=== PATIENT | male | born 1960 | race Caucasian/White ===

== ENCOUNTER 2023-01-10 08:17 | Outpatient (OUT) | payer OTHER, SELFPAY ==
[2023-01-10 09:01] LABS: Creatinine Urine Random 62.55 mg/dL (20.00-300.00); Microalbum Creatinine Ratio Ur 65.5 mg/g (0.0-29.9); Microalbumin Urine Random 4.1 mg/dL (<=30.0)
== END 2023-01-10 08:18 | disposition home or self-care (01) ==
PROVIDERS: PCP Internal Medicine
DX: I50.22 Chronic systolic (congestive) heart failure (principal); E11.65 Type 2 diabetes mellitus with hyperglycemia; E53.8 Deficiency of other specified B group vitamins
CPT/HCPCS: 36415; 80076; 82043; 82570; 82607

== ENCOUNTER 2023-01-10 08:18 | Outpatient (OUT) | payer OTHER, SELFPAY ==
[2023-01-10 09:46] LABS: Alanine Aminotransferase 47 U/L (16-63); Albumin Globulin Ratio 0.8; Albumin Level 3.4 g/dL (3.4-5.0); Alkaline Phosphatase 108 U/L (46-116); Aspartate Amino Transferase 27 U/L (15-37); Bilirubin Direct 0.1 mg/dL (0.0-0.2); Bilirubin Total 0.4 mg/dL (0.2-1.0); Globulin 4.3 g/dL; Total Protein 7.7 g/dL (6.4-8.2)
== END 2023-01-10 08:19 | disposition home or self-care (01) ==
PROVIDERS: PCP Internal Medicine; Visit Provider Nurse Practitioner
DX: I50.22 Chronic systolic (congestive) heart failure (principal)
CPT/HCPCS: 36415; 80076

== ENCOUNTER 2023-01-20 16:17 | Outpatient (OUT) | payer OTHER, SELFPAY ==
--- NOTE | 2023-01-20 16:38 | XR_ITS ---
The [address] [address] Patient Name: CADEN WILLS MRN: [id number] date: 1960 Sex: M Assigned Patient Location: [facility] Current Patient Location: Accession/Order Number: [id number] Exam Date: 01/20/2023 16:30 Report Date: 01/21/2023 13:44 At the request of: SJ ACEVES Procedure: XR finger RT min 2V EXAM: XR finger RT min 2V HISTORY: CRUSHING INJURY OF RIGHT INDEX FINGER COMPARISON: None. TECHNIQUE: 3 views FINDINGS: Subcutaneous soft tissue edema. No fracture, dislocation, subluxation, osseous lesion or radiodense foreign body. Osteophytes of the distal phalanx. Joint spaces are otherwise unremarkable for patient's age. XR/XR finger RT min 2V IMPRESSION: No visualized acute abnormality Electronically authenticated by: STORM BELTRAN Date: 01/21/2023 13:44
== END 2023-01-20 16:18 | disposition home or self-care (01) ==
LOC: RAD 16:19
PROVIDERS: PCP Internal Medicine; Visit Provider Internal Medicine
DX: S67.190A Crushing injury of right index finger, initial encounter (principal)
CPT/HCPCS: 73140

== ENCOUNTER 2023-02-21 15:00 | Outpatient (OUT) | payer OTHER, SELFPAY | END 2023-02-21 15:01 | disposition home or self-care (01) | LOC: WC 15:01 | PROVIDERS: PCP Internal Medicine; Visit Provider Podiatrist Foot & Ankle Surgery | DX: E11.621 Type 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 with foot ulcer (principal); L97.522 Non-pressure chronic ulcer of other part of left foot with fat layer exposed | CPT/HCPCS: 11042; G0463 ==

== ENCOUNTER 2023-03-21 09:23 | Outpatient (OUT) | payer OTHER, SELFPAY | END 2023-03-21 09:24 | disposition home or self-care (01) | LOC: WC 09:23 | PROVIDERS: PCP Internal Medicine; Visit Provider Podiatrist Foot & Ankle Surgery | DX: E11.621 Type 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 with foot ulcer (principal); L97.522 Non-pressure chronic ulcer of other part of left foot with fat layer exposed | CPT/HCPCS: 11042 ==

== ENCOUNTER 2023-04-18 09:54 | Outpatient (OUT) | payer OTHER, SELFPAY ==
--- OUTSIDE RECORDS SUMMARY | 2023-04-18 09:58 | XMS_ITS | CCD ---
Author Name Unknown Address [address] [place] [address] Organization [facility] Care Team Providers Care Sales And Service Technician Name Role Phone Yamilex Gottlieb Unavailable Celestina Greene Unavailable DO Fahad Salinas Primary Care Provider [phone] JAKE Gottlieb Attending Provider [phone] F[address]ad Sal[address] Un[address] DR FAHAD SALINAS Primary Care Unavailable VICKEY LANE Attending Unavailable VICKEY LANE Admitting Unavailable DARNELL OVALLE Attending Unavailable DARNELL OVALLE Admitting Unavailable BALL, DR GUSTAFSON Primary Care Unavailable WEST, DR STORM Coffey Consulting Unavailable DARNELL OVALLE Consulting Unavailable BALL, DR GUSTAFSON Admitting Unavailable BALL, DR GUSTAFSON Primary Care Unavailable BALL, DR GUSTAFSON Attending Unavailable HIGHLANDERDAMIAN Admitting Unavailable BALL, DR GUSTAFSON Primary Care Unavailable HIGHLDAMIAN SEGUNDO Attending Unavailable HIGHLDAMIAN SEGUNDO Attending Unavailable YOLA, DR GUSTAFSON Primary Care Unavailable DAMIAN ONTIVEROS Admitting Unavailable BALL, DR GUSTAFSON Primary Care Unavailable MOUKARBEL, DR COTTRELL Attending Unavailable MOUKARBEL, DR COTTRELL Admitting Unavailable REQUEST, DR GUZMAN LISTED Consulting Unavaila ble BALL, DR GUSTAFSON Primary Care Unavailable MOUKARBEL, DR COTTRELL Consulting Unavailable MOUKARBEL, DR COTTRELL Attending Unavailable MOUKARBEL, DR COTTRELL Admitting Unavailable MOUKARBEL, DR COTTRELL Admitting Unavailable MOUKARBEL, DR COTTRELL Attending Unavailable BALL, DR GUSTAFSON Primary Care Unavailable BALL, DR GUSTAFSON Primary Care Unavailable MOUKARBEL, DR COTTRELL Attending Unavailable MOUKARBEL, DR COTTRELL Admitting Unavailable BALL, DR GUSTAFSON Consulting Unavailable BALL, DR GUSTAFSON Primary Care Unavailable MOUKARBEL, DR COTTRELL Admitting Unavailable MOUKARBEL, DR COTTRELL Consulting Unavailable MOUKARBEL, DR COTTRELL Attending Unavailable BALL, DR GUSTAFSON Primary Care Unavailable BALL, DR GUSTAFSON Attending Unavailable BALL, DR GUSTAFSON Admitting Unavailable BALL, DR GUSTAFSON Admitting Unavailable BALL, DR GUSTAFSON Primary Care Unavailable BALL, DR GUSTAFSON Consulting Unavailable BALL, DR GUSTAFSON Attending Unavailable Zieblindsey, Heavenly Consulting Unavailable BALL, DR GUSTAFSON Primary Care Unavailable MISC, DR PARRY Consulting Unavailable MISC, DR PARRY Attending Unavailable MISC, DR PARRY Admitting Unavailable BALL, DR GUSTAFSON Primary Care Unavailable DOMINGO, VICKEY Admitting Unavailable DOMINGO, VICKEY Attending Unavailable Zieblindsey, Heavenly Consulting Unavailable DOMINGO, VICKEY Consulting Unavailable BALL, DR GUSTAFSON Primary Care Unavailable MOUKARBEL, DR COTTRELL Consulting Unavailable MOUKARBCHAPO, DR COTTRELL Attending Unavailable MOUKAROSIEEL, DR COTTRELL Admitting Unavailable HIGHLANDER, DAMIAN Medrano Admitting Unavailable BALL, DR GUSTAFSON Primary Care Unavailable KAREEN, DAMIAN Medrano Attending Unavailable MOSAURABH, SIMBA Attending Unavailable ROBYN NEGRON Attending Unavailable RESEARCH, COORDINATOR Attending Unavailmicki CURRAN, SIMBA Attending Unavailable JOCE HOOKS Attending Unavailable Yarelis Santacruz Unavailable Yamilex Gottlieb Attending Unavailable Yamilex Gottlieb Admitting Unavailable Yola, Fahad Primary Care Unavailable YAMILEX GOTTLIEB Primary Care Physician YAMILEX GOTTLIEB Referring Unavailable Isaak HACKETT Attending Unavailable Allergies Allergy Classification Reported Allergen(s) Allergy Type Date of Onset Reaction(s) Facility (20 sources) empagliflozin Drug Allergy uti [facility] Other (20 sources) icosapent ethyl Drug Allergy n/v [facility] Other Medications Current Medications Medication Drug Class(es) Dates Sig (Normalized) Sig (Original) amiodarone hydrochloride 200 mg oral tablet (16 sources) Antiarrhythmic take 1 tablet by mouth every twenty-four hours Amiodarone HCl 200 MG 1 tablet Orally Once a day Active amoxicillin 875 mg / clavulanate 125 mg oral tablet (2 sources) Penicillin-class Antibacterial Start: 01-20-2023 take 1 tablet by mouth every twelve hours Amoxicillin-Pot Clavulanate 875-125 MG 1 tablet Orally every 12 hrs for 7 days Jan, Active apixaban 5 mg oral tablet (16 sources) Factor Xa Inhibitor take 1 tablet by mouth every twelve hours Eliquis 5 MG 1 tablet Orally Twice a day Active aspirin 81 mg delayed release oral tablet (17 sources) Platelet Aggregation Inhibitor, Nonsteroidal Anti-inflammatory Drug Start: 06-26-2018 Aspirin (Lucio Low Dose Aspirin) 81 mg Tablet,Delayed Release (Dr/Ec) Active 81 MG PO Daily June 26, 2018 12:00am take 1 tablet by mouth once benigno y Aspirin 81 81 MG 1 tablet Orally Once a day Active take 1 tablet by mouth once benigno y Aspirin 81 81 MG 1 tablet Orally Once a day Active atenolol 25 mg oral tablet (11 sources) beta-Adrenergic Radhika Start: 06-26-2018 Atenolol Active 25 MG PO 1200 June 26, 2018 12:00am atorvastatin 80 mg oral tablet (17 sources) HMG-CoA Reductase Inhibitor Start: 03-22-2023 atorvastatin 80 mg Tab Refills(s) 0 Start Date: 03/22/23 Status: Ordered bumetanide 1 mg oral tablet (2 sources) Loop Diuretic take 1 tablet by mouth once daily Bumex 1 MG 1 tablet Orally Once a day Active canagliflozin 300 mg oral tablet (1 source) Sodium-Glucose Cotransporter 2 Inhibitor Start: 06-26-2018 Canagliflozin Active 300 MG PO 1200 June 26, 2018 12:00am cinnamon bark 500 mg oral capsule (1 source) Start: 06-26-2018 take 1 capsule by mouth twice daily Cinnamon Bark (Cinnamon) 500 mg Capsule Active 500 MG PO Twice daily June 26, 2018 12:00am clopidogrel 75 mg oral tablet (12 sources) P2Y12 Platelet Inhibitor Start: 03-22-2023 clopidogrel 75 mg Tab Refills(s) 0 Start Date: 03/22/23 Status: Ordered Start: 06-26-2018 Clopidogrel Ac tive 75 MG PO 1200 June 26, 2018 12:00am dapagliflozin 10 mg oral tablet (17 sources) Sodium-Glucose Cotransporter 2 Inhibitor Start: 03-22-2023 Farxiga 10 mg oral tablet Refills(s) 0 Start Date: 03/22/23 Status: Ordered famotidine 40 mg oral tablet (14 sources) Histamine-2 Receptor Antagonist Start: 05-04-2022 take 1 tablet by mouth every twenty-four hours Famotidine 40 MG 1 tablet at bedtime Orally Once a day Apr, Active fenofibrate 145 mg oral tablet (11 sources) Peroxisome Proliferator Receptor alpha Agonist Start: 06-26-2018 Fenofibrate Nanocrystallized Active 145 MG PO 1200 June 26, 2018 12:00am Fish Oils (16 sources) Fish Oil Active FreeStyle Shivani 2 Sensor - (19 sources) Start: 01-06-2021 FreeStyle Shivani 2 Sensor - as directed In Vitro Change Every 14 days for 84 days Dec, Active FreeStyle Shivani 2 Sensor - CHANGE EVERY 14 DAYS for 84 Active hydroCHLOROthiazide 25 mg oral tablet (11 sources) Thiazide Diuretic Start: 06-26-2018 Hydrochlorothiazide Active 25 MG PO 1200 June 26, 2018 12:00am 3 ml insulin aspart, human 100 unt/ml pen injector (15 sources) Insulin Analog Start: 06-26-2018 Insulin Aspart U-100 Active June 26, 2018 12:00am NovoLOG FlexPen 100 UNIT/ML 32 units ac breakfast and 38 units ac supper plus corrective scale 1:10 ac tid (hs if >200 half dose) titrate up to 90 units/day) Subcutaneous As Directed for 90 day(s) Not-Taking 3 ml insulin glargine 300 unt/ml pen injector (20 sources) Insulin Analog Start: 03-22-2023 Toujeo Max Rosanna oStar 300 units/mL subcutaneous solution Refills(s) 0 Start Date: 03/22/23 Status: Ordered Start: 06-26-2018 inject 60 [IU] by gorman bcutaneous injection once daily at bedtime Insulin Glargine U-300 Conc Active 60 UNIT SUBCUT Daily at bedtime June 26, 2018 12:00am Toujeo Max SoloS tar 300 UNIT/ML 72 units Subcutaneous qd (titrate up to 90 units/day) Active Toujeo Max SoloS tar 300 UNIT/ML 70 units Subcutaneous qd for 90 days (titrate up to max 90 units/day) Active Toujeo Max SoloS tar 300 UNIT/ML 65 units Subcutaneous qd (titrate up to 90 units/day) Active Toujeo SoloStar 300 UNIT/ML 70 units Subcutaneous At bedtime (titrate up to 80/day) Not-Taking Toujeo Max SoloS tar 300 UNIT/ML 84 units Subcutaneous qd for 90 day(s) (titrate up to 90 units/day) Active Toujeo SoloStar 300 UNIT/ML 68 units Subcutaneous At bedtime (titrate up to 70/day) Active Toujeo SoloStar 300 UNIT/ML 66 units Subcutaneous qhs for 90 day(s) (titrate up to 70 units/day) Active Toujeo SoloStar 300 UNIT/ML 66 units Subcutaneous At bedtime (titrate up to 70/day) Active 3 ml insulin lispro-aabc 100 unt/ml pen injector (20 sources) Insulin Analog Start: 03-22-2023 Lyryan KwikPe n 100 units/mL injectable solution Refills(s) 0 Start Date: 03/22/23 Status: Ordered Start: 05-04-2021 Lyumjhv KwikPe n 100 UNIT/ML 32 units ac breakfast , 38 supper plus ISS 1: 10 ac, (hs if >200 half dose) (expect daily dose 80 units) Subcutaneous ACHS Apr, Active LEVEMIR FLEXTOUCH 100 UNIT/ ML (4 sources) LEVEMIR FLEXTOUC H 100 UNIT/ ML 42 units Subcutaneous bid Active lisinopril 10 mg oral tablet (11 sources) Angiotensin Converting Enzyme Inhibitor Start: 06-27-19 Lisinopril Active 10 MG PO 1200 June 26, 2018 12:00am magnesium oxide 400 mg oral tablet (16 sources) take 1 tablet by mouth every twenty-four hours Magnesium Oxide 400 MG 1 tablet as needed Orally Once a day Active Magnesium, Zinc, Vitamin D (1 source) Start: 06-27-19 take 1 tablet by mouth once daily at bedtime Magnesium, Zinc, Vitamin D Active 1 TAB PO Daily at bedtime June 26, 2018 12:00am metFORMIN hydrochloride 500 mg oral tablet (20 sources) Biguanide Start: 03-22-20 MetFORMIN (Eqv-Glucophage XR) 500 mg oral tablet, extended release Refills(s) 0 Start Date: 03/22/23 Status: Ordered Start: 06-26-2018 Metformin (Glu cophage) 500 mg Tablet Active 500 MG PO 0300 June 26, 2018 12:00am Start: 06-26-2018 Metformin (Glu cophage) 500 mg Tablet Active 1000 MG PO 1800 June 26, 2018 12:00am take 500 mg by mouth three times daily metFORMIN HCl ER 500 MG 500 mg Orally tid Active take 1 tablet by soledad twice daily metFORMIN HCl ER 500 MG TAKE 1 TABLET BY MOUTH TWICE A DAY for 90 Active take 500 mg by mouth four times daily metFORMIN HCl ER 500 MG 500 mg Orally qid Active 24 hr metoprolol succinate 100 mg extended release oral tablet (17 sources) beta-Adrenergic Radhika Start: 03-22-2023 take 1 mg by mouth once daily metoprolol 100 mg ER Tab mg tab(s), Oral, Daily, Refills(s) 0 Start Date: 03/22/23 Status: Ordered Multivitamin preparation (1 source) Start: 06-26-2018 take 1 tablet by mouth once daily Multivitamin Active 1 TAB PO Daily June 26, 2018 12:00am niacin 500 mg oral tablet (1 source) Nicotinic Acid Start: 06-26-2018 take 500 mg by mouth once daily at bedtime Niacin Active 500 MG PO Daily at bedtime June 26, 2018 12:00am pantoprazole 40 mg delayed release oral tablet (14 sources) Proton Pump Inhibitor Start: 03-22-[address] Tab Refills(s) 0 Start Date: 03/22/23 Status: Ordered Start: 06-17-2022 Pantoprazole S odium 40 MG 1 tablet Orally Once a day, take on empty stomach followed in 30 minutes w/ bkfst for 30 days Jun, Active sacubitril 24 mg / valsartan 26 mg oral tablet (17 sources) Angiotensin 2 Receptor Radhika Start: 03-22-2023 Entresto 24 mg-26 mg oral tablet Refill(s) 0 Start Date: 03/22/23 Status: Ordered ENTRESTO 24 mg/2 6 mg 1 orally twice a day Active sildenafil 100 mg oral tablet (10 sources) Phosphodiesterase 5 Inhibitor Start: 10-17-2022 take 1 tablet by mouth once daily as needed Sildenafil Citrate 100 MG 1 tablet Orally Once a day, as needed for ED for 30 days Oct, Active spironolactone 25 mg oral tablet (17 sources) Aldosterone Antagonist Start: 03-22-2023 spironolactone 25 mg Tab Refills(s) 0 Start Date: 03/22/23 Status: Ordered tiZANidine 4 mg oral tablet (11 sources) Central alpha-2 Adrenergic Agonist Start: 03-22-2023 tiZANidine 4 mg Tab Refills(s) 0 Start Date: 03/22/23 Status: Ordered Completed/Discontinued Medications Medication Drug Class(es) Dates Sig (Normalized) Sig (Original) ciprofloxacin 500 mg oral tablet (5 sources) Quinolone Antimicrobial Start: 08-11-2021 take 1 tablet by mouth every twelve hours Cipro 500 MG 1 tablet Orally every 12 hrs for 7 days Jul, Not-Taking empagliflozin 10 mg oral tablet (10 sources) Sodium-Glucose Cotransporter 2 Inhibitor take 1 tablet by mouth every twenty-four hours Jardiance 10 MG 1 tablet Orally Once a day for 30 day(s) Not-Taking fluconazole 150 mg oral tablet (10 sources) Azole Antifungal Start: 08-24-2020 Diflucan 150 MG 1 tablet Orally Once, repeat in 3 days if needed for 3 days August, Not-Taking pioglitazone 30 mg oral tablet (13 sources) Peroxisome Proliferator Receptor alpha Agonist, Peroxisome Proliferator Receptor gamma Agonist, Thiazolidinedione take 1 tablet by mouth once daily at bedtime Pioglitazone HCl 30 MG 1 tablet Orally Once a day at hs Not-Taking Problems Active Problems Problem Classification Problem Date Documented Da te Episodic/Chronic Abdominal pain (1 source) Epigastric pain Episodic Acute myocardial infarction (6 sources) Non-ST elevation (NSTEMI) myocardial infarction; 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: [NON-ST ELEVATION MYOCARDIAL INFARCT] Onset: 01-08-2022 Chronic Administrative/social admission (20 sources) Dietary management surveillance; 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: [Dietary counseling and surveillance] Onset: 03-24-2021 Resolved: 10-21-2021 Episodic Cardiac dysrhythmias (20 sources) Atrial fibrillation; 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: [Unspecified atrial fibrillation] Onset: 2022 Chronic Chronic ulcer of skin (1 source) Non-pressure chronic ulcer of other part of left foot limited to breakdown of skin; 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: [N-PRS ULCR OTH PRT LT FT BRKDWN SKN] Onset: 09-20-2021 Chronic Congestive heart failure; nonhypertensive (20 sources) Heart failure with normal ejection fraction; 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: [Unspecified diastolic (congestive) heart failure] Onset: 01-31-2022 Chronic Coronary atherosclerosis and other heart disease (20 sources) Coronary arteriosclerosis; 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: [Atherosclerotic heart disease of [place] coronary artery without angina pectoris] Onset: 01-06-2022 Chronic Crushing injury or internal injury (2 sources) Crushing injury of right index finger, initial encounter Episodic Diabetes mellitus with complications (20 sources) Hyperglycemia due to type 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; 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: [Type 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 with hyperglycemia] Onset: 01-06-2021 Resolved: 10-21-2021 Chronic Diabetes mellitus without complication (20 sources) Type 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 without complication; 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: [Type 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 without complications] 03-22-2023 Chronic Disorders of lipid metabolism (20 sources) Hypertriglyceridemia ; 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: [Pure hyperglyceridemia] Onset: 03-24-2021 Resolved: 10-21-2021 Chronic Esophageal disorders (13 sources) Gastro-esophageal reflux disease with esophagitis; 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: [Gastroesophageal reflux disease with esophagitis without hemorrhage] Chronic Essential hypertension (20 sources) Essential hypertension; 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: [Essential (primary) hypertension] Onset: 03-24-2021 Resolved: 10-21-2021 Chronic Genitourinary congenital anomalies (2 sources) Congenital buried penis; 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] Onset: 03-22-2023 Chronic Genitourinary symptoms and ill-defined conditions (14 sources) Dysuria; 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: [Hematuria, unspecified] Onset: 08-11-2021 Resolved: 08-11-2021 Episodic Inflammatory conditions of male genital organs (16 sources) Balanitis; 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: [Balanitis] Onset: 03-22-2023 Chronic Inflammatory conditions of male genital organs (14 sources) Acute prostatitis; 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: [Acute prostatitis] Episodic Intestinal infection (1 source) Balantidiasis 03-22-2023 Episodic Nutritional deficiencies (20 sources) Vitamin D deficiency; 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: [Vitamin D deficiency, unspecified] Chronic Nutritional deficiencies (5 sources) Deficiency of other specified B group vitamins Onset: 10-21-2021 Resolved: 10-21-2021 Episodic Open wounds of extremities (14 sources) Open wound of toe(s) with damage to nail; 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: [Unspecified open wound of unspecified toe(s) with damage to nail, subsequent encounter] Episodic Other aftercare (20 sources) Long-term current use of insulin; 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: [retirement (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] Episodic Other aftercare (8 sources) retirement (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; 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: [DETENTION CURRENT USE OF INSULIN] Onset: 03-24-2021 Resolved: 10-21-2021 Episodic Other aftercare (1 source) Long-term current use of anticoagulant; 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] Onset: 03-22-2023 Episodic Other and ill-defined heart disease (1 source) Heart disease 03-22-2023 Chronic Other connective tissue disease (15 sources) Pain in right foot; 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: [Pain in right foot] Onset: 02-24-2022 Episodic Other diseases of veins and lymphatics (14 sources) Peripheral venous insufficiency; 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: [Venous insufficiency (chronic) (peripheral)] Episodic Other diseases of veins and lymphatics (2 sources) Venous insufficiency (chronic) (peripheral) Episodic Other hereditary and degenerative nervous system conditions (1 source) Other idiopathic peripheral autonomic neuropathy; 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: [OTH IDIO PERIPH AUTONOM NEUROPATHY] Onset: 09-20-2021 Chronic Other lower respiratory disease (1 source) Chronic pulmonary edema; 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: [CHRONIC PULMONARY EDEMA] Onset: 01-06-2022 Chronic Other male genital disorders (10 sources) Erectile dysfunction co-occurrent and due to arterial insufficiency; 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: [Erectile dysfunction due to arterial insufficiency] Chronic Other male genital disorders (2 sources) Erectile dysfunction due to arterial insufficiency Chronic Other male genital disorders (12 sources) Male erectile dysfunction, unspecified; 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: [Erectile dysfunction] Onset: 03-22-2023 Chronic Other male genital disorders (2 sources) Phimosis; 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: [Phimosis] Onset: 03-22-2023 Episodic Other non-traumatic joint disorders (14 sources) Arthropathy associated with a neurological disorder; 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: [Charcot's joint, left ankle and foot] Chronic Other nutritional; endocrine; and metabolic disorders (20 sources) Obese class II; 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: [Body mass index (BMI) 37.0-37.9, adult] Chronic Other nutritional; endocrine; and metabolic disorders (20 sources) Obesity; 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: [Obesity, unspecified] Chronic Other nutritional; endocrine; and metabolic disorders (20 sources) Body mass index 40+ - severely obese; 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: [Body mass index (BMI) 40.0-44.9, adult] Chronic Other nutritional; endocrine; and metabolic disorders (5 sources) Body mass index (BMI) 40.0-44.9, adult; 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: [BODY MASS INDEX BMI 40.0-44.9 ADULT] Onset: 03-24-2021 Resolved: 10-21-2021 Chronic Other nutritional; endocrine; and metabolic disorders (14 sources) Morbid obesity; 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: [Morbid (severe) obesity due to excess calories] Chronic Other nutritional; endocrine; and metabolic disorders (3 sources) Body mass index (BMI) 39.0-39.9, adult Chronic Other nutritional; endocrine; and metabolic disorders (1 source) Obesity, unspecified; 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: [OBESITY UNSPECIFIED] Onset: 01-06-2022 Chronic Other screening for suspected conditions (not mental disorders or infectious disease) (2 sources) Encounter for screening for malignant neoplasm of prostate Episodic Skin and subcutaneous tissue infections (2 sources) Cutaneous abscess of right hand Episodic Spondylosis; intervertebral disc disorders; other back problems (15 sources) Lumbosacral spondylosis with radiculopathy; 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: [Other spondylosis with radiculopathy, lumbosacral region] Onset: 11-01-2021 Chronic Superficial injury; contusion (2 sources) Blister (nonthermal), left great toe, initial encounter; 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: [Contusion of unspecified finger with damage to nail, initial encounter] Episodic Unclassified (1 source) CONTACT W/AND (SUSP) EXPOS COVID-19; 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: [CONTACT W/AND (SUSP) EXPOS COVID-19] Onset: 01-06-2022 Unclassified (1 source) Drug therapy finding 03-22-2023 Past or Other Problems Problem Classification Problem Date Documented Da te Episodic/Chronic Complications of surgical procedures or medical care (2 sources) Other postprocedural complications and disorders of the circulatory system, not elsewhere classified; 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: [Other postprocedural complications and disorders of the circulatory system, not elsewhere classified] Onset: 2022 Episodic Coronary atherosclerosis and other heart disease (8 sources) Presence of aortocoronary bypass graft; 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: [PRESENCE AORTOCORONARY BYPASS GRAFT] Onset: 01-31-2022 Episodic Esophageal disorders (3 sources) Esophageal disorders Mycoses (1 source) Tinea unguium; 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: [TINEA UNGUIUM] Onset: 09-20-2021 Episodic Nonspecific chest pain (3 sources) Chest pain, unspecified; 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: [CHEST PAIN UNSPECIFIED] Onset: 12-31-2021 Episodic Other aftercare (1 source) retirement (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 of oral hypoglycemic drugs; 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: [DETENTION USE ORAL HYPOGLYCEMIC DX] Onset: 01-06-2022 Episodic Other connective tissue disease (3 sources) Pain in right foot; 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: [PAIN IN RIGHT FOOT] Onset: 02-28-2022 Episodic Other connective tissue disease (1 source) Pain in left foot; 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: [PAIN IN LEFT FOOT] Onset: 09-20-2021 Episodic Other skin disorders (4 sources) Nail dystrophy; 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: [NAIL DYSTROPHY] Onset: 09-09-2021 Episodic Sprains and strains (8 sources) Strain of muscle, fascia and tendon of lower back, subsequent encounter; 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: [Strain of muscle, fascia and tendon of lower back, initial encounter] Onset: 10-29-2021 Episodic Urinary tract infections (2 sources) Urinary tract infection, site not specified Onset: 08-11-2021 Resolved: 08-11-2021 Episodic Results Test Name Value Interpretation Reference Range Facility Physician Referralon 023 Physician Referral [id number] .[id number] [facility] Physician Referralon 023 Physician Referral [id number] .[id number] [facility] Physician Referralon 023 Physician Referral [id number] .[id number] Screenson 03-23-2023 Screens [id number] .[id number] Ambulatory Visit Summaryon 1 05-23-2022 Ambulatory Visit Summary CADEN WILLS :1960 Visit Date:03/22/2023 Ambulatory Visit Instructions Your Diagnosis ED (erectile dysfunction) Phimosis Hidden penis Balanoposthitis Anticoagulated Tests Performed Urnls Dip Stick Auto w/o Microscopy POC [id number] Your Care Team Attending Physician - Isaak HACKETT MD Primary Care Physician - YAMILEX GOTTLIEB CNP Referring Physician - YAMILEX GOTTLIEB CNP This Is Your Medications List Contact prescribing physician if questions or concerns atorvastatin (atorvastatin 80 mg Tab) clopidogrel (clopidogrel 75 mg Tab) dapagliflozin (Farxiga 10 mg oral tablet) insulin glargine (Toujeo Max SoloStar 300 units/mL subcutaneous solution) insulin lispro (Lyumjev KwikPen 100 units/mL injectable solution) metformin (MetFORMIN (Eqv-Glucophage XR) 500 mg oral tablet, extended release) metoprolol (metoprolol 100 mg ER Tab) pantoprazole (Pantoprazole [address] Tab) sacubitril-valsartan (Entresto 24 mg-26 mg oral tablet) spironolactone (spironolactone 25 mg Tab) tizanidine (tiZANidine 4 mg Tab) What to do next You Need to Schedule the Following Appointments Follow Up with ROXANN BARR, Isaak Sharma, ALICIA When: Where: [facility] [employer] [address] [place] [id number] Someone Will Contact You Regarding These Appointments [facility] [place] Ref[place], Urology, Dr. Duran, 03/22/23 11:49:00 EST, Phimosis Normal [facility] Patient Educationon 03-22-20 Patient Education Urology Erectile Dysfunction Erectile dysfunction (ED) is the inability to get or keep an erection in order to have sexual intercourse. ED is considered a symptom of an underlying disorder and is not considered a disease. ED may include: ? Inability to get an erection. ? Lack of enough hardness of the erection to allow penetration. ? Loss of erection before sex is finished. What are the causes? This condition may be caused by: ? Physical causes, such as: ? Artery problems. This may include heart disease, high blood pressure, atherosclerosis, and diabetes. ? Hormonal problems, such as low testosterone. ? Obesity. ? Nerve problems. This may include back or pelvic injuries, multiple sclerosis, Parkinson's disease, spinal cord injury, and stroke. ? Certain medicines, such as: ? Pain relievers. ? Antidepressants. ? Blood pressure medicines and water pills (diuretics). ? Cancer medicines. ? Antihistamines. ? Muscle relaxants. ? Lifestyle factors, such as: ? Use of drugs such as marijuana, cocaine, or opioids. ? Excessive use of alcohol. ? Smoking. ? Lack of physical activity or exercise. ? Psychological causes, such as: ? Anxiety or stress. ? Sadness or depression. ? Exhaustion. ? Fear about sexual performance. ? Guilt. What are the signs or symptoms? Symptoms of this condition include: ? Inability to get an erection. ? Lack of enough hardness of the erection to allow penetration. ? Loss of the erection before sex is finished. ? Sometimes having normal erections, but with frequent unsatisfactory episodes. ? Low sexual satisfaction in either partner due to erection problems. ? A curved penis occurring with erection. The curve may cause pain, or the penis may be too curved to allow for intercourse. ? Never having nighttime or morning erections. How is this diagnosed? This condition is often diagnosed by: ? Performing a physical exam to find other diseases or specific problems with the penis. ? Asking you detailed questions about the problem. ? Doing tests, such as: ? Blood tests to check for diabetes mellitus or high cholesterol, or to measure hormone levels. ? Other tests to check for underlying health conditions. ? An ultrasound exam to check for scarring. ? A test to check blood flow to the penis. ? Doing a sleep study at home to measure nighttime erections. How is this treated? This condition may be treated by: ? Medicines, such as: ? Medicine taken by mouth to help you achieve an erection (oral medicine). ? Hormone replacement therapy to replace low testosterone levels. ? Medicine that is injected into the penis. Your health care provider may instruct you how to give yourself these injections at home. ? Medicine that is delivered with a short applicator tube. The tube is inserted into the opening at the tip of the penis, which is the opening of the urethra. A tiny pellet of medicine is put in the urethra. The pellet dissolves and enhances erectile function. This is also called MUSE (medicated urethral system for erections) therapy. ? Vacuum pump. This is a pump with a ring on it. The pump and ring are placed on the penis and used to create pressure that helps the penis become erect. ? Penile implant surgery. In this procedure, you may receive: ? An inflatable implant. This consists of cylinders, a pump, and a reservoir. The cylinders can be inflated with a fluid that helps to create an erection, and they can be deflated after intercourse. ? A semi-rigid implant. This consists of two silicone rubber rods. The rods provide some rigidity. They are also flexible, so the penis can both curve downward in its normal position and become straight for sexual intercourse. ? Blood vessel surgery to improve blood flow to the penis. During this procedure, a blood vessel from a different part of the body is placed into the penis to allow blood to flow around (bypass) damaged or blocked blood vessels. ? Lifestyle changes, such as exercising more, losing weight, and quitting smoking. Follow these instructions at home: Medicines ? Take qifc-[id number]-osflatg and prescription medicines only as told by your health care provider. Do not increase the dosage without first discussing it with your health care provider. ? If you are using self-injections, do injections as directed by your health care provider. Make sure you avoid any veins that are on the surface of the penis. After giving an injection, apply pressure to the injection site for 5 minutes. ? Talk to your health care provider about how to prevent headaches while taking ED medicines. These medicines may cause a sudden headache due to the increase in blood flow in your body. General instructions ? Exercise regularly, as directed by your health care provider. Work with your health care provider to lose weight, if needed. ? Do not use any products that contain nicotine or tobacco. These products include cig (more content not included)... Normal [facility] Urology Office/Clinic Noteon 03-22-2023 Urology Office/Clinic Note HPI Staff 63 yo male referred by Yamilex Gottlieb CNP for ED. Never seen in our office before pt. states he had a heart attack in 2021 had spent 15 days in the hospital had bypass x5 came home with a uti and states after that he has been having issues with ED. Patient is unsure if he is circumcised states the skin on his penis is hard and would crack and bleed when he first came home Dysuria: no Incomplete bladder emptying: no Hematuria: no Frequency: no Urgency: severe Nocturia: 2x Stream: weaker stream Leaking: no Post void dripping: no Wearing pads/ Depends: no Urge incontinence: no Stress incontinence: no Incontinence without Sensory Awareness: no Abdominal pain: no Flank pain: no Sexual complaints: yes History of Present Illness Tests reviewed: reviewed UA and external records. I have reviewed the previous health record information and history for this patient from external provider. I have reviewed and verified the staff HPI to be accurate for this encounter. There have been no associated fever, chills, flank pain, or blood in the urine. Denies any urinary infections since last encounter. Review of Systems ROS - Provider Constitutional: denies weight loss, denies hot flashes. Eyes: denies eye problems. Gastrointestinal: denies nausea, denies vomiting. Cardiovascular: denies chest pain or angina. Integumentary: no dryness Musculoskeletal: denies musculoskeletal symptoms. ENMT: denies otolaryngeal symptoms. Respiratory: no shortness of breath. Heme/Lymph: denies easy bleeding tendency, denies easy bruising tendency. Psychiatric: no confusion, no anxiety. Genitourinary: See HPI. Physical Exam General Appearance: alert, no distress, well nourished, well developed male. Head: normocephalic . Eyes: normal orbit and globe. ENMT: normal examination of external ears. Chest: Lungs CTA, respirations non labored. Cardiovascular: regular rate and rhythm. Abdomen: soft, non distended, no tenderness, no mass or organomegaly, no hernia. Pannus present. Genitourinary: severe phimosis. Flank Pain: none. Bladder: nonpalpable. Penis: Prominent suprapubic fat pad. Unable to retract foreskin secondary to phimosis. Unable to evaluate the glans penis or shaft. Lymph Nodes: unremarkable palpation of the cervical area. Skin: warm, dry, no bruising. Psychiatric: cooperative, affect appropriate for age, normal judgement, euthymic mood. Assessment/Plan 63 yo male referred by Yamilex Gottlieb CNP for ED. Never seen in our office before IPSS 14 1. ED (erectile dysfunction) (N52.9: Male erectile dysfunction, unspecified) Pt states he had a heart attack in December and spent 15 days in the hospital, s/p bypass x5. Pt came home with a UTI and states after that he has been having issues with ED. Has tried Sildenafil 100mg, has only taken once and minimal improvement. Pt is diabetic which attributes to ED. Discussed options for ED, including oral medications, erection pumps, MUSE intraurethral pellet, intracorporal injection therapy, and surgical options. Pt understands phimosis and hidden penis needs to be addressed prior to treating ED. Pt to research penile ring. Recommended weight loss. 2. Phimosis (N47.1: Phimosis) Pt states he is unsure if is circumcised. Reports the skin on his penis is hard and will not retract. Phimosis started after bypass. Diabetes exacerbates sx. PE: severe phimosis, unable to retract foreskin. Hidden penis. Recommended referral to Dr. Duran. 3. 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 S/p bypass 12/2022 due to heart attack. Elevated risk for periop complications Overall this 63-year-old white male with diabetes, hypertension, and obesity, has had difficulties with the phallus ever since his coronary artery bypass procedure, after which she had a urinary tract infection. His foreskin difficulties became exacerbated after that. Physical examination reveals a hidden penis with associated phimosis and irritated inner prepuce. Unable to retract. This will be a difficult circumcision. Is my recommendation that he be seen by Dr. Jian Duran at the [facility] for his opinion. He can utilize [id number] Monistat cream/triple antibiotic on a as needed basis. We also had extensive discussion about ED but we certainly need to get the phallus accessible. He has utilized sildenafil in the past at 100 mg with some tumescence and perhaps a ring could be applied at some point pending success with the penis/foreskin issues. We did discuss that perhaps a intracarpal injection therapy could be considered at some point 2. Await Dr. Duran's opinion. Portions of this record may have been created with voice recognition artificial intelligence software, specifically [employer] and o (more content not included)... Normal [facility] Comment on above: Result Comment: Elec tronically Signed By: Isaak HACKETT MD\.br\Date and Time Signed: 03/22/23 12:07 EST\.br\Electronically Co-Signed By: Maria M Campos\.br\Date and Time Co-Signed: 03/22/23 11:53 EST A1C HEMOGLOBINon 03-08-2023 HbA1c (Bld) [Mass fraction] 7.2 % [employer] Other Glucose - FINGER STICKon Glucose [Mass/Vol] 187 mg/dL [employer] Other HbA1c (Bld) [Mass fraction]o n 03-08-2023 A1C HEMOGLOBIN [employer] Other Orders Onlyon 01-16-2023 Orders Only [id number] Caden Wills 1960 M Date Provider Department Center 01/16/2023 ROBYN CASTILLO. Family History Problem Relation Age of Onset Coronary artery disease Father Family Status - Relation Status Age at Father Normal [facility] Office Visiton 12-06-2022 Follow-up visit [id number] Caden Wills 1960 M Date Provider Department Center 12/06/2022 ROBYN CASTILLOevue Donald Family History Problem Relation Age of Onset Coronary artery disease Father Family Status - Relation Status Age at Father Level of Service:[id number] ID OFFICE/OUTPATIENT ESTABLISHED MOD MDM 30-39 MIN Reason for Visit and Comments: Follow-up [009025] - 6 month follow up Normal [facility] A1C HEMOGLOBINon 11-24-2022 HbA1c (Bld) [Mass fraction] 6.6 % [employer] Other Glucose - FINGER STICKon Glucose [Mass/Vol] 102 mg/dL [employer] Other HbA1c (Bld) [Mass fraction]o n 11-24-2022 A1C HEMOGLOBIN [employer] Other A1C HEMOGLOBINon 08-22-2022 HbA1c (Bld) [Mass fraction] 6.5 % [employer] Other Glucose - FINGER STICKon Glucose [Mass/Vol] 159 mg/dL [employer] Other HbA1c (Bld) [Mass fraction]o n 08-22-2022 A1C HEMOGLOBIN [employer] Other Office Visiton 05-23-2022 Follow-up visit [id number] Caden Wills 1960 M Date Provider Department Center 05/23/2022 SIMBA REYEZ [facility] Family History Problem Relation Age of Onset Coronary artery disease Father Family Status - Relation Status Age at Father Level of Service:[id number] ID OFFICE/OUTPATIENT ESTABLISHED MOD MDM 30-39 MIN Reason for Visit and Comments: Coronary Artery Disease [187] Hypertension [898436] Normal [facility] A1C HEMOGLOBINon 05-19-2022 HbA1c (Bld) [Mass fraction] 6.9 % [employer] Other Glucose - FINGER STICKon Glucose [Mass/Vol] 206 mg/dL [employer] Other HbA1c (Bld) [Mass fraction]o n 05-19-2022 A[facility]C [facility]GLOBIN [facility]on 04-05-2022 37 -Proceed with previously recommended heart monitor -Discontinue Bumex, monitor swelling and weight - Continue cardiac rehab Normal [facility] Office Visiton 04-05-2022 Follow-up visit [id number] Caden Wills 1960 M Date Provider Department Center 04/05/2022 [id number] BAUTISTA [facility] Family History Problem Relation Age of Onset Coronary artery disease Father Family Status - Relation Status Age at Father Level of Service:[id number] ID OFFICE/OUTPATIENT ESTABLISHED MOD MDM 30-39 MIN Reason for Visit and Comments: Coronary Artery Disease [187] Atrial Fibrillation [80] Congestive Heart Failure [127] NSTEMI [Other] Normal [facility] UA RANDOMon 04-05-2022 Bilirubin Ql (U) Negative Normal NEGATIVE [facility] Comment on above: Performed By: #### U A #### [facility] [address] [place] [address] Dr. Jose Rojas Clarity (U) CLOUDY Abnormal CLEAR [facility] Comment on above: Performed By: #### U A #### [facility] [address] [address] [address] Jose Rojas Color (U) LT. YELLOW Normal YELLOW [facility] Comment on above: Performed By: #### U A #### [facility] [address] [address] [address] Jose Rojas Glucose Ql (U) >1000 Abnormal NEGATIVE [facility] Comment on above: Performed By: #### U A #### [facility] [address] [place] [address] Dr. Jose Rojas Hemoglobin Ql (U) MODERATE Abnormal NEGATIVE [facility] Comment on above: Performed By: #### U A #### [facility] [address] [address] [address] Jose Rojas Ketones Ql (U) Negative Normal NEGATIVE [facility] Comment on above: Performed By: #### U A #### [facility] [address] [place] [address] Dr. Jose Rojas LEUKOCYTES MODERATE Abnormal NEGATIVE [facility] Comment on above: Performed By: #### U A #### [facility] [address] [place] [address] Dr. Jose Rojas Nitrite Ql (U) Negative Normal NEGATIVE [facility] Comment on above: Performed By: #### U A #### [facility] [address] [place] [address] Dr. Jose Rojas pH (U) 5.5 [pH] Normal 5-9 [facility] Comment on above: Performed By: #### U A #### [facility] [address] [place] [address] Dr. Jose Rojas SPEC GRAVITY <=1.005 Abnormal 1.005-<=1.0 25 [facility] Comment on above: Performed By: #### U A #### [facility] [address] [place] [address] Dr. Jose Rojas UA PROTEIN Negative Normal NEGATIVE/ TRACE [facility] Comment on above: Performed By: #### U A #### [facility] [address] [place] [address] Dr. Jose Rojas Urobilinogen Qn (U) 0.2 {Ritu'U}/dL Normal 0.2 - 1. 0 [facility] Comment on above: Performed By: #### U A #### [facility] [address] [address] [address] Jose Rojas ECHOCARDIO M/2D COMPLETEon 1 05-31-2021 ECHOCARDIO M/2D COMPLETE Patient: CADEN WILLS Exam Date: 03/30/2022 : 1960 Gender:M Ordering : DR SIMBA CURRAN M.D. Admission #: [id number] Family : DR FAHAD SALINAS D.O. Order #: [id number] CLICK HERE TO VIEW EXAM ECHOCARDIOGRAM REPORT PROCEDURE: CARDIO PULMONARY ECHOCARDIO M/2D COMP INDICATIONS: NSTEMI, Chronic systolic heart failure, S/P CABG 01/07/2022, H/O Stents 2007 COMPARISON: None. DESCRIPTION: COMPLETE ECHOCARDIOGRAM Real-time transthoracic echocardiography with 2D, M-mode, spectral and color flow Doppler performed. QUALITY: Technical quality was limited. 70 273# 116/68 HR 86 Lumason not utilized at this time. LEFT VENTRICLE: Normal chamber size. LV EF: Global left ventricular systolic function is difficult to assess but appears preserved; estimated ejection fraction is 55 to 60%. Unable to accurately evaluate wall motion abnormalities. Consider contrast study for better delineation of some endocardial borders. DIASTOLIC: Diastolic function is indeterminate. ATRIAL SEPTUM: Inadequately seen. LEFT ATRIUM: Mild dilatation. RIGHT ATRIUM: Mild dilatation. RIGHT VENTRICLE: Normal chamber size. Normal systolic function. TRICUSPID VALVE: Poorly seen. Normal mobility and thickness. Trivial regurgitation. Unable to calculate right sided pressures due to lack of measurable regurgitation. MITRAL VALVE: Normal mobility and thickness. No evidence of mitral valve stenosis. Trivial mitral regurgitation. AORTIC VALVE: Normal trileaflet appearance. Mildly calcified aortic valve. No evidence of aortic valve stenosis. No aortic regurgitation. AORTIC ROOT: Ascending aorta is at upper limits in size. PULMONIC VALVE: Poorly seen. Normal thickness and mobility. No stenosis. Trivial regurgitation. PERICARDIUM: No evidence of pericardial effusion. IVC: Not well visualized. CONCLUSION: Global left ventricular systolic function is difficult to assess but appears preserved; estimated ejection fraction is 55 to 60%. Unable to accurately evaluate wall motion abnormalities. Consider contrast study for better delineation of some endocardial borders. Diastolic function is indeterminate. Biatrial enlargement. The right ventricle is normal in size and systolic function. Valves are poorly seen; no significant valvular abnormalities. The ascending aorta is upper normal limits in size. Adult Echocardiography Procedure Report Left Ventricle LVEDD (3.7 - 5.6 cm): 4.69 cm, 4.78 cm LVESD (2.2 - 4.0 cm): 3.94 cm, 3.97 cm LVPW thickness (0.5 - 1.0 cm): 0.87 cm, 0.99 cm LVOT Max Gradient: 3.56 mm[Hg] Peak Velocity (LVOT): 0.94 m/s LVOT Diameter 2.29 cm, 2.46 cm Left Atrium LA Volume Index (2D A2C): 66.82 ml, 66.82 ml Left Atrium Systolic Dimension: 4.31 cm, 4.81 cm Mitral Valve MV E to A Ratio: 1.18 Mitral Valve A-Wave Peak Velocity: 0.77 m/s Mitral Valve E-Wave Peak Velocity: 0.91 m/s Right Ventricle RV Internal Diastolic Dimension: 3.86 cm Aorta AO Root Diam: 3.55 cm, 3.64 cm Ascending Ao Diam: 3.74 cm Aortic Valve AoV Area (Peak Kain): 3.92 cm2, 3.92 cm2 Peak Velocity(Antegrade Flow): 1.14 m/s Peak Gradient(Antegrade Flow): 5.18 mm[Hg] Tricuspid Valve Peak Velocity: 0.63 m/s Pulmonic Valve Peak Velocity: 1.16 m/s, 1.21 m/s Peak Gradient: 5.35 mm[Hg], 5.90 mm[Hg] Right Atrium Dictated by: Tomás Muniz M.D. on 03/31/2022 at 14:37 Approved by: Tomás Muniz M.D. on 03/31/2022 at 14:44 Normal [facility] Refillon 02-23-2022 Refill [id number] Caden Wills 1960 [facility] Provider Department Center 02/23/2022 [id number] WARD JHVCVASENDO [place] [facility] Family History Problem Relation Age of Onset Coronary artery disease Father Family Status - Relation Status Age at Father Reason for Visit and Comments: Med Refill [[id number]] Normal [facility] BNPon 02-16-2022 Natriuretic peptide B (Bld) [Mass/Vol] 335.0 pg/mL Normal <=900.0 [facility] Comment on above: Performed By: #### B ARMHOLE BASTER HAND #### [facility] [address] [place] [address] Dr. Jose Rojas CBC AUTO DIFFon 02-16-2022 BASO # 0.1 103/ul Normal 0.0-0.1 [facility] Comment on above: Performed By: #### D ATCBC #### [facility] [address] [place] [address] Dr. Jose Rojas Basophils/100 WBC (Bld) 0.7 % Normal 0.2-2.[address] [facility] Comment on above: Performed By: #### D ATCBC #### [facility] [address] [place] [address] Dr. Jose Rojas EO # 0.4 103/ul Normal 0.0-0.7 [facility] Comment on above: Performed By: #### D ATCBC #### [facility] [address] [place] [address] Dr. Jose Rojas Eosinophils/100 WBC (Bld) 3.9 % Normal 0.9-7.0 [facility] Comment on above: Performed By: #### D ATCBC #### [facility] [address] [place] [address] Dr. Jose Rojas Erythrocyte distribution width (RBC) [Ratio] 16.5 % Critically high 11.0-15.0 [facility] Comment on above: Performed By: #### D ATCBC #### [facility] [address] [place] [address] Dr. Jose Rojas Hematocrit (Bld) [Volume fraction] 44.9 % Normal 42.0-54.0 [facility] Comment on above: Performed By: #### D ATCBC #### [facility] [address] [place] [address] Dr. Jose Rojas Hemoglobin (Bld) [Mass/Vol] 14.3 g/dL Normal 14.0-18.0 [facility] Comment on above: Performed By: #### D ATCBC #### [facility] [address] [address] [address] Jose Rojas IG # 0.33 10e3/ul Critically high 0.00-0.03 [facility] Comment on above: Performed By: #### D ATCBC #### [facility] [address] [address] [address] Jose Rojas IG % 3.5 % Critically high 0.0-0.5 [facility] Comment on above: Performed By: #### D ATCBC #### [facility] [address] [address] [address] Jose Rojas LYMPH # 1.9 103/ul Normal 1.2-3.8 [facility] Comment on above: Performed By: #### D ATCBC #### [facility] [address] [place] [address] Dr. oJse Rojas Lymphocytes/100 WBC (Bld) 19.8 % Critically low 20.5-60.0 [facility] Comment on above: Performed By: #### D ATCBC #### [facility] [address] [place] [address] Dr. Jose Rojas MCH (RBC) [Entitic mass] 27.1 pg Normal 25.9-34.0 [facility] Comment on above: Performed By: #### D ATCBC #### [facility] [address] [place] [address] Dr. Jose Rojas MCHC (RBC) [Mass/Vol] 31.8 g/dL Normal 29.9-35.2 [facility] Comment on above: Performed By: #### D ATCBC #### [facility] [address] [place] [address] Dr. Jose Rojas MCV (RBC) [Entitic vol] 85.0 fL Normal 80.0-94.[address] [facility] Comment on above: Performed By: #### D ATCBC #### [facility] [address] [place] [address] Dr. Jose Rojas MONO # 0.9 103/ul Critically high 0.3-0.8 [facility] Comment on above: Performed By: #### D ATCBC #### [facility] [address] [address] [address] Jose Rojas Monocytes/100 WBC (Bld) 9.1 % Normal 1.7-12.[address] [facility] Comment on above: Performed By: #### D ATCBC #### [facility] [address] [address] [address] Jose Rojas NEUT # 6.0 103/ul Normal 1.4-6.5 [facility] Comment on above: Performed By: #### D ATCBC #### [facility] [address] [place] [address] Dr. Jose Rojas Neutrophils/100 WBC (Bld) 63.0 % Normal 43.0-75.0 [facility] Comment on above: Performed By: #### D ATCBC #### [facility] [address] [place] [address] Dr. Jose Rojas Platelet mean volume (Bld) [Entitic vol] 9.2 fL Critically low 9.5-13.5 [facility] Comment on above: Performed By: #### D ATCBC #### [facility] [address] [place] [address] Dr. Jose Rojas PLT 485 103/ul Critically high 150-450 [facility] Comment on above: Performed By: #### D ATCBC #### [facility] [address] [place] [address] Dr. Jose Rojas RBC 5.28 106/ul Normal 4.70-6.10 [facility] [place] Comment on above: Performed By: #### D ATCBC #### [facility] [address] [place] [address] Dr. Jose Rojas WBC 9.6 103/ul Normal 4.0-11.0 [facility] [place] Comment on above: Performed By: #### D ATCBC #### [facility] [address] [place] [address] Dr. Jose Rojas EMERSON- BMP WITH LIPIDon 2021 Anion gap [Moles/Vol] 14.3 mmol/L Normal [facility] Comment on above: Performed By: #### D ATBMP #### [facility] [address] [address] [address] Jose Rojas Calcium [Mass/Vol] 9.9 mg/dL Normal 8.5-10.1 [facility] Comment on above: Performed By: #### D ATBMP #### [facility] [address] [address] [address] Jose Rojas Chloride [Moles/Vol] 101 mmol/L Normal 98-107 [facility] [place] Comment on above: Performed By: #### D ATBMP #### [facility] [address] [address] [address] Jose Rojas Cholesterol [Mass/Vol] 110 mg/dL Normal <=200 [facility] Comment on above: Performed By: #### D ATBMP #### [facility] [address] [address] [address] Jose Rojas Cholesterol in HDL [Mass/Vol] 28 mg/dL Critically low 40-60 [facility] [place] Comment on above: Performed By: #### D ATBMP #### [facility] [address] [address] [address] Jose Rojas Cholesterol in LDL [Mass/Vol] 21.2 mg/dL Normal [facility] [place] Comment on above: Performed By: #### D ATBMP #### [facility] [address] [address] [address] Jose Rojas CO2 [Moles/Vol] 28.2 mmol/L Normal 21.0-32.0 [facility] Comment on above: Performed By: #### D ATBMP #### [facility] [address] [address] [address] Jose Rojas Creatinine [Mass/Vol] 1.14 mg/dL Normal 0.70-1.30 [facility] [place] Comment on above: Performed By: #### D ATBMP #### [facility] [address] [address] [address] Jose Rojas EGFR-AF UKRAINIAN >60 Normal >=60 [facility] Comment on above: Performed By: #### D ATBMP #### [facility] [address] [address] [address] Jose Rojas EGFR-NON AF UKRAINIAN >60 Normal >=60 [facility] [place] Comment on above: Performed By: #### D ATBMP #### [facility] [address] [address] [address] Jose Rojas Glucose [Mass/Vol] 254 mg/dL Critically high 74-106 [facility] Comment on above: Performed By: #### D ATBMP #### [facility] [address] [address] [address] Jose Rojas HDL NORMAL > or = 60 mg/dl - LO W CARDIOVASCULAR RISK <40 mg/dl - HIGH CARDIOVASCULAR RISK Normal [facility] [place] Comment on above: Performed By: #### D ATBMP #### [facility] [address] [address] [address] Jose Rojas LDL CALC NORMAL SEE BELOW Normal [facility] Comment on above: Result Comment: <100 mg/dl OPTIMAL 100 - 129 mg/dl NEAR OR ABOVE OPTIMAL 130 - 159 mg/dl BORDERLINE HIGH 160 - 189 mg/dl HIGH >190 mg/dl VERY HIGH Performed By: #### D ATBMP #### [facility] [address] [address] [address] Jose Rojas Potassium [Moles/Vol] 4.5 mmol/L Normal 3.5-5.1 [facility] [place] Comment on above: Performed By: #### D ATBMP #### [facility] [address] [address] [address] Jose Rojas Sodium [Moles/Vol] 139 mmol/L Normal 136-145 [facility] Comment on above: Performed By: #### D ATBMP #### [facility] [address] [address] [address] Jose Rojas Triglyceride [Mass/Vol] 304 mg/dL Critically high <=150 [facility] [place] Comment on above: Performed By: #### D ATBMP #### [facility] [address] [address] [address] Jose Rojas Urea nitrogen [Mass/Vol] 21.0 mg/dL Critically high 7.0-18.0 [facility] [place] Comment on above: Performed By: #### D ATBMP #### [facility] [address] [address] [address] Jose Rojas Urea nitrogen/Creatinine [Mass ratio] 18.4 mg/mg Normal [facility] [place] Comment on above: Performed By: #### D ATBMP #### [facility] [address] [address] [address] Jose Rojas VLDL CALC 60.8 mg/dL Normal [facility] [place] Comment on above: Performed By: #### D ATBMP #### [facility] [address] [address] [address] Jose Rojas Albumin [Mass/volume] in Ser um or PlasmaOrdered By: Yamilex Gottlieb on 02-11-2022 Albumin [Mass/Vol] 3.5 g/dL 3.2-5.5 [facility] Cholesterol [Mass/volume] in Serum or PlasmaOrdered By: Yamilex Gottlieb on 02-11-2022 Cholesterol [Mass/Vol] 96 mg/dL 140-200 [facility] Comment on above: Chol less than 200 m g/dl low riskChol 201-239 mg/dl borderline riskChol 240 mg/dl and greater high risk Cholesterol in LDL Calc [Mas s/Vol]Ordered By: Yamilex Gottlieb on 02-11-2022 Cholesterol in LDL [Mass/Vol] 34 mg/dL 0-100 [facility] Comment on above: LDL ATP III CLASSIFI CATIONLDL less than 100 mg/dL OptimalLDL 100-129 mg/dL Near or above optimalLDL 130-159 mg/dL Borderline highLDL 160-189 mg/dL HighLDL greater than 189 mg/dL Very high Cholesterol in VLDL Calc [Ma ss/Vol]Ordered By: Yamilex Gottlieb on 02-11-2022 Cholesterol in VLDL [Mass/Vol] 28 mg/dL [facility] Creatinine [Mass/volume] in UrineOrdered By: Yamilex Gottlieb on 02-11-2022 Creatinine (U) [Mass/Vol] 49.7 mg/dL [facility] Comment on above: No reference range e stablished Creatinine and Glomerular fi ltration rate.predicted panel (S/P/Bld)Ordered By: Yamilex Gottlieb on 02-11-2022 Creatinine [Mass/Vol] 0.85 mg/dL 0.64-1.27 [facility] Estimated glomerular filtrat ion rate (GFR) non- AmericanOrdered By: Yamilex Gottlieb on 02-11-2022 GFR/1.73 sq M.predicted among non-blacks MDRD (S/P/Bld) [Vol rate/Area] > 60 mL/Min [facility] Globulin Calc (S) [Mass/Vol] Ordered By: Yamilex Gottlieb on 02-11-2022 Globulin (S) [Mass/Vol] 3.2 g/dL F [facility] - Chemistry and C hemistry - challengeOrdered By: Yamilex Gottlieb on 02-11-2022 Cobalamin (Vitamin B12) [Mass/Vol] 227 pg/mL 180-914 [facility] No Panel InformationOrdered By: Yamilex Gottlieb on 02-11-2022 Estimated GFR () > 60 mL/Min [facility] Comment on above: GFR estimated refere nce range: According to KDOQI guidelines, <60 ml/min/1.73m2 is sufficient to diagnose a patient with chronic kidney disease. Pharmacy Creatinine Clearance (Chem N/A [facility] Protein [Mass/volume] in Ser um or PlasmaOrdered By: Yamilex Gottlieb on 02-11-2022 Protein [Mass/Vol] 6.7 g/dL 6.1-7.9 [facility] Serum or plasma alanine mccoy otransferase measurement without P-5'-P (enzymatic activiOrdered By: Yamilex Gottlieb on 02-11-2022 ALT No additional P-5'-P [Catalytic activity/Vol] 23 U/L [facility] Serum or plasma albumin/glob ulin mass ratioOrdered By: Yamilex Gottlieb on 02-11-2022 Albumin/Globulin [Mass ratio] 1.1 {ratio} [facility] Serum or plasma alkaline elle sphatase measurement (enzymatic activity/volume)Ordered By: Yamilex Gottlieb on 02-11-2022 ALP [Catalytic activity/Vol] 82 U/L 32-92 [facility] Serum or plasma anion gap de terminationOrdered By: Yamilex Gottlieb on 02-11-2022 Anion gap [Moles/Vol] 15.4 mmol/L 6.0-15.0 [facility] Serum or plasma aspartate am inotransferase measurement (enzymatic activity/volume)Ordered By: Yamilex Gottlieb on 02-11-2022 AST [Catalytic activity/Vol] 22 U/L 10 [facility] Serum or plasma calcium destiny urement (mass/volume)Ordered By: Yamilex Gottlieb on 02-11-2022 Calcium [Mass/Vol] 9.7 mg/dL 8.2-10.2 [facility] Serum or plasma chloride donato surement (moles/volume)Ordered By: Yamilex Gottlieb on 02-11-2022 Chloride [Moles/Vol] 101 mmol/L 95-114 [facility] Serum or plasma glucose destiny urement (mass/volume)Ordered By: Yamilex Gottlieb on 02-11-2022 Glucose [Mass/Vol] 85 mg/dL 70-100 [facility] Comment on above: ADA recommended refe rence rangeRandom Glucose Reference Range is dependent on time and content of last meal. Glucose of more than 200 mg/dL in a nonstressed, ambulatory subject supports the diagnosis of Diabetes Mellitus. Serum or plasma high density lipoprotein (HDL) cholesterol measurementOrdered By: Yamilex Gottlieb on 02-11-2022 Cholesterol in HDL [Mass/Vol] 34 mg/dL 29-71 [facility] Comment on above: HDL CHOL ATP-III CLA SSIFICATION Cardiovascular RiskHDL > or equal to 60 mg/dL LOWHDL < 40 mg/dL HIGH Serum or plasma potassium me asurement (moles/volume)Ordered By: Yamilex Gottlieb on 02-11-2022 Potassium [Moles/Vol] 4.2 mmol/L 3.5-5.1 [facility] Serum or plasma sodium measu rement (moles/volume)Ordered By: Yamilex Gottlieb on 02-11-2022 Sodium [Moles/Vol] 138 mmol/L 136-146 [facility] Serum or plasma total biliru bin measurement (mass/volume)Ordered By: Yamilex Gottlieb on 02-11-2022 Bilirubin [Mass/Vol] 0.7 mg/dL 0.3-1.2 [facility] Serum or plasma total carbon dioxide measurement (moles/volume)Ordered By: Yamilex Gottlieb on 02-11-2022 CO2 [Moles/Vol] 25.8 mmol/L 22.0-30.0 [facility] Serum or plasma total choles terol/high density lipoprotein (HDL) cholesterol mass ratOrdered By: Yamilex Gottlieb on 02-11-2022 Cholesterol.total/Radha sterol in HDL [Mass ratio] 2.8 {ratio} <5.0 [facility] Serum or plasma urea nitroge n measurement (mass/volume)Ordered By: Yamilex Gottlieb on 02-11-2022 Urea nitrogen [Mass/Vol] 16 mg/dL 9-23 [facility] Triglyceride [Mass/volume] i n Serum or PlasmaOrdered By: Yamilex Gottlieb on 02-11-2022 Triglyceride [Mass/Vol] 140 mg/dL 35-149 [facility] Comment on above: TRIG ATP III CLASSIF ICATIONTRIG less than 150 mg/dL NormalTRIG 150-199 mg/dL Borderline highTRIG 200-500 mg/dL High TRIG greater than 500 mg/dL Very highStandard traceable to the Center for Disease Conrtrol and Prevention (CDC) test method. Urine microalbumin measureme nt with detection limit of 20 mg/L or less (mass/volume)Ordered By: Yamilex Gottlieb on 02-11-2022 Albumin DL <= 20 mg/L (U) [Mass/Vol] 3.4 mg/dL 0.0-1.8 [facility] Urine microalbumin/creatinin e mass ratioOrdered By: Yamilex Gottlieb on 02-11-2022 Albumin/Creatinine DL <= 20 mg/L (U) [Mass ratio] 68.0 mg/g 0.0-30.0 [facility] Comment on above: 30-300 mg/g indicate s an increased risk for diabetic nephropathy. Greater than 300 mg/g is consistent with clinical nephropathy. (Am. J. Kidney Disease 1995, 25:107) Follow-Upon 01-31-2022 Follow-Up [id number] Caden Wills [place] 1960 M Date Provider Department Center 01/31/2022 SIMBA REYEZ Hendricks Donadl Family History Problem Relation Age of Onset Coronary artery disease Father Family Status - Relation Status Age at Father Level of Service:37511 ID OFFICE/OUTPATIENT ESTABLISHED HIGH MDM 40-54 MIN Reason for Visit and Comments: Coronary Artery Disease [187] Normal [facility] BNPon 12-31-2021 Natriuretic peptide B (Bld) [Mass/Vol] 229.0 pg/mL Normal <=900.0 [facility] [place] Comment on above: Performed By: #### B ARMHOLE BASTER HAND #### [facility] [address] [place] [address] Dr. Jose Rojas CBC AUTO DIFFon 12-31-2021 BASO # 0.1 103/ul Normal 0.0-0.1 [facility] [place] Comment on above: Performed By: #### D ATCBC #### [facility] [address] [place] [address] Dr. Jose Rojas Basophils/100 WBC (Bld) 0.5 % Normal 0.2-2.[address] [facility] Comment on above: Performed By: #### D ATCBC #### [facility] [address] [place] [address] Dr. Jose Rojas EO # 0.1 103/ul Normal 0.0-0.7 [facility] [place] Comment on above: Performed By: #### D ATCBC #### [facility] [address] [place] [address] Dr. Jose Rojas Eosinophils/100 WBC (Bld) 1.0 % Normal 0.9-7.0 [facility] [place] Comment on above: Performed By: #### D ATCBC #### [facility] [address] [place] [address] Dr. Jose Rojas Erythrocyte distribution width (RBC) [Ratio] 15.1 % Critically high 11.0-15.0 [facility] [place] Comment on above: Performed By: #### D ATCBC #### [facility] [address] [place] [address] Dr. Jose Rojas Hematocrit (Bld) [Volume fraction] 49.2 % Normal 42.0-54.0 [facility] [place] Comment on above: Performed By: #### D ATCBC #### [facility] [address] [place] [address] Dr. Jose Rojas Hemoglobin (Bld) [Mass/Vol] 16.1 g/dL Normal 14.0-18.0 [facility] [place] Comment on above: Performed By: #### D ATCBC #### [facility] [address] [place] [address] Dr. Jose Rojas IG # 0.07 10e3/ul Critically high 0.00-0.03 [facility] Comment on above: Performed By: #### D ATCBC #### [facility] [address] [place] [address] Dr. Jose Rojas IG % 0.7 % Critically high 0.0-0.5 [facility] Comment on above: Performed By: #### D ATCBC #### [facility] [address] [place] [address] Dr. Jose Rojas LYMPH # 2.1 103/ul Normal 1.2-3.8 [facility] [place] Comment on above: Performed By: #### D ATCBC #### [facility] [address] [place] [address] Dr. Jose Rojas Lymphocytes/100 WBC (Bld) 22.2 % Normal 20.5-60.0 [facility] [place] Comment on above: Performed By: #### D ATCBC #### [facility] [address] [place] [address] Dr. Jose Rojas MANUAL DIFF REQ NO Normal [facility] Comment on above: Performed By: #### D ATCBC #### [facility] [address] [place] [address] Dr. Jose Rojas MCH (RBC) [Entitic mass] 28.0 pg Normal 25.9-34.0 [facility] [place] Comment on above: Performed By: #### D ATCBC #### [facility] [address] [place] [address] Dr. Jose Rojas MCHC (RBC) [Mass/Vol] 32.7 g/dL Normal 29.9-35.2 [facility] [place] Comment on above: Performed By: #### D ATCBC #### [facility] [address] [address] [address] Jose Rojas MCV (RBC) [Entitic vol] 85.6 fL Normal 80.0-94.[address] [facility] Comment on above: Performed By: #### D ATCBC #### [facility] [address] [address] [address] Jose Rojas MONO # 1.0 103/ul Critically high 0.3-0.8 [facility] Comment on above: Performed By: #### D ATCBC #### [facility] [address] [place] [address] Dr. Jose Rojas Monocytes/100 WBC (Bld) 10.2 % Normal 1.7-12.[address] [facility] Comment on above: Performed By: #### D ATCBC #### [facility] [address] [address] [address] Jose Rojas NEUT # 6.3 103/ul Normal 1.4-6.5 [facility] [place] Comment on above: Performed By: #### D ATCBC #### [facility] [address] [place] [address] Dr. Jose Rojas Neutrophils/100 WBC (Bld) 65.4 % Normal 43.0-75.0 [facility] [place] Comment on above: Performed By: #### D ATCBC #### [facility] [address] [address] [address] Jose Rojas Platelet mean volume (Bld) [Entitic vol] 9.4 fL Critically low 9.5-13.5 [facility] [place] Comment on above: Performed By: #### D ATCBC #### [facility] [address] [address] [address] Jose Rojas PLT 353 103/ul Normal 150-450 [facility] Comment on above: Performed By: #### D ATCBC #### [facility] [address] [place] [address] Dr. Jose Rojas RBC 5.75 106/ul Normal 4.70-6.10 [facility] Comment on above: Performed By: #### D ATCBC #### [facility] [address] [place] [address] Dr. Jose Rojas WBC 9.6 103/ul Normal 4.0-11.0 [facility] [place] Comment on above: Performed By: #### D ATCBC #### [facility] [address] [place] [address] Dr. Jose Rojas Covid-19 PCR (CVDTBH)on 12-16 SARS-CoV-2 (COVID-19) RNA PRASHANT+probe Ql (Unsp spec) Not detected Normal NOT DETECTED [facility] Comment on above: Result Comment: When diagnostic testing is negative, the possibility of a false negative should be considered in the context of a patient's recent exposures and the presence of clinical signs and symptoms consistent with SARS-CoV-2. This test is not yet approved or cleared by the [place] FDA. When there are no FDA-approved or cleared tests available, and other criteria are met, FDA can make tests available under an emergency access mechanism called an Emergency Use Authorization (EUA). The EUA for this test is supported by the [place] of Health and Human Service's declaration that circumstances exist to justify the emergency use of in vitro diagnostics for the detection and/or diagnosis of the virus that causes COVID-19. This EUA will remain in effect for the duration of the COVID-19 declaration justifying emergency of IVDs, unless it is terminated or revoked by the FDA (after which the test may no longer be used). Performed By: #### C VDTBH #### [facility] [address] [place] [address] Dr. Jose Rojas PROF CHEM 8 (BAS METB)on Anion gap [Moles/Vol] 14.0 mmol/L Normal [facility] Comment on above: Performed By: #### H STROPN, BMP #### [facility] [address] [place] [address] Dr. Jose Rojas Calcium [Mass/Vol] 9.5 mg/dL Normal 8.5-10.1 [facility] Comment on above: Performed By: #### H STROPN, BMP #### [facility] [address] [address] [address] Jose Rojas Chloride [Moles/Vol] 100 mmol/L Normal 98-107 [facility] [place] Comment on above: Performed By: #### H STROPN, BMP #### [facility] [address] [address] [address] Jose Rojas CO2 [Moles/Vol] 26.9 mmol/L Normal 21.0-32.0 [facility] Comment on above: Performed By: #### H STROPN, BMP #### [facility] [address] [place] [address] Dr. Jose Rojas Creatinine [Mass/Vol] 1.06 mg/dL Normal 0.70-1.30 [facility] [place] Comment on above: Performed By: #### H STROPN, BMP #### [facility] [address] [place] [address] Dr. Jose Rojas EGFR-AF UKRAINIAN >60 Normal >=60 [facility] Comment on above: Performed By: #### H STROPN, BMP #### [facility] [address] [place] [address] Dr. Jose Rojas EGFR-NON AF UKRAINIAN >60 Normal >=60 [facility] [place] Comment on above: Performed By: #### H STROPN, BMP #### [facility] [address] [place] [address] Dr. Jose Rojas Glucose [Mass/Vol] 152 mg/dL Critically high 74-[address] [facility] Comment on above: Performed By: #### H STROPN, BMP #### [facility] [address] [address] [address] Jose Rojas Potassium [Moles/Vol] 3.9 mmol/L Normal 3.5-5.1 [facility] [place] Comment on above: Performed By: #### H STROPN, BMP #### [facility] [address] [place] [address] Dr. Jose Rojas Sodium [Moles/Vol] 137 mmol/L Normal 136-145 [facility] Comment on above: Performed By: #### H TOMMY, BMP #### [facility] [address] [place] [address] Dr. Jose Rojas Urea nitrogen [Mass/Vol] 19.0 mg/dL Critically high 7.0-18.0 [facility] [place] Comment on above: Performed By: #### H TOMMY, BMP #### [facility] [address] [place] [address] Dr. Jose Rojas Urea nitrogen/Creatinine [Mass ratio] 17.9 mg/mg Normal [facility] [place] Comment on above: Performed By: #### H TOMMY, BMP #### [facility] [address] [place] [address] Dr. Jose Rojas TROPONIN, HIGH SENSITIVITYon 12-31-2021 HSTROP 6144.5 pg/mL Critically high 4.0-76.1 [facility] Comment on above: Result Comment: CUT- OFF POINTS HAVE BEEN ESTABLISHED BASED ON THE FOURTH UNIVERSAL DEFINITIONS OF MYOCARDIAL INFARCTION. THE UPPER REFERENCE LIMIT (URL) OF TROPONIN, DEFINED THE 99TH PERCENTILE OF cTnI DISTRIBUTION IN A REFERENCE POPULATION, HAS BEEN CONFIRMED THE DECISION THRESHOLD FOR NC DIAGNOSIS. Performed By: #### H TOMMY #### [facility] [address] [place] [address] Dr. Jose Rojas HSTROP 142.5 pg/mL Critically high 4.0-76.1 [facility] Comment on above: Result Comment: CUT- OFF POINTS HAVE BEEN ESTABLISHED BASED ON THE FOURTH UNIVERSAL DEFINITIONS OF MYOCARDIAL INFARCTION. THE UPPER REFERENCE LIMIT (URL) OF TROPONIN, DEFINED THE 99TH PERCENTILE OF cTnI DISTRIBUTION IN A REFERENCE POPULATION, HAS BEEN CONFIRMED THE DECISION THRESHOLD FOR NC DIAGNOSIS. Performed By: #### H TOMMY, BMP #### [facility] [address] [place] [address] Dr. Jose Rojas XR CHEST 1 Von 12-31-2021 XR CHEST 1 V EXAMINATION: XR CHES T 1 V HISTORY: CHEST PAIN, UNSPECIFIED COMPARISON: No relevant comparison available. TECHNIQUE: AP portable erect FINDINGS: LUNGS: Moderate diffuse opacities with a perihilar distribution. Peripheral intralobular septal thickening VASCULATURE: No increased pulmonary vasculature. PLEURA: No pneumothorax, effusion, or pleural thickening. CARDIAC: No cardiomegaly or cardiac silhouette abnormality. MEDIASTINUM: No visible mass or adenopathy. BONES: No fracture or visible bone lesion. OTHER: Negative. IMPRESSION: Findings suggesting pulmonary edema Electronically authenticated by: STORM CONDE Date: 2021-12-31 13:54 Normal [facility] [place] XR LSPINE 2_3 VIEWSon 2021 XR LSPINE 2_3 VIEWS EXAMINATION: XR LSPINE 2_3 VIEWS HISTORY: Low back strain ; low back pain radiating into both legs for 2 months COMPARISON: No relevant comparison available. FINDINGS: BONES: Mild/moderate degenerative facet arthropathy L4-L5, L5-S1. No fracture or spondylolisthesis. DISC SPACES: Mild narrowing at all lumbar levels. Mild bone encroachment on the L4-L5 neural foramen. PARASPINOUS: Negative. No paraspinous abnormality is seen. OTHER: Negative. IMPRESSION: 1. Multilevel mild-moderate degenerative disc disease and degenerative facet arthropathy. Consider MRI for further evaluation. Electronically authenticated by: HEAVENLY LOUIS Date: 2021-10-31 08:51 Normal [facility] [place] A1C HEMOGLOBINon 10-21-2021 HbA1c (Bld) [Mass fraction] 7.5 % [employer] Other Glucose - FINGER STICKon Glucose [Mass/Vol] 107 mg/dL [employer] Other HbA1c (Bld) [Mass fraction]o n 10-21-2021 A1C HEMOGLOBIN [employer] Other Urinalysis - AUTOMATEDon Appearance (U) cloudy [employer] Other Bilirubin Ql (U) Negative [employer] Other Color (U) yellow [employer] Other Glucose Ql (U) 500 [employer] Other Hemoglobin Ql (U) moderate [employer] Other Ketones Ql (U) Negative [employer] Other Leukocyte esterase Test strip Ql (U) moderate [employer] Other Nitrite Ql (U) Positive [employer] Other pH (U) 6.0 [pH] [employer] Other Protein Ql (U) trace [employer] Other Specific gravity (U) [Rel density] 1.025 [employer] Other Urobilinogen (U) [Mass/Vol] 0.2 mg/dL [employer] Other Urinalysis - AUTOMATED No rt [employer] Other Urine Cultureon 08-11-2021 Bacteria identified Cx Nom (U) [employer] Other A1C HEMOGLOBINon 06-29-2021 HbA1c (Bld) [Mass fraction] 7.4 % [employer] Other Glucose - FINGER STICKon Glucose [Mass/Vol] 168 mg/dL [employer] Other HbA1c (Bld) [Mass fraction]o n 06-29-2021 A1C HEMOGLOBIN [employer] Other A1C HEMOGLOBINon 03-24-2021 HbA1c (Bld) [Mass fraction] 6.6 % [employer] Other Glucose - FINGER STICKon Glucose [Mass/Vol] 171 mg/dL [employer] Other HbA1c (Bld) [Mass fraction]o n 03-24-2021 A1C HEMOGLOBIN [employer] Other Vital Signs Date Time Vital Sign Value Performing Clinician Facility 03-22-2023 11:46-0500 Blood Pressure Location Isaak [facility] 03-22-2023 11:46-0500 Diastolic blood pressure 71 mm[Hg] Isaak HACKETT [facility] 03-22-2023 11:46-0500 Heart rate 69 /min Isaak HACKETT [facility] 03-22-2023 11:46-0500 Systolic blood pressure 111 mm[Hg] Isaak HACKETT [facility] 03-08-2023 16:15-0500 Body height 177.8 cm Tondra Mapus Other [employer] Other 03-08-2023 16:15-0500 Body mass index (BMI) [Ratio] 39.65 kg/m2 Tondra Mapus Other [facility] Other 03-08-2023 16:15-0500 Body weight 125.38 kg Tondra Mapus Other [employer] Other 03-08-2023 16:15-0500 Diastolic blood pressure 72 mm[Hg] Tondra Mapus Other [employer] Other 03-08-2023 16:15-0500 Respiratory rate 18 /min Tondra Mapus Other [employer] Other 03-08-2023 16:15-0500 SaO2% (BldA) [Mass fraction] 96 % Tondra Mapus Other [employer] Other 03-08-2023 16:15-0500 Systolic blood pressure 127 mm[Hg] Tondra Mapus Other [employer] Other 01-20-2023 14:45-0400 Body height 177.8 cm Fahad Ball Other [employer] Other 01-20-2023 14:45-0400 Body mass index (BMI) [Ratio] 39.17 kg/m2 Fahad Ball Other [employer] Other 01-20-2023 14:45-0400 Body weight 123.83 kg Fahad Ball Other [employer] Other 01-20-2023 14:45-0400 Diastolic blood pressure 74 mm[Hg] Fahad Ball Other [employer] Other 01-20-2023 14:45-0400 Respiratory rate 18 /min Fahad Ball Other [employer] Other 01-20-2023 14:45-0400 Systolic blood pressure 118 mm[Hg] Fahad Ball Other [employer] Other 11-24-2022 15:30-0400 Body height 177.8 cm Tondra Mapus Other [employer] Other 11-24-2022 15:30-0400 Body mass index (BMI) [Ratio] 39.22 kg/m2 Tondra Mapus Other [employer] Other 11-24-2022 15:30-0400 Body weight 124.01 kg Tondra Mapus Other [employer] Other 11-24-2022 15:30-0400 Diastolic blood pressure 65 mm[Hg] Tondra Mapus Other [employer] Other 11-24-2022 15:30-0400 Respiratory rate 18 /min Tondra Mapus Other [employer] Other 11-24-2022 15:30-0400 SaO2% (BldA) [Mass fraction] 95 % Tondra Mapus Other [employer] Other 11-24-2022 15:30-0400 Systolic blood pressure 109 mm[Hg] Tondra Mapus Other [employer] Other 10-17-2022 15:30-0400 Body height 177.8 cm Fahad Ball Other [employer] Other 10-17-2022 15:30-0400 Body mass index (BMI) [Ratio] 39.6 kg/m2 Fahad Ball Other [employer] Other 10-17-2022 15:30-0400 Body weight 125.19 kg Fahad Ball Other [facility] Other 10-17-2022 15:30-0400 Diastolic blood pressure 66 mm[Hg] Fahad Ball Other [employer] Other 10-17-2022 15:30-0400 Respiratory rate 16 /min Fahad Ball Other [employer] Other 10-17-2022 15:30-0400 Systolic blood pressure 108 mm[Hg] Fahad Ball Other [employer] Other 08-22-2022 16:30-0400 Body height 177.8 cm Tondra Mapus Other [employer] Other 08-22-2022 16:30-0400 Body mass index (BMI) [Ratio] 39.93 kg/m2 Tondra Mapus Other [employer] Other 08-22-2022 16:30-0400 Body weight 126.24 kg Tondra Mapus Other [employer] Other 08-22-2022 16:30-0400 Diastolic blood pressure 70 mm[Hg] Tondra Mapus Other [employer] Other 08-22-2022 16:30-0400 Respiratory rate 18 /min Tondra Mapus Other [employer] Other 08-22-2022 16:30-0400 SaO2% (BldA) [Mass fraction] 94 % Tondra Mapus Other [employer] Other 08-22-2022 16:30-0400 Systolic blood pressure 111 mm[Hg] Tondra Mapus Other [employer] Other 07-18-2022 16:30-0400 Body height 177.8 cm Fahad Ball Other [employer] Other 07-18-2022 16:30-0400 Body mass index (BMI) [Ratio] 40.2 kg/m2 Fahad Ball Other [facility] Other 07-18-2022 16:30-0400 Body weight 127.1 kg Fahad Ball Other [facility] Other 07-18-2022 16:30-0400 Diastolic blood pressure 71 mm[Hg] Fahad Ball Other [employer] Other 07-18-2022 16:30-0400 Respiratory rate 16 /min Fahad Ball Other [employer] Other 07-18-2022 16:30-0400 Systolic blood pressure 117 mm[Hg] Fahad Ball Other [employer] Other 05-19-2022 16:15-0500 Body height 177.8 cm Tondra Mapus Other [employer] Other 05-19-2022 16:15-0500 Body mass index (BMI) [Ratio] 40.79 kg/m2 Tondra Mapus Other [employer] Other 05-19-2022 16:15-0500 Body weight 128.96 kg Tondra Mapus Other [facility] Other 05-19-2022 16:15-0500 Diastolic blood pressure 72 mm[Hg] Tondra Mapus Other [employer] Other 05-19-2022 16:15-0500 Respiratory rate 18 /min Tondra Mapus Other [employer] Other 05-19-2022 16:15-0500 SaO2% (BldA) [Mass fraction] 93 % Tondra Mapus Other [employer] Other 05-19-2022 16:15-0500 Systolic blood pressure 131 mm[Hg] Tondra Mapus Other [employer] Other 05-04-2022 16:30-0500 Body height 177.8 cm Fahad Ball Other [employer] Other 05-04-2022 16:30-0500 Body mass index (BMI) [Ratio] 41.23 kg/m2 Fahad Ball Other [employer] Other 05-04-2022 16:30-0500 Body weight 130.36 kg Fahad Ball Other [employer] Other 05-04-2022 16:30-0500 Diastolic blood pressure 82 mm[Hg] Fahad Ball Other [employer] Other 05-04-2022 16:30-0500 Respiratory rate 20 /min Fahad Ball Other [employer] Other 05-04-2022 16:30-0500 Systolic blood pressure 118 mm[Hg] Fahad Ball Other [employer] Other 10-21-2021 14:45-0400 Body height 177.8 cm Tondra Mapus Other [employer] Other 10-21-2021 14:45-0400 Body mass index (BMI) [Ratio] 40.31 kg/m2 Tondra Mapus Other [employer] Other 10-21-2021 14:45-0400 Body weight 127.46 kg Tondra Mapus Other [employer] Other 10-21-2021 14:45-0400 Diastolic blood pressure 70 mm[Hg] Tondra Mapus Other [employer] Other 10-21-2021 14:45-0400 Respiratory rate 20 /min Tondra Mapus Other [employer] Other 10-21-2021 14:45-0400 SaO2% (BldA) [Mass fraction] 96 % Tondra Mapus Other [facility] Other 10-21-2021 14:45-0400 Systolic blood pressure 110 mm[Hg] Tondra Mapus Other [employer] Other 08-11-2021 15:15-0400 Body height 177.8 cm Celestina Greene Other [employer] Other 08-11-2021 15:15-0400 Body mass index (BMI) [Ratio] 38.74 kg/m2 Celestina Ramona Other [employer] Other 08-11-2021 15:15-0400 Body temperature 98.2 [degF] Celestina Ramona Other [employer] Other 08-11-2021 15:15-0400 Body weight 122.47 kg Celestina Talbotmond Other [facility] Other 08-11-2021 15:15-0400 Diastolic blood pressure 72 mm[Hg] Celestina Ramona Other [employer] Other 08-11-2021 15:15-0400 Respiratory rate 18 /min Celestina Ramona Other [facility] Other 08-11-2021 15:15-0400 SaO2% (BldA) [Mass fraction] 99 % Celestina Ramona Other [facility] Other 08-11-2021 15:15-0400 Systolic blood pressure 123 mm[Hg] Celestina Ramona Other [employer] Other 06-29-2021 15:30-0400 Body height 177.8 cm Tondra Mapus Other [employer] Other 06-29-2021 15:30-0400 Body mass index (BMI) [Ratio] 40.89 kg/m2 Tondra Mapus Other [employer] Other 06-29-2021 15:30-0400 Body weight 129.28 kg Tondra Mapus Other [facility] Other 06-29-2021 15:30-0400 Diastolic blood pressure 75 mm[Hg] Tondra Mapus Other [employer] Other 06-29-2021 15:30-0400 Respiratory rate 20 /min Tondra Mapus Other [employer] Other 06-29-2021 15:30-0400 SaO2% (BldA) [Mass fraction] 95 % Tondra Mapus Other [employer] Other 06-29-2021 15:30-0400 Systolic blood pressure 126 mm[Hg] Tondra Mapus Other [employer] Other 03-24-2021 16:15-0500 Body height 177.8 cm Tondra Mapus Other [employer] Other 03-24-2021 16:15-0500 Body mass index (BMI) [Ratio] 40.89 kg/m2 Tondra Mapus Other [facility] Other 03-24-2021 16:15-0500 Body weight 129.28 kg Tondra Mapus Other [facility] Other 03-24-2021 16:15-0500 Diastolic blood pressure 67 mm[Hg] Tondra Mapus Other [facility] Other 03-24-2021 16:15-0500 Respiratory rate 20 /min Tondra Mapus Other [facility] Other 03-24-2021 16:15-0500 SaO2% (BldA) [Mass fraction] 97 % Tondra Mapus Other [facility] Other 03-24-2021 16:15-0500 Systolic blood pressure 115 mm[Hg] Tondra Mapus Other [facility] Other 01-06-2021 15:00-0400 Body height 177.8 cm Tondra Mapus Other [facility] Other 01-06-2021 15:00-0400 Body mass index (BMI) [Ratio] 39.81 kg/m2 Tondra Mapus Other [facility] Other 01-06-2021 15:00-0400 Body weight 125.87 kg Tondra Mapus Other [employer] Other Encounters Encounter Date Encounter Type Care Provider Facility Start: 03-30-2023 End: 03-30-2023 ambulatory Yarelis Santacruz Other [facility] Other Start: 03-30-2023 Telephone encounter Yarelis Begum [facility] Start: 03-22-2023 End: 03-23-2023 ambulatory TONDRA K MAPUS Facility:[facility] Start: 03-22-2023 End: 03-22-2023 Patient encounter procedure Isaak HACKETT [facility] Start: 03-08-2023 (DM) Diabetes Tondra Mapus [facility] Start: 03-08-2023 End: 03-08-2023 ambulatory Tondra K Mapus [facility] Other Start: 02-22-2023 End: 02-22-2023 ambulatory Yarelis Santacruz Other [facility] Other Start: 02-22-2023 Office outpatient visit 15 minutes Yarelis Santacruz [facility] Start: 01-20-2023 End: 01-20-2023 ambulatory Fahad Salinas Other [facility] [employer] Other Start: 01-20-2023 Office outpatient visit 15 minutes Fahad Salinas [facility] Start: 12-09-2022 End: 12-09-2022 ambulatory Tondra Mapus Other [facility] [employer] Other Start: 12-09-2022 Telephone encounter Tondra Mapus [facility] Start: 12-06-2022 End: 12-06-2022 ambulatory [facility] Start: 11-25-2022 ambulatory TONDRA MAPUS Facility:[facility] [place] Start: 11-24-2022 (DM) Diabetes Tondra Mapus [facility] Start: 11-24-2022 End: 11-24-2022 ambulatory Tondra Mapus Other [facility] Other Start: 11-24-2022 Telephone encounter Tondra Mapus [facility] Start: 10-17-2022 End: 10-17-2022 ambulatory Fahad Salinas Other [facility] Other Start: 10-17-2022 Encounter for genera l adult medical examination without abnormal findings Fahad Salinas [facility] Start: 10-17-2022 Periodic preventive med est patient 40-64yrs Fahad Salinas [facility] Start: 09-05-[address] FAHAD SALINAS Facili ty:[facility] Start: 08-24-2022 End: 08-25-2022 ambulatory DAMIAN ONTIVEROS Facility:[facility] Start: 08-22-2022 (DM) Diabetes Tondra Mapus [facility] Start: 08-22-2022 End: 08-22-2022 ambulatory Tondra Mapus Other [facility] Other Start: 07-18-2022 End: 07-18-2022 ambulatory Fahad Salinas Other [facility] Other Start: 07-18-2022 Office outpatient visit [address] [facility] Start: 05-23-2022 End: 05-23-2022 ambulatory [facility] Start: 05-19-2022 (DM) Diabetes Tondra Mapus [facility] Start: 05-19-2022 End: 05-19-2022 ambulatory Tondra Mapus Other [facility] Other Start: 05-04-2022 End: 05-04-2022 ambulatory Fahad Salinas Other [facility] Other Start: 05-04-2022 Office outpatient visit [address] [facility] Start: 04-19-2022 End: 05-04-[address] FAHAD SALINAS Facility:[facility] Start: 04-05-2022 End: 04-06-[address] FAHAD SALINAS Facility:[facility] Start: 04-05-2022 End: 04-05-2022 ambulatory [facility] Start: 03-30-2022 End: 03-31-[address] FAHAD SALINAS Facility:[facility] Start: 02-24-2022 End: 02-25-[address] FAHAD SALINAS Facility:[facility] Start: 02-17-2022 End: 04-19-[address] FAHAD SALINAS Facility:[facility] Start: 02-16-2022 End: 02-17-[address] FAHAD SALINAS Facility:[facility] Start: 02-14-2022 End: 02-14-2022 ambulatory Tondra Mapus Other [facility] Other Start: 02-14-2022 Telephone encounter Tondra Mapus [facility] Start: 02-11-2022 End: 02-11-2022 ambulatory DO Fahad Salinas Work Phone: [facility] Work Phone: Start: 02-11-2022 End: 02-11-2022 Patient encounter procedure DO Fahad Salinas Work Phone: [facility] [place] Start: 02-10-2022 End: 02-11-[address] SIMBA CURRAN Facility:[facility] Start: 02-01-2022 Registered Recurring DO Michael in [employer] Work Phone: [facility] Start: 02-01-2022 End: 02-01-2022 ambulatory Tondra Mapus Other [employer] [facility] [employer] Other Start: 02-01-2022 Telephone encounter Tondra Mapus [facility] Start: 01-31-2022 End: 01-31-2022 ambulatory SIMBA CURRAN [facility] Start: 01-25-2022 End: 01-26-2022 ambulatory COORDINATOR RESEARCH [facility] Start: 01-07-[address] FAHAD SALINAS Facili ty:[facility] Start: 12-31-2021 End: 12-31-2021 ambulatory DARNELL OVALLE Facility:[facility] Start: 12-16-2021 ambulatory DAMIAN Calvo lity:[facility] Start: 11-15-2021 End: 01-01-[address] FAHAD SALINAS Facility:[facility] Start: 10-29-2021 End: 10-30-[address] FAHAD SALINAS Facility:[facility] Start: 10-21-2021 (DM) Diabetes Tondra Mapus [facility] Start: 10-21-2021 End: 10-21-2021 ambulatory Tondra Mapus Other [facility] Other Start: 09-09-2021 End: 09-10-2021 ambulatory DAMIAN Medrano [facility] Facility:[facility] Start: 08-11-2021 End: 08-11-2021 ambulatory Celestina Greene Other [facility] Other Start: 08-11-2021 Office outpatient visit 25 minutes Celestina Greene [facility] Start: 06-29-2021 (DM) Diabetes Tondra Mapus [facility] Start: 06-29-2021 End: 06-29-2021 ambulatory Tondra Mapus Other [facility] Other Start: 05-12-2021 End: 05-12-2021 ambulatory Tondra Mapus Other [facility] Other Start: 05-12-2021 Telephone encounter Tondra Mapus [facility] Start: 05-04-2021 End: 05-04-2021 ambulatory Tondra Mapus Other [facility] Other Start: 05-04-2021 Telephone encounter Tondra Mapus [facility] Start: 03-24-2021 (DM) Diabetes Tondra Mapus [facility] Start: 03-24-2021 End: 03-24-2021 ambulatory Tondra Mapus Other [facility] Other Start: 01-06-2021 Nursing evaluation o f patient and report Tondra Mapus [facility] Procedures Date Procedure Procedure Detail Performing Clinician Start: 12-06-2022 Follow-up visit Follow-up ROBYN NEGRON Start: 12-16-2021 Coronary artery bypa ss grafts x 5 Isaak ROXANN Coronary artery bypa ss graft Fahad Salinas Other Immunizations Immunization Date Immunization Notes Care Provider Sam brenner 02-24-2022 COVID-19 Pfizer (bivalent) Fahad Salinas Other [facility] Other 03-23-2021 COVID-19 Vaccine Pfi zer - Documentation Purposes Only Fahad Salinas Other [facility] Other 08-03-2020 COVID-19 Vaccine Pfi zer - Documentation Purposes Only Fahad Salinas Other [facility] Other 07-13-2020 COVID-19 Vaccine Pfi zer - Documentation Purposes Only Fahad Salinas Other [facility] Other Payers Date Payer Category Payer Unknown [id number] 1960 Unknown [id number] 2.16.84 [id number] 1960 Unknown [id number] 2.16.84 [id number] 1960 Unknown [id number] 2.16.84 [id number] 1960 Unknown [id number] 2.16.84 [id number] 1962 Unknown [id number] 2.16.84 [id number] 1962 Unknown [id number] 2.16.84 [id number] 1962 Unknown [id number] 2.16.84 [id number] 1962 Unknown [id number] 2.16.84 [id number] 1962 Unknown [id number] 2.16.84 [id number] 1962 Unknown [id number] 2.16.84 [id number] 1962 Unknown [id number] 2.16.84 [id number] 1962 Unknown [id number] 2.16.84 [id number] 1962 Unknown [id number] 2.16.84 [id number] 1962 Unknown [id number] 2.16.84 [id number] 1962 Unknown [id number] 2.16.84 [id number] 1957 Self-pay [id number] 1957 Unknown [id number] 2.16.8 [id number] Unknown [id number] 2.16.84 [id number] Unknown [id number] 2.16.8 [id number] Social History Date Type Detail Facility Unknown if ever smoked [facility] [employer] Other Sex Assigned At [facility] Start: 1960 Sex Assigned At Male F [facility] Start: 03-22-2023 Tobacco smoking status Never s moked tobacco (finding) [facility] Medical Equipment Procedure Code Equipment Code Equipment Original Text Equi pment Identifier Dates Functional Status Date Assessment Result Facility 03-22-2023 Functional Status N/A [facility] Clinical Notes 01-06-2021 to 03-22-2023 Note Date & Type Note Facility 03-22-2023 Hospital Discharg e instructions Patient Education 03/22/2023 11:43:07 Erectile Dysfunction Erectile Dysfunction Erectile dysfunction (ED) is the inability to get or keep an erection in order to have sexual intercourse. ED is considered a symptom of an underlying disorder and is not considered a disease. ED may include: Inability to get an erection. Lack of enough hardness of the erection to allow penetration. Loss of erection before sex is finished. What are the causes? This condition may be caused by: Physical causes, such as: ?Artery problems. This may include heart disease, high blood pressure, atherosclerosis, and diabetes. ?Hormonal problems, such as low testosterone. ?Obesity. ?Nerve problems. This may include back or pelvic injuries, multiple sclerosis, Parkinson's disease, spinal cord injury, and stroke. Certain medicines, such as: ?Pain relievers. ?Antidepressants. ?Blood pressure medicines and water pills (diuretics). ?Cancer medicines. ?Antihistamines. ?Muscle relaxants. Lifestyle factors, such as: ?Use of drugs such as marijuana, cocaine, or opioids. ?Excessive use of alcohol. ?Smoking. ?Lack of physical activity or exercise. Psychological causes, such as: ?Anxiety or stress. ?Sadness or depression. ?Exhaustion. ?Fear about sexual performance. ?Guilt. What are the signs or symptoms? Symptoms of this condition include: Inability to get an erection. Lack of enough hardness of the erection to allow penetration. Loss of the erection before sex is finished. Sometimes having normal erections, but with frequent unsatisfactory episodes. Low sexual satisfaction in either partner due to erection problems. A curved penis occurring with erection. The curve may cause pain, or the penis may be too curved to allow for intercourse. Never having nighttime or morning erections. How is this diagnosed? This condition is often diagnosed by: Performing a physical exam to find other diseases or specific problems with the penis. Asking you detailed questions about the problem. Doing tests, such as: ?Blood tests to check for diabetes mellitus or high cholesterol, or to measure hormone levels. ?Other tests to check for underlying health conditions. ?An ultrasound exam to check for scarring. ?A test to check blood flow to the penis. Doing a sleep study at home to measure nighttime erections. How is this treated? This condition may be treated by: Medicines, such as: ?Medicine taken by mouth to help you achieve an erection (oral medicine). ?Hormone replacement therapy to replace low testosterone levels. ?Medicine that is injected into the penis. Your health care provider may instruct you how to give yourself these injections at home. ?Medicine that is delivered with a short applicator tube. The tube is inserted into the opening at the tip of the penis, which is the opening of the urethra. A tiny pellet of medicine is put in the urethra. The pellet dissolves and enhances erectile function. This is also called MUSE (medicated urethral system for erections) therapy. Vacuum pump. This is a pump with a ring on it. The pump and ring are placed on the penis and used to create pressure that helps the penis become erect. Penile implant surgery. In this procedure, you may receive: ?An inflatable implant. This consists of cylinders, a pump, and a reservoir. The cylinders can be inflated with a fluid that helps to create an erection, and they can be deflated after intercourse. ?A semi-rigid implant. This consists of two silicone rubber rods. The rods provide some rigidity. They are also flexible, so the penis can both curve downward in its normal position and become straight for sexual intercourse. Blood vessel surgery to improve blood flow to the penis. During this procedure, a blood vessel from a different part of the body is placed into the penis to allow blood to flow around (bypass) damaged or blocked blood vessels. Lifestyle changes, such as exercising more, losing weight, and quitting smoking. Follow these instructions at home: Medicines Take [id number] and prescription medicines only as told by your health care provider. Do not increase the dosage without first discussing it with your health care provider. If you are using self-injections, do injections as directed by your health care provider. Make sure you avoid any veins that are on the surface of the penis. After giving an injection, apply pressure to the injection site for 5 minutes. Talk to your health care provider about how to prevent headaches while taking ED medicines. These medicines may cause a sudden headache due to the increase in blood flow in your body. General instructions Exercise regularly, as directed by your health care provider. Work with your health care provider to lose weight, if needed. Do not use any products that contain nicotine or tobacco. These products include cigarettes, chewing tobacco, and vaping devices, such as e-cigarettes. If you need help quitting, ask your health care provider. Before using a vacuum pump, read the instructions that come with the pump and discuss any questions with your health care provider. Keep all follow-up visits. This is important. Contact a health care provider if: You feel nauseous. You are vomiting. You get sudden headaches while taking ED medicines. You have any concerns about your sexual health. Get help right away if: You are taking oral or injectable medicines and you have an erection that lasts longer than 4 hours. If your health care provider is unavailable, go to the nearest emergency room for evaluation. An erection that lasts much longer than 4 hours can result in permanent damage to your penis. You have severe pain in your groin or abdomen. You develop redness or severe swelling of your penis. You have redness spreading at your groin or lower abdomen. You are unable to urinate. You experience chest pain or a rapid heartbeat (palpitations) after taking oral medicines. These symptoms may represent a serious problem that is an emergency. Do not wait to see if the symptoms will go away. Get medical help right away. Call your local emergency services (911 in the [place] Do not drive yourself to the hospital. Summary Erectile dysfunction (ED) is the inability to get or keep an erection during sexual intercourse. This condition is diagnosed based on a physical exam, your symptoms, and tests to determine the cause. Treatment varies depending on the cause and may include medicines, hormone therapy, surgery, or a vacuum pump. You may need follow-up visits to make sure that you are using your medicines or devices correctly. Get help right away if you are taking or injecting medicines and you have an erection that lasts longer than 4 hours. This information is not intended to replace advice given to you by your health care provider. Make sure you discuss any questions you have with your health care provider. Document Revised: 06/30/2021 Document Reviewed: 06/30/2021 [employer] Patient Education 2022 [email or web address]. Follow Up Care 11/25/2022 08:22:24 With:ROXANN BARR, Isaak Sharma, URL Address: [address] [place] [id number] When: Unknown [facility] 03-08-2023 Evaluation note Encounter Date Diagnosis Assessment Notes Feb, Type 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 with hyperglycemia (ICD-10 - E11.65) 1. Uncontrolled, a Type 2 diabetes with A1c of 7.2% 2. Blood glucose levels according to shivani 2 cgm download 02/23/23-03/08/23 : Avg glucose 183. >250- 7%, >180-46%, 70-180-47 %, <70-1%, <54-0%. CV 23.7%. Reviewed download with pt., no incidence of hypoglycemia. Glucose above target fasting am/meal to meal. Recommend increasing toujeo from 70 to 72 units daily. Reviewed with pt how to titrate basal/bolus insulin according to fasting am/meal to meal glucose pattern. Pt verbalizes understanding. Pt with history of pancreatitis eliminates using dpp4/glp1. 3. Patient is alert, oriented and receptive to making changes or counseling. Notes: Seen for an assessment of current glucose pattern, changes in treatment plan, with this time spent in counseling and coordination of care related to diabetes, risks, and benefits of treatment, medications, and side effects. TOPICS REVIEWED: 1. Time was spent reviewing: a. Basic concepts of diabetes, progressive beta cell , concepts of basal/bolus/lita ective insulin requirements. Basal: The goal is fasting blood glucose of 90-130mg. IF fasting blood glucose starts to run under 100mg 3x's/ week, decrease dose by 10%. Bolus: The goal is to hold the blood glucose level steady meal to meal. If pt. is going to have increased physical activity after a meal, decrease the schedule meal dose prior to the activity by 30-50%. If pt. skips a meal do not take this dose. Correction: The goal is to correct an elevated glucose back into the 100-150mg range b. Nutrition: Concepts of healthy diet, encouraged to decrease saturated fat in diet and increase non-starchy vegetables and fruits in diet. BMI: Pt. needs to select one small change to decrease caloric intake or increase physical activity to help decrease weight. c. Correct treatment of hypoglycemia, carry a glucose source at all times on your person, in vehicles, and at bedside. Can use glucose tablets/4, four ounces of pop or juice equal to 15 G of carbohydrate. Blood glucose should be 100 mg/dl or higher when driving. d. ADA glucose goals for age and medical complexity reviewed e. Patient questions addressed 2. Activity/exercis e: Encouraged to start any form of physical activity. Start low level and increase slowly to a minimal goal of 150 minutes/week. Limit activity to what is allowed by other issues such as cardiac, pulmonary or orthopedic restrictions. 3. Standards of care: Reminded to have an annual dilated eye exam, A1C every 3 months, urine testing for microalbumin once/year, check feet daily and report any cuts or sores that do not appear to be healing. 4. Meter: Plan to check blood glucose: Please check blood glucose levels 4 times/day. Back to back meals reveal effectiveness of bolus dosing. 5. [facility] Contact office if any issues or concerns with patterns of hypoglycemia, hyperglycemia, or diabetes medication issues. 6. Prescriptions: VERNA DONNELLY: Sample chris max x1 pen given today. 7. Prescriptions will not be filled unless you are compliant with follow up appointments or have a follow up appointment scheduled as ordered by your provider. Refills should be requested at the time of your visit. Feb, Dietary counseling and surveillance (ICD-10 - Z71.3) see above Feb, HTN (hypertension) (ICD-10 - I10) On arb. Feb, retirement current use of insulin (ICD-10 - Z79.4) Feb, Mixed hyperlipidemia (ICD-10 - E78.2) 12/2022 LDL 100 /trig 257-on statin; keep f/u with cardiology Feb, Vitamin B 12 deficiency (ICD-10 - E53.8) 01/07 vit b 12 577 at target Feb, Albuminuria (ICD-10 - R80.9) 01/07 m/a cr ratio 65. Reviewed importance of glucose/bp control to prevent further nephropathy Feb, BMI 39.0-39.9,adult (ICD-10 - Z68.39) see above [employer] Other 11-08-2023 Evaluation note* Encounter Date Diagnosis Assessment Notes Treatment Notes Treatment Clinical Notes Feb, Subungual hematoma of finger of right hand, initial encounter (ICD-10 - S60.10XA) Patient instructed to continue with daily soaking. Keep covered while at work [employer] Other 10-06-2023 Evaluation note* Encounter Date Diagnosis Assessment Notes Treatment Notes Treatment Clinical Notes Jan, Crushing injury of right index finger, initial encounter (ICD-10 - S67.190A) Elevated and rest. XR for FB, abscess, fx Jan, Abscess of finger of right hand (ICD-10 - L02.511) Warm soaks and elevate. Begin antibiotics. Jan, Type 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 with hyperglycemia (ICD-10 - E11.65) Increases risk of serious infection. [employer] Other 10-02-2023 NoteReviewed labs from 01/10/23 Pt is currently on lipitor 80 mg daily therefore will add zetia to regime for better Lipid management Repeat lipid level in 2-3 months. Robyn Negron [facility] Division of Cardiology, [facility]- [phone] Pager- [phone] Email- [email or web address] Evaluation note* Encounter Date Diagnosis Assessment Notes Treatment Notes Treatment Clinical Notes Nov, Type 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 with hyperglycemia (ICD-10 - E11.65) [employer] Other 08-22-2023 NoteRemains stableUnLicking [facility]08-22-2023 NoteresolvedUnLicking [facility] Hospital 12-06-2022 NoteHypertension is well controlled 102/63 Renal function stableUnLicking Memorial Hospital08-22-2023 NoteContinue statin and repeat LFT and lipid level.[facility] 12-06-2022 NoteCoronary artery disease is stable without concerning symptoms Continue GDMT- asa, lipitor and toprol continue risk factor modifications- heart healthy diet, regular exercise as tolerated and continue all medications.[facility] 12-06-2022 NoteNYHC II Continue GDMT- ASA, lipitor, farxiga, entresto, aldactone and toprol Diuretic therapy- farxiga and he remains euvolemic currently Monitor daily weights, I&O, fluid restriction 1.5-2L/day, renal function and electrolytes-[facility]08-22-2023 NoteUTP CARDIOLOGY PROGRESS NOTE HPI: Caden Wills is a 62 y.o. male here for Follow-up (6 month follow up ) HPI Pleasant 62-year-old man with prior history of coronary disease status post percutaneous intervention to chronically occluded LAD in 2007. Additional history includes diabetes, hypertension and hyperlipidemia. He was admitted in December 2021 to [facility] with chest pain and diagnosed with NSTEMI. Cardiac catheterization on 01/03/2022 showed severe three-vessel coronary artery disease. He was referred for bypass surgery. This was performed on 01/07/2022. Postoperatively he developed atrial fibrillation and was treated with amiodarone. He converted to sinus rhythm- event monitor showed no evidence of a fib. Currently he has returned to work, denied any activity limiting symptoms and overall states he is feeling quite well. Review of Systems Constitutional: Negative. Respiratory: Negative. Cardiovascular: Negative. Neurological: Negative. All other systems reviewed and are negative. Previous HPI per Dr Curran HPI This is a 62-year-old man with prior history of coronary disease status post percutaneous intervention to chronically occluded LAD in 2007. Additional history includes diabetes, hypertension and hyperlipidemia. He was admitted in December 2021 to [facility] with chest pain and diagnosed with NSTEMI. Cardiac catheterization on 01/03/2022 showed severe three-vessel coronary artery disease. He was referred for bypass surgery. This was performed on 01/07/2022. Postoperatively he developed atrial fibrillation and was treated with amiodarone. He converted to sinus rhythm. He was seen in follow-up by cardiothoracic surgery on 01/20/2022 and metolazone was stopped. Potassium was reduced to 40 mill equivalent once daily. On that day his ECG showed normal sinus rhythm. I last saw him on 01/31/2022. At that time I did the followin. Start Entresto 24-26 mg twice daily. 2. Start spironolactone 25 mg once daily. 3. Stop Cardizem. 4. Increase metoprolol succinate from 50 mg twice daily to 100 mg twice daily. 5. Start Farxiga 10 mg once daily. 6. Stop metolazone. 7. Reduce Bumex to 1 mg once daily and take extra 1 mg if needed for leg swelling. 8. Refer to cardiac rehab. 9. BMP and BNP in 2 weeks. 10. Check echocardiogram around April 08, 2022 which would be 3 months following his bypass surgery and coronary revascularization. 11. Check event monitor to rule out recurrence of atrial fibrillation. Meanwhile continue Eliquis. Today he reports that he has been doing well. He has no angina. He appears to be in NYHA class II symptoms at this time. He does have lower extremity edema. He denies palpitations. Follow-up event monitor did not show any atrial fibrillation. Follow-up echocardiogram showed normalization of ejection fraction Visit Vitals BP 102/63 (BP Location: Left arm, Patient Position: Sitting, BP Cuff Size: Large adult) Pulse 75 Ht 1.778 m (5' 10 ) Wt 125 kg (276 lb 9.6 oz) SpO2 93% BMI 39.69 kg/m??? Smoking Status Never BSA 2.48 m??? No Known Allergies Medications: Current Outpatient Medications on File Prior to Visit Medication Sig Dispense Refill acetaminophen (Tylenol) 325 mg tablet Take 2 tablets (650 mg) by mouth every 6 (six) hours if needed for mild pain (1-3 pain score) for up to 278 doses. 30 tablet 0 aspirin 81 mg EC tablet Take 81 mg by mouth in the morning. atorvastatin (Lipitor) 80 mg tablet Take 1 tablet (80 mg) by mouth at bedtime for 92 doses. 30 tablet 0 clopidogrel (Plavix) 75 mg tablet Take 1 tablet (75 mg) by mouth in the morning. 90 tablet 3 dapagliflozin (Farxiga) 10 mg Take 1 tablet (10 mg) by mouth in the morning. 90 tablet 3 docosahexaenoic acid/epa (FISH OIL ORAL) Take 1,000 mg by mouth in the morning. famotidine (Pepcid) 40 mg tablet TAKE 1 TABLET BY MOUTH EVERY DAY AT BEDTIME FOR 90 DAYS insulin aspart (NovoLOG) 100 unit/mL injection Inject 25 Units under the skin in the morning, at noon, and at bedtime. Patient states always uses 25 units, but sometimes will add 2 units per blood sugar parameters. insulin detemir (Levemir) 100 unit/mL injection Inject 40 Units under the skin in the morning and at bedtime for 184 doses. 10 mL 0 metFORMIN (Glucophage) 500 mg tablet Take 500 mg by mouth with breakfast and with evening meal. With lunch and supper metoprolol succinate XL (Toprol-XL) 100 mg 24 hr tablet TAKE 1 TABLET BY MOUTH IN THE MORNING AND 1 TABLET AT BEDTIME 180 tablet 3 potassium chloride CR (Klor-Con M20) 20 mEq ER tablet Take 1 tablet (20 mEq) by mouth in the morning and at bedtime. Do not crush or chew. 180 tablet 3 sacubitriL-valsartan (Entresto) 24-26 mg tablet Take 1 tablet by mouth in the morning and at bedtime. 180 tablet 3 spironolactone (Aldactone) 25 mg tablet TAKE 1 TABLET BY MOUTH EVERY DAY IN THE MORNING 90 tablet 3 No current facility-administered medications on file (more content not included)...[facility]08-14-2023 Reason for visit NarrativeTKM - REFERRAL UROLOGY - NEED TO INFORM PATIENT 11/28/22[employer] Other [id number] Evaluation note* Encounter Date Diagnosis Assessment Notes Treatment Notes Treatment Clinical Notes Nov, Type 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 with hyperglycemia (ICD-10 - E11.65) 1. Controlled, a Type 2 diabetes with A1c of 6.6% 2. Blood glucose levels according to [email or web address] 2 cgm download 11/11/22-11/24/22: Avg glucose 172. >250- 2%, >180-39%, 70-180-58 %, <70-1%, <54-0%. CV 22.8%. Reviewed download with pt., incidence of hypoglycemia from overestimation of insulin for carb load. Reviewed with pt how to titrate basal/bolus insulin according to fasting am/meal to meal glucose pattern. Pt verbalizes understanding. Pt with history of pancreatitis eliminates using dpp4/glp1. 3. Patient is alert, oriented and receptive to making changes or counseling. Notes: Seen for an assessment of current glucose pattern, changes in treatment plan, with this time spent in counseling and coordination of care related to diabetes, risks, and benefits of treatment, medications, and side effects. TOPICS REVIEWED: 1. Time was spent reviewing: a. Basic concepts of diabetes, progressive beta cell , concepts of basal/bolus/correct dena insulin requirements. Basal: The goal is fasting blood glucose of 90-130mg. IF fasting blood glucose starts to run under 100mg 3x's/ week, decrease dose by 10%. Bolus: The goal is to hold the blood glucose level steady meal to meal. If pt. is going to have increased physical activity after a meal, decrease the schedule meal dose prior to the activity by 30-50%. If pt. skips a meal do not take this dose. Correction: The goal is to correct an elevated glucose back into the 100-150mg range b. Nutrition: Concepts of healthy diet, encouraged to decrease saturated fat in diet and increase non-starchy vegetables and fruits in diet. BMI: Pt. needs to select one small change to decrease caloric intake or increase physical activity to help decrease weight. c. Correct treatment of hypoglycemia, carry a glucose source at all times on your person, in vehicles, and at bedside. Can use glucose tablets/4, four ounces of pop or juice equal to 15 G of carbohydrate. Blood glucose should be 100 mg/dl or higher when driving. d. ADA glucose goals for age and medical complexity reviewed e. Patient questions addressed 2. Activity/exercise: Encouraged to start any form of physical activity. Start low level and increase slowly to a minimal goal of 150 minutes/week. Limit activity to what is allowed by other issues such as cardiac, pulmonary or orthopedic restrictions. 3. Standards of care: Reminded to have an annual dilated eye exam, A1C every 3 months, urine testing for microalbumin once/year, check feet daily and report any cuts or sores that do not appear to be healing. 4. Meter: Plan to check blood glucose: Please check blood glucose levels 4 times/day. Back to back meals reveal effectiveness of bolus dosing. 5. [facility]. Contact office if any issues or concerns with patterns of hypoglycemia, hyperglycemia, or diabetes medication issues. 6. Prescriptions: VERNA DONNELLY: Sample shivani 2 cgm given today. 7. Prescriptions will not be filled unless you are compliant with follow up appointments or have a follow up appointment scheduled as ordered by your provider. Refills should be requested at the time of your visit. Nov, Dietary counseling and surveillance (ICD-10 - Z71.3) see above Nov, HTN (hypertension) (ICD-10 - I10) On arb. 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 Reviewed importance of glucose/bp control to prevent further nephropathy Nov, BMI 39.0-39.9,adult (ICD-10 - Z68.39) 5 pound weight loss from last visit, continue with weight loss efforts Nov, Erectile dysfunction (ICD-10 - N52.9) referral to urology [employer] Other 08-10-2023 Evaluation note* Encounter Date Diagnosis Assessment Notes Treatment Notes Treatment Clinical Notes Nov, Erectile dysfunction (ICD-10 - N52.9) [employer] Other 07-03-2023 Evaluation note* Encounter Date Diagnosis Assessment Notes Treatment Notes Treatment Clinical Notes Oct, Wellness examination (ICD-10 - Z00.00) Healthy diet and exercise. Reviewed age-appropriate preventive testing recommended. Oct, ASHD (arteriosclerotic heart disease) (ICD-10 - I25.10) This patient is stable without activity related CP, dyspnea or lightheadedness. They are instructed to continue exercise and AHA diet plan. Oct, Chronic HFrEF (heart failure with reduced ejection fraction) (ICD-10 - I50.22) Oct, Paroxysmal atrial fibrillation (ICD-10 - I48.0) This patient is in NSR or rate controlled. This patient is anticoagulated to prevent thromboembolic events. They are maintaining regular scheduled appts with their consultants intern. No bleeding complications Oct, Type 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 with hyperglycemia (ICD-10 - E11.65) This patient is following a comprehensive diabetic treatment plan. They are checking their feet daily for calluses and nonhealing ulcers. They are being seen for yearly dilated eye examinations. Goals: SBP less than 130, LDL less than 100, FBS less than 140, AC and A1C less than 7%. They are checking their BS daily, will which are reviewed at the office visit. Continue regular routine monitoring of A1C,] Microalbumin, Dilated eye exam and Foot exam Oct, Type 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 with diabetic polyneuropathy (ICD-10 - E11.42) Inspect feet daily for cuts and calluses.Recommend diabetic shoes and inserts to prevent callus formation.Fall precautions. Oct, Primary hypertension (ICD-10 - I10) This patient is instructed to consume a healthy, low-fat, low-salt diet. They are also encouraged to continue exercise to achieve/maintain a normal BMI. Oct, Hyperlipidemia type II (ICD-10 - E78.01) Instructed on diet and exercise with continued statin therapy.Discussed the beneficial effects of lowering cholesterol in reducing the risk for cerebrovascular and cardiovascular disease. Oct, Chronic venous insufficiency of lower extremity (ICD-10 - I87.2) Avoid salt and elevate lower extremities, support stockings, inspect legs and feet daily for blisters and ulcerations. Oct, Gastroesophageal reflux disease with esophagitis without hemorrhage (ICD-10 - K21.00) Oct, Erectile dysfunction due to arterial insufficiency (ICD-10 - N52.01) Discussed etiology and treatment Multifactorial w/ age, medications and DM contributing Trial of Sildenafil - he is not taking any NTG at the present time - he is aware it may lower his BP monitor - he is to avoid use if results in low BP, CP or lightheadedness Oct, Screening PSA (prostate specific antigen) (ICD-10 - Z12.5) Yearly LADAN and PSA [employer] Other 05-08-2023 Evaluation note* Encounter Date Diagnosis Assessment Notes Treatment Notes Treatment Clinical Notes August, Type 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 with hyperglycemia (ICD-10 - E11.65) 1. Controlled, a Type 2 diabetes with A1c of 6.5% 2. Blood glucose levels according to [email or web address] 2 cgm download 08/09/22-08/22/22: Avg glucose 157. >250- 0%, >180-26%, 70-180-74 %, <70-0%, <54-0%. CV 24%. Reviewed download with pt., conern with glucose dropping after breakfast- recommend reducing breakfast dose from 32 to 30 units. Readings above target from missed meal dose if eating out. Encouraged to prebolus 15 minutes ac for improved postprandial glycemia. Reviewed with pt how to titrate basal/bolus insulin according to fasting am/meal to meal glucose pattern. Pt verbalizes understanding. Pt with history of pancreatitis eliminates using dpp4/glp1. 3. Patient is alert, oriented and receptive to making changes or counseling. Notes: Seen for an assessment of current glucose pattern, changes in treatment plan, with this time spent in counseling and coordination of care related to diabetes, risks, and benefits of treatment, medications, and side effects. TOPICS REVIEWED: 1. Time was spent reviewing: a. Basic concepts of diabetes, progressive beta cell , concepts of basal/bolus/correct dena insulin requirements. Basal: The goal is fasting blood glucose of 90-130mg. IF fasting blood glucose starts to run under 100mg 3x's/ week, decrease dose by 10%. Bolus: The goal is to hold the blood glucose level steady meal to meal. If pt. is going to have increased physical activity after a meal, decrease the schedule meal dose prior to the activity by 30-50%. If pt. skips a meal do not take this dose. Correction: The goal is to correct an elevated glucose back into the 100-150mg range b. Nutrition: Concepts of healthy diet, encouraged to decrease saturated fat in diet and increase non-starchy vegetables and fruits in diet. BMI: Pt. needs to select one small change to decrease caloric intake or increase physical activity to help decrease weight. c. Correct treatment of hypoglycemia, carry a glucose source at all times on your person, in vehicles, and at bedside. Can use glucose tablets/4, four ounces of pop or juice equal to 15 G of carbohydrate. Blood glucose should be 100 mg/dl or higher when driving. d. ADA glucose goals for age and medical complexity reviewed e. Patient questions addressed 2. Activity/exercise: Encouraged to start any form of physical activity. Start low level and increase slowly to a minimal goal of 150 minutes/week. Limit activity to what is allowed by other issues such as cardiac, pulmonary or orthopedic restrictions. 3. Standards of care: Reminded to have an annual dilated eye exam, A1C every 3 months, urine testing for microalbumin once/year, check feet daily and report any cuts or sores that do not appear to be healing. 4. Meter: Plan to check blood glucose: Please check blood glucose levels 4 times/day. Back to back meals reveal effectiveness of bolus dosing. 5. [facility]. Contact office if any issues or concerns with patterns of hypoglycemia, hyperglycemia, or diabetes medication issues. 6. Prescriptions: VERNA DONNELLY: None at this time. 7. Prescriptions will not be filled unless you are compliant with follow up appointments or have a follow up appointment scheduled as ordered by your provider. Refills should be requested at the time of your visit. August, Dietary counseling and surveillance (ICD-10 - Z71.3) see above August, HTN (hypertension) (ICD-10 - I10) On arb. August, retirement current use of insulin (ICD-10 - Z79.4) August, Mixed hyperlipidemia (ICD-10 - E78.2) 01/2022 LDL 34 on statin- at target August, Vitamin B 12 deficiency (ICD-10 - E53.8) 02/05 vit b 12 227 at target August, Albuminuria (ICD-10 - R80.9) 02/05 m/a cr ratio 68. Reviewed importance of glucose/bp control to prevent further nephropathy August, Blister (nonthermal), left great toe, initial encounter (ICD-10 - S90.422A) Referral to Dr. Kareen briones 08/24/22 2:00 pm August, BMI 39.0-39.9,adult (ICD-10 - Z68.39) 2 pound weight loss from last visit, continue with weight loss efforts [employer] Other 04-03-2023 Evaluation note* Encounter Date Diagnosis Assessment Notes Treatment Notes Treatment Clinical Notes Jul, ASHD (arteriosclerot ic heart disease) (ICD-10 - I25.10) This patient is stable without activity related CP, dyspnea or lightheadedness. They are instructed to continue exercise and AHA diet plan. Instructed to continue exercise 2-3x weekly. After completiong CR plans on continuing at [facility] Jul, Primary hypertension (ICD-10 - I10) This patient is instructed to consume a healthy, low-fat, low-salt diet. They are also encouraged to continue exercise to achieve/maintain a normal BMI. Jul, Gastroesophageal reflux disease with esophagitis without hemorrhage (ICD-10 - K21.00) Diet instructions: Smaller portions, avoid eating and laying flat, avoid eating or drinking prior to bedtime. Weight loss. Famotidine as needed, if used frequently is to restart PPI and notify office Discussed EGD for recurrent symptoms Jul, S/P CABG (coronary artery bypass graft) (ICD-10 - Z95.1) [employer] Other 02-06-2023 NoteUT Cardiology - [facility] Subjective Caden Wills is a 62 y.o. year old male patient being seen for follow up event monitor. He would like to return to work. Denies chest pain and SOB. He has completed cardiac rehab, and sometimes goes to the [facility] to exercise. Patient Active Problem List Diagnosis Chest pain NSTEMI (non-ST elevated myocardial infarction) ([facility]) Obesity Diabetes mellitus, type II, insulin dependent (CMS/[facility]) Respiratory insufficiency Hypomagnesemia Hypertension Hyperlipidemia Postoperative atrial fibrillation ([facility]/HCC) Coronary artery disease involving [place] coronary artery of [place] heart without angina pectoris Chronic systolic heart failure ([facility]) History of coronary artery bypass graft Family History Problem Relation Name Age of Onset Coronary artery disease Father Social History Tobacco Use Smoking status: Never Smokeless tobacco: Never Vaping Use Vaping Use: Never used Substance Use Topics Alcohol use: Not Currently Alcohol/week: 2.0 standard drinks Types: 2 Cans of beer per week Drug use: Never HPI This is a 62-year-old man with prior history of coronary disease status post percutaneous intervention to chronically occluded LAD in 2007. Additional history includes diabetes, hypertension and hyperlipidemia. He was admitted in December 2021 to [facility] with chest pain and diagnosed with NSTEMI. Cardiac catheterization on 01/03/2022 showed severe three-vessel coronary artery disease. He was referred for bypass surgery. This was performed on 01/07/2022. Postoperatively he developed atrial fibrillation and was treated with amiodarone. He converted to sinus rhythm. He was seen in follow-up by cardiothoracic surgery on 01/20/2022 and metolazone was stopped. Potassium was reduced to 40 mill equivalent once daily. On that day his ECG showed normal sinus rhythm. I last saw him on 01/31/2022. At that time I did the followin. Start Entresto 24-26 mg twice daily. 2. Start spironolactone 25 mg once daily. 3. Stop Cardizem. 4. Increase metoprolol succinate from 50 mg twice daily to 100 mg twice daily. 5. Start Farxiga 10 mg once daily. 6. Stop metolazone. 7. Reduce Bumex to 1 mg once daily and take extra 1 mg if needed for leg swelling. 8. Refer to cardiac rehab. 9. BMP and BNP in 2 weeks. 10. Check echocardiogram around April 08, 2022 which would be 3 months following his bypass surgery and coronary revascularization. 11. Check event monitor to rule out recurrence of atrial fibrillation. Meanwhile continue Eliquis. Today he reports that he has been doing well. He has no angina. He appears to be in NYHA class II symptoms at this time. He does have lower extremity edema. He denies palpitations. Follow-up event monitor did not show any atrial fibrillation. Follow-up echocardiogram showed normalization of ejection fraction Review of Systems Gastrointestinal: Positive for bloating and diarrhea. Genitourinary: Positive for decreased libido. Neurological: Positive for light-headedness. All other systems reviewed and are negative. Objective Visit Vitals BP 117/75 (BP Location: Right arm, Patient Position: Sitting) Pulse 75 Ht 1.778 m (5' 10 ) Wt 129 kg (285 lb) SpO2 95% BMI 40.89 kg/m??? Smoking Status Never BSA 2.52 m??? Physical Exam Constitutional: Appearance: He is well-developed. He is obese. He is not ill-appearing. HENT: Head: Normocephalic and atraumatic. Nose: Nose normal. Eyes: General: No scleral icterus. Pupils: Pupils are equal, round, and reactive to light. Neck: Thyroid: No thyromegaly. Vascular: No JVD. Cardiovascular: Rate and Rhythm: Normal rate and regular rhythm. Pulses: Radial pulses are 2+ on the right side and 2+ on the left side. Heart sounds: Normal heart sounds. No murmur heard. No friction rub. No gallop. Pulmonary: Effort: Pulmonary effort is normal. No respiratory distress. Breath sounds: Normal breath sounds. No wheezing or rales. Chest: Chest wall: No tenderness. Abdominal: General: Bowel sounds are normal. There is no distension. Palpations: Abdomen is soft. Tenderness: There is no abdominal tenderness. Musculoskeletal: General: No swelling. Cervical back: Neck supple. Skin: General: Skin is warm and dry. Neurological: General: No focal deficit present. Mental Status: He is alert and oriented to person, place, and time. Psychiatric: Mood and Affect: Mood normal. Behavior: Behavior is cooperative. Judgment: Judgment normal. Allergies No Known Allergies Medications Current Outpatient Medications: aspirin 81 mg EC tablet, Take 81 mg by mouth in the morning., Disp: , Rfl: atorvastatin (Lipitor) 80 mg tablet, Take 1 tablet (80 mg) by mouth at bedtime for 92 doses., Disp: 30 tablet, Rfl: 0 dapagliflozin (Farxiga) 10 mg, Take 1 tablet (10 mg) by mouth in the morning., Disp: 90 tablet, Rfl: 3 do (more content not included)...[facility]02-02-2023 Evaluation note* Encounter Date Diagnosis Assessment Notes Treatment Notes Treatment Clinical Notes May, Type 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 with hyperglycemia (ICD-10 - E11.65) 1. Controlled, a Type 2 diabetes with A1c of 6.9% 2. Blood glucose levels according to [email or web address] 2 cgm download 05/06/22-05/19/22: Avg glucose 189. >250- 7%, >180-49%, 70-180-44 %, <70-0%, <54-0%. CV 20.6%. Reviewed download with pt., readings above target from missed meal dose often when eating out. Encouraged to prebolus 15 minutes ac for improved postprandial glycemia. Pt reports when he goes back to work he will add back the metformin at lunch and likely won't take lyumjev at lunch because doesn't eat many carbs while at work. He will see consultants intern Monday to see if he will be going back to work. Pt with history of pancreatitis eliminates using dpp4/glp1. 3. Patient is alert, oriented and receptive to making changes or counseling. Notes: Seen for an assessment of current glucose pattern, changes in treatment plan, with this time spent in counseling and coordination of care related to diabetes, risks, and benefits of treatment, medications, and side effects. TOPICS REVIEWED: 1. Time was spent reviewing: a. Basic concepts of diabetes, progressive beta cell , concepts of basal/bolus/correct dena insulin requirements. Basal: The goal is fasting blood glucose of 90-130mg. IF fasting blood glucose starts to run under 100mg 3x's/ week, decrease dose by 10%. Bolus: The goal is to hold the blood glucose level steady meal to meal. If pt. is going to have increased physical activity after a meal, decrease the schedule meal dose prior to the activity by 30-50%. If pt. skips a meal do not take this dose. Correction: The goal is to correct an elevated glucose back into the 100-150mg range b. Nutrition: Concepts of healthy diet, encouraged to decrease saturated fat in diet and increase non-starchy vegetables and fruits in diet. BMI: Pt. needs to select one small change to decrease caloric intake or increase physical activity to help decrease weight. c. Correct treatment of hypoglycemia, carry a glucose source at all times on your person, in vehicles, and at bedside. Can use glucose tablets/4, four ounces of pop or juice equal to 15 G of carbohydrate. Blood glucose should be 100 mg/dl or higher when driving. d. ADA glucose goals for age and medical complexity reviewed e. Patient questions addressed 2. Activity/exercise: Encouraged to start any form of physical activity. Start low level and increase slowly to a minimal goal of 150 minutes/week. Limit activity to what is allowed by other issues such as cardiac, pulmonary or orthopedic restrictions. 3. Standards of care: Reminded to have an annual dilated eye exam, A1C every 3 months, urine testing for microalbumin once/year, check feet daily and report any cuts or sores that do not appear to be healing. 4. Meter: Plan to check blood glucose: Please check blood glucose levels 4 times/day. Back to back meals reveal effectiveness of bolus dosing. 5. [facility] Contact office if any issues or concerns with patterns of hypoglycemia, hyperglycemia, or diabetes medication issues. 6. Prescriptions: Lyumjev vial x3 samples given. 7. Prescriptions will not be filled unless you are compliant with follow up appointments or have a follow up appointment scheduled as ordered by your provider. Refills should be requested at the time of your visit. May, Dietary counseling and surveillance (ICD-10 - Z71.3) see above May, HTN (hypertension) (ICD-10 - I10) On arb. May, retirement current use of insulin (ICD-10 - Z79.4) May, Mixed hyperlipidemia (ICD-10 - E78.2) 01/2022 LDL 34 on statin- at target May, BMI 40.0-44.9, adult (ICD-10 - Z68.41) May, Vitamin B 12 deficiency (ICD-10 - E53.8) 02/05 vit b 12 227 at target May, Albuminuria (ICD-10 - R80.9) 02/05 m/a cr ratio 68. Reviewed importance of glucose/bp control to prevent further nephropathy [employer] Other 01-18-2023 Evaluation note* Encounter Date Diagnosis Assessment Notes Treatment Notes Treatment Clinical Notes Apr, ASHD (arteriosclerotic heart disease) (ICD-10 - I25.10) This patient is stable without activity related CP, dyspnea or lightheadedness. They are instructed to continue exercise and AHA diet plan. Apr, HTN (hypertension) (ICD-10 - I10) This patient is instructed to consume a healthy, low-fat, low-salt diet. They are also encouraged to continue exercise to achieve/maintain a normal BMI. Apr, Paroxysmal atrial fibrillation (ICD-10 - I48.0) This patient is in NSR. This patient is anticoagulated to prevent thromboembolic events. Recently completed 30 day event monitor w/ results pending. - may determine if requires lifelong AC Apr, Mixed hyperlipidemia (ICD-10 - E78.2) Diet and exercise with continued statin therapy. Apr, Type 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 with hyperglycemia (ICD-10 - E11.65) This patient is following a comprehensive diabetic treatment plan. They are checking their feet daily for calluses and nonhealing ulcers. They are being seen for yearly dilated eye examinations. Goals: SBP less than 130, LDL less than 100, FBS less than 140, AC and A1C less than 7%. They are checking their BS daily, will which are reviewed at the office visit. Apr, Dyspepsia (ICD-10 - R10.13) Diet instructions, avoiding NSAIDs due to AC and CKD. Initiate Pepcid at HS. No improvement, may warrant EGD to r/o H. Pylori [employer] Other 12-20-2022 NoteCardiology Clinic Note Subjective Caden Wills is a 62 y.o. year old male with CAD s/p 3vCABG in 12/2021, postop afib, and found to have reduced LVEF 35%. He reports he is doing well today, participating in cardiac rehab. He has been experiencing nocturnal urinary urgency and burning, no fevers or chills. Patient Active Problem List Diagnosis Chest pain NSTEMI (non-ST elevated myocardial infarction) ([facility]) Obesity Diabetes mellitus, type II, insulin dependent ([facility]) Respiratory insufficiency Hypomagnesemia Hypertension Hyperlipidemia Postoperative atrial fibrillation ([facility]) Coronary artery disease involving [place] coronary artery of [place] heart without angina pectoris Chronic systolic heart failure ([facility]) History of coronary artery bypass graft Family History Problem Relation Name Age of Onset Coronary artery disease Father Social History Tobacco Use Smoking status: Never Smokeless tobacco: Never Vaping Use Vaping Use: Never used Substance Use Topics Alcohol use: Not Currently Alcohol/week: 2.0 standard drinks Types: 2 Cans of beer per week Drug use: Never HPI This is a 62-year-old man with prior history of coronary disease status post percutaneous intervention to chronically occluded LAD in 2007. Additional history includes diabetes, hypertension and hyperlipidemia. He was admitted in December 2021 to [facility] with chest pain and diagnosed with NSTEMI. Cardiac catheterization on 01/03/2022 showed severe three-vessel coronary artery disease. He was referred for bypass surgery. This was performed on 01/07/2022. Postoperatively he developed atrial fibrillation and was treated with amiodarone. He converted to sinus rhythm. He was seen in follow-up by cardiothoracic surgery on 01/20/2022 and metolazone was stopped. Potassium was reduced to 40 mill equivalent once daily. On that day his ECG showed normal sinus rhythm. Today he reports that he has been doing relatively well. He has no angina. He has soreness in the chest when he coughs. He has not been exerting himself at all. He does not have shortness of breath at rest. He appears to be in NYHA class II symptoms at this time. He does have lower extremity edema. And he is still taking metolazone every other day to help with the leg swelling. He denies palpitations. Review of Systems Cardiovascular: Chest soreness Genitourinary: Positive for dysuria and frequency. All other systems reviewed and are negative. Objective Visit Vitals BP 107/74 (BP Location: Right arm, Patient Position: Sitting) Pulse 80 Ht 1.778 m (5' 10 ) Wt 124 kg (274 lb) SpO2 95% BMI 39.31 kg/m??? Smoking Status Never BSA 2.47 m??? Physical Exam General: Awake, alert, good spirits. NAD Eyes: anicteric sclera. Non-injected conjunctiva. No xanthelasmas Neck: No elevated JVP. No carotid bruit Pulm: Breath sounds clear to ascultation bilaterally with no wheeze, crackles or rhonchi Cards: Regular rate and rhythm, S1, S2. No S3 or S4 gallop. Murmur: none Abd: Soft, Nontender, physiologic bowel sounds are present Extr: Lower extremity edema: None. DP pulses: 2+ Skin: warm, dry, well perfused Neuro: A&Ox3, No gross deficits Allergies No Known Allergies Medications Current Outpatient Medications: acetaminophen (Tylenol) 325 mg tablet, Take 2 tablets (650 mg) by mouth every 6 (six) hours if needed for mild pain (1-3 pain score) for up to 278 doses., Disp: 30 tablet, Rfl: 0 amiodarone (Pacerone) 200 mg tablet, Take 1 tablet (200 mg) by mouth in the morning., Disp: 90 tablet, Rfl: 3 apixaban (Eliquis) 5 mg tablet, Take 1 tablet (5 mg) by mouth in the morning and at bedtime., Disp: 60 tablet, Rfl: 11 aspirin 81 mg EC tablet, Take 1 tablet (81 mg) by mouth in the morning for 91 doses. Do not start before January 16, 2022., Disp: 30 tablet, Rfl: 0 atorvastatin (Lipitor) 80 mg tablet, Take 1 tablet (80 mg) by mouth at bedtime for 92 doses., Disp: 30 tablet, Rfl: 0 dapagliflozin (Farxiga) 10 mg, Take 1 tablet (10 mg) by mouth in the morning., Disp: 90 tablet, Rfl: 3 docosahexaenoic acid/epa (FISH OIL ORAL), Take 1,000 mg by mouth in the morning., Disp: , Rfl: insulin aspart (NovoLOG) 100 unit/mL injection, Inject 25 Units under the skin in the morning, at noon, and at bedtime. Patient states always uses 25 units, but sometimes will add 2 units per blood sugar parameters., Disp: , Rfl: insulin detemir (Levemir) 100 unit/mL injection, Inject 40 Units under the skin in the morning and at bedtime for 184 doses., Disp: 10 mL, Rfl: 0 magnesium oxide (Mag-Ox) 400 mg (241.3 mg magnesium) tablet, Take 2 tablets (800 mg) by mouth in the morning for 189 doses., Disp: 120 tablet, Rfl: 0 metFORMIN (Glucophage) 500 mg tablet, Take 500 mg by mouth with breakfast and with evening meal. With lunch and supper, Disp: , Rfl: metoprolol succinate XL (Toprol-XL) 100 mg 24 hr tablet, Take 1 tablet (100 mg) by m (more content not included)...[facility] 04-05-2022 NotePatient here for follow up echo and labs. He is also requesting a release to return to work. He did not return and have event monitor placed that was ordered by Dr. Curran at last apt in 2021. Dr. Curran stopped Cardizem and metolazone. He started Entresto, spironolactone, and Farxiga. Metoprolol was increased and Bumex was decreased. He is c/o waking up around 1:30am during the night with an upset stomach. Says he has burning with urination. He said PCP told him to contact us regarding his new medications. Says the skin around his penis is red and sometimes bleeds. 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 He has not returned to work yet since CABG x5. He does get lightheaded at times. The chest pain/soreness is only when he coughs. SOB remains unchanged. Review of Systems Cardiovascular: Positive for chest pain and leg swelling. Genitourinary: Positive for dysuria and genital sores. Neurological: Positive for light-headedness. All other systems reviewed and are negative.[facility] 02-25-2022 NotePROCEDURE: XR FOOT RT MIN 3 VIEWS HISTORY: Pain in right foot ; acute right toe pain; stubbed toe COMPARISON: XR foot right 08/25/2016 FINDINGS: BONES:Prior amputation of the second toe. No fracture, dislocation, bone lesion. SOFT TISSUES:Atherosclerotic disease. No appreciable soft tissue swelling or radiopaque foreign body. EFFUSION:None visible. OTHER: Negative. IMPRESSION: 1. No acute bone abnormality. Electronically authenticated by: HEAVENLY LOUIS Date: 2022-02-25 06:39[facility] [place]10-17-2022 NoteAddendum created 01/31/22 1618 by Shannon Hatch MD Intraprocedure Staff edited (Anesthesia)[facility] 01-31-2022 NoteSubjective Caden Wills is a 62 y.o. year old male patient being seen for follow up CABG. He has been taking metolazone every other day for LE edema. Still has some chest soreness but denies SOB and bleeding on Eliquis. Patient Active Problem List Diagnosis Chest pain NSTEMI (non-ST elevated myocardial infarction) (CMS/HCC) Obesity Diabetes mellitus, type II, insulin dependent (CMS/HCC) Respiratory insufficiency Hypomagnesemia Hypertension Hyperlipidemia Postoperative atrial fibrillation (CMS/HCC) Coronary artery disease involving [place] coronary artery of [place] heart without angina pectoris Chronic systolic heart failure (CMS/HCC) History of coronary artery bypass graft Family History Problem Relation Name Age of Onset Coronary artery disease Father Social History Tobacco Use Smoking status: Never Smokeless tobacco: Never Vaping Use Vaping Use: Never used Substance Use Topics Alcohol use: Not Currently Alcohol/week: 2.0 standard drinks Types: 2 Cans of beer per week Drug use: Never HPI This is a 62-year-old man with prior history of coronary disease status post percutaneous intervention to chronically occluded LAD in 2007. Additional history includes diabetes, hypertension and hyperlipidemia. He was admitted in December 2021 to [facility] with chest pain and diagnosed with NSTEMI. Cardiac catheterization on 01/03/2022 showed severe three-vessel coronary artery disease. He was referred for bypass surgery. This was performed on 01/07/2022. Postoperatively he developed atrial fibrillation and was treated with amiodarone. He converted to sinus rhythm. He was seen in follow-up by cardiothoracic surgery on 01/20/2022 and metolazone was stopped. Potassium was reduced to 40 mill equivalent once daily. On that day his ECG showed normal sinus rhythm. Today he reports that he has been doing relatively well. He has no angina. He has soreness in the chest when he coughs. He has not been exerting himself at all. He does not have shortness of breath at rest. He appears to be in NYHA class II symptoms at this time. He does have lower extremity edema. And he is still taking metolazone every other day to help with the leg swelling. He denies palpitations. Review of Systems Cardiovascular: Positive for chest pain, dyspnea on exertion and leg swelling. Negative for irregular heartbeat, near-syncope, orthopnea, palpitations, paroxysmal nocturnal dyspnea and syncope. Respiratory: Positive for shortness of breath. Negative for cough. Objective Visit Vitals BP 124/73 (BP Location: Right arm, Patient Position: Sitting) Pulse 80 Ht 1.778 m (5' 10 ) Wt 129 kg (284 lb) SpO2 96% BMI 40.75 kg/m??? Smoking Status Never BSA 2.52 m??? Physical Exam Constitutional: Appearance: He is well-developed. He is obese. He is not ill-appearing. HENT: Head: Normocephalic and atraumatic. Nose: Nose normal. Eyes: General: No scleral icterus. Pupils: Pupils are equal, round, and reactive to light. Neck: Thyroid: No thyromegaly. Vascular: No JVD. Cardiovascular: Rate and Rhythm: Normal rate and regular rhythm. Heart sounds: Normal heart sounds. No murmur heard. No friction rub. No gallop. Pulmonary: Effort: Pulmonary effort is normal. No respiratory distress. Breath sounds: Normal breath sounds. No wheezing or rales. Chest: Chest wall: No tenderness. Abdominal: General: Bowel sounds are normal. There is no distension. Palpations: Abdomen is soft. Tenderness: There is no abdominal tenderness. Musculoskeletal: General: No swelling. Cervical back: Neck supple. Skin: General: Skin is warm and dry. Neurological: General: No focal deficit present. Mental Status: He is alert and oriented to person, place, and time. Psychiatric: Mood and Affect: Mood normal. Behavior: Behavior is cooperative. Judgment: Judgment normal. Allergies No Known Allergies Medications Current Outpatient Medications: acetaminophen (Tylenol) 325 mg tablet, Take 2 tablets (650 mg) by mouth every 6 (six) hours if needed for mild pain (1-3 pain score) for up to 278 doses., Disp: 30 tablet, Rfl: 0 amiodarone (Pacerone) 200 mg tablet, Take 1 tablet (200 mg) by mouth in the morning and at bedtime., Disp: 60 tablet, Rfl: 0 apixaban (Eliquis) 5 mg tablet, Take 1 tablet (5 mg) by mouth in the morning and at bedtime for 198 doses. Do not start taking until Monday01/16/2022. Do not start before January 16, 2022., Disp: 60 tablet, Rfl: 0 aspirin 81 mg EC tablet, Take 1 tablet (81 mg) by mouth in the morning for 91 doses. Do not start before January 16, 2022., Disp: 30 tablet, Rfl: 0 atorvastatin (Lipitor) 80 mg tablet, Take 1 tablet (80 mg) by mouth at bedtime for 92 doses., Disp: 30 tablet, Rfl: 0 bumetanide (Bumex) 1 mg tablet, Take 1 tablet (1 mg) by mouth before breakfast and before evening meal for 195 doses., Disp: 60 tablet, Rfl: 0 dilTIAZem CD (Cardizem CD) (more content not included)...[facility]07-07-2022 Evaluation note* Encounter Date Diagnosis Assessment Notes Treatment Notes Treatment Clinical Notes Oct, Type 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 with hyperglycemia (ICD-10 - E11.65) 1. Uncontrolled, a Type 2 diabetes with A1c of 7.5% 2. Blood glucose levels above target. According to [email or web address] 2 cgm download 10/08/21-10/21/21: Avg glucose 197. >250- 13%, >180-48%, 70-180-39%, <70-0%, <54-0%. CV 22.8%. Reviewed download with pt., readings above target fasting am and readings above target from missed meal dose or late meal dose. Instructed to increase toujeo from 68 to 70 units, pt verbalizes understanding. Pt with history of pancreatitis eliminates using dpp4/glp1. Used sglt2 in past and stopped after having uti. 3. Patient is alert, oriented and receptive to making changes or counseling. Notes: Seen for an assessment of current glucose pattern, changes in treatment plan, with this time spent in counseling and coordination of care related to diabetes, risks, and benefits of treatment, medications, and side effects. TOPICS REVIEWED: 1. Time was spent reviewing: a. Basic concepts of diabetes, progressive beta cell , concepts of basal/bolus/correct dena insulin requirements. Basal: The goal is fasting blood glucose of 90-130mg. IF fasting blood glucose starts to run under 100mg 3x's/ week, decrease dose by 10%. Bolus: The goal is to hold the blood glucose level steady meal to meal. If pt. is going to have increased physical activity after a meal, decrease the schedule meal dose prior to the activity by 30-50%. If pt. skips a meal do not take this dose. Correction: The goal is to correct an elevated glucose back into the 100-150mg range b. Nutrition: Concepts of healthy diet, encouraged to decrease saturated fat in diet and increase non-starchy vegetables and fruits in diet. BMI: Pt. needs to select one small change to decrease caloric intake or increase physical activity to help decrease weight. c. Correct treatment of hypoglycemia, carry a glucose source at all times on your person, in vehicles, and at bedside. Can use glucose tablets/4, four ounces of pop or juice equal to 15 G of carbohydrate. Blood glucose should be 100 mg/dl or higher when driving. d. ADA glucose goals for age and medical complexity reviewed e. Patient questions addressed 2. Activity/exercise: Encouraged to start any form of physical activity. Start low level and increase slowly to a minimal goal of 150 minutes/week. Limit activity to what is allowed by other issues such as cardiac, pulmonary or orthopedic restrictions. 3. Standards of care: Reminded to have an annual dilated eye exam, A1C every 3 months, urine testing for microalbumin once/year, check feet daily and report any cuts or sores that do not appear to be healing. 4. Meter: Plan to check blood glucose: Please check blood glucose levels 4 times/day. Back to back meals reveal effectiveness of bolus dosing. 5. [facility] Contact office if any issues or concerns with patterns of hypoglycemia, hyperglycemia, or diabetes medication issues. 6. Prescriptions: Sample toujeo x2 pens/lyumjev x2 pens, lyumjev x2 vials/syringes, shivani 2 x1 cgm. Oct, Dietary counseling and surveillance (ICD-10 - Z71.3) see above Oct, HTN (hypertension) (ICD-10 - I10) On jonathan. Oct, retirement current use of insulin (ICD-10 - Z79.4) Oct, Mixed hyperlipidemia (ICD-10 - E78.2) 11/2020 LDL 97.6 Triglycerides 347, on fenofibrate, Recommend moderate intensity statin f/u with pcp for further recommendation. Oct, BMI 40.0-44.9, adult (ICD-10 - Z68.41) 4 pound weight loss from last visit, continue with weight loss efforts Oct, Vitamin B 12 deficiency (ICD-10 - E53.8) [facility] Other 04-27-2022 Evaluation note* Encounter Date Diagnosis Assessment Notes Treatment Notes Treatment Clinical Notes Jul, Dysuria (ICD-10 - R30.0) Jul, Urinary tract infection, site not specified (ICD-10 - N39.0) Drink plenty fluids, get plenty of rest. Take the ciprofloxacin as prescribed until gone. Follow-up with your family physician when you complete the antibiotic, follow-up sooner if no improvement in your symptoms in 2 to 3 days. Jul, Hematuria, unspecified (ICD-10 - R31.9) [facility] Other 03-15-2022 Evaluation note* Encounter Date Diagnosis Assessment Notes Treatment Notes Treatment Clinical Notes Jun, Type 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 with hyperglycemia (ICD-10 - E11.65) 1. Uncontrolled, a Type 2 diabetes with A1c of 7.4% 2. Blood glucose levels above target. According to [email or web address] 2 cgm download 06/16/21-06/29/21: Avg glucose 172. >250- 1%, >180-38%, 70-180-61%, <70-0%, <54-0%. CV 20.9%. Reviewed download with pt., readings above target fasting am and readings above target from missed meal dose or late meal dose. Pt reports lyumjev pharmacy only sending 19 day supply. Recommend he check with his insurance to check on this. Reviewed if we need to switch back to novolog d/t lyumjev not being on formulary we will switch. Reviewed with pt unlikely increased urination is caused from lyumjev. Will modify basal dosing, see above. Pt verbalizes understanding. Pt with history of pancreatitis eliminates using dpp4/glp1. 3. Patient is alert, oriented and receptive to making changes or counseling. Notes: Seen for an assessment of current glucose pattern, changes in treatment plan, with this time spent in counseling and coordination of care related to diabetes, risks, and benefits of treatment, medications, and side effects. TOPICS REVIEWED: 1. Time was spent reviewing: a. Basic concepts of diabetes, progressive beta cell , concepts of basal/bolus/correct dena insulin requirements. Basal: The goal is fasting blood glucose of 90-130mg. IF fasting blood glucose starts to run under 100mg 3x's/ week, decrease dose by 10%. Bolus: The goal is to hold the blood glucose level steady meal to meal. If pt. is going to have increased physical activity after a meal, decrease the schedule meal dose prior to the activity by 30-50%. If pt. skips a meal do not take this dose. Correction: The goal is to correct an elevated glucose back into the 100-150mg range b. Nutrition: Concepts of healthy diet, encouraged to decrease saturated fat in diet and increase non-starchy vegetables and fruits in diet. BMI: Pt. needs to select one small change to decrease caloric intake or increase physical activity to help decrease weight. c. Correct treatment of hypoglycemia, carry a glucose source at all times on your person, in vehicles, and at bedside. Can use glucose tablets/4, four ounces of pop or juice equal to 15 G of carbohydrate. Blood glucose should be 100 mg/dl or higher when driving. d. ADA glucose goals for age and medical complexity reviewed e. Patient questions addressed 2. Activity/exercise: Encouraged to start any form of physical activity. Start low level and increase slowly to a minimal goal of 150 minutes/week. Limit activity to what is allowed by other issues such as cardiac, pulmonary or orthopedic restrictions. 3. Standards of care: Reminded to have an annual dilated eye exam, A1C every 3 months, urine testing for microalbumin once/year, check feet daily and report any cuts or sores that do not appear to be healing. 4. Meter: Plan to check blood glucose: Please check blood glucose levels 4 times/day. Back to back meals reveal effectiveness of bolus dosing. 5. [facility]. Contact office if any issues or concerns with patterns of hypoglycemia, hyperglycemia, or diabetes medication issues. 6. Prescriptions: None needed. Jun, Dietary counseling and surveillance (ICD-10 - Z71.3) see above Jun, HTN (hypertension) (ICD-10 - I10) On jonathan. 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 Jun, BMI 40.0-44.9, adult (ICD-10 - Z68.41) see above [facility] Other 01-18-2022 Evaluation note* Encounter Date Diagnosis Assessment Notes Treatment Notes Treatment Clinical Notes Apr, Type 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 with hyperglycemia (ICD-10 - E11.65) [facility] Other 12-08-2021 Evaluation note* Encounter Date Diagnosis Assessment Notes Treatment Notes Treatment Clinical Notes Mar, Type 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 with hyperglycemia (ICD-10 - E11.65) 1. Controlled, a Type 2 diabetes with A1c of 6.6% 2. Blood glucose levels improved from last visit. According to [email or web address] 2 cgm download 03/11/21-03/24/21: Avg glucose 162. >250- 1%, >180-29%, 70-180-70%, <70-0%, <54-0%. CV 22.5%. Reviewed download with pt. readings above target from missed meal dose or late meal dose. Discussed with pt trial lyumjev which he could take 5 minutes before meal up to 20 minutes after meal. He is agreeable, reviewed this would take place of [employer]. He verbalizes understanding. Pt with history of pancreatitis eliminates using dpp4/glp1. 3. Patient is alert, oriented and receptive to making changes or counseling. Notes: Seen for an assessment of current glucose pattern, changes in treatment plan, with this time spent in counseling and coordination of care related to diabetes, risks, and benefits of treatment, medications, and side effects. TOPICS REVIEWED: 1. Time was spent reviewing: a. Basic concepts of diabetes, progressive beta cell , concepts of basal/bolus/correct dena insulin requirements. Basal: The goal is fasting blood glucose of 90-130mg. IF fasting blood glucose starts to run under 100mg 3x's/ week, decrease dose by 10%. Bolus: The goal is to hold the blood glucose level steady meal to meal. If pt. is going to have increased physical activity after a meal, decrease the schedule meal dose prior to the activity by 30-50%. If pt. skips a meal do not take this dose. Correction: The goal is to correct an elevated glucose back into the 100-150mg range b. Nutrition: Concepts of healthy diet, encouraged to decrease saturated fat in diet and increase non-starchy vegetables and fruits in diet. BMI: Pt. needs to select one small change to decrease caloric intake or increase physical activity to help decrease weight. c. Correct treatment of hypoglycemia, carry a glucose source at all times on your person, in vehicles, and at bedside. Can use glucose tablets/4, four ounces of pop or juice equal to 15 G of carbohydrate. Blood glucose should be 100 mg/dl or higher when driving. d. ADA glucose goals for age and medical complexity reviewed e. Patient questions addressed 2. Activity/exercise: Encouraged to start any form of physical activity. Start low level and increase slowly to a minimal goal of 150 minutes/week. Limit activity to what is allowed by other issues such as cardiac, pulmonary or orthopedic restrictions. 3. Standards of care: Reminded to have an annual dilated eye exam, A1C every 3 months, urine testing for microalbumin once/year, check feet daily and report any cuts or sores that do not appear to be healing. 4. Meter: Plan to check blood glucose: Please check blood glucose levels 4 times/day. Back to back meals reveal effectiveness of bolus dosing. 5. [facility]. Contact office if any issues or concerns with patterns of hypoglycemia, hyperglycemia, or diabetes medication issues. 6. Prescriptions: Samples lyumjev u100 x2 pens- if pt would like to continue he is to notify office will switch to u200 d/t large volume of bolus he takes. Also given sample toujoe max x2 pens. Sample shivani 2 cgm given today. Mar, Dietary counseling and surveillance (ICD-10 - Z71.3) see above Mar, HTN (hypertension) (ICD-10 - I10) On jonathan. Mar, retirement current use of insulin (ICD-10 - Z79.4) Mar, Mixed hyperlipidemia (ICD-10 - E78.2) 11/2020 LDL 97.6 Triglycerides 347, on fenofibrate, Recommend moderate intensity statin. Mar, BMI 40.0-44.9, adult (ICD-10 - Z68.41) see above [facility] Other 09-22-2021 Evaluation note* Encounter Date Diagnosis Assessment Notes Treatment Notes Treatment Clinical Notes Dec, Type 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 with hyperglycemia (ICD-10 - E11.65) Erwin came in today for evaluation of his Shivani report after returning to work and continuing to use the device. Erwin is happy with the system and wants us to send a prescription to [facility] in [place]. Erwin's BG has averaged 163 for the last 14 days, 69% in range, 27% high, 4% very high, and 0% low. He had a few moments of BG below 70 but stated that he only felt low one time. He has been taking his insulin more often. Yamilex Gottlieb APRN and I discussed the patient's report and added a snack dose while he is at work of 4 units Humalog with Snack. Erwin understands. 30 minutes was spent educating the patient by Jacques Bhardwaj RN. Reviewed shivani download personally. If low glucose on cgm recommend confirmatory fingerstick. If meal to meal glucose <100 3/7 days recommend reducing meal humalog by 2 units. Recommend adding humalog 4 units for snack at MidNight. No further changes. [employer] DIRECTOR INDEX, RECORDS AND INFORMATION MANAGER-C, BC-ADM [employer] Other Evaluation + [facility] Evaluation noteNo InformationNort [employer] Other Evaluation noteNo assessment information available [facility] Work Phone: History general Narrative - Reported* Type Description Date Medical History diabetes mellitus Medical History hypertension Medical History pancreatitis Medical History HLP Medical History R foot ulcer Surgical History heart stent Surgical History RIGHT FOOT SECOND TOE AMPUTATED 07/03 Hospitalization History see above Hospitalization History Gastric issues 03/2017 [facility] Other History general Narrative - Reported* Type Description Date Medical History diabetes mellitus Medical History hypertension Medical History pancreatitis Medical History HLP Medical History R foot ulcer Surgical History heart stent Surgical History RIGHT FOOT SECOND TOE AMPUTATED 07/03 Surgical History 5 Bypass surgery [facility] john 12/31/2021 Hospitalization History see above Hospitalization History Gastric issues 03/2017 Hospitalization History [facility] ass surgery 12/2021 [facility] Other Histyse general Narrative - Reported* Type Description Date Medical History Heart failure with preserved eje ction fraction Medical History Acute prostatitis Medical History ASHD (arteriosclerotic heart dis ease) Medical History Balanitis Medical History Transient atrial fibrillation Medical History Unspecified open wou nd of unspecified toe(s) with damage to nail, subsequent encounter Medical History Type 2 diabetes david itus with diabetic polyneuropathy, unspecified whether intermediate designer insulin use Medical History retirement current use of insulin Medical History S/P CABG (coronary artery bypass graft) Medical History Morbid obesity Medical History Chronic venous insufficiency of lower extremity Medical History Lumbosacral spondylosis with rad iculopathy Medical History Charcot's joint of left foot Medical History Right foot pain Medical History Type 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 with hy perglycemia Medical History Hyperlipidemia type II Medical History Essential hypertension Medical History Crushing injury of left foot, gorman bsequent encounter Medical History Depression screening Medical History Type 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 with fo ot ulcer Medical History Foot ulcer, left, with fat layer exposed Medical History Ischemic cardiomyopathy Medical History Dilated cardiomyopathy Medical History Tinea cruris Medical History Lisfranc dislocation, left, init ial encounter Medical History Charcot's joint arth ropathy in type 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 Medical History Obesity Medical History Strain of lumbar region, initial encounter Medical History Hammer toe of left foot Medical History History of nephrolithiasis Medical History History of pancreatitis Surgical History LAP CHOLECYSTECTOMY 2008 Surgical History RIGHT FOOT SECOND TOE AMPUTATED 07/03 Surgical History 5 Bypass surgery [facility], CABG.4-5 [facility] 12/31/2021 Surgical History C PTCA/STENT LAD 2007 Surgical History COLONOSCOPY Hospitalization History see above Hospitalization History Gastric issues 03/2017 Hospitalization History [facility] ass surgery 12/2021 [facility] Other Hospital course Narrative No data available for this section [facility] Progress note No data available for this section [facility] Reason for referral (narrative) Referred by: Isaak HACKETT MD [facility] Chief Complaint and Reason for Visit Chief Complaint e11.65 E11.65 Advance Directives No Advanced Directives Records Found Advance Directive Response Recorded Date/ Time Advance Directives No September 28 1:24pm Reason for Referral Reason *Waiting for appt Diabetic patient being referred for possible abscess following an injury to his right index finger Diagnosis 1 Crushing injury of r ight index finger, initial encounter (S67.190A) Diagnosis 2 Abscess of finger of right hand (L02.511) [facility] Referring Provider First Name Fahad Referring Provider Last Name Yola Referring Provider Specialty Internal Me dicine Referred Organization [facility] Referred Provider Yarelis Santacruz Referred Address [address] [place], [place],[address] Referred Provider Specialty Orthopedic S urgery Referral Priority Routine General Notes Patient pinched his finger, resulting in an small finger tip hematoma. Subsequently, developed throbbing and what appears to be an abscess of the finger tip. He is diabetic and at increased risk for complications. XR were negative for fracture. He was prescribed antibiotics and instructed to soak couple times each day for 5-10 minutes. He is being referred for possible I&D procedure. Krista Olsen 01/23/2023 12:21:08 PM >received today, sent P2P Reason Erectile Dysfunction ; patient needs appt after 330pm. Diagnosis 1 Erectile dysfunction (N52.9) Referral Organization [facility] Referring Provider First Name Yamilex Referring Provider Last Name Bull Referring Provider Specialty Nurse Pract itionejonathan Referred Organization Unknown Facility Referred Provider Isaak Hackett Referred Provider Specialty Urology Referral Priority Routine Referral Appointment Date 2023-03-22 General Notes Tracie Alvarado 11/15 08:20:19 AM >Spoke to Poonam and patient scheduled for [place] office on 03/22/23 at 11am at [address] [place] [address] [address] in [employer]. Tracie Alvarado 11/28/2022 09:35:22 AM >Text message sent to patient requesting he call me for Referral details. Tracie Alvarado 11/28/2022 12:00:13 PM >Patient returns my call and is informed of appt. Reason Left great toe wound from new work boots - appt needs to be after 2pm Diagnosis 1 Type 2 diabetes david itus with hyperglycemia (E11.65) Referral Organization [facility] Referring Provider First Name Yamilex Referring Provider Last Name Bull Referring Provider Specialty Nurse Pracsukhdev uriasionejonathan Referred Organization Unknown Facility Referred Provider Damian Ontiveros Referred Provider Specialty Podiatry - S urgical Chiropody Referral Priority Routine Referral Appointment Date 2022-08-24 General Notes Tracie Alvarado 11/2022 04:17:56 PM >Spoke with Mellissa. Patient scheduled for 08/24/22 at 2pm. Patient informed. Summary Purpose Family History No Family History Records FoundNo Family History Records FoundNo Family History Records Found No data available for this section No Family History Records Found Additional Source Comments REASON FOR VISIT (unrecogniz ed section and content) Shivani DownloadDM 3 MONTH F/U , Type 2 IDDM shivani 2 cgm f/u with [employer] DIRECTOR INDEX, RECORDS AND INFORMATION MANAGER- C, BC-ADMTKM script for lyumjevTKM new Shivani readerDM 3 MONTH F/U, Type 2 IDDM shivani 2 cgm f/u with [employer] DIRECTOR INDEX, RECORDS AND INFORMATION MANAGER-C, BC-ADMDYSURIADYSURIADM 3 month follow up, Type 2 IDDM shivani 2 cgm f/u with [employer] DIRECTOR INDEX, RECORDS AND INFORMATION MANAGER-C, BC-ADMlabs/hospital dischargelab results3 MONTH FOLLOW UPDM 3 month follow up pt rescheduled, Type 2 IDDM shivani 2 cgm f/u with [employer] DIRECTOR INDEX, RECORDS AND INFORMATION MANAGER-C, BC-ADM1 month recheck following medication changeDM 3 month follow up pt rescheduled, Type 2 IDDM shivani 2 cgm f/u with [employer] DIRECTOR INDEX, RECORDS AND INFORMATION MANAGER-C, BC-ADMWELLNESSWELLNESSDM 3 month follow up pt rescheduled, Type 2 IDDM shivani 2 cgm f/u with [employer] DIRECTOR INDEX, RECORDS AND INFORMATION MANAGER-C, BC-ADMTKM - REFILL REQUEST FOR METFORMINPinched Finger-SwollenPinched Finger-SwollenDM 3 month follow up pt rescheduled, Type 2 IDDM shivani 2 cgm f/u with [employer] DIRECTOR INDEX, RECORDS AND INFORMATION MANAGER-C, BC-ADMRecheck Right Index FingerORTHO CONSULT NOTE Care Teams (unrecognized sec tion and content) Team Status: Inactive Member Role Status Dates Fahad Salinas , Primary Care Provider Active Yamilex Gottlieb APRN Attending Provider Active Team Status: Active Member Role Status Dates Fahad Salinas , Primary Care Provider Active Yamilex Gottlieb APRN Attending Provider Active Team Status: Active Member Role Status Dates Fahad Salinas , Primary Care Provider Active Goals (unrecognized section and content) Goals may be documented in a n alternate section (unrecognized sect ion and content) No Status Records FoundNo Status Records FoundNo Status Records FoundNo Status Records Found INFORMATION SOURCE (unrecogn ized section and content) DATE CREATED AUTHOR 08/31/2022 [facility] DATE CREATED AUTHOR AUTHOR'S ORGANIZ ATION 01/21/2023 [facility] DATE CREATED AUTHOR AUTHOR'S ORGANIZ ATION 03/11/2023 [facility] DATE CREATED AUTHOR AUTHOR'S ORGANIZ ATION 03/31/2023 [facility] FOR RECORDS PERTAINING TO PATIENTS WHO ARE OR HAVE BEEN ENROLLED IN A CHEMICAL DEPENDENCY/SUBSTANCEABUSE PROGRAM, SOME INFORMATION MAY BE OMITTED. This clinical summary was aggregated from multiple sources. Caution should be exercised in using it in the provision of clinical care. This summary normalizes information from multiple sources, and as a consequence, information in this document may materially change the coding, format and clinical context of patient data. In addition, data may be omitted in some cases. CLINICAL DECISIONS SHOULD BE BASED ON THE PRIMARY CLINICAL RECORDS. [employer] provides no warranty or guarantee of the accuracy or completeness of information in this document.
== END 2023-04-18 09:55 | disposition home or self-care (01) ==
LOC: WC 09:54
PROVIDERS: PCP Internal Medicine; Visit Provider Podiatrist Foot & Ankle Surgery
DX: E11.621 Type 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 with foot ulcer (principal); L97.522 Non-pressure chronic ulcer of other part of left foot with fat layer exposed
CPT/HCPCS: 97597

== ENCOUNTER 2023-06-19 07:51 | Outpatient (OUT) | payer OTHER, SELFPAY ==
--- OUTSIDE RECORDS SUMMARY | 2023-06-19 07:55 | XMS_ITS | CCD ---
Author Name Unknown Address [address] [facility] [facility] [address] [place] [address] Organization [facility] Care Team Providers Care User Experience Developer Name Role Phone Yamilex Gottlieb Unavailable Celestina Greene Unavailable DO Fahad Salinas Primary Care Provider JAKE Gottlieb Attending Provider [phone] Fahad Salinas Unavailable YOLA, DR GUSTAFSON Primary Care Unavailable VICKEY LANE Attending Unavailable VICKEY LANE Admitting Unavailable DARNELL OVALLE Attending Unavailable KATDARNELL REINOSO Admitting Unavailable BALL, DR GUSTAFSON Primary Care Unavailable WEST, DR STORM Coffey Consulting Unavailable DARNELL OVALLE Consulting Unavailable BALL, DR GUSTAFSON Admitting Unavailable BALL, DR GUSTAFSON Primary Care Unavailable BALL, DR GUSTAFSON Attending Unavailable HIGHLANDER, DAMIAN Amos Admitting Unavailable BALL, DR GUSTAFSON Primary Care Unavailable HIGHLANDERDAMIAN Attending Unavailable HIGHLDAMIAN SEGUNDO Attending Unavailable BALL, DR GUSTAFSON Primary Care Unavailable DAMIAN ONTIVEROS [...] DR GUSTAFSON Primary Care Unavailable MOUKARBEL, DR COTTRLEL Consulting Unavailable MOUKARBCHAPO, DR COTTRELL Attending Unavailable MOUKAROSIEEL, DR COTTRELL Admitting Unavailable HIGHLANDER, DAMIAN Amos Admitting Unavailable BALL, DR GUSTAFSON Primary Care Unavailable KAREEN, DAMIAN Amos Attending Unavailable MOUKAHAYDEN, SIMBA Attending Unavailable ROBYN NEGRON Attending Unavailable RESEARCH, COORDINATOR Attending Unavailmicki CURRAN, SIMBA Attending Unavailable JOCE HOOKS Attending Unavailable Yarelis Santacruz Unavailable YAMILEX GOTTLIEB Primary Care Physician ANTONIA HACKETT Referring Unavailable JIAN DURAN Attending UnavailAntonia Whelan Unavailable YAMILEX GOTTLIEB Referring Unavailable Antonia HACKETT Attending Unavailable DO Fahad Salinas Primary Care Provider JAKE Gottlieb Attending Provider [phone] Yamilex Gottlieb Attending Unavailable Yamilex Gottlieb Admitting Unavailable Fahad Salinas Primary Care Unavailable Allergies Allergy Classification Reported Allergen(s) Allergy Type Date of Onset Reaction(s) Facility (20 sources) empagliflozin Drug Allergy uti [facility] Other (20 sources) icosapent ethyl Drug Allergy n/v [facility] Other (1 source) empagliflozin Drug Allergy [address] [place] [address] Repository (1 source) icosapent ethyl Drug Allergy [address] [place] [address] Repository Medications Current Medications Medication Drug Class(es) Dates Sig (Normalized) Sig (Original) amoxicillin 875 mg / clavulanate 125 mg [...] aspirin 81 mg delayed release oral tablet (20 sources) Platelet Aggregation Inhibitor, Nonsteroidal Anti-inflammatory Drug Start: 06-26-2018 Aspirin (Lucio Low Dose Aspirin) 81 mg Tablet,Delayed Release (Dr/Ec) Active 81 MG PO Daily June 25, 2018 11:00pm take 1 tablet by mouth once benigno y Aspirin 81 81 MG 1 tablet Orally Once a day Active take 1 tablet by mouth once benigno y Aspirin 81 81 MG 1 tablet Orally Once a day Active Comment on above: Take 81 mg by mouth. atenolol 25 mg oral tablet (12 sources) beta-Adrenergic Radhika Start: 06-26-2018 Atenolol Active 25 MG PO 1200 June 25, 2018 11:00pm bumetanide 1 mg oral tablet (8 sources) Loop Diuretic Start: 04-19-2023 take 1 tablet by mouth every twenty-four hours Bumetanide 1 MG 1 tablet Orally Once a day for 30 days Apr, Active bumetanide (BUME X ORAL) Take by mouth. 0 Active take 1 tablet by mouth once benigno y Bumex 1 MG 1 tablet Orally Once a day Active Comment on above: Take by mouth. canagliflozin 300 mg oral tablet (2 sources) Sodium-Glucose Cotransporter 2 Inhibitor Start: Canagliflozin Active 300 MG PO 1200 June 25, 2018 11:00pm cinnamon bark 500 mg oral capsule (2 sources) Start: take 1 capsule by mouth twice daily Cinnamon Bark (Cinnamon) 500 mg Capsule Active 500 MG PO Twice daily June 25, 2018 11:00pm clopidogrel 75 mg oral tablet (13 sources) P2Y12 Platelet Inhibitor Start: clopidogrel 75 mg Tab Refills(s) 0 Start Date: 03/22/23 Status: Ordered dapagliflozin 10 mg oral tablet (20 sources) Sodium-Glucose Cotransporter 2 Inhibitor Start: 12-06-2 023 Farxiga 10 mg oral tablet Refills(s) 0 Start Date: 03/22/23 Status: Ordered ezetimibe 10 mg oral tablet (3 sources) Dietary Cholesterol Absorption Inhibitor Start: 024 take 1 tablet by mouth every twenty-four hours Ezetimibe 10 MG 1 tablet Orally Once a day for 30 days Apr, Active famotidine 40 mg oral tablet (17 sources) Histamine-2 Receptor Antagonist Start: 023 take 1 tablet by mouth every twenty-four hours Famotidine 40 MG 1 tablet at bedtime Orally Once a day Apr, Active fenofibrate 145 mg oral tablet (12 sources) Peroxisome Proliferator Receptor alpha Agonist Start: 019 Fenofibrate Nanocrystallized Active 145 MG PO 1200 June 25, 2018 11:00pm Fish Oils (19 sources) Fish Oil Active FreeStyle Shivani 2 Sensor - (20 sources) Start: FreeStyle Shivani 2 Sensor - as directed In Vitro Change Every 14 days for 84 days Dec, Active FreeStyle Shivani 2 Sensor - CHANGE EVERY 14 DAYS for 84 Active hydroCHLOROthiazide 25 mg oral tablet (12 sources) Thiazide Diuretic Start: 06-26-2018 Hydrochlorothiazide Active 25 MG PO 1200 June 25, 2018 11:00pm 3 ml insulin aspart, human 100 unt/ml pen injector (19 sources) Insulin Analog Start: 06-26-2018 Insulin Aspart U-100 Active June 25, 2018 11:00pm insulin aspart U -100 (NOVOLOG) 100 unit/mL Inject 25 Units subcutaneously. 0 Active NovoLOG FlexPen 100 UNIT/ML 32 units ac breakfast and 38 units ac supper plus corrective scale 1:10 ac tid (hs if >200 half dose) titrate up to 90 units/day) Subcutaneous As Directed for 90 day(s) Not-Taking Comment on above: Inject 25 Units subc utaneously. 3 ml insulin glargine 300 unt/ml pen injector (20 sources) Insulin Analog Start: 03-22-2023 Toujho Max SoloStar 300 units/mL subcutaneous solution Refills(s) 0 Start Date: 03/22/23 Status: Ordered Start: 06-26-2018 inject 60 [IU] by gorman bcutaneous injection once daily at bedtime Insulin Glargine U-300 Conc Active 60 UNIT SUBCUT Daily at bedtime June 25, 2018 11:00pm Toujeo Max SoloS tar 300 UNIT/ML 72 [...] injector (20 sources) Insulin Analog Start: 03-22-2023 Lyumjev KwikPe n 100 units/mL injectable solution Refills(s) 0 Start Date: 03/22/23 Status: Ordered Start: 05-04-2021 Lyumjev KwikPe n 100 UNIT/ML 32 units ac breakfast , 38 supper plus ISS 1: 10 ac, (hs if >200 half dose) (expect daily dose 80 units) Subcutaneous ACHS Apr, Active LEVEMIR FLEXTOUCH 100 UNIT/ ML (4 sources) LEVEMIR FLEXTOUC H 100 UNIT/ ML 42 units Subcutaneous bid Active lisinopril 10 mg oral tablet (12 sources) Angiotensin Converting Enzyme Inhibitor Start: 9 Lisinopril Active 10 MG PO 1200 June 25, 2018 11:00pm magnesium oxide 400 mg oral tablet (19 sources) take 1 tablet by mouth every twenty-four hours Magnesium Oxide 400 MG 1 tablet as needed Orally Once a day Active Magnesium, Zinc, Vitamin D (2 sources) Start: 9 take 1 tablet by mouth once daily at bedtime Magnesium, Zinc, Vitamin D Active 1 TAB PO Daily at bedtime June 25, 2018 11:00pm Start: 06-26-2018 take 1 tablet by [facility] once daily at bedtime Magnesium, Zinc, Vitamin D Active 1 TAB PO Daily at bedtime June 26, 2018 12:00am Multivitamin preparation (2 sources) Start: 06-26-2018 take 1 tablet by mouth once daily Multivitamin Active 1 TAB PO Daily June 25, 2018 11:00pm Start: 06-26-2018 take 1 tablet by [facility] once daily Multivitamin Active 1 TAB PO Daily June 26, 2018 12:00am niacin 500 mg oral tablet (2 sources) Nicotinic Acid Start: 06-26-2018 take 500 mg by mouth once daily at bedtime Niacin Active 500 MG PO Daily at bedtime June 25, 2018 11:00pm pantoprazole 40 mg delayed release oral tablet (17 sources) Proton Pump Inhibitor Start: 06-17-[address] Tab Refills(s) 0 Start Date: 03/22/23 Status: Ordered sacubitril 24 mg / valsartan 26 mg oral tablet (20 sources) Angiotensin 2 Receptor Radhika Start: 03-22-2023 Entresto 24 mg-26 mg oral tablet Refill(s) 0 Start Date: 03/22/23 Status: Ordered ENTRESTO 24 mg/2 6 mg 1 orally twice a day Active sildenafil 100 mg oral tablet (13 sources) Phosphodiesterase 5 Inhibitor Start: 10-17-2022 take 1 tablet by mouth once daily as needed Sildenafil Citrate 100 MG 1 tablet Orally Once a day, as needed for ED for 30 days Oct, Active spironolactone 25 mg oral tablet (20 sources) Aldosterone Antagonist Start: 03-22-2023 spironolactone 25 mg Tab Refills(s) 0 Start Date: 03/22/23 Status: Ordered tiZANidine 4 mg oral tablet (14 sources) Central alpha-2 Adrenergic Agonist Start: 03-22-2023 tiZANidine 4 mg Tab Refills(s) 0 Start Date: 03/22/23 Status: Ordered Completed/Discontinued Medications Medication Drug Class(es) Dates Sig (Normalized) Sig (Original) acetaminophen 325 mg oral tablet (3 sources) Start: 01-15-2022 take 2 tablets by mouth every six hours as needed acetaminophen (TYLENOL) 325 mg tablet Take 650 mg by mouth every 6 hours as needed. 0 01/15/2022 Active Comment on above: Take 650 mg by mouth every 6 hours as needed. amiodarone hydrochloride 200 mg oral tablet (19 sources) Antiarrhythmic Start: 03-24-2023 take 1 tablet by mouth once amiodarone (PACERONE) 200 mg tablet Take 1 tablet by mouth every afternoon. 0 03/24/2023 Active Comment on above: Take 1 tablet by [facility] every afternoon. atorvastatin 80 mg oral tablet (20 sources) HMG-CoA Reductase Inhibitor Start: 03-22-2023 take 1 tablet by mouth once daily in the evening atorvastatin (LIPITOR) 80 mg tablet Take 80 mg by mouth every evening. 0 03/26/2023 Active Comment on above: Take 80 mg by mouth every evening. ciprofloxacin 500 mg oral tablet (5 sources) [...] if needed for 3 days August, Not-Taking 24 hr metFORMIN hydrochloride 500 mg extended release oral tablet (20 sources) Biguanide Start: 02-01-2023 take 1 tablet by mouth every twelve hours metFORMIN ER (GLUCOPHAGE XR) 500 mg 24 hr tablet Take 1 tablet by mouth every 12 hours. 0 02/01/2023 Active Start: 06-26-2018 MetFORMIN (Eqv -Glucophage XR) 500 mg oral tablet, extended release Refills(s) 0 Start Date: 03/22/23 Status: Ordered Start: 06-26-2018 Metformin (Glu cophage) 500 mg Tablet Active 1000 MG PO 1800 June 25, 2018 11:00pm take 500 mg by mouth three times daily metFORMIN HCl ER 500 MG 500 mg Orally tid Active take 1 tablet by [facility] twice daily metFORMIN HCl ER 500 MG TAKE 1 TABLET BY MOUTH TWICE A DAY for 90 Active take 500 mg by mouth four times daily metFORMIN HCl ER 500 MG 500 mg Orally qid Active Comment on above: Take 1 tablet by [facility] every 12 hours. 24 hr metoprolol succinate 100 mg extended release oral tablet (20 sources) beta-Adrenergic Radhika Start: 03-05-2023 take 1 tablet by mouth in the morning metoprolol succinate ER (TOPROL XL) 100 mg TAKE 1 TABLET BY MOUTH IN THE MORNING AND 1 TABLET AT BEDTIME 0 03/05/2023 Active take 1 tablet by mouth twice evelyne ly Metoprolol Succinate ER 100 MG 1 tablet Orally twice daily Active Comment on above: TAKE 1 TABLET BY [facility] IN THE MORNING AND 1 TABLET AT BEDTIME omega 8-czw-qtl-fish oil (FISH OIL) 100-160-1,000 mg cap (3 sources) omega 8-wcw-ufd-fish oil (FISH OIL) 100-160-1,000 mg cap Take 1,000 mg by mouth. 0 Active Comment on above: Take 1,000 mg by [facility]. pioglitazone 30 mg oral tablet (13 sources) Peroxisome Proliferator Receptor alpha Agonist, Peroxisome Proliferator Receptor gamma Agonist, Thiazolidinedione take 1 tablet by mouth once daily at bedtime Pioglitazone HCl 30 MG 1 tablet Orally Once a day at hs Not-Taking microencapsulated potassium chloride 20 meq extended release oral tablet (3 sources) Start: 2021 potassium chloride ER (KLOR-CON) 20 mEq tablet Take 20 mEq by mouth. 0 03/02/2022 Active Comment on above: Take 20 mEq by mouth . Problems Active Problems Problem Classification Problem Date [...] Coronary arteriosclerosis; 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: [Atherosclerotic heart disease of [place] coronary artery without angina pectoris] Onset: 01-06-2022 [...] Onset: 03-24-2021 Resolved: 10-21-2021 Chronic Esophageal disorders (16 sources) Gastro-esophageal reflux disease with esophagitis; 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: [...] Episodic Inflammatory conditions of male genital organs (19 sources) Balanitis; 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: [Balanitis] Onset: 03-22-2023 Chronic Inflammatory conditions of male genital organs (17 sources) Acute prostatitis; 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: [Acute prostatitis] Episodic Intestinal infection (1 source) Balantidiasis 03-22-2023 Episodic Nutritional deficiencies (20 sources) Vitamin D deficiency; 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: [Vitamin D deficiency, unspecified] Chronic Nutritional deficiencies (5 sources) Deficiency of other specified B group vitamins Onset: 10-21-2021 Resolved: 10-21-2021 Episodic Open wounds of extremities (17 sources) Open wound of toe(s) with damage to nail; 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: [Unspecified open wound of unspecified toe(s) with damage to nail, subsequent encounter] Episodic Other aftercare (20 sources) Long-term current use of insulin; 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: [nursing home (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] Episodic Other aftercare (8 sources) nursing home (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; 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: [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] Onset: 03-24-2021 Resolved: 10-21-2021 Episodic Other aftercare (1 source) Long-term current use of anticoagulant; 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: [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] Onset: 03-22-2023 Episodic Other and ill-defined heart disease (1 source) Heart disease 03-22-2023 Chronic Other connective tissue disease (18 sources) Pain in right foot; 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: [Pain in right foot] Onset: 02-24-2022 Episodic Other diseases of veins and lymphatics (17 sources) Peripheral venous insufficiency; 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: [Venous insufficiency (chronic) (peripheral)] Episodic Other diseases of veins and lymphatics (3 sources) Venous insufficiency (chronic) (peripheral) Episodic Other hereditary and degenerative nervous system conditions (1 source) Other idiopathic peripheral autonomic neuropathy; 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: [OTH IDIO PERIPH AUTONOM NEUROPATHY] Onset: 09-20-2021 Chronic Other lower respiratory disease (1 source) Chronic pulmonary edema; 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: [CHRONIC PULMONARY EDEMA] Onset: 01-06-2022 Chronic Other male genital disorders (13 sources) Erectile dysfunction co-occurrent and due to arterial insufficiency; 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: [Erectile dysfunction due to arterial insufficiency] Chronic Other male genital disorders (3 sources) Erectile dysfunction due to arterial insufficiency Chronic Other male genital disorders (15 sources) Male erectile dysfunction, unspecified; 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: [Erectile dysfunction] Onset: 03-22-2023 Chronic Other male genital disorders (1 source) Acquired buried penis; 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] Onset: 05-03-2023 Chronic Other male genital disorders (1 source) Induration penis plastica; 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: [Scarring of penis] Onset: 05-03-2023 Chronic Other male genital disorders (1 source) Erectile dysfunction due to diseases classified elsewhere; 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: [Erectile dysfunction associated with type 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 (HCC) (HCC)] Onset: 05-03-2023 Chronic Other male genital disorders (3 sources) Acquired buried penis; 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] Onset: 05-03-2023 05-03-2023 Chronic Other male genital disorders (3 sources) Fibrosis of corpus cavernosum; 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: [Induration penis plastica] Onset: 05-03-2023 05-03-2023 Chronic Other male genital disorders (2 sources) Phimosis; 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: [Phimosis] Onset: 03-22-2023 Episodic Other non-traumatic joint disorders (17 sources) Arthropathy associated with a neurological disorder; [...] Chronic Other nutritional; endocrine; and metabolic disorders (17 sources) Morbid obesity; 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: [Morbid (severe) obesity due to excess calories] Chronic Other nutritional; endocrine; and metabolic disorders (3 sources) Body mass index (BMI) 39.0-39.9, adult Chronic Other nutritional; endocrine; and metabolic disorders (1 source) Obesity, unspecified; 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: [OBESITY UNSPECIFIED] Onset: 01-06-2022 Chronic Other screening for suspected conditions (not mental disorders or infectious disease) (3 sources) Encounter for screening for malignant neoplasm of prostate; 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: [Patient encounter status] Episodic Skin and subcutaneous tissue infections (2 sources) Cutaneous abscess of right hand Episodic Spondylosis; intervertebral disc disorders; other back problems (18 sources) Lumbosacral spondylosis with radiculopathy; 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: [Other spondylosis with radiculopathy, lumbosacral region] Onset: 11-01-2021 Chronic Superficial injury; contusion (4 sources) Blister (nonthermal), left great toe, initial [...] BYPASS GRAFT] Onset: 01-31-2022 Episodic Esophageal disorders (4 sources) Esophageal disorders Mycoses (1 source) Tinea unguium; 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: [TINEA UNGUIUM] Onset: 09-20-2021 Episodic Nonspecific chest pain (3 sources) Chest pain, unspecified; 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: [CHEST PAIN UNSPECIFIED] Onset: 12-31-2021 Episodic Other aftercare (1 source) nursing home (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 of oral hypoglycemic drugs; 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: [NURSING HOME USE ORAL HYPOGLYCEMIC DX] Onset: 01-06-2022 Episodic [...] Test Name Value Interpretation Reference Range Facility Consultation Noteon 05-15-19 Consultation Note [id number]. 00TIFF Arnaldo [facility] CNOVon 05-03-2023 CNOV Office Visit (UROLMN ) CADEN WILLS ([id number]) 1960 M Date Time Provider Department 05/03/23 2:00 PM JIAN DURAN During your visit today, we recorded the following information about you: Pulse Blood pressure Weight Height 67/minute 137/78 123.4 kg 1.778 m Jian Duran MD 05/03/2023 2:28 PM Signed [facility] NEW PATIENT HISTORY AND PHYSICAL EXAM PATIENT INFO: Caden Wills 63 year old REFERRING M.D.: Antonia Hackett MD [address] [place], [place] [id number] This consult was requested by Dr. Hackett for an opinion regarding buried penis and erectile dysfunction, and my final recommendations will be communicated to the requesting health care provider by way of the shared medical record for internal providers or letter via the [employer] for external providers. HISTORY CHIEF COMPLAINT: Erectile dysfunction HPI: Caden Wills is a 63 year old male with a history of IDDM, CAD s/p 12/2021 CABG on ASA 81, CHF on diuretic, a fib on apixaban, HTN, who presents today for erectile dysfunction and penile issues. 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 He had a UTI after surgery which led to scar development. Prior to this time he states he had minimally reduced erectile function. He now gets sensation of spontaneous morning erections however unable to be exposed due to his scarring. He tried a PDE 5-I one-time without exposure of his penis. He is voiding with what he thinks is a decent stream, has impaired sensation and often goes extended periods before voiding. Has leaked a little bit on the way to the bathroom, not wearing any pads or depends. No UTIs or hematuria since the episode in 2021. Denies prior surgery. Does have a history of kidney stones. 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 , interested in future sexual life. MEDICATIONS: No current outpatient medications on file. No current facility-administered medications for this visit. MEDICATION ALLERGIES: ALLERGIES Not on File No past medical history on file. No past surgical history on file. FAMILY HISTORY: NEGATIVE: No related previous family history. PHYSICAL EXAM: There were no vitals taken for this visit. GENERAL: no acute distress, well appearing, pleasant RESP: normal work of breathing on room air ABDOMEN: soft, moderate panniculus non tender, no palpable masses, no CVA tenderness EXTREMITIES: no extremity edema GENITOURINARY: moderate pubic escutcheon, buried penis under decently tight cicatrix with area of excoriation/raw skin, unable to expose glans, no lesions, unremarkable scrotum with bilaterally descended testicles of expected size without mass or tenderness on palpation PVR 150 cc LABS AND IMAGING: No recent labs MEDICAL DECISION MAKING: (A1) IMPRESSION: (Diagnostic Possibilities) New or Established 1) buried penis: phimotic cicatrix preventing exposure of glans, escutcheon on exam also contributing to burying 2) erectile dysfunction: setting of vasculogenic (heart disease) and neurogenic etiology (DM) in addition to inability for penis to be exposed due to cicatrix/buried penis 3) 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 (A2) PLAN: (Management Options) - discussed buried penis repair - timed voids q3h Giovanni Dawson MD Male Genitourinary Reconstruction AND Prosthetic Surgery Fellow Electronically signed STAFF NOTE: I evaluated the patient and personally participated in the henderson components. I agree with the resident's findings and plan as documented and have discussed the case and management of the patient's care with the resident. Referred for evaluation of buried penis and erectile dysfunction. Available outside records reviewed. Since the time of cardiac surgery, the penis has been completely buried. This interferes significantly with voiding and sexual function. He has been circumcised in the past. On examination, there is scarring and narrowing of the skin overlying the penis, glans penis cannot be seen. There is a little bit of remaining dorsal normal penile skin. Scrotum is normal. Mons escutcheon is somewhat prominent and low-lying, contributes to problem with buried penis. Urinalysis pending PVR noted ASSESSMENT/PLAN: (more content not included)... Normal [facility] URINALYSIS, REFLEX MICROSCOP ICon 05-03-2023 Bilirubin Ql (U) Negative Normal Negative Gustavo amos [facility] Comment on above: Order Comment: Speci men Type: URINE SPECIMEN Ordering Facility: [facility] Address: [address] [place] [address] Performed By: #### L [id number] #### [facility] CLIA [id number] [address] [place] [address] [place] Clarity (Unsp spec) Clear Normal Clear [facility] Comment on above: Order Comment: Speci men Type: URINE SPECIMEN Ordering Facility: [facility] Address: [address] [place] [address] Performed By: #### L [id number] #### [facility] CLIA [id number] [address] [place] [address] [place] Color (U) Light Yellow Normal Yellow [facility] Comment on above: Order Comment: Speci men Type: URINE SPECIMEN Ordering Facility: [facility] Address: [address] [place] [address] Performed By: #### L [id number] #### [facility] CLIA [id number] [address] [place] [address] [place] Glucose Test strip (U) [Mass/Vol] 4+ Abnormal Trace, Negative [facility] Comment on above: Order Comment: Speci men Type: URINE SPECIMEN Ordering Facility: [facility] Address: [address] [place] [address] Performed By: #### L [id number] #### [facility] CLIA [id number] [address] [place] [address] [place] Hemoglobin Ql (U) Negative Normal Negative, Trace [facility] Comment on above: Order Comment: Speci men Type: URINE SPECIMEN Ordering Facility: [facility] Address: [address] [place] [address] Performed By: #### L [id number] #### [facility] CLIA [id number] [address] [place] [address] [place] Ketones Ql (U) Negative Normal Negative, Trace [facility] Comment on above: Order Comment: Speci men Type: URINE SPECIMEN Ordering Facility: [facility] Address: [address] [place] [address] Performed By: #### L [id number] #### [facility] CLIA [id number] [address] [place] [address] [place] Leukocyte esterase Test strip Ql (U) 25 Quintin/uL Normal Negative, 25 Quintin/uL [facility] Comment on above: Order Comment: Speci men Type: URINE SPECIMEN Ordering Facility: [facility] Address: [address] [place] [address] Performed By: #### L [id number] #### [facility] CLIA [id number] [facility] [place] [address] [place] Nitrite Ql (U) Negative Normal Negative [facility] Comment on above: Order Comment: Speci men Type: URINE SPECIMEN Ordering Facility: [facility] Address: [address] [place] [address] Performed By: #### L [id number] #### [facility] CLIA [id number] [address] [place] [address] [place] pH (U) 5.5 [pH] Normal 5.0-8.0 [facility] Comment on above: Order Comment: Speci men Type: URINE SPECIMEN Ordering Facility: [facility] Address: [address] [place] [address] Performed By: #### L [id number] #### [facility] CLIA [id number] [address] [place] [address] [place] Protein (U) [Mass/Vol] Negative Normal Trace , Negative [facility] Comment on above: Order Comment: Speci men Type: URINE SPECIMEN Ordering Facility: [facility] Address: [address] [place] [address] Performed By: #### L [id number] #### [facility] CLIA [id number] [address] [place] [address] [place] Specific gravity (U) [Rel density] 1.032 High 1.005-1.030 [facility] Comment on above: Order Comment: Speci men Type: URINE SPECIMEN Ordering Facility: [facility] Address: [address] [place] [address] Performed By: #### L [id number] #### [facility] CLIA [id number] [address] [place] [address] [place] Urobilinogen Ql (U) Negative Normal Negative [facility] Comment on above: Order Comment: Speci men Type: URINE SPECIMEN Ordering Facility: [facility] Address: [address] [place] [address] Performed By: #### L [id number] #### [facility] CLIA [id number] [address] [place] [address] [place] Bilirubin Ql (U) Negative Negative [facility] Clarity (Unsp spec) Clear Clear [facility] Color (U) Light Yellow Yellow [facility] Glucose Test strip (U) [Mass/Vol] 4+ Abnormal Trace, Negative [facility] Hemoglobin Ql (U) Negative Negative, Trace [facility] Ketones Ql (U) Negative Negative, Trace [facility] Leukocyte esterase Test strip Ql (U) 25 Quintin/uL Negative, 25 Quintin/uL [facility] Nitrite Ql (U) Negative Negative [facility] pH (U) 5.5 [pH] 5.0 - 8.0 [facility] Protein (U) [Mass/Vol] Negative Trace , Negative [facility] Specific gravity (U) [Rel density] 1.032 High 1.005 - 1.030 [facility] Urobilinogen Ql (U) Negative Negative [facility] Physician Referralon 023 Physician Referral [id number]#1 .00TIFF Normal [facility] Physician Referralon 023 Physician Referral [id number]#1 .00TIFF Normal [facility] Physician Referralon 023 Physician Referral [id number]#1 .00TIFF Normal [facility] Screenson 03-23-2023 Screens [id number]#1 .00TIFF Normal [facility] Ambulatory Visit Summaryon 1 05-23-2022 Ambulatory Visit Summary CADEN WILLS :1960 Visit Date:03/22/2023 Ambulatory Visit Instructions Your Diagnosis ED (erectile dysfunction) Phimosis Hidden penis Balanoposthitis Anticoagulated Tests Performed Urnls Dip Stick Auto w/o Microscopy POC 11932 Your Care Team Attending Physician - Antonia HACKETT MD Primary Care Physician - YAIMLEX GOTTLIEB CNP Referring Physician - YAMILEX GOTTLIEB [...] Schedule the Following Appointments Follow Up with Antonia HACKETT MD, NITINL When: Where: [address] [place] [address] [place] [phone]- Someone Will Contact You Regarding These Appointments [facility] External Ambulatory Referral, Urology, Dr. Duran, 03/22/23 11:49:00 EST, Phimosis Normal [facility] Patient Educationon 03-22-20 Patient Education [...] these instructions at home: Medicines ? Take sllc-dml-coyoixl and prescription medicines only as told by [...] include cig (more content not included)... 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 S/p bypass [...] seen by Dr. Jian Duran at the [facility] for his opinion. He can utilize zdfv-eyq-vbxgnam Monistat cream/triple antibiotic on a as needed [...] with voice recognition artificial intelligence software, specifically [employer], [employer] and o (more content not included)... Normal [facility] Comment on above: Result Comment: Elec tronically Signed By: Antonia HACKETT MD\.br\Date and Time Signed: 03/22/23 12:07 EST\.br\Electronically Co-Signed By: Maria M Campos\.br\Date and Time Co-Signed: 03/22/23 11:53 EST A1C HEMOGLOBINon 03-08-2023 HbA1c (Bld) [Mass fraction] 7.2 % [employer] Other Glucose - FINGER STICKon Glucose [Mass/Vol] 187 mg/dL [employer] Other HbA1c (Bld) [Mass fraction]o n 03-08-2023 A1C HEMOGLOBIN [facility] [employer] Other Orders Onlyon 01-16-2023 Orders Only [id number] Caden Wills A 1960 M Date Provider Department Center 01/16/2023 ROBYN CASTILLOaren . Family History Problem Relation Age of Onset Coronary artery disease Father Family Status - Relation Status Age at Father Normal [facility] Office Visiton 12-06-2022 Follow-up visit [id number] Caden Wills A 1960 M Date Provider Department Center 12/06/2022 ROBYN CASTILLO [facility] Family History Problem Relation Age of Onset Coronary artery disease Father Family Status - Relation Status Age at Father Level of Service:55472 PA OFFICE/OUTPATIENT ESTABLISHED MOD MDM 30-39 MIN Reason for Visit and Comments: Follow-up [328034] - 6 month follow up [facility] A1C HEMOGLOBINon 11-24-2022 HbA1c (Bld) [Mass fraction] 6.6 % [employer] Other Glucose - FINGER STICKon Glucose [Mass/Vol] 102 mg/dL [employer] Other HbA1c (Bld) [Mass fraction]o n 11-24-2022 A1C HEMOGLOBIN [employer] Other A1C HEMOGLOBINon 08-22-2022 HbA1c (Bld) [Mass fraction] 6.5 % [employer] Other Glucose - FINGER STICKon Glucose [Mass/Vol] 159 mg/dL [employer] Other HbA1c (Bld) [Mass fraction]o n 08-22-2022 A1C HEMOGLOBIN [employer] Other Office Visiton 05-23-2022 Follow-up visit [id number] Caden Wills [place] 1960 M [facility] Provider Department Center 05/23/2022 SIMBA REYEZ BOB [facility] Family History Problem Relation Age of Onset Coronary artery disease Father Family Status - Relation Status Age at Father Level of Service:61272 PA OFFICE/OUTPATIENT ESTABLISHED MOD MDM 30-39 MIN Reason for Visit and Comments: Coronary Artery Disease [187] Hypertension [748425] Normal [facility] A1C HEMOGLOBINon 05-19-2022 HbA1c (Bld) [Mass fraction] 6.9 % [employer] Other Glucose - FINGER STICKon Glucose [Mass/Vol] 206 mg/dL [employer] Other HbA1c (Bld) [Mass fraction]o n 05-19-2022 A1C HEMOGLOBIN [facility] Other 37on 04-05-2022 37 -Proceed with previously recommended heart monitor -Discontinue Bumex, monitor swelling and weight - Continue cardiac rehab Normal [facility] Office Visiton 04-05-2022 Follow-up visit [id number] Caden Wills [place] 1960 M Date Provider Department Center 04/05/2022 JOCE SANDERS BOB Bennett Family History Problem Relation Age of Onset Coronary artery disease Father Family Status - Relation Status Age at Father Level of Service:17561 PA OFFICE/OUTPATIENT ESTABLISHED MOD MDM 30-39 MIN Reason for Visit and Comments: Coronary Artery Disease [187] Atrial Fibrillation [80] Congestive Heart Failure [127] NSTEMI [Other] Normal [facility] UA RANDOMon 04-05-2022 Bilirubin Ql (U) Negative Normal NEGATIVE [facility] Comment on above: Performed By: #### U A #### [facility] [address] [place] [address] Dr. Jose Rojas Clarity (U) CLOUDY Abnormal CLEAR [facility] Comment on above: Performed By: #### U A #### [facility] [address] [place] [address] Dr. Jose Rojas Color (U) LT. YELLOW Normal YELLOW [facility] Comment on above: Performed By: #### U A #### [facility] [address] [place] [address] Dr. Jose Rojas Glucose Ql (U) >1000 Abnormal NEGATIVE [facility] Comment on above: Performed By: #### U A #### [facility] [address] [place] [address] Dr. Jose Rojas Hemoglobin Ql (U) MODERATE Abnormal NEGATIVE [facility] Comment on above: Performed By: #### U A #### [facility] [address] [place] [address] Dr. Jose Rojas Ketones Ql (U) Negative Normal NEGATIVE [facility] Comment on above: Performed By: #### U A #### [facility] [address] [place] [address] Dr. Jose Rojas LEUKOCYTES MODERATE Abnormal NEGATIVE [facility] Comment on above: Performed By: #### U A #### [facility] [address] [place] [address] Dr. Jose Rojas Nitrite Ql (U) Negative Normal NEGATIVE [facility] Comment on above: Performed By: #### U A #### [facility] [address] [place] [address] Dr. Jose Rojas pH (U) 5.5 [pH] Normal 5-[address] [facility] Comment on above: Performed By: #### U A #### [facility] [address] [address] [address] Jose Rojas SPEC GRAVITY <=1.005 Abnormal 1.005-<=1.0 25 [facility] Comment on above: Performed By: #### U A #### [facility] [address] [address] [address] Jose Rojas UA PROTEIN Negative Normal NEGATIVE/ TRACE [facility] Comment on above: Performed By: #### U A #### [facility] [address] [address] [address] Jose Rojas Urobilinogen Qn (U) 0.2 {Ritu'U}/dL Normal 0.2 - 1. 0 [facility] Comment on above: Performed By: #### U A #### [facility] [address] [address] [address] Jose Rojas ECHOCARDIO M/2D COMPLETEon 1 05-31-2021 ECHOCARDIO M/2D COMPLETE Patient: CADEN WILLS Exam Date: 03/30/2022 : 1960 Gender:M Ordering : DR SIMBA CURRAN M.D. Admission #: [id number] Family : DR FAHAD SALINAS DChris Order #: [id number] CLICK HERE TO VIEW EXAM ECHOCARDIOGRAM REPORT [...] mm[Hg], 5.90 mm[Hg] Right Atrium Dictated by: Ehab Eltahawy, M.D. on 03/31/2022 at 14:37 Approved by: Tomás Muniz M.D. on 03/31/2022 at 14:44 Normal [facility] Refillon 02-23-2022 Refill [id number] Caden Wills [place] 1960 Date Provider Department Center 02/23/2022 VENANCIO [facility]AD[facility] Problem Relation Age of Onset Coronary artery disease Father Family Status - Relation Status Age at Father Reason for Visit and Comments: Med Refill [[id number]] Normal [facility] BNPon 02-16-2022 Natriuretic peptide B (Bld) [Mass/Vol] 335.0 pg/mL Normal <=900.0 [facility] Comment on above: Performed By: #### B CLINICAL PROFESSOR #### [facility] [address] [place] [address] Dr. Jose Rojas CBC AUTO DIFFon 02-16-2022 BASO # 0.1 103/ul Normal 0.0-0.1 [facility] Comment on above: Performed By: #### D ATCBC #### [facility] [address] [place] [address] Dr. Jose Rojas Basophils/100 WBC (Bld) 0.7 % Normal 0.2-2.0 [facility] Comment on above: Performed By: #### D ATCBC #### [facility] [address] [place] [address] Dr. Jose Rojas EO # 0.4 103/ul Normal 0.0-0.7 [facility] Comment on above: Performed By: #### D ATCBC #### [facility] [address] [place] [address] Dr. Jose Rojas Eosinophils/100 WBC (Bld) 3.9 % Normal 0.9-7.0 [facility] Comment on above: Performed By: #### D ATCBC #### [facility] [address] [place] [address] Dr. Jose Rojas Erythrocyte distribution width (RBC) [Ratio] 16.5 % Critically high 11.0-15.0 [facility] Comment on above: Performed By: #### D ATCBC #### [facility] [address] [place] [address] Dr. Jose Rojas Hematocrit (Bld) [Volume fraction] 44.9 % Normal 42.0-54.0 [facility] Comment on above: Performed By: #### D ATCBC #### [facility] [address] [place] [address] Dr. Jose Rojas Hemoglobin (Bld) [Mass/Vol] 14.3 g/dL Normal 14.0-18.0 [facility] Comment on above: Performed By: #### D ATCBC #### [facility] [address] [place] [address] Dr. Jose Rojas IG # 0.33 10e3/ul Critically high 0.00-0.03 [facility] Comment on above: Performed By: #### D ATCBC #### [facility] [address] [place] [address] Dr. Jose Rojas IG % 3.5 % Critically high 0.0-0.5 [facility] Comment on above: Performed By: #### D ATCBC #### [facility] [address] [place] [address] Dr. Jose Rojas LYMPH # 1.9 103/ul Normal 1.2-3.8 [facility] Comment on above: Performed By: #### D ATCBC #### [facility] [address] [place] [address] Dr. Jose Rojas Lymphocytes/100 WBC (Bld) 19.8 % Critically low 20.5-60.0 [facility] Comment on above: Performed By: #### D ATCBC #### [facility] [address] [place] [address] Dr. Jose Rojas MCH (RBC) [Entitic mass] 27.1 pg Normal 25.9-34.0 [facility] Comment on above: Performed By: #### D ATCBC #### [facility] [address] [place] [address] Dr. Jose Rojas MCHC (RBC) [Mass/Vol] 31.8 g/dL Normal 29.9-35.2 [facility] Comment on above: Performed By: #### D ATCBC #### [facility] [address] [address] [address] Jose Rojas MCV (RBC) [Entitic vol] 85.0 fL Normal 80.0-94.0 [facility] Comment on above: Performed By: #### D ATCBC #### [facility] [address] [place] [address] Dr. Jose Rojas MONO # 0.9 103/ul Critically high 0.3-0.8 [facility] Comment on above: Performed By: #### D ATCBC #### [facility] [address] [place] [address] Dr. Jose Rojas Monocytes/100 WBC (Bld) 9.1 % Normal 1.7-12.0 [facility] Comment on above: Performed By: #### D ATCBC #### [facility] [address] [place] [address] Dr. Jose Rojas NEUT # 6.0 103/ul Normal 1.4-6.5 [facility] Comment on above: Performed By: #### D ATCBC #### [facility] [address] [place] [address] Dr. Jose Rojas Neutrophils/100 WBC (Bld) 63.0 % Normal 43.0-75.0 [facility] Comment on above: Performed By: #### D ATCBC #### [facility] [address] [place] [address] Dr. Jose Rojas Platelet mean volume (Bld) [Entitic vol] 9.2 fL Critically low 9.5-13.5 [facility] Comment on above: Performed By: #### D ATCBC #### [facility] [address] [place] [address] Dr. Jose Rojas PLT 485 103/ul Critically high 150-450 [facility] Comment on above: Performed By: #### D ATCBC #### [facility] [address] [place] [address] Dr. Jose Rojas RBC 5.28 106/ul Normal 4.70-6.10 [facility] Comment on above: Performed By: #### D ATCBC #### [facility] [address] [address] [address] Jose Rojas WBC 9.6 103/ul Normal 4.0-11.0 [facility] Comment on above: Performed By: #### D ATCBC #### [facility] [address] [address] [address] Jose Rojas EMERSON- BMP WITH LIPIDon 2021 Anion gap [Moles/Vol] 14.3 mmol/L Normal [facility] Comment on above: Performed By: #### D ATBMP #### [facility] [address] [place] [address] Dr. Jose Rojas Calcium [Mass/Vol] 9.9 mg/dL Normal 8.5-10.1 [facility] Comment on above: Performed By: #### D ATBMP #### [facility] [address] [address] [address] Jose Rojas Chloride [Moles/Vol] 101 mmol/L Normal 98-107 [facility] Comment on above: Performed By: #### D ATBMP #### [facility] [address] [place] [address] Dr. Jose Rojas Cholesterol [Mass/Vol] 110 mg/dL Normal <=200 [facility] Comment on above: Performed By: #### D ATBMP #### [facility] [address] [address] [address] Jose Roajs Cholesterol in HDL [Mass/Vol] 28 mg/dL Critically low 40-60 [facility] Comment on above: Performed By: #### D ATBMP #### [facility] [address] [address] [address] Jose Rojas Cholesterol in LDL [Mass/Vol] 21.2 mg/dL Normal [facility] Comment on above: Performed By: #### D ATBMP #### [facility] [address] [address] [address] Jose Rojas CO2 [Moles/Vol] 28.2 mmol/L Normal 21.0-32.0 [facility] Comment on above: Performed By: #### D ATBMP #### [facility] [address] [address] [address] Jose Rojas Creatinine [Mass/Vol] 1.14 mg/dL Normal 0.70-1.30 [facility] Comment on above: Performed By: #### D ATBMP #### [facility] [address] [address] [address] Jose Rojas EGFR-AF AUSTRALIAN >60 Normal >=60 [facility] Comment on above: Performed By: #### D ATBMP #### [facility] [address] [address] [address] Jose Rojas EGFR-NON AF AUSTRALIAN >60 Normal >=60 [facility] Comment on above: Performed By: #### D ATBMP #### [facility] [address] [address] [address] Jose Rojas Glucose [Mass/Vol] 254 mg/dL Critically high 74-106 [facility] Comment on above: Performed By: #### D ATBMP #### [facility] [address] [address] [address] Jose Rojas HDL NORMAL > or = 60 mg/dl - LO W CARDIOVASCULAR RISK <40 mg/dl - HIGH CARDIOVASCULAR RISK Normal [facility] Comment on above: Performed By: #### D ATBMP #### [facility] [address] [address] [address] Jose Rojas LDL CALC NORMAL SEE BELOW Normal [facility] Comment on above: Result Comment: <100 mg/dl OPTIMAL 100 - 129 mg/dl NEAR OR ABOVE OPTIMAL 130 - 159 mg/dl BORDERLINE HIGH 160 - 189 mg/dl HIGH >190 mg/dl VERY HIGH Performed By: #### D ATBMP #### [facility] [address] [address] [address] Jose Rojas Potassium [Moles/Vol] 4.5 mmol/L Normal 3.5-5.1 [facility] Comment on above: Performed By: #### D ATBMP #### [facility] [address] [address] [address] Jose Rojas Sodium [Moles/Vol] 139 mmol/L Normal 136-145 [facility] Comment on above: Performed By: #### D ATBMP #### [facility] [address] [address] [address] Jose Rojas Triglyceride [Mass/Vol] 304 mg/dL Critically high <=150 [facility] Comment on above: Performed By: #### D ATBMP #### [facility] [address] [address] [address] Jose Rojas Urea nitrogen [Mass/Vol] 21.0 mg/dL Critically high 7.0-18.0 [facility] Comment on above: Performed By: #### D ATBMP #### [facility] [address] [address] [address] Jose Rojas Urea nitrogen/Creatinine [Mass ratio] 18.4 mg/mg Normal [facility] Comment on above: Performed By: #### D ATBMP #### [facility] [address] [address] [address] Jose Rojas VLDL CALC 60.8 mg/dL Normal [facility] Comment on above: Performed By: #### D ATBMP #### [facility] [address] [address] [address] Jose Rojas Albumin [Mass/volume] in Ser um or PlasmaOrdered By: Yamilex Gottlieb on 02-11-2022 Albumin [Mass/Vol] 3.5 g/dL 3.2-5.5 [facility] Cholesterol [Mass/volume] in Serum or PlasmaOrdered By: Yamilex Gottlieb on 02-11-2022 Cholesterol [Mass/Vol] 96 mg/dL 140-200 [facility] Comment on above: Chol less than 200 m g/dl low riskChol 201-239 mg/dl borderline riskChol 240 mg/dl and greater high risk Cholesterol in LDL Calc [Mas s/Vol]Ordered By: Yamilex Gottlieb on 02-11-2022 Cholesterol in LDL [Mass/Vol] 34 mg/dL 0-100 [facility] Comment on above: LDL ATP III CLASSIFI CATIONLDL less than 100 mg/dL OptimalLDL 100-129 mg/dL Near or above optimalLDL 130-159 mg/dL Borderline highLDL 160-189 mg/dL HighLDL greater than 189 mg/dL Very high Cholesterol in VLDL Calc [Ma ss/Vol]Ordered By: Yamilex Gottlieb on 02-11-2022 Cholesterol in VLDL [Mass/Vol] 28 mg/dL [facility] Creatinine [Mass/volume] in UrineOrdered By: Yamilex Gottlieb on 02-11-2022 Creatinine (U) [Mass/Vol] 49.7 mg/dL [facility] Comment on above: No reference range e stablished Creatinine and Glomerular fi ltration rate.predicted panel (S/P/Bld)Ordered By: Yamilex Gottlieb on 02-11-2022 Creatinine [Mass/Vol] 0.85 mg/dL 0.64-1.27 [facility] Estimated glomerular filtrat ion rate (GFR) non- AmericanOrdered By: Yamilex Gottlieb on 02-11-2022 GFR/1.73 sq M.predicted among non-blacks MDRD (S/P/Bld) [Vol rate/Area] > 60 mL/Min [facility] Globulin Calc (S) [Mass/Vol] Ordered By: Yamilex Gottlieb on 02-11-2022 Globulin (S) [Mass/Vol] 3.2 g/dL [facility] - Chemistry and C hemistry - challengeOrdered By: Yamilex Gottlieb on 02-11-2022 Cobalamin (Vitamin B12) [Mass/Vol] 227 pg/mL 180-914 [facility] No Panel InformationOrdered By: Yamilex Gottlieb on 02-11-2022 Estimated GFR () > 60 mL/Min [facility] Comment on above: GFR estimated refere nce range: According to KDOQI guidelines, <60 ml/min/1.73m2 is sufficient to diagnose a patient with chronic kidney disease. Pharmacy Creatinine Clearance (Chem N/A [facility] Protein [Mass/volume] in Ser um or PlasmaOrdered By: Yamilex Gottlieb on 02-11-2022 Protein [Mass/Vol] 6.7 g/dL 6.1-7.9 [facility] Serum or plasma alanine mccoy otransferase measurement without P-5'-P (enzymatic activiOrdered By: Yamilex Gottlieb on 02-11-2022 ALT No additional P-5'-P [Catalytic activity/Vol] 23 U/L 10-60 [facility] Serum or plasma albumin/glob ulin mass ratioOrdered By: Yamilex Gottlieb on 02-11-2022 Albumin/Globulin [Mass ratio] 1.1 {ratio} [facility] Serum or plasma alkaline elle sphatase measurement (enzymatic activity/volume)Ordered By: Yamilex Gottlieb on 02-11-2022 ALP [Catalytic activity/Vol] 82 U/L 32-92 [facility] Serum or plasma anion gap de terminationOrdered By: Yamilex Gottlieb on 02-11-2022 Anion gap [Moles/Vol] 15.4 mmol/L 6.0-15.0 [facility] Serum or plasma aspartate am inotransferase measurement (enzymatic activity/volume)Ordered By: Yamilex Gottlieb on 02-11-2022 AST [Catalytic activity/Vol] 22 U/L 1042 [facility] Serum or plasma calcium destiny urement (mass/volume)Ordered By: Yamilex Gottlieb on 02-11-2022 Calcium [Mass/Vol] 9.7 mg/dL 8.2-10.2 [facility] Serum or plasma chloride donato surement (moles/volume)Ordered By: Yamilex Gottlieb on 02-11-2022 Chloride [Moles/Vol] 101 mmol/L 95-114 [facility] Serum or plasma glucose destiny urement (mass/volume)Ordered By: Yamilex Gottlieb on 02-11-2022 Glucose [Mass/Vol] 85 mg/dL 70-100 [facility] Comment on above: ADA recommended refe rence rangeRandom Glucose Reference Range is dependent on time and content of last meal. Glucose of more than 200 mg/dL in a nonstressed, ambulatory subject supports the diagnosis of Diabetes Mellitus. Serum or plasma high density lipoprotein (HDL) cholesterol measurementOrdered By: aYmilex Gottlieb on 02-11-2022 Cholesterol in HDL [Mass/Vol] 34 mg/dL - [facility] Comment on above: HDL CHOL ATP-III CLA SSIFICATION Cardiovascular RiskHDL > or equal to 60 mg/dL LOWHDL < 40 mg/dL HIGH Serum or plasma potassium me asurement (moles/volume)Ordered By: Yamilex Gottlieb on 02-11-2022 Potassium [Moles/Vol] 4.2 mmol/L 3.5-5.1 [facility] Serum or plasma sodium measu rement (moles/volume)Ordered By: Yamilex Gottlieb on 02-11-2022 Sodium [Moles/Vol] 138 mmol/L 136-146 [facility] Serum or plasma total biliru bin measurement (mass/volume)Ordered By: Yamilex Gotltieb on 02-11-2022 Bilirubin [Mass/Vol] 0.7 mg/dL 0.3-1.2 [facility] Serum or plasma total carbon dioxide measurement (moles/volume)Ordered By: Yamilex Gottlieb on 02-11-2022 CO2 [Moles/Vol] 25.8 mmol/L 22.0-30.0 [facility] Serum or plasma total choles terol/high density lipoprotein (HDL) cholesterol mass ratOrdered By: Yamilex Gottlieb on 02-11-2022 Cholesterol.total/Radha sterol in HDL [Mass ratio] 2.8 {ratio} <5.0 [facility] Serum or plasma urea nitroge n measurement (mass/volume)Ordered By: Yamilex Gottlieb on 02-11-2022 Urea nitrogen [Mass/Vol] 16 mg/dL 9- [facility] Triglyceride [Mass/volume] i n Serum or PlasmaOrdered By: Yamilex Gottlieb on 02-11-2022 Triglyceride [Mass/Vol] 140 mg/dL 35-149 [facility] Comment on above: TRIG ATP III CLASSIF ICATIONTRIG less than 150 mg/dL NormalTRIG 150-199 mg/dL Borderline highTRIG 200-500 mg/dL High TRIG greater than 500 mg/dL Very highStandard traceable to the Center for Disease Conrtrol and Prevention (CDC) test method. Urine microalbumin measureme nt with detection limit of 20 mg/L or less (mass/volume)Ordered By: Yamilex Culverus on 02-11-2022 Albumin DL <= 20 mg/L (U) [Mass/Vol] 3.4 mg/dL 0.0-1.8 [facility] Urine microalbumin/creatinin e mass ratioOrdered By: Tondra Mapus on 02-11-2022 Albumin/Creatinine DL <= 20 mg/L (U) [Mass ratio] 68.0 mg/g 0.0-30.0 [facility] Comment on above: 30-300 mg/g indicate s an increased risk for diabetic nephropathy. Greater than 300 mg/g is consistent with clinical nephropathy. (Am. J. Kidney Disease 1995, 25:107) Follow-Upon 01-31-2022 Follow-Up [id number] Caden Wills 1960 M Date Provider Department Center 01/31/2022 SIMBA REYEZ [facility] Family History Problem Relation Age of Onset Coronary artery disease Father Family Status - Relation Status Age at Father Level of Service:03194 [place] OFFICE/OUTPATIENT ESTABLISHED HIGH MDM 40-54 MIN Reason for Visit and Comments: Coronary Artery Disease [187] Normal [facility] BNPon 12-31-2021 Natriuretic peptide B (Bld) [Mass/Vol] 229.0 pg/mL Normal <=900.0 [facility] Comment on above: Performed By: #### B CLINICAL PROFESSOR #### [facility] [address] [place] [address] Dr. Jose Rojas CBC AUTO DIFFon 12-31-2021 BASO # 0.1 103/ul Normal 0.0-0.1 [facility] Comment on above: Performed By: #### D ATCBC #### [facility] [address] [address] [address] Jose Rojas Basophils/100 WBC (Bld) 0.5 % Normal 0.2-2.0 [facility] Comment on above: Performed By: #### D ATCBC #### [facility] [address] [address] [address] Jose Rojas EO # 0.1 103/ul Normal 0.0-0.7 [facility] Comment on above: Performed By: #### D ATCBC #### [facility] [address] [place] [address] Dr. Jose Rojas Eosinophils/100 WBC (Bld) 1.0 % Normal 0.9-7.0 [facility] Comment on above: Performed By: #### D ATCBC #### [facility] [address] [place] [address] Dr. Jose Rojas Erythrocyte distribution width (RBC) [Ratio] 15.1 % Critically high 11.0-15.0 [facility] Comment on above: Performed By: #### D ATCBC #### [facility] [address] [place] [address] Dr. Jose Rojas Hematocrit (Bld) [Volume fraction] 49.2 % Normal 42.0-54.0 [facility] Comment on above: Performed By: #### D ATCBC #### [facility] [address] [place] [address] Dr. Jose Rojas Hemoglobin (Bld) [Mass/Vol] 16.1 g/dL Normal 14.0-18.0 [facility] Comment on above: Performed By: #### D ATCBC #### [facility] [address] [place] [address] Dr. Jose Rojas IG # 0.07 10e3/ul Critically high 0.00-0.03 [facility] Comment on above: Performed By: #### D ATCBC #### [facility] [address] [place] [address] Dr. Jose Rojas IG % 0.7 % Critically high 0.0-0.5 [facility] Comment on above: Performed By: #### D ATCBC #### [facility] [address] [place] [address] Dr. Jose Rojas LYMPH # 2.1 103/ul Normal 1.2-3.[address] [facility] Comment on above: Performed By: #### D ATCBC #### [facility] [address] [place] [address] Dr. Jose Rojas Lymphocytes/100 WBC (Bld) 22.2 % Normal 20.5-60.0 [facility] Comment on above: Performed By: #### D ATCBC #### [facility] [address] [place] [address] Dr. Jose Rojas MANUAL DIFF REQ NO Normal [facility] Comment on above: Performed By: #### D ATCBC #### [facility] [address] [place] [address] Dr. Jose Rojas MCH (RBC) [Entitic mass] 28.0 pg Normal 25.9-34.0 [facility] Comment on above: Performed By: #### D ATCBC #### [facility] [address] [place] [address] Dr. Jose Rojas MCHC (RBC) [Mass/Vol] 32.7 g/dL Normal 29.9-35.2 [facility] Comment on above: Performed By: #### D ATCBC #### [facility] [address] [place] [address] Dr. Jose Rojas MCV (RBC) [Entitic vol] 85.6 fL Normal 80.0-94.0 [facility] Comment on above: Performed By: #### D ATCBC #### [facility] [address] [place] [address] Dr. Jose Rojas MONO # 1.0 103/ul Critically high 0.3-0.8 [facility] Comment on above: Performed By: #### D ATCBC #### [facility] [address] [place] [address] Dr. Jose Rojas Monocytes/100 WBC (Bld) 10.2 % Normal 1.7-12.0 [facility] Comment on above: Performed By: #### D ATCBC #### [facility] [address] [place] [address] Dr. Jose Rojas NEUT # 6.3 103/ul Normal 1.4-6.5 [facility] Comment on above: Performed By: #### D ATCBC #### [facility] [address] [place] [address] Dr. Jose Rojas Neutrophils/100 WBC (Bld) 65.4 % Normal 43.0-75.0 [facility] Comment on above: Performed By: #### D ATCBC #### [facility] [address] [place] [address] Dr. Jose Rojas Platelet mean volume (Bld) [Entitic vol] 9.4 fL Critically low 9.5-13.5 [facility] Comment on above: Performed By: #### D ATCBC #### [facility] [address] [place] [address] Dr. Jose Rojas PLT 353 103/ul Normal 150-[address] [facility] Comment on above: Performed By: #### D ATCBC #### [facility] [address] [place] [address] Dr. Jose Rojas RBC 5.75 106/ul Normal 4.70-6.[address] [facility] Comment on above: Performed By: #### D ATCBC #### [facility] [address] [place] [address] Dr. Jose Rojas WBC 9.6 103/ul Normal 4.0-11.[address] [facility] Comment on above: Performed By: #### D ATCBC #### [facility] [address] [place] [address] Dr. Jose Rojas Covid-19 PCR ([facility])on 12-16 SARS-CoV-2 (COVID-19) RNA PRASHANT+probe Ql (Unsp spec) Not detected Normal NOT DETECTED [facility] Comment on above: Result Comment: When diagnostic [...] for this test is supported by the Lead Presser of Health and Human Service's declaration that [...] used). Performed By: #### C VDTBH #### [facility] [address] [place] [address] Dr. Jose Rojas PROF CHEM 8 (BAS METB)on Anion gap [Moles/Vol] 14.0 mmol/L Normal [facility] Comment on above: Performed By: #### H STROPN, BMP #### [facility] [address] [place] [address] Dr. Jose Rojas Calcium [Mass/Vol] 9.5 mg/dL Normal 8.5-10.1 [facility] Comment on above: Performed By: #### H STROPN, BMP #### [facility] [address] [place] [address] Dr. Jose Rojas Chloride [Moles/Vol] 100 mmol/L Normal 98-107 [facility] Comment on above: Performed By: #### H STROPN, BMP #### [facility] [address] [place] [address] Dr. Jose Rojas CO2 [Moles/Vol] 26.9 mmol/L Normal 21.0-32.0 [facility] Comment on above: Performed By: #### H STROPN, BMP #### [facility] [address] [place] [address] Dr. Jose Rojas Creatinine [Mass/Vol] 1.06 mg/dL Normal 0.70-1.30 [facility] Comment on above: Performed By: #### H STROPN, BMP #### [facility] [address] [place] [address] Dr. Jose Rojas EGFR-AF AUSTRALIAN >60 Normal >=60 [facility] Comment on above: Performed By: #### H STROPN, BMP #### [facility] [address] [place] [address] Dr. Joes Rojas EGFR-NON AF AUSTRALIAN >60 Normal >=60 [facility] Comment on above: Performed By: #### H STROPN, BMP #### [facility] [address] [address] [address] Jose Rojas Glucose [Mass/Vol] 152 mg/dL Critically high 74-106 [facility] Comment on above: Performed By: #### H STROPN, BMP #### [facility] [address] [address] [address] Jose Rojas Potassium [Moles/Vol] 3.9 mmol/L Normal 3.5-5.1 [facility] Comment on above: Performed By: #### H STROPN, BMP #### [facility] [address] [address] [address] Jose Rojas Sodium [Moles/Vol] 137 mmol/L Normal 136-145 [facility] Comment on above: Performed By: #### H STROPN, BMP #### [facility] [address] [address] [address] Jose Rojas Urea nitrogen [Mass/Vol] 19.0 mg/dL Critically high 7.0-18.0 [facility] Comment on above: Performed By: #### H STROPN, BMP #### [facility] [address] [address] [address] Jose Rojas Urea nitrogen/Creatinine [Mass ratio] 17.9 mg/mg Normal [facility] Comment on above: Performed By: #### H STROPN, BMP #### [facility] [address] [address] [address] Jose Rojas TROPONIN, HIGH SENSITIVITYon 12-31-2021 HSTROP 6144.5 pg/mL Critically high 4.0-76.1 [facility] Comment on above: Result Comment: CUT- OFF POINTS HAVE BEEN ESTABLISHED BASED ON THE FOURTH UNIVERSAL DEFINITIONS OF MYOCARDIAL INFARCTION. THE UPPER REFERENCE LIMIT (URL) OF TROPONIN, DEFINED THE 99TH PERCENTILE OF cTnI DISTRIBUTION IN A REFERENCE POPULATION, HAS BEEN CONFIRMED THE DECISION THRESHOLD FOR HI DIAGNOSIS. Performed By: #### H STROPN #### [facility] [address] [address] [address] Jose Rojas HSTROP 142.5 pg/mL Critically high 4.0-76.1 [facility] Comment on above: Result Comment: CUT- OFF POINTS HAVE BEEN ESTABLISHED BASED ON THE FOURTH UNIVERSAL DEFINITIONS OF MYOCARDIAL INFARCTION. THE UPPER REFERENCE LIMIT (URL) OF TROPONIN, DEFINED THE 99TH PERCENTILE OF cTnI DISTRIBUTION IN A REFERENCE POPULATION, HAS BEEN CONFIRMED THE DECISION THRESHOLD FOR HI DIAGNOSIS. Performed By: #### H TOMMY, [facility] #### [facility] [address] [address] [address] Jose Rojas XR CHEST 1 Von [...] by: STORM CONDE Date: 2021-12-31 13:54 Normal [facility] XR LSPINE 2_3 VIEWSon 2021 XR LSPINE [...] by: HEAVENLY LOUIS Date: 2021-10-31 08:51 Normal [facility] A1C HEMOGLOBINon 10-21-2021 HbA1c (Bld) [Mass fraction] 7.5 % [facility] Other Glucose - FINGER STICKon Glucose [Mass/Vol] 107 mg/dL [facility] Other HbA1c (Bld) [Mass fraction]o n 10-21-2021 A1C HEMOGLOBIN [facility] Other Urinalysis - AUTOMATEDon Appearance (U) cloudy [facility] Other Bilirubin Ql (U) Negative [facility] Other Color (U) yellow [facility] Other Glucose Ql (U) 500 [facility] Other Hemoglobin Ql (U) moderate [facility] Other Ketones Ql (U) Negative [facility] Other Leukocyte esterase Test strip Ql (U) moderate [facility] Other Nitrite Ql (U) Positive [facility] Other pH (U) 6.0 [pH] [facility] Other Protein Ql (U) trace [facility] Other Specific gravity (U) [Rel density] 1.025 [facility] Other Urobilinogen (U) [Mass/Vol] 0.2 mg/dL [facility] Other Urinalysis - AUTOMATED No [facility] Other Urine Cultureon 08-11-2021 Bacteria identified Cx Nom (U) [facility] Other A1C HEMOGLOBINon 06-29-2021 HbA1c (Bld) [Mass fraction] 7.4 % [facility] Other Glucose - FINGER STICKon Glucose [Mass/Vol] 168 mg/dL [facility] Other HbA1c (Bld) [Mass fraction]o n 06-29-2021 A1C HEMOGLOBIN [facility] Other A1C HEMOGLOBINon 03-24-2021 HbA1c (Bld) [Mass fraction] 6.6 % [facility] Other Glucose - FINGER STICKon Glucose [Mass/Vol] 171 mg/dL [facility] Other HbA1c (Bld) [Mass fraction]o n 03-24-2021 A1C HEMOGLOBIN [facility] [employer] Other Vital Signs Date Time Vital Sign Value Performing Clinician Facility 04-19-2023 15:30-0500 Body height 177.8 cm Fahad Ball Other [facility] 04-19-2023 15:30-0500 Body mass index (BMI) [Ratio] 39.91 kg/m2 Fahad Ball Other [facility] Other 04-19-2023 15:30-0500 Body weight 126.19 kg Fahad Ball Other [facility] Other 04-19-2023 15:30-0500 Body weight 126.18 kg DO Fahad Ball Work Phone: [facility] 04-19-2023 15:30-0500 Diastolic blood pressure 77 mm[Hg] Fahad Ball Other [facility] 04-19-2023 15:30-0500 Respiratory rate 16 /min Fahad Ball Other [facility] Other 04-19-2023 15:30-0500 Systolic blood pressure 125 mm[Hg] Fahad Ball Other [facility] 03-22-2023 11:46-0500 Blood Pressure Location Antonia HACKETT [facility] 03-22-2023 11:46-0500 Diastolic blood pressure 71 mm[Hg] Antonia HACKETT [facility] 03-22-2023 11:46-0500 Heart rate 69 /min Antonia HACKETT [facility] 03-22-2023 11:46-0500 Systolic blood pressure 111 mm[Hg] Antonia HACKETT [facility] 03-08-2023 16:15-0500 Body height 177.8 cm Tondra Mapus Other [facility] 03-08-2023 16:15-0500 Body mass index (BMI) [Ratio] 39.65 kg/m2 Tondra Mapus Other [facility] Other 03-08-2023 16:15-0500 Body weight 125.38 kg Tondra Mapus Other [facility] Other 03-08-2023 16:15-0500 Body weight 125.37 kg DO Fahad Ball Work Phone: [facility] 03-08-2023 16:15-0500 Diastolic blood pressure 72 mm[Hg] Tondra Mapus Other [facility] 03-08-2023 16:15-0500 Respiratory rate 18 /min Tondra Mapus Other [facility] Other 03-08-2023 16:15-0500 SaO2% (BldA) [Mass fraction] 96 % Tondra Mapus Other [facility] Other 03-08-2023 16:15-0500 Systolic blood pressure 127 mm[Hg] Tondra Mapus Other [facility] 01-20-2023 14:45-0400 Body height 177.8 cm Fahad Ball Other [facility] Other 01-20-2023 14:45-0400 Body mass index (BMI) [Ratio] 39.17 kg/m2 Fahad Ball Other [facility] Other 01-20-2023 14:45-0400 Body weight 123.83 kg Fahad Ball Other [facility] Other 01-20-2023 14:45-0400 Diastolic blood pressure 74 mm[Hg] Fahad Ball Other [facility] Other 01-20-2023 14:45-0400 Respiratory rate 18 /min Fahad Ball Other [facility] Other 01-20-2023 14:45-0400 Systolic blood pressure 118 mm[Hg] Fahad Ball Other [facility] Other 11-24-2022 15:30-0400 Body height 177.8 cm Tondra Mapus Other [facility] Other 11-24-2022 15:30-0400 Body mass index (BMI) [Ratio] 39.22 kg/m2 Tondra Mapus Other [facility] Other 11-24-2022 15:30-0400 Body weight 124.01 kg Tondra Mapus Other [facility] Other 11-24-2022 15:30-0400 Diastolic blood pressure 65 mm[Hg] Tondra Mapus Other [facility] Other 11-24-2022 15:30-0400 Respiratory rate 18 /min Tondra Mapus Other [facility] Other 11-24-2022 15:30-0400 SaO2% (BldA) [Mass fraction] 95 % Tondra Mapus Other [facility] Other 11-24-2022 15:30-0400 Systolic blood pressure 109 mm[Hg] Tondra Mapus Other [facility] Other 10-17-2022 15:30-0400 Body height 177.8 cm Fahad Ball Other [facility] Other 10-17-2022 15:30-0400 Body mass index (BMI) [Ratio] 39.6 kg/m2 Fahad Ball Other [facility] Other 10-17-2022 15:30-0400 Body weight 125.19 kg Fahad Ball Other [facility] Other 10-17-2022 15:30-0400 Diastolic blood pressure 66 mm[Hg] Fahad Ball Other [facility] Other 10-17-2022 15:30-0400 Respiratory rate 16 /min Fahad Ball Other [facility] Other 10-17-2022 15:30-0400 Systolic blood pressure 108 mm[Hg] Fahad Ball Other [facility] Other 08-22-2022 16:30-0400 Body height 177.8 cm Tondra Mapus Other [facility] Other 08-22-2022 16:30-0400 Body mass index (BMI) [Ratio] 39.93 kg/m2 Tondra Mapus Other [facility] Other 08-22-2022 16:30-0400 Body weight 126.24 kg Tondra Mapus Other [facility] Other 08-22-2022 16:30-0400 Diastolic blood pressure 70 mm[Hg] Tondra Mapus Other [facility] Other 08-22-2022 16:30-0400 Respiratory rate 18 /min Tondra Mapus Other [facility] Other 08-22-2022 16:30-0400 SaO2% (BldA) [Mass fraction] 94 % Tondra Mapus Other [facility] Other 08-22-2022 16:30-0400 Systolic blood pressure 111 mm[Hg] Tondra Mapus Other [facility] Other 07-18-2022 16:30-0400 Body height 177.8 cm Fahad Ball Other [facility] Other 07-18-2022 16:30-0400 Body mass index (BMI) [Ratio] 40.2 kg/m2 Fahad Ball Other [facility] Other 07-18-2022 16:30-0400 Body weight 127.1 kg Fahad Ball Other [facility] Other 07-18-2022 16:30-0400 Diastolic blood pressure 71 mm[Hg] Fahad Ball Other [facility] Other 07-18-2022 16:30-0400 Respiratory rate 16 /min Fahad Ball Other [facility] Other 07-18-2022 16:30-0400 Systolic blood pressure 117 mm[Hg] Fahad Ball Other [facility] Other 05-19-2022 16:15-0500 Body height 177.8 cm Tondra Mapus Other [facility] Other 05-19-2022 16:15-0500 Body mass index (BMI) [Ratio] 40.79 kg/m2 Tondra Mapus Other [facility] Other 05-19-2022 16:15-0500 Body weight 128.96 kg Tondra Mapus Other [facility] Other 05-19-2022 16:15-0500 Diastolic blood pressure 72 mm[Hg] Tondra Mapus Other [facility] Other 05-19-2022 16:15-0500 Respiratory rate 18 /min Tondra Mapus Other [facility] Other 05-19-2022 16:15-0500 SaO2% (BldA) [Mass fraction] 93 % Tondra Mapus Other [facility] Other 05-19-2022 16:15-0500 Systolic blood pressure 131 mm[Hg] Tondra Mapus Other [facility] Other 05-04-2022 16:30-0500 Body height 177.8 cm Fahad Ball Other [facility] Other 05-04-2022 16:30-0500 Body mass index (BMI) [Ratio] 41.23 kg/m2 Fahad Ball Other [facility] Other 05-04-2022 16:30-0500 Body weight 130.36 kg Fahad Ball Other [facility] Other 05-04-2022 16:30-0500 Diastolic blood pressure 82 mm[Hg] Fahad Ball Other [facility] Other 05-04-2022 16:30-0500 Respiratory rate 20 /min Fahad Ball Other [facility] Other 05-04-2022 16:30-0500 Systolic blood pressure 118 mm[Hg] Fahad Ball Other [facility] Other 10-21-2021 14:45-0400 Body height 177.8 cm Tondra Mapus Other [facility] Other 10-21-2021 14:45-0400 Body mass index (BMI) [Ratio] 40.31 kg/m2 Tondra Mapus Other [facility] Other 10-21-2021 14:45-0400 Body weight 127.46 kg Tondra Mapus Other [facility] Other 10-21-2021 14:45-0400 Diastolic blood pressure 70 mm[Hg] Tondra Mapus Other [facility] Other 10-21-2021 14:45-0400 Respiratory rate 20 /min Tondra Mapus Other [facility] Other 10-21-2021 14:45-0400 SaO2% (BldA) [Mass fraction] 96 % Tondra Mapus Other [facility] Other 10-21-2021 14:45-0400 Systolic blood pressure 110 mm[Hg] Tondra Mapus Other [facility] Other 08-11-2021 15:15-0400 Body height 177.8 cm Celestina Greene Other [facility] Other 08-11-2021 15:15-0400 Body mass index (BMI) [Ratio] 38.74 kg/m2 Celestina Talbotmond Other [facility] Other 08-11-2021 15:15-0400 Body temperature 98.2 [degF] Celestina Greene Other [facility] Other 08-11-2021 15:15-0400 Body weight 122.47 kg Celestina Talbotmond Other [facility] Other 08-11-2021 15:15-0400 Diastolic blood pressure 72 mm[Hg] Celestina Ramona Other [facility] Other 08-11-2021 15:15-0400 Respiratory rate 18 /min Celestina Talbotmond Other [facility] Other 08-11-2021 15:15-0400 SaO2% (BldA) [Mass fraction] 99 % Celestina Talbotmond Other [facility] Other 08-11-2021 15:15-0400 Systolic blood pressure 123 mm[Hg] Celestina Ramona Other [facility] Other 06-29-2021 15:30-0400 Body height 177.8 cm Yamilex Gottlieb Other [facility] Other 06-29-2021 15:30-0400 Body mass index (BMI) [Ratio] 40.89 kg/m2 Tondra Mapus Other [facility] Other 06-29-2021 15:30-0400 Body weight 129.28 kg Tondra Mapus Other [facility] Other 06-29-2021 15:30-0400 Diastolic blood pressure 75 mm[Hg] Tondra Mapus Other [facility] Other 06-29-2021 15:30-0400 Respiratory rate 20 /min Tondra Mapus Other [facility] Other 06-29-2021 15:30-0400 SaO2% (BldA) [Mass fraction] 95 % Tondra Mapus Other [facility] Other 06-29-2021 15:30-0400 Systolic blood pressure 126 mm[Hg] Tondra Mapus Other [facility] Other 03-24-2021 16:15-0500 Body height 177.8 cm Tondra Mapus Other [facility] Other 03-24-2021 16:15-0500 Body mass index (BMI) [Ratio] 40.89 kg/m2 Tondra Mapus Other [facility] Other 03-24-2021 16:15-0500 Body weight 129.28 kg Tondra Mapus Other [facility] Other 03-24-2021 16:15-0500 Diastolic blood pressure 67 mm[Hg] Tondra Mapus Other [facility] Other 03-24-2021 16:15-0500 Respiratory rate 20 /min Tondra Mapus Other [facility] Other 03-24-2021 16:15-0500 SaO2% (BldA) [Mass fraction] 97 % Tondra Mapus Other [facility] Other 03-24-2021 16:15-0500 Systolic blood pressure 115 mm[Hg] Tondra Mapus Other [facility] Other 01-06-2021 15:00-0400 Body height 177.8 cm Tondra Mapus Other [facility] Other 01-06-2021 15:00-0400 Body mass index (BMI) [Ratio] 39.81 kg/m2 Tondra Mapus Other [facility] Other 01-06-2021 15:00-0400 Body weight 125.87 kg Tondra Mapus Other [facility] Other Encounters Encounter Date Encounter Type Care Provider Facility Start: 06-14-2023 Telephone encounter Noy garcia RN Work Phone: Urology Comment on above: [employer] 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 - [employer] Start: 05-03-2023 End: 05-04-2023 ambulatory ANTONIA HACKETT Facility:[facility] Start: 05-02-2023 End: 05-02-2023 ambulatory Yarelis Santacruz Other [facility] Other Start: 05-02-2023 Office outpatient visit 10 minutes [facility] Start: 05-02-2023 End: 05-02-2023 Patient encounter procedure DO Fahad Salinas Work Phone: [facility]- Start: 04-19-2023 End: 04-19-2023 ambulatory Fahad Salinas Other [facility] Other Start: 04-19-2023 Office outpatient visit 25 minutes Fahad Salinas [facility] Start: 04-19-2023 End: 04-19-2023 Patient encounter procedure DO Fahad Salinas Work Phone: [facility] Work Phone: Start: 03-30-2023 End: 03-30-2023 ambulatory Yarelis Santacruz Other [facility] Other Start: 03-30-2023 Telephone encounter [facility]is [facility] Start: 03-28-2023 End: 03-28-2023 ambulatory Yarelis Santacruz Other [facility] Other Start: 03-28-2023 Office outpatient visit 15 minutes Yarelis Santacruz [facility] Start: 03-22-2023 End: 03-23-2023 ambulatory TONDRA K MAPUS Facility:[facility] Start: 03-22-2023 End: 03-22-2023 Patient encounter procedure Antonia HACKETT [facility] Start: 03-08-2023 End: 03-08-2023 Discharged Recurring DO Fahad Salinas Work Phone: [facility] Work Phone: Start: 03-08-2023 (DM) Diabetes Tondra Mapus [facility] Start: 03-08-2023 End: 03-09-2023 ambulatory DO Fahad Salinas Work Phone: [facility] Other Start: 03-08-2023 End: 03-08-2023 Patient encounter procedure DO Fahad Salinas Work Phone: [facility] Work Phone: Start: 02-22-2023 End: 02-22-2023 ambulatory Yarelis Santacruz Other [facility] Other Start: 02-22-2023 Office outpatient visit 15 minutes Yarelis Santacruz [facility] Start: 01-20-2023 End: 01-20-2023 ambulatory Fahad Salinas Other [facility] Other Start: 01-20-2023 Office outpatient visit 15 minutes Fahad Salinas [facility] Start: 12-09-2022 End: 12-09-2022 ambulatory Tondra Mapus Other [facility] Other Start: 12-09-2022 Telephone encounter Tondra Mapus [facility] Start: 12-06-2022 End: 12-06-2022 ambulatory [facility] Start: 11-25-2022 ambulatory TONDRA MAPUS Facility:[facility] Start: 11-24-2022 (DM) Diabetes Tondra Mapus [facility] Start: 11-24-2022 End: 11-24-2022 ambulatory Tondra Mapus Other [facility] Other Start: 11-24-2022 Telephone encounter Tondra Mapus [facility] Start: 10-17-2022 End: 10-17-2022 ambulatory Fahda Salinas Other [facility] Other Start: 10-17-2022 Encounter for genera l adult medical examination without abnormal findings Fahad Salinas [facility] Start: 10-17-2022 Periodic preventive med est patient 40-64yrs Fahad Salinas [facility] Start: 09-05-[address] FAHAD SALINAS Facili ty:[facility] Start: 08-24-2022 End: 08-25-2022 ambulatory DAMIAN ONTIVEROS Facility:[facility] Start: 08-22-2022 (DM) Diabetes Tondra Mapus [facility] Start: 08-22-2022 End: 08-22-2022 ambulatory Tondra Mapus Other [facility] Other Start: 07-18-2022 End: 07-18-2022 ambulatory Fahad Salinas Other [facility] Other Start: 07-18-2022 Office outpatient visit 15 minutes Fahad Salinas [facility] Start: 05-23-2022 End: 05-23-2022 ambulatory [facility] Start: 05-19-2022 (DM) Diabetes Tondra Mapus [facility] Start: 05-19-2022 End: 05-19-2022 ambulatory Tondra Mapus Other [facility] Other Start: 05-04-2022 End: 05-04-2022 ambulatory Fahad Salinas Other [facility] Other Start: 05-04-2022 Office outpatient visit 25 minutes Fahad Salinas [facility] Start: 04-19-2022 End: 05-04-[address] FAHAD SALINAS Facility:[facility] Start: 04-05-2022 End: 04-06-[address] FAHAD SALINAS Facility:[facility] Start: 04-05-2022 End: 04-05-2022 ambulatory [facility] Start: 03-30-2022 End: 03-31-[address] FAHAD SALINAS Facility:[facility] Start: 02-24-2022 End: 02-25-[address] FAHAD SALINAS Facility:[facility] Start: 02-17-2022 End: 04-19-[address] FAHAD SALINAS Facility:[facility] Start: 02-16-2022 End: 02-17-[address] FAHAD SALINAS Facility:[facility] Start: 02-14-2022 End: 02-14-2022 ambulatory Tondra Mapus Other [facility] Other Start: 02-14-2022 Telephone encounter Tondra Mapus [facility] Start: 02-11-2022 End: 02-11-2022 ambulatory DO Fahad Salinas Work Phone: [facility] Work Phone: Start: 02-11-2022 End: 02-11-2022 Patient encounter procedure DO Fahad Salinas Work Phone: [facility] [place] Start: 02-10-2022 End: 02-11-[address] SIMBA CURARN Facility:[facility] Start: 02-01-2022 Registered Recurring DO Janeneiris yevgeniy Yola Work Phone: [facility] Start: 02-01-2022 End: 02-01-2022 ambulatory Tondra Mapus Other [facility] Other Start: 02-01-2022 Telephone encounter Tondra Mapus [facility] Start: 01-31-2022 End: 01-31-2022 ambulatory SIMBA CURRAN [facility] Start: 01-25-2022 End: 01-26-2022 ambulatory COORDINATOR [facility] Start: 01-07-[address] FAHAD SALINAS Facili ty:[facility] Start: 12-31-2021 End: 12-31-2021 ambulatory DARNELL OVALLE Facility:[facility] Start: 12-16-2021 ambulatory DAMIAN ONTIVEROS Faci lity:[facility] Start: 11-15-2021 End: 01-01-[address] FAHAD SALINAS Facility:[facility] Start: 10-29-2021 End: 10-30-[address] FAHAD SALINAS Facility:[facility] Start: 10-21-2021 (DM) Diabetes Tondra Mapus [facility] Start: 10-21-2021 End: 10-21-2021 ambulatory Tondra Mapus Other [facility] Other Start: 09-09-2021 End: 09-10-2021 ambulatory DAMIAN ONTIVEROS Facility:[facility] Start: 08-11-2021 End: 08-11-2021 ambulatory Celestina Greene Other [facility] Other Start: 08-11-2021 Office outpatient visit 25 minutes Celestina Ramona [facility] Start: 06-29-2021 (DM) Diabetes Tondra Mapus [facility] Start: 06-29-2021 End: 06-29-2021 ambulatory Tondra Mapus Other [facility] Other Start: 05-12-2021 End: 05-12-2021 ambulatory Tondra Mapus Other [facility] Other Start: 05-12-2021 Telephone encounter Tondra Mapus [facility] Start: 05-04-2021 End: 05-04-2021 ambulatory Tondra Mapus Other [facility] Other Start: 05-04-2021 Telephone encounter Tondra Mapus [facility] Start: 03-24-2021 (DM) Diabetes Tondra Mapus [facility] Start: 03-24-2021 End: 03-24-2021 ambulatory Tondra Mapus Other [facility] Other Start: 01-06-2021 Nursing evaluation o f patient and report Tondra Mapus [facility] Procedures Date Procedure Procedure Detail Performing Clinician Start: 05-03-2023 Urnls dip stick/tabl et rgnt auto w/o microscopy Bulk Order Provider Start: 12-06-2022 Follow-up visit Follow-up ROBYN NEGRON Start: 12-16-2021 Coronary artery bypa ss grafts x 5 Antonia HACKETT Coronary artery bypa ss graft Fahad Salinas Other Plan of Treatment Date Care Activity Detail Author Start: 04-17-2023 Depression Assessment Depression Ass essment [facility] Start: 01-01-2023 Hepatitis B surface antibody level LDL Cholesterol [facility] Start: 12-16-2022 Covid-19 Vaccine () Covid-19 Vaccine () [facility] Start: 12-16-2022 Influenza vaccination Influenza Vacc ine (#1) [facility] Start: 07-04-2022 Hemoglobin A1c measurement HbA1C [facility] Start: 2022 RSV Vaccine (1 - 1-d ose 60+ series) RSV Vaccine (1 - 1-dose 60+ series) [facility] Start: 2017 Prostate specific an tigen measurement Prostate Cancer Screening Discussion [facility] Start: 01-11-2012 Shingrix Vaccine (1 of 2) Shingrix V accine (1 of 2) [facility] Start: 2007 Screening for malign ant neoplasm of colon [facility] Start: 1981 Urine microalbumin profile DTaP,Tdap,Td Vaccine (1 - Tdap) [facility] Start: 01-11-1980 Annual PCP Team Conference Organizer tennille Disease Visit Annual PCP Team Chronic Disease Visit [facility] Start: 01-11-1980 Hepatitis C screening Hepatitis C Sc reening [facility] Start: 01-11-1980 HIV screening HIV Screening [facility] Start: 01-11-1972 Diabetic foot examination Diabetic F oot Exam [facility] Start: 01-11-1972 Glaucoma screening Dilated Retinal E xam [facility] Start: 01-11-1972 Hepatitis B screening Urine Al bumin:Creatinine Ratio [facility] Start: 01-11-1968 Pneumococcal vaccination Pneum ococcal Vaccine (1 of 2 - PCV) [facility] Start: 1962 Covid-19 Vaccine (#1) Covid-19 Vacci ne (#1) [facility] Immunizations Immunization Date Immunization Notes Care Provider Sam brenner 02-24-2022 COVID-19 Pfizer (bivalent) Fahad Salinas Other [facility] 03-23-2021 COVID-19 Vaccine Pfi zer - Documentation Purposes Only Fahad Salinas Other [facility] 08-03-2020 COVID-19 Vaccine Pfi zer - Documentation Purposes Only Fahad Salinas Other [facility] 07-13-2020 COVID-19 Vaccine Pfi zer - Documentation Purposes Only Fahad Salinas Other [facility] Payers Date Payer Category Payer Unknown [id number] 2015 Private Health Insurance [facility] [id number] 2015-Present [phone] [address] [address] [place] [address] HMO [id number] 1960 Unknown [id number] [id number] .2.593 1962 Unknown [id number] 2.16.840.1.240880.3.579 .2.593 1962 Unknown [id number] 2.16.840.1.582756.3.579 .2.593 1962 Unknown [id number] 2.16.840.1.246560.3.579 .2.593 1962 Unknown [id number] 2.16.840.1.772530.3.579 .2.593 1962 Unknown [id number] 2.16.840.1.882596.3.579 .2.593 1962 Unknown [id number] 2.16.840.1.902390.3.579 .2.593 1962 Unknown [id number] 2.16.840.1.193562.3.579 .2.593 1962 Unknown [id number] 2.16.840.1.533819.3.579 .2.593 1962 Unknown [id number] 2.16.840.1.395691.3.579 .2.593 1962 Unknown [id number] 2.16.840.1.707295.3.579 .2.593 1962 Unknown [id number] 2.16.840.1.947278.3.579 .2.593 1962 Unknown [id number] 2.16.840.1.462168.3.579 .2.593 1962 Unknown [id number] 2.16.840.1.072546.3.579 .2.593 1962 Unknown [id number] 2.16.840.1.972602.3.579 .2.593 1959 Self-pay [id number] 1959 Unknown [id number] [id number] Unknown [id number] 2.16.840.1.302174.3.579 .2.593 Unknown [id number] 2.16.840.1.186305.3.579 .2.531 Social History Date Type Detail Facility Unknown if ever smoked [facility] Other Start: 05-03-2023 Sex Assigned At F [facility] Start: 1960 Sex Assigned At Male F [facility] Start: 03-22-2023 End: 05-03-2023 Tobacco smoking status Never smoked tobacco (finding) [facility] Start: 05-03-2023 Tobacco use and exposure Smokeless tobacco non-user [facility] Start: 05-03-2023 History of Social function [facility] Start: 1960 Sex Assigned At Not on file [facility] Medical Equipment Procedure Code Equipment Code Equipment Original Text Equi pment Identifier Dates Functional Status Date Assessment Result Facility 03-22-2023 Functional Status N/A [facility] Clinical Notes 01-06-2021 to 06-14-2023 Telephone Encounter - Noy Saavedra RN - 06/14/2023 10:03 AM ESTTelephone Encounter - Noy Saavedra RN - 06/14/2023 9:44 AM EST Note Date & Type Note Facility 06-14-2023 Miscellaneous Notes error documented in this encounter [facility] 06-14-2023 Miscellaneous Notes Called Caden Wills and LVM to confirm surgery date of 07/[address] Duran. Discussed pre op testing on 07/26 in [place], or he could make two trips. Asked him to confirm Asked patient to confirm receipt, and voice any questions or concerns. Number provided. Noy Saavedra RN documented in this encounter [facility] 05-03-2023 Note HNO ID: [id number] Author: JIAN DURAN MD Service: ? Author Type: Physician Type: Progress Notes Filed: 05/03/2023 14:28 Note Text: [facility] NEW PATIENT HISTORY AND PHYSICAL EXAM PATIENT INFO: Caden Wills 63 year old REFERRING M.D.: Antonia Hackett MD [address] [place] [id number] This consult was requested by Dr. Hackett for an opinion regarding buried penis and erectile dysfunction, and my final recommendations will be communicated to the requesting health care provider by way of the shared medical record for internal providers or letter via the [employer] for external providers. = HISTORY = CHIEF COMPLAINT: Erectile dysfunction HPI: Caden Wills is a 63 year old male with a history of IDDM, CAD s/p 12/2021 CABG on ASA 81, CHF on diuretic, a fib on apixaban, HTN, who presents today for erectile dysfunction and penile issues. 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 He had a UTI after surgery which led to scar development. Prior to this time he states he had minimally reduced erectile function. He now gets sensation of spontaneous morning erections however unable to be exposed due to his scarring. He tried a PDE 5-I one-time without exposure of his penis. He is voiding with what he thinks is a decent stream, has impaired sensation and often goes extended periods before voiding. Has leaked a little bit on the way to the bathroom, not wearing any pads or depends. No UTIs or hematuria since the episode in 2021. Denies prior surgery. Does have a history of kidney stones. 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 , interested in future sexual life. MEDICATIONS: No current outpatient medications on file. No current facility-administered medications for this visit. MEDICATION ALLERGIES: ALLERGIES Not on File No past medical history on file. No past surgical history on file. FAMILY HISTORY: NEGATIVE: No related previous family history. = PHYSICAL EXAM: = There were no vitals taken for this visit. GENERAL: no acute distress, well appearing, pleasant RESP: normal work of breathing on room air ABDOMEN: soft, moderate panniculus non tender, no palpable masses, no CVA tenderness EXTREMITIES: no extremity edema GENITOURINARY: moderate pubic escutcheon, buried penis under decently tight cicatrix with area of excoriation/raw skin, unable to expose glans, no lesions, unremarkable scrotum with bilaterally descended testicles of expected size without mass or tenderness on palpation PVR 150 cc = LABS AND IMAGING: = No recent labs = MEDICAL DECISION MAKING: = (A1) IMPRESSION: (Diagnostic Possibilities) New or Established 1) buried penis: phimotic cicatrix preventing exposure of glans, escutcheon on exam also contributing to burying 2) erectile dysfunction: setting of vasculogenic (heart disease) and neurogenic etiology (DM) in addition to inability for penis to be exposed due to cicatrix/buried penis 3) 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 (A2) PLAN: (Management Options) - discussed buried penis repair - timed voids q3h Giovanni Dawson MD Male Genitourinary Reconstruction AND Prosthetic Surgery Fellow Electronically signed = STAFF NOTE: I evaluated the patient and personally participated in the henderson components. I agree with the resident's findings and plan as documented and have discussed the case and management of the patient's care with the resident. Referred for evaluation of buried penis and erectile dysfunction. Available outside records reviewed. Since the time of cardiac surgery, the penis has been completely buried. This interferes significantly with voiding and sexual function. He has been circumcised in the past. On examination, there is scarring and narrowing of the skin overlying the penis, glans penis cannot be seen. There is a little bit of remaining dorsal normal penile skin. Scrotum is normal. Mons escutcheon is somewhat prominent and low-lying, contributes to problem with buried penis. Urinalysis pending PVR noted ASSESSMENT/PLAN: 1. 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 Scarring of penis - ICD9: 607.89, ICD10: N48.6 Discussed situation in detail with patient, before we can address the ED he needs surgery to expose the penis. This would involve excision of the sc (more content not included)... [facility] 05-03-2023 Note Patient Outreach (UR OLMN) CADEN WILLS ([id number]) 1960 M Date Time Provider Department 05/03/23 JIAN DURAN During your visit today, we recorded the following information about you: Allergies As of Date: 05/03/2023 (No Known Allergies) Date Reviewed: 05/03/2023 Reviewed by: Claudia Burt OCCA - Fully Assessed Visit Diagnosis:Screening for genitourinary condition [Z13.89] Order(s):URINALYSIS, REFLEX MICROSCOPIC [FLQ0481] Order #: [id number]. #:[id number] Prescriptions as of 05/08/2023 - metFORMIN ER (GLUCOPHAGE XR) 500 mg 24 hr tablet Take 1 tablet by mouth every 12 hours. - acetaminophen (TYLENOL) 325 mg tablet Take 650 mg by mouth every 6 hours as needed. - insulin aspart U-100 (NOVOLOG) 100 unit/mL Inject 25 Units subcutaneously. - atorvastatin (LIPITOR) 80 mg tablet Take 80 mg by mouth every evening. - aspirin, enteric coated (ASPIRIN, ENTERIC COATED) 81 mg EC tablet Take 81 mg by mouth. - metoprolol succinate ER (TOPROL XL) 100 mg TAKE 1 TABLET BY MOUTH IN THE MORNING AND 1 TABLET AT BEDTIME - potassium chloride ER (KLOR-CON) 20 mEq tablet Take 20 mEq by mouth. - amiodarone (PACERONE) 200 mg tablet Take 1 tablet by mouth every afternoon. - omega 0-zti-lzq-fish oil (FISH OIL) 100-160-1,000 mg cap Take 1,000 mg by mouth. - bumetanide (BUMEX ORAL) Take by mouth. Problem List As Of Date 05/03/2023 Noted Resolved Acquired buried penis [N48.83] 05/03/2023 Scarring of penis [N48.6] 05/03/2023 Erectile dysfunction associated with type 2 beverley*05/03/2023 Encounter Status:Closed by JOSHUA, PRODUSER on 05/08/23 [facility] 05-02-2023 Evaluation note Encounter Date Diagnosis Assessment Notes Apr, Subungual hematoma of finger of right hand, initial encounter (ICD-10 - S60.10XA) Patient instructed on washing with soap and applying ointment to help soften remaining callused area. Progress activity as tolerated [facility] 01-03-2024 Evaluation note* Encounter Date Diagnosis Assessment Notes Treatment Notes Treatment Clinical Notes Apr, ASHD (arteriosclerotic heart disease) (ICD-10 - I25.10) This patient is stable without activity related CP, dyspnea or lightheadedness. They are instructed to continue exercise and AHA diet plan. Continue secondary prevention measures. Apr, Chronic HFrEF (heart failure with reduced ejection fraction) (ICD-10 - I50.22) Apr, Type 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 with hyperglycemia (ICD-10 - E11.65) This patient is following a comprehensive diabetic treatment plan. They are checking their feet daily for calluses and nonhealing ulcers. They are being seen for yearly dilated eye examinations. Goals: SBP less than 130, LDL less than 100, FBS less than 140, A1C less than 7%. They are checking their BS daily, will which are reviewed at the office visit. Continue regular routine monitoring of A1C,] Microalbumin, Dilated eye exam and Foot exam Apr, Type 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 with diabetic polyneuropathy (ICD-10 - E11.42) Inspect feet daily for cuts and calluses.Recommend diabetic shoes and inserts to prevent callus formation.Fall precautions. Apr, Primary hypertension (ICD-10 - I10) This patient is instructed to consume a healthy, low-fat, low-salt diet. They are also encouraged to continue exercise to achieve/maintain a normal BMI. Apr, Hyperlipidemia type II (ICD-10 - E78.01) Instructed on diet and exercise with continued statin therapy.Discussed the beneficial effects of lowering cholesterol in reducing the risk for cerebrovascular and cardiovascular disease. Recently added Zetia - LDL chol 100 w/ goal < 70 Apr, Paroxysmal atrial fibrillation (ICD-10 - I48.0) This patient is in NSR or rate controlled. This patient is anticoagulated to prevent thromboembolic events. They are maintaining regular scheduled appts with their home care liaison. Post operative AF Amiodarone and Eliquis d/c and remains in NSR Apr, Chronic venous insufficiency of lower extremity (ICD-10 - I87.2) Avoid salt and elevate lower extremities, support stockings, inspect legs and feet daily for blisters and ulcerations. Apr, Gastroesophageal reflux disease with esophagitis without hemorrhage (ICD-10 - K21.00) Avoid lying flat after eating. Avoid eating 2 hours prior to bedtime. Smaller, frequent meals may be better tolerated.Weight loss if overweight.PPI with any heartburn.Monitor for dysphagia. Apr, Erectile dysfunction due to arterial insufficiency (ICD-10 - N52.01) Dr. Hackett offered injections. Referred to [facility] for evaluation and treatment [facility] 12-12-2023 Evaluation note* Encounter Date Diagnosis Assessment Notes Treatment Notes Treatment Clinical Notes Mar, Subungual hematoma of finger of right hand, initial encounter (ICD-10 - S60.10XA) Patient instructed on washing with soap and applying ointment to help soften scab area. [facility] Other 12-06-2023 Hospital Discharge instructions Patient Education 03/22/2023 11:43:07 Erectile Dysfunction Erectile Dysfunction Erectile dysfunction (ED) is the inability to get or keep an erection in order to have sexual intercourse. ED is considered a symptom of an underlying disorder and is not considered a disease. ED mayinclude: Inability to get an erection. Lack of [...] back or pelvic injuries, multiple sclerosis, Parkinson's disease,spinal cord injury, and stroke. Certain medicines, such [...] or the penis may be too curved toallow for intercourse. Never having nighttime or morning [...] penis. During this procedure, a blood vessel froma different part of the body is placed into the penis to allow blood to flow around (bypass) damaged or blocked blood vessels. Lifestyle changes, such as exercising more, losing weight, and quitting smoking. Follow these instructions at home: Medicines Take [id number]-[id number] and prescription medicines only as told by your health care provider. Do not increase the dosage without first discussing it with your health care provider. If you are using self-injections, do injections as directed by your health care provider. Make sureyou avoid any veins that are on the surface of the penis. After giving an injection, apply pressureto the injection site for 5 minutes. Talk [...] you need help quitting, ask your health careprovider. Before using a vacuum pump, read the instructions that come with the pump and discuss any questionswith your health care provider. Keep all follow-up [...] provider. Document Revised: 06/30/2021 Document Reviewed: 06/30/2021 [facility] Patient Education 2022 [employer] Follow Up Care 11/25/2022 08:22:24 With:ROXANN BARR, Antonia Sharma, URL Address: [address] [place], [place] [id number]- When: Unknown [facility] 11-22-2023 Evaluation note* Encounter Date Diagnosis Assessment Notes Treatment Notes Treatment Clinical Notes Feb, Type 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 with hyperglycemia (ICD-10 - E11.65) 1. Uncontrolled, a Type 2 diabetes with A1c of 7.2% 2. Blood glucose levels according to shivani 2 cgm download 02/23/23-03/08/23: Avg glucose 183. >250- 7%, >180-46%, 70-180-47 [...] or diabetes medication issues. 6. Prescriptions: VERNA KRISTIN: Sample toujeo max x1 pen given today. 7. Prescriptions will not be filled unless you are compliant with follow up appointments or have a follow up appointment scheduled as ordered by your provider. Refills should be requested at the time of your visit. Feb, Dietary counseling and surveillance (ICD-10 - Z71.3) see above Feb, HTN (hypertension) (ICD-10 - I10) On arb. 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 Keep covered while at work [facility] Other 10-06-2023 Evaluation note* Encounter Date Diagnosis [...] - E11.65) Increases risk of serious infection. [facility] Other 10-02-2023 NoteReviewed labs from 01/10/23 Pt is currently on lipitor 80 mg daily therefore will add zetia to regime for better Lipid management Repeat lipid level in 2-3 months. Robyn Negron CLINICAL PROFESSOR Division of Cardiology, [facility]- [phone] Pager- [phone] Email- [email or web address] Evaluation note* Encounter Date Diagnosis Assessment Notes Treatment Notes Treatment Clinical Notes Nov, Type 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 with hyperglycemia (ICD-10 - E11.65) [facility] Other [id number] NoteRemains stableUn[facility]08-22-2023 NoteresolvedUnKettering [facility] 12-06-2022 NoteHypertension is well controlled 102/63 Renal function stableUnKettering [facility]08-22-2023 NoteContinue statin and repeat LFT and lipid level.[facility] 12-06-2022 NoteCoronary artery disease is stable without concerning symptoms Continue GDMT- asa, lipitor and toprol continue risk factor modifications- heart healthy diet, regular exercise as tolerated and continue all medications.[facility] 12-06-2022 NoteNYHC II Continue GDMT- ASA, lipitor, farxiga, entresto, aldactone and toprol Diuretic therapy- farxiga and he remains euvolemic currently Monitor daily weights, I&O, fluid restriction 1.5-2L/day, renal function and electrolytes-[facility]08-22-2023 NoteUTP CARDIOLOGY PROGRESS NOTE HPI: Caden Wills is a 62 y.o. male here for Follow-up (6 month follow up ) HPI Pleasant 62-year-old man with prior history of coronary disease status post percutaneous intervention to chronically occluded LAD in 2007. Additional history includes diabetes, hypertension and hyperlipidemia. He was admitted in December 2021 to [facility] with chest pain and diagnosed with NSTEMI. [...] He was admitted in December 2021 to [facility] with chest pain and diagnosed with NSTEMI. [...] facility-administered medications on file (more content not included)...[facility]08-14-2023 Reason for visit NarrativeTKM - REFERRAL UROLOGY - NEED TO INFORM PATIENT 11/28/22[facility] Other 08-10-2023 Evaluation note* Encounter Date Diagnosis Assessment Notes Treatment Notes Treatment Clinical Notes Nov, Type 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 with hyperglycemia (ICD-10 - E11.65) 1. Controlled, a Type 2 diabetes with A1c of 6.6% 2. Blood glucose levels according to shivani 2 cgm download 11/11/22-11/24/22: Avg glucose 172. [...] or diabetes medication issues. 6. Prescriptions: VERNA KRISTIN: Sample shivani 2 cgm given today. 7. Prescriptions will not be filled unless you are compliant with follow up appointments or have a follow up appointment scheduled as ordered by your provider. Refills should be requested at the time of your visit. Nov, Dietary counseling and surveillance (ICD-10 - Z71.3) see above Nov, HTN (hypertension) (ICD-10 - I10) On arb. Nov, nursing home current use of insulin (ICD-10 - Z79.4) [...] dysfunction (ICD-10 - N52.9) referral to urology [facility] Other 08-10-2023 Evaluation note* Encounter Date Diagnosis Assessment Notes Treatment Notes Treatment Clinical Notes Nov, Erectile dysfunction (ICD-10 - N52.9) [facility] Other 07-03-2023 Evaluation note* Encounter Date Diagnosis [...] are maintaining regular scheduled appts with their home care liaison. No bleeding complications Oct, Type 2 diabetes [...] (ICD-10 - Z12.5) Yearly LADAN and PSA [facility] Other 05-08-2023 Evaluation note* Encounter Date Diagnosis Assessment Notes Treatment Notes Treatment Clinical Notes August, Type 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 with hyperglycemia (ICD-10 - E11.65) 1. Controlled, a Type 2 diabetes with A1c of 6.5% 2. Blood glucose levels according to [employer] 2 cgm download 08/09/22-08/22/22: Avg glucose 157. [...] or diabetes medication issues. 6. Prescriptions: VERNA FOSTER: None at this time. 7. Prescriptions will not be filled unless you are compliant with follow up appointments or have a follow up appointment scheduled as ordered by your provider. Refills should be requested at the time of your visit. August, Dietary counseling and surveillance (ICD-10 - Z71.3) see above August, HTN (hypertension) (ICD-10 - I10) On arb. August, nursing home current use of insulin (ICD-10 - Z79.4) [...] last visit, continue with weight loss efforts [facility] Other 04-03-2023 Evaluation note* Encounter Date Diagnosis Assessment Notes Treatment Notes Treatment Clinical Notes Jul, ASHD (arteriosclerot ic heart disease) (ICD-10 - I25.10) This patient is stable without activity related CP, dyspnea or lightheadedness. They are instructed to continue exercise and AHA diet plan. Instructed to continue exercise 2-3x weekly. After completiong CR plans on continuing at [facility] Jul, Primary hypertension (ICD-10 - I10) [...] (coronary artery bypass graft) (ICD-10 - Z95.1) [facility] Other 02-06-20[address] NoteUT Cardiology - [facility] Subjective Caden Wills is a 62 y.o. year old male patient being seen for follow up event monitor. He would like to return to work. Denies chest pain and SOB. He has completed cardiac rehab, and sometimes goes to the [facility] to exercise. Patient Active Problem List Diagnosis Chest pain NSTEMI (non-ST elevated myocardial infarction) ([facility]/HCC) Obesity Diabetes mellitus, type II, insulin dependent (CMS/HCC) Respiratory insufficiency Hypomagnesemia Hypertension Hyperlipidemia Postoperative atrial fibrillation (CMS/HCC) Coronary artery disease involving [place] coronary artery of [place] heart without angina pectoris Chronic systolic heart [...] He was admitted in December 2021 to [facility] with chest pain and diagnosed with NSTEMI. [...] tablet, Rfl: 3 do (more content not included)...[facility]02-02-2023 Evaluation note* Encounter Date Diagnosis Assessment Notes Treatment Notes Treatment Clinical Notes May, Type 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 with hyperglycemia (ICD-10 - E11.65) 1. Controlled, a Type 2 diabetes with A1c of 6.9% 2. Blood glucose levels according to [employer] cgm download 05/06/22-05/19/22: Avg glucose 189. >250- [...] carbs while at work. He will see home care liaison Monday to see if he will be [...] (hypertension) (ICD-10 - I10) On arb. May, nursing home current use of insulin (ICD-10 - Z79.4) May, Mixed hyperlipidemia (ICD-10 - E78.2) 01/2022 LDL 34 on statin- at target May, BMI 40.0-44.9, adult (ICD-10 - Z68.41) May, Vitamin B 12 deficiency (ICD-10 - E53.8) 02/05 vit b 12 227 at target May, Albuminuria (ICD-10 - R80.9) 02/05 m/a cr ratio 68. Reviewed importance of glucose/bp control to prevent further nephropathy [facility] Other 01-18-2023 Evaluation note* Encounter Date Diagnosis [...] may warrant EGD to r/o H. Pylori [facility] Other [id number] NoteCardiology Clinic Note Subjective Caden Wills is [...] Chest pain NSTEMI (non-ST elevated myocardial infarction) ([facility]) Obesity Diabetes mellitus, type II, insulin dependent ([facility]) Respiratory insufficiency Hypomagnesemia Hypertension Hyperlipidemia Postoperative atrial fibrillation ([facility]/HCC) Coronary artery disease involving [place] coronary artery of [place] heart without angina pectoris Chronic systolic heart failure ([facility]) History of coronary artery bypass [...] He was admitted in December 2021 to [facility] with chest pain and diagnosed with NSTEMI. [...] (100 mg) by m (more content not included)...[facility] 04-05-2022 NotePatient here for follow up echo [...] light-headedness. All other systems reviewed and are negative.[facility] 02-25-2022 NotePROCEDURE: XR FOOT RT MIN 3 [...] Electronically authenticated by: HEAVENLY LOUIS Date: 2022-02-25 06:39[facility]10-17-2022 NoteAddendum created 01/31/22 1618 by Shannon Hatch MD Intraprocedure Staff edited (Anesthesia)[facility] 01-31-2022 NoteSubjective Caden Wills is a 62 [...] atrial fibrillation (CMS/HCC) Coronary artery disease involving [place] coronary artery of [place] heart without angina pectoris Chronic systolic heart [...] He was admitted in December 2021 to [facility] with chest pain and diagnosed with NSTEMI. [...] dilTIAZem CD (Cardizem CD) (more content not included)...[facility]07-07-2022 Evaluation note* Encounter Date Diagnosis Assessment Notes Treatment Notes Treatment Clinical Notes Oct, Type 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 with hyperglycemia (ICD-10 - E11.65) 1. Uncontrolled, a Type 2 diabetes with A1c of 7.5% 2. Blood glucose levels above target. According to [employer] 2 cgm download 10/08/21-10/21/21: Avg glucose 197. [...] (hypertension) (ICD-10 - I10) On jonathan. Oct, nursing home current use of insulin (ICD-10 - Z79.4) Oct, Mixed hyperlipidemia (ICD-10 - E78.2) 11/2020 LDL 97.6 Triglycerides 347, on fenofibrate, Recommend moderate intensity statin f/u with pcp for further recommendation. Oct, BMI 40.0-44.9, adult (ICD-10 - Z68.41) 4 pound weight loss from last visit, continue with weight loss efforts Oct, Vitamin B 12 deficiency (ICD-10 - E53.8) [facility] Other 04-27-2022 Evaluation note* Encounter Date Diagnosis [...] days. Jul, Hematuria, unspecified (ICD-10 - R31.9) [facility] Other 03-15-2022 Evaluation note* Encounter Date Diagnosis Assessment Notes Treatment Notes Treatment Clinical Notes Jun, Type 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 with hyperglycemia (ICD-10 - E11.65) 1. Uncontrolled, a Type 2 diabetes with A1c of 7.4% 2. Blood glucose levels above target. According to [employer] 2 cgm download 06/16/21-06/29/21: Avg glucose 172. [...] (hypertension) (ICD-10 - I10) On jonathan. 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 Jun, BMI 40.0-44.9, adult (ICD-10 - Z68.41) see above [facility] Other 01-18-2022 Evaluation note* Encounter Date Diagnosis Assessment Notes Treatment Notes Treatment Clinical Notes Apr, Type 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 with hyperglycemia (ICD-10 - E11.65) [facility] Other 12-08-2021 Evaluation note* Encounter Date Diagnosis Assessment Notes Treatment Notes Treatment Clinical Notes Mar, Type 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 with hyperglycemia (ICD-10 - E11.65) 1. Controlled, a Type 2 diabetes with A1c of 6.6% 2. Blood glucose levels improved from last visit. According to [employer] 2 cgm download 03/11/21-03/24/21: Avg glucose 162. >250- 1%, >180-29%, 70-180-70%, <70-0%, <54-0%. CV 22.5%. Reviewed download with pt. readings above target from missed meal dose or late meal dose. Discussed with pt trial lyumjev which he could take 5 minutes before meal up to 20 minutes after meal. He is agreeable, reviewed this would take place of [employer]. He verbalizes understanding. Pt with history of [...] (hypertension) (ICD-10 - I10) On jonathan. 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 Mar, BMI 40.0-44.9, adult (ICD-10 - Z68.41) see above [facility] Other 09-22-2021 Evaluation note* Encounter Date Diagnosis Assessment Notes Treatment Notes Treatment Clinical Notes Dec, Type 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 with hyperglycemia (ICD-10 - E11.65) Erwin came in today for evaluation of his Shivani report after returning to work and continuing to use the device. Erwin is happy with the system and wants us to send a prescription to [facility] in [place]. Erwin's BG has averaged 163 for the [...] snack at MidNight. No further changes. 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 [facility] Other Evaluation + Plan [facility] Evaluation noteNo InformationNort [facility] Other Evaluation noteNo assessment information available [facility] Work Phone: Evaluation note* Diagnosis Screening for genitourinary condition Screening for other and unspecified genitourinary condition documented in this encounter [facility] N[facility]ative - Reported* Type Description Date Medical History diabetes mellitus Medical History hypertension Medical History pancreatitis Medical History HLP Medical History R foot ulcer Surgical History heart stent Surgical History RIGHT FOOT SECOND TOE AMPUTATED 07/03 Hospitalization History see above Hospitalization History Gastric issues 03/2017 [facility] Other Hisgibg general Narrative - Reported* Type Description Date Medical History diabetes mellitus Medical History hypertension Medical History pancreatitis Medical History HLP Medical History R foot ulcer Surgical History heart stent Surgical History RIGHT FOOT SECOND TOE AMPUTATED 07/03 Surgical History 5 Bypass surgery [facility] john 12/31/2021 Hospitalization History see above Hospitalization History Gastric issues 03/2017 Hospitalization History [facility]yp ass surgery 12/2021 [facility] Other Hisfapd general Narrative - Reported* Type Description Date Medical History Heart failure with preserved eje ction fraction Medical History Acute prostatitis Medical History ASHD (arteriosclerotic heart dis ease) Medical History Balanitis Medical History Transient atrial fibrillation Medical History Unspecified open wou nd of unspecified toe(s) with damage to nail, subsequent encounter Medical History Type 2 diabetes david itus with diabetic polyneuropathy, unspecified whether fdc insulin use Medical History nursing home current use of insulin Medical History S/P [...] versity Espinosa, CABG.4-5 VESSELS 12/31/2021 Surgical History [facility] PTCA/STENT LAD 2007 Surgical History COLONOSCOPY Hospitalization History see above Hospitalization History Gastric issues 03/2017 Hospitalization History [facility]-By ass surgery 12/2021 [facility] Other Hospital course Narrative No data available for this section [facility] Progress note No data available for this section [facility] Reason for referral (narrative) Referred by: Antonia HACKETT MD [facility] Chief Complaint and Reason for Visit Chief Complaint e11.65 E11.65 Chief Complaint Dm e11.65 6 Month Follow Up 4-5 Weeks Advance Directives Advance Directive Response Recorded Date/ Time Advance Directives No September 28 1:24pm Advance Directive Response Recorded Date/ Time Advance Directives No September 28 12:24pm Reason for Referral Reason *Waiting for appt Diabetic patient being referred for possible abscess following an injury to his right index finger Diagnosis 1 Crushing injury of r ight index finger, initial encounter (S67.190A) Diagnosis 2 Abscess of finger of right hand (L02.511) Referral Organization [facility] Referring Provider First Name Fahad Referring Provider Last Name Yola Referring Provider Specialty Internal Me marineine Referred Organization [facility] Referred Provider Yarelis Santacruz Referred Address [address] [place],[address] Referred Provider Specialty Orthopedic S urgery Referral [...] Diagnosis 1 Erectile dysfunction (N52.9) Referral Organization [facility] Referring Provider First Name Yamilex Referring Provider Last Name Bull Referring Provider Specialty Nurse Pract itioner Referred Organization Unknown Facility Referred Provider Antonia Hackett Referred Provider Specialty Urology Referral Priority Routine Referral Appointment Date 2023-03-22 General Notes Tracie Alvarado 11/15 08:20:19 AM >Spoke to Poonam and patient scheduled for [place] office on 03/22/23 at 11am at [address] [place] [address] [address] in [place]. Tracie Alvarado 11/28/2022 09:35:22 AM >Text message sent to patient requesting he call me for Referral details. Tracie Alvarado 11/28/2022 12:00:13 PM >Patient returns my call and is informed of appt. Reason Left great toe wound from new work boots - appt needs to be after 2pm Diagnosis 1 Type 2 diabetes david itus with hyperglycemia (E11.65) Referral Organization [facility] Referring Provider First Name Yamilex Referring Provider Last Name Bull Referring Provider Specialty Nurse Melani emerson Referred Organization Unknown Facility Referred Provider Damian Ontiveros Referred Provider Specialty Podiatry - S urgical Chiropody Referral Priority Routine Referral Appointment Date 2022-08-24 General Notes Tracie Alvarado 11/2022 04:17:56 PM >Spoke with Mellissa. Patient scheduled for 08/24/22 at 2pm. Patient informed. Summary Purpose Family History Relationship Condition Age at Onset Recorded Date/T naz father Unknown Hypertension Unknown History of stroke Unknown Not Specified Unknown Diabetes mellitus Unknown Additional Source Comments REASON FOR VISIT (unrecogniz ed section and content) Reason Comments [employer] Developer - Other Care Teams (unrecognized sec tion and content) Team Status: Active Member Role Status Dates Fahad Salinas DO Primary Care Provider Active Team Status: Inactive Member Role Status Dates Yamilex Gottlieb APRN Attending Provider Active Start: March 08, 2023 End: March 08, 2023 Team Status: Inactive Member Role Status Dates Fahad Salinas DO Primary Care Provider Active Start: March 08, 2023 End: March 08, 2023 Yamilex Gottlieb APRN Attending Provider Active Start: March 08, 2023 End: March 08, 2023 Team Status: Inactive Member Role Status Dates Fahad Salinas DO Attending Provider Active Sta rt: April 19, 2023 End: April 19, 2023 Team Status: Inactive Member Role Status Dates Yarelis Santacruz MD Attending Provider Active Start: May 02, 2023 End: May 02, 2023 Team Status: Inactive Member Role Status Dates Fahad Salinas DO Primary Care Provider Active Yamilex Gottlieb APRN Attending Provider Active Team Status: Active Member Role Status Dates Fahad Salinas DO Primary Care Provider Active Yamilex Gottlieb APRN Attending Provider Active User Experience Developer Relationship Specialty Start Date End Date Antonia Hackett [address] [place] [address] Referring Urology 03/25/23 User Experience Developer Relationship Specialty Start Date End Date Antonia Hackett [address] [place] [address] Referring Urology 03/25/23 Goals (unrecognized section and content) Goals may be documented in a n alternate section (unrecognized sect ion and content) No Status Records FoundNo Status Records FoundNo Status Records FoundNo Status Records FoundNo Status Records Found INFORMATION SOURCE (unrecogn ized section and content) DATE CREATED AUTHOR 08/31/2022 [facility] DATE CREATED AUTHOR AUTHOR'S ORGANIZ ATION 01/21/2023 [facility] DATE CREATED AUTHOR AUTHOR'S ORGANIZ ATION 05/08/2023 [facility] DATE CREATED AUTHOR AUTHOR'S ORGANIZ ATION 05/16/2023 [facility] DATE CREATED AUTHOR AUTHOR'S ORGANIZ ATION 06/01/2023 [facility] Source Comments (unrecognize d section and content) In the event this informatio n is protected by the Federal Confidentiality of Alcohol and Drug Abuse Patient Records regulations: The Federal rules restrict any use of the information to criminally investigate or prosecute any alcohol or drug abuse patient.[facility] the event this information is protected by the Federal Confidentiality of Alcohol and Drug Abuse Patient Records regulations: The Federal rules restrict any use of the information to criminally investigate or prosecute any alcohol or drug abuse patient.[facility] the event this information is protected by the Federal Confidentiality of Alcohol and Drug Abuse Patient Records regulations: The Federal rules restrict any use of the information to criminally investigate or prosecute any alcohol or drug abuse patient.[facility] FOR RECORDS PERTAINING TO PATIENTS WHO ARE [...] BE BASED ON THE PRIMARY CLINICAL RECORDS. [facility] [employer] [facility]. provides no warranty or guarantee of the accuracy or completeness of information in this document.
[2023-06-19 08:35] LABS: Chol HDL Ratio 4.4; Cholesterol 141 mg/dL (<=200); HDL Cholesterol 32 mg/dL (40-60); Triglycerides 215 mg/dL (<=150)
== END 2023-06-19 07:52 | disposition home or self-care (01) ==
LOC: LAB 07:52
PROVIDERS: PCP Internal Medicine; Visit Provider Nurse Practitioner
DX: I50.22 Chronic systolic (congestive) heart failure (principal); E78.2 Mixed hyperlipidemia; I25.10 Atherosclerotic heart disease of native coronary artery without angina pectoris
CPT/HCPCS: 36415; 80048; 80061

== ENCOUNTER 2023-06-19 09:35 | Outpatient (REF) | payer OTHER, SELFPAY ==
--- OUTSIDE RECORDS SUMMARY | 2023-06-19 09:39 | XMS_ITS | CCD ---
Author Name Unknown Address [address] [facility] [place] [address] Organization [facility] Care Team Providers Care Cryptologic Support Specialist Name Role Phone Yamilex Gottlieb Unavailable Celestina Greene Unavailable DO Fahad Salinas Primary Care Provider JAKE Gottlieb Attending Provider [phone] Fahad Salinas Unavailable YOLA, DR GUSTAFSON Primary [...] MOUKARBEL, DR COTTRELL Attending Unavailable BALL, DR GUTSAFSON Primary Care Unavailable BALL, DR GUSTAFSON Primary [...] Primary Care Provider JAKE Gottlieb Attending Provider Yamilex Gottlieb Attending Unavailable Yamilex Gottlieb Admitting Unavailable Fahad Salinas Primary Care Unavailable Allergies Allergy Classification Reported Allergen(s) Allergy Type Date of Onset Reaction(s) Facility (20 sources) empagliflozin Drug Allergy uti [facility] Other (20 sources) icosapent ethyl Drug Allergy n/v [facility] Other (1 source) empagliflozin Drug Allergy [address] [place] [address] Repository (1 source) icosapent ethyl Drug Allergy [address] [place] [address] Repository Medications Current Medications Medication Drug Class(es) [...] MORNING AND 1 TABLET AT BEDTIME omega 2-bkn-oco-fish oil (FISH OIL) 100-160-1,000 mg cap (3 sources) omega 9-hot-rzg-fish oil (FISH OIL) 100-160-1,000 mg cap Take [...] Coronary arteriosclerosis; 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: [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] Onset: 01-06-2022 [...] sources) Long-term current use of insulin; 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: [shelter (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] Episodic Other aftercare (8 sources) shelter (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; 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: [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 00TIFF Arnaldo [facility] CNOVon 05-03-2023 CNOV Office Visit (UROLMN ) CADEN WILLS ([id number]) 1960 M Date Time Provider Department 05/03/23 2:00 PM JIAN DURAN During your visit today, we recorded the following information about you: Pulse Blood pressure Weight Height 67/minute 137/78 123.4 kg 1.778 m Jian Duran MD 05/03/2023 2:28 PM Signed [facility] NEW PATIENT HISTORY AND PHYSICAL EXAM PATIENT INFO: Caden Wills 63 year old REFERRING M.D.: Antonia Hackett MD [address] [place], [place] [id number] This consult was requested by Dr. Hackett for an opinion regarding buried penis and erectile dysfunction, and my final recommendations will be communicated to the requesting health care provider by way of the shared medical record for internal providers or letter via the [employer] for external providers. 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 , interested in future sexual life. MEDICATIONS: [...] noted ASSESSMENT/PLAN: (more content not included)... Normal [facility] URINALYSIS, REFLEX MICROSCOP ICon 05-03-2023 Bilirubin Ql (U) Negative Normal Negative Gustavo amos Count Includes [facility] Comment on above: Order Comment: Speci men Type: URINE SPECIMEN Ordering Facility: [facility] Address: [address] [place] [address] Performed By: #### L [id number] #### [facility] CLIA [id number] [address] [place] [address] [place] Clarity (Unsp spec) Clear Normal Clear [facility] Comment on above: Order Comment: Speci men Type: URINE SPECIMEN Ordering Facility: [facility] Address: [address] [place] [address] Performed By: #### L [id number] #### [facility] CLIA [id number] [address] [place] [address] [place] Color (U) Light Yellow Normal Yellow [facility] Comment on above: Order Comment: Speci men Type: URINE SPECIMEN Ordering Facility: [facility] Address: [address] [place] [address] Performed By: #### L [id number] #### [facility] CLIA [id number] [address] [place] [address] [place] Glucose Test strip (U) [Mass/Vol] 4+ Abnormal Trace, Negative [facility] Comment on above: Order Comment: Speci men Type: URINE SPECIMEN Ordering Facility: [facility] Address: [address] [place] [address] Performed By: #### L [id number] #### [facility] CLIA [id number] [address] [place] [address] [place] Hemoglobin Ql (U) Negative Normal Negative, Trace [facility] Comment on above: Order Comment: Speci men Type: URINE SPECIMEN Ordering Facility: [facility] Address: [address] [place] [address] Performed By: #### L [id number] #### [facility] CLIA [id number] [address] [place] [address] [place] Ketones Ql (U) Negative Normal Negative, Trace [facility] Comment on above: Order Comment: Speci men Type: URINE SPECIMEN Ordering Facility: [facility] Address: [address] [place] [address] Performed By: #### L [id number] #### [facility] CLIA [id number] [address] [place] [address] [place] Leukocyte esterase Test strip Ql (U) 25 Quintin/uL Normal Negative, 25 Quintin/uL [facility] Comment on above: Order Comment: Speci men Type: URINE SPECIMEN Ordering Facility: [facility] Address: [address] [place] [address] Performed By: #### L [id number] #### [facility] CLIA [id number] [facility] [place] [address] [place] Nitrite Ql (U) Negative Normal Negative [facility] Comment on above: Order Comment: Speci men Type: URINE SPECIMEN Ordering Facility: [facility] Address: [address] [place] [address] Performed By: #### L [id number] #### [facility] CLIA [id number] [address] [place] [address] [place] pH (U) 5.5 [pH] Normal 5.0-8.0 [facility] Comment on above: Order Comment: Speci men Type: URINE SPECIMEN Ordering Facility: [facility] Address: [address] [place] [address] Performed By: #### L [id number] #### [facility] CLIA [id number] [address] [place] [address] [place] Protein (U) [Mass/Vol] Negative Normal Trace , Negative [facility] Comment on above: Order Comment: Speci men Type: URINE SPECIMEN Ordering Facility: [facility] Address: [address] [place] [address] Performed By: #### L [id number] #### [facility] CLIA [id number] [address] [place] [address] [place] Specific gravity (U) [Rel density] 1.032 High 1.005-1.030 [facility] Comment on above: Order Comment: Speci men Type: URINE SPECIMEN Ordering Facility: [facility] Address: [address] [place] [address] Performed By: #### L [id number] #### [facility] CLIA [id number] [address] [place] [address] [place] Urobilinogen Ql (U) Negative Normal Negative [facility] Comment on above: Order Comment: Speci men Type: URINE SPECIMEN Ordering Facility: [facility] Address: [address] [place] [address] Performed By: #### L [id number] #### [facility] CLIA [id number] [address] [place] [address] [place] Bilirubin Ql (U) Negative Negative [facility] Clarity (Unsp spec) Clear Clear [facility] Color (U) Light Yellow Yellow [facility] Glucose Test strip (U) [Mass/Vol] 4+ Abnormal Trace, Negative [facility] Hemoglobin Ql (U) Negative Negative, Trace [facility] Ketones Ql (U) Negative Negative, Trace [facility] Leukocyte esterase Test strip Ql (U) 25 Quintin/uL Negative, 25 Quintin/uL [facility] Nitrite Ql (U) Negative Negative [facility] pH (U) 5.5 [pH] 5.0 - 8.0 [facility] Protein (U) [Mass/Vol] Negative Trace , Negative [facility] Specific gravity (U) [Rel density] 1.032 High 1.005 - 1.030 [facility] Urobilinogen Ql (U) Negative Negative [facility] Physician Referralon 023 Physician Referral [id number] .00TIFF Normal [facility] Physician Referralon 023 Physician Referral [id number] .00TIFF Normal [facility] Physician Referralon 023 Physician Referral [id number] .00TIFF Normal [facility] Screenson 03-23-2023 Screens [id number] .00TIFF Normal [facility] Ambulatory Visit Summaryon 1 05-23-2022 Ambulatory Visit Summary CADEN WILLS :1960 Visit Date:03/22/2023 Ambulatory Visit Instructions Your Diagnosis ED (erectile dysfunction) Phimosis Hidden penis Balanoposthitis Anticoagulated Tests Performed Urnls Dip Stick Auto w/o Microscopy POC 69251 Your Care Team Attending Physician - Antonia HACKETT MD Primary Care Physician - YAMILEX [...] with Antonia HACKETT MD, NITINL When: Where: [address] [place] [address] [place] [address]- Someone Will Contact You Regarding These Appointments [facility] External Ambulatory Referral, Urology, Dr. Duran, 03/22/23 11:49:00 EST, Phimosis Normal [facility] Patient Educationon 03-22-20 Patient Education [...] these instructions at home: Medicines ? Take rnkb-uty-tfxwykx and prescription medicines only as told by [...] cig (more content not included)... Normal 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 S/p bypass [...] seen by Dr. Jian Duran at the [facility] for his opinion. He can utilize emrj-ers-doxmceo Monistat cream/triple antibiotic on a as needed [...] with voice recognition artificial intelligence software, specifically [employer], [employer] and o (more content not included)... Normal [facility] Comment on above: Result Comment: Elec tronically Signed By: Antonia HACKETT MD\.br\Date and Time Signed: 03/22/23 12:07 EST\.br\Electronically Co-Signed By: Maria M Campos\.br\Date and Time Co-Signed: 03/22/23 11:53 EST A1C HEMOGLOBINon 03-08-2023 HbA1c (Bld) [Mass fraction] 7.2 % [facility] Other Glucose - FINGER STICKon Glucose [Mass/Vol] 187 mg/dL [facility] Other HbA1c (Bld) [Mass fraction]o n 03-08-2023 A1C HEMOGLOBIN [facility] [employer] Other Orders Onlyon 01-16-2023 Orders Only [id number] Caden Wills A 1960 M Date Provider Department Center 01/16/2023 ROBYN CASTILLOaren . Family History Problem Relation Age of Onset Coronary artery disease Father Family Status - Relation Status Age at Father Normal [facility] Office Visiton 12-06-2022 Follow-up visit [id number] Caden Wills A 1960 M Date Provider Department Center 12/06/2022 ROBYN CASTILLO [facility] Family History Problem Relation Age of Onset Coronary artery disease Father Family Status - Relation Status Age at Father Level of Service:03156 [place] OFFICE/OUTPATIENT ESTABLISHED MOD MDM 30-39 MIN Reason for Visit and Comments: Follow-up [382514] - 6 month follow up [facility] A1C HEMOGLOBINon 11-24-2022 HbA1c (Bld) [Mass fraction] 6.6 % [facility] Other Glucose - FINGER STICKon Glucose [Mass/Vol] 102 mg/dL [facility] Other HbA1c (Bld) [Mass fraction]o n 11-24-2022 A1C HEMOGLOBIN [employer] Other A1C HEMOGLOBINon 08-22-2022 HbA1c (Bld) [Mass fraction] 6.5 % [facility] Other Glucose - FINGER STICKon Glucose [Mass/Vol] 159 mg/dL [facility] Other HbA1c (Bld) [Mass fraction]o n 08-22-2022 A1C HEMOGLOBIN [employer] Other Office Visiton 05-23-2022 Follow-up visit [id number] Caden Wills [place] 1960 M [facility] Provider Department Center 05/23/2022 SIMAB REYEZ BOB [facility] Family History Problem Relation Age of Onset Coronary artery disease Father Family Status - Relation Status Age at Father Level of Service:32570 [place] OFFICE/OUTPATIENT ESTABLISHED MOD MDM 30-39 MIN Reason for Visit and Comments: Coronary Artery Disease [187] Hypertension [377991] Normal [facility] A1C HEMOGLOBINon 05-19-2022 HbA1c (Bld) [Mass fraction] 6.9 % [facility] Other Glucose - FINGER STICKon Glucose [Mass/Vol] 206 mg/dL [facility] Other HbA1c (Bld) [Mass fraction]o n 05-19-2022 A1C HEMOGLOBIN [employer] Other 37on 04-05-2022 37 -Proceed with previously recommended heart monitor -Discontinue Bumex, monitor swelling and weight - Continue cardiac rehab Normal [facility] Office Visiton 04-05-2022 Follow-up visit [id number] Caden Wills [place] 1960 M Date Provider Department Center 04/05/2022 JOCE SANDERS BOB Bennett Family History Problem Relation Age of Onset Coronary artery disease Father Family Status - Relation Status Age at Father Level of Service:71910 [place] OFFICE/OUTPATIENT ESTABLISHED MOD MDM 30-39 MIN Reason for Visit and Comments: Coronary Artery Disease [187] Atrial Fibrillation [80] Congestive Heart Failure [127] NSTEMI [Other] Normal [facility] UA RANDOMon 04-05-2022 Bilirubin Ql (U) Negative Normal NEGATIVE [facility] Comment on above: Performed By: #### U A #### [facility] [address] [place] [address] Dr. Jose Rojas Clarity (U) CLOUDY Abnormal CLEAR [facility] Comment on above: Performed By: #### U A #### [facility] [address] [place] [address] Dr. Jose Rojas Color (U) LT. YELLOW Normal YELLOW [facility] Comment on above: Performed By: #### U A #### [facility] [address] [place] [address] Dr. Jose Rojas Glucose Ql (U) >1000 Abnormal NEGATIVE [facility] Comment on above: Performed By: #### U A #### [facility] [address] [place] [address] Dr. Jose Rojas Hemoglobin Ql (U) MODERATE Abnormal NEGATIVE [facility] Comment on above: Performed By: #### U A #### [facility] [address] [place] [address] Dr. Jose Rojas Ketones Ql (U) Negative Normal NEGATIVE [facility] Comment on above: Performed By: #### U A #### [facility] [address] [place] [address] Dr. Jose Rojas LEUKOCYTES MODERATE Abnormal NEGATIVE [facility] Comment on above: Performed By: #### U A #### [facility] [address] [place] [address] Dr. Jose Rojas Nitrite Ql (U) Negative Normal NEGATIVE [facility] Comment on above: Performed By: #### U A #### [facility] [address] [place] [address] Dr. Jose Rojas pH (U) 5.5 [pH] Normal 5-9 [facility] Comment on above: Performed By: #### U A #### [facility] [address] [place] [address] [address] Jose Rojas SPEC GRAVITY <=1.005 Abnormal 1.005-<=1.0 25 [facility] Comment on above: Performed By: #### U A #### [facility] [address] [place] [address] [address] Jose Rojas UA PROTEIN Negative Normal NEGATIVE/ TRACE [facility] Comment on above: Performed By: #### U A #### [facility] [address] [place] [address] [address] Jose Rojas Urobilinogen Qn (U) 0.2 {Ritu'U}/dL Normal 0.2 - 1. 0 [facility] Comment on above: Performed By: #### U A #### [facility] [address] [place] [address] [address] Jose Rojas ECHOCARDIO M/2D COMPLETEon 1 05-31-2021 ECHOCARDIO M/2D COMPLETE Patient: CADEN WILLS Exam Date: 03/30/2022 : 1960 Gender:M Ordering : DR SIMBA CURRAN M.D. Admission #: [id number] Family : DR FAHAD SALINAS DChris Order #: [id number] CLICK HERE TO VIEW EXAM ECHOCARDIOGRAM REPORT [...] Muniz M.D. on 03/31/2022 at 14:44 Normal [facility] Refillon 02-23-2022 Refill [id number] Caden Wills [place] 1960 Date Provider Department Center 02/23/2022 VENANCIO [facility]ADERA [facility] Problem Relation Age of Onset Coronary artery disease Father Family Status - Relation Status Age at Father Reason for Visit and Comments: Med Refill [791217] Normal [facility] BNPon 02-16-2022 Natriuretic peptide B (Bld) [Mass/Vol] 335.0 pg/mL Normal <=900.0 [facility] Comment on above: Performed By: #### B BOG CUTTER #### [facility] [address] [place] [address] Dr. Jose Rojas CBC AUTO DIFFon 02-16-2022 BASO # 0.1 103/ul Normal 0.0-0.1 [facility] Comment on above: Performed By: #### D ATCBC #### [facility] [address] [place] [address] Dr. Jose Rojas Basophils/100 WBC (Bld) 0.7 % Normal 0.2-2.0 [facility] Comment on above: Performed By: #### D ATCBC #### [facility] [address] [place] [address] Dr. Jose Rojas EO # 0.4 103/ul Normal 0.0-0.7 [facility] Comment on above: Performed By: #### D ATCBC #### [facility] [address] [place] [address] Dr. Jose Rojas Eosinophils/100 WBC (Bld) 3.9 % Normal 0.9-7.0 [facility] Comment on above: Performed By: #### D ATCBC #### [facility] [address] [place] [address] Dr. Jose Rojas Erythrocyte distribution width (RBC) [Ratio] 16.5 % Critically high 11.0-15.0 [facility] Comment on above: Performed By: #### D ATCBC #### [facility] [address] [place] [address] Dr. Jose Rojas Hematocrit (Bld) [Volume fraction] 44.9 % Normal 42.0-54.0 [facility] Comment on above: Performed By: #### D ATCBC #### [facility] [address] [place] [address] Dr. Jose Rojas Hemoglobin (Bld) [Mass/Vol] 14.3 g/dL Normal 14.0-18.0 [facility] Comment on above: Performed By: #### D ATCBC #### [facility] [address] [place] [address] Dr. Joes Rojas IG # 0.33 10e3/ul Critically high 0.00-0.03 [facility] Comment on above: Performed By: #### D ATCBC #### [facility] [address] [place] [address] Dr. Jose Rojas IG % 3.5 % Critically high 0.0-0.5 [facility] Comment on above: Performed By: #### D ATCBC #### [facility] [address] [place] [address] Dr. Jose Rojas LYMPH # 1.9 103/ul Normal 1.2-3.8 [facility] Comment on above: Performed By: #### D ATCBC #### [facility] [address] [place] [address] Dr. Jose Rojas Lymphocytes/100 WBC (Bld) 19.8 % Critically low 20.5-60.0 [facility] Comment on above: Performed By: #### D ATCBC #### [facility] [address] [place] [address] Dr. Jose Rojas MCH (RBC) [Entitic mass] 27.1 pg Normal 25.9-34.0 [facility] Comment on above: Performed By: #### D ATCBC #### [facility] [address] [place] [address] Dr. Jose Rojas MCHC (RBC) [Mass/Vol] 31.8 g/dL Normal 29.9-35.2 [facility] Comment on above: Performed By: #### D ATCBC #### [facility] [address] [address] [address] Jose Rojas MCV (RBC) [Entitic vol] 85.0 fL Normal 80.0-94.0 [facility] Comment on above: Performed By: #### D ATCBC #### [facility] [address] [place] [address] Dr. Jose Rojas MONO # 0.9 103/ul Critically high 0.3-0.8 [facility] Comment on above: Performed By: #### D ATCBC #### [facility] [address] [place] [address] Dr. Jose Rojas Monocytes/100 WBC (Bld) 9.1 % Normal 1.7-12.0 [facility] Comment on above: Performed By: #### D ATCBC #### [facility] [address] [place] [address] Dr. Jose Rojas NEUT # 6.0 103/ul Normal 1.4-6.5 [facility] Comment on above: Performed By: #### D ATCBC #### [facility] [address] [place] [address] Dr. Jose Rojas Neutrophils/100 WBC (Bld) 63.0 % Normal 43.0-75.0 [facility] Comment on above: Performed By: #### D ATCBC #### [facility] [address] [place] [address] Dr. Jose Rojas Platelet mean volume (Bld) [Entitic vol] 9.2 fL Critically low 9.5-13.5 [facility] Comment on above: Performed By: #### D ATCBC #### [facility] [address] [place] [address] Dr. Jose Rojas PLT 485 103/ul Critically high 150-[address] [facility] Comment on above: Performed By: #### D ATCBC #### [facility] [address] [place] [address] Dr. Jose Rojas RBC 5.28 106/ul Normal 4.70-6.10 [facility] Comment on above: Performed By: #### D ATCBC #### [facility] [address] [address] [address] Jose Rojas WBC 9.6 103/ul Normal 4.0-11.0 [facility] Comment on above: Performed By: #### D ATCBC #### [facility] [address] [address] [address] Jose Rojas EMERSON- BMP WITH LIPIDon 2021 Anion gap [Moles/Vol] 14.3 mmol/L Normal [facility] Comment on above: Performed By: #### D ATBMP #### [facility] [address] [place] [address] Dr. Jose Rojas Calcium [Mass/Vol] 9.9 mg/dL Normal 8.5-10.1 [facility] Comment on above: Performed By: #### D ATBMP #### [facility] [address] [address] [address] Jose Rojas Chloride [Moles/Vol] 101 mmol/L Normal 98-107 [facility] Comment on above: Performed By: #### D ATBMP #### [facility] [address] [place] [address] Dr. Jose Rojas Cholesterol [Mass/Vol] 110 mg/dL Normal <=200 [facility] Comment on above: Performed By: #### D ATBMP #### [facility] [address] [address] [address] Jose Rojas Cholesterol in HDL [Mass/Vol] 28 mg/dL Critically low 40-60 [facility] Comment on above: Performed By: #### D ATBMP #### [facility] [address] [address] [address] Jose Rojas Cholesterol in LDL [Mass/Vol] 21.2 mg/dL Normal [facility] Comment on above: Performed By: #### D ATBMP #### [facility] [address] [address] [address] Jose Rojas CO2 [Moles/Vol] 28.2 mmol/L Normal 21.0-32.0 [facility] Comment on above: Performed By: #### D ATBMP #### [facility] [address] [address] [address] Jose Rojas Creatinine [Mass/Vol] 1.14 mg/dL Normal 0.70-1.30 [facility] Comment on above: Performed By: #### D ATBMP #### [facility] [address] [address] [address] Jose Rojas EGFR-AF FILIPINO >60 Normal >=60 [facility] Comment on above: Performed By: #### D ATBMP #### [facility] [address] [address] [address] Jose Rojas EGFR-NON AF FILIPINO >60 Normal >=60 [facility] Comment on above: Performed By: #### D ATBMP #### [facility] [address] [address] [address] Jose Rojas Glucose [Mass/Vol] 254 mg/dL Critically high 74-106 [facility] Comment on above: Performed By: #### D ATBMP #### [facility] [address] [address] [address] Jose Rojas HDL NORMAL > or = 60 mg/dl - LO W CARDIOVASCULAR RISK <40 mg/dl - HIGH CARDIOVASCULAR RISK Normal [facility] Comment on above: Performed By: #### D ATBMP #### [facility] [address] [address] [address] Jose Rojas LDL CALC NORMAL SEE BELOW Normal [facility] Comment on above: Result Comment: <100 mg/dl OPTIMAL 100 - 129 mg/dl NEAR OR ABOVE OPTIMAL 130 - 159 mg/dl BORDERLINE HIGH 160 - 189 mg/dl HIGH >190 mg/dl VERY HIGH Performed By: #### D ATBMP #### [facility] [address] [address] [address] Jose Rojas Potassium [Moles/Vol] 4.5 mmol/L Normal 3.5-5.1 [facility] Comment on above: Performed By: #### D ATBMP #### [facility] [address] [address] [address] Jose Rojas Sodium [Moles/Vol] 139 mmol/L Normal 136-145 [facility] Comment on above: Performed By: #### D ATBMP #### [facility] [address] [address] [address] Jose Rojas Triglyceride [Mass/Vol] 304 mg/dL Critically high <=150 [facility] Comment on above: Performed By: #### D ATBMP #### [facility] [address] [address] [address] Jose Rojas Urea nitrogen [Mass/Vol] 21.0 mg/dL Critically high 7.0-18.0 [facility] Comment on above: Performed By: #### D ATBMP #### [facility] [address] [address] [address] Jose Rojas Urea nitrogen/Creatinine [Mass ratio] 18.4 mg/mg Normal [facility] Comment on above: Performed By: #### D ATBMP #### [facility] [address] [address] [address] Jose Rojas VLDL CALC 60.8 mg/dL Normal [facility] Comment on above: Performed By: #### D ATBMP #### [facility] [address] [address] [address] Jose Rojas Albumin [Mass/volume] in Ser um or PlasmaOrdered By: Yamilex Gottlieb on 02-11-2022 Albumin [Mass/Vol] 3.5 g/dL 3.2-5.5 [facility] Cholesterol [Mass/volume] in Serum or PlasmaOrdered By: Yamilex Gottlieb on 02-11-2022 Cholesterol [Mass/Vol] 96 mg/dL 140-200 [facility] Comment on above: Chol less than 200 m g/dl low riskChol 201-239 mg/dl borderline riskChol 240 mg/dl and greater high risk Cholesterol in LDL Calc [Mas s/Vol]Ordered By: Yamilex Gottlieb on 02-11-2022 Cholesterol in LDL [Mass/Vol] 34 mg/dL 0-100 Comment on above: LDL ATP III CLASSIFI CATIONLDL less than 100 mg/dL OptimalLDL 100-129 mg/dL Near or above optimalLDL 130-159 mg/dL Borderline highLDL 160-189 mg/dL HighLDL greater than 189 mg/dL Very high Cholesterol in VLDL Calc [Ma ss/Vol]Ordered By: Yamilex Gottlieb on 02-11-2022 Cholesterol in VLDL [Mass/Vol] 28 mg/dL Creatinine [Mass/volume] in UrineOrdered By: Yamilex Gottlieb on 02-11-2022 Creatinine (U) [Mass/Vol] 49.7 mg/dL Comment on above: No reference range e stablished Creatinine and Glomerular fi ltration rate.predicted panel (S/P/Bld)Ordered By: Yamilex Gottlieb on 02-11-2022 Creatinine [Mass/Vol] 0.85 mg/dL 0.64-1.27 [facility] Estimated glomerular filtrat ion rate (GFR) non- AmericanOrdered By: Yamilex Gottlieb on 02-11-2022 GFR/1.73 sq M.predicted among non-blacks MDRD (S/P/Bld) [Vol rate/Area] > 60 mL/Min Globulin Calc (S) [Mass/Vol] Ordered By: Yamilex Gottlieb on 02-11-2022 Globulin (S) [Mass/Vol] 3.2 g/dL [facility] - Chemistry and C hemistry - challengeOrdered By: Yamilex Gottlieb on 02-11-2022 Cobalamin (Vitamin B12) [Mass/Vol] 227 pg/mL 180-914 No Panel InformationOrdered By: Yamilex Gottlieb on 02-11-2022 Estimated GFR () > 60 mL/Min Comment on above: GFR estimated refere nce range: According to KDOQI guidelines, <60 ml/min/1.73m2 is sufficient to diagnose a patient with chronic kidney disease. Pharmacy Creatinine Clearance (Chem N/A Protein [Mass/volume] in Ser um or PlasmaOrdered By: Yamilex Gottlieb on 02-11-2022 Protein [Mass/Vol] 6.7 g/dL 6.1-7.9 [facility] Serum or plasma alanine mccoy otransferase measurement without P-5'-P (enzymatic activiOrdered By: Yamilex Gottlieb on 02-11-2022 ALT No additional P-5'-P [Catalytic activity/Vol] 23 U/L 10-60 Serum or plasma albumin/glob ulin mass ratioOrdered By: Yamilex Gottlieb on 02-11-2022 Albumin/Globulin [Mass ratio] 1.1 {ratio} Serum or plasma alkaline elle sphatase measurement (enzymatic activity/volume)Ordered By: Yamilex Gottlieb on 02-11-2022 ALP [Catalytic activity/Vol] 82 U/L 32-92 Serum or plasma anion gap de terminationOrdered By: Yamilex Gottlieb on 02-11-2022 Anion gap [Moles/Vol] 15.4 mmol/L 6.0-15.0 [facility] Serum or plasma aspartate am inotransferase measurement (enzymatic activity/volume)Ordered By: Yamilex Gottlieb on 02-11-2022 AST [Catalytic activity/Vol] 22 U/L 1042 Serum or plasma calcium destiny urement (mass/volume)Ordered By: Yamilex Gottlieb on 02-11-2022 Calcium [Mass/Vol] 9.7 mg/dL 8.2-10.2 [facility] Serum or plasma chloride donato surement (moles/volume)Ordered By: Yamilex Gottlieb on 02-11-2022 Chloride [Moles/Vol] 101 mmol/L 95-114 [facility] Serum or plasma glucose destiny urement (mass/volume)Ordered By: Yamilex Gottlieb on 02-11-2022 Glucose [Mass/Vol] 85 mg/dL 70-100 [facility] Comment on above: ADA recommended refe rence rangeRandom Glucose Reference Range is dependent on time and content of last meal. Glucose of more than 200 mg/dL in a nonstressed, ambulatory subject supports the diagnosis of Diabetes Mellitus. Serum or plasma high density lipoprotein (HDL) cholesterol measurementOrdered By: Yamilex Gottlieb on 02-11-2022 Cholesterol in HDL [Mass/Vol] 34 mg/dL - Comment on above: HDL CHOL ATP-III CLA SSIFICATION Cardiovascular RiskHDL > or equal to 60 mg/dL LOWHDL < 40 mg/dL HIGH Serum or plasma potassium me asurement (moles/volume)Ordered By: Yamilex Gottlieb on 02-11-2022 Potassium [Moles/Vol] 4.2 mmol/L 3.5-5.1 [facility] Serum or plasma sodium measu rement (moles/volume)Ordered By: Yamilex Gottlieb on 02-11-2022 Sodium [Moles/Vol] 138 mmol/L 136-146 [facility] Serum or plasma total biliru bin measurement (mass/volume)Ordered By: Yamilex Gottlieb on 02-11-2022 Bilirubin [Mass/Vol] 0.7 mg/dL 0.3-1.2 [facility] Serum or plasma total carbon dioxide measurement (moles/volume)Ordered By: Yamilex Gottlieb on 02-11-2022 CO2 [Moles/Vol] 25.8 mmol/L 22.0-30.0 [facility] Serum or plasma total choles terol/high density lipoprotein (HDL) cholesterol mass ratOrdered By: Yamilex Gottlieb on 02-11-2022 Cholesterol.total/Radha sterol in HDL [Mass ratio] 2.8 {ratio} <5.0 Serum or plasma urea nitroge n measurement (mass/volume)Ordered By: Yamilex Gottlieb on 02-11-2022 Urea nitrogen [Mass/Vol] 16 mg/dL 9- Triglyceride [Mass/volume] i n Serum or PlasmaOrdered By: Yamilex Gottlieb on 02-11-2022 Triglyceride [Mass/Vol] 140 mg/dL 35-149 [facility] Comment on above: TRIG ATP III [...] 20 mg/L (U) [Mass/Vol] 3.4 mg/dL 0.0-1.8 Urine microalbumin/creatinin e mass ratioOrdered By: Tondra Mapus on 02-11-2022 Albumin/Creatinine DL <= 20 mg/L (U) [Mass ratio] 68.0 mg/g 0.0-30.0 Comment on above: 30-300 mg/g indicate s an increased risk for diabetic nephropathy. Greater than 300 mg/g is consistent with clinical nephropathy. (Am. J. Kidney Disease 1995, 25:107) Follow-Upon 01-31-2022 Follow-Up [id number] Caden Wills 1960 M Date Provider Department Center 01/31/2022 SIMBA REYEZ [facility] Family History Problem Relation Age of Onset Coronary artery disease Father Family Status - Relation Status Age at Father Level of Service:50[address] [place] OFFICE/OUTPATIENT ESTABLISHED HIGH MDM 40-54 MIN Reason for Visit and Comments: Coronary Artery Disease [187] Normal [facility] BNPon 12-31-2021 Natriuretic peptide B (Bld) [Mass/Vol] 229.0 pg/mL Normal <=900.0 [facility] Comment on above: Performed By: #### B BOG CUTTER #### [facility] [address] [place] [address] Dr. Jose Rojas CBC AUTO DIFFon 12-31-2021 BASO # 0.1 103/ul Normal 0.0-0.1 [facility] Comment on above: Performed By: #### D ATCBC #### [facility] [address] [address] [address] Jose Rojas Basophils/100 WBC (Bld) 0.5 % Normal 0.2-2.0 [facility] Comment on above: Performed By: #### D ATCBC #### [facility] [address] [address] [address] Jose Rojas EO # 0.1 103/ul Normal 0.0-0.7 [facility] Comment on above: Performed By: #### D ATCBC #### [facility] [address] [place] [address] Dr. Jose Rojas Eosinophils/100 WBC (Bld) 1.0 % Normal 0.9-7.0 [facility] Comment on above: Performed By: #### D ATCBC #### [facility] [address] [place] [address] Dr. Jose Rojas Erythrocyte distribution width (RBC) [Ratio] 15.1 % Critically high 11.0-15.0 [facility] Comment on above: Performed By: #### D ATCBC #### [facility] [address] [place] [address] Dr. Jose Rojas Hematocrit (Bld) [Volume fraction] 49.2 % Normal 42.0-54.0 [facility] Comment on above: Performed By: #### D ATCBC #### [facility] [address] [place] [address] Dr. Jose Rojas Hemoglobin (Bld) [Mass/Vol] 16.1 g/dL Normal 14.0-18.0 [facility] Comment on above: Performed By: #### D ATCBC #### [facility] [address] [place] [address] Dr. Jose Rojas IG # 0.07 10e3/ul Critically high 0.00-0.03 [facility] Comment on above: Performed By: #### D ATCBC #### [facility] [address] [place] [address] Dr. Jose Rojas IG % 0.7 % Critically high 0.0-0.[address] [facility] Comment on above: Performed By: #### D ATCBC #### [facility] [address] [place] [address] Dr. Jose Rojas LYMPH # 2.1 103/ul Normal 1.2-3.8 [facility] Comment on above: Performed By: #### D ATCBC #### [facility] [address] [place] [address] Dr. Jose Rojas Lymphocytes/100 WBC (Bld) 22.2 % Normal 20.5-60.0 [facility] Comment on above: Performed By: #### D ATCBC #### [facility] [address] [place] [address] Dr. Jose Rojas MANUAL DIFF REQ NO Normal [facility] Comment on above: Performed By: #### D ATCBC #### [facility] [address] [place] [address] Dr. Jose Rojas MCH (RBC) [Entitic mass] 28.0 pg Normal 25.9-34.0 [facility] Comment on above: Performed By: #### D ATCBC #### [facility] [address] [place] [address] Dr. Jose Rojas MCHC (RBC) [Mass/Vol] 32.7 g/dL Normal 29.9-35.2 [facility] Comment on above: Performed By: #### D ATCBC #### [facility] [address] [place] [address] Dr. Jose Rojas MCV (RBC) [Entitic vol] 85.6 fL Normal 80.0-94.0 [facility] Comment on above: Performed By: #### D ATCBC #### [facility] [address] [place] [address] Dr. Jose Rojas MONO # 1.0 103/ul Critically high 0.3-0.8 [facility] Comment on above: Performed By: #### D ATCBC #### [facility] [address] [place] [address] Dr. Jose Rojas Monocytes/100 WBC (Bld) 10.2 % Normal 1.7-12.0 [facility] Comment on above: Performed By: #### D ATCBC #### [facility] [address] [place] [address] Dr. Jose Rojas NEUT # 6.3 103/ul Normal 1.4-6.5 [facility] Comment on above: Performed By: #### D ATCBC #### [facility] [address] [place] [address] Dr. Jose Rojas Neutrophils/100 WBC (Bld) 65.4 % Normal 43.0-75.0 [facility] Comment on above: Performed By: #### D ATCBC #### [facility] [address] [place] [address] Dr. Jose Rojas Platelet mean volume (Bld) [Entitic vol] 9.4 fL Critically low 9.5-13.5 [facility] Comment on above: Performed By: #### D ATCBC #### [facility] [address] [place] [address] Dr. Jose Rojas PLT 353 103/ul Normal 150-450 [facility] Comment on above: Performed By: #### D ATCBC #### [facility] [address] [place] [address] Dr. Jose Rojas RBC 5.75 106/ul Normal 4.70-6.10 [facility] Comment on above: Performed By: #### D ATCBC #### [facility] [address] [place] [address] Dr. Jose Rojas WBC 9.6 103/ul Normal 4.0-11.0 [facility] Comment on above: Performed By: #### D ATCBC #### [facility] [address] [place] [address] Dr. Jose Rojas Covid-19 PCR ([facility])on 12-16 SARS-CoV-2 (COVID-19) RNA PRASHANT+probe Ql (Unsp spec) Not detected Normal NOT DETECTED [facility] Comment on above: Result Comment: When diagnostic [...] for this test is supported by the Medical Apparatus Model [employer] of Health and Human Service's declaration that [...] used). Performed By: #### C VDTBH #### [facility] [address] [place] [address] Dr. Jose Rojas PROF CHEM 8 (BAS METB)on Anion gap [Moles/Vol] 14.0 mmol/L Normal [facility] Comment on above: Performed By: #### H STROPN, BMP #### [facility] [address] [place] [address] Dr. Jose Rojas Calcium [Mass/Vol] 9.5 mg/dL Normal 8.5-10.1 [facility] Comment on above: Performed By: #### H STROPN, BMP #### [facility] [address] [place] [address] Dr. Jose Rojas Chloride [Moles/Vol] 100 mmol/L Normal 98-107 [facility] Comment on above: Performed By: #### H STROPN, BMP #### [facility] [address] [place] [address] Dr. Jose Rojas CO2 [Moles/Vol] 26.9 mmol/L Normal 21.0-32.0 [facility] Comment on above: Performed By: #### H STROPN, BMP #### [facility] [address] [place] [address] Dr. Jose Rojas Creatinine [Mass/Vol] 1.06 mg/dL Normal 0.70-1.30 [facility] Comment on above: Performed By: #### H STROPN, BMP #### [facility] [address] [place] [address] Dr. Jose Rojas EGFR-AF FILIPINO >60 Normal >=60 [facility] Comment on above: Performed By: #### H STROPN, BMP #### [facility] [address] [place] [address] Dr. Jose Rojas EGFR-NON AF FILIPINO >60 Normal >=60 [facility] Comment on above: Performed By: #### H STROPN, BMP #### [facility] [address] [address] [address] Jose Rojas Glucose [Mass/Vol] 152 mg/dL Critically high 74-106 [facility] Comment on above: Performed By: #### H STROPN, BMP #### [facility] [address] [address] [address] Jose Rojas Potassium [Moles/Vol] 3.9 mmol/L Normal 3.5-5.1 [facility] Comment on above: Performed By: #### H STROPN, BMP #### [facility] [address] [address] [address] Jose Rojas Sodium [Moles/Vol] 137 mmol/L Normal 136-145 [facility] Comment on above: Performed By: #### H STROPN, BMP #### [facility] [address] [address] [address] Jose Rojas Urea nitrogen [Mass/Vol] 19.0 mg/dL Critically high 7.0-18.0 [facility] Comment on above: Performed By: #### H STROPN, BMP #### [facility] [address] [address] [address] Jose Rojas Urea nitrogen/Creatinine [Mass ratio] 17.9 mg/mg Normal [facility] Comment on above: Performed By: #### H STROPN, BMP #### [facility] [address] [address] [address] Jose Rojas TROPONIN, HIGH SENSITIVITYon 12-31-2021 HSTROP 6144.5 pg/mL Critically high 4.0-76.1 [facility] Comment on above: Result Comment: CUT- OFF POINTS HAVE BEEN ESTABLISHED BASED ON THE FOURTH UNIVERSAL DEFINITIONS OF MYOCARDIAL INFARCTION. THE UPPER REFERENCE LIMIT (URL) OF TROPONIN, DEFINED THE 99TH PERCENTILE OF cTnI DISTRIBUTION IN A REFERENCE POPULATION, HAS BEEN CONFIRMED THE DECISION THRESHOLD FOR KS DIAGNOSIS. Performed By: #### H STROPN #### [facility] [address] [address] [address] Jose Rojas HSTROP 142.5 pg/mL Critically high 4.0-76.1 [facility] Comment on above: Result Comment: CUT- OFF POINTS HAVE BEEN ESTABLISHED BASED ON THE FOURTH UNIVERSAL DEFINITIONS OF MYOCARDIAL INFARCTION. THE UPPER REFERENCE LIMIT (URL) OF TROPONIN, DEFINED THE 99TH PERCENTILE OF cTnI DISTRIBUTION IN A REFERENCE POPULATION, HAS BEEN CONFIRMED THE DECISION THRESHOLD FOR KS DIAGNOSIS. Performed By: #### H TOMMY, [facility] #### [facility] [address] [address] [address] Jose Rojas XR CHEST 1 Von [...] by: STORM CONDE Date: 2021-12-31 13:54 Normal [facility] XR LSPINE 2_3 VIEWSon 2021 XR LSPINE [...] by: HEAVENLY LOUIS Date: 2021-10-31 08:51 Normal [facility] A1C HEMOGLOBINon 10-21-2021 HbA1c (Bld) [Mass fraction] 7.5 % [employer] Other Glucose - FINGER STICKon Glucose [Mass/Vol] 107 mg/dL [employer] Other HbA1c (Bld) [Mass fraction]o n 10-21-2021 A1C HEMOGLOBIN [employer] Other Urinalysis - AUTOMATEDon Appearance (U) cloudy [employer] Other Bilirubin Ql (U) Negative [employer] Other Color (U) yellow [employer] Other Glucose Ql (U) 500 [employer] Other Hemoglobin Ql (U) moderate [employer] Other Ketones Ql (U) Negative [employer] Other Leukocyte esterase Test strip Ql (U) moderate [employer] Other Nitrite Ql (U) Positive [employer] Other pH (U) 6.0 [pH] [employer] Other Protein Ql (U) trace [employer] Other Specific gravity (U) [Rel density] 1.025 [employer] Other Urobilinogen (U) [Mass/Vol] 0.2 mg/dL [employer] Other Urinalysis - AUTOMATED No rt [employer] Other Urine Cultureon 08-11-2021 Bacteria identified Cx Nom (U) [employer] Other A1C HEMOGLOBINon 06-29-2021 HbA1c (Bld) [Mass fraction] 7.4 % [employer] Other Glucose - FINGER STICKon Glucose [Mass/Vol] 168 mg/dL [employer] Other HbA1c (Bld) [Mass fraction]o n 06-29-2021 A1C HEMOGLOBIN [employer] Other A1C HEMOGLOBINon 03-24-2021 HbA1c (Bld) [Mass fraction] 6.6 % [facility] [employer] Other Glucose - FINGER STICKon Glucose [Mass/Vol] 171 mg/dL [facility] [employer] Other HbA1c (Bld) [Mass fraction]o n 03-24-2021 A1C HEMOGLOBIN [facility] [employer] Other Vital Signs Date Time Vital Sign Value Performing Clinician Facility 04-19-2023 15:30-0500 Body height 177.8 cm Fahad Ball Other 04-19-2023 15:30-0500 Body mass index (BMI) [Ratio] 39.91 kg/m2 Fahad Ball Other [facility] [employer] Other 04-19-2023 15:30-0500 Body weight 126.19 kg Fahad Ball Other [facility] [employer] Other 04-19-2023 15:30-0500 Body weight 126.18 kg DO Fahad Ball Work Phone: 04-19-2023 15:30-0500 Diastolic blood pressure 77 mm[Hg] Fahad Ball Other 04-19-2023 15:30-0500 Respiratory rate 16 /min Fahad Ball Other [facility] [employer] Other 04-19-2023 15:30-0500 Systolic blood pressure 125 mm[Hg] Fahad Ball Other 03-22-2023 11:46-0500 Blood Pressure Location Antonia HACKTET [facility] 03-22-2023 11:46-0500 Diastolic blood pressure 71 mm[Hg] Antonia HACKETT [facility] 03-22-2023 11:46-0500 Heart rate 69 /min Atnonia HACKETT [facility] 03-22-2023 11:46-0500 Systolic blood pressure 111 mm[Hg] Antonia HACKETT [facility] 03-08-2023 16:15-0500 Body height 177.8 cm Tondra Mapus Other 03-08-2023 16:15-0500 Body mass index (BMI) [Ratio] 39.65 kg/m2 Tondra Mapus Other [employer] Other 03-08-2023 16:15-0500 Body weight 125.38 kg Tondra Mapus Other [employer] Other 03-08-2023 16:15-0500 Body weight 125.37 kg DO Fahad Ball Work Phone: 03-08-2023 16:15-0500 Diastolic blood pressure 72 mm[Hg] Tondra Mapus Other 03-08-2023 16:15-0500 Respiratory rate 18 /min Tondra Mapus Other [employer] Other 03-08-2023 16:15-0500 SaO2% (BldA) [Mass fraction] 96 % Tondra Mapus Other [employer] Other 03-08-2023 16:15-0500 Systolic blood pressure 127 mm[Hg] Tondra Mapus Other 01-20-2023 14:45-0400 Body height 177.8 cm Fahad Ball Other [employer] Other 01-20-2023 14:45-0400 Body mass index (BMI) [Ratio] 39.17 kg/m2 Fahad Ball Other [employer] Other 01-20-2023 14:45-0400 Body weight 123.83 kg Fahad Ball Other [employer] Other 01-20-2023 14:45-0400 Diastolic blood pressure 74 mm[Hg] Fahad Ball Other [employer] Other 01-20-2023 14:45-0400 Respiratory rate 18 /min Fahad Ball Other [employer] Other 01-20-2023 14:45-0400 Systolic blood pressure 118 mm[Hg] Fahad Ball Other [employer] Other 11-24-2022 15:30-0400 Body height 177.8 cm Tondra Mapus Other [employer] Other 11-24-2022 15:30-0400 Body mass index (BMI) [Ratio] 39.22 kg/m2 Tondra Mapus Other [employer] Other 11-24-2022 15:30-0400 Body weight 124.01 kg Tondra Mapus Other [employer] Other 11-24-2022 15:30-0400 Diastolic blood pressure 65 mm[Hg] Tondra Mapus Other [employer] Other 11-24-2022 15:30-0400 Respiratory rate 18 /min Tondra Mapus Other [employer] Other 11-24-2022 15:30-0400 SaO2% (BldA) [Mass fraction] 95 % Tondra Mapus Other [facility] Other 11-24-2022 15:30-0400 Systolic blood pressure 109 mm[Hg] Tondra Mapus Other [facility] Other 10-17-2022 15:30-0400 Body height 177.8 cm Fahad Ball Other [facility] Other 10-17-2022 15:30-0400 Body mass index (BMI) [Ratio] 39.6 kg/m2 Fahad Ball Other [facility] Other 10-17-2022 15:30-0400 Body weight 125.19 kg Fahad Ball Other [facility] Other 10-17-2022 15:30-0400 Diastolic blood pressure 66 mm[Hg] Fahad Ball Other [facility] Other 10-17-2022 15:30-0400 Respiratory rate 16 /min Fahad Ball Other [facility] Other 10-17-2022 15:30-0400 Systolic blood pressure 108 mm[Hg] Fahad Ball Other [facility] Other 08-22-2022 16:30-0400 Body height 177.8 cm Tondra Mapus Other [facility] Other 08-22-2022 16:30-0400 Body mass index (BMI) [Ratio] 39.93 kg/m2 Tondra Mapus Other [facility] Other 08-22-2022 16:30-0400 Body weight 126.24 kg Tondra Mapus Other [facility] Other 08-22-2022 16:30-0400 Diastolic blood pressure 70 mm[Hg] Tondra Mapus Other [facility] Other 08-22-2022 16:30-0400 Respiratory rate 18 /min Tondra Mapus Other [facility] Other 08-22-2022 16:30-0400 SaO2% (BldA) [Mass fraction] 94 % Tondra Mapus Other [facility] Other 08-22-2022 16:30-0400 Systolic blood pressure 111 mm[Hg] Tondra Mapus Other [facility] Other 07-18-2022 16:30-0400 Body height 177.8 cm Fahad Ball Other [facility] Other 07-18-2022 16:30-0400 Body mass index (BMI) [Ratio] 40.2 kg/m2 Fahad Ball Other [facility] Other 07-18-2022 16:30-0400 Body weight 127.1 kg Fahad Ball Other [facility] Other 07-18-2022 16:30-0400 Diastolic blood pressure 71 mm[Hg] Fahad Ball Other [facility] Other 07-18-2022 16:30-0400 Respiratory rate 16 /min Fahad Ball Other [facility] Other 07-18-2022 16:30-0400 Systolic blood pressure 117 mm[Hg] Fahad Ball Other [facility] Other 05-19-2022 16:15-0500 Body height 177.8 cm Tondra Mapus Other [facility] Other 05-19-2022 16:15-0500 Body mass index (BMI) [Ratio] 40.79 kg/m2 Tondra Mapus Other [facility] Other 05-19-2022 16:15-0500 Body weight 128.96 kg Tondra Mapus Other [facility] Other 05-19-2022 16:15-0500 Diastolic blood pressure 72 mm[Hg] Tondra Mapus Other [facility] Other 05-19-2022 16:15-0500 Respiratory rate 18 /min Tondra Mapus Other [facility] Other 05-19-2022 16:15-0500 SaO2% (BldA) [Mass fraction] 93 % Tondra Mapus Other [facility] Other 05-19-2022 16:15-0500 Systolic blood pressure 131 mm[Hg] Tondra Mapus Other [facility] Other 05-04-2022 16:30-0500 Body height 177.8 cm Fahad Ball Other [facility] Other 05-04-2022 16:30-0500 Body mass index (BMI) [Ratio] 41.23 kg/m2 Fahad Ball Other [facility] Other 05-04-2022 16:30-0500 Body weight 130.36 kg Fahad Ball Other [facility] Other 05-04-2022 16:30-0500 Diastolic blood pressure 82 mm[Hg] Fahad Ball Other [facility] Other 05-04-2022 16:30-0500 Respiratory rate 20 /min Fahad Ball Other [facility] Other 05-04-2022 16:30-0500 Systolic blood pressure 118 mm[Hg] Fahad Ball Other [facility] Other 10-21-2021 14:45-0400 Body height 177.8 cm Tondra Mapus Other [facility] Other 10-21-2021 14:45-0400 Body mass index (BMI) [Ratio] 40.31 kg/m2 Tondra Mapus Other [facility] Other 10-21-2021 14:45-0400 Body weight 127.46 kg Tondra Mapus Other [facility] Other 10-21-2021 14:45-0400 Diastolic blood pressure 70 mm[Hg] Tondra Mapus Other [facility] Other 10-21-2021 14:45-0400 Respiratory rate 20 /min Tondra Mapus Other [facility] Other 10-21-2021 14:45-0400 SaO2% (BldA) [Mass fraction] 96 % Tondra Mapus Other [facility] Other 10-21-2021 14:45-0400 Systolic blood pressure 110 mm[Hg] Tondra Mapus Other [facility] Other 08-11-2021 15:15-0400 Body height 177.8 cm Celestina Greene Other [facility] Other 08-11-2021 15:15-0400 Body mass index (BMI) [Ratio] 38.74 kg/m2 Celestina Talbotmond Other [facility] Other 08-11-2021 15:15-0400 Body temperature 98.2 [degF] Celestina Greene Other [facility] Other 08-11-2021 15:15-0400 Body weight 122.47 kg Celestina Talbotmond Other [facility] Other 08-11-2021 15:15-0400 Diastolic blood pressure 72 mm[Hg] Celestina Ramona Other [facility] Other 08-11-2021 15:15-0400 Respiratory rate 18 /min Celestina Talbotmond Other [facility] Other 08-11-2021 15:15-0400 SaO2% (BldA) [Mass fraction] 99 % Celestina Talbotmond Other [facility] Other 08-11-2021 15:15-0400 Systolic blood pressure 123 mm[Hg] Celestina Ramona Other [facility] Other 06-29-2021 15:30-0400 Body height 177.8 cm Yamilex Gottlieb Other [facility] Other 06-29-2021 15:30-0400 Body mass index (BMI) [Ratio] 40.89 kg/m2 Tondra Mapus Other [facility] Other 06-29-2021 15:30-0400 Body weight 129.28 kg Tondra Mapus Other [facility] Other 06-29-2021 15:30-0400 Diastolic blood pressure 75 mm[Hg] Tondra Mapus Other [facility] Other 06-29-2021 15:30-0400 Respiratory rate 20 /min Tondra Mapus Other [facility] Other 06-29-2021 15:30-0400 SaO2% (BldA) [Mass fraction] 95 % Tondra Mapus Other [facility] Other 06-29-2021 15:30-0400 Systolic blood pressure 126 mm[Hg] Tondra Mapus Other [facility] Other 03-24-2021 16:15-0500 Body height 177.8 cm Tondra Mapus Other [facility] Other 03-24-2021 16:15-0500 Body mass index (BMI) [Ratio] 40.89 kg/m2 Tondra Mapus Other [facility] Other 03-24-2021 16:15-0500 Body weight 129.28 kg Tondra Mapus Other [facility] Other 03-24-2021 16:15-0500 Diastolic blood pressure 67 mm[Hg] Tondra Mapus Other [facility] Other 03-24-2021 16:15-0500 Respiratory rate 20 /min Tondra Mapus Other [facility] Other 03-24-2021 16:15-0500 SaO2% (BldA) [Mass fraction] 97 % Tondra Mapus Other [facility] Other 03-24-2021 16:15-0500 Systolic blood pressure 115 mm[Hg] Tondra Mapus Other [facility] Other 01-06-2021 15:00-0400 Body height 177.8 cm Tondra Mapus Other [facility] Other 01-06-2021 15:00-0400 Body mass index (BMI) [Ratio] 39.81 kg/m2 Tondra Mapus Other [facility] Other 01-06-2021 15:00-0400 Body weight 125.87 kg Tondra Mapus Other [facility] Other Encounters Encounter Date Encounter Type Care Provider Facility Start: 06-14-2023 Telephone encounter Noy garcia RN Work Phone: Urology 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 Start: 05-03-2023 End: 05-04-2023 ambulatory ANTONIA HACKETT Facility:[facility] Start: 05-02-2023 End: 05-02-2023 ambulatory Yarelis Santacruz Other [facility] Other Start: 05-02-2023 Office outpatient visit 10 minutes [facility] Start: 05-02-2023 End: 05-02-2023 Patient encounter procedure DO Fahad Salinas Work Phone: [facility]- Start: 04-19-2023 End: 04-19-2023 ambulatory Fahad Salinas Other [facility] Other Start: 04-19-2023 Office outpatient visit 25 minutes Fahad Salinas [facility] Start: 04-19-2023 End: 04-19-2023 Patient encounter procedure DO Fahad Salinas Work Phone: [facility] Work Phone: Start: 03-30-2023 End: 03-30-2023 ambulatory Yarelis Santacruz Other [facility] Other Start: 03-30-2023 Telephone encounter Yarelis Begum [facility] [employer] Start: 03-28-2023 End: 03-28-2023 ambulatory Yarelis Santacruz Other [facility] Other Start: 03-28-2023 Office outpatient visit 15 minutes Yarelis Santacruz [facility] Start: 03-22-2023 End: 03-23-2023 ambulatory TONDRA K MAPUS Facility:[facility] Start: 03-22-2023 End: 03-22-2023 Patient encounter procedure Antonia HACKETT [facility] Start: 03-08-2023 End: 03-08-2023 Discharged Recurring DO Fahad Salinas Work Phone: [facility] Work Phone: Start: 03-08-2023 (DM) Diabetes Tondra Mapus [facility] Start: 03-08-2023 End: 03-09-2023 ambulatory DO Fahad Salinas Work Phone: [facility] Other Start: 03-08-2023 End: 03-08-2023 Patient encounter procedure DO Fahad Salinas Work Phone: [facility] Work Phone: Start: 02-22-2023 End: 02-22-2023 ambulatory Yarelis Santacruz Other [facility] Other Start: 02-22-2023 Office outpatient visit 15 minutes Yarelis Santacruz [facility] Start: 01-20-2023 End: 01-20-2023 ambulatory Fahad Salinas Other [facility] Other Start: 01-20-2023 Office outpatient visit 15 minutes Fahad Salinas [facility] Start: 12-09-2022 End: 12-09-2022 ambulatory Tondra Mapus Other [facility] Other Start: 12-09-2022 Telephone encounter Tondra Mapus [facility] Start: 12-06-2022 End: 12-06-2022 ambulatory [facility] Start: 11-25-2022 ambulatory TONDRA MAPUS Facility:[facility] Start: 11-24-2022 (DM) Diabetes Tondra Mapus [facility] Start: 11-24-2022 End: 11-24-2022 ambulatory Tondra Mapus Other [facility] Other Start: 11-24-2022 Telephone encounter Tondra Mapus [facility] Start: 10-17-2022 End: 10-17-2022 ambulatory Fahad Salinas Other [facility] Other Start: 10-17-2022 Encounter for genera l adult medical examination without abnormal findings Fahad Salinas [facility] Start: 10-17-2022 Periodic preventive med est patient 40-64yrs Fahad Salinas [facility] Start: 09-05-[address] FAHAD SALINAS Facili ty:[facility] Start: 08-24-2022 End: 08-25-2022 ambulatory DAMIAN ONTIVEROS Facility:[facility] Start: 08-22-2022 (DM) Diabetes Tondra Mapus [facility] Start: 08-22-2022 End: 08-22-2022 ambulatory Tondra Mapus Other [facility] Other Start: 07-18-2022 End: 07-18-2022 ambulatory Fahad Salinas Other [facility] Other Start: 07-18-2022 Office outpatient visit 15 minutes Fahad Salinas [facility] Start: 05-23-2022 End: 05-23-2022 ambulatory [facility] Start: 05-19-2022 (DM) Diabetes Tondra Mapus [facility] Start: 05-19-2022 End: 05-19-2022 ambulatory Tondra Mapus Other [facility] Other Start: 05-04-2022 End: 05-04-2022 ambulatory Fahad Salinas Other [facility] Other Start: 05-04-2022 Office outpatient visit 25 minutes Fahad Salinas [facility] Start: 04-19-2022 End: 05-04-[address] FAHAD SALINAS Facility:[facility] Start: 04-05-2022 End: 04-06-[address] FAHAD SALINAS Facility:[facility] Start: 04-05-2022 End: 04-05-2022 ambulatory [facility] Start: 03-30-2022 End: 03-31-[address] FAHAD SALINAS Facility:[facility] Start: 02-24-2022 End: 02-25-[address] FAHAD SALINAS Facility:[facility] Start: 02-17-2022 End: 04-19-[address] FAHAD SALINAS Facility:[facility] Start: 02-16-2022 End: 02-17-[address] FAHAD SALINAS Facility:[facility] Start: 02-14-2022 End: 02-14-2022 ambulatory Tondra Mapus Other [facility] Other Start: 02-14-2022 Telephone encounter Tondra Mapus [facility] Start: 02-11-2022 End: 02-11-2022 ambulatory DO Fahad Salinas Work Phone: [facility] Work Phone: Start: 02-11-2022 End: 02-11-2022 Patient encounter procedure DO Fahad Salinas Work Phone: [facility] [place] Start: 02-10-2022 End: 02-11-[address] SIMBA CURRAN Facility:[facility] Start: 02-01-2022 Registered Recurring DO Janeneiris yevgeniy Yola Work Phone: [facility] Start: 02-01-2022 End: 02-01-2022 ambulatory Tondra Mapus Other [facility] Other Start: 02-01-2022 Telephone encounter Tondra Mapus [facility] Start: 01-31-2022 End: 01-31-2022 ambulatory SIMBA CURRAN [facility] Start: 01-25-2022 End: 01-26-2022 ambulatory COORDINATOR RESEARCH [facility] Start: 01-07-[address] FAHAD SALINAS Facili ty:[facility] Start: 12-31-2021 End: 12-31-2021 ambulatory DARNELL OVALLE Facility:[facility] Start: 12-16-2021 ambulatory DAMIAN ONTIVEROS Faci lity:[facility] Start: 11-15-2021 End: 01-01-[address] FAHAD SALINAS Facility:[facility] Start: 10-29-2021 End: 10-30-[address] FAHAD SALINAS Facility:[facility] Start: 10-21-2021 (DM) Diabetes Tondra Mapus [facility] Start: 10-21-2021 End: 10-21-2021 ambulatory Tondra Mapus Other [facility] Other Start: 09-09-2021 End: 09-10-2021 ambulatory DAMIAN ONTIVEROS Facility:[facility] Start: 08-11-2021 End: 08-11-2021 ambulatory Celestina Greene Other [facility] Other Start: 08-11-2021 Office outpatient visit 25 minutes Celestina Ramona [facility] Start: 06-29-2021 (DM) Diabetes Tondra Mapus [facility] Start: 06-29-2021 End: 06-29-2021 ambulatory Tondra Mapus Other [facility] Other Start: 05-12-2021 End: 05-12-2021 ambulatory Tondra Mapus Other [facility] Other Start: 05-12-2021 Telephone encounter Tondra Mapus [facility] Start: 05-04-2021 End: 05-04-2021 ambulatory Tondra Mapus Other [facility] Other Start: 05-04-2021 Telephone encounter Tondra Mapus [facility] Start: 03-24-2021 (DM) Diabetes Tondra Mapus [facility] Start: 03-24-2021 End: 03-24-2021 ambulatory Tondra Mapus Other [facility] Other Start: 01-06-2021 Nursing evaluation o f patient and report Tondra Mapus [facility] Procedures Date Procedure Procedure Detail Performing Clinician Start: 05-03-2023 Urnls dip stick/tabl et rgnt auto w/o microscopy Bulk Order Provider Start: 12-06-2022 Follow-up visit Follow-up ROBYN NEGRON Start: 12-16-2021 Coronary artery bypa ss grafts x 5 Antonia HACKETT Coronary artery bypa ss graft Fahad Salinas Other Plan of Treatment Date Care Activity Detail Author Start: 04-17-2023 Depression Assessment Depression Ass essment [facility] Start: 01-01-2023 Hepatitis B surface antibody level LDL Cholesterol [facility] Start: 12-16-2022 Covid-19 Vaccine () Covid-19 Vaccine () [facility] Start: 12-16-2022 Influenza vaccination Influenza Vacc ine (#1) [facility] Start: 07-04-2022 Hemoglobin A1c measurement HbA1C [facility] Start: 2022 RSV Vaccine (1 - 1-d ose 60+ series) RSV Vaccine (1 - 1-dose 60+ series) [facility] Start: 2017 Prostate specific an tigen measurement Prostate Cancer Screening Discussion [facility] Start: 01-11-2012 Shingrix Vaccine (1 of 2) Shingrix V accine (1 of 2) [facility] Start: 2007 Screening for malign ant neoplasm of colon [facility] Start: 1981 Urine microalbumin profile DTaP,Tdap,Td Vaccine (1 - Tdap) [facility] Start: 01-11-1980 Annual PCP Team [employer] Repairer tennille Disease Visit Annual PCP Team Chronic Disease Visit [facility] Start: 01-11-1980 Hepatitis C screening Hepatitis C Sc reening [facility] Start: 01-11-1980 HIV screening HIV Screening [facility] Start: 01-11-1972 Diabetic foot examination Diabetic F oot Exam [facility] Start: 01-11-1972 Glaucoma screening Dilated Retinal E xam [facility] Start: 01-11-1972 Hepatitis B screening Urine Al bumin:Creatinine Ratio [facility] Start: 01-11-1968 Pneumococcal vaccination Pneum ococcal Vaccine (1 of 2 - PCV) [facility] Start: 1962 Covid-19 Vaccine (#1) Covid-19 Vacci ne (#1) [facility] Immunizations Immunization Date Immunization Notes Care Provider Sam brenner 02-24-2022 COVID-19 Pfizer (bivalent) Fahad Salinas Other 03-23-2021 COVID-19 Vaccine Pfi zer - Documentation Purposes Only Fahad Salinas Other 08-03-2020 COVID-19 Vaccine Pfi zer - Documentation Purposes Only Fahad Salinas Other 07-13-2020 COVID-19 Vaccine Pfi zer - Documentation Purposes Only Fahad Salinas Other Payers Date Payer Category Payer Unknown [id number] 2015 [facility] Health [facility] [id number] 2015-Present [phone] [address] [address] [place] [address] HMO [id number] 1960 Unknown [id number] [id number] .2.593 1962 Unknown [id number] 2.16.840.1.415677.3.579 .2.593 1962 Unknown [id number] 2.16.840.1.242203.3.579 .2.593 1962 Unknown [id number] 2.16.840.1.320655.3.579 .2.593 1962 Unknown [id number] 2.16.840.1.906449.3.579 .2.593 1962 Unknown [id number] 2.16.840.1.964431.3.579 .2.593 1962 Unknown [id number] 2.16.840.1.580401.3.579 .2.593 1962 Unknown [id number] 2.16.840.1.707803.3.579 .2.593 1962 Unknown [id number] 2.16.840.1.106044.3.579 .2.593 1962 Unknown [id number] 2.16.840.1.659532.3.579 .2.593 1962 Unknown [id number] 2.16.840.1.714613.3.579 .2.593 1962 Unknown [id number] 2.16.840.1.193763.3.579 .2.593 1962 Unknown [id number] 2.16.840.1.516371.3.579 .2.593 1962 Unknown [id number] 2.16.840.1.019038.3.579 .2.593 1962 Unknown [id number] 2.16.840.1.055693.3.579 .2.593 1959 Self-pay [id number] 1959 Unknown [id number] 2.16.840.1.902407.19 Unknown [id number] 2.16.840.1.740405.3.579 .2.593 Unknown [id number] 2.16.840.1.140198.3.579 .2.531 Social History Date Type Detail Facility Unknown if ever smoked [facility] Other Start: 05-03-2023 Sex [address] F [facility] Start: 1960 Sex Assigned At Male F [facility] Start: 03-22-2023 End: 05-03-2023 Tobacco smoking status Never smoked tobacco (finding) [facility] Start: 05-03-2023 Tobacco use and exposure Smokeless tobacco non-user [facility] Start: 05-03-2023 History of Social function [facility] Start: 1960 Sex Assigned At Not on file [facility] Medical Equipment Procedure Code Equipment Code Equipment Original Text Equi pment Identifier Dates Functional Status Date Assessment Result Facility 03-22-2023 Functional Status N/A [facility] Clinical Notes 01-06-2021 to 06-14-2023 Telephone Encounter - Noy Saavedra RN - 06/14/2023 10:03 AM ESTTelephone Encounter - Noy Saavedra RN - 06/14/2023 9:44 AM EST Note Date & Type Note Facility 06-14-2023 Miscellaneous Notes error documented in this encounter [facility] 06-14-2023 Miscellaneous Notes Called Caden Wills and LVM to confirm surgery date of 07/[address] Duran. Discussed pre op testing on 07/26 in [place], or he could make two trips. Asked him to confirm Asked patient to confirm receipt, and voice any questions or concerns. Number provided. Noy Saavedra RN documented in this encounter [facility] 05-03-2023 Note HNO ID: [id number] Author: JIAN DURAN MD Service: ? Author Type: Physician Type: Progress Notes Filed: 05/03/2023 14:28 Note Text: [facility] NEW PATIENT HISTORY AND PHYSICAL EXAM PATIENT INFO: Caden Wills 63 year old REFERRING M.D.: Antonia Hackett MD [address] [place] [id number] This consult was requested by Dr. Hackett for an opinion regarding buried penis and erectile dysfunction, and my final recommendations will be communicated to the requesting health care provider by way of the shared medical record for internal providers or letter via the [employer] for external providers. 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 , interested in future sexual life. MEDICATIONS: [...] of the sc (more content not included)... [facility] 05-03-2023 Note Patient Outreach (UR OLMN) CADEN WILLS ([id number]) 1960 M Date Time Provider Department 05/03/23 JIAN DURAN During your visit today, we recorded the following information about you: Allergies As of Date: 05/03/2023 (No Known Allergies) Date Reviewed: 05/03/2023 Reviewed by: Claudia Burt OCCA - Fully Assessed Visit Diagnosis:Screening for genitourinary condition [Z13.89] Order(s):URINALYSIS, REFLEX MICROSCOPIC [LSY9000] Order #: [id number]. #:[id number] Prescriptions as of 05/08/2023 - metFORMIN ER [...] tablet by mouth every afternoon. - omega 3-csc-jru-fish oil (FISH OIL) 100-160-1,000 mg cap Take 1,000 mg by mouth. - bumetanide (BUMEX ORAL) Take by mouth. 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 Post operative AF Amiodarone and Eliquis d/c [...] Referred to [facility] for evaluation and treatment [facility] Other 12-12-2023 Evaluation note* Encounter Date Diagnosis Assessment Notes Treatment Notes Treatment Clinical Notes Mar, Subungual hematoma of finger of right hand, initial encounter (ICD-10 - S60.10XA) Patient instructed on washing with soap and applying ointment to help soften scab area. [facility] Other 12-06-2023 Hospital Discharge instructions Patient Education [...] Follow these instructions at home: Medicines Take cwos-xni-gkffieq and prescription medicines only as told by [...] provider. Document Revised: 06/30/2021 Document Reviewed: 06/30/2021 [employer] Patient Education 2022 [employer]. Follow Up Care 11/25/2022 08:22:24 With:ROXANN BARR, Antonia Sharma, URL Address: [address] [place], [place] [address]- When: Unknown [facility] 11-22-2023 Evaluation note* Encounter Date Diagnosis [...] (hypertension) (ICD-10 - I10) On arb. 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 Keep covered while at work [facility] Other 10-06-2023 Evaluation note* Encounter Date Diagnosis [...] - E11.65) Increases risk of serious infection. [facility] Other 10-02-2023 NoteReviewed labs from 01/10/23 Pt is currently on lipitor 80 mg daily therefore will add zetia to regime for better Lipid management Repeat lipid level in 2-3 months. Robyn Negron BOG CUTTER Division of Cardiology, [facility]- [phone] Pager- [phone] Email- [email or web address] Evaluation note* Encounter Date Diagnosis Assessment Notes Treatment Notes Treatment Clinical Notes Nov, Type 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 with hyperglycemia (ICD-10 - E11.65) [facility] Other [id number] NoteRemains stableUnJ.W. [facility]08-22-2023 NoteresolvedUnJ.W. [facility] 12-06-2022 NoteHypertension is well controlled 102/63 Renal function stableUnJ.W. [facility]08-22-2023 NoteContinue statin and repeat LFT and lipid level.[facility] 12-06-2022 NoteCoronary artery disease is stable without concerning symptoms Continue GDMT- asa, lipitor and toprol continue risk factor modifications- heart healthy diet, regular exercise as tolerated and continue all medications.[facility] 12-06-2022 NoteNYHC II Continue GDMT- ASA, lipitor, farxiga, entresto, aldactone and toprol Diuretic therapy- farxiga and he remains euvolemic currently Monitor daily weights, I&O, fluid restriction 1.5-2L/day, renal function and electrolytes-[facility]08-22-2023 NoteUTP CARDIOLOGY PROGRESS NOTE HPI: Caden Wills is a 62 y.o. male here for Follow-up (6 month follow up ) HPI Pleasant 62-year-old man with prior history of coronary disease status post percutaneous intervention to chronically occluded LAD in 2007. Additional history includes diabetes, hypertension and hyperlipidemia. He was admitted in December 2021 to [facility] with chest pain and diagnosed with NSTEMI. [...] He was admitted in December 2021 to [facility] with chest pain and diagnosed with NSTEMI. [...] facility-administered medications on file (more content not included)...[facility]08-14-2023 Reason for visit NarrativeTKM - REFERRAL UROLOGY - NEED TO INFORM PATIENT 11/28/22[place] [employer] Other 08-10-2023 Evaluation note* Encounter Date Diagnosis [...] (hypertension) (ICD-10 - I10) On arb. 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 No bleeding complications Oct, Type 2 diabetes [...] (ICD-10 - Z12.5) Yearly LADAN and PSA [facility] Other 05-08-2023 Evaluation note* Encounter Date Diagnosis Assessment Notes Treatment Notes Treatment Clinical Notes August, Type 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 with hyperglycemia (ICD-10 - E11.65) 1. Controlled, a Type 2 diabetes with A1c of 6.5% 2. Blood glucose levels according to [employer] 2 cgm download 08/09/22-08/22/22: Avg glucose 157. [...] (hypertension) (ICD-10 - I10) On arb. August, shelter current use of insulin (ICD-10 - Z79.4) [...] last visit, continue with weight loss efforts [facility] Other 04-03-2023 Evaluation note* Encounter Date Diagnosis Assessment Notes Treatment Notes Treatment Clinical Notes Jul, ASHD (arteriosclerot ic heart disease) (ICD-10 - I25.10) This patient is stable without activity related CP, dyspnea or lightheadedness. They are instructed to continue exercise and AHA diet plan. Instructed to continue exercise 2-3x weekly. After completiong CR plans on continuing at [facility] Jul, Primary hypertension (ICD-10 - [...] (coronary artery bypass graft) (ICD-10 - Z95.1) [facility] Other 02-06-2023 NoteUT Cardiology - [facility] Subjective Caden Wills is a 62 y.o. year old male patient being seen for follow up event monitor. He would like to return to work. Denies chest pain and SOB. He has completed cardiac rehab, and sometimes goes to the [facility] to exercise. Patient Active Problem List Diagnosis Chest pain NSTEMI (non-ST elevated myocardial infarction) ([facility]/HCC) Obesity Diabetes mellitus, type II, insulin dependent (CMS/HCC) Respiratory insufficiency Hypomagnesemia Hypertension Hyperlipidemia Postoperative atrial fibrillation (CMS/HCC) Coronary artery disease involving grindstone coronary artery of grindstone heart without angina pectoris Chronic systolic heart [...] He was admitted in December 2021 to [facility] with chest pain and diagnosed with NSTEMI. [...] tablet, Rfl: 3 do (more content not included)...[facility]02-02-2023 Evaluation note* Encounter Date Diagnosis Assessment Notes Treatment Notes Treatment Clinical Notes May, Type 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 with hyperglycemia (ICD-10 - E11.65) 1. Controlled, a Type 2 diabetes with A1c of 6.9% 2. Blood glucose levels according to [employer] cgm download 05/06/22-05/19/22: Avg glucose 189. >250- [...] carbs while at work. 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 May, shelter current use of insulin (ICD-10 - Z79.4) May, Mixed hyperlipidemia (ICD-10 - E78.2) 01/2022 LDL 34 on statin- at target May, BMI 40.0-44.9, adult (ICD-10 - Z68.41) May, Vitamin B 12 deficiency (ICD-10 - E53.8) 02/05 vit b 12 227 at target May, Albuminuria (ICD-10 - R80.9) 02/05 m/a cr ratio 68. Reviewed importance of glucose/bp control to prevent further nephropathy [facility] Other 01-18-2023 Evaluation note* Encounter Date Diagnosis [...] may warrant EGD to r/o H. Pylori [facility] Other [id number] NoteCardiology Clinic Note Subjective Caden Wills is [...] Chest pain NSTEMI (non-ST elevated myocardial infarction) ([facility]) Obesity Diabetes mellitus, type II, insulin dependent ([facility]) Respiratory insufficiency Hypomagnesemia Hypertension Hyperlipidemia Postoperative atrial fibrillation ([facility]/HCC) Coronary artery disease involving grindstone coronary artery of grindstone heart without angina pectoris Chronic systolic heart failure ([facility]) History of coronary artery bypass graft Family [...] He was admitted in December 2021 to [facility] with chest pain and diagnosed with NSTEMI. [...] (100 mg) by m (more content not included)...[facility] 04-05-2022 NotePatient here for follow [...] light-headedness. All other systems reviewed and are negative.[facility] 02-25-2022 NotePROCEDURE: XR FOOT RT [...] Electronically authenticated by: HEAVENLY LOUIS Date: 2022-02-25 06:39[facility]10-17-2022 NoteAddendum created 01/31/22 1618 by Shannon Hatch MD Intraprocedure Staff edited (Anesthesia)[facility] 01-31-2022 NoteSubjective Caden Wills is [...] atrial fibrillation (CMS/HCC) Coronary artery disease involving grindstone coronary artery of grindstone heart without angina pectoris Chronic systolic heart [...] He was admitted in December 2021 to [facility] with chest pain and diagnosed with NSTEMI. [...] dilTIAZem CD (Cardizem CD) (more content not included)...[facility]07-07-2022 Evaluation note* Encounter Date Diagnosis Assessment Notes Treatment Notes Treatment Clinical Notes Oct, Type 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 with hyperglycemia (ICD-10 - E11.65) 1. Uncontrolled, a Type 2 diabetes with A1c of 7.5% 2. Blood glucose levels above target. According to [employer] 2 cgm download 10/08/21-10/21/21: Avg glucose 197. [...] (hypertension) (ICD-10 - I10) On jonathan. Oct, shelter current use of insulin (ICD-10 - Z79.4) Oct, Mixed hyperlipidemia (ICD-10 - E78.2) 11/2020 LDL 97.6 Triglycerides 347, on fenofibrate, Recommend moderate intensity statin f/u with pcp for further recommendation. Oct, BMI 40.0-44.9, adult (ICD-10 - Z68.41) 4 pound weight loss from last visit, continue with weight loss efforts Oct, Vitamin B 12 deficiency (ICD-10 - E53.8) [facility] Other 04-27-2022 Evaluation note* Encounter Date Diagnosis [...] days. Jul, Hematuria, unspecified (ICD-10 - R31.9) [facility] Other 03-15-2022 Evaluation note* Encounter Date Diagnosis Assessment Notes Treatment Notes Treatment Clinical Notes Jun, Type 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 with hyperglycemia (ICD-10 - E11.65) 1. Uncontrolled, a Type 2 diabetes with A1c of 7.4% 2. Blood glucose levels above target. According to [employer] 2 cgm download 06/16/21-06/29/21: Avg glucose 172. [...] (hypertension) (ICD-10 - I10) On jonathan. 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 Jun, BMI 40.0-44.9, adult (ICD-10 - Z68.41) see above [facility] Other 01-18-2022 Evaluation note* Encounter Date Diagnosis Assessment Notes Treatment Notes Treatment Clinical Notes Apr, Type 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 with hyperglycemia (ICD-10 - E11.65) [facility] Other 12-08-2021 Evaluation note* Encounter Date Diagnosis Assessment Notes Treatment Notes Treatment Clinical Notes Mar, Type 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 with hyperglycemia (ICD-10 - E11.65) 1. Controlled, a Type 2 diabetes with A1c of 6.6% 2. Blood glucose levels improved from last visit. According to [employer] 2 cgm download 03/11/21-03/24/21: Avg glucose 162. >250- 1%, >180-29%, 70-180-70%, <70-0%, <54-0%. CV 22.5%. Reviewed download with pt. readings above target from missed meal dose or late meal dose. Discussed with pt trial lyumjev which he could take 5 minutes before meal up to 20 minutes after meal. He is agreeable, reviewed this would take place of [employer]. He verbalizes understanding. Pt with history of [...] (hypertension) (ICD-10 - I10) On jonathan. Mar, shelter current use of insulin (ICD-10 - Z79.4) Mar, Mixed hyperlipidemia (ICD-10 - E78.2) 11/2020 LDL 97.6 Triglycerides 347, on fenofibrate, Recommend moderate intensity statin. Mar, BMI 40.0-44.9, adult (ICD-10 - Z68.41) see above [facility] Other 09-22-2021 Evaluation note* Encounter Date Diagnosis Assessment Notes Treatment Notes Treatment Clinical Notes Dec, Type 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 with hyperglycemia (ICD-10 - E11.65) Erwin came in today for evaluation of his Shivani report after returning to work and continuing to use the device. Erwin is happy with the system and wants us to send a prescription to [facility] in [place]. Erwin's BG has averaged 163 for the [...] snack at MidNight. No further changes. [employer], RESEARCH PROFESSIONAL-C, BC-ADM [facility] Other Evaluation + Plan noteExecutive [facility] Evaluation noteNo InformationNort [employer] Other Evaluation noteNo assessment information available [facility] Work Phone: Evaluation note* Diagnosis Screening for genitourinary condition Screening for other and unspecified genitourinary condition documented in this encounter [facility] - Reported* Type Description Date Medical History diabetes mellitus Medical History hypertension Medical History pancreatitis Medical History HLP Medical History R foot ulcer Surgical History heart stent Surgical History RIGHT FOOT SECOND TOE AMPUTATED 07/03 Hospitalization History see above Hospitalization History Gastric issues 03/2017 [facility] Other Hisvxgs general Narrative - Reported* Type Description Date Medical History diabetes mellitus Medical History hypertension Medical History pancreatitis Medical History HLP Medical History R foot ulcer Surgical History heart stent Surgical History RIGHT FOOT SECOND TOE AMPUTATED 07/03 Surgical History 5 Bypass surgery [facility] john 12/31/2021 Hospitalization History see above Hospitalization History Gastric issues 03/2017 Hospitalization History [facility] ass surgery 12/2021 [facility] Other Hisztro general Narrative - Reported* Type Description Date Medical History Heart failure with preserved eje ction fraction Medical History Acute prostatitis Medical History ASHD (arteriosclerotic heart dis ease) Medical History Balanitis Medical History Transient atrial fibrillation Medical History Unspecified open wou nd of unspecified toe(s) with damage to nail, subsequent encounter Medical History Type 2 diabetes david itus with diabetic polyneuropathy, unspecified whether prison insulin use Medical History shelter current use of insulin Medical History S/P [...] versity Espinosa, CABG.4-5 VESSELS 12/31/2021 Surgical History [facility] PTCA/STENT LAD 2007 Surgical History COLONOSCOPY Hospitalization History see above Hospitalization History Gastric issues 03/2017 Hospitalization History [facility] ass surgery 12/2021 [facility] Other Hospital course Narrative No data available for this section [facility] Progress note No data available for this section [facility] Reason for referral (narrative) Referred by: Antonia HACKETT MD [facility] Chief Complaint and Reason for Visit [...] finger of right hand (L02.511) Referral Organization [facility] Referring Provider First Name Fahad Referring Provider Last Name Yola Referring Provider Specialty Internal Me marineine Referred Organization [facility] Referred Provider Yarelis Santacruz Referred Address [address] [place],[phone] Referred Provider Specialty Orthopedic S urgery Referral [...] Diagnosis 1 Erectile dysfunction (N52.9) Referral Organization [facility] Referring Provider First Name Yamilex Referring Provider Last Name Bull Referring Provider Specialty Nurse Pract itioner Referred Organization Unknown Facility Referred Provider Antonia Hackett Referred Provider Specialty Urology Referral Priority Routine Referral Appointment Date 2023-03-22 General Notes Tracie Alvarado 11/15 08:20:19 AM >Spoke to Poonam and patient scheduled for [place] office on 03/22/23 at 11am at [address] [place] [address] [address] in [employer]. Tracie Alvarado 11/28/2022 09:35:22 AM >Text message sent to patient requesting he call me for Referral details. Tracie Alvarado 11/28/2022 12:00:13 PM >Patient returns my call and is informed of appt. 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 (unrecognized sec tion [...] Active Yamilex Gottlieb APRN Attending Provider Active Cryptologic Support Specialist Relationship Specialty Start Date End Date Antonia Hackett [address] [place] [address] Referring Urology 03/25/23 Cryptologic Support Specialist Relationship Specialty Start Date End Date Antonia Hackett [address] [place] [address] Referring Urology 03/25/23 Goals (unrecognized section and content) Goals may be documented in a n alternate section (unrecognized sect ion and content) No Status Records FoundNo Status Records FoundNo Status Records FoundNo Status Records FoundNo Status Records Found INFORMATION SOURCE (unrecogn ized section and content) DATE CREATED AUTHOR 08/31/2022 [facility] DATE CREATED AUTHOR AUTHOR'S ORGANIZ ATION 01/21/2023 [facility] DATE CREATED AUTHOR AUTHOR'S ORGANIZ ATION 05/08/2023 [facility] DATE CREATED AUTHOR AUTHOR'S ORGANIZ ATION 05/16/2023 [facility] DATE CREATED AUTHOR AUTHOR'S ORGANIZ ATION 06/01/2023 [facility] Source Comments (unrecognize d section and content) In the event this informatio n is protected by the Federal Confidentiality of Alcohol and Drug Abuse Patient Records regulations: The Federal rules restrict any use of the information to criminally investigate or prosecute any alcohol or drug abuse patient.[facility] the event this information is protected by the Federal Confidentiality of Alcohol and Drug Abuse Patient Records regulations: The Federal rules restrict any use of the information to criminally investigate or prosecute any alcohol or drug abuse patient.[facility] Hospital[facility] the event this information is protected by the Federal Confidentiality of Alcohol and Drug Abuse Patient Records regulations: The Federal rules restrict any use of the information to criminally investigate or prosecute any alcohol or drug abuse patient.[facility] FOR RECORDS PERTAINING TO PATIENTS WHO [...] BE BASED ON THE PRIMARY CLINICAL RECORDS. [facility] [employer] [facility]. provides no warranty or guarantee of the accuracy or completeness of information in this document.
[2023-06-19 09:52] LABS: Anion Gap 12.7; BUN Creatinine Ratio 17.4; Calcium 8.7 mg/dL (8.5-10.1); Carbon Dioxide 29.5 mmol/L (21.0-32.0); Chloride 103 mmol/L (98-107); Estimated GFR (African America >60 (>=60); Estimated GFR (Non-African Ame >60 (>=60); Glucose 143 mg/dL (74-106); Potassium 4.2 mmol/L (3.5-5.1); Sodium 141 mmol/L (136-145)
== END 2023-06-19 09:36 | disposition home or self-care (01) ==
LOC: LAB 09:35
PROVIDERS: PCP Internal Medicine; Visit Provider Internal Medicine Interventional Cardiology
DX: I50.22 Chronic systolic (congestive) heart failure (principal)
CPT/HCPCS: 36415; 80048

== ENCOUNTER 2023-07-14 07:59 | Outpatient (OUT) | payer OTHER, SELFPAY ==
--- OUTSIDE RECORDS SUMMARY | 2023-07-14 08:04 | XMS_ITS | CCD ---
Author Organization [facility] Care Team Providers Care Adult Caregiver Name Role Phone Yamielx Foster Unavailable Celestina Greene Unavailable DO Fahad Aceves Primary Care Provider JAKE Foster Attending Provider [phone] Fahad Aceves Unavailable YOLA, DR GUSTAFSON Primary Care Unavailable VICKEY LANE Attending Unavailable VICKEY LANE Admitting Unavailable DARNELL OVALLE Attending Unavailable DARNELL OVALLE Admitting Unavailable YOLA, DR GUSTAFSON Primary Care Unavailable WEST, DR STORM Coffey Consulting Unavailable KATDARNELL REINOOS Consulting Unavailable YOLA, DR GUSTAFSON Admitting Unavailable BALL, DR GUSTAFSON Primary Care Unavailable BALL, DR GUSTAFSON Attending Unavailable HIGHLANDER, DAMIAN Medrano Admitting Unavailable BALL, DR GUSTAFSON Primary Care Unavailable HIGHLDAMIAN SEGUNDO Attending Unavailable HIGHLANDERDAMIAN Attending Unavailable BALL, DR GUSTAFSON Primary Care Unavailable HIGHLDAMIAN SEGUNDO Admitting Unavailable BALL, DR GUSTAFSON Primary Care [...] Consulting Unavailable BALL, DR GUSTAFSON Attending Unavailable ZiebHeavenly portillo Consulting Unavailable BALL, DR GUSTAFSON Primary Care Unavailable MISC, DR PARRY Consulting Unavailable MISC, DR PARRY Attending Unavailable MISC, DR PARRY Admitting Unavailable BALL, DR GUSTAFSON Primary Care Unavailable DOMINGO, VICKEY Admitting Unavailable DOMINGO, VICKEY Attending Unavailable Heavenly Louis Consulting Unavailable DOMINGO, VICKEY Consulting Unavailable BALL, DR GUSTAFSON Primary Care Unavailable MOUKARBEL, DR COTTRELL Consulting Unavailable MOUKARBEL, DR COTTRELL Attending Unavailable MOUKARBEL, DR COTTRELL Admitting Unavailable KAREEN, DAMIAN Medrano Admitting Unavailable BALL, DR GUSTAFSON Primary Care Unavailable HIGHLANDER, DAMIAN Medrano Attending Unavailable Yarelis Santacruz Unavailable YAMILEX FOSTER Primary Care Physician Antonia Bush Unavailable YAMILEX FOSTER Referring Unavailable Antonia BUSH Attending Unavailable DO Fahad Aceves Primary Care Provider JAKE Foster Attending Provider [phone] Yamilex Foster Attending Unavailable Yamilex Foster Admitting Unavailable Fahad Aceves Primary Care Unavailable ROBYN NEGRON Attending Unavailable MOUKASIMBA BLAKE Attending Unavailable LIGIA COLMENARES Attending Unavailable LIGIA COLMENARES Referring Unavailable ANTONIA BUSH Referring Unavailable JIAN ALBERTO Attending Unavailabl e Allergies Allergy Classification Reported Allergen(s) Allergy Type Date of Onset Reaction(s) Facility (20 sources) empagliflozin Drug Allergy uti [facility] Other (20 sources) icosapent ethyl Drug Allergy n/v [facility] Other (1 source) empagliflozin Drug Allergy [address] [place] [address] Repository (1 source) icosapent ethyl Drug Allergy [address] [place] [address] Repository Medications Current Medications Medication Drug Class(es) [...] on above: Take 81 mg by mouth. atorvastatin 80 mg oral tablet (20 sources) HMG-CoA Reductase Inhibitor Start: take 80 mg by mouth once daily Atorvastatin Active 80 MG PO Daily June 21, 2023 1:00am Start: 03-22-2023 take 1 tablet by [facility] once daily in the evening atorvastatin (LIPITOR) 80 mg tablet Take 80 mg by mouth every evening. 0 03/26/2023 Active Comment on above: Take 80 mg by mouth every evening. bumetanide 1 mg oral tablet (10 sources) Loop Diuretic Start: 06-21-2023 take 1 mg by mouth once daily Bumetanide Active 1 MG PO Daily June 21, 2023 1:00am Start: 04-19-2023 take 1 tablet by [facility] every twenty-four hours Bumetanide 1 MG 1 tablet Orally Once a day for 30 days Apr, Active bumetanide (BUME X ORAL) Take by mouth. 0 Active take 1 tablet by mouth once benigno y Bumex 1 MG 1 tablet Orally Once a day Active Comment on above: Take by mouth. cinnamon bark 500 mg oral capsule (3 sources) Start: 06-27-19 19 take 1 capsule by mouth twice daily Cinnamon Bark (Cinnamon) 500 mg Capsule Active 500 MG PO Twice daily June 26, 2018 12:00am dapagliflozin 10 mg oral tablet (20 sources) Sodium-Glucose Cotransporter 2 Inhibitor Start: 06-21-19 24 take 1 tablet by mouth once daily Dapagliflozin Propanediol (Farxiga) 10 mg tablet Active 10 MG PO Daily June 21, 2023 1:00am Start: 03-22-2023 Farxiga 10 mg oral tablet Refills(s) 0 Start Date: 03/22/23 Status: Ordered ezetimibe 10 mg oral tablet (4 sources) Dietary Cholesterol Absorption Inhibitor Start: 06-21-2023 take 10 mg by mouth once daily Ezetimibe Active 10 MG PO Daily June 21, 2023 1:00am Start: 04-19-2023 take 1 tablet by [facility] every twenty-four hours Ezetimibe 10 MG 1 tablet Orally Once a day for 30 days Apr, Active famotidine 40 mg oral tablet (18 sources) Histamine-2 Receptor Antagonist Start: 06-21-2023 take 40 mg by mouth once daily at bedtime Famotidine Active 40 MG PO Daily at bedtime June 21, 2023 1:00am Start: 05-04-2022 take 1 tablet by [facility] every twenty-four hours Famotidine 40 MG 1 tablet at bedtime Orally Once a day Apr, Active Fish Oils (19 sources) Fish Oil Active flash glucose sensor (FreeSt yle Shivani 2 Sensor) (1 source) Start: 06-21-2023 flash glucose sensor (FreeStyle Shivani 2 Sensor) Active .Route June 21, 2023 1:00am FreeStyle Shivani 2 Sensor - (20 sources) Start: 01-06-2021 FreeStyle Libr e 2 Sensor - as directed In Vitro Change Every 14 days for 84 days Dec, Active FreeStyle Shivani 2 Sensor - CHANGE EVERY 14 DAYS for 84 Active Insulin Glargine U-300 Conc (1 source) Start: 06-21-2023 inject 72 [IU] by subcutaneous injection once daily at bedtime Insulin Glargine U-300 Conc Active 72 UNIT SUBCUT Daily at bedtime June 21, 2023 5:18pm 3 ml insulin lispro-aabc 100 unt/ml pen injector (20 sources) Insulin Analog Start: 03-22-2023 Lyumjev KwikPe n 100 units/mL injectable solution Refills(s) 0 Start Date: 03/22/23 Status: Ordered Start: 05-04-2021 Lyumjev KwikPe n 100 UNIT/ML 32 units ac breakfast , 38 supper plus ISS 1: 10 ac, (hs if >200 half dose) (expect daily dose 80 units) Subcutaneous ACHS Apr, Active Insulin Lispro-Aabc (1 source) Start: 06-21-2023 Insulin Lispro -Aabc Active 0 SUBCUT .COMPLEX June 21, 2023 1:00am USE 32 UNITS BEFORE BREAKFAST, 38 BEFORE SUPPER PLUS ISS 1:10 BEFORE MEALS (AT BEDTIME IF >200 HALF DOSE) *UP TO 100 UNITS PER DAY* Subcutaneous (expect up to 100 units/day) LEVEMIR FLEXTOUCH 100 UNIT/ ML (4 sources) LEVEMIR FLEXTOUC H 100 UNIT/ ML 42 units Subcutaneous bid Active magnesium oxide 400 mg oral tablet (20 sources) Start: 06-21-2023 take 400 mg by mouth once daily Magnesium Oxide Active 400 MG PO Daily June 21, 2023 1:00am take 1 tablet by [facility] every twenty-four hours Magnesium Oxide 400 MG 1 tablet as needed Orally Once a day Active 24 hr metFORMIN hydrochloride 500 mg extended release oral tablet (20 sources) Biguanide Start: 06-21-2023 take 500 mg by mouth three times daily Metformin Active 500 MG PO Three times daily June 21, 2023 1:00am Start: 02-01-2023 take 1 tablet by [facility] every twelve hours metFORMIN ER (GLUCOPHAGE XR) 500 mg 24 hr tablet Take 1 tablet by mouth every 12 hours. 0 02/01/2023 Active Start: 06-26-2018 End: 06-21-2023 Metformin (Glucophage) 500 m g Tablet Discontinued 1000 MG PO 1800 June 26, 2018 12:00am June 21, 2023 5:21pm Start: 06-26-2018 End: 06-21-2023 Metformin (Glucophage) 500 m g Tablet Discontinued 500 MG PO 0300 June 26, 2018 12:00am June 21, 2023 5:29pm take 500 mg by mouth three times [...] oral tablet (20 sources) beta-Adrenergic Radhika Start: 06-21-2023 take 100 mg by mouth twice daily Metoprolol Succinate Active 100 MG PO Twice daily June 21, 2023 1:00am Start: 03-05-2023 take 1 tablet by [facility] in the morning metoprolol succinate ER (TOPROL XL) 100 mg TAKE 1 TABLET BY MOUTH IN THE MORNING AND 1 TABLET AT BEDTIME 0 03/05/2023 Active take 1 tablet by [facility] twice daily Metoprolol Succinate ER 100 MG 1 tablet Orally twice daily Active Comment on above: TAKE 1 TABLET BY [facility] IN THE MORNING AND 1 TABLET AT BEDTIME Multivitamin preparation (3 sources) Start: 06-26-2018 take 1 tablet by mouth once daily Multivitamin Active 1 TAB PO Daily June 25, 2018 11:00pm Start: 06-26-2018 take 1 tablet by [facility] once daily Multivitamin Active 1 TAB PO Daily June 26, 2018 12:00am niacin 500 mg oral tablet (3 sources) Nicotinic Acid Start: 06-26-2018 take 500 mg by mouth once daily at bedtime Niacin Active 500 MG PO Daily at bedtime June 26, 2018 12:00am omega-3 fatty acids (Fish Oil) (1 source) Start: 06-21-2023 take 1 capsule by mouth once daily omega-3 fatty acids (Fish Oil) Active 1 CAP PO Daily June 21, 2023 1:00am pantoprazole 40 mg delayed release oral tablet (18 sources) Proton Pump Inhibitor Start: 06-21-2023 take 40 mg by mouth once daily Pantoprazole Active 40 MG PO Daily June 21, 2023 1:00am Start: 06-17-2022 Pantoprazole [address] Tab Refills(s) 0 Start Date: 03/22/23 Status: Ordered pen needle, diabetic (BD Ultra-Fine Georgina Pen Needle) (1 source) Start: 06-21-2023 pen needle, diabetic (BD Ultra-Fine Georgina Pen Needle) Active .Route June 21, 2023 1:00am sacubitril 24 mg / valsartan 26 mg oral tablet (20 sources) Angiotensin 2 Receptor Radhika Start: 06-21-2023 take 1 tablet by mouth twice daily Sacubitril-Valsar grimes (Entresto) 24-26 mg tablet Active 1 TAB PO Twice daily June 21, 2023 1:00am Start: 03-22-2023 Entresto 24 mg -26 mg oral tablet Refill(s) 0 Start Date: 03/22/23 Status: Ordered ENTRESTO 24 mg/2 6 mg 1 orally twice a day Active sildenafil 100 mg oral tablet (14 sources) Phosphodiesterase 5 Inhibitor Start: 06-21-2023 Sildenafil Active 100 MG PO June 21, 2023 1:00am Start: 10-17-2022 take 1 tablet by [facility] once daily as needed Sildenafil Citrate 100 MG 1 tablet Orally Once a day, as needed for ED for 30 days Oct, Active spironolactone 25 mg oral tablet (20 sources) Aldosterone Antagonist Start: 06-21-2023 take 25 mg by mouth once daily Spironolactone Active 25 MG PO Daily June 21, 2023 1:00am Start: 03-22-2023 spironolactone 25 mg Tab Refills(s) 0 Start Date: 03/22/23 Status: Ordered tiZANidine 4 mg oral tablet (15 sources) Central alpha-2 Adrenergic Agonist Start: 06-21-2023 take 0.5-2 tablets by mouth once daily at bedtime Tizanidine Active 0 PO .COMPLEX June 21, 2023 1:00am TAKE 1/2 TO 2 TABLETS BY MOUTH EVERY DAY AT BEDTIME; Start: 03-22-2023 tiZANidine 4 m g Tab Refills(s) 0 Start Date: 03/22/23 Status: Ordered Completed/Discontinued Medications Medication Drug Class(es) Dates Sig (Normalized) Sig (Original) acetaminophen 325 mg oral tablet (4 sources) Start: 01-16-20 take 2 tablets by mouth every six hours as needed acetaminophen (TYLENOL) 325 mg tablet Take 650 mg by mouth every 6 hours as needed. 0 01/15/2022 Active Comment on above: Take 650 mg by mouth every 6 hours as needed. amiodarone hydrochloride 200 mg oral tablet (20 sources) Antiarrhythmic Start: 03-24-20 End: 06-19-19 take 1 tablet by mouth once amiodarone (PACERONE) 200 mg tablet Take 1 tablet by mouth every afternoon. 0 03/24/2023 06/19/2023 Discontinued Comment on above: Take 1 tablet by [facility] every afternoon. atenolol 25 mg oral tablet (13 sources) beta-Adrenergic Radhika Start: 06-27-19 End: 06-21-19 Atenolol Discontinued 25 MG PO 1200 June 26, 2018 12:00am June 21, 2023 5:28pm canagliflozin 300 mg oral tablet (3 sources) Sodium-Glucose Cotransporter 2 Inhibitor Start: 06-27-19 End: 06-21-19 24 Canagliflozin Discontinued 300 MG PO 1199June 26, 2018 12:00am June 21, 2023 5:28pm ciprofloxacin 500 mg oral tablet (5 sources) Quinolone Antimicrobial Start: 08-12-19 take 1 tablet by mouth every twelve hours Cipro 500 MG 1 tablet Orally every 12 hrs for 7 days Jul, Not-Taking clopidogrel 75 mg oral tablet (14 sources) P2Y12 Platelet Inhibitor Start: 06-27-19 End: 06-21-19 Clopidogrel Discontinued 75 MG PO 1199June 26, 2018 12:00am June 21, 2023 5:28pm empagliflozin 10 mg oral tablet (10 sources) Sodium-Glucose Cotransporter 2 Inhibitor take 1 tablet by mouth every twenty-four hours Jardiance 10 MG 1 tablet Orally Once a day for 30 day(s) Not-Taking fenofibrate 145 mg oral tablet (13 sources) Peroxisome Proliferator Receptor alpha Agonist Start: 06-27-19 End: 06-21-19 Fenofibrate Nanocrystallized Discontinued 145 MG PO 1199June 26, 2018 12:00am June 21, 2023 5:29pm fluconazole 150 mg oral tablet (10 sources) Azole Antifungal Start: 08-25-19 Diflucan 150 MG 1 tablet Orally Once, repeat in 3 days if needed for 3 days August, Not-Taking hydroCHLOROthiazide 25 mg oral tablet (13 sources) Thiazide Diuretic Start: 06-27-19 End: 06-21-19 Hydrochlorothiazide Discontinued 25 MG PO 1200 June 26, 2018 12:00am June 21, 2023 5:29pm 3 ml insulin aspart, human 100 unt/ml pen injector (20 sources) Insulin Analog Start: 06-27-19 End: 06-21-19 24 Insulin Aspart U-100 Discontinued June 26, 2018 12:00am June 21, 2023 5:18pm insulin aspart U -100 (NOVOLOG) 100 unit/mL [...] injector (20 sources) Insulin Analog Start: 03-22-2023 insulin glargine U-300 conc (TOUJEO MAX U-300 SOLOSTAR) 300 unit/mL (3 mL) inpn Refills(s) 0 0 03/22/2023 Active Start: 03-22-2023 Toujeo Max Rosanna oStar 300 units/mL subcutaneous solution Refills(s) 0 Start Date: 03/22/23 Status: Ordered Start: 06-26-2018 End: 06-21-2023 inject 60 [IU] by subcutaneous injection once daily at bedtime Insulin Glargine U-300 Conc Discontinued 60 UNIT SUBCUT Daily at bedtime June 26, 2018 12:00am June 21, 2023 5:27pm Toujeo Max SoloS tar 300 UNIT/ML 70 [...] At bedtime (titrate up to 70/day) Active Comment on above: Refills(s) 0 lisinopril 10 mg oral tablet (13 sources) Angiotensin Converting Enzyme Inhibitor Start: 9 End: Lisinopril Discontinued 10 MG PO 1200 June 26, 2018 12:00am June 21, 2023 5:29pm Magnesium, Zinc, Vitamin D (3 sources) Start: 9 End: 4 take 1 tablet by mouth once daily at bedtime Magnesium, Zinc, Vitamin D Discontinued 1 TAB PO Daily at bedtime June 26, 2018 12:00am June 21, 2023 5:29pm Start: 06-26-2018 take 1 tablet by [facility] once daily at bedtime Magnesium, Zinc, Vitamin D Active 1 TAB PO Daily at bedtime June 25, 2018 11:00pm Start: 06-26-2018 take 1 tablet by [facility] once daily at bedtime Magnesium, Zinc, Vitamin D Active 1 TAB PO Daily at bedtime June 26, 2018 12:00am omega 0-ifl-saq-fish oil (FISH OIL) 100-160-1,000 mg cap (4 sources) omega 3-dha-epa- fish oil (FISH OIL) 100-160-1,000 mg cap Take [...] chloride 20 meq extended release oral tablet (4 sources) Start: 2021 potassium chloride ER (KLOR-CON) 20 mEq tablet Take 20 mEq by mouth. 0 03/02/2022 Active Comment on above: Take 20 mEq by mouth . Problems Active Problems Problem Classification Problem Date Documented Da te Episodic/Chronic Abdominal pain (1 source) Epigastric pain Episodic Acute myocardial infarction (4 sources) Non-ST elevation (NSTEMI) myocardial infarction; 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: [NON-ST ELEVATION MYOCARDIAL INFARCT] Onset: 03-30-2022 Chronic Administrative/social admission (20 sources) Dietary management surveillance; 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: [Dietary counseling and surveillance] Onset: 03-24-2021 Resolved: 10-21-2021 Episodic Cardiac dysrhythmias (20 sources) Atrial fibrillation; 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: [Unspecified atrial fibrillation] Onset: 2022 Chronic Chronic ulcer of skin (1 source) Non-pressure chronic ulcer of other part of left foot limited to breakdown of skin; 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: [N-PRS ULCR OTH PRT LT FT BRKDWN SKN] Onset: 09-20-2021 Chronic Complications of surgical procedures or medical care (2 sources) Other postprocedural complications and disorders of the circulatory system, not elsewhere classified; 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: [Other postprocedural complications and disorders of the circulatory system, not elsewhere classified] Onset: 2022 Episodic Congestive heart failure; nonhypertensive (20 sources) Heart failure with normal ejection fraction; 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: [Unspecified diastolic (congestive) heart failure] Onset: 02-16-2022 Chronic Coronary atherosclerosis and other heart disease (20 sources) Coronary arteriosclerosis; 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: [Atherosclerotic heart disease of [place] coronary artery without angina pectoris] Onset: 01-06-2022 Chronic Coronary atherosclerosis and other heart disease (9 sources) Presence of aortocoronary bypass graft; 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: [PRESENCE AORTOCORONARY BYPASS GRAFT] Onset: 01-31-2022 Episodic Crushing injury or internal injury (2 sources) [...] 03-22-2023 Chronic Genitourinary symptoms and ill-defined conditions (12 sources) Dysuria; 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: [Hematuria, unspecified] Onset: 08-11-2021 Resolved: 08-11-2021 Episodic Inflammatory conditions of male genital organs (19 sources) Balanitis; 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: [Balanitis] Onset: 03-22-2023 Chronic Inflammatory conditions of male genital organs (17 sources) Acute prostatitis; 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: [Acute prostatitis] Episodic Intestinal infection (1 source) Balantidiasis 03-22-2023 Episodic Nutritional deficiencies (20 sources) Vitamin D deficiency; 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: [Vitamin D deficiency, unspecified] Chronic Nutritional deficiencies (7 sources) Deficiency of other specified B group vitamins; 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: [Cobalamin deficiency] Onset: 10-21-2021 Resolved: 10-21-2021 Episodic Open wounds of extremities (17 sources) Open wound of toe(s) with damage to nail; 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: [Unspecified open wound of unspecified toe(s) with damage to nail, subsequent encounter] Episodic Other aftercare (20 sources) Long-term current use of insulin; 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: [[facility] (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] Episodic Other aftercare (8 sources) [facility] (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; 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: [INTERMEDIATE CURRENT USE OF INSULIN] Onset: 03-24-2021 Resolved: 10-21-2021 Episodic Other aftercare (1 source) Long-term current use of anticoagulant; 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: [long term (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 of anticoagulants] Onset: 03-22-2023 Episodic [...] Onset: 03-22-2023 Chronic Other male genital disorders (4 sources) Acquired buried penis; 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] Onset: 05-03-2023 05-03-2023 Chronic Other male genital disorders (4 sources) Fibrosis of corpus cavernosum; 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: [Induration penis plastica] Onset: 05-03-2023 05-03-2023 Chronic Other male genital disorders (1 [...] Onset: 05-03-2023 Chronic Other male genital disorders (2 [...] Chronic Other nutritional; endocrine; and metabolic disorders (4 sources) Body mass index (BMI) 39.0-39.9, adult; 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: [Body Mass Index 39.0-39.9, adult] Chronic Other nutritional; endocrine; and metabolic disorders (1 source) Obesity, unspecified; 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: [OBESITY UNSPECIFIED] Onset: 01-06-2022 Chronic Other nutritional; endocrine; and metabolic disorders (1 source) Body mass index 30+ - obesity; 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: [Body mass index (BMI) 39.0-39.9, adult] 06-21-2023 Chronic Other screening for suspected conditions (not [...] region] Onset: 11-01-2021 Chronic Superficial injury; contusion (5 sources) Blister (nonthermal), left great toe, initial encounter; 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: [Contusion of unspecified finger with damage to nail, initial encounter] Episodic Unclassified (1 source) CONTACT W/AND (SUSP) EXPOS COVID-19; 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: [CONTACT W/AND (SUSP) EXPOS COVID-19] Onset: 01-06-2022 Unclassified (1 source) Drug therapy finding 03-22-2023 Past or Other Problems Problem Classification Problem Date Documented Da te Episodic/Chronic Esophageal disorders (4 sources) Esophageal disorders Mycoses (1 source) Tinea unguium; 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: [TINEA UNGUIUM] Onset: 09-20-2021 Episodic Nonspecific chest pain (3 sources) Chest pain, unspecified; 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: [CHEST PAIN UNSPECIFIED] Onset: 12-31-2021 Episodic Other aftercare (1 source) long term (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 of oral hypoglycemic drugs; 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: [INTERMEDIATE USE ORAL HYPOGLYCEMIC DX] Onset: 01-06-2022 Episodic [...] Test Name Value Interpretation Reference Range Facility HbA1c HPLC (Bld) [Mass fract ion]on 06-21-2023 HbA1c (Bld) [Mass fraction] 7.4 % [facility] No Panel Informationon 06-20 Bedside Glucose 133 [facility] CNCOon 06-19-2023 CNCO Letter Text Normal [facility] CNOVon 06-19-2023 CNOV Office Visit ([facility] ) CADEN WILLS ([id number]) 1960 M Date Time Provider Department 06/19/23 1:00 PM LIGIA COLMENARES During your visit today, we recorded the following information about you: Pulse Blood pressure Weight 68/minute 112/68 124.3 kg Ligia Colmenares MD 06/19/2023 1:23 PM Signed [facility] [place] [facility] Department of Cardiovascular Medicine SECTION OF REGIONAL CARDIOLOGY Consultation requested by No ref. provider found for an opinion regarding Caden Wills. My final recommendations will be communicated back to the requesting physician by way of shared Medical record or letter to requesting physician via US mail. CC: perioperative cardiac risk assessment and establish care HPI: Caden Wills is a (an) 63 year old male who is here today for perioperative cardiac risk assessment prior to undergoing circumcision surgery, this is not an urgent or emergent surgery and the proposed surgery is Ambulatory surgery - Low risk. The patient has the following risk factors: age (male over 45, female over 55), hyperlipidemia, obesity, diabetes, hypertension and at the present time he Denies Active cardiac conditions. 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 The most activity that Mr. Caden Wills can easily do is do heavy work around the house, such as scrubbing floors, lifting or moving heavy furniture (8.00 METs). 12/06/2022 Robyn Negron Card[facility]- [facility] HPI Pleasant 62-year-old man with prior history of coronary disease status post percutaneous intervention to chronically occluded LAD in 2007. Additional history includes diabetes, hypertension and hyperlipidemia. He was admitted in December 2021 to [facility] with chest pain and diagnosed with [...] overall states he is feeling quite well. No past medical history on file. No past surgical history on file. No family history on file. SOCIAL HISTORY Social History Tobacco Use Smoking status: Never Smokeless tobacco: Never ALLERGIES: Patient has no known allergies. CURRENT MEDICATIONS: Current Outpatient Medications Medication Sig insulin glargine U-300 conc (TOUJEO MAX U-300 SOLOSTAR) 300 unit/mL (3 mL) inpn Refills(s) 0 metFORMIN ER (GLUCOPHAGE XR) 500 mg 24 hr tablet Take 1 tablet by mouth every 12 hours. acetaminophen (TYLENOL) 325 mg tablet Take 650 mg by mouth every 6 hours as needed. insulin aspart U-100 (NOVOLOG) 100 unit/mL Inject 25 Units subcutaneously. atorvastatin (LIPITOR) 80 mg tablet Take 80 mg by mouth every evening. aspirin, enteric coated (ASPIRIN, ENTERIC COATED) 81 mg EC tablet Take 81 mg by mouth. metoprolol succinate ER (TOPROL XL) 100 mg TAKE 1 TABLET BY MOUTH IN THE MORNING AND 1 TABLET AT BEDTIME potassium chloride ER (KLOR-CON) 20 mEq tablet Take 20 mEq by mouth. amiodarone (PACERONE) 200 mg tablet Take 1 tablet by mouth every afternoon. omega 5-mll-tio-fish oil (FISH OIL) 100-160-1,000 mg cap Take 1,000 mg by mouth. bumetanide (BUMEX ORAL) Take by mouth. No current facility-administered medications for this visit. ROS: Card: See present history. Pulm: Negative for cough, hemoptysis, wheezing, COPD, dyspnea or shortness of breath Gastro: No nausea, vomiting, or diarrhea GenUr: No history of dysuria, frequency or incontinence Endo: Negative for cold or heat intolerance, polyuria or polydipsia. Neuro: no focal weakness, focal sensory loss, headache, visual changes, seizure activity, ataxia, speech/language loss. Musculoskeletal: Negative for joint or muscle pain, back pain, or swelling. Infect: no fevers, chills, rigors or night sweats. Skin: Negative for lesions, rash, and itching. Heme: Negative for prolonged bleeding, bruising easily or swollen nodes. The remainder of the review of systems is negative. PHYSICAL EXAMINATION: GENERAL: alert cooperative, pleasant oriented x 3 (self, time and place) in no acute distress BP 112/68 Pulse 68 Wt 124.3 kg (274 lb) BMI 39.31 kg/m? Last 3 Encounter BP Readings: Date: BP: 05/03/2023 137/78 Last 3 Encounter Pulse Readings: Date: Pulse: 05/03/2023 67 Last 3 (more content not included)... Normal [facility] Cholesterol in LDL Calc [Mas s/Vol]on 06-19-2023 Cholesterol in LDL [Mass/Vol] 66.0 mg/dL [facility] Comment on above: <100 mg/dl [id number] 0-129 mg/dl NEAR OR ABOVE [id number] mg/dl BORDERLINE [id number] mg/dl HIGH>190 mg/dl VERY HIGH Cholesterol in VLDL Calc [Ma ss/Vol]on 06-19-2023 Cholesterol in VLDL [Mass/Vol] 43.0 mg/dL [facility] ECG COMPLETEon 06-19-2023 ECG COMPLETE Ventricular Rate : 6 8 BPM Atrial Rate : 68 BPM P-R Interval : 188 ms QRS Duration : 88 ms Q-T Interval : 414 ms QTC Calculation(Bazett) : 440 ms Calculated P [place] : 53 degrees Calculated R [place] : 20 degrees Calculated T [place] : 86 degrees NORMAL SINUS RHYTHM LOW VOLTAGE QRS NONSPECIFIC ST ABNORMALITY ABNORMAL ECG Confirmed by LIGIA COLMENARES M.D. ([id number]), publications editor Lainey Agee ([id number]) on 06/19/2023 2:11:39 PM NAME : CADEN WILLS PID : [id number] : 1960 Gender : Male Race : Unknown ORD : [id number] Procedure Date : Jun 19 2023 13:03:26 Edit Date : Jun 19 2023 14:11:40 Diagnosis: NORMAL SINUS RHYTHM LOW VOLTAGE QRS NONSPECIFIC ST ABNORMALITY ABNORMAL ECG Confirmed by LIGIA COLMENARES M.D. ([id number]), publications editor Lainey Agee ([id number]) on 06/19/2023 2:11:39 PM Test Reason : Location : 105 : CAR Overread By : LIGIA COLMENARES M.D. Edited By : Lainey Agee Referred By : LIGIA COLMENARES Acquired by : , Arnaldo [facility] Atrial Rate 68 BPM [facility] Calculated P [place] 53 degrees [facility] Calculated R [place] 20 degrees [facility] Calculated T [place] 86 degrees [facility] P-R Interval 188 ms [facility] QRS Duration 88 ms [facility] QT Interval 414 ms [facility] QTC Calculation (Bazett) 440 ms [facility] Ventricular Rate 68 BPM [facility] Estimated glomerular filtrat ion rate (GFR) non- Americanon 06-19-2023 GFR/1.73 sq M.predicted among non-blacks MDRD (S/P/Bld) [Vol rate/Area] mL/min/{1.73_m2} >=60 [facility] Laboratory - Chemistry and C hemistry - challengeon 06-19-2023 Calcium [Mass/Vol] 8.7 mg/dL 8.5-10.1 [facility] Chloride [Moles/Vol] 103 mmol/L 98-[facility] Cholesterol [Mass/Vol] 141 mg/dL <=200 [facility] Cholesterol in HDL [Mass/Vol] 32 mg/dL 40-60 [facility] Comment on above: > or =60 mg/dl - LOW CARDIOVASCULAR RISK<40 mg/dl - HIGH CARDIOVASCULAR RISK CO2 [Moles/Vol] 29.5 mmol/L 21.0-32.0 [facility] Creatinine [Mass/Vol] 0.86 mg/dL 0.70-1.30 [facility] GFR/1.73 sq M.predicted MDRD (S/P/Bld) [Vol rate/Area] mL/min/{1.73_m2} >=60 [facility] Glucose [Mass/Vol] 143 mg/dL 74-106 [facility] Potassium [Moles/Vol] 4.2 mmol/L 3.5-5.1 [facility] Sodium [Moles/Vol] 141 mmol/L 136-145 [facility] Triglyceride [Mass/Vol] 215 mg/dL <=150 [facility] Urea nitrogen [Mass/Vol] 15.0 mg/dL 7.0-18.0 [facility] Urea nitrogen/Creatinine [Mass ratio] 17.4 mg/mg [facility] Office Visiton 06-19-2023 Follow-up visit [id number] Caden Wills 1960 M Date Provider Department Center 06/19/2023 SIMBA REYEZ [facility] Family History Problem Relation Age of Onset Coronary artery disease Father Family Status - Relation Status Age at Father Level of Service:37266 [place] OFFICE/OUTPATIENT ESTABLISHED MOD MDM 30 MIN Normal [facility] Serum or plasma anion gap de terminationon 06-19-2023 Anion gap [Moles/Vol] 12.7 mmol/L [facility] Serum or plasma total choles terol/high density lipoprotein (HDL) cholesterol mass evelyn 06-19-2023 Cholesterol.total/Radha sterol in HDL [Mass ratio] 4.4 {ratio} [facility] Comment on above: 3.3 - 4.4 LOW RISK4. 4 - 7.1 AVERAGE RISK7.1 - 11.0 MODERATE RISK>11.0 HIGH RISK Brian 06-14-2023 AIMEE Telephone (UROLMN) CADEN WILLS [place] ([id number]) 1960 M Date Time Provider Department 06/14/23 NOY MARY During your visit today, we recorded the following information about you: Noy Mary RN 06/14/2023 10:06 AM Addendum error Allergies As of Date: 06/14/2023 (No Known Allergies) Date Reviewed: 05/03/2023 Reviewed by: Claudia Burt OCCA - Fully Assessed Prescriptions as of 06/14/2023 - metFORMIN ER (GLUCOPHAGE XR) 500 mg [...] tablet by mouth every afternoon. - omega 1-mvr-vih-fish oil (FISH OIL) 100-160-1,000 mg cap Take 1,000 mg by mouth. - bumetanide (BUMEX ORAL) Take by mouth. 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 Alberto. Discussed pre op testing on 07/26 in [place], or he could make two trips. Asked him to confirm Asked patient to confirm receipt, and voice any questions or concerns. Number provided. 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 - omega 5-icb-uom-fish oil (FISH OIL) 100-160-1,000 mg cap Take 1,000 mg by mouth. - bumetanide (BUMEX ORAL) Take by mouth. 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 00TIFF Normal [facility] CNOVon 05-03-2023 CNOV Office Visit (UROLMN ) CADEN WILLS ([id number]) 1960 M Date Time Provider Department 05/03/23 2:00 PM JIAN ALBERTO UROCARMEN During your visit today, we recorded the following information about you: Pulse Blood pressure Weight Height 67/minute 137/78 123.4 kg 1.778 m Jian Alberto MD 05/03/2023 2:28 PM Signed [facility] NEW PATIENT HISTORY AND PHYSICAL EXAM PATIENT INFO: Caden Wills 63 year old REFERRING M.D.: Antonia Bush MD [address] [place] [id number] This consult was requested by Dr. Bush for an opinion regarding buried penis and erectile dysfunction, and my final recommendations will be communicated to the requesting health care provider by way of the shared medical record for internal providers or letter via the [employer] for external providers. 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 , interested in future sexual life. [...] noted ASSESSMENT/PLAN: (more content not included)... Normal [facility] URINALYSIS, REFLEX MICROSCOP ICon 05-03-2023 Bilirubin Ql (U) Negative Normal Negative [facility] Comment on above: Order Comment: Speci men Type: URINE SPECIMEN Ordering Facility: [facility] Address: [address] [place] [address] Performed By: #### L [id number] #### [facility] CLIA [id number] [address] [place] [address] [place] Clarity (Unsp spec) Clear Normal Clear [facility] Comment on above: Order Comment: Speci men Type: URINE SPECIMEN Ordering Facility: [facility] Address: [address] [place] [address] Performed By: #### L [id number] #### [facility] CLIA [id number] [address] [place] [address] [place] Color (U) Light Yellow Normal Yellow [facility] Comment on above: Order Comment: Speci men Type: URINE SPECIMEN Ordering Facility: [facility] Address: [address] [place] [address] Performed By: #### L [id number] #### [facility] CLIA [id number] [address] [place] [address] [place] Glucose Test strip (U) [Mass/Vol] 4+ Abnormal Trace, Negative [facility] Comment on above: Order Comment: Speci men Type: URINE SPECIMEN Ordering Facility: [facility] Address: [address] [place] [address] Performed By: #### L [id number] #### [facility] CLIA [id number] [address] [place] [address] [place] Hemoglobin Ql (U) Negative Normal Negative, Trace [facility] Comment on above: Order Comment: Speci men Type: URINE SPECIMEN Ordering Facility: [facility] Address: [address] [place] [address] Performed By: #### L [id number] #### [facility] CLIA [id number] [address] [place] [address] [place] Ketones Ql (U) Negative Normal Negative, Trace [facility] Comment on above: Order Comment: Speci men Type: URINE SPECIMEN Ordering Facility: [facility] Address: [address] [place] [address] Performed By: #### L [id number] #### [facility] CLIA [id number] [address] [place] [address] [place] Leukocyte esterase Test strip Ql (U) 25 Quintin/uL Normal Negative, 25 Quintin/uL [facility] Comment on above: Order Comment: Speci men Type: URINE SPECIMEN Ordering Facility: [facility] Address: [address] [place] [address] Performed By: #### L [id number] #### [facility] CLIA [id number] [address] [place] [address] [place] Nitrite Ql (U) Negative Normal Negative [facility] Comment on above: Order Comment: Speci men Type: URINE SPECIMEN Ordering Facility: [facility] Address: [address] [place] [address] Performed By: #### L [id number] #### [facility] CLIA [id number] [address] [place] [address] [place] pH (U) 5.5 [pH] Normal 5.0-8.0 [facility] Comment on above: Order Comment: Speci men Type: URINE SPECIMEN Ordering Facility: [facility] Address: [address] [place] [address] Performed By: #### L [id number] #### [facility] CLIA [id number] [address] [place] [address] [place] Protein (U) [Mass/Vol] Negative Normal Trace , Negative [facility] Comment on above: Order Comment: Speci men Type: URINE SPECIMEN Ordering Facility: [facility] Address: [address] [place] [address] Performed By: #### L [id number] #### [facility] CLIA [id number] [address] [place] [address] [place] Specific gravity (U) [Rel density] 1.032 High 1.005-1.030 [facility] Comment on above: Order Comment: Speci men Type: URINE SPECIMEN Ordering Facility: [facility] Address: [address] [place] [address] Performed By: #### L [id number] #### [facility] CLIA [id number] [address] [place] [address] [place] Urobilinogen Ql (U) Negative Normal Negative [facility] Comment on above: Order Comment: Speci men Type: URINE SPECIMEN Ordering Facility: [facility] Address: [address] [place] [address] Performed By: #### L [id number] #### [facility] CLIA [id number] [facility] [place] [address] [place] Bilirubin Ql (U) Negative Negative [facility] Clarity (Unsp spec) Clear Clear [facility] Color (U) Light Yellow Yellow [facility] Glucose Test strip (U) [Mass/Vol] 4+ Abnormal Trace, Negative [facility] Hemoglobin Ql (U) Negative Negative, Trace [facility] Ketones Ql (U) Negative Negative, Trace [facility] Leukocyte esterase Test strip Ql (U) 25 Quintin/uL Negative, 25 Quintin/uL [facility] Nitrite Ql (U) Negative Negative [facility] pH (U) 5.5 [pH] 5.0 - 8.0 [facility] Protein (U) [Mass/Vol] Negative Trace , Negative [facility] Specific gravity (U) [Rel density] 1.032 High 1.005 - 1.030 [facility] Urobilinogen Ql (U) Negative Negative [facility] Physician Referralon 023 Physician Referral [id number] .00TIFF Normal [facility] Physician Referralon 023 Physician Referral [id number] .00TIFF Normal [facility] Physician Referralon 023 Physician Referral [id number] .00TIFF [facility] Screenson 03-23-2023 Screens [id number] .00TIFF [facility] Ambulatory Visit Summaryon 1 05-23-2022 Ambulatory Visit Summary CADEN WILLS :1960 Visit Date:03/22/2023 Ambulatory Visit Instructions Your Diagnosis ED (erectile dysfunction) Phimosis Hidden penis Balanoposthitis Anticoagulated Tests Performed Urnls Dip Stick Auto w/o Microscopy POC [id number] Your Care Team Attending Physician - Antonia BUSH MD Primary Care Physician - YAMILEX FOSTER CNP Referring Physician - YAMILEX FOSTER CNP This Is Your Medications List Contact [...] the Following Appointments Follow Up with Antonia BUSH MD, URL When: Where: [address] [address]- Someone Will Contact You Regarding These Appointments [facility] External Ambulatory Referral, Urology, Dr. Alberto, 03/22/23 11:49:00 EST, Phimosis [facility] Patient Educationon 03-22-20 23 Patient Education Urology Erectile Dysfunction Erectile dysfunction [...] these instructions at home: Medicines ? Take kuiv-esv-eaqtyot and prescription medicines only as told by [...] include cig (more content not included)... Normal [facility] Urology Office/Clinic Noteon 03-22-2023 Urology Office/Clinic Note HPI Staff 63 yo male referred by Yamilex Foster CNP for ED. Never seen in our [...] Assessment/Plan 63 yo male referred by Yamilex Foster CNP for ED. Never seen in our [...] foreskin. Hidden penis. Recommended referral to Dr. Alberto. 3. 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 Anticoagulated (Z79.01: [facility] (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 of anticoagulants) Plavix. S/p bypass [...] that he be seen by Dr. Jian Alberto at the [facility] for his opinion. He can utilize znrf-xzy-imthfzh Monistat cream/triple antibiotic on a as needed [...] considered at some point 2. Await Dr. Alberto's opinion. Portions of this record may have been created with voice recognition artificial intelligence software, specifically [employer] and o (more content not included)... Normal [facility] Comment on above: Result Comment: Elec tronically Signed By: Antonia BUSH MD\.br\Date and Time Signed: 03/22/23 12:07 EST\.br\Electronically Co-Signed By: Maria M Campos\.br\Date and Time Co-Signed: 03/22/23 11:53 EST A1C HEMOGLOBINon 03-08-2023 HbA1c (Bld) [Mass fraction] 7.2 % [facility] [employer] Other Glucose - FINGER STICKon Glucose [Mass/Vol] 187 mg/dL [facility] [employer] [facility] Other HbA1c (Bld) [Mass fraction]o n 03-08-2023 A1C HEMOGLOBIN [facility] [employer] Other Orders Onlyon 02-08-2023 Orders Only [id number] Harvey,Caden A 1960 M Date Provider Department Center 02/08/[address] Family History Problem Relation Age of Onset Coronary artery disease Father Family Status - Relation Status Age at Father Normal [facility] Orders Onlyon 01-16-2023 Orders Only [id number] Elio,Caden A 1960 M Date Provider Department Center 01/16/[address] Family History Problem Relation Age of Onset Coronary artery disease Father Family Status - Relation Status Age at Father Normal [facility] Office Visiton 12-06-2022 Follow-up visit [id number] Elio,Caden A 1960 M Date Provider Department Center 12/06/2022 [facility] Problem Relation Age of Onset Coronary artery disease Father Family Status - Relation Status Age at Father Level of Service:42339 [place] OFFICE/OUTPATIENT ESTABLISHED MOD MDM 30-39 MIN Reason for Visit and Comments: Follow-up [734910] - 6 month follow up Normal [facility] A1C HEMOGLOBINon 11-24-2022 HbA1c (Bld) [Mass fraction] 6.6 % [employer] Other Glucose - FINGER STICKon Glucose [Mass/Vol] 102 mg/dL [employer] Other HbA1c (Bld) [Mass fraction]o n 11-24-2022 A1C HEMOGLOBIN [employer] Other A1C HEMOGLOBINon 08-22-2022 HbA1c (Bld) [Mass fraction] 6.5 % [employer] Other Glucose - FINGER STICKon Glucose [Mass/Vol] 159 mg/dL [employer] Other HbA1c (Bld) [Mass fraction]o n 08-22-2022 A1C HEMOGLOBIN [employer] Other A1C HEMOGLOBINon 05-19-2022 HbA1c (Bld) [Mass fraction] 6.9 % [employer] Other Glucose - FINGER STICKon Glucose [Mass/Vol] 206 mg/dL [employer] Other HbA1c (Bld) [Mass fraction]o n 05-19-2022 A1C HEMOGLOBIN [employer] Other UA RANDOMon 04-05-2022 Bilirubin Ql (U) Negative Normal NEGATIVE [facility] Comment on above: Performed By: #### U A #### [facility] [address] [place] [address] Dr. Jose Rojas Clarity (U) CLOUDY Abnormal CLEAR [facility] Comment on above: Performed By: #### U A #### [facility] [address] [address] [address] Jose Rojas Color (U) LT. YELLOW Normal YELLOW [facility] Comment on above: Performed By: #### U A #### [facility] [address] [address] [address] Jose Rojas Glucose Ql (U) >[address] [facility] Comment on above: Performed By: #### U A #### [facility] [address] [address] [address] Jose Rojas Hemoglobin Ql (U) MODERATE Abnormal NEGATIVE [facility] Comment on above: Performed By: #### U A #### [facility] [address] [address] [address] Jose Rojas Ketones Ql (U) Negative Normal NEGATIVE [facility] Comment on above: Performed By: #### U A #### [facility] [address] [place] [address] Dr. Jose Rojas LEUKOCYTES MODERATE Abnormal NEGATIVE [facility] Comment on above: Performed By: #### U A #### [facility] [address] [place] [address] Dr. Jose Rojas Nitrite Ql (U) Negative Normal NEGATIVE [facility] Comment on above: Performed By: #### U A #### [facility] [address] [place] [address] Dr. Jose Rojas pH (U) 5.5 [pH] Normal 5-9 [facility] Comment on above: Performed By: #### U A #### [facility] [address] [place] [address] Dr. Jose Rojas SPEC GRAVITY <=1.005 Abnormal 1.005-<=1.0 25 [facility] Comment on above: Performed By: #### U A #### [facility] [address] [place] [address] Dr. Jose Rojas UA PROTEIN Negative Normal NEGATIVE/ TRACE [facility] Comment on above: Performed By: #### U A #### [facility] [address] [place] [address] Dr. Jose Rojas Urobilinogen Qn (U) 0.2 {Ritu'U}/dL Normal 0.2 - 1. 0 [facility] Comment on above: Performed By: #### U A #### [facility] [address] [address] [address] Jose Rojas ECHOCARDIO M/2D COMPLETEon 1 05-31-2021 ECHOCARDIO M/2D COMPLETE Patient: CADEN WILLS Exam Date: 03/30/2022 : 1960 Gender:M Ordering : DR SIMBA KASPER M.D. Admission #: [id number] Family : DR FAHAD ACEVES D.O. Order #: [id number] CLICK HERE TO VIEW EXAM ECHOCARDIOGRAM REPORT [...] Muniz M.D. on 03/31/2022 at 14:44 Normal [facility] BNPon 02-16-2022 Natriuretic peptide B (Bld) [Mass/Vol] 335.0 pg/mL Normal <=900.0 [facility] Comment on above: Performed By: #### B WATER RESOURCES PROGRAM DIRECTOR #### [facility] [address] [place] [address] Dr. Jose Rojas CBC AUTO DIFFon 02-16-2022 BASO # 0.1 103/ul Normal 0.0-0.1 [facility] Comment on above: Performed By: #### D ATCBC #### [facility] [address] [address] [address] Jose Rojas Basophils/100 WBC (Bld) 0.7 % Normal 0.2-2.0 [facility] Comment on above: Performed By: #### D ATCBC #### [facility] [address] [place] [address] Dr. Jose Rojas EO # 0.4 103/ul Normal 0.0-0.7 [facility] Comment on above: Performed By: #### D ATCBC #### [facility] [address] [place] [address] Dr. Jose Rojas Eosinophils/100 WBC (Bld) 3.9 % Normal 0.9-7.0 [facility] Comment on above: Performed By: #### D ATCBC #### [facility] [address] [place] [address] Dr. Jose Rojas Erythrocyte distribution width (RBC) [Ratio] 16.5 % Critically high 11.0-15.0 [facility] Comment on above: Performed By: #### D ATCBC #### [facility] [address] [place] [address] Dr. Jose Rojas Hematocrit (Bld) [Volume fraction] 44.9 % Normal 42.0-54.0 [facility] Comment on above: Performed By: #### D ATCBC #### [facility] [address] [place] [address] Dr. Jose Rojas Hemoglobin (Bld) [Mass/Vol] 14.3 g/dL Normal 14.0-18.0 [facility] Comment on above: Performed By: #### D ATCBC #### [facility] [address] [place] [address] Dr. Jose Rojas IG # 0.33 10e3/ul Critically high 0.00-0.03 [facility] Comment on above: Performed By: #### D ATCBC #### [facility] [address] [place] [address] Dr. Jose Rojas IG % 3.5 % Critically high 0.0-0.5 [facility] Comment on above: Performed By: #### D ATCBC #### [facility] [address] [address] [address] Jose Rojas LYMPH # 1.9 103/ul Normal 1.2-3.8 [facility] Comment on above: Performed By: #### D ATCBC #### [facility] [address] [place] [address] Dr. Jose Rojas Lymphocytes/100 WBC (Bld) 19.8 % Critically low 20.5-60.0 [facility] Comment on above: Performed By: #### D ATCBC #### [facility] [address] [place] [address] Dr. Jose Rojas MCH (RBC) [Entitic mass] 27.1 pg Normal 25.9-34.0 [facility] Comment on above: Performed By: #### D ATCBC #### [facility] [address] [place] [address] Dr. Jose Rojas MCHC (RBC) [Mass/Vol] 31.8 g/dL Normal 29.9-35.2 [facility] Comment on above: Performed By: #### D ATCBC #### [facility] [address] [place] [address] Dr. Jose Rojas MCV (RBC) [Entitic vol] 85.0 fL Normal 80.0-94.0 [facility] Comment on above: Performed By: #### D ATCBC #### [facility] [address] [place] [address] Dr. Jose Rojas MONO # 0.9 103/ul Critically high 0.3-0.8 [facility] Comment on above: Performed By: #### D ATCBC #### [facility] [address] [place] [address] Dr. Jose Rojas Monocytes/100 WBC (Bld) 9.1 % Normal 1.7-12.0 [facility] Comment on above: Performed By: #### D ATCBC #### [facility] [address] [place] [address] Dr. Jose Rojas NEUT # 6.0 103/ul Normal 1.4-6.5 [facility] Comment on above: Performed By: #### D ATCBC #### [facility] [address] [address] [address] Jose Rojas Neutrophils/100 WBC (Bld) 63.0 % Normal 43.0-75.0 [facility] Comment on above: Performed By: #### D ATCBC #### [facility] [address] [address] [address] Jose Rojas Platelet mean volume (Bld) [Entitic vol] 9.2 fL Critically low 9.5-13.5 [facility] Comment on above: Performed By: #### D ATCBC #### [facility] [address] [address] [address] Jose Rojas PLT 485 103/ul Critically high 150-450 [facility] Comment on above: Performed By: #### D ATCBC #### [facility] [address] [address] [address] Jose Rojas RBC 5.28 106/ul Normal 4.70-6.10 [facility] Comment on above: Performed By: #### D ATCBC #### [facility] [address] [address] [address] Jose Rojas WBC 9.6 103/ul Normal 4.0-11.0 [facility] Comment on above: Performed By: #### D ATCBC #### [facility] [address] [address] [address] Jose Rojas EMERSON- BMP WITH LIPIDon 2021 Anion gap [Moles/Vol] 14.3 mmol/L Normal [facility] Comment on above: Performed By: #### D ATBMP #### [facility] [address] [address] [address] Jose Rojas Calcium [Mass/Vol] 9.9 mg/dL Normal 8.5-10.1 [facility] Comment on above: Performed By: #### D ATBMP #### [facility] [address] [address] [address] Jose Rojas Chloride [Moles/Vol] 101 mmol/L Normal 98-107 [facility] Comment on above: Performed By: #### D ATBMP #### [facility] [address] [place] [address] Dr. Jose Rojas Cholesterol [Mass/Vol] 110 mg/dL Normal <=200 [facility] Comment on above: Performed By: #### D ATBMP #### [facility] [address] [address] [address] Jose Rojas Cholesterol in HDL [Mass/Vol] 28 mg/dL Critically low 40-60 [facility] Comment on above: Performed By: #### D ATBMP #### [facility] [address] [place] [address] Dr. Jose Rojas Cholesterol in LDL [Mass/Vol] 21.2 mg/dL Normal [facility] Comment on above: Performed By: #### D ATBMP #### [facility] [address] [place] [address] Dr. Jose Rojas CO2 [Moles/Vol] 28.2 mmol/L Normal 21.0-32.0 [facility] Comment on above: Performed By: #### D ATBMP #### [facility] [address] [place] [address] Dr. Jose Rojas Creatinine [Mass/Vol] 1.14 mg/dL Normal 0.70-1.30 [facility] Comment on above: Performed By: #### D ATBMP #### [facility] [address] [place] [address] Dr. Jose Rojas EGFR-AF PAPUA [place] GUINEAN >60 Normal >=60 [facility] Comment on above: Performed By: #### D ATBMP #### [facility] [address] [place] [address] Dr. Jose Rojsa EGFR-NON AF PAPUA [place] >60 Normal >=60 [facility] Comment on above: Performed By: #### D ATBMP #### [facility] [address] [place] [address] Dr. Jose Rojas Glucose [Mass/Vol] 254 mg/dL Critically high 74-106 [facility] Comment on above: Performed By: #### D ATBMP #### [facility] [address] [address] [address] Jose Rojas HDL NORMAL > or = 60 mg/dl - LO W CARDIOVASCULAR RISK <40 mg/dl - HIGH CARDIOVASCULAR RISK Normal [facility] Comment on above: Performed By: #### D ATBMP #### [facility] [address] [address] [address] Jose Rojas LDL CALC NORMAL SEE BELOW Normal [facility] Comment on above: Result Comment: <100 mg/dl OPTIMAL 100 - 129 mg/dl NEAR OR ABOVE OPTIMAL 130 - 159 mg/dl BORDERLINE HIGH 160 - 189 mg/dl HIGH >190 mg/dl VERY HIGH Performed By: #### D ATBMP #### [facility] [address] [address] [address] Jose Rojas Potassium [Moles/Vol] 4.5 mmol/L Normal 3.5-5.1 [facility] Comment on above: Performed By: #### D ATBMP #### [facility] [address] [address] [address] Jose Rojas Sodium [Moles/Vol] 139 mmol/L Normal 136-145 [facility] Comment on above: Performed By: #### D ATBMP #### [facility] [address] [address] [address] Jose Rojas Triglyceride [Mass/Vol] 304 mg/dL Critically high <=150 [facility] Comment on above: Performed By: #### D ATBMP #### [facility] [address] [address] [address] Jose Rojas Urea nitrogen [Mass/Vol] 21.0 mg/dL Critically high 7.0-18.0 [facility] Comment on above: Performed By: #### D ATBMP #### [facility] [address] [address] [address] Jose Rojas Urea nitrogen/Creatinine [Mass ratio] 18.4 mg/mg Normal [facility] Comment on above: Performed By: #### D ATBMP #### [facility] [address] [address] [address] Jose Rojas VLDL CALC 60.8 mg/dL Normal [facility] Comment on above: Performed By: #### [facility] #### [facility] [address] [address] [address] Jose Rojas Albumin [Mass/volume] in Ser um or PlasmaOrdered By: Yamilex Foster on 02-11-2022 Albumin [Mass/Vol] 3.5 g/dL 3.2-5.5 [facility] Cholesterol [Mass/volume] in Serum or PlasmaOrdered By: Yamilex Foster on 02-11-2022 Cholesterol [Mass/Vol] 96 mg/dL 140-200 [facility] Comment on above: Chol less than 200 m g/dl low riskChol 201-239 mg/dl borderline riskChol 240 mg/dl and greater high risk Cholesterol in LDL Calc [Mas s/Vol]Ordered By: Yamilex Foster on 02-11-2022 Cholesterol in LDL [Mass/Vol] 34 mg/dL 0-100 [facility] Comment on above: LDL ATP III CLASSIFI CATIONLDL less than 100 mg/dL OptimalLDL 100-129 mg/dL Near or above optimalLDL 130-159 mg/dL Borderline highLDL 160-189 mg/dL HighLDL greater than 189 mg/dL Very high Cholesterol in VLDL Calc [Ma ss/Vol]Ordered By: Yamilex Foster on 02-11-2022 Cholesterol in VLDL [Mass/Vol] 28 mg/dL [facility] Creatinine [Mass/volume] in UrineOrdered By: Yamilex Foster on 02-11-2022 Creatinine (U) [Mass/Vol] 49.7 mg/dL [facility] Comment on above: No reference range e stablished Creatinine and Glomerular fi ltration rate.predicted panel (S/P/Bld)Ordered By: Yamilex Foster on 02-11-2022 Creatinine [Mass/Vol] 0.85 mg/dL 0.64-1.27 [facility] Estimated glomerular filtrat ion rate (GFR) non- AmericanOrdered By: Yamilex Foster on 02-11-2022 GFR/1.73 sq M.predicted among non-blacks MDRD (S/P/Bld) [Vol rate/Area] > 60 mL/Min [facility] Globulin Calc (S) [Mass/Vol] Ordered By: Yamilex Foster on 02-11-2022 Globulin (S) [Mass/Vol] 3.2 g/dL [facility] - Chemistry and C hemistry - challengeOrdered By: Yamilex Foster on 02-11-2022 Cobalamin (Vitamin B12) [Mass/Vol] 227 pg/mL 180-914 [facility] No Panel InformationOrdered By: Yamilex Foster on 02-11-2022 Estimated GFR () > 60 mL/Min [facility] Comment on above: GFR estimated refere nce range: According to KDOQI guidelines, <60 ml/min/1.73m2 is sufficient to diagnose a patient with chronic kidney disease. Pharmacy Creatinine Clearance (Chem N/A [facility] Protein [Mass/volume] in Ser um or PlasmaOrdered By: Yamilex Foster on 02-11-2022 Protein [Mass/Vol] 6.7 g/dL 6.1-7.9 [facility] Serum or plasma alanine mccoy otransferase measurement without P-5'-P (enzymatic activiOrdered By: Yamilex Foster on 02-11-2022 ALT No additional P-5'-P [Catalytic activity/Vol] 23 U/L 10-60 [facility] Serum or plasma albumin/glob ulin mass ratioOrdered By: Yamilex Foster on 02-11-2022 Albumin/Globulin [Mass ratio] 1.1 {ratio} [facility] Serum or plasma alkaline elle sphatase measurement (enzymatic activity/volume)Ordered By: Yamilex Foster on 02-11-2022 ALP [Catalytic activity/Vol] 82 U/L 32-92 [facility] Serum or plasma anion gap de terminationOrdered By: Yamilex Foster on 02-11-2022 Anion gap [Moles/Vol] 15.4 mmol/L 6.0-15.0 [facility] Serum or plasma aspartate am inotransferase measurement (enzymatic activity/volume)Ordered By: Yamilex Foster on 02-11-2022 AST [Catalytic activity/Vol] 22 U/L 10-42 [facility] Serum or plasma calcium destiny urement (mass/volume)Ordered By: Yamilex Foster on 02-11-2022 Calcium [Mass/Vol] 9.7 mg/dL 8.2-10.2 [facility] Serum or plasma chloride donato surement (moles/volume)Ordered By: Yamilex Foster on 02-11-2022 Chloride [Moles/Vol] 101 mmol/L 95-114 [facility] Serum or plasma glucose destiny urement (mass/volume)Ordered By: Yamilex Foster on 02-11-2022 Glucose [Mass/Vol] 85 mg/dL 70-100 [facility] Comment on above: ADA recommended refe rence rangeRandom Glucose Reference Range is dependent on time and content of last meal. Glucose of more than 200 mg/dL in a nonstressed, ambulatory subject supports the diagnosis of Diabetes Mellitus. Serum or plasma high density lipoprotein (HDL) cholesterol measurementOrdered By: Yamilex Foster on 02-11-2022 Cholesterol in HDL [Mass/Vol] 34 mg/dL 29-71 [facility] Comment on above: HDL CHOL ATP-III CLA SSIFICATION Cardiovascular RiskHDL > or equal to 60 mg/dL LOWHDL < 40 mg/dL HIGH Serum or plasma potassium me asurement (moles/volume)Ordered By: Yamilex Foster on 02-11-2022 Potassium [Moles/Vol] 4.2 mmol/L 3.5-5.1 [facility] Serum or plasma sodium measu rement (moles/volume)Ordered By: Yamilex Foster on 02-11-2022 Sodium [Moles/Vol] 138 mmol/L 136-146 [facility] Serum or plasma total biliru bin measurement (mass/volume)Ordered By: Yamilex Foster on 02-11-2022 Bilirubin [Mass/Vol] 0.7 mg/dL 0.3-1.2 [facility] Serum or plasma total carbon dioxide measurement (moles/volume)Ordered By: Yamilex Foster on 02-11-2022 CO2 [Moles/Vol] 25.8 mmol/L 22.0-30.0 [facility] Serum or plasma total choles terol/high density lipoprotein (HDL) cholesterol mass ratOrdered By: Yamilex Foster on 02-11-2022 Cholesterol.total/Radha sterol in HDL [Mass ratio] 2.8 {ratio} <5.0 [facility] Serum or plasma urea nitroge n measurement (mass/volume)Ordered By: Yamilex Foster on 02-11-2022 Urea nitrogen [Mass/Vol] 16 mg/dL 9-23 [facility] Triglyceride [Mass/volume] i n Serum or PlasmaOrdered By: Yamilex Foster on 02-11-2022 Triglyceride [Mass/Vol] 140 mg/dL 35-149 [facility] Comment on above: TRIG ATP III CLASSIF ICATIONTRIG less than 150 mg/dL NormalTRIG 150-199 mg/dL Borderline highTRIG 200-500 mg/dL High TRIG greater than 500 mg/dL Very highStandard traceable to the Center for Disease Conrtrol and Prevention (CDC) test method. Urine microalbumin measureme nt with detection limit of 20 mg/L or less (mass/volume)Ordered By: Yamilex Foster on 02-11-2022 Albumin DL <= 20 mg/L (U) [Mass/Vol] 3.4 mg/dL 0.0-1.8 [facility] Urine microalbumin/creatinin e mass ratioOrdered By: Yamilex Foster on 02-11-2022 Albumin/Creatinine DL <= 20 mg/L (U) [Mass ratio] 68.0 mg/g 0.0-30.0 [facility] Comment on above: 30-300 mg/g indicate s an increased risk for diabetic nephropathy. Greater than 300 mg/g is consistent with clinical nephropathy. (Am. J. Kidney Disease 1995, 25:107) BNPon 12-31-2021 Natriuretic peptide B (Bld) [Mass/Vol] 229.0 pg/mL Normal <=900.0 [facility] Comment on above: Performed By: #### B W[employer] PROGRAM DIRECTOR #### [facility] [address] [address] [address] Jose Rojas CBC AUTO DIFFon 12-31-2021 BASO # 0.1 103/ul Normal 0.0-0.1 [facility] Comment on above: Performed By: #### D ATCBC #### [facility] [address] [place] [address] Dr. Jose Rojas Basophils/100 WBC (Bld) 0.5 % Normal 0.2-2.0 [facility] Comment on above: Performed By: #### D ATCBC #### [facility] [address] [place] [address] Dr. Jose Rojas EO # 0.1 103/ul Normal 0.0-0.7 [facility] Comment on above: Performed By: #### D ATCBC #### [facility] [address] [place] [address] Dr. Jose Rojas Eosinophils/100 WBC (Bld) 1.0 % Normal 0.9-7.0 [facility] Comment on above: Performed By: #### D ATCBC #### [facility] [address] [place] [address] Dr. Jose Rojas Erythrocyte distribution width (RBC) [Ratio] 15.1 % Critically high 11.0-15.0 [facility] Comment on above: Performed By: #### D ATCBC #### [facility] [address] [place] [address] Dr. Jose Rojas Hematocrit (Bld) [Volume fraction] 49.2 % Normal 42.0-54.0 [facility] Comment on above: Performed By: #### D ATCBC #### [facility] [address] [place] [address] Dr. Jose Rojas Hemoglobin (Bld) [Mass/Vol] 16.1 g/dL Normal 14.0-18.0 [facility] Comment on above: Performed By: #### D ATCBC #### [facility] [address] [place] [address] Dr. Jose Rojas IG # 0.07 10e3/ul Critically high 0.00-0.03 [facility] Comment on above: Performed By: #### D ATCBC #### [facility] [address] [place] [address] Dr. Jose Rojas IG % 0.7 % Critically high 0.0-0.5 [facility] Comment on above: Performed By: #### D ATCBC #### [facility] [address] [place] [address] Dr. Jose Rojas LYMPH # 2.1 103/ul Normal 1.2-3.8 [facility] Comment on above: Performed By: #### D ATCBC #### [facility] [address] [place] [address] Dr. Jose Rojas Lymphocytes/100 WBC (Bld) 22.2 % Normal 20.5-60.0 [facility] Comment on above: Performed By: #### D ATCBC #### [facility] [address] [place] [address] Dr. Jose Rojas MANUAL DIFF REQ NO Normal [facility] Comment on above: Performed By: #### D ATCBC #### [facility] [address] [place] [address] Dr. Jose Rojas MCH (RBC) [Entitic mass] 28.0 pg Normal 25.9-34.0 [facility] Comment on above: Performed By: #### D ATCBC #### [facility] [address] [place] [address] Dr. Jose Rojas MCHC (RBC) [Mass/Vol] 32.7 g/dL Normal 29.9-35.2 [facility] Comment on above: Performed By: #### D ATCBC #### [facility] [address] [place] [address] Dr. Jose Rojas MCV (RBC) [Entitic vol] 85.6 fL Normal 80.0-94.0 [facility] Comment on above: Performed By: #### D ATCBC #### [facility] [address] [place] [address] Dr. Jose Rojas MONO # 1.0 103/ul Critically high 0.3-0.8 [facility] Comment on above: Performed By: #### D ATCBC #### [facility] [address] [place] [address] Dr. Jose Rojas Monocytes/100 WBC (Bld) 10.2 % Normal 1.7-12.0 [facility] Comment on above: Performed By: #### D ATCBC #### [facility] [address] [place] [address] Dr. Jose Rojas NEUT # 6.3 103/ul Normal 1.4-6.5 [facility] Comment on above: Performed By: #### D ATCBC #### [facility] [address] [place] [address] Dr. Jose Rojas Neutrophils/100 WBC (Bld) 65.4 % Normal 43.0-75.0 [facility] Comment on above: Performed By: #### D ATCBC #### [facility] [address] [place] [address] Dr. Jose Rojas Platelet mean volume (Bld) [Entitic vol] 9.4 fL Critically low 9.5-13.5 [facility] Comment on above: Performed By: #### D ATCBC #### [facility] [address] [place] [address] Dr. Jose Rojas PLT 353 103/ul Normal 150-450 [facility] Comment on above: Performed By: #### D ATCBC #### [facility] [address] [place] [address] Dr. Jose Rojas RBC 5.75 106/ul Normal 4.70-6.10 [facility] Comment on above: Performed By: #### D ATCBC #### [facility] [address] [place] [address] Dr. Jose Rojas WBC 9.6 103/ul Normal 4.0-11.0 [facility] Comment on above: Performed By: #### D ATCBC #### [facility] [address] [place] [address] Dr. Jose Rojas Covid-19 PCR ([facility])on 12-16 SARS-CoV-2 (COVID-19) RNA PRASHANT+probe Ql (Unsp spec) Not detected Normal NOT DETECTED [facility] Comment on above: Result Comment: When diagnostic [...] for this test is supported by the Computer Operations Technician of Health and Human Service's declaration that [...] longer be used). Performed By: #### C VDTB #### [facility] [address] [place] [address] Dr. Jose Rojas PROF CHEM 8 (BAS METB)on Anion gap [Moles/Vol] 14.0 mmol/L Normal [facility] Comment on above: Performed By: #### H STROPN, BMP #### [facility] [address] [place] [address] Dr. Jose Rojas Calcium [Mass/Vol] 9.5 mg/dL Normal 8.5-10.1 [facility] Comment on above: Performed By: #### H DARIANAPN, BMP #### [facility] [address] [place] [address] Dr. Jose Rojas Chloride [Moles/Vol] 100 mmol/L Normal 98-107 [facility] Comment on above: Performed By: #### H STROPN, BMP #### [facility] [address] [place] [address] Dr. Jose Rojas CO2 [Moles/Vol] 26.9 mmol/L Normal 21.0-32.0 [facility] Comment on above: Performed By: #### H STROPN, BMP #### [facility] [address] [place] [address] Dr. Jose Rojas Creatinine [Mass/Vol] 1.06 mg/dL Normal 0.70-1.30 [facility] Comment on above: Performed By: #### H STROPN, BMP #### [facility] [address] [address] [address] Jose Rojas EGFR-AF PAPUA [place]AN >60 Normal >=60 [facility] Comment on above: Performed By: #### H STROPN, BMP #### [facility] [address] [address] [address] Jose Rojas EGFR-NON AF PAPUA [place] >60 Normal >=60 [facility] Comment on above: Performed By: #### H STROPN, BMP #### [facility] [address] [address] [address] Jose Rojas Glucose [Mass/Vol] 152 mg/dL Critically high 74-106 [facility] Comment on above: Performed By: #### H STROPN, BMP #### [facility] [address] [address] [address] Jose Rojas Potassium [Moles/Vol] 3.9 mmol/L Normal 3.5-5.1 [facility] Comment on above: Performed By: #### H STROPN, BMP #### [facility] [address] [address] [address] Jose Rojas Sodium [Moles/Vol] 137 mmol/L Normal 136-145 [facility] Comment on above: Performed By: #### H STROPN, BMP #### [facility] [address] [address] [address] Jose Rojas Urea nitrogen [Mass/Vol] 19.0 mg/dL Critically high 7.0-18.0 [facility] Comment on above: Performed By: #### H STROPN, BMP #### [facility] [address] [address] [address] Jose Rojas Urea nitrogen/Creatinine [Mass ratio] 17.9 mg/mg Normal [facility] Comment on above: Performed By: #### H STROPN, BMP #### [facility] [address] [address] [address] Jose Rojas TROPONIN, HIGH SENSITIVITYon 12-31-2021 HSTROP 6144.5 pg/mL Critically high 4.0-76.1 [facility] Comment on above: Result Comment: CUT- OFF POINTS HAVE BEEN ESTABLISHED BASED ON THE FOURTH UNIVERSAL DEFINITIONS OF MYOCARDIAL INFARCTION. THE UPPER REFERENCE LIMIT (URL) OF TROPONIN, DEFINED THE 99TH PERCENTILE OF cTnI DISTRIBUTION IN A REFERENCE POPULATION, HAS BEEN CONFIRMED THE DECISION THRESHOLD FOR HI DIAGNOSIS. Performed By: #### H STROPN #### [facility] [facility] [address] [place], [place] [address] Dr. Jose Rojas HSTROP 142.5 pg/mL Critically high 4.0-76.1 [facility] Comment on above: Result Comment: CUT- OFF POINTS HAVE BEEN ESTABLISHED BASED ON THE FOURTH UNIVERSAL DEFINITIONS OF MYOCARDIAL INFARCTION. THE UPPER REFERENCE LIMIT (URL) OF TROPONIN, DEFINED THE 99TH PERCENTILE OF cTnI DISTRIBUTION IN A REFERENCE POPULATION, HAS BEEN CONFIRMED THE DECISION THRESHOLD FOR HI DIAGNOSIS. Performed By: #### H TOMMY, BMP #### [facility] [address] [place], [place] [address] Dr. Jose Rojas XR CHEST 1 Von [...] by: STORM CONDE Date: 2021-12-31 13:54 Normal [facility] XR LSPINE 2_3 VIEWSon 2021 XR LSPINE [...] by: HEAVENLY LOUIS Date: 2021-10-31 08:51 Normal [facility] A1C HEMOGLOBINon 10-21-2021 HbA1c (Bld) [Mass fraction] 7.5 % [facility] Other Glucose - FINGER STICKon Glucose [Mass/Vol] 107 mg/dL [facility] Other HbA1c (Bld) [Mass fraction]o n 10-21-2021 A1C HEMOGLOBIN [employer] Other Urinalysis - AUTOMATEDon Appearance (U) cloudy [employer] Other Bilirubin Ql (U) Negative [facility] Other Color (U) yellow [facility] Other Glucose Ql (U) 500 [employer] Other Hemoglobin Ql (U) moderate [employer] Other Ketones Ql (U) Negative [employer] Other Leukocyte esterase Test strip Ql (U) moderate [facility] Other Nitrite Ql (U) Positive [employer] Other pH (U) 6.0 [pH] [facility] Other Protein Ql (U) trace [employer] Other Specific gravity (U) [Rel density] 1.025 [facility] Other Urobilinogen (U) [Mass/Vol] 0.2 mg/dL [facility] Other Urinalysis - AUTOMATED No [facility] Other Urine Cultureon 08-11-2021 Bacteria identified Cx Nom (U) [facility] Other A1C HEMOGLOBINon 06-29-2021 HbA1c (Bld) [Mass fraction] 7.4 % [facility] Other Glucose - FINGER STICKon Glucose [Mass/Vol] 168 mg/dL [facility] Other HbA1c (Bld) [Mass fraction]o n 06-29-2021 A1C HEMOGLOBIN [employer] Other A1C HEMOGLOBINon 03-24-2021 HbA1c (Bld) [Mass fraction] 6.6 % [facility] Other Glucose - FINGER STICKon Glucose [Mass/Vol] 171 mg/dL [facility] Other HbA1c (Bld) [Mass fraction]o n 03-24-2021 A1C HEMOGLOBIN [employer] Other Vital Signs Date Time Vital Sign Value Performing Clinician Facility 07-11-2023 15:26-0400 Body height 177.8 cm [facility] 07-11-2023 15:26-0400 Body mass index (BMI) [Ratio] 39.4 kg/m2 [facility] 07-11-2023 15:26-0400 Body weight 124.73 kg [facility] 07-11-2023 15:26-0400 Diastolic blood pressure 73 mm[Hg] [facility] 07-11-2023 15:26-0400 Heart rate 73 /min [facility] 07-11-2023 15:26-0400 Systolic blood pressure 117 mm[Hg] [facility] 06-21-2023 16:14-0500 Body height 177.8 cm [facility] 06-21-2023 16:14-0500 Body mass index (BMI) [Ratio] 39.4 kg/m2 [facility] 06-21-2023 16:14-0500 Body weight 124.73 kg [facility] 06-21-2023 16:14-0500 Diastolic blood pressure 65 mm[Hg] [facility] 06-21-2023 16:14-0500 Heart rate 70 /min [facility] 06-21-2023 16:14-0500 Respiratory rate 18 /min [facility] 06-21-2023 16:14-0500 SaO2% (BldA) [Mass fraction] 95 % [facility] 06-21-2023 16:14-0500 Systolic blood pressure 109 mm[Hg] [facility] 06-19-2023 13:05-0500 Body weight 124.29 kg Ligia Colmenares MD Work Phone: [facility] 06-19-2023 13:05-0500 Diastolic blood pressure 68 mm[Hg] Ligia Colmenares MD Work Phone: [facility] 06-19-2023 13:05-0500 Heart rate 68 /min Ligia Colmenares MD Work Phone: [facility] 06-19-2023 13:05-0500 Systolic blood pressure 112 mm[Hg] Ligia Colmenares MD Work Phone: [facility] 04-19-2023 15:30-0500 Body height 177.8 cm Fahad Ball Other [facility] 04-19-2023 15:30-0500 Body mass index (BMI) [Ratio] 39.91 kg/m2 Fahad Ball Other [facility] Other 04-19-2023 15:30-0500 Body weight 126.19 kg Fahad Ball Other [facility] Other 04-19-2023 15:30-0500 Body weight 126.18 kg DO Fahad Ball Work Phone: [facility] 04-19-2023 15:30-0500 Diastolic blood pressure 77 mm[Hg] Fahad Ball Other [facility] 04-19-2023 15:30-0500 Respiratory rate 16 /min Fahad Ball Other [facility] Other 04-19-2023 15:30-0500 Systolic blood pressure 125 mm[Hg] Fahad Ball Other [facility] 03-22-2023 11:46-0500 Blood Pressure Location Antonia BUSH [facility] 03-22-2023 11:46-0500 Diastolic blood pressure 71 mm[Hg] Antonia BUSH [facility] 03-22-2023 11:46-0500 Heart rate 69 /min Antonia BUSH [facility] 03-22-2023 11:46-0500 Systolic blood pressure 111 mm[Hg] Antonia BUSH [facility] 03-08-2023 16:15-0500 Body height 177.8 cm Tondra Mapus Other [facility] 03-08-2023 16:15-0500 Body mass index (BMI) [Ratio] 39.65 kg/m2 Tondra Mapus Other [facility] Other 03-08-2023 16:15-0500 Body weight 125.38 kg Tondra Mapus Other [facility] Other 03-08-2023 16:15-0500 Body weight 125.37 kg DO Fahad Ball Work Phone: [facility] 03-08-2023 16:15-0500 Diastolic blood pressure 72 mm[Hg] Tondra Mapus Other [facility] 03-08-2023 16:15-0500 Respiratory rate 18 /min Tondra Mapus Other [facility] Other 03-08-2023 16:15-0500 SaO2% (BldA) [Mass fraction] 96 % Tondra Mapus Other [facility] Other 03-08-2023 16:15-0500 Systolic blood pressure 127 mm[Hg] Tondra Mapus Other [facility] 01-20-2023 14:45-0400 Body height 177.8 cm Fahad Ball Other [facility] Other 01-20-2023 14:45-0400 Body mass index (BMI) [Ratio] 39.17 kg/m2 Fahad Ball Other [facility] Other 01-20-2023 14:45-0400 Body weight 123.83 kg Fahad Ball Other [facility] Other 01-20-2023 14:45-0400 Diastolic blood pressure 74 mm[Hg] Fahad Ball Other [facility] Other 01-20-2023 14:45-0400 Respiratory rate 18 /min Fahad Ball Other [facility] Other 01-20-2023 14:45-0400 Systolic blood pressure 118 mm[Hg] Fahad Ball Other [facility] Other 11-24-2022 15:30-0400 Body height 177.8 cm Tondra Mapus Other [facility] Other 11-24-2022 15:30-0400 Body mass index (BMI) [Ratio] 39.22 kg/m2 Tondra Mapus Other [facility] Other 11-24-2022 15:30-0400 Body weight 124.01 kg Tondra Mapus Other [facility] Other 11-24-2022 15:30-0400 Diastolic blood pressure 65 mm[Hg] Tondra Mapus Other [facility] Other 11-24-2022 15:30-0400 Respiratory rate 18 /min Tondra Mapus Other [facility] Other 11-24-2022 15:30-0400 SaO2% (BldA) [Mass fraction] 95 % Tondra Mapus Other [facility] Other 11-24-2022 15:30-0400 Systolic blood pressure 109 mm[Hg] Tondra Mapus Other [facility] Other 10-17-2022 15:30-0400 Body height 177.8 cm Fahad Ball Other [facility] Other 10-17-2022 15:30-0400 Body mass index (BMI) [Ratio] 39.6 kg/m2 Fahad Ball Other [facility] Other 10-17-2022 15:30-0400 Body weight 125.19 kg Fahad Ball Other [facility] Other 10-17-2022 15:30-0400 Diastolic blood pressure 66 mm[Hg] Fahad Ball Other [facility] Other 10-17-2022 15:30-0400 Respiratory rate 16 /min Fahad Ball Other [facility] Other 10-17-2022 15:30-0400 Systolic blood pressure 108 mm[Hg] Fahad Ball Other [facility] Other 08-22-2022 16:30-0400 Body height 177.8 cm Tondra Mapus Other [facility] Other 08-22-2022 16:30-0400 Body mass index (BMI) [Ratio] 39.93 kg/m2 Tondra Mapus Other [facility] Other 08-22-2022 16:30-0400 Body weight 126.24 kg Tondra Mapus Other [facility] Other 08-22-2022 16:30-0400 Diastolic blood pressure 70 mm[Hg] Tondra Mapus Other [facility] Other 08-22-2022 16:30-0400 Respiratory rate 18 /min Tondra Mapus Other [facility] Other 08-22-2022 16:30-0400 SaO2% (BldA) [Mass fraction] 94 % Tondra Mapus Other [facility] Other 08-22-2022 16:30-0400 Systolic blood pressure 111 mm[Hg] Tondra Mapus Other [facility] Other 07-18-2022 16:30-0400 Body height 177.8 cm Fahad Ball Other [facility] Other 07-18-2022 16:30-0400 Body mass index (BMI) [Ratio] 40.2 kg/m2 Fahad Ball Other [facility] Other 07-18-2022 16:30-0400 Body weight 127.1 kg Fahad Ball Other [facility] Other 07-18-2022 16:30-0400 Diastolic blood pressure 71 mm[Hg] Fahad Ball Other [facility] Other 07-18-2022 16:30-0400 Respiratory rate 16 /min Fahad Ball Other [facility] Other 07-18-2022 16:30-0400 Systolic blood pressure 117 mm[Hg] Fahad Ball Other [facility] Other 05-19-2022 16:15-0500 Body height 177.8 cm Tondra Mapus Other [facility] Other 05-19-2022 16:15-0500 Body mass index (BMI) [Ratio] 40.79 kg/m2 Tondra Mapus Other [facility] Other 05-19-2022 16:15-0500 Body weight 128.96 kg Tondra Mapus Other [facility] Other 05-19-2022 16:15-0500 Diastolic blood pressure 72 mm[Hg] Tondra Mapus Other [facility] Other 05-19-2022 16:15-0500 Respiratory rate 18 /min Tondra Mapus Other [facility] Other 05-19-2022 16:15-0500 SaO2% (BldA) [Mass fraction] 93 % Tondra Mapus Other [facility] Other 05-19-2022 16:15-0500 Systolic blood pressure 131 mm[Hg] Tondra Mapus Other [facility] Other 05-04-2022 16:30-0500 Body height 177.8 cm Fahad Ball Other [facility] Other 05-04-2022 16:30-0500 Body mass index (BMI) [Ratio] 41.23 kg/m2 Fahad Ball Other [facility] Other 05-04-2022 16:30-0500 Body weight 130.36 kg Fahad Ball Other [facility] Other 05-04-2022 16:30-0500 Diastolic blood pressure 82 mm[Hg] Fahad Ball Other [facility] Other 05-04-2022 16:30-0500 Respiratory rate 20 /min Fahad Ball Other [facility] Other 05-04-2022 16:30-0500 Systolic blood pressure 118 mm[Hg] Fahad Ball Other [facility] Other 10-21-2021 14:45-0400 Body height 177.8 cm Tondra Mapus Other [facility] Other 10-21-2021 14:45-0400 Body mass index (BMI) [Ratio] 40.31 kg/m2 Tondra Mapus Other [facility] Other 10-21-2021 14:45-0400 Body weight 127.46 kg Tondra Mapus Other [facility] Other 10-21-2021 14:45-0400 Diastolic blood pressure 70 mm[Hg] Tondra Mapus Other [facility] Other 10-21-2021 14:45-0400 Respiratory rate 20 /min Tondra Mapus Other [facility] Other 10-21-2021 14:45-0400 SaO2% (BldA) [Mass fraction] 96 % Yamilex Foster Other [facility] Other 10-21-2021 14:45-0400 Systolic blood pressure 110 mm[Hg] Yamilex Foster Other [facility] Other 08-11-2021 15:15-0400 Body height 177.8 cm Celestina Greene Other [facility] Other 08-11-2021 15:15-0400 Body mass index (BMI) [Ratio] 38.74 kg/m2 Celestina Talbotmond Other [facility] Other 08-11-2021 15:15-0400 Body temperature 98.2 [degF] Celestina Talbotmond Other [facility] Other 08-11-2021 15:15-0400 Body weight 122.47 kg Celestina Talbotmond Other [facility] Other 08-11-2021 15:15-0400 Diastolic blood pressure 72 mm[Hg] Celestina Ramona Other [facility] Other 08-11-2021 15:15-0400 Respiratory rate 18 /min Celestina Talbotmond Other [facility] Other 08-11-2021 15:15-0400 SaO2% (BldA) [Mass fraction] 99 % Celestina Talbotmond Other [facility] Other 08-11-2021 15:15-0400 Systolic blood pressure 123 mm[Hg] Cleestina Greene Other [facility] Other 06-29-2021 15:30-0400 Body height 177.8 cm Tondra Mapus Other [facility] Other 06-29-2021 15:30-0400 Body mass index (BMI) [Ratio] 40.89 kg/m2 Tondra Mapus Other [facility] Other 06-29-2021 15:30-0400 Body weight 129.28 kg Tondra Mapus Other [facility] Other 06-29-2021 15:30-0400 Diastolic blood pressure 75 mm[Hg] Tondra Mapus Other [facility] Other 06-29-2021 15:30-0400 Respiratory rate 20 /min Tondra Mapus Other [facility] Other 06-29-2021 15:30-0400 SaO2% (BldA) [Mass fraction] 95 % Tondra Mapus Other [facility] Other 06-29-2021 15:30-0400 Systolic blood pressure 126 mm[Hg] Tondra Mapus Other [facility] Other 03-24-2021 16:15-0500 Body height 177.8 cm Tondra Mapus Other [facility] Other 03-24-2021 16:15-0500 Body mass index (BMI) [Ratio] 40.89 kg/m2 Tondra Mapus Other [facility] Other 03-24-2021 16:15-0500 Body weight 129.28 kg Tondra Mapus Other [facility] Other 03-24-2021 16:15-0500 Diastolic blood pressure 67 mm[Hg] Tondra Mapus Other [facility] Other 03-24-2021 16:15-0500 Respiratory rate 20 /min Tondra Mapus Other [facility] Other 03-24-2021 16:15-0500 SaO2% (BldA) [Mass fraction] 97 % Tondra Mapus Other [facility] Other 03-24-2021 16:15-0500 Systolic blood pressure 115 mm[Hg] Tondra Mapus Other [facility] Other 01-06-2021 15:00-0400 Body height 177.8 cm Tondra Mapus Other [facility] Other 01-06-2021 15:00-0400 Body mass index (BMI) [Ratio] 39.81 kg/m2 Tondra Mapus Other [facility] Other 01-06-2021 15:00-0400 Body weight 125.87 kg Tondra Mapus Other [facility] Other Encounters Encounter Date Encounter Type Care Provider Facility Start: 07-11-2023 End: 07-11-2023 ambulatory [facility] Work Phone: Start: 07-11-2023 End: 07-11-2023 Patient encounter procedure [facility] Work Phone: Start: 06-21-2023 End: 06-21-2023 Patient encounter procedure [facility] Work Phone: Start: 06-19-2023 End: 06-19-2023 Patient encounter procedure Ligia Colmenares MD Work Phone: Cardiology Comment on above: Coronary artery dise ase involving iliamna coronary artery of iliamna heart, unspecified whether angina present (Primary Dx); History of non-ST elevation myocardial infarction (NSTEMI); Hx of CABG; Primary hypertension; Other hyperlipidemia Start: 06-19-2023 End: 06-19-2023 ambulatory [facility] Start: 06-19-2023 Non-patient / Non-visit 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- Start: 04-19-2023 End: 04-19-2023 ambulatory Fahad Ball Other [facility] Other Start: 04-19-2023 Office outpatient vi sit 25 minutes Fahad Ball [facility] Start: 04-19-2023 End: 04-19-2023 Patient encounter procedure DO Fahad Ball Work Phone: [facility] Work Phone: Start: 03-30-2023 End: 03-30-2023 ambulatory Yarelis Santacruz Other [facility] Other Start: 03-30-2023 Telephone encounter Yarelis Begum [facility] Start: 03-28-2023 End: 03-28-2023 ambulatory Yarelis Santacruz Other [facility] Other Start: 03-28-2023 Office outpatient vi sit 15 minutes Yarelis Calvey [facility] Start: 03-22-2023 End: 03-23-2023 ambulatory TONDRA K PAZUS Facility:[facility] Start: 03-22-2023 End: 03-22-2023 Patient encounter procedure Antonia BUSH [facility] Start: 03-08-2023 End: 03-08-2023 Discharged Recurring DO Fahad Ball Work Phone: [facility] Work Phone: Start: 03-08-2023 (DM) Diabetes Yamilex Foster [facility] Start: 03-08-2023 End: 03-09-2023 ambulatory DO Fahad Ball Work Phone: [facility] Other Start: 03-08-2023 End: 03-08-2023 Patient encounter procedure DO Fahad Ball Work Phone: [facility] Work Phone: Start: 02-22-2023 End: 02-22-2023 ambulatory Yarelis Beebealyse Other [facility] Other Start: 02-22-2023 Office outpatient vi sit 15 minutes Yarelis Calvey [facility] Start: 01-20-2023 End: 01-20-2023 ambulatory Fahad Ball Other [facility] Other Start: 01-20-2023 Office outpatient vi sit 15 minutes Fahad Aceves [facility] Start: 12-09-2022 End: 12-09-2022 ambulatory Tondra Mapus Other [facility] Other Start: 12-09-2022 Telephone encounter Tondra Mapus [facility] Start: 12-06-2022 End: 12-06-2022 ambulatory ROBYN JAMIL [facility] Start: 11-25-2022 ambulatory TONDRA MAPUS Facility:[facility] Start: 11-24-2022 (DM) Diabetes Tondra Mapus [facility] Start: 11-24-2022 End: 11-24-2022 ambulatory Tondra Mapus Other [facility] Other Start: 11-24-2022 Telephone encounter Tondra Mapus [facility] Start: 10-17-2022 End: 10-17-2022 ambulatory Fahad Aceves Other [facility] Other Start: 10-17-2022 Encounter for genera l adult medical examination without abnormal findings Fahad Aceves [facility] Start: 10-17-2022 Periodic preventive med est patient 40-64yrs Fahad Aceves [facility] Start: 09-05-[address] FAHAD ACEVES Facili ty:[facility] Start: 08-24-2022 End: 08-25-2022 ambulatory DAMIAN MATHUR Facility:[facility] Start: 08-22-2022 (DM) Diabetes Tondra Mapus [facility] Start: 08-22-2022 End: 08-22-2022 ambulatory Tondra Mapus Other [facility] Other Start: 07-18-2022 End: 07-18-2022 ambulatory Fahad Aceves Other [facility] Other Start: 07-18-2022 Office outpatient vi sit 15 minutes Fahad Aceves [facility] Start: 05-19-2022 (DM) Diabetes Tondra Mapus [facility] Start: 05-19-2022 End: 05-19-2022 ambulatory Tondra Mapus Other [facility] Other Start: 05-04-2022 End: 05-04-2022 ambulatory Fahad Aceves Other [facility] Other Start: 05-04-2022 Office outpatient vi sit 25 minutes Fahad [facility] Start: 04-19-2022 End: 05-04-[address] FAHAD ACEVES Facility:[facility] Start: 04-05-2022 End: 04-06-[address] FAHAD ACEVES Facility:[facility] Start: 03-30-2022 End: 03-31-[address] FAHAD ACEVES Facility:[facility] Start: 02-24-2022 End: 02-25-[address] FAHAD ACEVES Facility:[facility] Start: 02-17-2022 End: 04-19-[address] FAHAD ACEVES Facility:[facility] Start: 02-16-2022 End: 02-17-[address] FAHAD ACVEES Facility:[facility] Start: 02-14-2022 End: 02-14-2022 ambulatory Tondra Mapus Other [facility] Other Start: 02-14-2022 Telephone encounter Tondra Mapus [facility] Start: 02-11-2022 End: 02-11-2022 ambulatory DO Fahad Aceves Work Phone: [facility] Work Phone: Start: 02-11-2022 End: 02-11-2022 Patient encounter procedure DO Fahad Aceves Work Phone: [facility] [place] Start: 02-10-2022 End: 02-11-[address] SIMBA KASPER Facility:[facility] Start: 02-01-2022 Registered Recurring DO Michael Aceves Work Phone: [facility] Start: 02-01-2022 End: 02-01-2022 ambulatory Tondra Mapus Other [facility] Other Start: 02-01-2022 Telephone encounter Tondra Mapus [facility] Start: 01-07-[address] FAHAD ACEVES Facili ty:[facility] Start: 12-31-2021 End: 12-31-2021 ambulatory DARNELL OVALLE Facility:[facility] Start: 12-16-2021 ambulatory DAMIAN MATHUR Faci lity:[facility] Start: 11-15-2021 End: 01-01-[address] FAHAD ACEVES Facility:[facility] Start: 10-29-2021 End: 10-30-[address] FAHAD ACEVES Facility:[facility] Start: 10-21-2021 (DM) Diabetes Tondra Mapus [facility] Start: 10-21-2021 End: 10-21-2021 ambulatory Tondra Mapus Other [facility] Other Start: 09-09-2021 End: 09-10-2021 ambulatory DAMIAN MATHUR Facility:[facility] Start: 08-11-2021 End: 08-11-2021 ambulatory Celestina Greene Other [facility] Other Start: 08-11-2021 Office outpatient vi sit 25 minutes Celestinajcarlos Greene [facility] Start: 06-29-2021 (DM) Diabetes Tondra Mapus [facility] Start: 06-29-2021 End: 06-29-2021 ambulatory Tondra Mapus Other [facility] Other Start: 05-12-2021 End: 05-12-2021 ambulatory Tondra Mapus Other [facility] Other Start: 05-12-2021 Telephone encounter Tondra Mapus [facility] Start: 05-04-2021 End: 05-04-2021 ambulatory Tondra Mapus Other [facility] Other Start: 05-04-2021 Tele[facility] Start: 03-24-2021 (DM) Diabetes Yamilex Foster [facility] Start: 03-24-2021 End: 03-24-2021 ambulatory Yamilex Foster Other [facility] Other Start: 01-06-2021 Nursing evaluation o f patient and report [facility] Date Procedure Procedure Detail Performing Clinician Start: 06-19-2023 Ecg routine ecg w/le ast 12 lds i&r only Ligia Colmenares MD Work Phone: Start: 05-03-2023 Urnls dip stick/tabl et rgnt auto w/o microscopy Bulk Order Provider Start: 12-06-2022 Follow-up visit Follow-up ROBYNTHO CHURCHILLS Start: 12-16-2021 Coronary artery bypa ss grafts x 5 Antonia ELEAZAR Coronary artery bypa ss graft Fahad Aceves Other History of coronary artery bypass grafting Hx of CABG Liiga Colmenares MD Work Phone: Plan of Treatment Date Care Activity Detail Author Start: 04-17-2023 Depression Assessment Depression Assessment [facility] Start: 01-01-2023 Hepatitis B surface antibody level LDL Cholesterol [facility] Start: 12-16-2022 Covid-19 Vaccine ( season) Covid-19 Vaccine () [facility] Start: 12-16-2022 Influenza vaccination Influenza Vaccine (#1) [facility] Start: 07-04-2022 Hemoglobin A1c measurement HbA1C [facility] Start: 2022 RSV Vaccine (1 - 1-dose 60+ series) RSV Vaccine (1 - 1-dose 60+ series) [facility] Start: 2017 Prostate specific antigen measurement Prostate Cancer Screening Discussion [facility] Start: 01-11-2012 Shingrix Vaccine (1 of 2) Shingrix Vaccine (1 of 2) [facility] Start: 2007 Screening for malignant neoplasm of colon [facility] Start: 1981 Urine microalbumin profile DTaP,Tdap,Td Vaccine (1 - Tdap) [facility] Start: 01-11-1980 Annual PCP Team Chronic Disease Visit Annual PCP Team Chronic Disease Visit [facility] Start: 01-11-1980 Hepatitis C screening Hepatitis C Screening [facility] Start: 01-11-1980 HIV screening HIV Screening [facility] Start: 01-11-1972 Diabetic foot examination Diabetic Foot Exam [facility] Start: 01-11-1972 Glaucoma screening Dilated Retinal Exam [facility] Start: 01-11-1972 Hepatitis B screening Urine Albumin:Creatinine Ratio [facility] Start: 01-11-1968 Pneumococcal vaccination Pneumococcal Vaccine (1 of 2 - PCV) [facility] Start: 1962 Covid-19 Vaccine (#1) Covid-19 Vaccine (#1) [facility] Patient Education Diabetes and diet [facility] Work Phone: Immunizations Immunization Date Immunization Notes Care Provider Sam brenner 02-24-2022 COVID-19 Pfizer (bivalent) Fahad Aceves Other [facility] 03-23-2021 COVID-19 Vaccine Pfi zer - Documentation Purposes Only Fahad Aceves Other [facility] 08-03-2020 COVID-19 Vaccine Pfi zer - Documentation Purposes Only Fahad Aceves Other [facility] 07-13-2020 COVID-19 Vaccine Pfi zer - Documentation Purposes Only Fahad Aceves Other [facility] Payers Date Payer Category Payer Unknown [id number] 2015 Private Health [facility] [id number] 2015-Present [phone] [address] [address] [place] [address] HMO [id number] 1960 Unknown [id number] .2.593 1960 Unknown [id number] 2.16.840.1.094397.3.579 .2.593 1960 Unknown [id number] 2.16.840.1.793676.3.579 .2.593 1960 Unknown [id number] 2.16.840.1.457125.3.579 .2.593 1960 Unknown [id number] 2.16.840.1.283881.3.579 .2.593 1960 Unknown [id number] 2.16.840.1.603881.3.579 .2.593 1960 Unknown [id number] 2.16.840.1.318457.3.579 .2.593 1960 Unknown [id number] 2.16.840.1.485587.3.579 .2.593 1960 Unknown [id number] 2.16.840.1.120356.3.579 .2.593 1960 Unknown [id number] 2.16.840.1.649083.3.579 .2.593 1960 Unknown [id number] 2.16.840.1.392079.3.579 .2.593 1960 Unknown [id number] 2.16.840.1.607532.3.579 .2.593 1960 Unknown [id number] 2.16.840.1.235360.3.579 .2.593 1960 Unknown [id number] 2.16.840.1.578189.3.579 .2.593 1960 Unknown [id number] 2.16.840.1.014985.3.579 .2.593 1957 Self-pay [id number] 1957 Unknown [id number] 2.16.840.1.722160.19 Unknown [id number] 2.16.840.1.376860.3.579 .2.593 Unknown [id number] 2.16.840.1.563163.3.579 .2.531 Social History Date Type Detail Facility Unknown if ever smoked [facility] Other Start: 05-03-2023 End: 06-19-2023 Sex Assigned At [facility] Start: 1960 Sex Assigned At Male F [facility] Start: 03-22-2023 End: 06-19-2023 Tobacco smoking status Never smoked tobacco (finding) [facility] Start: 05-03-2023 Tobacco use and exposure Smokeless tobacco non-user [facility] Start: 05-03-2023 End: 06-19-2023 History of Social function [facility] Start: 1960 Sex Assigned At Not on file C [facility] Medical Equipment Procedure Code Equipment Code Equipment Original Text Equi pment Identifier Dates Functional Status Date Assessment Result Facility 03-22-2023 Functional Status N/A [facility] Clinical Notes 01-06-2021 to 06-19-2023 Ligia Colmenares MD - 06/19/2023 1:00 PM ESTTelephone Encounter - Noy Mary RN - 06/14/2023 10:03 AM ESTTelephone Encounter - Noy Mary RN - 06/14/2023 9:44 AM EST Note Date & Type Note Facility 06-19-2023 Note HNO ID: [id number] Author: LIGIA COLMENARES MD Service: ? Author Type: Physician Type: Progress Notes Filed: 06/19/2023 13:23 Note Text: [facility] Department of Cardiovascular Medicine SECTION OF [facility] Consultation requested by No ref. provider found for an opinion regarding Caden Wills. My final recommendations will be communicated back to the requesting physician by way of shared Medical record or letter to requesting physician via US mail. CC: perioperative cardiac risk assessment and establish care HPI: Caden Wills is a (an) 63 year old male who is here today for perioperative cardiac risk assessment prior to undergoing circumcision surgery, this is not an urgent or emergent surgery and the proposed surgery is Ambulatory surgery - Low risk. The patient has the following risk factors: age (male over 45, female over 55), hyperlipidemia, obesity, diabetes, hypertension and at the present time he Denies Active cardiac conditions. 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 The most activity that Mr. Caden Wills can easily do is do heavy work around the house, such as scrubbing floors, lifting or moving heavy furniture (8.00 METs). 12/06/2022 Robyn [facility]gron Card[facility]- [facility] HPI Pleasant 62-year-old man with prior history of coronary disease status post percutaneous intervention to chronically occluded LAD in 2007. Additional history includes diabetes, hypertension and hyperlipidemia. He was admitted in December 2021 to [facility] with chest pain and diagnosed with [...] overall states he is feeling quite well. No past medical history on file. No past surgical history on file. No family history on file. SOCIAL HISTORY Social History Tobacco Use Smoking status: Never Smokeless tobacco: Never ALLERGIES: Patient has no known allergies. CURRENT MEDICATIONS: Current Outpatient Medications Medication Sig insulin glargine U-300 conc (TOUJEO MAX U-300 SOLOSTAR) 300 unit/mL (3 mL) inpn Refills(s) 0 metFORMIN ER (GLUCOPHAGE XR) 500 mg 24 hr tablet Take 1 tablet by mouth every 12 hours. acetaminophen (TYLENOL) 325 mg tablet Take 650 mg by mouth every 6 hours as needed. insulin aspart U-100 (NOVOLOG) 100 unit/mL Inject 25 Units subcutaneously. atorvastatin (LIPITOR) 80 mg tablet Take 80 mg by mouth every evening. aspirin, enteric coated (ASPIRIN, ENTERIC COATED) 81 mg EC tablet Take 81 mg by mouth. metoprolol succinate ER (TOPROL XL) 100 mg TAKE 1 TABLET BY MOUTH IN THE MORNING AND 1 TABLET AT BEDTIME potassium chloride ER (KLOR-CON) 20 mEq tablet Take 20 mEq by mouth. amiodarone (PACERONE) 200 mg tablet Take 1 tablet by mouth every afternoon. omega 6-lxx-snd-fish oil (FISH OIL) 100-160-1,000 mg cap Take 1,000 mg by mouth. bumetanide (BUMEX ORAL) Take by mouth. No current facility-administered medications for this visit. ROS: Card: See present history. Pulm: Negative for cough, hemoptysis, wheezing, COPD, dyspnea or shortness of breath Gastro: No nausea, vomiting, or diarrhea GenUr: No history of dysuria, frequency or incontinence Endo: Negative for cold or heat intolerance, polyuria or polydipsia. Neuro: no focal weakness, focal sensory loss, headache, visual changes, seizure activity, ataxia, speech/language loss. Musculoskeletal: Negative for joint or muscle pain, back pain, or swelling. Infect: no fevers, chills, rigors or night sweats. Skin: Negative for lesions, rash, and itching. Heme: Negative for prolonged bleeding, bruising easily or swollen nodes. The remainder of the review of systems is negative. PHYSICAL EXAMINATION: GENERAL: alert cooperative, pleasant oriented x 3 (self, time and place) in no acute distress BP 112/68 Pulse 68 Wt 124.3 kg (274 lb) BMI 39.31 kg/m? Last 3 Encounter BP Readings: Date: BP: 05/03/2023 137/78 Last 3 Encounter Pulse Readings: Date: Pulse: 05/03/2023 67 Last 3 Encounter Wt Readings: Date: Wt: 05/03/2023 123.4 kg (272 lb 0.8 oz) SKIN: warm, dry, no rash. NECK: supple, no palpable masses, no JVD, carotids well felt, no bruits. CARDIAC: [place] palpable in the 5th intercostal space mid clavicular line, (more content not included)... [facility] 06-19-2023 History of Presen t illness Narrative Images from the original note were not included. [facility] Department of Cardiovascular Medicine [facility] Consultation requested by No ref. provider found for an opinion regarding Caden Wills. My final recommendations will be communicated back to the requesting physician by way of shared Medical record or letter to requesting physician via US mail. CC: perioperative cardiac risk assessment and establish care HPI: Caden Wills is a (an) 63 year old male who is here today for perioperative cardiac risk assessment prior to undergoing circumcision surgery, this is not an urgent or emergent surgery and the proposed surgery is Ambulatory surgery - Low risk. The patient has the following risk factors: age (male over 45, female over 55), hyperlipidemia, obesity, diabetes, hypertension and at the present time he Denies Active cardiac conditions. 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 The most activity that Mr. Caden Wills can easily do is do heavy work around the house, such as scrubbing floors, lifting or moving heavy furniture (8.00 METs). 12/06/2022 Robyn Negron [facility]iology- [facility] HPI Pleasant 62-year-old man with prior history of coronary disease status post percutaneous intervention to chronically occluded LAD in 2007. Additional history includes diabetes, hypertension and hyperlipidemia. He was admitted in December 2021 to [facility] with chest pain and diagnosed with [...] overall states he is feeling quite well. No past medical history on file. No past surgical history on file. No family history on file. SOCIAL HISTORY Social History Tobacco Use Smoking status: Never Smokeless tobacco: Never ALLERGIES: Patient has no known allergies. CURRENT MEDICATIONS: Current Outpatient Medications Medication Sig insulin glargine U-300 conc (TOUJEO MAX U-300 SOLOSTAR) 300 unit/mL (3 mL) inpn Refills(s) 0 metFORMIN ER (GLUCOPHAGE XR) 500 mg 24 hr tablet Take 1 tablet by mouth every 12 hours. acetaminophen (TYLENOL) 325 mg tablet Take 650 mg by mouth every 6 hours as needed. insulin aspart U-100 (NOVOLOG) 100 unit/mL Inject 25 Units subcutaneously. atorvastatin (LIPITOR) 80 mg tablet Take 80 mg by mouth every evening. aspirin, enteric coated (ASPIRIN, ENTERIC COATED) 81 mg EC tablet Take 81 mg by mouth. metoprolol succinate ER (TOPROL XL) 100 mg TAKE 1 TABLET BY MOUTH IN THE MORNING AND 1 TABLET AT BEDTIME potassium chloride ER (KLOR-CON) 20 mEq tablet Take 20 mEq by mouth. amiodarone (PACERONE) 200 mg tablet Take 1 tablet by mouth every afternoon. omega 7-een-nfs-fish oil (FISH OIL) 100-160-1,000 mg cap Take 1,000 mg by mouth. bumetanide (BUMEX ORAL) Take by mouth. No current facility-administered medications for this visit. ROS: Card: See present history. Pulm: Negative for cough, hemoptysis, wheezing, COPD, dyspnea or shortness of breath Gastro: No nausea, vomiting, or diarrhea GenUr: No history of dysuria, frequency or incontinence Endo: Negative for cold or heat intolerance, polyuria or polydipsia. Neuro: no focal weakness, focal sensory loss, headache, visual changes, seizure activity, ataxia, speech/language loss. Musculoskeletal: Negative for joint or muscle pain, back pain, or swelling. Infect: no fevers, chills, rigors or night sweats. Skin: Negative for lesions, rash, and itching. Heme: Negative for prolonged bleeding, bruising easily or swollen nodes. The remainder of the review of systems is negative. PHYSICAL EXAMINATION: GENERAL: alert cooperative, pleasant oriented x 3 (self, time and place) in no acute distress BP 112/68 Pulse 68 Wt 124.3 kg (274 lb) BMI 39.31 kg/m Last 3 Encounter BP Readings: Date: BP: 05/03/2023 137/78 Last 3 Encounter Pulse Readings: Date: Pulse: 05/03/2023 67 Last 3 Encounter Wt Readings: Date: Wt: 05/03/2023 123.4 kg (272 lb 0.8 oz) SKIN: warm, dry, no rash. NECK: supple, no palpable masses, no JVD, carotids well felt, no bruits. CARDIAC: [place] palpable in the 5th intercostal space mid clavicular line, normal S1 and S2, no murmurs, gallops, or rubs. CHEST: Normal respiratory efforts, lungs clear to auscultation bilaterally. ABDOMEN: Soft, no tenderness, rigidity, or masses. No palpable liver or spleen. Normal bowel sounds, no bruits. NEURO: intact cranial nerves II through XII, no motor or sensory deficits in all 4 extremities. EXTREMITIES: No cyanosis, clubbing, or edema. Peripheral pulses well felt. CARDIAC (& OTHER IMPORTANT) TESTING: The following Risk Calculations/Testing (including images and tracings) were personally reviewed by myself: Revised Cardiac Risk Index: - No High-risk surgical procedure (intraperitoneal, intrathoracic, or suprainguinal vascular procedure). - No Ischemic heart disease (history of myocardial infarction, history of or current angina, positive exercise test results, Q waves on electrocardiogram, history of PCI or CABG, ischemic chest pain). - No History of CHF. - No Cerebrovascular disease (history of transient ischemic attack, history of stroke). - No Diabetes mellitus requiring insulin therapy. - No Chronic renal insufficiency (baseline creatinine level of at least 2.0 mg/dL). RCRI score & Equivalent Risk = 0 which is consistant with Low Risk [equivalent to a peioperative risk of 0.4%] The following testing reports were reviewed from the reports only: 03/30/2022 Echo- [facility] Global LV systolic function is difficult to assess but appears preserved, estimated ejection fraction is 55 to 60%, unable to accurately evaluate wall motion abnormalities. Consider contrast study for better delineation of some endocardial borders. Diastolic function is indeterminate. Biatrial enlargement. The right ventricle is normal in size and systolic function. Valves are poorly seen, no significant valvular abnormalities. The ascending aorta is upper normal limits in size. 01/07/2022 CABGx5- [facility] CABG X 5; CPB; LEFT LEG VEIN HARVEST; INTRAOP FREDI Coronary artery bypass grafting x5, AGARWAL to LAD, saphenous vein graft to diagonal and obtuse marginal branches, and saphenous vein graft to PDA and right posterolateral ventricular branch. 01/05/2022 Cardiac Cath- [facility] Mid RCA lesion is 99% stenosed. Prox Cx lesion is 100% stenosed. Mid LAD lesion is 100% stenosed. Prox LAD lesion is 99% stenosed. Final Impression: severe , triple vessel CAD Plan: consult CT surgery for CABG Procedures Performed: coronary angiogram, Left heart cath Procedure Description: The patient was brought to the cardiac catheterization lab in a fasting state. Informed written consent was obtained. He was prepped and draped in usual sterile fashion over the right wrist and bilateral groins. Time-out was performed. He was given Versed and fentanyl for sedation. 1% lidocaine was infiltrated over the right radial artery. A 6-[employer]um[employer] Glidesheath slender was placed in right radial artery. Radial anti-vasospasm cocktail of verapamil 2.5 mg and nitroglycerin 200 mcg was administered through the sheath. All catheter exchanges were made over the [employer] guidewire. JL3.5 was used to engage the LM. JR5 was used to engage the RCA. Coronary angiogram was performed in multiple orthogonal views. At the end of the procedure, all catheters and wires were removed. The right radial sheath was removed and a Quickclot band was applied to obtain hemostasis. Hemodynamic Data: LVEDP 16 mmHg Specimens Removed: None Complications: None Coronary Angiogram: LM: patent LAD: prox LAD 99% Mid LAD 100% occlusion within previous stent Faint collaterals filling distal LAD Large D1 is patent with proximal 70% stenosis LCX: 100% proximal occlusion OM1 is seen filling distally via collaterals RCA: large vessel, dominant Mid RCA 99% thrombotic stenosis NABOR II flow to distal RCA Right PDA and WIN are both large and patent Possible thrombus in proximal right WIN Distal right WIN has diffuse 70% stenosis Coronary Findings Diagnostic Dominance: Right No diagnostic findings have been documented. Intervention No interventions have been documented. LABS: No results found for: CHOL , HDL , LDL , TG No results found for: AST , ALT No results found for: CK No results found for: TSH No results found for: INR No results found for: BNP No results found for: PBNP No components found for: MAGNESIU No results found for: HSCRP No results found for: HB , HCT , WBC , PLT No results found for: GLUC , K , NA , CHLOR , CO2 , CREAT , BUN , ANION , CA ASSESSMENT/PLAN: 1. Perioperative Cardiac Risk Assessment: Mr. Caden Christina Is to undergo circumcision surgery which is not an urgent or emergent surgery and the proposed surgery is Ambulatory surgery - Low risk,his/her calculated RCRI is 0 which is consistent with LOW RISK, the patient can achieve a physical activity equivalent to 8 METs which is consistant with High (>7) METs. Taking all of the above into consideration including the patient's Clinical Characteristics (History, Physical Examination, physical activity and Risk Score Calculation) and Investigations, the patient is considered to be at LOW RISK for perioperative cardiac events (< 1% chance of , HI, CHF, malignant ventricular arrhythmias or high grade AV block) and I would recommend proceeding ahead with the circumcision surgery as planned. 2. Coronary artery disease status post angioplasty and stenting of the LAD [2007], status post Coronary artery bypass grafting x5, AGARWAL to LAD, saphenous vein graft to diagonal and obtuse marginal branches, and saphenous vein graft to PDA and right posterolateral ventricular branc [2021]: Currently on statins, beta-blockers and aspirin and is asymptomatic, continue unchanged. 3. Hypertension: Blood pressure is controlled, continue current medical regimen unchanged. 4. Hyperlipidemia: On Lipitor 80 mg at bedtime, there is no cholesterol on file as the patient follows up with an outside carbonator. 5. Diabetes mellitus: Managed by PCP. 6. Obesity: Discussion deferred. 7. Follow-up as needed. The above information was discussed at length with the patient including review of all laboratory, ultrasound and radiographic studies (if these were done and available at the time), along with benefits/risks of various management options available to the patient. He/She was given ample time to ask questions and at the conclusion of the visit the patient clearly understood the plan of management, had no further questions and was satisfied with the time and care provided. The patient was instructed to call if any questions arise or if the medical condition changes prior to the follow up visit. Ligia Colmenares MD, FACC, [facility] CC: To use this Smartlink, specify the provider ID whose address you want to display, e.g., .[email or web address][1 (where 1 is the provider ID). documented in this encounter [facility] 06-19-2023 Note [facility] Subjective Caden Wills is a 63 y.o. year old male patient being seen for 6 mo follow up CAD, chronic systolic heart failure, hypertension, and hyperlipidemia. Had lipid panel in Dec 2022, and repeat lipid drawn this morning. Doing well from cardiac standpoint, as he denies chest pain, SOB, and palpitations. Patient Active Problem List Diagnosis Chest pain NSTEMI (non-ST elevated myocardial infarction) (CMS/HCC) Obesity Diabetes mellitus, type II, insulin dependent (CMS/HCC) Respiratory insufficiency Hypomagnesemia Hypertension Hyperlipidemia Postoperative atrial fibrillation (CMS/HCC) 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 without angina pectoris Chronic systolic heart failure (CMS/HCC) History of coronary artery bypass graft Acquired buried penis Erectile dysfunction associated with type 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 (CMS/HCC) Scarring of penis Family History Problem Relation Name Age of Onset Coronary artery disease Father Social History Tobacco Use Smoking status: Never Smokeless tobacco: Never Vaping Use Vaping Use: Never used Substance Use Topics Alcohol use: Not Currently Alcohol/week: 2.0 standard drinks of alcohol Types: 2 Cans of beer per week Drug use: Never HPI This is a 63-year-old man with prior history of coronary disease status post percutaneous intervention to chronically occluded LAD in 2007. Additional history includes diabetes, hypertension and hyperlipidemia. He was admitted in December 2021 to [facility] with chest pain and diagnosed with [...] his ECG showed normal sinus rhythm. I saw him on 01/31/2022. At that time [...] recurrence of atrial fibrillation. Meanwhile continue Eliquis. I last saw him on 05/23/2022 and due to absence of recurrence of atrial fibrillation I stopped Eliquis and amiodarone and kept him on aspirin. I also started him on clopidogrel which he continued for a total of 1 year after his NSTEMI and this was stopped and later follow-up. Of note his follow-up echocardiogram in December 2021 showed normalization of ventricular systolic function. Today he reports that he has been doing well. He has no angina. He appears to be in NYHA class II symptoms at this time. He does not have lower extremity edema. He denies palpitations. He continues to take potassium twice daily. Today's blood testing shows LDL is at target after adding ezetimibe 10 mg daily. Review of Systems Cardiovascular: Positive for leg swelling. All other systems reviewed and are negative. Objective Visit Vitals BP 114/74 (BP Location: Right arm, Patient Position: Sitting) Pulse 71 Ht 1.778 m (5' 10 ) Wt 124 kg (274 lb) SpO2 95% BMI 39.31 kg/m??? Smoking Status Never BSA 2.47 m??? Physical Exam Constitutional: Appearance: He is [...] oriented to person, place, and time. Psychiatric: (more content not included)... [facility] 06-14-2023 Miscellaneous Notes error documented in this encounter [facility] 06-14-2023 Miscellaneous Notes Called Caden Wills and [facility] to confirm surgery date of 07/[address] Alberto. Discussed pre op testing on 07/26 in [place], or he could make two trips. Asked him to confirm Asked patient to confirm receipt, and voice any questions or concerns. Number provided. Noy Mary RN documented in this encounter [facility] 05-03-2023 Note HNO ID: [id number] Author: JIAN ALBERTO MD Service: ? Author Type: Physician Type: Progress Notes Filed: 05/03/2023 14:28 Note Text: [facility] NEW PATIENT HISTORY AND PHYSICAL EXAM PATIENT INFO: Caden Wills 63 year old REFERRING M.D.: Antonia Bush MD [address] [place] [id number] This consult was requested by Dr. Bush for an opinion regarding buried penis and erectile dysfunction, and my final recommendations will be communicated to the requesting health care provider by way of the shared medical record for internal providers or letter via the [employer] for external providers. 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 , interested in future sexual life. [...] of the sc (more content not included)... [facility] 05-03-2023 Note Patient Outreach (UR OLMN) CADEN WILLS ([id number]) 1960 M Date Time Provider Department 05/03/23 JIAN ALBERTO During your visit today, we recorded the following information about you: Allergies As of Date: 05/03/2023 (No Known Allergies) Date Reviewed: 05/03/2023 Reviewed by: Claudia Burt O[facility] - Fully Assessed Visit Diagnosis:Screening for genitourinary condition [Z13.89] Order(s):URINALYSIS, REFLEX MICROSCOPIC [DZW0889] Order #: [id number]. #:[id number] Prescriptions as of 05/08/2023 - metFORMIN ER [...] tablet by mouth every afternoon. - omega 9-bpp-gxg-fish oil (FISH OIL) 100-160-1,000 mg cap Take 1,000 mg by mouth. - bumetanide (BUMEX ORAL) Take by mouth. Problem List As Of Date 05/03/2023 Noted Resolved Acquired buried penis [N48.83] 05/03/2023 Scarring of penis [N48.6] 05/03/2023 Erectile dysfunction associated with type 2 beverley*05/03/2023 Encounter Status:Closed by [employer], PRODUSER on 05/08/23 [facility] 05-02-2023 Evaluation note Encounter Date Diagnosis Assessment Notes Apr, Subungual hematoma of finger of right hand, initial encounter (ICD-10 - S60.10XA) Patient instructed on washing with soap and applying ointment to help soften remaining callused area. Progress activity as tolerated [facility] Other 01-03-2024 Evaluation note* Encounter Date Diagnosis [...] are maintaining regular scheduled appts with their carbonator. Post operative AF Amiodarone and Eliquis d/c [...] to arterial insufficiency (ICD-10 - N52.01) Dr. Bush offered injections. Referred to [facility] for evaluation and treatment [facility] Other 12-12-2023 Evaluation note* Encounter Date Diagnosis Assessment Notes Treatment Notes Treatment Clinical Notes Mar, Subungual hematoma of finger of right hand, initial encounter (ICD-10 - S60.10XA) Patient instructed on washing with soap and applying ointment to help soften scab area. [facility] Other 12-06-2023 Hospital Discharge instructions Patient Education [...] Follow these instructions at home: Medicines Take eept-jot-cndzjhe and prescription medicines only as told by [...] provider. Document Revised: 06/30/2021 Document Reviewed: 06/30/2021 [employer] Patient Education 2022 [employer]. Follow Up Care 11/25/2022 08:22:24 With:ELEAZAR BARR, Antonia Sharma, URL Address: [address] [place] [address]- When: Unknown [facility] 11-22-2023 Evaluation note* Encounter Date Diagnosis Assessment Notes Treatment Notes Treatment Clinical Notes Feb, Type 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 with hyperglycemia (ICD-10 - E11.65) 1. Uncontrolled, a Type 2 diabetes with A1c of 7.2% 2. Blood glucose levels according to shivani 2 cgm download 02/23/23-11/22/23: Avg glucose 183. >250- 7%, >180-46%, 70-180-47 [...] diabetes medication issues. 6. Prescriptions: VERNA FOSTER: Sample chris ramos x1 pen given today. 7. Prescriptions will not be filled unless you are compliant with follow up appointments or have a follow up appointment scheduled as ordered by your provider. Refills should be requested at the time of your visit. Feb, Dietary counseling and surveillance (ICD-10 - Z71.3) see above Feb, HTN (hypertension) (ICD-10 - I10) On arb. Feb, long term current use of insulin (ICD-10 - Z79.4) [...] BMI 39.0-39.9,adult (ICD-10 - Z68.39) see above [employer] Other 11-08-2023 Evaluation note* Encounter Date Diagnosis Assessment Notes Treatment Notes Treatment Clinical Notes Feb, Subungual hematoma of finger of right hand, initial encounter (ICD-10 - S60.10XA) Patient instructed to continue with daily soaking. Keep covered while at work [employer] Other 10-25-2023 NoteIn light of elevated lipid levels- LDL > 50-70 I added zetia to regime. Will repeat lipid level again in 3 months. Staff to notify pt Robyn Negron NP Division of Cardiology, [facility]- [phone] Pager- [phone] Email- [email or web address] Evaluation note* Encounter Date Diagnosis Assessment Notes Treatment Notes Treatment Clinical Notes Jan, Crushing injury of right index finger, initial encounter (ICD-10 - S67.190A) Elevated and rest. XR for FB, abscess, fx Jan, Abscess of finger of right hand (ICD-10 - L02.511) Warm soaks and elevate. Begin antibiotics. Jan, Type 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 with hyperglycemia (ICD-10 - E11.65) Increases risk of serious infection. [employer] Other 10-02-2023 NoteReviewed labs from 01/10/23 Pt is currently on lipitor 80 mg daily therefore will add zetia to regime for better Lipid management Repeat lipid level in 2-3 months. Robyn Negron WATER RESOURCES PROGRAM DIRECTOR Division of Cardiology, [facility] [phone] Pager- [phone] Email- [email or web address] Evaluation note* Encounter Date Diagnosis Assessment Notes Treatment Notes Treatment Clinical Notes Nov, Type 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 with hyperglycemia (ICD-10 - E11.65) [employer] Other 08-22-2023 NoteRemains stableUnSouthern [facility]08-22-2023 NoteresolvedUnSouthern [facility] 12-06-2022 NoteHypertension is well controlled 102/63 Renal function stableUnSouthern [facility] Medical Center08-22-2023 NoteContinue statin and repeat LFT and lipid level.[facility] 12-06-2022 NoteCoronary artery disease is stable without concerning symptoms Continue GDMT- asa, lipitor and toprol continue risk factor modifications- heart healthy diet, regular exercise as tolerated and continue all medications.[facility] 12-06-2022 NoteNYHC II Continue GDMT- ASA, lipitor, farxiga, entresto, aldactone and toprol Diuretic therapy- farxiga and he remains euvolemic currently Monitor daily weights, I&O, fluid restriction 1.5-2L/day, renal function and electrolytes-[facility]08-22-2023 NoteUTP CARDIOLOGY PROGRESS NOTE HPI: Caden Wills is a 62 y.o. male here for Follow-up (6 month follow up ) HPI Pleasant 62-year-old man with prior history of coronary disease status post percutaneous intervention to chronically occluded LAD in 2007. Additional history includes diabetes, hypertension and hyperlipidemia. He was admitted in December 2021 to [facility] with chest pain and diagnosed with [...] and are negative. Previous HPI per Dr Kasper HPI This is a 62-year-old man with prior history of coronary disease status post percutaneous intervention to chronically occluded LAD in 2007. Additional history includes diabetes, hypertension and hyperlipidemia. He was admitted in December 2021 to [facility] with chest pain and diagnosed with [...] facility-administered medications on file (more content not included)...[facility]08-14-2023 Reason for visit NarrativeTKM - REFERRAL UROLOGY - NEED TO INFORM PATIENT 11/28/22[facility] [employer] Other 08-10-2023 Evaluation note* Encounter Date Diagnosis Assessment Notes Treatment Notes Treatment Clinical Notes Nov, Type 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 with hyperglycemia (ICD-10 - E11.65) 1. Controlled, a Type 2 diabetes with A1c of 6.6% 2. Blood glucose levels according to Temnos 2 cgm download 11/11/22-11/24/22: Avg glucose 172. [...] hyperglycemia, or diabetes medication issues. 6. Prescriptions: [facility] KRISTIN: Sample shivani 2 cgm given today. 7. Prescriptions will not be filled unless you are compliant with follow up appointments or have a follow up appointment scheduled as ordered by your provider. Refills should be requested at the time of your visit. Nov, Dietary counseling and surveillance (ICD-10 - Z71.3) see above Nov, HTN (hypertension) (ICD-10 - I10) On arb. Nov, [facility] current use of insulin (ICD-10 - Z79.4) [...] dysfunction (ICD-10 - N52.9) referral to urology [employer] Other 08-10-2023 Evaluation note* Encounter Date Diagnosis Assessment Notes Treatment Notes Treatment Clinical Notes Nov, Erectile dysfunction (ICD-10 - N52.9) [facility] Other 07-03-2023 Evaluation note* Encounter Date Diagnosis [...] are maintaining regular scheduled appts with their carbonator. No bleeding complications Oct, Type 2 diabetes [...] (ICD-10 - Z12.5) Yearly LADAN and PSA [employer] Other 05-08-2023 Evaluation note* Encounter Date Diagnosis Assessment Notes Treatment Notes Treatment Clinical Notes August, Type 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 with hyperglycemia (ICD-10 - E11.65) 1. Controlled, a Type 2 diabetes with A1c of 6.5% 2. Blood glucose levels according to Temnos 2 cgm download 08/09/22-08/22/22: Avg glucose 157. [...] diabetes medication issues. 6. Prescriptions: VERNA KRISTIN: None at this time. 7. Prescriptions will not be filled unless you are compliant with follow up appointments or have a follow up appointment scheduled as ordered by your provider. Refills should be requested at the time of your visit. August, Dietary counseling and surveillance (ICD-10 - Z71.3) see above August, HTN (hypertension) (ICD-10 - I10) On arb. August, long term current use of insulin (ICD-10 - Z79.4) [...] last visit, continue with weight loss efforts [employer] Other 04-03-2023 Evaluation note* Encounter Date Diagnosis Assessment Notes Treatment Notes Treatment Clinical Notes Jul, ASHD (arteriosclerot ic heart disease) (ICD-10 - I25.10) This patient is stable without activity related CP, dyspnea or lightheadedness. They are instructed to continue exercise and AHA diet plan. Instructed to continue exercise 2-3x weekly. After completiong CR plans on continuing at [facility] Jul, Primary hypertension (ICD-10 - [...] (coronary artery bypass graft) (ICD-10 - Z95.1) [employer] Other 02-02-2023 Evaluation note* Encounter Date Diagnosis Assessment Notes Treatment Notes Treatment Clinical Notes May, Type 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 with hyperglycemia (ICD-10 - E11.65) 1. Controlled, a Type 2 diabetes with A1c of 6.9% 2. Blood glucose levels according to Temnos 2 cgm download 05/06/22-05/19/22: Avg glucose 189. [...] carbs while at work. He will see carbonator Monday to see if he will be [...] (hypertension) (ICD-10 - I10) On arb. May, [facility] current use of insulin (ICD-10 - Z79.4) May, Mixed hyperlipidemia (ICD-10 - E78.2) 01/2022 LDL 34 on statin- at target May, BMI 40.0-44.9, adult (ICD-10 - Z68.41) May, Vitamin B 12 deficiency (ICD-10 - E53.8) 02/05 vit b 12 227 at target May, Albuminuria (ICD-10 - R80.9) 02/05 m/a cr ratio 68. Reviewed importance of glucose/bp control to prevent further nephropathy [employer] Other 01-18-2023 Evaluation note* Encounter Date Diagnosis [...] may warrant EGD to r/o H. Pylori [facility] Other 11-11-2022 NotePROCEDURE: XR FOOT RT MIN 3 VIEWS [...] Electronically authenticated by: HEAVENLY LOUIS Date: 2022-02-25 06:39[facility]07-07-2022 Evaluation note* Encounter Date Diagnosis Assessment Notes Treatment Notes Treatment Clinical Notes Oct, Type 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 with hyperglycemia (ICD-10 - E11.65) 1. Uncontrolled, a Type 2 diabetes with A1c of 7.5% 2. Blood glucose levels above target. According to Temnos 2 cgm download 10/08/21-10/21/21: Avg glucose 197. [...] (hypertension) (ICD-10 - I10) On jonathan. Oct, long term current use of insulin (ICD-10 - Z79.4) Oct, Mixed hyperlipidemia (ICD-10 - E78.2) 11/2020 LDL 97.6 Triglycerides 347, on fenofibrate, Recommend moderate intensity statin f/u with pcp for further recommendation. Oct, BMI 40.0-44.9, adult (ICD-10 - Z68.41) 4 pound weight loss from last visit, continue with weight loss efforts Oct, Vitamin B 12 deficiency (ICD-10 - E53.8) [employer] Other 04-27-2022 Evaluation note* Encounter Date Diagnosis [...] days. Jul, Hematuria, unspecified (ICD-10 - R31.9) [employer] Other 03-15-2022 Evaluation note* Encounter Date Diagnosis Assessment Notes Treatment Notes Treatment Clinical Notes Jun, Type 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 with hyperglycemia (ICD-10 - E11.65) 1. Uncontrolled, a Type 2 diabetes with A1c of 7.4% 2. Blood glucose levels above target. According to MON[place]J cgm download 06/16/21-06/29/21: Avg glucose 172. >250- [...] (hypertension) (ICD-10 - I10) On jonathan. Jun, long term current use of insulin (ICD-10 - Z79.4) Jun, Mixed hyperlipidemia (ICD-10 - E78.2) 11/2020 LDL 97.6 Triglycerides 347, on fenofibrate, Recommend moderate intensity statin f/u with pcp for further recommendation. Jun, BMI 40.0-44.9, adult (ICD-10 - Z68.41) see above [facility] Other 01-18-2022 Evaluation note* Encounter Date Diagnosis Assessment Notes Treatment Notes Treatment Clinical Notes Apr, Type 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 with hyperglycemia (ICD-10 - E11.65) [employer] Other 12-08-2021 Evaluation note* Encounter Date Diagnosis Assessment Notes Treatment Notes Treatment Clinical Notes Mar, Type 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 with hyperglycemia (ICD-10 - E11.65) 1. Controlled, a Type 2 diabetes with A1c of 6.6% 2. Blood glucose levels improved from last visit. According to Temnos 2 cgm download 03/11/21-03/24/21: Avg glucose 162. >250- 1%, >180-29%, 70-180-70%, <70-0%, <54-0%. CV 22.5%. Reviewed download with pt. readings above target from missed meal dose or late meal dose. Discussed with pt trial lyumjev which he could take 5 minutes before meal up to 20 minutes after meal. He is agreeable, reviewed this would take place of [employer]. He verbalizes understanding. Pt with history of [...] (hypertension) (ICD-10 - I10) On jonathan. Mar, long term current use of insulin (ICD-10 - Z79.4) Mar, Mixed hyperlipidemia (ICD-10 - E78.2) 11/2020 LDL 97.6 Triglycerides 347, on fenofibrate, Recommend moderate intensity statin. Mar, BMI 40.0-44.9, adult (ICD-10 - Z68.41) see above [employer] Other 09-22-2021 Evaluation note* Encounter Date Diagnosis Assessment Notes Treatment Notes Treatment Clinical Notes Dec, Type 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 with hyperglycemia (ICD-10 - E11.65) Erwin came in today for evaluation of his Shivani report after returning to work and continuing to use the device. Erwin is happy with the system and wants us to send a prescription to [facility] in [place]. Erwin's BG has averaged 163 for the last 14 days, 69% in range, 27% high, 4% very high, and 0% low. He had a few moments of BG below 70 but stated that he only felt low one time. He has been taking his insulin more often. Yamilex Foster APRN and I discussed the patient's report [...] for snack at MidNight. No further changes. Valery JOSEPH, DIGITAL TECH-C, BC-ADM [facility] Other Evaluation + Plan [facility]Exec[facility] Evaluation noteNo InformationNortGeisinger [facility] Other Evaluation noteNo assessment information available [facility] Work Phone: Evaluation note* Diagnosis Screening for genitourinary condition Screening for other and unspecified genitourinary condition documented in this encounter [facility]* Diagnosis 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, unspecified whether angina present- Primary History of non-ST elevation myocardial infarction (NSTEMI) Old myocardial infarction Hx of CABG Postsurgical aortocoronary bypass status Primary hypertension Unspecified essential hypertension Other hyperlipidemia documented in this encounter [facility]* Diagnosis Onset Date Resolution Status BMI 39.0-39.9,adult acute Dietary counseling and surveillance acute Mixed hyperlipidemia acute Vitamin B 12 deficiency acut e Chronic HFrEF (heart failure with reduced ejection fraction) acute Hypertension acute Ischemic cardiomyopathy acut e Paroxysmal atrial fibrillation acute Type 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 with diabetic polyneuropathy acute Type 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 with hyperglycemia acute [facility] Work Phone: History general Narrative - Reported* Type Description Date Medical History diabetes mellitus Medical History hypertension Medical History pancreatitis Medical History HLP Medical History R foot ulcer Surgical History heart stent Surgical History RIGHT FOOT SECOND TOE AMPUTATED 07/03 Hospitalization History see above Hospitalization History Gastric issues 03/2017 [facility] Other Hismmwa general Narrative - Reported* Type Description Date Medical History diabetes mellitus Medical History hypertension Medical History pancreatitis Medical History HLP Medical History R foot ulcer Surgical History heart stent Surgical History RIGHT FOOT SECOND TOE AMPUTATED 07/03 Surgical History 5 Bypass surgery [facility] 12/31/2021 Hospitalization History see above Hospitalization History Gastric issues 03/2017 [facility] Other Hishcyj general Narrative - Reported* Type Description Date Medical History Heart failure with preserved eje ction fraction Medical History Acute prostatitis Medical History ASHD (arteriosclerotic heart dis ease) Medical History Balanitis Medical History Transient atrial fibrillation Medical History Unspecified open wou nd of unspecified toe(s) with damage to nail, subsequent encounter Medical History Type 2 diabetes david itus with diabetic polyneuropathy, unspecified whether rat exterminator insulin use Medical History [facility] current use of insulin Medical History S/P [...] versity Espinosa, CABG.4-5 VESSELS 12/31/2021 Surgical History [facility] PTCA/STENT LAD 2007 Surgical History COLONOSCOPY Hospitalization History see above Hospitalization History Gastric issues 03/2017 [facility]21 [facility] Other Hospital course Narrative No data available for this section [facility] Progress note No data available for this section [facility] Reason for referral (narrative) Referred by: Antonia BUSH MD [facility] Repldz for referral (narrative)* Outpatient Procedure (Routine) - Closed Specialty Diagnoses / Procedures Referred By Elda santizo [facility] Diagnoses 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, unspecified whether angina present History of non-ST elevation myocardial infarction (NSTEMI) Hx of CABG Primary hypertension Other hyperlipidemia Procedures ECG COMPLETE ECG ROUTINE ECG W/LEAST 12 LDS W/I&R Ligia Colmenares MD [address] [place] [address] [facility] [address] [place] [address] Referral ID Status Reason Start Date Expiration Date V isits Requested Visits Authorized [id number] Closed Auto-Generate d Referral 06/16/2023 06/15/2024 1 1 [facility] Chief Complaint and Reason for Visit Chief Complaint e11.65 E11.65 Chief Complaint Dm e11.65 6 Month Follow Up 4-5 Weeks Chief Complaint 6 Month Follow Up 4-5 Weeks [employer] FMLA Paperwork Reason for Visit BMI 39.0-39.9,adult Dietary counseling and surveillance Mixed hyperlipidemia Vitamin B 12 deficiency Chronic HFrEF (heart failure with reduced ejection fraction) Hypertension Ischemic cardiomyopathy Paroxysmal atrial fibrillation Type 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 with diabetic polyneuropathy Type 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 with hyperglycemia Advance Directives Advance Directive Response Recorded Date/ [...] finger of right hand (L02.511) Referral Organization [facility] Yola membreno Referring Provider First Name Fahad Referring Provider Last Name Yola Referring Provider Specialty Internal Me luan Referred Organization [facility] Referred Provider Yarelis Santacruz Referred Address [address] [facility] [place],[address] Referred Provider Specialty Orthopedic S urgery Referral [...] Diagnosis 1 Erectile dysfunction (N52.9) Referral Organization [facility] Referring Provider First Name Yamilex Referring Provider Last Name Bull Referring Provider Specialty Nurse Pract itioner Referred Organization Unknown Facility Referred Provider Antonia Bush Referred Provider Specialty Urology Referral Priority Routine Referral Appointment Date 2023-03-22 General Notes Tracie Alvarado 11/15 08:20:19 AM >Spoke to Poonam and patient scheduled for [place] office on 03/22/23 at 11am at [address] [place] [address] [address] [facility] Tracie Alvarado 11/28/2022 09:35:22 AM >Text message sent to patient requesting he call me for Referral details. Tracie Alvarado 11/28/2022 12:00:13 PM >Patient returns my call and is informed of appt. 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 - Other Reason Comments Cardiac Clearance and new patient Specialty Diagnoses / Procedures Referred By Contac t Referred To Contact [facility] Diagnoses 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, unspecified whether angina present History of non-ST elevation myocardial infarction (NSTEMI) Hx of CABG Primary hypertension Other hyperlipidemia Procedures ECG COMPLETE ECG ROUTINE ECG W/LEAST 12 LDS W/I&R Ligia Colmenares MD [address] [place] [address] [facility] [address] [place] [id number] Referral ID Status Reason Start Date Expiration Date V isits Requested Visits Authorized [id number] Closed Auto-Generate d Referral 06/16/2023 06/15/2024 1 1 Care Teams (unrecognized sec tion and content) Team Status: Active Member Role Status Dates Fahad Aceves DO Primary Care Provider Active Team Status: Inactive Member Role Status Dates Yamilex Foster APRN Attending Provider Active Start: March 08, 2023 End: March 08, 2023 Team Status: Inactive Member Role Status Dates Fahad Aceves DO Primary Care Provider Active Start: March 08, 2023 End: March 08, 2023 Yamilex Foster APRN Attending Provider Active Start: March 08, 2023 End: March 08, 2023 Team Status: Inactive Member Role Status Dates Fahad Aceves DO Attending Provider Active Sta rt: April 19, 2023 End: April 19, 2023 Team Status: Inactive Member Role Status Dates Yarelis Santacruz MD Attending Provider Active Start: May 02, 2023 End: May 02, 2023 Team Status: Inactive Member Role Status Dates Fahad Aceves DO Primary Care Provider Active Yamilex Foster APRN Attending Provider Active Team Status: Active Member Role Status Dates Fahad Aceves DO Primary Care Provider Active Yamilex Foster APRN Attending Provider Active Adult Caregiver Relationship Specialty Start Date End Date EleazarMitchelAntonia P [address] [place] [address] Referring Urology 03/25/23 Adult Caregiver Relationship Specialty Start Date End Date Antonia Bush [address] [place] [address] Referring Urology 03/25/23 Adult Caregiver Relationship Specialty Start Date End Date EleazarMitchelAntonia P [address] [place] [address] Referring Urology 03/25/23 Team Status: Active Member Role Status Dates Fahad Aceves DO Primary Care Provider Active Start: June 19, 2023 Yamilex Foster APRN Attending Provider Active Start: June 19, 2023 Team Status: Inactive Member Role Status Dates Fahad Aceves DO Primary Care Provider Active Start: June 21, 2023 End: June 21, 2023 Yamilex Foster APRN Attending Provider Active Start: June 21, 2023 End: June 21, 2023 Team Status: Inactive Member Role Status Dates Fahad Aceves DO Primary Care Provide r, Attending Provider Active Start: July 11, 2023 End: July 11, 2023 Goals (unrecognized section and content) Goals may be documented in a n alternate section (unrecognized sect ion and content) No Status Records FoundNo Status Records FoundNo Status Records FoundNo Status Records FoundNo Status Records Found INFORMATION SOURCE (unrecogn ized section and content) DATE CREATED AUTHOR 08/31/2022 Erum duff DATE CREATED AUTHOR AUTHOR'S ORGANIZ ATION 05/16/2023 [facility] DATE CREATED AUTHOR AUTHOR'S ORGANIZ ATION 06/01/2023 [facility] DATE CREATED AUTHOR AUTHOR'S ORGANIZ ATION 06/19/2023 [facility] DATE CREATED AUTHOR AUTHOR'S ORGANIZ ATION 06/20/2023 [facility] Source Comments (unrecognize d section and content) In the event this informatio n is protected by the Federal Confidentiality of Alcohol and Drug Abuse Patient Records regulations: The Federal rules restrict any use of the information to criminally investigate or prosecute any alcohol or drug abuse patient.[facility] Hospital[facility] the event this information is protected by the Federal Confidentiality of Alcohol and Drug Abuse Patient Records regulations: The Federal rules restrict any use of the information to criminally investigate or prosecute any alcohol or drug abuse patient.[facility] HospitalIn the event this information is protected by the Federal Confidentiality of Alcohol and Drug Abuse Patient Records regulations: The Federal rules restrict any use of the information to criminally investigate or prosecute any alcohol or drug abuse patient.[facility] HospitalIn the event this information is protected by the Federal Confidentiality of Alcohol and Drug Abuse Patient Records regulations: The Federal rules restrict any use of the information to criminally investigate or prosecute any alcohol or drug abuse patient.[facility] FOR RECORDS PERTAINING TO PATIENTS WHO [...] BE BASED ON THE PRIMARY CLINICAL RECORDS. [facility] [employer] [facility]. provides no warranty or guarantee [id number] the accuracy [id number] completeness [phone] in this [id number]
== END 2023-07-14 08:00 | disposition home or self-care (01) ==
LOC: LAB 08:00
PROVIDERS: PCP Internal Medicine
DX: N39.0 Urinary tract infection, site not specified (principal)
CPT/HCPCS: 87086

== ENCOUNTER 2023-11-02 15:43 | Outpatient (OUT) | payer OTHER, SELFPAY ==
[2023-11-02 16:52] LABS: Prostate Specific Antigen Scrn 0.42 ng/mL (<=4.00)
== END 2023-11-02 15:44 | disposition home or self-care (01) ==
LOC: LAB 15:44
PROVIDERS: PCP Internal Medicine; Visit Provider Internal Medicine
DX: Z12.5 Encounter for screening for malignant neoplasm of prostate (principal)
CPT/HCPCS: 36415; G0103

== ENCOUNTER 2024-01-20 11:11 | Outpatient (OUT) | payer OTHER, SELFPAY ==
--- OUTSIDE RECORDS SUMMARY | 2024-01-18 16:12 | XMS_ITS | CCD ---
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 Name Role Phone Yamilex Foster Unavailable Celestina Greene Unavailable DO Fahad Aceves Primary Care Provider [phone] JAKE Foster Attending Provider Fahad Aceves Unavailable DR FAHAD ACEVES Primary Care Unavailable VICKEY LANE Attending Unavailable VICKEY LANE Admitting Unavailable DARNELL OVALLE Attending Unavailable DARNELL OVALLE Admitting Unavailable BALL, DR GUSTAFSON Primary Care Unavailable WEST, DR STORM Coffey Consulting Unavailable KATDARNELL REINOSO Consulting Unavailable BALL, DR GUSTAFSON Admitting Unavailable BALL, DR GUSTAFSON Primary Care Unavailable BALL, DR GUSTAFSON Attending Unavailable HIGHLANDER, DAMIAN Medrano Admitting Unavailable BALL, DR GUSTAFSON Primary Care Unavailable HIGHLDAMIAN SEGUNDO Attending Unavailable HIGHLANDER, DAMIAN Medrano Attending Unavailable BALL, DR GUSTAFSON Primary Care [...] Attending Unavailable MOUKARBEL, DR COTTRELL Admitting Unavailable HIGHLANDER, DAMIAN Medrano Admitting Unavailable BALL, DR GUSTAFSON Primary Care Unavailable HIGHLANDER, DAMIAN Medrano Attending Unavailable Yarelis Santacruz Unavailable YAMILEX FOSTER Primary Care Physician Antonia Bush Unavailable DO Fahad Aceves Primary Care Provider [phone] JAKE Foster Attending Provider [phone] Yamilex Foster Attending Unavailable Yamilex Foster Admitting Unavailable Fahad Aceves Primary Care Unavailable Fahad Aceves DO Primary Care Provider Antonia Bush MD Unavailable Fahad Aceves DO Primary Care Provider YAMILEX FOSTER Referring Unavailable Antonia BUSH Attending Unavailable FAHAD ACEVES Primary Care Unavailable FAHAD ACEVES Primary Care Unavailable LIGIA COLMENARES M.D. Attending Unavailable DARRIAN Vegas, LIGIA Referring Unavailable JIAN ALBERTO Attending UnavailANTONIA Peter Referring Unavailable JIAN ALBERTO Attending UnavailGIOVANNI Carrasquillo Referring Unavailable FAHAD ACEVES Primary Care Unavailable GIOVANNI MULLIGAN Attending Unavailable FAHAD ACEVES Primary Care Unavailable YOLA, FAHAD Torres Primary Care Unavailable JIAN ALBERTO Admitting UnavailJIAN Omalley Attending Unavailabl e MOUKASIMBA BLAKE Attending Unavailable Allergies Allergy Classification Reported Allergen(s) Allergy Type Date of Onset Reaction(s) Facility (20 sources) empagliflozin Drug Allergy [facility] [employer] Other (20 sources) icosapent ethyl Drug Allergy n/v [facility] Other (1 source) empagliflozin Drug Allergy 4 [facility] Repository (1 source) icosapent ethyl Drug Allergy 4 [facility] Repository Medications Current Medications Medication Drug Class(es) Dates Sig (Normalized) Sig (Original) acetaminophen 325 mg oral tablet (11 sources) Start: 01-15-2022 take 2 tablets by mouth every six hours as needed acetaminophen (TYLENOL) 325 mg tablet Take 650 mg by mouth every 6 hours as needed. 01/15/2022 Active Comment on above: Take 650 mg by mouth every 6 hours as needed. amiodarone hydrochloride 200 mg oral tablet (20 sources) Antiarrhythmic Start: 06-21-2023 take 1 tablet by mouth once daily amiodarone (PACERONE) 200 mg tablet Take 1 tablet by mouth once daily. 06/21/2023 Active Start: 03-24-2023 End: 06-19-2023 take 1 tablet by mouth once amiodarone (PACERONE) 200 mg tablet Take 1 tablet by mouth every afternoon. 0 03/24/2023 06/19/2023 Discontinued Comment on above: Take 1 tablet by [facility] every afternoon. Take 1 tablet by [facility] once daily. amoxicillin 875 mg / clavulanate 125 mg oral tablet (2 sources) Penicillin-class Antibacterial Start: 3 take 1 tablet by mouth every twelve [...] Platelet Aggregation Inhibitor, Nonsteroidal Anti-inflammatory Drug Start: 9 Aspirin (Lucio Low Dose Aspirin) 81 mg [...] tablet (20 sources) HMG-CoA Reductase Inhibitor Start: 3 End: 4 take 80 mg by mouth once daily Atorvastatin Active 80 MG PO Daily June 21, 2023 1:00am Comment on above: Take 80 mg by mouth every evening. bumetanide 1 mg oral tablet (14 sources) Loop Diuretic Start: 4 take 1 mg by mouth once daily Bumetanide Active 1 MG PO Daily June 21, 2023 1:00am Start: 04-19-2023 take 1 tablet by mercy every twenty-four hours Bumetanide 1 MG 1 tablet Orally Once a day for 30 days Apr, Active End: 07-27-2023 bumetanide (BUMEX ORAL) Take by mouth. 0 07/27/2023 Discontinued (Discontinued by Patient) bumetanide (BUME X ORAL) Take by mouth. 0 Active take 1 tablet by mouth once benigno y Bumex 1 MG 1 tablet Orally Once a day Active Comment on above: Take by mouth. cephalexin 500 mg oral capsule (1 source) Cephalosporin Antibacterial Start: 07-29-19 End: 08-28-19 24 take 1 capsule by mouth twice daily cephALEXin (KEFLEX) 500 mg capsule Take 1 capsule by mouth two times a day. 60 capsule 0 07/29/2023 08/28/2023 Active Comment on above: Take 1 capsule by mo [facility] two times a day. cinnamon bark 500 mg oral capsule (5 sources) Start: 06-27-19 19 take 1 capsule by mouth twice daily Cinnamon Bark (Cinnamon) 500 mg Capsule Active 500 MG PO Twice daily June 26, 2018 12:00am dapagliflozin 10 mg oral tablet (20 sources) Sodium-Glucose Cotransporter 2 Inhibitor Start: 06-21-19 24 take 1 tablet by mouth once daily in the morning FARXIGA 10 mg tablet Take 10 mg by mouth every morning. 07/02/2023 Active Start: 03-22-2023 Farxiga 10 mg oral tablet Refills(s) 0 Start Date: 03/22/23 Status: Ordered Comment on above: Take 10 mg by mouth every morning. docusate sodium 100 mg oral capsule (1 source) Start: 07-29-2023 End: 08-28-2023 take 1 capsule by mouth twice daily docusate sodium (COLACE) 100 mg capsule Take 1 capsule by mouth two times a day. 60 capsule 0 07/29/2023 08/28/2023 Active Comment on above: Take 1 capsule by mo uth two times a day. ezetimibe 10 mg oral tablet (12 sources) Dietary Cholesterol Absorption Inhibitor Start: 06-21-2023 take 1 tablet by mouth once daily in the morning ezetimibe (ZETIA) 10 mg tablet Take 10 mg by mouth every morning. 07/14/2023 Active Start: 04-19-2023 take 1 tablet by [facility] every twenty-four hours Ezetimibe 10 MG 1 tablet Orally Once a day for 30 days Apr, Active Comment on above: Take 10 mg by mouth every morning. famotidine 40 mg oral tablet (20 sources) Histamine-2 Receptor Antagonist Start: 06-21-2023 take [...] glucose sensor (FreeSt yle Shivani 2 Sensor) (3 sources) Start: 06-21-2023 flash glucose sensor (FreeStyle Shivani 2 Sensor) Active .Route June 21, 2023 1:00am FreeStyle Shivani 2 Sensor - (20 sources) Start: 01-06-2021 FreeStyle Libr e 2 Sensor - as directed In Vitro Change Every 14 days for 84 days Dec, Active FreeStyle Shivani 2 Sensor - CHANGE EVERY 14 DAYS for 84 Active 3 ml insulin glargine 300 unt/ml pen injector (20 sources) Insulin Analog Start: 03-22-2023 insulin glargi ne U-300 conc (TOUJEO MAX U-300 SOLOSTAR) 300 unit/mL (3 mL) inpn Inject 60 Units subcutaneously once daily. 03/22/2023 Active Start: 03-22-2023 insulin glargi ne U-300 conc (TOUJEO MAX U-300 SOLOSTAR) 300 [...] 70/day) Active Comment on above: Refills(s) 0 Inject 60 Units subc utaneously once daily. Insulin Glargine U-300 Conc (4 sources) Start: inject 74 [IU] by subcutaneous injection once daily at bedtime Insulin Glargine U-300 Conc Active 74 UNIT SUBCUT Daily at bedtime November 01, 2023 5:07pm Start: 06-21-2023 End: 11-01-2023 inject 72 [IU] by subcutaneous injection once daily at bedtime Insulin Glargine U-300 Conc Discontinued 72 UNIT SUBCUT Daily at bedtime June 21, 2023 5:18pm November 01, 2023 5:07pm Start: 06-21-2023 inject 72 [IU] by gorman bcutaneous injection once daily at bedtime Insulin Glargine U-300 Conc Active 72 UNIT SUBCUT Daily at bedtime June 21, 2023 5:18pm 3 ml insulin lispro-aabc 100 unt/ml pen injector (20 sources) Insulin Analog Start: 03-22-2023 Clifton Caputo n 100 units/mL injectable solution Refills(s) 0 Start Date: 03/22/23 Status: Ordered Start: 05-04-2021 Clifton LugoPe n 100 UNIT/ML 32 units ac breakfast , 38 supper plus ISS 1: 10 ac, (hs if >200 half dose) (expect daily dose 80 units) Subcutaneous ACHS Apr, Active Insulin Lispro-Aabc (3 sources) Start: 06-21-2023 Insulin Lispro -Aabc Active 0 [...] Start: 02-01-2023 take 1 tablet by mouth three times daily metFORMIN ER (GLUCOPHAGE XR) 500 mg 24 hr tablet Take 1 tablet by mouth three times a day. 02/01/2023 Active Start: 02-01-2023 take 1 tablet by mercy [...] m g Tablet Discontinued 500 MG PO 030June 26, 2018 12:00am June 21, 2023 5:29pm take 1 tablet by [facility] twice daily metFORMIN HCl ER 500 MG TAKE 1 TABLET BY MOUTH TWICE A DAY for 90 Active take 500 mg by mouth four times daily metFORMIN HCl ER 500 MG 500 mg Orally qid Active Comment on above: Take 1 tablet by [facility] every 12 hours. Take 1 tablet by [facility] three times a day. 24 hr metoprolol succinate 100 mg extended release oral tablet (20 sources) beta-Adrenergic Gonzalo Start: 03-05-2023 take 1 tablet by mouth in the morning metoprolol succinate ER (TOPROL XL) 100 mg TAKE 1 TABLET BY MOUTH IN THE MORNING AND 1 TABLET AT BEDTIME 03/05/2023 Active Start: 03-05-2023 take 1 tablet by [facility] in the morning metoprolol succinate ER (TOPROL XL) 100 mg TAKE 1 TABLET BY MOUTH IN THE MORNING AND 1 TABLET AT BEDTIME 0 03/05/2023 Active Comment on above: TAKE 1 TABLET BY [facility] IN THE MORNING AND 1 TABLET AT BEDTIME Multivitamin preparation (5 sources) Start: 06-26-2018 take 1 tablet by mouth once daily Multivitamin Active 1 TAB PO Daily June 25, 2018 11:00pm Start: 06-26-2018 take 1 tablet by [facility] once daily Multivitamin Active 1 TAB PO Daily June 26, 2018 12:00am niacin 500 mg oral tablet (5 sources) Nicotinic Acid Start: 06-26-2018 take 500 mg by mouth once daily at bedtime Niacin Active 500 MG PO Daily at bedtime June 26, 2018 12:00am omega 1-hlf-sol-fish oil (FISH OIL) 100-160-1,000 mg cap (11 sources) omega 5-cbk-ona-fish oil (FISH OIL) 100-160-1,000 mg cap Take 1,000 mg by mouth. Active omega 3-dha-epa- fish oil (FISH OIL) 100-160-1,000 mg cap Take 1,000 mg by mouth. 0 Active Comment on above: Take 1,000 mg by [facility]. omega-3 fatty acids (Fish Oil) (3 sources) Start: take 1 capsule by mouth once daily omega-3 fatty acids (Fish Oil) Active 1 CAP PO Daily June 21, 2023 1:00am pantoprazole 40 mg delayed release oral tablet (20 sources) Proton Pump Inhibitor Start: take 1 tablet by mouth once daily at breakfast Pantoprazole Active 0 .ROUTE .COMPLEX 90 August 25, 2023 1:04pm TAKE 1 TABLET BY MOUTH ONCE A DAY ON EMPTY STOMACH FOLLOWED IN 30 MINUTES WITH BREAKFAST 90 Start: 05-29-2023 End: 08-25-2023 take 1 tablet by mouth once daily at breakfast pantoprazole DR (PROTONIX) 40 mg tablet TAKE 1 TABLET BY MOUTH ONCE A DAY ON EMPTY STOMACH FOLLOWED IN 30 MINUTES WITH BREAKFAST 90 05/29/2023 Active Start: 06-17-2022 Pantoprazole [address] Tab Refills(s) 0 Start Date: 03/22/23 Status: Ordered Comment on above: TAKE 1 TABLET BY [facility] ONCE A DAY ON EMPTY STOMACH FOLLOWED IN 30 MINUTES WITH BREAKFAST 90 pen needle, diabetic (BD Ultra-Fine Georgina Pen Needle) (3 sources) Start: 06-21-19 24 pen needle, diabetic (BD Ultra-Fine Georgina Pen Needle) Active .Route June 21, 2023 1:00am microencapsulated potassium chloride 20 meq extended release oral tablet (11 sources) Start: 03-02-20 potassium chloride ER (KLOR-CON) 20 mEq tablet Take 20 mEq by mouth. 03/02/2022 Active Comment on above: Take 20 mEq by mouth . sacubitril 24 mg / valsartan 26 mg oral tablet (20 sources) Angiotensin 2 Receptor Gonzalo Start: 07-03-19 take 1 tablet by mouth in the morning ENTRESTO 24-26 mg tablet TAKE 1 TABLET BY MOUTH IN THE MORNING AND IN THE EVENING 07/03/2023 Active Start: 06-21-2023 take 1 tablet by [facility] twice daily Sacubitril-Valsartan (Entresto) 24-26 mg tablet Active 1 TAB PO Twice daily June 21, 2023 1:00am Start: 03-22-2023 Entresto 24 mg -26 mg oral tablet Refill(s) 0 Start Date: 03/22/23 Status: Ordered ENTRESTO 24 mg/2 6 mg 1 orally twice a day Active Comment on above: TAKE 1 TABLET BY [facility] IN THE MORNING AND IN THE EVENING sildenafil 100 mg oral tablet (16 sources) Phosphodiesterase 5 Inhibitor Start: 06-21-2023 Sildenafil Active 100 MG PO June 21, 2023 1:00am Start: 10-17-2022 take 1 tablet by [facility] once daily as needed Sildenafil Citrate 100 MG 1 tablet Orally Once a day, as needed for ED for 30 days Oct, Active spironolactone 25 mg oral tablet (20 sources) Aldosterone Antagonist Start: 05-29-2023 take 1 tablet by mouth once daily in the morning spironolactone (ALDACTONE) 25 mg tablet Take 25 mg by mouth every morning. 05/29/2023 Active Start: 03-22-2023 spironolactone 25 mg Tab Refills(s) 0 Start Date: 03/22/23 Status: Ordered Comment on above: Take 25 mg by mouth every morning. tiZANidine 4 mg oral tablet (17 sources) Central alpha-2 Adrenergic Agonist Start: 06-21-2023 take 0.5-2 tablets by mouth once daily at bedtime Tizanidine Active 0 PO .COMPLEX June 21, 2023 1:00am TAKE 1/2 TO 2 TABLETS BY MOUTH EVERY DAY AT BEDTIME; Start: 03-22-2023 tiZANidine 4 m g Tab Refills(s) 0 Start Date: 03/22/23 Status: Ordered Completed/Discontinued Medications Medication Drug Class(es) Dates Sig (Normalized) Sig (Original) atenolol 25 mg oral tablet (15 sources) beta-Adrenergic Gonzalo Start: 06-27-19 End: 06-21-19 Atenolol Discontinued 25 MG PO 1200 June 26, 2018 12:00am June 21, 2023 5:28pm canagliflozin 300 mg oral tablet (5 sources) Sodium-Glucose Cotransporter 2 Inhibitor Start: 06-27-19 End: 06-21-19 24 Canagliflozin Discontinued 300 MG PO 1200 June 26, 2018 12:00am June 21, 2023 5:28pm ciprofloxacin 500 mg oral tablet (5 sources) Quinolone Antimicrobial Start: 08-12-19 take 1 tablet by mouth every twelve hours Cipro 500 MG 1 tablet Orally every 12 hrs for 7 days Jul, Not-Taking clopidogrel 75 mg oral tablet (16 sources) P2Y12 Platelet Inhibitor Start: 06-27-19 End: 06-21-19 24 Clopidogrel Discontinued 75 MG PO 1199June 26, 2018 12:00am June 21, 2023 5:28pm empagliflozin 10 mg oral tablet (10 sources) Sodium-Glucose Cotransporter 2 Inhibitor take 1 tablet by mouth every twenty-four hours Jardiance 10 MG 1 tablet Orally Once a day for 30 day(s) Not-Taking fenofibrate 145 mg oral tablet (15 sources) Peroxisome Proliferator Receptor alpha Agonist Start: 06-27-19 End: 06-21-19 Fenofibrate Nanocrystallized Discontinued 145 MG PO 1199June 26, 2018 12:00am June 21, 2023 5:29pm fluconazole 150 mg oral tablet (10 sources) Azole Antifungal Start: 08-25-19 Diflucan 150 MG 1 tablet Orally Once, repeat in 3 days if needed for 3 days August, Not-Taking hydroCHLOROthiazide 25 mg oral tablet (15 sources) Thiazide Diuretic Start: 06-27-19 End: 06-21-19 Hydrochlorothiazide Discontinued 25 MG PO 1199June 26, 2018 12:00am June 21, 2023 5:29pm 3 ml insulin aspart, human 100 unt/ml pen injector (20 sources) Insulin Analog Start: 06-27-19 End: 06-21-19 Insulin Aspart U-100 Discontinued June 26, 2018 12:00am June 21, 2023 5:18pm inject 25 [IU] by gorman bcutaneous injection three times daily before mealtime insulin aspart U-100 (NOVOLOG) 100 unit/ mL Inject 25 Units subcutaneously three times a day before meals. Active insulin aspart U -100 (NOVOLOG) 100 unit/mL Inject 25 Units subcutaneously. 0 Active NovoLOG FlexPen 100 UNIT/ML 32 units ac breakfast and 38 units ac supper plus corrective scale 1:10 ac tid (hs if >200 half dose) titrate up to 90 units/day) Subcutaneous As Directed for 90 day(s) Not-Taking Comment on above: Inject 25 Units subc utaneously. Inject 25 Units subc utaneously three times a day before meals. lisinopril 10 mg oral tablet (15 sources) Angiotensin Converting Enzyme Inhibitor Start: 06-27-19 End: 06-21-19 24 Lisinopril Discontinued 10 MG PO 1199June 26, 2018 12:00am June 21, 2023 5:29pm Magnesium, Zinc, Vitamin D (5 sources) Start: 06-27-19 19 End: 06-21-19 24 take 1 tablet by mouth [...] Daily at bedtime June 26, 2018 12:00am pioglitazone 30 mg oral tablet (13 sources) Peroxisome Proliferator Receptor alpha Agonist, Peroxisome Proliferator Receptor gamma Agonist, Thiazolidinedione take 1 tablet by mouth once daily at bedtime Pioglitazone HCl 30 MG 1 tablet Orally Once a day at hs Not-Taking Problems Active Problems Problem Classification Problem Date Documented Date Episodic/Chronic Abdominal pain (1 source) Epigastric pain [...] LT FT BRKDWN SKN] Onset: 09-20-2021 Chronic Complication of device; implant or graft (8 sources) Arteriosclerosis of coronary artery bypass graft; 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: [Atherosclerosis of coronary artery bypass graft(s) without angina pectoris] Onset: 07-27-2023 07-27-2023 Chronic Congestive heart failure; nonhypertensive (20 sources) Heart failure with normal ejection fraction; 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: [Unspecified diastolic (congestive) heart failure] Onset: 02-16-2022 Chronic Coronary atherosclerosis and other heart disease (20 sources) Coronary arteriosclerosis; 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: [Atherosclerotic heart disease of [place] coronary artery without angina pectoris] Onset: 01-06-2022 [...] 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: [Type 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 without complications] Onset: 07-27-2023 03-22-2023 Chronic Disorders of lipid metabolism (20 sources) Hypertriglyceridemia; 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: [Pure hyperglyceridemia] Onset: 03-24-2021 Resolved: 10-21-2021 Chronic Esophageal disorders (20 sources) Gastro-esophageal reflux disease with esophagitis; 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: [Gastroesophageal reflux disease with esophagitis without hemorrhage] Onset: 07-27-2023 07-27-2023 Chronic Essential hypertension (20 sources) Essential hypertension; [...] [Vitamin D deficiency, unspecified] Chronic Nutritional deficiencies (10 sources) Deficiency of other specified B group vitamins; 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: [Cobalamin deficiency] Onset: 10-21-2021 Resolved: 10-21-2021 Episodic Open wounds of extremities (17 sources) Open wound of toe(s) with damage to nail; 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: [Unspecified open wound of unspecified toe(s) with damage to nail, subsequent encounter] Episodic Other aftercare (20 sources) Long-term current use of insulin; 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: [assisted (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] Episodic Other aftercare (1 source) Long-term current use of anticoagulant; 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: [assisted (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 of anticoagulants] Onset: 03-22-2023 Episodic [...] Onset: 03-22-2023 Chronic Other male genital disorders (13 sources) Acquired buried penis; 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] Onset: 05-03-2023 05-03-2023 Chronic Other male genital disorders (12 sources) Fibrosis of corpus cavernosum; 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: [Induration penis plastica] Onset: 05-03-2023 05-03-2023 Chronic Other male genital disorders (1 source) Acquired buried penis; 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] Onset: 07-28-2023 Chronic Other male genital disorders (1 source) Induration penis plastica; 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: [Scarring of penis] Onset: 05-03-2023 Chronic Other male genital disorders (1 source) Erectile dysfunction due to diseases classified elsewhere; 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: [Erectile dysfunction associated with type 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 (HCC) (HCC)] Onset: 05-03-2023 Chronic Other male genital disorders (4 sources) Phimosis; 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: [Phimosis] Onset: 03-22-2023 Episodic [...] Chronic Other nutritional; endocrine; and metabolic disorders (6 sources) Body mass index (BMI) 39.0-39.9, adult; 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: [Body Mass Index 39.0-39.9, adult] Onset: 07-27-2023 Chronic Other nutritional; endocrine; and metabolic disorders (1 source) Obesity, unspecified; 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: [OBESITY UNSPECIFIED] Onset: 01-06-2022 Chronic Other nutritional; endocrine; and metabolic disorders (3 sources) Body mass index 30+ - obesity; 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: [Body mass index (BMI) 39.0-39.9, adult] 06-21-2023 Chronic Other nutritional; endocrine; and metabolic disorders (7 sources) Obesity caused by energy imbalance; 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: [Other obesity due to excess calories] Onset: 07-27-2023 07-27-2023 Chronic Other nutritional; endocrine; and metabolic disorders (1 source) Other obesity due to excess calories; 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: [Class 2 obesity due to excess calories without serious comorbidity with body mass index (BMI) of 39.0 to 39.9 in adult] Onset: 07-27-2023 Chronic Other screening for suspected conditions (not mental disorders or infectious disease) (6 sources) Encounter for screening for malignant neoplasm of prostate; 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: [Patient encounter status] Episodic Skin and subcutaneous tissue infections (2 sources) Cutaneous abscess of right hand Episodic Spondylosis; intervertebral disc disorders; other back problems (18 sources) Lumbosacral spondylosis with radiculopathy; 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: [Other spondylosis with radiculopathy, lumbosacral region] Onset: 11-01-2021 Chronic Superficial injury; contusion (7 sources) Blister (nonthermal), left great toe, initial [...] Episodic Coronary atherosclerosis and other heart disease (9 sources) Presence of aortocoronary bypass graft; 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: [PRESENCE AORTOCORONARY BYPASS GRAFT] Onset: 01-31-2022 Episodic Esophageal disorders (4 sources) Esophageal disorders Mycoses (1 source) Tinea unguium; 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: [TINEA UNGUIUM] Onset: 09-20-2021 Episodic Nonspecific chest pain (3 sources) Chest pain, unspecified; 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: [CHEST PAIN UNSPECIFIED] Onset: 12-31-2021 Episodic Other aftercare (9 sources) assistant terminal manager (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; 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: [ASSISTED CURRENT USE OF INSULIN] Onset: 03-24-2021 Resolved: 10-21-2021 Episodic Other aftercare (1 source) assistant terminal manager (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 of oral hypoglycemic drugs; 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: [ARTS MANAGER USE ORAL HYPOGLYCEMIC DX] Onset: 01-06-2022 Episodic Other connective tissue disease (3 sources) Pain in right foot; 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: [PAIN IN RIGHT FOOT] Onset: 02-28-2022 Episodic Other connective tissue disease (1 source) Pain in left foot; 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: [PAIN IN LEFT FOOT] Onset: 09-20-2021 Episodic Other nervous system disorders (1 source) Other acute postprocedural pain; 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: [Acute post-operative pain] Onset: 07-28-2023 Episodic Other skin disorders (4 sources) Nail [...] Test Name Value Interpretation Reference Range Facility 01-15-2024 29 Addended by: CAROLINE SILVA on: 01/16/2024 12:14 PM Modules accepted: Orders [facility] 29 Addended by: MARTIN MCCLAIN on: 01/16/2024 10:44 AM Modules accepted: Orders [facility] 01-15-2024 CHUYN Telephone (UROCARMEN) CADEN WILLS ([id number]) 1960 M Date Time Provider Department 01/15/24 JADA WILKINS During your visit today, we recorded the following information about you: Jada Wilkins APRN.CHUY 01/15/2024 2:53 PM Signed ----- Message from Kourtney Sena sent at 01/15/2024 9:13 AM EDT ----- Regarding: Refill medication [facility] in [place] faxed over a refill request for Cephalexin - it is not on his current med list. Please advise and thank you, Jada Mccarthy APRN.CNP 01/15/2024 2:54 PM Signed See previous telephone encounter from 10/04/2023. Keflex has been on auto refill, and [facility] has already been asked to cancel this request. Jada Wilkins APRN.SENIOR CLERK Allergies As of Date: 01/15/2024 (No Known Allergies) Date Reviewed: 09/13/2023 Reviewed by: Rafal Mulligan MA - Fully Assessed Prescriptions as of 01/15/2024 - amiodarone (PACERONE) 200 mg tablet Take 1 tablet by mouth once daily. - FARXIGA 10 mg tablet Take 10 mg by mouth every morning. - ezetimibe (ZETIA) 10 mg tablet Take 10 mg by mouth every morning. - ENTRESTO 24-26 mg tablet TAKE 1 TABLET BY MOUTH IN THE MORNING AND IN THE EVENING - pantoprazole DR (PROTONIX) 40 mg tablet TAKE 1 TABLET BY MOUTH ONCE A DAY ON EMPTY STOMACH FOLLOWED IN 30 MINUTES WITH BREAKFAST 90 - spironolactone (ALDACTONE) 25 mg tablet Take 25 mg by mouth every morning. - insulin glargine U-300 conc (TOUJEO MAX U-300 SOLOSTAR) 300 unit/mL (3 mL) inpn Inject 60 Units subcutaneously once daily. - metFORMIN ER (GLUCOPHAGE XR) 500 mg 24 hr tablet Take 1 tablet by mouth three times a day. - acetaminophen (TYLENOL) 325 mg tablet Take 650 mg by mouth every 6 hours as needed. - insulin aspart U-100 (NOVOLOG) 100 unit/mL Inject 25 Units subcutaneously three times a day before meals. - aspirin, enteric coated (ASPIRIN, ENTERIC COATED) 81 mg EC tablet Take 81 mg by mouth. - metoprolol succinate ER (TOPROL XL) 100 mg TAKE 1 TABLET BY MOUTH IN THE MORNING AND 1 TABLET AT BEDTIME - potassium chloride ER (KLOR-CON) 20 mEq tablet Take 20 mEq by mouth. - omega 7-wzx-xeu-fish oil (FISH OIL) 100-160-1,000 mg cap Take 1,000 mg by mouth. 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 Documentationon 01-15-2024 Documentation [id number] Caden Wills 1960 M Date Provider Department Center 01/15/2024 CAROLINE MARRERO [facility] CARD CA HeartVAS Family History Problem Relation Age of Onset Coronary artery disease Father Family Status - Relation Status Age at Father Reason for Visit and Comments: PharmD Cardiology Consult [Other] [facility] 10-04-2023 CNPN Telephone (UROZANDERN) CADEN WILLS ([id number]) 1960 M Date Time Provider Department 10/04/23 JADA WILKINS During your visit today, we recorded the following information about you: Jada Wilkins APRN.SENIOR CLERK 10/04/2023 4:18 PM Signed ----- Message from Kourtney Hodge Patient Service Spec sent at 10/04/2023 7:36 AM EDT ----- Regarding: Medication refill [facility]ed [facility] a refill request for Cephalexin 500 mg- it is not listed in his med list . Please advise and thank you, Jada Mccarthy APRN.CNP 10/04/2023 4:25 PM Signed Keflex was prescribed for 1 month after buried penis surgery on 07/28/2023. Called Caden Wills. He reports trying to cancel refill request for Keflex with [facility] but was unsuccessful. Denies concerns about infection. Reminded him that he should follow up with Dr. Alberto in the fall. Left voicemail at [facility] in [place], advising that Caden Wills does NOT need refill on Keflex and asking them to take it off auto refill. Jada Wilkins APRN.SENIOR CLERK Allergies As of Date: 10/04/2023 (No Known Allergies) Date Reviewed: 09/13/2023 Reviewed by: Rafal Mulligan MA - Fully Assessed Prescriptions as of 10/04/2023 - amiodarone (PACERONE) 200 mg tablet Take 1 tablet by mouth once daily. - FARXIGA 10 mg tablet Take 10 mg by mouth every morning. - ezetimibe (ZETIA) 10 mg tablet Take 10 mg by mouth every morning. - ENTRESTO 24-26 mg tablet TAKE 1 TABLET BY MOUTH IN THE MORNING AND IN THE EVENING - pantoprazole DR (PROTONIX) 40 mg tablet TAKE 1 TABLET BY MOUTH ONCE A DAY ON EMPTY STOMACH FOLLOWED IN 30 MINUTES WITH BREAKFAST 90 - spironolactone (ALDACTONE) 25 mg tablet Take 25 mg by mouth every morning. - insulin glargine U-300 conc (TOUJEO MAX U-300 SOLOSTAR) 300 unit/mL (3 mL) inpn Inject 60 Units subcutaneously once daily. - metFORMIN ER (GLUCOPHAGE XR) 500 mg 24 hr tablet Take 1 tablet by mouth three times a day. - acetaminophen (TYLENOL) 325 mg tablet Take 650 mg by mouth every 6 hours as needed. - insulin aspart U-100 (NOVOLOG) 100 unit/mL Inject 25 Units subcutaneously three times a day before meals. - aspirin, enteric coated (ASPIRIN, ENTERIC COATED) 81 mg EC tablet Take 81 mg by mouth. - metoprolol succinate ER (TOPROL XL) 100 mg TAKE 1 TABLET BY MOUTH IN THE MORNING AND 1 TABLET AT BEDTIME - potassium chloride ER (KLOR-CON) 20 mEq tablet Take 20 mEq by mouth. - omega 0-flp-pds-fish oil (FISH OIL) 100-160-1,000 mg cap Take 1,000 mg by mouth. 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 Consultation Noteon 09-18-19 Consultation Note [id number] .[id number] [facility] CNOVon 09-13-2023 CNOV Office Visit (UROZANDERN ) CADEN WILLS ([id number]) 1960 M Date Time Provider Department 09/13/23 1:45 PM JIAN ALBERTO During your visit today, we recorded the following information about you: Pulse Blood pressure Weight 72/minute 128/71 126 kg Jian Alberto MD 09/13/2023 2:10 PM Signed HPI: Caden Wills is a 63 year old male with a history of buried penis s/p 07/28/23 buried penis repair with mons escutcheonectomy and scrotoplasty discharged on 07/28. 08/04/2023, office visit with Dr. Mulligan for wound check and drain removal. Today, here for scheduled visit with Dr. Alberto. Reporting no issues with urination. Still using the vaseline gauze to the surgical site. Feels like he is healing well. Initially exposed glans of penis to urinate, but ultimately left glans buried due to discomfort. Some moisture associated skin damage to scrotum. Transverse incision clean, dry and intact with edges well approximated. Sutures still visible. PAST MEDICAL HISTORY Diagnosis Date Atrial fibrillation (HCC) Chronic systolic heart failure (HCC) Coronary artery disease Diabetes (HCC) Hyperlipidemia Hypertension PAST SURGICAL HISTORY Procedure Laterality Date CABG (5) VENOUS GRAFTS AND ARTERIAL GRAFT(S) 12/2021 PAST SURGICAL HISTORY OF N/A 07/28/2023 buried penis repair with mons escutcheonectomy and scrotoplasty Social History Tobacco Use Smoking status: Never Smokeless tobacco: Never Substance Use Topics Alcohol use: Yes Alcohol/week: 2.0 standard drinks of alcohol Types: 2 Cans of Beer (12oz) per week Drug use: Not Currently Current Outpatient Medications on File Prior to Visit Medication Sig amiodarone (PACERONE) 200 mg tablet Take 1 tablet by mouth once daily. FARXIGA 10 mg tablet Take 10 mg by mouth every morning. ezetimibe (ZETIA) 10 mg tablet Take 10 mg by mouth every morning. ENTRESTO 24-26 mg tablet TAKE 1 TABLET BY MOUTH IN THE MORNING AND IN THE EVENING pantoprazole DR (PROTONIX) 40 mg tablet TAKE 1 TABLET BY MOUTH ONCE A DAY ON EMPTY STOMACH FOLLOWED IN 30 MINUTES WITH BREAKFAST 90 spironolactone (ALDACTONE) 25 mg tablet Take 25 mg by mouth every morning. insulin glargine U-300 conc (TOUJEO MAX U-300 SOLOSTAR) 300 unit/mL (3 mL) inpn Inject 60 Units subcutaneously once daily. metFORMIN ER (GLUCOPHAGE XR) 500 mg 24 hr tablet Take 1 tablet by mouth three times a day. acetaminophen (TYLENOL) 325 mg tablet Take 650 mg by mouth every 6 hours as needed. insulin aspart U-100 (NOVOLOG) 100 unit/mL Inject 25 Units subcutaneously three times a day before meals. aspirin, enteric coated (ASPIRIN, ENTERIC COATED) 81 mg EC tablet Take 81 mg by mouth. metoprolol succinate ER (TOPROL XL) 100 mg TAKE 1 TABLET BY MOUTH IN THE MORNING AND 1 TABLET AT BEDTIME potassium chloride ER (KLOR-CON) 20 mEq tablet Take 20 mEq by mouth. omega 0-jit-xkp-fish oil (FISH OIL) 100-160-1,000 mg cap Take 1,000 mg by mouth. No current facility-administered medications on file prior to visit. DATA/OR LABS TO BE REVIEWED: (Simple=1 data point; Complex= 2 or more) No results found for: PSA Creatinine (mg/dL) Date Value 07/29/2023 0.71 07/28/2023 0.75 07/27/2023 0.73 No results found for: TESTOST Noy Mary RN Urology Staff Note: I performed a face to face evaluation on the patient. My findings are as follows: Patient has recovered well from surgery. No significant discomfort. He notes that voiding is much easier than it was prior to surgery. On examination incisions are all healed. The mons area is still prominent. Glans penis is exposed and is viable. The penis retracts a bit, when stretched there is good healing of the scrotal skin around the base. Patient instructed to stretch the penis periodically to clean inside the skin fold, otherwise doing well. Return to clinic in the fall for recheck. 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 - FARXIGA 10 mg tablet Take 10 mg by mouth every morning. - ezetimibe (ZETIA) 10 mg tablet Take 10 mg by mouth every morning. - ENTRESTO 24-26 mg tablet TAKE 1 TABLET BY MOUTH IN THE MORNING AND IN THE EVENING - pantoprazole DR (PROTONIX) 40 mg tablet TAKE 1 TABLET BY MOUTH ONCE A DAY ON EMPTY STOMACH FOLLOWED IN 30 MINUTES WITH BREAKFAST 90 - spironolactone (ALDACTONE) 25 mg tablet Take 25 mg by mouth every morning. - insulin glargine U-300 conc (TOUJEO MAX U-300 SOLOST (more content not included)... Normal [facility] CNOVon 08-04-2023 CNOV Office Visit (UROLMN ) CADEN WILLS ([id number]) 1960 M Date Time Provider Department 08/04/23 2:30 PM GIOVANNI MULLIGAN During your visit today, we recorded the following information about you: Weight Height 124.3 kg 1.778 m Giovanni Mulligan MD 08/04/2023 5:46 PM Signed HPI Caden Delano Wills is a 63 year old male with a 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 Since last evaluation notes overall doing well, some lingering discomfort but not bad. Drain output has been minimal over the past week. Has been on Keflex prophylaxis. LABS Creatinine Date Value Ref Range Status 07/29/2023 0.71 (L) 0.73 - 1.22 mg/dL Final 07/28/2023 0.75 0.73 - 1.22 mg/dL Final 07/27/2023 0.73 0.73 - 1.22 mg/dL Final No results found for: PSA PHYSICAL EXAMINATION GENERAL: no acute distress, well appearing, pleasant RESP: normal work of breathing on room air ABDOMEN: soft, mons incision clean and intact NEURO/PSYCH: no gross neuromuscular dysfunction EXTREMITIES: no extremity edema GENITOURINARY: Penile dressing still in place, removed with some raw coronal tissue but clean incision line and shaft viable. orthotopic patent meatus, penoscrotal incision clean and intact, scrotum with mild edema Drain removed IMPRESSION S/p buried penis repair, drain removed today, so far healing quite well. Counseled on performing daily hygiene and Vaseline to tip of penis for irritation. PLAN - RV in [address] 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 - cephALEXin (KEFLEX) 500 mg capsule Take 1 capsule by mouth two times a day. - amiodarone (PACERONE) 200 mg tablet Take 1 tablet by mouth once daily. - FARXIGA 10 mg tablet Take 10 mg by mouth every morning. - ezetimibe (ZETIA) 10 mg tablet Take 10 mg by mouth every morning. - ENTRESTO 24-26 mg tablet TAKE 1 TABLET BY MOUTH IN THE MORNING AND IN THE EVENING - pantoprazole DR (PROTONIX) 40 mg tablet TAKE 1 TABLET BY MOUTH ONCE A DAY ON EMPTY STOMACH FOLLOWED IN 30 MINUTES WITH BREAKFAST 90 - spironolactone (ALDACTONE) 25 mg tablet Take 25 mg by mouth every morning. - insulin glargine U-300 conc (TOUJEO MAX U-300 SOLOSTAR) 300 unit/mL (3 mL) inpn Inject 60 Units subcutaneously once daily. - metFORMIN ER (GLUCOPHAGE XR) 500 mg 24 hr tablet Take 1 tablet by mouth three times a day. - acetaminophen (TYLENOL) 325 mg tablet Take 650 mg by mouth every 6 hours as needed. - insulin aspart U-100 (NOVOLOG) 100 unit/mL Inject 25 Units subcutaneously three times a day before meals. - aspirin, enteric coated (ASPIRIN, ENTERIC COATED) 81 mg EC tablet Take 81 mg by mouth. - metoprolol succinate ER (TOPROL XL) 100 mg TAKE 1 TABLET BY MOUTH IN THE MORNING AND 1 TABLET AT BEDTIME - potassium chloride ER (KLOR-CON) 20 mEq tablet Take 20 mEq by mouth. - omega 4-bao-djo-fish oil (FISH OIL) 100-160-1,000 mg cap Take 1,000 mg by mouth. 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] 05/03/2023 Scarring of penis [N48.6] 05/03/2023 Erectile dysfunction associated with type 2 beverley*05/03/2023 Primary hypertension [I10] 07/27/2023 Hyperlipidemia [E78.5] 07/27/2023 Coronary artery disease involving coronary bypa*07/27/2023 Chronic systolic CHF (congestive heart failure)*07/27/2023 Paroxysmal atrial fibrillation (HCC) [I48.0] 07/27/2023 GERD (gastroesophageal reflux disease) [K21.9] 07/27/2023 Type 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, with long-term curren*07/27/2023 Class 2 obesity due to excess calories without *07/27/2023 Encounter Status:Closed by GIOVANNI MULLIGAN on 08/04/23 Normal [facility] Basic metabolic 2000 panelon 07-29-2023 Anion gap [Moles/Vol] 14 mmol/L Normal 9-18 [facility] Comment on above: Order Comment: Speci men Type: BLOOD SPECIMEN Ordering Facility: [facility] Address: [address] [place] [address] Performed By: #### 2 4321-2 #### [facility] CLIA [id number] [address] [place] [address] [place] Calcium [Mass/Vol] 8.9 mg/dL Normal 8.5-10.2 [facility] Comment on above: Order Comment: Speci men Type: BLOOD SPECIMEN Ordering Facility: [facility] Address: [address] [place] [address] Performed By: #### 2 4321-2 #### [facility] CLIA [id number] [address] [place] [address] [place] Chloride [Moles/Vol] 102 mmol/L Normal 97-105 [facility] Comment on above: Order Comment: Speci men Type: BLOOD SPECIMEN Ordering Facility: [facility] Address: [address] [place] [address] Performed By: #### 2 4321-2 #### [facility] CLIA [id number] [address] [place] [address] [place] CO2 [Moles/Vol] 23 mmol/L Normal 22-30 [facility] Comment on above: Order Comment: Speci men Type: BLOOD SPECIMEN Ordering Facility: [facility] Address: [address] [place] [address] Performed By: #### 2 4321-2 #### [facility] IA [id number] [address] [place] [address] [place] Creatinine [Mass/Vol] 0.71 mg/dL Low 0.73-1.22 [facility] Comment on above: Order Comment: Speci men Type: BLOOD SPECIMEN Ordering Facility: [facility] Address: [address] [place] [address] Performed By: #### 2 4321-2 #### [facility] IA [id number] [address] [place] [address] [place] Creatinine and Glomerular filtration rate.predicted panel (S/P/Bld) 104 mL/min/1.73m??? Normal >=60 [facility] Comment on above: Order Comment: Speci men Type: BLOOD SPECIMEN Ordering Facility: [facility] Address: [address] [place] [address] Result Comment: Leticia mated Glomerular Filtration Rate (eGFR) is calculated using the 2020 CKD-EPI creatinine equation. This equation utilizes serum creatinine, sex, and age as parameters. The creatinine assay has traceable calibration to isotope dilution-mass spectrometry. Refer to KDIGO guidelines for clinical interpretation. In patients with unstable renal function, e.g. those with acute kidney injury, the eGFR may not accurately reflect actual GFR. Performed By: #### 2 4321-2 #### [facility] CLIA [id number] [address] [place] [address] [place] Glucose [Mass/Vol] 173 mg/dL High 74-99 [facility] Comment on above: Order Comment: Speci men Type: BLOOD SPECIMEN Ordering Facility: [facility] Address: [address] [id number] Result Comment: The [place] Diabetes Association (ADA) provides guidance for cutoff values for fasting glucose and random glucose. The ADA defines fasting as no caloric intake for at least 8 hours. Fasting plasma glucose results between 100 to 125 mg/dL indicate increased risk for diabetes (prediabetes). Fasting plasma glucose results greater than or equal to 126 mg/dL meet the criteria for diagnosis of diabetes. In the absence of unequivocal hyperglycemia, results should be confirmed by repeat testing. In a patient with classic symptoms of hyperglycemia or hyperglycemic crisis, random plasma glucose results greater than or equal to 200 mg/dL meet the criteria for diagnosis of diabetes. Reference: Standards of Medical Care in Diabetes 2016, [place] [employer] Association. Diabetes Care. 2016.39(Suppl 1). Performed By: #### 2 4321-2 #### [facility] CLIA [id number] [address] [place] [address] [place] Potassium [Moles/Vol] 4.3 mmol/L Normal 3.7-5.1 [facility] Comment on above: Order Comment: Speci men Type: BLOOD SPECIMEN Ordering Facility: [facility] Address: [address] [place] [address] Performed By: #### 2 4321-2 #### [facility] CLIA [id number] [address] [place] [address] [place] Sodium [Moles/Vol] 139 mmol/L Normal 136-144 [facility] Comment on above: Order Comment: Speci men Type: BLOOD SPECIMEN Ordering Facility: [facility] Address: [address] [address] Performed By: #### 2 4321-2 #### [facility] CLIA [id number] [address] [place] [address] [place] Urea nitrogen [Mass/Vol] 18 mg/dL Normal 9-24 [facility] Comment on above: Order Comment: Speci men Type: BLOOD SPECIMEN Ordering Facility: [facility] Address: [address] [address] Performed By: #### 2 4321-2 #### [facility] CLIA [id number] [address] [place] [address] [place] CBC panel Auto (Bld)on 07-28 Erythrocyte distribution width (RBC) [Ratio] 15.8 % High 11.5-15.0 [facility] Comment on above: Order Comment: Speci men Type: BLOOD SPECIMEN Ordering Facility: [facility] Address: [address] [place] [address] Performed By: #### 5 8410-2 #### [facility] CLIA [id number] [address] [place] [address] [place] Hematocrit (Bld) [Volume fraction] 44.7 % Normal 39.0-51.0 [facility] Comment on above: Order Comment: Speci men Type: BLOOD SPECIMEN Ordering Facility: [facility] Address: [address] [place] [address] Performed By: #### 5 8410-2 #### [facility] CLIA [id number] [address] [place] [address] [place] Hemoglobin (Bld) [Mass/Vol] 14.5 g/dL Normal 13.0-17.0 [facility] Comment on above: Order Comment: Speci men Type: BLOOD SPECIMEN Ordering Facility: [facility] Address: [address] [place] [address] Performed By: #### 5 8410-2 #### [facility] CLIA [id number] [address] [place] [address] [place] MCH (RBC) [Entitic mass] 27.4 pg Normal 26.0-34.0 [facility] Comment on above: Order Comment: Speci men Type: BLOOD SPECIMEN Ordering Facility: [facility] Address: [address] [place] [address] Performed By: #### 5 8410-2 #### [facility] CLIA [id number] [address] [place] [address] [place] MCHC (RBC) [Mass/Vol] 32.4 g/dL Normal 30.5-36.0 [facility] Comment on above: Order Comment: Speci men Type: BLOOD SPECIMEN Ordering Facility: [facility] Address: [address] [place] [address] Performed By: #### 5 8410-2 #### [facility] CLIA [id number] [address] [place] [address] [place] MCV (RBC) [Entitic vol] 84.3 fL Normal 80.0-100.0 [facility] Comment on above: Order Comment: Speci men Type: BLOOD SPECIMEN Ordering Facility: [facility] Address: [address] [place] [address] Performed By: #### 5 8410-2 #### [facility] CLIA [id number] [address] [place] [address] [place] Nucleated RBC (Bld) [#/Vol] 10*3/uL Normal <0.01 [facility] Comment on above: Order Comment: Speci men Type: BLOOD SPECIMEN Ordering Facility: [facility] Address: [address] [place] [address] Performed By: #### 5 8410-2 #### [facility] CLIA [id number] [address] [place] [address] [place] Platelet mean volume (Bld) [Entitic vol] 9.6 fL Normal 9.0-12.7 [facility] Comment on above: Order Comment: Speci men Type: BLOOD SPECIMEN Ordering Facility: [facility] Address: [address] [place] [address] Performed By: #### 5 8410-2 #### [facility] CLIA [id number] [address] [place] [address] [place] Platelets (Bld) [#/Vol] 268 10*3/uL Normal 150-400 [facility] Comment on above: Order Comment: Speci men Type: BLOOD SPECIMEN Ordering Facility: [facility] Address: [address] [place] [address] Performed By: #### 5 8410-2 #### [facility] CLIA [id number] [address] [place] [address] [place] RBC (Bld) [#/Vol] 5.30 10*6/uL Normal 4.20-6.00 [facility] Comment on above: Order Comment: Speci men Type: BLOOD SPECIMEN Ordering Facility: [facility] Address: [address] [place] [address] Performed By: #### 5 8410-2 #### [facility] CLIA [id number] [address] [place] [address] [place] WBC (Bld) [#/Vol] 13.43 10*3/uL High 3.70-11.00 [facility] Comment on above: Order Comment: Speci men Type: BLOOD SPECIMEN Ordering Facility: [facility] Address: [address] [place] [address] Performed By: #### 5 8410-2 #### [facility] CLIA [id number] [address] [place] [address] [place] CNDSon 07-29-2023 CNDS HNO ID: [id number] Author: JIAN ALBERTO MD Service: Urology Author Type: Resident Type: Discharge Summary Filed: 07/29/2023 12:28 Note Text: Attestation signed by Jian Alberto MD at 07/29/2023 12:28 PM Discussed with resident, agree with plan Jian Alberto M.D. 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 Hospital Course: The patient underwent the above procedure(s) (please see separately dictated operative report for full details of the procedure). Patient tolerated the procedure well and post-operatively was transferred to PACU and ultimately to a regular nursing unit. Patient was transitioned to oral pain medication as well as restarted on prior to admission medications, and diet was advanced as tolerated. Activity level was gradually increased. Nieto catheter was removed on POD1 and the patient voided afterwards. Drain was maintained on discharge. On POD1, the patient was tolerating a diet, ambulating, and had good pain control. The patient was discharged in stable condition to home with instructions to follow up as scheduled. Patient Condition at Discharge: Stable Discharge Disposition: Home Information Provided to the Patient: Patient was given a copy of Discharge Instructions Discharge Medications: Medication List START taking these medications cephALEXin 500 mg capsule Commonly known as: KEFLEX Take 1 capsule by mouth two times a day. docusate sodium 100 mg capsule Commonly known as: COLACE Take 1 capsule by mouth two times a day. oxyCODONE IR 5 mg immediate release tablet Commonly known as: ROXICODONE Take 1 tablet by mouth every 6 hours as needed for pain for up to 2 days. CHANGE how you take these medications * acetaminophen 325 mg tablet Commonly known as: TYLENOL What changed: Another medication with the same name was added. Make sure you understand how and when to take each. * acetaminophen 325 mg tablet Commonly known as: TylenoL Take 2 tablets by mouth every 6 hours for 5 days. What changed: You were already taking a medication with the same name, and this prescription was added. Make sure you understand how and when to take each. * This list has 2 medication(s) that are the same as other medications prescribed for you. Read the directions carefully, and ask your doctor or other care provider to review them with you. CONTINUE taking these medications amiodarone 200 mg tablet Commonly known as: PACERONE aspirin, enteric coated 81 mg EC tablet Commonly known as: ASPIRIN, ENTERIC COATED ENTRESTO 24-26 mg tablet Generic drug: sacubitril-valsartan ezetimibe 10 mg tablet Commonly known as: ZETIA FARXIGA 10 mg tablet Generic drug: dapagliflozin propanediol Fish OiL 100-160-1,000 mg Cap Generic drug: omega 4-aiz-gsz-fish oil insulin aspart U-100 100 unit/mL Commonly known as: NovoLOG metFORMIN ER 500 mg 24 hr tablet Commonly known as: GLUCOPHAGE XR metoprolol succinate ER 100 mg Commonly known as: TOPROL XL pantoprazole DR 40 mg tablet Commonly known as: PROTONIX potassium chloride ER 20 mEq tablet Commonly known as: KLOR-CON spironolactone 25 mg tablet Commonly known as: ALDACTONE TOUJEO MAX U-300 SOLOSTAR 300 unit/mL (3 mL) Inpn Generic drug: insulin glargine U-300 conc Where to Get Your Medications These medications were sent to e- [id number] [place] [address] - [address] [facility] - [phone] [facility] [address] [facility] [address] acetaminophen 325 mg tablet cephALEXin 500 mg capsule docusate sodium 100 mg capsule oxyCODONE IR 5 mg immediate release tablet Future Appointments: No future appointments. Electronically STEPHANIE (more content not included)... Normal [facility] ANES POSTPROC EVALon 024 ANES POSTPROC EVAL HNO ID: [id number] Author: CHILANGO CURIEL MD Service: ? 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 Post Anesthesia Patient Status Patient Evaluation: bedside. Anticipated Disposition: phase 2 then home. Neurological Status: aware and responsive. Pulmonary Status: breathing comfortably on room air Airway Control: returned to baseline unsupported. Cardiovascular Status: stable. Pain Management: clinically adequate Postoperative Hydration: acceptable. Intraoperative Events: no significant anesthesia events Post Operative Nausea/Vomiting Status: no significant post operative nausea or vomiting Recommendation: continue current plan of care. Anesthesia Observations No Documentation SIGNATURE: Chilango Curiel MD PATIENT NAME: Caden Wills DATE: July 28, 2023 TIME: 1:45 PM CSN: [id number] Normal [facility] ANES PRE-OPon 07-28-2023 ANES PRE-OP HNO ID: [id number] Author: CHILANGO CURIEL MD Service: ? Author Type: Anesthesiologist Type: Anesthesia Preprocedure Evaluation Filed: 07/28/2023 09:56 Note Text: ANESTHESIOLOGY DAY OF SURGERY NOTE : 1960 Procedure Information Anesthesia Start Date/Time: 07/28/23 0950 Procedures: CYSTOSCOPY FLEXIBLE (Bladder) SCROTOPLASTY V-Y (Scrotum) EXCISION, EXCESSIVE SKIN AND SUBCUTANEOUS TISSUE, OTHER AREA prepubic lipectomy with fixation of skin to pubic region (Suprapubic) EXCISION LYSIS PENILE POST-CIRCUMCISION ADHESIONS (Penis) Location: [facility] Surgeons: Jian Alberto MD Estimated body mass index is 38.74 kg/m? as calculated from the following: Height as of this encounter: 177.8 cm (5' 10 ). Weight as of this encounter: 122.5 kg (270 lb). Most recent hematocrit and potassium results: Hematocrit 51.6 07/27/2023 Potassium 4.1 07/27/2023 Relevant Problems CARDIO (+) Coronary artery disease involving coronary bypass graft of [place] heart without angina pectoris (+) Paroxysmal atrial fibrillation (HCC) (+) Primary hypertension ENDO (+) Type 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, with long-term current use of insulin (HCC) GI (+) GERD (gastroesophageal reflux disease) I - PHYSICAL EVALUATION AIRWAY Patient intubated: No. Tracheostomy tube not present Mallampati: III. TM distance: >3 FB. Neck ROM: full ROM without neurological symptoms. Mouth opening: adequate. Thick neck: no DENTAL Dental findings: missing tooth/teeth. II - ANESTHESIA PLAN ASA Score: 4 Anesthetic Plan: general Airway type: ETT NPO Status: adequate Beta Gonzalo Monitoring Plan Monitoring plan: standard ASA. Post Procedure Analgesic Plan Informed Consent Anesthetic risks, benefits, alternatives, personnel and consent discussed: yes. Patient / Responsible Alliance Party agrees to proceed: yes Patient / Surrogate agrees to blood products: Yes DNR status not reviewed with patient and/or family prior to surgery. Potential Anesthesia issues that may suggest increased risk of complications or contraindication to planned procedure: none. Vitals Value Taken Time BP 108/59 07/28/23750 Pulse 64 07/28/23750 Resp 18 07/28/23750 Temp 36.3 ?C (97.3 ?F) 07/28/23750 SpO2 96 % 07/28/23750 Facility-Administered Medications as of 07/28/2023 Medication Dose Route Frequency - [COMPLETED] heparin 5,000 Units injection 5,000 Units SUBCUTANEOUS ONCE - lidocaine (PF) 10 mg/mL (1 %) 1-2 mg injection (XYLOCAINE) 0.1-0.2 mL INTRADERMAL PRN Or - lidocaine 1% 0.25 mL subcutaneous j-tip syringe (XYLOCAINE) 0.25 mL SUBCUTANEOUS PRN - lactated ringers iv infusion 5-30 mL/hr INTRAVENOUS CONTINUOUS - NaCl 0.9% iv flush bag 20 mL INTRAVENOUS PRN - piperacillin-tazobact am iv piggyback 3.375 g in dextrose (iso-osmotic) 50 mL (ZOSYN) 3.375 g INTRAVENOUS Pre-Op Once Outpatient Medications as of 07/28/2023 Medication Sig - pantoprazole DR (PROTONIX) 40 mg tablet TAKE 1 TABLET BY MOUTH ONCE A DAY ON EMPTY STOMACH FOLLOWED IN 30 MINUTES WITH BREAKFAST 90 - spironolactone (ALDACTONE) 25 mg tablet Take 25 mg by mouth every morning. - insulin glargine U-300 conc (TOUJEO MAX U-300 SOLOSTAR) 300 unit/mL (3 mL) inpn Inject 60 Units subcutaneously once daily. - metFORMIN ER (GLUCOPHAGE XR) 500 mg 24 hr tablet Take 1 tablet by mouth three times a day. - acetaminophen (TYLENOL) 325 mg tablet Take 650 mg by mouth every 6 hours as needed. - insulin aspart U-100 (NOVOLOG) 100 unit/mL Inject 25 Units subcutaneously three times a day before meals. - aspirin, enteric coated (ASPIRIN, ENTERIC COATED) 81 mg EC tablet Take 81 mg by mouth. - metoprolol succinate ER (TOPROL XL) 100 mg TAKE 1 TABLET BY MOUTH IN THE MORNING AND 1 TABLET AT BEDTIME - potassium chloride ER (KLOR-CON) 20 mEq tablet Take 20 mEq by mouth. - omega 2-xht-utl-fish oil (FISH OIL) 100-160-1,000 mg cap Take 1,000 mg by mouth. I have interviewed and examined the patient. I have reviewed the medical record and/or the pre-anesthesia evaluation, pertinent labs, and test results. This contains updated information obtained within 48 hours of Surgery/Procedure. SIGNATURE: Chilango Curiel MD PATIENT NAME: Caden Wills DATE: July 28, 2023 TIME: 9:53 AM CSN: [id number] Normal [facility] BRIEF OP NOTon 07-28-2023 BRIEF OP NOT HNO ID: [id number] Author: JUICE GEE MD Service: Urology Author Type: Resident Type: Brief Op Note Filed: 07/28/2023 12:38 Note Text: BRIEF OPERATIVE / PROCEDURE NOTE LOG ID: [id number] SURGERY/PROCEDURE DATE: 07/28/2023 INCISION/PROCEDURE START TIME: 10:32 AM INCISION CLOSE/PROCEDURE END TIME: 12:25 PM SURGEON(S)/PROCEDURAL IST(S) AND COMMUNICATIONS EQUIPMENT INSTALLER(S): Surgeon(s) and Role: * Jian Alberto MD - Primary * Jucie Gee MD - Resident - Assisting No Additional Staff SURGERY/PROCEDURE(S): - Y-V scrotoplasty - Buried penis repair and removal of mons pubis adipose tissue ANESTHESIA: General FINDINGS: - Buried penis with cicatrix preventing exposure of glans - Removal of mons pubis adipose tissue and cicatrix ESTIMATED BLOOD LOSS: 25 mls SPECIMENS: ID Type Source Tests Collected by Time Destination A : penile skin Tissue Soft Tissue (Not otherwise specified) SURGICAL PATHOLOGY Jian Alberto MD 07/28/2023 10:42 AM COMPLICATIONS: None Drains: 10Fr TEJ drain, 16Fr nieto catheter CLOSURE TECHNIQUE: Primary PRE-OP/PRE-PROCEDURE DIAGNOSIS: Buried penis POST-OP/POST-PROCEDUR E DIAGNOSIS: Same as Preop SIGNATURE: Juice Gee MD PATIENT NAME: Caden Wills DATE: July 28, 2023 TIME: 12:36 PM Normal [facility] Basic metabolic 2000 panelon 07-28-2023 Anion gap [Moles/Vol] 13 mmol/L Normal 9-18 [facility] Comment on above: Order Comment: Speci men Type: BLOOD SPECIMEN Ordering Facility: [facility] Address: [address] [place] [address] Performed By: #### 5 8410-2 #### [facility] CLIA [id number] [address] [place] [address] [place] Calcium [Mass/Vol] 9.3 mg/dL Normal 8.5-10.2 [facility] Comment on above: Order Comment: Speci men Type: BLOOD SPECIMEN Ordering Facility: [facility] Address: [address] [place] [address] Performed By: #### 5 8410-2 #### [facility] CLIA [id number] [address] [place] [address] [place] Chloride [Moles/Vol] 104 mmol/L Normal 97-105 [facility] Comment on above: Order Comment: Speci men Type: BLOOD SPECIMEN Ordering Facility: [facility] Address: [address] [place] [address] Performed By: #### 5 8410-2 #### [facility] CLIA [id number] [address] [place] [address] [place] CO2 [Moles/Vol] 23 mmol/L Normal 22-30 [facility] Comment on above: Order Comment: Speci men Type: BLOOD SPECIMEN Ordering Facility: [facility] Address: [address] [place] [address] Performed By: #### 5 8410-2 #### [facility] CLIA [id number] [address] [place], [place] [address] [place] Creatinine [Mass/Vol] 0.75 mg/dL Normal 0.73-1.22 [facility] Comment on above: Order Comment: Karina villarreal Type: BLOOD SPECIMEN Ordering Facility: [facility] Address: [address] [place] [address] Performed By: #### 5 8410-2 #### [facility] CLIA [id number] [address] [place] [address] [place] Creatinine and Glomerular filtration rate.predicted panel (S/P/Bld) 103 mL/min/1.73m??? Normal >=60 [facility] Comment on above: Order Comment: Karina villarreal Type: BLOOD SPECIMEN Ordering Facility: [facility] Address: [address] [place] [address] Result Comment: Leticia mated Glomerular Filtration Rate (eGFR) is calculated using the 2020 CKD-EPI creatinine equation. This equation utilizes serum creatinine, sex, and age as parameters. The creatinine assay has traceable calibration to isotope dilution-mass spectrometry. Refer to KDIGO guidelines for clinical interpretation. In patients with unstable renal function, e.g. those with acute kidney injury, the eGFR may not accurately reflect actual GFR. Performed By: #### 5 8410-2 #### [facility] CLIA [id number] [address] [place] [address] [place] Glucose [Mass/Vol] 182 mg/dL High 74-99 [facility] Comment on above: Order Comment: Karina villarreal Type: BLOOD SPECIMEN Ordering Facility: [facility] Address: [address] [place] [address] Result Comment: The [place] Diabetes Association (ADA) provides guidance for cutoff values for fasting glucose and random glucose. The ADA defines fasting as no caloric intake for at least 8 hours. Fasting plasma glucose results between 100 to 125 mg/dL indicate increased risk for diabetes (prediabetes). Fasting plasma glucose results greater than or equal to 126 mg/dL meet the criteria for diagnosis of diabetes. In the absence of unequivocal hyperglycemia, results should be confirmed by repeat testing. In a patient with classic symptoms of hyperglycemia or hyperglycemic crisis, random plasma glucose results greater than or equal to 200 mg/dL meet the criteria for diagnosis of diabetes. Reference: Standards of Medical Care in Diabetes 2016, [place] Diabetes Association. Diabetes Care. 2016.39(Suppl 1). Performed By: #### 5 8410-2 #### [facility] CLIA [id number] [address] [place] [address] [place] Potassium [Moles/Vol] 4.7 mmol/L Normal 3.7-5.1 [facility] Comment on above: Order Comment: Speci men Type: BLOOD SPECIMEN Ordering Facility: [facility] Address: [address] [place] [address] Performed By: #### 5 8410-2 #### [facility] CLIA [id number] [address] [place] [address] [place] Sodium [Moles/Vol] 140 mmol/L Normal 136-144 [facility] Comment on above: Order Comment: Speci men Type: BLOOD SPECIMEN Ordering Facility: [facility] Address: [address] [place] [address] Performed By: #### 5 8410-2 #### [facility] CLIA [id number] [address] [place] [address] [place] Urea nitrogen [Mass/Vol] 16 mg/dL Normal 9-24 [facility] Comment on above: Order Comment: Speci men Type: BLOOD SPECIMEN Ordering Facility: [facility] Address: [address] [place] [address] Performed By: #### 5 8410-2 #### [facility] CLIA [id number] [address] [place] [address] [place] CBC panel Auto (Bld)on 07-27 Erythrocyte distribution width (RBC) [Ratio] 17.2 % High 11.5-15.0 [facility] Comment on above: Order Comment: Speci men Type: BLOOD SPECIMEN Ordering Facility: [facility] Address: [address] [place] [address] Performed By: #### 5 8410-2 #### [facility] CLIA [id number] [address] [place] [address] [place] Hematocrit (Bld) [Volume fraction] 50.7 % Normal 39.0-51.0 [facility] Comment on above: Order Comment: Speci men Type: BLOOD SPECIMEN Ordering Facility: [facility] Address: [address] [place] [address] Performed By: #### 5 8410-2 #### [facility] CLIA [id number] [address] [place] [address] [place] Hemoglobin (Bld) [Mass/Vol] 16.6 g/dL Normal 13.0-17.0 [facility] Comment on above: Order Comment: Speci men Type: BLOOD SPECIMEN Ordering Facility: [facility] Address: [address] [place] [address] Performed By: #### 5 8410-2 #### [facility] CLIA [id number] [address] [place] [address] [place] MCH (RBC) [Entitic mass] 27.7 pg Normal 26.0-34.0 [facility] Comment on above: Order Comment: Speci men Type: BLOOD SPECIMEN Ordering Facility: [facility] Address: [address] [place] [address] Performed By: #### 5 8410-2 #### [facility] CLIA [id number] [address] [place] [address] [place] MCHC (RBC) [Mass/Vol] 32.7 g/dL Normal 30.5-36.0 [facility] Comment on above: Order Comment: Speci men Type: BLOOD SPECIMEN Ordering Facility: [facility] Address: [address] [place] [address] Performed By: #### 5 8410-2 #### [facility] CLIA [id number] [address] [place] [address] [place] MCV (RBC) [Entitic vol] 84.6 fL Normal 80.0-100.0 [facility] Comment on above: Order Comment: Speci men Type: BLOOD SPECIMEN Ordering Facility: [facility] Address: [address] [place] [address] Performed By: #### 5 8410-2 #### [facility] CLIA [id number] [address] [place] [address] [place] Nucleated RBC (Bld) [#/Vol] 10*3/uL Normal <0.01 [facility] Comment on above: Order Comment: Speci men Type: BLOOD SPECIMEN Ordering Facility: [facility] Address: [address] [place] [address] Performed By: #### 5 8410-2 #### [facility] CLIA [id number] [address] [place] [address] [place] Platelet mean volume (Bld) [Entitic vol] 9.5 fL Normal 9.0-12.7 [facility] Comment on above: Order Comment: Speci men Type: BLOOD SPECIMEN Ordering Facility: [facility] Address: [address] [place] [address] Performed By: #### 5 8410-2 #### [facility] CLIA [id number] [address] [place] [address] [place] Platelets (Bld) [#/Vol] 284 10*3/uL Normal 150-400 [facility] Comment on above: Order Comment: Speci men Type: BLOOD SPECIMEN Ordering Facility: [facility] Address: [address] [place] [address] Performed By: #### 5 8410-2 #### [facility] CLIA [id number] [address] [place] [address] [place] RBC (Bld) [#/Vol] 5.99 10*6/uL Normal 4.20-6.00 [facility] Comment on above: Order Comment: Speci men Type: BLOOD SPECIMEN Ordering Facility: [facility] Address: [address] [place] [address] Performed By: #### 5 8410-2 #### [facility] CLIA [id number] [address] [place] [address] [place] WBC (Bld) [#/Vol] 10.10 10*3/uL Normal 3.70-11.00 [facility] Comment on above: Order Comment: Speci men Type: BLOOD SPECIMEN Ordering Facility: [facility] Address: [address] [place] [address] Performed By: #### 5 8410-2 #### [facility] CLIA [id number] [address] [place] [address] [place] NURSING PROGon 07-28-2023 NURSING PROG HNO ID: [id number] Author: DAVID MCLAUGHLIN RN Service: ? Author Type: Registered Nurse Type: Nursing Progress Note Filed: 07/28/2023 14:53 Note Text: Admission/Transfer Note PATIENT NAME: Caden Wills Patient Location: [place] [address]/[place] [address] Room: [place] [address] Patient admitted from PACU via bed in stable condition. Actions taken: Patient oriented to room, call light function, prescribed activities, Patient rights, and Quiet at night. Patient belongings with patient. This note was completed by: David Mclaughlin Normal [facility] SURGICAL PATHOLOGYon 024 CASE REPORT Normal [facility] Comment on above: Order Comment: Speci men Type: BLOOD SPECIMEN Ordering Facility: [facility] Address: [address] [place] [address] Result Comment: Surg ical Pathology Report Case: [id number] Authorizing Provider: Jian Alberto MD Collected: 07/28/2023 10:42 AM Ordering Location: Admitting Received: 07/28/2023 12:18 PM Pathologist: Rajat Corbin MD Specimen: Soft Tissue (Not otherwise specified), penile skin Performed By: #### 5 8410-2 #### [facility] CLIA [id number] [address] [place] [address] [place] CLINICAL HISTORY Normal [facility] Comment on above: Order Comment: Speci men Type: BLOOD SPECIMEN Ordering Facility: [facility] Address: [address] [place] [address] Result Comment: 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 An immunohistochemical stain for T. pallidum is negative. These findings support the above diagnosis. Laboratory Developed Test (LDT) Disclaimer: Performance characteristics of immunohistochemical, immunofluorescent and chromogenic in-situ hybridization tests have been determined by the performing laboratory within [facility]???s [facility] Pathology and Laboratory Medicine Department ([facility], [facility], [facility], [facility], [facility], [facility], [facility], or [facility]) in a manner consistent with CLIA requirements. One or more of these tests have not been cleared or approved by the FDA. [facility] is regulated under CLIA as qualified to perform high-complexity testing. These tests are used for clinical purposes. They should not be regarded as investigational or for research. Positive and negative controls stain appropriately. Performed By: #### 5 8410-2 #### [facility] CLIA [id number] [address] [place] [address] FINAL DIAGNOSIS Normal [facility] Comment on above: Order Comment: Speci men Type: BLOOD SPECIMEN Ordering Facility: [facility] Address: [address] [place] [address] Result Comment: Peni le skin, excision: - Benign skin with acute and chronic inflammation and rare fungal organisms morphologically consistent with Sydnee species. Performed By: #### 5 8410-2 #### [facility] CLIA [id number] [address] [place] [address] [place] FINAL PERFORMING LAB Normal [facility] Comment on above: Order Comment: Speci men Type: BLOOD SPECIMEN Ordering Facility: [facility] Address: [address] [place] [address] Result Comment: Diag nostic interpretation performed at [place] [facility], [address] [place] [address] CLIA# [id number] Furniture Assembler And Installer: Jose Power M.D. Performed By: #### 5 8410-2 #### [facility] CLIA [id number] [address] [place] [address] [place] GROSS DESCRIPTION Normal [facility] Comment on above: Order Comment: Speci men Type: BLOOD SPECIMEN Ordering Facility: [facility] Address: [address] [place] [address] Result Comment: A. S oft Tissue (Not otherwise specified) Received fresh labeled penile skin is a rectangular excision of pink skin measuring 4.5 x 2.5 x 0.3 cm. The skin surface is smooth and glistening without lesion. The resection margin is cauterized and roughened. The cut surfaces are soft and glistening. Automotive Warranty Administrator sections are submitted in cassette A1. OLIVA July 28, 2023 12:39 PM Gross examination performed at [facility], [address] [place] [address] CLIA# [id number] Performed By: #### 5 8410-2 #### [facility] CLIA [id number] [address] [place] [address] [place] CBC panel Auto (Bld)on 07-26 Erythrocyte distribution width (RBC) [Ratio] 16.1 % High 11.5-15.0 [facility] Comment on above: Order Comment: Speci men Type: BLOOD SPECIMEN Ordering Facility: [facility] Address: [address] [place] [address] Performed By: #### 5 8410-2 #### [facility] CLIA [id number] [address] [place] [address] [place] Hematocrit (Bld) [Volume fraction] 51.6 % High 39.0-51.0 [facility] Comment on above: Order Comment: Speci men Type: BLOOD SPECIMEN Ordering Facility: [facility] Address: [address] [place] [address] Performed By: #### 5 8410-2 #### [facility] CLIA [id number] [address] [place] [address] [place] Hemoglobin (Bld) [Mass/Vol] 16.6 g/dL Normal 13.0-17.0 [facility] Comment on above: Order Comment: Speci men Type: BLOOD SPECIMEN Ordering Facility: [facility] Address: [address] [place] [address] Performed By: #### 5 8410-2 #### [facility] CLIA [id number] [address] [place] [address] [place] MCH (RBC) [Entitic mass] 27.6 pg Normal 26.0-34.0 [facility] Comment on above: Order Comment: Speci men Type: BLOOD SPECIMEN Ordering Facility: [facility] Address: [address] [place] [address] Performed By: #### 5 8410-2 #### [facility] CLIA [id number] [address] [place] [address] [place] MCHC (RBC) [Mass/Vol] 32.2 g/dL Normal 30.5-36.0 [facility] Comment on above: Order Comment: Speci men Type: BLOOD SPECIMEN Ordering Facility: [facility] Address: [address] [place] [address] Performed By: #### 5 8410-2 #### [facility] CLIA [id number] [address] [place] [address] [place] MCV (RBC) [Entitic vol] 85.7 fL Normal 80.0-100.0 [facility] Comment on above: Order Comment: Speci men Type: BLOOD SPECIMEN Ordering Facility: [facility] Address: [address] [place] [address] Performed By: #### 5 8410-2 #### [facility] CLIA [id number] [address] [place] [address] [place] Nucleated RBC (Bld) [#/Vol] 10*3/uL Normal <0.01 [facility] Comment on above: Order Comment: Speci men Type: BLOOD SPECIMEN Ordering Facility: [facility] Address: [address] [place] [address] Performed By: #### 5 8410-2 #### [facility] CLIA [id number] [address] [place] [address] [place] Platelet mean volume (Bld) [Entitic vol] 10.3 fL Normal 9.0-12.7 [facility] Comment on above: Order Comment: Speci men Type: BLOOD SPECIMEN Ordering Facility: [facility] Address: [address] [place] [address] Performed By: #### 5 8410-2 #### [facility] CLIA [id number] [address] [place] [address] [place] Platelets (Bld) [#/Vol] 264 10*3/uL Normal 150-400 [facility] Comment on above: Order Comment: Speci men Type: BLOOD SPECIMEN Ordering Facility: [facility] Address: [address] [place] [address] Performed By: #### 5 8410-2 #### [facility] CLIA [id number] [address] [place] [address] [place] RBC (Bld) [#/Vol] 6.02 10*6/uL High 4.20-6.00 [facility] Comment on above: Order Comment: Speci men Type: BLOOD SPECIMEN Ordering Facility: [facility] Address: [address] [place] [address] Performed By: #### 5 8410-2 #### [facility] CLIA [id number] [address] [place] [address] [place] WBC (Bld) [#/Vol] 10.12 10*3/uL Normal 3.70-11.00 [facility] Comment on above: Order Comment: Speci men Type: BLOOD SPECIMEN Ordering Facility: [facility] Address: [address] [place] [address] Performed By: #### 5 8410-2 #### [facility] CLIA [id number] [address] [place] [address] [place] Comprehensive metabolic 2000 panelon 07-27-2023 Albumin [Mass/Vol] 4.3 g/dL Normal 3.9-4.9 [facility] Comment on above: Order Comment: Speci men Type: BLOOD SPECIMEN Ordering Facility: [facility] Address: [address] [place] [address] Performed By: #### 5 8410-2 #### [facility] CLIA [id number] [address] [place] [address] [place] ALP [Catalytic activity/Vol] 100 U/L Normal 38-113 [facility] Comment on above: Order Comment: Speci men Type: BLOOD SPECIMEN Ordering Facility: [facility] Address: [address] [place] [address] Performed By: #### 5 8410-2 #### [facility] CLIA [id number] [address] [place] [address] [place] ALT [Catalytic activity/Vol] 33 U/L Normal 10-54 [facility] Comment on above: Order Comment: Speci men Type: BLOOD SPECIMEN Ordering Facility: [facility] Address: [address] [place], [place] [address] Performed By: #### 5 8410-2 #### [facility] CLIA [id number] [address] [place] [address] [place] Anion gap [Moles/Vol] 14 mmol/L Normal 9-18 [facility] Comment on above: Order Comment: Speci men Type: BLOOD SPECIMEN Ordering Facility: [facility] Address: [address] [place] [address] Performed By: #### 5 8410-2 #### [facility] CLIA [id number] [address] [place] [address] [place] AST [Catalytic activity/Vol] 26 U/L Normal 14-40 [facility] Comment on above: Order Comment: Speci men Type: BLOOD SPECIMEN Ordering Facility: [facility] Address: [address] [place] [address] Performed By: #### 5 8410-2 #### [facility] CLIA [id number] [address] [place] [address] [place] Bilirubin [Mass/Vol] 0.2 mg/dL Normal 0.2-1.3 [facility] Comment on above: Order Comment: Speci men Type: BLOOD SPECIMEN Ordering Facility: [facility] Address: [address] [place] [address] Performed By: #### 5 8410-2 #### [facility] CLIA [id number] [address] [place] [address] [place] Calcium [Mass/Vol] 10.5 mg/dL High 8.5-10.2 [facility] Comment on above: Order Comment: Speci men Type: BLOOD SPECIMEN Ordering Facility: [facility] Address: [address] [place] [address] Performed By: #### 5 8410-2 #### [facility] CLIA [id number] [address] [place] [address] [place] Chloride [Moles/Vol] 101 mmol/L Normal 97-105 [facility] Comment on above: Order Comment: Speci men Type: BLOOD SPECIMEN Ordering Facility: [facility] Address: [address] [place] [address] Performed By: #### 5 8410-2 #### [facility] CLIA [id number] [address] [place] [address] [place] CO2 [Moles/Vol] 25 mmol/L Normal 22-30 [facility] Comment on above: Order Comment: Speci men Type: BLOOD SPECIMEN Ordering Facility: [facility] Address: [address] [place] [address] Performed By: #### 5 8410-2 #### [facility] CLIA [id number] [address] [place] [address] [place] Creatinine [Mass/Vol] 0.73 mg/dL Normal 0.73-1.22 [facility] Comment on above: Order Comment: Speci men Type: BLOOD SPECIMEN Ordering Facility: [facility] Address: [address] [place] [address] Performed By: #### 5 8410-2 #### [facility] CLIA [id number] [address] [place] [address] [place] Creatinine and Glomerular filtration rate.predicted panel (S/P/Bld) 104 mL/min/1.73m??? Normal >=60 [facility] Comment on above: Order Comment: Speci men Type: BLOOD SPECIMEN Ordering Facility: [facility] Address: [address] [place] [address] Result Comment: Leticia mated Glomerular Filtration Rate (eGFR) is calculated using the 2020 CKD-EPI creatinine equation. This equation utilizes serum creatinine, sex, and age as parameters. The creatinine assay has traceable calibration to isotope dilution-mass spectrometry. Refer to KDIGO guidelines for clinical interpretation. In patients with unstable renal function, e.g. those with acute kidney injury, the eGFR may not accurately reflect actual GFR. Performed By: #### 5 8410-2 #### [facility] CLIA [id number] [address] [place] [address] [place] Glucose [Mass/Vol] 82 mg/dL Normal 74-99 [facility] Comment on above: Order Comment: Speci men Type: BLOOD SPECIMEN Ordering Facility: [facility] Address: [address] [place] [address] Result Comment: The [place] Diabetes Association (ADA) provides guidance for cutoff values for fasting glucose and random glucose. The ADA defines fasting as no caloric intake for at least 8 hours. Fasting plasma glucose results between 100 to 125 mg/dL indicate increased risk for diabetes (prediabetes). Fasting plasma glucose results greater than or equal to 126 mg/dL meet the criteria for diagnosis of diabetes. In the absence of unequivocal hyperglycemia, results should be confirmed by repeat testing. In a patient with classic symptoms of hyperglycemia or hyperglycemic crisis, random plasma glucose results greater than or equal to 200 mg/dL meet the criteria for diagnosis of diabetes. Reference: Standards of Medical Care in Diabetes 2016, [place] Diabetes Association. Diabetes Care. 2016.39(Suppl 1). Performed By: #### 5 8410-2 #### [facility] CLIA [id number] [address] [place] [address] [place] Potassium [Moles/Vol] 4.1 mmol/L Normal 3.7-5.1 [facility] Comment on above: Order Comment: Speci men Type: BLOOD SPECIMEN Ordering Facility: [facility] Address: [address] [place] [address] Performed By: #### 5 8410-2 #### [facility] CLIA [id number] [address] [place] [address] [place] Protein [Mass/Vol] 7.6 g/dL Normal 6.3-8.0 [facility] Comment on above: Order Comment: Speci men Type: BLOOD SPECIMEN Ordering Facility: [facility] Address: [address] [place] [address] Performed By: #### 5 8410-2 #### [facility] CLIA [id number] [address] [place] [address] [place] Sodium [Moles/Vol] 140 mmol/L Normal 136-144 [facility] Comment on above: Order Comment: Speci men Type: BLOOD SPECIMEN Ordering Facility: [facility] Address: [address] [place] [address] Performed By: #### 5 8410-2 #### [facility] CLIA [id number] [address] [place] [address] [place] Urea nitrogen [Mass/Vol] 17 mg/dL Normal 9-24 [facility] Comment on above: Order Comment: Speci men Type: BLOOD SPECIMEN Ordering Facility: [facility] Address: [address] [place] [address] Performed By: #### 5 8410-2 #### [facility] CLIA [id number] [address] [place] [address] [place] Erythrocyte distribution wid th Auto (RBC) [Ratio]on 07-27-2023 Erythrocyte distribution width (RBC) [Ratio] 16.1 % High 11.5-15.0 [facility] Glucose mean value [Mass/vol ume] in Blood Estimated from glycated hemoglobinon 07-27-2023 Average glucose Estimated from glycated hemoglobin (Bld) [Mass/Vol] 157 mg/dL [facility] Comment on above: eAG: (Estimated aver age glucose) is a calculated value from HgbA1c and is route service representative of the average blood glucose level in the last 2-3 month period. HISTORY PHYSICALon HISTORY PHYSICAL HNO ID: [id number] Author: KEVIN GOLDSMITH APRN.SENIOR CLERK Service: ? Author Type: Nurse Practitioner Type: H&P Filed: 07/27/2023 14:47 Note Text: HISTORY AND PHYSICAL EXAMINATION SERVICE DATE: 07/27/2023 SERVICE TIME: 12:49 PM PRIMARY CARE PHYSICIAN: Fahad Aceves DO Assessment Patient has the following medical conditions which may affect tigre-operative course: Primary hypertension Stable on Amiodarone 200 mg daily, Metoprolol 100 mg BID, and Spironolactone 25 mg daily. BP today 114/66. Hyperlipidemia Stable on Ezetimibe 10 mg daily. Coronary artery disease involving coronary bypass graft of [place] heart without angina pectoris CAD, hx of VA s/p CABG x 5 in Dec 2021. Patient had a pre-op evaluation with Cardiology, 06/19/[address] Colmenares. Per note, Perioperative Cardiac Risk Assessment: Mr. Caden Christina [...] cardiac events (< 1% chance of , VA, CHF, malignant ventricular arrhythmias or high grade AV block) and I would recommend proceeding ahead with the circumcision surgery as planned. Patient denies recent chest pain, palpitations, shortness of breath. Endorses good functional capacity (5.5+ METs). Chronic systolic CHF (congestive heart failure) (HCC) Echo in Dec 2021 showed EF 35% Stable on Entresto 24-26 mg BID and Spironolactone 25 mg daily. Cardiology note 06/19/23 notes the following, Echo 03/30/22 ([facility]) - Global LV systolic function is difficult to assess but appears preserved, estimated ejection fraction is 55 to 60%, unable to accurately evaluate wall motion abnormalities. Paroxysmal atrial fibrillation (HCC) Hx of post-op atrial fibrillation, treated with amiodarone and converted back to NSR. Stable on Amiodarone 200 mg daily and Metoprolol 100 mg BID. GERD (gastroesophageal reflux disease) Stable on Pantoprazole 40 mg daily. Type 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, with long-term current use of insulin (HCC) Stable on Insulin glargine 60 units daily, Insulin aspart 25 units TID with meals, Farxiga 10 mg daily, and Metformin 500 mg TID. Patient holding Farxiga for upcoming surgery, last dose 07/25/23. Outside HgbA1C 01/04/22 - 6.6% PLAN: HgbA1C ordered. Class 2 obesity due to excess calories without serious comorbidity with body mass index (BMI) of 39.0 to 39.9 in adult Body mass index is 39.29 kg/m? Loco Activity Status Index: METS: Climb a flight of stairs or walk up a hill (5.50 METs) DASI Score: 5.5 Patient denies any chest pain or undue shortness of breath with the above physical activity. Clinical Frailty Scale: 4. Apparently vulnerable STOP-Bang Score: Snores loudly Has or is being treated for high blood pressure BMI greater than 35 kg/m2 Patient over 50 years old Male patient Denies feeling tired, fatigued, or sleepy during the daytime Has not been observed to stop breathing or choking/gasping during sleep Does not have a large neck STOP-Bang Score: 5 [id number] Score: Age: <65 Sex: male CHF history: Yes Hypertension history: Yes Stroke/TIA/thromboemb olism history: No Vascular disease history: Yes Diabetes history: Yes [id number] Score: 4 ARISCAT Score: Age: 51-80 Preoperative SpO2: 91-95% Respiratory infection in the last month: No Preoperative anemia: No Surgical incision: peripheral Duration of surgery: >3 hrs Emergency procedure: No ARISCAT Score: 34 ASA Class: 3 ANESTHESIA FINDINGS: Intubation History: No history of difficult intubation. No abnormal airway history Significant Anesthesia Considerations: none Airway History: No history of difficult airway No abnormal airway history I - PHYSICAL EVALUATION AIRWAY Patient intubated: No. Tracheostomy tube not present Mallampati: III. TM distance: <3 FB. Neck ROM: full ROM without neurological symptoms. Mouth opening: adequate. Short neck: yes. Thick neck: yes Landers present: no Lip Bite Test: I Microretrognathia/Celestino ronagthia/Recessed Chin: Yes DENTAL Dentures, upper: partial. Additional comments: Caps/crowns. II - ANESTHESIA PLAN ASA Score: 3 Anesthetic plan additional comments: *PACC/TCI - anesthesia choice. Beta Gonzalo Monitoring Plan Post Procedure Analgesic Plan Prepared for Surgery: optimally prepared for surgery, pending day of surgery. PACC appointment 07/27/23, surgery scheduled for next day 07/28/23. Pending DOS review of labs. (more content not included)... Normal [facility] HbA1c (Bld)on 07-27-2023 Average glucose Estimated from glycated hemoglobin (Bld) [Mass/Vol] 157 mg/dL [facility] HbA1c (Bld) [Mass fraction] 7.1 % High 4.3 - 5.6 % [facility] Average glucose Estimated from glycated hemoglobin (Bld) [Mass/Vol] 157 mg/dL Normal [facility] Comment on above: Order Comment: Karina villarreal Type: BLOOD SPECIMEN Ordering Facility: [facility] Address: [address] [place] [address] Result Comment: eAG: (Estimated average glucose) is a calculated value from HgbA1c and is route service representative of the average blood glucose level in the last 2-3 month period. Performed By: #### 5 8410-2 #### [facility] CLIA [id number] [address] [place] [address] [place] HbA1c (Bld) [Mass fraction] 7.1 % High 4.3-5.6 [facility] Comment on above: Order Comment: Karina villarreal Type: BLOOD SPECIMEN Ordering Facility: [facility] Address: [address] [place] [address] Result Comment: [place] Diabetes Association guidelines indicate that patients with HgbA1c in the range 5.7-6.4% are at increased risk for development of diabetes, and intervention by lifestyle modification may be beneficial. HgbA1c greater or equal to 6.5% is considered diagnostic of diabetes. Performed By: #### 5 8410-2 #### [facility] CLIA [id number] [address] [place] [address] [place] Hematocrit Auto (Bld) [Volum e fraction]on 07-27-2023 Hematocrit (Bld) [Volume fraction] 51.6 % High 39.0-51.0 [facility] Hemoglobin [Mass/volume] in Bloodon 07-27-2023 Hemoglobin (Bld) [Mass/Vol] 16.6 g/dL 13.0-17.0 [facility] Laboratory - Chemistry and C hemistry - challengeon 07-27-2023 Albumin [Mass/Vol] 4.3 g/dL 3.9-4.9 [facility] ALP [Catalytic activity/Vol] 100 U/L 38-113 [facility] ALT [Catalytic activity/Vol] 33 U/L 10-54 [facility] AST [Catalytic activity/Vol] 26 U/L 14-40 [facility] Bilirubin [Mass/Vol] 0.2 mg/dL 0.2-1.3 [facility] Calcium [Mass/Vol] 10.5 mg/dL High 8.5-10.2 [facility] Chloride [Moles/Vol] 101 mmol/L 97-105 [facility] CO2 [Moles/Vol] 25 mmol/L 22-30 [facility] Creatinine [Mass/Vol] 0.73 mg/dL 0.73-1.[address] [facility] Glucose [Mass/Vol] 82 mg/dL 74-99 [facility] Comment on above: The [place] Diabete s Association (ADA) provides guidance for cutoff values for fasting glucose and random glucose. The ADA defines fasting as no caloric intake for at least 8 hours. Fasting plasma glucose results between 100 to 125 mg/dL indicate increased risk for diabetes (prediabetes).Fasting plasma glucose results greater than or equal to 126 mg/dL meet the criteria for diagnosis of diabetes. In the absence of unequivocal hyperglycemia, results should be confirmed by repeat testing. In a patient with classic symptoms of hyperglycemia or hyperglycemic crisis, random plasma glucose results greater than or equal to 200 mg/dL meet the criteria for diagnosis of diabetes.Reference: Standards of Medical Care in Diabetes 2016, [place] Diabetes Association. Diabetes Care. 2016.39(Suppl 1). Potassium [Moles/Vol] 4.1 mmol/L 3.7-5.[address] [facility] Sodium [Moles/Vol] 140 mmol/L 136-144 [facility] Urea nitrogen [Mass/Vol] 17 mg/dL 9-24 [facility] Laboratory - Hematology and Cell countson 07-27-2023 HbA1c (Bld) [Mass fraction] 7.1 % High 4.3-5.6 [facility] Comment on above: [place] Diabetes As sociation guidelines indicate that patients with HgbA1c in the range 5.7-6.4% are at increased risk for development of diabetes, and intervention by lifestyle modification may be beneficial. HgbA1c greater or equal to 6.5% is considered diagnostic of diabetes. Leukocytes [#/volume] correc milady for nucleated erythrocytes in Blood by Automated counon 07-27-2023 WBC corrected for nucl RBC Auto (Bld) [#/Vol] 10.12 k/uL 3.70-11.00 [facility] MCH Auto (RBC) [Entitic mass ]on 07-27-2023 MCH (RBC) [Entitic mass] 27.6 pg 26.0-34.0 [facility] MCHC Auto (RBC) [Mass/Vol]on 07-27-2023 MCHC (RBC) [Mass/Vol] 32.2 g/dL 30.5-36.0 [facility] MCV Auto (RBC) [Entitic vol] on 07-27-2023 MCV (RBC) [Entitic vol] 85.7 fL 80.0-100.0 [facility] No Panel Informationon 07-26 Estimated GFR (CKD-EPI) 104 mL/min/1.73m??? >=6 0 [facility] Comment on above: Estimated Glomerular Filtration Rate (eGFR) is calculated using the 2020 CKD-EPI creatinine equation. This equation utilizes serum creatinine, sex, and age as parameters. The creatinine assay has traceable calibration to isotope dilution-mass spectrometry. Refer to KDIGO guidelines for clinical interpretation. In patients with unstable renal function, e.g. those with acute kidney injury, the eGFR may not accurately reflect actual GFR. Nucleated RBC Auto (Bld) [#/ Vol]on 07-27-2023 Nucleated RBC (Bld) [#/Vol] 10*3/uL <0.01 [facility] Platelet mean volume Auto (B ld) [Entitic vol]on 07-27-2023 Platelet mean volume (Bld) [Entitic vol] 10.3 fL 9.0-12.7 [facility] Platelets Auto (Bld) [#/Vol] on 07-27-2023 Platelets (Bld) [#/Vol] 264 10*3/uL 150-400 [facility] Protein [Mass/volume] in Ser um or Plasmaon 07-27-2023 Protein [Mass/Vol] 7.6 g/dL 6.3-8.0 [facility] RBC Auto (Bld) [#/Vol]on RBC (Bld) [#/Vol] 6.02 10*6/uL High 4.20-6.00 [facility] Serum or plasma anion gap de terminationon 07-27-2023 Anion gap [Moles/Vol] 14 mmol/L 9-[address] [facility] CNPNon 07-18-2023 CNPN Telephone (UROLMN) CADEN WILLS ([id number]) 1960 M Date Time Provider Department 07/18/23 NOY MARY During your visit today, we recorded the following information about you: Noy Mary RN 07/18/2023 3:41 PM Signed Called and spoke to Caden Wills regarding pre op issues. Instructed patient to take last dose of Farxiga on 07/23. Informed patient that his case is currently scheduled as [facility] States that he will be going home after pre ops on 07/26 and coming back the following day. No other questions or concerns expressed. Noy Mary RN Allergies As of Date: 07/18/2023 (No Known Allergies) Date Reviewed: 06/19/2023 Reviewed by: Jessica Ordaz, SELIN - Fully Assessed Reason for Visit: 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- Other [1722] Prescriptions as of 07/18/2023 - insulin glargine U-300 conc (TOUJEO MAX U-300 SOLOSTAR) 300 unit/mL (3 mL) inpn Refills(s) 0 - metFORMIN ER (GLUCOPHAGE XR) 500 mg [...] tablet Take 20 mEq by mouth. - omega 1-jpk-hht-fish oil (FISH OIL) 100-160-1,000 mg cap Take 1,000 mg by mouth. - bumetanide (BUMEX ORAL) Take by mouth. 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] 05/03/2023 Scarring of penis [N48.6] 05/03/2023 Erectile dysfunction associated with type 2 beverley*05/03/2023 Encounter Status:Closed by NOY MARY on 07/18/23 Normal [facility] HbA1c HPLC (Bld) [Mass fract ion]on 06-21-2023 HbA1c (Bld) [Mass fraction] 7.4 % [facility] No Panel Informationon 06-20 Bedside Glucose 133 [facility] CNPNon 06-20-2023 CNPN Telephone (RICKEY) CADEN WILLS ([id number]) 1960 M Date Time Provider Department 06/20/23 NOY MARY During your visit today, we recorded the following information about you: Noy Mary RN 06/20/2023 12:26 PM Signed Called Caden Wills and KIM to confirm surgery date of 07/[address] Alberto. Discussed pre op testing on 07/26 in [place]. Cardiology clearance appointment on 06/18 with Ligia Colmenares MD Local cardiology clearance appointment on 06/18 with Simba Kasper MD ([facility] - ph [phone], fx [phone]) Will send urine culture via regular mail Will send hotel information and campus map via regular mail. Asked patient to confirm receipt, and voice any questions or concerns. Also expressed need to discuss DM2 medication management pre operatively Number provided. Noy Mary RN Allergies As of Date: 06/20/2023 (No Known Allergies) Date Reviewed: 06/19/2023 Reviewed by: Jessica Ordaz RN - Fully Assessed Reason for Visit: 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- Other [3602] Prescriptions as of 06/20/2023 - insulin glargine U-300 conc (TOUJEO MAX U-300 SOLOSTAR) 300 unit/mL (3 mL) inpn Refills(s) 0 - metFORMIN ER (GLUCOPHAGE XR) 500 mg [...] tablet Take 20 mEq by mouth. - omega 0-zcp-zch-fish oil (FISH OIL) 100-160-1,000 mg cap Take 1,000 mg by mouth. - bumetanide (BUMEX ORAL) Take by mouth. 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] 05/03/2023 Scarring of penis [N48.6] 05/03/2023 Erectile dysfunction associated with type 2 beverley*05/03/2023 Encounter Status:Closed by NOY MARY on 06/20/23 Normal [facility] CNCOon 06-19-2023 CNCO Letter Text Normal [facility] CNOVon 06-19-2023 CNOV Office Visit (CARDWH ) CADEN WILLS ([id number]) 1960 M Date Time Provider Department 06/19/23 1:00 PM LIGIA COLMENARES During your visit today, we recorded the following information about you: Pulse Blood pressure Weight 68/minute 112/68 124.3 kg Ligia Colmenares MD 06/19/2023 1:23 PM Signed [facility] [place] Department of Cardiovascular Medicine SECTION [...] moving heavy furniture (8.00 METs). 12/06/2022 Robyn Miller Cardiology- [facility] HPI Pleasant 62-year-old man with prior history of coronary disease status post percutaneous intervention to chronically occluded LAD in 2007. Additional history includes diabetes, hypertension and hyperlipidemia. He was admitted in December 2021 to [facility] with chest pain and diagnosed with [...] 1 tablet by mouth every afternoon. omega 1-mvj-zcg-fish oil (FISH OIL) 100-160-1,000 mg cap Take [...] Last 3 (more content not included)... Normal [facility] Cholesterol in LDL Calc [Mas s/Vol]on 06-19-2023 Cholesterol in LDL [Mass/Vol] 66.0 mg/dL [facility] Comment on above: <100 mg/dl [id number] 0-129 mg/dl NEAR OR ABOVE [id number] mg/dl BORDERLINE NLOG814-208 mg/dl HIGH>190 mg/dl VERY HIGH Cholesterol in VLDL Calc [Ma ss/Vol]on 06-19-2023 Cholesterol in VLDL [Mass/Vol] 43.0 mg/dL [facility] ECG COMPLETEon 06-19-2023 Atrial Rate 68 BPM [facility] Calculated P [place] 53 degrees [facility] Calculated R [place] 20 degrees [facility] Calculated T [place] 86 degrees [facility] P-R Interval 188 ms [facility] QRS Duration 88 ms [facility] QT Interval 414 ms [facility] QTC Calculation (Bazett) 440 ms [facility] Ventricular Rate 68 BPM [facility] ECG COMPLETE Ventricular Rate : 6 8 BPM Atrial Rate : 68 BPM P-R Interval : 188 ms QRS Duration : 88 ms Q-T Interval : 414 ms QTC Calculation(Bazett) : 440 ms Calculated P [place] : 53 degrees Calculated R [place] : 20 degrees Calculated T [place] : 86 degrees NORMAL SINUS RHYTHM LOW VOLTAGE QRS NONSPECIFIC ST ABNORMALITY ABNORMAL ECG Confirmed by LIGIA COLMENARES M.D. ([id number]), newspaper editor managing Lainey Agee ([id number]) on 06/19/2023 2:11:39 PM NAME : CADEN WILLS PID : [id number] : 1960 Gender : Male Race : Unknown ORD : [id number] Procedure Date : Jun 19 2023 13:03:26 Edit Date : Jun 19 2023 14:11:40 Diagnosis: NORMAL SINUS RHYTHM LOW VOLTAGE QRS NONSPECIFIC ST ABNORMALITY ABNORMAL ECG Confirmed by LIGIA COLMENARES M.D. ([id number]), newspaper editor managing Lainey Agee ([id number]) on 06/19/2023 2:11:39 PM Test Reason : Location : 105 : CAR Overread By : LIGIA COLMENARES M.D. Edited By : Lainey Agee Referred By : LIGIA COLMENARES Acquired by : Arnaldo waters [facility] Estimated glomerular filtrat ion rate (GFR) non- Americanon 06-19-2023 GFR/1.73 sq M.predicted among non-blacks MDRD (S/P/Bld) [Vol rate/Area] mL/min/{1.73_m2} >=60 [facility] Laboratory - Chemistry and C hemistry - challengeon 06-19-2023 Calcium [Mass/Vol] 8.7 mg/dL 8.5-10.1 [facility] Chloride [Moles/Vol] 103 mmol/L 98-107 [facility] Cholesterol [Mass/Vol] 141 mg/dL <=200 [facility] Cholesterol in HDL [Mass/Vol] 32 mg/dL 40-60 [facility] Comment on above: > or =60 mg/dl - LOW CARDIOVASCULAR RISK<40 mg/dl - HIGH CARDIOVASCULAR RISK CO2 [Moles/Vol] 29.5 mmol/L 21.0-32.0 [facility] Creatinine [Mass/Vol] 0.86 mg/dL 0.70-1.[address] [facility] GFR/1.73 sq M.predicted MDRD (S/P/Bld) [Vol rate/Area] mL/min/{1.73_m2} >=60 [facility] Glucose [Mass/Vol] 143 mg/dL 74-106 [facility] Potassium [Moles/Vol] 4.2 mmol/L 3.5-5.[address] [facility] Sodium [Moles/Vol] 141 mmol/L 136-145 [facility] Triglyceride [Mass/Vol] 215 mg/dL <=150 F [facility] Urea nitrogen [Mass/Vol] 15.0 mg/dL 7.0-18.0 [facility] Urea nitrogen/Creatinine [Mass ratio] 17.4 mg/mg [facility] Office Visiton 06-19-2023 Follow-up visit [id number] Caden Wills 1960 M Date Provider Department Center 06/19/2023 Huang-SIMBA KASPER [facility] Family History Problem Relation Age of Onset Coronary artery disease Father Family Status - Relation Status Age at Father Level of Service:68359 PA OFFICE/OUTPATIENT ESTABLISHED MOD MDM 30 MIN Normal [facility] Serum or plasma anion gap de terminationon 06-19-2023 Anion gap [Moles/Vol] 12.7 mmol/L Fi [facility] Serum or plasma total choles terol/high density lipoprotein (HDL) cholesterol mass evelyn 06-19-2023 Cholesterol.total/Radha sterol in HDL [Mass ratio] 4.4 {ratio} [facility] Comment on above: 3.3 - 4.4 LOW RISK4. 4 - 7.1 AVERAGE RISK7.1 - 11.0 MODERATE RISK>11.0 [facility] [place] [facility] CHUYN Telephone (RICKEY) CADEN WILLS ([id number]) 1960 M Date Time Provider Department 06/14/23 NOY MARY During your visit today, we recorded the following information about you: Noy Mary RN 06/14/2023 9:45 AM Signed Called Caden Wills and KIM to confirm surgery date of 07/[address] Alberto. Discussed pre op testing on 07/26 in [place], or he could make two trips. Asked him to confirm Asked patient to confirm receipt, and voice any questions or concerns. Number provided. Noy Mary RN Allergies As of Date: 06/14/2023 (No Known Allergies) Date Reviewed: 05/03/2023 Reviewed by: Claudia Burt OCCA - Fully Assessed Reason for Visit: 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- Other [3602] Prescriptions as of 06/14/2023 - metFORMIN ER [...] tablet by mouth every afternoon. - omega 3-kqd-ltq-fish oil (FISH OIL) 100-160-1,000 mg cap Take 1,000 mg by mouth. - bumetanide (BUMEX ORAL) Take by mouth. 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 - omega 9-shr-asv-fish oil (FISH OIL) 100-160-1,000 mg cap Take 1,000 mg by mouth. - bumetanide (BUMEX ORAL) Take by mouth. 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 00TIFF [facility] CNOVon 05-03-2023 CNOV Office Visit (UROLMN ) CADEN WILLS ([id number]) 1960 M Date Time Provider Department 05/03/23 2:00 PM JIAN ALBERTO During your visit today, we recorded the following information about you: Pulse Blood pressure Weight Height 67/minute 137/78 123.4 kg 1.778 m Jian Alberto MD 05/03/2023 2:28 PM Signed [facility] NEW PATIENT HISTORY AND PHYSICAL EXAM PATIENT INFO: Caden Wills 63 year old REFERRING M.D.: Antonia Bush MD [address] [address] This consult was requested by Dr. Bush for an opinion regarding buried penis and erectile dysfunction, and my final recommendations will be communicated to the requesting health care provider by way of the shared medical record for internal providers or letter via the [employer] for external providers. 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 , interested in future sexual life. [...] penis repair - timed voids q3h Giovanni Mulligan MD Male Genitourinary Reconstruction AND Prosthetic Surgery [...] noted ASSESSMENT/PLAN: (more content not included)... Normal [facility] URINALYSIS, REFLEX MICROSCOP ICon 05-03-2023 Bilirubin Ql (U) Negative Negative [facility] Clarity (Unsp spec) Clear Clear [facility] Color (U) Light Yellow Yellow [facility] Glucose Test strip (U) [Mass/Vol] 4+ Abnormal Trace, Negative [facility] Hemoglobin Ql (U) Negative Negative, Trace [facility] Ketones Ql (U) Negative Negative, Trace [facility] Leukocyte esterase Test strip Ql (U) 25 Quintin/uL Negative, 25 Quintin/uL [facility] Nitrite Ql (U) Negative Negative [facility] pH (U) 5.5 [pH] 5.0 - 8.0 [facility] Protein (U) [Mass/Vol] Negative Trace , Negative [facility] Specific gravity (U) [Rel density] 1.032 High 1.005 - 1.030 [facility] Urobilinogen Ql (U) Negative Negative [facility] Bilirubin Ql (U) Negative Normal Negative [facility] Comment on above: Order Comment: Speci men Type: BLOOD SPECIMEN Ordering Facility: [facility] Address: [address] [address] Performed By: #### 5 8410-2 #### [facility] CLIA [id number] [address] [place] [address] [place] Clarity (Unsp spec) Clear Normal Clear [facility] Comment on above: Order Comment: Speci men Type: BLOOD SPECIMEN Ordering Facility: [facility] Address: [address] [place] [address] Performed By: #### 5 8410-2 #### [facility] CLIA [id number] [address] [place] [address] [place] Color (U) Light Yellow Normal Yellow [facility] Comment on above: Order Comment: Speci men Type: BLOOD SPECIMEN Ordering Facility: [facility] Address: [address] [place] [address] Performed By: #### 5 8410-2 #### [facility] CLIA [id number] [address] [place] [address] [place] Glucose Test strip (U) [Mass/Vol] 4+ Abnormal Trace, Negative [facility] Comment on above: Order Comment: Speci men Type: BLOOD SPECIMEN Ordering Facility: [facility] Address: [address] [place], [place] [address] Performed By: #### 5 8410-2 #### [facility] CLIA [id number] [address] [place], [place] [address] [place] Hemoglobin Ql (U) Negative Normal Negative, Trace [facility] Comment on above: Order Comment: Speci men Type: BLOOD SPECIMEN Ordering Facility: [facility] Address: [address] [place], [place] [address] Performed By: #### 5 8410-2 #### [facility] CLIA [id number] [address] [place] [address] [place] Ketones Ql (U) Negative Normal Negative, Trace [facility] Comment on above: Order Comment: Speci men Type: BLOOD SPECIMEN Ordering Facility: [facility] Address: [address] [place] [address] Performed By: #### 5 8410-2 #### [facility] CLIA [id number] [address] [place] [address] [place] Leukocyte esterase Test strip Ql (U) 25 Quintin/uL Normal Negative, 25 Quintin/uL [facility] Comment on above: Order Comment: Speci men Type: BLOOD SPECIMEN Ordering Facility: [facility] Address: [address] [place] [address] Performed By: #### 5 8410-2 #### [facility] CLIA [id number] [address] [place] [address] [place] Nitrite Ql (U) Negative Normal Negative [facility] Comment on above: Order Comment: Speci men Type: BLOOD SPECIMEN Ordering Facility: [facility] Address: [address] [place] [address] Performed By: #### 5 8410-2 #### [facility] CLIA [id number] [address] [place] [address] [place] pH (U) 5.5 [pH] Normal 5.0-8.0 [facility] Comment on above: Order Comment: Speci men Type: BLOOD SPECIMEN Ordering Facility: [facility] Address: [address] [place] [address] Performed By: #### 5 8410-2 #### [facility] CLIA [id number] [address] [place] [address] [place] Protein (U) [Mass/Vol] Negative Normal Trace , Negative [facility] Comment on above: Order Comment: Speci men Type: BLOOD SPECIMEN Ordering Facility: [facility] Address: [address] [place] [address] Performed By: #### 5 8410-2 #### [facility] CLIA [id number] [address] [place] [address] [place] Specific gravity (U) [Rel density] 1.032 High 1.005-1.030 [facility] Comment on above: Order Comment: Speci men Type: BLOOD SPECIMEN Ordering Facility: [facility] Address: [address] [place] [address] Performed By: #### 5 8410-2 #### [facility] CLIA [id number] [address] [place] [address] [place] Urobilinogen Ql (U) Negative Normal Negative [facility] Comment on above: Order Comment: Speci men Type: BLOOD SPECIMEN Ordering Facility: [facility] Address: [address] [place] [address] Performed By: #### 5 8410-2 #### [facility] CLIA [id number] [address] [place] [address] [place] Physician Referralon 023 Physician Referral [id number] .00TIFF Normal [facility] Physician Referralon 023 Physician Referral [id number] .00TIFF Normal [facility] Physician Referralon 023 Physician Referral [id number]#1 .00TIFF Normal [facility] Screenson 03-23-2023 Screens [id number] .00TIFF Normal [facility] Ambulatory Visit Summaryon 1 05-23-2022 Ambulatory Visit Summary CADEN WILLS :1960 Visit Date:03/22/2023 Ambulatory Visit Instructions Your Diagnosis ED (erectile dysfunction) Phimosis Hidden penis Balanoposthitis Anticoagulated Tests Performed Urnls Dip Stick Auto w/o Microscopy POC 86892 Your Care Team Attending Physician - Antonia [...] Following Appointments Follow Up with ROXANN BARR, Antonia Sharma, URL When: Where: [facility] [employer] [address] [place], [place] [id number]- Someone Will Contact You Regarding These Appointments [facility] [place] Ambulatory Referral, Urology, Dr. Alberto, 03/22/23 11:49:00 EST, Phimosis Normal [facility] Patient Educationon 03-22-20 Patient Education Urology Erectile [...] these instructions at home: Medicines ? Take edfw-kxt-hfqzfya and prescription medicines only as told by [...] include cig (more content not included)... 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 S/p bypass [...] seen by Dr. Jian Alberto at the [facility] for his opinion. He can utilize pnaw-nun-ytrexie Monistat cream/triple antibiotic on a as needed [...] with voice recognition artificial intelligence software, specifically [employer] and [employer] (more content not included)... Normal [facility] Comment on above: Result Comment: Elec tronically Signed By: Antonia BUSH MD\.br\Date and Time Signed: 03/22/23 12:07 EST\.br\Electronically Co-Signed By: Maria M Campos\.br\Date and Time Co-Signed: 03/22/23 11:53 EST A1C HEMOGLOBINon 03-08-2023 HbA1c (Bld) [Mass fraction] 7.2 % [facility] Other Glucose - FINGER STICKon Glucose [Mass/Vol] 187 mg/dL [facility] Other HbA1c (Bld) [Mass fraction]o n 03-08-2023 A1C HEMOGLOBIN [facility] Other Orders Onlyon 02-08-2023 Orders Only [id number] [place],Caden A 1960 M Date Provider Department Center 02/08/2023 120-JAMIL, [facility]. Family History Problem Relation Age of Onset Coronary artery disease Father Family Status - Relation Status Age at Father Normal [facility] Orders Onlyon 01-16-2023 Orders Only [id number] Elio,Caden A 1960 M Date Provider Department Center 01/16/2023 120-JAMIL, [facility]. Family History Problem Relation Age of Onset Coronary artery disease Father Family Status - Relation Status Age at Father Normal [facility] A1C HEMOGLOBINon 11-24-2022 HbA1c (Bld) [Mass fraction] 6.6 % [facility] Other Glucose - FINGER STICKon Glucose [Mass/Vol] 102 mg/dL [facility] Other HbA1c (Bld) [Mass fraction]o n 11-24-2022 A1C HEMOGLOBIN [facility] Other A1C HEMOGLOBINon 08-22-2022 HbA1c (Bld) [Mass fraction] 6.5 % [facility] Other Glucose - FINGER STICKon Glucose [Mass/Vol] 159 mg/dL [facility] Other HbA1c (Bld) [Mass fraction]o n 08-22-2022 A1C HEMOGLOBIN [facility] Other A1C HEMOGLOBINon 05-19-2022 HbA1c (Bld) [Mass fraction] 6.9 % Ap[facility] [employer] Other Glucose - FINGER STICKon Glucose [Mass/Vol] 206 mg/dL [facility] Other HbA1c (Bld) [Mass fraction]o n 05-19-2022 A1C HEMOGLOBIN [facility] [employer] Other UA RANDOMon 04-05-2022 Bilirubin Ql (U) Negative Normal NEGATIVE [facility] Comment on above: Performed By: #### U A #### [facility] [address] [place] [address] Dr. Jose Rojas Clarity (U) CLOUDY Abnormal CLEAR [facility] Comment on above: Performed By: #### U A #### [facility] [address] [place] [address] Dr. Jose Rojas Color (U) LT. YELLOW Normal YELLOW [facility] Comment on above: Performed By: #### U A #### [facility] [address] [place] [address] Dr. Jose Rojas Glucose Ql (U) >1000 Abnormal NEGATIVE [facility] Comment on above: Performed By: #### U A #### [facility] [address] [place] [address] Dr. Jose Rojas Hemoglobin Ql (U) MODERATE Abnormal NEGATIVE [facility] Comment on above: Performed By: #### U A #### [facility] [address] [place] [address] Dr. Jose Rojas Ketones Ql (U) Negative Normal NEGATIVE [facility] Comment on above: Performed By: #### U A #### [facility] [address] [place] [address] Dr. Jose Rojas LEUKOCYTES MODERATE Abnormal NEGATIVE [facility] Comment on above: Performed By: #### U A #### [facility] [address] [place] [address] Dr. Jose Rojas Nitrite Ql (U) Negative Normal NEGATIVE [facility] Comment on above: Performed By: #### U A #### [facility] [address] [address] [address] Jose Rojas pH (U) 5.5 [pH] Normal 5-9 [facility] Comment on above: Performed By: #### U A #### [facility] [address] [address] [address] Jose Rojas SPEC GRAVITY <=1.005 Abnormal 1.005-<=1.0 25 [facility] Comment on above: Performed By: #### U A #### [facility] [address] [address] [address] Jose Rojas UA PROTEIN Negative Normal NEGATIVE/ TRACE [facility] Comment on above: Performed By: #### U A #### [facility] [address] [place] [address] Dr. Jose Rojas Urobilinogen Qn (U) 0.2 {Ritu'U}/dL Normal 0.2 - 1. 0 [facility] Comment on above: Performed By: #### U A #### [facility] [address] [place] [address] Dr. Jose Rojas ECHOCARDIO M/2D COMPLETEon 1 05-31-2021 ECHOCARDIO M/2D COMPLETE Patient: CADEN WILLS Exam Date: 03/30/2022 : 1960 Gender:M Ordering : DR SIMBA KASPER M.D. Admission #: [id number] Family : DR FAHAD ACEVES D.O. Order #: [id number] CLICK HERE TO VIEW EXAM ECHOCARDIOGRAM REPORT [...] Muniz M.D. on 03/31/2022 at 14:44 Normal [facility] BNPon 02-16-2022 Natriuretic peptide B (Bld) [Mass/Vol] 335.0 pg/mL Normal <=900.0 [facility] Comment on above: Performed By: #### B PLASTICS AND COMPOSITES INSPECTOR #### [facility] [address] [place] [address] Dr. Jose Rojas CBC AUTO DIFFon 02-16-2022 BASO # 0.1 103/ul Normal 0.0-0.1 [facility] Comment on above: Performed By: #### D ATCBC #### [facility] [address] [place] [address] Dr. Jose Rojas Basophils/100 WBC (Bld) 0.7 % Normal 0.2-2.0 [facility] Comment on above: Performed By: #### D ATCBC #### [facility] [address] [place] [address] Dr. Jose Rojas EO # 0.4 103/ul Normal 0.0-0.7 [facility] Comment on above: Performed By: #### D ATCBC #### [facility] [address] [place] [address] Dr. Jose Rojas Eosinophils/100 WBC (Bld) 3.9 % Normal 0.9-7.0 [facility] Comment on above: Performed By: #### D ATCBC #### [facility] [address] [place] [address] Dr. Jose Rojas Erythrocyte distribution width (RBC) [Ratio] 16.5 % Critically high 11.0-15.0 [facility] Comment on above: Performed By: #### D ATCBC #### [facility] [address] [address] [address] Jose Rojas Hematocrit (Bld) [Volume fraction] 44.9 % Normal 42.0-54.0 [facility] Comment on above: Performed By: #### D ATCBC #### [facility] [address] [address] [address] Jose Rojas Hemoglobin (Bld) [Mass/Vol] 14.3 g/dL Normal 14.0-18.0 [facility] Comment on above: Performed By: #### D ATCBC #### [facility] [address] [address] [address] Jose Rojas IG # 0.33 10e3/ul Critically high 0.00-0.03 [facility] Comment on above: Performed By: #### D ATCBC #### [facility] [address] [place] [address] Dr. Jose Rojas IG % 3.5 % Critically high 0.0-0.5 [facility] Comment on above: Performed By: #### D ATCBC #### [facility] [address] [address] [address] Jose Rojas LYMPH # 1.9 103/ul Normal 1.2-3.8 [facility] Comment on above: Performed By: #### D ATCBC #### [facility] [address] [place] [address] Dr. Jose Rojas Lymphocytes/100 WBC (Bld) 19.8 % Critically low 20.5-60.0 [facility] Comment on above: Performed By: #### D ATCBC #### [facility] [address] [address] [address] Jose Rojas MCH (RBC) [Entitic mass] 27.1 pg Normal 25.9-34.0 [facility] Comment on above: Performed By: #### D ATCBC #### [facility] [address] [address] [address] Jose Rojas MCHC (RBC) [Mass/Vol] 31.8 g/dL Normal 29.9-35.2 [facility] Comment on above: Performed By: #### D ATCBC #### [facility] [address] [address] [address] Jose Rojas MCV (RBC) [Entitic vol] 85.0 fL Normal 80.0-94.0 [facility] Comment on above: Performed By: #### D ATCBC #### [facility] [address] [address] [address] Jose Rojas MONO # 0.9 103/ul Critically high 0.3-0.8 [facility] Comment on above: Performed By: #### D ATCBC #### [facility] [address] [address] [address] Jose Rojas Monocytes/100 WBC (Bld) 9.1 % Normal 1.7-12.0 [facility] Comment on above: Performed By: #### D ATCBC #### [facility] [address] [place] [address] Dr. Jose Rojas NEUT # 6.0 103/ul Normal 1.4-6.5 [facility] Comment on above: Performed By: #### D ATCBC #### [facility] [address] [address] [address] Jose Rojas Neutrophils/100 WBC (Bld) 63.0 % Normal 43.0-75.0 [facility] Comment on above: Performed By: #### D ATCBC #### [facility] [address] [place] [address] Dr. Jose Rojas Platelet mean volume (Bld) [Entitic vol] 9.2 fL Critically low 9.5-13.5 [facility] Comment on above: Performed By: #### D ATCBC #### [facility] [address] [address] [address] Jose Rojas PLT 485 103/ul Critically high 150-450 [facility] Comment on above: Performed By: #### D ATCBC #### [facility] [address] [place] [address] Dr. Jose Rojas RBC 5.28 106/ul Normal 4.70-6.10 [facility] Comment on above: Performed By: #### D ATCBC #### [facility] [address] [address] [address] Jose Rojas WBC 9.6 103/ul Normal 4.0-11.0 [facility] Comment on above: Performed By: #### D ATCBC #### [facility] [address] [address] [address] Jose Rojas EMERSON- BMP WITH LIPIDon 2021 Anion gap [Moles/Vol] 14.3 mmol/L Normal [facility] Comment on above: Performed By: #### D ATBMP #### [facility] [address] [address] [address] Jose Rojas Calcium [Mass/Vol] 9.9 mg/dL Normal 8.5-10.1 [facility] Comment on above: Performed By: #### D ATBMP #### [facility] [address] [address] [address] Jose Rojas Chloride [Moles/Vol] 101 mmol/L Normal 98-107 [facility] Comment on above: Performed By: #### D ATBMP #### [facility] [address] [address] [address] Jose Rojas Cholesterol [Mass/Vol] 110 mg/dL Normal <=200 [facility] Comment on above: Performed By: #### D ATBMP #### [facility] [address] [address] [address] Jose Rojas Cholesterol in HDL [Mass/Vol] 28 mg/dL Critically low 40-60 [facility] Comment on above: Performed By: #### D ATBMP #### [facility] [address] [address] [address] Jose Rojas Cholesterol in LDL [Mass/Vol] 21.2 mg/dL Normal [facility] Comment on above: Performed By: #### D ATBMP #### [facility] [address] [address] [address] Jose Rojas CO2 [Moles/Vol] 28.2 mmol/L Normal 21.0-32.0 [facility] Comment on above: Performed By: #### D ATBMP #### [facility] [address] [address] [address] Jose Rojas Creatinine [Mass/Vol] 1.14 mg/dL Normal 0.70-1.30 [facility] Comment on above: Performed By: #### D ATBMP #### [facility] [address] [address] [address] Jose Rojas EGFR-AF GABONESE >60 Normal >=60 [facility] Comment on above: Performed By: #### D ATBMP #### [facility] [address] [address] [address] Jose Rojas EGFR-NON AF GABONESE >60 Normal >=60 [facility] Comment on above: Performed By: #### D ATBMP #### [facility] [address] [address] [address] Jose Rojas Glucose [Mass/Vol] 254 mg/dL Critically high 74-[address] [facility] Comment on above: Performed By: #### D ATBMP #### [facility] [address] [address] [address] Jose Rojas HDL NORMAL > or = 60 mg/dl - LO W CARDIOVASCULAR RISK <40 mg/dl - HIGH CARDIOVASCULAR RISK Normal [facility] Comment on above: Performed By: #### D ATBMP #### [facility] [address] [address] [address] Jose Rojas LDL CALC NORMAL SEE BELOW Normal [facility] Comment on above: Result Comment: <100 mg/dl OPTIMAL 100 - 129 mg/dl NEAR OR ABOVE OPTIMAL 130 - 159 mg/dl BORDERLINE HIGH 160 - 189 mg/dl HIGH >190 mg/dl VERY HIGH Performed By: #### D ATBMP #### [facility] [address] [address] [address] Jose oRjas Potassium [Moles/Vol] 4.5 mmol/L Normal 3.5-5.1 [facility] Comment on above: Performed By: #### D ATBMP #### [facility] [address] [address] [address] Jose Rojas Sodium [Moles/Vol] 139 mmol/L Normal 136-145 [facility] Comment on above: Performed By: #### D ATBMP #### [facility] [address] [address] [address] Jose Rojas Triglyceride [Mass/Vol] 304 mg/dL Critically high <=150 [facility] Comment on above: Performed By: #### D ATBMP #### [facility] [address] [address] [address] Jose Rojas Urea nitrogen [Mass/Vol] 21.0 mg/dL Critically high 7.0-18.0 [facility] Comment on above: Performed By: #### D ATBMP #### [facility] [address] [address] [address] Jose Rojas Urea nitrogen/Creatinine [Mass ratio] 18.4 mg/mg Normal [facility] Comment on above: Performed By: #### D ATBMP #### [facility] [address] [address] [address] Jose Rojas VLDL CALC 60.8 mg/dL Normal [facility] Comment on above: Performed By: #### D ATBMP #### [facility] [address] [address] [address] Jose Rojas Albumin [Mass/volume] in Ser um or PlasmaOrdered By: Yamilex Foster on 02-11-2022 Albumin [Mass/Vol] 3.5 g/dL 3.2-5.5 [facility] Cholesterol [Mass/volume] in Serum or PlasmaOrdered By: Yamilex Foster on 02-11-2022 Cholesterol [Mass/Vol] 96 mg/dL 140-200 [facility] Comment on above: Chol less than 200 m g/dl low riskChol 201-239 mg/dl borderline riskChol 240 mg/dl and greater high risk Cholesterol in LDL Calc [Mas s/Vol]Ordered By: Yamilex Foster on 02-11-2022 Cholesterol in LDL [Mass/Vol] 34 mg/dL 0-100 [facility] Comment on above: LDL ATP III CLASSIFI CATIONLDL less than 100 mg/dL OptimalLDL 100-129 mg/dL Near or above optimalLDL 130-159 mg/dL Borderline highLDL 160-189 mg/dL HighLDL greater than 189 mg/dL Very high Cholesterol in VLDL Calc [Ma ss/Vol]Ordered By: Yamilex Foster on 02-11-2022 Cholesterol in VLDL [Mass/Vol] 28 mg/dL [facility] Creatinine [Mass/volume] in UrineOrdered By: Yamilex Foster on 02-11-2022 Creatinine (U) [Mass/Vol] 49.7 mg/dL [facility] Comment on above: No reference range e stablished Creatinine and Glomerular fi ltration rate.predicted panel (S/P/Bld)Ordered By: Yamilex Foster on 02-11-2022 Creatinine [Mass/Vol] 0.85 mg/dL 0.64-1.[address] [facility] Estimated glomerular filtrat ion rate (GFR) non- AmericanOrdered By: Yamilex Foster on 02-11-2022 GFR/1.73 sq M.predicted among non-blacks MDRD (S/P/Bld) [Vol rate/Area] > 60 mL/Min [facility] Globulin Calc (S) [Mass/Vol] Ordered By: Yamilex Foster on 02-11-2022 Globulin (S) [Mass/Vol] 3.2 g/dL F [facility] - Chemistry and C hemistry - challengeOrdered By: Yamilex Foster on 02-11-2022 Cobalamin (Vitamin B12) [Mass/Vol] 227 pg/mL 180-914 [facility] No Panel InformationOrdered By: Yamilex Foster on 02-11-2022 Estimated GFR () > 60 mL/Min [facility] Comment on above: GFR estimated refere nce range: According to KDOQI guidelines, <60 ml/min/1.73m2 is sufficient to diagnose a patient with chronic kidney disease. Pharmacy Creatinine Clearance (Chem N/A [facility] Protein [Mass/volume] in Ser um or PlasmaOrdered By: Yamilex Foster on 02-11-2022 Protein [Mass/Vol] 6.7 g/dL 6.1-7.9 [facility] Serum or plasma alanine mccoy otransferase measurement without P-5'-P (enzymatic activiOrdered By: Yamilex Foster on 02-11-2022 ALT No additional P-5'-P [Catalytic activity/Vol] 23 U/L [facility] Serum or plasma albumin/glob ulin mass ratioOrdered By: Yamilex Foster on 02-11-2022 Albumin/Globulin [Mass ratio] 1.1 {ratio} [facility] Serum or plasma alkaline elle sphatase measurement (enzymatic activity/volume)Ordered By: Yamilex Foster on 02-11-2022 ALP [Catalytic activity/Vol] 82 U/L 3292 [facility] Serum or plasma anion gap de terminationOrdered By: Yamilex Foster on 02-11-2022 Anion gap [Moles/Vol] 15.4 mmol/L 6.0-15.0 [facility] Serum or plasma aspartate am inotransferase measurement (enzymatic activity/volume)Ordered By: Yamilex Foster on 02-11-2022 AST [Catalytic activity/Vol] 22 U/L [facility] Serum or plasma calcium destiny urement (mass/volume)Ordered By: Yamilex Foster on 02-11-2022 Calcium [Mass/Vol] 9.7 mg/dL 8.2-10.2 [facility] Serum or plasma chloride donato surement (moles/volume)Ordered By: Yamilex Foster on 02-11-2022 Chloride [Moles/Vol] 101 mmol/L 95-114 [facility] Serum or plasma glucose destiny urement (mass/volume)Ordered By: Yamilex Foster on 02-11-2022 Glucose [Mass/Vol] 85 mg/dL 70-100 [facility] Comment on above: ADA recommended refe rence rangeRandom Glucose Reference Range is dependent on time and content of last meal. Glucose of more than 200 mg/dL in a nonstressed, ambulatory subject supports the diagnosis of Diabetes Mellitus. Serum or plasma high density lipoprotein (HDL) cholesterol measurementOrdered By: Yamilex Foster on 02-11-2022 Cholesterol in HDL [Mass/Vol] 34 mg/dL - [facility] Comment on above: HDL CHOL ATP-III CLA SSIFICATION Cardiovascular RiskHDL > or equal to 60 mg/dL LOWHDL < 40 mg/dL HIGH Serum or plasma potassium me asurement (moles/volume)Ordered By: Yamilex Foster on 02-11-2022 Potassium [Moles/Vol] 4.2 mmol/L 3.5-5.[address] [facility] Serum or plasma sodium measu rement (moles/volume)Ordered By: Yamilex Foster on 02-11-2022 Sodium [Moles/Vol] 138 mmol/L 136-146 [facility] Serum or plasma total biliru bin measurement (mass/volume)Ordered By: Yamilex Foster on 02-11-2022 Bilirubin [Mass/Vol] 0.7 mg/dL 0.3-1.2 [facility] Serum or plasma total carbon dioxide measurement (moles/volume)Ordered By: Yamilex Foster on 02-11-2022 CO2 [Moles/Vol] 25.8 mmol/L 22.0-30.0 [facility] Serum or plasma total choles terol/high density lipoprotein (HDL) cholesterol mass ratOrdered By: Yamilex Foster on 02-11-2022 Cholesterol.total/Radha sterol in HDL [Mass ratio] 2.8 {ratio} <5.0 [facility] Serum or plasma urea nitroge n measurement (mass/volume)Ordered By: Yamilex Foster on 02-11-2022 Urea nitrogen [Mass/Vol] 16 mg/dL 9-23 [facility] Triglyceride [Mass/volume] i n Serum or PlasmaOrdered By: Yamilex Foster on 02-11-2022 Triglyceride [Mass/Vol] 140 mg/dL 35-149 [facility] Comment on above: TRIG ATP III CLASSIF [...] (U) [Mass/Vol] 3.4 mg/dL 0.0-1.8 [facility] Urine microalbumin/creatinin e mass ratioOrdered By: Yamilex Foster on 02-11-2022 Albumin/Creatinine DL <= 20 mg/L (U) [Mass ratio] 68.0 mg/g 0.0-30.0 [facility] Comment on above: 30-300 mg/g indicate s an increased risk for diabetic nephropathy. Greater than 300 mg/g is consistent with clinical nephropathy. (Am. J. Kidney Disease 1995, 25:107) BNPon 12-31-2021 Natriuretic peptide B (Bld) [Mass/Vol] 229.0 pg/mL Normal <=900.0 [facility] Comment on above: Performed By: #### B PLASTICS AND COMPOSITES INSPECTOR #### [facility] [address] [place] [address] Dr. Jose Rojas CBC AUTO DIFFon 12-31-2021 BASO # 0.1 103/ul Normal 0.0-0.1 [facility] Comment on above: Performed By: #### D ATCBC #### [facility] [address] [place] [address] Dr. oJse Rojas Basophils/100 WBC (Bld) 0.5 % Normal 0.2-2.0 [facility] Comment on above: Performed By: #### D ATCBC #### [facility] [address] [place] [address] Dr. Jose Rojas EO # 0.1 103/ul Normal 0.0-0.7 [facility] Comment on above: Performed By: #### D ATCBC #### [facility] [address] [place] [address] Dr. Jose Rojas Eosinophils/100 WBC (Bld) 1.0 % Normal 0.9-7.0 [facility] Comment on above: Performed By: #### D ATCBC #### [facility] [address] [place] [address] Dr. Jose Rojas Erythrocyte distribution width (RBC) [Ratio] 15.1 % Critically high 11.0-15.0 [facility] Comment on above: Performed By: #### D ATCBC #### [facility] [address] [address] [address] Jose Rojas Hematocrit (Bld) [Volume fraction] 49.2 % Normal 42.0-54.0 [facility] Comment on above: Performed By: #### D ATCBC #### [facility] [address] [address] [address] Jose Rojas Hemoglobin (Bld) [Mass/Vol] 16.1 g/dL Normal 14.0-18.0 [facility] Comment on above: Performed By: #### D ATCBC #### [facility] [address] [address] [address] Jose Rojas IG # 0.07 10e3/ul Critically high 0.00-0.03 [facility] Comment on above: Performed By: #### D ATCBC #### [facility] [address] [place] [address] Dr. Jose Rojas IG % 0.7 % Critically high 0.0-0.5 [facility] Comment on above: Performed By: #### D ATCBC #### [facility] [address] [address] [address] Jose Rojas LYMPH # 2.1 103/ul Normal 1.2-3.8 [facility] Comment on above: Performed By: #### D ATCBC #### [facility] [address] [address] [address] Jose Rojas Lymphocytes/100 WBC (Bld) 22.2 % Normal 20.5-60.0 [facility] Comment on above: Performed By: #### D ATCBC #### [facility] [address] [address] [address] Jose Rojas MANUAL DIFF REQ NO Normal [facility] Comment on above: Performed By: #### D ATCBC #### [facility] [address] [place] [address] Dr. Jose Rojas MCH (RBC) [Entitic mass] 28.0 pg Normal 25.9-34.0 [facility] Comment on above: Performed By: #### D ATCBC #### [facility] [address] [address] [address] Jose Rojas MCHC (RBC) [Mass/Vol] 32.7 g/dL Normal 29.9-35.2 [facility] Comment on above: Performed By: #### D ATCBC #### [facility] [address] [address] [address] Jose Rojas MCV (RBC) [Entitic vol] 85.6 fL Normal 80.0-94.0 [facility] Comment on above: Performed By: #### D ATCBC #### [facility] [address] [address] [address] Jose Rojas MONO # 1.0 103/ul Critically high 0.3-0.8 [facility] Comment on above: Performed By: #### D ATCBC #### [facility] [address] [address] [address] Jose Rojas Monocytes/100 WBC (Bld) 10.2 % Normal 1.7-12.0 [facility] Comment on above: Performed By: #### D ATCBC #### [facility] [address] [address] [address] Jose Rojas NEUT # 6.3 103/ul Normal 1.4-6.5 [facility] Comment on above: Performed By: #### D ATCBC #### [facility] [address] [address] [address] Jose Rojas Neutrophils/100 WBC (Bld) 65.4 % Normal 43.0-75.0 [facility] Comment on above: Performed By: #### D ATCBC #### [facility] [address] [address] [address] Jose Rojas Platelet mean volume (Bld) [Entitic vol] 9.4 fL Critically low 9.5-13.5 [facility] Comment on above: Performed By: #### D ATCBC #### [facility] [address] [address] [address] Jose Rojas PLT 353 103/ul Normal 150-450 [facility] Comment on above: Performed By: #### D ATCBC #### [facility] [address] [address] [address] Jose Rojas RBC 5.75 106/ul Normal 4.70-6.10 [facility] Comment on above: Performed By: #### D ATCBC #### [facility] [address] [place], [place] [address] Dr. Jose Rojas WBC 9.6 103/ul Normal 4.0-11.0 [facility] Comment on above: Performed By: #### D ATCBC #### [facility] [address] [place], [place] [address] Dr. Jose Rojas Covid-19 PCR (CVDTB)on 12-16 SARS-CoV-2 (COVID-19) RNA PRASHANT+probe Ql (Unsp spec) Not detected Normal NOT DETECTED [facility] Comment on above: Result Comment: When diagnostic [...] this test is supported by the Medical Administrator of Health and Human Service's declaration that [...] used). Performed By: #### C VDTBH #### [facility] [address] [place], [place] [id number] Dr. Jose Rojas PROF CHEM 8 (BAS METB)on Anion gap [Moles/Vol] 14.0 mmol/L Normal [facility] Comment on above: Performed By: #### H STROPN, BMP #### [facility] [address] [address] [address] Jose Rojas Calcium [Mass/Vol] 9.5 mg/dL Normal 8.5-10.1 [facility] Comment on above: Performed By: #### H STROPN, BMP #### [facility] [address] [address] [address] Jose Rojas Chloride [Moles/Vol] 100 mmol/L Normal 98-107 [facility] Comment on above: Performed By: #### H STROPN, BMP #### [facility] [address] [address] [address] Jose Rojas CO2 [Moles/Vol] 26.9 mmol/L Normal 21.0-32.0 [facility] Comment on above: Performed By: #### H STROPN, BMP #### [facility] [address] [address] [address] Jose Rojas Creatinine [Mass/Vol] 1.06 mg/dL Normal 0.70-1.30 [facility] Comment on above: Performed By: #### H STROPN, BMP #### [facility] [address] [address] [address] Jose Rojas EGFR-AF GABONESE >60 Normal >=60 [facility] Comment on above: Performed By: #### H STROPN, BMP #### [facility] [address] [address] [address] Jose Rojas EGFR-NON AF GABONESE >60 Normal >=60 [facility] Comment on above: Performed By: #### H STROPN, BMP #### [facility] [address] [address] [address] Jose Rojas Glucose [Mass/Vol] 152 mg/dL Critically high 74-106 [facility] Comment on above: Performed By: #### H STROPN, BMP #### [facility] [address] [address] [address] Jose Rojas Potassium [Moles/Vol] 3.9 mmol/L Normal 3.5-5.1 [facility] Comment on above: Performed By: #### H STROPN, BMP #### [facility] [address] [address] [address] Jose Rojas Sodium [Moles/Vol] 137 mmol/L Normal 136-145 [facility] Comment on above: Performed By: #### H TOMMY, BMP #### [facility] [address] [address] [address] Jose Rojas Urea nitrogen [Mass/Vol] 19.0 mg/dL Critically high 7.0-18.0 [facility] Comment on above: Performed By: #### H TOMMY, BMP #### [facility] [address] [address] [address] Jose Rojas Urea nitrogen/Creatinine [Mass ratio] 17.9 mg/mg Normal [facility] Comment on above: Performed By: #### H TOMMY, BMP #### [facility] [address] [address] [address] Jose Rojas TROPONIN, HIGH SENSITIVITYon 12-31-2021 HSTROP 6144.5 pg/mL Critically high 4.0-76.1 [facility] Comment on above: Result Comment: CUT- OFF POINTS HAVE BEEN ESTABLISHED BASED ON THE FOURTH UNIVERSAL DEFINITIONS OF MYOCARDIAL INFARCTION. THE UPPER REFERENCE LIMIT (URL) OF TROPONIN, DEFINED THE 99TH PERCENTILE OF cTnI DISTRIBUTION IN A REFERENCE POPULATION, HAS BEEN CONFIRMED THE DECISION THRESHOLD FOR VA DIAGNOSIS. Performed By: #### H TOMMY #### [facility] [address] [place] [address] Dr. Jose Rojas HSTROP 142.5 pg/mL Critically high 4.0-76.1 [facility] Comment on above: Result Comment: CUT- OFF POINTS HAVE BEEN ESTABLISHED BASED ON THE FOURTH UNIVERSAL DEFINITIONS OF MYOCARDIAL INFARCTION. THE UPPER REFERENCE LIMIT (URL) OF TROPONIN, DEFINED THE 99TH PERCENTILE OF cTnI DISTRIBUTION IN A REFERENCE POPULATION, HAS BEEN CONFIRMED THE DECISION THRESHOLD FOR VA DIAGNOSIS. Performed By: #### H TOMMY, BMP #### [facility] [address] [address] [address] Jose Rojas XR CHEST 1 Von [...] by: STORM CONDE Date: 2021-12-31 13:54 Normal [facility] XR LSPINE 2_3 VIEWSon 2021 XR [...] by: HEAVENLY LOUIS Date: 2021-10-31 08:51 Normal [facility] A1C HEMOGLOBINon 10-21-2021 HbA1c (Bld) [Mass fraction] 7.5 % [facility] Other Glucose - FINGER STICKon Glucose [Mass/Vol] 107 mg/dL [facility] Other HbA1c (Bld) [Mass fraction]o n 10-21-2021 A1C HEMOGLOBIN [facility] Other Urinalysis - AUTOMATEDon Appearance (U) cloudy [facility] Other Bilirubin Ql (U) Negative Donald [facility] Other Color (U) yellow [employer] Other Glucose Ql (U) 500 [facility] Other Hemoglobin Ql (U) moderate [employer] Other Ketones Ql (U) Negative [facility] Other Leukocyte esterase Test strip Ql (U) moderate [employer] Other Nitrite Ql (U) Positive [facility] Other pH (U) 6.0 [pH] [employer] Other Protein Ql (U) trace [facility] Other Specific gravity (U) [Rel density] 1.025 [employer] Other Urobilinogen (U) [Mass/Vol] 0.2 mg/dL [employer] Other Urinalysis - AUTOMATED No rt [employer] Other Urine Cultureon 08-11-2021 Bacteria identified Cx Nom (U) [employer] Other A1C HEMOGLOBINon 06-29-2021 HbA1c (Bld) [Mass fraction] 7.4 % [employer] Other Glucose - FINGER STICKon Glucose [Mass/Vol] 168 mg/dL [employer] Other HbA1c (Bld) [Mass fraction]o n 06-29-2021 A1C HEMOGLOBIN [facility] Other A1C HEMOGLOBINon 03-24-2021 HbA1c (Bld) [Mass fraction] 6.6 % [employer] Other Glucose - FINGER STICKon Glucose [Mass/Vol] 171 mg/dL [employer] Other HbA1c (Bld) [Mass fraction]o n 03-24-2021 A1C HEMOGLOBIN [facility] Other Vital Signs Date Time Vital Sign Value Performing Clinician Facility 11-01-2023 16:16-0400 Body height 177.8 cm [facility] 11-01-2023 16:16-0400 Body mass index (BMI) [Ratio] 39.2 kg/m2 [facility] 11-01-2023 16:16-0400 Body weight 123.83 kg [facility] 11-01-2023 16:16-0400 Diastolic blood pressure 57 mm[Hg] [facility] 11-01-2023 16:16-0400 Respiratory rate 16 /min [facility] 11-01-2023 16:16-0400 SaO2% (BldA) [Mass fraction] 93 % [facility] 11-01-2023 16:16-0400 Systolic blood pressure 103 mm[Hg] [facility] 10-18-2023 15:43-0400 Body height 177.8 cm [facility] 10-18-2023 15:43-0400 Body mass index (BMI) [Ratio] 39.2 kg/m2 [facility] 10-18-2023 15:43-0400 Body weight 123.94 kg [facility] 10-18-2023 15:43-0400 Diastolic blood pressure 74 mm[Hg] [facility] 10-18-2023 15:43-0400 Heart rate 77 /min [facility] 10-18-2023 15:43-0400 Respiratory rate 12 /min [facility] 10-18-2023 15:43-0400 Systolic blood pressure 119 mm[Hg] [facility] 09-13-2023 13:15-0400 Body mass index (BMI) [Ratio] 39.86 kg/m2 Jian Alberto MD Work Phone: [facility] 09-13-2023 13:15-0400 Body weight 126 kg Jian Alberto MD Work Phone: [facility] 09-13-2023 13:15-0400 Diastolic blood pressure 71 mm[Hg] Jian Alberto MD Work Phone: [facility] 09-13-2023 13:15-0400 Heart rate 72 /min Jian Alberto MD Work Phone: [facility] 09-13-2023 13:15-0400 Systolic blood pressure 128 mm[Hg] Jian Alberto MD Work Phone: [facility] 08-04-2023 13:51-0400 Body height 177.8 cm Giovanni Mulligan MD Work Phone: [facility] 08-04-2023 13:51-0400 Body weight 124.29 kg Giovanni Mulligan MD Work Phone: [facility] 07-27-2023 12:44-0400 Respiratory rate 18 /min P[facility] 6 Work Phone: [facility] 07-11-2023 15:26-0400 Body height 177.8 cm [facility] 07-11-2023 15:26-0400 Body mass index (BMI) [Ratio] 39.4 kg/m2 [facility] 07-11-2023 15:26-0400 Body weight 124.73 kg [facility] 07-11-2023 15:26-0400 Diastolic blood pressure 73 mm[Hg] [facility] 07-11-2023 15:26-0400 Heart rate 73 /min [facility] 07-11-2023 15:26-0400 Systolic blood pressure 117 mm[Hg] [facility] 06-21-2023 16:14-0500 Body height 177.8 cm [facility] 06-21-2023 16:14-0500 Body mass index (BMI) [Ratio] 39.4 kg/m2 [facility] 06-21-2023 16:14-0500 Body weight 124.73 kg [facility] 06-21-2023 16:14-0500 Diastolic blood pressure 65 mm[Hg] [facility] 06-21-2023 16:14-0500 Heart rate 70 /min [facility] 06-21-2023 16:14-0500 Respiratory rate 18 /min [facility] 06-21-2023 16:14-0500 SaO2% (BldA) [Mass fraction] 95 % [facility] 06-21-2023 16:14-0500 Systolic blood pressure 109 mm[Hg] [facility] 06-19-2023 13:05-0500 Body weight 124.29 kg Ligia Colmenares MD Work Phone: [facility] 06-19-2023 13:05-0500 Diastolic blood pressure 68 mm[Hg] Ligia Colmenares MD Work Phone: [facility] 06-19-2023 13:05-0500 Heart rate 68 /min Ligia Colmenares MD Work Phone: [facility] 06-19-2023 13:05-0500 Systolic blood pressure 112 mm[Hg] Ligia Colmenares MD Work Phone: [facility] 04-19-2023 15:30-0500 Body height 177.8 cm Fahad Ball Other [facility] 04-19-2023 15:30-0500 Body mass index (BMI) [Ratio] 39.91 kg/m2 Fahad Ball Other [facility] [employer] Other 04-19-2023 15:30-0500 Body weight 126.19 kg Fahad Ball Other [facility] [employer] Other 04-19-2023 15:30-0500 Body weight 126.18 kg DO Fahad Ball Work Phone: [facility] 04-19-2023 15:30-0500 Diastolic blood pressure 77 mm[Hg] Fahad Ball Other [facility] 04-19-2023 15:30-0500 Respiratory rate 16 /min Fahad Ball Other [facility] [employer] Other 04-19-2023 15:30-0500 Systolic blood pressure 125 mm[Hg] Fahad Ball Other [facility] 03-22-2023 11:46-0500 Blood Pressure Location Antonia BUSH [facility] 03-22-2023 11:46-0500 Diastolic blood pressure 71 mm[Hg] Antonia BUSH [facility] 03-22-2023 11:46-0500 Heart rate 69 /min Antonia BUSH [facility] 03-22-2023 11:46-0500 Systolic blood pressure 111 mm[Hg] Antonia BUSH [facility] 03-08-2023 16:15-0500 Body height 177.8 cm Tondra Mapus Other [facility] 03-08-2023 16:15-0500 Body mass index (BMI) [Ratio] 39.65 kg/m2 Tondra Mapus Other [facility] [employer] Other 03-08-2023 16:15-0500 Body weight 125.38 kg Tondra Mapus Other [facility] [employer] Other 03-08-2023 16:15-0500 Body weight 125.37 kg DO Fahad Ball Work Phone: [facility] 03-08-2023 16:15-0500 Diastolic blood pressure 72 mm[Hg] Tondra Mapus Other [facility] 03-08-2023 16:15-0500 Respiratory rate 18 /min Tondra Mapus Other [facility] [employer] Other 03-08-2023 16:15-0500 SaO2% (BldA) [Mass fraction] 96 % Tondra Mapus Other [facility] [employer] Other 03-08-2023 16:15-0500 Systolic blood pressure 127 mm[Hg] Tondra Mapus Other [facility] 01-20-2023 14:45-0400 Body height 177.8 cm Fahad Ball Other [employer] Other 01-20-2023 14:45-0400 Body mass index (BMI) [Ratio] 39.17 kg/m2 Fahad Ball Other [employer] Other 01-20-2023 14:45-0400 Body weight 123.83 kg Fahad Ball Other [employer] Other 01-20-2023 14:45-0400 Diastolic blood pressure 74 mm[Hg] Fahad Ball Other [employer] Other 01-20-2023 14:45-0400 Respiratory rate 18 /min Fahad Ball Other [employer] Other 01-20-2023 14:45-0400 Systolic blood pressure 118 mm[Hg] Fahad Ball Other [employer] Other 11-24-2022 15:30-0400 Body height 177.8 cm Tondra Mapus Other [employer] Other 11-24-2022 15:30-0400 Body mass index (BMI) [Ratio] 39.22 kg/m2 Tondra Mapus Other [employer] Other 11-24-2022 15:30-0400 Body weight 124.01 kg Tondra Mapus Other [employer] Other 11-24-2022 15:30-0400 Diastolic blood pressure 65 mm[Hg] Tondra Mapus Other [employer] Other 11-24-2022 15:30-0400 Respiratory rate 18 /min Tondra Mapus Other [employer] Other 11-24-2022 15:30-0400 SaO2% (BldA) [Mass fraction] 95 % Tondra Mapus Other [employer] Other 11-24-2022 15:30-0400 Systolic blood pressure 109 mm[Hg] Tondra Mapus Other [employer] Other 10-17-2022 15:30-0400 Body height 177.8 cm Fahad Ball Other [employer] Other 10-17-2022 15:30-0400 Body mass index (BMI) [Ratio] 39.6 kg/m2 Fahad Ball Other [employer] Other 10-17-2022 15:30-0400 Body weight 125.19 kg Fahad Ball Other [employer] Other 10-17-2022 15:30-0400 Diastolic blood pressure 66 mm[Hg] Fahad Ball Other [employer] Other 10-17-2022 15:30-0400 Respiratory rate 16 /min Fahad Ball Other [employer] Other 10-17-2022 15:30-0400 Systolic blood pressure 108 mm[Hg] Fahad Ball Other [employer] Other 08-22-2022 16:30-0400 Body height 177.8 cm Tondra Mapus Other [employer] Other 08-22-2022 16:30-0400 Body mass index (BMI) [Ratio] 39.93 kg/m2 Tondra Mapus Other [employer] Other 08-22-2022 16:30-0400 Body weight 126.24 kg Tondra Mapus Other [employer] Other 08-22-2022 16:30-0400 Diastolic blood pressure 70 mm[Hg] Tondra Mapus Other [employer] Other 08-22-2022 16:30-0400 Respiratory rate 18 /min Tondra Mapus Other [employer] Other 08-22-2022 16:30-0400 SaO2% (BldA) [Mass fraction] 94 % Tondra Mapus Other [employer] Other 08-22-2022 16:30-0400 Systolic blood pressure 111 mm[Hg] Tondra Mapus Other [employer] Other 07-18-2022 16:30-0400 Body height 177.8 cm Fahad Ball Other [employer] Other 07-18-2022 16:30-0400 Body mass index (BMI) [Ratio] 40.2 kg/m2 Fahad Ball Other [employer] Other 07-18-2022 16:30-0400 Body weight 127.1 kg Fahad Ball Other [employer] Other 07-18-2022 16:30-0400 Diastolic blood pressure 71 mm[Hg] Fahad Ball Other [employer] Other 07-18-2022 16:30-0400 Respiratory rate 16 /min Fahad Ball Other [employer] Other 07-18-2022 16:30-0400 Systolic blood pressure 117 mm[Hg] Fahad Ball Other [employer] Other 05-19-2022 16:15-0500 Body height 177.8 cm Tondra Mapus Other [employer] Other 05-19-2022 16:15-0500 Body mass index (BMI) [Ratio] 40.79 kg/m2 Tondra Mapus Other [employer] Other 05-19-2022 16:15-0500 Body weight 128.96 kg Tondra Mapus Other [employer] Other 05-19-2022 16:15-0500 Diastolic blood pressure 72 mm[Hg] Tondra Mapus Other [employer] Other 05-19-2022 16:15-0500 Respiratory rate 18 /min Tondra Mapus Other [employer] Other 05-19-2022 16:15-0500 SaO2% (BldA) [Mass fraction] 93 % Tondra Mapus Other [employer] Other 05-19-2022 16:15-0500 Systolic blood pressure 131 mm[Hg] Tondra Mapus Other [employer] Other 05-04-2022 16:30-0500 Body height 177.8 cm Fahad Ball Other [employer] Other 05-04-2022 16:30-0500 Body mass index (BMI) [Ratio] 41.23 kg/m2 Fahad Ball Other [employer] Other 05-04-2022 16:30-0500 Body weight 130.36 kg Fahad Ball Other [employer] Other 05-04-2022 16:30-0500 Diastolic blood pressure 82 mm[Hg] Fahad Ball Other [employer] Other 05-04-2022 16:30-0500 Respiratory rate 20 /min Fahad Ball Other [employer] Other 05-04-2022 16:30-0500 Systolic blood pressure 118 mm[Hg] Fahad Ball Other [employer] Other 10-21-2021 14:45-0400 Body height 177.8 cm Tondra Mapus Other [employer] Other 10-21-2021 14:45-0400 Body mass index (BMI) [Ratio] 40.31 kg/m2 Tondra Mapus Other [employer] Other 10-21-2021 14:45-0400 Body weight 127.46 kg Tondra Mapus Other [employer] Other 10-21-2021 14:45-0400 Diastolic blood pressure 70 mm[Hg] Tondra Mapus Other [employer] Other 10-21-2021 14:45-0400 Respiratory rate 20 /min Tondra Mapus Other [employer] Other 10-21-2021 14:45-0400 SaO2% (BldA) [Mass fraction] 96 % Tondra Mapus Other [employer] Other 10-21-2021 14:45-0400 Systolic blood pressure 110 mm[Hg] Tondra Mapus Other [employer] Other 08-11-2021 15:15-0400 Body height 177.8 cm Celestina Greene Other [employer] Other 08-11-2021 15:15-0400 Body mass index (BMI) [Ratio] 38.74 kg/m2 Celestina Talbotmond Other [employer] Other 08-11-2021 15:15-0400 Body temperature 98.2 [degF] Celestina Talbotmond Other [employer] Other 08-11-2021 15:15-0400 Body weight 122.47 kg Celestina Talbotmond Other [employer] Other 08-11-2021 15:15-0400 Diastolic blood pressure 72 mm[Hg] Celestina Ramona Other [employer] Other 08-11-2021 15:15-0400 Respiratory rate 18 /min Celestina Ramona Other [employer] Other 08-11-2021 15:15-0400 SaO2% (BldA) [Mass fraction] 99 % Celestina Ramona Other [employer] Other 08-11-2021 15:15-0400 Systolic blood pressure 123 mm[Hg] Celestina Ramona Other [employer] Other 06-29-2021 15:30-0400 Body height 177.8 cm Tondra Mapus Other [employer] Other 06-29-2021 15:30-0400 Body mass index (BMI) [Ratio] 40.89 kg/m2 Tondra Mapus Other [employer] Other 06-29-2021 15:30-0400 Body weight 129.28 kg Tondra Mapus Other [employer] Other 06-29-2021 15:30-0400 Diastolic blood pressure 75 mm[Hg] Tondra Mapus Other [employer] Other 06-29-2021 15:30-0400 Respiratory rate 20 /min Tondra Mapus Other [employer] Other 06-29-2021 15:30-0400 SaO2% (BldA) [Mass fraction] 95 % Tondra Mapus Other [employer] Other 06-29-2021 15:30-0400 Systolic blood pressure 126 mm[Hg] Tondra Mapus Other [employer] Other 03-24-2021 16:15-0500 Body height 177.8 cm Tondra Mapus Other [employer] Other 03-24-2021 16:15-0500 Body mass index (BMI) [Ratio] 40.89 kg/m2 Tondra Mapus Other [employer] Other 03-24-2021 16:15-0500 Body weight 129.28 kg Tondra Mapus Other [employer] Other 03-24-2021 16:15-0500 Diastolic blood pressure 67 mm[Hg] Tondra Mapus Other [employer] Other 03-24-2021 16:15-0500 Respiratory rate 20 /min Tondra Mapus Other [employer] Other 03-24-2021 16:15-0500 SaO2% (BldA) [Mass fraction] 97 % Tondra Mapus Other [employer] Other 03-24-2021 16:15-0500 Systolic blood pressure 115 mm[Hg] Tondra Mapus Other [employer] Other 01-06-2021 15:00-0400 Body height 177.8 cm Tondra Mapus Other [employer] Other 01-06-2021 15:00-0400 Body mass index (BMI) [Ratio] 39.81 kg/m2 Tondra Mapus Other [employer] Other 01-06-2021 15:00-0400 Body weight 125.87 kg Tondra Mapus Other [employer] Other Encounters Encounter Date Encounter Type Care Provider Facility Start: 01-15-2024 End: 01-15-2024 Telephone encounter Jada Wilkins APRN.CNP Work Phone: Urology Start: 11-01-2023 End: 11-01-2023 ambulatory [facility] Work Phone: Start: 11-01-2023 End: 11-01-2023 Patient encounter procedure [facility] Work Phone: Start: 10-18-2023 End: 10-18-2023 ambulatory [facility] Work Phone: Start: 10-18-2023 End: 10-18-2023 Encounter for general adult medical examination without abnormal findings [facility] Start: 10-18-2023 End: 10-18-2023 Patient encounter procedure [facility] Work Phone: Start: 10-04-2023 Telephone encounter Jada rivero APRN.SENIOR CLERK Work Phone: Urology Start: 09-13-2023 End: 09-13-2023 ambulatory Jian Alberto MD Work Phone: Urology Start: 09-13-2023 End: 09-13-2023 Patient encounter procedure Jian Alberto MD Work Phone: Urology Comment on above: Acquired buried peni s (Primary Dx); Scarring of penis Start: 08-04-2023 End: 08-04-2023 Patient encounter procedure Giovanni uMlligan MD Work Phone: Urology Comment on above: Acquired buried peni s (Primary Dx) Start: 08-04-2023 End: 08-04-2023 ambulatory GIOVANNI MULLIGAN Facility:[facility] Start: 07-28-2023 End: 07-29-2023 ambulatory JIAN ALBERTO Facility:[facility] Start: 07-27-2023 Non-patient / Non-visit [facility] Work Phone: Start: 07-27-2023 End: 07-27-2023 Admission to establishment Pacc Main 6 Work Phone: [facility] Start: 07-27-2023 End: 07-27-2023 Preprocedural examination done Pacc Main 6 Work Phone: [facility] Work Phone: Start: 07-27-2023 End: 07-27-2023 ambulatory Pacc Main 6 Work Phone: Pre Anesthesia Comment on above: Pre-operative examin ation (Primary Dx); Primary hypertension; Hyperlipidemia, unspecified hyperlipidemia type; Coronary artery disease involving coronary bypass graft of [place] heart without angina pectoris; Chronic systolic CHF (congestive heart failure) (HCC); Paroxysmal atrial fibrillation (HCC); Gastroesophageal reflux disease, unspecified whether esophagitis present; Type 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 with other specified complication, with long-term current use of insulin (HCC); Class 2 obesity due to excess calories without serious comorbidity with body mass index (BMI) of 39.0 to 39.9 in adult Start: 07-27-2023 Encounter for other preprocedural examination FAHAD ACEVES [facility] Start: 07-18-2023 Telephone encounter Noy garcia RN Work Phone: Urology Comment on above: 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[employer] Start: 07-11-2023 End: 07-11-2023 ambulatory [facility] Work Phone: Start: 07-11-2023 End: 07-11-2023 Patient encounter procedure [facility] Work Phone: Start: 06-21-2023 End: 06-21-2023 Patient encounter procedure [facility] Work Phone: Start: 06-19-2023 End: 06-19-2023 Patient encounter procedure Ligia Colmenares MD Work Phone: Cardiology Comment on above: Coronary artery dise ase involving [place] coronary artery of [place] heart, unspecified whether angina present (Primary Dx); History of non-ST elevation myocardial infarction (NSTEMI); Hx of CABG; Primary hypertension; Other hyperlipidemia Start: 06-19-2023 End: 06-19-2023 ambulatory LIGIA COLMENARES M.D. 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- [employer] Start: 05-03-2023 End: 05-03-2023 ambulatory Jian Alberto MD Work Phone: Urology Start: 05-02-2023 End: 05-02-2023 ambulatory Yarelis Santacruz Other [employer] Other Start: 05-02-2023 Office outpatient vi sit 10 minutes Yarelismagda Santacruz [facility] Start: 05-02-2023 End: 05-02-2023 Patient encounter procedure DO Fahad Aceves Work Phone: [facility]- Start: 04-19-2023 End: 04-19-2023 ambulatory Fahad Aceves Other [employer] Other Start: 04-19-2023 Office outpatient vi sit 25 minutes Fahad Ball [facility] Start: 04-19-2023 End: 04-19-2023 Patient encounter procedure DO Fahad Aceves Work Phone: [facility] Work Phone: Start: 03-30-2023 End: 03-30-2023 ambulatory Yarelis Santacruz Other [employer] Other Start: 03-30-2023 Telephone encounter Yarelis Begum [facility] Start: 03-28-2023 End: 03-28-2023 ambulatory Yarelis Santacruz Other [employer] Other Start: 03-28-2023 Office outpatient vi sit 15 minutes Yarelis Santacruz [facility] Start: 03-22-2023 End: 03-22-2023 ambulatory TONDRA K MAPUS Facility:[facility] Start: 03-22-2023 End: 03-22-2023 Patient encounter procedure Antonia BUSH [facility] Start: 03-08-2023 End: 03-08-2023 Discharged Recurring DO Fahad Aceves Work Phone: [facility] Work Phone: Start: 03-08-2023 (DM) Diabetes Tondra Mapus [facility] Start: 03-08-2023 End: 03-09-2023 ambulatory DO Fahad Aceves Work Phone: [employer] Other Start: 03-08-2023 End: 03-08-2023 Patient encounter procedure DO Fahad Aceves Work Phone: [facility] Work Phone: Start: 02-22-2023 End: 02-22-2023 ambulatory Yarelis Santacruz Other [employer] Other Start: 02-22-2023 Office outpatient vi sit 15 minutes Yarelis Santacruz [facility] Start: 01-20-2023 End: 01-20-2023 ambulatory Fahad Aceves Other [employer] Other Start: 01-20-2023 Office outpatient vi sit 15 minutes Fahad Aceves [facility] Start: 12-09-2022 End: 12-09-2022 ambulatory Tondra Mapus Other [employer] Other Start: 12-09-2022 Telephone encounter Tondra Mapus [facility] Start: 11-25-2022 ambulatory TONDRA MAPUS Facility:[facility] Start: 11-24-2022 (DM) Diabetes Tondra Mapus [facility] Start: 11-24-2022 End: 11-24-2022 ambulatory Tondra Mapus Other [employer] Other Start: 11-24-2022 Telephone encounter Tondra Mapus [facility] Start: 10-17-2022 End: 10-17-2022 ambulatory Fahad Aceves Other [employer] Other Start: 10-17-2022 Encounter for genera l adult medical examination without abnormal findings Fahad Aceves [facility] Start: 10-17-2022 Periodic preventive med est patient 40-64yrs Fahad Aceves [facility] Start: 09-05-[address] FAHAD ACEVES Facili ty:[facility] Start: 08-24-2022 End: 08-25-2022 ambulatory DAMIAN MATHUR Facility:[facility] Start: 08-22-2022 (DM) Diabetes Tondra Mapus [facility] Start: 08-22-2022 End: 08-22-2022 ambulatory Tondra Mapus Other [facility] Other Start: 07-18-2022 End: 07-18-2022 ambulatory Fahad Aceves Other [employer] Other Start: 07-18-2022 Office outpatient vi sit 15 minutes Fahad Aceves [facility] Start: 05-19-2022 (DM) Diabetes Tondra Mapus [facility] Start: 05-19-2022 End: 05-19-2022 ambulatory Tondra Mapus Other [employer] Other Start: 05-04-2022 End: 05-04-2022 ambulatory Fahad Aceves Other [employer] Other Start: 05-04-2022 Office outpatient vi sit 25 minutes Fahad Aceves [facility] Start: 04-19-2022 End: 05-04-[address] FAHAD ACEVES Facility:[facility] Start: 04-05-2022 End: 04-06-[address] FAHAD ACEVES Facility:[facility] Start: 03-30-2022 End: 03-31-[address] FAHAD ACEVES Facility:[facility] Start: 02-24-2022 End: 02-25-[address] FAHAD ACEVES Facility:[facility] Start: 02-17-2022 End: 04-19-[address] FAHAD ACEVES Facility:[facility] Start: 02-16-2022 End: 02-17-[address] FAHAD ACEVES Facility:[facility] Start: 02-14-2022 End: 02-14-2022 ambulatory Tondra Mapus Other [facility] Other Start: 02-14-2022 Telephone encounter Tondra Mapus [facility] Start: 02-11-2022 End: 02-11-2022 ambulatory DO Fahad Aceves Work Phone: [facility] Work Phone: Start: 02-11-2022 End: 02-11-2022 Patient encounter procedure DO Fahad Aceves Work Phone: [facility] [place] Start: 02-10-2022 End: 02-11-[address] SIMBA KASPER Facility:[facility] Start: 02-01-2022 Registered Recurring DO [employer] Work Phone: [facility] Start: 02-01-2022 End: 02-01-2022 ambulatory Tondra Mapus Other [facility] Other Start: 02-01-2022 Telephone encounter Tondra Mapus [facility] Start: 01-07-[address] FAHAD ACEVES Facili ty:[facility] Start: 12-31-2021 End: 12-31-2021 ambulatory DARNELL OVALLE Facility:[facility] Start: 12-16-2021 ambulatory DAMIAN MATHUR Faci lity:[facility] Start: 11-15-2021 End: 01-01-[address] FAHAD ACEVES Facility:[facility] Start: 10-29-2021 End: 10-30-[address] FAHAD ACEVES Facility:[facility] Start: 10-21-2021 (DM) Diabetes Tondra Mapus [facility] Start: 10-21-2021 End: 10-21-2021 ambulatory Tondra Mapus Other [employer] Other Start: 09-09-2021 End: 09-10-2021 ambulatory DAMIAN MATHUR Facility:[facility] Start: 08-11-2021 End: 08-11-2021 ambulatory Celestina Greene Other [employer] Other Start: 08-11-2021 Office outpatient vi sit 25 minutes Celestina Greene [facility] Start: 06-29-2021 (DM) Diabetes [facility] Start: 06-29-2021 End: 06-29-2021 ambulatory Tondra Mapus Other [facility] Other Start: 05-12-2021 End: 05-12-2021 ambulatory Tondra Mapus Other [employer] Other Start: 05-12-2021 Telephone encounter Tondra Mapus [facility] Start: 05-04-2021 End: 05-04-2021 ambulatory Tondra Mapus Other [employer] Other Start: 05-04-2021 Telephone encounter Tondra Mapus [facility] Start: 03-24-2021 (DM) Diabetes Tondra Palomous [facility] Start: 03-24-2021 End: 03-24-2021 ambulatory Tondra Mapus Other [facility] Other Start: 01-06-2021 Nursing evaluation o f [facility] and [facility] Date Procedure Procedure Detail Performing Clinician Start: 06-19-2023 Ecg routine ecg w/le ast 12 lds i&r only Ligia Colmenares MD Work Phone: Start: 05-03-2023 Urnls dip stick/tabl et rgnt auto w/o microscopy Bulk Order Provider Start: 12-16-2021 Coronary artery bypa ss grafts x 5 Antonia ROXANN Coronary artery bypa ss graft Fahad Aceves Other History of coronary artery bypass grafting Hx of CABG Ligia Colmenares MD Work Phone: Plan of Treatment Date Care Activity Detail Author Start: 09-12-2024 BP Controlled (<130/80) BP Controlle d (<130/80) [facility] Start: 07-26-2024 BP Controlled (<130/80) BP Controlle d (<130/80) [facility] Start: 02-14-2024 End: 02-14-2024 Patient encounter procedure 02/14/2024 10:15 AM EDT Office Visit Urology [address] [address] Jian Alberto MD [address] [place] [address] 5 month f/u ED per cc chart Urology Comment on above: 5 month f/u ED per c c chart Start: 01-26-2024 Hemoglobin A1c measurement HbA1C [facility] Start: 12-17-2023 Covid-19 Vaccine ( season) Covid-19 Vaccine ( season) [facility] Start: 12-17-2023 Influenza vaccination C [facility] Start: 04-17-2023 Behavioral Health Screening Behavioral Health Screening [facility] Start: 04-17-2023 Depression Assessment Depression Ass essment [facility] Start: 01-01-2023 Hepatitis B surface antibody level LDL Cholesterol [facility] Start: 12-16-2022 Covid-19 Vaccine ( season) Covid-19 Vaccine ( season) [facility] Start: 12-16-2022 Influenza vaccination Influenza Vacc ine (#1) [facility] Start: 07-04-2022 Hemoglobin A1c measurement HbA1C [facility] Start: 2022 RSV Vaccine (1 - 1-d ose 60+ series) RSV Vaccine (1 - 1-dose 60+ series) [facility] Start: 2022 RSV Vaccine (1 - Ris k 60-74 years 1-dose series) RSV Vaccine (1 - Risk 60-74 years 1-dose series) [facility] Start: 2017 Prostate specific antigen measurement Prostate Cancer Screening Discussion [facility] Start: 01-11-2012 Shingrix Vaccine (1 of 2) Shingrix Vaccine (1 of 2) [facility] Start: 2007 Screening for malign ant neoplasm of colon [facility] Start: 1981 Urine microalbumin profile DTaP,Tdap,Td Vaccine (1 - Tdap) [facility] Start: 01-11-1980 Annual PCP Team Window Cleaner tennille Disease Visit Annual PCP Team Chronic Disease Visit [facility] Start: 01-11-1980 Anxiety Screening Anxiety Screening [facility] Start: 01-11-1980 Depression Screening Depression Scre ening [facility] Start: 01-11-1980 Hepatitis C screening Hepatitis C Sc reening [facility] Start: 01-11-1980 HIV screening HIV Screening [facility] Start: 01-11-1972 Diabetic foot examination Diabetic Foot Exam [facility] Start: 01-11-1972 Glaucoma screening Dilated Retinal E xam [facility] Start: 01-11-1972 Hepatitis B screening Urine Al bumin:Creatinine Ratio [facility] Start: 01-11-1968 Pneumococcal vaccination Pneumococcal Vaccine (1 of 2 - PCV) [facility] Start: 1960 Covid-19 Vaccine (#1) Covid-19 Vacci ne (#1) [facility] Patient Education Diabetes and diet [facility] Work Phone: URINALYSIS, REFLEX MICROSCOPIC URINALYSIS, REFLEX MICROSCOPIC Lab Routine Screening for genitourinary condition Ordered: 09/13/2023 [facility] Work Phone: Comment on above: Ordered: 09/13/[address] [facility] Immunizations Immunization Date Immunization Notes Care Provider Sam brenner 02-24-2022 COVID-19 Pfizer (bivalent) Fahad Aceves Other [facility] 03-23-2021 COVID-19 Vaccine Pfi zer - Documentation Purposes Only Fahad Aceves Other [facility] 08-03-2020 COVID-19 Vaccine Pfi zer - Documentation Purposes Only Fahad Aceves Other [facility] 07-13-2020 COVID-19 Vaccine Pfi zer - Documentation Purposes Only Fahad Aceves Other [facility] Payers Date Payer Category Payer Unknown [id number] 2015 Private Health Insurance [facility] UMR CHOICE PLUS [id number] 2015-Present [phone] [address] [address] [place] [address] O [id number] 1960 Unknown [id number] [id number] .2.593 1960 Unknown [id number] 2.16.840.1.579455.3.579 .2.593 1962 Unknown [id number] 2.16.840.1.842904.3.579 .2.593 1962 Unknown [id number] 2.16.840.1.170874.3.579 .2.593 1962 Unknown [id number] 2.16.840.1.232321.3.579 .2.593 1962 Unknown [id number] 2.16.840.1.683172.3.579 .2.593 1962 Unknown [id number] 2.16.840.1.925696.3.579 .2.593 1962 Unknown [id number] 2.16.840.1.692328.3.579 .2.593 1962 Unknown [id number] 2.16.840.1.156091.3.579 .2.593 1962 Unknown [id number] 2.16.840.1.698031.3.579 .2.593 1962 Unknown [id number] 2.16.840.1.749212.3.579 .2.593 1962 Unknown [id number] 2.16.840.1.840313.3.579 .2.593 1962 Unknown [id number] 2.16.840.1.769497.3.579 .2.593 1962 Unknown [id number] 2.16.840.1.094639.3.579 .2.593 1962 Unknown [id number] 2.16.840.1.169021.3.579 .2.593 1957 Self-pay [id number] 1957 Unknown [id number] [id number] Unknown [id number] 2.16.840.1.932221.3.579 .2.593 Unknown [id number] 2.16.840.1.436337.3.579 .2.531 Social History Date Type Detail Facility Unknown if ever smoked [facility] Other Start: 05-03-2023 End: 08-04-2023 Sex Assigned At [facility] Start: 1960 Sex Assigned At Male F [facility] Start: 03-22-2023 End: 05-03-2023 Tobacco smoking status Never smoked tobacco (finding) [facility] Start: 05-03-2023 Tobacco use and exposure Smokeless tobacco non-user [facility] Start: 05-03-2023 End: 08-04-2023 History of Social function [facility] Start: 1960 [facility] Start: 07-27-2023 End: 09-13-2023 Alcohol intake Current drinker of alcohol (finding) [facility] Medical Equipment Procedure Code Equipment Code Equipment Original Text Equi pment Identifier Dates Functional Status Date Assessment Result Facility 03-22-2023 Functional Status N/A [facility] Clinical Notes 01-06-2021 to 01-15-2024 Telephone Encounter - Jada Wilkins APRN.[facility] - 01/15/2024 2:53 PM EDTTelephone Encounter - Jada Wilkins APRN.CNP - 01/15/2024 2:53 PM Jian Renee MD - 09/13/2023 1:27 PM EDT Note Date & Type Note Facility 01-15-2024 Telephone encounter Note See previous telephone encounter from 10/04/2023. Keflex has been on auto refill, and [facility] has already been asked to cancel this request. Jada Wilkins APRN.CNP [facility] Work Phone: 01-15-2024 Telephone encounter Note ----- Message from Kourtney Sena sent at 01/15/2024 9:13 AM EDT ----- Regarding: Refill medication [facility] [place] [facility] refill request for Cephalexin - it is not on his current med list. Please advise and thank you, Kourtney [facility] 01-15-2024 Miscellaneous Notes See previous telephone encounter from 10/04/2023. Keflex has been on auto refill, and [facility] has already been asked to cancel this request. Jada Wilkins APRN.CNP ----- Message from Kourtney Sena sent at 01/15/2024 9:13 AM EDT ----- Regarding: Ref[facility] medication [facility] [place] [facility] over a refill request for Cephalexin - it is not on his current med list. Please advise and thank you, Kourtney documented in this encounter [facility] 01-15-2024 Note PharmD Cardiology Co nsult - Lipids Provider: Dr. Kasper Department: [facility] Cardiology Caden Wills is a 64 y.o. male with PMH of CHF, CAD s/p CABG/stents, HLD, HTN, atrial fibrillation Current Lipid Lowering Therapy Atorvastatin 80mg daily Ezetimibe 10mg daily Other Relevant Cardiology Medications ASA 81mg daily Entresto 24-26mg BID Farxiga 10mg daily Metoprolol succinate 100mg daily Spironolactone 25mg daily Pertinent labs: Lipid panel: FLP: Lab Results Component Value Date CHOL 177 01/01/2022 HDL 33 01/01/2022 LDLCALC 92 01/01/2022 TRIG 262 (H) 01/01/2022 LDL goal < 55 Patient indicated for PCSK9. Rx will be sent to [facility] to determine coverage and provide education to patient. Recommendation: Complete updated lipid panel, ApoB, and Lp(a) prior to initiation of PCSK9 to assess ASCVD risk. Will call patient to get labs drawn. 01/15/2024: Left voicemail, requested call back. Follow-up: Labs to be completed; PCSK9 coverage Caroline Silva PharmD Cardiology Outpatient Clinical Pharmacist 01/15/2024 [facility] 01-15-2024 Note Patient returned king l; will complete labs by end of the week. Requested call back on Sunday 01/21 for follow-up. Orders placed. Caroline Silva PharmD Cardiology Outpatient Clinical Pharmacist 01/16/2024 [facility] 10-04-2023 Telephone encounter Note Keflex was prescribed for 1 month after buried penis surgery on 07/28/2023. Called Caden Wills. He reports trying to cancel refill request for Keflex with [facility] but was unsuccessful. Denies concerns about infection. Reminded him that he should follow up with Dr. Alberto in the fall. Left voicemail at [facility] in [place], advising that Caden A Elio does NOT need refill on Keflex and asking them to take it off auto refill. Jada Wilkins APRN.SENIOR CLERK [facility] Work Phone: 10-04-2023 Miscellaneous Notes Keflex was prescribed for 1 month after buried penis surgery on 07/28/2023. Called Caden Wills. He reports trying to cancel ref[facility] but was unsuccessful. Denies concerns about infection. Reminded him that he should follow up with Dr. Alberto in the fall. Left voicemail at [facility] in [place], advising that Caden Wills does NOT need refill on Keflex and asking them to take it off auto refill. Jada Wilkins APRN.CHUY ----- Message from Kourtney Hodge Patient Service Spec sent at 10/04/2023 7:36 AM EDT ----- Regarding: Medication refill [facility]ill request for Cephalexin 500 mg- it is not listed in his med list . Please advise and thank you, Kourtney documented in this encounter [facility] 10-04-2023 Telephone encounter Note ----- Message from Kourtney Hodge Patient Service Spec sent at 10/04/2023 7:36 AM EDT ----- Regarding: Medication refill [facility] refill request for Cephalexin 500 mg- it is not listed in his med list . Please advise and thank you, Kourtney [facility] 09-13-2023 Note HNO ID: [id number] Author: JIAN ALBERTO MD Service: ? 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 08/04/2023, office visit with Dr. Mulligan for wound check and drain removal. Today, here for scheduled visit with Dr. Alberto. Reporting no issues with urination. Still using the vaseline gauze to the surgical site. Feels like he is healing well. Initially exposed glans of penis to urinate, but ultimately left glans buried due to discomfort. Some moisture associated skin damage to scrotum. Transverse incision clean, dry and intact with edges well approximated. Sutures still visible. PAST MEDICAL HISTORY Diagnosis Date Atrial fibrillation (HCC) Chronic systolic heart failure (HCC) Coronary artery disease Diabetes (HCC) Hyperlipidemia Hypertension PAST SURGICAL HISTORY Procedure Laterality Date CABG (5) VENOUS GRAFTS AND ARTERIAL GRAFT(S) 12/2021 PAST SURGICAL HISTORY OF N/A 07/28/2023 buried penis repair with mons escutcheonectomy and scrotoplasty Social History Tobacco Use Smoking status: Never Smokeless tobacco: Never Substance Use Topics Alcohol use: Yes Alcohol/week: 2.0 standard drinks of alcohol Types: 2 Cans of Beer (12oz) per week Drug use: Not Currently Current Outpatient Medications on File Prior to Visit Medication Sig amiodarone (PACERONE) 200 mg tablet Take 1 tablet by mouth once daily. FARXIGA 10 mg tablet Take 10 mg by mouth every morning. ezetimibe (ZETIA) 10 mg tablet Take 10 mg by mouth every morning. ENTRESTO 24-26 mg tablet TAKE 1 TABLET BY MOUTH IN THE MORNING AND IN THE EVENING pantoprazole DR (PROTONIX) 40 mg tablet TAKE 1 TABLET BY MOUTH ONCE A DAY ON EMPTY STOMACH FOLLOWED IN 30 MINUTES WITH BREAKFAST 90 spironolactone (ALDACTONE) 25 mg tablet Take 25 mg by mouth every morning. insulin glargine U-300 conc (TOUJEO MAX U-300 SOLOSTAR) 300 unit/mL (3 mL) inpn Inject 60 Units subcutaneously once daily. metFORMIN ER (GLUCOPHAGE XR) 500 mg 24 hr tablet Take 1 tablet by mouth three times a day. acetaminophen (TYLENOL) 325 mg tablet Take 650 mg by mouth every 6 hours as needed. insulin aspart U-100 (NOVOLOG) 100 unit/mL Inject 25 Units subcutaneously three times a day before meals. aspirin, enteric coated (ASPIRIN, ENTERIC COATED) 81 mg EC tablet Take 81 mg by mouth. metoprolol succinate ER (TOPROL XL) 100 mg TAKE 1 TABLET BY MOUTH IN THE MORNING AND 1 TABLET AT BEDTIME potassium chloride ER (KLOR-CON) 20 mEq tablet Take 20 mEq by mouth. omega 1-yfo-glj-fish oil (FISH OIL) 100-160-1,000 mg cap Take 1,000 mg by mouth. No current facility-administered medications on file prior to visit. DATA/OR LABS TO BE REVIEWED: (Simple=1 data point; Complex= 2 or more) No results found for: PSA Creatinine (mg/dL) Date Value 07/29/2023 0.71 07/28/2023 0.75 07/27/2023 0.73 No results found for: TESTOST Noy Mary RN Urology Staff Note: I performed a face to face evaluation on the patient. My findings are as follows: Patient has recovered well from surgery. No significant discomfort. He notes that voiding is much easier than it was prior to surgery. On examination incisions are all healed. The mons area is still prominent. Glans penis is exposed and is viable. The penis retracts a bit, when stretched there is good healing of the scrotal skin around the base. Patient instructed to stretch the penis periodically to clean inside the skin fold, otherwise doing well. Return to clinic in the fall for recheck. 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 08/04/2023, office visit with Dr. Mulligan for wound check and drain removal. Today, here for scheduled visit with Dr. Alberto. Reporting no issues with urination. Still using the vaseline gauze to the surgical site. Feels like he is healing well. Initially exposed glans of penis to urinate, but ultimately left glans buried due to discomfort. Some moisture associated skin damage to scrotum. Transverse incision clean, dry and intact with edges well approximated. Sutures still visible. PAST MEDICAL HISTORY Diagnosis Date Atrial fibrillation (HCC) Chronic systolic heart failure (HCC) Coronary artery disease Diabetes (HCC) Hyperlipidemia Hypertension PAST SURGICAL HISTORY Procedure Laterality Date CABG (5) VENOUS GRAFTS & ARTERIAL GRAFT(S) 12/2021 PAST SURGICAL HISTORY OF N/A 07/28/2023 buried penis repair with mons escutcheonectomy and scrotoplasty Social History Tobacco Use Smoking status: Never Smokeless tobacco: Never Substance Use Topics Alcohol use: Yes Alcohol/week: 2.0 standard drinks of alcohol Types: 2 Cans of Beer (12oz) per week Drug use: Not Currently Current Outpatient Medications on File Prior to Visit Medication Sig amiodarone (PACERONE) 200 mg tablet Take 1 tablet by mouth once daily. FARXIGA 10 mg tablet Take 10 mg by mouth every morning. ezetimibe (ZETIA) 10 mg tablet Take 10 mg by mouth every morning. ENTRESTO 24-26 mg tablet TAKE 1 TABLET BY MOUTH IN THE MORNING AND IN THE EVENING pantoprazole DR (PROTONIX) 40 mg tablet TAKE 1 TABLET BY MOUTH ONCE A DAY ON EMPTY STOMACH FOLLOWED IN 30 MINUTES WITH BREAKFAST 90 spironolactone (ALDACTONE) 25 mg tablet Take 25 mg by mouth every morning. insulin glargine U-300 conc (TOUJEO MAX U-300 SOLOSTAR) 300 unit/mL (3 mL) inpn Inject 60 Units subcutaneously once daily. metFORMIN ER (GLUCOPHAGE XR) 500 mg 24 hr tablet Take 1 tablet by mouth three times a day. acetaminophen (TYLENOL) 325 mg tablet Take 650 mg by mouth every 6 hours as needed. insulin aspart U-100 (NOVOLOG) 100 unit/mL Inject 25 Units subcutaneously three times a day before meals. aspirin, enteric coated (ASPIRIN, ENTERIC COATED) 81 mg EC tablet Take 81 mg by mouth. metoprolol succinate ER (TOPROL XL) 100 mg TAKE 1 TABLET BY MOUTH IN THE MORNING AND 1 TABLET AT BEDTIME potassium chloride ER (KLOR-CON) 20 mEq tablet Take 20 mEq by mouth. omega 4-gna-uwt-fish oil (FISH OIL) 100-160-1,000 mg cap Take 1,000 mg by mouth. No current facility-administered medications on file prior to visit. DATA/OR LABS TO BE REVIEWED: (Simple=1 data point; Complex= 2 or more) No results found for: PSA Creatinine (mg/dL) Date Value 07/29/2023 0.71 07/28/2023 0.75 07/27/2023 0.73 No results found for: TESTOST Noy Mary RN Urology Staff Note: I performed a face to face evaluation on the patient. My findings are as follows: Patient has recovered well from surgery. No significant discomfort. He notes that voiding is much easier than it was prior to surgery. On examination incisions are all healed. The mons area is still prominent. Glans penis is exposed and is viable. The penis retracts a bit, when stretched there is good healing of the scrotal skin around the base. Patient instructed to stretch the penis periodically to clean inside the skin fold, otherwise doing well. Return to clinic in the fall for recheck. Jian Alberto MD documented in this encounter [facility] 09-13-2023 Note Patient Outreach (UR OLMN) CADEN WILLS ([id number]) 1960 M Date Time Provider Department 09/13/23 JIAN ALBERTO UROZANDERN During your visit today, we recorded the following information about you: Allergies As of Date: 09/13/2023 (No Known Allergies) Date Reviewed: 09/13/2023 Reviewed by: Rafal Mulligan MA - Fully Assessed Visit Diagnosis:Screening for genitourinary condition [Z13.89] Order(s):URINALYSIS, REFLEX MICROSCOPIC [[id number]] Order #: [id number] Prescriptions as of 09/18/2023 - amiodarone (PACERONE) 200 mg tablet Take 1 tablet by mouth once daily. - FARXIGA 10 mg tablet Take 10 mg by mouth every morning. - ezetimibe (ZETIA) 10 mg tablet Take 10 mg by mouth every morning. - ENTRESTO 24-26 mg tablet TAKE 1 TABLET BY MOUTH IN THE MORNING AND IN THE EVENING - pantoprazole DR (PROTONIX) 40 mg tablet TAKE 1 TABLET BY MOUTH ONCE A DAY ON EMPTY STOMACH FOLLOWED IN 30 MINUTES WITH BREAKFAST 90 - spironolactone (ALDACTONE) 25 mg tablet Take 25 mg by mouth every morning. - insulin glargine U-300 conc (TOUJEO MAX U-300 SOLOSTAR) 300 unit/mL (3 mL) inpn Inject 60 Units subcutaneously once daily. - metFORMIN ER (GLUCOPHAGE XR) 500 mg 24 hr tablet Take 1 tablet by mouth three times a day. - acetaminophen (TYLENOL) 325 mg tablet Take 650 mg by mouth every 6 hours as needed. - insulin aspart U-100 (NOVOLOG) 100 unit/mL Inject 25 Units subcutaneously three times a day before meals. - aspirin, enteric coated (ASPIRIN, ENTERIC COATED) 81 mg EC tablet Take 81 mg by mouth. - metoprolol succinate ER (TOPROL XL) 100 mg TAKE 1 TABLET BY MOUTH IN THE MORNING AND 1 TABLET AT BEDTIME - potassium chloride ER (KLOR-CON) 20 mEq tablet Take 20 mEq by mouth. - omega 6-bzk-chb-fish oil (FISH OIL) 100-160-1,000 mg cap Take 1,000 mg by mouth. 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] 05/03/2023 Scarring of penis [N48.6] 05/03/2023 Erectile dysfunction associated with type 2 beverley*05/03/2023 Primary hypertension [I10] 07/27/2023 Hyperlipidemia [E78.5] 07/27/2023 Coronary artery disease involving coronary bypa*07/27/2023 Chronic systolic CHF (congestive heart failure)*07/27/2023 Paroxysmal atrial fibrillation (HCC) [I48.0] 07/27/2023 GERD (gastroesophageal reflux disease) [K21.9] 07/27/2023 Type 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, with long-term curren*07/27/2023 Class 2 obesity due to excess calories without *07/27/2023 Encounter Status:Closed by ROULA LEWIS on 09/18/23 [facility] 08-04-2023 History of Presen t illness Narrative HPI Caden Wills is a 63 year old male with a 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 Since last evaluation notes overall doing well, some lingering discomfort but not bad. Drain output has been minimal over the past week. Has been on Keflex prophylaxis. LABS Creatinine Date Value Ref Range Status 07/29/2023 0.71 (L) 0.73 - 1.22 mg/dL Final 07/28/2023 0.75 0.73 - 1.22 mg/dL Final 07/27/2023 0.73 0.73 - 1.22 mg/dL Final No results found for: PSA PHYSICAL EXAMINATION GENERAL: no acute distress, well appearing, pleasant RESP: normal work of breathing on room air ABDOMEN: soft, mons incision clean and intact NEURO/PSYCH: no gross neuromuscular dysfunction EXTREMITIES: no extremity edema GENITOURINARY: Penile dressing still in place, removed with some raw coronal tissue but clean incision line and shaft viable. orthotopic patent meatus, penoscrotal incision clean and intact, scrotum with mild edema Drain removed IMPRESSION S/p buried penis repair, drain removed today, so far healing quite well. Counseled on performing daily hygiene and Vaseline to tip of penis for irritation. PLAN - RV in [address] Roger Mulligan MD Male Genitourinary Reconstruction & Prosthetic Surgery Fellow documented in this encounter [facility] 08-04-2023 Note HNO ID: [id number] Author: GIOVANNI MULLIGAN MD Service: ? Author Type: Fellow Type: Progress Notes Filed: 08/04/2023 17:46 Note Text: RUBY Wills is a 63 year old male with a 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 Since last evaluation notes overall doing well, some lingering discomfort but not bad. Drain output has been minimal over the past week. Has been on Keflex prophylaxis. LABS Creatinine Date Value Ref Range Status 07/29/2023 0.71 (L) 0.73 - 1.22 mg/dL Final 07/28/2023 0.75 0.73 - 1.22 mg/dL Final 07/27/2023 0.73 0.73 - 1.22 mg/dL Final No results found for: PSA PHYSICAL EXAMINATION GENERAL: no acute distress, well appearing, pleasant RESP: normal work of breathing on room air ABDOMEN: soft, mons incision clean and intact NEURO/PSYCH: no gross neuromuscular dysfunction EXTREMITIES: no extremity edema GENITOURINARY: Penile dressing still in place, removed with some raw coronal tissue but clean incision line and shaft viable. orthotopic patent meatus, penoscrotal incision clean and intact, scrotum with mild edema Drain removed IMPRESSION S/p buried penis repair, drain removed today, so far healing quite well. Counseled on performing daily hygiene and Vaseline to tip of penis for irritation. PLAN - RV in [address] Roger Mulligan MD Male Genitourinary Reconstruction AND Prosthetic Surgery Fellow [facility] [facility] Note HNO ID: [id number] Author: GRAZYNA PURDY MD Service: Urology Author Type: Resident Type: Progress Notes Filed: 07/29/2023 08:41 Note Text: [facility] UROLOGY PROGRESS NOTE Name: Caden Wills Bed: Main - Periop OR/Main - * Date: 07/29/2023 After Hours [facility] Urology Service Pager: [phone] ASSESSMENT AND PLAN Caden Wills is a 63 year old male with history of IDDM, CAD s/p 12/2021 CABG on ASA 81, CHF on diuretic, a fib on apixaban, HTN as well as buried penis and ED now 1 Day Post-Op s/p buried penis repair and scrotoplasty Interval: -Feels well, tolerating clears, minimal pain managed w tylenol - No nausea or vomiting. - No chest pain or shortness of breath . AF BP 90s-100s SBP, HR 60s on RA UOP 1460 TEJ 22 WBC 13 (10) Hb 14.5 (16) Cr 0.71 (0.75) - Good penile glans cap refill, incisions clean and without significant tenderness #Neuro -PRN IV and PO pain control - Tylenol #CV/Resp -HDS, continue to monitor #GI/FEN -Diet - Clear liquid diet, ADAT - IVF 50cc/hr # -Nieto: will plan for TOV on POD1 - Continue TEJ drain in place #Activity- - OOB this AM #DVT prophylaxis - SCDs, Heparin SQ and PAS Stockings on #Antibiotics - Perioperative antibiotics - zosyn - will continue ancef while inpatient #Disposition - anticipate DC on POD1 pending course Active Problems HTN, POA: continue home amiodarone, metoprolol, spironolactone HLD, POA: continue home eztetimibe CAD s/p CABG, POA: s/p CABG in 2021, continue to monitor closely Chronic systolic CHF with reduced EF , POA: continue on Entresto, Beta gonzalo, and spironolactone while inpatient Paroxysmal atrial fibrillation, POA: continue home amiodarone and metoprolol GERD, POA: continue PPI T2DM, POA: continue home metformin, hold farxiga, SSI inpatient Grazyna Purdy MD Urology Resident [facility] Pager [phone] For weekend or after hours issues [place] [phone] 6:53 AM 07/29/2023 Subjective SUBJECTIVE - See interval above Objective Vital Signs BP 97/55 Pulse 66 Temp 36.6 ?C (97.9 ?F) (Temporal) Resp 18 Ht 177.8 cm (5' 10 ) Wt 122.5 kg (270 lb) SpO2 93% BMI 38.74 kg/m? Body mass index is 38.74 kg/m?. Input and Output Intake/Output Summary (Last 24 hours) at 07/29/2023 0652 Last data filed at 07/29/2023 0629 Gross per 24 hour Intake 2727 ml Output 1507 ml Net 1220 ml PHYSICAL EXAM BP 97/55 Pulse 66 Temp 36.6 ?C (97.9 ?F) (Temporal) Resp 18 Ht 177.8 cm (5' 10 ) Wt 122.5 kg (270 lb) SpO2 93% BMI 38.74 kg/m? General: Patient in no acute distress HEENT: Non-traumatic, sclera anicteric, EOMI CV: Warm and well perfused Resp: Breathing comfortably on room air GI: Abdomen soft, nondistended, appropriately tender MSK: No CVA tenderness, LE compartments soft and non-tender : pubic incision covered with primapore that is c/d/I, good penile glans cap refill, penile shaft wrapped without strikethrough, nieto catheter draining clear light yellow urine, TEJ draining sanguinous fluid Neuro: Alert and Oriented x3 Recent Labs 07/29/23 0411 07/28/23 1302 07/27/23 1324 WBC 13.43* 10.10 10.12 HB 14.5 16.6 16.6 HCT 44.7 50.7 51.6* PLT 268 284 264 NA 139 140 140 K 4.3 4.7 4.1 CHLOR 102 104 101 CO2 23 23 25 BUN 18 16 17 CREAT 0.71* 0.75 0.73 GLUC 173* 182* 82 Imaging All relevant recent imaging reviewed [facility] 07-28-2023 Note HNO ID: [id number] Author: JUICE GEE MD Service: Urology Author Type: Resident Type: Progress Notes Filed: 07/28/2023 16:17 Note Text: [facility] UROLOGY PROGRESS NOTE Name: Caden Wills Bed: Main - Periop OR/Main - * Date: 07/28/2023 After Hours [facility] Urology Service Pager: [phone] ASSESSMENT AND PLAN Caden Wills is a 63 year old male with history of IDDM, CAD s/p 12/2021 CABG on ASA 81, CHF on diuretic, a fib on apixaban, HTN as well as buried penis and ED now Day of Surgery s/p buried penis repair and scrotoplasty Interval: - Doing well, no issues postoperatively. Some penile pain - No nausea or vomiting. - No chest pain or shortness of breath . - Vital signs within normal limits, afebrile - Hgb 16.6 - Cr 0.75 - UOP 585cc - TEJ 5cc - Good penile glans cap refill, incisions clean and without significant tenderness #Neuro -PRN IV and PO pain control - Tylenol #CV/Resp -HDS, continue to monitor #GI/FEN -Diet - Clear liquid diet - IVF 50cc/hr # -Nieto: continue overnight, will plan for TOV on POD1 - Continue TEJ drain in place #Activity- - Bedrest overnight, will plan for OOB tomorrow morning #DVT prophylaxis - SCDs, Heparin SQ and PAS Stockings on #Antibiotics - Perioperative antibiotics - zosyn - will continue ancef while inpatient #Disposition - anticipate DC on POD1 pending course Active Problems HTN, POA: continue home amiodarone, metoprolol, spironolactone HLD, POA: continue home eztetimibe CAD s/p CABG, POA: s/p CABG in 2021, continue to monitor closely Chronic systolic CHF with reduced EF , POA: continue on Entresto, Beta gonzalo, and spironolactone while inpatient Paroxysmal atrial fibrillation, POA: continue home amiodarone and metoprolol GERD, POA: continue PPI T2DM, POA: continue home metformin, hold farxiga, SSI inpatient Juice Gee MD Urology Resident [facility] Pager [phone] For weekend or after hours issues please page the on-call urology pager [phone] 07/28/2023 4:16 PM Subjective SUBJECTIVE - See interval above Objective Vital Signs BP 112/64 Pulse 71 Temp 36.7 ?C (98.1 ?F) (Oral) Resp 20 Ht 177.8 cm (5' 10 ) Wt 122.5 kg (270 lb) SpO2 94% BMI 38.74 kg/m? Body mass index is 38.74 kg/m?. Input and Output Intake/Output Summary (Last 24 hours) at 07/28/2023 1616 Last data filed at 07/28/2023 1400 Gross per 24 hour Intake 1150 ml Output 615 ml Net 535 ml PHYSICAL EXAM BP 112/64 Pulse 71 Temp 36.7 ?C (98.1 ?F) (Oral) Resp 20 Ht 177.8 cm (5' 10 ) Wt 122.5 kg (270 lb) SpO2 94% BMI 38.74 kg/m? General: Patient in no acute distress HEENT: Non-traumatic, sclera anicteric, EOMI CV: Warm and well perfused Resp: Breathing comfortably on room air GI: Abdomen soft, nondistended, appropriately tender MSK: No CVA tenderness, LE compartments soft and non-tender : pubic incision covered with primapore that is c/d/I, good penile glans cap refill, penile shaft wrapped without strikethrough, nieto catheter draining clear light yellow urine, TEJ draining sanguinous fluid Neuro: Alert and Oriented x3 Recent Labs 07/28/23 1302 07/27/23 1324 WBC 10.10 10.12 HB 16.6 16.6 HCT 50.7 51.6* PLT 284 264 NA 140 140 K 4.7 4.1 CHLOR 104 101 CO2 23 25 BUN 16 17 CREAT 0.75 0.73 GLUC 182* 82 Imaging All relevant recent imaging reviewed [facility] 07-28-2023 Note HNO ID: [id number] Author: JEFFY MARTINEZ SRNA Service: ? 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 Staffing Anesthesiologist: Chilango Curiel MD SRNA: Jeffy Martinez SRNA Indications and Patient Condition Indications for airway management: anesthesia and airway protection Preoxygenated: yes anesthesia circuit Patient position: sniffing, ramp and reverse Trendelenburg Method: asleep Cricoid Pressure: No Manual In-Line Stabilization: No Difficult Mask: No Airway Accessory: oral airway (100 mm red) Final Airway Details Final airway type: endotracheal airway Final Endotracheal Airway: ETT Cuffed: yes Successful intubation technique: video laryngoscopy Devices used: Marie and intubating stylet Endotracheal tube insertion site: oral Blade: Javon Blade size: #4 ETT size (mm): 7.5 Measured from: lips Measurement (cm): 23 Placement verified by: chest auscultation and capnometry Cormack-Lehane Classification: grade IIa - partial view of glottis Number of attempts at approach: 1 Failed airway: no Unrecognized esophageal intubation: no Airway not difficult Comments Preoxygenated. Easy BMV, once muscle relaxant administered (2 person BMV before muscle relaxant w/o difficulty). No apparent trauma. Soft bite block. SIGNATURE: KD Cardenas PATIENT NAME: Caden Wills DATE: July 28, 2023 TIME: 10:48 AM CSN: [id number] [facility] 07-27-2023 Instructions Kevin Goldsmith APRN.SENIOR CLERK - 07/27/2023 1:04 PM EDT PATIENT PREOPERATIVE INSTRUCTIONS Dr. Alberto has scheduled you for your procedure at this surgery center: [facility] Scheduling Office: [phone] --[address] [place] [address]. Please read below carefully for your personalized instructions. Dietary Restrictions: - No solid food after midnight. - You may have 12 ounces of clear liquids (water, clear juices such as apple juice or gatorade, carbonated beverages, clear tea, black coffee, jello) until 2 hours before scheduled arrival at facility. Medications: Unless instructed differently below, stay on all of your medications until your surgery. If you start any new medications after today's visit, please contact your surgeon. Pre-Surgery Med Instructions Medication Instructions amiodarone (PACERONE) 200 mg tablet Take the day of surgery with a small sip of water FARXIGA 10 mg tablet Stop 3 days before surgery ezetimibe (ZETIA) 10 mg tablet Take the day of surgery with a small sip of water ENTRESTO 24-26 mg tablet Do not take the day of surgery pantoprazole DR (PROTONIX) 40 mg tablet Take the day of surgery with a small sip of water spironolactone (ALDACTONE) 25 mg tablet Do not take the day of surgery insulin glargine U-300 conc (TOUJEO MAX U-300 SOLOSTAR) 300 unit/mL (3 mL) inpn Insulin: Do not take the morning of surgery. Take 75% of your usual dose the night before surgery if possible. If not possible, take full dose the night before surgery. metFORMIN ER (GLUCOPHAGE XR) 500 mg 24 hr tablet Do not take the day of surgery acetaminophen (TYLENOL) 325 mg tablet As needed. insulin aspart U-100 (NOVOLOG) 100 unit/mL Do not take the day of surgery aspirin, enteric coated (ASPIRIN, ENTERIC COATED) 81 mg EC tablet Do not take the day of surgery metoprolol succinate ER (TOPROL XL) 100 mg Take the day of surgery with a small sip of water potassium chloride ER (KLOR-CON) 20 mEq tablet Do not take the day of surgery omega 0-fts-pvu-fish oil (FISH OIL) 100-160-1,000 mg cap Do not take the day of surgery If you take any medications for erectile dysfunction-Cialis (Tadalafil), Levitra, Staxyn (Vardenafil) Viagra (Sildenenafil please do not take these for 48 hours before surgery. If you start any new medications after today's visit, please contact the surgeon's office. Blood Thinning Medications: - Stop NSAIDS (Ibuprofen, Advil, Aleve, Motrin, Celebrex, Mobic, etc.) 7 days before surgery, as directed by your surgeon. 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 - Stop Vitamin E, ALL multi-vitamins, herbals and dietary supplements 7 days before surgery. - You may take Tylenol (Acetaminophen) or any of your pain medications that do not contain aspirin or NSAIDS as needed. Important Reminders: - Candy, mints, and tobacco products are NOT permitted the morning of surgery. - Hearing aids, dentures and glasses may be worn the morning of surgery. - NO jewelry, body piercings, makeup, hairpins or contacts are to be worn the day of surgery. If you develop symptoms such as a fever, cold, or flu, or have other changes to your health within TWO DAYS of scheduled surgery or the morning of surgery, please contact the surgery center above. Personal Belongings: -Please have photo ID and insurance cards. -If you do not have a copy of advance directives on file with us, please bring a copy with you on the day of surgery. - Leave ALL valuables and money at home or with family members. For Outpatient Procedures: - YOU MUST HAVE A RESPONSIBLE TECHNOLOGY MANAGER TAKE YOU HOME. A TRAVEL PTA OR DATA ENTRY ASSISTANT CANNOT BE MADE A RESPONSIBLE TECHNOLOGY MANAGER. - We recommend that a responsible person stays with you overnight to take care of you. - You cannot stay in a hotel alone after outpatient surgery. You will not be permitted to have your surgery, if you do not have someone to take care of you. Arrival Time for Surgery: - To obtain your arrival time for surgery, call your physician's office the day before your surgery. - If your surgery is scheduled for Monday, call the Monday before. Your surgeon s planner/scheduler will tell you what time to call the office. - If you have not reached the departmental planner/scheduler by 5 P.M., call [phone] after 5 P.M. the day before your surgery. Please be aware that emergency situations arise, which may delay or change your surgical time. If this happens, we will notify you as soon as possible and regret any inconvenience. If you already have an Advance Directive, please fax a copy to [phone] or email to for it to be added to your chart. If you do not have an Advance Directive, you can find the appropriate form and more information at [email or web address]. We recommend that you complete the Advance Directive form found on the website and bring it with you the day of your surgery. It can be witnessed and scanned into your chart that day. Kevin Goldsmith APRN.CHUY documented in this encounter [facility] 07-27-2023 History and physical note Images from the original note were not included. HISTORY AND PHYSICAL EXAMINATION SERVICE DATE: 07/27/2023 SERVICE TIME: 12:49 PM PRIMARY CARE PHYSICIAN: Fahad Aceves, DO Assessment Patient has the following medical conditions which may affect tigre-operative course: Primary hypertension Stable on Amiodarone 200 mg daily, Metoprolol 100 mg BID, and Spironolactone 25 mg daily. BP today 114/66. Hyperlipidemia Stable on Ezetimibe 10 mg daily. Coronary artery disease involving coronary bypass graft of [place] heart without angina pectoris CAD, hx of VA s/p CABG x 5 in Dec 2021. Patient had a pre-op evaluation with Cardiology, 06/19/[address] Colmenares. Per note, Perioperative Cardiac Risk Assessment: Mr. Caden Wills's Is to undergo circumcision surgery which is [...] cardiac events (< 1% chance of , VA, CHF, malignant ventricular arrhythmias or high grade AV block) and I would recommend proceeding ahead with the circumcision surgery as planned. Patient denies recent chest pain, palpitations, shortness of breath. Endorses good functional capacity (5.5+ METs). Chronic systolic CHF (congestive heart failure) ([facility]) Echo in Dec 2021 showed EF 35% Stable on Entresto 24-26 mg BID and Spironolactone 25 mg daily. Cardiology note 06/19/23 notes the following, Echo 03/30/22 ([facility]) - Global LV systolic function is difficult to assess but appears preserved, estimated ejection fraction is 55 to 60%, unable to accurately evaluate wall motion abnormalities. Paroxysmal atrial fibrillation (HCC) Hx of post-op atrial fibrillation, treated with amiodarone and converted back to NSR. Stable on Amiodarone 200 mg daily and Metoprolol 100 mg BID. GERD (gastroesophageal reflux disease) Stable on Pantoprazole 40 mg daily. Type 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, with long-term current use of insulin (HCC) Stable on Insulin glargine 60 units daily, Insulin aspart 25 units TID with meals, Farxiga 10 mg daily, and Metformin 500 mg TID. Patient holding Farxiga for upcoming surgery, last dose 07/25/23. Outside HgbA1C 01/04/22 - 6.6% PLAN: HgbA1C ordered. Class 2 obesity due to excess calories without serious comorbidity with body mass index (BMI) of 39.0 to 39.9 in adult Body mass index is 39.29 kg/m Loco Activity Status Index: METS: Climb a flight of stairs or walk up a hill (5.50 METs) DASI Score: 5.5 Patient denies any chest pain or undue shortness of breath with the above physical activity. Clinical Frailty Scale: 4. Apparently vulnerable STOP-Bang Score: Snores loudly Has or is being treated for high blood pressure BMI greater than 35 kg/m^2 Patient over 50 years old Male patient Denies feeling tired, fatigued, or sleepy during the daytime Has not been observed to stop breathing or choking/gasping during sleep Does not have a large neck STOP-Bang Score: 5 [id number] Score: Age: <65 Sex: male CHF history: Yes Hypertension history: Yes Stroke/TIA/thromboembolism history: No Vascular disease history: Yes Diabetes history: Yes [id number] Score: 4 ARISCAT Score: Age: 51-80 Preoperative SpO2: 91-95% Respiratory infection in the last month: No Preoperative anemia: No Surgical incision: peripheral Duration of surgery: >3 hrs Emergency procedure: No ARISCAT Score: 34 ASA Class: 3 ANESTHESIA FINDINGS: Intubation History: No history of difficult intubation. No abnormal airway history Significant Anesthesia Considerations: none Airway History: No history of difficult airway No abnormal airway history I - PHYSICAL EVALUATION AIRWAY Patient intubated: No. Tracheostomy tube not present Mallampati: III. TM distance: <3 FB. Neck ROM: full ROM without neurological symptoms. Mouth opening: adequate. Short neck: yes. Thick neck: yes Landers present: no Lip Bite Test: I Microretrognathia/Micronagthia/ Recessed Chin: Yes DENTAL Dentures, upper: partial. Additional comments: Caps/crowns. II - ANESTHESIA PLAN ASA Score: 3 Anesthetic plan additional comments: *PACC/TCI - anesthesia choice. Beta Gonzalo Monitoring Plan Post Procedure Analgesic Plan Prepared for Surgery: optimally prepared for surgery, pending day of surgery. PACC appointment 07/27/23, surgery scheduled for next day 07/28/23. Pending DOS review of labs. CONSULTS: The following consults have been initiated at this time: cardiology (Patient had a pre-op evaluation with Dr. Colmenares on 06/19/23, see under problem list for risk assessment). Planned Anesthetic: anesthesia choice The Following Tests/Procedures Have Been Initiated: Orders Placed This Encounter Hemoglobin A1C Standing Status: Future Standing Expiration Date: 10/26/2023 Orders placed by surgeon's office: CBC, CMP REASON FOR VISIT: Caden Wills is a 63 year old male who is scheduled for Procedure(s): CYSTOSCOPY FLEXIBLE (N/A) SCROTOPLASTY V-Y (N/A) EXCISION, EXCESSIVE SKIN AND SUBCUTANEOUS TISSUE, OTHER AREA prepubic lipectomy with fixation of skin to pubic region (N/A) EXCISION LYSIS PENILE POST-CIRCUMCISION ADHESIONS (N/A) at the request of Jian Sandoval MD for consultation. My final recommendation will be communicated back to the requesting physician by way of shared medical record or letter. Subjective The patient has the following: ACTIVE PROBLEM LIST Acquired Buried Penis Scarring of Penis Erectile Dysfunction Associated With Type 2 Diabetes Mellitus (Hcc) (Hcc) Primary Hypertension Hyperlipidemia Coronary Artery Disease Involving Coronary Bypass Graft of [place] Heart Without Angina Pectoris Chronic Systolic Chf (Congestive Heart Failure) (Hcc) Paroxysmal Atrial Fibrillation (Hcc) Gerd (Gastroesophageal Reflux Disease) Type 2 Diabetes Mellitus, With Long-Term Current Use of Insulin (Hcc) Class 2 Obesity Due to Excess Calories Without Serious Comorbidity With Body Mass Index (Bmi) of 39.0 to 39.9 in Adult COVID-19 Immunization Status Overdue - Covid-19 Vaccine ( season) Overdue since 12/16/2022 03/23/2021 Outside Immunization: COVID-19 Vaccine Pfizer - Documentation Purposes Only 08/03/2020 Outside Immunization: COVID-19 Vaccine Pfizer - Documentation Purposes Only 07/13/2020 Outside Immunization: COVID-19 Vaccine Pfizer - Documentation Purposes Only Only the first 3 history entries have been loaded, but more history exists. CHIEF COMPLAINT: Acquired buried penis HPI: Patient is a 63 year old male presenting to PACC; has c/o acquired buried penis. Patient denies recent fevers, chills, unexplained weight loss, dysuria, hematuria, UTI. The above surgery was recommended; patient has elected to proceed. REVIEW OF SYSTEMS: General: No weight loss, malaise or fevers. Neurological: Negative for: seizures, TIA and strokes. Respiratory: No history of current cough or dyspnea, or pneumonia in the past 6 weeks. No history of respiratory/pulmonary symptoms or problems. Cardiovascular: Positive for: atrial fibrillation, CAD, CHF, hyperlipidemia, hypertension and open heart surgery Negative for: chest pain and DVT/PE. GI: Positive for: GERD Negative for: abdominal pain, liver disease, nausea and vomiting. : See HPI. Endocrine: Positive for: diabetes mellitus. Patient's diabetes mellitus is controlled by insulin and oral agents. Hematology: Positive for: chronic anti-coagulation/platelet meds. Patient is on anti-coagulation/platelet medication(s): Aspirin. Oncology: No history of CA metastasis, chemo within 30 days, or radiotherapy within 90 days. No history of oncological symptoms or problems. Psych: No history of psychiatric symptoms or problems. Musculoskeletal: Positive for: back pain and joint pain. Skin: Negative for lesions, rash and itching. PAST MEDICAL HISTORY Diagnosis Date Atrial fibrillation (HCC) Chronic systolic heart failure (HCC) Coronary artery disease Diabetes (HCC) Hyperlipidemia Hypertension PAST SURGICAL HISTORY Procedure Laterality Date CABG (5) VENOUS GRAFTS & ARTERIAL GRAFT(S) 12/2021 FAMILY HISTORY Problem Relation Age of Onset Anesthesia Problems No Family History Social History Tobacco Use Smoking status: Never Smokeless tobacco: Never Substance Use Topics Alcohol use: Yes Alcohol/week: 2.0 standard drinks of alcohol Types: 2 Cans of Beer (12oz) per week Drug use: Not Currently Prior to Admission medications as of 07/27/23 1254 Medication Sig Last Dose Taking amiodarone (PACERONE) 200 mg tablet Take 1 tablet by mouth once daily. Taking Yes FARXIGA 10 mg tablet Take 10 mg by mouth every morning. Taking Yes ezetimibe (ZETIA) 10 mg tablet Take 10 mg by mouth every morning. Taking Yes ENTRESTO 24-26 mg tablet TAKE 1 TABLET BY MOUTH IN THE MORNING AND IN THE EVENING Taking Yes pantoprazole DR (PROTONIX) 40 mg tablet TAKE 1 TABLET BY MOUTH ONCE A DAY ON EMPTY STOMACH FOLLOWED IN 30 MINUTES WITH BREAKFAST 90 Taking Yes spironolactone (ALDACTONE) 25 mg tablet Take 25 mg by mouth every morning. Taking Yes insulin glargine U-300 conc (TOUJEO MAX U-300 SOLOSTAR) 300 unit/mL (3 mL) inpn Inject 60 Units subcutaneously once daily. Taking Yes metFORMIN ER (GLUCOPHAGE XR) 500 mg 24 hr tablet Take 1 tablet by mouth three times a day. Taking Yes acetaminophen (TYLENOL) 325 mg tablet Take 650 mg by mouth every 6 hours as needed. Taking Yes insulin aspart U-100 (NOVOLOG) 100 unit/mL Inject 25 Units subcutaneously three times a day before meals. Taking Yes aspirin, enteric coated (ASPIRIN, ENTERIC COATED) 81 mg EC tablet Take 81 mg by mouth. Taking Yes metoprolol succinate ER (TOPROL XL) 100 mg TAKE 1 TABLET BY MOUTH IN THE MORNING AND 1 TABLET AT BEDTIME Taking Yes potassium chloride ER (KLOR-CON) 20 mEq tablet Take 20 mEq by mouth. Taking Yes omega 6-ogf-cgs-fish oil (FISH OIL) 100-160-1,000 mg cap Take 1,000 mg by mouth. Taking Yes No medication comments found. ALLERGIES No Known Allergies Objective PHYSICAL EXAM: General: alert and oriented and obese. Pertinent negatives noted - not distressed. Skin: normal color, no rash or lesions. HEENT: pupils equal round and pupils reactive to light. Cardiovascular: regular rate and rhythm, normal S1 and S2, no rub, murmurs, or gallop. Respiratory: normal breath sounds, no wheezes or crackles. Abdomen: bowel sounds present and soft. Pertinent negatives noted - not tender. Extremities: Positive for joint tenderness. Neurological: normal cognition and motor skills. PAIN ASSESSMENT: VITALS: BP: 114/66 Temp: 36.5 C (97.7 F) Temp src: Temporal Pulse: 67 Resp: 18 SpO2: 95 % Body mass index is 39.29 kg/m Diagnostic tests reviewed for today's visit: Lab Value Units Date High Low HB 16.6 g/dL 07/27/2023 17.0 13.0 HCT 51.6 % 07/27/2023 51.0 39.0 WBC 10.12 k/uL 07/27/2023 11.00 3.70 PLT 264 k/uL 07/27/2023 400 150 NA No results within date range. K No results within date range. GLUC No results within date range. BUN No results within date range. CREAT No results within date range. PTSEC No results within date range. INR No results within date range. APTT No results within date range. ALT No results within date range. AST No results within date range. TBILI No results within date range. TSH No results within date range. Lab Value Units Date High Low HCGQT No results within date range. UHCG No results within date range. HCG, BODY* No results within date range. Lab Value Units Date High Low ABORHD No results within date range. ABSCREEN No results within date range. No results found for: HBA1C Recent Results (from the past 8760 hour(s)) ECG COMPLETE Collection Time: 06/19/23 1:03 PM Result Value Ventricular Rate 68 Atrial Rate 68 P-R Interval 188 QRS Duration 88 QT Interval 414 QTC Calculation (Bazett) 440 Calculated P [place] 53 Calculated R [place] 20 Calculated T [place] 86 Impression NORMAL SINUS RHYTHM LOW VOLTAGE QRS NONSPECIFIC ST ABNORMALITY ABNORMAL ECG Confirmed by LIGIA COLMENARES M.D. ([id number]), newspaper editor managing Lainey Agee ([id number]) on 06/19/2023 2:11:39 PM 03/30/2022 Echo- [facility] Global LV systolic function is difficult to [...] aorta is upper normal limits in size. Instructions Given to Patient: Instructions located in the after visit summary. Patient given verbal and written preop instructions and voices comprehension and compliance. SIGNATURE: Kevin Goldsmith APRN.CNP PATIENT NAME: Caden Wills DATE: July 27, 2023 TIME: 2:46 PM PAGER/CONTACT #: documented in this encounter [facility] 07-18-2023 Miscellaneous Notes Called and spoke to Caden Wills regarding pre op issues. Instructed patient to take last dose of Farxiga on 07/23. Informed patient that his case is currently scheduled as first round with a [facility]. States that he will be going home after pre ops on 07/26 and coming back the following day. No other questions or concerns expressed. Noy Mary RN documented in this encounter [facility] 06-19-2023 History of Presen t illness Narrative Images from the original note were not included. [facility] Heart and Vascular [place] [facility] Department of Cardiovascular Medicine SECTION [...] moving heavy furniture (8.00 METs). 12/06/2022 Robyn Miller Cardiology- [facility] HPI Pleasant 62-year-old man with prior history of coronary disease status post percutaneous intervention to chronically occluded LAD in 2007. Additional history includes diabetes, hypertension and hyperlipidemia. He was admitted in December 2021 to [facility] with chest pain and diagnosed with [...] 1 tablet by mouth every afternoon. omega 3-imf-gzg-fish oil (FISH OIL) 100-160-1,000 mg cap Take [...] JVD, carotids well felt, no bruits. CARDIAC: [place] palpable in the 5th intercostal space mid [...] reviewed from the reports only: 03/30/2022 Echo- [facility] Global LV systolic function is difficult to [...] upper normal limits in size. 01/07/2022 CABGx5- [facility] CABG X 5; CPB; LEFT LEG VEIN HARVEST; INTRAOP FREDI Coronary artery bypass grafting x5, AGARWAL to LAD, saphenous vein graft to diagonal and obtuse marginal branches, and saphenous vein graft to PDA and right posterolateral ventricular branch. 01/05/2022 Cardiac Cath- [facility] Mid RCA lesion is 99% stenosed. Prox [...] infiltrated over the right radial artery. A 6-Yi Terumo Glidesheath slender was placed in right radial artery. Radial anti-vasospasm cocktail of verapamil 2.5 mg and nitroglycerin 200 mcg was administered through the sheath. All catheter exchanges were made over the PraXcell Torque guidewire. JL3.5 was used to engage the [...] cardiac events (< 1% chance of , [place], CHF, malignant ventricular arrhythmias or high grade [...] the patient follows up with an outside dry starch supervisor. 5. Diabetes mellitus: Managed by PCP. 6. [...] the follow up visit. Ligia Colmenares MD, [facility], [facility] CC: To use this Smartlink, specify the provider ID whose address you want to display, e.g., .PROVADDR[1 (where 1 is the provider ID). documented in this encounter [facility] 06-19-2023 Note HNO ID: [id number] Author: LIGIA COLMENARES MD Service: ? Author Type: Physician Type: Progress Notes Filed: 06/19/2023 13:23 Note Text: [facility] Heart and Vascular [place] Department of Cardiovascular Medicine SECTION [...] moving heavy furniture (8.00 METs). 12/06/2022 Robyn Miller Cardiology- [facility] HPI Pleasant 62-year-old man with prior history of coronary disease status post percutaneous intervention to chronically occluded LAD in 2007. Additional history includes diabetes, hypertension and hyperlipidemia. He was admitted in December 2021 to [facility] with chest pain and diagnosed with [...] 1 tablet by mouth every afternoon. omega 6-wfh-cbo-fish oil (FISH OIL) 100-160-1,000 mg cap Take [...] JVD, carotids well felt, no bruits. CARDIAC: [place] palpable in the 5th intercostal space mid clavicular line, (more content not included)... [facility] 06-19-2023 Note [place] [facility]iology - [facility] Subjective Caden Wills is a 63 y.o. [...] atrial fibrillation (CMS/HCC) Coronary artery disease involving kootenai coronary artery of kootenai heart without angina pectoris Chronic systolic heart [...] He was admitted in December 2021 to [facility] with chest pain and diagnosed with [...] and time. Psychiatric: (more content not included)... [facility] 06-14-2023 Miscellaneous Notes error documented in this encounter [facility] 06-14-2023 Miscellaneous Notes Called Caden Wills and [facility] to confirm surgery date of 07/[address] Alberto. Discussed pre op testing on 07/26 in [place], or he could make two trips. Asked him to confirm Asked patient to confirm receipt, and voice any questions or concerns. Number provided. Noy Mary RN documented in this encounter [facility] 05-03-2023 Note HNO ID: [id number] Author: JIAN ALBERTO MD Service: ? Author Type: Physician Type: Progress Notes Filed: 05/03/2023 14:28 Note Text: [facility] NEW PATIENT HISTORY AND PHYSICAL EXAM PATIENT INFO: Caden Wills 63 year old REFERRING M.D.: Antonia Bush MD [address] [place] [id number] This consult was requested by Dr. Bush for an opinion regarding buried penis and erectile dysfunction, and my final recommendations will be communicated to the requesting health care provider by way of the shared medical record for internal providers or letter via the [employer] for external providers. 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 , interested in future sexual life. [...] penis repair - timed voids q3h Giovanni Mulligan MD Male Genitourinary Reconstruction AND Prosthetic Surgery [...] of the sc (more content not included)... [facility] 05-03-2023 Note Patient Outreach (UR OLMN) CADEN WILLS ([id number]) 1960 M Date Time Provider Department 05/03/23 JIAN ALBERTO During your visit today, we recorded the following information about you: Allergies As of Date: 05/03/2023 (No Known Allergies) Date Reviewed: 05/03/2023 Reviewed by: Claudia Burt OCCA - Fully Assessed Visit Diagnosis:Screening for genitourinary condition [Z13.89] Order(s):URINALYSIS, REFLEX MICROSCOPIC [QYG0483] Order #: [id number]. #:[id number] Prescriptions as of 05/08/2023 - metFORMIN ER [...] tablet by mouth every afternoon. - omega 9-xkx-cbq-fish oil (FISH OIL) 100-160-1,000 mg cap Take 1,000 mg by mouth. - bumetanide (BUMEX ORAL) Take by mouth. 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 Progress activity as tolerated [employer] Other 01-03-2024 Evaluation note* Encounter Date Diagnosis [...] are maintaining regular scheduled appts with their dry starch supervisor. Post operative AF Amiodarone and Eliquis d/c [...] Referred to [facility] for evaluation and treatment [facility] Other 12-12-2023 Evaluation note* Encounter Date Diagnosis Assessment Notes Treatment Notes Treatment Clinical Notes Mar, Subungual hematoma of finger of right hand, initial encounter (ICD-10 - S60.10XA) Patient instructed on washing with soap and applying ointment to help soften scab area. [facility] Other 12-06-2023 Hospital Discharge instructions Patient Education [...] Follow these instructions at home: Medicines Take vlou-vpy-[id number] and prescription medicines only as told by [...] provider. Document Revised: 06/30/2021 Document Reviewed: 06/30/2021 [employer] Patient Education 2022 [employer]. Follow Up Care 11/25/2022 08:22:24 With:ROXANN BARR, Antonia Sharma, URL Address: [address] [place] [id number] When: Unknown [facility] 11-22-2023 Evaluation note* Encounter Date Diagnosis Assessment [...] issues. 6. Prescriptions: VERNA FOSTER: Sample chris max x1 pen given today. 7. Prescriptions will not be filled unless you are compliant with follow up appointments or have a follow up appointment scheduled as ordered by your provider. Refills should be requested at the time of your visit. Feb, Dietary counseling and surveillance (ICD-10 - Z71.3) see above Feb, HTN (hypertension) (ICD-10 - I10) On arb. Feb, assisted current use of insulin (ICD-10 - Z79.4) [...] BMI 39.0-39.9,adult (ICD-10 - Z68.39) see above [facility] Other 11-08-2023 Evaluation note* Encounter Date Diagnosis Assessment Notes Treatment Notes Treatment Clinical Notes Feb, Subungual hematoma of finger of right hand, initial encounter (ICD-10 - S60.10XA) Patient instructed to continue with daily soaking. Keep covered while at work [employer] Other 10-25-2023 NoteIn light of elevated lipid levels- LDL > 50-70 I added zetia to regime. Will repeat lipid level again in 3 months. Staff to notify pt Robyn Miller NP Division of Cardiology, [facility]- [phone] Pager- [phone] Email- [email or web address] Evaluation note* Encounter Date Diagnosis Assessment Notes Treatment Notes Treatment Clinical Notes Jan, Crushing injury of right index finger, initial encounter (ICD-10 - S67.190A) Elevated and rest. XR for FB, abscess, fx Jan, Abscess of finger of right hand (ICD-10 - L02.511) Warm soaks and elevate. Begin antibiotics. Jan, Type 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 with hyperglycemia (ICD-10 - E11.65) Increases risk of serious infection. Apieron [facility] [employer] Other 10-02-2023 NoteReviewed labs from 01/10/23 Pt is currently on lipitor 80 mg daily therefore will add zetia to regime for better Lipid management Repeat lipid level in 2-3 months. Robyn Miller PLASTICS AND COMPOSITES INSPECTOR Division of Cardiology, [facility] [phone] Pager- [phone] Email- [email or web address] Evaluation note* Encounter Date Diagnosis Assessment Notes Treatment Notes Treatment Clinical Notes Nov, Type 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 with hyperglycemia (ICD-10 - E11.65) [facility] Other 08-14-2023 Reason for visit NarrativeTKM - REFERRAL UROLOGY - NEED TO INFORM PATIENT [facility] [employer] Other 08-10-2023 Evaluation note* Encounter Date Diagnosis Assessment Notes Treatment Notes Treatment Clinical Notes Nov, Type 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 with hyperglycemia (ICD-10 - E11.65) 1. Controlled, a Type 2 diabetes with A1c of 6.6% 2. Blood glucose levels according to MeetMoi 2 cgm download 11/11/22-11/24/22: Avg glucose 172. [...] medication issues. 6. Prescriptions: VERNA FOSTER: Sample shivani 2 cgm given today. 7. Prescriptions will not be filled unless you are compliant with follow up appointments or have a follow up appointment scheduled as ordered by your provider. Refills should be requested at the time of your visit. Nov, Dietary counseling and surveillance (ICD-10 - Z71.3) see above Nov, HTN (hypertension) (ICD-10 - I10) On arb. Nov, assisted current use of insulin (ICD-10 - Z79.4) [...] dysfunction (ICD-10 - N52.9) referral to urology [facility] Other 08-10-2023 Evaluation note* Encounter Date Diagnosis Assessment Notes Treatment Notes Treatment Clinical Notes Nov, Erectile dysfunction (ICD-10 - N52.9) [facility] Other 07-03-2023 Evaluation note* Encounter Date Diagnosis [...] are maintaining regular scheduled appts with their dry starch supervisor. No bleeding complications Oct, Type 2 diabetes [...] (ICD-10 - Z12.5) Yearly LADAN and PSA [facility] Other 05-08-2023 Evaluation note* Encounter Date Diagnosis Assessment Notes Treatment Notes Treatment Clinical Notes August, Type 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 with hyperglycemia (ICD-10 - E11.65) 1. Controlled, a Type 2 diabetes with A1c of 6.5% 2. Blood glucose levels according to shivani 2 cgm download 08/09/22-08/22/22: Avg glucose 157. [...] (hypertension) (ICD-10 - I10) On arb. August, assistant terminal manager current use of insulin (ICD-10 - Z79.4) [...] encounter (ICD-10 - S90.422A) Referral to Dr. Rama briones 08/24/22 2:00 pm August, BMI 39.0-39.9,adult (ICD-10 - Z68.39) 2 pound weight loss from last visit, continue with weight loss efforts [facility] Other 04-03-2023 Evaluation note* Encounter Date Diagnosis Assessment Notes Treatment Notes Treatment Clinical Notes Jul, ASHD (arteriosclerot ic heart disease) (ICD-10 - I25.10) This patient is stable without activity related CP, dyspnea or lightheadedness. They are instructed to continue exercise and AHA diet plan. Instructed to continue exercise 2-3x weekly. After completiong CR plans on continuing at [facility] Jul, Primary hypertension (ICD-10 - [...] (coronary artery bypass graft) (ICD-10 - Z95.1) [facility] Other 02-02-2023 Evaluation note* Encounter Date Diagnosis Assessment Notes Treatment Notes Treatment Clinical Notes May, Type 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 with hyperglycemia (ICD-10 - E11.65) 1. Controlled, a Type 2 diabetes with A1c of 6.9% 2. Blood glucose levels according to MeetMoi 2 cgm download 05/06/22-05/19/22: Avg glucose 189. [...] carbs while at work. He will see dry starch supervisor Monday to see if he will be [...] (hypertension) (ICD-10 - I10) On arb. May, assisted current use of insulin (ICD-10 - Z79.4) May, Mixed hyperlipidemia (ICD-10 - E78.2) 01/2022 LDL 34 on statin- at target May, BMI 40.0-44.9, adult (ICD-10 - Z68.41) May, Vitamin B 12 deficiency (ICD-10 - E53.8) 02/05 vit b 12 227 at target May, Albuminuria (ICD-10 - R80.9) 02/05 m/a cr ratio 68. Reviewed importance of glucose/bp control to prevent further nephropathy [facility] Other 01-18-2023 Evaluation note* Encounter Date Diagnosis [...] may warrant EGD to r/o H. Pylori [facility] Other 11-11-2022 NotePROCEDURE: XR FOOT RT MIN [...] Electronically authenticated by: HEAVENLY LOUIS Date: 2022-02-25 06:39[facility]07-07-2022 Evaluation note* Encounter Date Diagnosis Assessment Notes Treatment Notes Treatment Clinical Notes Oct, Type 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 with hyperglycemia (ICD-10 - E11.65) 1. Uncontrolled, a Type 2 diabetes with A1c of 7.5% 2. Blood glucose levels above target. According to MeetMoi 2 cgm download 10/08/21-10/21/21: Avg glucose 197. [...] (hypertension) (ICD-10 - I10) On jonathan. Oct, assisted current use of insulin (ICD-10 - Z79.4) Oct, Mixed hyperlipidemia (ICD-10 - E78.2) 11/2020 LDL 97.6 Triglycerides 347, on fenofibrate, Recommend moderate intensity statin f/u with pcp for further recommendation. Oct, BMI 40.0-44.9, adult (ICD-10 - Z68.41) 4 pound weight loss from last visit, continue with weight loss efforts Oct, Vitamin B 12 deficiency (ICD-10 - E53.8) [facility] Other 04-27-2022 Evaluation note* Encounter Date Diagnosis [...] days. Jul, Hematuria, unspecified (ICD-10 - R31.9) [facility] Other 03-15-2022 Evaluation note* Encounter Date Diagnosis Assessment Notes Treatment Notes Treatment Clinical Notes Jun, Type 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 with hyperglycemia (ICD-10 - E11.65) 1. Uncontrolled, a Type 2 diabetes with A1c of 7.4% 2. Blood glucose levels above target. According to MeetMoi 2 cgm download 06/16/21-06/29/21: Avg glucose 172. [...] (hypertension) (ICD-10 - I10) On jonathan. Jun, assistant terminal manager current use of insulin (ICD-10 - Z79.4) Jun, Mixed hyperlipidemia (ICD-10 - E78.2) 11/2020 LDL 97.6 Triglycerides 347, on fenofibrate, Recommend moderate intensity statin f/u with pcp for further recommendation. Jun, BMI 40.0-44.9, adult (ICD-10 - Z68.41) see above [facility] Other 01-18-2022 Evaluation note* Encounter Date Diagnosis Assessment Notes Treatment Notes Treatment Clinical Notes Apr, Type 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 with hyperglycemia (ICD-10 - E11.65) [facility] Other 12-08-2021 Evaluation note* Encounter Date Diagnosis Assessment Notes Treatment Notes Treatment Clinical Notes Mar, Type 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 with hyperglycemia (ICD-10 - E11.65) 1. Controlled, a Type 2 diabetes with A1c of 6.6% 2. Blood glucose levels improved from last visit. According to MeetMoi 2 cgm download 03/11/21-03/24/21: Avg glucose 162. >250- 1%, >180-29%, 70-180-70%, <70-0%, <54-0%. CV 22.5%. Reviewed download with pt. readings above target from missed meal dose or late meal dose. Discussed with pt trial lyumjev which he could take 5 minutes before meal up to 20 minutes after meal. He is agreeable, reviewed this would take [email or web address] He verbalizes understanding. Pt with history of [...] (hypertension) (ICD-10 - I10) On jonathan. Mar, assistant terminal manager current use of insulin (ICD-10 - Z79.4) Mar, Mixed hyperlipidemia (ICD-10 - E78.2) 11/2020 LDL 97.6 Triglycerides 347, on fenofibrate, Recommend moderate intensity statin. Mar, BMI 40.0-44.9, adult (ICD-10 - Z68.41) see above [facility] Other 09-22-2021 Evaluation note* Encounter Date Diagnosis Assessment Notes Treatment Notes Treatment Clinical Notes Dec, Type 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 with hyperglycemia (ICD-10 - E11.65) Erwin came in today for evaluation of his Shivani report after returning to work and continuing to use the device. Erwin is happy with the system and wants us to send a prescription to [facility] in [place]. Erwin's BG has averaged 163 for the [...] snack at MidNight. No further changes. 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 [facility] Other Evaluation + Plan [facility]Exec[facility] Evaluation noteNo InformationNort [employer] Other Evaluation noteNo assessment information available [facility] Work Phone: Evaluation note* Diagnosis Screening for genitourinary condition Screening for other and unspecified genitourinary condition [facility] Diagnosis Coronary artery disease involving [place] coronary artery of [place] heart, unspecified whether angina present- Primary History of non-ST elevation myocardial infarction (NSTEMI) Old myocardial infarction Hx of CABG Postsurgical aortocoronary bypass status Primary hypertension Unspecified essential hypertension Other hyperlipidemia [facility] Diagnosis Onset Date Resolution Status BMI 39.0-39.9,adult acute Dietary counseling and surveillance acute Mixed hyperlipidemia acute Vitamin B 12 deficiency acut e Chronic HFrEF (heart failure with reduced ejection fraction) acute Hypertension acute Ischemic cardiomyopathy acut e Paroxysmal atrial fibrillation acute Type 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 with diabetic polyneuropathy acute Type 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 with hyperglycemia acute [facility] Work Phone: Evaluation note* Diagnosis Pre-operative examination- Primary Preoperative examination, unspecified Primary hypertension Unspecified essential hypertension Hyperlipidemia, unspecified hyperlipidemia type Coronary artery disease involving coronary bypass graft of [place] heart without angina pectoris Chronic systolic CHF (congestive heart failure) (HCC) Chronic systolic heart failure Paroxysmal atrial fibrillation (HCC) Atrial fibrillation Gastroesophageal reflux disease, unspecified whether esophagitis present Type 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 with other specified complication, with long-term current use of insulin (HCC) Class 2 obesity due to excess calories without serious comorbidity with body mass index (BMI) of 39.0 to 39.9 in adult * Assessment & Plan Note - Kevin Goldsmith APRN.CNP - 07/27/2023 2:39 PM EDT Associated Problem(s): Class 2 obesity due to excess calories without serious comorbidity with bodymass index (BMI) of 39.0 to 39.9 in adult Body mass index is 39.29 kg/m * Assessment & Plan Note - Kevin Goldsmith APRN.CNP - 07/27/2023 2:37 PM EDT Associated Problem(s): Type 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, with long-term current use of insulin (HCC) Stable on Insulin glargine 60 units daily, Insulin aspart 25 units TID with meals, Farxiga 10 mg daily, and Metformin 500 mg TID. Patient holding Farxiga for upcoming surgery, last dose 07/25/23. Outside HgbA1C 01/04/22 - 6.6% PLAN: HgbA1C ordered. * Assessment & Plan Note - Kevin Goldsmith APRN.CNP - 07/27/2023 2:36 PM EDT Associated Problem(s): GERD (gastroesophageal reflux disease) Stable on Pantoprazole 40 mg daily. * Assessment & Plan Note - Kevin Goldsmith APRN.CNP - 07/27/2023 2:35 PM EDT Associated Problem(s): Paroxysmal atrial fibrillation (HCC) Hx of post-op atrial fibrillation, treated with amiodarone and converted back to NSR. Stable on Amiodarone 200 mg daily and Metoprolol 100 mg BID. * Assessment & Plan Note - Kevin Goldsmith APRN.CNP - 07/27/2023 2:32 PM EDT Associated Problem(s): Chronic systolic CHF (congestive heart failure) (HCC) Echo in Dec 2021 showed EF 35% Stable on Entresto 24-26 mg BID and Spironolactone 25 mg daily. Cardiology note 06/19/23 notes the following, Echo 03/30/22 ([facility]) - Global LV systolic function is difficult to assess but appears preserved, estimated ejection fraction is 55 to 60%, unable to accurately evaluate wall motion abnormalities. * Assessment & Plan Note - Kevin Goldsmith APRN.CNP - 07/27/2023 2:29 PM EDT Associated Problem(s): Coronary artery disease involving coronary bypass graft of [place] heart without angina pectoris CAD, hx of VA s/p CABG x 5 in Dec 2021. Patient had a pre-op evaluation with Cardiology, 06/19/[address] Colmenares. Per note, Perioperative Cardiac Risk Assessment: Mr. Caden Wills's Is to undergo circumcision surgery which is [...] Investigations, the patient is considered to be atLOW RISK for perioperative cardiac events (< 1% chance of , [place], CHF, malignant ventricular arrhythmias or high grade AV block) and I would recommend proceeding ahead with the circumcision surgery as planned. Patient denies recent chest pain, palpitations, shortness of breath. Endorses good functional capacity (5.5+ METs). * Assessment & Plan Note - Kevin Goldsmith APRN.CNP - 07/27/2023 2:29 PM EDT Associated Problem(s): Hyperlipidemia Stable on Ezetimibe 10 mg daily. * Assessment & Plan Note - Kevin Goldsmith APRN.CNP - 07/27/2023 2:28 PM EDT Associated Problem(s): Primary hypertension Stable on Amiodarone 200 mg daily, Metoprolol 100 mg BID, and Spironolactone 25 mg daily. BP today 114/66. [facility] [facility]* Diagnosis Acquired buried penis- Primary Other specified disorder of penis [facility] Acquired buried penis- Primary Other specified disorder of penis Scarring of penis Other specified disorder of penis [facility] Screening for genitourinary condition Screening for other and unspecified genitourinary condition [facility] Diagnosis Onset Date Resolution Status Chronic HFrEF (heart failure with reduced ejection fraction) acute Hypertension acute Ischemic cardiomyopathy acut e Mixed hyperlipidemia acute Type 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 wit h diabetic polyneuropathy acute Type 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 with hyperglycemia acute Screening PSA (prostate specific antigen) noneactive Wellness examination noneact dena [facility] Work Phone: Evaluation note* Diagnosis Onset Date Resolution Status Chronic HFrEF (heart failure with reduced ejection fraction) acute Hypertension acute Ischemic cardiomyopathy acut e Mixed hyperlipidemia acute Type 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 wit h diabetic polyneuropathy acute Type 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 with hyperglycemia acute Screening PSA (prostate specific antigen) noneactive Wellness examination noneact dena BMI 39.0-39.9,adult acute Dietary counseling and surveillance acute Mixed hyperlipidemia acute Vitamin B 12 deficiency acin e [facility] Work Phone: History general Narrative - Reported* Type Description Date Medical History diabetes mellitus Medical History hypertension Medical History pancreatitis Medical History HLP Medical History R foot ulcer Surgical History heart stent Surgical History RIGHT FOOT SECOND TOE AMPUTATED 07/03 Hospitalization History see above Hospitalization History Gastric issues 03/2017 [facility] Other history general Narrative - Reported* Type Description Date Medical History diabetes mellitus Medical History hypertension Medical History pancreatitis Medical History HLP Medical History R foot ulcer Surgical History heart stent Surgical History RIGHT FOOT SECOND TOE AMPUTATED 07/03 Surgical History 5 Bypass surgery [facility] 12/31/2021 Hospitalization History see above Hospitalization History Gastric [facility] Other history general Narrative - Reported* Type Description Date Medical History Heart failure with preserved eje ction fraction Medical History Acute prostatitis Medical History ASHD (arteriosclerotic heart dis ease) Medical History Balanitis Medical History Transient atrial fibrillation Medical History Unspecified open wou nd of unspecified toe(s) with damage to nail, subsequent encounter Medical History Type 2 diabetes david itus with diabetic polyneuropathy, unspecified whether residential insulin use Medical History assisted current use of insulin Medical History S/P [...] 07/03 Surgical History 5 [facility]pass [facility], CABG.4-5 [facility] 12/31/2021 Surgical History [facility] PTCA/STENT LAD 2007 Surgical History COLONOSCOPY Hospitalization History see above Hospitalization History Gastric issues 03/2017 Hospitalization History [facility] 12/2021 [facility] Other Hospital course Narrative No data available for this section [facility] Progress note No data available for this section [facility] Rebjfi for referral (narrative) Referred by: ROXANN BARR, Antonia Sharma [facility] Rercba for referral (narrative)* Outpatient Procedure (Routine) - Closed Specialty Diagnoses / Procedures Referred By Elda santizo [facility] Diagnoses Coronary artery disease involving [place] coronary artery of [place] heart, unspecified whether angina present History of non-ST elevation myocardial infarction (NSTEMI) Hx of CABG Primary hypertension Other hyperlipidemia Procedures ECG COMPLETE ECG ROUTINE ECG W/LEAST 12 LDS W/I&R Ligia Colmenares MD [address] [place] [address] [facility] [address] [place] [id number] Referral ID Status Reason Start Date Expiration Date V isits Requested Visits Authorized [id number] Closed Auto-Generate d Referral 06/16/2023 06/15/2024 1 1 [facility] Chief Complaint and Reason for Visit [...] polyneuropathy Type 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 with hyperglycemia Chief Complaint 6 month follow up Reason for Visit Chronic HFrEF (heart failure with reduced ejection fraction) Hypertension Ischemic cardiomyopathy Mixed hyperlipidemia Type 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 with diabetic polyneuropathy Type 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 with hyperglycemia Screening PSA (prostate specific antigen) Wellness examination Chief Complaint 6 month follow up 3 month follow up Reason for Visit Chronic HFrEF (heart failure with reduced ejection fraction) Hypertension Ischemic cardiomyopathy Mixed hyperlipidemia Type 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 with diabetic polyneuropathy Type 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 with hyperglycemia Screening PSA (prostate specific antigen) Wellness examination BMI 39.0-39.9,adult Dietary counseling and surveillance Mixed hyperlipidemia Vitamin B 12 deficiency Advance Directives No Advanced Directives Records Found [...] (L02.511) Referral Organization [facility] Yola Sears C haseeb Referring Provider First Name Fahad Referring Provider Last Name Yola Referring Provider Specialty Internal Me dicine Referred Organization [facility] Ortho pedevan Referred Provider Yarelis Santacruz Referred Address [address],[place],[address] Referred Provider Specialty Orthopedic S urgery Referral [...] Diagnosis 1 Erectile dysfunction (N52.9) Referral Organization [facility] Referring Provider First Name Yamilex Referring Provider Last Name Bull Referring Provider Specialty Nurse Pract itioner Referred Organization Unknown Facility Referred Provider Antonia Buhs Referred Provider Specialty Urology Referral Priority Routine Referral Appointment Date 2023-03-22 General Notes Tracie Alvarado 11/15 08:20:19 AM >Spoke to Poonam and patient scheduled for [place] office on 03/22/23 at 11am at [address] [place] [address] [address] in [employer] [facility]. Tracie Alvarado 11/28/2022 09:35:22 AM >Text message sent to patient requesting he call me for Referral details. Tracie Alvarado 11/28/2022 12:00:13 PM >Patient returns my call and is informed of appt. Reason Left great toe wound from new work boots - appt needs to be after 2pm Diagnosis 1 Type 2 diabetes david itus with hyperglycemia (E11.65) Referral Organization [facility] Referring Provider First Name Michelledelano Referring Provider Last Name Palomo Referring Provider Specialty Nurse Melani itjf Referred Organization Unknown Facility Referred Provider Damian Mathur Referred Provider Specialty Podiatry - S urgical Chiropody Referral Priority Routine Referral Appointment Date 2022-08-24 General Notes Tracie Alvarado 11/2022 04:17:56 PM >Spoke with Mellissa. Patient scheduled for 08/24/22 at 2pm. Patient informed. 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- Other Reason Comments Cardiac Clearance and new patient Specialty Diagnoses / Procedures Referred By Elda santizo [facility] Diagnoses Coronary artery disease involving [place] coronary artery of [place] heart, unspecified whether angina present History of non-ST elevation myocardial infarction (NSTEMI) Hx of CABG Primary hypertension Other hyperlipidemia Procedures ECG COMPLETE ECG ROUTINE ECG W/LEAST 12 LDS W/I&R Ligia Colmenares MD [address] [place] [address] [facility] [place] [address] Referral ID Status Reason Start Date Expiration Date V isits Requested Visits Authorized [id number] Closed Auto-Generate d Referral 06/16/2023 06/15/2024 1 1 Reason Comments Pre-Op Visit Reason Comments Post-Op Visit Care Teams (unrecognized sec tion and content) Team Status: Active Member Role Status Dates Fahad Aceves DO Primary Care Provider Active Team Status: Inactive Member Role Status Dates Fahad Aceves DO Primary Care Provide r, Attending Provider Active Start: October 18, 2023 End: October 18, 2023 Team Status: Inactive Member Role Status Dates Fahad Aceves DO Primary Care Provider Active Start: November 01, 2023 End: November 01, 2023 Yamilex Foster APRN Attending Provider Active Start: November 01, 2023 End: November 01, 2023 Team Status: Active Member Role Status Dates Fahad Aceves DO Primary Care Provide r, Attending Provider Active Start: July 27, 2023 Team Status: Inactive Member Role Status [...] Active Yamilex Foster APRN Attending Provider Active 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 Start Date End Date Antonia Bush [address] [place] [address] Referring Urology 03/25/23 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 Start Date End Date Antonia Bush [address] [place] [address] Referring Urology 03/25/23 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 Start Date End Date Antonia Bush [address] [facility] [address] [place] [address] Referring Urology 03/25/23 Team Status: Active Member [...] July 11, 2023 End: July 11, 2023 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 [address] PCP - General Internal Medicine 07/18/23 Antonia Bush MD [address] [facility] [address] [place] [address] Referring Urology 03/25/23 Goals (unrecognized section and content) Goals may be documented in a n alternate section (unrecognized sect ion and content) No Status Records FoundNo Status Records FoundNo Status Records FoundNo Status Records FoundNo Status Records Found INFORMATION SOURCE (unrecogn ized section and content) DATE CREATED AUTHOR 08/31/2022 [facility] DATE CREATED AUTHOR AUTHOR'S ORGANIZ ATION 06/01/2023 [facility] DATE CREATED AUTHOR AUTHOR'S ORGANIZ ATION 09/19/2023 [facility] DATE CREATED AUTHOR AUTHOR'S ORGANIZ ATION 01/16/2024 [facility] DATE CREATED AUTHOR AUTHOR'S ORGANIZ ATION 01/16/2024 [facility] Source Comments (unrecognize d section and content) In the event this informatio n is protected by the Federal Confidentiality of Alcohol and Drug Abuse Patient Records regulations: The Federal rules restrict any use of the information to criminally investigate or prosecute any alcohol or drug abuse patient.[facility] the event this information is protected by the Federal Confidentiality of Alcohol and Drug Abuse Patient Records regulations: The Federal rules restrict any use of the information to criminally investigate or prosecute any alcohol or drug abuse patient.[facility] Center[facility] the event this information is protected by the Federal Confidentiality of Alcohol and Drug Abuse Patient Records regulations: The Federal rules restrict any use of the information to criminally investigate or prosecute any alcohol or drug abuse patient.[facility] Center[facility] the event this information is protected by the Federal Confidentiality of Alcohol and Drug Abuse Patient Records regulations: The Federal rules restrict any use of the information to criminally investigate or prosecute any alcohol or drug abuse patient.[facility] Center[facility] the event this information is protected by the Federal Confidentiality of Alcohol and Drug Abuse Patient Records regulations: The Federal rules restrict any use of the information to criminally investigate or prosecute any alcohol or drug abuse patient.[facility] Center[facility] the event this information is protected by the Federal Confidentiality of Alcohol and Drug Abuse Patient Records regulations: The Federal rules restrict any use of the information to criminally investigate or prosecute any alcohol or drug abuse patient.[facility] Center[facility] the event this information is protected by the Federal Confidentiality of Alcohol and Drug Abuse Patient Records regulations: The Federal rules restrict any use of the information to criminally investigate or prosecute any alcohol or drug abuse patient.[facility] Center[facility] the event this information is protected by the Federal Confidentiality of Alcohol and Drug Abuse Patient Records regulations: The Federal rules restrict any use of the information to criminally investigate or prosecute any alcohol or drug abuse patient.[facility] Center[facility] the event this information is protected by the Federal Confidentiality of Alcohol and Drug Abuse Patient Records regulations: The Federal rules restrict any use of the information to criminally investigate or prosecute any alcohol or drug abuse patient.[facility] CenterIn the event this information is protected by the Federal Confidentiality of Alcohol and Drug Abuse Patient Records regulations: The Federal rules restrict any use of the information to criminally investigate or prosecute any alcohol or drug abuse patient.[facility] Center[facility] the event this information is protected by the Federal Confidentiality of Alcohol and Drug Abuse Patient Records regulations: The Federal rules restrict any use of the information to criminally investigate or prosecute any alcohol or drug abuse patient.[facility] FOR RECORDS PERTAINING TO PATIENTS WHO ARE [...] BE BASED ON THE PRIMARY CLINICAL RECORDS. [facility]. provides no warranty or guarantee of the accuracy or completeness of information in this document.
--- OUTSIDE RECORDS SUMMARY | 2024-01-20 11:14 | XMS_ITS | CCD ---
Author Organization [facility] Care Team Providers Care Air Press Operator Name Role Phone Yamilex Foster Unavailable Celestina Greene Unavailable DO Fahad Aceves Primary Care Provider JAKE Foster Attending Provider [phone] FAHAD ACEVES Primary [...] Unavailable DO Fahad Aceves Primary Care Provider [phone] JAKE Foster Attending Provider Yamilex Foster Attending Unavailable Yamilex Foster Admitting Unavailable Fahad Aceves Primary Care Unavailable Fahad Aceves DO Primary Care Provider Antonia Bush MD Unavailable Fahad Aceves DO Primary Care Provider YAMILEX FOSTER Referring Unavailable Antonia BUSH Attending Unavailable FAHAD ACEVES Primary Care Unavailable FAHAD ACEVES Primary Care Unavailable LIGIA COLMENARES M.D. Attending Unavailable DARRIAN Vegas, LIGIA Referring Unavailable JAIN ALBERTO Attending UnavailANTONIA Peter Referring Unavailable JIAN ALBERTO Attending UnavailGIOVANNI Carrasquillo Referring Unavailable FAHAD ACEVES Primary Care Unavailable GIOVANNI MULLIGAN Attending Unavailable FAHAD ACEEVS Primary Care Unavailable YOLA, FAHAD Torres Primary Care Unavailable JIAN ALBERTO Admitting UnavailJIAN Omalley Attending Unavailabl e MOUKASIMBA BLAKE Attending Unavailable Allergies Allergy Classification Reported Allergen(s) Allergy Type Date of Onset Reaction(s) Facility (20 sources) empagliflozin Drug Allergy [facility] Architizer Other (20 sources) icosapent ethyl Drug Allergy n/v [email or web address] Other (1 source) empagliflozin Drug Allergy [facility] (1 source) icosapent ethyl Drug Allergy 4 [facility] Medications Current Medications Medication Drug Class(es) [...] on above: Take 1 capsule by mo [facility] two times a day. 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] Onset: 01-06-2022 [...] sources) Long-term current use of insulin; 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: [[facility] (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] Episodic Other aftercare (1 source) Long-term current use of anticoagulant; 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: [[facility] (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 of anticoagulants] Onset: 03-22-2023 Episodic [...] Onset: 12-31-2021 Episodic Other aftercare (9 sources) [employer] (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; 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: [ASSISTED CURRENT USE OF INSULIN] Onset: 03-24-2021 Resolved: 10-21-2021 Episodic Other aftercare (1 source) [employer] (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 of oral hypoglycemic drugs; 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: [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] Onset: 01-06-2022 Episodic [...] on: 01/16/2024 12:14 PM Modules accepted: Orders [facility] 29 Addended by: MARTIN MCCLAIN on: 01/16/2024 10:44 AM Modules accepted: Orders [facility] 01-15-2024 CHUYN Telephone (UROCARMEN) CADEN WILLS ([id number]) 1960 M Date Time Provider Department 01/15/24 JADA WILKINS During your visit today, we recorded the following information about you: Jada Wilkins APRN.CHUY 01/15/2024 2:53 PM Signed ----- Message from Kourtney Sena sent at 01/15/2024 9:13 AM EDT ----- Regarding: Refill medication [facility] [place] [facility]ed over a refill request for Cephalexin - it is not on his current med list. Please advise and thank you, Jada Mccarthy APRN.CNP 01/15/2024 2:54 PM Signed See previous telephone encounter from 10/04/2023. Keflex has been on auto refill, and [facility] has already been asked to cancel this request. Jada Wilkins APRN.WOOD FLOUR MILLER Allergies As of Date: 01/15/2024 (No Known [...] Take 20 mEq by mouth. - omega 3-cet-dqh-fish oil (FISH OIL) 100-160-1,000 mg cap Take [...] Encounter Status:Closed by JADA WILKINS on 01/15/24 [facility] Documentationon 01-15-2024 Documentation [id number] Caden Wills 1960 M Date Provider Department Center 01/15/2024 CAROLINE MARRERO [facility] CARD TX HeartVAS Family History Problem Relation Age of Onset Coronary artery disease Father Family Status - Relation Status Age at Father Reason for Visit and Comments: PharmD Cardiology Consult [Other] [facility] 10-04-2023 CNPN Telephone (UROZANDERN) CADEN WILLS ([id number]) 1960 M Date Time Provider Department 10/04/23 JADA WILKINS During your visit today, we recorded the following information about you: Jada Wilkins APRN.[employer] 10/04/2023 4:18 PM Signed ----- Message from [...] Alberto in the fall. Left voicemail at [facility] in [place], advising that Caden Wills does NOT need refill on Keflex and asking them to take it off auto refill. Jada Wilkins APRN.[employer] Allergies As of Date: 10/04/2023 (No Known [...] Take 20 mEq by mouth. - omega 9-qlv-yzr-fish oil (FISH OIL) 100-160-1,000 mg cap Take [...] Encounter Status:Closed by JADA WILKINS on 10/04/23 [facility] Consultation Noteon 09-18-19 Consultation Note [id number] [facility] CNOVon 09-13-2023 CNOV Office Visit (UROZANDERN ) CADEN WILLS ([id number]) 1960 M Date Time Provider Department 09/13/23 [...] tablet Take 20 mEq by mouth. omega 5-rra-pji-fish oil (FISH OIL) 100-160-1,000 mg cap Take [...] clinic in the fall for recheck. Jian Albreto MD Referring Provider: GIOVANNI MULLIGAN [[id number]] Allergies As of Date: 09/13/2023 (No Known [...] U-300 SOLOST (more content not included)... Normal [facility] CNOVon 08-04-2023 CNOV Office Visit (UROLMN ) CADEN WILLS ([id number]) 1960 M Date Time Provider Department 08/04/23 [...] Take 20 mEq by mouth. - omega 9-glz-cyw-fish oil (FISH OIL) 100-160-1,000 mg cap Take [...] Status:Closed by GIOVANNI MULLIGAN on 08/04/23 Normal [facility] Basic metabolic 2000 panelon 07-29-2023 Anion gap [Moles/Vol] 14 mmol/L Normal 9-18 [facility] Comment on above: Order Comment: Speci men Type: BLOOD SPECIMEN [facility]ing Facility[facility] Address: [address] [place] [address] Performed By: #### 2 4321-2 #### [facility] CLIA [id number] [address] [place] [address] [place] Calcium [Mass/Vol] 8.9 mg/dL Normal 8.5-10.2 [facility] Comment on above: Order Comment: Speci men Type: BLOOD SPECIMEN Ordering Facility: [facility] Address: [address] [place] [address] Performed By: #### 2 4321-2 #### [facility] CLIA [id number] [address] [place] [address] [place] Chloride [Moles/Vol] 102 mmol/L Normal 97-105 [facility] Comment on above: Order Comment: Speci men Type: BLOOD SPECIMEN Ordering Facility: [facility] Address: [address] [place] [address] Performed By: #### 2 4321-2 #### [facility] CLIA [id number] [address] [place] [address] [place] CO2 [Moles/Vol] 23 mmol/L Normal 22-30 [facility] Comment on above: Order Comment: Speci men Type: BLOOD SPECIMEN Ordering Facility: [facility] Address: [address] [place] [address] Performed By: #### 2 4321-2 #### [facility] IA [id number] [address] [place] [address] [place] Creatinine [Mass/Vol] 0.71 mg/dL Low 0.73-1.22 [facility] Comment on above: Order Comment: Speci men Type: BLOOD SPECIMEN Ordering Facility: [facility] Address: [address] [place] [address] Performed By: #### 2 4321-2 #### [facility] IA [id number] [address] [place] [address] [place] Creatinine and Glomerular filtration rate.predicted panel (S/P/Bld) 104 mL/min/1.73m??? Normal >=60 [facility] Comment on above: Order Comment: Speci men Type: BLOOD SPECIMEN Ordering Facility: [facility] Address: [address] [place] [address] Result Comment: Leticia mated Glomerular Filtration Rate [...] GFR. Performed By: #### 2 4321-2 #### [facility] CLIA [id number] [address] [place] [address] [place] Glucose [Mass/Vol] 173 mg/dL High 74-99 [facility] Comment on above: Order Comment: Speci men Type: BLOOD SPECIMEN Ordering Facility: [facility] Address: [address] [id number] Result Comment: The [place] Diabetes Association (ADA) provides guidance for cutoff [...] Standards of Medical Care in Diabetes 2016, [place] [employer]. Diabetes Care. 2016.39(Suppl 1). Performed By: #### 2 4321-2 #### [facility] CLIA [id number] [address] [place] [address] [place] Potassium [Moles/Vol] 4.3 mmol/L Normal 3.7-5.1 [facility] Comment on above: Order Comment: Speci men Type: BLOOD SPECIMEN Order[facility] Facility[facility] Address: [address] [place] [address] Performed By: #### 2 4321-2 #### [facility] CLIA [id number] [address] [place] [address] [place] Sodium [Moles/Vol] 139 mmol/L Normal 136-144 [facility] Comment on above: Order Comment: Speci men Type: BLOOD SPECIMEN Ordering Facility[facility] Address: [address] [phone] Performed By: #### 2 4321-2 #### [facility] CLIA [id number] [address] [place] [address] [place] Urea nitrogen [Mass/Vol] 18 mg/dL Normal 9-24 [facility] Comment on above: Order Comment: Speci men Type: BLOOD SPECIMEN Order[facility] Address: [address] [phone] Performed By: #### 2 4321-2 #### [facility] CLIA [id number] [address] [place] [address] [place] CBC panel Auto (Bld)on 07-28 Erythrocyte distribution width (RBC) [Ratio] 15.8 % High 11.5-15.0 [facility] Comment on above: Order Comment: Speci men Type: BLOOD SPECIMEN Ordering Facility: [facility] Address: [address] [place] [address] Performed By: #### 5 8410-2 #### [facility] CLIA [id number] [address] [place] [address] [place] Hematocrit (Bld) [Volume fraction] 44.7 % Normal 39.0-51.0 [facility] Comment on above: Order Comment: Speci men Type: BLOOD SPECIMEN Ordering Facility: [facility] Address: [address] [place] [address] Performed By: #### 5 8410-2 #### [facility] CLIA [id number] [address] [place] [address] [place] Hemoglobin (Bld) [Mass/Vol] 14.5 g/dL Normal 13.0-17.0 [facility] Comment on above: Order Comment: Speci men Type: BLOOD SPECIMEN Ordering Facility[facility] Address: [address] [place] [address] Performed By: #### 5 8410-2 #### [facility] CLIA [id number] [address] [place] [address] [place] MCH (RBC) [Entitic mass] 27.4 pg Normal 26.0-34.0 [facility] Comment on above: Order Comment: Speci men Type: BLOOD SPECIMEN Ordering Facility[facility] Address: [address] [place] [address] Performed By: #### 5 8410-2 #### [facility] CLIA [id number] [address] [place] [address] [place] MCHC (RBC) [Mass/Vol] 32.4 g/dL Normal 30.5-36.0 [facility] Comment on above: Order Comment: Speci men Type: BLOOD SPECIMEN Ordering Facility[facility] Address: [address] [place] [address] Performed By: #### 5 8410-2 #### [facility] CLIA [id number] [address] [place] [address] [place] MCV (RBC) [Entitic vol] 84.3 fL Normal 80.0-100.0 [facility] Comment on above: Order Comment: Speci men Type: BLOOD SPECIMEN Ordering [facility] Address: [address] [place] [address] Performed By: #### 5 8410-2 #### [facility] CLIA [id number] [address] [place] [address] [place] Nucleated RBC (Bld) [#/Vol] 10*3/uL Normal <0.01 [facility] Comment on above: Order Comment: Speci men Type: BLOOD SPECIMEN Ordering [facility] Address: [address] [place] [address] Performed By: #### 5 8410-2 #### [facility] CLIA [id number] [address] [place] [address] [place] Platelet mean volume (Bld) [Entitic vol] 9.6 fL Normal 9.0-12.7 [facility] Comment on above: Order Comment: Speci men Type: BLOOD SPECIMEN Order[facility] Address: [address] [place] [address] Performed By: #### 5 8410-2 #### [facility] CLIA [id number] [address] [place] [address] [place] Platelets (Bld) [#/Vol] 268 10*3/uL Normal 150-400 [facility] Comment on above: Order Comment: Speci men Type: BLOOD SPECIMEN Order[facility] Address: [address] [place] [address] Performed By: #### 5 8410-2 #### [facility] CLIA [id number] [address] [place] [address] [place] RBC (Bld) [#/Vol] 5.30 10*6/uL Normal 4.20-6.00 [facility] Comment on above: Order Comment: Speci men Type: BLOOD SPECIMEN Order[facility] Address: [address] [place] [address] Performed By: #### 5 8410-2 #### [facility] CLIA [id number] [address] [place] [address] [place] WBC (Bld) [#/Vol] 13.43 10*3/uL High 3.70-11.00 [facility] Comment on above: Order Comment: Speci men Type: BLOOD SPECIMEN Order[facility] Address: [address] [place] [address] Performed By: #### 5 8410-2 #### [facility] CLIA [id number] [address] [place] [address] [place] CNDSon 07-29-2023 CNDS HNO ID: [id number] Author: JIAN ALBERTO MD Service: Urology Author Type: Resident Type: Discharge Summary Filed: 07/29/2023 12:28 Note Text: Attestation signed by Jian Alberto MD at 07/29/2023 12:28 PM Discussed with resident, agree with plan Jian Alberto M.D. 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) Operations During Hospitalization: CYSTOSCOPY FLEXIBLE: 01595 (CPT?) SCROTOPLASTY V-Y: 37554 (CPT?) EXCISION, EXCESSIVE SKIN AND SUBCUTANEOUS TISSUE, OTHER AREA prepubic lipectomy with fixation of skin to pubic region: 45256 (CPT?) EXCISION LYSIS PENILE POST-CIRCUMCISION ADHESIONS: 70906 (CPT?) Procedures Performed While Hospitalized: Intubation Reason [...] OiL 100-160-1,000 mg Cap Generic drug: omega 9-dgm-uxb-fish oil insulin aspart U-100 100 unit/mL Commonly [...] These [id number] [place] [address] - [address] [facility] - [phone] [facility] [address] [facility] [address] acetaminophen 325 mg tablet cephALEXin 500 mg capsule docusate sodium 100 mg capsule oxyCODONE IR 5 mg immediate release tablet Future Appointments: No future appointments. Electronically STEPHANIE (more content not included)... Normal [facility] ANES POSTPROC EVALon 024 ANES POSTPROC EVAL HNO ID: [id number] Author: CHILANGO CURIEL MD Service: ? Author Type: Anesthesiologist Type: Anesthesia Postprocedure Evaluation Filed: 07/28/2023 13:45 Note Text: POST ANESTHESIA EVALUATION NOTE : 1960 Procedure Summary Date: 07/28/23 Room / Location: [address] [facility] Anesthesia Start: 0950 Anesthesia Stop: [...] July 28, 2023 TIME: 1:45 PM CSN: [id number] Normal [facility] ANES PRE-OPon 07-28-2023 ANES PRE-OP HNO ID: [id number] Author: CHILANGO CURIEL MD Service: ? Author [...] artery disease involving coronary bypass graft of wiyot heart without angina pectoris (+) Paroxysmal atrial [...] and consent discussed: yes. Patient / Responsible [employer] agrees to proceed: yes Patient / [...] Take 20 mEq by mouth. - omega 0-smi-dvd-fish oil (FISH OIL) 100-160-1,000 mg cap Take 1,000 mg by mouth. I have interviewed and examined the patient. I have reviewed the medical record and/or the pre-anesthesia evaluation, pertinent labs, and test results. This contains updated information obtained within 48 hours of Surgery/Procedure. SIGNATURE: Chilango Curiel MD PATIENT NAME: Caden Wills DATE: July 28, 2023 TIME: 9:53 AM CSN: [id number] Normal [facility] BRIEF OP NOTon 07-28-2023 BRIEF OP NOT HNO ID: [id number] Author: JUICE GEE MD Service: Urology Author Type: Resident Type: Brief Op Note Filed: 07/28/2023 12:38 Note Text: BRIEF OPERATIVE / PROCEDURE NOTE LOG ID: [id number] SURGERY/PROCEDURE DATE: 07/28/2023 INCISION/PROCEDURE START TIME: 10:32 AM INCISION CLOSE/PROCEDURE END TIME: 12:25 PM SURGEON(S)/PROCEDURAL IST(S) AND CLASSROOM MONITOR(S): Surgeon(s) and Role: * Jian Alberto MD - Primary * Juice Gee MD - Resident - Assisting No [...] July 28, 2023 TIME: 12:36 PM Normal [facility] Basic metabolic 2000 panelon 07-28-2023 Anion gap [Moles/Vol] 13 mmol/L Normal 9-18 [facility] Comment on above: Order Comment: Speci men Type: BLOOD SPECIMEN [facility] Address: [address] [place] [address] Performed By: #### 5 8410-2 #### [facility] CLIA [id number] [address] [place] [address] [place] Calcium [Mass/Vol] 9.3 mg/dL Normal 8.5-10.2 [facility] Comment on above: Order Comment: Speci men Type: BLOOD SPECIMEN [facility] Address: [address] [place] [address] Performed By: #### 5 8410-2 #### [facility] CLIA [id number] [address] [place] [address] [place] Chloride [Moles/Vol] 104 mmol/L Normal 97-105 [facility] Comment on above: Order Comment: Speci men Type: BLOOD SPECIMEN [facility] Address: [address] [place] [address] Performed By: #### 5 8410-2 #### [facility] CLIA [id number] [address] [place] [address] [place] CO2 [Moles/Vol] 23 mmol/L Normal 22-30 [facility] Comment on above: Order Comment: Speci men Type: BLOOD SPECIMEN [facility] Address: [address] [place] [address] Performed By: #### 5 8410-2 #### [facility] CLIA [id number] [address] [place], [place] [id number] [place] Creatinine [Mass/Vol] 0.75 mg/dL Normal 0.73-1.22 [facility] Comment on above: Order Comment: Karina villarreal Type: BLOOD SPECIMEN Order[facility] Address: [address] [place] [address] Performed By: #### 5 8410-2 #### [facility] CLIA [id number] [address] [place] [address] [place] Creatinine and Glomerular filtration rate.predicted panel (S/P/Bld) 103 mL/min/1.73m??? Normal >=60 [facility] Comment on above: Order Comment: Karina villarreal Type: BLOOD SPECIMEN [facility] Address: [address] [place] [address] Result Comment: Leticia mated Glomerular Filtration Rate [...] GFR. Performed By: #### 5 8410-2 #### [facility] CLIA [id number] [address] [place] [address] [place] Glucose [Mass/Vol] 182 mg/dL High 74-99 [facility] Comment on above: Order Comment: Karina villarreal Type: BLOOD SPECIMEN [facility] Address: [address] [place] [address] Result Comment: The [place] Diabetes Association (ADA) provides guidance for cutoff [...] Standards of Medical Care in Diabetes 2016, [place] [employer]. Diabetes Care. 2016.39(Suppl 1). Performed By: #### 5 8410-2 #### [facility] CLIA [id number] [address] [place] [address] [place] Potassium [Moles/Vol] 4.7 mmol/L Normal 3.7-5.1 [facility] Comment on above: Order Comment: Speci men Type: BLOOD SPECIMEN [facility] Address: [address] [place] [address] Performed By: #### 5 8410-2 #### [facility] CLIA [id number] [address] [place] [address] [place] Sodium [Moles/Vol] 140 mmol/L Normal 136-144 [facility] Comment on above: Order Comment: Speci men Type: BLOOD SPECIMEN [facility] Address: [address] [place] [address] Performed By: #### 5 8410-2 #### [facility] CLIA [id number] [address] [place] [address] [place] Urea nitrogen [Mass/Vol] 16 mg/dL Normal 9-24 [facility] Comment on above: Order Comment: Speci men Type: BLOOD SPECIMEN [facility] Address: [address] [place] [address] Performed By: #### 5 8410-2 #### [facility] CLIA [id number] [address] [place] [address] [place] CBC panel Auto (Bld)on 07-27 Erythrocyte distribution width (RBC) [Ratio] 17.2 % High 11.5-15.0 [facility] Comment on above: Order Comment: Speci men Type: BLOOD SPECIMEN [facility] Address: [address] [place] [address] Performed By: #### 5 8410-2 #### [facility] CLIA [id number] [address] [place] [address] [place] Hematocrit (Bld) [Volume fraction] 50.7 % Normal 39.0-51.0 [facility] Comment on above: Order Comment: Speci men Type: BLOOD SPECIMEN [facility] Address: [address] [place] [address] Performed By: #### 5 8410-2 #### [facility] CLIA [id number] [address] [place] [address] [place] Hemoglobin (Bld) [Mass/Vol] 16.6 g/dL Normal 13.0-17.0 [facility] Comment on above: Order Comment: Speci men Type: BLOOD SPECIMEN Order[facility] Address: [address] [place] [address] Performed By: #### 5 8410-2 #### [facility] CLIA [id number] [address] [place] [address] [place] MCH (RBC) [Entitic mass] 27.7 pg Normal 26.0-34.0 [facility] Comment on above: Order Comment: Speci men Type: BLOOD SPECIMEN [facility] Address: [address] [place] [address] Performed By: #### 5 8410-2 #### [facility] CLIA [id number] [address] [place] [address] [place] MCHC (RBC) [Mass/Vol] 32.7 g/dL Normal 30.5-36.0 [facility] Comment on above: Order Comment: Speci men Type: BLOOD SPECIMEN [facility] Address: [address] [place] [address] Performed By: #### 5 8410-2 #### [facility] CLIA [id number] [address] [place] [address] [place] MCV (RBC) [Entitic vol] 84.6 fL Normal 80.0-100.0 [facility] Comment on above: Order Comment: Speci men Type: BLOOD SPECIMEN [facility] Address: [address] [place] [address] Performed By: #### 5 8410-2 #### [facility] CLIA [id number] [address] [place] [address] [place] Nucleated RBC (Bld) [#/Vol] 10*3/uL Normal <0.01 [facility] Comment on above: Order Comment: Speci men Type: BLOOD SPECIMEN [facility] Address: [address] [place] [address] Performed By: #### 5 8410-2 #### [facility] CLIA [id number] [address] [place] [address] [place] Platelet mean volume (Bld) [Entitic vol] 9.5 fL Normal 9.0-12.7 [facility] Comment on above: Order Comment: Speci men Type: BLOOD SPECIMEN [facility] Address: [address] [place] [address] Performed By: #### 5 8410-2 #### [facility] CLIA [id number] [address] [place] [address] [place] Platelets (Bld) [#/Vol] 284 10*3/uL Normal 150-400 [facility] Comment on above: Order Comment: Speci men Type: BLOOD SPECIMEN [facility] Address: [address] [place] [address] Performed By: #### 5 8410-2 #### [facility] CLIA [id number] [address] [place] [address] [place] RBC (Bld) [#/Vol] 5.99 10*6/uL Normal 4.20-6.00 [facility] [place] Comment on above: Order Comment: Speci men Type: BLOOD SPECIMEN Ordering Facility: [facility] Address: [address] [place] [address] Performed By: #### 5 8410-2 #### [facility] CLIA [id number] [address] [place] [address] [place] WBC (Bld) [#/Vol] 10.10 10*3/uL Normal 3.70-11.00 [facility] Comment on above: Order Comment: Speci men Type: BLOOD SPECIMEN [facility]ing Facility: [facility] Address: [address] [place] [address] Performed By: #### 5 8410-2 #### [facility] CLIA [id number] [address] [place] [address] [place] NURSING PROGon 07-28-2023 NURSING PROG HNO ID: [id number] Author: DAVID MCLAUGHLIN RN Service: ? Author Type: Registered Nurse Type: Nursing Progress Note Filed: 07/28/2023 14:53 Note Text: Admission/Transfer Note PATIENT NAME: Caden Wills Patient Location: [place] [address] [address] Room: [place] [address] Patient admitted from PACU via bed in stable condition. Actions taken: Patient oriented to room, call light function, prescribed activities, Patient rights, and Quiet at night. Patient belongings with patient. This note was completed by: David Mclaughlin Normal [facility] SURGICAL PATHOLOGYon 024 CASE REPORT Normal [facility] Comment on above: Order Comment: Speci men Type: BLOOD SPECIMEN [facility] Address: [address] [place] [address] Result Comment: Surg ical Pathology Report Case: [id number] Authorizing Provider: Jian Alberto MD Collected: 07/28/2023 10:42 AM Ordering Location: Admitting Received: 07/28/2023 12:18 PM Pathologist: Rajat Corbin MD Specimen: Soft Tissue (Not otherwise specified), penile skin Performed By: #### 5 8410-2 #### [facility] CLIA [id number] [address] [place] [address] [place] CLINICAL HISTORY Normal [facility] Comment on above: Order Comment: Speci men Type: BLOOD SPECIMEN [facility] Address: [address] [place] [address] Result Comment: 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] Performed By: #### 5 8410-2 #### [facility] CLIA [id number] [address] [place] [address] DIAGNOSIS COMMENT Normal [facility] Comment on above: Order Comment: Speci men Type: BLOOD SPECIMEN [facility] Address: [address] [place] [address] Result Comment: A PA S stain performed [...] been determined by the performing laboratory within [place] Pathology and Laboratory Medicine Department ([facility], [facility], [facility], [facility], [facility], [facility], [facility], or [facility]) in a manner consistent with CLIA requirements. One or more of these tests have not been cleared or approved by the FDA. [facility] is regulated under CLIA as qualified to perform high-complexity testing. These tests are used for clinical purposes. They should not be regarded as investigational or for research. Positive and negative controls stain appropriately. Performed By: #### 5 8410-2 #### [facility] CLIA [id number] [address] [place] [address] FINAL DIAGNOSIS Normal [facility] Comment on above: Order Comment: Speci men Type: BLOOD SPECIMEN [facility] Address: [address] [place] [address] Result Comment: Peni le skin, excision: - Benign skin with acute and chronic inflammation and rare fungal organisms morphologically consistent with Sydnee species. Performed By: #### 5 8410-2 #### [facility] CLIA [id number] [address] [place] [address] [place] FINAL PERFORMING LAB Normal [facility] Comment on above: Order Comment: Speci men Type: BLOOD SPECIMEN [facility] Address: [address] [place] [address] Result Comment: Diag nostic interpretation performed at [place], [address] [place] [address] CLIA# [id number] Circular Knitter Helper: Jose Power M.D. Performed By: #### 5 8410-2 #### [facility] CLIA [id number] [address] [place] [address] [place] GROSS DESCRIPTION Normal [facility] Comment on above: Order Comment: Speci men Type: BLOOD SPECIMEN [facility] Address: [address] [place] [address] Result Comment: A. S oft Tissue (Not otherwise specified) Received fresh labeled penile skin is a rectangular excision of pink skin measuring 4.5 x 2.5 x 0.3 cm. The skin surface is smooth and glistening without lesion. The resection margin is cauterized and roughened. The cut surfaces are soft and glistening. Dining Service Inspector sections are submitted in cassette A1. OLIVA July 28, 2023 12:39 PM Gross examination performed at [place], [address] [place] [address] CLIA# [id number] Performed By: #### 5 8410-2 #### [facility] CLIA [id number] [address] [place] [address] [place] CBC panel Auto (Bld)on 07-26 Erythrocyte distribution width (RBC) [Ratio] 16.1 % High 11.5-15.0 [facility] Comment on above: Order Comment: Speci men Type: BLOOD SPECIMEN [facility] Address: [address] [place] [address] Performed By: #### 5 8410-2 #### [facility] CLIA [id number] [address] [place] [address] [place] Hematocrit (Bld) [Volume fraction] 51.6 % High 39.0-51.0 [facility] Comment on above: Order Comment: Speci men Type: BLOOD SPECIMEN [facility] Address: [address] [place] [address] Performed By: #### 5 8410-2 #### [facility] CLIA [id number] [address] [place] [address] [place] Hemoglobin (Bld) [Mass/Vol] 16.6 g/dL Normal 13.0-17.0 [facility] Comment on above: Order Comment: Speci men Type: BLOOD SPECIMEN [facility] Address: [address] [place] [address] Performed By: #### 5 8410-2 #### [facility] CLIA [id number] [address] [place] [address] [place] MCH (RBC) [Entitic mass] 27.6 pg Normal 26.0-34.0 [facility] Comment on above: Order Comment: Speci men Type: BLOOD SPECIMEN [facility] Address: [address] [place] [address] Performed By: #### 5 8410-2 #### [facility] CLIA [id number] [address] [place] [address] [place] MCHC (RBC) [Mass/Vol] 32.2 g/dL Normal 30.5-36.0 [facility] Comment on above: Order Comment: Speci men Type: BLOOD SPECIMEN [facility] Address: [address] [place] [address] Performed By: #### 5 8410-2 #### [facility] CLIA [id number] [address] [place] [address] [place] MCV (RBC) [Entitic vol] 85.7 fL Normal 80.0-100.0 [facility] Comment on above: Order Comment: Speci men Type: BLOOD SPECIMEN [facility] Address: [address] [place] [address] Performed By: #### 5 8410-2 #### [facility] CLIA [id number] [address] [place] [address] [place] Nucleated RBC (Bld) [#/Vol] 10*3/uL Normal <0.01 [facility] Comment on above: Order Comment: Speci men Type: BLOOD SPECIMEN [facility] Address: [address] [place] [address] Performed By: #### 5 8410-2 #### [facility] CLIA [id number] [address] [place] [address] [place] Platelet mean volume (Bld) [Entitic vol] 10.3 fL Normal 9.0-12.7 [facility] Comment on above: Order Comment: Speci men Type: BLOOD SPECIMEN [facility] Address: [address] [place] [address] Performed By: #### 5 8410-2 #### [facility] CLIA [id number] [address] [place] [address] [place] Platelets (Bld) [#/Vol] 264 10*3/uL Normal 150-400 [facility] Comment on above: Order Comment: Speci men Type: BLOOD SPECIMEN [facility] Address: [address] [place] [address] Performed By: #### 5 8410-2 #### [facility] CLIA [id number] [address] [place] [address] [place] RBC (Bld) [#/Vol] 6.02 10*6/uL High 4.20-6.00 [facility] Comment on above: Order Comment: Speci men Type: BLOOD SPECIMEN [facility] Address: [address] [place] [address] Performed By: #### 5 8410-2 #### [facility] CLIA [id number] [address] [place] [address] [place] WBC (Bld) [#/Vol] 10.12 10*3/uL Normal 3.70-11.00 [facility] Comment on above: Order Comment: Speci men Type: BLOOD SPECIMEN [facility] Address: [address] [place] [address] Performed By: #### 5 8410-2 #### [facility] CLIA [id number] [address] [place] [address] [place] Comprehensive metabolic 2000 panelon 07-27-2023 Albumin [Mass/Vol] 4.3 g/dL Normal 3.9-4.9 [facility] Comment on above: Order Comment: Speci men Type: BLOOD SPECIMEN [facility] Address: [address] [place] [address] Performed By: #### 5 8410-2 #### [facility] CLIA [id number] [address] [place] [address] [place] ALP [Catalytic activity/Vol] 100 U/L Normal 38-113 [facility] Comment on above: Order Comment: Speci men Type: BLOOD SPECIMEN [facility] Address: [address] [place] [address] Performed By: #### 5 8410-2 #### [facility] CLIA [id number] [address] [place] [address] [place] ALT [Catalytic activity/Vol] 33 U/L Normal 10-54 [facility] Comment on above: Order Comment: Speci men Type: BLOOD SPECIMEN [facility] Address: [address] [place], [place] [address] Performed By: #### 5 8410-2 #### [facility] CLIA [id number] [address] [place] [address] [place] Anion gap [Moles/Vol] 14 mmol/L Normal 9-18 [facility] Comment on above: Order Comment: Speci men Type: BLOOD SPECIMEN [facility] Address: [address] [place] [address] Performed By: #### 5 8410-2 #### [facility] CLIA [id number] [address] [place] [address] [place] AST [Catalytic activity/Vol] 26 U/L Normal 14-40 [facility] Comment on above: Order Comment: Speci men Type: BLOOD SPECIMEN [facility] Address: [address] [place] [address] Performed By: #### 5 8410-2 #### [facility] CLIA [id number] [address] [place] [address] [place] Bilirubin [Mass/Vol] 0.2 mg/dL Normal 0.2-1.3 [facility] Comment on above: Order Comment: Speci men Type: BLOOD SPECIMEN [facility] Address: [address] [place] [address] Performed By: #### 5 8410-2 #### [facility] CLIA [id number] [address] [place] [address] [place] Calcium [Mass/Vol] 10.5 mg/dL High 8.5-10.2 [facility] Comment on above: Order Comment: Speci men Type: BLOOD SPECIMEN [facility] Address: [address] [place] [address] Performed By: #### 5 8410-2 #### [facility] CLIA [id number] [address] [place] [address] [place] Chloride [Moles/Vol] 101 mmol/L Normal 97-105 [facility] Comment on above: Order Comment: Speci men Type: BLOOD SPECIMEN [facility] Address: [address] [place] [address] Performed By: #### 5 8410-2 #### [facility] CLIA [id number] [address] [place] [address] [place] CO2 [Moles/Vol] 25 mmol/L Normal 22-30 [facility] Comment on above: Order Comment: Speci men Type: BLOOD SPECIMEN [facility] Address: [address] [place] [address] Performed By: #### 5 8410-2 #### [facility] CLIA [id number] [address] [place] [address] [place] Creatinine [Mass/Vol] 0.73 mg/dL Normal 0.73-1.22 [facility] Comment on above: Order Comment: Speci men Type: BLOOD SPECIMEN [facility] Address: [address] [place] [address] Performed By: #### 5 8410-2 #### [facility] CLIA [id number] [address] [place] [address] [place] Creatinine and Glomerular filtration rate.predicted panel (S/P/Bld) 104 mL/min/1.73m??? Normal >=60 [facility] Comment on above: Order Comment: Speci men Type: BLOOD SPECIMEN [facility] Address: [address] [place] [address] Result Comment: Leticia mated Glomerular Filtration Rate [...] GFR. Performed By: #### 5 8410-2 #### [facility] CLIA [id number] [address] [place] [address] [place] Glucose [Mass/Vol] 82 mg/dL Normal 74-99 [facility] Comment on above: Order Comment: Speci men Type: BLOOD SPECIMEN [facility] Address: [address] [place] [address] Result Comment: The [place] Diabetes Association (ADA) provides guidance for cutoff [...] Standards of Medical Care in Diabetes 2016, [place] Diabetes Association. Diabetes Care. 2016.39(Suppl 1). Performed By: #### 5 8410-2 #### [facility] CLIA [id number] [address] [place] [address] [place] Potassium [Moles/Vol] 4.1 mmol/L Normal 3.7-5.1 [facility] Comment on above: Order Comment: Speci men Type: BLOOD SPECIMEN [facility] Address: [address] [place] [address] Performed By: #### 5 8410-2 #### [facility] CLIA [id number] [address] [place] [address] [place] Protein [Mass/Vol] 7.6 g/dL Normal 6.3-8.0 [facility] Comment on above: Order Comment: Speci men Type: BLOOD SPECIMEN [facility] Address: [address] [place] [address] Performed By: #### 5 8410-2 #### [facility] CLIA [id number] [address] [place] [address] [place] Sodium [Moles/Vol] 140 mmol/L Normal 136-144 [facility] Comment on above: Order Comment: Speci men Type: BLOOD SPECIMEN [facility] Address: [address] [place] [address] Performed By: #### 5 8410-2 #### [facility] CLIA [id number] [address] [place] [address] [place] Urea nitrogen [Mass/Vol] 17 mg/dL Normal 9-24 [facility] Comment on above: Order Comment: Speci men Type: BLOOD SPECIMEN [facility] Address: [address] [place] [address] Performed By: #### 5 8410-2 #### [facility] CLIA [id number] [address] [place] [address] [place] Erythrocyte distribution wid th Auto (RBC) [Ratio]on 07-27-2023 Erythrocyte distribution width (RBC) [Ratio] 16.1 % High 11.5-15.0 [facility] Glucose mean value [Mass/vol ume] in Blood Estimated from glycated hemoglobinon 07-27-2023 Average glucose Estimated from glycated hemoglobin (Bld) [Mass/Vol] 157 mg/dL [facility] Comment on above: eAG: (Estimated aver age glucose) is a calculated value from HgbA1c and is in store marketing representative of the average blood glucose level in the last 2-3 month period. HISTORY PHYSICALon HISTORY PHYSICAL HNO ID: [id number] Author: KEVIN GOLDSMITH APRN.[employer] M[employer]ER Service: ? 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 [...] cardiac events (< 1% chance of , [place], CHF, malignant ventricular arrhythmias or high grade [...] note 06/19/23 notes the following, Echo 03/30/22 ([facility]) - Global LV systolic function is difficult [...] have a large neck STOP-Bang Score: 5 [id number] Score: Age: <65 Sex: male CHF history: Yes Hypertension history: Yes Stroke/TIA/thromboemb olism history: No Vascular disease history: Yes Diabetes history: Yes [id number] Score: 4 ARISCAT Score: Age: 51-80 Preoperative [...] of labs. (more content not included)... Normal [facility] HbA1c (Bld)on 07-27-2023 Average glucose Estimated from glycated hemoglobin (Bld) [Mass/Vol] 157 mg/dL [place] HbA1c (Bld) [Mass fraction] 7.1 % High 4.3 - 5.6 % [facility] Average glucose Estimated from glycated hemoglobin (Bld) [Mass/Vol] 157 mg/dL Normal [facility] Comment on above: Order Comment: Karina villarreal Type: BLOOD SPECIMEN [facility] Address: [address] [place] [address] Result Comment: eAG: (Estimated average glucose) is a calculated value from HgbA1c and is in store marketing representative of the average blood glucose level in the last 2-3 month period. Performed By: #### 5 8410-2 #### [facility] CLIA [id number] [address] [place] [address] [place] HbA1c (Bld) [Mass fraction] 7.1 % High 4.3-5.6 [facility] Comment on above: Order Comment: Karina villarreal Type: BLOOD SPECIMEN [facility] Address: [address] [place] [address] Result Comment: [place] Diabetes Association guidelines indicate that patients with HgbA1c in the range 5.7-6.4% are at increased risk for development of diabetes, and intervention by lifestyle modification may be beneficial. HgbA1c greater or equal to 6.5% is considered diagnostic of diabetes. Performed By: #### 5 8410-2 #### [facility] CLIA [id number] [address] [place] [address] [place] Hematocrit Auto (Bld) [Volum e fraction]on 07-27-2023 Hematocrit (Bld) [Volume fraction] 51.6 % High 39.0-51.0 [facility] Hemoglobin [Mass/volume] in Bloodon 07-27-2023 Hemoglobin (Bld) [Mass/Vol] 16.6 g/dL 13.0-17.0 [facility] Laboratory - Chemistry and C hemistry - challengeon 07-27-2023 Albumin [Mass/Vol] 4.3 g/dL 3.9-4.9 [facility] ALP [Catalytic activity/Vol] 100 U/L 38-113 [facility] ALT [Catalytic activity/Vol] 33 U/L 10-54 [facility] AST [Catalytic activity/Vol] 26 U/L 14-40 [facility] Bilirubin [Mass/Vol] 0.2 mg/dL 0.2-1.3 [facility] Calcium [Mass/Vol] 10.5 mg/dL High 8.5-10.2 [facility] Chloride [Moles/Vol] 101 mmol/L 97-105 [facility] CO2 [Moles/Vol] 25 mmol/L 22-30 [facility] Creatinine [Mass/Vol] 0.73 mg/dL 0.73-1.22 [facility] Glucose [Mass/Vol] 82 mg/dL 74-99 [facility] Comment on above: The [place] Diabete s Association (ADA) provides guidance for [...] Standards of Medical Care in Diabetes 2016, [place] Diabetes Association. Diabetes Care. 2016.39(Suppl 1). Potassium [Moles/Vol] 4.1 mmol/L 3.7-5.1 [facility] Sodium [Moles/Vol] 140 mmol/L 136-144 [facility] Urea nitrogen [Mass/Vol] 17 mg/dL 9-24 [facility] - Hematology and Cell countson 07-27-2023 HbA1c (Bld) [Mass fraction] 7.1 % High 4.3-5.6 [facility] Comment on above: [place] Diabetes As sociation guidelines indicate that patients [...] RBC Auto (Bld) [#/Vol] 10.12 k/uL 3.70-11.00 [facility] MCH Auto (RBC) [Entitic mass ]on 07-27-2023 MCH (RBC) [Entitic mass] 27.6 pg 26.0-34.0 [facility] MCHC Auto (RBC) [Mass/Vol]on 07-27-2023 MCHC (RBC) [Mass/Vol] 32.2 g/dL 30.5-36.0 [facility] MCV Auto (RBC) [Entitic vol] on 07-27-2023 MCV (RBC) [Entitic vol] 85.7 fL 80.0-100.0 [facility] No Panel Informationon 07-26 Estimated GFR (CKD-EPI) 104 mL/min/1.73m??? >=6 0 [facility] Comment on above: Estimated Glomerular Filtration Rate [...] 07-27-2023 Nucleated RBC (Bld) [#/Vol] 10*3/uL <0.01 [facility] Platelet mean volume Auto (B ld) [Entitic vol]on 07-27-2023 Platelet mean volume (Bld) [Entitic vol] 10.3 fL 9.0-12.7 [facility] Platelets Auto (Bld) [#/Vol] on 07-27-2023 Platelets (Bld) [#/Vol] 264 10*3/uL 150-400 [facility] Protein [Mass/volume] in Ser um or Plasmaon 07-27-2023 Protein [Mass/Vol] 7.6 g/dL 6.3-8.0 [facility] RBC Auto (Bld) [#/Vol]on RBC (Bld) [#/Vol] 6.02 10*6/uL High 4.20-6.00 [facility] Serum or plasma anion gap de terminationon 07-27-2023 Anion gap [Moles/Vol] 14 mmol/L 9-18 [facility] CNPNon 07-18-2023 CNPN Telephone (UROLMN) CADEN WILLS ([id number]) 1960 M Date Time Provider Department 07/18/23 [...] round with a 6:00 arrival time at [facility]. States that he will be going home after pre ops on 07/26 and coming back the following day. No other questions or concerns expressed. 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 - omega 7-ozl-kcq-fish oil (FISH OIL) 100-160-1,000 mg cap Take 1,000 mg by mouth. - bumetanide (BUMEX ORAL) Take by mouth. 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] 05/03/2023 Scarring of penis [N48.6] 05/03/2023 Erectile dysfunction associated with type 2 beverley*05/03/2023 Encounter Status:Closed by NOY MARY on 07/18/23 Normal [facility] HbA1c HPLC (Bld) [Mass fract ion]on 06-21-2023 HbA1c (Bld) [Mass fraction] 7.4 % [facility] No Panel Informationon 06-20 Bedside Glucose 133 [facility] CNPNon 06-20-2023 CNPN Telephone (RICKEY) CADEN WILLS ([id number]) 1960 M Date Time Provider Department 06/20/23 NOY MARY During your visit today, we recorded the following information about you: Noy Mary RN 06/20/2023 12:26 PM Signed Called Caden Wills and KIM to confirm surgery date of 07/[address] Alberto. Discussed pre op testing on 07/26 in [place]. 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 - omega 6-dvj-upl-fish oil (FISH OIL) 100-160-1,000 mg cap Take 1,000 mg by mouth. - bumetanide (BUMEX ORAL) Take by mouth. 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] 05/03/2023 Scarring of penis [N48.6] 05/03/2023 Erectile dysfunction associated with type 2 beverley*05/03/2023 Encounter Status:Closed by NOY MARY on 06/20/23 Normal [facility] CNCOon 06-19-2023 CNCO Letter Text Normal [facility] CNOVon 06-19-2023 CNOV Office Visit ([facility] ) CADEN WILLS ([id number]) 1960 M Date Time Provider Department 06/19/23 1:00 PM LIGIA COLMENARES During your visit today, we recorded the following information about you: Pulse Blood pressure Weight 68/minute 112/68 124.3 kg Ligia Colmenares MD 06/19/2023 1:23 PM Signed [facility] Heart and Vascular [place] Department of Cardiovascular Medicine SECTION [...] furniture (8.00 METs). 12/06/2022 Robyn Miller Cardiology- [facility] HPI Pleasant 62-year-old man with prior history [...] 1 tablet by mouth every afternoon. omega 2-esf-roe-fish oil (FISH OIL) 100-160-1,000 mg cap Take [...] Last 3 (more content not included)... Normal [facility] Cholesterol in LDL Calc [Mas s/Vol]on 06-19-2023 Cholesterol in LDL [Mass/Vol] 66.0 mg/dL [facility] Comment on above: <100 mg/dl [id number] 0-129 mg/dl NEAR OR ABOVE ATCHCLP534-354 mg/dl BORDERLINE [id number] mg/dl HIGH>190 mg/dl VERY HIGH Cholesterol in VLDL Calc [Ma ss/Vol]on 06-19-2023 Cholesterol in VLDL [Mass/Vol] 43.0 mg/dL [facility] ECG COMPLETEon 06-19-2023 Atrial Rate 68 BPM [place] Calculated P [place] 53 degrees [facility] Calculated [place] 20 degrees [facility] Calculated T [place] 86 degrees [facility] P-R Interval 188 ms [place] QRS Duration 88 ms [place] QT Interval 414 ms [place] QTC Calculation (Bazett) [facility] ms [facility] Ventricular Rate 68 BPM [facility] ECG COMPLETE Ventricular Rate : 6 8 BPM Atrial Rate : 68 BPM P-R Interval : 188 ms QRS Duration : 88 ms Q-T Interval : 414 ms QTC Calculation(Bazett) : 440 ms Calculated P [place] : 53 degrees Calculated R [place] : 20 degrees Calculated [place] : 86 degrees NORMAL SINUS RHYTHM LOW VOLTAGE QRS NONSPECIFIC ST ABNORMALITY ABNORMAL ECG Confirmed by LIGIA COLMENARES M.D. ([id number]), publications editor Lainey Agee ([id number]) on 06/19/2023 2:11:39 PM NAME : CADEN WILLS PID : [id number] : 1960 Gender : Male Race : Unknown ORD : [id number] Procedure Date : Jun 19 2023 13:03:26 Edit Date : Jun 19 2023 14:11:40 Diagnosis: NORMAL SINUS RHYTHM LOW VOLTAGE QRS NONSPECIFIC ST ABNORMALITY ABNORMAL ECG Confirmed by LIGIA COLMENARES M.D. ([id number]), publications editor Lainey Agee ([id number]) on 06/19/2023 2:11:39 PM Test Reason : Location : 105 : CAR Overread By : LIGIA COLMENARES M.D. Edited By : Lainey Agee Referred By : LIGIA COLMENARES Acquired by : Arnaldo waters [facility] Estimated glomerular filtrat ion rate (GFR) non- Americanon 06-19-2023 GFR/1.73 sq M.predicted among non-blacks MDRD (S/P/Bld) [Vol rate/Area] mL/min/{1.73_m2} >=60 [facility] - Chemistry and C hemistry - challengeon 06-19-2023 Calcium [Mass/Vol] 8.7 mg/dL 8.5-10.1 [facility] Chloride [Moles/Vol] 103 mmol/L 98-107 [facility] Cholesterol [Mass/Vol] 141 mg/dL <=200 [facility] Cholesterol in HDL [Mass/Vol] 32 mg/dL 40-60 [facility] Comment on above: > or =60 mg/dl - LOW CARDIOVASCULAR RISK<40 mg/dl - HIGH CARDIOVASCULAR RISK CO2 [Moles/Vol] 29.5 mmol/L 21.0-32.[address] [facility] Creatinine [Mass/Vol] 0.86 mg/dL 0.70-1.30 [facility] GFR/1.73 sq M.predicted MDRD (S/P/Bld) [Vol rate/Area] mL/min/{1.73_m2} >=60 [facility] Glucose [Mass/Vol] 143 mg/dL 74-106 [facility] Potassium [Moles/Vol] 4.2 mmol/L 3.5-5.1 [facility] Sodium [Moles/Vol] 141 mmol/L 136-145 [facility] Triglyceride [Mass/Vol] 215 mg/dL <=150 [facility] Urea nitrogen [Mass/Vol] 15.0 mg/dL 7.0-18.0 [facility] Urea nitrogen/Creatinine [Mass ratio] 17.4 mg/mg [facility] Office Visiton 06-19-2023 Follow-up visit [id number] Caden Wills 1960 M Date Provider Department Center 06/19/2023 Huang-ISMBA KASPER [facility] Family History Problem Relation Age of Onset Coronary artery disease Father Family Status - Relation Status Age at Father Level of Service:7[address]57 [place] OFFICE/OUTPATIENT ESTABLISHED MOD MDM [address] [facility] Serum or plasma anion gap de terminationon 06-19-2023 Anion gap [Moles/Vol] 12.7 mmol/L [facility] Serum or plasma total choles terol/high density lipoprotein (HDL) cholesterol mass evelyn 06-19-2023 Cholesterol.total/Radha sterol in HDL [Mass ratio] 4.4 {ratio} [facility] Comment on above: 3.3 - 4.4 LOW RISK4. 4 - 7.1 AVERAGE RISK7.1 - 11.0 MODERATE RISK>11.0 HIGH RISK [facility] 06-14-2023 CHUYN Telephone (RICKEY) CADEN WILLS ([id number]) 1960 M Date Time Provider Department 06/14/23 NOY MARY During your visit today, we recorded the following information about you: Noy Mary RN 06/14/2023 9:45 AM Signed Called Caden Wills and KIM to confirm surgery date of 07/[address] Alberto. Discussed pre op testing on 07/26 in [place], or he could make two trips. Asked him to confirm Asked patient to confirm receipt, and voice any questions or concerns. Number provided. 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 - omega 9-gew-ufw-fish oil (FISH OIL) 100-160-1,000 mg cap Take 1,000 mg by mouth. - bumetanide (BUMEX ORAL) Take by mouth. 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 - omega 9-cty-kqw-fish oil (FISH OIL) 100-160-1,000 mg cap Take 1,000 mg by mouth. - bumetanide (BUMEX ORAL) Take by mouth. 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 00TIFF [facility] CNOVon 05-03-2023 CNOV Office Visit (UROLMN ) CADEN WILLS ([id number]) 1960 M Date Time Provider Department 05/03/23 2:00 PM JIAN ALBERTO During your visit today, we recorded the following information about you: Pulse Blood pressure Weight Height 67/minute 137/78 123.4 kg 1.778 m Jian Alberto MD 05/03/2023 2:28 PM Signed [facility] NEW PATIENT HISTORY AND PHYSICAL EXAM PATIENT INFO: Caden Wills 63 year old REFERRING M.D.: Antonia Bush MD [address] [address] This consult was requested by Dr. Bush for an opinion regarding buried penis and erectile dysfunction, and my final recommendations will be communicated to the requesting health care provider by way of the shared medical record for internal providers or letter via the [employer] for external providers. 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 , interested in future sexual life. MEDICATIONS: [...] noted ASSESSMENT/PLAN: (more content not included)... Normal [facility] URINALYSIS, REFLEX MICROSCOP ICon 05-03-2023 Bilirubin Ql (U) Negative Negative [facility] Clarity (Unsp spec) Clear Clear [facility] Color (U) Light Yellow Yellow [place] Glucose Test strip (U) [Mass/Vol] 4+ Abnormal Trace, Negative [place] Hemoglobin Ql (U) Negative Negative, Trace [place] Ketones Ql (U) Negative Negative, Trace [place] Leukocyte esterase Test strip Ql (U) 25 Quintin/uL Negative, 25 Quintin/uL [place] Nitrite Ql (U) Negative Negative [place] pH (U) 5.5 [pH] 5.0 - 8.0 [place] Protein (U) [Mass/Vol] Negative Trace , Negative [place] Specific gravity (U) [Rel density] 1.032 High 1.005 - 1.030 [place] Urobilinogen Ql (U) Negative Negative [facility] Bilirubin Ql (U) Negative Normal Negative [facility] Comment on above: Order Comment: Speci men Type: BLOOD SPECIMEN Ordering Facility: [facility] Address: [address] [id number] Performed By: #### 5 8410-2 #### [facility] CLIA [id number] [address] [place] [address] [place] Clarity (Unsp spec) Clear Normal Clear [facility] Comment on above: Order Comment: Speci men Type: BLOOD SPECIMEN Ordering Facility: [facility] Address: [address] [place] [address] Performed By: #### 5 8410-2 #### [facility] CLIA [id number] [address] [place] [address] [place] Color (U) Light Yellow Normal Yellow [facility] Comment on above: Order Comment: Speci men Type: BLOOD SPECIMEN Ordering Facility: [facility] Address: [address] [place] [address] Performed By: #### 5 8410-2 #### [facility] CLIA [id number] [address] [place] [address] [place] Glucose Test strip (U) [Mass/Vol] 4+ Abnormal Trace, Negative [facility] Comment on above: Order Comment: Speci men Type: BLOOD SPECIMEN Ordering Facility: [facility] Address: [address] [place], [place] [address] Performed By: #### 5 8410-2 #### [facility] CLIA [id number] [address] [place], [place] [id number] [place] Hemoglobin Ql (U) Negative Normal Negative, Trace [facility] Comment on above: Order Comment: Speci men Type: BLOOD SPECIMEN Ordering Facility: [facility] Address: [address] [place], [place] [id number] Performed By: #### 5 8410-2 #### [facility] CLIA [id number] [address] [place] [address] [place] Ketones Ql (U) Negative Normal Negative, Trace [facility] Comment on above: Order Comment: Speci men Type: BLOOD SPECIMEN Ordering Facility: [facility] Address: [address] [place] [address] Performed By: #### 5 8410-2 #### [facility] CLIA [id number] [address] [place] [address] [place] Leukocyte esterase Test strip Ql (U) 25 Quintin/uL Normal Negative, 25 Quintin/uL [facility] Comment on above: Order Comment: Speci men Type: BLOOD SPECIMEN Ordering Facility: [facility] Address: [address] [place] [address] Performed By: #### 5 8410-2 #### [facility] CLIA [id number] [address] [place] [address] [place] Nitrite Ql (U) Negative Normal Negative [facility] Comment on above: Order Comment: Speci men Type: BLOOD SPECIMEN Ordering Facility: [facility] Address: [address] [place] [address] Performed By: #### 5 8410-2 #### [facility] CLIA [id number] [address] [place] [address] [place] pH (U) 5.5 [pH] Normal 5.0-8.0 [facility] Comment on above: Order Comment: Speci men Type: BLOOD SPECIMEN Ordering Facility: [facility] Address: [address] [place] [address] Performed By: #### 5 8410-2 #### [facility] CLIA [id number] [address] [place] [address] [place] Protein (U) [Mass/Vol] Negative Normal Trace , Negative [facility] Comment on above: Order Comment: Speci men Type: BLOOD SPECIMEN Ordering Facility: [facility] Address: [address] [place] [address] Performed By: #### 5 8410-2 #### [facility] CLIA [id number] [address] [place] [address] [place] Specific gravity (U) [Rel density] 1.032 High 1.005-1.030 [facility] Comment on above: Order Comment: Speci men Type: BLOOD SPECIMEN Ordering Facility: [facility] Address: [address] [place] [address] Performed By: #### 5 8410-2 #### [facility] CLIA [id number] [address] [place] [address] [place] Urobilinogen Ql (U) Negative Normal Negative [facility] Comment on above: Order Comment: Speci men Type: BLOOD SPECIMEN Ordering Facility: [facility] Address: [address] [place] [address] Performed By: #### 5 8410-2 #### [facility] CLIA [id number] [address] [place] [address] [place] Physician Referralon 023 Physician Referral [id number]#1 .00TIFF Normal [facility] Physician Referralon 023 Physician Referral [id number]#1 .00TIFF Normal [facility] Physician Referralon 023 Physician Referral [id number]#1 .00TIFF Normal [facility] Screenson 03-23-2023 Screens [id number]#1 .00TIFF Normal [facility] Ambulatory Visit Summaryon 1 05-23-2022 Ambulatory Visit Summary CADEN WILLS :1960 Visit Date:03/22/2023 Ambulatory Visit Instructions Your Diagnosis ED (erectile dysfunction) Phimosis Hidden penis Balanoposthitis Anticoagulated Tests Performed Urnls Dip Stick Auto w/o Microscopy POC 20229 Your Care Team Attending Physician - Antonia [...] ROXANN BARR, Antonia Sharma, URL When: Where: [facility] [address] [place], [place] [phone]- Someone Will Contact You Regarding These Appointments [facility] External Ambulatory Referral, Urology, Dr. Alberto, 03/22/23 11:49:00 EST, Phimosis Normal [facility] Patient Educationon 03-22-20 Patient Education [...] these instructions at home: Medicines ? Take gnnd-klc-aaiysji and prescription medicines only as told by [...] include cig (more content not included)... 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 S/p bypass [...] seen by Dr. Jian Alberto at the [facility] for his opinion. He can utilize yfme-scw-ilwiuod Monistat cream/triple antibiotic on a as needed [...] with voice recognition artificial intelligence software, specifically [employer], [email or web address] and [email or web address] (more content not included)... Normal [facility] Comment on above: Result Comment: Elec tronically Signed By: Antonia BUSH MD\.br\Date and Time Signed: 03/22/23 12:07 EST\.br\Electronically Co-Signed By: Maria M Campos\.br\Date and Time Co-Signed: 03/22/23 11:53 EST A1C HEMOGLOBINon 03-08-2023 HbA1c (Bld) [Mass fraction] 7.2 % [email or web address] Other Glucose - FINGER STICKon Glucose [Mass/Vol] 187 mg/dL [email or web address] Other HbA1c (Bld) [Mass fraction]o n 03-08-2023 A1C HEMOGLOBIN [employer] Other Orders Onlyon 02-08-2023 Orders Only [id number] Caden Wills 1960 M Date Provider Department Center 02/08/2023 ROBYN CASTILLO [facility] Family History Problem Relation Age of Onset Coronary artery disease Father Family Status - Relation Status Age at Father Normal [facility] A1C HEMOGLOBINon 11-24-2022 HbA1c (Bld) [Mass fraction] 6.6 % [email or web address] Other Glucose - FINGER STICKon Glucose [Mass/Vol] 102 mg/dL [email or web address] Other HbA1c (Bld) [Mass fraction]o n 11-24-2022 A1C HEMOGLOBIN [employer] Other A1C HEMOGLOBINon 08-22-2022 HbA1c (Bld) [Mass fraction] 6.5 % [email or web address] Other Glucose - FINGER STICKon Glucose [Mass/Vol] 159 mg/dL [email or web address] Other HbA1c (Bld) [Mass fraction]o n 08-22-2022 A1C HEMOGLOBIN [employer] Other A1C HEMOGLOBINon 05-19-2022 HbA1c (Bld) [Mass fraction] 6.9 % [email or web address] Other Glucose - FINGER STICKon Glucose [Mass/Vol] 206 mg/dL [email or web address] Other HbA1c (Bld) [Mass fraction]o n 05-19-2022 A1C HEMOGLOBIN [employer] Other UA RANDOMon 04-05-2022 Bilirubin Ql (U) Negative Normal NEGATIVE [facility] Comment on above: Performed By: #### U A #### [facility] [address] [place] [address] Dr. Jose Rojas Clarity (U) CLOUDY Abnormal CLEAR [facility] Comment on above: Performed By: #### U A #### [facility] [address] [place] [address] Dr. Jose Rojas Color (U) LT. YELLOW Normal YELLOW [facility] Comment on above: Performed By: #### U A #### [facility] [address] [place] [address] Dr. Jose Rojas Glucose Ql (U) >1000 Abnormal NEGATIVE [facility] Comment on above: Performed By: #### U A #### [facility] [address] [address] [address] Jose Rojas Hemoglobin Ql (U) MODERATE Abnormal NEGATIVE [facility] Comment on above: Performed By: #### U A #### [facility] [address] [place] [address] Dr. Jose Rojas Ketones Ql (U) Negative Normal NEGATIVE [facility] Comment on above: Performed By: #### U A #### [facility] [address] [place] [address] Dr. Jose Rojas LEUKOCYTES MODERATE Abnormal NEGATIVE [facility] Comment on above: Performed By: #### U A #### [facility] [address] [place] [address] Dr. Jose Rojas Nitrite Ql (U) Negative Normal NEGATIVE [facility] Comment on above: Performed By: #### U A #### [facility] [address] [place] [address] Dr. Jose Rojas pH (U) 5.5 [pH] Normal 5-9 [facility] Comment on above: Performed By: #### U A #### [facility] [address] [place] [address] Dr. Jose Rojas SPEC GRAVITY <=1.005 Abnormal 1.005-<=1.0 25 [facility] Comment on above: Performed By: #### U A #### [facility] [address] [address] [address] Jose Rojas UA PROTEIN Negative Normal NEGATIVE/ TRACE [facility] Comment on above: Performed By: #### U A #### [facility] [address] [address] [address] Jose Rojas Urobilinogen Qn (U) 0.2 {Ritu'U}/dL Normal 0.2 - 1. 0 [facility] Comment on above: Performed By: #### U A #### [facility] [address] [address] [address] Jose Rojas ECHOCARDIO M/2D COMPLETEon 1 05-31-2021 ECHOCARDIO M/2D COMPLETE Patient: CADEN WILLS Exam Date: 03/30/2022 : 1960 Gender:M Ordering : DR SIMBA KASPER M.D. Admission #: [id number] Family : DR FAHAD ACEVES D.O. Order #: [id number] CLICK HERE TO VIEW EXAM ECHOCARDIOGRAM REPORT [...] Muniz M.D. on 03/31/2022 at 14:44 Normal [facility] BNPon 02-16-2022 Natriuretic peptide B (Bld) [Mass/Vol] 335.0 pg/mL Normal <=900.0 [facility] Comment on above: Performed By: #### B LEADERSHIP DEVELOPMENT INSTRUCTOR #### [facility] [address] [place] [address] Dr. Jose Rojas CBC AUTO DIFFon 02-16-2022 BASO # 0.1 103/ul Normal 0.0-0.1 [facility] Comment on above: Performed By: #### D ATCBC #### [facility] [address] [place] [address] Dr. Jose Rojas Basophils/100 WBC (Bld) 0.7 % Normal 0.2-2.0 [facility] Comment on above: Performed By: #### D ATCBC #### [facility] [address] [place] [address] Dr. Jose Rojas EO # 0.4 103/ul Normal 0.0-0.7 [facility] Comment on above: Performed By: #### D ATCBC #### [facility] [address] [place] [address] Dr. Jose Rojas Eosinophils/100 WBC (Bld) 3.9 % Normal 0.9-7.0 [facility] Comment on above: Performed By: #### D ATCBC #### [facility] [address] [place] [address] Dr. Jose Rojas Erythrocyte distribution width (RBC) [Ratio] 16.5 % Critically high 11.0-15.0 [facility] Comment on above: Performed By: #### D ATCBC #### [facility] [address] [place] [address] Dr. Jose Rojas Hematocrit (Bld) [Volume fraction] 44.9 % Normal 42.0-54.0 [facility] Comment on above: Performed By: #### D ATCBC #### [facility] [address] [place] [address] Dr. Jose Rojas Hemoglobin (Bld) [Mass/Vol] 14.3 g/dL Normal 14.0-18.0 [facility] Comment on above: Performed By: #### D ATCBC #### [facility] [address] [address] [address] Jose Rojas IG # 0.33 10e3/ul Critically high 0.00-0.03 [facility] Comment on above: Performed By: #### D ATCBC #### [facility] [address] [address] [address] Jose Rojas IG % 3.5 % Critically high 0.0-0.5 [facility] Comment on above: Performed By: #### D ATCBC #### [facility] [address] [address] [address] Jose Rojas LYMPH # 1.9 103/ul Normal 1.2-3.8 [facility] Comment on above: Performed By: #### D ATCBC #### [facility] [address] [address] [address] Jose Rojas Lymphocytes/100 WBC (Bld) 19.8 % Critically low 20.5-60.0 [facility] Comment on above: Performed By: #### D ATCBC #### [facility] [address] [address] [address] Jose Rojas MCH (RBC) [Entitic mass] 27.1 pg Normal 25.9-34.0 [facility] Comment on above: Performed By: #### D ATCBC #### [facility] [address] [address] [address] Jose Rojas MCHC (RBC) [Mass/Vol] 31.8 g/dL Normal 29.9-35.2 [facility] Comment on above: Performed By: #### D ATCBC #### [facility] [address] [address] [address] Jose Rojas MCV (RBC) [Entitic vol] 85.0 fL Normal 80.0-94.0 [facility] Comment on above: Performed By: #### D ATCBC #### [facility] [address] [address] [address] Jose Rojas MONO # 0.9 103/ul Critically high 0.3-0.8 [facility] Comment on above: Performed By: #### D ATCBC #### [facility] [address] [address] [address] Jose Rojas Monocytes/100 WBC (Bld) 9.1 % Normal 1.7-12.0 [facility] Comment on above: Performed By: #### D ATCBC #### [facility] [address] [address] [address] Jose Rojas NEUT # 6.0 103/ul Normal 1.4-6.5 [facility] Comment on above: Performed By: #### D ATCBC #### [facility] [address] [place] [address] Dr. Jose Rojas Neutrophils/100 WBC (Bld) 63.0 % Normal 43.0-75.0 [facility] Comment on above: Performed By: #### D ATCBC #### [facility] [address] [place] [address] Dr. Jose Rojas Platelet mean volume (Bld) [Entitic vol] 9.2 fL Critically low 9.5-13.5 [facility] Comment on above: Performed By: #### D ATCBC #### [facility] [address] [place] [address] Dr. Jose Rojas PLT 485 103/ul Critically high 150-450 [facility] Comment on above: Performed By: #### D ATCBC #### [facility] [address] [place] [address] Dr. Jose Rojas RBC 5.28 106/ul Normal 4.70-6.10 [facility] Comment on above: Performed By: #### D ATCBC #### [facility] [address] [place] [address] Dr. Jose Rojas WBC 9.6 103/ul Normal 4.0-11.0 [facility] Comment on above: Performed By: #### D ATCBC #### [facility] [address] [address] [address] Jose Rojas EMERSON- BMP WITH LIPIDon 2021 Anion gap [Moles/Vol] 14.3 mmol/L [facility] Comment on above: Performed By: #### D ATBMP #### [facility] [address] [address] [address] Jose Rojas Calcium [Mass/Vol] 9.9 mg/dL Normal 8.5-10.1 [facility] Comment on above: Performed By: #### D ATBMP #### [facility] [address] [address] [address] Jose Rojas Chloride [Moles/Vol] 101 mmol/L Normal 98-107 [facility] Comment on above: Performed By: #### D ATBMP #### [facility] [address] [place] [address] Dr. Jose Rojas Cholesterol [Mass/Vol] 110 mg/dL Normal <=200 [facility] Comment on above: Performed By: #### D ATBMP #### [facility] [address] [address] [address] Jose Rojas Cholesterol in HDL [Mass/Vol] 28 mg/dL Critically low 40-60 [facility] Comment on above: Performed By: #### D ATBMP #### [facility] [address] [address] [address] Jose Rojas Cholesterol in LDL [Mass/Vol] 21.2 mg/dL Normal [facility] Comment on above: Performed By: #### D ATBMP #### [facility] [address] [place] [address] Dr. Jose Rojas CO2 [Moles/Vol] 28.2 mmol/L Normal 21.0-32.0 [facility] Comment on above: Performed By: #### D ATBMP #### [facility] [address] [address] [address] Jose Rojas Creatinine [Mass/Vol] 1.14 mg/dL Normal 0.70-1.30 [facility] Comment on above: Performed By: #### D ATBMP #### [facility] [address] [address] [address] Jose Rojas EGFR-AF DOMINICAN >60 Normal >=60 [facility] Comment on above: Performed By: #### D ATBMP #### [facility] [id number] Jose Rojas EGFR-NON AF DOMINICAN >60 Normal >=60 [facility] Comment on above: Performed By: #### D ATBMP #### [facility] [address] [address] [address] Jose Rojas Glucose [Mass/Vol] 254 mg/dL Critically high 74-106 [facility] Comment on above: Performed By: #### D ATBMP #### [facility] [address] [address] [address] Jose Rojas HDL NORMAL > or = 60 mg/dl - LO W CARDIOVASCULAR RISK <40 mg/dl - HIGH CARDIOVASCULAR RISK Normal [facility] Comment on above: Performed By: #### D ATBMP #### [facility] [address] [address] [address] Jose Rojas LDL CALC NORMAL SEE BELOW Normal [facility] Comment on above: Result Comment: <100 mg/dl OPTIMAL 100 - 129 mg/dl NEAR OR ABOVE OPTIMAL 130 - 159 mg/dl BORDERLINE HIGH 160 - 189 mg/dl HIGH >190 mg/dl VERY HIGH Performed By: #### D ATBMP #### [facility] [address] [address] [address] Jose Rojas Potassium [Moles/Vol] 4.5 mmol/L Normal 3.5-5.1 [facility] Comment on above: Performed By: #### D ATBMP #### [facility] [address] [address] [address] Jose Rojas Sodium [Moles/Vol] 139 mmol/L Normal 136-145 [facility] Comment on above: Performed By: #### D ATBMP #### [facility] [address] [address] [address] Jose Rojas Triglyceride [Mass/Vol] 304 mg/dL Critically high <=150 [facility] Comment on above: Performed By: #### D ATBMP #### [facility] [address] [address] [address] Jose Rojas Urea nitrogen [Mass/Vol] 21.0 mg/dL Critically high 7.0-18.0 [facility] Comment on above: Performed By: #### D ATBMP #### [facility] [address] [address] [address] Jose Rojas Urea nitrogen/Creatinine [Mass ratio] 18.4 mg/mg Normal [facility] Comment on above: Performed By: #### D ATBMP #### [facility] [address] [address] [address] Jose Rojas VLDL CALC 60.8 mg/dL Normal [facility] Comment on above: Performed By: #### D ATBMP #### [facility] [address] [address] [address] Jose Rojas Albumin [Mass/volume] in Ser um or PlasmaOrdered By: Yamilex Foster on 02-11-2022 Albumin [Mass/Vol] 3.5 g/dL 3.2-5.5 [facility] Cholesterol [Mass/volume] in Serum or PlasmaOrdered By: Yamilex Foster on 02-11-2022 Cholesterol [Mass/Vol] 96 mg/dL 140-200 [facility] [place] Comment on above: Chol less than 200 m g/dl low riskChol 201-239 mg/dl borderline riskChol 240 mg/dl and greater high risk Cholesterol in LDL Calc [Mas s/Vol]Ordered By: Yamilex Foster on 02-11-2022 Cholesterol in LDL [Mass/Vol] 34 mg/dL 0-100 [facility] Comment on above: LDL ATP III CLASSIFI CATIONLDL less than 100 mg/dL OptimalLDL 100-129 mg/dL Near or above optimalLDL 130-159 mg/dL Borderline highLDL 160-189 mg/dL HighLDL greater than 189 mg/dL Very high Cholesterol in VLDL Calc [Ma ss/Vol]Ordered By: Yamilex Foster on 02-11-2022 Cholesterol in VLDL [Mass/Vol] 28 mg/dL [facility] Creatinine [Mass/volume] in UrineOrdered By: Yamilex Foster on 02-11-2022 Creatinine (U) [Mass/Vol] 49.7 mg/dL [facility] Comment on above: No reference range e stablished Creatinine and Glomerular fi ltration rate.predicted panel (S/P/Bld)Ordered By: Yamilex Foster on 02-11-2022 Creatinine [Mass/Vol] 0.85 mg/dL 0.64-1.27 [facility] Estimated glomerular filtrat ion rate (GFR) non- AmericanOrdered By: Yamilex Foster on 02-11-2022 GFR/1.73 sq M.predicted among non-blacks MDRD (S/P/Bld) [Vol rate/Area] > 60 mL/Min [facility] Globulin Calc (S) [Mass/Vol] Ordered By: Yamilex Foster on 02-11-2022 Globulin (S) [Mass/Vol] 3.2 g/dL [facility] - Chemistry and C hemistry - challengeOrdered By: Yamilex Foster on 02-11-2022 Cobalamin (Vitamin B12) [Mass/Vol] 227 pg/mL 180-914 [facility] No Panel InformationOrdered By: Yamilex Foster on 02-11-2022 Estimated GFR () > 60 mL/Min [facility] Comment on above: GFR estimated refere nce range: According to KDOQI guidelines, <60 ml/min/1.73m2 is sufficient to diagnose a patient with chronic kidney disease. Pharmacy Creatinine Clearance (Chem N/A [facility] Protein [Mass/volume] in Ser um or PlasmaOrdered By: Yamilex Foster on 02-11-2022 Protein [Mass/Vol] 6.7 g/dL 6.1-7.9 [facility] Serum or plasma alanine mccoy otransferase measurement without P-5'-P (enzymatic activiOrdered By: Yamilex Foster on 02-11-2022 ALT No additional P-5'-P [Catalytic activity/Vol] 23 U/L [facility] Serum or plasma albumin/glob ulin mass ratioOrdered By: Yamilex Foster on 02-11-2022 Albumin/Globulin [Mass ratio] 1.1 {ratio} [facility] Serum or plasma alkaline elle sphatase measurement (enzymatic activity/volume)Ordered By: Yamilex Foster on 02-11-2022 ALP [Catalytic activity/Vol] 82 U/L 32-92 [facility] Serum or plasma anion gap de terminationOrdered By: Yamilex Foster on 02-11-2022 Anion gap [Moles/Vol] 15.4 mmol/L 6.0-15.0 [facility] [place] Serum or plasma aspartate am inotransferase measurement (enzymatic activity/volume)Ordered By: Yamilex Foster on 02-11-2022 AST [Catalytic activity/Vol] 22 U/L [facility] Serum or plasma calcium destiny urement (mass/volume)Ordered By: Yamilex Foster on 02-11-2022 Calcium [Mass/Vol] 9.7 mg/dL 8.2-10.2 [facility] Serum or plasma chloride donato surement (moles/volume)Ordered By: Yamilex Foster on 02-11-2022 Chloride [Moles/Vol] 101 mmol/L 95-114 [facility] Serum or plasma glucose destiny urement (mass/volume)Ordered By: Yamilex Foster on 02-11-2022 Glucose [Mass/Vol] 85 mg/dL 70-100 [facility] Comment on above: ADA recommended refe rence rangeRandom Glucose Reference Range is dependent on time and content of last meal. Glucose of more than 200 mg/dL in a nonstressed, ambulatory subject supports the diagnosis of Diabetes Mellitus. Serum or plasma high density lipoprotein (HDL) cholesterol measurementOrdered By: Yamilex Foster on 02-11-2022 Cholesterol in HDL [Mass/Vol] 34 mg/dL 29-71 [facility] Comment on above: HDL CHOL ATP-III CLA SSIFICATION Cardiovascular RiskHDL > or equal to 60 mg/dL LOWHDL < 40 mg/dL HIGH Serum or plasma potassium me asurement (moles/volume)Ordered By: Yamilex Foster on 02-11-2022 Potassium [Moles/Vol] 4.2 mmol/L 3.5-5.1 [facility] Serum or plasma sodium measu rement (moles/volume)Ordered By: Yamilex Foster on 02-11-2022 Sodium [Moles/Vol] 138 mmol/L 136-146 [facility] Serum or plasma total biliru bin measurement (mass/volume)Ordered By: Yamilex Foster on 02-11-2022 Bilirubin [Mass/Vol] 0.7 mg/dL 0.3-1.2 [facility] Serum or plasma total carbon dioxide measurement (moles/volume)Ordered By: Yamilex Foster on 02-11-2022 CO2 [Moles/Vol] 25.8 mmol/L 22.0-30.[address] [facility] Serum or plasma total choles terol/high density lipoprotein (HDL) cholesterol mass ratOrdered By: Yamilex Foster on 02-11-2022 Cholesterol.total/Radha sterol in HDL [Mass ratio] 2.8 {ratio} <5.0 [facility] Serum or plasma urea nitroge n measurement (mass/volume)Ordered By: Yamilex Foster on 02-11-2022 Urea nitrogen [Mass/Vol] 16 mg/dL 9-23 [facility] Triglyceride [Mass/volume] i n Serum or PlasmaOrdered By: Yamilex Foster on 02-11-2022 Triglyceride [Mass/Vol] 140 mg/dL 35-149 [facility] Comment on above: TRIG ATP [...] 20 mg/L (U) [Mass/Vol] 3.4 mg/dL 0.0-1.8 [facility] Urine microalbumin/creatinin e mass ratioOrdered By: Yamilex Foster on 02-11-2022 Albumin/Creatinine DL <= 20 mg/L (U) [Mass ratio] 68.0 mg/g 0.0-30.0 [facility] Comment on above: 30-300 mg/g indicate s an increased risk for diabetic nephropathy. Greater than 300 mg/g is consistent with clinical nephropathy. (Am. J. Kidney Disease 1995, 25:107) BNPon 12-31-2021 Natriuretic peptide B (Bld) [Mass/Vol] 229.0 pg/mL Normal <=900.0 [facility] Comment on above: Performed By: #### B LEADER[employer]IP DEVELOPMENT INSTRUCTOR #### [facility] [address] [place] [address] Dr. Jose Rojas CBC AUTO DIFFon 12-31-2021 BASO # 0.1 103/ul Normal 0.0-0.1 [facility] Comment on above: Performed By: #### D ATCBC #### [facility] [address] [place] [address] Dr. Jose Rojas Basophils/100 WBC (Bld) 0.5 % Normal 0.2-2.0 [facility] Comment on above: Performed By: #### D ATCBC #### [facility] [address] [place] [address] Dr. Jose Rojas EO # 0.1 103/ul Normal 0.0-0.7 [facility] Comment on above: Performed By: #### D ATCBC #### [facility] [address] [place] [address] Dr. Jose Rojas Eosinophils/100 WBC (Bld) 1.0 % Normal 0.9-7.0 [facility] Comment on above: Performed By: #### D ATCBC #### [facility] [address] [place] [address] Dr. Jose Rojas Erythrocyte distribution width (RBC) [Ratio] 15.1 % Critically high 11.0-15.0 [facility] Comment on above: Performed By: #### D ATCBC #### [facility] [address] [place] [address] Dr. Jose Rojas Hematocrit (Bld) [Volume fraction] 49.2 % Normal 42.0-54.0 [facility] Comment on above: Performed By: #### D ATCBC #### [facility] [address] [place] [address] Dr. Jose Rojas Hemoglobin (Bld) [Mass/Vol] 16.1 g/dL Normal 14.0-18.0 [facility] Comment on above: Performed By: #### D ATCBC #### [facility] [address] [place] [address] Dr. Jose Rojas IG # 0.07 10e3/ul Critically high 0.00-0.03 [facility] Comment on above: Performed By: #### D ATCBC #### [facility] [address] [place] [address] Dr. Jose Rojas IG % 0.7 % Critically high 0.0-0.5 [facility] Comment on above: Performed By: #### D ATCBC #### [facility] [address] [place] [address] Dr. Jose Rojas LYMPH # 2.1 103/ul Normal 1.2-3.8 [facility] Comment on above: Performed By: #### D ATCBC #### [facility] [address] [place] [address] Dr. Jose Rojas Lymphocytes/100 WBC (Bld) 22.2 % Normal 20.5-60.0 [facility] Comment on above: Performed By: #### D ATCBC #### [facility] [address] [place] [address] Dr. Jose Rojas MANUAL DIFF REQ NO Normal [facility] Comment on above: Performed By: #### D ATCBC #### [facility] [address] [place] [address] Dr. Jose Rojas MCH (RBC) [Entitic mass] 28.0 pg Normal 25.9-34.0 [facility] Comment on above: Performed By: #### D ATCBC #### [facility] [address] [place] [address] Dr. Jose Rojas MCHC (RBC) [Mass/Vol] 32.7 g/dL Normal 29.9-35.2 [facility] Comment on above: Performed By: #### D ATCBC #### [facility] [address] [address] [address] Jose Rojas MCV (RBC) [Entitic vol] 85.6 fL Normal 80.0-94.0 [facility] Comment on above: Performed By: #### D ATCBC #### [facility] [address] [address] [address] Jose Rojas MONO # 1.0 103/ul Critically high 0.3-0.8 [facility] Comment on above: Performed By: #### D ATCBC #### [facility] [address] [address] [address] Jose Rojas Monocytes/100 WBC (Bld) 10.2 % Normal 1.7-12.0 [facility] Comment on above: Performed By: #### D ATCBC #### [facility] [address] [place] [address] Dr. Jose Rojas NEUT # 6.3 103/ul Normal 1.4-6.5 [facility] Comment on above: Performed By: #### D ATCBC #### [facility] [address] [place] [address] Dr. Jose Rojas Neutrophils/100 WBC (Bld) 65.4 % Normal 43.0-75.0 [facility] Comment on above: Performed By: #### D ATCBC #### [facility] [address] [place] [address] Dr. Jose Rojas Platelet mean volume (Bld) [Entitic vol] 9.4 fL Critically low 9.5-13.5 [facility] Comment on above: Performed By: #### D ATCBC #### [facility] [address] [place] [address] Dr. Jose Rojas PLT 353 103/ul Normal 150-450 [facility] Comment on above: Performed By: #### D ATCBC #### [facility] [address] [place] [address] Dr. Jose Rojas RBC 5.75 106/ul Normal 4.70-6.10 [facility] Comment on above: Performed By: #### D ATCBC #### [facility] [address] [place] [address] Dr. Jose Rojas WBC 9.6 103/ul Normal 4.0-11.0 [facility] Comment on above: Performed By: #### D ATCBC #### [facility] [address] [place] [address] Dr. Jose Rojas Covid-19 PCR ([facility])on 12-16 SARS-CoV-2 (COVID-19) RNA PRASHANT+probe Ql (Unsp spec) Not detected Normal NOT DETECTED [facility] Comment on above: Result Comment: When [...] for this test is supported by the Executive Chef of Health and Human Service's declaration that [...] used). Performed By: #### C VDTBH #### [facility] [address] [place] [address] Dr. Jose Rojas PROF CHEM 8 (BAS METB)on Anion gap [Moles/Vol] 14.0 mmol/L [facility] Comment on above: Performed By: #### H TOMMY BMP #### [facility] [address] [place] [address] Dr. Jose Rojas Calcium [Mass/Vol] 9.5 mg/dL Normal 8.5-10.1 [facility] Comment on above: Performed By: #### H TOMMY, BMP #### [facility] [address] [place] [address] Dr. Jose Rojas Chloride [Moles/Vol] 100 mmol/L Normal 98-107 [facility] Comment on above: Performed By: #### H STROPN, BMP #### [facility] [address] [address] [address] Jose Rojas CO2 [Moles/Vol] 26.9 mmol/L Normal 21.0-32.0 [facility] Comment on above: Performed By: #### H STROPN, BMP #### [facility] [address] [address] [address] Jose Rojas Creatinine [Mass/Vol] 1.06 mg/dL Normal 0.70-1.30 [facility] Comment on above: Performed By: #### H STROPN, BMP #### [facility] [address] [place] [address] Dr. Jose Rojas EGFR-AF DOMINICAN >60 Normal >=60 [facility] Comment on above: Performed By: #### H STROPN, BMP #### [facility] [address] [place] [address] Dr. Jose Rojas EGFR-NON AF DOMINICAN >60 Normal >=60 [facility] Comment on above: Performed By: #### H DARIANAPN, BMP #### [facility] [address] [address] [address] Jose Rojas Glucose [Mass/Vol] 152 mg/dL Critically high 74-106 [facility] Comment on above: Performed By: #### H DARIANAPN, BMP #### [facility] [address] [address] [address] Jose Rojas Potassium [Moles/Vol] 3.9 mmol/L Normal 3.5-5.1 [facility] Comment on above: Performed By: #### H STROPN, BMP #### [facility] [address] [place] [address] Dr. Jose Rojas Sodium [Moles/Vol] 137 mmol/L Normal 136-145 [facility] Comment on above: Performed By: #### H STROPN, BMP #### [facility] [address] [place] [address] Dr. Jose Rojas Urea nitrogen [Mass/Vol] 19.0 mg/dL Critically high 7.0-18.0 [facility] Comment on above: Performed By: #### H TOMMY, BMP #### [facility] [address] [place], [place] [address] Dr. Jose Rojas Urea nitrogen/Creatinine [Mass ratio] 17.9 mg/mg Normal [facility] Comment on above: Performed By: #### H TOMMY, BMP #### [facility] [address] [address] [address] Jose Rojas TROPONIN, HIGH SENSITIVITYon 12-31-2021 HSTROP 6144.5 pg/mL Critically high 4.0-76.1 [facility] Comment on above: Result Comment: CUT- OFF POINTS HAVE BEEN ESTABLISHED BASED ON THE FOURTH UNIVERSAL DEFINITIONS OF MYOCARDIAL INFARCTION. THE UPPER REFERENCE LIMIT (URL) OF TROPONIN, DEFINED THE 99TH PERCENTILE OF cTnI DISTRIBUTION IN A REFERENCE POPULATION, HAS BEEN CONFIRMED THE DECISION THRESHOLD FOR [place] DIAGNOSIS. Performed By: #### H TOMMY #### [facility] [address] [address] [address] Jose Rojas HSTROP 142.5 pg/mL Critically high 4.0-76.1 [facility] Comment on above: Result Comment: CUT- OFF POINTS HAVE BEEN ESTABLISHED BASED ON THE FOURTH UNIVERSAL DEFINITIONS OF MYOCARDIAL INFARCTION. THE UPPER REFERENCE LIMIT (URL) OF TROPONIN, DEFINED THE 99TH PERCENTILE OF cTnI DISTRIBUTION IN A REFERENCE POPULATION, HAS BEEN CONFIRMED THE DECISION THRESHOLD FOR [place] DIAGNOSIS. Performed By: #### H TOMMY, BMP #### [facility] [address] [address] [address] Jose Rojas XR CHEST 1 Von [...] by: STORM CONDE Date: 2021-12-31 13:54 Normal [facility] XR LSPINE 2_3 VIEWSon 2021 [...] by: HEAVENLY LOUIS Date: 2021-10-31 08:51 Normal [facility] A1C HEMOGLOBINon 10-21-2021 HbA1c (Bld) [Mass fraction] 7.5 % [email or web address] Other Glucose - FINGER STICKon Glucose [Mass/Vol] 107 mg/dL [email or web address] Other HbA1c (Bld) [Mass fraction]o n 10-21-2021 A1C HEMOGLOBIN [employer] Other Urinalysis - AUTOMATEDon Appearance (U) cloudy [employer] Other Bilirubin Ql (U) Negative [employer] Other Color (U) yellow [email or web address] Other Glucose Ql (U) 500 [employer] Other Hemoglobin Ql (U) moderate [employer] Other Ketones Ql (U) Negative [employer] Other Leukocyte esterase Test strip Ql (U) moderate [email or web address] Other Nitrite Ql (U) Positive [employer] Other pH (U) 6.0 [pH] [email or web address] Other Protein Ql (U) trace [employer] Other Specific gravity (U) [Rel density] 1.025 [email or web address] Other Urobilinogen (U) [Mass/Vol] 0.2 mg/dL [place] [employer] Other Urinalysis - AUTOMATED No rt [employer] Other Urine Cultureon 08-11-2021 Bacteria identified Cx Nom (U) [email or web address] Other A1C HEMOGLOBINon 06-29-2021 HbA1c (Bld) [Mass fraction] 7.4 % [email or web address] Other Glucose - FINGER STICKon Glucose [Mass/Vol] 168 mg/dL [email or web address] Other HbA1c (Bld) [Mass fraction]o n 06-29-2021 A1C HEMOGLOBIN [employer] Other A1C HEMOGLOBINon 03-24-2021 HbA1c (Bld) [Mass fraction] 6.6 % [email or web address] Other Glucose - FINGER STICKon Glucose [Mass/Vol] 171 mg/dL [email or web address] Other HbA1c (Bld) [Mass fraction]o n 03-24-2021 A1C HEMOGLOBIN [employer] Other Vital Signs Date Time Vital Sign Value Performing Clinician Facility 11-01-2023 16:16-0400 Body height 177.8 cm [facility] 11-01-2023 16:16-0400 Body mass index (BMI) [Ratio] 39.2 kg/m2 [facility] 11-01-2023 16:16-0400 Body weight 123.83 kg [facility] 11-01-2023 16:16-0400 Diastolic blood pressure 57 mm[Hg] [facility] 11-01-2023 16:16-0400 Respiratory rate 16 /min [facility] 11-01-2023 16:16-0400 SaO2% (BldA) [Mass fraction] 93 % [facility] 11-01-2023 16:16-0400 Systolic blood pressure 103 mm[Hg] [facility] 10-18-2023 15:43-0400 Body height 177.8 cm [facility] 10-18-2023 15:43-0400 Body mass index (BMI) [Ratio] 39.2 kg/m2 [facility] 10-18-2023 15:43-0400 Body weight 123.94 kg [facility] 10-18-2023 15:43-0400 Diastolic blood pressure 74 mm[Hg] [facility] 10-18-2023 15:43-0400 Heart rate 77 /min [facility] 10-18-2023 15:43-0400 Respiratory rate 12 /min [facility] 10-18-2023 15:43-0400 Systolic blood pressure 119 mm[Hg] [facility] 09-13-2023 13:15-0400 Body mass index (BMI) [Ratio] 39.86 kg/m2 Jian Alberto MD Work Phone: [place] 09-13-2023 13:15-0400 Body weight 126 kg Jian Alberto MD Work Phone: [place] 09-13-2023 13:15-0400 Diastolic blood pressure 71 mm[Hg] Jian Alberto MD Work Phone: [place] 09-13-2023 13:15-0400 Heart rate 72 /min Jian Alberto MD Work Phone: [place] 09-13-2023 13:15-0400 Systolic blood pressure 128 mm[Hg] Jian Alberto MD Work Phone: [place] 08-04-2023 13:51-0400 Body height 177.8 cm Giovanni Mulligan MD Work Phone: [place] 08-04-2023 13:51-0400 Body weight 124.29 kg Giovanni Mulligan MD Work Phone: [place] 07-27-2023 12:44-0400 Respiratory rate 18 /min Pac 6 Work Phone: [place] 07-11-2023 15:26-0400 Body height 177.8 cm [facility] 07-11-2023 15:26-0400 Body mass index (BMI) [Ratio] 39.4 kg/m2 [facility] 07-11-2023 15:26-0400 Body weight 124.73 kg [facility] 07-11-2023 15:26-0400 Diastolic blood pressure 73 mm[Hg] [facility] 07-11-2023 15:26-0400 Heart rate 73 /min [facility] 07-11-2023 15:26-0400 Systolic blood pressure 117 mm[Hg] [facility] 06-21-2023 16:14-0500 Body height 177.8 cm [facility] 06-21-2023 16:14-0500 Body mass index (BMI) [Ratio] 39.4 kg/m2 [facility] 06-21-2023 16:14-0500 Body weight 124.73 kg [facility] 06-21-2023 16:14-0500 Diastolic blood pressure 65 mm[Hg] [facility] 06-21-2023 16:14-0500 Heart rate 70 /min [facility] 06-21-2023 16:14-0500 Respiratory rate 18 /min [facility] 06-21-2023 16:14-0500 SaO2% (BldA) [Mass fraction] 95 % [facility] 06-21-2023 16:14-0500 Systolic blood pressure 109 mm[Hg] [facility] 06-19-2023 13:05-0500 Body weight 124.29 kg Ligia Colmenares MD Work Phone: [place] 06-19-2023 13:05-0500 Diastolic blood pressure 68 mm[Hg] Ligia Colmenares MD Work Phone: [place] 06-19-2023 13:05-0500 Heart rate 68 /min Ligia Colmenares MD Work Phone: [place] 06-19-2023 13:05-0500 Systolic blood pressure 112 mm[Hg] Ligia Colmenares MD Work Phone: [place] 04-19-2023 15:30-0500 Body height 177.8 cm Fahad Ball Other [facility] 04-19-2023 15:30-0500 Body mass index (BMI) [Ratio] 39.91 kg/m2 Fahad Ball Other [facility] [employer] Other 04-19-2023 15:30-0500 Body weight 126.19 kg Fahad Ball Other [facility] [employer] Other 04-19-2023 15:30-0500 Body weight 126.18 kg DO Fahad Ball Work Phone: [facility] 04-19-2023 15:30-0500 Diastolic blood pressure 77 mm[Hg] Fahad Ball Other [facility] 04-19-2023 15:30-0500 Respiratory rate 16 /min Fahad Ball Other [facility] [employer] Other 04-19-2023 15:30-0500 Systolic blood pressure 125 mm[Hg] Fahad Ball Other [facility] 03-22-2023 11:46-0500 Blood Pressure Location Antonia BUSH [facility] 03-22-2023 11:46-0500 Diastolic blood pressure 71 mm[Hg] Antonia BUSH [facility] 03-22-2023 11:46-0500 Heart rate 69 /min Antonia ROXANN [facility] 03-22-2023 11:46-0500 Systolic blood pressure 111 mm[Hg] Antonia BUSH [facility] 03-08-2023 16:15-0500 Body height 177.8 cm Tondra Mapus Other [facility] 03-08-2023 16:15-0500 Body mass index (BMI) [Ratio] 39.65 kg/m2 Tondra Mapus Other [facility] [employer] Other 03-08-2023 16:15-0500 Body weight 125.38 kg Tondra Mapus Other [facility] [employer] Other 03-08-2023 16:15-0500 Body weight 125.37 kg DO Fahad [employer] Work Phone: [facility] 03-08-2023 16:15-0500 Diastolic blood pressure 72 mm[Hg] Tondra Mapus Other [facility] 03-08-2023 16:15-0500 Respiratory rate 18 /min Tondra Mapus Other [facility] [employer] Other 03-08-2023 16:15-0500 SaO2% (BldA) [Mass fraction] 96 % Tondra Mapus Other [facility] [employer] Other 03-08-2023 16:15-0500 Systolic blood pressure 127 mm[Hg] Tondra Mapus Other [facility] 01-20-2023 14:45-0400 Body height 177.8 cm Faahd [employer] Other [email or web address] Other 01-20-2023 14:45-0400 Body mass index (BMI) [Ratio] 39.17 kg/m2 Fahad Ball Other [email or web address] Other 01-20-2023 14:45-0400 Body weight 123.83 kg Fahad Ball Other [email or web address] Other 01-20-2023 14:45-0400 Diastolic blood pressure 74 mm[Hg] Fahad Ball Other [email or web address] Other 01-20-2023 14:45-0400 Respiratory rate 18 /min Fahad Ball Other [email or web address] Other 01-20-2023 14:45-0400 Systolic blood pressure 118 mm[Hg] Fahad Ball Other [email or web address] Other 11-24-2022 15:30-0400 Body height 177.8 cm Tondra Mapus Other [email or web address] Other 11-24-2022 15:30-0400 Body mass index (BMI) [Ratio] 39.22 kg/m2 Tondra Mapus Other [email or web address] Other 11-24-2022 15:30-0400 Body weight 124.01 kg Tondra Mapus Other [email or web address] Other 11-24-2022 15:30-0400 Diastolic blood pressure 65 mm[Hg] Tondra Mapus Other [email or web address] Other 11-24-2022 15:30-0400 Respiratory rate 18 /min Tondra Mapus Other [email or web address] Other 11-24-2022 15:30-0400 SaO2% (BldA) [Mass fraction] 95 % Tondra Mapus Other [email or web address] Other 11-24-2022 15:30-0400 Systolic blood pressure 109 mm[Hg] Tondra Mapus Other [email or web address] Other 10-17-2022 15:30-0400 Body height 177.8 cm Fahad Ball Other [email or web address] Other 10-17-2022 15:30-0400 Body mass index (BMI) [Ratio] 39.6 kg/m2 Fahad Ball Other [email or web address] Other 10-17-2022 15:30-0400 Body weight 125.19 kg Fahad Ball Other [email or web address] Other 10-17-2022 15:30-0400 Diastolic blood pressure 66 mm[Hg] Fahad Ball Other [email or web address] Other 10-17-2022 15:30-0400 Respiratory rate 16 /min Fahad Ball Other [email or web address] Other 10-17-2022 15:30-0400 Systolic blood pressure 108 mm[Hg] Fahad Ball Other [email or web address] Other 08-22-2022 16:30-0400 Body height 177.8 cm Tondra Mapus Other [email or web address] Other 08-22-2022 16:30-0400 Body mass index (BMI) [Ratio] 39.93 kg/m2 Tondra Mapus Other [email or web address] Other 08-22-2022 16:30-0400 Body weight 126.24 kg Tondra Mapus Other [email or web address] Other 08-22-2022 16:30-0400 Diastolic blood pressure 70 mm[Hg] Tondra Mapus Other [email or web address] Other 08-22-2022 16:30-0400 Respiratory rate 18 /min Tondra Mapus Other [email or web address] Other 08-22-2022 16:30-0400 SaO2% (BldA) [Mass fraction] 94 % Tondra Mapus Other [email or web address] Other 08-22-2022 16:30-0400 Systolic blood pressure 111 mm[Hg] Tondra Mapus Other [email or web address] Other 07-18-2022 16:30-0400 Body height 177.8 cm Fahad Ball Other [email or web address] Other 07-18-2022 16:30-0400 Body mass index (BMI) [Ratio] 40.2 kg/m2 Fahad Ball Other [email or web address] Other 07-18-2022 16:30-0400 Body weight 127.1 kg Fahad Ball Other [email or web address] Other 07-18-2022 16:30-0400 Diastolic blood pressure 71 mm[Hg] Fahad Ball Other [email or web address] Other 07-18-2022 16:30-0400 Respiratory rate 16 /min Fahad Ball Other [email or web address] Other 07-18-2022 16:30-0400 Systolic blood pressure 117 mm[Hg] Fahad Ball Other [email or web address] Other 05-19-2022 16:15-0500 Body height 177.8 cm Tondra Mapus Other [email or web address] Other 05-19-2022 16:15-0500 Body mass index (BMI) [Ratio] 40.79 kg/m2 Tondra Mapus Other [email or web address] Other 05-19-2022 16:15-0500 Body weight 128.96 kg Tondra Mapus Other [email or web address] Other 05-19-2022 16:15-0500 Diastolic blood pressure 72 mm[Hg] Tondra Mapus Other [email or web address] Other 05-19-2022 16:15-0500 Respiratory rate 18 /min Tondra Mapus Other [email or web address] Other 05-19-2022 16:15-0500 SaO2% (BldA) [Mass fraction] 93 % Tondra Mapus Other [email or web address] Other 05-19-2022 16:15-0500 Systolic blood pressure 131 mm[Hg] Tondra Mapus Other [email or web address] Other 05-04-2022 16:30-0500 Body height 177.8 cm Fahad Ball Other [email or web address] Other 05-04-2022 16:30-0500 Body mass index (BMI) [Ratio] 41.23 kg/m2 Fahad Ball Other [email or web address] Other 05-04-2022 16:30-0500 Body weight 130.36 kg Fahad Ball Other [email or web address] Other 05-04-2022 16:30-0500 Diastolic blood pressure 82 mm[Hg] Fahad Ball Other [email or web address] Other 05-04-2022 16:30-0500 Respiratory rate 20 /min Fahad Ball Other [email or web address] Other 05-04-2022 16:30-0500 Systolic blood pressure 118 mm[Hg] Fahad Ball Other [email or web address] Other 10-21-2021 14:45-0400 Body height 177.8 cm Tondra Mapus Other [email or web address] Other 10-21-2021 14:45-0400 Body mass index (BMI) [Ratio] 40.31 kg/m2 Tondra Mapus Other [email or web address] Other 10-21-2021 14:45-0400 Body weight 127.46 kg Tondra Mapus Other [email or web address] Other 10-21-2021 14:45-0400 Diastolic blood pressure 70 mm[Hg] Tondra Mapus Other [email or web address] Other 10-21-2021 14:45-0400 Respiratory rate 20 /min Tondra Mapus Other [email or web address] Other 10-21-2021 14:45-0400 SaO2% (BldA) [Mass fraction] 96 % Tondra Mapus Other [email or web address] Other 10-21-2021 14:45-0400 Systolic blood pressure 110 mm[Hg] Tondra Mapus Other [email or web address] Other 08-11-2021 15:15-0400 Body height 177.8 cm Celestina Greene Other [email or web address] Other 08-11-2021 15:15-0400 Body mass index (BMI) [Ratio] 38.74 kg/m2 Celestina Greene Other [email or web address] Other 08-11-2021 15:15-0400 Body temperature 98.2 [degF] Celestina Greene Other [email or web address] Other 08-11-2021 15:15-0400 Body weight 122.47 kg Celestina Greene Other [email or web address] Other 08-11-2021 15:15-0400 Diastolic blood pressure 72 mm[Hg] Celestina Greene Other [email or web address] Other 08-11-2021 15:15-0400 Respiratory rate 18 /min Celestina Greene Other [email or web address] Other 08-11-2021 15:15-0400 SaO2% (BldA) [Mass fraction] 99 % Celestina Greene Other [email or web address] Other 08-11-2021 15:15-0400 Systolic blood pressure 123 mm[Hg] Celestina Greene Other [email or web address] Other 06-29-2021 15:30-0400 Body height 177.8 cm Yamilex Foster Other [email or web address] Other 06-29-2021 15:30-0400 Body mass index (BMI) [Ratio] 40.89 kg/m2 Tona Palomous Other [email or web address] Other 06-29-2021 15:30-0400 Body weight 129.28 kg Tondra Mapus Other [email or web address] Other 06-29-2021 15:30-0400 Diastolic blood pressure 75 mm[Hg] Tondra Mapus Other [email or web address] Other 06-29-2021 15:30-0400 Respiratory rate 20 /min Tondra Mapus Other [email or web address] Other 06-29-2021 15:30-0400 SaO2% (BldA) [Mass fraction] 95 % Tondra Mapus Other [email or web address] Other 06-29-2021 15:30-0400 Systolic blood pressure 126 mm[Hg] Tondra Mapus Other [email or web address] Other 03-24-2021 16:15-0500 Body height 177.8 cm Tondra Mapus Other [email or web address] Other 03-24-2021 16:15-0500 Body mass index (BMI) [Ratio] 40.89 kg/m2 Tondra Mapus Other [email or web address] Other 03-24-2021 16:15-0500 Body weight 129.28 kg Tondra Mapus Other [email or web address] Other 03-24-2021 16:15-0500 Diastolic blood pressure 67 mm[Hg] Tondra Mapus Other [email or web address] Other 03-24-2021 16:15-0500 Respiratory rate 20 /min Tondra Mapus Other [email or web address] Other 03-24-2021 16:15-0500 SaO2% (BldA) [Mass fraction] 97 % Tondra Mapus Other [email or web address] Other 03-24-2021 16:15-0500 Systolic blood pressure 115 mm[Hg] Tondra Mapus Other [email or web address] Other 01-06-2021 15:00-0400 Body height 177.8 cm Tondra Mapus Other [email or web address] Other 01-06-2021 15:00-0400 Body mass index (BMI) [Ratio] 39.81 kg/m2 Tondra Mapus Other [email or web address] Other 01-06-2021 15:00-0400 Body weight 125.87 kg Tondra Mapus Other [email or web address] Other Encounters Encounter Date Encounter Type Care Provider Facility Start: 01-15-2024 End: 01-15-2024 Telephone encounter Jada Wilkins APRN.CNP Work Phone: Urology Start: 11-01-2023 End: 11-01-2023 ambulatory [facility] Work Phone: Start: 11-01-2023 End: 11-01-2023 Patient encounter procedure [facility] Work Phone: Start: 10-18-2023 End: 10-18-2023 ambulatory [facility] Work Phone: Start: 10-18-2023 End: 10-18-2023 Encounter for general adult medical examination without abnormal findings [facility] Start: 10-18-2023 End: 10-18-2023 Patient encounter procedure [facility] Work Phone: Start: 10-04-2023 Telephone encounter Jada rivero [employer] Work Phone: Urology Start: 09-13-2023 End: 09-13-2023 ambulatory Jian Alberto MD Work Phone: Urology Start: 09-13-2023 End: 09-13-2023 Patient encounter procedure Jian Alberto MD Work Phone: Urology Comment on above: Acquired buried peni s (Primary Dx); Scarring of penis Start: 08-04-2023 End: 08-04-2023 Patient encounter procedure Giovanni Mulligan MD Work Phone: Urology Comment on above: Acquired buried peni s (Primary Dx) Start: 08-04-2023 End: 08-04-2023 ambulatory GIOVANNI MULLIGAN Facility:[facility] Start: 07-28-2023 End: 07-29-2023 ambulatory JIAN ALBERTO Facility:[facility] Start: 07-27-2023 Non-patient / Non-visit [facility] Work Phone: Start: 07-27-2023 End: 07-27-2023 Admission to establishment [facility] 6 Work Phone: [facility] Start: 07-27-2023 End: 07-27-2023 Preprocedural examination done Pacc Main 6 Work Phone: [place] Work Phone: Start: 07-27-2023 End: 07-27-2023 ambulatory [facility] Main 6 Work Phone: Pre Anesthesia Comment on above: Pre-operative examin ation (Primary Dx); Primary hypertension; Hyperlipidemia, unspecified hyperlipidemia type; 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; Chronic systolic CHF (congestive heart failure) ([facility]); Paroxysmal atrial fibrillation (HCC); Gastroesophageal reflux disease, unspecified whether esophagitis present; Type 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 with other specified complication, with long-term current use of insulin (HCC); Class 2 obesity due to excess calories without serious comorbidity with body mass index (BMI) of 39.0 to 39.9 in adult Start: 07-27-2023 Encounter for other preprocedural examination FAHAD ACEVES [facility] Start: 07-18-2023 Telephone encounter Noy garcia RN Work Phone: Urology 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 Start: 07-11-2023 End: 07-11-2023 ambulatory [facility] Work Phone: Start: 07-11-2023 End: 07-11-2023 Patient encounter procedure [facility] Work Phone: Start: 06-21-2023 End: 06-21-2023 Patient encounter procedure [facility] Work Phone: Start: 06-19-2023 End: 06-19-2023 Patient encounter procedure Ligia Colmenares MD Work Phone: Cardiology Comment on above: Coronary artery dise ase involving wiyot coronary artery of wiyot heart, unspecified whether angina present (Primary Dx); History of non-ST elevation myocardial infarction (NSTEMI); Hx of CABG; Primary hypertension; Other hyperlipidemia Start: 06-19-2023 End: 06-19-2023 ambulatory LIGIA COLMENARES M.D. 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 Start: 05-03-2023 End: 05-03-2023 ambulatory Jian Alberto MD Work Phone: Urology Start: 05-02-2023 End: 05-02-2023 ambulatory Yarelis Santacruz Other [email or web address] Other Start: 05-02-2023 Office outpatient vi sit 10 minutes Yarelis Santacruz [facility] Start: 05-02-2023 End: 05-02-2023 Patient encounter procedure DO Fahad Aceves Work Phone: [facility]- Start: 04-19-2023 End: 04-19-2023 ambulatory Fahad Aceves Other [email or web address] Other Start: 04-19-2023 Office outpatient vi sit 25 minutes Fahad Yola [facility] Start: 04-19-2023 End: 04-19-2023 Patient encounter procedure DO Fahad Aceves Work Phone: [facility] Work Phone: Start: 03-30-2023 End: 03-30-2023 ambulatory Yarelis Santacruz Other [email or web address] Other Start: 03-30-2023 Telephone encounter Yarelis Begum [facility] Start: 03-28-2023 End: 03-28-2023 ambulatory Yarelis Santacruz Other [email or web address] Other Start: 03-28-2023 Office outpatient vi sit 15 minutes Yarelis Santacruz [facility] Start: 03-22-2023 End: 03-22-2023 ambulatory TONA K PALOMOUS Facility:[facility] Start: 03-22-2023 End: 03-22-2023 Patient encounter procedure Antonia BUSH [facility] Start: 03-08-2023 End: 03-08-2023 Discharged Recurring DO Fahad Aceves [facility] Work Phone: Start: 03-08-2023 (DM) Diabetes Tondra Bull [facility] Start: 03-08-2023 End: 03-09-2023 ambulatory DO Fahad Aceves Work Phone: [email or web address] Other Start: 03-08-2023 End: 03-08-2023 Patient encounter procedure DO Fahad Aceves Work Phone: [facility] Work Phone: Start: 02-22-2023 End: 02-22-2023 ambulatory Yarelis Santacruz Other [email or web address] Other Start: 02-22-2023 Office outpatient vi sit 15 minutes Yarelis Santacruz [facility] Start: 01-20-2023 End: 01-20-2023 ambulatory Fahad Aceves Other [email or web address] Other Start: 01-20-2023 Office outpatient vi sit 15 minutes Fahad Aceves [facility] Start: 12-09-2022 End: 12-09-2022 ambulatory Tondra Mapus Other [email or web address] Other Start: 12-09-2022 Telephone encounter Tondra Mapus [facility] Start: 11-25-2022 ambulatory TONDRA MAPUS Facility[facility] [place] [facility] Start: 11-24-2022 (DM) Diabetes Tondra Mapus [facility] Start: 11-24-2022 End: 11-24-2022 ambulatory Tondra Mapus Other [email or web address] Other Start: 11-24-2022 Telephone encounter Tondra Mapus [facility] Start: 10-17-2022 End: 10-17-2022 ambulatory Fahad Aceves Other [email or web address] Other Start: 10-17-2022 Encounter for genera l adult medical examination without abnormal findings Fahad Aceves [facility] Start: 10-17-2022 Periodic preventive med est patient 40-64yrs Fahad Aceves [facility] Start: 09-05-[address] FAHAD ACEVES Facili ty:[facility] Start: 08-24-2022 End: 08-25-2022 ambulatory DAMIAN MATHUR Facility:[facility] Start: 08-22-2022 (DM) Diabetes Tondra Mapus [facility] Start: 08-22-2022 End: 08-22-2022 ambulatory Tondra Mapus Other [email or web address] Other Start: 07-18-2022 End: 07-18-2022 ambulatory Fahad Aceves Other [email or web address] Other Start: 07-18-2022 Office outpatient vi sit 15 minutes Fahad Aceves [facility] Start: 05-19-2022 (DM) Diabetes Tondra Mapus [facility] Start: 05-19-2022 End: 05-19-2022 ambulatory Tondra Mapus Other [email or web address] Other Start: 05-04-2022 End: 05-04-2022 ambulatory Fahad Aceves Other [email or web address] Other Start: 05-04-2022 Office outpatient vi sit 25 minutes Fahad Aceves [facility] Start: 04-19-2022 End: 05-04-[address] FAHAD ACEVES Facility:[facility] Start: 04-05-2022 End: 04-06-[address] FAHAD ACEVES Facility:[facility] Start: 03-30-2022 End: 03-31-[address] FAHAD ACEVES Facility:[facility] Start: 02-24-2022 End: 02-25-[address] FAHAD ACEVES Facility:[facility] Start: 02-17-2022 End: 04-19-[address] FAHAD ACEVES Facility:[facility] Start: 02-16-2022 End: 02-17-[address] FAHAD ACEVES Facility:[facility] Start: 02-14-2022 End: 02-14-2022 ambulatory Tondra Mapus Other [email or web address] Other Start: 02-14-2022 Telephone encounter Tondrdelano Culverus [facility] Start: 02-11-2022 End: 02-11-2022 ambulatory DO Fahad Aceves Work Phone: [facility] Work Phone: Start: 02-11-2022 End: 02-11-2022 Patient encounter procedure DO Fahad Aceves Work Phone: [facility] [place] Start: 02-10-2022 End: 02-11-[address] SIMBA KASPER Facility:[facility] Start: 02-01-2022 Registered Recurring DO Rodriguez in [place] Work Phone: [facility] Start: 02-01-2022 End: 02-01-2022 ambulatory Tondra Mapus Other [email or web address] Other Start: 02-01-2022 Telephone encounter Tondra Mapus [facility] Start: 01-07-[address] FAHAD ACEVES Facili ty:[facility] Start: 12-31-2021 End: 12-31-2021 ambulatory DARNELL OVALLE Facility:[facility] Start: 12-16-2021 ambulatory DAMIAN MATHUR Faci lity:[facility] Start: 11-15-2021 End: 01-01-[address] FAHAD ACEVES Facility:[facility] Start: 10-29-2021 End: 10-30-[address] FAHAD ACEVES Facility:[facility] Start: 10-21-2021 (DM) Diabetes Tondra Mapus [facility] Start: 10-21-2021 End: 10-21-2021 ambulatory Tondra Mapus Other [email or web address] Other Start: 09-09-2021 End: 09-10-2021 ambulatory DAMIAN MATHUR Facility:[facility] Start: 08-11-2021 End: 08-11-2021 ambulatory Celestina Greene Other [email or web address] Other Start: 08-11-2021 Office outpatient vi sit 25 minutes Celestina Greene [facility] Start: 06-29-2021 (DM) Diabetes Tondra Mapus [facility] Start: 06-29-2021 End: 06-29-2021 ambulatory Tondra Mapus Other [email or web address] Other Start: 05-12-2021 End: 05-12-2021 ambulatory Tondra Mapus Other [email or web address] Other Start: 05-12-2021 [facility] Start: 05-04-2021 End: 05-04-2021 ambulatory Tondra Mapus Other [email or web address] Other Start: 05-04-2021 [facility] Start: 03-24-2021 (DM) [facility] Start: 03-24-2021 End: 03-24-2021 ambulatory Tondra Mapus Other [email or web address] Other Start: 01-06-2021 Nursing evaluation o f patient and report [facility] Procedures Date Procedure Procedure Detail Performing Clinician Start: 06-19-2023 Ecg routine ecg w/le ast 12 lds i&r only Ligia Colmenares MD Work Phone: Start: 05-03-2023 Urnls dip stick/tabl et rgnt auto w/o microscopy Bulk Order Provider Start: 12-16-2021 Coronary artery bypa ss grafts x 5 Antonia BUSH Coronary artery bypa ss graft Fahad Aceves Other History of coronary artery bypass grafting Hx of CABG Ligia Colmenares MD Work Phone: Plan of Treatment Date Care Activity Detail Author Start: 09-12-2024 BP Controlled (<130/80) BP Controlle d (<130/80) [place] Start: 07-26-2024 BP Controlled (<130/80) BP Controlle d (<130/80) [place] Start: 02-14-2024 End: 02-14-2024 Patient encounter procedure 02/14/2024 10:15 AM EDT Office Visit Urology [address] [id number] Jian Alberto MD [address] [place] [address] 5 month f/u ED per cc chart Urology Comment on above: 5 month f/u ED per c c chart Start: 01-26-2024 Hemoglobin A1c measurement HbA1C [place] Start: 12-17-2023 Covid-19 Vaccine () Covid-19 Vaccine () [place] Start: 12-17-2023 [facility] Start: 04-17-2023 Behavioral Health Screening Behavioral Health Screening [place] Start: 04-17-2023 Depression Assessment Depression Ass essment [place] Start: 01-01-2023 Hepatitis B surface antibody level LDL Cholesterol [place] Start: 12-16-2022 Covid-19 Vaccine ( season) Covid-19 Vaccine () [place] Start: 12-16-2022 Influenza vaccination Influenza Vacc ine (#1) [place] Start: 07-04-2022 Hemoglobin A1c measurement HbA1C [place] Start: 2022 RSV Vaccine (1 - 1-d ose 60+ series) RSV Vaccine (1 - 1-dose 60+ series) [place] Start: 2022 RSV Vaccine (1 - Ris k 60-74 years 1-dose series) RSV Vaccine (1 - Risk 60-74 years 1-dose series) [place] Start: 2017 Prostate specific antigen measurement Prostate Cancer Screening Discussion [place] Start: 01-11-2012 Shingrix Vaccine (1 of 2) Shingrix Vaccine (1 of 2) [place] Start: 2007 Screening for malign ant neoplasm of colon [place] Start: 1981 Urine microalbumin profile DTaP,Tdap,Td Vaccine (1 - Tdap) [place] Start: 01-11-1980 Annual PCP Team 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 Ruffer tennille Disease Visit Annual PCP Team Chronic Disease Visit [place] Start: 01-11-1980 Anxiety Screening Anxiety Screening [place] Start: 01-11-1980 Depression Screening Depression Scre ening [place] Start: 01-11-1980 Hepatitis C screening Hepatitis C Sc francois [place] Start: 01-11-1980 HIV screening HIV Screening [facility] Start: 01-11-1972 Diabetic foot examination Diabetic Foot Exam [place] Start: 01-11-1972 Glaucoma screening Dilated Retinal E xam [place] Start: 01-11-1972 Hepatitis B screening Urine Al bumin:Creatinine Ratio [place] Start: 01-11-1968 Pneumococcal vaccination Pneumococcal Vaccine (1 of 2 - PCV) [place] Start: 1962 Covid-19 Vaccine (#1) Covid-19 Vacci ne (#1) [place] Patient Education Diabetes and diet [facility] Work Phone: URINALYSIS, REFLEX MICROSCOPIC URINALYSIS, REFLEX MICROSCOPIC Lab Routine Screening for genitourinary condition Ordered: 09/13/2023 [facility] Work Phone: Comment on above: Ordered: 09/13/2023 [place] [facility] Immunization Date Immunization Notes Care Provider Sam brenner 02-24-2022 COVID-19 Pfizer (bivalent) Fahad Aceves Other [facility] 03-23-2021 COVID-19 Vaccine Pfi zer - Documentation Purposes Only Fahad Aceves Other [facility] 08-03-2020 COVID-19 Vaccine Pfi zer - Documentation Purposes Only Fahad Aceves Other [facility] 07-13-2020 COVID-19 Vaccine Pfi zer - Documentation Purposes Only Fahad Aceves Other [facility] Payers Date Payer Category Payer Unknown [id number] 2015 Private Health Insurance [facility] UMR CHOICE PLUS [id number] 2015-Present [phone] [address] [address] [place] [address] HMO [id number] 1960 Unknown [id number] 2.16.840.1.409977.3.579 .2.593 1960 Unknown [id number] 2.16.840.1.019060.3.579 .2.593 1962 Unknown [id number] 2.16.840.1.240839.3.579 .2.593 1962 Unknown [id number] 2.16.840.1.237779.3.579 .2.593 1962 Unknown [id number] 2.16.840.1.333378.3.579 .2.593 1962 Unknown [id number] 2.16.840.1.429211.3.579 .2.593 1962 Unknown [id number] 2.16.840.1.375972.3.579 .2.593 1962 Unknown [id number] 2.16.840.1.321025.3.579 .2.593 1962 Unknown [id number] 2.16.840.1.668652.3.579 .2.593 1962 Unknown [id number] 2.16.840.1.589123.3.579 .2.593 1962 Unknown [id number] 2.16.840.1.267049.3.579 .2.593 1962 Unknown [id number] 2.16.840.1.119330.3.579 .2.593 1962 Unknown [id number] 2.16.840.1.173357.3.579 .2.593 1962 Unknown [id number] 2.16.840.1.620888.3.579 .2.593 1962 Unknown [id number] 2.16.840.1.367706.3.579 .2.593 1959 Self-pay [id number] 1959 Unknown [id number] 2.16.840.1.344252.19 Unknown [id number] 2.16.840.1.922021.3.579 .2.593 Unknown [id number] 2.16.840.1.978899.3.579 .2.531 Social History Date Type Detail Facility Unknown if ever smoked [email or web address] Other Start: 05-03-2023 End: 08-04-2023 Sex Assigned At [facility] Start: 1960 Sex Assigned At Male [facility] Start: 03-22-2023 End: 05-03-2023 Tobacco smoking status Never smoked tobacco (finding) [facility] Start: 05-03-2023 Tobacco use and exposure Smokeless tobacco non-user [place] Start: 05-03-2023 End: 08-04-2023 History of Social function [place] Start: 1960 Sex Assigned At [facility] file [facility] Start: 07-27-2023 End: 09-13-2023 Alcohol intake Current drinker of alcohol (finding) [place] Medical Equipment Procedure Code Equipment Code Equipment Original Text Equi pment Identifier Dates Functional Status Date Assessment Result Facility 03-22-2023 Functional Status N/A [facility] Clinical Notes 01-06-2021 to 01-15-2024 Telephone Encounter - Jada Wilkins APRN.CNP - 01/15/2024 2:53 PM EDTTelephone Encounter - Jada Wilkins APRN.CNP - 01/15/2024 2:53 PM Jain Renee MD - 09/13/2023 1:27 PM EDT Note Date & Type Note Facility 01-15-2024 Telephone encounter Note See previous telephone encounter from 10/04/2023. Keflex has been on auto refill, and [facility] has already been asked to [facility] this request. Jada Wilkins APRN.CNP [place] Work Phone: 01-15-2024 Telephone encounter Note ----- Message from Kourtney Sena sent at 01/15/2024 9:13 AM EDT ----- Regarding: [facility] medication [facility] [place] [facility] a refill request for Cephalexin - it is not on his current med list. Please advise and thank you, Kourtney [place] 01-15-2024 Miscellaneous Notes See previous telephone encounter from 10/04/2023. Keflex has been on auto refill, and [facility] has already been asked to [facility] this request. Jada Wilkins APRN.CHUY ----- Message from Kourtney Sena sent at 01/15/2024 9:13 AM EDT ----- Regarding: Refill medication [facility] [place] [facility] a refill request for Cephalexin - it is not on his current med list. Please advise and thank you, Kourtney documented in this encounter [place] 01-15-2024 Note PharmD Cardiology Co nsult - Lipids Provider: Dr. Kasper Department: [facility] Cardiology Caden Wills is a 64 [...] for PCSK9. Rx will be sent to [facility] to determine coverage and provide education to patient. Recommendation: Complete updated lipid panel, ApoB, and Lp(a) prior to initiation of PCSK9 to assess ASCVD risk. Will call patient to get labs drawn. 01/15/2024: Left voicemail, requested call back. Follow-up: Labs to be completed; PCSK9 coverage Treatment plan and management of the patient was discussed with Dr. Kasper prior to implementation. Caroline Silva PharmD Cardiology Outpatient Clinical Pharmacist 01/15/2024 [facility] 01-15-2024 Note Patient returned king l; will complete labs by end of the week. Requested call back on Sunday 01/21 for follow-up. Orders placed. Caroline Silva PharmD Cardiology Outpatient Clinical Pharmacist 01/16/2024 [facility] 10-04-2023 Telephone encounter Note Keflex was prescribed for 1 month after buried penis surgery on 07/28/2023. Called Caden Wills. He reports trying to cancel refill request [facility] with [facility] but was unsuccessful. Denies concerns about infection. Reminded him that he should follow up with Dr. Alberto in the fall. Left voicemail at [facility] in [place], advising that Caden Murrayill does NOT need refill on Keflex and asking them to take it off auto refill. Jada Wilkins APRN.[employer] M[employer]ER [place] Work Phone: 10-04-2023 Miscellaneous Notes Keflex was prescribed for 1 month after buried penis surgery on 07/28/2023. Called Caden Wills. He reports trying to cancel refill request for [facility] but was unsuccessful. Denies concerns about infection. Reminded him that he should follow up with Dr. Alberto in the fall. [facility] [place], advising that Caden Wills does NOT need [...] thank you, Kourtney documented in this encounter [place] 10-04-2023 Telephone encounter Note ----- Message from Kourtney Hodge Patient Service Spec sent at 10/04/2023 7:36 AM EDT ----- Regarding: Medication refill [facility]ill request for Cephalexin 500 mg- it is not listed in his med list . Please advise and thank you, Kourtney [place] 09-13-2023 Note HNO ID: [id number] Author: JIAN ALBERTO MD Service: ? Author [...] tablet Take 20 mEq by mouth. omega 6-nei-fti-fish oil (FISH OIL) 100-160-1,000 mg cap Take [...] the fall for recheck. Jian Alberto MD [facility] 09-13-2023 History of Presen t illness Narrative [...] tablet Take 20 mEq by mouth. omega 3-eua-obo-fish oil (FISH OIL) 100-160-1,000 mg cap Take [...] Jian Alberto MD documented in this encounter [place] 09-13-2023 Note Patient Outreach (UR OLMN) CADEN WILLS ([id number]) 1960 M Date Time Provider Department 09/13/23 JIAN ALBERTO UROZANDERN During your visit today, we recorded the following information about you: Allergies As of Date: 09/13/2023 (No Known Allergies) Date Reviewed: 09/13/2023 Reviewed by: Rafal Mulligan MA - Fully Assessed Visit Diagnosis:Screening for genitourinary condition [Z13.89] Order(s):URINALYSIS, REFLEX MICROSCOPIC [[id number]] Order #: [id number] Prescriptions as of 09/18/2023 - amiodarone (PACERONE) [...] Take 20 mEq by mouth. - omega 6-yvb-vnq-fish oil (FISH OIL) 100-160-1,000 mg cap Take [...] excess calories without *07/27/2023 Encounter Status:Closed by IDEA SPHERE, PRODUSER on 09/18/23 [facility] 08-04-2023 History of Presen t illness Narrative [...] Prosthetic Surgery Fellow documented in this encounter [place] 08-04-2023 Note HNO ID: [id number] Author: GIOVANNI MULLIGAN MD Service: ? Author [...] Male Genitourinary Reconstruction AND Prosthetic Surgery Fellow [facility] 07-29-2023 Note HNO ID: [id number] Author: GRAZYNA PURDY MD Service: Urology Author Type: Resident Type: Progress Notes Filed: 07/29/2023 08:41 Note Text: [facility] UROLOGY PROGRESS NOTE Name: Caden Wills Bed: Main - Periop OR/Main - * Date: 07/29/2023 After Hours [facility] Urology Service Pager: [phone] ASSESSMENT AND PLAN Caden Wills is a [...] SSI inpatient Grazyna Purdy MD Urology Resident [facility] Urologic [facility] [place] Pager [phone] For weekend or after hours issues [place] [phone] 6:53 AM 07/29/2023 Subjective SUBJECTIVE - See [...] 82 Imaging All relevant recent imaging reviewed [facility] 07-28-2023 Note HNO ID: [id number] Author: JUICE GEE MD Service: Urology Author Type: Resident Type: Progress Notes Filed: 07/28/2023 16:17 Note Text: [facility] UROLOGY PROGRESS NOTE Name: Caden Wills Bed: Main - Periop OR/Main - * Date: 07/28/2023 After Hours [facility] Urology Service Pager: [phone] ASSESSMENT AND PLAN Caden Wills is a [...] SSI inpatient Juice Gee MD Urology Resident [place] Pager [phone] For weekend or after hours issues please page the on-call urology pager [phone] 07/28/2023 4:16 PM Subjective SUBJECTIVE - See [...] 25 BUN 16 17 CREAT 0.75 0.73 [facility]* 82 Imaging All relevant recent imaging reviewed [facility] 07-28-2023 Note HNO ID: [id number] Author: JEFFY MARTINEZ SRNA Service: ? 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 Alberto has scheduled you for your procedure at this surgery center: Main [place] Scheduling Office: [phone] --[address] [place] [address]. Please read below carefully for your personalized [...] not take the day of surgery omega 1-yst-ptf-fish oil (FISH OIL) 100-160-1,000 mg cap Do [...] or other anticoagulants without consulting with your contract accountant or prescribing physician. - Stop Vitamin E, [...] Procedures: - YOU MUST HAVE A RESPONSIBLE SPUD SORTER TAKE YOU HOME. A RESIDENT CARE PROVIDER OR SUPERINTENDENT MARINE OIL TERMINAL CANNOT BE MADE A RESPONSIBLE SPUD SORTER. - We recommend that a responsible person [...] call the Monday before. Your surgeon s digital product manager will tell you what time to call the office. - If you have not reached the departmental digital product manager by 5 P.M., call [phone] after 5 P.M. the day before your surgery. Please be aware that emergency situations arise, which may delay or change your surgical time. If this happens, we will notify you as soon as possible and regret any inconvenience. If you already have an Advance Directive, please fax a copy to [phone] or email to for it to be [...] into your chart that day. Kevin Goldsmith APRN.CNP documented in this encounter [place] 07-27-2023 History and physical note Images from [...] artery disease involving coronary bypass graft of wiyot heart without angina pectoris CAD, hx of [place] s/p CABG x 5 in Dec 2021. [...] cardiac events (< 1% chance of , [place], CHF, malignant ventricular arrhythmias or high grade AV block) and I would recommend proceeding ahead with the circumcision surgery as planned. Patient denies recent chest pain, palpitations, shortness of breath. Endorses good functional capacity (5.5+ METs). Chronic systolic CHF (congestive heart failure) ([facility]) Echo in Dec 2021 showed EF 35% Stable on Entresto 24-26 mg BID and Spironolactone 25 mg daily. Cardiology note 06/19/23 notes the following, Echo 03/30/22 ([facility]) - Global LV systolic function is difficult [...] have a large neck STOP-Bang Score: 5 [id number] Score: Age: <65 Sex: male CHF history: Yes Hypertension history: Yes Stroke/TIA/thromboembolism history: No Vascular disease history: Yes Diabetes history: Yes [id number] Score: 4 ARISCAT Score: Age: 51-80 Preoperative [...] Artery Disease Involving Coronary Bypass Graft of [place] Heart Without Angina Pectoris Chronic Systolic Chf [...] 20 mEq by mouth. Taking Yes omega 3-kka-crj-fish oil (FISH OIL) 100-160-1,000 mg cap Take [...] 414 QTC Calculation (Bazett) 440 Calculated P [place] 53 Calculated R [place] 20 Calculated T [place] 86 Impression NORMAL SINUS RHYTHM LOW VOLTAGE QRS NONSPECIFIC ST ABNORMALITY ABNORMAL ECG Confirmed by LIGIA COLMENARES M.D. ([id number]), publications editor Lainey Agee ([id number]) on 06/19/2023 2:11:39 PM 03/30/2022 Echo- [facility] Global LV systolic function is difficult to [...] PM PAGER/CONTACT #: documented in this encounter [place] 07-18-2023 Miscellaneous Notes Called and spoke to Caden Wills regarding pre op issues. Instructed patient to take last dose of Farxiga on 07/23. Informed patient that his case is currently scheduled as first round with a 6:00 arrival time at [facility]. States that he will be going home after pre ops on 07/26 and coming back the following day. No other questions or concerns expressed. Noy Mary RN documented in this encounter [place] 06-19-2023 History of Presen t illness Narrative Images from the original note were not included. [facility] Heart and Vascular [place] Rob Borden Department of Cardiovascular Medicine SECTION [...] or moving heavy furniture (8.00 METs). 12/06/2022 Roybn Miller Cardiology- [facility] Pleasant 62-year-old man with prior history of [...] 1 tablet by mouth every afternoon. omega 8-vst-wug-fish oil (FISH OIL) 100-160-1,000 mg cap Take [...] JVD, carotids well felt, no bruits. CARDIAC: Victoria palpable in the 5th intercostal space mid [...] reviewed from the reports only: 03/30/2022 Echo- [facility] Global LV systolic function is difficult to [...] upper normal limits in size. 01/07/2022 CABGx5- [facility] CABG X 5; CPB; LEFT LEG VEIN HARVEST; INTRAOP FREDI Coronary artery bypass grafting x5, AGARWAL to LAD, saphenous vein graft to diagonal and obtuse marginal branches, and saphenous vein graft to PDA and right posterolateral ventricular branch. 01/05/2022 Cardiac Cath- [facility] Mid RCA lesion is 99% stenosed. Prox [...] infiltrated over the right radial artery. A 6-Pashto Terumo Glidesheath slender was placed in right radial artery. Radial anti-vasospasm cocktail of verapamil 2.5 mg and nitroglycerin 200 mcg was administered through the sheath. All catheter exchanges were made over the [employer] Torque guidewire. JL3.5 was used to engage [...] 1. Perioperative Cardiac Risk Assessment: Mr. Caden Wills'arabella Is to undergo circumcision surgery which is [...] cardiac events (< 1% chance of , [place], CHF, malignant ventricular arrhythmias or high grade [...] the patient follows up with an outside contract accountant. 5. Diabetes mellitus: Managed by PCP. 6. [...] the follow up visit. Ligia Colmenares MD, [facility] CC: To use this Smartlink, specify the provider ID whose address you want to display, e.g., .PROVADDR[1 (where 1 is the provider ID). documented in this encounter [place] 06-19-2023 Note HNO ID: [id number] Author: LIGIA COLMENARES MD Service: ? Author Type: Physician Type: Progress Notes Filed: 06/19/2023 13:23 Note Text: [facility] Heart and Vascular [place] Rob Borden Department of Cardiovascular Medicine SECTION [...] furniture (8.00 METs). 12/06/2022 Robyn Miller Cardiology- [facility] HPI Pleasant 62-year-old man with prior history [...] 1 tablet by mouth every afternoon. omega 0-pnc-aaa-fish oil (FISH OIL) 100-160-1,000 mg cap Take [...] JVD, carotids well felt, no bruits. CARDIAC: Victoria palpable in the 5th intercostal space mid clavicular line, (more content not included)... [facility] 06-19-2023 Note [place] Cardiology - [facility] Subjective Caden Wills is a [...] Chest pain NSTEMI (non-ST elevated myocardial infarction) ([facility]) Obesity Diabetes mellitus, type II, insulin dependent (CMS/HCC) Respiratory insufficiency Hypomagnesemia Hypertension Hyperlipidemia Postoperative atrial fibrillation (CMS/HCC) Coronary artery disease involving wiyot coronary artery of wiyot heart without angina pectoris Chronic systolic heart [...] and time. Psychiatric: (more content not included)... [facility] 06-14-2023 Miscellaneous Notes error documented in this encounter [place] 06-14-2023 Miscellaneous Notes Called Caden Wills and LVM to confirm surgery date of 07/[address] Alberto. Discussed pre op testing on 07/26 in [place], or he could make two trips. Asked him to confirm Asked patient to confirm receipt, and voice any questions or concerns. Number provided. Noy Mary RN documented in this encounter [place] 05-03-2023 Note HNO ID: [id number] Author: JIAN ALBERTO MD Service: ? Author Type: Physician Type: Progress Notes Filed: 05/03/2023 14:28 Note Text: [facility] NEW PATIENT HISTORY AND PHYSICAL EXAM PATIENT INFO: Caden Wills 63 year old REFERRING M.D.: Antonia Bush MD [address] [place] [id number] This consult was requested by Dr. Bush for an opinion regarding buried penis and erectile dysfunction, and my final recommendations will be communicated to the requesting health care provider by way of the shared medical record for internal providers or letter via the [employer] for external providers. 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 , interested in future sexual life. MEDICATIONS: [...] of the sc (more content not included)... [facility] 05-03-2023 Note Patient Outreach (UR OLMN) CADEN WILLS ([id number]) 1960 M Date Time Provider Department 05/03/23 JIAN ALBERTO During your visit today, we recorded the following information about you: Allergies As of Date: 05/03/2023 (No Known Allergies) Date Reviewed: 05/03/2023 Reviewed by: Claudia Burt OCCA - Fully Assessed Visit Diagnosis:Screening for genitourinary condition [Z13.89] Order(s):URINALYSIS, REFLEX MICROSCOPIC [[id number]] Order #: [id number]. #:[id number] Prescriptions as of 05/08/2023 - metFORMIN ER [...] tablet by mouth every afternoon. - omega 3-tjk-tkr-fish oil (FISH OIL) 100-160-1,000 mg cap Take 1,000 mg by mouth. - bumetanide (BUMEX ORAL) Take by mouth. 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 Progress activity as tolerated [email or web address] Other 01-03-2024 Evaluation note* Encounter Date Diagnosis [...] are maintaining regular scheduled appts with their contract accountant. Post operative AF Amiodarone and Eliquis d/c [...] Referred to [facility] for evaluation and treatment [email or web address] Other 12-12-2023 Evaluation note* Encounter Date Diagnosis Assessment Notes Treatment Notes Treatment Clinical Notes Mar, Subungual hematoma of finger of right hand, initial encounter (ICD-10 - S60.10XA) Patient instructed on washing with soap and applying ointment to help soften scab area. [email or web address] Other 12-06-2023 Hospital Discharge instructions Patient Education [...] Follow these instructions at home: Medicines Take mhqa-xdj-zhihbiu and prescription medicines only as told by [...] provider. Document Revised: 06/30/2021 Document Reviewed: 06/30/2021 [employer] Patient Education 2022 [place]. Follow Up Care 11/25/2022 08:22:24 With:ROXANN BARR, Antonia Sharma, URL Address: [address] [place], [place] [id number]- When: Unknown [facility] 11-22-2023 Evaluation note* Encounter Date Diagnosis Assessment Notes Treatment Notes Treatment Clinical Notes Feb, Type 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 with hyperglycemia (ICD-10 - E11.65) 1. Uncontrolled, a Type 2 diabetes with A1c of 7.2% 2. Blood glucose levels according to [employer] 2 cgm download 02/23/23-03/08/23: Avg glucose 183. 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 Keep covered while at work [email or web address] Other 10-25-2023 NoteIn light of elevated lipid levels- LDL > 50-70 I added zetia to regime. Will repeat lipid level again in 3 months. Staff to notify pt Robyn Miller LEADERSHIP DEVELOPMENT INSTRUCTOR Division of Cardiology, [facility]- [phone] Pager- [phone] Email- [email or web address] Evaluation note* Encounter Date Diagnosis Assessment [...] - E11.65) Increases risk of serious infection. [email or web address] Other 08-25-2023 Evaluation note* Encounter Date Diagnosis Assessment Notes Treatment Notes Treatment Clinical Notes Nov, Type 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 with hyperglycemia (ICD-10 - E11.65) [email or web address] Other 08-14-2023 Reason for visit NarrativeTKM - REFERRAL UROLOGY - NEED TO INFORM PATIENT 11/28/22[employer] Other 08-10-2023 Evaluation note* Encounter Date Diagnosis [...] hyperglycemia, or diabetes medication issues. 6. Prescriptions: [facility] KRISTIN: Sample shivani 2 cgm given today. 7. Prescriptions will not be filled unless you are compliant with follow up appointments or have a follow up appointment scheduled as ordered by your provider. Refills should be requested at the time of your visit. Nov, Dietary counseling and surveillance (ICD-10 - Z71.3) see above Nov, HTN (hypertension) (ICD-10 - I10) On arb. Nov, [facility] current use of insulin (ICD-10 - Z79.4) [...] dysfunction (ICD-10 - N52.9) referral to urology [email or web address] Other 08-10-2023 Evaluation note* Encounter Date Diagnosis Assessment Notes Treatment Notes Treatment Clinical Notes Nov, Erectile dysfunction (ICD-10 - N52.9) [email or web address] Other 07-03-2023 Evaluation note* Encounter Date Diagnosis [...] are maintaining regular scheduled appts with their contract accountant. No bleeding complications Oct, Type 2 diabetes [...] (ICD-10 - Z12.5) Yearly LADAN and PSA [email or web address] Other 05-08-2023 Evaluation note* Encounter Date Diagnosis [...] or diabetes medication issues. 6. Prescriptions: VERNA LINTONUE: None at this time. 7. Prescriptions will not be filled unless you are compliant with follow up appointments or have a follow up appointment scheduled as ordered by your provider. Refills should be requested at the time of your visit. August, Dietary counseling and surveillance (ICD-10 - Z71.3) see above August, HTN (hypertension) (ICD-10 - I10) On arb. August, [facility] current use of insulin (ICD-10 - Z79.4) [...] last visit, continue with weight loss efforts [email or web address] Other 04-03-2023 Evaluation note* Encounter Date Diagnosis Assessment Notes Treatment Notes Treatment Clinical Notes Jul, ASHD (arteriosclerot ic heart disease) (ICD-10 - I25.10) This patient is stable without activity related CP, dyspnea or lightheadedness. They are instructed to continue exercise and AHA diet plan. Instructed to continue exercise 2-3x weekly. After completiong CR plans on continuing at [facility] Jul, Primary hypertension (ICD-10 - I10) [...] (coronary artery bypass graft) (ICD-10 - Z95.1) [email or web address] Other 02-02-2023 Evaluation note* Encounter Date Diagnosis Assessment Notes Treatment Notes Treatment Clinical Notes May, Type 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 with hyperglycemia (ICD-10 - E11.65) 1. Controlled, a Type 2 diabetes with A1c of 6.9% 2. Blood glucose levels according to [employer] 2 cgm download 05/06/22-05/19/22: Avg glucose 189. [...] carbs while at work. He will see contract accountant Monday to see if he will be [...] (hypertension) (ICD-10 - I10) On arb. May, [facility] current use of insulin (ICD-10 - Z79.4) May, Mixed hyperlipidemia (ICD-10 - E78.2) 01/2022 LDL 34 on statin- at target May, BMI 40.0-44.9, adult (ICD-10 - Z68.41) May, Vitamin B 12 deficiency (ICD-10 - E53.8) 02/05 vit b 12 227 at target May, Albuminuria (ICD-10 - R80.9) 02/05 m/a cr ratio 68. Reviewed importance of glucose/bp control to prevent further nephropathy [email or web address] Other 01-18-2023 Evaluation note* Encounter Date Diagnosis [...] may warrant EGD to r/o H. Pylori [email or web address] Other 11-11-2022 NotePROCEDURE: XR FOOT RT MIN [...] Electronically authenticated by: HEAVENLY LOUIS Date: 2022-02-25 06:39[facility]07-07-2022 Evaluation note* Encounter Date Diagnosis Assessment Notes Treatment Notes Treatment Clinical Notes Oct, Type 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 with hyperglycemia (ICD-10 - E11.65) 1. Uncontrolled, a Type 2 diabetes with A1c of 7.5% 2. Blood glucose levels above target. According to [employer] 2 cgm download 10/08/21-10/21/21: Avg glucose 197. [...] (hypertension) (ICD-10 - I10) On jonathan. Oct, [employer] current use of insulin (ICD-10 - Z79.4) Oct, Mixed hyperlipidemia (ICD-10 - E78.2) 11/2020 LDL 97.6 Triglycerides 347, on fenofibrate, Recommend moderate intensity statin f/u with pcp for further recommendation. Oct, BMI 40.0-44.9, adult (ICD-10 - Z68.41) 4 pound weight loss from last visit, continue with weight loss efforts Oct, Vitamin B 12 deficiency (ICD-10 - E53.8) [email or web address] Other 04-27-2022 Evaluation note* Encounter Date Diagnosis [...] days. Jul, Hematuria, unspecified (ICD-10 - R31.9) [email or web address] Other 03-15-2022 Evaluation note* Encounter Date Diagnosis Assessment Notes Treatment Notes Treatment Clinical Notes Jun, Type 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 with hyperglycemia (ICD-10 - E11.65) 1. Uncontrolled, a Type 2 diabetes with A1c of 7.4% 2. Blood glucose levels above target. According to [employer] 2 cgm download 06/16/21-06/29/21: Avg glucose 172. [...] (hypertension) (ICD-10 - I10) On jonathan. Jun, [employer] current use of insulin (ICD-10 - Z79.4) Jun, Mixed hyperlipidemia (ICD-10 - E78.2) 11/2020 LDL 97.6 Triglycerides 347, on fenofibrate, Recommend moderate intensity statin f/u with pcp for further recommendation. Jun, BMI 40.0-44.9, adult (ICD-10 - Z68.41) see above [email or web address] Other 01-18-2022 Evaluation note* Encounter Date Diagnosis Assessment Notes Treatment Notes Treatment Clinical Notes Apr, Type 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 with hyperglycemia (ICD-10 - E11.65) [email or web address] Other 12-08-2021 Evaluation note* Encounter Date Diagnosis Assessment Notes Treatment Notes Treatment Clinical Notes Mar, Type 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 with hyperglycemia (ICD-10 - E11.65) 1. Controlled, a Type 2 diabetes with A1c of 6.6% 2. Blood glucose levels improved from last visit. According to [employer] 2 cgm download 03/11/21-03/24/21: Avg glucose 162. >250- 1%, >180-29%, 70-180-70%, <70-0%, <54-0%. CV 22.5%. Reviewed download with pt. readings above target from missed meal dose or late meal dose. Discussed with pt trial lyumjev which he could take 5 minutes before meal up to 20 minutes after meal. He is agreeable, reviewed this would take place of [facility]. He verbalizes understanding. Pt with history of [...] (hypertension) (ICD-10 - I10) On jonathan. Mar, [employer] current use of insulin (ICD-10 - Z79.4) Mar, Mixed hyperlipidemia (ICD-10 - E78.2) 11/2020 LDL 97.6 Triglycerides 347, on fenofibrate, Recommend moderate intensity statin. Mar, BMI 40.0-44.9, adult (ICD-10 - Z68.41) see above [email or web address] Other 09-22-2021 Evaluation note* Encounter Date Diagnosis Assessment Notes Treatment Notes Treatment Clinical Notes Dec, Type 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 with hyperglycemia (ICD-10 - E11.65) Erwin came in today for evaluation of his Shivani report after returning to work and continuing to use the device. Erwin is happy with the system and wants us to send a prescription to [facility] in [place]. Erwin's BG has averaged 163 for the [...] at MidNight. No further changes. [employer]Map[employer] JAKE, VETERANS REHABILITATION COUNSELOR-C, BC-ADM [facility] [employer] Other Evaluation + Plan noteExec[facility] Evaluation noteNo InformationNortPottstown Hospital [facility] Other Evaluation noteNo assessment information available [facility] Work Phone: Evaluation note* Diagnosis Screening for genitourinary condition Screening for other and unspecified genitourinary condition documented in this encounter [facility]* Diagnosis Coronary artery disease involving wiyot coronary artery of wiyot heart, unspecified whether angina present- Primary History of non-ST elevation myocardial infarction (NSTEMI) Old myocardial infarction Hx of CABG Postsurgical aortocoronary bypass status Primary hypertension Unspecified essential hypertension Other hyperlipidemia documented in this encounter [facility]* Diagnosis Onset Date Resolution Status BMI 39.0-39.9,adult acute Dietary counseling and surveillance acute Mixed hyperlipidemia acute Vitamin B 12 deficiency acut e Chronic HFrEF (heart failure with reduced ejection fraction) acute Hypertension acute Ischemic cardiomyopathy acut e Paroxysmal atrial fibrillation acute Type 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 with diabetic polyneuropathy acute Type 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 with hyperglycemia acute [facility] Work Phone: Evaluation note* Diagnosis Pre-operative examination- Primary Preoperative examination, unspecified Primary hypertension Unspecified essential hypertension Hyperlipidemia, unspecified hyperlipidemia type 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 Chronic systolic CHF [...] note 06/19/23 notes the following, Echo 03/30/22 ([facility]) - Global LV systolic function is difficult to assess but appears preserved, estimated ejection fraction is 55 to 60%, unable to accurately evaluate wall motion abnormalities. * Assessment & Plan Note - Kevin Goldsmith APRN.CNP - 07/27/2023 2:29 PM EDT Associated Problem(s): 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 CAD, hx of [place] s/p CABG x 5 in Dec 2021. Patient had a pre-op evaluation with Cardiology, 06/19/[address] Colmenares. Per note, Perioperative Cardiac Risk Assessment: Mr. Caden Chaudharis Is to undergo circumcision surgery which is [...] cardiac events (< 1% chance of , [place], CHF, malignant ventricular arrhythmias or high grade [...] BP today 114/66. [facility] Diagnosis Acquired buried penis- Primary Other specified disorder of penis [facility]* Diagnosis Acquired buried penis- Primary Other specified disorder of penis Scarring of penis Other specified disorder of penis [facility] Diagnosis Screening for genitourinary condition Screening for other and unspecified genitourinary condition [facility] Diagnosis Onset Date Resolution Status Chronic HFrEF (heart failure with reduced ejection fraction) acute Hypertension acute Ischemic cardiomyopathy acut e Mixed hyperlipidemia acute Type 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 wit h diabetic polyneuropathy acute Type 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 with hyperglycemia acute Screening PSA (prostate specific antigen) noneactive Wellness examination noneact dena [facility] Work Phone: Evaluation note* Diagnosis Onset [...] Mixed hyperlipidemia acute [facility] B [facility]: Hisitjj general Narrative - Reported* Type Description Date Medical History diabetes mellitus Medical History hypertension Medical History pancreatitis Medical History HLP Medical History R foot ulcer Surgical History heart stent Surgical History RIGHT FOOT SECOND TOE AMPUTATED 07/03 Hospitalization History see above Hospitalization History Gastric issues 03/2017 [email or web address] Other Hiseqkl general Narrative - Reported* Type Description Date Medical History diabetes mellitus Medical History hypertension Medical History pancreatitis Medical History HLP Medical History R foot ulcer Surgical History heart stent Surgical History RIGHT FOOT SECOND TOE AMPUTATED 07/03 Surgical History 5 Bypass surgery [facility] 12/31/2021 Hospitalization History see above Hospitalization History Gastric issues 03/2017 Hospitalization History [facility] surgery 12/2021 [email or web address] Other Hislysr general Narrative - Reported* Type Description Date Medical History Heart failure with preserved eje ction fraction Medical History Acute prostatitis Medical History ASHD (arteriosclerotic heart dis ease) Medical History Balanitis Medical History Transient atrial fibrillation Medical History Unspecified open wou nd of unspecified toe(s) with damage to nail, subsequent encounter Medical History Type 2 diabetes david itus with diabetic polyneuropathy, unspecified whether intermodal customer service insulin use Medical History [employer] current use of insulin Medical History S/P [...] versity Espinosa, CABG.4-5 [facility] 12/31/2021 Surgical History [facility] PTCA/STENT LAD 2007 Surgical History COLONOSCOPY Hospitalization History see above Hospitalization History Gastric issues 03/2017 Hospitalization History [facility] surgery 12/2021 [email or web address] Other Hospital course Narrative No data available for this section [facility] Progress note No data available for this section [facility] Reason for referral (narrative) Referred by: Antonia BUSH MD [facility] Renuri for referral (narrative)* Outpatient Procedure (Routine) - Closed Specialty Diagnoses / Procedures Referred By Elda santizo [facility] Diagnoses Coronary artery disease involving wiyot coronary artery of wiyot heart, unspecified whether angina present History of non-ST elevation myocardial infarction (NSTEMI) Hx of CABG Primary hypertension Other hyperlipidemia Procedures ECG COMPLETE ECG ROUTINE ECG W/LEAST 12 LDS W/I&R Ligia Colmenares MD [address] [place] [address] [facility] [address] [place] [id number] Referral ID Status Reason Start Date Expiration Date V isits Requested Visits Authorized [id number] Closed Auto-Generate d Referral 06/16/2023 06/15/2024 1 1 [facility] Chief Complaint and Reason for Visit [...] Provider Specialty Internal Me dicine Referred Organization [facility] Referred Provider Yarelis Santacruz Referred Address [address] [place], [place],[address] Referred Provider Specialty Orthopedic S urgery Referral [...] Diagnosis 1 Erectile dysfunction (N52.9) Referral Organization [facility] Referring Provider First Name Yamilex Referring Provider Last Name Bull Referring Provider Specialty Nurse Pract bridgettionejonathan Referred Organization Unknown Facility Referred Provider Antonia Bush Referred Provider Specialty Urology Referral Priority Routine Referral Appointment Date 2023-03-22 General Notes Tracie Alvarado 11/15 08:20:19 AM >Spoke to Poonam and patient scheduled for [place] office on 03/22/23 at 11am at [address] [place] [address] [address] Jenny Tracie 11/28/2022 09:35:22 AM >Text message sent to patient requesting he call me for Referral details. Tracie Alvarado 11/28/2022 12:00:13 PM >Patient returns my call and is informed of appt. 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 Cardiac Clearance and new patient Specialty Diagnoses / Procedures Referred By Elda t Referred To [facility] Diagnoses Coronary artery disease involving wiyot coronary artery of wiyot heart, unspecified whether angina present History of non-ST elevation myocardial infarction (NSTEMI) Hx of CABG Primary hypertension Other hyperlipidemia Procedures ECG COMPLETE ECG ROUTINE ECG W/LEAST 12 LDS W/I&R Ligia Colmenares MD [address] [place] [address] [facility] [address] [place] [address] Referral ID Status Reason Start Date Expiration Date V isits Requested Visits Authorized [id number] Closed Auto-Generate d Referral 06/16/2023 06/15/2024 1 [...] 2023 End: November 01, 2023 Yamilex Foster , PLASTIC MIXER Attending Provider Active Start: November 01, 2023 End: November 01, 2023 Team Status: Active Member Role Status Dates Fahad Aceves DO Primary Care Provide r, Attending Provider Active Start: July 27, 2023 Team Status: Inactive Member Role Status Dates Yamilex Foster , PLASTIC MIXER Attending Provider Active Start: March 08, 2023 End: March 08, 2023 Team Status: Inactive Member Role Status Dates Fahad Aceves DO Primary Care Provider Active Start: March 08, 2023 End: March 08, 2023 Michellea Nba Foster , PLASTIC MIXER Attending Provider Active Start: March 08, 2023 [...] Fahad Aceves DO Primary Care Provider Active Tona Nba Foster , PLASTIC MIXER Attending Provider Active Team Status: Active Member Role Status Dates Fahad Aceves DO Primary Care Provider Active Tona Nba Foster , PLASTIC MIXER Attending Provider Active Air Press Operator Relationship Specialty Start Date End Date Antonia Bush [address] [place] [address] Referring Urology 03/25/23 Air Press Operator Relationship Specialty Start Date End Date Antonia Bush [address] [place] [address] Referring Urology 03/25/23 Air Press Operator Relationship Specialty Start Date End Date Antonia Bush [address] [place] [address] Referring Urology 03/25/23 Team Status: Active Member [...] July 11, 2023 End: July 11, 2023 Air Press Operator Relationship Specialty Start Date End Date Fahad Aceves DO [address] [place] [address] PCP - General Internal Medicine 07/18/23 Antonia Bush [address] [place] [address] Referring Urology 03/25/23 Air Press Operator Relationship Specialty Start Date End Date Fahad Aceves DO [address] [place] [address] PCP - General Internal Medicine 07/18/23 Antonia Bush MD [address] [address] Referring Urology 03/25/23 Air Press Operator Relationship Specialty Start Date End Date Fahad Aceves DO [address] [place] [address] PCP - General Internal Medicine 07/18/23 Antonia Bush MD [address] [place] [address] Referring Urology 03/25/23 Air Press Operator Relationship Specialty Start Date End Date Fahad Aceves DO [address] [place] [address] PCP - General Internal Medicine 07/18/23 Antonia Bush MD [address] [place] [address] Referring Urology 03/25/23 Air Press Operator Relationship Specialty Start Date End Date Fahad Aceves DO [address] [place] [address] PCP - General Internal Medicine 07/18/23 Antonia Bush MD [address] [address] Referring Urology 03/25/23 Air Press Operator Relationship Specialty Start Date End Date Fahad Aceves DO [address] [place] [address] PCP - General Internal Medicine 07/18/23 Antonia Bush MD [address] [address] Referring Urology 03/25/23 Goals (unrecognized section and content) Goals may be documented in a n alternate section (unrecognized sect ion and content) No Status Records FoundNo Status Records FoundNo Status Records FoundNo Status Records FoundNo Status Records Found INFORMATION SOURCE (unrecogn ized section and content) DATE CREATED AUTHOR 08/31/2022 [facility] DATE CREATED AUTHOR AUTHOR'S ORGANIZ ATION 06/01/2023 [facility] DATE CREATED AUTHOR AUTHOR'S ORGANIZ ATION [facility]/19/2023 [facility] DATE CREATED AUTHOR AUTHOR'S ORGANIZ ATION 01/16/2024 [facility] DATE CREATED AUTHOR AUTHOR'S ORGANIZ ATION 01/18/2024 [facility] Source Comments (unrecognize d section and content) In the event this informatio n is protected by the Federal Confidentiality of Alcohol and Drug Abuse Patient Records regulations: The Federal rules restrict any use of the information to criminally investigate or prosecute any alcohol or drug abuse patient.[place]In the event this information is protected by the Federal Confidentiality of Alcohol and Drug Abuse Patient Records regulations: The Federal rules restrict any use of the information to criminally investigate or prosecute any alcohol or drug abuse patient.[place]In the event this information is protected by the Federal Confidentiality of Alcohol and Drug Abuse Patient Records regulations: The Federal rules restrict any use of the information to criminally investigate or prosecute any alcohol or drug abuse patient.[place]In the event this information is protected by the Federal Confidentiality of Alcohol and Drug Abuse Patient Records regulations: The Federal rules restrict any use of the information to criminally investigate or prosecute any alcohol or drug abuse patient.[place]In the event this information is protected by the Federal Confidentiality of Alcohol and Drug Abuse Patient Records regulations: The Federal rules restrict any use of the information to criminally investigate or prosecute any alcohol or drug abuse patient.[place]In the event this information is protected by the Federal Confidentiality of Alcohol and Drug Abuse Patient Records regulations: The Federal rules restrict any use of the information to criminally investigate or prosecute any alcohol or drug abuse patient.[place]In the event this information is protected by the Federal Confidentiality of Alcohol and Drug Abuse Patient Records regulations: The Federal rules restrict any use of the information to criminally investigate or prosecute any alcohol or drug abuse patient.[place]ervilleIn the event this information is protected by the Federal Confidentiality of Alcohol and Drug Abuse Patient Records regulations: The Federal rules restrict any use of the information to criminally investigate or prosecute any alcohol or drug abuse patient.[place]ervilleIn the event this information is protected by the Federal Confidentiality of Alcohol and Drug Abuse Patient Records regulations: The Federal rules restrict any use of the information to criminally investigate or prosecute any alcohol or drug abuse patient.[place]ervilleIn the event this information is protected by the Federal Confidentiality of Alcohol and Drug Abuse Patient Records regulations: The Federal rules restrict any use of the information to criminally investigate or prosecute any alcohol or drug abuse patient.[place]ervilleIn the event this information is protected by the Federal Confidentiality of Alcohol and Drug Abuse Patient Records regulations: The Federal rules restrict any use of the information to criminally investigate or prosecute any alcohol or drug abuse patient.[place] FOR RECORDS PERTAINING TO PATIENTS WHO ARE [...] BE BASED ON THE PRIMARY CLINICAL RECORDS. [facility] [employer] [facility]. provides no warranty or guarantee of the accuracy or completeness of information in this document.
[2024-01-20 11:59] LABS: Chol HDL Ratio 3.3; Cholesterol 107 mg/dL (<=200); HDL Cholesterol 32 mg/dL (40-60); Triglycerides 133 mg/dL (<=150); VLDL CHOLESTEROL 26.6 mg/dL
== END 2024-01-20 11:12 | disposition home or self-care (01) ==
LOC: LAB 11:11
PROVIDERS: PCP Internal Medicine; Visit Provider Internal Medicine Interventional Cardiology
DX: E78.2 Mixed hyperlipidemia (principal)
CPT/HCPCS: 36415; 80061; 82172; 83695

== ENCOUNTER 2024-06-20 07:10 | Outpatient (OUT) | payer OTHER, SELFPAY ==
--- OUTSIDE RECORDS SUMMARY | 2024-06-20 07:13 | XMS_ITS | CCD ---
Author Organization [facility] Care Team Providers Care Press Tender Short Goods Name Role Phone Yamilex Foster Unavailable Celestina Greene Unavailable DO Fahad Aceves Primary Care Provider JAKE Foster Attending Provider Fahad Aceves Unavailable YOLA, DR GUSTAFSON Primary Care Unavailable VICKEY LANE Attending Unavailable VICKEY LANE Admitting Unavailable DARNELL OVALLE Attending Unavailable KATDARNELL REINOSO Admitting Unavailable BALL, DR GUSTAFSON Primary Care Unavailable WEST, DR STORM Coffey Consulting Unavailable KATKODARNELL Consulting Unavailable BALL, DR GUSTAFSON Admitting Unavailable BALL, DR GUSTAFSON Primary Care Unavailable BALL, DR GUSTAFSON Attending Unavailable HIGHLANDER, DAMIAN Medrano Admitting Unavailable BALL, DR GUSTAFSON Primary Care Unavailable HIGHLDAMIAN SEGUNDO Attending Unavailable HIGHLANDER, DAMIAN Medrano Attending Unavailable BALL, DR GUSTAFSON Primary Care Unavailable HIGHLANDERDAMIAN Admitting Unavailable BALL, DR GUSTAFSON [...] Consulting Unavailable BALL, DR GUSTAFSON Attending Unavailable Zieber, Heavenly Consulting Unavailable BALL, DR GUSTAFSON Primary [...] Attending Unavailable MOUKARBEL, DR COTTRELL Admitting Unavailable HIGHLANDERDAMIAN Admitting Unavailable BALL, DR GUSTAFSON Primary Care Unavailable HIGHLANDER, DAMIAN Medrano Attending Unavailable Yarelis Santacruz Unavailable YAMILEX FOSTER Primary Care Physician Antonia Bush Unavailable DO Fahad Aceves Primary Care Provider [phone] JAKE Foster Attending Provider Yamilex Foster Attending Unavailable Yamilex Foster Admitting Unavailable Fahad Aceves Primary Care Unavailable Fahad Aceves DO Primary Care Provider Antonia Bush MD Unavailable [phone] Fahad Aceves DO Primary Care Provider YAMILEX [...] ALBERTO Admitting UnavailJIAN Omalley Attending Unavailabl e MOSIMBA WILEY Attending Unavailable CAROLINE SILVA Attending Unavailable Allergies Allergy Classification Reported Allergen(s) Allergy Type Date of Onset Reaction(s) Facility (20 sources) empagliflozin Drug Allergy [facility] [employer] Other (20 sources) icosapent ethyl Drug Allergy n/v Poppin Other (1 source) empagliflozin Drug Allergy 4 [facility] (1 source) icosapent ethyl Drug Allergy 4 [facility] Medications Current Medications Medication Drug Class(es) [...] mg oral tablet (20 sources) Antiarrhythmic Start: 02-07-2024 take 1 tablet by mouth once daily Amiodarone 200 mg tablet Active 200 MG PO Daily February 06, 2024 11:00pm Start: 06-21-2023 take 1 tablet by [facility] once daily amiodarone (PACERONE) 200 mg tablet [...] (20 sources) HMG-CoA Reductase Inhibitor Start: take 1 tablet by mouth once daily in the evening Atorvastatin 80 mg tablet Active 0 .ROUTE .COMPLEX 90 December 18, 2023 7:42am TAKE 1 TABLET BY MOUTH EVERY DAY IN THE EVENING Start: 03-22-2023 End: 12-18-2023 take 1 tablet by mouth once daily Atorvastatin 80 mg tablet Discontinued 80 MG PO Daily June 21, 2023 12:00am December 18, 2023 7:42am Comment on above: Take 80 mg by mouth every evening. bumetanide 1 mg oral tablet (17 sources) Loop Diuretic Start: 06-21-2023 take 1 tablet by mouth once daily Bumetanide 1 mg tablet Active 1 MG PO Daily June 21, 2023 12:00am Start: 04-19-2023 take 1 tablet by mercy [...] oral capsule (1 source) Cephalosporin Antibacterial Start: End: take 1 capsule by mouth twice daily cephALEXin (KEFLEX) 500 mg capsule Take 1 capsule by mouth two times a day. 60 capsule 0 07/29/2023 08/28/2023 Active Comment on above: Take 1 capsule by mo [facility] two times a day. cinnamon bark 500 mg oral capsule (8 sources) Start: 9 take 1 capsule by mouth twice daily Cinnamon Bark (Cinnamon) 500 mg Capsule Active 500 MG PO Twice daily June 25, 2018 11:00pm clopidogrel 75 mg oral tablet (20 sources) [id number] Platelet Inhibitor Start: take 1 tablet by mouth once daily Clopidogrel 75 mg tablet Active 75 MG PO Daily May 15, 2024 12:00am Start: 06-26-2018 End: 06-21-2023 Clopidogrel 75 mg tablet Dis continued 75 MG PO 1200 June 25, 2018 11:00pm June 21, 2023 4:28pm dapagliflozin 10 mg oral tablet (20 sources) Sodium-Glucose Cotransporter 2 Inhibitor Start: 06-21-2023 End: 02-07-2024 take 1 tablet by mouth once daily Dapagliflozin Propanediol (Farxiga) 10 mg tablet Active 10 MG PO Daily February 07, 2024 4:15pm Start: 03-22-2023 Farxiga 10 mg oral tablet [...] on above: Take 1 capsule by mo ut two times a day. ezetimibe 10 mg oral tablet (15 sources) Dietary Cholesterol Absorption Inhibitor Start: 06-21-2023 take 1 tablet by mouth once daily Ezetimibe 10 mg tablet Active 10 MG PO Daily June 21, 2023 12:00am Start: 04-19-2023 take 1 tablet by [facility] every twenty-four hours Ezetimibe 10 MG 1 tablet Orally Once a day for 30 days Apr, Active Comment on above: Take 10 mg by mouth every morning. famotidine 40 mg oral tablet (20 sources) Histamine-2 Receptor Antagonist Start: 06-21-2023 take 1 tablet by mouth once daily at bedtime Famotidine 40 mg tablet Active 40 MG PO Daily at bedtime June 21, 2023 12:00am Start: 05-04-2022 take 1 tablet by [facility] every twenty-four hours Famotidine 40 MG 1 tablet at bedtime Orally Once a day Apr, Active Fish Oils (19 sources) Fish Oil Active Flash Glucose Sensor (Freest yle Shivani 2 Sensor) kit (3 sources) Start: 11-15-2023 Flash Glucose Sensor (Freestyle Shivani 2 Sensor) kit Active 0 .ROUTE .COMPLEX November 15, 2023 6:58am CHANGE EVERY 14 DAYS Start: 11-15-2023 Flash Glucose Sensor (Freestyle Shivani 2 Sensor) kit Active 0 .ROUTE .COMPLEX November 15, 2023 7:58am CHANGE EVERY 14 DAYS FreeStyle Shivani 2 Sensor - (20 sources) Start: 01-06-2021 FreeStyle Libr e 2 Sensor - as directed In Vitro Change Every 14 days for 84 days Dec, Active FreeStyle Shivani 2 Sensor - CHANGE EVERY 14 DAYS for 84 Active gabapentin 100 mg oral capsule (4 sources) Anti-epileptic Agent Start: 04-23-2024 End: 04-23-2024 take 1 capsule by mouth once daily at bedtime Gabapentin 100 mg capsule Active 100 MG PO Daily at bedtime April 23, 2024 4:24pm 3 ml insulin glargine 300 unt/ml pen [...] 03/22/23 Status: Ordered Start: 06-26-2018 End: 06-21-2023 Insulin Glargine U-300 Conc 300 unit/mL (1.5 mL) insulin pen Discontinued 60 UNIT SUBCUT Daily at bedtime June 25, 2018 11:00pm June 21, 2023 4:27pm Toujeo Max SoloS tar 300 UNIT/ML 70 units Subcutaneous qd for 90 days (titrate up to max 90 units/day) Active Toujeo Max SoloS tar 300 UNIT/ML 65 units Subcutaneous qd (titrate up to 90 units/day) Active Toujeo SoloStar 300 UNIT/ML 70 units Subcutaneous At bedtime (titrate up to 80/day) Not-Taking Toujeo Max RosannaoS tar 300 UNIT/ML 84 units Subcutaneous qd [...] utaneously once daily. Insulin Glargine U-300 Conc (8 sources) Start: inject 70 [IU] by subcutaneous injection once daily at bedtime Insulin Glargine U-300 Conc Active 70 UNIT SUBCUT Daily at bedtime February 07, 2024 5:11pm Start: 02-07-2024 End: 02-07-2024 inject 70 [IU] by subcutaneous injection once daily at bedtime Insulin Glargine U-300 Conc Discontinued 70 UNIT SUBCUT Daily at bedtime February 07, 2024 4:39pm February 07, 2024 5:15pm Start: 11-01-2023 End: 02-07-2024 inject 74 [IU] by subcutaneous injection once daily at bedtime Insulin Glargine U-300 Conc Discontinued 74 UNIT SUBCUT Daily at bedtime November 01, 2023 5:07pm February 07, 2024 4:43pm Start: 11-01-2023 inject 74 [IU] by gorman bcutaneous injection once daily [...] Daily at bedtime June 21, 2023 5:18pm Insulin Glargine U-300 Conc 300 unit/mL (1.5 mL) insulin pen (10 sources) Start: 03-19-2024 Insulin Glargi ne U-300 Conc 300 unit/mL (1.5 mL) insulin pen Active 70 UNIT SUBCUT Daily at bedtime March 19, 2024 12:35pm Start: 02-07-2024 End: 03-19-2024 Insulin Glargine U-300 Conc 300 unit/mL (1.5 mL) insulin pen Discontinued 70 UNIT SUBCUT Daily at bedtime February 07, 2024 4:11pm March 19, 2024 12:35pm Start: 02-07-2024 End: 02-07-2024 Insulin Glargine U-300 Conc 300 unit/mL (1.5 mL) insulin pen Discontinued 70 UNIT SUBCUT Daily at bedtime February 07, 2024 3:39pm February 07, 2024 4:15pm Start: 11-01-2023 End: 02-07-2024 Insulin Glargine U-300 Conc 300 unit/mL (1.5 mL) insulin pen Discontinued 74 UNIT SUBCUT Daily at bedtime November 01, 2023 4:07pm February 07, 2024 3:43pm Start: 06-21-2023 End: 11-01-2023 Insulin Glargine U-300 Conc 300 unit/mL (1.5 mL) insulin pen Discontinued 72 UNIT SUBCUT Daily at bedtime June 21, 2023 4:18pm November 01, 2023 4:07pm 3 ml insulin lispro-aabc 100 unt/ml pen injector (20 sources) Insulin Analog Start: 03-22-2023 Lyumjev KwikPe n 100 units/mL injectable solution Refills(s) 0 Start Date: 03/22/23 Status: Ordered Start: 05-04-2021 Lyumjev KwikPe n 100 UNIT/ML 32 units ac breakfast , 38 supper plus ISS 1: 10 ac, (hs if >200 half dose) (expect daily dose 80 units) Subcutaneous ACHS Apr, Active Insulin Lispro-Aabc (6 sources) Start: 02-07-2024 Insulin Lispro -Aabc Active 0 SUBCUT .COMPLEX 54 February 07, 2024 5:12pm USE 36 UNITS BEFORE BREAKFAST/lunch, 38 BEFORE SUPPER PLUS ISS 1:10 BEFORE MEALS (AT BEDTIME IF >200 HALF DOSE) *UP TO 120 UNITS PER DAY* Subcutaneous Start: 02-07-2024 End: 02-07-2024 Insulin Lispro-Aabc Disconti nued 0 SUBCUT .COMPLEX February 07, 2024 4:40pm February 07, 2024 5:15pm USE 36 UNITS BEFORE BREAKFAST, 38 BEFORE SUPPER PLUS ISS 1:10 BEFORE MEALS (AT BEDTIME IF >200 HALF DOSE) *UP TO 100 UNITS PER DAY* Subcutaneous (expect up to 100 units/day) Start: 06-21-2023 End: 02-07-2024 Insulin Lispro-Aabc Disconti nued 0 SUBCUT .[facility] June 21, 2023 1:00am February 07, 2024 4:43pm USE 32 UNITS BEFORE BREAKFAST, 38 BEFORE SUPPER PLUS ISS 1:10 BEFORE MEALS (AT BEDTIME IF >200 HALF DOSE) *UP TO 100 UNITS PER DAY* Subcutaneous (expect up to 100 units/day) Start: 06-21-2023 Insulin Lispro -Aabc Active 0 SUBCUT .COMPLEX June 21, 2023 1:00am USE 32 UNITS BEFORE BREAKFAST, 38 BEFORE SUPPER PLUS ISS 1:10 BEFORE MEALS (AT BEDTIME IF >200 HALF DOSE) *UP TO 100 UNITS PER DAY* Subcutaneous (expect up to 100 units/day) Insulin Lispro-Aabc 200 unit/mL (3 mL) insulin pen (6 sources) Start: 02-07-2024 Insulin Lispro -Aabc 200 unit/mL (3 mL) insulin pen Active 0 SUBCUT .COMPLEX 54 February 07, 2024 4:12pm USE 36 UNITS BEFORE BREAKFAST/lunch, 38 BEFORE SUPPER PLUS ISS 1:10 BEFORE MEALS (AT BEDTIME IF >200 HALF DOSE) *UP TO 120 UNITS PER DAY* Subcutaneous Start: 02-07-2024 End: 02-07-2024 Insulin Lispro-Aabc 200 unit /mL (3 mL) insulin pen Discontinued 0 SUBCUT .COMPLEX February 07, 2024 3:40pm February 07, 2024 4:15pm USE 36 UNITS BEFORE BREAKFAST, 38 BEFORE SUPPER PLUS ISS 1:10 BEFORE MEALS (AT BEDTIME IF >200 HALF DOSE) *UP TO 100 UNITS PER DAY* Subcutaneous (expect up to 100 units/day) Start: 06-21-2023 End: 02-07-2024 Insulin Lispro-Aabc 200 unit /mL (3 mL) insulin pen Discontinued 0 SUBCUT .COMPLEX June 21, 2023 12:00am February 07, 2024 3:43pm USE 32 UNITS BEFORE BREAKFAST, 38 BEFORE SUPPER PLUS ISS 1:10 BEFORE MEALS (AT BEDTIME IF >200 HALF DOSE) *UP TO 100 UNITS PER DAY* Subcutaneous (expect up to 100 units/day) LEVEMIR FLEXTOUCH 100 UNIT/ ML (4 sources) LEVEMIR FLEXTOUC H 100 UNIT/ ML 42 units Subcutaneous bid Active magnesium oxide 400 mg oral tablet (20 sources) Start: 06-21-2023 take 1 tablet by mouth once daily Magnesium Oxide 400 mg (241.3 mg magnesium) tablet Active 400 MG PO Daily June 21, 2023 12:00am take 1 tablet by [facility] every twenty-four hours Magnesium Oxide 400 MG 1 tablet as needed Orally Once a day Active 24 hr metoprolol succinate 100 mg extended release oral tablet (20 sources) beta-Adrenergic Gonzalo Start: 03-05-2023 take 1 tablet by mouth twice daily Metoprolol Succinate 100 mg tablet extended release 24 hr Active 100 MG PO Twice daily June 21, 2023 12:00am Start: 03-05-2023 take 1 tablet by [facility] in the morning metoprolol succinate ER (TOPROL XL) 100 mg TAKE 1 TABLET BY MOUTH IN THE MORNING AND 1 TABLET AT BEDTIME 0 03/05/2023 Active Comment on above: TAKE 1 TABLET BY [facility] IN THE MORNING AND 1 TABLET AT BEDTIME Multivitamin preparation (6 sources) Start: 06-26-2018 take 1 tablet by mouth once daily Multivitamin Active 1 TAB PO Daily June 25, 2018 11:00pm Start: 06-26-2018 take 1 tablet by [facility] once daily Multivitamin Active 1 TAB PO Daily June 26, 2018 12:00am Multivitamin Tablet (2 sources) Start: 06-26-2018 take 1 tablet by mouth once daily Multivitamin Tablet Active 1 TAB PO Daily June 25, 2018 11:00pm niacin 500 mg oral tablet (8 sources) Nicotinic Acid Start: 06-26-2018 take 1 tablet by mouth once daily at bedtime Niacin 500 mg Tablet Active 500 MG PO Daily at bedtime June 25, 2018 11:00pm omega 0-xik-hdw-fish oil (FISH OIL) 100-160-1,000 mg cap (11 sources) omega 8-ikv-eib-fish oil (FISH OIL) 100-160-1,000 mg cap Take 1,000 mg by mouth. Active omega 3-dha-epa- fish oil (FISH OIL) 100-160-1,000 mg cap Take 1,000 mg by mouth. 0 Active Comment on above: Take 1,000 mg by [facility]. pantoprazole 40 mg delayed release oral tablet (20 sources) Proton Pump Inhibitor Start: take 1 tablet by mouth once daily at breakfast Pantoprazole 40 mg tablet,delayed release (DR/EC) Active 0 .ROUTE .COMPLEX 90 August 25, 2023 12:04pm TAKE 1 TABLET BY MOUTH ONCE A DAY ON EMPTY STOMACH FOLLOWED IN 30 MINUTES WITH BREAKFAST 90 Start: 05-29-2023 End: 08-25-2023 take 1 tablet by mouth once daily Pantoprazole 40 mg tablet,delayed release (DR/EC) Discontinued 40 MG PO Daily June 21, 2023 12:00am August 25, 2023 12:04pm Start: 06-17-2022 Pantoprazole [address] Tab Refills(s) 0 Start Date: 03/22/23 Status: Ordered Comment on above: TAKE 1 TABLET BY [facility] ONCE A DAY ON EMPTY STOMACH FOLLOWED IN 30 MINUTES WITH BREAKFAST 90 pen needle, diabetic (BD Ultra-Fine Georgina Pen Needle) (6 sources) Start: 06-21-2023 pen needle, diabetic (BD Ultra-Fine Georgina Pen Needle) Active .Route June 21, 2023 12:00am Start: 06-21-2023 pen needle, di abetic (BD Ultra-Fine Georgina Pen Needle) Active .Route June 21, 2023 1:00am microencapsulated potassium chloride 20 meq extended release oral tablet (11 sources) Start: 03-02-2022 potassium chloride ER (KLOR-CON) 20 mEq tablet Take 20 mEq by mouth. 03/02/2022 Active Comment on above: Take 20 mEq by mouth . sacubitril 24 mg / valsartan 26 mg oral tablet (20 sources) Angiotensin 2 Receptor Gonzalo Start: 07-03-2023 take 1 tablet by mouth in the morning ENTRESTO 24-26 mg tablet TAKE 1 TABLET BY MOUTH IN THE MORNING AND IN THE EVENING 07/03/2023 Active Start: 06-21-2023 take 1 tablet by [facility] twice daily Sacubitril-Valsartan (Entresto) 24-26 mg tablet Active 1 TAB PO Twice daily June 21, 2023 12:00am Start: 03-22-2023 Entresto 24 mg -26 mg oral tablet Refill(s) 0 Start Date: 03/22/23 Status: Ordered ENTRESTO 24 mg/2 6 mg 1 orally twice a day Active Comment on above: TAKE 1 TABLET BY [facility] IN THE MORNING AND IN THE EVENING sildenafil 100 mg oral tablet (19 sources) Phosphodiesterase 5 Inhibitor Start: 06-21-2023 Sildenafil 100 mg tablet Active 100 MG PO as needed June 21, 2023 12:00am Start: 10-17-2022 take 1 tablet by mercy once daily as needed Sildenafil Citrate 100 MG 1 tablet Orally Once a day, as needed for ED for 30 days Oct, Active spironolactone 25 mg oral tablet (20 sources) Aldosterone Antagonist Start: 05-29-2023 take 1 tablet by mouth once daily Spironolactone 25 mg tablet Active 25 MG PO Daily June 21, 2023 12:00am Start: 03-22-2023 spironolactone 25 mg Tab Refills(s) 0 Start Date: 03/22/23 Status: Ordered Comment on above: Take 25 mg by mouth every morning. tiZANidine 4 mg oral tablet (20 sources) Central alpha-2 Adrenergic Agonist Start: 06-21-2023 take 0.5-2 tablets by mouth once daily at bedtime Tizanidine 4 mg tablet Active 0 PO .COMPLEX June 21, 2023 12:00am TAKE 1/2 TO 2 TABLETS BY MOUTH EVERY DAY AT BEDTIME; Start: 03-22-2023 tiZANidine 4 m g Tab Refills(s) 0 Start Date: 03/22/23 Status: Ordered Completed/Discontinued Medications Medication Drug Class(es) Dates Sig (Normalized) Sig (Original) atenolol 25 mg oral tablet (18 sources) beta-Adrenergic Gonzalo Start: 06-26-2018 End: 06-21-2023 Atenolol 25 mg tablet Discontinued 25 MG PO 1200 June 25, 2018 11:00pm June 21, 2023 4:28pm canagliflozin 300 mg oral tablet (8 sources) Sodium-Glucose Cotransporter 2 Inhibitor Start: 06-26-2018 End: 06-21-2023 Canagliflozin 300 mg tablet Discontinued 300 MG PO 1200 June 25, 2018 11:00pm June 21, 2023 4:28pm ciprofloxacin 500 mg oral tablet (5 sources) [...] day(s) Not-Taking fenofibrate 145 mg oral tablet (18 sources) Peroxisome Proliferator Receptor alpha Agonist Start: 06-26-2018 End: 06-21-2023 Fenofibrate Nanocrystallized 145 mg tablet Discontinued 145 MG PO 1200 June 25, 2018 11:00pm June 21, 2023 4:29pm flash glucose sensor (FreeStyle Shivani 2 Sensor) (6 sources) Start: 06-21-2023 End: 11-15-2023 flash glucose sensor (FreeStyle Shivani 2 Sensor) Discontinued .Route June 21, 2023 12:00am November 15, 2023 6:58am Start: 06-21-2023 End: 11-15-2023 flash glucose sensor (FreeSt yle Shivani 2 Sensor) Discontinued .Route June 21, 2023 1:00am November 15, 2023 7:58am Start: 06-21-2023 flash glucose sensor (FreeStyle Shivani 2 Sensor) Active .Route June 21, 2023 1:00am fluconazole 150 mg oral tablet (10 sources) Azole Antifungal Start: 08-24-2020 Diflucan 150 MG 1 tablet Orally Once, repeat in 3 days if needed for 3 days August, Not-Taking hydroCHLOROthiazide 25 mg oral tablet (18 sources) Thiazide Diuretic Start: 06-26-2018 End: 06-21-2023 Hydrochlorothiazide 25 mg tablet Discontinued 25 MG PO 1200 June 25, 2018 11:00pm June 21, 2023 4:29pm 3 ml insulin aspart, human 100 unt/ml pen injector (20 sources) Insulin Analog Start: 06-26-2018 End: 06-21-2023 Insulin Aspart U-100 100 unit/mL insulin pen Discontinued June 25, 2018 11:00pm June 21, 2023 4:18pm inject 25 [IU] by gorman bcutaneous injection [...] before meals. lisinopril 10 mg oral tablet (18 sources) Angiotensin Converting Enzyme Inhibitor Start: 06-27-19 End: 06-21-19 Lisinopril 10 mg tablet Discontinued 10 MG PO 1200 June 25, 2018 11:00pm June 21, 2023 4:29pm Magnesium, Zinc, Vitamin D (8 sources) Start: 06-27-19 End: 06-21-19 24 take 1 tablet by mouth once daily at bedtime Magnesium, Zinc, Vitamin D Discontinued 1 TAB PO Daily at bedtime June 25, 2018 11:00pm June 21, 2023 4:29pm Start: 06-26-2018 End: 06-21-2023 take 1 tablet by mouth once [...] Daily at bedtime June 26, 2018 12:00am 24 hr metFORMIN hydrochloride 500 mg extended release oral tablet (20 sources) Biguanide Start: 02-01-2023 End: 12-19-2023 take 1 tablet by mouth three times daily Metformin 500 mg tablet extended release 24 hr Discontinued 500 MG PO Three times daily June 21, 2023 12:00am December 19, 2023 6:09am Start: 02-01-2023 take 1 tablet by [facility] every twelve hours metFORMIN ER (GLUCOPHAGE XR) 500 mg 24 hr tablet Take 1 tablet by mouth every 12 hours. 0 02/01/2023 Active Start: 06-26-2018 End: 06-21-2023 Metformin (Glucophage) 500 m g Tablet Discontinued 1000 MG PO 1800 June 25, 2018 11:00pm June 21, 2023 4:21pm Start: 06-26-2018 End: 06-21-2023 Metformin (Glucophage) 500 m g Tablet Discontinued 500 MG PO 0300 June 25, 2018 11:00pm June 21, 2023 4:29pm take 1 tablet by [facility] twice [...] by [facility] three times a day. omega-3 fatty acids (Fish Oil) (6 sources) Start: 06-21-2023 End: 02-07-2024 take 1 capsule by mouth once daily omega-3 fatty acids (Fish Oil) Discontinued 1 CAP PO Daily June 21, 2023 12:00am February 07, 2024 3:40pm Start: 06-21-2023 End: 02-07-2024 take 1 capsule by mouth once daily omega-3 fatty acids (Fish Oil) Discontinued 1 CAP PO Daily June 21, 2023 1:00am February 07, 2024 4:40pm Start: 06-21-2023 take 1 capsule by mo uth once daily omega-3 fatty acids (Fish Oil) Active 1 CAP PO Daily June 21, 2023 1:00am pioglitazone 30 mg oral tablet (13 sources) [...] Coronary arteriosclerosis; 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: [Atherosclerotic heart disease of [place] coronary artery without angina pectoris] Onset: 01-06-2022 Chronic Crushing injury or internal injury (3 sources) Crushing injury of right index finger, initial encounter; 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: [Crushing injury of foot] Episodic Diabetes mellitus with complications (20 sources) [...] [Vitamin D deficiency, unspecified] Chronic Nutritional deficiencies (16 sources) Deficiency of other specified B group vitamins; 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: [Cobalamin deficiency] Onset: 10-21-2021 Resolved: 10-21-2021 Episodic Open wounds of extremities (17 sources) Open wound of toe(s) with damage to nail; 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: [Unspecified open wound of unspecified toe(s) with damage to nail, subsequent encounter] Episodic Osteoarthritis (1 source) Osteoarthritis of left foot; 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: [Primary osteoarthritis, left ankle and foot] 04-23-2024 Chronic Other aftercare (20 sources) Long-term current use of insulin; 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] Episodic Other aftercare (1 source) Long-term current use of anticoagulant; 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: [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 (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 of anticoagulants] Onset: 03-22-2023 Episodic Other and ill-defined heart disease (1 source) Heart disease 03-22-2023 Chronic Other connective tissue disease (18 sources) Pain in right foot; 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: [Pain in right foot] Onset: 02-24-2022 Episodic Other connective tissue disease (1 source) Pain in left lower limb; 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: [Pain in left leg] 04-23-2024 Episodic Other connective tissue disease (1 source) Pain in left leg; 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: [Pain in limb] 04-23-2024 Episodic Other diseases of veins and lymphatics [...] Onset: 05-03-2023 Chronic Other male genital disorders (7 sources) Phimosis; 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: [Phimosis] Onset: 03-22-2023 Episodic Other non-traumatic joint disorders (17 sources) Arthropathy associated with a neurological disorder; 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: [Charcot's joint, left ankle and foot] Chronic Other nutritional; endocrine; and metabolic disorders (20 sources) Obese class II; 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: [Body mass index (BMI) 37.0-37.9, adult] Chronic Other nutritional; endocrine; and metabolic disorders (20 sources) Obesity; 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: [Obesity, unspecified] 04-23-2024 Chronic Other nutritional; endocrine; and metabolic disorders [...] Chronic Other nutritional; endocrine; and metabolic disorders (2 sources) Obesity, unspecified; 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: [Obesity, unspecified] Onset: 01-06-2022 04-23-2024 Chronic Other nutritional; endocrine; and metabolic disorders (9 sources) Body mass index 30+ - obesity; [...] 39.9 in adult] Onset: 07-27-2023 Chronic Other nutritional; endocrine; and metabolic disorders (3 sources) Body mass index (BMI) 38.0-38.9, adult; 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: [Body Mass Index 38.0-38.9, adult] 02-07-2024 Chronic Other screening for suspected conditions (not [...] region] Onset: 11-01-2021 Chronic Superficial injury; contusion (10 sources) Blister (nonthermal), left great toe, initial [...] Onset: 12-31-2021 Episodic Other aftercare (9 sources) senior living (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; 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: [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] Onset: 03-24-2021 Resolved: 10-21-2021 Episodic Other aftercare (1 source) 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 (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 of oral hypoglycemic drugs; 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: [TRACTOR DRIVER USE ORAL HYPOGLYCEMIC DX] Onset: 01-06-2022 Episodic [...] Facility HbA1c HPLC (Bld) [Mass fract ion]on 02-07-2024 HbA1c (Bld) [Mass fraction] Hemoglobin A1c/Hemoglobin.total in Blood by HPLC [facility] No Panel Informationon 02-06 Bedside Glucose 119 [facility] Telemedicineon 01-23-2024 Telemedicine [id number] Caden Wills 1960 M Date Provider Department Center 01/23/2024 CAROLINE MARRERO [facility] [place] [facility] Family History Problem Relation Age of Onset Coronary artery disease Father Family Status - Relation Status Age at Father 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 Normal [facility] Cholesterol in LDL Calc [Mas s/Vol]on 01-20-2024 Cholesterol in LDL [Mass/Vol] 49.0 mg/dL [facility] Comment on above: <100 mg/dl [id number] 0-129 mg/dl NEAR OR ABOVE [id number] mg/dl BORDERLINE [id number] mg/dl HIGH>190 mg/dl VERY HIGH Cholesterol in VLDL Calc [Ma ss/Vol]on 01-20-2024 Cholesterol in VLDL [Mass/Vol] 26.6 mg/dL [facility] - Chemistry and C hemistry - challengeon 01-20-2024 Cholesterol [Mass/Vol] 107 mg/dL <=200 Fi [facility] Cholesterol in HDL [Mass/Vol] 32 mg/dL Low 40-60 [facility] Comment on above: > or =60 mg/dl - LOW CARDIOVASCULAR RISK<40 mg/dl - HIGH CARDIOVASCULAR RISK Triglyceride [Mass/Vol] 133 mg/dL <=150 F [facility] No Panel Informationon 01-19 Miscellaneous Test COMMENT . [facility] Comment on above: Test Ordered: [id number] Apolipoprotein BApolipoprotein B 68 mg/dL Reference Range: <90 Desirable < 90 Borderline High 90 - 99 High 100 - 130 Very High >130 ASCVD RISK THERAPEUTIC TARGET CATEGORY APO B (mg/dL) Very High Risk <80 (if extreme risk <70) High Risk <90 Moderate Risk <90Performed at: [employer] [id number] [place], [place] [id number] Director: Fletcher Patel MD, Phone: [phone] at: [employer] [address] [id number] Director: Toy Conroy PhD, Phone: [phone] Serum or plasma total choles terol/high density lipoprotein (HDL) cholesterol mass evelyn 01-20-2024 Cholesterol.total/Radha sterol in HDL [Mass ratio] 3.3 {ratio} [facility] Comment on above: 3.3 - 4.4 LOW RISK4. 4 - 7.1 AVERAGE RISK7.1 - 11.0 MODERATE RISK>11.0 HIGH RISK 29on 01-15-2024 29 Addended by: OPAL PEÑA on: 01/16/2024 10:44 AM Modules accepted: Orders [facility] 29 Addended by: CAROLINE SILVA on: 01/16/2024 12:14 PM Modules accepted: Orders [facility] Brian 01-15-2024 CHUYN Telephone (RICKEY) CADEN WILLS ([id number]) 1960 M Date Time Provider Department 01/15/24 JADA WILKINS During your visit today, we recorded the following information about you: Jada Wilkins APRN.CNP 01/15/2024 2:53 PM Signed ----- Message from Kourtney Sena sent at 01/15/2024 9:13 AM EDT ----- Regarding: Refill medication [facility] [place] [facility]ed over a refill request for Cephalexin - it is not on his current med list. Please advise and thank you, Jada Mccarthy APRN.CNP 01/15/2024 2:54 PM Signed See previous telephone encounter from 10/04/2023. Keflex has been on auto refill, and [facility] has already been asked to cancel this request. Jada Wilkins APRN.CNP Allergies As of Date: 01/15/2024 (No Known [...] Take 20 mEq by mouth. - omega 0-bor-lne-fish oil (FISH OIL) 100-160-1,000 mg cap Take [...] Encounter Status:Closed by JADA WILKINS on 01/15/24 [facility] Documentationon 01-15-2024 Documentation [id number] Caden Wills 1960 Date Provider Department Center 01/15/2024 CAROLINE MARRERO [facility] CARD [facility] Family History Problem Relation Age of Onset Coronary artery disease Father Family Status - Relation Status Age at Father Reason for Visit and Comments: PharmD Cardiology Consult [Other] Normal [facility] Brian 10-04-2023 CHUYN Telephone (RICKEY) CADEN WILLS ([id number]) 1960 M Date Time Provider Department 10/04/23 JADA WILKINS During your visit today, we recorded the following information about you: Jada Wilkins APRN.CHUY 10/04/2023 4:18 PM Signed ----- Message from Kourtney Hodge Patient Service Spec sent at 10/04/2023 7:36 AM EDT ----- Regarding: Medication refill [facility] refill request for Cephalexin 500 mg- it is not listed in his med list . Please advise and thank you, Jada Mccarthy APRN.CHUY 10/04/2023 4:25 PM Signed Keflex was prescribed for 1 month after buried penis surgery on 07/28/2023. Called Caden A [place]. He reports trying to cancel refill request for [facility] with [facility] but was unsuccessful. Denies concerns about infection. Reminded him that he should follow up with Dr. Alberto in the fall. Left voicemail at [facility] in [place], advising that Caden A Johann does NOT need refill on Keflex and asking them to take it off auto refill. Jada Wilkins APRN.LINEMAN APPRENTICE Allergies As of Date: 10/04/2023 (No Known [...] Take 20 mEq by mouth. - omega 8-xyz-cjs-fish oil (FISH OIL) 100-160-1,000 mg cap Take [...] Encounter Status:Closed by JADA WILKINS on 10/04/23 [facility] Consultation Noteon 09-18-19 Consultation Note [id number] .[id number] [facility] CNOVon 09-13-2023 CNOV Office Visit (UROLMN ) CADEN WILLS ([id number]) 1960 M Date Time Provider Department 09/13/23 [...] tablet Take 20 mEq by mouth. omega 9-tkr-ijm-fish oil (FISH OIL) 100-160-1,000 mg cap Take [...] Jian Alberto MD Referring Provider: GIOVANNI MULLIGAN [[id number]] Allergies As of Date: 09/13/2023 (No Known [...] CNOV Office Visit (UROLMN ) CADEN WILLS ([id number]) 1960 M Date Time Provider Department 08/04/23 2:30 PM GIOVANNI MULLIGAN During your visit today, we recorded the following information about you: Weight Height 124.3 kg 1.778 m Giovanni Mulligan MD 08/04/2023 5:46 PM Signed HPI Caden Wick Johann is a 63 year old male with [...] Take 20 mEq by mouth. - omega 4-bcm-rbs-fish oil (FISH OIL) 100-160-1,000 mg cap Take [...] Anion gap [Moles/Vol] 14 mmol/L Normal 9-18 [facility] Comment on above: Order Comment: Speci men Type: BLOOD SPECIMEN Ordering Facility: [facility] Address: [address] [place] [address] Performed By: #### 2 4321-2 #### [facility] CLIA [id number] [address] [place] [address] [place] Calcium [Mass/Vol] 8.9 mg/dL Normal 8.5-10.2 [facility] Comment on above: Order Comment: Speci men Type: BLOOD SPECIMEN Ordering Facility: [facility] Address: [address] [place] [address] Performed By: #### 2 4321-2 #### [facility] CLIA [id number] [address] [place] [address] [place] Chloride [Moles/Vol] 102 mmol/L Normal 97-105 [facility] Comment on above: Order Comment: Speci men Type: BLOOD SPECIMEN Ordering Facility: [facility] Address: [address] [place] [address] Performed By: #### 2 4321-2 #### [facility] CLIA [id number] [address] [place] [address] [place] CO2 [Moles/Vol] 23 mmol/L Normal 22-30 [facility] Comment on above: Order Comment: Speci men Type: BLOOD SPECIMEN Ordering Facility: [facility] Address: [address] [place] [address] Performed By: #### 2 4321-2 #### [facility] CLIA [id number] [address] [place] [address] [place] Creatinine [Mass/Vol] 0.71 mg/dL Low 0.73-1.22 [facility] Comment on above: Order Comment: Speci men Type: BLOOD SPECIMEN Ordering Facility: [facility] Address: [address] [place] [address] Performed By: #### 2 4321-2 #### [facility] CLIA [id number] [address] [place] [address] [place] Creatinine and Glomerular filtration rate.predicted panel (S/P/Bld) 104 mL/min/1.73m??? Normal >=60 [facility] Comment on above: Order Comment: Speci men Type: BLOOD SPECIMEN Ordering Facility: [facility] Address: [address] [place] [address] Result Comment: Leticia mated Glomerular Filtration Rate [...] GFR. Performed By: #### 2 4321-2 #### [facility] CLIA [id number] [address] [place] [address] [place] Glucose [Mass/Vol] 173 mg/dL High 74-99 [facility] Comment on above: Order Comment: Specbrynn villarreal Type: BLOOD SPECIMEN Ordering Facility: [facility] Address: [address] [place] [address] Result Comment: The [place] Diabetes Association (ADA) provides guidance for cutoff [...] Standards of Medical Care in Diabetes 2016, [place] [employer]. Diabetes Care. 2016.39(Suppl 1). Performed By: #### 2 4321-2 #### [facility] CLIA [id number] [address] [place] [address] [place] Potassium [Moles/Vol] 4.3 mmol/L Normal 3.7-5.1 [facility] Comment on above: Order Comment: Karina villarreal Type: BLOOD SPECIMEN Ordering Facility: [facility] Address: [address] [place] [address] Performed By: #### 2 4321-2 #### [facility] CLIA [id number] [address] [place], [place] [address] [place] Sodium [Moles/Vol] 139 mmol/L Normal 136-144 [facility] Comment on above: Order Comment: Speci men Type: BLOOD SPECIMEN Ordering Facility: [facility] Address: [address] [place] [address] Performed By: #### 2 4321-2 #### [facility] CLIA [id number] [address] [place] [address] [place] Urea nitrogen [Mass/Vol] 18 mg/dL Normal 9-24 [facility] Comment on above: Order Comment: Speci men Type: BLOOD SPECIMEN Ordering Facility: [facility] Address: [address] [place] [address] Performed By: #### 2 4321-2 #### [facility] CLIA [id number] [address] [place] [address] [place] CBC panel Auto (Bld)on 07-28 Erythrocyte distribution width (RBC) [Ratio] 15.8 % High 11.5-15.0 [facility] Comment on above: Order Comment: Speci men Type: BLOOD SPECIMEN Ordering Facility: [facility] Address: [address] [place] [address] Performed By: #### 5 8410-2 #### [facility] CLIA [id number] [address] [place] [address] [place] Hematocrit (Bld) [Volume fraction] 44.7 % Normal 39.0-51.0 [facility] Comment on above: Order Comment: Speci men Type: BLOOD SPECIMEN Ordering Facility: [facility] Address: [address] [place] [address] Performed By: #### 5 8410-2 #### [facility] CLIA [id number] [address] [place] [address] [place] Hemoglobin (Bld) [Mass/Vol] 14.5 g/dL Normal 13.0-17.0 [facility] Comment on above: Order Comment: Speci men Type: BLOOD SPECIMEN Ordering Facility: [facility] Address: [address] [place] [address] Performed By: #### 5 8410-2 #### [facility] CLIA [id number] [address] [place] [address] [place] MCH (RBC) [Entitic mass] 27.4 pg Normal 26.0-34.0 [facility] Comment on above: Order Comment: Speci men Type: BLOOD SPECIMEN Ordering Facility: [facility] Address: [address] [place] [address] Performed By: #### 5 8410-2 #### [facility] CLIA [id number] [address] [place] [address] [place] MCHC (RBC) [Mass/Vol] 32.4 g/dL Normal 30.5-36.0 [facility] Comment on above: Order Comment: Speci men Type: BLOOD SPECIMEN Ordering Facility: [facility] Address: [address] [place] [address] Performed By: #### 5 8410-2 #### [facility] CLIA [id number] [address] [place] [address] [place] MCV (RBC) [Entitic vol] 84.3 fL Normal 80.0-100.0 [facility] Comment on above: Order Comment: Speci men Type: BLOOD SPECIMEN Ordering Facility: [facility] Address: [address] [place] [address] Performed By: #### 5 8410-2 #### [facility] CLIA [id number] [address] [place] [address] [place] Nucleated RBC (Bld) [#/Vol] 10*3/uL Normal <0.01 [facility] Comment on above: Order Comment: Speci men Type: BLOOD SPECIMEN Ordering Facility: [facility] Address: [address] [place] [address] Performed By: #### 5 8410-2 #### [facility] CLIA [id number] [address] [place] [address] [place] Platelet mean volume (Bld) [Entitic vol] 9.6 fL Normal 9.0-12.7 [facility] Comment on above: Order Comment: Speci men Type: BLOOD SPECIMEN Ordering Facility: [facility] Address: [address] [place] [address] Performed By: #### 5 8410-2 #### [facility] CLIA [id number] [address] [place] [address] [place] Platelets (Bld) [#/Vol] 268 10*3/uL Normal 150-400 [facility] Comment on above: Order Comment: Speci men Type: BLOOD SPECIMEN Ordering Facility: [facility] Address: [address] [place] [address] Performed By: #### 5 8410-2 #### [facility] CLIA [id number] [address] [place] [address] [place] RBC (Bld) [#/Vol] 5.30 10*6/uL Normal 4.20-6.00 [facility] Comment on above: Order Comment: Speci men Type: BLOOD SPECIMEN Ordering Facility: [facility] Address: [address] [place] [address] Performed By: #### 5 8410-2 #### [facility] CLIA [id number] [address] [place] [address] [place] WBC (Bld) [#/Vol] 13.43 10*3/uL High 3.70-11.00 [facility] Comment on above: Order Comment: Speci men Type: BLOOD SPECIMEN Ordering Facility: [facility] Address: [address] [place] [address] Performed By: #### 5 8410-2 #### [facility] CLIA [id number] [address] [place] [address] [place] CNDSon 07-29-2023 CNDS HNO ID: [id number] Author: JIAN ALBERTO MD Service: Urology Author Type: Resident Type: Discharge Summary Filed: 07/29/2023 12:28 Note Text: Attestation signed by Jian Alberto MD at 07/29/2023 12:28 PM Discussed with resident, agree with claudia Alberto M.D. 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) Operations During Hospitalization: CYSTOSCOPY FLEXIBLE: 36992 (CPT?) SCROTOPLASTY V-Y: 14756 (CPT?) EXCISION, EXCESSIVE SKIN AND SUBCUTANEOUS TISSUE, OTHER AREA prepubic lipectomy with fixation of skin to pubic region: 12860 (CPT?) EXCISION LYSIS PENILE POST-CIRCUMCISION ADHESIONS: 79472 (CPT?) Procedures Performed While Hospitalized: Intubation Reason [...] OiL 100-160-1,000 mg Cap Generic drug: omega 6-vsw-xjw-fish oil insulin aspart U-100 100 unit/mL Commonly [...] Medications These medications were sent to e- [facility]/pharmacy [address] [phone] [place] [address] acetaminophen 325 mg tablet cephALEXin 500 mg capsule docusate sodium 100 mg capsule oxyCODONE IR 5 mg immediate release tablet Future Appointments: No future appointments. Electronically STEPHANIE (more content not included)... Normal [facility] ANES POSTPROC EVALon 024 ANES POSTPROC EVAL HNO ID: [id number] Author: CHILANGO CURIEL MD Service: ? Author Type: Anesthesiologist Type: Anesthesia Postprocedure Evaluation Filed: 07/28/2023 13:45 Note Text: POST ANESTHESIA EVALUATION NOTE : 1960 Procedure Summary Date: 07/28/23 Room / Location: [address] [facility] Anesthesia Start: 0950 Anesthesia Stop: 1254 Procedures: [...] July 28, 2023 TIME: 1:45 PM CSN: [id number] Normal [facility] ANES PRE-OPon 07-28-2023 ANES PRE-OP HNO ID: [id number] Author: CHILANGO CURIEL MD Service: ? Author [...] artery disease involving coronary bypass graft of [place] heart without angina pectoris (+) Paroxysmal atrial [...] and consent discussed: yes. Patient / Responsible Libertarian agrees to proceed: yes Patient / Surrogate agrees to blood products: Yes DNR status not reviewed with patient and/or family prior to surgery. Potential Anesthesia issues that may suggest increased risk of complications or contraindication to planned procedure: none. Vitals Value Taken Time BP 108/59 07/28/23 0751 Pulse 64 07/28/23 0751 Resp 18 07/28/23 0751 Temp 36.3 ?C (97.3 ?F) 07/28/23 0751 SpO2 96 % 07/28/23 075 Facility-Administered Medications as of 07/28/2023 Medication Dose [...] Take 20 mEq by mouth. - omega 7-aps-sqc-fish oil (FISH OIL) 100-160-1,000 mg cap Take 1,000 mg by mouth. I have interviewed and examined the patient. I have reviewed the medical record and/or the pre-anesthesia evaluation, pertinent labs, and test results. This contains updated information obtained within 48 hours of Surgery/Procedure. SIGNATURE: Chilango Curiel MD PATIENT NAME: Caden Wills DATE: July 28, 2023 TIME: 9:53 AM CSN: [id number] Normal [facility] BRIEF OP NOTon 07-28-2023 BRIEF OP NOT HNO ID: [id number] Author: JUICE GEE MD Service: Urology Author Type: Resident Type: Brief Op Note Filed: 07/28/2023 12:38 Note Text: BRIEF OPERATIVE / PROCEDURE NOTE LOG ID: [id number] SURGERY/PROCEDURE DATE: 07/28/2023 INCISION/PROCEDURE START TIME: 10:32 AM INCISION CLOSE/PROCEDURE END TIME: 12:25 PM SURGEON(S)/PROCEDURAL IST(S) AND ACADEMIC DEPARTMENT CHAIR(S): Surgeon(s) and Role: * Jian Alberto MD [...] Anion gap [Moles/Vol] 13 mmol/L Normal 9-18 [facility] Comment on above: Order Comment: Speci men Type: BLOOD SPECIMEN Ordering Facility: [facility] Address: [address] [place] [address] Performed By: #### 5 8410-2 #### [facility] CLIA [id number] [address] [place] [address] [place] Calcium [Mass/Vol] 9.3 mg/dL Normal 8.5-10.2 [facility] Comment on above: Order Comment: Speci men Type: BLOOD SPECIMEN Ordering Facility: [facility] Address: [address] [place] [address] Performed By: #### 5 8410-2 #### [facility] CLIA [id number] [address] [place] [address] [place] Chloride [Moles/Vol] 104 mmol/L Normal 97-105 [facility] Comment on above: Order Comment: Speci men Type: BLOOD SPECIMEN Ordering Facility: [facility] Address: [address] [place] [address] Performed By: #### 5 8410-2 #### [facility] CLIA [id number] [address] [place] [address] [place] CO2 [Moles/Vol] 23 mmol/L Normal 22-30 [facility] Comment on above: Order Comment: Speci men Type: BLOOD SPECIMEN Ordering Facility: [facility] Address: [address] [place] [address] Performed By: #### 5 8410-2 #### [facility] CLIA [id number] [address] [place] [address] [place] Creatinine [Mass/Vol] 0.75 mg/dL Normal 0.73-1.22 [facility] Comment on above: Order Comment: Speci men Type: BLOOD SPECIMEN Ordering Facility: [facility] Address: [address] [place] [address] Performed By: #### 5 8410-2 #### [facility] CLIA [id number] [address] [place] [address] [place] Creatinine and Glomerular filtration rate.predicted panel (S/P/Bld) 103 mL/min/1.73m??? Normal >=60 [facility] Comment on above: Order Comment: Speci men Type: BLOOD SPECIMEN Ordering Facility: [facility] Address: [address] [place] [address] Result Comment: Leticia mated Glomerular Filtration Rate [...] GFR. Performed By: #### 5 8410-2 #### [facility] CLIA [id number] [address] [place] [address] [place] Glucose [Mass/Vol] 182 mg/dL High 74-99 [facility] Comment on above: Order Comment: Speci men Type: BLOOD SPECIMEN Ordering Facility: [facility] Address: [address] [place] [address] Result Comment: The [place] Diabetes Association (ADA) provides guidance for cutoff [...] Standards of Medical Care in Diabetes 2016, [place] [employer]. Diabetes Care. 2016.39(Suppl 1). Performed By: #### 5 8410-2 #### [facility] CLIA [id number] [address] [place] [address] [place] Potassium [Moles/Vol] 4.7 mmol/L Normal 3.7-5.1 [facility] Comment on above: Order Comment: Speci men Type: BLOOD SPECIMEN Ordering Facility: [facility] Address: [address] [place] [address] Performed By: #### 5 8410-2 #### [facility] CLIA [id number] [address] [place] [address] [place] Sodium [Moles/Vol] 140 mmol/L Normal 136-144 [facility] Comment on above: Order Comment: Speci men Type: BLOOD SPECIMEN Ordering Facility: [facility] Address: [address] [place] [address] Performed By: #### 5 8410-2 #### [facility] CLIA [id number] [address] [place] [address] [place] Urea nitrogen [Mass/Vol] 16 mg/dL Normal 9-24 [facility] Comment on above: Order Comment: Speci men Type: BLOOD SPECIMEN Ordering Facility: [facility] Address: [address] [place] [address] Performed By: #### 5 8410-2 #### [facility] CLIA [id number] [address] [place] [address] [place] CBC panel Auto (Bld)on 07-27 Erythrocyte distribution width (RBC) [Ratio] 17.2 % High 11.5-15.0 [facility] Comment on above: Order Comment: Speci men Type: BLOOD SPECIMEN Ordering Facility: [facility] Address: [address] [place] [address] Performed By: #### 5 8410-2 #### [facility] CLIA [id number] [address] [place] [address] [place] Hematocrit (Bld) [Volume fraction] 50.7 % Normal 39.0-51.0 [facility] Comment on above: Order Comment: Speci men Type: BLOOD SPECIMEN Ordering Facility: [facility] Address: [address] [place] [address] Performed By: #### 5 8410-2 #### [facility] CLIA [id number] [address] [place] [address] [place] Hemoglobin (Bld) [Mass/Vol] 16.6 g/dL Normal 13.0-17.0 [facility] Comment on above: Order Comment: Speci men Type: BLOOD SPECIMEN Ordering Facility: [facility] Address: [address] [place] [address] Performed By: #### 5 8410-2 #### [facility] CLIA [id number] [address] [place] [address] [place] MCH (RBC) [Entitic mass] 27.7 pg Normal 26.0-34.0 [facility] Comment on above: Order Comment: Speci men Type: BLOOD SPECIMEN Ordering Facility: [facility] Address: [address] [place] [address] Performed By: #### 5 8410-2 #### [facility] CLIA [id number] [address] [place] [address] [place] MCHC (RBC) [Mass/Vol] 32.7 g/dL Normal 30.5-36.0 [facility] Comment on above: Order Comment: Speci men Type: BLOOD SPECIMEN Ordering Facility: [facility] Address: [address] [place] [address] Performed By: #### 5 8410-2 #### [facility] CLIA [id number] [address] [place] [address] [place] MCV (RBC) [Entitic vol] 84.6 fL Normal 80.0-100.0 [facility] Comment on above: Order Comment: Speci men Type: BLOOD SPECIMEN Ordering Facility: [facility] Address: [address] [place] [address] Performed By: #### 5 8410-2 #### [facility] CLIA [id number] [address] [place] [address] [place] Nucleated RBC (Bld) [#/Vol] 10*3/uL Normal <0.01 [facility] Comment on above: Order Comment: Speci men Type: BLOOD SPECIMEN Ordering Facility: [facility] Address: [address] [place] [address] Performed By: #### 5 8410-2 #### [facility] CLIA [id number] [address] [place] [address] [place] Platelet mean volume (Bld) [Entitic vol] 9.5 fL Normal 9.0-12.7 [facility] Comment on above: Order Comment: Speci men Type: BLOOD SPECIMEN Ordering Facility: [facility] Address: [address] [place] [address] Performed By: #### 5 8410-2 #### [facility] [facility] CLIA [id number] [address] [place] [address] [place] Platelets (Bld) [#/Vol] 284 10*3/uL Normal 150-400 [facility] Comment on above: Order Comment: Speci men Type: BLOOD SPECIMEN Ordering Facility: [facility] Address: [address] [place] [address] Performed By: #### 5 8410-2 #### [facility] CLIA [id number] [address] [place] [address] [place] RBC (Bld) [#/Vol] 5.99 10*6/uL Normal 4.20-6.00 [facility] Comment on above: Order Comment: Speci men Type: BLOOD SPECIMEN Ordering Facility: [facility] Address: [address] [place] [address] Performed By: #### 5 8410-2 #### [facility] CLIA [id number] [address] [place] [address] [place] WBC (Bld) [#/Vol] 10.10 10*3/uL Normal 3.70-11.00 [facility] Comment on above: Order Comment: Speci men Type: BLOOD SPECIMEN Ordering Facility: [facility] Address: [address] [place] [address] Performed By: #### 5 8410-2 #### [facility] CLIA [id number] [address] [place] [address] [place] NURSING PROGon 07-28-2023 NURSING PROG HNO ID: [id number] Author: DAVID MCLAUGHLIN RN Service: ? Author Type: Registered Nurse Type: Nursing Progress Note Filed: 07/28/2023 14:53 Note Text: Admission/Transfer Note PATIENT NAME: Caden Wills Patient Location: [facility]/M081-06 Room: [place] [address] Patient admitted from PACU via bed in stable condition. Actions taken: Patient oriented to room, call light function, prescribed activities, Patient rights, and Quiet at night. Patient belongings with patient. This note was completed by: David Mcintosh [facility] SURGICAL PATHOLOGYon 024 CASE REPORT Normal [facility] Comment on above: Order Comment: Speci men Type: BLOOD SPECIMEN Ordering Facility: [facility] Address: [address] [place] [address] Result Comment: Surg ical Pathology Report Case: [id number] Authorizing Provider: Jian Alberto MD Collected: 07/28/2023 10:42 AM Ordering Location: Admitting Received: 07/28/2023 12:18 PM Pathologist: Rajat Corbin MD Specimen: Soft Tissue (Not otherwise specified), penile skin Performed By: #### 5 8410-2 #### [facility] CLIA [id number] [address] [place] [address] [place] CLINICAL HISTORY Normal [facility] Comment on above: Order Comment: Speci men Type: BLOOD SPECIMEN Ordering Facility: [facility] Address: [address] [place] [address] Result Comment: 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] Performed By: #### 5 8410-2 #### [facility] CLIA [id number] [address] [place] [address] [place] DIAGNOSIS COMMENT Normal [facility] Comment on above: Order Comment: Speci men Type: BLOOD SPECIMEN Ordering Facility: [facility] Address: [address] [place] [address] Result Comment: A PA S stain performed [...] been determined by the performing laboratory within [facility]???s [facility] Pathology and Laboratory Medicine Department ([facility], [facility], [facility], [facility], [facility], [facility], or [facility]) in a manner consistent with CLIA requirements. One or more of these tests have not been cleared or approved by the FDA. [facility] is regulated under CLIA as qualified to perform high-complexity testing. These tests are used for clinical purposes. They should not be regarded as investigational or for research. Positive and negative controls stain appropriately. Performed By: #### 5 8410-2 #### [facility] CLIA [id number] [address] [place] [address] FINAL DIAGNOSIS Normal [facility] Comment on above: Order Comment: Speci men Type: BLOOD SPECIMEN Ordering Facility: [facility] Address: [address] [place] [address] Result Comment: Peni le skin, excision: - Benign skin with acute and chronic inflammation and rare fungal organisms morphologically consistent with Sydnee species. Performed By: #### 5 8410-2 #### [facility] CLIA [id number] [address] [place] [address] FINAL PERFORMING LAB Normal [facility] Comment on above: Order Comment: Speci men Type: BLOOD SPECIMEN Ordering Facility: [facility] Address: [address] [place] [address] Result Comment: Diag nostic interpretation performed at [facility], [address] [place] [address] CLIA# [id number] Ecommerce Manager: Jose Power M.D. Performed By: #### 5 8410-2 #### [facility] CLIA [id number] [address] [place] [address] OF [facility] GROSS DESCRIPTION Normal [facility] Comment on above: Order Comment: Speci men Type: BLOOD SPECIMEN Ordering Facility: [facility] Address: [address] [place] [address] Result Comment: A. S oft Tissue (Not otherwise specified) Received fresh labeled penile skin is a rectangular excision of pink skin measuring 4.5 x 2.5 x 0.3 cm. The skin surface is smooth and glistening without lesion. The resection margin is cauterized and roughened. The cut surfaces are soft and glistening. Bending Frame Operator sections are submitted in cassette A1. OLIVA July 28, 2023 12:39 PM Gross examination performed at [facility], [address] [place], [place] [id number] CLIA# [id number] Performed By: #### 5 8410-2 #### [facility] CLIA [id number] [address] [place] [address] [place] CBC panel Auto (Bld)on 07-26 Erythrocyte distribution width (RBC) [Ratio] 16.1 % High 11.5-15.0 [facility] Comment on above: Order Comment: Speci men Type: BLOOD SPECIMEN Ordering Facility: [facility] Address: [address] [place] [address] Performed By: #### 5 8410-2 #### [facility] CLIA [id number] [address] [place] [address] [place] Hematocrit (Bld) [Volume fraction] 51.6 % High 39.0-51.0 [facility] Comment on above: Order Comment: Speci men Type: BLOOD SPECIMEN Ordering Facility: [facility] Address: [address] [place] [address] Performed By: #### 5 8410-2 #### [facility] CLIA [id number] [address] [place] [address] [place] Hemoglobin (Bld) [Mass/Vol] 16.6 g/dL Normal 13.0-17.0 [facility] Comment on above: Order Comment: Speci men Type: BLOOD SPECIMEN Ordering Facility: [facility] Address: [address] [place] [address] Performed By: #### 5 8410-2 #### [facility] CLIA [id number] [address] [place] [address] [place] MCH (RBC) [Entitic mass] 27.6 pg Normal 26.0-34.0 [facility] Comment on above: Order Comment: Speci men Type: BLOOD SPECIMEN Ordering Facility: [facility] Address: [address] [place] [address] Performed By: #### 5 8410-2 #### [facility] CLIA [id number] [address] [place] [address] [place] MCHC (RBC) [Mass/Vol] 32.2 g/dL Normal 30.5-36.0 [facility] Comment on above: Order Comment: Speci men Type: BLOOD SPECIMEN Ordering Facility: [facility] Address: [address] [place] [address] Performed By: #### 5 8410-2 #### [facility] CLIA [id number] [address] [place] [address] [place] MCV (RBC) [Entitic vol] 85.7 fL Normal 80.0-100.0 [facility] Comment on above: Order Comment: Speci men Type: BLOOD SPECIMEN Ordering Facility: [facility] Address: [address] [place] [address] Performed By: #### 5 8410-2 #### [facility] CLIA [id number] [address] [place] [address] [place] Nucleated RBC (Bld) [#/Vol] 10*3/uL Normal <0.01 [facility] Comment on above: Order Comment: Speci men Type: BLOOD SPECIMEN Ordering Facility: [facility] Address: [address] [place] [address] Performed By: #### 5 8410-2 #### [facility] CLIA [id number] [address] [place] [address] [place] Platelet mean volume (Bld) [Entitic vol] 10.3 fL Normal 9.0-12.7 [facility] Comment on above: Order Comment: Speci men Type: BLOOD SPECIMEN Ordering Facility: [facility] Address: [address] [place] [address] Performed By: #### 5 8410-2 #### [facility] CLIA [id number] [address] [place] [address] [place] Platelets (Bld) [#/Vol] 264 10*3/uL Normal 150-400 [facility] Comment on above: Order Comment: Speci men Type: BLOOD SPECIMEN Ordering Facility: [facility] Address: [address] [place] [address] Performed By: #### 5 8410-2 #### [facility] CLIA [id number] [address] [place] [address] [place] RBC (Bld) [#/Vol] 6.02 10*6/uL High 4.20-6.00 [facility] Comment on above: Order Comment: Speci men Type: BLOOD SPECIMEN Ordering Facility: [facility] Address: [address] [place] [address] Performed By: #### 5 8410-2 #### [facility] CLIA [id number] [address] [place] [address] [place] WBC (Bld) [#/Vol] 10.12 10*3/uL Normal 3.70-11.00 [facility] Comment on above: Order Comment: Speci men Type: BLOOD SPECIMEN Ordering Facility: [facility] Address: [address] [place] [address] Performed By: #### 5 8410-2 #### [facility] CLIA [id number] [address] [place] [address] [place] Comprehensive metabolic 2000 panelon 07-27-2023 Albumin [Mass/Vol] 4.3 g/dL Normal 3.9-4.9 [facility] Comment on above: Order Comment: Speci men Type: BLOOD SPECIMEN Ordering Facility: [facility] Address: [address] [place] [address] Performed By: #### 5 8410-2 #### [facility] CLIA [id number] [address] [place] [address] [place] ALP [Catalytic activity/Vol] 100 U/L Normal 38-113 [facility] Comment on above: Order Comment: Speci men Type: BLOOD SPECIMEN Ordering Facility: [facility] Address: [address] [place] [id number] Performed By: #### 5 8410-2 #### [facility] CLIA [id number] [address] [place] [id number] [place] ALT [Catalytic activity/Vol] 33 U/L Normal 10-54 [facility] Comment on above: Order Comment: Speci men Type: BLOOD SPECIMEN Ordering Facility: [facility] Address: [address] [place] [address] Performed By: #### 5 8410-2 #### [facility] CLIA [id number] [address] [place] [address] [place] Anion gap [Moles/Vol] 14 mmol/L Normal 9-18 [facility] Comment on above: Order Comment: Speci men Type: BLOOD SPECIMEN Ordering Facility: [facility] Address: [address] [place] [address] Performed By: #### 5 8410-2 #### [facility] CLIA [id number] [address] [place] [address] [place] AST [Catalytic activity/Vol] 26 U/L Normal 14-40 [facility] Comment on above: Order Comment: Speci men Type: BLOOD SPECIMEN Ordering Facility: [facility] Address: [address] [place] [id number] Performed By: #### 5 8410-2 #### [facility] CLIA [id number] [address] [place], [place] [address] [place] Bilirubin [Mass/Vol] 0.2 mg/dL Normal 0.2-1.3 [facility] Comment on above: Order Comment: Speci men Type: BLOOD SPECIMEN Ordering Facility: [facility] Address: [address] [place], [place] [address] Performed By: #### 5 8410-2 #### [facility] CLIA [id number] [address] [place] [address] [place] Calcium [Mass/Vol] 10.5 mg/dL High 8.5-10.2 [facility] Comment on above: Order Comment: Speci men Type: BLOOD SPECIMEN Ordering Facility: [facility] Address: [address] [place] [address] Performed By: #### 5 8410-2 #### [facility] CLIA [id number] [address] [place] [address] [place] Chloride [Moles/Vol] 101 mmol/L Normal 97-105 [facility] Comment on above: Order Comment: Speci men Type: BLOOD SPECIMEN Ordering Facility: [facility] Address: [address] [place] [address] Performed By: #### 5 8410-2 #### [facility] CLIA [id number] [address] [place] [address] [place] CO2 [Moles/Vol] 25 mmol/L Normal 22-30 [facility] Comment on above: Order Comment: Speci men Type: BLOOD SPECIMEN Ordering Facility: [facility] Address: [address] [place] [address] Performed By: #### 5 8410-2 #### [facility] CLIA [id number] [address] [place] [address] [place] Creatinine [Mass/Vol] 0.73 mg/dL Normal 0.73-1.22 [facility] Comment on above: Order Comment: Speci men Type: BLOOD SPECIMEN Ordering Facility: [facility] Address: [address] [place] [address] Performed By: #### 5 8410-2 #### [facility] CLIA [id number] [address] [place] [address] [place] Creatinine and Glomerular filtration rate.predicted panel (S/P/Bld) 104 mL/min/1.73m??? Normal >=60 [facility] Comment on above: Order Comment: Karina villarreal Type: BLOOD SPECIMEN Ordering Facility: [facility] Address: [address] [place] [address] Result Comment: Leticia mated Glomerular Filtration Rate [...] GFR. Performed By: #### 5 8410-2 #### [facility] CLIA [id number] [address] [place] [address] [place] Glucose [Mass/Vol] 82 mg/dL Normal 74-99 [facility] Comment on above: Order Comment: Karina villarreal Type: BLOOD SPECIMEN Ordering Facility: [facility] Address: [address] [place] [address] Result Comment: The [place] Diabetes Association (ADA) provides guidance for cutoff [...] Standards of Medical Care in Diabetes 2016, [place] Diabetes Association. Diabetes Care. 2016.39(Suppl 1). Performed By: #### 5 8410-2 #### [facility] CLIA [id number] [address] [place] [address] [place] Potassium [Moles/Vol] 4.1 mmol/L Normal 3.7-5.1 [facility] Comment on above: Order Comment: Karina villarreal Type: BLOOD SPECIMEN Ordering Facility: [facility] Address: [address] [place] [address] Performed By: #### 5 8410-2 #### [facility] CLIA [id number] [address] [place] [address] [place] Protein [Mass/Vol] 7.6 g/dL Normal 6.3-8.0 [facility] Comment on above: Order Comment: Speci men Type: BLOOD SPECIMEN Ordering Facility: [facility] Address: [address] [place] [address] Performed By: #### 5 8410-2 #### [facility] CLIA [id number] [address] [place] [address] [place] Sodium [Moles/Vol] 140 mmol/L Normal 136-144 [facility] Comment on above: Order Comment: Speci men Type: BLOOD SPECIMEN Ordering Facility: [facility] Address: [address] [place] [address] Performed By: #### 5 8410-2 #### [facility] CLIA [id number] [address] [place] [address] [place] Urea nitrogen [Mass/Vol] 17 mg/dL Normal 9-24 [facility] Comment on above: Order Comment: Speci men Type: BLOOD SPECIMEN Ordering Facility: [facility] Address: [address] [place] [address] Performed By: #### 5 8410-2 #### [facility] CLIA [id number] [address] [place] [address] [place] Erythrocyte distribution wid th Auto (RBC) [Ratio]on 07-27-2023 Erythrocyte distribution width (RBC) [Ratio] 16.1 % High 11.5-15.0 [facility] Glucose mean value [Mass/vol ume] in Blood Estimated from glycated hemoglobinon 07-27-2023 Average glucose Estimated from glycated hemoglobin (Bld) [Mass/Vol] 157 mg/dL [facility] Comment on above: eAG: (Estimated aver age glucose) is a calculated value from HgbA1c and is health and safety representative of the average blood glucose level in the last 2-3 month period. HISTORY PHYSICALon HISTORY PHYSICAL HNO ID: [id number] Author: KEVIN GOLDSMITH APRN.LINEMAN APPRENTICE Service: ? Author Type: Nurse Practitioner Type: [...] artery disease involving coronary bypass graft of [place] heart without angina pectoris CAD, hx of [place] s/p CABG x 5 in Dec 2021. [...] cardiac events (< 1% chance of , [place], CHF, malignant ventricular arrhythmias or high grade [...] note 06/19/23 notes the following, Echo 03/30/22 ([facility]) - Global LV systolic function is difficult [...] have a large neck STOP-Bang Score: 5 [id number] Score: Age: <65 Sex: male CHF history: Yes Hypertension history: Yes Stroke/TIA/thromboemb olism history: No Vascular disease history: Yes Diabetes history: Yes [id number] Score: 4 ARISCAT Score: Age: 51-80 Preoperative [...] from glycated hemoglobin (Bld) [Mass/Vol] 157 mg/dL [facility] HbA1c (Bld) [Mass fraction] 7.1 % High 4.3 - 5.6 % [facility] Average glucose Estimated from glycated hemoglobin (Bld) [Mass/Vol] 157 mg/dL Normal [facility] Comment on above: Order Comment: Karina villarreal Type: BLOOD SPECIMEN Ordering Facility: [facility] Address: [address] [place] [address] Result Comment: eAG: (Estimated average glucose) is a calculated value from HgbA1c and is health and safety representative of the average blood glucose level in the last 2-3 month period. Performed By: #### 5 8410-2 #### [facility] CLIA [id number] [address] [place] [address] [place] HbA1c (Bld) [Mass fraction] 7.1 % High 4.3-5.6 [facility] Comment on above: Order Comment: Karina villarreal Type: BLOOD SPECIMEN Ordering Facility: [facility] Address: [address] [place] [address] Result Comment: [place] Diabetes Association guidelines indicate that patients with HgbA1c in the range 5.7-6.4% are at increased risk for development of diabetes, and intervention by lifestyle modification may be beneficial. HgbA1c greater or equal to 6.5% is considered diagnostic of diabetes. Performed By: #### 5 8410-2 #### [facility] CLIA [id number] [address] [place] [id number] [place] Hematocrit Auto (Bld) [Volum e fraction]on 07-27-2023 Hematocrit (Bld) [Volume fraction] 51.6 % High 39.0-51.0 [facility] Hemoglobin [Mass/volume] in Bloodon 07-27-2023 Hemoglobin (Bld) [Mass/Vol] 16.6 g/dL 13.0-17.0 [facility] Laboratory - Chemistry and C hemistry - challengeon 07-27-2023 Albumin [Mass/Vol] 4.3 g/dL 3.9-4.9 [facility] ALP [Catalytic activity/Vol] 100 U/L 38-113 [facility] ALT [Catalytic activity/Vol] 33 U/L 10-54 [facility] AST [Catalytic activity/Vol] 26 U/L 14-40 [facility] Bilirubin [Mass/Vol] 0.2 mg/dL 0.2-1.3 [facility] Calcium [Mass/Vol] 10.5 mg/dL High 8.5-10.2 [facility] Chloride [Moles/Vol] 101 mmol/L 97-105 [facility] CO2 [Moles/Vol] 25 mmol/L 22-30 [facility] Creatinine [Mass/Vol] 0.73 mg/dL 0.73-1.[address] [facility] Glucose [Mass/Vol] 82 mg/dL 74-99 [facility] Comment on above: The [place] Diabete s Association (ADA) provides guidance for [...] Standards of Medical Care in Diabetes 2016, [place] Diabetes Association. Diabetes Care. 2016.39(Suppl 1). Potassium [Moles/Vol] 4.1 mmol/L 3.7-5.[address] [facility] Sodium [Moles/Vol] 140 mmol/L 136-144 [facility] Urea nitrogen [Mass/Vol] 17 mg/dL 9 [facility] Laboratory - Hematology and Cell countson 07-27-2023 HbA1c (Bld) [Mass fraction] 7.1 % High 4.3-5.6 [facility] Comment on above: [place] Diabetes As sociation guidelines indicate that patients [...] RBC Auto (Bld) [#/Vol] 10.12 k/uL 3.70-11.00 [facility] MCH Auto (RBC) [Entitic mass ]on 07-27-2023 MCH (RBC) [Entitic mass] 27.6 pg 26.0-34.0 [facility] MCHC Auto (RBC) [Mass/Vol]on 07-27-2023 MCHC (RBC) [Mass/Vol] 32.2 g/dL 30.5-36.[address] [facility] MCV Auto (RBC) [Entitic vol] on 07-27-2023 MCV (RBC) [Entitic vol] 85.7 fL 80.0-100.0 [facility] No Panel Informationon 07-26 Estimated GFR (CKD-EPI) 104 mL/min/1.73m??? >=6 0 [facility] Comment on above: Estimated Glomerular Filtration Rate [...] 07-27-2023 Nucleated RBC (Bld) [#/Vol] 10*3/uL <0.01 [facility] Platelet mean volume Auto (B ld) [Entitic vol]on 07-27-2023 Platelet mean volume (Bld) [Entitic vol] 10.3 fL 9.0-12.7 [facility] Platelets Auto (Bld) [#/Vol] on 07-27-2023 Platelets (Bld) [#/Vol] 264 10*3/uL 150-400 [facility] Protein [Mass/volume] in Ser um or Plasmaon 07-27-2023 Protein [Mass/Vol] 7.6 g/dL 6.3-8.0 [facility] RBC Auto (Bld) [#/Vol]on RBC (Bld) [#/Vol] 6.02 10*6/uL High 4.20-6.00 [facility] Serum or plasma anion gap de terminationon 07-27-2023 Anion gap [Moles/Vol] 14 mmol/L 9-[address] [facility] CNPNon 07-18-2023 CNPN Telephone (RICKEY) CADEN WILLS ([id number]) 1960 M Date Time Provider Department 07/18/23 [...] round with a 6:00 arrival time at [facility]. States that he will be going home after pre ops on 07/26 and coming back the following day. No other questions or concerns expressed. 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 - omega 1-sqn-qaa-fish oil (FISH OIL) 100-160-1,000 mg cap Take [...] 06-21-2023 HbA1c (Bld) [Mass fraction] 7.4 % [facility] No Panel Informationon 06-20 Bedside Glucose 133 [facility] CNPNon 06-20-2023 CNPN Telephone (URON) JOHANNCADEN A ([id number]) 1960 M Date Time Provider Department 06/20/23 NOY MARY During your visit today, we recorded the following information about you: Noy Mary, RN 06/20/2023 12:26 PM Signed Called Caden Wills and LVM to confirm surgery date of 07/[address] Alberto. Discussed pre op testing on 07/26 in [place]. 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 - omega 0-urc-tiz-fish oil (FISH OIL) 100-160-1,000 mg cap Take [...] CNOV Office Visit (CARDWH ) CADEN WILLS ([id number]) 1960 M Date Time Provider Department 06/19/23 1:00 PM LIGIA COLMENARES CARD During your visit today, we recorded the following information about you: Pulse Blood pressure Weight 68/minute 112/68 124.3 kg Ligia Colmenares MD 06/19/2023 1:23 PM Signed [facility] Heart and Vascular [place] Rob Borden Department of Cardiovascular Medicine SECTION [...] furniture (8.00 METs). 12/06/2022 Robyn Miller Cardiology- [facility] HPI Pleasant 62-year-old man with prior history of coronary disease status post percutaneous intervention to chronically occluded LAD in 2007. Additional history includes diabetes, hypertension and hyperlipidemia. He was admitted in December 2021 to [facility] with chest pain and diagnosed with [...] 1 tablet by mouth every afternoon. omega 4-gqk-sdw-fish oil (FISH OIL) 100-160-1,000 mg cap Take [...] 06-19-2023 Cholesterol in LDL [Mass/Vol] 66.0 mg/dL [facility] Comment on above: <100 mg/dl [id number] 0-129 mg/dl NEAR OR ABOVE [id number] mg/dl BORDERLINE [id number] mg/dl HIGH>190 mg/dl VERY HIGH Cholesterol in VLDL Calc [Ma ss/Vol]on 06-19-2023 Cholesterol in VLDL [Mass/Vol] 43.0 mg/dL [facility] ECG COMPLETEon 06-19-2023 Atrial Rate 68 BPM [facility] Calculated P [place] 53 degrees [facility] Calculated R [place] 20 degrees [facility] Calculated T [place] 86 degrees [facility] P-R Interval 188 ms [facility] QRS Duration 88 ms [facility] QT Interval 414 ms [facility] QTC Calculation (Bazett) 440 ms [facility] Ventricular Rate 68 BPM [facility] ECG COMPLETE Ventricular Rate : 6 8 BPM Atrial Rate : 68 BPM P-R Interval : 188 ms QRS Duration : 88 ms Q-T Interval : 414 ms QTC Calculation(Bazett) : 440 ms Calculated P [place] : 53 degrees Calculated R [place] : 20 degrees Calculated T [place] : 86 degrees NORMAL SINUS RHYTHM LOW VOLTAGE QRS NONSPECIFIC ST ABNORMALITY ABNORMAL ECG Confirmed by LIGIA COLMENARES M.D. ([id number]), continuity editor Lainey Agee ([id number]) on 06/19/2023 2:11:39 PM NAME : CADEN WILLS PID : [id number] : 1960 Gender : Male Race : Unknown ORD : [id number] Procedure Date : Jun 19 2023 13:03:26 Edit Date : Jun 19 2023 14:11:40 Diagnosis: NORMAL SINUS RHYTHM LOW VOLTAGE QRS NONSPECIFIC ST ABNORMALITY ABNORMAL ECG Confirmed by LIGIA COLMENARES M.D. ([id number]), continuity editor Lainey Agee ([id number]) on 06/19/2023 2:11:39 PM Test Reason : Location : 105 : [facility] Overread By : LIGIA COLMENARES M.D. Edited By : Lainey Agee Referred By : LIGIA COLMENARES Acquired by : Arnaldo waters [facility] Estimated glomerular filtrat ion rate (GFR) non- Americanon 06-19-2023 GFR/1.73 sq M.predicted among non-blacks MDRD (S/P/Bld) [Vol rate/Area] mL/min/{1.73_m2} >=60 [facility] Laboratory - Chemistry and C hemistry - challengeon 06-19-2023 Calcium [Mass/Vol] 8.7 mg/dL 8.5-10.1 [facility] Chloride [Moles/Vol] 103 mmol/L 98-107 [facility] Cholesterol [Mass/Vol] 141 mg/dL <=200 [facility] Cholesterol in HDL [Mass/Vol] 32 mg/dL 40-60 [facility] Comment on above: > or =60 mg/dl - LOW CARDIOVASCULAR RISK<40 mg/dl - HIGH CARDIOVASCULAR RISK CO2 [Moles/Vol] 29.5 mmol/L 21.0-32.0 [facility] Creatinine [Mass/Vol] 0.86 mg/dL 0.70-1.[address] [facility] GFR/1.73 sq M.predicted MDRD (S/P/Bld) [Vol rate/Area] mL/min/{1.73_m2} >=60 [facility] Glucose [Mass/Vol] 143 mg/dL 74-106 [facility] Potassium [Moles/Vol] 4.2 mmol/L 3.5-5.[address] [facility] Sodium [Moles/Vol] 141 mmol/L 136-145 [facility] Triglyceride [Mass/Vol] 215 mg/dL <=150 [facility] Urea nitrogen [Mass/Vol] 15.0 mg/dL 7.0-18.0 [facility] Urea nitrogen/Creatinine [Mass ratio] 17.4 mg/mg [facility] Office Visiton 06-19-2023 Follow-up visit [id number] Caden Wills 1960 M Date Provider Department Center 06/19/2023 SIMBA REYEZ BOB [facility] Family History Problem Relation Age of Onset Coronary artery disease Father Family Status - Relation Status Age at Father Level of Service:14695 [place] OFFICE/OUTPATIENT ESTABLISHED MOD MDM 30 MIN Normal [facility] Serum or plasma anion gap de terminationon 06-19-2023 Anion gap [Moles/Vol] 12.7 mmol/L [facility] Serum or plasma total choles terol/high density lipoprotein (HDL) cholesterol mass evelyn 06-19-2023 Cholesterol.total/Radha sterol in HDL [Mass ratio] 4.4 {ratio} [facility] Comment on above: 3.3 - 4.4 LOW RISK4. 4 - 7.1 AVERAGE RISK7.1 - 11.0 MODERATE RISK>11.0 HIGH RISK Brian 06-14-2023 AIMEE Telephone (URON) CADEN WILLS ([id number]) 1960 M Date Time Provider Department 06/14/23 NOY MARY During your visit today, we recorded the following information about you: Noy Mary RN 06/14/2023 9:45 AM Signed Called Caden Wills and LVM to confirm surgery date of 07/[address] Alberto. Discussed pre op testing on 07/26 in [place], or he could make two trips. Asked him to confirm Asked patient to confirm receipt, and voice any questions or concerns. Number provided. 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 - omega 1-jae-uwr-fish oil (FISH OIL) 100-160-1,000 mg cap Take 1,000 mg by mouth. - bumetanide (BUMEX ORAL) Take by mouth. 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 - omega 5-bdm-mhp-fish oil (FISH OIL) 100-160-1,000 mg cap Take 1,000 mg by mouth. - bumetanide (BUMEX ORAL) Take by mouth. 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 00TIFF Arnaldo [facility] CNOVon 05-03-2023 CNOV Office Visit (UROLMN ) CADEN WILLS ([id number]) 1960 M Date Time Provider Department 05/03/23 2:00 PM JIAN ALBERTO UROCARMEN During your visit today, we recorded the following information about you: Pulse Blood pressure Weight Height 67/minute 137/78 123.4 kg 1.778 m Jian Alberto MD 05/03/2023 2:28 PM Signed [facility] NEW PATIENT HISTORY AND PHYSICAL EXAM PATIENT INFO: Caden Wills 63 year old REFERRING M.D.: Antonia Bush MD [address] [place] [address] This consult was requested by Dr. Bush for an opinion regarding buried penis and erectile dysfunction, and my final recommendations will be communicated to the requesting health care provider by way of the shared medical record for internal providers or letter via the [employer] for external providers. 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 , interested in future sexual life. MEDICATIONS: [...] ICon 05-03-2023 Bilirubin Ql (U) Negative Negative [facility] Clarity (Unsp spec) Clear Clear [facility] Color (U) Light Yellow Yellow [facility] Glucose Test strip (U) [Mass/Vol] 4+ Abnormal Trace, Negative [facility] Hemoglobin Ql (U) Negative Negative, Trace [facility] Ketones Ql (U) Negative Negative, Trace [facility] Leukocyte esterase Test strip Ql (U) 25 Quintin/uL Negative, 25 Quintin/uL [facility] Nitrite Ql (U) Negative Negative [facility] pH (U) 5.5 [pH] 5.0 - 8.0 [facility] Protein (U) [Mass/Vol] Negative Trace , Negative [facility] Specific gravity (U) [Rel density] 1.032 High 1.005 - 1.030 [facility] Urobilinogen Ql (U) Negative Negative [facility] Bilirubin Ql (U) Negative Normal Negative [facility] Comment on above: Order Comment: Speci men Type: BLOOD SPECIMEN Ordering Facility: [facility] Address: [address] [place] [address] Performed By: #### 5 8410-2 #### [facility] CLIA [id number] [address] [place] [address] [place] Clarity (Unsp spec) Clear Normal Clear [facility] Comment on above: Order Comment: Speci men Type: BLOOD SPECIMEN Ordering Facility: [facility] Address: [address] [place] [address] Performed By: #### 5 8410-2 #### [facility] CLIA [id number] [address] [place] [address] [place] Color (U) Light Yellow Normal Yellow [facility] Comment on above: Order Comment: Speci men Type: BLOOD SPECIMEN Ordering Facility: [facility] Address: [address] [place] [address] Performed By: #### 5 8410-2 #### [facility] CLIA [id number] [address] [place] [address] [place] Glucose Test strip (U) [Mass/Vol] 4+ Abnormal Trace, Negative [facility] Comment on above: Order Comment: Speci men Type: BLOOD SPECIMEN Ordering Facility: [facility] Address: [address] [place] [address] Performed By: #### 5 8410-2 #### [facility] CLIA [id number] [facility] [place] [address] [place] Hemoglobin Ql (U) Negative Normal Negative, Trace [facility] Comment on above: Order Comment: Speci men Type: BLOOD SPECIMEN Ordering Facility: [facility] Address: [address] [place] [address] Performed By: #### 5 8410-2 #### [facility] CLIA [id number] [address] [place] [address] [place] Ketones Ql (U) Negative Normal Negative, Trace [facility] Comment on above: Order Comment: Speci men Type: BLOOD SPECIMEN Ordering Facility: [facility] Address: [address] [place] [address] Performed By: #### 5 8410-2 #### [facility] CLIA [id number] [address] [place] [address] [place] Leukocyte esterase Test strip Ql (U) 25 Quintin/uL Normal Negative, 25 Quintin/uL [facility] Comment on above: Order Comment: Speci men Type: BLOOD SPECIMEN Ordering Facility: [facility] Address: [address] [place] [address] Performed By: #### 5 8410-2 #### [facility] CLIA [id number] [address] [place] [address] [place] Nitrite Ql (U) Negative Normal Negative [facility] Comment on above: Order Comment: Speci men Type: BLOOD SPECIMEN Ordering Facility: [facility] Address: [address] [place] [address] Performed By: #### 5 8410-2 #### [facility] CLIA [id number] [address] [place] [address] [place] pH (U) 5.5 [pH] Normal 5.0-8.0 [facility] Comment on above: Order Comment: Speci men Type: BLOOD SPECIMEN Ordering Facility: [facility] Address: [address] [place] [address] Performed By: #### 5 8410-2 #### [facility] CLIA [id number] [address] [place] [address] [place] Protein (U) [Mass/Vol] Negative Normal Trace , Negative [facility] Comment on above: Order Comment: Speci men Type: BLOOD SPECIMEN Ordering Facility: [facility] Address: [address] [place] [address] Performed By: #### 5 8410-2 #### [facility] CLIA [id number] [address] [place] [address] [place] Specific gravity (U) [Rel density] 1.032 High 1.005-1.030 [facility] Comment on above: Order Comment: Speci men Type: BLOOD SPECIMEN Ordering Facility: [facility] Address: [address] [place] [address] Performed By: #### 5 8410-2 #### [facility] CLIA [id number] [address] [place] [address] [place] Urobilinogen Ql (U) Negative Normal Negative [facility] Comment on above: Order Comment: Speci men Type: BLOOD SPECIMEN Ordering Facility: [facility] Address: [address] [place] [address] Performed By: #### 5 8410-2 #### [facility] CLIA [id number] [address] [place] [address] [place] Physician Referralon 023 Physician Referral [id number] .00TIFF Normal [facility] Physician Referralon 023 Physician Referral [id number] .00TIFF Normal [facility] Physician Referralon 023 Physician Referral [id number] .00TIFF [facility] Screenson 03-23-2023 Screens [id number]#1 .00TIFF [facility] Ambulatory Visit Summaryon 1 05-23-2022 Ambulatory Visit Summary CADEN WILLS :1960 Visit Date:03/22/2023 Ambulatory Visit Instructions Your Diagnosis ED (erectile dysfunction) Phimosis Hidden penis Balanoposthitis Anticoagulated Tests Performed Urnls Dip Stick Auto w/o Microscopy POC 13859 Your Care Team Attending Physician - Antonia [...] Follow Up with ROXANN BARR, Antonia Sharma, ALICIA When: Where: [address] [address]- Someone Will Contact You Regarding These Appointments [facility] External Ambulatory Referral, Urology, Dr. Alberto, 03/22/23 11:49:00 EST, Phimosis [facility] Patient Educationon 03-22-20 Patient Education Urology Erectile [...] these instructions at home: Medicines ? Take qyhz-yva-ouhrqlj and prescription medicines only as told by [...] include cig (more content not included)... 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 Anticoagulated (Z79.01: senior living (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 of anticoagulants) Plavix. S/p bypass [...] seen by Dr. Jian Alberto at the [facility] for his opinion. He can utilize jowo-rtg-balukdq Monistat cream/triple antibiotic on a as needed [...] with voice recognition artificial intelligence software, specifically [employer], [employer] and o (more content not included)... Normal [facility] Comment on above: Result Comment: Elec tronically Signed By: Antonia BUSH MD\.br\Date and Time Signed: 03/22/23 12:07 EST\.br\Electronically Co-Signed By: Maria M Campos\.br\Date and Time Co-Signed: 03/22/23 11:53 EST A1C HEMOGLOBINon 03-08-2023 HbA1c (Bld) [Mass fraction] 7.2 % Poppin Other Glucose - FINGER STICKon Glucose [Mass/Vol] 187 mg/dL [facility] Other HbA1c (Bld) [Mass fraction]o n 03-08-2023 A1C HEMOGLOBIN Immedia Other Orders Onlyon 02-08-2023 Orders Only [id number] Caden Wills 1960 Date Provider Department Center 02/08/2023 ROBYN CASTILLO [facility] Family History Problem Relation Age of Onset Coronary artery disease Father Family Status - Relation Status Age at Father Normal [facility] A1C HEMOGLOBINon 11-24-2022 HbA1c (Bld) [Mass fraction] 6.6 % Poppin Other Glucose - FINGER STICKon Glucose [Mass/Vol] 102 mg/dL [facility] Other HbA1c (Bld) [Mass fraction]o n 11-24-2022 A1C HEMOGLOBIN Immedia Other A1C HEMOGLOBINon 08-22-2022 HbA1c (Bld) [Mass fraction] 6.5 % Poppin Other Glucose - FINGER STICKon Glucose [Mass/Vol] 159 mg/dL [facility] Other HbA1c (Bld) [Mass fraction]o n 08-22-2022 A1C HEMOGLOBIN Immedia Other A1C HEMOGLOBINon 05-19-2022 HbA1c (Bld) [Mass fraction] 6.9 % Poppin Other Glucose - FINGER STICKon Glucose [Mass/Vol] 206 mg/dL [facility] Other HbA1c (Bld) [Mass fraction]o n 05-19-2022 A1C HEMOGLOBIN Immedia Other UA RANDOMon 04-05-2022 Bilirubin Ql (U) Negative Normal NEGATIVE [facility] Comment on above: Performed By: #### U A #### [facility] [address] [place] [address] Dr. Jose Rojas Clarity (U) CLOUDY Abnormal CLEAR [facility] Comment on above: Performed By: #### U A #### [facility] [address] [place] [address] Dr. Jose Rojas Color (U) LT. YELLOW Normal YELLOW [facility] Comment on above: Performed By: #### U A #### [facility] [address] [place] [address] Dr. Jose Rojas Glucose Ql (U) >[address] [facility] Comment on above: Performed By: #### U A #### [facility] [address] [place] [address] Dr. Jose Rojas Hemoglobin Ql (U) MODERATE Abnormal NEGATIVE [facility] Comment on above: Performed By: #### U A #### [facility] [address] [place] [address] Dr. Jose Rojas Ketones Ql (U) Negative Normal NEGATIVE [facility] Comment on above: Performed By: #### U A #### [facility] [address] [place] [address] Dr. Jose Rojas LEUKOCYTES MODERATE Abnormal NEGATIVE [facility] Comment on above: Performed By: #### U A #### [facility] [address] [address] [address] Jose Rojas Nitrite Ql (U) Negative Normal NEGATIVE [facility] Comment on above: Performed By: #### U A #### [facility] [address] [place] [address] Dr. Jose Rojas pH (U) 5.5 [pH] Normal 5-9 [facility] Comment on above: Performed By: #### U A #### [facility] [address] [place] [address] Dr. Jose Rojas SPEC GRAVITY <=1.005 Abnormal 1.005-<=1.0 25 [facility] Comment on above: Performed By: #### U A #### [facility] [address] [place] [address] Dr. Jose Rojas UA PROTEIN Negative Normal NEGATIVE/ TRACE [facility] Comment on above: Performed By: #### U A #### [facility] [address] [place] [address] Dr. Jose Rojas Urobilinogen Qn (U) 0.2 {Ritu'U}/dL Normal 0.2 - 1. 0 [facility] Comment on above: Performed By: #### U A #### [facility] [address] [place] [address] Dr. Jose Rojas ECHOCARDIO M/2D COMPLETEon 1 05-31-2021 ECHOCARDIO M/2D COMPLETE Patient: CADEN WILLS Exam Date: 03/30/2022 : 1960 Gender:M Ordering : DR SIMBA KASPER M.D. Admission #: [id number] Family : DR FAHAD ACEVES D.O. Order #: [id number] CLICK HERE TO VIEW EXAM ECHOCARDIOGRAM REPORT [...] on 03/31/2022 at 14:44 Normal [facility] BNPon 02-16-2022 Natriuretic peptide B (Bld) [Mass/Vol] 335.0 pg/mL Normal <=900.0 [facility] Comment on above: Performed By: #### B COST REPORT CLERK #### [facility] [address] [place] [address] Dr. Jose Rojas CBC AUTO DIFFon 02-16-2022 BASO # 0.1 103/ul Normal 0.0-0.1 [facility] Comment on above: Performed By: #### D ATCBC #### [facility] [address] [place] [address] Dr. Jose Rojas Basophils/100 WBC (Bld) 0.7 % Normal 0.2-2.0 [facility] Comment on above: Performed By: #### D ATCBC #### [facility] [address] [place] [address] Dr. Jose Rojas EO # 0.4 103/ul Normal 0.0-0.7 [facility] Comment on above: Performed By: #### D ATCBC #### [facility] [address] [place] [address] Dr. Jose Rojas Eosinophils/100 WBC (Bld) 3.9 % Normal 0.9-7.0 [facility] Comment on above: Performed By: #### D ATCBC #### [facility] [address] [address] [address] Jose Rojas Erythrocyte distribution width (RBC) [Ratio] 16.5 % Critically high 11.0-15.0 [facility] Comment on above: Performed By: #### D ATCBC #### [facility] [address] [place] [address] Dr. Jose Rojas Hematocrit (Bld) [Volume fraction] 44.9 % Normal 42.0-54.0 [facility] Comment on above: Performed By: #### D ATCBC #### [facility] [address] [place] [address] Dr. Jose Rojas Hemoglobin (Bld) [Mass/Vol] 14.3 g/dL Normal 14.0-18.0 [facility] Comment on above: Performed By: #### D ATCBC #### [facility] [address] [place] [address] Dr. Jose Rojas IG # 0.33 10e3/ul Critically high 0.00-0.03 [facility] Comment on above: Performed By: #### D ATCBC #### [facility] [address] [place] [address] Dr. Jose Rojas IG % 3.5 % Critically high 0.0-0.5 [facility] Comment on above: Performed By: #### D ATCBC #### [facility] [address] [place] [address] Dr. Jose Rojas LYMPH # 1.9 103/ul Normal 1.2-3.8 [facility] Comment on above: Performed By: #### D ATCBC #### [facility] [address] [place] [address] Dr. Jose Rojas Lymphocytes/100 WBC (Bld) 19.8 % Critically low 20.5-60.0 [facility] Comment on above: Performed By: #### D ATCBC #### [facility] [address] [place] [address] Dr. Jose Rojas MCH (RBC) [Entitic mass] 27.1 pg Normal 25.9-34.0 [facility] Comment on above: Performed By: #### D ATCBC #### [facility] [address] [address] [address] Jose Rojas MCHC (RBC) [Mass/Vol] 31.8 g/dL Normal 29.9-35.2 [facility] Comment on above: Performed By: #### D ATCBC #### [facility] [address] [address] [address] Jose Rojas MCV (RBC) [Entitic vol] 85.0 fL Normal 80.0-94.0 [facility] Comment on above: Performed By: #### D ATCBC #### [facility] [address] [address] [address] Jose Rojas MONO # 0.9 103/ul Critically high 0.3-0.8 [facility] Comment on above: Performed By: #### D ATCBC #### [facility] [address] [address] [address] Jose Rojas Monocytes/100 WBC (Bld) 9.1 % Normal 1.7-12.0 [facility] Comment on above: Performed By: #### D ATCBC #### [facility] [address] [address] [address] Jose Rojas NEUT # 6.0 103/ul Normal 1.4-6.5 [facility] Comment on above: Performed By: #### D ATCBC #### [facility] [address] [address] [address] Jose Rojas Neutrophils/100 WBC (Bld) 63.0 % Normal 43.0-75.0 [facility] Comment on above: Performed By: #### D ATCBC #### [facility] [address] [address] [address] Jose Rojas Platelet mean volume (Bld) [Entitic vol] 9.2 fL Critically low 9.5-13.5 [facility] Comment on above: Performed By: #### D ATCBC #### [facility] [address] [address] [address] Jose Rojas PLT 485 103/ul Critically high 150-450 [facility] Comment on above: Performed By: #### D ATCBC #### [facility] [address] [address] [address] Jose Rojas RBC 5.28 106/ul Normal 4.70-6.10 [facility] Comment on above: Performed By: #### D ATCBC #### [facility] [address] [address] [address] Jose Rojas WBC 9.6 103/ul Normal 4.0-11.0 [facility] Comment on above: Performed By: #### D ATCBC #### [facility] [address] [address] [address] Jose Rojas EMERSON- BMP WITH LIPIDon 2021 Anion gap [Moles/Vol] 14.3 mmol/L Normal [facility] Comment on above: Performed By: #### D ATBMP #### [facility] [address] [address] [address] Jose Rojas Calcium [Mass/Vol] 9.9 mg/dL Normal 8.5-10.1 [facility] [facility] Comment on above: Performed By: #### D ATBMP #### [facility] [address] [place] [address] Dr. Jose Rojas Chloride [Moles/Vol] 101 mmol/L Normal 98-107 [facility] Comment on above: Performed By: #### D ATBMP #### [facility] [address] [address] [address] Jose Rojas Cholesterol [Mass/Vol] 110 mg/dL Normal <=200 [facility] Comment on above: Performed By: #### D ATBMP #### [facility] [address] [address] [address] Jose Rojas Cholesterol in HDL [Mass/Vol] 28 mg/dL Critically low 40-60 [facility] Comment on above: Performed By: #### D ATBMP #### [facility] [address] [place] [address] Dr. Jose Rojas Cholesterol in LDL [Mass/Vol] 21.2 mg/dL Normal [facility] Comment on above: Performed By: #### D ATBMP #### [facility] [address] [address] [address] Jose Rojas CO2 [Moles/Vol] 28.2 mmol/L Normal 21.0-32.0 [facility] Comment on above: Performed By: #### D ATBMP #### [facility] [address] [address] [address] Jose Rojas Creatinine [Mass/Vol] 1.14 mg/dL Normal 0.70-1.30 [facility] Comment on above: Performed By: #### D ATBMP #### [facility] [address] [address] [address] Jose Rojas EGFR-AF SPANISH >60 Normal >=60 [facility] Comment on above: Performed By: #### D ATBMP #### [facility] [address] [address] [address] Jose Rojas EGFR-NON AF SPANISH >60 Normal >=60 [facility] Comment on above: Performed By: #### D ATBMP #### [facility] [address] [address] [address] Jose Rojas Glucose [Mass/Vol] 254 mg/dL Critically high 74-106 [facility] Comment on above: Performed By: #### D ATBMP #### [facility] [address] [address] [address] Jose Rojas HDL NORMAL > or = 60 mg/dl - LO W CARDIOVASCULAR RISK <40 mg/dl - HIGH CARDIOVASCULAR RISK Normal [facility] Comment on above: Performed By: #### D ATBMP #### [facility] [address] [address] [address] Jose Rojas LDL CALC NORMAL SEE BELOW Normal [facility] Comment on above: Result Comment: <100 mg/dl OPTIMAL 100 - 129 mg/dl NEAR OR ABOVE OPTIMAL 130 - 159 mg/dl BORDERLINE HIGH 160 - 189 mg/dl HIGH >190 mg/dl VERY HIGH Performed By: #### D ATBMP #### [facility] [address] [address] [address] Jose Rojas Potassium [Moles/Vol] 4.5 mmol/L Normal 3.5-5.1 [facility] Comment on above: Performed By: #### D ATBMP #### [facility] [address] [address] [address] Jose Rojas Sodium [Moles/Vol] 139 mmol/L Normal 136-145 [facility] Comment on above: Performed By: #### D ATBMP #### [facility] [address] [address] [address] Jose Rojas Triglyceride [Mass/Vol] 304 mg/dL Critically high <=150 [facility] Comment on above: Performed By: #### D ATBMP #### [facility] [address] [address] [address] Jose Rojas Urea nitrogen [Mass/Vol] 21.0 mg/dL Critically high 7.0-18.0 [facility] Comment on above: Performed By: #### D ATBMP #### [facility] [address] [place] [address] Dr. Jose Rojas Urea nitrogen/Creatinine [Mass ratio] 18.4 mg/mg Normal [facility] Comment on above: Performed By: #### D ATBMP #### [facility] [address] [place] [address] Dr. Jose Rojas VLDL CALC 60.8 mg/dL Normal [facility] Comment on above: Performed By: #### D ATBMP #### [facility] [address] [address] [address] Jose Rojas Albumin [Mass/volume] in Ser um or PlasmaOrdered By: Yamilex Foster on 02-11-2022 Albumin [Mass/Vol] 3.5 g/dL 3.2-5.5 [facility] Cholesterol [Mass/volume] in Serum or PlasmaOrdered By: Yamilex Foster on 02-11-2022 Cholesterol [Mass/Vol] 96 mg/dL 140-200 [facility] Comment on above: Chol less than 200 m g/dl low riskChol 201-239 mg/dl borderline riskChol 240 mg/dl and greater high risk Cholesterol in LDL Calc [Mas s/Vol]Ordered By: Yamilex Foster on 02-11-2022 Cholesterol in LDL [Mass/Vol] 34 mg/dL 0-100 [facility] Comment on above: LDL ATP III CLASSIFI CATIONLDL less than 100 mg/dL OptimalLDL 100-129 mg/dL Near or above optimalLDL 130-159 mg/dL Borderline highLDL 160-189 mg/dL HighLDL greater than 189 mg/dL Very high Cholesterol in VLDL Calc [Ma ss/Vol]Ordered By: Yamilex Foster on 02-11-2022 Cholesterol in VLDL [Mass/Vol] 28 mg/dL [facility] Creatinine [Mass/volume] in UrineOrdered By: Yamilex Foster on 02-11-2022 Creatinine (U) [Mass/Vol] 49.7 mg/dL [facility] Comment on above: No reference range e stablished Creatinine and Glomerular fi ltration rate.predicted panel (S/P/Bld)Ordered By: Yamilex Foster on 02-11-2022 Creatinine [Mass/Vol] 0.85 mg/dL 0.64-1.[address] [facility] Estimated glomerular filtrat ion rate (GFR) non- AmericanOrdered By: Yamilex Foster on 02-11-2022 GFR/1.73 sq M.predicted among non-blacks MDRD (S/P/Bld) [Vol rate/Area] > 60 mL/Min [facility] Globulin Calc (S) [Mass/Vol] Ordered By: Yamilex Foster on 02-11-2022 Globulin (S) [Mass/Vol] 3.2 g/dL F [facility] - Chemistry and C hemistry - challengeOrdered By: Yamilex Foster on 02-11-2022 Cobalamin (Vitamin B12) [Mass/Vol] 227 pg/mL 180-914 [facility] No Panel InformationOrdered By: Yamilex Foster on 02-11-2022 Estimated GFR () > 60 mL/Min [facility] Comment on above: GFR estimated refere nce range: According to KDOQI guidelines, <60 ml/min/1.73m2 is sufficient to diagnose a patient with chronic kidney disease. Pharmacy Creatinine Clearance (Chem N/A [facility] Protein [Mass/volume] in Ser um or PlasmaOrdered By: Yamilex Foster on 02-11-2022 Protein [Mass/Vol] 6.7 g/dL 6.1-7.9 [facility] Serum or plasma alanine mccoy otransferase measurement without P-5'-P (enzymatic activiOrdered By: Yamilex Foster on 02-11-2022 ALT No additional P-5'-P [Catalytic activity/Vol] 23 U/L [facility] Serum or plasma albumin/glob ulin mass ratioOrdered By: Yamilex Foster on 02-11-2022 Albumin/Globulin [Mass ratio] 1.1 {ratio} [facility] Serum or plasma alkaline elle sphatase measurement (enzymatic activity/volume)Ordered By: Yamilex Foster on 02-11-2022 ALP [Catalytic activity/Vol] 82 U/L 32-92 [facility] Serum or plasma anion gap de terminationOrdered By: Yamilex Foster on 02-11-2022 Anion gap [Moles/Vol] 15.4 mmol/L 6.0-15.0 [facility] Serum or plasma aspartate am inotransferase measurement (enzymatic activity/volume)Ordered By: Yamilex Foster on 02-11-2022 AST [Catalytic activity/Vol] 22 U/L [facility] Serum or plasma calcium destiny urement (mass/volume)Ordered By: Yamilex Foster on 02-11-2022 Calcium [Mass/Vol] 9.7 mg/dL 8.2-10.2 [facility] Serum or plasma chloride donato surement (moles/volume)Ordered By: Yamilex Foster on 02-11-2022 Chloride [Moles/Vol] 101 mmol/L 95-114 [facility] Serum or plasma glucose destiny urement (mass/volume)Ordered By: Yamilex Foster on 02-11-2022 Glucose [Mass/Vol] 85 mg/dL 70-100 [facility] Comment on above: ADA recommended refe rence rangeRandom Glucose Reference Range is dependent on time and content of last meal. Glucose of more than 200 mg/dL in a nonstressed, ambulatory subject supports the diagnosis of Diabetes Mellitus. Serum or plasma high density lipoprotein (HDL) cholesterol measurementOrdered By: Yamilex Foster on 02-11-2022 Cholesterol in HDL [Mass/Vol] 34 mg/dL [facility] Comment on above: HDL CHOL ATP-III CLA SSIFICATION Cardiovascular RiskHDL > or equal to 60 mg/dL LOWHDL < 40 mg/dL HIGH Serum or plasma potassium me asurement (moles/volume)Ordered By: Yamilex Foster on 02-11-2022 Potassium [Moles/Vol] 4.2 mmol/L 3.5-5.[address] [facility] Serum or plasma sodium measu rement (moles/volume)Ordered By: Yamilex Foster on 02-11-2022 Sodium [Moles/Vol] 138 mmol/L 136-146 [facility] Serum or plasma total biliru bin measurement (mass/volume)Ordered By: Yamilex Foster on 02-11-2022 Bilirubin [Mass/Vol] 0.7 mg/dL 0.3-1.2 [facility] Serum or plasma total carbon dioxide measurement (moles/volume)Ordered By: Yamilex Foster on 02-11-2022 CO2 [Moles/Vol] 25.8 mmol/L 22.0-30.0 [facility] Serum or plasma total choles terol/high density lipoprotein (HDL) cholesterol mass ratOrdered By: Yamilex Foster on 02-11-2022 Cholesterol.total/Radha sterol in HDL [Mass ratio] 2.8 {ratio} <5.0 [facility] Serum or plasma urea nitroge n measurement (mass/volume)Ordered By: Yamilex Foster on 02-11-2022 Urea nitrogen [Mass/Vol] 16 mg/dL 01-07 [facility] Triglyceride [Mass/volume] i n Serum or PlasmaOrdered By: Yamilex Foster on 02-11-2022 Triglyceride [Mass/Vol] 140 mg/dL 35-149 F [facility] Comment on above: TRIG ATP III [...] 20 mg/L (U) [Mass/Vol] 3.4 mg/dL 0.0-1.8 [facility] Urine microalbumin/creatinin e mass ratioOrdered By: Yamilex Foster on 02-11-2022 Albumin/Creatinine DL <= 20 mg/L (U) [Mass ratio] 68.0 mg/g 0.0-30.0 [facility] Comment on above: 30-300 mg/g indicate s an increased risk for diabetic nephropathy. Greater than 300 mg/g is consistent with clinical nephropathy. (Am. J. Kidney Disease 1995, 25:107) BNPon 12-31-2021 Natriuretic peptide B (Bld) [Mass/Vol] 229.0 pg/mL Normal <=900.0 [facility] Comment on above: Performed By: #### B COST REPORT CLERK #### [facility] [address] [place] [address] Dr. Jose Rojas CBC AUTO DIFFon 12-31-2021 BASO # 0.1 103/ul Normal 0.0-0.1 [facility] Comment on above: Performed By: #### D ATCBC #### [facility] [address] [place] [address] Dr. Jose Rojas Basophils/100 WBC (Bld) 0.5 % Normal 0.2-2.0 [facility] Comment on above: Performed By: #### D ATCBC #### [facility] [address] [address] [address] Jose Rojas EO # 0.1 103/ul Normal 0.0-0.7 [facility] Comment on above: Performed By: #### D ATCBC #### [facility] [address] [address] [address] Jose Rojas Eosinophils/100 WBC (Bld) 1.0 % Normal 0.9-7.0 [facility] Comment on above: Performed By: #### D ATCBC #### [facility] [address] [place] [address] Dr. Jose Rojas Erythrocyte distribution width (RBC) [Ratio] 15.1 % Critically high 11.0-15.0 [facility] Comment on above: Performed By: #### D ATCBC #### [facility] [address] [place] [address] Dr. Jose Rojas Hematocrit (Bld) [Volume fraction] 49.2 % Normal 42.0-54.0 [facility] Comment on above: Performed By: #### D ATCBC #### [facility] [address] [place] [address] Dr. Jose Rojas Hemoglobin (Bld) [Mass/Vol] 16.1 g/dL Normal 14.0-18.0 [facility] Comment on above: Performed By: #### D ATCBC #### [facility] [address] [place] [address] Dr. Jose Roajs IG # 0.07 10e3/ul Critically high 0.00-0.03 [facility] Comment on above: Performed By: #### D ATCBC #### [facility] [address] [place] [address] Dr. Jose Rojas IG % 0.7 % Critically high 0.0-0.5 [facility] Comment on above: Performed By: #### D ATCBC #### [facility] [address] [place] [address] Dr. Jose Rojas LYMPH # 2.1 103/ul Normal 1.2-3.8 [facility] Comment on above: Performed By: #### D ATCBC #### [facility] [address] [place] [address] Dr. Jose Rojas Lymphocytes/100 WBC (Bld) 22.2 % Normal 20.5-60.0 [facility] Comment on above: Performed By: #### D ATCBC #### [facility] [address] [place] [address] Dr. Jose Rojas MANUAL DIFF REQ NO Normal [facility] Comment on above: Performed By: #### D ATCBC #### [facility] [address] [address] [address] Jose Rojas MCH (RBC) [Entitic mass] 28.0 pg Normal 25.9-34.0 [facility] Comment on above: Performed By: #### D ATCBC #### [facility] [address] [place] [address] Dr. Jose Rojas MCHC (RBC) [Mass/Vol] 32.7 g/dL Normal 29.9-35.2 [facility] Comment on above: Performed By: #### D ATCBC #### [facility] [address] [place] [address] Dr. Jose Rojas MCV (RBC) [Entitic vol] 85.6 fL Normal 80.0-94.0 [facility] Comment on above: Performed By: #### D ATCBC #### [facility] [address] [place] [address] Dr. Jose Rojas MONO # 1.0 103/ul Critically high 0.3-0.8 [facility] Comment on above: Performed By: #### D ATCBC #### [facility] [address] [place] [address] Dr. Jose Rojas Monocytes/100 WBC (Bld) 10.2 % Normal 1.7-12.0 [facility] Comment on above: Performed By: #### D ATCBC #### [facility] [address] [place] [address] Dr. Jose Rojas NEUT # 6.3 103/ul Normal 1.4-6.5 [facility] Comment on above: Performed By: #### D ATCBC #### [facility] [address] [place] [address] Dr. Jose Rojas Neutrophils/100 WBC (Bld) 65.4 % Normal 43.0-75.0 [facility] Comment on above: Performed By: #### D ATCBC #### [facility] [address] [place] [address] Dr. Jose Rojas Platelet mean volume (Bld) [Entitic vol] 9.4 fL Critically low 9.5-13.5 [facility] Comment on above: Performed By: #### D ATCBC #### [facility] [address] [place] [address] Dr. Jose Rojas PLT 353 103/ul Normal 150-450 [facility] Comment on above: Performed By: #### D ATCBC #### [facility] [address] [place] [address] Dr. Jose Rojas RBC 5.75 106/ul Normal 4.70-6.10 [facility] Comment on above: Performed By: #### D ATCBC #### [facility] [address] [place] [address] Dr. Jose Rojas WBC 9.6 103/ul Normal 4.0-11.0 [facility] Comment on above: Performed By: #### D ATCBC #### [facility] [address] [place] [address] Dr. Jose Rojas Covid-19 PCR ([facility])on 12-16 SARS-CoV-2 (COVID-19) RNA PRASHANT+probe Ql (Unsp spec) Not detected Normal NOT DETECTED [facility] Comment on above: Result Comment: When [...] for this test is supported by the [place] of Health and Human Service's declaration that [...] used). Performed By: #### C VDTBH #### [facility] [address] [place] [address] Dr. Jose Rojas PROF CHEM 8 (BAS METB)on Anion gap [Moles/Vol] 14.0 mmol/L Normal [facility] Comment on above: Performed By: #### H STROPN, BMP #### [facility] [address] [address] [address] Jose Rojas Calcium [Mass/Vol] 9.5 mg/dL Normal 8.5-10.1 [facility] Comment on above: Performed By: #### H STROPN, BMP #### [facility] [address] [address] [address] Jose Rojas Chloride [Moles/Vol] 100 mmol/L Normal 98-107 [facility] Comment on above: Performed By: #### H STROPN, BMP #### [facility] [address] [place] [address] Dr. Jose Rojas CO2 [Moles/Vol] 26.9 mmol/L Normal 21.0-32.0 [facility] Comment on above: Performed By: #### H STROPN, BMP #### [facility] [address] [place] [address] Dr. Jose Rojas Creatinine [Mass/Vol] 1.06 mg/dL Normal 0.70-1.30 [facility] Comment on above: Performed By: #### H STROPN, BMP #### [facility] [address] [place] [address] Dr. Jose Rojas EGFR-AF SPANISH >60 Normal >=60 [facility] Comment on above: Performed By: #### H STROPN, BMP #### [facility] [address] [place] [address] Dr. Jose Rojas EGFR-NON AF SPANISH >60 Normal >=60 [facility] Comment on above: Performed By: #### H STROPN, BMP #### [facility] [address] [place] [address] Dr. Jose Rojas Glucose [Mass/Vol] 152 mg/dL Critically high 74-106 [facility] Comment on above: Performed By: #### H STROPN, BMP #### [facility] [address] [address] [address] Jose Rojas Potassium [Moles/Vol] 3.9 mmol/L Normal 3.5-5.1 [facility] Comment on above: Performed By: #### H STROPN, BMP #### [facility] [address] [address] [address] Jose Rojas Sodium [Moles/Vol] 137 mmol/L Normal 136-145 [facility] Comment on above: Performed By: #### H STROPN, BMP #### [facility] [address] [address] [address] Jose Rojas Urea nitrogen [Mass/Vol] 19.0 mg/dL Critically high 7.0-18.0 [facility] Comment on above: Performed By: #### H STROPN, BMP #### [facility] [address] [address] [address] Jose Rojas Urea nitrogen/Creatinine [Mass ratio] 17.9 mg/mg Normal [facility] Comment on above: Performed By: #### H STROPN, BMP #### [facility] [address] [address] [address] Jose Rojas TROPONIN, HIGH SENSITIVITYon 12-31-2021 HSTROP 6144.5 pg/mL Critically high 4.0-76.1 [facility] Comment on above: Result Comment: CUT- OFF POINTS HAVE BEEN ESTABLISHED BASED ON THE FOURTH UNIVERSAL DEFINITIONS OF MYOCARDIAL INFARCTION. THE UPPER REFERENCE LIMIT (URL) OF TROPONIN, DEFINED THE 99TH PERCENTILE OF cTnI DISTRIBUTION IN A REFERENCE POPULATION, HAS BEEN CONFIRMED THE DECISION THRESHOLD FOR OK DIAGNOSIS. Performed By: #### H STROPN #### [facility] [address] [place] [address] Dr. Jose Rojas HSTROP 142.5 pg/mL Critically high 4.0-76.1 [facility] Comment on above: Result Comment: CUT- OFF POINTS HAVE BEEN ESTABLISHED BASED ON THE FOURTH UNIVERSAL DEFINITIONS OF MYOCARDIAL INFARCTION. THE UPPER REFERENCE LIMIT (URL) OF TROPONIN, DEFINED THE 99TH PERCENTILE OF cTnI DISTRIBUTION IN A REFERENCE POPULATION, HAS BEEN CONFIRMED THE DECISION THRESHOLD FOR OK DIAGNOSIS. Performed By: #### H STROPN, BMP #### [facility] [address] [address] [address] Jose Rojas XR CHEST 1 Von [...] CONDE Date: 2021-12-31 13:54 Normal [facility] XR LSPINE 2_3 VIEWSon 2021 XR [...] [place] Date: 2021-10-31 08:51 Normal [facility] A1C HEMOGLOBINon 10-21-2021 HbA1c (Bld) [Mass fraction] 7.5 % [employer] Other Glucose - FINGER STICKon Glucose [Mass/Vol] 107 mg/dL [employer] Other HbA1c (Bld) [Mass fraction]o n 10-21-2021 A1C HEMOGLOBIN [employer] Other Urinalysis - AUTOMATEDon Appearance (U) cloudy [employer] Other Bilirubin Ql (U) Negative [employer] Other Color (U) yellow [employer] Other Glucose Ql (U) 500 [employer] Other Hemoglobin Ql (U) moderate YEVVO Other Ketones Ql (U) Negative [employer] Other Leukocyte esterase Test strip Ql (U) moderate [employer] Other Nitrite Ql (U) Positive [employer] Other pH (U) 6.0 [pH] [employer] Other Protein Ql (U) trace [employer] Other Specific gravity (U) [Rel density] 1.025 [employer] Other Urobilinogen (U) [Mass/Vol] 0.2 mg/dL [employer] Other Urinalysis - AUTOMATED No rt UNI5 Other Urine Cultureon 08-11-2021 Bacteria identified Cx Nom (U) [employer] Other A1C HEMOGLOBINon 06-29-2021 HbA1c (Bld) [Mass fraction] 7.4 % [employer] Other Glucose - FINGER STICKon Glucose [Mass/Vol] 168 mg/dL [employer] Other HbA1c (Bld) [Mass fraction]o n 06-29-2021 A1C HEMOGLOBIN [employer] Other A1C HEMOGLOBINon 03-24-2021 HbA1c (Bld) [Mass fraction] 6.6 % [employer] Other Glucose - FINGER STICKon Glucose [Mass/Vol] 171 mg/dL [employer] Other HbA1c (Bld) [Mass fraction]o n 03-24-2021 A1C HEMOGLOBIN [employer] Other Vital Signs Date Time Vital Sign Value Performing Clinician Facility 05-15-2024 16:05-0500 Body height 177.8 cm [facility] 05-15-2024 16:05-0500 Body mass index (BMI) [Ratio] 38.7 kg/m2 [facility] 05-15-2024 16:05-0500 Body weight 122.24 kg [facility] 05-15-2024 16:05-0500 Diastolic blood pressure 72 mm[Hg] [facility] 05-15-2024 16:05-0500 Heart rate 70 /min [facility] 05-15-2024 16:05-0500 Respiratory rate 18 /min [facility] 05-15-2024 16:05-0500 SaO2% (BldA) [Mass fraction] 95 % [facility] 05-15-2024 16:05-0500 Systolic blood pressure 117 mm[Hg] [facility] 04-23-2024 15:52-0500 Body height 177.8 cm [facility] 04-23-2024 15:52-0500 Body mass index (BMI) [Ratio] 39.8 kg/m2 [facility] 04-23-2024 15:52-0500 Body weight 125.81 kg [facility] 04-23-2024 15:52-0500 Diastolic blood pressure 72 mm[Hg] [facility] 04-23-2024 15:52-0500 Heart rate 76 /min [facility] 04-23-2024 15:52-0500 Respiratory rate 12 /min [facility] 04-23-2024 15:52-0500 Systolic blood pressure 123 mm[Hg] [facility] 02-07-2024 16:30-0400 Body height 177.8 cm [facility] 02-07-2024 16:30-0400 Body mass index (BMI) [Ratio] 38.5 kg/m2 [facility] 02-07-2024 16:30-0400 Body weight 121.78 kg [facility] 02-07-2024 16:30-0400 Diastolic blood pressure 71 mm[Hg] [facility] 02-07-2024 16:30-0400 Heart rate 74 /min [facility] 02-07-2024 16:30-0400 Respiratory rate 18 /min [facility] 02-07-2024 16:30-0400 SaO2% (BldA) [Mass fraction] 97 % [facility] 02-07-2024 16:30-0400 Systolic blood pressure 116 mm[Hg] [facility] 11-01-2023 16:16-0400 Body height 177.8 cm [facility] 11-01-2023 16:16-0400 Body mass index (BMI) [Ratio] 39.2 kg/m2 [facility] 11-01-2023 16:16-0400 Body weight 123.83 kg [facility] 11-01-2023 16:16-0400 Diastolic blood pressure 57 mm[Hg] [facility] 11-01-2023 16:16-0400 Respiratory rate 16 /min [facility] 11-01-2023 16:16-0400 SaO2% (BldA) [Mass fraction] 93 % [facility] 11-01-2023 16:16-0400 Systolic blood pressure 103 mm[Hg] [facility] 10-18-2023 15:43-0400 Body height 177.8 cm [facility] 10-18-2023 15:43-0400 Body mass index (BMI) [Ratio] 39.2 kg/m2 [facility] 10-18-2023 15:43-0400 Body weight 123.94 kg [facility] 10-18-2023 15:43-0400 Diastolic blood pressure 74 mm[Hg] [facility] 10-18-2023 15:43-0400 Heart rate 77 /min [facility] 10-18-2023 15:43-0400 Respiratory rate 12 /min [facility] 10-18-2023 15:43-0400 Systolic blood pressure 119 mm[Hg] [facility] 09-13-2023 13:15-0400 Body mass index (BMI) [Ratio] 39.86 kg/m2 Jian Alberto MD Work Phone: [facility] 09-13-2023 13:15-0400 Body weight 126 kg Jian Alberto MD Work Phone: [facility] 09-13-2023 13:15-0400 Diastolic blood pressure 71 mm[Hg] Jian Alberto MD Work Phone: [facility] 09-13-2023 13:15-0400 Heart rate 72 /min Jian Alberto MD Work Phone: [facility] 09-13-2023 13:15-0400 Systolic blood pressure 128 mm[Hg] Jian Alberto MD Work Phone: [facility] 08-04-2023 13:51-0400 Body height 177.8 cm Giovanni Mulligan MD Work Phone: [facility] 08-04-2023 13:51-0400 Body weight 124.29 kg Giovanni Mulligan MD Work Phone: [facility] 07-27-2023 12:44-0400 Respiratory rate 18 /min Pac 6 Work Phone: [facility] 07-11-2023 15:26-0400 Body height 177.8 cm [facility] 07-11-2023 15:26-0400 Body mass index (BMI) [Ratio] 39.4 kg/m2 [facility] 07-11-2023 15:26-0400 Body weight 124.73 kg [facility] 07-11-2023 15:26-0400 Diastolic blood pressure 73 mm[Hg] [facility] 07-11-2023 15:26-0400 Heart rate 73 /min [facility] 07-11-2023 15:26-0400 Systolic blood pressure 117 mm[Hg] [facility] 06-21-2023 16:14-0500 Body height 177.8 cm [facility] 06-21-2023 16:14-0500 Body mass index (BMI) [Ratio] 39.4 kg/m2 [facility] 06-21-2023 16:14-0500 Body weight 124.73 kg [facility] 06-21-2023 16:14-0500 Diastolic blood pressure 65 mm[Hg] [facility] 06-21-2023 16:14-0500 Heart rate 70 /min [facility] 06-21-2023 16:14-0500 Respiratory rate 18 /min [facility] 06-21-2023 16:14-0500 SaO2% (BldA) [Mass fraction] 95 % [facility] 06-21-2023 16:14-0500 Systolic blood pressure 109 mm[Hg] [facility] 06-19-2023 13:05-0500 Body weight 124.29 kg Ligia Colmenares MD Work Phone: [facility] 06-19-2023 13:05-0500 Diastolic blood pressure 68 mm[Hg] Ligia Colmenares MD Work Phone: [facility] 06-19-2023 13:05-0500 Heart rate 68 /min Ligia Colmenares MD Work Phone: [facility] 06-19-2023 13:05-0500 Systolic blood pressure 112 mm[Hg] Ligia Colmenares MD Work Phone: [facility] 04-19-2023 15:30-0500 Body height 177.8 cm Fahad Ball Other [facility] 04-19-2023 15:30-0500 Body mass index (BMI) [Ratio] 39.91 kg/m2 Fahad Ball Other [id number] [facility] [employer] Other 04-19-2023 15:30-0500 Body weight 126.19 kg Fahad Ball Other [facility] [employer] Other 04-19-2023 15:30-0500 Body weight 126.18 kg DO Fahad Ball Work Phone: [facility] 04-19-2023 15:30-0500 Diastolic blood pressure 77 mm[Hg] Fahad Ball Other [facility] 04-19-2023 15:30-0500 Respiratory rate 16 /min Fahad Ball Other [facility] [employer] Other 04-19-2023 15:30-0500 Systolic blood pressure 125 mm[Hg] Fahad Ball Other [facility] 03-22-2023 11:46-0500 Blood Pressure Location [employer] [facility] 03-22-2023 11:46-0500 Diastolic blood pressure 71 mm[Hg] Antonia COOK [facility] 03-22-2023 11:46-0500 Heart rate 69 /min Antonia BUSH [facility] 03-22-2023 11:46-0500 Systolic blood pressure 111 mm[Hg] Antonia BUSH [facility] 03-08-2023 16:15-0500 Body height 177.8 cm Tondra Mapus Other [facility] 03-08-2023 16:15-0500 Body mass index (BMI) [Ratio] 39.65 kg/m2 Tondra Mapus Other [facility] [employer] Other 03-08-2023 16:15-0500 Body weight 125.38 kg Tondra Mapus Other [facility] [employer] Other 03-08-2023 16:15-0500 Body weight 125.37 kg DO Fahad Ball Work Phone: [facility] 03-08-2023 16:15-0500 Diastolic blood pressure 72 mm[Hg] Tondra Mapus Other [facility] 03-08-2023 16:15-0500 Respiratory rate 18 /min Tondra Mapus Other [employer] Other 03-08-2023 16:15-0500 SaO2% (BldA) [Mass fraction] 96 % Tondra Mapus Other [place] Other 03-08-2023 16:15-0500 Systolic blood pressure 127 mm[Hg] Tondra Mapus Other [facility] 01-20-2023 14:45-0400 Body height 177.8 cm Fahad Ball Other [employer] Other 01-20-2023 14:45-0400 Body mass index (BMI) [Ratio] 39.17 kg/m2 Fahad Ball Other [employer] Other 01-20-2023 14:45-0400 Body weight 123.83 kg Fahad Ball Other [employer] Other 01-20-2023 14:45-0400 Diastolic blood pressure 74 mm[Hg] Fahad Ball Other [employer] Other 01-20-2023 14:45-0400 Respiratory rate 18 /min Fahad Ball Other [employer] Other 01-20-2023 14:45-0400 Systolic blood pressure 118 mm[Hg] Fahad Ball Other [employer] Other 11-24-2022 15:30-0400 Body height 177.8 cm Tondra Mapus Other [employer] Other 11-24-2022 15:30-0400 Body mass index (BMI) [Ratio] 39.22 kg/m2 Tondra Mapus Other [employer] Other 11-24-2022 15:30-0400 Body weight 124.01 kg Tondra Mapus Other [employer] Other 11-24-2022 15:30-0400 Diastolic blood pressure 65 mm[Hg] Tondra Mapus Other [employer] Other 11-24-2022 15:30-0400 Respiratory rate 18 /min Tondra Mapus Other [employer] Other 11-24-2022 15:30-0400 SaO2% (BldA) [Mass fraction] 95 % Tondra Mapus Other [employer] Other 11-24-2022 15:30-0400 Systolic blood pressure 109 mm[Hg] Tondra Mapus Other [employer] Other 10-17-2022 15:30-0400 Body height 177.8 cm Fahad Ball Other [employer] Other 10-17-2022 15:30-0400 Body mass index (BMI) [Ratio] 39.6 kg/m2 Fahad Ball Other [employer] Other 10-17-2022 15:30-0400 Body weight 125.19 kg Fahad Ball Other [employer] Other 10-17-2022 15:30-0400 Diastolic blood pressure 66 mm[Hg] Fahad Ball Other [employer] Other 07-03-2023 15:30-0400 Respiratory rate 16 /min Fahad Ball Other [employer] Other 10-17-2022 15:30-0400 Systolic blood pressure 108 mm[Hg] Fahad Ball Other [employer] Other 08-22-2022 16:30-0400 Body height 177.8 cm Tondra Mapus Other [employer] Other 08-22-2022 16:30-0400 Body mass index (BMI) [Ratio] 39.93 kg/m2 Tondra Mapus Other [employer] Other 08-22-2022 16:30-0400 Body weight 126.24 kg Tondra Mapus Other [employer] Other 08-22-2022 16:30-0400 Diastolic blood pressure 70 mm[Hg] Tondra Mapus Other [employer] Other 08-22-2022 16:30-0400 Respiratory rate 18 /min Tondra Mapus Other [employer] Other 08-22-2022 16:30-0400 SaO2% (BldA) [Mass fraction] 94 % Tondra Mapus Other [employer] Other 08-22-2022 16:30-0400 Systolic blood pressure 111 mm[Hg] Tondra Mapus Other [employer] Other 07-18-2022 16:30-0400 Body height 177.8 cm Fahad Ball Other [employer] Other 07-18-2022 16:30-0400 Body mass index (BMI) [Ratio] 40.2 kg/m2 Fahad Ball Other [employer] Other 07-18-2022 16:30-0400 Body weight 127.1 kg Fahad Ball Other [employer] Other 07-18-2022 16:30-0400 Diastolic blood pressure 71 mm[Hg] Fahad Ball Other [employer] Other 07-18-2022 16:30-0400 Respiratory rate 16 /min Fahad Ball Other [employer] Other 07-18-2022 16:30-0400 Systolic blood pressure 117 mm[Hg] Fahad Ball Other [employer] Other 05-19-2022 16:15-0500 Body height 177.8 cm Tondra Mapus Other [employer] Other 05-19-2022 16:15-0500 Body mass index (BMI) [Ratio] 40.79 kg/m2 Tondra Mapus Other [employer] Other 05-19-2022 16:15-0500 Body weight 128.96 kg Tondra Mapus Other [employer] Other 05-19-2022 16:15-0500 Diastolic blood pressure 72 mm[Hg] Tondra Mapus Other [employer] Other 05-19-2022 16:15-0500 Respiratory rate 18 /min Tondra Mapus Other [employer] Other 05-19-2022 16:15-0500 SaO2% (BldA) [Mass fraction] 93 % Tondra Mapus Other [employer] Other 05-19-2022 16:15-0500 Systolic blood pressure 131 mm[Hg] Tondra Mapus Other [employer] Other 05-04-2022 16:30-0500 Body height 177.8 cm Fahad Ball Other [employer] Other 05-04-2022 16:30-0500 Body mass index (BMI) [Ratio] 41.23 kg/m2 Fahad Ball Other [employer] Other 05-04-2022 16:30-0500 Body weight 130.36 kg Fahad Ball Other [employer] Other 05-04-2022 16:30-0500 Diastolic blood pressure 82 mm[Hg] Fahad Ball Other [employer] Other 05-04-2022 16:30-0500 Respiratory rate 20 /min Fahad Ball Other [employer] Other 05-04-2022 16:30-0500 Systolic blood pressure 118 mm[Hg] Fahad Ball Other [employer] Other 10-21-2021 14:45-0400 Body height 177.8 cm Tondra Mapus Other [employer] Other 10-21-2021 14:45-0400 Body mass index (BMI) [Ratio] 40.31 kg/m2 Tondra Mapus Other [employer] Other 10-21-2021 14:45-0400 Body weight 127.46 kg Tondra Mapus Other [employer] Other 10-21-2021 14:45-0400 Diastolic blood pressure 70 mm[Hg] Tondra Mapus Other [employer] Other 10-21-2021 14:45-0400 Respiratory rate 20 /min Tondra Mapus Other [employer] Other 10-21-2021 14:45-0400 SaO2% (BldA) [Mass fraction] 96 % Tondra Mapus Other [employer] Other 10-21-2021 14:45-0400 Systolic blood pressure 110 mm[Hg] Tondra Mapus Other [employer] Other 08-11-2021 15:15-0400 Body height 177.8 cm Celestina Greene Other [employer] Other 08-11-2021 15:15-0400 Body mass index (BMI) [Ratio] 38.74 kg/m2 Celestina Talbotmond Other [employer] Other 08-11-2021 15:15-0400 Body temperature 98.2 [degF] Celestina Talbotmond Other [employer] Other 08-11-2021 15:15-0400 Body weight 122.47 kg Celestina Talbotmond Other [employer] Other 08-11-2021 15:15-0400 Diastolic blood pressure 72 mm[Hg] Celestina Ramona Other [employer] Other 08-11-2021 15:15-0400 Respiratory rate 18 /min Celestina Talbotmond Other [employer] Other 08-11-2021 15:15-0400 SaO2% (BldA) [Mass fraction] 99 % Celestina Greene Other [employer] Other 08-11-2021 15:15-0400 Systolic blood pressure 123 mm[Hg] Celestina Greene Other [employer] Other 06-29-2021 15:30-0400 Body height 177.8 cm Tondra Mapus Other [employer] Other 06-29-2021 15:30-0400 Body mass index (BMI) [Ratio] 40.89 kg/m2 Tondra Mapus Other [employer] Other 06-29-2021 15:30-0400 Body weight 129.28 kg Tondra Mapus Other [employer] Other 06-29-2021 15:30-0400 Diastolic blood pressure 75 mm[Hg] Tondra Mapus Other [employer] Other 06-29-2021 15:30-0400 Respiratory rate 20 /min Tondra Mapus Other [employer] Other 06-29-2021 15:30-0400 SaO2% (BldA) [Mass fraction] 95 % Tondra Mapus Other [employer] Other 06-29-2021 15:30-0400 Systolic blood pressure 126 mm[Hg] Tondra Mapus Other [employer] Other 03-24-2021 16:15-0500 Body height 177.8 cm Tondra Mapus Other [employer] Other 03-24-2021 16:15-0500 Body mass index (BMI) [Ratio] 40.89 kg/m2 Tondra Mapus Other [employer] Other 03-24-2021 16:15-0500 Body weight 129.28 kg Tondra Mapus Other [employer] Other 03-24-2021 16:15-0500 Diastolic blood pressure 67 mm[Hg] Tondra Mapus Other [employer] Other 03-24-2021 16:15-0500 Respiratory rate 20 /min Tondra Mapus Other [employer] Other 03-24-2021 16:15-0500 SaO2% (BldA) [Mass fraction] 97 % Tondra Mapus Other [employer] Other 03-24-2021 16:15-0500 Systolic blood pressure 115 mm[Hg] Tondra Mapus Other [employer] Other 01-06-2021 15:00-0400 Body height 177.8 cm Tondra Mapus Other [employer] Other 01-06-2021 15:00-0400 Body mass index (BMI) [Ratio] 39.81 kg/m2 Tondra Mapus Other [employer] Other 01-06-2021 15:00-0400 Body weight 125.87 kg Tondra Mapus Other [employer] Other Encounters Encounter Date Encounter Type Care Provider Facility Start: 05-15-2024 End: 05-15-2024 ambulatory [facility] Work Phone: Start: 05-15-2024 End: 05-15-2024 Patient encounter procedure [facility] Work Phone: Start: 04-23-2024 End: 04-23-2024 ambulatory [facility] Work Phone: Start: 04-23-2024 End: 04-23-2024 Patient encounter procedure [facility] Work Phone: Start: 02-07-2024 End: 02-07-2024 ambulatory [facility] Work Phone: Start: 02-07-2024 End: 02-07-2024 Patient encounter procedure [facility] Work Phone: Start: 01-23-2024 ambulatory [facility] Start: 01-20-2024 Non-patient / Non-visit [facility] Work Phone: Start: 01-15-2024 End: 01-15-2024 Telephone encounter Jada Wilkins APRN.[employer] Work Phone: Urology Start: 11-01-2023 End: 11-01-2023 ambulatory [facility] Work Phone: Start: 11-01-2023 End: 11-01-2023 Patient encounter procedure [facility] Work Phone: Start: 10-18-2023 End: 10-18-2023 ambulatory [facility] Work Phone: Start: 10-18-2023 End: 10-18-2023 Encounter for general adult medical examination without abnormal findings [facility] Start: 10-18-2023 End: 10-18-2023 Patient encounter procedure [facility] Work Phone: Start: 10-04-2023 Telephone encounter Jada Sharma Delano rivero APRN.LINEM[employer] APPRENTICE Work Phone: Urology Start: 09-13-2023 End: 09-13-2023 [...] Start: 08-04-2023 End: 08-04-2023 ambulatory GIOVANNI MULLIGAN Facility:[facility] Start: 07-28-2023 End: 07-29-2023 ambulatory JIAN ALBERTO Facility:[facility] Start: 07-27-2023 Non-patient / Non-visit [facility] Work Phone: Start: 07-27-2023 End: 07-27-2023 Admission to [facility] Start: 07-27-2023 End: 07-27-2023 Preprocedural examination done Pacc Main 6 Work Phone: [facility] Work Phone: Start: 07-27-2023 End: 07-27-2023 ambulatory Pacc Main 6 Work Phone: Pre Anesthesia Comment on above: Pre-operative examin ation (Primary Dx); Primary hypertension; Hyperlipidemia, unspecified hyperlipidemia type; Coronary artery disease involving coronary bypass graft of [place] heart without angina pectoris; Chronic systolic CHF (congestive heart failure) ([facility]); Paroxysmal atrial fibrillation ([facility]); Gastroesophageal reflux disease, unspecified whether esophagitis present; Type 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 with other specified complication, with long-term current use of insulin ([facility]); Class 2 obesity due to excess calories without serious comorbidity with body mass index (BMI) of 39.0 to 39.9 in adult Start: 07-27-2023 Encounter for other preprocedural examination FAHAD ACEVES [facility] Start: 07-18-2023 Telephone encounter Noy garcia RN Work Phone: Urology Comment on above: [employer] Start: 07-11-2023 End: 07-11-2023 ambulatory [facility] Work Phone: Start: 07-11-2023 End: 07-11-2023 Patient encounter procedure [facility] Work Phone: Start: 06-21-2023 End: 06-21-2023 Patient encounter procedure [facility] Work Phone: Start: 06-19-2023 End: 06-19-2023 Patient encounter procedure Ligia Colmenares MD Work Phone: Cardiology Comment on above: Coronary artery dise ase involving [place] coronary artery of [place] heart, unspecified whether angina present (Primary Dx); History of non-ST elevation myocardial infarction (NSTEMI); Hx of CABG; Primary hypertension; Other hyperlipidemia Start: 06-19-2023 End: 06-19-2023 ambulatory LIGIA COLMENARES M.D. 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 [employer] Start: 05-03-2023 End: 05-03-2023 ambulatory Jian Alberto MD Work Phone: Urology Start: 05-02-2023 End: 05-02-2023 ambulatory Yarelis Santacruz Other [employer] Other Start: 05-02-2023 Office outpatient vi sit 10 minutes Yarelis Calvey [facility] Start: 05-02-2023 End: 05-02-2023 Patient encounter procedure DO Fahad Aceves Work Phone: [facility]- Start: 04-19-2023 End: 04-19-2023 ambulatory Fahad Aceves Other [employer] Other Start: 04-19-2023 Office outpatient vi sit 25 minutes Fahad Aceves [facility] Start: 04-19-2023 End: 04-19-2023 Patient encounter procedure DO Fahad Aceves Work Phone: [facility] Work Phone: Start: 03-30-2023 End: 03-30-2023 ambulatory Yarelis Santacruz Other [employer] Other Start: 03-30-2023 Telephone encounter Yarelis Begum [facility] [employer] Start: 03-28-2023 End: 03-28-2023 ambulatory Yarelis Santacruz Other [employer] Other Start: 03-28-2023 Office outpatient vi sit 15 minutes Yarelis Santacruz [facility] Start: 03-22-2023 End: 03-22-2023 ambulatory TONDRA K PALOMOUS Facility:[facility] Start: 03-22-2023 End: 03-22-2023 Patient encounter procedure Antonia BUSH [facility] Start: 03-08-2023 End: 03-08-2023 Discharged Recurring DO [facility]ves [facility] Work Phone: Start: 03-08-2023 (DM) Diabetes Tondra Mapus [facility] Start: 03-08-2023 End: 03-09-2023 ambulatory DO Fahad Aceves Work Phone: [employer] Other Start: 03-08-2023 End: 03-08-2023 Patient encounter procedure DO Fahad Aceves Work Phone: [facility] Work Phone: Start: 02-22-2023 End: 02-22-2023 ambulatory Yarelis Santacruz Other [employer] Other Start: 02-22-2023 Office outpatient vi sit 15 minutes Yarelis Santacruz [facility] Start: 01-20-2023 End: 01-20-2023 ambulatory Fahad Aceves Other [employer] Other Start: 01-20-2023 Office outpatient vi sit 15 minutes Fahad Aceves [facility] Start: 12-09-2022 End: 12-09-2022 ambulatory Tondra Mapus Other [employer] Other Start: 12-09-2022 Telephone encounter Tondra Mapus [facility] Start: 11-25-2022 ambulatory TONDRA MAPUS Facility:[facility] Start: 11-24-2022 (DM) Diabetes Tondra Mapus [facility] Start: 11-24-2022 End: 11-24-2022 ambulatory Tondra Mapus Other [employer] Other Start: 11-24-2022 Telephone encounter Tondra Mapus [facility] Start: 10-17-2022 End: 10-17-2022 ambulatory Fahad Aceves Other [employer] Other Start: 10-17-2022 Encounter for genera l adult medical examination without abnormal findings Fahad Aceves [facility] Start: 10-17-2022 Periodic preventive med est patient 40-64yrs Fahad Aceves [facility] Start: 09-05-[address] FAHAD ACEVES Facili ty:[facility] Start: 08-24-2022 End: 08-25-2022 ambulatory DAMIAN MATHUR Facility:[facility] Start: 08-22-2022 (DM) Diabetes Tondra Mapus [facility] Start: 08-22-2022 End: 08-22-2022 ambulatory Tondra Mapus Other [employer] Other Start: 07-18-2022 End: 07-18-2022 ambulatory Fahad Aceves Other [employer] Other Start: 07-18-2022 Office outpatient vi sit 15 minutes Fahad Aceves [facility] Start: 05-19-2022 (DM) Diabetes Tondra Mapus [facility] Start: 05-19-2022 End: 05-19-2022 ambulatory Tondra Mapus Other [employer] Other Start: 05-04-2022 End: 05-04-2022 ambulatory Fahad Aceves Other [employer] Other Start: 05-04-2022 Office outpatient vi sit 25 minutes Fahad Aceves [facility] Start: 04-19-2022 End: 05-04-[address] FAHAD ACEVES Facility:[facility] Start: 04-05-2022 End: 04-06-[address] FHAAD ACEVES Facility:[facility] Start: 03-30-2022 End: 03-31-[address] FAHAD ACEVES Facility:[facility] Start: 02-24-2022 End: 02-25-[address] FAHAD ACEVES Facility:[facility] Start: 02-17-2022 End: 04-19-[address] FAHAD ACEVES Facility:[facility] Start: 02-16-2022 End: 02-17-[address] FAHAD ACEVES Facility:[facility] Start: 02-14-2022 End: 02-14-2022 ambulatory Tondra Mapus Other [employer] Other Start: 02-14-2022 Telephone encounter Tondra Mapus [facility] Start: 02-11-2022 End: 02-11-2022 ambulatory DO Fahad Aceves Work Phone: [facility] Work Phone: Start: 02-11-2022 End: 02-11-2022 Patient encounter procedure DO Fahad Yola Work Phone: [facility] [place] Start: 02-10-2022 End: 02-11-[address] SIMBA KASPER Facility:[facility] Start: 02-01-2022 Registered Recurring DO Michael in [place] Work Phone: [facility] Start: 02-01-2022 End: 02-01-2022 ambulatory Tondra Mapus Other [employer] Other Start: 02-01-2022 Telephone encounter Tondra Mapus [facility] Start: 01-07-[address] FAHAD ACEVES Facili ty:[facility] Start: 12-31-2021 End: 12-31-2021 ambulatory DARNELL OVALLE Facility:[facility] Start: 12-16-2021 ambulatory DAMIAN MATHUR Faci lity:[facility] Start: 11-15-2021 End: 01-01-[address] AFHAD ACEVES Facility:[facility] Start: 10-29-2021 End: 10-30-[address] FAHAD ACEVES Facility:[facility] Start: 10-21-2021 (DM) Diabetes Tondra Mapus [facility] Start: 10-21-2021 End: 10-21-2021 ambulatory Tondra Mapus Other [employer] Other Start: 09-09-2021 End: 09-10-2021 ambulatory DAMIAN MATHUR Facility:[facility] Start: 08-11-2021 End: 08-11-2021 ambulatory Celestina Greene Other [employer] Other Start: 08-11-2021 Office outpatient vi sit 25 minutes Celestinajcarlos Greene [facility] Start: 06-29-2021 (DM) Diabetes Tondra Mapus [facility] Start: 06-29-2021 End: 06-29-2021 ambulatory Tondra Mapus Other [employer] Other Start: 05-12-2021 End: 05-12-2021 ambulatory Tondra Mapus Other [employer] Other Start: 05-12-2021 [facility] Start: 05-04-2021 End: 05-04-2021 ambulatory Tondra Mapus Other [employer] Other Start: 05-04-2021 Telephone encounter Tondra Bull [facility] Start: 03-24-2021 [facility]DM[facility] Start: 03-24-2021 End: 03-24-2021 ambulatory Tondra Mapus Other [employer] Other Start: 01-06-2021 Nursing evaluation o f patient and report [facility] Procedures Date Procedure Procedure Detail [...] BP Controlled (<130/80) BP Controlle d (<130/80) [facility] Start: 07-26-2024 BP Controlled (<130/80) BP Controlle d (<130/80) [facility] Start: 02-14-2024 End: 02-14-2024 Patient encounter procedure 02/14/2024 10:15 AM EDT Office Visit Urology [address] [address] Jian Alberto MD [address] [place] [address] 5 month f/u ED per cc chart Urology Comment on above: 5 month f/u ED per c c chart Start: 01-26-2024 Hemoglobin A1c measurement HbA1C [facility] Start: 12-17-2023 Covid-19 Vaccine ( season) Covid-19 Vaccine ( season) [facility] Start: 12-17-2023 Influenza vaccination C [facility] Start: 04-17-2023 Behavioral Health Screening Behavioral Health Screening [facility] Start: 04-17-2023 Depression Assessment Depression Ass essment [facility] Start: 01-01-2023 Hepatitis B surface antibody level LDL Cholesterol [facility] Start: 12-16-2022 Covid-19 Vaccine ( season) Covid-19 Vaccine ( season) [facility] Start: 12-16-2022 Influenza vaccination Influenza Vacc ine (#1) [facility] Start: 07-04-2022 Hemoglobin A1c measurement HbA1C [facility] Start: 2022 RSV Vaccine (1 - 1-d ose 60+ series) RSV Vaccine (1 - 1-dose 60+ series) [facility] Start: 2022 RSV Vaccine (1 - Ris k 60-74 years 1-dose series) RSV Vaccine (1 - Risk 60-74 years 1-dose series) [facility] Start: 2017 Prostate specific antigen measurement Prostate Cancer Screening Discussion [facility] Start: 01-11-2012 Shingrix Vaccine (1 of 2) Shingrix Vaccine (1 of 2) [facility] Start: 2007 Screening for malign ant neoplasm of colon [facility] Start: 1981 Urine microalbumin profile DTaP,Tdap,Td Vaccine (1 - Tdap) [facility] Start: 01-11-1980 Annual PCP Team Legal Process Specialist [place] Disease Visit Annual PCP Team Chronic Disease Visit [facility] Start: 01-11-1980 Anxiety Screening Anxiety Screening [facility] Start: 01-11-1980 Depression Screening [facility] Scre [facility]ing [facility] System Start: 01-11-1980 Hepatitis C screening Hepatitis C Sc reening [facility] Start: 01-11-1980 HIV screening HIV Screening [facility]te [facility] Start: 01-11-1972 Diabetic foot examination Diabetic Foot Exam [facility] Start: 01-11-1972 Glaucoma screening Dilated Retinal E xam [facility] Start: 01-11-1972 Hepatitis B screening Urine Albumin:Creatinine Ratio [facility] Start: 01-11-1968 Pneumococcal vaccination Pneum ococcal Vaccine (1 of 2 - PCV) [facility] Start: 1960 Covid-19 Vaccine (#1) Covid-19 Vacci ne (#1) [facility] Comprehensive metabo lic 2000 panel - Serum or Plasma [facility] Patient Education [facility] Work Phone: URINALYSIS, REFLEX MICROSCOPIC URINALYSIS, REFLEX MICROSCOPIC Lab Routine Screening for genitourinary condition Ordered: 09/13/2023 [facility] Work Phone: Comment on above: Ordered: 09/13/2023 [facility] Immunizations Immunization Date Immunization Notes Care Provider Sam brenner 02-24-2022 COVID-19 Pfizer (bivalent) Fahad Aceves Other [facility] 03-23-2021 COVID-19 Vaccine Pfi zer - Documentation Purposes Only Fahad Aceves Other [facility] 08-03-2020 COVID-19 Vaccine Pfi zer - Documentation Purposes Only Fahad Aceves Other [facility] 07-13-2020 COVID-19 Vaccine Pfi zer - Documentation Purposes Only Fahad Aceves Other [facility] Payers Date Payer Category Payer Unknown [id number] 2015 Private Health Insurance [employer] [id number] 2015-Present [phone] [address] [address] [place] [address] [facility] [id number] 1960 Unknown [id number] [id number] .2.593 1962 Unknown [id number] 2.16.840.1.006040.3.579 .2.593 1962 Unknown [id number] 2.16.840.1.909092.3.579 .2.593 1962 Unknown [id number] 2.16.840.1.549100.3.579 .2.593 1962 Unknown [id number] 2.16.840.1.413692.3.579 .2.593 1962 Unknown [id number] 2.16.840.1.845634.3.579 .2.593 1962 Unknown [id number] 2.16.840.1.827126.3.579 .2.593 1962 Unknown [id number] 2.16.840.1.449458.3.579 .2.593 1962 Unknown [id number] 2.16.840.1.313878.3.579 .2.593 1962 Unknown [id number] 2.16.840.1.652993.3.579 .2.593 1962 Unknown [id number] 2.16.840.1.096673.3.579 .2.593 1962 Unknown [id number] 2.16.840.1.323542.3.579 .2.593 1962 Unknown [id number] 2.16.840.1.344609.3.579 .2.593 1962 Unknown [id number] 2.16.840.1.948086.3.579 .2.593 1962 Unknown [id number] 2.16.840.1.399298.3.579 .2.593 1959 Self-pay [id number] 1959 Unknown [id number] 2.16.840.1.959585.19 Unknown [id number] 2.16.840.1.839069.3.579 .2.593 Unknown [id number] 2.16.840.1.311171.3.579 .2.531 Social History Date Type Detail Facility Unknown if ever smoked [facility] Other Start: 05-03-2023 End: 08-04-2023 Sex Assigned At [facility] Start: 1960 Sex Assigned At Male F [facility] Start: 03-22-2023 End: 06-19-2023 Tobacco smoking status Never smoked tobacco (finding) [facility] Start: 05-03-2023 Tobacco use and exposure Smokeless tobacco non-user [facility] Start: 05-03-2023 End: 08-04-2023 History of Social function [facility] Start: 1960 Sex Assigned At Not on file C [facility] Start: 07-27-2023 End: 09-13-2023 Alcohol intake Current drinker of alcohol (finding) [facility] Start: 04-23-2024 End: 05-15-2024 Sex Male (finding) [facility] Medical Equipment Procedure Code Equipment Code Equipment Original Text Equi pment Identifier Dates Functional Status Date Assessment Result Facility 03-22-2023 Functional Status N/A [facility] Clinical Notes 01-06-2021 to 04-23-2024 Note Date & Type Note Facility 04-23-2024 Evaluation note Diagnosis Onset Date Resolution Chronic HFrEF (heart failure with reduced ejection fraction) acute April 23, 2024 3:40pm Hypertension acute April 23, 2024 3:40pm Ischemic cardiomyopathy acute J anuary 2024 3:40pm Left leg pain acute April 3:40pm Mixed hyperlipidemia acute Jose evelio 2024 3:40pm Obesity acute April 23, 2 025 3:40pm Type 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 with diabetic polyneuropathy acute April 23 3:40pm Type 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 with hyperglycemia acute April 23, 2024 3:40pm BMI 38.0-38.9,adult acute Janua ry 2024 4:00pm Dietary counseling and surveillance acute May 15 4:00pm Mixed hyperlipidemia acute Jose evelio 2024 4:00pm Vitamin B 12 deficiency acute J anuary 2024 4:00pm HTN (hypertension) deleted Januar y 2024 4:00pm Type 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 deleted May 15, 2024 4:00pm [facility] Work Phone: 1([phone]) 536-511510-23-2024 Evaluation note* Diagnosis Onset Date Resolution Status Admit Date BMI 38.0-38.9,adult acute Octob er 2023 4:26pm Dietary counseling and surveillance acute February 06 4:26pm Mixed hyperlipidemia acute Octo maren 2023 4:26pm Vitamin B 12 deficiency acute O ctober 2023 4:26pm HTN (hypertension) deleted Octobe r 2023 4:26pm Type 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 deleted February 07, 2024 4:26pm Chronic HFrEF (heart failure with reduced ejection fraction) acute April 23, 2024 3:40pm Hypertension acute April 23, 2024 3:40pm Ischemic cardiomyopathy acute J anuary 2024 3:40pm Mixed hyperlipidemia acute Jose evelio2024 3:40pm Type 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 wit h diabetic polyneuropathy acute April 23, 2024 3:40pm Type 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 wit h hyperglycemia acute April 23 3:40pm [facility] Work Phone: 1(561) 833-233510-08-2024 NoteI was available for discussion and questions prior to patient visit. Plan was discussed prior to implementation and I was present for delivery of the plan. I agree with the assessment and plan and have modified the documentation as necessary. Caroline Silva, TinD Cardiology Outpatient Clinical Pharmacist 01/23/24[facility]10-08-2024 NotePharmacist Visit - Lipid Phone Consult Provider: Dr. Kasper Department: [facility] Cardiology SUBJECTIVE/OBJECTIVE Caden Wills is a 64 y.o. male contacted for lipid management. Patient's PMH includes CHF, CAD s/p CABG/stents, HLD, HFimpEF (55-60%, 03/30/22). Current Lipid Lowering Therapy Atorvastatin 80mg daily Ezetimibe 10mg daily Other Relevant Cardiology Medications ASA 81mg daily Entresto 24-26mg BID Farxiga 10mg daily Metoprolol succinate 100mg daily Spironolactone 25mg daily CV Risk Factors include: Last Clinic Vitals: BP Readings from Last 1 Encounters: 06/19/23 114/74 Estimated body mass index is 39.31 kg/m??? as calculated from the following: Height as of 06/19/23: 1.778 m (5' 10 ). Weight as of 06/19/23: 124 kg (274 lb). Pertinent Labs A1C: 7.1 (07/27/23) BMP: K 4.3, CREATININE 0.71, EGFR 104 (07/29/23) LFTs: ALT 33, AST 26, ALKPHOS 100 (07/27/23) FLP: TC 107, HDL 32, LDLCALC 49, VLDL 26.6, TRIG 133 (01/20/24) Lp(a): <8.4 (01/20/24) ASSESSMENT/PLAN Dyslipidemia: Most recent LDL-C 49 (01/20/24), below goal of <55 mg/dL. Lp(a) not elevated. Currently on atorvastatin 80 mg and ezetimibe 10 mg. Will continue current regimen for now and monitor. - Called patient to review labs and discuss plans. Left VM requesting a callback. - Will reschedule telephone visit for 01/23. Opal Peña, TinD, PGY1 Applied Psychology Teacher 01/23/24 [facility] NotePatient contacted clinic and updated labs were reviewed with patient. Stated he has been having leg pain (for 2-3 years); discussed high-risk of PAD due to severe CAD and DM. Will relay information to Dr. Kasper and discuss possibility of DVT/PAD work-up with imaging. Will continue to follow-up with patient regarding above issues. Caroline Silva, TinD Cardiology Outpatient Clinical Pharmacist 01/23/24[facility]09-30-2024 Telephone encounter Note* Telephone Encounter - Jada Wilkins APRN.CNP - 01/15/2024 2:53 PM EDT See previous telephone encounter from 10/04/2023. Keflex has been on auto refill, and [facility] has already been [facility] to [facility] this request. Jada Wilkins APRN.CNP [facility] Work Phone: [phone] 382-361509-30-2024 Telephone encounter Note* Telephone Encounter - Jada Wilkins APRN.CNP - 01/15/2024 2:53 PM EDT ----- Message from [employer]box sent at 01/15/2024 9:13 AM EDT ----- Regarding: [facility] medication [facility] [place] [facility] a refill request for Cephalexin - it is not on his current med list. Please advise and thank you, Kourtney [facility]09-30-2024 Miscellaneous Notes* Telephone Encounter - Jada Wilkins APRN.CNP - 01/15/2024 2:53 PM EDT See previous telephone encounter from 10/04/2023. Keflex has been on auto refill, and [facility] has already been asked to [facility] this request. Jada Wilkins APRN.CNP * Telephone Encounter - Jada Wilkins APRN.CNP - 01/15/2024 2:53 PM EDT ----- Message from Kourtney [employer] sent at 01/15/2024 9:13 AM EDT ----- Regarding: [facility] medication [facility] [place] [facility] refill request for Cephalexin - it is not on his current med list. Please advise and thank you, Kourtney documented in this encounterTrinity Health System09-30-2024 NotePharmD Cardiology Consult - Lipids Provider: Dr. Kasper Department: [facility] Cardiology Caden Wills is a 64 [...] for PCSK9. Rx will be sent to [place] [facility] to determine coverage and provide [...] Caroline Silva PharmD Cardiology Outpatient Clinical Pharmacist 01/15/2024[facility]-30-2024 NotePatient returned call; will complete labs by end of the week. Requested call back on Sunday 01/21 for follow-up. Orders placed. Caroline Silva PharmD Cardiology Outpatient Clinical Pharmacist 01/16/2024[facility]06-19-2024 Telephone encounter Note * Telephone Encounter - Jada Wilkins APRN.CNP - 10/04/2023 4:24 PM EDT Keflex was prescribed for 1 month after buried penis surgery on 07/28/2023. Called Caden A Johann. He reports trying to cancel refill request for [facility] with [facility] but was unsuccessful. Denies concerns about infection. Reminded him that he should follow up with Dr. Alberto in the fall. Left voicemail at [facility] in [place], advising that Caden A Faunsdale does NOT need refill on Keflexand asking them to take it off auto refill. Jada Wilkins APRN.CNP [facility] Work Phone: 1(988) 276-545106-19-2024 Miscellaneous Notes* Telephone Encounter - Jada Wilkins APRN.CNP - 10/04/2023 4:24 PM EDT Keflex was prescribed for 1 month after buried penis surgery on 07/28/2023. Called Caden A Faunsdale. He reports trying to cancel refill request for [facility] but was unsuccessful. Denies concerns about infection. Reminded him that he should follow up with Dr. Alberto in the fall. Left voicemail at [facility] in [place], advising that Caden A Faunsdale does NOT need refill on Keflexand asking them to take it off auto refill. Jada Wilkins APRN.CNP * Telephone Encounter - Jada Wilkins APRN.CNP - 10/04/2023 4:18 PM EDT ----- Message from Kourtney Hodge Patient Service Spec sent at 10/04/2023 7:36 AM EDT ----- Regarding: Medication [facility]ill [facility] request for Cephalexin 500 mg- it is not listed in his med list . Please advise and thank you, Kourtney documented in this encounterTrinity Health System06-19-2024 Telephone encounter Note * Telephone Encounter - Jada Wilkins APRN.CNP - 10/04/2023 4:18 PM EDT ----- Message from Kourtney Hodge Patient Service Spec sent at 10/04/2023 7:36 AM EDT ----- Regarding: Medication refill [facility] refill request for Cephalexin 500 mg- it is not listed in his med list . Please advise and thank you, Kourtney [facility]05-29-2024 NoteHNO ID: [id number] Author: JIAN ALBERTO MD Service: ? Author [...] tablet Take 20 mEq by mouth. omega 2-zgz-bag-fish oil (FISH OIL) 100-160-1,000 mg cap Take 1,000 mg by mouth. No current facility-administered medications on file prior to visit. DATA/OR LABS TO BE REVIEWED: (Simple=1 data point; Complex= 2 or more) No results found for: PSA Creatinine (mg/dL) Date Value 07/29/2023 0.71 07/28/2023 0.75 07/27/2023 0.73 No results found for: TESTOST Noy Mary, opthalmic tech Staff Note: I performed a face to [...] clinic in the fall for recheck. Jian Alberto, [facility]05-29-2024 History of Present illness Narrative* Jian Alberto MD - 09/13/2023 1:27 PM EDT HPI: Caden Wills is a 63 year [...] he is healing well. Initially exposed glans ofpenis to urinate, but ultimately left glans buried due to discomfort. Some moisture associated skindamage to scrotum. Transverse incision clean, dry and [...] MOUTH ONCE A DAY ON EMPTY STOMACH FOLLOWEDIN 30 MINUTES WITH BREAKFAST 90 spironolactone (ALDACTONE) [...] tablet Take 20 mEq by mouth. omega 1-llx-yzd-fish oil (FISH OIL) 100-160-1,000 mg cap Take 1,000 mg by mouth. No current facility-administered medications on file prior to visit. DATA/OR LABS TO BE REVIEWED: (Simple=1 data point; Complex= 2 or more) No results found for: PSA Creatinine (mg/dL) Date Value 07/29/2023 0.71 07/28/2023 0.75 07/27/2023 0.73 No results found for: TESTOST Noy Mary, opthalmic tech Staff Note: I performed a face to [...] to clean inside the skin fold, otherwise doingwell. Return to clinic in the fall for recheck. Jian Alberto MD documented in this encounterTrinity Health System05-29-2024 NotePatient Outreach (UROLMN) CADEN WILLS ([id number]) 1960 M Date Time Provider Department 09/13/23 JIAN ALBERTO During your visit today, we recorded the following information about you: Allergies As of Date: 09/13/2023 (No Known Allergies) Date Reviewed: 09/13/2023 Reviewed by: Rafal Mulligan MA - Fully Assessed Visit Diagnosis:Screening for genitourinary condition [Z13.89] Order(s):URINALYSIS, REFLEX MICROSCOPIC [[id number]] Order #: [id number] Prescriptions as of 09/18/2023 - amiodarone (PACERONE) [...] Take 20 mEq by mouth. - omega 2-tgp-kzw-fish oil (FISH OIL) 100-160-1,000 mg cap Take [...] excess calories without *07/27/2023 Encounter Status:Closed by EPIC, PRODUSER on 09/[facility]/23[facility] 08-04-[facility]23 History of Present illness Narrative* Giovanni Mulligan MD - 08/04/2023 2:30 PM EDT HPI Caden Wills is a 63 year [...] & Prosthetic Surgery Fellow documented in this encounterTrinity Health System04-19-2024 NoteHNO ID: [id number] Author: GIOVANNI MULLIGAN MD Service: ? Author [...] MD Male Genitourinary Reconstruction AND Prosthetic Surgery FellowAcmc Healthcare System04-13-2024 NoteHNO ID: [id number] Author: GRAZYNA PURDY MD Service: Urology Author Type: Resident Type: Progress Notes Filed: 07/29/2023 08:41 Note Text: [facility] UROLOGY PROGRESS NOTE Name: Caden Wills Bed: Main - Periop OR/Main - * Date: 07/29/2023 After Hours [facility] [place] [facility] Service Pager: [phone] ASSESSMENT AND PLAN Caden Wills is a [...] SSI inpatient Grazyna Purdy MD Urology Resident [facility] [place] Pager [phone] For weekend or after hours issues [place] [phone] 6:53 AM 07/29/2023 Subjective SUBJECTIVE - See [...] 182* 82 Imaging All relevant recent imaging reviewedAcmc Healthcare System04-12-2024 NoteHNO ID: [id number] Author: JUICE GEE MD Service: Urology Author Type: Resident Type: Progress Notes Filed: 07/28/2023 16:17 Note Text: [facility] UROLOGY PROGRESS NOTE Name: Caden Wills Bed: Main - Periop OR/Main - * Date: 07/28/2023 After Hours [facility] Urology Service Pager: [phone] ASSESSMENT AND PLAN Caden Wills is a [...] SSI inpatient Juice Gee MD Urology Resident [facility] Pager [phone] For weekend or after hours issues please page the on-call urology pager [phone] 07/28/2023 4:16 PM Subjective SUBJECTIVE - See [...] 182* 82 Imaging All relevant recent imaging reviewedAcmc Healthcare System04-12-2024 NoteHNO ID: [id number] Author: JEFFY MARTINEZ SRNA Service: ? 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 Alberto has scheduled you for your procedure at this surgery center: [facility] [place] [facility] Scheduling Office: [phone] --[address] [place] [address]. Please read below carefully for your personalized [...] not take the day of surgery omega 7-anm-kig-fish oil (FISH OIL) 100-160-1,000 mg cap Do [...] or other anticoagulants without consulting with your legal records manager or prescribing physician. - Stop Vitamin E, [...] Procedures: - YOU MUST HAVE A RESPONSIBLE SHOP STEWARD TAKE YOU HOME. A FOUNDATION COORDINATOR OR ELECTRICAL UNIT REBUILDER CANNOT BE MADE A RESPONSIBLE SHOP STEWARD. - We recommend that a responsible person stays with you overnight to take care of you. - You cannot stay in a hotel alone after outpatient surgery. You will not be permitted to have yoursurgery, if you do not have someone to take care of you. Arrival Time for Surgery: - To obtain your arrival time for surgery, call your physician's office the day before your surgery. - If your surgery is scheduled for Monday, call the Monday before. Your surgeon s recreation engineer will tell you what time to call the office. - If you have not reached the departmental recreation engineer by 5 P.M., call [phone] after 5 P.M. the day before your surgery. Please be aware that emergency situations arise, which may delay or change your surgical time. If this happens, we will notify you as soon as possible and regret any inconvenience. If you already have an Advance Directive, please fax a copy to [phone] or email to for it to be added to your chart. If you do not have an Advance Directive, you can find the appropriate form and more information at [email or web address]. We recommend that youcomplete the Advance Directive form found on the website and bring it with you the day of your surgery. It can be witnessed and scanned into your chart that day. Kevin Goldsmith APRN.LINEMAN APPRENTICE documented in this encounterTrinity Health System04-11-2024 History and physical note * Kevin Goldsmith APRN.CHUY - 07/27/2023 1:00 PM EDT Images from the original note were not [...] artery disease involving coronary bypass graft of [place] heart without angina pectoris CAD, hx of [place] s/p CABG x 5 in Dec 2021. Patient had a pre-op evaluation with Cardiology, 06/19/[address] Colmenares. Per note, Perioperative Cardiac Risk Assessment: Mr. Caden Wills'arabella [...] cardiac events (< 1% chance of , [place], CHF, malignant ventricular arrhythmias or high grade [...] note 06/19/23 notes the following, Echo 03/30/22 ([facility]) - Global LV systolic function is difficult [...] have a large neck STOP-Bang Score: 5 [id number] Score: Age: <65 Sex: male CHF history: Yes Hypertension history: Yes Stroke/TIA/thromboembolism history: No Vascular disease history: Yes Diabetes history: Yes [id number] Score: 4 ARISCAT Score: Age: 51-80 Preoperative [...] Landers present: no Lip Bite Test: I Microretrognathia/Micronagthia/Recessed Chin: Yes DENTAL Dentures, upper: partial. Additional [...] at this time: cardiology (Patient had a pre-opevaluation with Dr. Colmenares on 06/19/23, see under [...] will be communicated back to the requesting physicianby way of shared medical record or letter. Subjective The patient has the following: ACTIVE PROBLEM LIST Acquired Buried Penis Scarring of Penis Erectile Dysfunction Associated With Type 2 Diabetes Mellitus (Hcc) (Hcc) Primary Hypertension Hyperlipidemia Coronary Artery Disease Involving Coronary Bypass Graft of [place] Heart Without Angina Pectoris Chronic Systolic Chf (Congestive Heart Failure) (Hcc) Paroxysmal Atrial Fibrillation (Hcc) Gerd (Gastroesophageal Reflux Disease) Type 2 Diabetes Mellitus, With Long-Term Current Use of Insulin ([facility]) Class 2 Obesity Due to Excess Calories Without Serious Comorbidity With Body Mass Index (Bmi) of 39.0 to 39.9 in Adult COVID-19 Immunization Status Overdue - Covid-19 Vaccine () Overdue since 12/16/2022 03/23/2021 Outside Immunization: COVID-19 [...] for: chronic anti-coagulation/platelet meds. Patient is on anti- coagulation/platelet medication(s): Aspirin. Oncology: No history of CA [...] MOUTH ONCE A DAY ON EMPTY STOMACH FOLLOWEDIN 30 MINUTES WITH BREAKFAST 90 Taking Yes [...] 20 mEq by mouth. Taking Yes omega 4-fcm-tbq-fish oil (FISH OIL) 100-160-1,000 mg cap Take [...] 414 QTC Calculation (Bazett) 440 Calculated P [place] 53 Calculated R [place] 20 Calculated T [place] 86 Impression NORMAL SINUS RHYTHM LOW VOLTAGE QRS NONSPECIFIC ST ABNORMALITY ABNORMAL ECG Confirmed by LIGIA COLMENARES M.D. ([id number]), continuity editor Lainey Agee ([id number]) on 06/19/2023 2:11:39 PM 03/30/2022 Echo- [facility] Global LV systolic function is [...] voices comprehension and compliance. SIGNATURE: Kevin Goldsmith APRN.CHUY PATIENT NAME: Caden Wills DATE: July 27, 2023 TIME: 2:46 PM PAGER/CONTACT #: documented in this encounterTrinity Health System04-02-2024 Miscellaneous Notes* Telephone Encounter - Noy Mary RN - 07/18/2023 3:38 PM EDT Called and spoke to Caden Wills regarding pre op issues. Instructed patient to take last dose of Farxiga on 07/23. Informed patient that his case is currently scheduled as first round with a 6:00 arrival time at -9. States that he will be going home after pre ops on 07/26 and coming back the following day. No other questions or concerns expressed. Noy Mary RN documented in this encounterTrinity Health System03-04-2024 History of Present illness Narrative* Ligia Colmenares MD - 06/19/2023 1:00 PM EST Images from the original note were not included. [facility] [place] Rob Borden Department of Cardiovascular Medicine SECTION [...] Low risk. The patient has the following riskfactors: age (male over 45, female over 55), hyperlipidemia, obesity, diabetes, hypertension and atthe present time he Denies Active cardiac conditions. [...] furniture (8.00 METs). 12/06/2022 Robyn Miller Cardiology- [facility] HPI Pleasant 62-year-old man with prior history of coronary disease status post percutaneous intervention to chronically occluded LAD in 2007. Additional history includes diabetes, hypertension and hyperlipidemia. He was admitted in December 2021 to [facility] with chest pain and diagnosed with [...] 1 tablet by mouth every afternoon. omega 6-heb-uuu-fish oil (FISH OIL) 100-160-1,000 mg cap Take [...] JVD, carotids well felt, no bruits. CARDIAC: [place] palpable in the 5th intercostal space mid [...] (including images and tracings) were personally reviewed bymyself: Revised Cardiac Risk Index: - No High-risk [...] reviewed from the reports only: 03/30/2022 Echo- [facility] Global LV systolic function is [...] upper normal limits in size. 01/07/2022 CABGx5- [facility] CABG X 5; CPB; LEFT LEG VEIN HARVEST; INTRAOP FREDI Coronary artery bypass grafting x5, AGARWAL to LAD, saphenous vein graft to diagonal and obtuse marginal branches, and saphenous vein graft to PDA and right posterolateral ventricular branch. 01/05/2022 Cardiac Cath- [facility] Mid RCA lesion is 99% [...] infiltrated over the right radial artery. A 6-Cambodian Terumo Glidesheath slender was placed in right radial artery. Radial anti-vasospasm cocktail of verapamil 2.5 mg and nitroglycerin 200 mcg was administered through the sheath. All catheter exchanges were made over the [employer] guidewire. JL3.5 was used to engage the [...] cardiac events (< 1% chance of , [place], CHF, malignant ventricular arrhythmias or high grade [...] PDA and right posterolateral ventricular branc [2021]: Currentlyon statins, beta-blockers and aspirin and is asymptomatic, continue unchanged. 3. Hypertension: Blood pressure is controlled, continue current medical regimen unchanged. 4. Hyperlipidemia: On Lipitor 80 mg at bedtime, there is no cholesterol on file as the patient follows up with an outside legal records manager. 5. Diabetes mellitus: Managed by PCP. 6. Obesity: Discussion deferred. 7. Follow-up as needed. The above information was discussed at length with the patient including review of all laboratory, ultrasound and radiographic studies (if these were done and available at the time), along with benefits/risks of various management options available to the patient. He/She was given ample time to askquestions and at the conclusion of the visit the patient clearly understood the plan of management, had no further questions and was satisfied with the time and care provided. The patient was instructed to call if any questions arise or if the medical condition changes prior to the follow up visit. Ligia Colmenares MD, FORMERLY [facility], [facility] CC: To use this Smartlink, specify the provider ID whose address you want to display, e.g., .PROVADDR[1 (where 1 is the provider ID). documented in this encounterTrinity Health System03-04-2024 NoteHNO ID: [id number] Author: LIGIA COLMENARES MD Service: ? Author Type: Physician Type: Progress Notes Filed: 06/19/2023 13:23 Note Text: [facility] Heart and Vascular [place] Rob Borden Department of Cardiovascular Medicine SECTION [...] furniture (8.00 METs). 12/06/2022 Robyn Miller Cardiology- [facility] HPI Pleasant 62-year-old man with prior history of coronary disease status post percutaneous intervention to chronically occluded LAD in 2007. Additional history includes diabetes, hypertension and hyperlipidemia. He was admitted in December 2021 to [facility] with chest pain and diagnosed with [...] 1 tablet by mouth every afternoon. omega 3-xkw-gyb-fish oil (FISH OIL) 100-160-1,000 mg cap Take [...] JVD, carotids well felt, no bruits. CARDIAC: [place] palpable in the 5th intercostal space mid clavicular line, (more content not included)...[facility]-04-2024 NoteUT Cardiology - [facility] Subjective Caden Wills is a 63 y.o. year old male patient being seen for 6 mo follow up CAD, chronic systolic heart failure, hypertension, and hyperlipidemia. Had lipid panel in Dec 2022, and repeat lipid drawn this morning. Doing well from cardiac standpoint, as he denies chest pain, SOB, and palpitations. Patient Active Problem List Diagnosis Chest pain NSTEMI (non-ST elevated myocardial infarction) ([facility]) Obesity Diabetes mellitus, type II, insulin dependent ([facility]) Respiratory insufficiency Hypomagnesemia Hypertension Hyperlipidemia Postoperative atrial fibrillation ([facility]) Coronary artery disease involving bear river coronary artery of [place] river heart without angina pectoris Chronic systolic heart failure ([facility]) History of coronary artery bypass graft Acquired buried penis Erectile dysfunction associated with type 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 ([facility]) Scarring of penis Family History Problem Relation [...] He was admitted in December 2021 to [facility] with chest pain and diagnosed with [...] place, and time. Psychiatric: (more content not included)...[facility]02-28-2024 Miscellaneous Notes* Telephone Encounter - Noy Mary RN - 06/14/2023 10:03 AM EST error documented in this encounterTrinity Health System02-28-2024 Miscellaneous Notes* Telephone Encounter - Noy Mary RN - 06/14/2023 9:44 AM EST Called Caden Wills and LVM to confirm surgery date of 07/[address] Alberto. Discussed pre op testing on 07/26 in [place], or he could make two trips. Asked him to confirm Asked patient to confirm receipt, and voice any questions or concerns. Number provided. Noy Mary RN documented in this encounterTrinity Health System01-17-2024 NoteHNO ID: [id number] Author: JIAN ALBERTO MD Service: ? Author Type: Physician Type: Progress Notes Filed: 05/03/2023 14:28 Note Text: [facility] NEW PATIENT HISTORY AND PHYSICAL EXAM PATIENT INFO: Caden Wills 63 year old REFERRING M.D.: Antonia Bush MD [address] [place] [id number] This consult was requested by Dr. Bush for an opinion regarding buried penis and erectile dysfunction, and my final recommendations will be communicated to the requesting health care provider by way of the shared medical record for internal providers or letter via the [employer] for external providers. 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 , interested in future sexual life. MEDICATIONS: [...] excision of the sc (more content not included)...[facility]-17-2024 NotePatient Outreach (UROLMN) CADEN WILLS ([id number]) 1960 M Date Time Provider Department 05/03/23 JIAN ALBERTO During your visit today, we recorded the following information about you: Allergies As of Date: 05/03/2023 (No Known Allergies) Date Reviewed: 05/03/2023 Reviewed by: Claudia Burt OCCA - Fully Assessed Visit Diagnosis:Screening for genitourinary condition [Z13.89] Order(s):URINALYSIS, REFLEX MICROSCOPIC [DJQ0477] Order #: [id number]. #:[id number] Prescriptions as of 05/08/2023 - metFORMIN ER [...] tablet by mouth every afternoon. - omega 6-hxi-zuk-fish oil (FISH OIL) 100-160-1,000 mg cap Take 1,000 mg by mouth. - bumetanide (BUMEX ORAL) Take by mouth. Problem List As Of Date 05/03/2023 Noted Resolved Acquired buried penis [N48.83] 05/03/2023 Scarring of penis [N48.6] 05/03/2023 Erectile dysfunction associated with type 2 beverley*05/03/2023 Encounter Status:Closed by EPIC, PRODUSER on 05/08/23[facility] Evaluation note* Encounter Date Diagnosis Assessment Notes Treatment Notes Treatment Clinical Notes Apr, Subungual hematoma of finger of right hand, initial encounter (ICD-10 - S60.10XA) Patient instructed on washing with soap and applying ointment to help soften remaining callused area. Progress activity as tolerated [facility] Other 01-03-2024 Evaluation note* Encounter Date Diagnosis [...] are maintaining regular scheduled appts with their legal records manager. Post operative AF Amiodarone and Eliquis d/c [...] Referred to [facility] for evaluation and treatment [facility] Other 12-12-2023 Evaluation note* Encounter Date Diagnosis Assessment Notes Treatment Notes Treatment Clinical Notes Mar, Subungual hematoma of finger of right hand, initial encounter (ICD-10 - S60.10XA) Patient instructed on washing with soap and applying ointment to help soften scab area. [facility] Other 12-06-2023 Hospital Discharge instructions Patient Education [...] Follow these instructions at home: Medicines Take pzua-rfx-kubgzom and prescription medicines only as told by [...] provider. Document Revised: 06/30/2021 Document Reviewed: 06/30/2021 [email or web address] Patient Education 2022 [employer]. Follow Up Care 11/25/2022 08:22:24 With:ROXANN BARR, Antonia Sharma, URL Address: [address] [place], [place] [id number]- When: Unknown [facility] 11-22-2023 Evaluation note* Encounter Date Diagnosis Assessment [...] (hypertension) (ICD-10 - I10) On arb. Feb, senior living current use of insulin (ICD-10 - Z79.4) [...] BMI 39.0-39.9,adult (ICD-10 - Z68.39) see above [facility] Other 11-08-2023 Evaluation note* Encounter Date Diagnosis Assessment Notes Treatment Notes Treatment Clinical Notes Feb, Subungual hematoma of finger of right hand, initial encounter (ICD-10 - S60.10XA) Patient instructed to continue with daily soaking. Keep covered while at work [facility] Other 10-25-2023 NoteIn light of elevated lipid levels- LDL > 50-70 I added zetia to regime. Will repeat lipid level again in 3 months. Staff to notify pt Robyn Miller COST REPORT CLERK Division of Cardiology, [facility]- [phone] Pager- [phone] Email- [email or web address] Evaluation note* Encounter Date Diagnosis Assessment [...] - E11.65) Increases risk of serious infection. [facility] Other 08-25-2023 Evaluation note* Encounter Date Diagnosis Assessment Notes Treatment Notes Treatment Clinical Notes Nov, Type 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 with hyperglycemia (ICD-10 - E11.65) [facility] Other 08-14-2023 Reason for visit NarrativeTKM - REFERRAL UROLOGY - NEED TO INFORM PATIENT 11/28/22Nort UNI5 Other 08-10-2023 Evaluation note* Encounter Date Diagnosis [...] hyperglycemia, or diabetes medication issues. 6. Prescriptions: [facility] KRISTIN: Sample shivani 2 cgm given today. 7. Prescriptions will not be filled unless you are compliant with follow up appointments or have a follow up appointment scheduled as ordered by your provider. Refills should be requested at the time of your visit. Nov, Dietary counseling and surveillance (ICD-10 - Z71.3) see above Nov, HTN (hypertension) (ICD-10 - I10) On arb. 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 No bleeding complications Oct, Type 2 diabetes [...] (ICD-10 - Z12.5) Yearly LADAN and PSA [facility] Other 05-08-2023 Evaluation note* Encounter Date Diagnosis [...] (hypertension) (ICD-10 - I10) On arb. 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 They are instructed to continue exercise and AHA diet plan. Instructed to continue exercise 2-3x weekly. After completiong CR plans on continuing at [facility] Jul, Primary hypertension (ICD-10 - I10) [...] (coronary artery bypass graft) (ICD-10 - Z95.1) [facility] Other 02-02-2023 Evaluation note* Encounter Date Diagnosis Assessment Notes Treatment Notes Treatment Clinical Notes May, Type 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 with hyperglycemia (ICD-10 - E11.65) 1. Controlled, a Type 2 diabetes with A1c of 6.9% 2. Blood glucose levels according to Ducks[employer] 2 cgm download 05/06/22-05/19/22: Avg glucose 189. [...] carbs while at work. He will see legal records manager Monday to see if he will be [...] (hypertension) (ICD-10 - I10) On arb. 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 Reviewed importance of glucose/bp control to prevent further nephropathy [facility] Other 01-18-2023 Evaluation note* Encounter Date Diagnosis [...] may warrant EGD to r/o H. Pylori [facility] Other 11-11-2022 NotePROCEDURE: XR FOOT RT MIN [...] by: HEAVENLY LOUIS Date: 2022-02-25 06:39[facility]07-07-2022 Evaluation note* Encounter Date Diagnosis Assessment Notes Treatment Notes Treatment Clinical Notes Oct, Type 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 with hyperglycemia (ICD-10 - E11.65) 1. Uncontrolled, a Type 2 diabetes with A1c of 7.5% 2. Blood glucose levels above target. According to Ducks[employer] 2 cgm download 10/08/21-10/21/21: Avg glucose 197. [...] (hypertension) (ICD-10 - I10) On jonathan. Oct, senior living current use of insulin (ICD-10 - Z79.4) Oct, Mixed hyperlipidemia (ICD-10 - E78.2) 11/2020 LDL 97.6 Triglycerides 347, on fenofibrate, Recommend moderate intensity statin f/u with pcp for further recommendation. Oct, BMI 40.0-44.9, adult (ICD-10 - Z68.41) 4 pound weight loss from last visit, continue with weight loss efforts Oct, Vitamin B 12 deficiency (ICD-10 - E53.8) [facility] Other 04-27-2022 Evaluation note* Encounter Date Diagnosis [...] days. Jul, Hematuria, unspecified (ICD-10 - R31.9) [facility] Other 03-15-2022 Evaluation note* Encounter Date Diagnosis Assessment Notes Treatment Notes Treatment Clinical Notes Jun, Type 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 with hyperglycemia (ICD-10 - E11.65) 1. Uncontrolled, a Type 2 diabetes with A1c of 7.4% 2. Blood glucose levels above target. According to [employer] cgm download 06/16/21-06/29/21: Avg glucose 172. >250- [...] (hypertension) (ICD-10 - I10) On jonathan. 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 Jun, BMI 40.0-44.9, adult (ICD-10 - Z68.41) see above [facility] Other 01-18-2022 Evaluation note* Encounter Date Diagnosis Assessment Notes Treatment Notes Treatment Clinical Notes Apr, Type 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 with hyperglycemia (ICD-10 - E11.65) [facility] Other 12-08-2021 Evaluation note* Encounter Date Diagnosis Assessment Notes Treatment Notes Treatment Clinical Notes Mar, Type 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 with hyperglycemia (ICD-10 - E11.65) 1. Controlled, a Type 2 diabetes with A1c of 6.6% 2. Blood glucose levels improved from last visit. According to Ducksboard 2 cgm download 03/11/21-03/24/21: Avg glucose 162. >250- 1%, >180-29%, 70-180-70%, <70-0%, <54-0%. CV 22.5%. Reviewed download with pt. readings above target from missed meal dose or late meal dose. Discussed with pt trial lyumjev which he could take 5 minutes before meal up to 20 minutes after meal. He is agreeable, reviewed this would take place of [employer] He verbalizes understanding. Pt with history of [...] (hypertension) (ICD-10 - I10) On jonathan. Mar, senior living current use of insulin (ICD-10 - Z79.4) Mar, Mixed hyperlipidemia (ICD-10 - E78.2) 11/2020 LDL 97.6 Triglycerides 347, on fenofibrate, Recommend moderate intensity statin. Mar, BMI 40.0-44.9, adult (ICD-10 - Z68.41) see above [facility] Other 09-22-2021 Evaluation note* Encounter Date Diagnosis Assessment Notes Treatment Notes Treatment Clinical Notes Dec, Type 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 with hyperglycemia (ICD-10 - E11.65) Erwin came in today for evaluation of his Shivani report after returning to work and continuing to use the device. Erwin is happy with the system and wants us to send a prescription to [facility] in [place]. Erwin's BG has averaged 163 for the [...] at MidNight. No further changes. Valery JOSEPH, PROFILE GRINDER-C, BC-ADM [facility] [employer] Other Chief complaint+Reason for visit Narrative* Reason for Visit BMI 38.0-38.9,adult Dietary counseling and surveillance Mixed hyperlipidemia Vitamin B 12 deficiency [facility] Work Phone: Evaluation + Plan [facility]Exec[facility] Evaluation noteNo InformationNortEncompass Health [employer] Other Evaluation noteNo assessment information available [facility] Work Phone: Evaluation note* Diagnosis Screening for genitourinary condition Screening for other and unspecified genitourinary condition documented in this encounter [facility] note* Diagnosis Coronary artery disease involving bear river coronary artery of bear [place] heart, unspecified whether angina present- Primary History of non-ST elevation myocardial infarction (NSTEMI) Old myocardial infarction Hx of CABG Postsurgical aortocoronary bypass status Primary hypertension Unspecified essential hypertension Other hyperlipidemia documented in this encounter [facility]* Diagnosis Onset Date Resolution Status BMI 39.0-39.9,adult acute Dietary counseling and surveillance acute Mixed hyperlipidemia acute Vitamin B 12 deficiency acut e Chronic HFrEF (heart failure with reduced ejection fraction) acute Hypertension acute Ischemic cardiomyopathy acut e Paroxysmal atrial fibrillation acute Type 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 with diabetic polyneuropathy acute Type 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 with hyperglycemia acute [facility] Work Phone: Evaluation note* Diagnosis Pre-operative examination- Primary Preoperative examination, unspecified Primary hypertension Unspecified essential hypertension Hyperlipidemia, unspecified hyperlipidemia type Coronary artery disease involving coronary bypass graft of bear [place] heart without angina pectoris Chronic systolic CHF (congestive heart failure) (HCC) Chronic systolic heart failure Paroxysmal atrial fibrillation (HCC) Atrial fibrillation Gastroesophageal reflux disease, unspecified whether esophagitis present Type 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 with other specified complication, with long-term current use of insulin ([facility]) Class 2 obesity due to excess calories [...] mellitus, with long-term current use of insulin ([facility]) Stable on Insulin glargine 60 units daily, [...] note 06/19/23 notes the following, Echo 03/30/22 ([facility]) - Global LV systolic function is difficult to assess but appears preserved, estimated ejection fraction is 55 to 60%, unable to accurately evaluate wall motion abnormalities. * Assessment & Plan Note - Kevin Goldsmith APRN.CNP - 07/27/2023 2:29 PM EDT Associated Problem(s): Coronary artery disease involving coronary bypass graft of bear [place] heart without angina pectoris CAD, hx of [place] s/p CABG x 5 in Dec 2021. [...] cardiac events (< 1% chance of , [place], CHF, malignant ventricular arrhythmias or high grade [...] BP today 114/66. documented in this encounter [facility]* Diagnosis Acquired buried penis- Primary Other specified disorder of penis documented in this encounter [facility]* Diagnosis Acquired buried penis- Primary Other specified disorder of penis Scarring of penis Other specified disorder of penis documented in this encounter [facility]* Diagnosis Screening for genitourinary condition Screening for other and unspecified genitourinary condition documented in this encounter [facility]* Diagnosis Onset Date Resolution Status Chronic HFrEF (heart failure with reduced ejection fraction) acute Hypertension acute Ischemic cardiomyopathy acut e Mixed hyperlipidemia acute Type 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 wit h diabetic polyneuropathy acute Type 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 with hyperglycemia acute Screening PSA (prostate specific antigen) noneactive Wellness examination noneact [facility] Work Phone: Evaluation note* Diagnosis Onset Date [...] Mixed hyperlipidemia acute Vitamin B 12 deficiency [facility] Work Phone: Evaluation note* Diagnosis Onset Date Resolution Status BMI 38.0-38.9,adult acute Dietary counseling and surveillance acute Mixed hyperlipidemia acute Vitamin B 12 deficiency [facility] Work Phone: History general Narrative - Reported* Type Description Date Medical History diabetes mellitus Medical History hypertension Medical History pancreatitis Medical History HLP Medical History R foot ulcer Surgical History heart stent Surgical History RIGHT FOOT SECOND TOE AMPUTATED 07/03 Hospitalization History see above Hospitalization History Gastric issues 03/2017 [id number] [facility] [employer] Other Histfuo general Narrative - Reported* Type Description Date Medical History diabetes mellitus Medical History hypertension Medical History pancreatitis Medical History HLP Medical History R foot ulcer Surgical History heart stent Surgical History RIGHT FOOT SECOND TOE AMPUTATED 07/03 Surgical History 5 Bypass [facility] 12/31/2021 Hospitalization History see above Hospitalization History Gastric issues 03/2017 Hospitalization History [facility] 12/2021 [facility] Other Hisofzy general Narrative - Reported* Type Description Date Medical History Heart failure with preserved eje ction fraction Medical History Acute prostatitis Medical History ASHD (arteriosclerotic heart dis ease) Medical History Balanitis Medical History Transient atrial fibrillation Medical History Unspecified open wou nd of unspecified toe(s) with damage to nail, subsequent encounter Medical History Type 2 diabetes david itus with diabetic polyneuropathy, unspecified whether shelter insulin use 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 Medical History S/P [...] versity Espinosa, CABG.4-5 VESSELS 12/31/2021 Surgical History [facility] PTCA/STENT LAD 2007 Surgical History COLONOSCOPY Hospitalization History see above Hospitalization History Gastric issues 03/2017 Hospitalization History [facility] ass surgery 12/2021 [facility] Other Hospital course Narrative No data available for this section [facility] Progress note No data available for this section [facility] Reason for referral (narrative) Referred by: ROXANN BARR, Antonia Sharma [facility] Reremk for referral (narrative)* Outpatient Procedure (Routine) - Closed Specialty Diagnoses / Procedures Referred By Elda santizo [facility] Diagnoses Coronary artery disease involving bear [place] coronary artery of [place] heart, unspecified whether angina present History of non-ST elevation myocardial infarction (NSTEMI) Hx of CABG Primary hypertension Other hyperlipidemia Procedures ECG COMPLETE ECG ROUTINE ECG W/LEAST 12 LDS W/I&R Ligia Colmenares MD [address] [place] [address] [facility] [place] [address] [place] [id number] Referral ID Status Reason Start Date Expiration Date V isits Requested Visits Authorized [id number] Closed Auto-Generate d Referral 06/16/2023 06/15/2024 1 1 Healthcare Chief Complaint and Reason for Visit Chief [...] surveillance Mixed hyperlipidemia Vitamin B 12 deficiency Chief Complaint Admit Date 6 month follow up April 23, 2024 3: 40pm Reason for Visit Admit Date BMI 38.0-38.9,adult February 07, 2024 4 :26pm Dietary counseling and surveillance Octo 2023 4:26pm Mixed hyperlipidemia February 07, 2024 4:26pm Vitamin B 12 deficiency February 06 4:26pm HTN (hypertension) February 07, 2024 4 :26pm Type 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 February 06, 2 024 4:26pm Chronic HFrEF (heart failure with reduced ejection fraction) April 23, 2024 3:40pm Hypertension April 23, 2024 3: 40pm Ischemic cardiomyopathy April 23 3:40pm Mixed hyperlipidemia April 23, 2024 3 :40pm Type 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 with diabetic p olyneuropathy April 23, 2024 3:40pm Type 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 with hyperglyce stephanie April 23, 2024 3:40pm Chief Complaint Admit Date 6 month follow up April 23, 2024 3: 40pm meter May 15, 2024 4 :00pm Reason for Visit Admit Date Chronic HFrEF (heart failure with reduced ejection fraction) April 23, 2024 3:40pm Hypertension April 23, 2024 3: 40pm Ischemic cardiomyopathy April 23 3:40pm Left leg pain April 23, 2024 3: 40pm Mixed hyperlipidemia April 23, 2024 3 :40pm Obesity April 23, 2024 3: 40pm Type 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 with diabetic p olyneuropathy April 23, 2024 3:40pm Type 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 with hyperglyce stephanie April 23, 2024 3:40pm BMI 38.0-38.9,adult May 15, 2024 4 :00pm Dietary counseling and surveillance Jose fraser 2024 4:00pm Mixed hyperlipidemia May 15, 2024 4:00pm Vitamin B 12 deficiency May 15 4:00pm HTN (hypertension) May 15, 2024 4 :00pm Type 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 May 15 4:00pm Advance Directives Advance Directive Response Recorded Date/ [...] of right hand (L02.511) Referral Organization [facility] Yola membreno Referring Provider First Name Fahad Referring Provider Last Name Yola Referring Provider Specialty Internal Me dicine Referred Organization [facility] Referred Provider Yarelis Santacruz Referred Address [address] [place] [address] [place], [place],[address] Referred Provider Specialty Orthopedic S urgery Referral [...] Diagnosis 1 Erectile dysfunction (N52.9) Referral Organization [facility] Referring Provider First Name Yamilex Referring Provider Last Name Bull Referring Provider Specialty Nurse Pract itioner Referred Organization Unknown Facility Referred Provider Antonia Bush Referred Provider Specialty Urology Referral Priority Routine Referral Appointment Date 2023-03-22 General Notes Tracie Alvarado 11/15 08:20:19 AM >Spoke to Poonam and patient scheduled for [place] office on 03/22/23 at 11am at [address] [place] [address] [address] in [facility]. Tracie Alvarado 11/28/2022 09:35:22 AM >Text message sent to patient requesting he call me for Referral details. Tracie Alvarado 11/28/2022 12:00:13 PM >Patient returns my call and is informed of appt. 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 patient Specialty Diagnoses / Procedures Referred By Elad t Referred To [facility] Diagnoses Coronary artery disease involving bear [place] coronary artery of [place] heart, unspecified whether angina present History of non-ST elevation myocardial infarction (NSTEMI) Hx of CABG Primary hypertension Other hyperlipidemia Procedures ECG COMPLETE ECG ROUTINE ECG W/LEAST 12 LDS W/I&R Ligia Colmenares MD [address] [place] [address] [facility] [address] [place] [id number] Referral ID Status Reason Start Date Expiration Date V isits Requested Visits Authorized [id number] Closed Auto-Generate d Referral 06/16/2023 06/15/2024 1 1 Reason Comments Pre-Op Visit Reason Comments Post-Op Visit Care Teams (unrecognized sec tion and content) Team Status: Active Member Role Status Dates Fahad Aceves DO Primary Care Provider Active Team Status: Inactive Member Role Status Dates Fahad Aceves DO Primary Care Provider Active Start: February 07, 2024 End: February 07, 2024 Yamilex Foster APRN Attending Provider Active Start: February 07, 2024 End: February 07, 2024 Team Status: Inactive Member Role Status Dates Fahad Aceves DO Primary Care Provide r, Attending Provider Active Start: April 23, 2024 End: April 23, 2024 Team Status: Active Member Role Status Dates Fahad Aceves DO Primary Care Provider Active Start: January 20, 2024 Simba Kasper MD Attending Provider Active Start: January 20, 2024 Team Status: Inactive Member Role Status Dates [...] Fahad Aceves DO Primary Care Provider Active Tondra K Mapus , [employer] SALES Attending Provider Active Team Status: Active Member Role Status Dates Fahad Aceves DO Primary Care Provider Active Tondra K Palomous , [employer] SALES Attending Provider Active Press Tender Short Goods Relationship Specialty Start Date End Date Antonia Bush [address] [place] [place] [address] Referring Urology 03/25/23 Press Tender Short Goods Relationship Specialty Start Date End Date Antonia Bush [address] [facility] [place] [address] Referring Urology 03/25/23 Press Tender Short Goods Relationship Specialty Start Date End Date Antonia Bush [address] [place] [address] Referring Urology 03/25/23 Team Status: Active Member Role Status Dates Fahad Aceves DO Primary Care Provider Active Start: June 19, 2023 Tondra K Bull , [employer] SAL[employer] Attending Provider Active Start: June 19, 2023 Team Status: Inactive Member Role Status Dates Fahad Aceves DO Primary Care Provider Active Start: June 21, 2023 End: June 21, 2023 Tondra K Palomous , [employer] SAL[employer] Attending Provider Active Start: June 21, 2023 End: June 21, 2023 Team Status: Inactive Member Role Status Dates Fahad Aceves DO Primary Care Provide r, Attending Provider Active Start: July 11, 2023 End: July 11, 2023 Press Tender Short Goods Relationship Specialty Start Date End Date Fahad Aceves [place] [address] PCP - General Internal Medicine 07/18/23 Antonia Bush [address] [facility] [place] [address] Referring Urology 03/25/23 Press Tender Short Goods Relationship Specialty Start Date End Date Fahad Aceves DO [address] [place] [address] PCP - General Internal Medicine 07/18/23 Antonia Bush MD [address] [place] [address] Referring Urology 03/25/23 Press Tender Short Goods Relationship Specialty Start Date End Date Fahad Aceves DO [address] [place] [address] PCP - General Internal Medicine 07/18/23 Antonia Bush MD [address] [place] [address] Referring Urology 03/25/23 Press Tender Short Goods Relationship Specialty Start Date End Date Fahad Aceves DO [address] [place] [address] PCP - General Internal Medicine 07/18/23 Antonia Bush MD [address] [place] [address] Referring Urology 03/25/23 Press Tender Short Goods Relationship Specialty Start Date End Date Fahad Aceves DO [address] [place] [address] PCP - General Internal Medicine 07/18/23 Antonia Bush MD [address] [place] [address] Referring Urology 03/25/23 Press Tender Short Goods Relationship Specialty Start Date End Date Fahad Aceves DO [address] [place] [address] PCP - General Internal Medicine 07/18/23 Antonia Bush MD Lanie CARO [facility] [address] Referring Urology 03/25/23 Team Status: Inactive Member Role Status Dates Fahad Aceves DO Primary Care Provider Active Start: May 15, 2024 End: May 15, 2024 Yamilex Foster APRN Attending Provider Active Start: May 15, 2024 End: May 15, 2024 Goals (unrecognized section and content) Goals may be documented in a n alternate section (unrecognized sect ion and content) No Status Records FoundNo Status Records FoundNo Status Records FoundNo Status Records FoundNo Status Records Found INFORMATION SOURCE (unrecogn ized section and content) DATE CREATED AUTHOR 08/31/2022 [facility] DATE CREATED AUTHOR AUTHOR'S ORGANIZ ATION 06/01/2023 [facility] DATE CREATED AUTHOR AUTHOR'S ORGANIZ ATION 09/19/2023 [facility] DATE CREATED AUTHOR AUTHOR'S ORGANIZ ATION 01/16/2024 [facility] DATE CREATED AUTHOR AUTHOR'S ORGANIZ ATION 01/29/2024 [facility] Source Comments (unrecognize d section and content) In the event this informatio n is protected by the Federal Confidentiality of Alcohol and Drug Abuse Patient Records regulations: The Federal rules restrict any use of the information to criminally investigate or prosecute any alcohol or drug abuse patient.[facility] the event this information is protected by the Federal Confidentiality of Alcohol and Drug Abuse Patient Records regulations: The Federal rules restrict any use of the information to criminally investigate or prosecute any alcohol or drug abuse patient.[facility] System[facility] the event this information is protected by the Federal Confidentiality of Alcohol and Drug Abuse Patient Records regulations: The Federal rules restrict any use of the information to criminally investigate or prosecute any alcohol or drug abuse patient.[facility] System[facility] the event this information is protected by the Federal Confidentiality of Alcohol and Drug Abuse Patient Records regulations: The Federal rules restrict any use of the information to criminally investigate or prosecute any alcohol or drug abuse patient.[facility] System[facility] the event this information is protected by the Federal Confidentiality of Alcohol and Drug Abuse Patient Records regulations: The Federal rules restrict any use of the information to criminally investigate or prosecute any alcohol or drug abuse patient.[facility] System[facility] the event this information is protected by the Federal Confidentiality of Alcohol and Drug Abuse Patient Records regulations: The Federal rules restrict any use of the information to criminally investigate or prosecute any alcohol or drug abuse patient.[facility] System[facility] the event this information is protected by the Federal Confidentiality of Alcohol and Drug Abuse Patient Records regulations: The Federal rules restrict any use of the information to criminally investigate or prosecute any alcohol or drug abuse patient.[facility] System[facility] the event this information is protected by the Federal Confidentiality of Alcohol and Drug Abuse Patient Records regulations: The Federal rules restrict any use of the information to criminally investigate or prosecute any alcohol or drug abuse patient.[facility] System[facility] the event this information is protected by the Federal Confidentiality of Alcohol and Drug Abuse Patient Records regulations: The Federal rules restrict any use of the information to criminally investigate or prosecute any alcohol or drug abuse patient.[facility] System[facility] the event this information is protected by the Federal Confidentiality of Alcohol and Drug Abuse Patient Records regulations: The Federal rules restrict any use of the information to criminally investigate or prosecute any alcohol or drug abuse patient.[facility] SystemIn the event this information is protected by the Federal Confidentiality of Alcohol and Drug Abuse Patient Records regulations: The Federal rules restrict any use of the information to criminally investigate or prosecute any alcohol or drug abuse patient.[facility] FOR RECORDS PERTAINING TO PATIENTS WHO ARE [...] BE BASED ON THE PRIMARY CLINICAL RECORDS. [facility]. provides no warranty or guarantee of the accuracy or completeness of information in this document.
--- NOTE | 2024-06-20 07:30 | CA_ITS ---
Patient Name: CADEN WILLS MR#: [id number] : 1960 Exam Date: 06/20/2024 Ordering Doctor: DR SIMBA KASPER M.D. ECHOCARDIOGRAM REPORT PROCEDURE: CA ECHO DOPPLER COMPLETE INDICATIONS: Heart failure with reduced ejection fraction, CABGx5 (2021), diabetes COMPARISON: None. DESCRIPTION: COMPLETE ECHOCARDIOGRAM Real-time transthoracic echocardiography with 2D, M-mode, spectral and color flow Doppler performed. QUALITY: Technical quality was good. LEFT VENTRICLE: Normal chamber size. Normal left ventricular wall thickness. Systolic function appears to be at the lower limits of normal. LV EF: Low normal left ventricular ejection fraction, (50%). DIASTOLIC: Diastolic function is indeterminate. ATRIAL SEPTUM: Visually appears intact. LEFT ATRIUM: Mild dilatation. RIGHT ATRIUM: Mild dilatation. RIGHT VENTRICLE: Normal chamber size. Normal right ventricular systolic function. TRICUSPID VALVE: Normal mobility and thickness. No stenosis with no regurgitation. Unable to assess right-sided pressures due to lack of measurable tricuspid regurgitation. MITRAL VALVE: Normal mobility and thickness. No evidence of mitral valve stenosis. Mild mitral annular calcification. No mitral regurgitation. AORTIC VALVE: Normal trileaflet appearance. Mildly calcified aortic valve. Normal leaflet mobility. No evidence of aortic valve stenosis. No aortic regurgitation. AORTIC ROOT: Normal diameter and appearance. PULMONIC VALVE: Normal thickness and mobility. No stenosis. No regurgitation. PERICARDIUM: No evidence of pericardial effusion. IVC: Collapses with inspirations. IVC is normal in size. PLEURA: CONCLUSION: 1. The left ventricular is normal in size and exhibits low normal systolic function. Estimated LVEF is 50%. 2. Normal right ventricular size and systolic function. 3. No significant valvular dysfunction. 4. Unable to assess right-sided pressures due to lack of measurable tricuspid regurgitation. Adult Echocardiography Procedure Report Left Ventricle LVEDD (3.7 - 5.6 cm): 5.17 cm LVESD (2.2 - 4.0 cm): 4.34 cm LVIVS thickness (0.6 - 1.2 cm): 1.01 cm LVPW thickness (0.5 - 1.0 cm): 0.88 cm e': 0.13 m/s E - e': 5.95 LVOT Max Gradient: 2.64 mm[Hg] LVOT Area (cm2): 0.81 m/s Peak Velocity (LVOT): 0.81 m/s Mean Velocity (LVOT): 0.52 m/s LVOT Diameter 2.64 cm Left Atrium LA Volume Index (2D A2C): 23.92 ml/m2 Left Atrium Systolic Dimension: 5.36 cm Mitral Valve MV E to A Ratio: 1.26 Mitral Valve A-Wave Peak Velocity: 0.59 m/s Mitral Valve E-Wave Peak Velocity: 0.75 m/s Right Ventricle Aorta AO Root Diam: 4.25 cm Aortic Valve AoV Area (Peak Kain): 5.20 cm2, 5.20 cm2 AoV Area (VTI): 4.54 cm2, 4.54 cm2 Peak Velocity(Antegrade Flow): 0.85 m/s Peak Gradient(Antegrade Flow): 2.92 mm[Hg] Mean Velocity(Antegrade Flow): 0.61 m/s Mean Gradient(Antegrade Flow): 1.66 mm[Hg] Velocity Time Integral: 19.66 cm Tricuspid Valve Pulmonic Valve Mean Gradient: 2.03 mm[Hg] Mean Velocity: 0.64 m/s Peak Velocity: 1.08 m/s, 1.12 m/s Peak Gradient: 5.00 mm[Hg], 4.68 mm[Hg] Right Atrium Right Atrium Systolic Pressure: 59.49 ml, 59.49 ml Dictated by: Simba Kasper M.D. on 06/20/2024 at 18:02 Approved by: Simba Kasper M.D. on 06/20/2024 at 18:10
== END 2024-06-20 07:11 | disposition home or self-care (01) ==
LOC: CARD 07:10
PROVIDERS: PCP Internal Medicine; Visit Provider Internal Medicine Interventional Cardiology
DX: I25.10 Atherosclerotic heart disease of native coronary artery without angina pectoris (principal); I50.22 Chronic systolic (congestive) heart failure
CPT/HCPCS: 93306

== ENCOUNTER 2024-07-13 06:30 | Outpatient (OUT) | payer OTHER, SELFPAY ==
--- OUTSIDE RECORDS SUMMARY | 2024-07-13 06:34 | XMS_ITS | CCD ---
Author Organization [facility] Care Team Providers Care Market Research Coordinator Name Role Phone Yamilex Foster Unavailable Celestina [...] MISC, DR PARRY Consulting Unavailable MISC, DR PARYR Attending Unavailable MISC, DR PARRY Admitting Unavailable BALL, DR GUSTAFSON Primary Care Unavailable DOMINGO, VICKEY Admitting Unavailable DOMINGO, VICKEY Attending Unavailable Zieblindsey, Heavenly Consulting Unavailable DOMINGO, VICKEY Consulting Unavailable BALL, DR GUSTAFSON Primary Care Unavailable MOUKARBEL, DR COTTRELL Consulting Unavailable MOUKARBEL, DR COTTRLEL Attending Unavailable MOUKARBEL, DR COTTRELL Admitting Unavailable HIGHLANDERDAMIAN Admitting Unavailable BALL, DR GUSTAFSON Primary Care Unavailable HIGHLANDER, DAMIAN Medrano Attending Unavailable Yarelis Santacruz Unavailable YAMILEX FOSTER Primary Care Physician [phone] Antonia Bush Unavailable DO Fahad Aceves Primary Care Provider [phone] JAKE Foster Attending Provider Yamilex Foster Attending [...] Reaction(s) Facility (20 sources) empagliflozin Drug Allergy [facility] 9facts Other (20 sources) icosapent ethyl Drug Allergy n/v Eventable Other (1 source) empagliflozin Drug Allergy 4 [facility] Repository (1 source) icosapent ethyl Drug Allergy 4 [facility] Repository Medications Current Medications Medication Drug Class(es) [...] on above: Take 1 capsule by mo [facility] two times a day. cinnamon bark 500 [...] 02-07-2024 Insulin Lispro-Aabc Disconti nued 0 SUBCUT .[facility] June 21, 2023 1:00am February [...] at bedtime June 25, 2018 11:00pm omega 8-ksz-zmm-fish oil (FISH OIL) 100-160-1,000 mg cap (11 sources) omega 3-kxb-wqm-fish oil (FISH OIL) 100-160-1,000 mg cap Take [...] Coronary arteriosclerosis; 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: [Atherosclerotic heart disease of ramona coronary artery without angina pectoris] Onset: 01-06-2022 [...] sources) Long-term current use of insulin; 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: [senior living (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] Episodic Other aftercare (1 source) Long-term current use of anticoagulant; 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: [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 anticoagulants] Onset: 03-22-2023 Episodic [...] Onset: 12-31-2021 Episodic Other aftercare (9 sources) 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; 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: [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 CURRENT USE OF INSULIN] Onset: 03-24-2021 Resolved: 10-21-2021 Episodic Other aftercare (1 source) 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 oral hypoglycemic drugs; 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: [HALF-WAY USE ORAL HYPOGLYCEMIC DX] Onset: 01-06-2022 Episodic [...] fraction] Hemoglobin A1c/Hemoglobin.total in Blood by HPLC [facility] No Panel Informationon 02-06 Bedside Glucose 119 [facility] Telemedicineon 01-23-2024 Telemedicine [id number] Caden Wills 1960 M Date Provider Department Center 01/23/2024 CAROLINE MARRERO HVCANTICOAG DE HeartVAS Family History Problem Relation Age of Onset Coronary artery disease Father Family Status - Relation Status Age at Father Level of Service:NOCHG [place] 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 Normal [facility] Cholesterol in LDL Calc [Mas s/Vol]on 01-20-2024 Cholesterol in LDL [Mass/Vol] 49.0 mg/dL [facility] Comment on above: <100 mg/dl [id number] 0-129 mg/dl NEAR OR ABOVE ZODYTWS264-185 mg/dl BORDERLINE QESX324-258 mg/dl HIGH>190 mg/dl VERY HIGH Cholesterol in VLDL Calc [Ma ss/Vol]on 01-20-2024 Cholesterol in VLDL [Mass/Vol] 26.6 mg/dL [facility] Laboratory - Chemistry and C hemistry - challengeon 01-20-2024 Cholesterol [Mass/Vol] 107 mg/dL <=200 Fi [facility] Cholesterol in HDL [Mass/Vol] 32 mg/dL Low 40-60 [facility] Comment on above: > or =60 mg/dl - LOW CARDIOVASCULAR RISK<40 mg/dl - HIGH CARDIOVASCULAR RISK Triglyceride [Mass/Vol] 133 mg/dL <=150 F [facility] No Panel Informationon 01-19 Miscellaneous Test COMMENT . [facility] Comment on above: Test Ordered: [id number] Apolipoprotein BApolipoprotein B 68 mg/dL Reference Range: <90 Desirable < 90 Borderline High 90 - 99 High 100 - 130 Very High >130 ASCVD RISK THERAPEUTIC TARGET CATEGORY APO B (mg/dL) Very High Risk <80 (if extreme risk <70) High Risk <90 Moderate Risk <90Performed at: [facility] [address] [place], [place] [id number] Director: Fletcher Patel MD, Phone: [phone] at: [facility] [address] [id number] Director: Toy Conroy PhD, Phone: [phone] Serum or plasma total choles terol/high density lipoprotein (HDL) cholesterol mass evelyn 01-20-2024 Cholesterol.total/Radha sterol in HDL [Mass ratio] 3.3 {ratio} [facility] Comment on above: 3.3 - 4.4 LOW RISK4. 4 - 7.1 AVERAGE RISK7.1 - 11.0 MODERATE RISK>11.0 HIGH RISK 29on 01-15-2024 29 Addended by: OPAL PEÑA on: 01/16/2024 10:44 AM Modules accepted: Orders [facility] 29 Addended by: CAROLINE SILVA on: 01/16/2024 12:14 PM Modules accepted: Orders [facility] Brian 01-15-2024 CHUYN Telephone (RICKEY) CADEN WILLS ([id number]) 1960 M Date Time Provider Department 01/15/24 JADA WILKINS During your visit today, we recorded the following information about you: Jada Wilkins APRN.CNP 01/15/2024 2:53 PM Signed ----- Message from Kourtney Sena sent at 01/15/2024 9:13 AM EDT ----- Regarding: Refill medication [facility] in [place] faxed over a refill request for Cephalexin [...] Take 20 mEq by mouth. - omega 6-fip-lfs-fish oil (FISH OIL) 100-160-1,000 mg cap Take [...] Encounter Status:Closed by JADA WILKINS on 01/15/24 [facility] Documentationon 01-15-2024 Documentation [id number] Caden Wills 1960 Date Provider Department Center 01/15/2024 CAROLINE MARRERO [facility] CARD [facility] HeartVAS Family History Problem Relation Age of Onset Coronary artery disease Father Family Status - Relation Status Age at Father Reason for Visit and Comments: PharmD Cardiology Consult [Other] Normal [facility] Brian 10-04-2023 CHUYN Telephone (RICKEY) CADEN WILLS ([id number]) 1960 M Date Time Provider Department 10/04/23 [...] penis surgery on 07/28/2023. Called [facility] [place]. He reports trying to cancel refill request for Keflex with [facility] but was unsuccessful. Denies concerns about infection. Reminded him that he should follow up with Dr. Alberto in the fall. Left voicemail at [facility] in [place], advising that Caden A [place] does NOT need refill on Keflex and asking them to take it off auto refill. Jada Wilkins APRN.METAPHYSICS TEACHER Allergies As of Date: 10/04/2023 (No Known [...] Take 20 mEq by mouth. - omega 2-uwn-pbs-fish oil (FISH OIL) 100-160-1,000 mg cap Take [...] Encounter Status:Closed by JADA WILKINS on 10/04/23 [facility] Consultation Noteon 09-18-19 Consultation Note [id number] .[id number] [facility] CNOVon 09-13-2023 CNOV Office Visit (UROLMN ) CADEN WILLS ([id number]) 1960 M Date Time Provider Department 09/13/23 [...] tablet Take 20 mEq by mouth. omega 5-fug-scy-fish oil (FISH OIL) 100-160-1,000 mg cap Take [...] Jian Alberto MD Referring Provider: GIOVANNI MULLIGAN [[id number]] Allergies As of Date: 09/13/2023 (No Known [...] U-300 SOLOST (more content not included)... Normal [facility] CNOVon 08-04-2023 CNOV Office Visit (UROLMN ) CADEN WILLS ([id number]) 1960 M Date Time Provider Department 08/04/23 [...] Take 20 mEq by mouth. - omega 1-lpr-ixd-fish oil (FISH OIL) 100-160-1,000 mg cap Take [...] Status:Closed by GIOVANNI MULLIGAN on 08/04/23 Normal [facility] Basic metabolic 2000 panelon 07-29-2023 Anion gap [Moles/Vol] 14 mmol/L Normal 9-18 [facility] Comment on above: Order Comment: Speci men Type: BLOOD SPECIMEN Ordering Facility: [facility] Address: [address] [place] [address] Performed By: #### 2 4321-2 #### [facility] CLIA [id number] [address] [place] [address] [place] Calcium [Mass/Vol] 8.9 mg/dL Normal 8.5-10.2 [facility] Comment on above: Order Comment: Speci men Type: BLOOD SPECIMEN Ordering Facility: [facility] Address: [address] [place] [address] Performed By: #### 2 4321-2 #### [facility] CLIA [id number] [address] [place] [address] [place] Chloride [Moles/Vol] 102 mmol/L Normal 97-105 [facility] Comment on above: Order Comment: Speci men Type: BLOOD SPECIMEN Ordering Facility: [facility] Address: [address] [place] [address] Performed By: #### 2 4321-2 #### [facility] CLIA [id number] [address] [place] [address] [place] CO2 [Moles/Vol] 23 mmol/L Normal 22-30 [facility] Comment on above: Order Comment: Speci men Type: BLOOD SPECIMEN Ordering Facility: [facility] Address: [address] [place] [address] Performed By: #### 2 4321-2 #### [facility] CLIA [id number] [address] [place] [address] [place] Creatinine [Mass/Vol] 0.71 mg/dL Low 0.73-1.22 [facility] Comment on above: Order Comment: Speci men Type: BLOOD SPECIMEN Ordering Facility: [facility] Address: [address] [place] [address] Performed By: #### 2 4321-2 #### [facility] CLIA [id number] [address] [place] [address] [place] Creatinine and Glomerular filtration rate.predicted panel (S/P/Bld) 104 mL/min/1.73m??? Normal >=60 [facility] Comment on above: Order Comment: Speci men Type: BLOOD SPECIMEN Ordering Facility: [facility] Address: [address] [place] [address] Result Comment: Leticia mated Glomerular Filtration Rate [...] GFR. Performed By: #### 2 4321-2 #### [facility] CLIA [id number] [address] [place] [address] [place] Glucose [Mass/Vol] 173 mg/dL High 74-99 [facility] Comment on above: Order Comment: Specbrynn villarreal Type: BLOOD SPECIMEN Ordering Facility: [facility] Address: [address] [place] [address] Result Comment: The [place] Diabetes Association (ADA) provides guidance for cutoff [...] Standards of Medical Care in Diabetes 2016, [place] Diabetes Association. Diabetes Care. 2016.39(Suppl 1). Performed By: #### 2 4321-2 #### [facility] CLIA [id number] [address] [place] [address] [place] Potassium [Moles/Vol] 4.3 mmol/L Normal 3.7-5.1 [facility] Comment on above: Order Comment: Karina villarreal Type: BLOOD SPECIMEN Ordering Facility: [facility] Address: [address] [place] [address] Performed By: #### 2 4321-2 #### [facility] CLIA [id number] [address] [place], [place] [id number] [place] Sodium [Moles/Vol] 139 mmol/L Normal 136-144 [facility] Comment on above: Order Comment: Speci men Type: BLOOD SPECIMEN Ordering Facility: [facility] Address: [address] [place] [address] Performed By: #### 2 4321-2 #### [facility] CLIA [id number] [address] [place] [address] [place] Urea nitrogen [Mass/Vol] 18 mg/dL Normal 9-24 [facility] Comment on above: Order Comment: Speci men Type: BLOOD SPECIMEN Ordering Facility: [facility] Address: [address] [place] [address] Performed By: #### 2 4321-2 #### [facility] CLIA [id number] [address] [place] [address] [place] CBC panel Auto (Bld)on 07-28 Erythrocyte distribution width (RBC) [Ratio] 15.8 % High 11.5-15.0 [facility] Comment on above: Order Comment: Speci men Type: BLOOD SPECIMEN Ordering Facility: [facility] Address: [address] [place] [address] Performed By: #### 5 8410-2 #### [facility] CLIA [id number] [address] [place] [address] [place] Hematocrit (Bld) [Volume fraction] 44.7 % Normal 39.0-51.0 [facility] Comment on above: Order Comment: Speci men Type: BLOOD SPECIMEN Ordering Facility: [facility] Address: [address] [place] [address] Performed By: #### 5 8410-2 #### [facility] CLIA [id number] [address] [place] [address] [place] Hemoglobin (Bld) [Mass/Vol] 14.5 g/dL Normal 13.0-17.0 [facility] Comment on above: Order Comment: Speci men Type: BLOOD SPECIMEN Ordering Facility: [facility] Address: [address] [place] [address] Performed By: #### 5 8410-2 #### [facility] CLIA [id number] [address] [place] [address] [place] MCH (RBC) [Entitic mass] 27.4 pg Normal 26.0-34.0 [facility] Comment on above: Order Comment: Speci men Type: BLOOD SPECIMEN Ordering Facility: [facility] Address: [address] [place] [address] Performed By: #### 5 8410-2 #### [facility] CLIA [id number] [address] [place] [address] [place] MCHC (RBC) [Mass/Vol] 32.4 g/dL Normal 30.5-36.0 [facility] Comment on above: Order Comment: Speci men Type: BLOOD SPECIMEN Ordering Facility: [facility] Address: [address] [place] [address] Performed By: #### 5 8410-2 #### [facility] CLIA [id number] [address] [place] [address] [place] MCV (RBC) [Entitic vol] 84.3 fL Normal 80.0-100.0 [facility] Comment on above: Order Comment: Speci men Type: BLOOD SPECIMEN Ordering Facility: [facility] Address: [address] [place] [address] Performed By: #### 5 8410-2 #### [facility] CLIA [id number] [address] [place] [address] [place] Nucleated RBC (Bld) [#/Vol] 10*3/uL Normal <0.01 [facility] Comment on above: Order Comment: Speci men Type: BLOOD SPECIMEN Ordering Facility: [facility] Address: [address] [place] [address] Performed By: #### 5 8410-2 #### [facility] CLIA [id number] [address] [place] [address] [place] Platelet mean volume (Bld) [Entitic vol] 9.6 fL Normal 9.0-12.7 [facility] Comment on above: Order Comment: Speci men Type: BLOOD SPECIMEN Ordering Facility: [facility] Address: [address] [place] [address] Performed By: #### 5 8410-2 #### [facility] CLIA [id number] [address] [place] [address] [place] Platelets (Bld) [#/Vol] 268 10*3/uL Normal 150-400 [facility] Comment on above: Order Comment: Speci men Type: BLOOD SPECIMEN Ordering Facility: [facility] Address: [address] [place] [address] Performed By: #### 5 8410-2 #### [facility] CLIA [id number] [address] [place] [address] [place] RBC (Bld) [#/Vol] 5.30 10*6/uL Normal 4.20-6.00 [facility] Comment on above: Order Comment: Speci men Type: BLOOD SPECIMEN Ordering Facility: [facility] Address: [address] [place] [address] Performed By: #### 5 8410-2 #### [facility] CLIA [id number] [address] [place] [address] [place] WBC (Bld) [#/Vol] 13.43 10*3/uL High 3.70-11.00 [facility] Comment on above: Order Comment: Speci men Type: BLOOD SPECIMEN Ordering Facility: [facility] Address: [address] [place] [address] Performed By: #### 5 8410-2 #### [facility] CLIA [id number] [address] [place] [address] [place] CNDSon 07-29-2023 CNDS HNO ID: [id number] Author: JIAN ALBERTO MD Service: Urology Author Type: Resident Type: Discharge Summary Filed: 07/29/2023 12:28 Note Text: Attestation signed by Jian Alberto MD at 07/29/2023 12:28 PM Discussed with resident, agree with claudia Alberto M.D. 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) Operations During Hospitalization: CYSTOSCOPY FLEXIBLE: 11297 (CPT?) SCROTOPLASTY V-Y: 06499 (CPT?) EXCISION, EXCESSIVE SKIN AND SUBCUTANEOUS TISSUE, OTHER AREA prepubic lipectomy with fixation of skin to pubic region: 75067 (CPT?) EXCISION LYSIS PENILE POST-CIRCUMCISION ADHESIONS: 77393 (CPT?) Procedures Performed While Hospitalized: Intubation Reason [...] OiL 100-160-1,000 mg Cap Generic drug: omega 5-ver-mba-fish oil insulin aspart U-100 100 unit/mL Commonly [...] Medications These medications were sent to e- [facility]/pharmacy [address] [phone] [place] [address] acetaminophen 325 mg tablet cephALEXin 500 mg capsule docusate sodium 100 mg capsule oxyCODONE IR 5 mg immediate release tablet Future Appointments: No future appointments. Electronically STEPHANIE (more content not included)... Normal [facility] ANES POSTPROC EVALon 024 ANES POSTPROC EVAL HNO ID: [id number] Author: CHILANGO CURIEL MD Service: ? Author Type: Anesthesiologist Type: Anesthesia Postprocedure Evaluation Filed: 07/28/2023 13:45 Note Text: POST ANESTHESIA EVALUATION NOTE : 1960 Procedure Summary Date: 07/28/23 Room / Location: [address] [facility] Anesthesia Start: 0950 Anesthesia [...] July 28, 2023 TIME: 1:45 PM CSN: [id number] Normal [facility] ANES PRE-OPon 07-28-2023 ANES PRE-OP HNO ID: [id number] Author: CHILANGO CURIEL MD Service: ? Author [...] artery disease involving coronary bypass graft of ramona heart without angina pectoris (+) Paroxysmal atrial [...] and consent discussed: yes. Patient / Responsible Democrat agrees to proceed: yes Patient / Surrogate [...] Take 20 mEq by mouth. - omega 3-poi-zfx-fish oil (FISH OIL) 100-160-1,000 mg cap Take 1,000 mg by mouth. I have interviewed and examined the patient. I have reviewed the medical record and/or the pre-anesthesia evaluation, pertinent labs, and test results. This contains updated information obtained within 48 hours of Surgery/Procedure. SIGNATURE: Chilango Curiel MD PATIENT NAME: Caden Wills DATE: July 28, 2023 TIME: 9:53 AM CSN: [id number] Normal [facility] BRIEF OP NOTon 07-28-2023 BRIEF OP NOT HNO ID: [id number] Author: JUICE GEE MD Service: Urology Author Type: Resident Type: Brief Op Note Filed: 07/28/2023 12:38 Note Text: BRIEF OPERATIVE / PROCEDURE NOTE LOG ID: [id number] SURGERY/PROCEDURE DATE: 07/28/2023 INCISION/PROCEDURE START TIME: 10:32 AM INCISION CLOSE/PROCEDURE END TIME: 12:25 PM SURGEON(S)/PROCEDURAL IST(S) AND FARM CONTRACTOR(S): Surgeon(s) and Role: * Jian Alberto MD [...] July 28, 2023 TIME: 12:36 PM Normal [facility] Basic metabolic 2000 panelon 07-28-2023 Anion gap [Moles/Vol] 13 mmol/L Normal 9-18 [facility] Comment on above: Order Comment: Speci men Type: BLOOD SPECIMEN Ordering Facility: [facility] Address: [address] [place] [address] Performed By: #### 5 8410-2 #### [facility] CLIA [id number] [address] [place] [address] [place] Calcium [Mass/Vol] 9.3 mg/dL Normal 8.5-10.2 [facility] Comment on above: Order Comment: Speci men Type: BLOOD SPECIMEN Ordering Facility: [facility] Address: [address] [place] [address] Performed By: #### 5 8410-2 #### [facility] CLIA [id number] [address] [place] [address] [place] Chloride [Moles/Vol] 104 mmol/L Normal 97-105 [facility] Comment on above: Order Comment: Speci men Type: BLOOD SPECIMEN Ordering Facility: [facility] Address: [address] [place] [address] Performed By: #### 5 8410-2 #### [facility] CLIA [id number] [address] [place] [address] [place] CO2 [Moles/Vol] 23 mmol/L Normal 22-30 [facility] Comment on above: Order Comment: Speci men Type: BLOOD SPECIMEN Ordering Facility: [facility] Address: [address] [place] [address] Performed By: #### 5 8410-2 #### [facility] CLIA [id number] [address] [place] [address] [place] Creatinine [Mass/Vol] 0.75 mg/dL Normal 0.73-1.22 [facility] Comment on above: Order Comment: Speci men Type: BLOOD SPECIMEN Ordering Facility: [facility] Address: [address] [place] [address] Performed By: #### 5 8410-2 #### [facility] CLIA [id number] [address] [place] [address] [place] Creatinine and Glomerular filtration rate.predicted panel (S/P/Bld) 103 mL/min/1.73m??? Normal >=60 [facility] Comment on above: Order Comment: Speci men Type: BLOOD SPECIMEN Ordering Facility: [facility] Address: [address] [place] [address] Result Comment: Leticia mated Glomerular Filtration Rate [...] GFR. Performed By: #### 5 8410-2 #### [facility] CLIA [id number] [address] [place] [address] [place] Glucose [Mass/Vol] 182 mg/dL High 74-99 [facility] Comment on above: Order Comment: Speci men Type: BLOOD SPECIMEN Ordering Facility: [facility] Address: [address] [place] [address] Result Comment: The [place] Diabetes Association (ADA) provides guidance for cutoff [...] Standards of Medical Care in Diabetes 2016, [place] Diabetes Association. Diabetes Care. 2016.39(Suppl 1). Performed By: #### 5 8410-2 #### [facility] CLIA [id number] [address] [place] [address] [place] Potassium [Moles/Vol] 4.7 mmol/L Normal 3.7-5.1 [facility] Comment on above: Order Comment: Speci men Type: BLOOD SPECIMEN Ordering Facility: [facility] Address: [address] [place] [address] Performed By: #### 5 8410-2 #### [facility] CLIA [id number] [address] [place] [address] [place] Sodium [Moles/Vol] 140 mmol/L Normal 136-144 [facility] Comment on above: Order Comment: Speci men Type: BLOOD SPECIMEN Ordering Facility: [facility] Address: [address] [place] [address] Performed By: #### 5 8410-2 #### [facility] CLIA [id number] [address] [place] [address] [place] Urea nitrogen [Mass/Vol] 16 mg/dL Normal 9-24 [facility] Comment on above: Order Comment: Speci men Type: BLOOD SPECIMEN Ordering Facility: [facility] Address: [address] [place] [address] Performed By: #### 5 8410-2 #### [facility] CLIA [id number] [address] [place] [address] [place] CBC panel Auto (Bld)on 07-27 Erythrocyte distribution width (RBC) [Ratio] 17.2 % High 11.5-15.0 [facility] Comment on above: Order Comment: Speci men Type: BLOOD SPECIMEN Ordering Facility: [facility] Address: [address] [place] [address] Performed By: #### 5 8410-2 #### [facility] CLIA [id number] [address] [place] [address] [place] Hematocrit (Bld) [Volume fraction] 50.7 % Normal 39.0-51.0 [facility] Comment on above: Order Comment: Speci men Type: BLOOD SPECIMEN Ordering Facility: [facility] Address: [address] [place] [address] Performed By: #### 5 8410-2 #### [facility] CLIA [id number] [address] [place] [address] [place] Hemoglobin (Bld) [Mass/Vol] 16.6 g/dL Normal 13.0-17.0 [facility] Comment on above: Order Comment: Speci men Type: BLOOD SPECIMEN Ordering Facility: [facility] Address: [address] [place] [address] Performed By: #### 5 8410-2 #### [facility] CLIA [id number] [address] [place] [address] [place] MCH (RBC) [Entitic mass] 27.7 pg Normal 26.0-34.0 [facility] Comment on above: Order Comment: Speci men Type: BLOOD SPECIMEN Ordering Facility: [facility] Address: [address] [place] [address] Performed By: #### 5 8410-2 #### [facility] CLIA [id number] [address] [place] [address] [place] MCHC (RBC) [Mass/Vol] 32.7 g/dL Normal 30.5-36.0 [facility] Comment on above: Order Comment: Speci men Type: BLOOD SPECIMEN Ordering Facility: [facility] Address: [address] [place] [address] Performed By: #### 5 8410-2 #### [facility] CLIA [id number] [address] [place] [address] [place] MCV (RBC) [Entitic vol] 84.6 fL Normal 80.0-100.0 [facility] Comment on above: Order Comment: Speci men Type: BLOOD SPECIMEN Ordering Facility: [facility] Address: [address] [place] [address] Performed By: #### 5 8410-2 #### [facility] CLIA [id number] [address] [place] [address] [place] Nucleated RBC (Bld) [#/Vol] 10*3/uL Normal <0.01 [facility] Comment on above: Order Comment: Speci men Type: BLOOD SPECIMEN Ordering Facility: [facility] Address: [address] [place] [address] Performed By: #### 5 8410-2 #### [facility] CLIA [id number] [address] [place] [address] [place] Platelet mean volume (Bld) [Entitic vol] 9.5 fL Normal 9.0-12.7 [facility] Comment on above: Order Comment: Speci men Type: BLOOD SPECIMEN Ordering Facility: [facility] Address: [address] [place] [address] Performed By: #### 5 8410-2 #### [facility] CLIA [id number] [address] [place] [address] [place] Platelets (Bld) [#/Vol] 284 10*3/uL Normal 150-400 [facility] Comment on above: Order Comment: Speci men Type: BLOOD SPECIMEN Ordering Facility: [facility] Address: [address] [place] [address] Performed By: #### 5 8410-2 #### [facility] CLIA [id number] [address] [place] [address] [place] RBC (Bld) [#/Vol] 5.99 10*6/uL Normal 4.20-6.00 [facility] Comment on above: Order Comment: Speci men Type: BLOOD SPECIMEN Ordering Facility: [facility] Address: [address] [place] [address] Performed By: #### 5 8410-2 #### [facility] CLIA [id number] [address] [place] [address] [place] WBC (Bld) [#/Vol] 10.10 10*3/uL Normal 3.70-11.00 [facility] Comment on above: Order Comment: Speci men Type: BLOOD SPECIMEN Ordering Facility: [facility] Address: [address] [place] [address] Performed By: #### 5 8410-2 #### [facility] CLIA [id number] [address] [place] [address] [place] NURSING PROGon 07-28-2023 NURSING PROG HNO ID: [id number] Author: DAVID MCLAUGHLIN RN Service: ? Author Type: Registered Nurse Type: Nursing Progress Note Filed: 07/28/2023 14:53 Note Text: Admission/Transfer Note PATIENT NAME: Caden Wills Patient Location: [facility]/M081-06 Room: [place] [address] Patient admitted from PACU via bed in stable condition. Actions taken: Patient oriented to room, call light function, prescribed activities, Patient rights, and Quiet at night. Patient belongings with patient. This note was completed by: David Mcintosh [facility] SURGICAL PATHOLOGYon 024 CASE REPORT Normal [facility] Comment on above: Order Comment: Speci men Type: BLOOD SPECIMEN Ordering Facility: [facility] Address: [address] [place] [address] Result Comment: Surg ical Pathology Report Case: [id number] Authorizing Provider: Jian Alberto MD Collected: 07/28/2023 10:42 AM Ordering Location: Admitting Received: 07/28/2023 12:18 PM Pathologist: Rajat Corbin MD Specimen: Soft Tissue (Not otherwise specified), penile skin Performed By: #### 5 8410-2 #### [facility] CLIA [id number] [address] [place] [address] [place] CLINICAL HISTORY Normal [facility] Comment on above: Order Comment: Speci men Type: BLOOD SPECIMEN Ordering Facility: [facility] Address: [address] [place] [address] Result Comment: 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] Performed By: #### 5 8410-2 #### [facility] CLIA [id number] [address] [place] [address] [place] DIAGNOSIS COMMENT Normal [facility] Comment on above: Order Comment: Speci men Type: BLOOD SPECIMEN Ordering Facility: [facility] Address: [address] [place] [address] Result Comment: A PA S stain performed [...] been determined by the performing laboratory within [facility]???[facility] Pathology and Laboratory Medicine Department ([facility], [facility], [facility], [facility], [facility], [facility], or [facility]) in a manner consistent with CLIA requirements. One or more of these tests have not been cleared or approved by the FDA. [facility] is regulated under CLIA as qualified to perform high-complexity testing. These tests are used for clinical purposes. They should not be regarded as investigational or for research. Positive and negative controls stain appropriately. Performed By: #### 5 8410-2 #### [facility] CLIA [id number] [address] [place] [address] FINAL DIAGNOSIS Normal [facility] Comment on above: Order Comment: Speci men Type: BLOOD SPECIMEN Ordering Facility: [facility] Address: [address] [place] [address] Result Comment: Peni le skin, excision: - Benign skin with acute and chronic inflammation and rare fungal organisms morphologically consistent with Sydnee species. Performed By: #### 5 8410-2 #### [facility] CLIA [id number] [address] [place] [address] FINAL PERFORMING LAB Normal [facility] Comment on above: Order Comment: Speci men Type: BLOOD SPECIMEN Ordering Facility: [facility] Address: [address] [place] [address] Result Comment: Diag nostic interpretation performed at [facility], [address] [place] [address] CLIA# [id number] Interactive Art Director: Jose Power M.D. Performed By: #### 5 8410-2 #### [facility] CLIA [id number] [address] [place] [address] OF [facility] GROSS DESCRIPTION Normal [facility] Comment on above: Order Comment: Speci men Type: BLOOD SPECIMEN Ordering Facility: [facility] Address: [address] [place] [address] Result Comment: A. S oft Tissue (Not otherwise specified) Received fresh labeled penile skin is a rectangular excision of pink skin measuring 4.5 x 2.5 x 0.3 cm. The skin surface is smooth and glistening without lesion. The resection margin is cauterized and roughened. The cut surfaces are soft and glistening. Regional Psychiatric Director sections are submitted in cassette A1. OLIVA July 28, 2023 12:39 PM Gross examination performed at [facility], [address] [place], [place] [id number] CLIA# [id number] Performed By: #### 5 8410-2 #### [facility] CLIA [id number] [address] [place] [address] [place] CBC panel Auto (Bld)on 07-26 Erythrocyte distribution width (RBC) [Ratio] 16.1 % High 11.5-15.0 [facility] Comment on above: Order Comment: Speci men Type: BLOOD SPECIMEN Ordering Facility: [facility] Address: [address] [place] [address] Performed By: #### 5 8410-2 #### [facility] CLIA [id number] [address] [place] [address] [place] Hematocrit (Bld) [Volume fraction] 51.6 % High 39.0-51.0 [facility] Comment on above: Order Comment: Speci men Type: BLOOD SPECIMEN Ordering Facility: [facility] Address: [address] [place] [address] Performed By: #### 5 8410-2 #### [facility] CLIA [id number] [address] [place] [address] [place] Hemoglobin (Bld) [Mass/Vol] 16.6 g/dL Normal 13.0-17.0 [facility] Comment on above: Order Comment: Speci men Type: BLOOD SPECIMEN Ordering Facility: [facility] Address: [address] [place] [address] Performed By: #### 5 8410-2 #### [facility] CLIA [id number] [address] [place] [address] [place] MCH (RBC) [Entitic mass] 27.6 pg Normal 26.0-34.0 [facility] Comment on above: Order Comment: Speci men Type: BLOOD SPECIMEN Ordering Facility: [facility] Address: [address] [place] [address] Performed By: #### 5 8410-2 #### [facility] CLIA [id number] [address] [place] [address] [place] MCHC (RBC) [Mass/Vol] 32.2 g/dL Normal 30.5-36.0 [facility] Comment on above: Order Comment: Speci men Type: BLOOD SPECIMEN Ordering Facility: [facility] Address: [address] [place] [address] Performed By: #### 5 8410-2 #### [facility] CLIA [id number] [address] [place] [address] [place] MCV (RBC) [Entitic vol] 85.7 fL Normal 80.0-100.0 [facility] Comment on above: Order Comment: Speci men Type: BLOOD SPECIMEN Ordering Facility: [facility] Address: [address] [place] [address] Performed By: #### 5 8410-2 #### [facility] CLIA [id number] [address] [place] [address] [place] Nucleated RBC (Bld) [#/Vol] 10*3/uL Normal <0.01 [facility] Comment on above: Order Comment: Speci men Type: BLOOD SPECIMEN Ordering Facility: [facility] Address: [address] [place] [address] Performed By: #### 5 8410-2 #### [facility] CLIA [id number] [address] [place] [address] [place] Platelet mean volume (Bld) [Entitic vol] 10.3 fL Normal 9.0-12.7 [facility] Comment on above: Order Comment: Speci men Type: BLOOD SPECIMEN Ordering Facility: [facility] Address: [address] [place] [address] Performed By: #### 5 8410-2 #### [facility] CLIA [id number] [address] [place] [address] [place] Platelets (Bld) [#/Vol] 264 10*3/uL Normal 150-400 [facility] Comment on above: Order Comment: Speci men Type: BLOOD SPECIMEN Ordering Facility: [facility] Address: [address] [place] [address] Performed By: #### 5 8410-2 #### [facility] CLIA [id number] [address] [place] [address] [place] RBC (Bld) [#/Vol] 6.02 10*6/uL High 4.20-6.00 [facility] Comment on above: Order Comment: Speci men Type: BLOOD SPECIMEN Ordering Facility: [facility] Address: [address] [place] [address] Performed By: #### 5 8410-2 #### [facility] CLIA [id number] [address] [place] [address] [place] WBC (Bld) [#/Vol] 10.12 10*3/uL Normal 3.70-11.00 [facility] Comment on above: Order Comment: Speci men Type: BLOOD SPECIMEN Ordering Facility: [facility] Address: [address] [place] [address] Performed By: #### 5 8410-2 #### [facility] CLIA [id number] [address] [place] [address] [place] Comprehensive metabolic 2000 panelon 07-27-2023 Albumin [Mass/Vol] 4.3 g/dL Normal 3.9-4.9 [facility] Comment on above: Order Comment: Speci men Type: BLOOD SPECIMEN Ordering Facility: [facility] Address: [address] [place] [address] Performed By: #### 5 8410-2 #### [facility] CLIA [id number] [address] [place] [address] [place] ALP [Catalytic activity/Vol] 100 U/L Normal 38-113 [facility] Comment on above: Order Comment: Speci men Type: BLOOD SPECIMEN Ordering Facility: [facility] Address: [address] [place] [id number] Performed By: #### 5 8410-2 #### [facility] CLIA [id number] [address] [place] [id number] [place] ALT [Catalytic activity/Vol] 33 U/L Normal 10-54 [facility] Comment on above: Order Comment: Speci men Type: BLOOD SPECIMEN Ordering Facility: [facility] Address: [address] [place] [address] Performed By: #### 5 8410-2 #### [facility] CLIA [id number] [address] [place] [address] [place] Anion gap [Moles/Vol] 14 mmol/L Normal 9-18 [facility] Comment on above: Order Comment: Speci men Type: BLOOD SPECIMEN Ordering Facility: [facility] Address: [address] [place] [address] Performed By: #### 5 8410-2 #### [facility] CLIA [id number] [address] [place] [address] [place] AST [Catalytic activity/Vol] 26 U/L Normal 14-40 [facility] Comment on above: Order Comment: Speci men Type: BLOOD SPECIMEN Ordering Facility: [facility] Address: [address] [place] [id number] Performed By: #### 5 8410-2 #### [facility] CLIA [id number] [address] [place], [place] [address] [place] Bilirubin [Mass/Vol] 0.2 mg/dL Normal 0.2-1.3 [facility] Comment on above: Order Comment: Speci men Type: BLOOD SPECIMEN Ordering Facility: [facility] Address: [address] [place], [place] [address] Performed By: #### 5 8410-2 #### [facility] CLIA [id number] [address] [place] [address] [place] Calcium [Mass/Vol] 10.5 mg/dL High 8.5-10.2 [facility] Comment on above: Order Comment: Speci men Type: BLOOD SPECIMEN Ordering Facility: [facility] Address: [address] [place] [address] Performed By: #### 5 8410-2 #### [facility] CLIA [id number] [address] [place] [address] [place] Chloride [Moles/Vol] 101 mmol/L Normal 97-105 [facility] Comment on above: Order Comment: Speci men Type: BLOOD SPECIMEN Ordering Facility: [facility] Address: [address] [place] [address] Performed By: #### 5 8410-2 #### [facility] CLIA [id number] [address] [place] [address] [place] CO2 [Moles/Vol] 25 mmol/L Normal 22-30 [facility] Comment on above: Order Comment: Speci men Type: BLOOD SPECIMEN Ordering Facility: [facility] Address: [address] [place] [address] Performed By: #### 5 8410-2 #### [facility] CLIA [id number] [address] [place] [address] [place] Creatinine [Mass/Vol] 0.73 mg/dL Normal 0.73-1.22 [facility] Comment on above: Order Comment: Speci men Type: BLOOD SPECIMEN Ordering Facility: [facility] Address: [address] [place] [address] Performed By: #### 5 8410-2 #### [facility] CLIA [id number] [address] [place] [address] [place] Creatinine and Glomerular filtration rate.predicted panel (S/P/Bld) 104 mL/min/1.73m??? Normal >=60 [facility] Comment on above: Order Comment: Karina villarreal Type: BLOOD SPECIMEN Ordering Facility: [facility] Address: [address] [place] [address] Result Comment: Leticia mated Glomerular Filtration Rate [...] GFR. Performed By: #### 5 8410-2 #### [facility] CLIA [id number] [address] [place] [address] [place] Glucose [Mass/Vol] 82 mg/dL Normal 74-99 [facility] Comment on above: Order Comment: Karina villarreal Type: BLOOD SPECIMEN Ordering Facility: [facility] Address: [address] [place] [address] Result Comment: The [place] Diabetes Association (ADA) provides guidance for cutoff [...] Standards of Medical Care in Diabetes 2016, [place] Diabetes Association. Diabetes Care. 2016.39(Suppl 1). Performed By: #### 5 8410-2 #### [facility] CLIA [id number] [address] [place] [address] [place] Potassium [Moles/Vol] 4.1 mmol/L Normal 3.7-5.1 [facility] Comment on above: Order Comment: Karina villarreal Type: BLOOD SPECIMEN Ordering Facility: [facility] Address: [address] [place] [address] Performed By: #### 5 8410-2 #### [facility] CLIA [id number] [address] [place] [address] [place] Protein [Mass/Vol] 7.6 g/dL Normal 6.3-8.0 [facility] Comment on above: Order Comment: Speci men Type: BLOOD SPECIMEN Ordering Facility: [facility] Address: [address] [place] [address] Performed By: #### 5 8410-2 #### [facility] CLIA [id number] [address] [place] [address] [place] Sodium [Moles/Vol] 140 mmol/L Normal 136-144 [facility] Comment on above: Order Comment: Speci men Type: BLOOD SPECIMEN Ordering Facility: [facility] Address: [address] [place] [address] Performed By: #### 5 8410-2 #### [facility] CLIA [id number] [address] [place] [address] [place] Urea nitrogen [Mass/Vol] 17 mg/dL Normal 9-24 [facility] Comment on above: Order Comment: Speci men Type: BLOOD SPECIMEN Ordering Facility: [facility] Address: [address] [place] [address] Performed By: #### 5 8410-2 #### [facility] CLIA [id number] [address] [place] [address] [place] Erythrocyte distribution wid th Auto (RBC) [Ratio]on 07-27-2023 Erythrocyte distribution width (RBC) [Ratio] 16.1 % High 11.5-15.0 [facility] Glucose mean value [Mass/vol ume] in Blood Estimated from glycated hemoglobinon 07-27-2023 Average glucose Estimated from glycated hemoglobin (Bld) [Mass/Vol] 157 mg/dL [facility] Comment on above: eAG: (Estimated aver age glucose) is a calculated value from HgbA1c and is operations support representative of the average blood glucose level in the last 2-3 month period. HISTORY PHYSICALon HISTORY PHYSICAL HNO ID: [id number] Author: KEVIN GOLDSMITH APRN.METAPHYSICS TEACHER Service: ? Author Type: Nurse Practitioner Type: [...] artery disease involving coronary bypass graft of ramona heart without angina pectoris CAD, hx of [place] s/p CABG x 5 in Dec 2021. [...] cardiac events (< 1% chance of , [place], CHF, malignant ventricular arrhythmias or high grade [...] adult Body mass index is 39.29 kg/m? Olco Activity Status Index: METS: Climb a flight [...] have a large neck STOP-Bang Score: 5 [id number] Score: Age: <65 Sex: male CHF history: Yes Hypertension history: Yes Stroke/TIA/thromboemb olism history: No Vascular disease history: Yes Diabetes history: Yes [id number] Score: 4 ARISCAT Score: Age: 51-80 Preoperative [...] of labs. (more content not included)... Normal [facility] HbA1c (Bld)on 07-27-2023 Average glucose Estimated from glycated hemoglobin (Bld) [Mass/Vol] 157 mg/dL [facility] HbA1c (Bld) [Mass fraction] 7.1 % High 4.3 - 5.6 % [facility] Average glucose Estimated from glycated hemoglobin (Bld) [Mass/Vol] 157 mg/dL Normal [facility] Comment on above: Order Comment: Karina villarreal Type: BLOOD SPECIMEN Ordering Facility: [facility] Address: [address] [place] [address] Result Comment: eAG: (Estimated average glucose) is a calculated value from HgbA1c and is operations support representative of the average blood glucose level in the last 2-3 month period. Performed By: #### 5 8410-2 #### [facility] CLIA [id number] [address] [place] [address] [place] HbA1c (Bld) [Mass fraction] 7.1 % High 4.3-5.6 [facility] Comment on above: Order Comment: Karina villarreal Type: BLOOD SPECIMEN Ordering Facility: [facility] Address: [address] [place] [address] Result Comment: Amer ican Diabetes Association guidelines indicate that patients with HgbA1c in the range 5.7-6.4% are at increased risk for development of diabetes, and intervention by lifestyle modification may be beneficial. HgbA1c greater or equal to 6.5% is considered diagnostic of diabetes. Performed By: #### 5 8410-2 #### [facility] CLIA [id number] [address] [place] [id number] [place] Hematocrit Auto (Bld) [Volum e fraction]on 07-27-2023 Hematocrit (Bld) [Volume fraction] 51.6 % High 39.0-51.0 [facility] Hemoglobin [Mass/volume] in Bloodon 07-27-2023 Hemoglobin (Bld) [Mass/Vol] 16.6 g/dL 13.0-17.0 [facility] Laboratory - Chemistry and C hemistry - challengeon 07-27-2023 Albumin [Mass/Vol] 4.3 g/dL 3.9-4.9 [facility] ALP [Catalytic activity/Vol] 100 U/L 38-113 [facility] ALT [Catalytic activity/Vol] 33 U/L 10-54 [facility] AST [Catalytic activity/Vol] 26 U/L 14-40 [facility] Bilirubin [Mass/Vol] 0.2 mg/dL 0.2-1.3 [facility] Calcium [Mass/Vol] 10.5 mg/dL High 8.5-10.2 [facility] Chloride [Moles/Vol] 101 mmol/L 97-105 [facility] CO2 [Moles/Vol] 25 mmol/L 22-30 [facility] Creatinine [Mass/Vol] 0.73 mg/dL 0.73-1.22 [facility] Glucose [Mass/Vol] 82 mg/dL 74-99 [facility] Comment on above: The [place] Diabete s Association (ADA) provides guidance for [...] Standards of Medical Care in Diabetes 2016, [place] Diabetes Association. Diabetes Care. 2016.39(Suppl 1). Potassium [Moles/Vol] 4.1 mmol/L 3.7-5.1 [facility] Sodium [Moles/Vol] 140 mmol/L 136-144 [facility] Urea nitrogen [Mass/Vol] 17 mg/dL 9 [facility] Laboratory - Hematology and Cell countson 07-27-2023 HbA1c (Bld) [Mass fraction] 7.1 % High 4.3-5.6 [facility] Comment on above: [place] Diabetes As sociation guidelines indicate that patients [...] RBC Auto (Bld) [#/Vol] 10.12 k/uL 3.70-11.00 [facility] MCH Auto (RBC) [Entitic mass ]on 07-27-2023 MCH (RBC) [Entitic mass] 27.6 pg 26.0-34.0 [facility] MCHC Auto (RBC) [Mass/Vol]on 07-27-2023 MCHC (RBC) [Mass/Vol] 32.2 g/dL 30.5-36.0 [facility] MCV Auto (RBC) [Entitic vol] on 07-27-2023 MCV (RBC) [Entitic vol] 85.7 fL 80.0-100.0 [facility] No Panel Informationon 07-26 Estimated GFR (CKD-EPI) 104 mL/min/1.73m??? >=6 0 [facility] Comment on above: Estimated Glomerular Filtration Rate [...] 07-27-2023 Nucleated RBC (Bld) [#/Vol] 10*3/uL <0.01 [facility] Platelet mean volume Auto (B ld) [Entitic vol]on 07-27-2023 Platelet mean volume (Bld) [Entitic vol] 10.3 fL 9.0-12.7 [facility] [facility] Platelets Auto (Bld) [#/Vol] on 07-27-2023 Platelets (Bld) [#/Vol] 264 10*3/uL 150-400 [facility] Protein [Mass/volume] in Ser um or Plasmaon 07-27-2023 Protein [Mass/Vol] 7.6 g/dL 6.3-8.0 [facility] RBC Auto (Bld) [#/Vol]on RBC (Bld) [#/Vol] 6.02 10*6/uL High 4.20-6.00 [facility] Serum or plasma anion gap de terminationon 07-27-2023 Anion gap [Moles/Vol] 14 mmol/L 9-18 [facility] CNPNon 07-18-2023 CNPN Telephone (RICKEY) CADEN WILLS ([id number]) 1960 M Date Time Provider Department 07/18/23 [...] round with a 6:00 arrival time at [facility]. States that he will be going home after pre ops on 07/26 and coming back the following day. No other questions or concerns expressed. 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 - omega 7-djm-lji-fish oil (FISH OIL) 100-160-1,000 mg cap Take 1,000 mg by mouth. - bumetanide (BUMEX ORAL) Take by mouth. 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] 05/03/2023 Scarring of penis [N48.6] 05/03/2023 Erectile dysfunction associated with type 2 beverley*05/03/2023 Encounter Status:Closed by NOY MARY on 07/18/23 Normal [facility] HbA1c HPLC (Bld) [Mass fract ion]on 06-21-2023 HbA1c (Bld) [Mass fraction] 7.4 % [facility] No Panel Informationon 06-20 Bedside Glucose 133 [facility] CNPNon 06-20-2023 CNPN Telephone (URON) JOHANNCADEN A ([id number]) 1960 M Date Time Provider Department 06/20/23 NOY MARY During your visit today, we recorded the following information about you: Noy Mary, RN 06/20/2023 12:26 PM Signed Called Caden Wills and LVM to confirm surgery date of 07/[address] Alberto. Discussed pre op testing on 07/26 in [place]. 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 - omega 1-alv-uyv-fish oil (FISH OIL) 100-160-1,000 mg cap Take 1,000 mg by mouth. - bumetanide (BUMEX ORAL) Take by mouth. 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 Heart and Vascular [place] Rob Borden Department of Cardiovascular Medicine SECTION [...] furniture (8.00 METs). 12/06/2022 Robyn Miller Cardiology- [facility] HPI Pleasant 62-year-old man with prior history of coronary disease status post percutaneous intervention to chronically occluded LAD in 2007. Additional history includes diabetes, hypertension and hyperlipidemia. He was admitted in December 2021 to [facility] with chest pain and diagnosed with [...] 1 tablet by mouth every afternoon. omega 9-wrx-xmf-fish oil (FISH OIL) 100-160-1,000 mg cap Take [...] Last 3 (more content not included)... Normal [facility] Cholesterol in LDL Calc [Mas s/Vol]on 06-19-2023 Cholesterol in LDL [Mass/Vol] 66.0 mg/dL [facility] Comment on above: <100 mg/dl [id number] 0-129 mg/dl NEAR OR ABOVE [id number] mg/dl BORDERLINE [id number] mg/dl HIGH>190 mg/dl VERY HIGH Cholesterol in VLDL Calc [Ma ss/Vol]on 06-19-2023 Cholesterol in VLDL [Mass/Vol] 43.0 mg/dL [facility] ECG COMPLETEon 06-19-2023 Atrial Rate 68 BPM [facility] Calculated P [place] 53 degrees [facility] Calculated R [place] 20 degrees [facility] Calculated T [place] 86 degrees [facility] P-R Interval 188 ms [facility] QRS Duration 88 ms [facility] QT Interval 414 ms [facility] QTC Calculation (Bazett) 440 ms [facility] Ventricular Rate 68 BPM [facility] ECG COMPLETE Ventricular Rate : 6 8 BPM Atrial Rate : 68 BPM P-R Interval : 188 ms QRS Duration : 88 ms Q-T Interval : 414 ms QTC Calculation(Bazett) : 440 ms Calculated P [place] : 53 degrees Calculated R [place] : 20 degrees Calculated T [place] : 86 degrees NORMAL SINUS RHYTHM LOW VOLTAGE QRS NONSPECIFIC ST ABNORMALITY ABNORMAL ECG Confirmed by LIGIA COLMENARES M.D. ([id number]), supervising film or videotape editor Lainey Agee ([id number]) on 06/19/2023 2:11:39 PM NAME : CADEN WILLS PID : [id number] : 1960 Gender : Male Race : Unknown ORD : [id number] Procedure Date : Jun 19 2023 13:03:26 Edit Date : Jun 19 2023 14:11:40 Diagnosis: NORMAL SINUS RHYTHM LOW VOLTAGE QRS NONSPECIFIC ST ABNORMALITY ABNORMAL ECG Confirmed by LIGIA COLMENARES M.D. ([id number]), supervising film or videotape editor Lainey Agee ([id number]) on 06/19/2023 2:11:39 PM Test Reason : Location : 105 : [facility] Overread By : LIGIA COLMENARES M.D. Edited By : Lainey Agee Referred By : LIGIA COLMENARES Acquired by : Arnaldo waters [facility] Estimated glomerular filtrat ion rate (GFR) non- Americanon 06-19-2023 GFR/1.73 sq M.predicted among non-blacks MDRD (S/P/Bld) [Vol rate/Area] mL/min/{1.73_m2} >=60 [facility] Laboratory - Chemistry and C hemistry - challengeon 06-19-2023 Calcium [Mass/Vol] 8.7 mg/dL 8.5-10.1 [facility] Chloride [Moles/Vol] 103 mmol/L 98-107 [facility] Cholesterol [Mass/Vol] 141 mg/dL <=200 [facility] Cholesterol in HDL [Mass/Vol] 32 mg/dL 40-60 [facility] Comment on above: > or =60 mg/dl - LOW CARDIOVASCULAR RISK<40 mg/dl - HIGH CARDIOVASCULAR RISK CO2 [Moles/Vol] 29.5 mmol/L 21.0-32.0 [facility] Creatinine [Mass/Vol] 0.86 mg/dL 0.70-1.30 [facility] GFR/1.73 sq M.predicted MDRD (S/P/Bld) [Vol rate/Area] mL/min/{1.73_m2} >=60 [facility] Glucose [Mass/Vol] 143 mg/dL 74-106 [facility] Potassium [Moles/Vol] 4.2 mmol/L 3.5-5.1 [facility] Sodium [Moles/Vol] 141 mmol/L 136-145 [facility] Triglyceride [Mass/Vol] 215 mg/dL <=150 F [facility] Urea nitrogen [Mass/Vol] 15.0 mg/dL 7.0-18.0 [facility] Urea nitrogen/Creatinine [Mass ratio] 17.4 mg/mg [facility] Office Visiton 06-19-2023 Follow-up visit [id number] Caden Wills 1960 M Date Provider Department Center 06/19/2023 SIMBA REYEZ BOB [facility] Family History Problem Relation Age of Onset Coronary artery disease Father Family Status - Relation Status Age at Father Level of Service:90034 [place] OFFICE/OUTPATIENT ESTABLISHED MOD MDM 30 MIN Normal [facility] Serum or plasma anion gap de terminationon 06-19-2023 Anion gap [Moles/Vol] 12.7 mmol/L [facility] Serum or plasma total choles terol/high density lipoprotein (HDL) cholesterol mass evelyn 06-19-2023 Cholesterol.total/Radha sterol in HDL [Mass ratio] 4.4 {ratio} [facility] Comment on above: 3.3 - 4.4 LOW RISK4. 4 - 7.1 AVERAGE RISK7.1 - 11.0 MODERATE RISK>11.0 HIGH RISK Brian 06-14-2023 AIMEE Telephone (URON) CADEN WILLS ([id number]) 1960 M Date Time Provider Department 06/14/23 NOY MARY During your visit today, we recorded the following information about you: Noy Mary RN 06/14/2023 9:45 AM Signed Called Caden Wills and LVM to confirm surgery date of 07/[address] Alberto. Discussed pre op testing on 07/26 in [place], or he could make two trips. Asked him to confirm Asked patient to confirm receipt, and voice any questions or concerns. Number provided. 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 - omega 9-alb-map-fish oil (FISH OIL) 100-160-1,000 mg cap Take 1,000 mg by mouth. - bumetanide (BUMEX ORAL) Take by mouth. 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 - omega 7-ssj-ive-fish oil (FISH OIL) 100-160-1,000 mg cap Take 1,000 mg by mouth. - bumetanide (BUMEX ORAL) Take by mouth. 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 00TIFF Arnaldo [facility] CNOVon 05-03-2023 CNOV Office Visit (UROLMN ) CADEN WILLS ([id number]) 1960 M Date Time Provider Department 05/03/23 2:00 PM JIAN ALBERTO UROCARMEN During your visit today, we recorded the following information about you: Pulse Blood pressure Weight Height 67/minute 137/78 123.4 kg 1.778 m Jian Alberto MD 05/03/2023 2:28 PM Signed [facility] NEW PATIENT HISTORY AND PHYSICAL EXAM PATIENT INFO: Caden Wills 63 year old REFERRING M.D.: Antonia Bush MD [address] [place] [address] This consult was requested by Dr. Bush for an opinion regarding buried penis and erectile dysfunction, and my final recommendations will be communicated to the requesting health care provider by way of the shared medical record for internal providers or letter via the [employer] for external providers. 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 , interested in future sexual life. [...] noted ASSESSMENT/PLAN: (more content not included)... Normal [facility] URINALYSIS, REFLEX MICROSCOP ICon 05-03-2023 Bilirubin Ql (U) Negative Negative [facility] Clarity (Unsp spec) Clear Clear [facility] Color (U) Light Yellow Yellow [facility] Glucose Test strip (U) [Mass/Vol] 4+ Abnormal Trace, Negative [facility] Hemoglobin Ql (U) Negative Negative, Trace [facility] Ketones Ql (U) Negative Negative, Trace [facility] Leukocyte esterase Test strip Ql (U) 25 Quintin/uL Negative, 25 Quintin/uL [facility] Nitrite Ql (U) Negative Negative [facility] pH (U) 5.5 [pH] 5.0 - 8.0 [facility] Protein (U) [Mass/Vol] Negative Trace , Negative [facility] Specific gravity (U) [Rel density] 1.032 High 1.005 - 1.030 [facility] Urobilinogen Ql (U) Negative Negative [facility] Bil[facility] Ql (U) Negative Normal [facility] Comment on above: Order Comment: Speci men Type: BLOOD SPECIMEN Ordering Facility: [facility] Address: [address] [place] [address] Performed By: #### 5 8410-2 #### [facility] CLIA [id number] [address] [place] [address] [place] Clarity (Unsp spec) Clear Normal Clear [facility] Comment on above: Order Comment: Speci men Type: BLOOD SPECIMEN Ordering Facility: [facility] Address: [address] [place] [address] Performed By: #### 5 8410-2 #### [facility] CLIA [id number] [address] [place] [place] [address] [place] Color (U) Light Yellow Normal Yellow [facility] Comment on above: Order Comment: Speci men Type: BLOOD SPECIMEN Ordering Facility: [facility] Address: [address] [place] [address] Performed By: #### 5 8410-2 #### [facility] CLIA [id number] [address] [place] [address] [place] Glucose Test strip (U) [Mass/Vol] 4+ Abnormal Trace, Negative [facility] Comment on above: Order Comment: Speci men Type: BLOOD SPECIMEN Ordering Facility: [facility] Address: [address] [place] [address] Performed By: #### 5 8410-2 #### [facility] CLIA [id number] [facility] [place] [address] [place] Hemoglobin Ql (U) Negative Normal Negative, Trace [facility] Comment on above: Order Comment: Speci men Type: BLOOD SPECIMEN Ordering Facility: [facility] Address: [address] [place] [address] Performed By: #### 5 8410-2 #### [facility] CLIA [id number] [address] [place] [address] [place] Ketones Ql (U) Negative Normal Negative, Trace [facility] Comment on above: Order Comment: Speci men Type: BLOOD SPECIMEN Ordering Facility: [facility] Address: [address] [place] [address] Performed By: #### 5 8410-2 #### [facility] CLIA [id number] [address] [place] [address] [place] Leukocyte esterase Test strip Ql (U) 25 Quintin/uL Normal Negative, 25 Quintin/uL [facility] Comment on above: Order Comment: Speci men Type: BLOOD SPECIMEN Ordering Facility: [facility] Address: [address] [place] [address] Performed By: #### 5 8410-2 #### [facility] CLIA [id number] [address] [place] [address] [place] Nitrite Ql (U) Negative Normal Negative [facility] Comment on above: Order Comment: Speci men Type: BLOOD SPECIMEN Ordering Facility: [facility] Address: [address] [place] [address] Performed By: #### 5 8410-2 #### [facility] CLIA [id number] [address] [place] [address] [place] pH (U) 5.5 [pH] Normal 5.0-8.0 [facility] Comment on above: Order Comment: Speci men Type: BLOOD SPECIMEN Ordering Facility: [facility] Address: [address] [place] [address] Performed By: #### 5 8410-2 #### [facility] CLIA [id number] [address] [place] [address] [place] Protein (U) [Mass/Vol] Negative Normal Trace , Negative [facility] Comment on above: Order Comment: Speci men Type: BLOOD SPECIMEN Ordering Facility: [facility] Address: [address] [place] [address] Performed By: #### 5 8410-2 #### [facility] CLIA [id number] [address] [place] [address] [place] Specific gravity (U) [Rel density] 1.032 High 1.005-1.030 [facility] Comment on above: Order Comment: Speci men Type: BLOOD SPECIMEN Ordering Facility: [facility] Address: [address] [place] [address] Performed By: #### 5 8410-2 #### [facility] CLIA [id number] [address] [place] [address] [place] Urobilinogen Ql (U) Negative Normal Negative [facility] Comment on above: Order Comment: Speci men Type: BLOOD SPECIMEN Ordering Facility: [facility] Address: [address] [place] [address] Performed By: #### 5 8410-2 #### [facility] CLIA [id number] [address] [place] [address] [place] Physician Referralon 023 Physician Referral [id number] .00TIFF Normal [facility] Physician Referralon 023 Physician Referral [id number] .00TIFF Normal [facility] Physician Referralon 023 Physician Referral [id number] .00TIFF [facility] Screenson 03-23-2023 Screens [id number]#1 .00TIFF [facility] Ambulatory Visit Summaryon 1 05-23-2022 Ambulatory Visit Summary CADEN WILLS :1960 Visit Date:03/22/2023 Ambulatory Visit Instructions Your Diagnosis ED (erectile dysfunction) Phimosis Hidden penis Balanoposthitis Anticoagulated Tests Performed Urnls Dip Stick Auto w/o Microscopy POC 71070 Your Care Team Attending Physician - Antonia [...] BARR, Antonia Sharma, ALICIA When: Where: [address] [address]- Someone Will Contact You Regarding These Appointments [facility] [place]ulatory Referral, Urology, Dr. Alberto, 03/22/23 11:49:00 EST, Phimosis [facility] Patient Educationon 03-22-20 Patient Education Urology [...] these instructions at home: Medicines ? Take oggj-cos-umdsxdu and prescription medicines only as told by [...] include cig (more content not included)... Normal [facility] Urology Office/Clinic Noteon 03-22-2023 Urology Office/Clinic [...] seen by Dr. Jian Alberto at the [facility] for his opinion. He can utilize qzpd-smd-aftdlur Monistat cream/triple antibiotic on a as needed [...] with voice recognition artificial intelligence software, specifically Greats, emotion.me and o (more content not included)... Normal [facility] Comment on above: Result Comment: Elec tronically Signed By: Antonia BUSH MD\.br\Date and Time Signed: 03/22/23 12:07 EST\.br\Electronically Co-Signed By: Maria M Campos\.br\Date and Time Co-Signed: 03/22/23 11:53 EST A1C HEMOGLOBINon 03-08-2023 HbA1c (Bld) [Mass fraction] 7.2 % Event[facility] Other Glucose - FINGER STICKon Glucose [Mass/Vol] 187 mg/dL [facility] Other HbA1c (Bld) [Mass fraction]o n 03-08-2023 A1C HEMOGLOBIN CAD Crowd Other Orders Onlyon 02-08-2023 Orders Only [id number] Caden Wills 1960 Date Provider Department Center 02/08/2023 ROBYN CASTILLO [facility] Family History Problem Relation Age of Onset Coronary artery disease Father Family Status - Relation Status Age at Father Normal [facility] A1C HEMOGLOBINon 11-24-2022 HbA1c (Bld) [Mass fraction] 6.6 % Event[facility] Other Glucose - FINGER STICKon Glucose [Mass/Vol] 102 mg/dL Event[facility] Other HbA1c (Bld) [Mass fraction]o n 11-24-2022 A1C HEMOGLOBIN CAD Crowd Other A1C HEMOGLOBINon 08-22-2022 HbA1c (Bld) [Mass fraction] 6.5 % Eventable Other Glucose - FINGER STICKon Glucose [Mass/Vol] 159 mg/dL Event[facility] Other HbA1c (Bld) [Mass fraction]o n 08-22-2022 A1C HEMOGLOBIN CAD Crowd Other A1C HEMOGLOBINon 05-19-2022 HbA1c (Bld) [Mass fraction] 6.9 % Event[facility] Other Glucose - FINGER STICKon Glucose [Mass/Vol] 206 mg/dL Event[facility] Other HbA1c (Bld) [Mass fraction]o n 05-19-2022 A1C HEMOGLOBIN CAD Crowd Other UA RANDOMon 04-05-2022 Bilirubin Ql (U) Negative Normal NEGATIVE [facility] Comment on above: Performed By: #### U A #### [facility] [address] [place] [address] Dr. Jose Rojas Clarity (U) CLOUDY Abnormal CLEAR [facility] Comment on above: Performed By: #### U A #### [facility] [address] [place] [address] Dr. Jose Rojas Color (U) LT. YELLOW Normal YELLOW [facility] Comment on above: Performed By: #### U A #### [facility] [address] [place] [address] Dr. Jose Rojas Glucose Ql (U) >1000 Abnormal NEGATIVE [facility] Comment on above: Performed By: #### U A #### [facility] [address] [place] [address] Dr. Jose Rojas Hemoglobin Ql (U) MODERATE Abnormal NEGATIVE [facility] Comment on above: Performed By: #### U A #### [facility] [address] [place] [address] Dr. Jose Rojas Ketones Ql (U) Negative Normal NEGATIVE [facility] Comment on above: Performed By: #### U A #### [facility] [address] [place] [address] Dr. Jose Rojas LEUKOCYTES MODERATE Abnormal NEGATIVE [facility] Comment on above: Performed By: #### U A #### [facility] [address] [address] [address] Jose Rojas Nitrite Ql (U) Negative Normal NEGATIVE [facility] Comment on above: Performed By: #### U A #### [facility] [address] [place] [address] Dr. Jose Rojas pH (U) 5.5 [pH] Normal 5-9 [facility] Comment on above: Performed By: #### U A #### [facility] [address] [place] [address] Dr. Jose Rojas SPEC GRAVITY <=1.005 Abnormal 1.005-<=1.0 25 [facility] Comment on above: Performed By: #### U A #### [facility] [address] [place] [address] Dr. Jose Rojas UA PROTEIN Negative Normal NEGATIVE/ TRACE [facility] Comment on above: Performed By: #### U A #### [facility] [address] [place] [address] Dr. Jose Rojas Urobilinogen Qn (U) 0.2 {Ritu'U}/dL Normal 0.2 - 1. 0 [facility] Comment on above: Performed By: #### U A #### [facility] [address] [place] [address] Dr. Jose Rojas ECHOCARDIO M/2D COMPLETEon 1 05-31-2021 ECHOCARDIO M/2D COMPLETE Patient: CADEN WILLS Exam Date: 03/30/2022 : 1960 Gender:M Ordering : DR SIMBA KASPER M.D. Admission #: [id number] Family : DR FAHAD ACEVES D.O. Order #: [id number] CLICK HERE TO VIEW EXAM ECHOCARDIOGRAM REPORT [...] Muniz M.D. on 03/31/2022 at 14:44 Normal [facility] BNPon 02-16-2022 Natriuretic peptide B (Bld) [Mass/Vol] 335.0 pg/mL Normal <=900.0 [facility] Comment on above: Performed By: #### B ELDERLY SITTER #### [facility] [address] [place] [address] Dr. Jose Rojas CBC AUTO DIFFon 02-16-2022 BASO # 0.1 103/ul Normal 0.0-0.1 [facility] Comment on above: Performed By: #### D ATCBC #### [facility] [address] [place] [address] Dr. Jose Rojas Basophils/100 WBC (Bld) 0.7 % Normal 0.2-2.0 [facility] Comment on above: Performed By: #### D ATCBC #### [facility] [address] [place] [address] Dr. Jose Rojas EO # 0.4 103/ul Normal 0.0-0.7 [facility] Comment on above: Performed By: #### D ATCBC #### [facility] [address] [place] [address] Dr. Jose Rojas Eosinophils/100 WBC (Bld) 3.9 % Normal 0.9-7.0 [facility] Comment on above: Performed By: #### D ATCBC #### [facility] [address] [address] [address] Jose Rojas Erythrocyte distribution width (RBC) [Ratio] 16.5 % Critically high 11.0-15.0 [facility] Comment on above: Performed By: #### D ATCBC #### [facility] [address] [place] [address] Dr. Jose Rojas Hematocrit (Bld) [Volume fraction] 44.9 % Normal 42.0-54.0 [facility] Comment on above: Performed By: #### D ATCBC #### [facility] [address] [place] [address] Dr. Jose Rojas Hemoglobin (Bld) [Mass/Vol] 14.3 g/dL Normal 14.0-18.0 [facility] Comment on above: Performed By: #### D ATCBC #### [facility] [address] [place] [address] Dr. Jose Rojas IG # 0.33 10e3/ul Critically high 0.00-0.03 [facility] Comment on above: Performed By: #### D ATCBC #### [facility] [address] [place] [address] Dr. Jose Roajs IG % 3.5 % Critically high 0.0-0.5 [facility] Comment on above: Performed By: #### D ATCBC #### [facility] [address] [place] [address] Dr. Jose Rojas LYMPH # 1.9 103/ul Normal 1.2-3.[address] [facility] Comment on above: Performed By: #### D ATCBC #### [facility] [address] [place] [address] Dr. Jose Rojas Lymphocytes/100 WBC (Bld) 19.8 % Critically low 20.5-60.0 [facility] Comment on above: Performed By: #### D ATCBC #### [facility] [address] [place] [address] Dr. Jose Rojas MCH (RBC) [Entitic mass] 27.1 pg Normal 25.9-34.0 [facility] Comment on above: Performed By: #### D ATCBC #### [facility] [address] [address] [address] Jose Rojas MCHC (RBC) [Mass/Vol] 31.8 g/dL Normal 29.9-35.2 [facility] Comment on above: Performed By: #### D ATCBC #### [facility] [address] [address] [address] Jose Rojas MCV (RBC) [Entitic vol] 85.0 fL Normal 80.0-94.0 [facility] Comment on above: Performed By: #### D ATCBC #### [facility] [address] [address] [address] Jose Rojas MONO # 0.9 103/ul Critically high 0.3-0.8 [facility] Comment on above: Performed By: #### D ATCBC #### [facility] [address] [address] [address] Jose Rojas Monocytes/100 WBC (Bld) 9.1 % Normal 1.7-12.0 [facility] Comment on above: Performed By: #### D ATCBC #### [facility] [address] [address] [address] Jose Rojas NEUT # 6.0 103/ul Normal 1.4-6.5 [facility] Comment on above: Performed By: #### D ATCBC #### [facility] [address] [address] [address] Jose Rojas Neutrophils/100 WBC (Bld) 63.0 % Normal 43.0-75.0 [facility] Comment on above: Performed By: #### D ATCBC #### [facility] [address] [address] [address] Jose Rojas Platelet mean volume (Bld) [Entitic vol] 9.2 fL Critically low 9.5-13.5 [facility] Comment on above: Performed By: #### D ATCBC #### [facility] [address] [address] [address] Jose Rojas PLT 485 103/ul Critically high 150-450 [facility] Comment on above: Performed By: #### D ATCBC #### [facility] [address] [address] [address] Jose Rojas RBC 5.28 106/ul Normal 4.70-6.10 [facility] Comment on above: Performed By: #### D ATCBC #### [facility] [address] [address] [address] Jose Rojas WBC 9.6 103/ul Normal 4.0-11.0 [facility] Comment on above: Performed By: #### D ATCBC #### [facility] [address] [address] [address] Jose Rojas EMERSON- BMP WITH LIPIDon 2021 Anion gap [Moles/Vol] 14.3 mmol/L Normal [facility] Comment on above: Performed By: #### D ATBMP #### [facility] [address] [address] [address] Jose Rojas Calcium [Mass/Vol] 9.9 mg/dL Normal 8.5-10.1 [facility] Comment on above: Performed By: #### D ATBMP #### [facility] [address] [place] [address] Dr. Jose Rojas Chloride [Moles/Vol] 101 mmol/L Normal 98-107 [facility] Comment on above: Performed By: #### D ATBMP #### [facility] [address] [address] [address] Jose Rojas Cholesterol [Mass/Vol] 110 mg/dL Normal <=200 [facility] Comment on above: Performed By: #### D ATBMP #### [facility] [address] [address] [address] Jose Rojas Cholesterol in HDL [Mass/Vol] 28 mg/dL Critically low 40-60 [facility] Comment on above: Performed By: #### D ATBMP #### [facility] [address] [place] [address] Dr. Jose Rojas Cholesterol in LDL [Mass/Vol] 21.2 mg/dL Normal [facility] Comment on above: Performed By: #### D ATBMP #### [facility] [address] [address] [address] Jose Rojas CO2 [Moles/Vol] 28.2 mmol/L Normal 21.0-32.0 [facility] Comment on above: Performed By: #### D ATBMP #### [facility] [address] [address] [address] Jose Rojas Creatinine [Mass/Vol] 1.14 mg/dL Normal 0.70-1.30 [facility] Comment on above: Performed By: #### D ATBMP #### [facility] [address] [address] [address] Jose Rojas EGFR-AF UGANDAN >60 Normal >=60 [facility] Comment on above: Performed By: #### D ATBMP #### [facility] [address] [address] [address] Jose Rojas EGFR-NON AF UGANDAN >60 Normal >=60 [facility] Comment on above: Performed By: #### D ATBMP #### [facility] [address] [address] [address] Jose Rojas Glucose [Mass/Vol] 254 mg/dL Critically high 74-106 [facility] Comment on above: Performed By: #### D ATBMP #### [facility] [address] [address] [address] Jose Rojas HDL NORMAL > or = 60 mg/dl - LO W CARDIOVASCULAR RISK <40 mg/dl - HIGH CARDIOVASCULAR RISK Normal [facility] Comment on above: Performed By: #### D ATBMP #### [facility] [address] [address] [address] Jose Rojas LDL CALC NORMAL SEE BELOW Normal [facility] Comment on above: Result Comment: <100 mg/dl OPTIMAL 100 - 129 mg/dl NEAR OR ABOVE OPTIMAL 130 - 159 mg/dl BORDERLINE HIGH 160 - 189 mg/dl HIGH >190 mg/dl VERY HIGH Performed By: #### D ATBMP #### [facility] [address] [address] [address] Jose Rojas Potassium [Moles/Vol] 4.5 mmol/L Normal 3.5-5.1 [facility] Comment on above: Performed By: #### D ATBMP #### [facility] [address] [address] [address] Jose Rojas Sodium [Moles/Vol] 139 mmol/L Normal 136-145 [facility] Comment on above: Performed By: #### D ATBMP #### [facility] [address] [address] [address] Jose Rojas Triglyceride [Mass/Vol] 304 mg/dL Critically high <=150 [facility] Comment on above: Performed By: #### D ATBMP #### [facility] [address] [address] [address] Jose Rojas Urea nitrogen [Mass/Vol] 21.0 mg/dL Critically high 7.0-18.0 [facility] Comment on above: Performed By: #### D ATBMP #### [facility] [address] [place] [address] Dr. Jose Rojas Urea nitrogen/Creatinine [Mass ratio] 18.4 mg/mg Normal [facility] Comment on above: Performed By: #### D ATBMP #### [facility] [address] [place] [address] Dr. Jose Rojas VLDL CALC 60.8 mg/dL Normal [facility] Comment on above: Performed By: #### D ATBMP #### [facility] [address] [address] [address] Jose Rojas Albumin [Mass/volume] in Ser um or PlasmaOrdered By: Yamilex Foster on 02-11-2022 Albumin [Mass/Vol] 3.5 g/dL 3.2-5.5 [facility] Cholesterol [Mass/volume] in Serum or PlasmaOrdered By: Yamilex Foster on 02-11-2022 Cholesterol [Mass/Vol] 96 mg/dL 140-200 [facility] Comment on above: Chol less than 200 m g/dl low riskChol 201-239 mg/dl borderline riskChol 240 mg/dl and greater high risk Cholesterol in LDL Calc [Mas s/Vol]Ordered By: Yamilex Foster on 02-11-2022 Cholesterol in LDL [Mass/Vol] 34 mg/dL 0-100 [facility] Comment on above: LDL ATP III CLASSIFI CATIONLDL less than 100 mg/dL OptimalLDL 100-129 mg/dL Near or above optimalLDL 130-159 mg/dL Borderline highLDL 160-189 mg/dL HighLDL greater than 189 mg/dL Very high Cholesterol in VLDL Calc [Ma ss/Vol]Ordered By: Yamilex Foster on 02-11-2022 Cholesterol in VLDL [Mass/Vol] 28 mg/dL [facility] Creatinine [Mass/volume] in UrineOrdered By: Yamilex Foster on 02-11-2022 Creatinine (U) [Mass/Vol] 49.7 mg/dL [facility] Comment on above: No reference range e stablished Creatinine and Glomerular fi ltration rate.predicted panel (S/P/Bld)Ordered By: Yamilex Foster on 02-11-2022 Creatinine [Mass/Vol] 0.85 mg/dL 0.64-1.27 [facility] Estimated glomerular filtrat ion rate (GFR) non- AmericanOrdered By: Yamilex Foster on 02-11-2022 GFR/1.73 sq M.predicted among non-blacks MDRD (S/P/Bld) [Vol rate/Area] > 60 mL/Min [facility] Globulin Calc (S) [Mass/Vol] Ordered By: Yamilex Foster on 02-11-2022 Globulin (S) [Mass/Vol] 3.2 g/dL F [facility] - Chemistry and C hemistry - challengeOrdered By: Yamilex Foster on 02-11-2022 Cobalamin (Vitamin B12) [Mass/Vol] 227 pg/mL 180-914 [facility] No Panel InformationOrdered By: Yamilex Foster on 02-11-2022 Estimated GFR () > 60 mL/Min [facility] Comment on above: GFR estimated refere nce range: According to KDOQI guidelines, <60 ml/min/1.73m2 is sufficient to diagnose a patient with chronic kidney disease. Pharmacy Creatinine Clearance (Chem N/A [facility] Protein [Mass/volume] in Ser um or PlasmaOrdered By: Yamilex Foster on 02-11-2022 Protein [Mass/Vol] 6.7 g/dL 6.1-7.9 [facility] Serum or plasma alanine mccoy otransferase measurement without P-5'-P (enzymatic activiOrdered By: Yamilex Foster on 02-11-2022 ALT No additional P-5'-P [Catalytic activity/Vol] 23 U/L [facility] Serum or plasma albumin/glob ulin mass ratioOrdered By: Yamilex Foster on 02-11-2022 Albumin/Globulin [Mass ratio] 1.1 {ratio} [facility] Serum or plasma alkaline elle sphatase measurement (enzymatic activity/volume)Ordered By: Yamilex Foster on 02-11-2022 ALP [Catalytic activity/Vol] 82 U/L 32-92 [facility] Serum or plasma anion gap de terminationOrdered By: Yamilex Foster on 02-11-2022 Anion gap [Moles/Vol] 15.4 mmol/L 6.0-15.0 [facility] Serum or plasma aspartate am inotransferase measurement (enzymatic activity/volume)Ordered By: Yamilex Foster on 02-11-2022 AST [Catalytic activity/Vol] 22 U/L [facility] Serum or plasma calcium destiny urement (mass/volume)Ordered By: Yamilex Foster on 02-11-2022 Calcium [Mass/Vol] 9.7 mg/dL 8.2-10.2 [facility] Serum or plasma chloride donato surement (moles/volume)Ordered By: Yamilex Foster on 02-11-2022 Chloride [Moles/Vol] 101 mmol/L 95-114 [facility] Serum or plasma glucose destiny urement (mass/volume)Ordered By: Yamilex Foster on 02-11-2022 Glucose [Mass/Vol] 85 mg/dL 70-100 [facility] Comment on above: ADA recommended refe rence rangeRandom Glucose Reference Range is dependent on time and content of last meal. Glucose of more than 200 mg/dL in a nonstressed, ambulatory subject supports the diagnosis of Diabetes Mellitus. Serum or plasma high density lipoprotein (HDL) cholesterol measurementOrdered By: Yamilex Foster on 02-11-2022 Cholesterol in HDL [Mass/Vol] 34 mg/dL [facility] Comment on above: HDL CHOL ATP-III CLA SSIFICATION Cardiovascular RiskHDL > or equal to 60 mg/dL LOWHDL < 40 mg/dL HIGH Serum or plasma potassium me asurement (moles/volume)Ordered By: Yamilex Foster on 02-11-2022 Potassium [Moles/Vol] 4.2 mmol/L 3.5-5.1 [facility] Serum or plasma sodium measu rement (moles/volume)Ordered By: Yamilex Foster on 02-11-2022 Sodium [Moles/Vol] 138 mmol/L 136-146 [facility] Serum or plasma total biliru bin measurement (mass/volume)Ordered By: Yamilex Foster on 02-11-2022 Bilirubin [Mass/Vol] 0.7 mg/dL 0.3-1.2 [facility] Serum or plasma total carbon dioxide measurement (moles/volume)Ordered By: Yamilex Foster on 02-11-2022 CO2 [Moles/Vol] 25.8 mmol/L 22.0-30.0 [facility] Serum or plasma total choles terol/high density lipoprotein (HDL) cholesterol mass ratOrdered By: Yamilex Foster on 02-11-2022 Cholesterol.total/Radha sterol in HDL [Mass ratio] 2.8 {ratio} <5.0 [facility] Serum or plasma urea nitroge n measurement (mass/volume)Ordered By: Yamilex Foster on 02-11-2022 Urea nitrogen [Mass/Vol] 16 mg/dL 01-07 [facility] Triglyceride [Mass/volume] i n Serum or PlasmaOrdered By: Yamilex Foster on 02-11-2022 Triglyceride [Mass/Vol] 140 mg/dL 35-149 [facility] Comment on above: TRIG ATP III [...] 20 mg/L (U) [Mass/Vol] 3.4 mg/dL 0.0-1.8 [facility] Urine microalbumin/creatinin e mass ratioOrdered By: Yamilex Foster on 02-11-2022 Albumin/Creatinine DL <= 20 mg/L (U) [Mass ratio] 68.0 mg/g 0.0-30.0 [facility] Comment on above: 30-300 mg/g indicate s an increased risk for diabetic nephropathy. Greater than 300 mg/g is consistent with clinical nephropathy. (Am. J. Kidney Disease 1995, 25:107) BNPon 12-31-2021 Natriuretic peptide B (Bld) [Mass/Vol] 229.0 pg/mL Normal <=900.0 [facility] Comment on above: Performed By: #### B ELDERLY SITTER #### [facility] [address] [place] [address] Dr. Jose Rojas CBC AUTO DIFFon 12-31-2021 BASO # 0.1 103/ul Normal 0.0-0.1 [facility] Comment on above: Performed By: #### D ATCBC #### [facility] [address] [place] [address] Dr. Jose Rojas Basophils/100 WBC (Bld) 0.5 % Normal 0.2-2.0 [facility] Comment on above: Performed By: #### D ATCBC #### [facility] [address] [address] [address] Jose Rojas EO # 0.1 103/ul Normal 0.0-0.7 [facility] Comment on above: Performed By: #### D ATCBC #### [facility] [address] [address] [address] Jose Rojas Eosinophils/100 WBC (Bld) 1.0 % Normal 0.9-7.0 [facility] Comment on above: Performed By: #### D ATCBC #### [facility] [address] [place] [address] Dr. Jose Rojas Erythrocyte distribution width (RBC) [Ratio] 15.1 % Critically high 11.0-15.0 [facility] Comment on above: Performed By: #### D ATCBC #### [facility] [address] [place] [address] Dr. Jose Rojas Hematocrit (Bld) [Volume fraction] 49.2 % Normal 42.0-54.0 [facility] Comment on above: Performed By: #### D ATCBC #### [facility] [address] [place] [address] Dr. Jose Rojas Hemoglobin (Bld) [Mass/Vol] 16.1 g/dL Normal 14.0-18.0 [facility] Comment on above: Performed By: #### D ATCBC #### [facility] [address] [place] [address] Dr. Jose Rojas IG # 0.07 10e3/ul Critically high 0.00-0.03 [facility] Comment on above: Performed By: #### D ATCBC #### [facility] [address] [place] [address] Dr. Jose Rojas IG % 0.7 % Critically high 0.0-0.5 [facility] Comment on above: Performed By: #### D ATCBC #### [facility] [address] [place] [address] Dr. Jose Rojas LYMPH # 2.1 103/ul Normal 1.2-3.8 [facility] Comment on above: Performed By: #### D ATCBC #### [facility] [address] [place] [address] Dr. Jose Rojas Lymphocytes/100 WBC (Bld) 22.2 % Normal 20.5-60.0 [facility] Comment on above: Performed By: #### D ATCBC #### [facility] [address] [place] [address] Dr. Jose Rojas MANUAL DIFF REQ NO Normal [facility] Comment on above: Performed By: #### D ATCBC #### [facility] [address] [address] [address] Joes Rojas MCH (RBC) [Entitic mass] 28.0 pg Normal 25.9-34.0 [facility] Comment on above: Performed By: #### D ATCBC #### [facility] [address] [place] [address] Dr. Jose Rojas MCHC (RBC) [Mass/Vol] 32.7 g/dL Normal 29.9-35.2 [facility] Comment on above: Performed By: #### D ATCBC #### [facility] [address] [place] [address] Dr. Jose Rojas MCV (RBC) [Entitic vol] 85.6 fL Normal 80.0-94.0 [facility] Comment on above: Performed By: #### D ATCBC #### [facility] [address] [place] [address] Dr. Jose Rojas MONO # 1.0 103/ul Critically high 0.3-0.8 [facility] Comment on above: Performed By: #### D ATCBC #### [facility] [address] [place] [address] Dr. Jose Rojas Monocytes/100 WBC (Bld) 10.2 % Normal 1.7-12.0 [facility] Comment on above: Performed By: #### D ATCBC #### [facility] [address] [place] [address] Dr. Jose Rojas NEUT # 6.3 103/ul Normal 1.4-6.5 [facility] Comment on above: Performed By: #### D ATCBC #### [facility] [address] [place] [address] Dr. Jose Rojas Neutrophils/100 WBC (Bld) 65.4 % Normal 43.0-75.0 [facility] Comment on above: Performed By: #### D ATCBC #### [facility] [address] [place] [address] Dr. Jose Rojas Platelet mean volume (Bld) [Entitic vol] 9.4 fL Critically low 9.5-13.[address] [facility] Comment on above: Performed By: #### D ATCBC #### [facility] [address] [place] [address] Dr. Jose Rojas PLT 353 103/ul Normal 150-[address] [facility] Comment on above: Performed By: #### D ATCBC #### [facility] [address] [place] [address] Dr. Jose Rojas RBC 5.75 106/ul Normal 4.70-6.[address] [facility] Comment on above: Performed By: #### D ATCBC #### [facility] [address] [place] [address] Dr. Jose Rojas WBC 9.6 103/ul Normal 4.0-11.0 [facility] Comment on above: Performed By: #### D ATCBC #### [facility] [address] [place] [address] Dr. Jose Rojas Covid-19 PCR ([facility])on 12-16 SARS-CoV-2 (COVID-19) RNA PRASHANT+probe Ql (Unsp spec) Not detected Normal NOT DETECTED [facility] Comment on above: Result Comment: When [...] for this test is supported by the [employer] of [employer] and Human Service's declaration that [...] used). Performed By: #### C VDTBH #### [facility] [address] [place] [address] Dr. Jose Rojas PROF CHEM 8 (BAS METB)on Anion gap [Moles/Vol] 14.0 mmol/L Normal [facility] Comment on above: Performed By: #### H STROPN, BMP #### [facility] [address] [address] [address] Jose Rojas Calcium [Mass/Vol] 9.5 mg/dL Normal 8.5-10.1 [facility] Comment on above: Performed By: #### H STROPN, BMP #### [facility] [address] [address] [address] Jose Rojas Chloride [Moles/Vol] 100 mmol/L Normal 98-107 [facility] Comment on above: Performed By: #### H STROPN, BMP #### [facility] [address] [place] [address] Dr. Jose Rojas CO2 [Moles/Vol] 26.9 mmol/L Normal 21.0-32.0 [facility] Comment on above: Performed By: #### H STROPN, BMP #### [facility] [address] [place] [address] Dr. Jose Rojas Creatinine [Mass/Vol] 1.06 mg/dL Normal 0.70-1.30 [facility] Comment on above: Performed By: #### H STROPN, BMP #### [facility] [address] [place] [address] Dr. Jose Rojas EGFR-AF UGANDAN >60 Normal >=60 [facility] Comment on above: Performed By: #### H STROPN, BMP #### [facility] [address] [place] [address] Dr. Jose Rojas EGFR-NON AF UGANDAN >60 Normal >=60 [facility] Comment on above: Performed By: #### H STROPN, BMP #### [facility] [address] [place] [address] Dr. Jose Rojas Glucose [Mass/Vol] 152 mg/dL Critically high 74-106 [facility] Comment on above: Performed By: #### H STROPN, BMP #### [facility] [address] [address] [address] Jose Rojas Potassium [Moles/Vol] 3.9 mmol/L Normal 3.5-5.1 [facility] Comment on above: Performed By: #### H STROPN, BMP #### [facility] [address] [address] [address] Jose Rojas Sodium [Moles/Vol] 137 mmol/L Normal 136-145 [facility] Comment on above: Performed By: #### H STROPN, BMP #### [facility] [address] [address] [address] Jose Rojas Urea nitrogen [Mass/Vol] 19.0 mg/dL Critically high 7.0-18.0 [facility] Comment on above: Performed By: #### H STROPN, BMP #### [facility] [address] [address] [address] Jose Rojas Urea nitrogen/Creatinine [Mass ratio] 17.9 mg/mg Normal [facility] Comment on above: Performed By: #### H STROPN, BMP #### [facility] [address] [address] [address] Jose Rojas TROPONIN, HIGH SENSITIVITYon 12-31-2021 HSTROP 6144.5 pg/mL Critically high 4.0-76.1 [facility] Comment on above: Result Comment: CUT- OFF POINTS HAVE BEEN ESTABLISHED BASED ON THE FOURTH UNIVERSAL DEFINITIONS OF MYOCARDIAL INFARCTION. THE UPPER REFERENCE LIMIT (URL) OF TROPONIN, DEFINED THE 99TH PERCENTILE OF cTnI DISTRIBUTION IN A REFERENCE POPULATION, HAS BEEN CONFIRMED THE DECISION THRESHOLD FOR [place] DIAGNOSIS. Performed By: #### H STROPN #### [facility] [address] [place] [address] Dr. Jose Rojas HSTROP 142.5 pg/mL Critically high 4.0-76.1 [facility] Comment on above: Result Comment: CUT- OFF POINTS HAVE BEEN ESTABLISHED BASED ON THE FOURTH UNIVERSAL DEFINITIONS OF MYOCARDIAL INFARCTION. THE UPPER REFERENCE LIMIT (URL) OF TROPONIN, DEFINED THE 99TH PERCENTILE OF cTnI DISTRIBUTION IN A REFERENCE POPULATION, HAS BEEN CONFIRMED THE DECISION THRESHOLD FOR OH DIAGNOSIS. Performed By: #### H STROPN, BMP #### [facility] [address] [address] [address] Jose Rojas XR CHEST 1 Von [...] by: STORM CONDE Date: 2021-12-31 13:54 Normal [facility] XR LSPINE 2_3 VIEWSon 2021 XR LSPINE [...] by: HEAVENLY LOUIS Date: 2021-10-31 08:51 Normal [facility] A1C HEMOGLOBINon 10-21-2021 HbA1c (Bld) [Mass fraction] 7.5 % [employer] Other Glucose - FINGER STICKon Glucose [Mass/Vol] 107 mg/dL [employer] Other HbA1c (Bld) [Mass fraction]o n 10-21-2021 A1C HEMOGLOBIN CAD [employer] Other Urinalysis - AUTOMATEDon Appearance (U) cloudy [employer] Other Bilirubin Ql (U) Negative Accurence ast [employer] Other Color (U) yellow [employer] Other Glucose Ql (U) 500 [employer] Other Hemoglobin Ql (U) moderate [employer] Other Ketones Ql (U) Negative [employer] Other Leukocyte esterase Test strip Ql (U) moderate [employer] Other Nitrite Ql (U) Positive [employer] Other pH (U) 6.0 [pH] [employer] Other Protein Ql (U) trace [employer] Other Specific gravity (U) [Rel density] 1.025 [employer] Other Urobilinogen (U) [Mass/Vol] 0.2 mg/dL [employer] Other Urinalysis - AUTOMATED No rt [employer] Other Urine Cultureon 08-11-2021 Bacteria identified Cx Nom (U) [employer] Other A1C HEMOGLOBINon 06-29-2021 HbA1c (Bld) [Mass fraction] 7.4 % [employer] Other Glucose - FINGER STICKon Glucose [Mass/Vol] 168 mg/dL [employer] Other HbA1c (Bld) [Mass fraction]o n 06-29-2021 A1C HEMOGLOBIN [employer] Other A1C HEMOGLOBINon 03-24-2021 HbA1c (Bld) [Mass fraction] 6.6 % [employer] Other Glucose - FINGER STICKon Glucose [Mass/Vol] 171 mg/dL [employer] Other HbA1c (Bld) [Mass fraction]o n 03-24-2021 A1C HEMOGLOBIN CAD [employer] Other Vital Signs Date Time Vital Sign Value Performing Clinician Facility 05-15-2024 16:05-0500 Body height 177.8 cm [facility] 05-15-2024 16:05-0500 Body mass index (BMI) [Ratio] 38.7 kg/m2 [facility] 05-15-2024 16:05-0500 Body weight 122.24 kg [facility] 05-15-2024 16:05-0500 Diastolic blood pressure 72 mm[Hg] [facility] 05-15-2024 16:05-0500 Heart rate 70 /min [facility] 05-15-2024 16:05-0500 Respiratory rate 18 /min [facility] 05-15-2024 16:05-0500 SaO2% (BldA) [Mass fraction] 95 % [facility] 05-15-2024 16:05-0500 Systolic blood pressure 117 mm[Hg] [facility] 04-23-2024 15:52-0500 Body height 177.8 cm [facility] 04-23-2024 15:52-0500 Body mass index (BMI) [Ratio] 39.8 kg/m2 [facility] 04-23-2024 15:52-0500 Body weight 125.81 kg [facility] 04-23-2024 15:52-0500 Diastolic blood pressure 72 mm[Hg] [facility] 04-23-2024 15:52-0500 Heart rate 76 /min [facility] 04-23-2024 15:52-0500 Respiratory rate 12 /min [facility] 04-23-2024 15:52-0500 Systolic blood pressure 123 mm[Hg] [facility] 02-07-2024 16:30-0400 Body height 177.8 cm [facility] 02-07-2024 16:30-0400 Body mass index (BMI) [Ratio] 38.5 kg/m2 [facility] 02-07-2024 16:30-0400 Body weight 121.78 kg [facility] 02-07-2024 16:30-0400 Diastolic blood pressure 71 mm[Hg] [facility] 02-07-2024 16:30-0400 Heart rate 74 /min [facility] 02-07-2024 16:30-0400 Respiratory rate 18 /min [facility] 02-07-2024 16:30-0400 SaO2% (BldA) [Mass fraction] 97 % [facility] 02-07-2024 16:30-0400 Systolic blood pressure 116 mm[Hg] [facility] 11-01-2023 16:16-0400 Body height 177.8 cm [facility] 11-01-2023 16:16-0400 Body mass index (BMI) [Ratio] 39.2 kg/m2 [facility] 11-01-2023 16:16-0400 Body weight 123.83 kg [facility] 11-01-2023 16:16-0400 Diastolic blood pressure 57 mm[Hg] [facility] 11-01-2023 16:16-0400 Respiratory rate 16 /min [facility] 11-01-2023 16:16-0400 SaO2% (BldA) [Mass fraction] 93 % [facility] 11-01-2023 16:16-0400 Systolic blood pressure 103 mm[Hg] [facility] 10-18-2023 15:43-0400 Body height 177.8 cm [facility] 10-18-2023 15:43-0400 Body mass index (BMI) [Ratio] 39.2 kg/m2 [facility] 10-18-2023 15:43-0400 Body weight 123.94 kg [facility] 10-18-2023 15:43-0400 Diastolic blood pressure 74 mm[Hg] [facility] 10-18-2023 15:43-0400 Heart rate 77 /min [facility] 10-18-2023 15:43-0400 Respiratory rate 12 /min [facility] 10-18-2023 15:43-0400 Systolic blood pressure 119 mm[Hg] [facility] 09-13-2023 13:15-0400 Body mass index (BMI) [Ratio] 39.86 kg/m2 Jian Alberto MD Work Phone: [facility] 09-13-2023 13:15-0400 Body weight 126 kg Jian Alberto MD Work Phone: [facility] 09-13-2023 13:15-0400 Diastolic blood pressure 71 mm[Hg] Jian Alberto MD Work Phone: [facility] 09-13-2023 13:15-0400 Heart rate 72 /min Jian Alberto MD Work Phone: [facility] 09-13-2023 13:15-0400 Systolic blood pressure 128 mm[Hg] Jian Alberto MD Work Phone: [facility] 08-04-2023 13:51-0400 Body height 177.8 cm Giovanni Mulligan MD Work Phone: [facility] 08-04-2023 13:51-0400 Body weight 124.29 kg Giovanni Mulligan MD Work Phone: [facility] 07-27-2023 12:44-0400 Respiratory rate 18 /min [facility] Work Phone: [facility] 07-11-2023 15:26-0400 Body height 177.8 cm [facility] 07-11-2023 15:26-0400 Body mass index (BMI) [Ratio] 39.4 kg/m2 [facility] 07-11-2023 15:26-0400 Body weight 124.73 kg [facility] 07-11-2023 15:26-0400 Diastolic blood pressure 73 mm[Hg] [facility] 07-11-2023 15:26-0400 Heart rate 73 /min [facility] 07-11-2023 15:26-0400 Systolic blood pressure 117 mm[Hg] [facility] 06-21-2023 16:14-0500 Body height 177.8 cm [facility] 06-21-2023 16:14-0500 Body mass index (BMI) [Ratio] 39.4 kg/m2 [facility] 06-21-2023 16:14-0500 Body weight 124.73 kg [facility] 06-21-2023 16:14-0500 Diastolic blood pressure 65 mm[Hg] [facility] 06-21-2023 16:14-0500 Heart rate 70 /min [facility] 06-21-2023 16:14-0500 Respiratory rate 18 /min [facility] 06-21-2023 16:14-0500 SaO2% (BldA) [Mass fraction] 95 % [facility] 06-21-2023 16:14-0500 Systolic blood pressure 109 mm[Hg] [facility] 06-19-2023 13:05-0500 Body weight 124.29 kg Ligia Colmenares MD Work Phone: [facility] 06-19-2023 13:05-0500 Diastolic blood pressure 68 mm[Hg] Ligia Colmenares MD Work Phone: [facility] 06-19-2023 13:05-0500 Heart rate 68 /min Ligia Colmenares MD Work Phone: [facility] 06-19-2023 13:05-0500 Systolic blood pressure 112 mm[Hg] Ligia Colmenares MD Work Phone: [facility] 04-19-2023 15:30-0500 Body height 177.8 cm Fahad Ball Other [facility] 04-19-2023 15:30-0500 Body mass index (BMI) [Ratio] 39.91 kg/m2 Fahad Ball Other [facility] [employer] Other 04-19-2023 15:30-0500 Body weight 126.19 kg Fahad Ball Other [facility] [employer] Other 04-19-2023 15:30-0500 Body weight 126.18 kg DO Fahad Ball Work Phone: [facility] 04-19-2023 15:30-0500 Diastolic blood pressure 77 mm[Hg] Fahad Ball Other [facility] 04-19-2023 15:30-0500 Respiratory rate 16 /min Fahad Ball Other [facility] [employer] Other 04-19-2023 15:30-0500 Systolic blood pressure 125 mm[Hg] Fahad Ball Other [facility] 03-22-2023 11:46-0500 Blood Pressure Location Antonia Smisson-Cartledge [employer] [facility] 03-22-2023 11:46-0500 Diastolic blood pressure 71 mm[Hg] Antonia COOK [facility] 03-22-2023 11:46-0500 Heart rate 69 /min Antonia BUSH [facility] 03-22-2023 11:46-0500 Systolic blood pressure 111 mm[Hg] Antonia BUSH [facility] 03-08-2023 16:15-0500 Body height 177.8 cm Tondra Mapus Other [facility] 03-08-2023 16:15-0500 Body mass index (BMI) [Ratio] 39.65 kg/m2 Tondra Mapus Other [facility] [employer] Other 03-08-2023 16:15-0500 Body weight 125.38 kg Tondra Mapus Other [facility] [employer] Other 03-08-2023 16:15-0500 Body weight 125.37 kg DO Fahad Ball Work Phone: [facility] 03-08-2023 16:15-0500 Diastolic blood pressure 72 mm[Hg] Tondra Mapus Other [facility] 03-08-2023 16:15-0500 Respiratory rate 18 /min Tondra Mapus Other [employer] Other 03-08-2023 16:15-0500 SaO2% (BldA) [Mass fraction] 96 % Tondra Mapus Other [employer] Other 03-08-2023 16:15-0500 Systolic blood pressure 127 mm[Hg] Tondra Mapus Other [facility] 01-20-2023 14:45-0400 Body height 177.8 cm Fahad Ball Other [employer] Other 01-20-2023 14:45-0400 Body mass index (BMI) [Ratio] 39.17 kg/m2 Fahad Ball Other [employer] Other 01-20-2023 14:45-0400 Body weight 123.83 kg Fahad Ball Other [employer] Other 01-20-2023 14:45-0400 Diastolic blood pressure 74 mm[Hg] Fahad Ball Other [employer] Other 01-20-2023 14:45-0400 Respiratory rate 18 /min Fahad Ball Other [employer] Other 01-20-2023 14:45-0400 Systolic blood pressure 118 mm[Hg] Fahad Ball Other [employer] Other 11-24-2022 15:30-0400 Body height 177.8 cm Tondra Mapus Other [employer] Other 11-24-2022 15:30-0400 Body mass index (BMI) [Ratio] 39.22 kg/m2 Tondra Mapus Other [employer] Other 11-24-2022 15:30-0400 Body weight 124.01 kg Tondra Mapus Other [employer] Other 11-24-2022 15:30-0400 Diastolic blood pressure 65 mm[Hg] Tondra Mapus Other [employer] Other 11-24-2022 15:30-0400 Respiratory rate 18 /min Tondra Mapus Other [employer] Other 11-24-2022 15:30-0400 SaO2% (BldA) [Mass fraction] 95 % Tondra Mapus Other [employer] Other 11-24-2022 15:30-0400 Systolic blood pressure 109 mm[Hg] Tondra Mapus Other [employer] Other 10-17-2022 15:30-0400 Body height 177.8 cm Fahad Ball Other [employer] Other 10-17-2022 15:30-0400 Body mass index (BMI) [Ratio] 39.6 kg/m2 Fahad Ball Other [employer] Other 10-17-2022 15:30-0400 Body weight 125.19 kg Fahad Ball Other [employer] Other 10-17-2022 15:30-0400 Diastolic blood pressure 66 mm[Hg] Fahad Ball Other [employer] Other 07-03-2023 15:30-0400 Respiratory rate 16 /min Fahad Ball Other [employer] Other 10-17-2022 15:30-0400 Systolic blood pressure 108 mm[Hg] Fahad Ball Other [employer] Other 08-22-2022 16:30-0400 Body height 177.8 cm Tondra Mapus Other [employer] Other 08-22-2022 16:30-0400 Body mass index (BMI) [Ratio] 39.93 kg/m2 Tondra Mapus Other [employer] Other 08-22-2022 16:30-0400 Body weight 126.24 kg Tondra Mapus Other [employer] Other 08-22-2022 16:30-0400 Diastolic blood pressure 70 mm[Hg] Tondra Mapus Other [employer] Other 08-22-2022 16:30-0400 Respiratory rate 18 /min Tondra Mapus Other [employer] Other 08-22-2022 16:30-0400 SaO2% (BldA) [Mass fraction] 94 % Tondra Mapus Other [employer] Other 08-22-2022 16:30-0400 Systolic blood pressure 111 mm[Hg] Tondra Mapus Other [employer] Other 07-18-2022 16:30-0400 Body height 177.8 cm Fahad Ball Other [employer] Other 07-18-2022 16:30-0400 Body mass index (BMI) [Ratio] 40.2 kg/m2 Fahad Ball Other [employer] Other 07-18-2022 16:30-0400 Body weight 127.1 kg Fahad Ball Other [employer] Other 07-18-2022 16:30-0400 Diastolic blood pressure 71 mm[Hg] Fahad Ball Other [employer] Other 07-18-2022 16:30-0400 Respiratory rate 16 /min Fahad Ball Other [employer] Other 07-18-2022 16:30-0400 Systolic blood pressure 117 mm[Hg] Fahad Ball Other [employer] Other 05-19-2022 16:15-0500 Body height 177.8 cm Tondra Mapus Other [employer] Other 05-19-2022 16:15-0500 Body mass index (BMI) [Ratio] 40.79 kg/m2 Tondra Mapus Other [employer] Other 05-19-2022 16:15-0500 Body weight 128.96 kg Tondra Mapus Other [employer] Other 05-19-2022 16:15-0500 Diastolic blood pressure 72 mm[Hg] Tondra Mapus Other [employer] Other 05-19-2022 16:15-0500 Respiratory rate 18 /min Tondra Mapus Other [employer] Other 05-19-2022 16:15-0500 SaO2% (BldA) [Mass fraction] 93 % Tondra Mapus Other [employer] Other 05-19-2022 16:15-0500 Systolic blood pressure 131 mm[Hg] Tondra Mapus Other [employer] Other 05-04-2022 16:30-0500 Body height 177.8 cm Fahad Ball Other [employer] Other 05-04-2022 16:30-0500 Body mass index (BMI) [Ratio] 41.23 kg/m2 Fahad Ball Other [employer] Other 05-04-2022 16:30-0500 Body weight 130.36 kg Fahad Ball Other [employer] Other 05-04-2022 16:30-0500 Diastolic blood pressure 82 mm[Hg] Fahad Ball Other [employer] Other 05-04-2022 16:30-0500 Respiratory rate 20 /min Fahad Ball Other [employer] Other 05-04-2022 16:30-0500 Systolic blood pressure 118 mm[Hg] Fahad Ball Other [employer] Other 10-21-2021 14:45-0400 Body height 177.8 cm Tondra Mapus Other [employer] Other 10-21-2021 14:45-0400 Body mass index (BMI) [Ratio] 40.31 kg/m2 Tondra Mapus Other [employer] Other 10-21-2021 14:45-0400 Body weight 127.46 kg Tondra Mapus Other [employer] Other 10-21-2021 14:45-0400 Diastolic blood pressure 70 mm[Hg] Tondra Mapus Other [employer] Other 10-21-2021 14:45-0400 Respiratory rate 20 /min Tondra Mapus Other [employer] Other 10-21-2021 14:45-0400 SaO2% (BldA) [Mass fraction] 96 % Tondra Mapus Other [employer] Other 10-21-2021 14:45-0400 Systolic blood pressure 110 mm[Hg] Tondra Mapus Other [employer] Other 08-11-2021 15:15-0400 Body height 177.8 cm Celestina Greene Other [employer] Other 08-11-2021 15:15-0400 Body mass index (BMI) [Ratio] 38.74 kg/m2 Celestina Talbotmond Other [employer] Other 08-11-2021 15:15-0400 Body temperature 98.2 [degF] Celestina Talbotmond Other [employer] Other 08-11-2021 15:15-0400 Body weight 122.47 kg Celestina Talbotmond Other [employer] Other 08-11-2021 15:15-0400 Diastolic blood pressure 72 mm[Hg] Celestina Ramona Other [employer] Other 08-11-2021 15:15-0400 Respiratory rate 18 /min Celestina Talbotmond Other [employer] Other 08-11-2021 15:15-0400 SaO2% (BldA) [Mass fraction] 99 % Celestina Greene Other [employer] Other 08-11-2021 15:15-0400 Systolic blood pressure 123 mm[Hg] Celestina Greene Other [employer] Other 06-29-2021 15:30-0400 Body height 177.8 cm Tondra Mapus Other [employer] Other 06-29-2021 15:30-0400 Body mass index (BMI) [Ratio] 40.89 kg/m2 Tondra Mapus Other [employer] Other 06-29-2021 15:30-0400 Body weight 129.28 kg Tondra Mapus Other [employer] Other 06-29-2021 15:30-0400 Diastolic blood pressure 75 mm[Hg] Tondra Mapus Other [employer] Other 06-29-2021 15:30-0400 Respiratory rate 20 /min Tondra Mapus Other [employer] Other 06-29-2021 15:30-0400 SaO2% (BldA) [Mass fraction] 95 % Tondra Mapus Other [employer] Other 06-29-2021 15:30-0400 Systolic blood pressure 126 mm[Hg] Tondra Mapus Other [employer] Other 03-24-2021 16:15-0500 Body height 177.8 cm Tondra Mapus Other [employer] Other 03-24-2021 16:15-0500 Body mass index (BMI) [Ratio] 40.89 kg/m2 Tondra Mapus Other [employer] Other 03-24-2021 16:15-0500 Body weight 129.28 kg Tondra Mapus Other [employer] Other 03-24-2021 16:15-0500 Diastolic blood pressure 67 mm[Hg] Tondra Mapus Other [employer] Other 03-24-2021 16:15-0500 Respiratory rate 20 /min Tondra Mapus Other [employer] Other 03-24-2021 16:15-0500 SaO2% (BldA) [Mass fraction] 97 % Tondra Mapus Other [employer] Other 03-24-2021 16:15-0500 Systolic blood pressure 115 mm[Hg] Tondra Mapus Other [employer] Other 01-06-2021 15:00-0400 Body height 177.8 cm Tondra Mapus Other [employer] Other 01-06-2021 15:00-0400 Body mass index (BMI) [Ratio] 39.81 kg/m2 Tondra Mapus Other [employer] Other 01-06-2021 15:00-0400 Body weight 125.87 kg Tondra Mapus Other [employer] Other Encounters Encounter Date Encounter Type Care Provider Facility Start: 05-15-2024 End: 05-15-2024 ambulatory [facility] Work Phone: Start: 05-15-2024 End: 05-15-2024 Patient encounter procedure [facility] Work Phone: Start: 04-23-2024 End: 04-23-2024 ambulatory [facility] Work Phone: Start: 04-23-2024 End: 04-23-2024 Patient encounter procedure [facility] Work Phone: Start: 02-07-2024 End: 02-07-2024 ambulatory [facility] Work Phone: Start: 02-07-2024 End: 02-07-2024 Patient encounter procedure [facility] Work Phone: Start: 01-23-2024 ambulatory [facility] Start: 01-20-2024 Non-patient / Non-visit [facility] Work Phone: Start: 01-15-2024 End: 01-15-2024 Telephone encounter Jada Wilkins APRN.METAPHYSICS TEACHER Work Phone: Urology Start: 11-01-2023 End: 11-01-2023 ambulatory [facility] Work Phone: Start: 11-01-2023 End: 11-01-2023 Patient encounter procedure [facility] Work Phone: Start: 10-18-2023 End: 10-18-2023 ambulatory [facility] Work Phone: Start: 10-18-2023 End: 10-18-2023 Encounter for general adult medical examination without abnormal findings [facility] Start: 10-18-2023 End: 10-18-2023 Patient encounter procedure [facility] Work Phone: Start: 10-04-2023 Telephone encounter Jada Sharma Delano rivero APRN.METAPHYSICS TEACHER Work Phone: Urology Start: 09-13-2023 End: 09-13-2023 [...] Start: 08-04-2023 End: 08-04-2023 ambulatory GIOVANNI MULLIGAN Facility:[facility] Start: 07-28-2023 End: 07-29-2023 ambulatory JIAN ALBERTO Facility:[facility] Start: 07-27-2023 Non-patient / Non-visit [facility] Work Phone: Start: 07-27-2023 End: 07-27-2023 Admission to establishment [facility] Work Phone: [facility] Start: 07-27-2023 End: 07-27-2023 Preprocedural examination done [facility] Work Phone: [facility] Work Phone: Start: 07-27-2023 End: 07-27-2023 ambulatory [facility] Work Phone: Pre Anesthesia Comment on above: Pre-operative examin ation (Primary Dx); Primary hypertension; Hyperlipidemia, unspecified hyperlipidemia type; Coronary artery disease involving coronary bypass graft of ramona heart without angina pectoris; Chronic systolic CHF (congestive heart failure) ([facility]); Paroxysmal atrial fibrillation ([facility]); Gastroesophageal reflux disease, unspecified whether esophagitis present; Type 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 with other specified complication, with long-term current use of insulin ([facility]); Class 2 obesity due to excess calories without serious comorbidity with body mass index (BMI) of 39.0 to 39.9 in adult Start: 07-27-2023 Encounter for other preprocedural examination FAHAD ACEVES [facility] Start: 07-18-2023 Telephone encounter Noy garcia RN Work Phone: Urology Comment on above: [employer]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 [employer] Start: 07-11-2023 End: 07-11-2023 ambulatory [facility] Work Phone: Start: 07-11-2023 End: 07-11-2023 Patient encounter procedure [facility] Work Phone: Start: 06-21-2023 End: 06-21-2023 Patient encounter procedure [facility] Work Phone: Start: 06-19-2023 End: 06-19-2023 Patient encounter procedure Ligia Colmenares MD Work Phone: Cardiology Comment on above: Coronary artery dise ase involving ramona coronary artery of ramona heart, unspecified whether angina present (Primary Dx); History of non-ST elevation myocardial infarction (NSTEMI); Hx of CABG; Primary hypertension; Other hyperlipidemia Start: 06-19-2023 End: 06-19-2023 ambulatory LIGIA COLMENARES M.D. 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 [employer] Start: 05-03-2023 End: 05-03-2023 ambulatory Jian Alberto MD Work Phone: Urology Start: 05-02-2023 End: 05-02-2023 ambulatory Yarelis Santacruz Other [employer] Other Start: 05-02-2023 Office outpatient vi sit 10 minutes Yarelis Calvey [facility] Start: 05-02-2023 End: 05-02-2023 Patient encounter procedure DO Fahad Aceves Work Phone: [facility]- Start: 04-19-2023 End: 04-19-2023 ambulatory Fahad Aceves Other [employer] Other Start: 04-19-2023 Office outpatient vi sit 25 minutes Fahad Aceves [facility] Start: 04-19-2023 End: 04-19-2023 Patient encounter procedure DO Fahad Aceves Work Phone: [facility] Work Phone: Start: 03-30-2023 End: 03-30-2023 ambulatory Yarelis Santacruz Other [employer] Other Start: 03-30-2023 Telephone encounter Yarelis Begum [employer] Start: 03-28-2023 End: 03-28-2023 ambulatory Yarelis Santacruz Other [employer] Other Start: 03-28-2023 Office outpatient vi sit 15 minutes Yarelis Santacruz [facility] Start: 03-22-2023 End: 03-22-2023 ambulatory TONDRA K PALOMOUS Facility:[facility] Start: 03-22-2023 End: 03-22-2023 Patient encounter procedure Antonia BUSH [facility] Start: 03-08-2023 End: 03-08-2023 Discharged Recurring DO [facility]ad Aceves [facility] Work Phone: Start: 03-08-2023 (DM) Diabetes Tondra Mapus [facility] Start: 03-08-2023 End: 03-09-2023 ambulatory DO Fahad Aceves Work Phone: [employer] Other Start: 03-08-2023 End: 03-08-2023 Patient encounter procedure DO Fahad Aceves Work Phone: [facility] Work Phone: Start: 02-22-2023 End: 02-22-2023 ambulatory Yarelis Santacruz Other [employer] Other Start: 02-22-2023 Office outpatient vi sit 15 minutes Yarelis Santacruz [facility] Start: 01-20-2023 End: 01-20-2023 ambulatory Fahad Aceves Other [employer] Other Start: 01-20-2023 Office outpatient vi sit 15 minutes Fahad Aceves [facility] Start: 12-09-2022 End: 12-09-2022 ambulatory Tondra Mapus Other [employer] Other Start: 12-09-2022 Telephone encounter Tondra Mapus [facility] Start: 11-25-2022 ambulatory TONDRA MAPUS Facility:[facility] Start: 11-24-2022 (DM) Diabetes Tondra Mapus [facility] Start: 11-24-2022 End: 11-24-2022 ambulatory Tondra Mapus Other [employer] Other Start: 11-24-2022 Telephone encounter Tondra Mapus [facility] Start: 10-17-2022 End: 10-17-2022 ambulatory Fahad Aceves Other [employer] Other Start: 10-17-2022 Encounter for genera l adult medical examination without abnormal findings Fahad Aceves [facility] Start: 10-17-2022 Periodic preventive med est patient 40-64yrs Fahad Aceves [facility] Start: 09-05-[address] FAHAD ACEVES Facili ty:[facility] Start: 08-24-2022 End: 08-25-2022 ambulatory DAMIAN MATHUR Facility:[facility] Start: 08-22-2022 (DM) Diabetes Tondra Mapus [facility] Start: 08-22-2022 End: 08-22-2022 ambulatory Tondra Mapus Other [employer] Other Start: 07-18-2022 End: 07-18-2022 ambulatory Fahad Aceves Other [employer] Other Start: 07-18-2022 Office outpatient vi sit 15 minutes Fahad Aceves [facility] Start: 05-19-2022 (DM) Diabetes Tondra Mapus [facility] Start: 05-19-2022 End: 05-19-2022 ambulatory Tondra Mapus Other [employer] Other Start: 05-04-2022 End: 05-04-2022 ambulatory Fahad Aceves Other [employer] Other Start: 05-04-2022 Office outpatient vi sit 25 minutes Fahad Aceves [facility] Start: 04-19-2022 End: 05-04-[address] AFHAD ACEVES Facility:[facility] Start: 04-05-2022 End: 04-06-[address] FAHAD ACEVES Facility:[facility] Start: 03-30-2022 End: 03-31-[address] FAHAD ACEVES Facility:[facility] Start: 02-24-2022 End: 02-25-[address] FAHAD ACEVES Facility:[facility] Start: 02-17-2022 End: 04-19-[address] FAHAD ACEVES Facility:[facility] Start: 02-16-2022 End: 02-17-[address] FAHAD ACEVES Facility:[facility] Start: 02-14-2022 End: 02-14-2022 ambulatory Tondra Mapus Other [employer] Other Start: 02-14-2022 Telephone encounter Tondra Mapus [facility] Start: 02-11-2022 End: 02-11-2022 ambulatory DO Fahad Aceves Work Phone: [facility] Work Phone: Start: 02-11-2022 End: 02-11-2022 Patient encounter procedure DO Fahad Yola Work Phone: [facility] [place] Start: 02-10-2022 End: 02-11-[address] SIMBA KASPER Facility:[facility] Start: 02-01-2022 Registered Recurring DO Michael in Ball Work Phone: [facility] Start: 02-01-2022 End: 02-01-2022 ambulatory Tondra Mapus Other [employer] Other Start: 02-01-2022 Telephone encounter Tondra Mapus [facility] Start: 01-07-[address] FAHAD ACEVES Facili ty:[facility] Start: 12-31-2021 End: 12-31-2021 ambulatory DARNELL OVALLE Facility:[facility] Start: 12-16-2021 ambulatory DAMIAN MATHUR Faci lity:[facility] Start: 11-15-2021 End: 01-01-[address] FAHAD ACEVES Facility:[facility] Start: 10-29-2021 End: 10-30-[address] FAHAD ACEVES Facility:[facility] Start: 10-21-2021 (DM) Diabetes Tondra Mapus [facility] Start: 10-21-2021 End: 10-21-2021 ambulatory Tondra Mapus Other [employer] Other Start: 09-09-2021 End: 09-10-2021 ambulatory DAMIAN MATHUR Facility:[facility] Start: 08-11-2021 End: 08-11-2021 ambulatory Celestina Greene Other [employer] Other Start: 08-11-2021 Office outpatient vi sit 25 minutes Celestinajcarlos Greene [facility] [facility] Start: 06-29-2021 (DM) Diabetes Tondra Mapus [facility] Start: 06-29-2021 End: 06-29-2021 ambulatory Tondra Mapus Other [facility] Other Start: 05-12-2021 End: 05-12-2021 ambulatory Tondra Mapus Other [facility] Other Start: 05-12-2021 [facility] Start: 05-04-2021 End: 05-04-2021 ambulatory Tondra Mapus Other [facility] Other Start: 05-04-2021 Telephone encounter Tondra Bull [facility] Start: 03-24-2021 (DM) [facility] Start: 03-24-2021 End: 03-24-2021 ambulatory Tondra Mapus Other [facility] Other Start: 01-06-2021 Nursing evaluation o f patient and report [facility] Procedures Date Procedure Procedure [...] BP Controlled (<130/80) BP Controlle d (<130/80) [facility] Start: 07-26-2024 BP Controlled (<130/80) BP Controlle d (<130/80) [facility] Start: 02-14-2024 End: 02-14-2024 Patient encounter procedure 02/14/2024 10:15 AM EDT Office Visit Urology [address] [address] Jian Alberto MD [address] [place] [address] 5 month f/u ED per cc chart Urology Comment on above: 5 month f/u ED per c c chart Start: 01-26-2024 Hemoglobin A1c measurement HbA1C [facility] Start: 12-17-2023 Covid-19 Vaccine ( season) Covid-19 Vaccine ( season) [facility] Start: 12-17-2023 Influenza vaccination C [facility] Start: 04-17-2023 Behavioral Health Screening Behavioral Health Screening [facility] Start: 04-17-2023 Depression Assessment Depression Ass essment [facility] Start: 01-01-2023 Hepatitis B surface antibody level LDL Cholesterol [facility] Start: 12-16-2022 Covid-19 Vaccine ( season) Covid-19 Vaccine ( season) [facility] Start: 12-16-2022 Influenza vaccination Influenza Vacc ine (#1) [facility] Start: 07-04-2022 Hemoglobin A1c measurement HbA1C [facility] Start: 2022 RSV Vaccine (1 - 1-d ose 60+ series) RSV Vaccine (1 - 1-dose 60+ series) [facility] Start: 2022 RSV Vaccine (1 - Ris k 60-74 years 1-dose series) RSV Vaccine (1 - Risk 60-74 years 1-dose series) [facility] Start: 2017 Prostate specific antigen measurement Prostate Cancer Screening Discussion [facility] Start: 01-11-2012 Shingrix Vaccine (1 of 2) Shingrix Vaccine (1 of 2) [facility] Start: 2007 Screening for malign ant neoplasm of colon [facility] Start: 1981 Urine microalbumin profile DTaP,Tdap,Td Vaccine (1 - Tdap) [facility] Start: 01-11-1980 Annual PCP Team Pattern Marking Supervisor tennille Disease Visit Annual PCP Team Chronic Disease Visit [facility] Start: 01-11-1980 Anxiety Screening Anxiety Screening [facility] Start: 01-11-1980 Depression Screening Depression Scre ening [facility] Start: 01-11-1980 Hepatitis C screening Hepatitis C Sc reening [facility] Start: 01-11-1980 HIV screening HIV Screening [facility] Start: 01-11-1972 Diabetic foot examination Diabetic Foot Exam [facility] Start: 01-11-1972 Glaucoma screening Dilated Retinal E xam [facility] Start: 01-11-1972 Hepatitis B screening Urine Albumin:Creatinine Ratio [facility] Start: 01-11-1968 Pneumococcal vaccination Pneum ococcal Vaccine (1 of 2 - PCV) [facility] Start: 1960 Covid-19 Vaccine (#1) Covid-19 Vacci ne (#1) [facility] Comprehensive metabo lic 2000 panel - Serum or Plasma [facility] Patient Education [facility] Work Phone: URINALYSIS, REFLEX MICROSCOPIC URINALYSIS, REFLEX MICROSCOPIC Lab Routine Screening for genitourinary condition Ordered: 09/13/2023 [facility] Work Phone: Comment on above: Ordered: 09/13/2023 [facility] Immunizations Immunization Date Immunization Notes Care Provider Sam brenner 02-24-2022 COVID-19 Pfizer (bivalent) Fahad Aceves Other [facility] 03-23-2021 COVID-19 Vaccine Pfi zer - Documentation Purposes Only Fahad Aceves Other [facility] 08-03-2020 COVID-19 Vaccine Pfi zer - Documentation Purposes Only Fahad Aceves Other [facility] 07-13-2020 COVID-19 Vaccine Pfi zer - Documentation Purposes Only Fahad Aceves Other [facility] Payers Date Payer Category Payer Unknown [id number] 2015 Private Health Insurance [facility] UMR CHOICE PLUS [id number] 2015-Present [phone] [address] [address] [place] [address] [facility] [id number] 1962 Unknown [id number] 2.16.840.1.854328.3.579 .2.593 1962 Unknown [id number] 2.16.840.1.830390.3.579 .2.593 1962 Unknown [id number] 2.16.840.1.532403.3.579 .2.593 1962 Unknown [id number] 2.16.840.1.086787.3.579 .2.593 1962 Unknown [id number] 2.16.840.1.877259.3.579 .2.593 1962 Unknown [id number] 2.16.840.1.719017.3.579 .2.593 1962 Unknown [id number] 2.16.840.1.870136.3.579 .2.593 1962 Unknown [id number] 2.16.840.1.321404.3.579 .2.593 1962 Unknown [id number] 2.16.840.1.851695.3.579 .2.593 1962 Unknown [id number] 2.16.840.1.400116.3.579 .2.593 1962 Unknown [id number] 2.16.840.1.429844.3.579 .2.593 1962 Unknown [id number] 2.16.840.1.362733.3.579 .2.593 1962 Unknown [id number] 2.16.840.1.936891.3.579 .2.593 1962 Unknown [id number] 2.16.840.1.677825.3.579 .2.593 1962 Unknown [id number] 2.16.840.1.014453.3.579 .2.593 1959 Self-pay [id number] 1959 Unknown [id number] [id number] Unknown [id number] 2.16.840.1.856989.3.579 .2.593 Unknown [id number] 2.16.840.1.603287.3.579 .2.531 Social History Date Type Detail Facility Unknown if ever smoked [facility] Other Start: 05-03-2023 End: 08-04-2023 Sex Assigned At [facility] Start: 1960 Sex Assigned At Male F [facility] Start: 03-22-2023 End: 06-19-2023 Tobacco smoking status Never smoked tobacco (finding) [facility] Start: 05-03-2023 Tobacco use and exposure Smokeless tobacco non-user [facility] Start: 05-03-2023 End: 08-04-2023 History of Social function [facility] Start: 1960 Sex Assigned At Not on file C [facility] Start: 07-27-2023 End: 09-13-2023 Alcohol intake Current drinker of alcohol (finding) [facility] Start: 04-23-2024 End: 05-15-2024 Sex Male (finding) [facility] Medical Equipment Procedure Code Equipment Code Equipment Original Text Equi pment Identifier Dates Functional Status Date Assessment Result Facility 03-22-2023 Functional Status N/A [facility] Clinical Notes 01-06-2021 to 04-23-2024 Note Date [...] diabetes mellitus deleted May 15, 2024 4:00pm [facility] Work Phone: 1(783) 224-829910-23-2024 Evaluation note* Diagnosis Onset Date Resolution Status [...] wit h hyperglycemia acute April 23 3:40pm [facility] Work Phone: 1(404) 764-727510-08-2024 NoteI was available for discussion and questions prior to patient visit. Plan was discussed prior to implementation and I was present for delivery of the plan. I agree with the assessment and plan and have modified the documentation as necessary. Caroline Silva, TinD Cardiology Outpatient Clinical Pharmacist 01/23/24[facility]10-08-2024 NotePharmacist Visit - Lipid Phone Consult Provider: Dr. Kasper Department: [facility] Cardiology SUBJECTIVE/OBJECTIVE Caden Wills is a [...] visit for 01/23. Opal Peña, TinD, PGY1 Community Relations Coordinator 01/23/[address] [place] [address] [facility] NotePatient contacted clinic and updated labs were reviewed with patient. Stated he has been having leg pain (for 2-3 years); discussed high-risk of PAD due to severe CAD and DM. Will relay information to Dr. Kasper and discuss possibility of DVT/PAD work-up with imaging. Will continue to follow-up with patient regarding above issues. Caroline Silva, TinD Cardiology Outpatient Clinical Pharmacist 01/23/24[facility]09-30-2024 Telephone encounter Note* Telephone Encounter - Jada Wilkins APRN.CNP - 01/15/2024 2:53 PM EDT See previous telephone encounter from 10/04/2023. Keflex has been on auto refill, and [facility] has already been asked to cancel this request. Jada Wilkins APRN.CNP [facility] Work Phone: 1(266) 737-598609-30-2024 Telephone encounter Note* Telephone Encounter - Jada Wilkins APRN.CNP - 01/15/2024 2:53 PM EDT ----- Message from Mechio sent at 01/15/2024 9:13 AM EDT ----- Regarding: Refill medication [facility] [place] [facility]ed [facility] a refill request for Cephalexin - it is not on his current med list. Please advise and thank you, Kourtney [facility]09-30-2024 Miscellaneous Notes* Telephone Encounter - Jada Wilkins APRN.CNP - 01/15/2024 2:53 PM EDT See previous telephone encounter from 10/04/2023. Keflex has been on auto refill, and [facility] has already been asked to cancel this request. Jaad Wilkins APRN.CNP * Telephone Encounter - Jada Wilkins APRN.CNP - 01/15/2024 2:53 PM EDT ----- Message from Kourtney [employer] sent at 01/15/2024 9:13 AM EDT ----- Regarding: [facility] medication [facility] [place] [facility] refill request for Cephalexin - it is not on his current med list. Please advise and thank you, Kourtney documented in this encounterProvidence Hospital09-30-2024 NotePharmD Cardiology Consult - Lipids Provider: Dr. Kasper Department: [facility] Cardiology Caden Wills is a 64 [...] for PCSK9. Rx will be sent to [facility] to determine coverage and provide [...] Caroline Silva PharmD Cardiology Outpatient Clinical Pharmacist 01/15/2024[facility]09-30-2024 NotePatient returned call; will complete labs by end of the week. Requested call back on Sunday 01/21 for follow-up. Orders placed. Caroline Silva PharmD Cardiology Outpatient Clinical Pharmacist 01/16/2024[facility]06-19-2024 Telephone encounter Note * Telephone Encounter - Jada Wilkins APRN.CNP - 10/04/2023 4:24 PM EDT Keflex was prescribed for 1 month after buried penis surgery on 07/28/2023. Called [facility] [place] [facility]. He reports trying to cancel refill request for [facility] with [facility] but was unsuccessful. Denies concerns about infection. Reminded him that he should follow up with Dr. Alberto in the fall. Left voicemail at [facility] in [place], advising that [facility] [place] does NOT need refill on Keflexand asking them to take it off auto refill. Jada Wilkins APRN.CNP [facility] Work Phone: 1(107) 252-383506-19-2024 Miscellaneous Notes* Telephone Encounter - Jada Wilkins APRN.CNP - 10/04/2023 4:24 PM EDT Keflex was prescribed for 1 month after buried penis surgery on 07/28/2023. Called [facility]. He reports trying to cancel refill request for [facility] but was unsuccessful. Denies concerns about infection. Reminded him that he should follow up with Dr. Alberto in the fall. Left voicemail at [facility] in [place], advising that [facility] [place] does NOT need refill on Keflexand asking [...] and thank you, Kourtney documented in this encounterProvidence Hospital06-19-2024 Telephone encounter Note * Telephone Encounter - Jada Wilkins APRN.CNP - 10/04/2023 4:18 PM EDT ----- Message from Kourtney Hodge Patient Service Spec sent at 10/04/2023 7:36 AM EDT ----- Regarding: Medication refill [facility]ill request for Cephalexin 500 mg- it is not listed in his med list . Please advise and thank you, Kourtney [facility]05-29-2024 NoteHNO ID: [id number] Author: JIAN ALBERTO MD Service: ? Author [...] tablet Take 20 mEq by mouth. omega 2-xwu-yai-fish oil (FISH OIL) 100-160-1,000 mg cap Take 1,000 mg by mouth. No current facility-administered medications on file prior to visit. DATA/OR LABS TO BE REVIEWED: (Simple=1 data point; Complex= 2 or more) No results found for: PSA Creatinine (mg/dL) Date Value 07/29/2023 0.71 07/28/2023 0.75 07/27/2023 0.73 No results found for: TESTOST Noy Mary, russian history professor Staff Note: I performed a face to [...] in the fall for recheck. Jian Alberto, [facility]05-29-2024 History of Present illness Narrative* Jian Alberto [...] tablet Take 20 mEq by mouth. omega 5-xff-qhz-fish oil (FISH OIL) 100-160-1,000 mg cap Take 1,000 mg by mouth. No current facility-administered medications on file prior to visit. DATA/OR LABS TO BE REVIEWED: (Simple=1 data point; Complex= 2 or more) No results found for: PSA Creatinine (mg/dL) Date Value 07/29/2023 0.71 07/28/2023 0.75 07/27/2023 0.73 No results found for: TESTOST Noy Mary, russian history professor Staff Note: I performed a face to [...] recheck. Jian Alberto MD documented in this encounterProvidence Hospital05-29-2024 NotePatient Outreach (UROLMN) CADEN WILLS ([id number]) 1960 M Date Time Provider Department 09/13/23 JIAN ALBERTO During your visit today, we recorded the following information about you: Allergies As of Date: 09/13/2023 (No Known Allergies) Date Reviewed: 09/13/2023 Reviewed by: Rafal Mulligan MA - Fully Assessed Visit Diagnosis:Screening for genitourinary condition [Z13.89] Order(s):URINALYSIS, REFLEX MICROSCOPIC [[id number]] Order #: [id number] Prescriptions as of 09/18/2023 - amiodarone (PACERONE) [...] Take 20 mEq by mouth. - omega 2-tdd-gyc-fish oil (FISH OIL) 100-160-1,000 mg cap Take [...] *07/27/2023 Encounter Status:Closed by EPIC, PRODUSER on 09/18/23[facility] 08-04-[facility] History of Present illness Narrative* Giovanni [...] & Prosthetic Surgery Fellow documented in this encounterProvidence Hospital04-19-2024 NoteHNO ID: [id number] Author: GIOVANNI MULLIGAN MD Service: ? Author [...] MD Male Genitourinary Reconstruction AND Prosthetic Surgery FellowDiley Ridge Medical Center04-13-2024 NoteHNO ID: [id number] Author: GRAZYNA PURDY MD Service: Urology Author Type: Resident Type: Progress Notes Filed: 07/29/2023 08:41 Note Text: [facility] UROLOGY PROGRESS NOTE Name: Caden Wills Bed: Main - Periop OR/Main - * Date: 07/29/2023 After Hours [facility] [place] [facility] Service Pager: [phone] ASSESSMENT AND PLAN Caden Wills is a [...] SSI inpatient Grazyna Purdy MD Urology Resident [facility] [place] Pager [phone] For weekend or after hours issues [place] [phone] 6:53 AM 07/29/2023 Subjective SUBJECTIVE - See [...] 182* 82 Imaging All relevant recent imaging reviewedDiley [facility]04-12-2024 NoteHNO ID: [id number] Author: JUICE GEE MD Service: Urology Author Type: Resident Type: Progress Notes Filed: 07/28/2023 16:17 Note Text: [facility] UROLOGY PROGRESS NOTE Name: Caden Wills Bed: Main - Periop OR/Main - * Date: 07/28/2023 After Hours [facility] Urology Service Pager: [phone] ASSESSMENT AND PLAN Caden Wills is a [...] SSI inpatient Juice Gee MD Urology Resident [facility] Pager [phone] For weekend or after hours issues please page the on-call urology pager [phone] 07/28/2023 4:16 PM Subjective SUBJECTIVE - See [...] 182* 82 Imaging All relevant recent imaging reviewedDiley [facility] Medical Center04-12-2024 NoteHNO ID: [id number] Author: JEFFY MARTINEZ SRNA Service: ? 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 Alberto has scheduled you for your procedure at this surgery center: [facility] [place] [facility] Scheduling Office: [phone] --[address] [place] [address]. Please read below carefully for your personalized [...] not take the day of surgery omega 0-oly-zxx-fish oil (FISH OIL) 100-160-1,000 mg cap Do [...] or other anticoagulants without consulting with your patents examiner or prescribing physician. - Stop Vitamin E, [...] Procedures: - YOU MUST HAVE A RESPONSIBLE CYLINDER BLOCK MECHANIC TAKE YOU HOME. A BACK PADDER OR DATA MANAGEMENT CANNOT BE MADE A RESPONSIBLE CYLINDER BLOCK MECHANIC. - We recommend that a responsible person [...] call the Monday before. Your surgeon s demurrage clerk will tell you what time to call the office. - If you have not reached the departmental demurrage clerk by 5 P.M., call [phone] after 5 P.M. the day before your surgery. Please be aware that emergency situations arise, which may delay or change your surgical time. If this happens, we will notify you as soon as possible and regret any inconvenience. If you already have an Advance Directive, please fax a copy to [phone] or email to for it to be [...] into your chart that day. Kevin Goldsmith APRN.METAPHYSICS TEACHER documented in this encounterProvidence Hospital04-11-2024 History and physical note * Kevin Goldsmith [...] artery disease involving coronary bypass graft of ramona heart without angina pectoris CAD, hx of [place] s/p CABG x 5 in Dec 2021. [...] cardiac events (< 1% chance of , [place], CHF, malignant ventricular arrhythmias or high grade [...] 06/19/23 notes the following, Echo 03/30/22 ([facility]) - Global LV systolic function is [...] have a large neck STOP-Bang Score: 5 [id number] Score: Age: <65 Sex: male CHF history: Yes Hypertension history: Yes Stroke/TIA/thromboembolism history: No Vascular disease history: Yes Diabetes history: Yes [id number] Score: 4 ARISCAT Score: Age: 51-80 Preoperative [...] Artery Disease Involving Coronary Bypass Graft of [place] Heart Without Angina Pectoris Chronic Systolic Chf (Congestive Heart Failure) (Hcc) Paroxysmal Atrial Fibrillation (Hcc) Gerd (Gastroesophageal Reflux Disease) Type 2 Diabetes Mellitus, With Long-Term Current Use of Insulin ([facility]) 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 Taking Yes omega 6-klt-ukh-fish oil (FISH OIL) 100-160-1,000 mg cap Take [...] 414 QTC Calculation (Bazett) 440 Calculated P [place] 53 Calculated R [place] 20 Calculated T [place] 86 Impression NORMAL SINUS RHYTHM LOW VOLTAGE QRS NONSPECIFIC ST ABNORMALITY ABNORMAL ECG Confirmed by LIGIA COLMENARES M.D. ([id number]), supervising film or videotape editor Lainey Agee ([id number]) on 06/19/2023 2:11:39 PM 03/30/2022 Echo- [facility] Global LV systolic function is difficult [...] 2:46 PM PAGER/CONTACT #: documented in this encounterProvidence Hospital04-02-2024 Miscellaneous Notes* Telephone Encounter - Noy Mary [...] expressed. Noy Mary RN documented in this encounterProvidence Hospital03-04-2024 History of Present illness Narrative* Ligia Colmenares MD - 06/19/2023 1:00 PM EST Images from the original note were not included. [facility] Heart and Vascular [place] Rob Borden Department of Cardiovascular Medicine SECTION [...] furniture (8.00 METs). 12/06/2022 Robyn Miller Cardiology- [facility] HPI Pleasant 62-year-old man with prior history of coronary disease status post percutaneous intervention to chronically occluded LAD in 2007. Additional history includes diabetes, hypertension and hyperlipidemia. He was admitted in December 2021 to [facility] with chest pain and diagnosed with [...] 1 tablet by mouth every afternoon. omega 4-agk-krv-fish oil (FISH OIL) 100-160-1,000 mg cap Take [...] JVD, carotids well felt, no bruits. CARDIAC: Gail palpable in the 5th intercostal space mid [...] reviewed from the reports only: 03/30/2022 Echo- [facility] Global LV systolic function is difficult [...] upper normal limits in size. 01/07/2022 CABGx5- [facility] CABG X 5; CPB; LEFT LEG VEIN HARVEST; INTRAOP FREDI Coronary artery bypass grafting x5, AGARWAL to LAD, saphenous vein graft to diagonal and obtuse marginal branches, and saphenous vein graft to PDA and right posterolateral ventricular branch. 01/05/2022 Cardiac Cath- [facility] Mid RCA lesion is 99% stenosed. [...] infiltrated over the right radial artery. A 6-Vietnamese Terumo Glidesheath slender was placed in right radial artery. Radial anti-vasospasm cocktail of verapamil 2.5 mg and nitroglycerin 200 mcg was administered through the sheath. All catheter exchanges were made over the [employer] Pro[employer]yme guidewire. JL3.5 was used to engage the [...] cardiac events (< 1% chance of , [place], CHF, malignant ventricular arrhythmias or high grade [...] the patient follows up with an outside patents examiner. 5. Diabetes mellitus: Managed by PCP. 6. [...] the follow up visit. Ligia Colmenares MD, [facility], [facility] CC: To use this Smartlink, specify the provider ID whose address you want to display, e.g., .PROVADDR[1 (where 1 is the provider ID). documented in this encounterProvidence Hospital03-04-2024 NoteHNO ID: [id number] Author: LIGIA COLMENARES MD Service: ? Author Type: Physician Type: Progress Notes Filed: 06/19/2023 13:23 Note Text: [facility] Heart and Vascular [place] Rob Borden Department of Cardiovascular Medicine SECTION [...] furniture (8.00 METs). 12/06/2022 Robyn Miller Cardiology- [facility] HPI Pleasant 62-year-old man with prior history of coronary disease status post percutaneous intervention to chronically occluded LAD in 2007. Additional history includes diabetes, hypertension and hyperlipidemia. He was admitted in December 2021 to [facility] with chest pain and diagnosed with [...] 1 tablet by mouth every afternoon. omega 5-etm-aet-fish oil (FISH OIL) 100-160-1,000 mg cap Take [...] JVD, carotids well felt, no bruits. CARDIAC: Gail palpable in the 5th intercostal space mid clavicular line, (more content not included)...[facility]03-04-2024 NoteUT Cardiology - [facility] Subjective Caden Wills is a 63 y.o. year old male patient being seen for 6 mo follow up CAD, chronic systolic heart failure, hypertension, and hyperlipidemia. Had lipid panel in Dec 2022, and repeat lipid drawn this morning. Doing well from cardiac standpoint, as he denies chest pain, SOB, and palpitations. Patient Active Problem List Diagnosis Chest pain NSTEMI (non-ST elevated myocardial infarction) ([facility]) Obesity Diabetes mellitus, type II, insulin dependent ([facility]) Respiratory insufficiency Hypomagnesemia Hypertension Hyperlipidemia Postoperative atrial fibrillation ([facility]) Coronary artery disease involving ramona coronary artery of ramona heart without angina pectoris Chronic systolic heart failure ([facility]) History of coronary artery bypass graft Acquired buried penis Erectile dysfunction associated with type 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 ([facility]) Scarring of penis Family History Problem Relation [...] He was admitted in December 2021 to [facility] with chest pain and diagnosed with [...] place, and time. Psychiatric: (more content not included)...[facility]02-28-2024 Miscellaneous Notes* Telephone Encounter - Noy Mary RN - 06/14/2023 10:03 AM EST error documented in this encounterProvidence Hospital02-28-2024 Miscellaneous Notes* Telephone Encounter - Noy Mary RN - 06/14/2023 9:44 AM EST Called Caden Wills and LVM to confirm surgery date of 07/[address] Alberto. Discussed pre op testing on 07/26 in [place], or he could make two trips. Asked him to confirm Asked patient to confirm receipt, and voice any questions or concerns. Number provided. Noy Mary RN [facility] NoteHNO ID: [id number] Author: JIAN ALBERTO MD Service: ? Author Type: Physician Type: Progress Notes Filed: 05/03/2023 14:28 Note Text: [facility] NEW PATIENT HISTORY AND PHYSICAL EXAM PATIENT INFO: Caden Wills 63 year old REFERRING M.D.: Antonia Bush MD [address] [place] [phone] This consult was requested by Dr. Bush for an opinion regarding buried penis and erectile dysfunction, and my final recommendations will be communicated to the requesting health care provider by way of the shared medical record for internal providers or letter via the [employer] for external providers. 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 , interested in future sexual life. [...] excision of the sc (more content not included)...[facility]01-17-2024 NotePatient Outreach (UROLMN) CADEN WILLS ([id number]) 1960 M Date Time Provider Department 05/03/23 JIAN ALBERTO During your visit today, we recorded the following information about you: Allergies As of Date: 05/03/2023 (No Known Allergies) Date Reviewed: 05/03/2023 Reviewed by: Claudia Burt OCCA - Fully Assessed Visit Diagnosis:Screening for genitourinary condition [Z13.89] Order(s):URINALYSIS, REFLEX MICROSCOPIC [HTO1575] Order #: [id number]. #:[id number] Prescriptions as of 05/08/2023 - metFORMIN ER [...] tablet by mouth every afternoon. - omega 6-cht-jnh-fish oil (FISH OIL) 100-160-1,000 mg cap Take 1,000 mg by mouth. - bumetanide (BUMEX ORAL) Take by mouth. Problem List As Of Date 05/03/2023 Noted Resolved Acquired buried penis [N48.83] 05/03/2023 Scarring of penis [N48.6] 05/03/2023 Erectile dysfunction associated with type 2 beverley*05/03/2023 Encounter Status:Closed by EPIC, PRODUSER on 05/08/23[facility] 05-02-2023 Evaluation note* Encounter Date Diagnosis Assessment Notes Treatment Notes Treatment Clinical Notes Apr, Subungual hematoma of finger of right hand, initial encounter (ICD-10 - S60.10XA) Patient instructed on washing with soap and applying ointment to help soften remaining callused area. Progress activity as tolerated [facility] Other 01-03-2024 Evaluation note* Encounter Date Diagnosis [...] are maintaining regular scheduled appts with their patents examiner. Post operative AF Amiodarone and Eliquis d/c [...] Referred to [facility] for evaluation and treatment [facility] Other 12-12-2023 Evaluation note* Encounter Date Diagnosis Assessment Notes Treatment Notes Treatment Clinical Notes Mar, Subungual hematoma of finger of right hand, initial encounter (ICD-10 - S60.10XA) Patient instructed on washing with soap and applying ointment to help soften scab area. [facility] Other 12-06-2023 Hospital Discharge instructions Patient Education [...] Follow these instructions at home: Medicines Take spus-hvx-zldaanw and prescription medicines only as told by [...] provider. Document Revised: 06/30/2021 Document Reviewed: 06/30/2021 [employer] Patient Education 2022 [employer]. Follow Up Care 11/25/2022 08:22:24 With:ROXANN BARR, Antonia Sharma, URL Address: [address] [place], [place] [id number]- When: Unknown [facility] [...] BMI 39.0-39.9,adult (ICD-10 - Z68.39) see above [facility] Other 11-08-2023 Evaluation note* Encounter Date Diagnosis Assessment Notes Treatment Notes Treatment Clinical Notes Feb, Subungual hematoma of finger of right hand, initial encounter (ICD-10 - S60.10XA) Patient instructed to continue with daily soaking. Keep covered while at work [employer] Other 10-25-2023 NoteIn light of elevated lipid levels- LDL > 50-70 I added zetia to regime. Will repeat lipid level again in 3 months. Staff to notify pt Robyn Miller ELDERLY SITTER Division of Cardiology, [facility]- [phone] Pager- [phone] Email- [email or web address]10-06-2023 Evaluation note* Encounter Date Diagnosis Assessment Notes Treatment Notes Treatment Clinical Notes Jan, Crushing injury of right index finger, initial encounter (ICD-10 - S67.190A) Elevated and rest. XR for FB, abscess, fx Jan, Abscess of finger of right hand (ICD-10 - L02.511) Warm soaks and elevate. Begin antibiotics. Jan, Type 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 with hyperglycemia (ICD-10 - E11.65) Increases risk of serious infection. [facility] Other 08-25-2023 Evaluation note* Encounter Date Diagnosis Assessment Notes Treatment Notes Treatment Clinical Notes Nov, Type 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 with hyperglycemia (ICD-10 - E11.65) [facility] Other 08-14-2023 Reason for visit NarrativeTKM - REFERRAL UROLOGY - NEED TO INFORM PATIENT 11/28/22[place] Other 08-10-2023 Evaluation note* Encounter Date Diagnosis [...] hyperglycemia, or diabetes medication issues. 6. Prescriptions: [facility]: Sample shivani 2 cgm given today. 7. Prescriptions will not be filled unless you are compliant with follow up appointments or have a follow up appointment scheduled as ordered by your provider. Refills should be requested at the time of your visit. Nov, Dietary counseling and surveillance (ICD-10 - Z71.3) see above Nov, HTN (hypertension) (ICD-10 - I10) On arb. Nov, senior living current use of insulin (ICD-10 [...] dysfunction (ICD-10 - N52.9) referral to urology [facility] Other 08-10-2023 Evaluation note* Encounter Date Diagnosis Assessment Notes Treatment Notes Treatment Clinical Notes Nov, Erectile dysfunction (ICD-10 - N52.9) [facility] Other 07-03-2023 Evaluation note* Encounter Date Diagnosis [...] are maintaining regular scheduled appts with their patents examiner. No bleeding complications Oct, Type 2 diabetes [...] (ICD-10 - Z12.5) Yearly LADAN and PSA [facility] Other 05-08-2023 Evaluation note* Encounter Date Diagnosis [...] (hypertension) (ICD-10 - I10) On arb. August, senior living current use of insulin (ICD-10 [...] last visit, continue with weight loss efforts [facility] Other 04-03-2023 Evaluation note* Encounter Date Diagnosis Assessment Notes Treatment Notes Treatment Clinical Notes Jul, ASHD (arteriosclerot ic heart disease) (ICD-10 - I25.10) This patient is stable without activity related CP, dyspnea or lightheadedness. They are instructed to continue exercise and AHA diet plan. Instructed to continue exercise 2-3x weekly. After completiong CR plans on continuing at [facility] Jul, Primary hypertension (ICD-10 - [...] (coronary artery bypass graft) (ICD-10 - Z95.1) [facility] Other 02-02-2023 Evaluation note* Encounter Date Diagnosis Assessment Notes Treatment Notes Treatment Clinical Notes May, Type 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 with hyperglycemia (ICD-10 - E11.65) 1. Controlled, a Type 2 diabetes with A1c of 6.9% 2. Blood glucose levels according to Nexopia 2 cgm download 05/06/22-05/19/22: Avg glucose 189. [...] carbs while at work. He will see patents examiner Monday to see if he will be [...] (hypertension) (ICD-10 - I10) On arb. May, senior living current use of insulin (ICD-10 - Z79.4) May, Mixed hyperlipidemia (ICD-10 - E78.2) 01/2022 LDL 34 on statin- at target May, BMI 40.0-44.9, adult (ICD-10 - Z68.41) May, Vitamin B 12 deficiency (ICD-10 - E53.8) 02/05 vit b 12 227 at target May, Albuminuria (ICD-10 - R80.9) 02/05 m/a cr ratio 68. Reviewed importance of glucose/bp control to prevent further nephropathy [facility] Other 01-18-2023 Evaluation note* Encounter Date Diagnosis [...] may warrant EGD to r/o H. Pylori [facility] Other 11-11-2022 NotePROCEDURE: XR FOOT RT MIN 3 VIEWS HISTORY: Pain in right foot ; acute right toe pain; stubbed toe COMPARISON: XR foot right 08/25/2016 FINDINGS: BONES:Prior amputation of the second toe. No fracture, dislocation, bone lesion. SOFT TISSUES:Atherosclerotic disease. No appreciable soft tissue swelling or radiopaque foreign body. EFFUSION:None visible. OTHER: Negative. IMPRESSION: 1. No acute bone abnormality. Electronically authenticated by: HEAEVNLY LOUIS Date: 2022-02-25 06:39[facility]07-07-2022 Evaluation note* Encounter Date Diagnosis Assessment Notes Treatment Notes Treatment Clinical Notes Oct, Type 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 with hyperglycemia (ICD-10 - E11.65) 1. Uncontrolled, a Type 2 diabetes with A1c of 7.5% 2. Blood glucose levels above target. According to Nexopia 2 cgm download 10/08/21-10/21/21: Avg glucose 197. [...] (hypertension) (ICD-10 - I10) On jonathan. 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 Oct, BMI 40.0-44.9, adult (ICD-10 - Z68.41) 4 pound weight loss from last visit, continue with weight loss efforts Oct, Vitamin B 12 deficiency (ICD-10 - E53.8) [facility] Other 04-27-2022 Evaluation note* Encounter Date Diagnosis [...] days. Jul, Hematuria, unspecified (ICD-10 - R31.9) [facility] Other 03-15-2022 Evaluation note* Encounter Date Diagnosis Assessment Notes Treatment Notes Treatment Clinical Notes Jun, Type 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 with hyperglycemia (ICD-10 - E11.65) 1. Uncontrolled, a Type 2 diabetes with A1c of 7.4% 2. Blood glucose levels above target. According to [employer] cgm download 06/16/21-06/29/21: Avg glucose 172. >250- [...] (hypertension) (ICD-10 - I10) On jonathan. Jun, senior living current use of insulin (ICD-10 - Z79.4) Jun, Mixed hyperlipidemia (ICD-10 - E78.2) 11/2020 LDL 97.6 Triglycerides 347, on fenofibrate, Recommend moderate intensity statin f/u with pcp for further recommendation. Jun, BMI 40.0-44.9, adult (ICD-10 - Z68.41) see above [facility] Other 01-18-2022 Evaluation note* Encounter Date Diagnosis Assessment Notes Treatment Notes Treatment Clinical Notes Apr, Type 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 with hyperglycemia (ICD-10 - E11.65) [facility] Other 12-08-2021 Evaluation note* Encounter Date Diagnosis Assessment Notes Treatment Notes Treatment Clinical Notes Mar, Type 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 with hyperglycemia (ICD-10 - E11.65) 1. Controlled, a Type 2 diabetes with A1c of 6.6% 2. Blood glucose levels improved from last visit. According to Nexopia 2 cgm download 03/11/21-03/24/21: Avg glucose 162. >250- 1%, >180-29%, 70-180-70%, <70-0%, <54-0%. CV 22.5%. Reviewed download with pt. readings above target from missed meal dose or late meal dose. Discussed with pt trial lyumjev which he could take 5 minutes before meal up to 20 minutes after meal. He is agreeable, reviewed this would take place of [employer]. He verbalizes understanding. Pt with history of [...] (hypertension) (ICD-10 - I10) On jonathan. 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 Mar, BMI 40.0-44.9, adult (ICD-10 - Z68.41) see above [facility] Other 09-22-2021 Evaluation note* Encounter Date Diagnosis Assessment Notes Treatment Notes Treatment Clinical Notes Dec, Type 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 with hyperglycemia (ICD-10 - E11.65) Erwin came in today for evaluation of his Shivani report after returning to work and continuing to use the device. Erwin is happy with the system and wants us to send a prescription to [facility] in [place]. Erwin's BG has averaged 163 for the [...] at MidNight. No further changes. Valery JOSEPH, JIGGER ARTISAN-C, BC-ADM [facility] 9facts Other Chief complaint+Reason for visit Narrative* Reason for Visit BMI 38.0-38.9,adult Dietary counseling and surveillance Mixed hyperlipidemia Vitamin B 12 deficiency [facility] Work Phone: Evaluation + Plan [facility]Exec[facility] Evaluation noteNo InformationNortPenn State [facility] 9facts Other Evaluation noteNo assessment information available [facility] Work Phone: Evaluation note* Diagnosis Screening for genitourinary condition Screening for other and unspecified genitourinary condition documented in this encounter [facility] note* Diagnosis Coronary artery disease involving ramona coronary artery of ramona heart, unspecified whether angina present- Primary History of non-ST elevation myocardial infarction (NSTEMI) Old myocardial infarction Hx of CABG Postsurgical aortocoronary bypass status Primary hypertension Unspecified essential hypertension Other hyperlipidemia [facility]* Diagnosis Onset Date Resolution Status BMI 39.0-39.9,adult acute Dietary counseling and surveillance acute Mixed hyperlipidemia acute Vitamin B 12 deficiency acut e Chronic HFrEF (heart failure with reduced ejection fraction) acute Hypertension acute Ischemic cardiomyopathy acut e Paroxysmal atrial fibrillation acute Type 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 with diabetic polyneuropathy acute Type 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 with hyperglycemia acute [facility] Work Phone: Evaluation note* Diagnosis Pre-operative examination- Primary Preoperative examination, unspecified Primary hypertension Unspecified essential hypertension Hyperlipidemia, unspecified hyperlipidemia type Coronary artery disease involving coronary bypass graft of ramona heart without angina pectoris Chronic systolic CHF (congestive heart failure) (HCC) Chronic systolic heart failure Paroxysmal atrial fibrillation (HCC) Atrial fibrillation Gastroesophageal reflux disease, unspecified whether esophagitis present Type 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 with other specified complication, with long-term current use of insulin ([facility]) Class 2 obesity due to excess calories [...] mellitus, with long-term current use of insulin ([facility]) Stable on Insulin glargine 60 units daily, [...] note 06/19/23 notes the following, Echo 03/30/22 ([facility]) - Global LV systolic function is difficult to assess but appears preserved, estimated ejection fraction is 55 to 60%, unable to accurately evaluate wall motion abnormalities. * Assessment & Plan Note - Kevin Goldsmith APRN.CNP - 07/27/2023 2:29 PM EDT Associated Problem(s): Coronary artery disease involving coronary bypass graft of ramona heart without angina pectoris CAD, hx of [place] s/p CABG x 5 in Dec 2021. [...] cardiac events (< 1% chance of , [place], CHF, malignant ventricular arrhythmias or high grade [...] BP today 114/66. documented [facility] this [facility]* Diagnosis Acquired buried penis- Primary Other specified disorder of penis [facility] this [facility]* Diagnosis Acquired buried penis- Primary Other specified disorder of penis Scarring of penis Other specified disorder of penis [facility]* Diagnosis Screening for genitourinary condition Screening for other and unspecified genitourinary condition documented [facility]* Diagnosis Onset Date Resolution Status Chronic HFrEF (heart failure with reduced ejection fraction) acute Hypertension acute Ischemic cardiomyopathy acut e Mixed hyperlipidemia acute Type 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 wit h diabetic polyneuropathy acute Type 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 with hyperglycemia acute Screening PSA (prostate specific antigen) noneactive Wellness examination noneact [facility] Work Phone: Evaluation note* Diagnosis Onset [...] Mixed hyperlipidemia acute Vitamin B 12 deficiency [facility] Work Phone: Evaluation note* Diagnosis Onset Date Resolution Status BMI 38.0-38.9,adult acute Dietary counseling and surveillance acute Mixed hyperlipidemia acute Vitamin B 12 deficiency [facility] Work Phone: History general Narrative - Reported* Type Description Date Medical History diabetes mellitus Medical History hypertension Medical History pancreatitis Medical History HLP Medical History R foot ulcer Surgical History heart stent Surgical History RIGHT FOOT SECOND TOE AMPUTATED 07/03 Hospitalization History see above Hospitalization History Gastric issues 03/2017 [facility] 9facts Other Hisemjp general Narrative - Reported* Type Description Date Medical History diabetes mellitus Medical History hypertension Medical History pancreatitis Medical History HLP Medical History R foot ulcer Surgical History heart stent Surgical History RIGHT FOOT SECOND TOE AMPUTATED 07/03 Surgical History 5 Bypass surgery [facility] 12/31/2021 Hospitalization History see above Hospitalization History Gastric issues 03/2017 Hospitalization History [facility] 12/2021 Eventable Other Hisdqwn general Narrative - Reported* Type Description Date Medical History Heart failure with preserved eje ction fraction Medical History Acute prostatitis Medical History ASHD (arteriosclerotic heart dis ease) Medical History Balanitis Medical History Transient atrial fibrillation Medical History Unspecified open wou nd of unspecified toe(s) with damage to nail, subsequent encounter Medical History Type 2 diabetes david itus with diabetic polyneuropathy, unspecified whether mcfp insulin use Medical History senior living current use of insulin Medical History S/P [...] versity Espinosa, CABG.4-5 VESSELS 12/31/2021 Surgical History [facility] PTCA/STENT LAD 2007 Surgical History COLONOSCOPY Hospitalization History see above Hospitalization History Gastric issues 03/2017 Hospitalization History [facility] surgery 12/2021 Eventable Other Hospital course Narrative No data available for this section [facility] Progress note No data available for this section [facility] Reason for referral (narrative) Referred by: ROXANN BARR, Antonia Sharma [facility] Reggsr for referral (narrative)* Outpatient Procedure (Routine) - Closed Specialty Diagnoses / Procedures Referred By Elda santizo [facility] Diagnoses Coronary artery disease involving ramona coronary artery of ramona heart, unspecified whether angina present History of non-ST elevation myocardial infarction (NSTEMI) Hx of CABG Primary hypertension Other hyperlipidemia Procedures ECG COMPLETE ECG ROUTINE ECG W/LEAST 12 LDS W/I&R Ligia Colmenares MD [address] [place] [address] [facility] [address] [place] [address] Referral ID Status Reason Start Date Expiration Date V isits Requested Visits Authorized [id number] Closed Auto-Generate d Referral 06/16/2023 06/15/2024 1 1 [facility] Chief Complaint and Reason for Visit [...] of right hand (L02.511) Referral Organization [facility] Yola membreno Referring Provider First Name Fahad Referring Provider Last Name Yola Referring Provider Specialty Internal Me dicine Referred Organization [facility] Malini Ortho pedics Referred Provider Yarelis Santacruz Referred Address [address] [place] [address] Arabella [place], [place],[address] Referred Provider Specialty Orthopedic S urgery Referral [...] Diagnosis 1 Erectile dysfunction (N52.9) Referral Organization [facility] Referring Provider First Name Yamilex Referring Provider Last Name Bull Referring Provider Specialty Nurse Pract itioner Referred Organization Unknown Facility Referred Provider Antonia Bush Referred Provider Specialty Urology Referral Priority Routine Referral Appointment Date 2023-03-22 General Notes Tracie Alvarado 11/15 08:20:19 AM >Spoke to Poonam and patient scheduled for [place] office on 03/22/23 at 11am at [address] [place] [address] [address] in [facility] 3. Traice Alvarado 11/28/2022 09:35:22 AM >Text message sent to patient requesting he call me for Referral details. Tracie Alvarado 11/28/2022 12:00:13 PM >Patient returns my call and is informed of appt. 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 Reason Comments Cardiac Clearance and new patient Specialty Diagnoses / Procedures Referred By Elda t Referred To [facility] Diagnoses Coronary artery disease involving ramona coronary artery of ramona heart, unspecified whether angina present History of non-ST elevation myocardial infarction (NSTEMI) Hx of CABG Primary hypertension Other hyperlipidemia Procedures ECG COMPLETE ECG ROUTINE ECG W/LEAST 12 LDS W/I&R Ligia Colmenares MD [address] [place] [address] [facility] [address] [place] [address] Referral ID Status Reason Start Date Expiration Date V isits Requested Visits Authorized [id number] Closed Auto-Generate d Referral 06/16/2023 06/15/2024 1 [...] Care Provider Active Tondra K Mapus , APPARATUS CLEANER Attending Provider Active Team Status: Active Member Role Status Dates Fahad Aceves DO Primary Care Provider Active Tondra K Palomous , APPARATUS CLEANER Attending Provider Active Market Research Coordinator Relationship Specialty Start Date End Date Antonia Bush [address] [place] [address] Referring Urology 03/25/23 Market Research Coordinator Relationship Specialty Start Date End Date Antonia Bush [address] [place] [address] Referring Urology 03/25/23 Market Research Coordinator Relationship Specialty Start Date End Date Antonia Bush [address] [place] [address] Referring Urology 03/25/23 Team Status: Active Member Role Status Dates Fahad Aceves DO Primary Care Provider Active Start: June 19, 2023 Tondra K Bull , APPARATUS CLEANER Attending Provider Active Start: June 19, 2023 Team Status: Inactive Member Role Status Dates Fahad Aceves DO Primary Care Provider Active Start: June 21, 2023 End: June 21, 2023 Tondra K Palomous , APPARATUS CLEANER Attending Provider Active Start: June 21, 2023 End: June 21, 2023 Team Status: Inactive Member Role Status Dates Fahad Aceves DO Primary Care Provide r, Attending Provider Active Start: July 11, 2023 End: July 11, 2023 Market Research Coordinator Relationship Specialty Start Date End Date Fahad Aceves [facility] [place] [address] PCP - General Internal Medicine 07/18/23 Antonia Bush [address] [place] [address] Referring Urology 03/25/23 Market Research Coordinator Relationship Specialty Start Date End Date Fahad Aceves DO [address] [place] [address] PCP - General Internal Medicine 07/18/23 Antonia Bush MD [address] [place] [address] Referring Urology 03/25/23 Market Research Coordinator Relationship Specialty Start Date End Date Fahad Aceves DO [address] [place] [address] PCP - General Internal Medicine 07/18/23 Antonia Bush MD [address] [place] [address] Referring Urology 03/25/23 Market Research Coordinator Relationship Specialty Start Date End Date Fahad Aceves DO [address] [place] [address] PCP - General Internal Medicine 07/18/23 Antonia Bush MD [address] [place] [address] Referring Urology 03/25/23 Market Research Coordinator Relationship Specialty Start Date End Date Fahad Aceves DO [address] [place] [address] PCP - General Internal Medicine 07/18/23 Antonia Bush MD [address] [place] [address] Referring Urology 03/25/23 Market Research Coordinator Relationship Specialty Start Date End Date Fahad Aceves DO [address] [place] [address] PCP - General Internal Medicine 07/18/23 Antonia Bush MD [facility] [place] [address] Referring Urology 03/25/23 Team Status: Inactive Member [...] and content) DATE CREATED AUTHOR 08/31/2022 [facility] DATE CREATED AUTHOR AUTHOR'S ORGANIZ ATION 06/01/2023 [facility] DATE CREATED AUTHOR AUTHOR'S ORGANIZ ATION 09/19/2023 [facility] DATE CREATED AUTHOR AUTHOR'S ORGANIZ ATION 01/16/2024 [facility] DATE CREATED AUTHOR AUTHOR'S ORGANIZ ATION 01/29/2024 [facility] Source Comments (unrecognize d section and content) In the event this informatio n is protected by the Federal Confidentiality of Alcohol and Drug Abuse Patient Records regulations: The Federal rules restrict any use of the information to criminally investigate or prosecute any alcohol or drug abuse patient.[facility] HospitalIn the event this information is protected by the Federal Confidentiality of Alcohol and Drug Abuse Patient Records regulations: The Federal rules restrict any use of the information to criminally investigate or prosecute any alcohol or drug abuse patient.[facility] HospitalIn the event this information is protected by the Federal Confidentiality of Alcohol and Drug Abuse Patient Records regulations: The Federal rules restrict any use of the information to criminally investigate or prosecute any alcohol or drug abuse patient.[facility] HospitalIn the event this information is protected by the Federal Confidentiality of Alcohol and Drug Abuse Patient Records regulations: The Federal rules restrict any use of the information to criminally investigate or prosecute any alcohol or drug abuse patient.[facility] HospitalIn the event this information is protected by the Federal Confidentiality of Alcohol and Drug Abuse Patient Records regulations: The Federal rules restrict any use of the information to criminally investigate or prosecute any alcohol or drug abuse patient.[facility] HospitalIn the event this information is protected by the Federal Confidentiality of Alcohol and Drug Abuse Patient Records regulations: The Federal rules restrict any use of the information to criminally investigate or prosecute any alcohol or drug abuse patient.[facility] HospitalIn the event this information is protected by the Federal Confidentiality of Alcohol and Drug Abuse Patient Records regulations: The Federal rules restrict any use of the information to criminally investigate or prosecute any alcohol or drug abuse patient.[facility] HospitalIn the event this information is protected by the Federal Confidentiality of Alcohol and Drug Abuse Patient Records regulations: The Federal rules restrict any use of the information to criminally investigate or prosecute any alcohol or drug abuse patient.[facility] HospitalIn the event this information is protected by the Federal Confidentiality of Alcohol and Drug Abuse Patient Records regulations: The Federal rules restrict any use of the information to criminally investigate or prosecute any alcohol or drug abuse patient.[facility] HospitalIn the event this information is protected by the Federal Confidentiality of Alcohol and Drug Abuse Patient Records regulations: The Federal rules restrict any use of the information to criminally investigate or prosecute any alcohol or drug abuse patient.[facility] HospitalIn the event this information is protected by the Federal Confidentiality of Alcohol and Drug Abuse Patient Records regulations: The Federal rules restrict any use of the information to criminally investigate or prosecute any alcohol or drug abuse patient.[facility] FOR RECORDS PERTAINING TO PATIENTS WHO [...] THE PRIMARY CLINICAL RECORDS. [facility] [employer] [facility]. provides no warranty or guarantee of the accuracy or completeness of information in this document.
[2024-07-13 07:07] LABS: Basophils Percent Auto 0.5 % (0.2-2.0); Eosinophils Absolute Auto 0.3 10^3/uL (0.0-0.7); Eosinophils Percent Auto 3.8 % (0.9-7.0); Hematocrit 48.9 % (42.0-54.0); Hemoglobin 16.2 g/dL (14.0-18.0); Immature Granulocytes Abs Auto 0.04 10^3/uL (0.00-0.03); Immature Granulocytes Pct Auto 0.5 % (0.0-0.5); Lymphocytes Absolute Auto 1.9 10^3/uL (1.2-3.8); Lymphocytes Percent Auto 22.3 % (20.5-60.0); Mean Corpuscular HGB Conc 33.1 g/dL (29.9-35.2); Mean Corpuscular Hemoglobin 28.3 pg (25.9-34.0); Mean Corpuscular Volume 85.5 fL (80.0-94.0); Mean Platelet Volume 9.8 fL (9.5-13.5); Monocytes Absolute Auto 0.9 10^3/uL (0.3-0.8); Monocytes Percent Auto 11.2 % (1.7-12.0); Neutrophils Absolute Auto 5.1 10^3/uL (1.4-6.5); Neutrophils Percent Auto 61.7 % (43.0-75.0); Platelet Count 271 10^3/uL (150-450); Red Blood Count 5.72 10^6/uL (4.70-6.10); Red Cell Distribution Width 15.9 % (11.0-15.0); White Blood Count 8.3 10^3/uL (4.0-11.0)
[2024-07-13 07:35] LABS: Alanine Aminotransferase 30 U/L (16-63); Albumin Globulin Ratio 0.8; Albumin Level 3.3 g/dL (3.4-5.0); Alkaline Phosphatase 135 U/L (46-116); Anion Gap 12.9; Aspartate Amino Transferase 19 U/L (15-37); BUN Creatinine Ratio 18.3; Bilirubin Total 0.4 mg/dL (0.2-1.0); Calcium 9.2 mg/dL (8.5-10.1); Carbon Dioxide 29.1 mmol/L (21.0-32.0); Chloride 104 mmol/L (98-107); Chol HDL Ratio 3.2; Cholesterol 111 mg/dL (<=200); Estimated GFR (African America >60 (>=60 mL/min/1.73m^2); Estimated GFR (Non-African Ame >60 (>=60 mL/min/1.73m^2); Globulin 4.2 g/dL; Glucose 168 mg/dL (74-106); HDL Cholesterol 35 mg/dL (40-60); Sodium 142 mmol/L (136-145); Total Protein 7.5 g/dL (6.4-8.2); Triglycerides 198 mg/dL (<=150); VLDL CHOLESTEROL 39.6 mg/dL
== END 2024-07-13 06:31 | disposition home or self-care (01) ==
PROVIDERS: PCP Internal Medicine; Visit Provider Internal Medicine Interventional Cardiology
DX: I50.32 Chronic diastolic (congestive) heart failure (principal); I25.10 Atherosclerotic heart disease of native coronary artery without angina pectoris
CPT/HCPCS: 36415; 80053; 80061; 85025

== ENCOUNTER 2024-08-14 16:03 | Outpatient (OUT) | payer OTHER, SELFPAY | END 2024-08-14 16:04 | disposition home or self-care (01) | LOC: WC 16:04 | PROVIDERS: PCP Internal Medicine; Visit Provider Physician Assistant | DX: L60.9 Nail disorder, unspecified (principal) | CPT/HCPCS: G0463 ==

== ENCOUNTER 2024-08-28 15:45 | Outpatient (OUT) | payer OTHER, SELFPAY | END 2024-08-28 15:46 | disposition home or self-care (01) | LOC: WC 15:46 | PROVIDERS: PCP Internal Medicine; Visit Provider Physician Assistant | DX: L60.9 Nail disorder, unspecified (principal) | CPT/HCPCS: G0463 ==

== ENCOUNTER 2024-09-19 15:48 | Outpatient (OUT) | payer OTHER, SELFPAY ==
[2024-09-19 16:09] LABS: Creatinine Urine Random 78.24 mg/dL (20.00-300.00); Microalbum Creatinine Ratio Ur 29.3 mg/g (0.0-29.9); Microalbumin Urine Random 2.3 mg/dL (<=30.0)
[2024-09-21 04:07] LABS: Vitamin B12 601 pg/mL (232-1245)
== END 2024-09-19 15:49 | disposition home or self-care (01) ==
LOC: LAB 15:49
PROVIDERS: PCP Internal Medicine
DX: E53.8 Deficiency of other specified B group vitamins (principal); E11.42 Type 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 with diabetic polyneuropathy; Z79.4 Long term (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
CPT/HCPCS: 36415; 82043; 82570; 82607

== ENCOUNTER 2025-02-04 09:55 | Outpatient (OUT) | payer OTHER, SELFPAY ==
--- OUTSIDE RECORDS SUMMARY | 2025-02-04 05:38 | XMS_ITS | Continuity of Care Document ---
Author Organization [facility] Address [address] [place] [address] Phone Care Team Providers Care Tube Cutter Name Role Phone Fahad Salinas DO Primary Care Provider Rhona Gottlieb APRN Attending Provider Fahad Salinas DO Attending Provider Care Teams Patient Care Team Team Status: Active Member Role/Relationship Status Dates Fahad Salinas DO Primary Care Provider Active Visit Care Team Team Status: Inactive Member Role/Relationship Status Dates Fahad Salinas DO Primary Care Provider Active Start: November 27, 2024 End: November 27, 2024Thaddeus Orellana ProviderActiveStart: November 27, 2024 End: November 27, 2024 Patient Care Team Team Status: Inactive Member Role/Relationship Status Dates Fahad Salinas DO Primary Care Provider Active Start: February 04, 2025 End: February 04rodney Salinas DOAttending ProviderActiveStart: February 04, 2025 End: February 04, 2025 Chief Complaint and Reason for Visit Chief Complaint Admit Date back pain/possible broken pelvis February 04, 2025 9:04am Reason for Visit Admit Date BMI 37.0-37.9, adult November 27, 2024 3 :59pm Dietary counseling and surveillance Augu 2024 3:59pm Mixed hyperlipidemia November 27, 2024 3 :59pm Vitamin B 12 deficiency November 27 3:59pm HTN (hypertension) November 27, 2024 3: 59pm Type 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 November 27 3:59pm Accidental fall February 04, 2025 9 :04am Low back pain February 04, 2025 9 :04am Pain in joint involving left pelvic stephan on and thigh February 04, 2025 9:04am Allergies, Adverse Reactions, Alerts Allergen Type Severity Reaction Last Updated Verified Status empagliflozin Allergy Unknown uti February 04, 2025 9:12am Yes Active icosapent ethyl Allergy Unknown n/v February 04, 2025 9:12a m Yes Active No Known Allergies Allergy Unknown February 04, 2025 9:12amYesActive Social History Smoking Status Status Start Date End Date Date of Observa tion Never smoked tobacco (finding) June 19, 2023 8:39am Observation Status Observation Response Date of Response Legal Sex Male (finding) Sex Assigned At BirthMaleSeptember 1959 Family History Relationship Condition Age at Onset Recorded Date/T naz father Unknown HypertensionUnknownHistory of strokeUnknownmotherDeceasedUnknownDiabetes mellitusUnknownHypertensionUnknown Problems Active Problems Problem Diagnosis/Recorded Date Onset Date Status C omments Heart failure with improved ejection fraction (HFimpEF) July 15, 2024 6:17pm Unknown Active Echo: LVEF 50%, WARREN, normal RV size/function - 06/2024 Type 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 with hyperglycemia July 09, 2023 6:43pm Unknown Active Type 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 with diabetic polyneuropathyMar 2023 6:43pm UnknownActiveLow back painOctober 2024 9:28amUnknownActiveCrush injury of footJanuary 2024 9:38pmUnknownActiveVitamin B 12 deficiencyMarch 2023 3:47pmUnknownActiveDietary counseling and surveillanceK[facility]tering [facility] 2023 3:44pm UnknownActivePain in joint involving left pelvic region and thighOctober 2024 9:28amUnknownActiveLeft leg painJanuary 2024 6:19pmUnknownActiveMixed hyperlipidemiaFeuary 2023 10:05amUnknownActiveIschemic cardiomyopathy June 12, 2023 10:05amUnknownActivePCI/stent LAD - 2007, CABG x - 12/2021, Echo: LVEF 50%, normal RV size/function - 06/2024,Chronic HFrEF (heart failure with reduced ejection fraction)June 12, 2023 10:05amUnknownActiveEcho: LVEF 50%, WARREN, normal RV size/function - MI 37.0-37.9, adultAugust 2024 5:13pmUnknownActiveBMI 38.0-38.9,adultOctober 2023 5:17pmUnknown ActiveParoxysmal atrial fibrillationFebruary 2023 10:05amUnknownActive Accidental fallOctober 2024 9:30amUnknownActiveHypertensionMarch 2023 6:43pmUnknownActiveCarotid US: < 50% B/L - besityJanuary 2024 6:17pmUnknownActiveOsteoarthritis of foot, leftJanuary 2024 9:39pmUnknown ActiveInactive/Resolved Problems Problem Diagnosis/Recorded Date Onset Date Status C omments Phimosis of penis July 11, 2023 3:58pm Unknown Resol marya Contusion of finger with damage to nailFebruary 2023 10:09amUnknown ResolvedBMI 39.0-39.9,adultMarch 2023 5:32pmUnknownResolved Medications Medication Status Dose Units Route Directions Qty Days Refills S tart Date Stop Date End Date Reason(s) Instructions Adherence Pantoprazole 40 mg tablet,delayed release (DR/EC) Disc ontinued 0 .ROUTE.NUGJRIO223Bww2023 1:04pmMay 2024 7:45amTAKE 1 TABLET BY MOUTH ONCE A DAY ON EMPTY STOMACH FOLLOWED IN 30 MINUTES WITH BREAKFAST 90Flash Glucose Sensor (Freestyle Addie 2 Sensor) kitDiscontinued0.ROUTE.SVKVIRW81Alvo 2023 7:58amJuly 2024 8:33amCHANGE EVERY 14 DAYSAtorvastatin 80 mg tabletDiscontinued0.ROUTE.SXSVJAV281Hqeqihpuw 2nd, 2024 8:42amAugust 2024 7:40amTAKE 1 TABLET BY MOUTH EVERY DAY IN THE EVENINGMetformin 500 mg tablet extended release 24 buBzqska224OQQMNydkc times rovjv8376Pywbfqgva2023 7:07amType 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 with hyperglycemia Type 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 with hyperglycemia FDC (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Complies with drug therapyInsulin Glargine U- 300 Conc 300 unit/mL (1.5 mL) insulin jhfFyhporvgjbck33LDOSMGDSPLFgxln at pdghbak875Xkpotaor 2023 1:35pmAugust 2024 4:43pmType 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 with hyperglycemia Type 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 with hyperglycemia FDC (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 DMAmiodarone 200 mg tabletActive0.ROUTE.QJQWWIX718Varivkob 2024 8:37amTAKE 1 TABLET BY MOUTH EVERY DAYComplies with drug therapyGabapentin 100 mg capsule Discontinued0.ROUTE.NXDASVR236Hasep 2024 8:44amMarch 2024 12:19pmTAKE 1 CAPSULE BY MOUTH AT BEDTIMEGabapentin 100 mg oantbldFemecg617ZMKWCoyot40000 July 10, 2024 12:18pmComplies with drug therapyPantoprazole 40 mg tablet,delayed release (DR/EC)Active0.ROUTE.BYDHZAZ963Ist 2024 7:45amTAKE 1 TABLET BY MOUTH ONCE A DAY ON EMPTY STOMACH FOLLOWED IN 30 MINUTES WITH BREAKFAST 90Complies with drug therapyBlood-Glucose Sensor (Freestyle Addie 2 Plus Sensor) deviceActive0.Vnthm69Omvx 2024 12:00amType 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 with hyperglycemia Type 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 with hyperglycemia FDC (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Use to monitor BG, Change every 15 days Atorvastatin 80 mg tabletActive0.ROUTE.AVOFPHZ179Znwmha 2024 7:40amTAKE 1 TABLET BY MOUTH EVERY DAY IN THE EVENINGComplies with drug therapyMetformin (Glucophage) 500 mg NavbybBlfcfedvcxyj7713CWXF4659Zyqfr 2018 12:00amMarch 2023 5:21pmDMAtenolol 25 mg xosrseYfznvukjezux22ZBKV6377Dcmcb 2018 12:00amMarch 2023 5:28pmHTNClopidogrel 75 mg evibnmBnuhdgdrlvty98MVDF4434 June 26, 2018 12:00amMarch 2023 5:28pmLisinopril 10 mg tablet Llpwiqphkoze90HTDR6477Jkcet 2018 12:00amMapromedica fost[facility] hospital 2023 5:29pmHTN Hydrochlorothiazide 25 mg zqptogCzehzxefecdg60SEQC7388Jwnpm 2018 12:00am June 21, 2023 5:29pmhtnInsulin Aspart U-100 100 unit/mL insulin pen DiscontinuedK[facility] 2018 12:00amMapromedica fostoria community hospital 2023 5:18pmFenofibrate Nanocrystallized 145 mg zzyhfxUghdqxpfgtmf658CQRP4343Sbbli 2018 12:00am June 21, 2023 5:29pmhigh cholesterolCanagliflozin 300 mg qtdlpeZmlpsadiatwy336 JRXE6012Ovhhf 2018 12:00amMapromedica fostoria community hospital 2023 5:28pmDMInsulin Glargine U-300 Conc 300 unit/mL (1.5 mL) insulin draNirhmnrlodpt01DNOVBGFPHWEypty at bedtime June 26, 2018 12:00[facility] 2023 5:27pmDMMetformin (Glucophage) 500 mg FexxxlUmlvsvoakrfu527YOSM2403Cnubo 2018 12:00amMapromedica fostoria community hospital 2023 5:29pmDM Aspirin (Lucio Low Dose Aspirin) 81 mg Tablet,Delayed Release (Dr/Ec)Hpbddn62NS PODailyMuab [facility] 2018 12:00amComplies with drug therapyMagnesium, Zinc, Vitamin DHitlktdyalfg2WEXPFCwglz at bedtimeK[facility] 2018 12:00[facility] 2023 5:29pmMultivitamin IuasdxIoyysb3JGLNOMgrsiQgogi 2018 12:00amComplies with drug therapyCinnamon Bark (Cinnamon) 500 mg CohlyojWkgusf799FHKSJiysn daily June 26, 2018 12:00amDMComplies with drug therapyNiacin 500 mg TabletActive 500MGPODaily at bedtimeK[facility] 2018 12:00amComplies with drug therapyInsulin Glargine U-300 Conc 300 unit/mL (1.5 mL) insulin aadZraaqoggizea67YVJDAPATJL Daily at bedtimeK[facility]tering [facility] 2023 5:18pmJuly 2023 5:07pmDMInsulin Glargine U-300 Conc 300 unit/mL (1.5 mL) insulin fcqPtdrtglkpfdo30HLLRMWBGKSDuhhj at bedtimeJuly 2023 5:07pmOctober 2023 4:43pmDMInsulin Glargine U-300 Conc 300 unit/mL (1.5 mL) insulin fykYunobqqyjudi13SGDYJHWSAGSdmdp at bedtime February 07, 2024 4:39pmOctober 2023 5:15pmDMGabapentin 100 mg capsule Wpiteiitjfxk256CJHVKohlr at zwvyxkd00678Ziylmjb 7th, 2025 1:00amJanuary 2024 5:24pmGabapentin 100 mg irtgvsqXxihsekneftz975PLEBFfvjp at anmjusl29072 April 23, 2024 5:24pmMarch 2024 8:44amAmiodarone 200 mg tablet Rtzgsksdjsav526XAUZNtaiiXifuhby 2023 12:00amFebruary 2024 8:37am Insulin Glargine U-300 Conc 300 unit/mL (1.5 mL) insulin uqdWnxfcpzzbqzy04HFZN SUBCUTDaily at fuxserp972Bgneqwt 2023 5:11pmDecember 2023 1:35pmType 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 with hyperglycemia Type 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 with hyperglycemia 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 (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 DMInsulin Lispro-Aabc 200 unit/mL (3 mL) insulin ogeSviijqxmncuo5BOPLHW.COMPLEX 543October 2023 5:12pmAugust 2024 4:43pmType 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 with hyperglycemia Type 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 with hyperglycemia FDC (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USE 36 UNITS BEFORE BREAKFAST/lunch, 38 BEFORE SUPPER PLUS ISS 1:10 BEFORE MEALS (AT BEDTIME IF >200 HALF DOSE) *UP TO 120 UNITS PER DAY* SubcutaneousDapagliflozin Propanediol (Farxiga) 10 mg tablet Gcjqthbqlpad20MBTRWgckj156Dxvduod 2023 5:15pmAugust 2024 4:43pmType 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 with hyperglycemia Type 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 with hyperglycemia 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 (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Insulin Lispro-Aabc 200 unit/mL (3 mL) insulin ectNtlovwdpkmcw3PWMBDI.COMPLEXMarch 2023 1:00amOctober 2023 4:43pmUSE 32 UNITS BEFORE BREAKFAST, 38 BEFORE SUPPER PLUS ISS 1:10 BEFORE MEALS (AT BEDTIME IF >200 HALF DOSE) *UP TO 100 UNITS PER DAY* Subcutaneous (expect up to 100 units/day)Sacubitril-Valsartan (Entresto) 24-26 mg ztsnjyKtnjfu2TFMCJRuvdi dailyKettering Health [facility] Center 2023 1:00amComplies with drug therapyDapagliflozin Propanediol (Farxiga) 10 mg btsxnzCdedgdxdhjtk74NLREMnobpUoflw 2023 1:00amOctober 2023 5:15pmMetformin 500 mg tablet extended release 24 jjXbltrqbeibpn787IUIM Three times dailyKettering Health [facility] 2023 1:00amSeptember 2023 7:09amPantoprazole 40 mg tablet,delayed release (DR/EC)Cwsluswkckhr70JRRYUdmxfOytei 2023 1:00am August 25, 2023 1:04pmMagnesium Oxide 400 mg (241.3 mg magnesium) firzlmBqqnvw222 MGPODailyKettering Health [facility] 2023 1:00amComplies with drug therapySpironolactone 25 mg ghloltEshvmp94RBJXWfzatDyzzd 2023 1:00amComplies with drug therapy Metoprolol Succinate 100 mg tablet extended release 24 grMvlioe339OEILFbhtf dailyKettering Health [facility] 2023 1:00amComplies with drug therapyTizanidine 4 mg tablet Dnnmpp6KM.COMPLEXKettering Health – Soin Medical Center 2023 1:00amTAKE 1/2 TO 2 TABLETS BY MOUTH EVERY DAY AT BEDTIME;Complies with drug therapyAtorvastatin 80 mg gjdrdjLtchojmiqeou16BAMK DailyKettering Health [facility] 2023 1:00amSeptember 2023 8:42amflash glucose sensor (FreeStyle Addie 2 Sensor)Discontinued.RouteKettering Health [facility] 2023 1:00amJuly 2023 7:58ampen needle, diabetic (BD Ultra-Fine Georgina Pen Needle)Active.RouteKettering Health – [facility] 2023 1:00amomega-3 fatty acids (Fish Oil)Motcqglpdgsa2XRTRPHqhoeJmwen 2023 1:00amOctober 2023 4:40pmEzetimibe 10 mg okzflpYomuti61HGIXBynfvUiyxg 2023 1:00amComplies with drug therapyBumetanide 1 mg auwolzPzitjy6LEZPObetr June 21, 2023 1:00amComplies with drug therapySildenafil 100 mg tabletActive 100MGPOas neededMarch 2023 1:00amComplies with drug therapyFamotidine 40 mg hijuidSvkbnh12HCQCWhsjk at bedtimeMarch 2023 1:00amComplies with drug therapyInsulin Lispro-Aabc 200 unit/mL (3 mL) insulin acqIipwibhoscou7KSPBGJ .COMPLEXOctober 2023 4:40pmOctober 2023 5:15pmUSE 36 UNITS BEFORE BREAKFAST, 38 BEFORE SUPPER PLUS ISS 1:10 BEFORE MEALS (AT BEDTIME IF >200 HALF DOSE) *UP TO 100 UNITS PER DAY* Subcutaneous (expect up to 100 units/day) Clopidogrel 75 mg bfvwnaBnfdpf47VWGZHiqpuXrlvilb 2024 1:00amComplies with drug therapyInsulin Glargine U-300 Conc 300 unit/mL (1.5 mL) insulin ndwTnlrib18 UNITSUBCUTDaily at olirgcx400Etinzq 2024 4:41pmType 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 with hyperglycemia Type 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 with hyperglycemia 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 (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 DMComplies with drug therapyInsulin Lispro-Aabc 200 unit/mL (3 mL) insulin pen Hpywqf5QUKZAN.LXGNCJB634Vdghyz 2024 4:42pmType 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 with hyperglycemia Type 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 with hyperglycemia FDC (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USE 36 UNITS BEFORE BREAKFAST/lunch, 38 BEFORE SUPPER PLUS ISS 1:10 BEFORE MEALS (AT BEDTIME IF >200 HALF DOSE) *UP TO 120 UNITS PER DAY* SubcutaneousComplies with drug therapyDapagliflozin Propanediol (Farxiga) 10 mg yrxgfxWkjwff54RYAEAmyme493Xhxwwb 2024 4:43pmType 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 with hyperglycemia Type 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 with hyperglycemia 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 (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Complies with drug therapy Immunizations Immunization Event Date Not Given Reason Dose Number Tile Applicator Lot Number Reason(s) Given Vaccine Information Statement (VIS) Detail Administration Location COVID-19 mRNA, Comirnaty (Pfizer) July 13 COVID-19 mRNA, Comirnaty (Pfizer)August 03OVID-19 mRNA, Comirnaty (Pfizer)March 23OVID-19 mRNA Bivalent Booster (Pfizer)February 24, 2022 Relevant Diagnostic Tests and/or Laboratory Data Laboratory Results Test Collection Date/Time Result Date/Time Result Interpretation Reference Range Result Comment Performing Site Bedside Hemoglobin A1c November 27, 2024 4:16pm November 4:17pm 7.0 % Bedside GlucoseAugust 2024 4:16pmAugust 2024 4:76yn627 Vital Signs Vital Reading Result Reference Range Collection Date/Time Height 70 [in_i] November 27, 2024 4:85zkTxxknp849.20 kgAugust 2024 4:05pmHeart Rate70 /min 60-100Augus2024 4:05pmRespiratory rate18 /gpu90-19Fdgvcd 13th, 2025 4:05pmOxygen saturation by Pulse utbjryxi93 %95-100Augus2024 4:05pmBP Asoocfzw139 mm[Hg]100-140Augus2024 4:05pmBP Yutpganvq78 mm[Hg]60-100 November 27, 2024 4:05pmBMI (Body Mass Index)37.7 kg/n6Uihitw 2024 4:05pm Zsimbz92 [in_i]February 04, 2025 9:67thGtfhky341.03 kgOct2024 9:16am Heart Rate68 /gth70-308FuecigdFebruary 04, 2025 9:16amRespiratory rate12 /mjf21-27 February 04, 2025 9:16amBP Mpddbjoi019 mm[Hg]100-140Oct2024 9:16amBP Vclmloido68 mm[Hg]60-100Oct2024 9:16amBMI (Body Mass Index)37.6 kg/n7Pcnlavx2024 9:16am Advance Directives Advance Directive Response Recorded Date/ Time Advance Directives No September 28 1:24pm Insurance Providers Guarantor Dominik Ballard Address [address] [place] [id number] Info.Home Phone: Payer Group Member ID Coverage Type Subscriber Relationship to Subscriber Effective Date Expiration Date [facility] Cristopher Perry Id: [id number] Encounters Encounter Location(s) Arrival/Admit Date Discharge/Departure Date Discharge/Departure Disposition Provider(s) Departed Physician/ Provider Office Visit -[facility] November 27, 2024 3:59pm November 27, 2024 4:40pm Discharged to home care or self care (routine discharge) ANA LILIA Orellana Departed Physician/ Provider Office Visit -[facility] February 04, 2025 9:04am February 04, 2025 9:36am Discharged to home care or self care (routine discharge) Fahad Salinas , Recent Diagnosis Onset Date Admit Date BMI 37.0-37.9, adult Unknown November 3:59pm Dietary counseling and surveillance Unknown November 27, 2024 3:59pm Mixed hyperlipidemia Unknown November 3:59pm Vitamin B 12 deficiency Unknown November 152024 3:59pm HTN (hypertension) Unknown November 27, 2024 3:59pm Type 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 Unknown November 27, 2024 3:59pm Accidental fall Unknown February 04 9:04am Low back pain Unknown February 04 9:04am Pain in joint involving left pelvic region and thigh Unknown February 04, 2025 9:04am Assessments Diagnosis Onset Date Resolution Status Admit Date BMI 37.0-37.9, adult acuteAugust 2024 3:59pmDietary counseling and surveillanceacuteAugust 2024 3:59pmMixed hyperlipidemiaacuteAugust 2024 3:59pmVitamin B 12 deficiencyacuteAugust 2024 3:59pmHTN (hypertension)deletedAugust 2024 3:59pmType 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deletedAugust 2024 3:59pmAccidental fallacuteOctober 2024 9:04amLow back painacuteOctober 2024 9:04am Pain in joint involving left pelvic region and thighacuteOctober 2024 9:04am Plan of Treatment Author Fahad Salinas [facility] CenterAuthoredOctober 2024 9:33amAccidental fall in bathroom, striking his left pelvis/hip on the toilet. Pain w/ walking and sitting. XR to r/o pelvic/hip/lumbar vertebrae fx Pain after fall w/ radiation into thigh. Pain w/ activity and relieved by rest. XR to r/o vertebral fx Pain after fall Unable to sit or stand w/o increasing pain XR to r/o fx Author Rhona Gottlieb [facility] CenterAuthoredAujeromy 2024 5:15pmType 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 ? Clinical Notes: 1. Controlled, a Type 2 diabetes with A1c of 7% 2. Blood glucose levels slightly higher. According to addie 2 cgm review 11/14- 11/27/24: AVG SG 161. >250-3%, >180-32%, 70-180-64%, <70-1%, <70-0%. CV 28.7%. GMI 7.2%. Reviewed download with pt, infrequent incidence of hypoglycemia, overesimation of insulin for carb load. Glucose above target postprandial lunch from missed meal dose when at work. Continue: Toujeo max 70 units qhs. Lyumjev u200 36 units ac bk/lunch 38 units ac supper plus corrective scale 1:10 ac tid (hs if >200 half dose). Reviewed with pt how to titrate basal/bolus insulin according to fasting am/meal to meal glucose pattern. Pt verbalizes understanding. farxiga 10mg 1 tab qd metformin er 500mg 1 tab tid. Addie 2 cgm pt adherent and benefitting from use. Note: hx pancreatitis 3. Patient is alert, oriented and receptive to making changes or counseling Notes: Seen for an assessment of current glucose pattern, changes in treatment plan, time was spent counseling and coordination of care related to diabetes, risks, and benefits of treatment, medications, and side effects. TOPICS REVIEWED: 1. Time was spent reviewing: a. Basic concepts of diabetes, progressive beta cell , concepts of basal/bolus/corrective insulin requirements. Basal: The goal is fasting blood glucose of 90-130mg. If fasting blood glucose starts to run under [...] 100-150mg range b. Nutrition: Concepts of healthy diet reviewed, encouraged to decrease saturated fat in diet [...] hyperglycemia, or diabetes medication issues. 6. Prescriptions: [facility] [place], [place] sent. 7. Prescriptions will not be filled unless you are compliant with follow up appointments or have a follow up appointment scheduled as ordered by your provider. Refills should be requested at the time of your visit. controlled, on arb; managed by pcp 2024 ADA Guidelines- target blood pressure < 130/80, if it can be safely attained. 07/09 ldl 37/trig 198- on statin; managed by cardiology 2024 ADA guidelines- people with Diabetes age 40-75 at higher CV risk including those with one or more additional ASCVD risk factors, high intensity statin therapy recommended to reduce ldl by >50% of baseline and to obtain goal ldl <70 2024 ADA guidelines- people with Diabetes age 40-75 moderate-intensity statin therapy in those without ASCVD risk factors 10/09 vit b12 601 at target see above 4 pound weight loss from last visit, continue w/ weight loss efforts Future Tests Future scheduled test information is unavailable Pending Tests Test Name Ordered Date Scheduled Date XR hip LT min 2V(w/wo pelvis)* February 04 9:26am XR lumbar spine 2-3V*February 04, 2025 9:26am Future Visits Future appointment information is unavailable Future Procedures Future procedure information is unavailable Future Medications Future medication information is unavailable Patient Instructions Instruction Admit Date Diabetes and heart disease November 27, 2024 3:59pm Low back pain in adults February 04 9:04am
--- OUTSIDE RECORDS SUMMARY | 2025-02-04 09:59 | XMS_ITS | Clinical Summary ---
Author Organization [facility] Address [address] [address] Care Team Providers Care Diplomatic Courier Name Role Phone Fahad Salinas DO Primary Care Provider [phone] Allergies No known active allergies Medications MedicationSigDispense QuantityRefillsLast FilledStart DateEnd DateStatus insulin aspart (NovoLOG) 100 unit/mL injection Inject 25 Units under the skin in the morning, at noon, and at bedtime. Patient states always uses 25 units, but sometimes will add 2 units per blood sugar parameters.Active metFORMIN (Glucophage) 500 mg tablet Take 500 mg by mouth with breakfast and with evening meal. With lunch and supper Active docosahexaenoic acid/epa (FISH OIL ORAL) Take 1,000 mg by mouth in the morning.Active acetaminophen (Tylenol) 325 mg tablet Indications:CAD, multiple vesselTake 2 tablets (650 mg) by mouth every 6 (six) hours if needed for mild pain (1-3 pain score) for up to 278 doses. 30 tablet 01/15/2022ctive atorvastatin (Lipitor) 80 mg tablet Indications:CAD, multiple vesselTake 1 tablet (80 mg) by mouth at bedtime for 92 doses. 30 tablet 01/15/2022ctive insulin detemir (Levemir) 100 unit/mL injection Indications:CAD, multiple vesselInject 40 Units under the skin in the morning and at bedtime for 184 doses. 10 mL 01/15/2022ctive potassium chloride CR (Klor-Con M20) 20 mEq ER tablet Indications:CAD, multiple vesselTake 1 tablet (20 mEq) by mouth in the morning and at bedtime. Do not crush or chew. 180 tablet ctive famotidine (Pepcid) 40 mg tablet TAKE 1 TABLET BY MOUTH EVERY DAY AT BEDTIME FOR 90 DAYS05/04/2022ctive aspirin 81 mg EC tablet Take 81 mg by mouth in the morning.Active Farxiga 10 mg Indications:Chronic systolic heart failure (CMS/HCC)TAKE 1 TABLET BY MOUTH EVERY DAY IN THE MORNING 90 tablet 4Active amiodarone (Pacerone) 200 mg tablet Take 200 mg by mouth in the morning.Active clopidogrel (Plavix) 75 mg tablet Take 75 mg by mouth in the morning.Active gabapentin (Neurontin) 100 mg capsule Take 100 mg by mouth at bedtime.06/17/2024tive pantoprazole (ProtoNix) 40 mg EC tablet Take 40 mg by mouth before breakfast.Active Lyryan Vaughn U-200 Insulin 200 unit/mL (3 mL) insulin pen PLEASE SEE ATTACHED FOR DETAILED GZHOEYLABC41/19/2025tive spironolactone (Aldactone) 25 mg tablet Indications:Chronic systolic heart failure (CMS/HCC)TAKE 1 TABLET BY MOUTH EVERY DAY IN THE MORNING 90 tablet 5Active metoprolol succinate XL (Toprol-XL) 100 mg 24 hr tablet Indications:Chronic systolic heart failure (CMS/HCC),Coronary artery disease involving [place] coronary artery of [place] heart without angina pectoris, Postoperative atrial fibrillation (CMS/HCC)TAKE 1 TABLET BY MOUTH IN THE MORNING AND 1 TABLET AT BEDTIME 180 tablet 5Active ezetimibe (Zetia) 10 mg tablet Indications:Mixed hyperlipidemia,Coronary artery disease involving [place] coronary artery of [place] heart without angina pectorisTAKE 1 TABLET BY MOUTH EVERY DAY IN THE MORNING 90 tablet 5Active sacubitril-valsartan (Entresto) 24-26 mg tablet Indications:Chronic systolic heart failure (CMS/HCC)TAKE 1 TABLET BY MOUTH TWICE A DAY IN THE MORNING AND IN THE EVENING 60 tablet 5Active Entresto 24-26 mg tablet Indications:Chronic systolic heart failure (CMS/HCC)TAKE 1 TABLET BY MOUTH IN THE MORNING AND IN THE EVENING 60 tablet 11001/11//Discontinued Active Problems ProblemNoted DateDiagnosed LewpWtrnjpgyjkaojc72/28/2367Izphfpovtrvqcie39/28/2025 Hidden penis07/12/20248349Lrxmwdhd33/28/2025Type 1 ngqobfnk75/28/2025GERD (gastroesophageal reflux disease)07/27/2023cquired buried penis05/03/2023 06/19/2023Erectile dysfunction associated with type 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 /07/2023Scarring of penis/hronic systolic heart dmqkyoo6101/31/2022 Assessment & Plan (12/06/2022 4:51 PM EDT): [facility] II Continue GDMT- ASA, lipitor, farxiga, entresto, aldactone and toprol Diuretic therapy- farxiga and he remains euvolemic currently Monitor daily weights, I&O, fluid restriction 1.5-2L/day, renal function and electrolytes- History of coronary artery bypass graft01/31/2022 Assessment & Plan (12/06/2022 4:53 PM EDT): Remains stable Coronary artery disease involving [place] coronary artery of [place] heart without angina /27/2022 Assessment & Plan (12/06/2022 4:52 PM EDT): Coronary artery disease is stable without concerning symptoms Continue GDMT- asa, lipitor and toprol continue risk factor modifications- heart healthy diet, regular exercise as tolerated and continue all medications. Postoperative atrial crpzqecopzen57/26/2022 Assessment & Plan (12/06/2022 4:52 PM EDT): resolved Diabetes mellitus, type II, insulin bvmzvvsqa65/24/2022espiratory insufficiency 01/08/20227641Xoyxjtjcnquuui34/24/0953Vrrtkbwtmngl28/24/2022 Assessment & Plan (12/06/2022 4:52 PM EDT): Hypertension is well controlled 102/63 Renal function stable Mfsktjlnewewot68/24/2022 Assessment & Plan (12/06/2022 4:52 PM EDT): Continue statin and repeat LFT and lipid level. Firdhat3901/04/2022hest pain12/31/2021NSTEMI (non-ST elevated myocardial infarction)12/31/2021 Resolved Problems ProblemNoted DateDiagnosed DateResolved KfvuGbyehb26 Encounters DateTypeDepartmentCare UkzcJwbguwbyakl50/14/2025Ref[facility] [place] [address] [place] [phone] Charbel Kasper MD Chronic systolic heart failure (CMS/HCC)12/11/2024[facility] [address] [place] [address] Charbel Kasper MD Mixed hyperlipidemia; Coronary artery disease involving [place] coronary artery of [place] heart without angina mkydtrii95/05/2025[facility] [address] [phone] Charbel Kasper MD Chronic systolic heart failure (CMS/HCC); Coronary artery disease involving [place] coronary artery of [place] heart without angina pectoris; Postoperative atrial fibrillation (CMS/HCC)from Last 3 Months Family History Medical HistoryRelationNameCommentsCoronary artery diseaseFatherRelationName StatusCommentsFather Social History Tobacco UseTypesPacks/DayYears UsedDateSmoking Tobacco: NeverSmokeless Tobacco: Never Tobacco Cessation:Counseling Given: Not Answered Alcohol UseStandard Drinks/WeekCommentsNot Currently2 (1 standard drink = 0.6 oz pure alcohol)Humiliation, Afraid, Rape, and Kick questionnaireAnswerDate RecordedWithin the last year, have you been afraid of your partner or ex-partner?No12/31/2021Within the last year, have you been humiliated or emotionally abused in other ways by your partner or ex-partner?No12/31/2021 Within the last year, have you been kicked, hit, slapped, or otherwise physically hurt by your partner or ex-partner?No12/31/2021Within the last year, have you been raped or forced to have any kind of sexual activity by your part ner or ex-partner?No12/31/2021ocial Connection and Isolation Panel [NHANES] AnswerDate RecordedIn a typical week, how many times do you talk on the phone with family, friends, or neighbors?Twice a week12/31/2021How often do you get together with friends or relatives?Twice a week12/31/2021How often do you attend mu-ism or cheondoism services?1 to 4 times per year2Do you belong to any clubs or organizations such as mu-ism groups, unions, fraternal or athletic groups, or school groups?No12/31/2021How often do you attend meetings of the clubs or organizations you belong to?Never12/31/2021re you , , , , never , or living with a partner?Hsopsci2312/31/2021 AUDIT-CAnswerDate RecordedQ1: How often do you have a drink containing alcohol? Monthly or less12/31/2021Q2: How many drinks containing alcohol do you have on a typical day when you are drinking?1 or Q3: How often do you have six or more drinks on one occasion?Never12/31/2021verall Financial Resource Strain (CARDIA)AnswerDate RecordedHow hard is it for you to pay for the very basics like food, housing, medical care, and heating?Not hard at all12/31/2021[facility] [place] [facility] Occup[facility] - Occupational Stress QuestionnaireAnswerDate RecordedDo you feel stress - tense, restless, nervous, or anxious, or unable to sleep at night because yourmind is troubled all the time - these days?Not at all 12/31/2021Exercise Vital SignAnswerDate RecordedOn average, how many days per week do you engage in moderate to strenuous exercise (like a brisk walk)?0 days 12/31/2021n average, how many minutes do you engage in exercise at this level?0 min12/31/2021Hunger Vital SignAnswerDate RecordedWithin the past 12 months, you worried that your food would run out before you got the money to buymore.Never true2Ran Out of Food in the Last YearNot on file12/31/2021RAPARE - TransportationAnswerDate RecordedIn the past 12 months, has lack of transportation kept you from medical appointments or from getting medications?No 12/31/2021In the past 12 months, has lack of transportation kept you from meetings, work, or from getting things needed for daily living?No12/31/2021 Housing Stability Vital SignAnswerDate RecordedIn the last 12 months, was there a time when you were not able to pay the mortgage or rent on time?No12/31/2021 Number of Places Lived in the Last YearNot on file12/31/2021In the last 12 months, was there a time when you did not have a steady place to sleep or slept in [place] (including now)?No12/31/2021UT Safety & EnvironmentAnswerDate RecordedFear of Current or Ex-PartnerNot on file06/08/2023Emotionally AbusedNot on file4Physically AbusedNot on file06/08/2023Sexually AbusedNot on file06/08/2023hysically or Sexually AbusedNot on file06/08/2023Sex and Gender InformationValueDate RecordedSex Assigned at OlqwqWrdx59/16/2022 10:49 PM EDT Legal ZygWcqa2312/31/2021 2:52 PM EDTGender KpgkmdeoIksu98/16/2022 10:49 PM EDT Sexual OrientationHeterosexual or Hjcfnspf80/16/2022 10:49 PM EDT Last Filed Vital Signs Vital SignReadingTime TakenCommentsBlood Ivbeqbrl536/6403 11:35 AM EDT Fuesi1862 11:35 AM URDWgnjsoqziqm13.4 ??C (97.6 ??F)01/20/2022 1:20 PM EDTRespiratory Hzqt9155 1:20 PM EDTOxygen Qxusnwzegb65%07/12/2024 11:35 AM EDTInhaled Oxygen Concentration--Jhnllu016 kg (267 lb)07/12/2024 11:35 AM EDT Uelcub884.8 cm (5' 10 )07/12/2024 11:35 AM EDTBody Mass Index38.31007/12/2024 11:35 AM EDT Plan of Treatment Health MaintenanceDue DateLast DoneCommentsCT Unblpcntkvyn1962Colonoscopy 2Colorectal Cancer Euhwevaea1962FIT-DNA1962FIT1962 FOBT8289Nwrjigjjuulba1962Diabetes: Retinopathy Gngpffbfi44/26/1972 Depression Wjhbyesyo10/26/1974Diabetes: Urine Protein Xubjghxgo00/26/1981 Pneumococcal Vaccine: Pediatrics (0 to 5 Years) and At-Risk Patients (6 to 64 Years) (1 of 2 - PCV)1981Adult Thppjxd2001/11/1984Zoster Vaccines (1 of 2) 01/11/2012Diabetes: Hemoglobin A1C/OVID-19 Vaccine (2024- season)/, 02/12/2023, 02/24/2022, Additional history existsInfluenza Vaccine (#1)/, 02/02/2023, 03/23/2021, Additional history existsHIB VaccinesAged OutNo longer eligible based on patient's age to complete this topicHPV VaccinesAged OutNo longer eligible based on patient's age to complete this topicIPV VaccinesAged OutNo longer eligible based on patient's age to complete this topicMeningococcal B VaccineAged OutNo longer eligible based on patient's age to complete this topicMeningococcal VaccineAged OutNo longer eligible based on patient's age to complete this topic Rotavirus VaccinesAged OutNo longer eligible based on patient's age to complete this topic Goals GoalPatient Goal TypeAssociated ProblemsRecent ProgressPatient-Stated?Author Blood Pressure < 140/90 Blood Sqovcfcw908/64(07/12/2024 11:35 AM EDT)Ozzie Avendano CNP Medical Devices ImplantedTypeAreaManufacturerDevice IdentifierShelf Expiration DateModel / Serial / LotStent Implanted:Qty: 3StentHeart Procedures Procedure NamePriorityDate/TimeAssociated DiagnosisCommentsHEMOGLOBIN F6EBfgsiwy Oykgaeiaj96/20/2022 7:54 PM EDT from Last 3 Months or Most Recently Relevant to Health Maintenance Results * (ABNORMAL) Hemoglobin A1c (01/04/2022 7:54 PM EDT)ComponentValueRef RangeTest MethodAnalysis TimePerformed AtPathologist SignatureHemoglobin A1C6.6(H)4.0 - 6.0 %01/05/2022 1:19 PM [facility])Estimated Average Glucose 142.72mg/dL01/05/2022 1:[address] [facility] ([place])Specimen (Source) Anatomical Location / LateralityCollection Method / VolumeCollection Time Received TimeBloodVenous blood specimen / UnknownArterial Line / Unknown 01/04/2022 7:54 PM EDT01/04/2022 8:42 PM EDT Narrative Authorizing ProviderResult TypeResult StatusWaleed KassaboLAB BLOOD ORDERABLES Final ResultPerforming OrganizationAddressCity/State/ZIP CodePhone Number [facility] ([place] [address] [place], [place] [id number] from Last 3 Months or Most Recently Relevant to Health Maintenance Insurance [address] [place] [address] Advance Directives * Full Code (Latest Code Status on File) Date ActivatedDate InactivatedComments12/31/2021 8:54 PM10 5:11 PM Care Teams Team MemberRelationshipSpecialtyStart DateEnd Date Fahad Salinas DO [address] [place] [phone] PCP - General12/31/21
--- OUTSIDE RECORDS SUMMARY | 2025-02-04 09:59 | XMS_ITS | Patient Health Record ---
Author Organization [facility] Address [address] [place] [address] [place] [address] Care Team Providers Care Assembler Lay Ups Name Role Phone Fahad Salinas MD Primary Care Provider Unavaila Manny Timmons Unavailable [phone] Reason For Referral No Information Medications Medication SIG (Take, Route, Frequency, Duration) Notes Start Date End Date Status metFORMIN HCl ER 500 MG 3-4 tablets Orally qd ActiveFenofibrate 145 MG1 tablet Orally Once a dayActiveClopidogrel Bisulfate 75 MG1 tablet Orally Once a dayActiveLisinopril 10 MGOrallyActiveAtenolol 25 MG1 tablet Orally Once a dayActivehydroCHLOROthiazide 25 MG1 tablet Orally Once a dayActive Social History Tobacco Use: Social History Observation Description Date Details (start date - stop date) Never Smoker NA - NA tobacco use Question Answer Notes Patient is a: non smoker Problems Problem Type SNOMED Code ICD Code Onset Dates Problem Status W/U Status Risk Notes Problem Polyneuropathy due t o type 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 (968604032) Type 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 with diabetic polyneuropathy (E11.42) ActiveconfirmedProblemFoot ulcer due to type 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 (3318021354636) Type 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 with foot ulcer (E11.621)ActiveconfirmedProblem Cellulitis of right toe (2501809671)Cellulitis of right toe (L03.031)Active confirmedProblemNon-pressure chronic ulcer of other part of right foot limited to breakdown of skin (L97.511)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 with fat layer exposed (L97.512)Activeconfirmed ProblemAcquired hammer toe of right foot (6212735363718104)Other hammer toe(s) (acquired), right foot (M20.41)ActiveconfirmedProblemAcquired hammer toe of left foot (9959350690838853)Other hammer toe(s) (acquired), left foot (M20.42)Active confirmedProblemCallosity (364784500)Corns and callosities (L84)Activeconfirmed ProblemLong-term current use of drug therapy (905951965)group home (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 of oral hypoglycemic drugs (Z79.84)Activeconfirmed Plan Of Treatment Pending Test Test Name Order Date Wound Culture (Deep) 05/21/2018 Wound Culture (Deep) 06/04/2018 Wound Culture (Deep) 06/26/2018 Wound Culture (Deep) 08/07/2018 XR foot RT min 3V* 05/21/2018 Insurance Providers Payer Name Payer Address Payer Phone Subscriber Number Group Number Insured Name Patient Relationship to Insured Coverage Start Date Coverage End Date [facility] [address] [address] [place] [address] [id number], DouglasSelf - patient is the insured Medical (General) History Medical History History ICD Code diabetes high blood pressureSurgical History Surgery Date(Month/Year) gallbladder removed 2008 toe removal- rt foot 06/2018
--- OUTSIDE RECORDS SUMMARY | 2025-02-04 09:59 | XMS_ITS | Encounter Summary ---
Author Organization [facility] Address [address] [place] [address] Care Team Providers Care Distribution A Class Lineman Name Role Phone Fahad Salinas DO Primary Care Provider [phone] Reason for Visit * ReasonCommentsMed Refill Encounter Details DateTypeDepartmentCare Team (Latest Contact Info)Fktrvhlolcc48/14/2025Ref[facility] [place] [address] [place] [address] Charbel Kasper MD [address] [facility] [address] [facility] [place] [place] [address] Chronic systolic heart failure (CMS/HCC) Social History Tobacco UseTypesPacks/DayYears UsedDateSmoking Tobacco: NeverSmokeless Tobacco: NeverAlcohol UseStandard Drinks/WeekCommentsNot Currently2 (1 standard drink = [...] relatives?Twice a week12/31/2021How often do you attend worship or judaism services?1 to 4 times per year2Do you belong to any clubs or organizations such as worship groups, unions, fraternal or athletic groups, or school groups?No12/31/2021How often do you attend meetings of the clubs or organizations you belong to?Never12/31/2021re you , , , , never , or living with a partner?Bsbsfcp4012/31/2021 AUDIT-CAnswerDate RecordedQ1: How often do you have [...] housing, medical care, and heating?Not hard at all12/31/2021[facility] [place] of Occupational Health - Occupational Stress QuestionnaireAnswerDate [...] steady place to sleep or slept in ashelter (including now)?No12/31/2021UT Safety & EnvironmentAnswerDate RecordedFear of Current or Ex-PartnerNot on file06/08/2023Emotionally AbusedNot on file06/08/2023hysically AbusedNot on file06/08/2023Sexually AbusedNot on file06/08/2023hysically or Sexually AbusedNot on file06/08/2023Sex and Gender InformationValueDate RecordedSex Assigned at OciseVpga09/16/2022 10:49 PM EDT Legal CulPbzw3012/31/2021 2:52 PM EDTGender KlhjfcwpCiph68/16/2022 10:49 PM EDT Sexual OrientationHeterosexual or Hfvrkzhh03/16/2022 10:49 PM EDTdocumented as of this encounter Plan of Treatment Not on file documented as of this encounter Goals GoalPatient Goal TypeAssociated ProblemsRecent ProgressPatient-Stated?Author Blood Pressure < 140/90 Blood Prcllfnr676/64(07/12/2024 11:35 AM EDT)Ozzie Avendano CNP documented as of this encounter Visit Diagnoses Diagnosis Chronic systolic heart failure (CMS/HCC) Chronic systolic heart failure documented in this encounter Care Teams Team MemberRelationshipSpecialtyStart DateEnd Date Fahad Salinas DO [address] [place] [phone] PCP - General12/31/21documented as of this encounter
--- OUTSIDE RECORDS SUMMARY | 2025-02-04 09:59 | XMS_ITS | Clinical Summary ---
Author Organization [facility] Address [address] [place], [place] [address] Care Team Providers Care Fixer Boarding Room Name Role Phone Isaak Bush MD Unavailable [phone] Fahad Salinas DO Primary Care Provider [phone] Allergies No known active allergies Medications MedicationSigDispense QuantityRefillsLast FilledStart DateEnd DateStatus metFORMIN ER (GLUCOPHAGE XR) 500 mg 24 hr tablet Take 1 tablet by mouth three times a day.02/01/2023ctive acetaminophen (TYLENOL) 325 mg tablet Take 650 mg by mouth every 6 hours as needed.01/15/2022ctive insulin aspart U-100 (NOVOLOG) 100 unit/mL Inject 25 Units subcutaneously three times a day before meals.Active aspirin, enteric coated (ASPIRIN, ENTERIC COATED) 81 mg EC tablet Take 81 mg by mouth.Active metoprolol succinate ER (TOPROL XL) 100 mg TAKE 1 TABLET BY MOUTH IN THE MORNING AND 1 TABLET AT VHRPEPK0603/05/2023ctive potassium chloride ER (KLOR-CON) 20 mEq tablet Take 20 mEq by mouth.03/02/2022ctive omega 0-fvz-tmf-fish oil (FISH OIL) 100-160-1,000 mg cap Take 1,000 mg by mouth.Active insulin glargine U-300 conc (TOUJEO MAX U-300 SOLOSTAR) 300 unit/mL (3 mL) inpn Inject 60 Units subcutaneously once daily.03/22/2023ctive amiodarone (PACERONE) 200 mg tablet Take 1 tablet by mouth once daily.06/21/2023ctive FARXIGA 10 mg tablet Take 10 mg by mouth every morning.07/02/2023ctive ezetimibe (ZETIA) 10 mg tablet Take 10 mg by mouth every morning.07/14/2023ctive ENTRESTO 24-26 mg tablet TAKE 1 TABLET BY MOUTH IN THE MORNING AND IN THE DLYFQGB4107/03/2023ctive pantoprazole DR (PROTONIX) 40 mg tablet TAKE 1 TABLET BY MOUTH ONCE A DAY ON EMPTY STOMACH FOLLOWED IN 30 MINUTES WITH BREAKFAST 90005/29/2023ctive spironolactone (ALDACTONE) 25 mg tablet Take 25 mg by mouth every morning.05/29/2023ctive Active Problems ProblemNoted DateDiagnosed DatePrimary aqkhcdiomkwu34/11/2024 Assessment & Plan (07/27/2023 2:29 PM EDT): Stable on Amiodarone 200 mg daily, Metoprolol 100 mg BID, and Spironolactone 25 mg daily. BP today 114/66. Jpezwbugfbnrtf87/11/2024 Assessment & Plan (07/27/2023 2:29 PM EDT): Stable on Ezetimibe 10 mg daily. Coronary artery disease involving coronary bypass graft of [place] heart without angina ueabkwdj64/11/2024 Assessment & Plan (07/27/2023 2:32 PM EDT): CAD, hx of TN s/p CABG x 5 in Dec 2021. Patient had a pre-op evaluation with Cardiology, 06/19/[address] Magana. Per note, Perioperative Cardiac Risk Assessment: Mr. Dominik Ballard's Is to undergo circumcision surgery which is [...] cardiac events (< 1% chance of , TN, CHF, malignant ventricular arrhythmias or high grade AV block) and I would recommend proceeding ahead with the circumcision surgery as planned. Patient denies recent chest pain, palpitations, shortness of breath. Endorses good functional capacity (5.5+ METs). Chronic systolic CHF (congestive heart failure)07/27/2023 Assessment & Plan (07/27/2023 2:34 PM EDT): Echo in Dec 2021 showed EF 35% Stable on Entresto 24-26 mg BID and Spironolactone 25 mg daily. Cardiology note 06/19/23 notes the following, Echo 03/30/22 ([facility]) - Global LV systolic function is difficult to assess but appears preserved, estimated ejection fraction is 55 to 60%, unable to accurately evaluate wall motion abnormalities. Paroxysmal atrial rprsibntkmuf82/11/2024 Assessment & Plan (07/27/2023 2:35 PM EDT): Hx of post-op atrial fibrillation, treated with amiodarone and converted back to NSR. Stable on Amiodarone 200 mg daily and Metoprolol 100 mg BID. GERD (gastroesophageal reflux disease)07/27/2023 Assessment & Plan (07/27/2023 2:36 PM EDT): Stable on Pantoprazole 40 mg daily. Type 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, with long-term current use of ycmalbu8907/27/2023 Assessment & Plan (07/27/2023 2:38 PM EDT): Stable on Insulin glargine 60 units daily, Insulin aspart 25 units TID with meals, Farxiga 10 mg daily, and Metformin 500 mg TID. Patient holding Farxiga for upcoming surgery, last dose 07/25/23. Outside HgbA1C 01/04/22 - 6.6% PLAN: HgbA1C ordered. Class 2 obesity due to excess calories without serious comorbidity with body mass index (BMI) of 39.0 to 39.9 in adult07/27/2023 Assessment & Plan (07/27/2023 2:40 PM EDT): Body mass index is 39.29 kg/m?? Acquired buried penis05/03/2023Scarring of penis05/03/2023Erectile dysfunction associated with type 2 diabetes zdozbgzg69/17/2024 Family History Medical HistoryRelationCommentsAnesthesia ProblemsNo Family History Social History Tobacco UseTypesPacks/DayYears UsedDateSmoking Tobacco: NeverSmokeless Tobacco: Never Tobacco Cessation:Counseling Given: Not Answered Alcohol UseStandard Drinks/WeekCommentsYes2 (1 standard drink = 0.6 oz pure alcohol)Sex and Gender InformationValueDate RecordedSex Assigned at BirthNot on fileLegal CfkKqob53/09/2023 1:32 PM ESTGender IdentityNot on fileSexual OrientationNot on file Last Filed Vital Signs Vital SignReadingTime TakenCommentsBlood Fcjfmssy528/71009/13/2023 1:15 PM EDT Febto4283/29/2024 1:15 PM XZLUfcmpxxgmlq06.6 ??C (97.9 ??F)07/29/2023 4:12 AM EDTRespiratory Gxyt617207/29/2023 8:22 AM EDTOxygen Yvfkctcjax76%07/29/2023 8:22 AM EDTInhaled Oxygen Concentration--Vwsxhy527 kg (277 lb 12.5 oz)09/13/2023 1:15 PM MREZpzjhg154.8 cm (5' 10 )08/04/2023 1:51 PM EDTBody Mass Index39.86 08/04/2023 1:51 PM EDT Plan of Treatment Health MaintenanceDue DateLast DoneCommentsDiabetic Foot Exam01/11/1972Dilated Retinal Exam01/11/1972Urine Albumin:Creatinine Ratio01/11/1972Annual PCP Team Chronic Disease Visit01/11/1980Anxiety Xdzexydkp74/26/1980Depression Screening 01/11/1980HIV Fpvzaesuv12/26/1980Hepatitis C Rdjqpfteu69/26/1980DTaP,Tdap,Td Vaccine (1 - Tdap)1981Pneumococcal Vaccine: 50+ (1 of 2 - PCV)1981CT Fnieidiohfcr88/26/2007Cologuard (FIT-DNA)01/10/20076937Qutqqssserh05/26/2007 Colorectal Cancer Inrsobbsc76/26/2007Fecal Occult Blood2007Prostate Cancer Screening Gdjlzmguiv70/26/0180Lflvmxegbxtpt77/26/2007Shingrix Vaccine (1 of 2) 01/11/2012RSV Vaccine (1 - Risk 60-74 years 1-dose series)2022LDL Asndmdscenu37/309/1508ZuS3Q29//02/2024, 01/04/2022ovid-19 Vaccine (2024- season)/10/2020, 08/03/2020, 07/13/2020 Influenza Vaccine (#1)2024 Medical Devices ImplantedTypeAreaManufacturerDevice IdentifierShelf Expiration DateModel / Serial / LotWireWireBone - Sternum Procedures Procedure NamePriorityDate/TimeAssociated DiagnosisCommentsHEMOGLOBIN S2KNctvpde 07/27/2023 1:24 PM EDT Type 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 with other specified complication, with long-term current use of insulin (HCC) from Last 3 Months or Most Recently Relevant to Health Maintenance Results * (ABNORMAL) HEMOGLOBIN A1C (07/27/2023 1:24 PM EDT)ComponentValueRef RangeTest MethodAnalysis TimePerformed AtPathologist SignatureHemoglobin A1C7.1(H)4.3 - 5.6 %07/27/2023 7:24 PM [facility]:[place] Diabetes Association guidelines indicate that patients with HgbA1c in the range 5.7-6.4% are at increased risk for development of diabetes, and intervention by lifestyle modification may be beneficial. HgbA1c greater or equal to 6.5% is considered diagnostic of diabetes.Estimated Average Glucose 157mg/dL07/27/2023 7:24 PM [facility]Comment:eAG: (Estimated average glucose) is a calculated value from HgbA1c and is veterans employment representative of the average blood glucose level in the last 2-3 month period.Specimen (Source)Anatomical Location / LateralityCollection Method / VolumeCollection TimeReceived TimeBloodBLOOD SPECIMEN / UnknownVenipuncture / Rynqwyk4807/27/2023 1:24 PM EDT07/27/2023 1:25 PM EDT Narrative Authorizing ProviderResult TypeResult StatusKillian Rupal GERMAINCNPLABORATORY Final ResultPerforming OrganizationAddressCity/State/ZIP CodePhone Number [facility] [address] [place] [address] [address] [place] [address], from Last 3 Months or Most Recently Relevant to Health Maintenance Insurance [address] [place] [address] Care Teams Team MemberRelationshipSpecialtyStart DateEnd Date Fahad Salinas DO [address] [place] [address] PCP - GeneralInternal Medicine07/18/23 Isaak Bush MD [address] [place] [id number] RqokrxxuzNasadwu24/9/23
--- NOTE | 2025-02-04 10:00 | XR_ITS ---
The [address] [address] Patient Name: CADEN WILLS MRN: [id number] date: 1960 Sex: M Assigned Patient Location: [facility] Current Patient Location: LAB Accession/Order Number: [id number] Exam Date: 02/04/2025 10:10 Report Date: 02/04/2025 14:09 At the request of: SJ ACEVES DO Procedure: XR lumbar spine 2-3V CLINICAL DATA: Low back and left hip pain since fall one month ago. LEFT HIP WITH AP PELVIS - 3 views COMPARISON: None available AP view of the pelvis as well as AP and frog-lateral views of the left hip were obtained. No fracture or dislocation is identified. There is loss of the left hip joint space. There is subchondral lucency at the weightbearing femoral head. There is also mild sclerosis at the femoral head and superior acetabulum. Marginal spurring is noted at both hips. The SI joints are intact. Degenerative changes seen at the lower imaged lumbar spine. There is no significant arthritic disease. No soft tissue abnormalities are present. Atherosclerotic disease is seen. XR/XR lumbar spine 2-3V IMPRESSION: DEGENERATIVE CHANGES WELL POSSIBLE AVASCULAR NECROSIS OF THE LEFT HIP. NO OTHER ACUTE BONY FINDINGS. LUMBAR SPINE - 2 views COMPARISON: 10/29/2021 AP and lateral views were obtained. There is subtle levoscoliotic curvature. No acute compression fractures are identified. There is still minor retrolisthesis of L1 on L2. There is mild multilevel disc space narrowing and endplate spurring. Lower lumbar facet hypertrophy is seen. The SI joints are intact and show minor sclerosis. No paraspinal soft tissue abnormalities are identified. IMPRESSION: SUBTLE SCOLIOSIS AND MULTILEVEL DEGENERATIVE CHANGES. NO ACUTE BONY INJURY. Impression dictated by: Shannon Parra M.D. 02/04/2025 2:09 PM Dictation Location: [place] [address] Electronically authenticated by: [id number] Y Date: 02/04/2025 14:09
--- NOTE | 2025-02-04 10:00 | XR_ITS ---
The [address] [address] Patient Name: CADEN WILLS MRN: [id number] date: 1960 Sex: M Assigned Patient Location: [facility] Current Patient Location: LAB Accession/Order Number: [id number] Exam Date: 02/04/2025 10:10 Report Date: 02/04/2025 14:09 At the request of: SJ ACEVES DO Procedure: XR lumbar spine 2-3V CLINICAL DATA: Low back and left hip pain since fall one month ago. LEFT HIP WITH AP PELVIS - 3 views COMPARISON: None available AP view of the pelvis as well as AP and frog-lateral views of the left hip were obtained. No fracture or dislocation is identified. There is loss of the left hip joint space. There is subchondral lucency at the weightbearing femoral head. There is also mild sclerosis at the femoral head and superior acetabulum. Marginal spurring is noted at both hips. The SI joints are intact. Degenerative changes seen at the lower imaged lumbar spine. There is no significant arthritic disease. No soft tissue abnormalities are present. Atherosclerotic disease is seen. XR/XR hip LT 2V w/ pelvis IMPRESSION: DEGENERATIVE CHANGES WELL POSSIBLE AVASCULAR NECROSIS OF THE LEFT HIP. NO OTHER ACUTE BONY FINDINGS. LUMBAR SPINE - 2 views COMPARISON: 10/29/2021 AP and lateral views were obtained. There is subtle levoscoliotic curvature. No acute compression fractures are identified. There is still minor retrolisthesis of L1 on L2. There is mild multilevel disc space narrowing and endplate spurring. Lower lumbar facet hypertrophy is seen. The SI joints are intact and show minor sclerosis. No paraspinal soft tissue abnormalities are identified. IMPRESSION: SUBTLE SCOLIOSIS AND MULTILEVEL DEGENERATIVE CHANGES. NO ACUTE BONY INJURY. Impression dictated by: Shannon Parra M.D. 02/04/2025 2:09 PM Dictation Location: [place] [address] Electronically authenticated by: [id number] Y Date: 02/04/2025 14:09
--- OUTSIDE RECORDS SUMMARY | 2025-02-04 10:03 | XMS_ITS | CCD ---
Author Organization [facility]iniSyne Care Team Providers Care Pre Press Manager Name Role Phone Yamilex Foster Unavailable Celestina Greene Unavailable DO Fahad Aceves Primary Care Provider [phone] JAKE Foster Attending Provider Fahad Aceves Unavailable YOLA, DR GUSTAFSON Primary Care Unavailable VICKEY LANE Attending Unavailable DOMINGOVICKEY TOLEDO Admitting Unavailable DARNELL OVALLE Attending Unavailable DARNELL [...] Santacruz Unavailable YAMILEX FOSTER Primary Care Physician [phone] Antonia Bush Unavailable DO Fahad Aceves Primary Care Provider MapusJAKE Attending Provider [phone] Yamilex Foster Attending Unavailable Yamilex Foster Admitting Unavailable Fahad Aceves Primary Care Unavailable Fahad Aceves DO Primary Care Provider Antonia Bush MD Unavailable Fahad Aceves DO Primary Care Provider YAMILEX FOSTER Referring Unavailable Antonia BUSH Attending Unavailable YOLA, FAHAD E Primary Care Unavailable BALL, FAHAD E Primary Care Unavailable DARRIAN Vegas, LIGIA Attending Unavailable DARRIAN Vegas, LIGIA Referring Unavailable JIAN ALBERTO Attending UnavailANTONIA Peter Referring Unavailable JIAN ALBERTO Attending UnavailGIOVANNI Carrasquillo Referring Unavailable BALL, FAHAD E Primary Care Unavailable GIOVANNI MULLIGAN Attending Unavailable YOLA, FAHAD E Primary Care Unavailable BALL, FAHAD E Primary Care Unavailable JIAN ALBERTO Admitting UnavailJIAN Omalley Attending Unavailabl e BINA, SIMBA Attending Unavailable CAROLINE SILVA Attending Unavailable Ball Fahad ROMERO Primary Care Provider [phone] [place] CARPENTER MOLDYamilex Ponce Attending Provider Provider, Outside Attending Provider Unavailable Fahad Aceves DO Attending Provider [phone] Fahad Aceves DO Primary Care Provider Yamilex Foster APRN Attending Provider Fahad Aceves DO Primary Care Provider Fahad Aceves DO Attending Provider [phone] Allergies Allergy ClassificationReported Allergen(s)Allergy TypeDate of OnsetReaction(s) Facility (20 sources)empagliflozinDrug Zfxphvm66-42-5260kyhSlxyloyluCommunity Regional Medical Center (20 sources)icosapent ethylDrug Xchgaal70-11-4011k/[facility] (1 source)empagliflozinDrug Oeuqzth66-72-5150IcmvpzgksC[facility] (1 source)icosapent ethylDrug Ogseoyv46-48-2041ZfodjeewyCleveland Clinic [facility] Repository Medications Current Medications MedicationDrug Class(es)DatesSig (Normalized)Sig (Original)acetaminophen 325 mg oral tablet (11 sources)Start: 62-43-3619wjxm 2 tablets by mouth every six hours as needed acetaminophen (TYLENOL) 325 mg tablet Take 650 mg by mouth every 6 hours as needed. 01/15/2022 ActiveComment on above:Take 650 mg by mouth every 6 hours as needed.amiodarone hydrochloride 200 mg oral tablet (20 sources)AntiarrhythmicStart: 99-64-4457malx 1 tablet by mouth once daily Amiodarone 200 mg tablet Active 0 .ROUTE .COMPLEX 90 3 June 13, 2024 8:37am TAKE 1 TABLET BY MOUTH EVERY DAY Complies with drug therapyStart: 02-07-2024 End: 88-97-4315jnuc 1 tablet by mouth once dailyAmiodarone 200 mg tablet Discontinued 200 MG PO Daily February 07, 2024 12:00am June 13, 2024 8:37amStart: 71-25-2888tygr 1 tablet by mouth once dailyamiodarone (PACERONE) 200 mg tablet Take 1 tablet by mouth once daily. 06/21/2023 ActiveStart: 03-24-2023 End: 41-67-7456zlge 1 tablet by mouth onceamiodarone (PACERONE) 200 mg tablet Take 1 tablet by mouth every afternoon. 0 03/24/2023 06/19/2023iscontinued Comment on above:Take 1 tablet by mouth every afternoon.Take 1 tablet by mouth once daily.amoxicillin 875 mg / clavulanate 125 mg oral tablet (2 sources)Penicillin-class AntibacterialStart: 56-47-7413uobq 1 tablet by mouth every twelve hoursAmoxicillin-Pot Clavulanate 875-125 MG 1 tablet Orally every 12 hrs for 7 days Jan, Activeapixaban 5 mg oral tablet (16 sources)Factor Xa Inhibitortake 1 tablet by mouth every twelve hoursEliquis 5 MG 1 tablet Orally Twice a day Activeaspirin 81 mg delayed release oral tablet (20 sources)Platelet Aggregation Inhibitor, Nonsteroidal Anti-inflammatory Drug Start: 13-97-7398Uvdbabb (Lucio Low Dose Aspirin) 81 mg Tablet,Delayed Release (Dr/Ec) Active 81 MG PO Daily June 26, 2018 12:00am Complies with drug therapytake 1 tablet by mouth once dailyAspirin 81 81 MG 1 tablet Orally Once a day Activetake 1 tablet by mouth once dailyAspirin 81 81 MG 1 tablet Orally Once a day ActiveComment on above:Take 81 mg by mouth.atorvastatin 80 mg oral tablet (20 sources)HMG-CoA Reductase InhibitorStart: 12-18-2023 End: 85-24-7025gypc 1 tablet by mouth once daily in the eveningAtorvastatin 80 mg tablet Active 0 .ROUTE .COMPLEX 90 December 11, 2024 7:40am TAKE 1 TABLET BY MOUTH EVERY DAY IN THE EVENING Complies with drug therapyStart: 03-22-2023 End: 98-95-4853oknh 1 tablet by mouth once dailyAtorvastatin 80 mg tablet Discontinued 80 MG PO Daily June 21, 2023 1:00am December 18, 2023 8:42am Comment on above:Take 80 mg by mouth every evening.Blood-Glucose Sensor (Freestyle Shivani 2 Plus Sensor) device (2 sources)Start: 68-84-7252Ollqp-Glucose Sensor (Freestyle Shivani 2 Plus Sensor) device Active 0 .Route 6 November 01, 2024 12:00am Type 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 with hyperglycemia Type 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 with hyperglycemia senior living (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 Use to monitor BG, Change every 15 daysStart: 47-07-2348Rcehy- Glucose Sensor (Freestyle Shivani 2 Plus Sensor) device Active 0 .Route November 01, 2024 12:00am Use to monitor BG, Change every 15 daysbumetanide 1 mg oral tablet (20 sources)Loop DiureticStart: 11-66-2591rirx 1 tablet by mouth once daily Bumetanide 1 mg tablet Active 1 MG PO Daily June 21, 2023 1:00am Complies with drug therapyStart: 37-02-2622zmll 1 tablet by mouth every twenty-four hours Bumetanide 1 MG 1 tablet Orally Once a day for 30 days Apr, Active End: 65-39-9236gucstsiote (BUMEX ORAL) Take by mouth. 0 07/27/2023 Discontinued (Discontinued by Patient)bumetanide (BUMEX ORAL) Take by mouth. 0 Activetake 1 tablet by mouth once dailyBumex 1 MG 1 tablet Orally Once a day ActiveComment on above:Take by mouth.cephalexin 500 mg oral capsule (1 source)Cephalosporin AntibacterialStart: 07-29-2023 End: 23-73-8651tsan 1 capsule by mouth twice dailycephALEXin (KEFLEX) 500 mg capsule Take 1 capsule by mouth two times a day. 60 capsule 0 07/29/2023 08/28/2023 ActiveComment on above:Take 1 capsule by mouth two times a day. cinnamon bark 500 mg oral capsule (12 sources)Start: 89-91-6651hbws 1 capsule by mouth twice dailyCinnamon Bark (Cinnamon) 500 mg Capsule Active 500 MG PO Twice daily June 26, 2018 12:00am DM Complies with drug therapyclopidogrel 75 mg oral tablet (20 sources)P2Y12 Platelet InhibitorStart: 64-64-8595yyvz 1 tablet by mouth once dailyClopidogrel 75 mg tablet Active 75 MG PO Daily May 15, 2024 1:00am Complies with drug therapyStart: 06-26-2018 End: 16-01-2218Wdqdnduvbpk 75 mg tablet Discontinued 75 MG PO 1200 June 26, 2018 12:00am June 21, 2023 5:28pmdapagliflozin 10 mg oral tablet (20 sources)Sodium-Glucose Cotransporter 2 InhibitorStart: 06-21-2023 End: 88-56-4804fcet 1 tablet by mouth once dailyDapagliflozin Propanediol (Farxiga) 10 mg tablet Active 10 MG PO Daily 90 3 November 27, 2024 4:43pm Type 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 with hyperglycemia Type 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 with hyperglycemia senior living (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 Complies with drug therapy Start: 37-02-0314Zxczrdm 10 mg oral tablet Refills(s) 0 Start Date: 03/22/23 Status: OrderedComment on above:Take 10 mg by mouth every morning.docusate sodium 100 mg oral capsule (1 source)Start: 07-29-2023 End: 50-48-9004zarw 1 capsule by mouth twice dailydocusate sodium (COLACE) 100 mg capsule Take 1 capsule by mouth two times a day. 60 capsule 0 07/29/2023 08/28/2023 ActiveComment on above:Take 1 capsule by mouth two times a day. ezetimibe 10 mg oral tablet (19 sources)Dietary Cholesterol Absorption InhibitorStart: 39-66-9258gkmi 1 tablet by mouth once dailyEzetimibe 10 mg tablet Active 10 MG PO Daily June 21, 2023 1:00am Complies with drug therapyStart: 85-18-5833ajfx 1 tablet by mouth every twenty-four hoursEzetimibe 10 MG 1 tablet Orally Once a day for 30 days Apr, ActiveComment on above:Take 10 mg by mouth every morning. famotidine 40 mg oral tablet (20 sources)Histamine-2 Receptor AntagonistStart: 10-46-7438eorv 1 tablet by mouth once daily at bedtimeFamotidine 40 mg tablet Active 40 MG PO Daily at bedtime June 21, 2023 1:00am Complies with drug therapyStart: 43-90-8082beyt 1 tablet by mouth every twenty-four hoursFamotidine 40 MG 1 tablet at bedtime Orally Once a day Apr, ActiveFish Oils (19 sources)Fish Oil ActiveFreeStyle Shivani 2 Sensor - (20 sources)Start: 10-18-6441OywySiyrw Shivani 2 Sensor - as directed In Vitro Change Every 14 days for 84 days Dec, ActiveFreeStyle Shivani 2 Sensor - CHANGE EVERY 14 DAYS for 84 Activegabapentin 100 mg oral capsule (20 sources)Anti-epileptic AgentStart: 85-30-4867naru 2 capsules by mouth once dailyGabapentin 100 mg capsule Active 200 MG PO Daily 60 30 5 July 10, 2024 12:18pm Complies with drug therapyStart: 06-17-2024 End: 47-75-1271zoym 1 capsule by mouth at bedtimeGabapentin 100 mg capsule Discontinued 0 .ROUTE .COMPLEX 30 5 June 17, 2024 8:44am July 10, 2024 12:19pm TAKE 1 CAPSULE BY MOUTH AT BEDTIMEStart: 04-23-2024 End: 21-11-2955xmbd 1 capsule by mouth once daily at bedtimeGabapentin 100 mg capsule Discontinued 100 MG PO Daily at bedtime 30 30 0 April 23, 2024 5:24pm June 17, 2024 8:44amInsulin Glargine U-300 Conc (8 sources)Start: 99-50-8383cejexj 70 [IU] by subcutaneous injection once daily at bedtimeInsulin Glargine U-300 Conc Active 70 UNIT SUBCUT Daily at bedtime February 07, 2024 5:11pmStart: 02-07-2024 End: 99-45-6193dvwzez 70 [IU] by subcutaneous injection once daily at bedtime Insulin Glargine U-300 Conc Discontinued 70 UNIT SUBCUT Daily at bedtime February 07, 2024 4:39pm February 07, 2024 5:15pmStart: 11-01-2023 End: 13-88-1291pdgypp 74 [IU] by subcutaneous injection once daily at bedtime Insulin Glargine U-300 Conc Discontinued 74 UNIT SUBCUT Daily at bedtime November 01, 2023 5:07pm February 07, 2024 4:43pmStart: 72-19-9100ejsxey 74 [IU] by subcutaneous injection once daily at bedtimeInsulin Glargine U-300 Conc Active 74 UNIT SUBCUT Daily at bedtime November 01, 2023 5:07pmStart: 06-21-2023 End: 99-49-8372bjuehz 72 [IU] by subcutaneous injection once daily at bedtime Insulin Glargine U-300 Conc Discontinued 72 UNIT SUBCUT Daily at bedtime June 21, 2023 5:18pm November 01, 2023 5:07pmStart: 06-35-8377sfpizw 72 [IU] by subcutaneous injection once daily at bedtimeInsulin Glargine U-300 Conc Active 72 UNIT SUBCUT Daily at bedtime June 21, 2023 5:18pmInsulin Glargine U-300 Conc 300 unit/mL (1.5 mL) insulin pen (15 sources)Start: 81-88-4902Ndjwoul Glargine U-300 Conc 300 unit/mL (1.5 mL) insulin pen Active 70 UNIT SUBCUT Daily at [email or web address] March 19, 2024 1:35pm Start: 54-47-5003Ezkefsy Glargine U-300 Conc 300 unit/mL (1.5 mL) insulin pen Active 70 UNIT SUBCUT Daily at [email or web address] March 19, 2024 12:35pmStart: 02-07-2024 End: 46-57-0394Qjxpinw Glargine U-300 Conc 300 unit/mL (1.5 mL) insulin pen Discontinued 70 UNIT SUBCUT Daily at bedtime February 07, 2024 5:11pm March 19, 2024 1:35pmStart: 02-07-2024 End: 14-83-7043Jrofkmi Glargine U-300 Conc 300 unit/mL (1.5 mL) insulin pen Discontinued 70 UNIT SUBCUT Daily at bedtime February 07, 2024 4:11pm March 19, 2024 12:35pmStart: 02-07-2024 End: 42-44-3085Fgrwtac Glargine U-300 Conc 300 unit/mL (1.5 mL) insulin pen Discontinued 70 UNIT SUBCUT Daily at bedtime February 07, 2024 4:39pm February 07, 2024 5:15pmStart: 02-07-2024 End: 90-95-5535Mlgnqwi Glargine U-300 Conc 300 unit/mL (1.5 mL) insulin pen Discontinued 70 UNIT SUBCUT Daily at bedtime February 07, 2024 3:39pm February 07, 2024 4:15pmStart: 11-01-2023 End: 21-98-9437Bqybsin Glargine U-300 Conc 300 unit/mL (1.5 mL) insulin pen Discontinued 74 UNIT SUBCUT Daily at bedtime November 01, 2023 5:07pm February 07, 2024 4:43pmStart: 11-01-2023 End: 62-29-8967Jyrmjlr Glargine U-300 Conc 300 unit/mL (1.5 mL) insulin pen Discontinued 74 UNIT SUBCUT Daily at bedtime November 01, 2023 4:07pm February 07, 2024 3:43pmStart: 06-21-2023 End: 09-30-3968Wslqepn Glargine U-300 Conc 300 unit/mL (1.5 mL) insulin pen Discontinued 72 UNIT SUBCUT Daily at bedtime June 21, 2023 5:18pm November 01, 2023 5:07pmStart: 06-21-2023 End: 27-78-7377Vufkngz Glargine U-300 Conc 300 unit/mL (1.5 mL) insulin pen Discontinued 72 UNIT SUBCUT Daily at bedtime June 21, 2023 4:18pm November 01, 2023 4:07pm3 ml insulin lispro-aabc 200 unt/ml pen injector (20 sources)Insulin AnalogStart: 02-07-2024 End: 11-10-1243Hzgobxy Lispro-Aabc 200 unit/mL (3 mL) insulin pen Active 0 SUBCUT .COMPLEX 54 0 November 27, 2024 4:42pm Type 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 with hyperglycemia Type 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 with hyperglycemia 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 USE 36 UNITS BEFORE BREAKFAST/lunch, 38 BEFORE SUPPER PLUS ISS 1:10 BEFORE MEALS (AT BEDTIME IF >200 HALF DOSE) *UP TO 120 UNITS PER DAY* Subcutaneous Complies with drug therapyStart: 06-21-2023 End: 05-53-0146Cgyenmj Lispro-Aabc 200 unit/mL (3 mL) insulin pen Discontinued 0 SUBCUT .COMPLEX June 21, 2023 1:00am February 07, 2024 4:43pm USE 32 UNITS BEFORE BREAKFAST, 38 BEFORE SUPPER PLUS ISS 1:10 BEFOREMEALS (AT BEDTIME IF >200 HALF DOSE) *UP TO 100 UNITS PER DAY* Subcutaneous (expect up to 100 units/day) Start: 50-63-1412Vgktgbj KwikPen 100 units/mL injectable solution Refills(s) 0 Start Date: 03/22/23 Status: OrderedStart: 42-38-8695Kmhmvps KwikPen 100 UNIT/ML 32 units ac breakfast , 38 supper plus ISS 1: 10 ac, (hs if >200 half dose) (expect daily dose 80 units) Subcutaneous ACHS Apr, ActiveInsulin Lispro-Aabc (6 sources)Start: 96-14-3982Omppytw Lispro-Aabc Active 0 SUBCUT .COMPLEX 54 February 07, 2024 5:12pm USE 36 UNITS BEFORE BREAKFAST/lunch, 38 BEFORE SUPPER PLUS ISS 1:10 BEFORE MEALS (AT BEDTIME IF >200 HALF DOSE) *UP TO 120UNITS PER DAY* SubcutaneousStart: 02-07-2024 End: 75-94-5878Rvonbja Lispro-Aabc Discontinued 0 SUBCUT .COMPLEX February 07, 2024 4:40pm February 07, 2024 5:15pm USE 36 UNITS BEFORE BREAKFAST, 38 BEFORE SUPPER PLUS ISS 1:10 BEFORE MEALS (AT BEDTIME IF >200 HALF DOSE) *UP TO 100 UNITS PER DAY* Subcutaneous (expect up to 100 units/day)Start: 06-21-2023 End: 24-00-4850Znyccoe Lispro-Aabc Discontinued 0 SUBCUT .COMPLEX June 21, 2023 1:00am February 07, 2024 4:43pmUSE 32 UNITS BEFORE BREAKFAST, 38 BEFORE SUPPER PLUS ISS 1:10 BEFORE MEALS (AT BEDTIME IF >200 HALF DOSE) *UP TO 100 UNITS PER DAY* Subcutaneous (expect up to 100 units/day)Start: 77-64-9254Utnhyhq Lispro-Aabc Active 0 SUBCUT .COMPLEX June 21, 2023 1:00am USE 32 UNITS BEFORE BREAKFAST, 38 BEFORE SUPPER PLUS ISS 1:10 BEFORE MEALS (AT BEDTIME IF >200 HALF DOSE) *UP TO 100 UNITS PER DAY* Subcutaneous (expect up to 100 units/day) Insulin Lispro-Aabc 200 unit/mL (3 mL) insulin pen (9 sources)Start: 46-46-5318Dgzulas Lispro-Aabc 200 unit/mL (3 mL) insulin pen Active 0 SUBCUT .COMPLEX 54 February 07, 2024 5:12pm USE 36 UNITS BEFORE BREAKFAST/lunch, 38 BEFORE SUPPER PLUS ISS 1:10 BEFORE MEALS (AT BEDTIME IF >200 HALF DOSE) *UP TO 120 UNITS PER DAY* SubcutaneousStart: 20-51-8028Bactfwd Lispro-Aabc 200 unit/mL (3 mL) insulin pen Active 0 SUBCUT .COMPLEX 54 February 07, 2024 4:12pm USE 36 UNITS BEFORE BREAKFAST/lunch, 38 BEFORE SUPPER PLUS ISS 1:10 BEFORE MEALS (AT BEDTIME IF >200 HALF DOSE) *UP TO 120 UNITS PER DAY* SubcutaneousStart: 02-07-2024 End: 12-03-3456Hjlbveh Lispro-Aabc 200 unit/mL (3 mL) insulin pen Discontinued 0 SUBCUT .COMPLEX February 07, 2024 4:40pm February 07, 2024 5:15pm USE 36 UNITS BEFORE BREAKFAST, 38 BEFORE SUPPER PLUS ISS 1:10 BEFORE MEALS (AT BEDTIME IF >200 HALF DOSE) *UP TO 100 UNITS PER DAY* Subcutaneous (expect up to 100 units/day)Start: 02-07-2024 End: 76-94-5365Xegymqb Lispro-Aabc 200 unit/mL (3 mL) insulin pen Discontinued 0 SUBCUT .COMPLEX February 07, 2024 3:40pm February 07, 2024 4:15pm USE 36 UNITS BEFORE BREAKFAST, 38 BEFORE SUPPER PLUS ISS 1:10 BEFORE MEALS (AT BEDTIME IF >200 HALF DOSE) *UP TO 100 UNITS PER DAY* Subcutaneous (expect up to 100 units/day)Start: 06-21-2023 End: 77-79-4214Pjylmmk Lispro-Aabc 200 unit/mL (3 mL) insulin pen Discontinued 0 SUBCUT .COMPLEX June 21, 2023 1:00am February 07, 2024 4:43pm USE 32 UNITS BEFORE BREAKFAST, 38 BEFORE SUPPER PLUS ISS 1:10 BEFOREMEALS (AT BEDTIME IF >200 HALF DOSE) *UP TO 100 UNITS PER DAY* Subcutaneous (expect up to 100 units/day) Start: 06-21-2023 End: 27-63-0685Cgrkymy Lispro-Aabc 200 unit/mL (3 mL) insulin pen Discontinued 0 SUBCUT .COMPLEX June 21, 2023 12:00am February 07, 2024 3:43pm USE 32 UNITS BEFORE BREAKFAST, 38 BEFORE SUPPER PLUS ISS 1:10 BEFORE MEALS (AT BEDTIME IF >200 HALF DOSE) *UP TO 100 UNITS PER DAY* Subcutaneous (expect up to 100 un its/day)LEVEMIR FLEXTOUCH 100 UNIT/ ML (4 sources)LEVEMIR FLEXTOUCH 100 UNIT/ ML 42 units Subcutaneous bid Active magnesium oxide 400 mg oral tablet (20 sources)Start: 25-33-9996renr 1 tablet by mouth once dailyMagnesium Oxide 400 mg (241.3 mg magnesium) tablet Active 400 MG PO Daily June 21, 2023 1:00am Complies with drug therapytake 1 tablet by mouth every twenty-four hours Magnesium Oxide 400 MG 1 tablet as needed Orally Once a day Suakqi58 hr metoprolol succinate 100 mg extended release oral tablet (20 sources)beta-Adrenergic BlockerStart: 43-31-6955huot 1 tablet by mouth twice dailyMetoprolol Succinate 100 mg tablet extended release 24 hr Active 100 MG PO Twice daily June 21, 2023 1:00am Complies with drug therapyStart: 03-05-2023 take 1 tablet by mouth in the morningmetoprolol succinate ER (TOPROL XL) 100 mg TAKE 1 TABLET BY MOUTH IN THE MORNING AND 1 TABLET AT BEDTIME 0 03/05/2023 ActiveComment on above:TAKE 1 TABLET BY MOUTH IN THE MORNING AND 1 TABLET AT BEDTIMEMultivitamin preparation (6 sources)Start: 42-92-2162yapq 1 tablet by mouth once dailyMultivitamin Active 1 TAB PO Daily June 25, 2018 11:00pmStart: 25-44-4251cjil 1 tablet by mouth once dailyMultivitamin Active 1 TAB PO Daily June 26, 2018 12:00am Multivitamin Tablet (6 sources)Start: 49-78-8039buwm 1 tablet by mouth once dailyMultivitamin Tablet Active 1 TAB PO Daily June 26, 2018 12:00am Complies with drug therapyStart: 21-07-0311dprb 1 tablet by mouth once dailyMultivitamin Tablet Active 1 TAB PO Daily June 26, 2018 12:00amStart: 13-35-7218kzkx 1 tablet by mouth once daily Multivitamin Tablet Active 1 TAB PO Daily June 25, 2018 11:00pmniacin 500 mg oral tablet (12 sources)Nicotinic AcidStart: 46-65-5431lomx 1 tablet by mouth once daily at bedtimeNiacin 500 mg Tablet Active 500 MG PO Daily at bedtime June 26, 2018 12:00am Complies with drug therapyomega 1-eoz-gqg-fish oil (FISH OIL) 100-160-1,000 mg cap (11 sources)omega 3-hqg-kje-fish oil (FISH OIL) 100-160-1,000 mg cap Take 1,000 mg by mouth. Activeomega 4-nxh-jvh-fish oil (FISH OIL) 100-160-1,000 mg cap Take 1,000 mg by mouth. 0 ActiveComment on above:Take 1,000 mg by mouth.pantoprazole 40 mg delayed release oral tablet (20 sources)Proton Pump InhibitorStart: 08-25-2023 End: 32-04-3902ssun 1 tablet by mouth once daily at breakfastPantoprazole 40 mg tablet,delayed release (DR/EC) Active 0 .ROUTE .COMPLEX 90 3 August 19, 2024 7:45am TAKE 1 TABLET BY MOUTH ONCE A DAY ON EMPTY STOMACH FOLLOWED IN 30 MINUTES WITH BREAKFAST 90 Complies with drug therapyStart: 05-29-2023 End: 78-45-8649sbpi 1 tablet by mouth once dailyPantoprazole 40 mg tablet,delayed release (DR/EC) Discontinued 40 MG PO Daily June 21, 2023 1:00am August 25, 2023 1:04pmStart: 87-84-5831Kvopkrfzbpwe [address] Tab Refills(s) 0 Start Date: 03/22/23 Status: OrderedComment on above:TAKE 1 TABLET BY MOUTH ONCE A DAY ON EMPTY STOMACH FOLLOWED IN 30 MINUTES WITH BREAKFAST 90pen needle, diabetic (BD Ultra-Fine Georgina Pen Needle) (10 sources)Start: 20-00-9479aqz needle, diabetic (BD Ultra-Fine Georgina Pen Needle) Active .Route June 21, 2023 12:00amStart: 73-54-5814jgw needle, diabetic (BD Ultra-Fine Georgina Pen Needle) Active .Route June 21, 2023 1:00am microencapsulated potassium chloride 20 meq extended release oral tablet (11 sources)Start: 87-52-2729qjoffcson chloride ER (KLOR-CON) 20 mEq tablet Take 20 mEq by mouth. 03/02/2022 ActiveComment on above:Take 20 mEq by mouth. sacubitril 24 mg / valsartan 26 mg oral tablet (20 sources)Angiotensin 2 Receptor BlockerStart: 76-51-0271pfxo 1 tablet by mouth in the morningENTRESTO 24-26 mg tablet TAKE 1 TABLET BY MOUTH IN THE MORNING AND IN THE EVENING 07/03/2023 ActiveStart: 48-45-3755fmpt 1 tablet by mouth twice dailySacubitril-Valsartan (Entresto) 24-26 mg tablet Active 1 TAB PO Twice daily June 21, 2023 1:00am Complies with drug therapyStart: 03-22-2023 Entresto 24 mg-26 mg oral tablet Refill(s) 0 Start Date: 03/22/23 Status: Ordered ENTRESTO 24 mg/26 mg 1 orally twice a day ActiveComment on above:TAKE 1 TABLET BY MOUTH IN THE MORNING AND IN THE EVENINGsildenafil 100 mg oral tablet (20 sources)Phosphodiesterase 5 InhibitorStart: 80-22-8465Lhduyfqvad 100 mg tablet Active 100 MG PO as needed June 21, 2023 1:00am Complies with drug therapyStart: 50-80-3156rrav 1 tablet by mouth once daily as neededSildenafil Citrate 100 MG 1 tablet Orally Once a day, as needed for ED for 30 days Oct, Activespironolactone 25 mg oral tablet (20 sources)Aldosterone AntagonistStart: 69-62-2258vtsi 1 tablet by mouth once dailySpironolactone 25 mg tablet Active 25 MG PO Daily June 21, 2023 1:00am Complies with drug therapyStart: 29-45-3031ppuesbvtrmxhlk 25 mg Tab Refills(s) 0 Start Date: 03/22/23 Status: OrderedComment on above:Take 25 mg by mouth every morning.tiZANidine 4 mg oral tablet (20 sources)Central alpha-2 Adrenergic AgonistStart: 85-63-7426hvnd 0.5-2 tablets by mouth once daily at bedtimeTizanidine 4 mg tablet Active 0 PO .COMPLEX June 21, 2023 1:00am TAKE 1/2 TO 2 TABLETS BY MOUTH EVERY DAY AT BEDTIME; Complies with drug therapyStart: 62-91-5511vvSXFkflsh 4 mg Tab Refills(s) 0 Start Date: 03/22/23 Status: Ordered Completed/Discontinued Medications MedicationDrug Class(es)DatesSig (Normalized)Sig (Original)atenolol 25 mg oral tablet (20 sources)beta-Adrenergic BlockerStart: 06-26-2018 End: 15-71-4596Kwiupyol 25 mg tablet Discontinued 25 MG PO 1200 June 26, 2018 12:00am June 21, 2023 5:28pm HTNcanagliflozin 300 mg oral tablet (12 sources)Sodium-Glucose Cotransporter 2 InhibitorStart: 06-26-2018 End: 91-01-9966Zejnonhcvywxl 300 mg tablet Discontinued 300 MG PO 1200 June 26, 2018 12:00am June 21, 2023 5:28pm DMciprofloxacin 500 mg oral tablet (5 sources)Quinolone AntimicrobialStart: 33-87-8620wsup 1 tablet by mouth every twelve hoursCipro 500 MG 1 tablet Orally every 12 hrs for 7 days Jul, Not-Takingempagliflozin 10 mg oral tablet (10 sources)Sodium-Glucose Cotransporter 2 Inhibitortake 1 tablet by mouth every twenty-four hoursJardiance 10 MG 1 tablet Orally Once a day for 30 day(s) Not-Takingfenofibrate 145 mg oral tablet (20 sources)Peroxisome Proliferator Receptor alpha AgonistStart: 06-26-2018 End: 59-94-3168Pvmcccfbvev Nanocrystallized 145 mg tablet Discontinued 145 MG PO 1200 June 26, 2018 12:00am June 21, 2023 5:29pm high cholesterolflash glucose sensor (FreeStyle Shivani 2 Sensor) (10 sources)Start: 06-21-2023 End: 42-53-1424purfn glucose sensor (FreeStyle Shivani 2 Sensor) Discontinued .Route June 21, 2023 12:00am November 15, 2023 6:58amStart: 06-21-2023 End: 12-54-3916qanuo glucose sensor (FreeStyle Shivani 2 Sensor) Discontinued .Route June 21, 2023 1:00am November 15, 2023 7:58amStart: 00-17-0129vsdbq glucose sensor (FreeStyle Shivani 2 Sensor) Active .Route June 21, 2023 1:00am Flash Glucose Sensor (Freestyle Shivani 2 Sensor) kit (7 sources)Start: 11-15-2023 End: 73-75-3216Ieesn Glucose Sensor (Freestyle Shivani 2 Sensor) kit Discontinued 0 .ROUTE .COMPLEX 6 3 November 15, 2023 7:58am November 01, 2024 8:33am CHANGE EVERY 14 DAYSStart: 11-15-2023 End: 44-42-2066Ihram Glucose Sensor (Freestyle Shivani 2 Sensor) kit Discontinued 0 .ROUTE .COMPLEX 6 November 14, 2024 7:58am November 01, 2024 8:33am CHANGE EVERY 14 DAYSStart: 34-50-1770Ukzvn Glucose Sensor (Freestyle Shivani 2 Sensor) kit Active 0 .ROUTE .COMPLEX November 15, 2023 6:58am CHANGE EVERY 14 DAYSStart: 39-08-9362Zatyh Glucose Sensor (Freestyle Shivani 2 Sensor) kit Active 0 .ROUTE .COMPLEX November 15, 2023 7:58am CHANGE EVERY 14 DAYSfluconazole 150 mg oral tablet (10 sources)Azole AntifungalStart: 64-56-2811Eqpbftwd 150 MG 1 tablet Orally Once, repeat in 3 days if needed for 3 days August, Not-Taking hydroCHLOROthiazide 25 mg oral tablet (20 sources)Thiazide DiureticStart: 06-26-2018 End: 63-43-0058Nwgzktlslfnyshyzpjl 25 mg tablet Discontinued 25 MG PO 1200 June 26, 2018 12:00am June 21, 2023 5:29pm htn3 ml insulin aspart, human 100 unt/ml pen injector (20 sources)Insulin AnalogStart: 06-26-2018 End: 69-12-2089Ryfaiqh Aspart U-100 100 unit/mL insulin pen Discontinued June 26, 2018 12:00am June 21, 2023 5:18pminject 25 [IU] by subcutaneous injection three times daily before mealtimeinsulin aspart U-100 (NOVOLOG) 100 unit/mL Inject 25 Units subcutaneously three times a day before meals. Active insulin aspart U-100 (NOVOLOG) 100 unit/mL Inject 25 Units subcutaneously. 0 ActiveNovoLOG FlexPen 100 UNIT/ML 32 units ac breakfast and 38 units ac supper plus corrective scale 1:10ac tid (hs if >200 half dose) titrate up to 90 units/day) Subcutaneous As Directed for 90 day(s)Not-TakingComment on above: Inject 25 Units subcutaneously.Inject 25 Units subcutaneously three times a day before meals.1.5 ml insulin glargine 300 unt/ml pen injector (20 sources)Insulin AnalogStart: 02-07-2024 End: 27-73-2716Nuuqdtv Glargine U-300 Conc 300 unit/mL (1.5 mL) insulin pen Discontinued 70 UNIT SUBCUT Daily at bedtime 08 07February 07, 2024 5:11pm March 19, 2024 1:35pm Type 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 with hyperglycemia Type 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 with hyperglycemia 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 DMStart: 11-01-2023 End: 63-06-1749Kpglwjr Glargine U-300 Conc 300 unit/mL (1.5 mL) insulin pen Discontinued 74 UNIT SUBCUT Daily at bedtime November 01, 2023 5:07pm February 07, 2024 4:43pm DMStart: 06-21-2023 End: 28-08-5575Qnmduxf Glargine U-300 Conc 300 unit/mL (1.5 mL) insulin pen Discontinued 72 UNIT SUBCUT Daily at bedtime June 21, 2023 5:18pm November 01, 2023 5:07pm DMStart: 05-44-4038lxrdkfk glargine U-300 conc (TOUJEO MAX U-300 SOLOSTAR) 300 unit/mL (3 mL) inpn Inject 60 Units subcutaneously once daily. 03/22/2023 ActiveStart: 27-14-6503ofqoxjp glargine U-300 conc (TOUJEO MAX U-300 SOLOSTAR) 300 unit/mL (3 mL) inpn Refills(s) 0 0 03/22/2023 ActiveStart: 29-36-3690Xwjwcc Max SoloStar 300 units/mL subcutaneous solution Refills(s) 0 Start Date: 03/22/23 Status: OrderedStart: 06-26-2018 End: 03-55-8130Bqhduxb Glargine U-300 Conc 300 unit/mL (1.5 mL) insulin pen Discontinued 60 UNIT SUBCUT Daily at bedtime June 26, 2018 12:00am June 21, 2023 5:27pm DMToujeo Max SoloStar 300 UNIT/ML 70 units Subcutaneous qd for 90 days (titrate up to max 90 units/day) ActiveToujeo Max SoloStar 300 UNIT/ML 65 units Subcutaneous qd (titrate up to 90 units/day) ActiveToujeo SoloStar 300 UNIT/ML 70 units Subcutaneous At bedtime (titrate up to 80/day) Not-TakingToujeo Max SoloStar 300 UNIT/ML 84 units Subcutaneous qd for 90 day(s) (titrate up to 90 units/day)ActiveToujeo SoloStar 300 UNIT/ML 68 units Subcutaneous At bedtime (titrate up to 70/day) ActiveToujeo SoloStar 300 UNIT/ML 66 units Subcutaneous qhs for 90 day(s) (titrate up to 70 units/day) ActiveToujeo SoloStar 300 UNIT/ML 66 units Subcutaneous At bedtime (titrate up to 70/day) ActiveComment on above: Refills(s) 0Inject 60 Units subcutaneously once daily.lisinopril 10 mg oral tablet (20 sources)Angiotensin Converting Enzyme InhibitorStart: 06-26-2018 End: 85-58-1085Zhugibegqy 10 mg tablet Discontinued 10 MG PO 1200 June 26, 2018 12:00am June 21, 2023 5:29pm HTNMagnesium, Zinc, Vitamin D (12 sources)Start: 06-26-2018 End: 61-46-0989gtrr 1 tablet by mouth once daily at bedtimeMagnesium, Zinc, Vitamin D Discontinued 1 TAB PO Daily at bedtime June 25, 2018 11:00pm June 21, 2023 4:29pmStart: 06-26-2018 End: 30-04-8316kuqb 1 tablet by mouth once daily at bedtimeMagnesium, Zinc, Vitamin D Discontinued 1 TAB PO Daily at bedtime June 26, 2018 12:00am June 21, 2023 5:29pmStart: 18-90-2637ovfg 1 tablet by mouth once daily at bedtime Magnesium, Zinc, Vitamin D Active 1 TAB PO Daily at bedtime June 25, 2018 11:00pmStart: 30-28-4838pfdk 1 tablet by mouth once daily at bedtimeMagnesium, Zinc, Vitamin D Active 1 TAB PO Daily at bedtime June 26, 2018 12:00am24 hr metFORMIN hydrochloride 500 mg extended release oral tablet (20 sources)BiguanideStart: 02-01-2023 End: 34-23-5660jngu 1 tablet by mouth three times dailyMetformin 500 mg tablet extended release 24 hr Discontinued 500 MG PO Three times daily June 21, 2023 1:00am December 19, 2023 7:09amStart: 89-06-9322hpia 1 tablet by mouth every twelve hoursmetFORMIN ER (GLUCOPHAGE XR) 500 mg 24 hr tablet Take 1 tablet by mouth every 12 hours. 0 02/01/2023 ActiveStart: 06-26-2018 End: 64-70-4407Undlhslox (Glucophage) 500 mg Tablet Discontinued 1000 MG PO 1800 June 26, 2018 12:00am June 21, 2023 5:21pm DMStart: 06-26-2018 End: 20-53-9090Pghljtaqa (Glucophage) 500 mg Tablet Discontinued 500 MG PO 0300 June 26, 2018 12:00am June 21, 2023 5:29pm DMtake 1 tablet by mouth twice dailymetFORMIN HCl ER 500 MG TAKE 1 TABLET BY MOUTH TWICE A DAY for 90 Active take 500 mg by mouth four times dailymetFORMIN HCl ER 500 MG 500 mg Orally qid ActiveComment on above:Take 1 tablet by mouth every 12 hours.Take 1 tablet by mouth three times a day.omega-3 fatty acids (Fish Oil) (10 sources)Start: 06-21-2023 End: 18-15-2581kryf 1 capsule by mouth once dailyomega-3 fatty acids (Fish Oil) Discontinued 1 CAP PO Daily June 21, 2023 12:00am February 07, 2024 3:40pm Start: 06-21-2023 End: 45-36-5703cuxy 1 capsule by mouth once dailyomega-3 fatty acids (Fish Oil) Discontinued 1 CAP PO Daily June 21, 2023 1:00am February 07, 2024 4:40pm Start: 99-98-5510zsof 1 capsule by mouth once dailyomega-3 fatty acids (Fish Oil) Active 1 CAP PO Daily June 21, 2023 1:00ampioglitazone 30 mg oral tablet (13 sources)Peroxisome Proliferator Receptor alpha Agonist, Peroxisome Proliferator Receptor gamma Agonist, Thiazolidinedionetake 1 tablet by mouth once daily at bedtimePioglitazone HCl 30 MG 1 tablet Orally Once a day at hs Not-Taking Problems Active Problems Problem ClassificationProblemDateDocumented DateEpisodic/ChronicAbdominal pain (1 source)Epigastric painEpisodicAcute myocardial infarction (4 sources)Non-ST elevation (NSTEMI) myocardial infarction; 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: [NON- ST ELEVATION MYOCARDIAL INFARCT]Onset: 63-99-9784ZflkkijQacelnfrqowapr/social admission (20 sources)Dietary management surveillance; 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: [Dietary counseling and surveillance]Onset: 03-24-2021 Resolved: 14-33-1709NdtrxvvcGberywy dysrhythmias (20 sources)Atrial fibrillation; 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: [Unspecified atrial fibrillation] Onset: 30-78-8274DkgfwebGtckozy ulcer of skin (1 source)Non-pressure chronic ulcer of other part of left foot limited to breakdown of skin; 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: [N-PRS ULCR OTH PRT LT FT BRKDWN SKN]Onset: 31-35-0819KuqdzrnTqmtwjiiknps of device; implant or graft (8 sources)Arteriosclerosis of coronary artery bypass graft; 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: [Atherosclerosis of coronary arterybypass graft(s) without angina pectoris] Onset: 517226-53-9135PgyunbaXisiyezoehxck of surgical procedures or medical care (2 sources)Other postprocedural complications and disorders of the circulatory system, not elsewhere classified; 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: [Other postprocedural complications and disorders of the circulatory system, not elsewhere classified] Onset: 09-75-6063DluqtngoSejtxnxvgm heart failure; nonhypertensive (20 sources)Heart failure with normal ejection fraction; 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: [Unspecified diastolic (congestive) heart failure]Onset: 43-55-7702Cmmladm Comment on above:Echo: LVEF 50%, WARREN, normal RV size/function - oronary atherosclerosis and other heart disease (20 sources)Coronary arteriosclerosis; 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: [Atherosclerotic heart disease of [place] coronary artery without angina pectoris]Onset: 01-06-2022 ChronicComment on above:PCI/stent - 2007, CABG x - 12/2021, Echo: LVEF 50%, normal RV size/function - 06/2024,Coronary atherosclerosis and other heart disease (9 sources)Presence of aortocoronary bypass graft; 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: [PRESENCE AORTOCORONARY BYPASS GRAFT]Onset: 54-52-6078PigmktpzLyodlwpp injury or internal injury (7 sources)Crushing injury of right index finger, initial encounter; 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: [Crushing injury of foot]EpisodicDiabetes mellitus with complications (20 sources)Hyperglycemia due to type 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; 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: [Type 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 with hyperglycemia]Onset: 01-06-2021 Resolved: 65-02-4107PfusqosZnmwccgv mellitus without complication (20 sources)Type 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 without complication; 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: [Type 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 without complications]Onset: 702037-42-7177Diatejg Disorders of lipid metabolism (20 sources)Hypertriglyceridemia; 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: [Pure hyperglyceridemia]Onset: 03-24-2021 Resolved: 98-95-0841HgjfjvhE Codes: Fall (2 sources)Accidental fall ; 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: [Unspecified fall, initial encounter] 16-98-2122NbfzrhqdTldexgvabh disorders (20 sources)Gastro-esophageal reflux disease with esophagitis; 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: [Gastroesophageal reflux disease with esophagitis without hemorrhage]Onset: 767422-82-1569IalropvYbcbzmpgw hypertension (20 sources)Essential hypertension; 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: [Essential (primary) hypertension]Onset: 03-24-2021 Resolved: 47-36-7143VdesypvLifhauj on above:Carotid US: < 50% B/L - 12/2021 Genitourinary congenital anomalies (2 sources)Congenital buried penis; 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]Onset: 97-81-8233PvqwqnrHehbozbsnrddb symptoms and ill-defined conditions (12 sources)Dysuria; 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: [Hematuria, unspecified]Onset: 08-11-2021 Resolved: 92-58-0719OaxwitxyIektpemvozfq conditions of male genital organs (19 sources)Balanitis; 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: [Balanitis]Onset: 23-29-0702Ftsnkce Inflammatory conditions of male genital organs (17 sources)Acute prostatitis; 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: [Acute prostatitis]Episodic Intestinal infection (1 source)Sijymbmjlkckh80-85-5921WeicjozsSeiinqpsnvy deficiencies (20 sources)Vitamin D deficiency; 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: [Vitamin D deficiency, unspecified]ChronicNutritional deficiencies (20 sources)Deficiency of other specified B group vitamins; 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: [Cobalamin deficiency]Onset: 10-21-2021 Resolved: 01-34-9580CbtlsidnPhcs wounds of extremities (17 sources)Open wound of toe(s) with damage to nail; 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: [Unspecified open wound of unspecified toe(s) with damage to nail, subsequent encounter] EpisodicOsteoarthritis (5 sources)Osteoarthritis of left foot; 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: [Primary osteoarthritis, left ankle and foot]31-83-8015LfbxodsVdgbu aftercare (20 sources)Long-term current use of insulin; 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: [senior living (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]EpisodicOther aftercare (1 source)Long-term current use of anticoagulant; 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: [superintendent terminal (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 of anticoagulants]Onset: 09-17-4424KjudkxnyRqwot and ill-defined heart disease (1 source)Heart bukdmlq22-45-6973CeguijrXnyau connective tissue disease (18 sources)Pain in right foot; 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: [Pain in right foot]Onset: 02-78-2493YbqswymyUgjvx connective tissue disease (7 sources)Pain in left lower limb; 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: [Pain in left leg]04-23-2024 EpisodicOther connective tissue disease (1 source)Pain in left leg; 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: [Pain in limb]14-34-7270RhpjmehkDsqnh diseases of veins and lymphatics (17 sources)Peripheral venous insufficiency; 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: [Venous insufficiency (chronic) (peripheral)]EpisodicOther diseases of veins and lymphatics (3 sources)Venous insufficiency (chronic) (peripheral)EpisodicOther hereditary and degenerative nervous system conditions (1 source)Other idiopathic peripheral autonomic neuropathy; 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: [OTH IDIO PERIPH AUTONOM NEUROPATHY]Onset: 76-26-7686ZlnjuagVhtgb lower respiratory disease (1 source)Chronic pulmonary edema; 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: [CHRONIC PULMONARY EDEMA]Onset: 52-94-5274YagkdfbVbjwb male genital disorders (13 sources)Erectile dysfunction co-occurrent and due to arterial insufficiency; 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: [Erectile dysfunction due to arterial insufficiency]ChronicOther male genital disorders (3 sources)Erectile dysfunction due to arterial insufficiencyChronicOther male genital disorders (15 sources)Male erectile dysfunction, unspecified; 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: [Erectile dysfunction]Onset: 41-63-6895NfodpuoZbdcq male genital disorders (13 sources)Acquired buried penis; 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]Onset: 514721-43-1349JgehyslXupxi male genital disorders (12 sources)Fibrosis of corpus cavernosum; Translations: [Induration penis plastica]Onset: 231598-00-9201KulykblNghxo male genital disorders (1 source)Acquired buried penis; 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]Onset: 07-08-9139WmrquubFdrvx male genital disorders (1 source)Induration penis plastica; Translations: [Scarring of penis]Onset: 58-29-5915KbnvqxsVysny male genital disorders (1 source)Erectile dysfunction due to diseases classified elsewhere; Translations: [Erectile dysfunction associated with type 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 (HCC) (HCC)]Onset: 40-60-0453JirhprgDlmev male genital disorders (11 sources)Phimosis; Translations: [Phimosis]Onset: 97-77-0949FcbwvaidPyjwj non-traumatic joint disorders (17 sources)Arthropathy associated with a neurological disorder; Translations: [Charcot's joint, left ankle andfoot]ChronicOther non-traumatic joint disorders (2 sources)Arthralgia of the pelvic region and thigh; Translations: [Pain in left hip]66-68-8438ReucqpykLmllk nutritional; endocrine; and metabolic disorders (20 sources)Obese class II; Translations: [Body mass index (BMI) 37.0-37.9, adult]ChronicOther nutritional; endocrine; and metabolic disorders (20 sources)Obesity; Translations: [Obesity, unspecified]08-77-6059VufavafAlvno nutritional; endocrine; and metabolic disorders (20 sources)Body mass index 40+ - severely obese; Translations: [Body mass index (BMI) 40.0-44.9, adult]ChronicOther nutritional; endocrine; and metabolic disorders (5 sources)Body mass index (BMI) 40.0-44.9, adult; Translations: [BODY MASS INDEX BMI 40.0-44.9 ADULT]Onset: 03-24-2021 Resolved: 90-41-9869HtxgxaeOsvkt nutritional; endocrine; and metabolic disorders (17 sources)Morbid obesity; Translations: [Morbid (severe) obesity due to excess calories]ChronicOther nutritional; endocrine; and metabolic disorders (6 sources)Body mass index (BMI) 39.0-39.9, adult; Translations: [Body Mass Index 39.0-39.9, adult]Onset: 58-57-2503MhulcovAfxbz nutritional; endocrine; and metabolic disorders (2 sources)Obesity, unspecified; Translations: [Obesity, unspecified]Onset: 801094-01-5645YpfwdbaWqbcb nutritional; endocrine; and metabolic disorders (20 sources)Body mass index 30+ - obesity; Translations: [Body mass index (BMI) 39.0-39.9, adult]49-91-8133TfhntngOdhpu nutritional; endocrine; and metabolic disorders (7 sources)Obesity caused by energy imbalance; Translations: [Other obesity due to excess calories]Onset: 862391-23-3244DeezinqJieug nutritional; endocrine; and metabolic disorders (1 source)Other obesity due to excess calories; Translations: [Class 2 obesity due to excess calories withoutserious comorbidity with body mass index (BMI) of 39.0 to 39.9 in adult]Onset: 71-68-6471MalqmglEqrxz nutritional; endocrine; and metabolic disorders (4 sources)Body mass index (BMI) 38.0-38.9, adult; Translations: [Body Mass Index 38.0-38.9, adult]34-18-4402QchkhqyJvqst screening for suspected conditions (not mental disorders or infectious disease) (8 sources)Encounter for screening for malignant neoplasm of prostate; Translations: [Patient encounter status]EpisodicSkin and subcutaneous tissue infections (2 sources)Cutaneous abscess of right handEpisodicSpondylosis; intervertebral disc disorders; other back problems (18 sources)Lumbosacral spondylosis with radiculopathy; Translations: [Other spondylosis with radiculopathy, lumbosacral region]Onset: 99-92-0339Tddrtgs Spondylosis; intervertebral disc disorders; other back problems (2 sources)Low back pain; Translations: [Low back pain]92-53-2215Cbohqepk Superficial injury; contusion (14 sources)Blister (nonthermal), left great toe, initial encounter; Translations: [Contusion of unspecified finger with damage to nail, initial encounter]EpisodicUnclassified (1 source)CONTACT W/AND (SUSP) EXPOS COVID-19; Translations: [CONTACT W/AND (SUSP) EXPOS COVID-19]Onset: 92-50-2353Vlqjwsshkagv (1 source)Drug therapy -95-4042 Past or Other Problems Problem ClassificationProblemDateDocumented DateEpisodic/ChronicEsophageal disorders (4 sources)Esophageal disordersMycoses (1 source)Tinea unguium; Translations: [TINEA UNGUIUM]Onset: 13-14-1336Yzuxkvzg Nonspecific chest pain (3 sources)Chest pain, unspecified; Translations: [CHEST PAIN UNSPECIFIED]Onset: 62-08-1012BxlrmvysOucdd aftercare (9 sources)senior living (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; Translations: [FRONT DESK RECEPTIONIST CURRENT USE OF INSULIN]Onset: 03-24-2021 Resolved: 34-00-1298ZbohpvtyHgyjl aftercare (1 source)senior living (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 of oral hypoglycemic drugs; Translations: [[facility] USE ORAL HYPOGLYCEMIC DX]Onset: 66-13-1151EkvrteogJsgzl connective tissue disease (3 sources)Pain in right foot; Translations: [PAIN IN RIGHT FOOT]Onset: 00-41-4148KtbtmozpPasru connective tissue disease (1 source)Pain in left foot; Translations: [PAIN IN LEFT FOOT]Onset: 09-20-2021 EpisodicOther nervous system disorders (1 source)Other acute postprocedural pain; Translations: [Acute post-operative pain]Onset: 12-80-2394RbxcfqmcHobqv skin disorders (4 sources)Nail dystrophy; Translations: [NAIL DYSTROPHY]Onset: 09-09-2021 EpisodicSprains and strains (8 sources)Strain of muscle, fascia and tendon of lower back, subsequent encounter; Translations: [Strain of muscle, fascia and tendon of lower back, initial encounter]Onset: 58-30-1027BcbkatqsBsvnjgv tract infections (2 sources)Urinary tract infection, site not specifiedOnset: 08-11-2021 Resolved: 64-02-2688Ggrsywhd Results Test NameValueInterpretationReference ZqokvYblakvhwKvH4l HPLC (Bld) [Mass fraction]Ordered By: Yamilex Foster on 31-69-7487VvY6r (Bld) [Mass fraction]7.0 % [facility] HospitalNo Panel InformationOrdered By: Yamilex Foster on 72-76-6324Roaqvsh Femlmud631GzhimvqnjCleveland Clinic Medina HospitalLaboratory - Chemistry and Chemistry - challengeon 88-44-6678Jvasxfsxh (Vitamin B12) [Mass/Vol]601 pg/eN652-1384CsjhszgvaCleveland Clinic Medina HospitalComment on above: Performed at: [facility] [id number] Director: Toy Conroy PhD, Phone: [phone] [Mass/volume] in Urineon 84-21-6251Korzrtg DL <= 20 mg/L (U) [Mass/Vol]2.3 mg/dL<=30.0[facility] HospitalNo Panel Informationon 87-91-6717Ydhep Random Creatinine 78.24 mg/dL20.00-300.00[facility] HospitalUrine microalbumin/creatinine mass ratioon 82-46-6915Kiecsbh/Creatinine DL <= 20 mg/L (U) [Mass ratio]29.3 mg/g0.0-29.9[facility] HospitalComment on above:NO MICROALBUMINURIA 0-29 MG/GCLINICAL MICROALBUMINURIA 30-300 MG/GMACROALBUMINURIA >300 MG/GHbA1c HPLC (Bld) [Mass fraction]on 51-21-8075HfC4v (Bld) [Mass fraction]6.9 %[facility] HospitalNo Panel Information on 56-39-2804Mchlcdh Jqgtlew492QddhbuanaCleveland Clinic Medina HospitalBasophils Auto (Bld) [#/Vol]on 21-53-5240Nkmpsuuhd (Bld) [#/Vol]Automated basophil count0.0-0.1 [facility] HospitalBasophils/100 WBC Auto (Bld)on 07-13-2024 Basophils/100 WBC (Bld)Automated basophil %0.2-2.0[facility] HospitalCholesterol in LDL Calc [Mass/Vol]on 25-49-7614Sxzsihrrlpu in LDL [Mass/Vol]Cholesterol in LDL [Mass/volume] in Serum or Plasma by calculation [facility] HospitalComment on above:<100 mg/dl MCOPMSA793-037 mg/dl NEAR OR ABOVE ARHOSRS072-743 mg/dl BORDERLINE XTUS371-363 mg/dl HIGH>190 mg/dl VERY HIGHCholesterol in VLDL Calc [Mass/Vol]on 74-28-8374Ewbobjwcxrb in VLDL [Mass/Vol]Cholesterol in VLDL [Mass/volume] in Serum or Plasma by calculationCleveland Clinic Medina HospitalEosinophils/100 WBC Auto (Bld)on 95-00-5967Pppxzqedcqo/100 WBC (Bld)Automated eosinophil %0.9-7.0[facility] HospitalErythrocyte distribution width Auto (RBC) [Ratio]on 26-02-3290Lyzdvkssldr distribution width (RBC) [Ratio]Erythrocyte distribution width [Ratio] by Automated yeywaIrep22.0-15.0[facility] Estimated glomerular filtration rate (GFR) non- Americanon 07-13-2024 GFR/1.73 sq M.predicted among non-blacks MDRD (S/P/Bld) [Vol rate/Area]Estimated glomerular filtration rate (GFR) non->=60 mL/min/1.73m 2 [facility] HospitalGlobulin Calc (S) [Mass/Vol]on 07-13-2024 Globulin (S) [Mass/Vol]Serum globulin measurement by calculation (mass/volume) [facility] HospitalHematocrit Auto (Bld) [Volume fraction]on 06-62-8456Yasjvyzshe (Bld) [Volume fraction]Hematocrit [Volume Fraction] of Blood by Automated count42.0-54.0[facility] HospitalHemoglobin [Mass/volume] in Bloodon 20-49-0533Mvtildweha (Bld) [Mass/Vol]Hemoglobin [Mass/volume] in Blood14.0-18.0[facility] HospitalLaboratory - Chemistry and Chemistry - challengeon 33-35-9336Fekgkwj [Mass/Vol]3.3 g/dLLow 3.4-5.0[facility] HospitalALP [Catalytic activity/Vol]135 U/LHigh 46-116[facility] HospitalALT [Catalytic activity/Vol]30 U/L16-63 [facility] HospitalAST [Catalytic activity/Vol]19 U/L15-37 [facility] HospitalBilirubin [Mass/Vol]0.4 mg/dL0.2-1.0[facility] HospitalCalcium [Mass/Vol]9.2 mg/dL8.5-10.1FKettering Health MiamisburgChloride [Moles/Vol]104 mmol/G47-032VssjucyocCleveland Clinic Medina HospitalCholesterol [Mass/Vol]111 mg/dL<=200[facility] Cholesterol in HDL [Mass/Vol]35 mg/mNFlb94-66GauhnaqeeC[facility] Clinic Med[facility] Hospital Comment on above:> or =60 mg/dl - LOW CARDIOVASCULAR RISK<40 mg/dl - HIGH CARDIOVASCULAR RISKCO2 [Moles/Vol]29.1 mmol/L21.0-32.0[facility] HospitalCreatinine [Mass/Vol]0.93 mg/dL0.70-1.30[facility] GFR/1.73 sq M.predicted MDRD (S/P/Bld) [Vol rate/Area]mL/min/{1.73_m2}>=60 mL/min/1.73m 2FKettering Health MiamisburgGlucose [Mass/Vol]168 mg/dLHigh 74-106[facility] HospitalPotassium [Moles/Vol]4.0 mmol/L3.5-5.1 [facility] HospitalProtein [Mass/Vol]7.5 g/dL6.4-8.2FMercy Health Clermont Hospitalodium [Moles/Vol]142 mmol/O109-264ZwbhdouygCleveland Clinic Medina HospitalTriglyceride [Mass/Vol]198 mg/dLHigh<=150[facility] HospitalUrea nitrogen [Mass/Vol]17.0 mg/dL7.0-18.0[facility] HospitalUrea nitrogen/Creatinine [Mass ratio]18.3 mg/mgCleveland Clinic Medina HospitalLaboratory - Hematology and Cell countson 33-99-8925Ezohygzo granulocytes/100 WBC (Bld)0.5 %0.0-0.5FKettering Health Miamisburg Leukocytes [#/volume] corrected for nucleated erythrocytes in Blood by Automated counon 31-87-1160UAM corrected for nucl RBC Auto (Bld) [#/Vol]Leukocytes [#/volume] corrected for nucleated erythrocytes in Blood by Automated coun 4.0-11.0[facility] HospitalLymphocytes Auto (Bld) [#/Vol]on 60-28-8861Kdeugnrlwff (Bld) [#/Vol]Lymphocytes [#/volume] in Blood by Automated count1.2-3.8[facility] HospitalLymphocytes/100 WBC Auto (Bld)on 69-50-0847Sbtyuxgtwyk/100 WBC (Bld)Lymphocytes/100 leukocytes in Blood by Automated count20.5-60.0[facility]H Auto (RBC) [Entitic mass]on 32-72-7622GNC (RBC) [Entitic mass]MCH [Entitic mass] by Automated count 25.9-34.0TriHealthHC Auto (RBC) [Mass/Vol]on 61-29-9675ZYDW (RBC) [Mass/Vol]MCHC [Mass/volume] by Automated count29.9-35.2 [facility] HospitalMCV Auto (RBC) [Entitic vol]on 72-91-4459MHZ (RBC) [Entitic vol]MCV [Entitic volume] by Automated count80.0-94.0[facility] HospitalMonocytes Auto (Bld) [#/Vol]on 97-20-3301Uqhrcrfiy (Bld) [#/Vol]Automated blood monocyte countHigh0.3-0.8[facility] HospitalMonocytes/100 WBC Auto (Bld)on 77-18-5605Mmjdaabqj/100 WBC (Bld)Automated monocyte %1.7-12.0[facility] HospitalNeutrophils Auto (Bld) [#/Vol]on 18-57-3736Obldhjwnknq (Bld) [#/Vol]Neutrophils [#/volume] in Blood by Automated count1.4-6.5FKettering Health MiamisburgNeutrophils/100 WBC Auto (Bld)on 23-14-9647Yyevvspgmou/100 WBC (Bld)Automated neutrophil %43.0-75.0 [facility] HospitalNo Panel Informationon 33-28-6397Kexpivuqopk # (Auto)0.3 10 3/uL0.0-0.7FKettering Health MiamisburgImmature Granulocyte # (Auto)0.04 10 3/uLHigh0.00-0.03[facility] HospitalPlatelet mean volume Auto (Bld) [Entitic vol]on 63-81-6781Rccrmcga mean volume (Bld) [Entitic vol]Platelet mean volume [Entitic volume] in Blood by Automated count9.5-13.5 [facility] HospitalPlatelets Auto (Bld) [#/Vol]on 07-13-2024 Platelets (Bld) [#/Vol]Platelets [#/volume] in Blood by Automated -443 [facility] HospitalRBC Auto (Bld) [#/Vol]on 58-91-2773TYI (Bld) [#/Vol]Erythrocytes [#/volume] in Blood by Automated count4.70-6.10[facility] Hospitalerum or plasma albumin/globulin mass ratioon 07-13-2024 Albumin/Globulin [Mass ratio]Serum or plasma albumin/globulin mass ratio [facility] Hospitalerum or plasma anion gap determinationon 91-79-8478Nrmrg gap [Moles/Vol]Serum or plasma anion gap determinationGeorgetown Behavioral Hospitalerum or plasma total cholesterol/high density lipoprotein (HDL) cholesterol mass evelyn 17-40-0619Zgyfzpstdpv.total/Cholesterol in HDL [Mass ratio]Serum or plasma total cholesterol/high density lipoprotein (HDL) cholesterol mass [facility] HospitalComment on above:3.3 - 4.4 LOW RISK4.4 - 7.1 AVERAGE RISK7.1 - 11.0 MODERATE RISK>11.0 HIGH RISK Office Visiton 70-93-2560Npkije-up [id number] Caden Wills A 1960 M Date Provider Department Center 07/12/2024 SIMBA REYEZ [facility] Family History Problem Relation Age of Onset Coronary artery disease Father Family Status - Relation Status Age at Father Level of Service:71220 [place] OFFICE/OUTPATIENT ESTABLISHED MOD [facility] [Mass fraction]on 02-07-2024 HbA1c (Bld) [Mass fraction]Hemoglobin A1c/Hemoglobin.total in Blood by HPLC [facility] HospitalNo Panel Informationon 00-12-4382Oklyxej Pyzffdr978RbqvvqrwuCleveland Clinic Medina HospitalTelemedicineon 42-18-8391Aafarcvfazto [id number] Caden Wills A 1960 M Date Provider Department Center 01/23/2024 CAROLINE MARRERO [facility] Family History Problem Relation Age of Onset Coronary artery disease Father Family Status - Relation Status Age at Father Level of Service:NOCHG RI 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NormalUniversity of Baylor Scott [facility] White Medical Center – GrapevineCholesterol in LDL Calc [Mass/Vol]on 31-85-1814Imqdagbdaoz in LDL [Mass/Vol]49.0 mg/dLCleveland Clinic Medina HospitalComment on above:<100 mg/dl YJYJTBL786-485 mg/dl NEAR OR ABOVE LTCRHFB543-592 mg/dl BORDERLINE WDFN081-247 mg/dl HIGH>190 mg/dl VERY HIGHCholesterol in VLDL Calc [Mass/Vol]on 01-20-2024 Cholesterol in VLDL [Mass/Vol]26.6 mg/dLCleveland Clinic Medina Hospital Laboratory - Chemistry and Chemistry - challengeon 43-04-6601Sbzalraanyc [Mass/Vol]107 mg/dL<=200[facility] HospitalCholesterol in HDL [Mass/Vol]32 mg/uKRjh87-10WawgkflfuCleveland Clinic Medina HospitalComment on above:> or =60 mg/dl - LOW CARDIOVASCULAR RISK<40 mg/dl - HIGH CARDIOVASCULAR RISK Triglyceride [Mass/Vol]133 mg/dL<=150[facility] HospitalNo Panel Informationon 38-50-5997Jigvolicpvbmh TestCOMMENT.[facility] HospitalComment on above:Test Ordered: [id number] Apolipoprotein BApolipoprotein B 68 mg/dL BN Reference Range: <90 Desirable< 90 Borderline High 90 - 99 High 100 - 130 Very High >130 ASCVD RISK THERAPEUTIC TARGET CATEGORY APO B (mg/dL) Very High Risk <80 (if extreme risk <70) High Risk <90 Moderate Risk <90Performed at: - [facility] [id number] Director: Fletcher Patel MD, Phone: [phone] at: - [facility] [address] [id number] Director: Toy Conroy PhD, Phone: [phone] or plasma total cholesterol/high density lipoprotein (HDL) cholesterol mass evelyn 13-09-0985Erfdzxtqbyk.total/Cholesterol in HDL [Mass ratio]3.3 {ratio}[facility] HospitalComment on above:3.3 - 4.4 LOW RISK4.4 - 7.1 AVERAGE RISK7.1 - 11.0 MODERATE RISK>11.0 HIGH ALYX83fw 10-73-547508Cxtwmgcb by: CAROLINE SILVA on: 01/16/2024 12:14 PM Modules accepted: OrdersNormalUniversity [facility]ima [facility] Hospital29Addended by: OPAL PEÑA on: 01/16/2024 10:44 AM Modules accepted: OrdersNormalUniversity Lima Memorial HospitalCNPNon 19-13-7761LFDKYyosbdjyr (UROLMN) CADEN IWLLS ([id number]) 1960 M Date Time Provider Department 01/15/24 JADA WILKINS During your visit today, we recorded the following information about you: Jada Wilkins APRN.CNP 01/15/2024 2:53 PM Signed ----- Message from Kourtney Sena sent at 01/15/2024 9:13 AM EDT ----- Regarding: Refill medication [facility] [place] [employer] [facility] a refill request for Cephalexin [...] Take 20 mEq by mouth. - omega 0-wfi-hab-fish oil (FISH OIL) 100-160-1,000 mg cap Take [...] *07/27/2023 Encounter Status:Closed by JADA WILKINS on 01/15/24[facility] [id number] Caden Wills 1960 M Date Provider Department Center 01/15/2024 CAROLINE MARRERO [facility] Family History Problem Relation Age of Onset Coronary artery disease Father Family Status - Relation Status Age at Father Reason for Visit and Comments: PharmD Cardiology Consult [Other][facility] HospitalCNPNon 46-34-9666SZVBQrkfmlwsx (UROLMN) CADEN WILLS ([id number]) 1960 M Date Time Provider Department 10/04/23 JADA WILKINS UROCARMEN During your visit today, we recorded the following information about you: Jada Wilkins APRN.CHROME TANNER 10/04/2023 4:18 PM Signed ----- Message from Kourtney Hdoge Patient Service Spec sent at 10/04/2023 7:36 AM EDT ----- Regarding: Medication refill [facility] faxed over a refill request for Cephalexin [...] Alberto in the fall. Left voicemail at [facility] in [employer], advising that Caden Wills does NOT need refill on Keflex and asking them to take it off auto refill. Jada Wilkins APRN.CHROME TANNER Allergies As of Date: 10/04/2023 (No Known [...] Take 20 mEq by mouth. - omega 3-kke-vfn-fish oil (FISH OIL) 100-160-1,000 mg cap Take [...] *07/27/2023 Encounter Status:Closed by JADA WILKINS on 10/04/23[facility] HospitalConsultation Noteon 39-86-3105Ortnovggfzmm Note [id number]#1.00TIFFWVUMedicine Harrison Community HospitalCNOVon 88-22-5021TTNPCcevxp Visit (UROZANDERN) CADEN WILLS ([id number]) 1960 M Date Time Provider Department 09/13/23 [...] tablet Take 20 mEq by mouth. omega 0-zoj-zek-fish oil (FISH OIL) 100-160-1,000 mg cap Take 1,000 mg by mouth. No current facility-administered medications on file prior to visit. DATA/OR LABS TO BE REVIEWED: (Simple=1 data point; Complex= 2 or more) No results found for: PSA Creatinine (mg/dL) Date Value 07/29/2023 0.71 07/28/2023 0.75 07/27/2023 0.73 No results found for: TESTOST Noy Mary cold reduction roller Staff Note: I performed a face to [...] Jian Alberto MD Referring Provider: GIOVANNI MULLIGAN [[id number]] Allergies As of Date: 09/13/2023 (No Known [...] (TOUJEO MAX U-300 SOLOST (more content not included)...NormalTuscarawas HospitalCNOVon 64-73-0773VSPWYyuqbx Visit (UROLMN) CADEN WILLS ([id number]) 1960 M Date Time Provider Department 08/04/23 2:30 PM GIOVANNI MULLIGAN UROKris During your visit today, we recorded the following information about you: Weight Height 124.3 kg 1.778 m Giovanin Mulligan MD 08/04/2023 5:46 PM Signed HPI Caden Wills is a 63 year [...] Take 20 mEq by mouth. - omega 5-ozv-avp-fish oil (FISH OIL) 100-160-1,000 mg cap Take [...] *07/27/2023 Encounter Status:Closed by GIOVANNI MULLIGAN on 08/04/23NormalCSt. Anthony's Hospital metabolic 2000 panelon 42-11-5058Pesld gap [Moles/Vol]14 mmol/L Normal9-18[facility] on above:Order Comment: Specimen Type: BLOOD SPECIMEN [facility]ing Facility: [facility] Address: [address] [place], [place] [address]Performed By: #### 72710-2 #### [facility] CLIA [id number] [address] [place] [address] [place] AMERICACalcium [Mass/Vol]8.9 mg/dL Normal8.5-10.2CHenry County Hospital on above:Order Comment: Specimen Type: BLOOD SPECIMEN Ordering Facility: [facility] Address: [address] [place], [place] [address]Performed By: #### 19538-0 #### [facility] CLIA [id number] [address] [place] [address] [place] AMERICAChloride [Moles/Vol]102 mmol/ELkxodd16-315MrgieuvavMercy Health West Hospital on above:Order Comment: Specimen Type: BLOOD SPECIMEN Ordering Facility: [facility] Address: [address] [place], [place] [address]Performed By: #### 03135-6 #### [facility] CLIA [id number] [address] [place] [address] [place] AMERICACO2 [Moles/Vol]23 mmol/L Apjggn33-48AtfqvtepwMercy Health West Hospital on above:Order Comment: Specimen Type: BLOOD SPECIMEN Ordering Facility: [facility] Address: [address] [place], [place] [address]Performed By: #### 81042-0 #### [facility] CLIA [id number] [address] [place] [address] [place] AMERICACreatinine [Mass/Vol]0.71 mg/dLLow0.73-1.22[facility] on above:Order Comment: Specimen Type: BLOOD SPECIMEN Ordering Facility: [facility] Address: [address] [place], [place] [address]Performed By: #### 76440-3 #### [facility] [place] [id number] [address] [place] [address] [place] AMERICACreatinine and Glomerular filtration rate.predicted panel (S/P/Bld)104 mL/min/1.73m???Normal>=60[facility] on above:Order Comment: Specimen Type: BLOOD SPECIMEN [facility] Facility[facility] Address: [address] [place], [place] [address]Result Comment: Estimated Glomerular Filtration Rate (eGFR) is calculated using the 2020 CKD-EPI cre atinine equation. This equation utilizes serum creatinine, sex, and age as parameters. The creatinine assay has traceable calibration to isotope dilution- mass spectrometry. Refer to KDIGO guidelines for clinical interpretation. In patients with unstable renal function, e.g. those with acute kidney injury, the eGFR may not accurately reflect actual GFR.Performed By: #### 68877-8 #### [facility] CLIA [id number] [address] [place] [address] [place] AMERICAGlucose [Mass/Vol]173 mg/dL Eygs20-92HqpbhssfbMercy Health West Hospital on above:Order Comment: Specimen Type: BLOOD SPECIMEN Ordering Facility: [facility] Address: [address] [place], [place] [address]Result Comment: The [place] Diabetes Association (ADA) provides guidance for cutoff [...] Standards of Medical Care in Diabetes 2016, [place] [employer]. Diabetes Care. 2016.39(Suppl 1).Performed By: #### 69198-2 #### [facility] CLIA [id number] [address] [place] [address] [place] AMERICAPotassium [Moles/Vol]4.3 mmol/LNormal3.7-5.1CHenry County Hospital on above:Order Comment: Specimen Type: BLOOD SPECIMEN Ordering Facility: [facility] Address: [address] [place], [place] [address]Performed By: #### 56791-7 #### [facility] [place] [id number] [address] [place] [address] STATES OF [facility] CENTERSodium [Moles/Vol]139 mmol/L Huoukq745-489EobqjhrzjMercy Health West Hospital on above:Order Comment: Specimen Type: BLOOD SPECIMEN Ordering Facility: [facility] Address: [address] [place], [place] [address]Performed By: #### 41187-3 #### [facility] [place] [id number] [address] [place] [address] [place] AMERICAUrea nitrogen [Mass/Vol]18 mg/dLNormal9-24[facility] on above:Order Comment: Specimen Type: BLOOD SPECIMEN Ordering Facility: [facility] Address: [address] [place], [place] [address]Performed By: #### 16015-1 #### [facility] CLIA [id number] [address] [place] [address] [place] AMERICACBC panel Auto (Bld)on 97-15-6922Awjxfcinupa distribution width (RBC) [Ratio]15.8 %High11.5-15.0 [facility] on above:Order Comment: Specimen Type: BLOOD SPECIMEN Ordering Facility: [facility] Address: [address] [place], [place] [address]Performed By: #### 72705-9 #### [facility] CLIA [id number] [address] [place] [address] [place] AMERICAHematocrit (Bld) [Volume fraction]44.7 %Wfesez32.0-51.0[facility] on above:Order Comment: Specimen Type: BLOOD SPECIMEN Ordering Facility: [facility] Address: [address] [place], [place] [address]Performed By: #### 51714-1 #### [facility] CLIA [id number] [address] [place] [address] OF AMERICAHemoglobin (Bld) [Mass/Vol] 14.5 g/wHGgpmck27.0-17.0[facility] on above:Order Comment: Specimen Type: BLOOD SPECIMEN Ordering Facility: [facility] Address: [address] [place], [place] [address]Performed By: #### 74768-2 #### [facility] CLIA [id number] [address] [place] [address] [place] AMERICAMCH (RBC) [Entitic mass]27.4 vaCteosj32.0-34.0[facility] on above:Order Comment: Specimen Type: BLOOD SPECIMEN Ordering Facility: [facility] Address: [address] [place], [place] [address]Performed By: #### 32012-8 #### [facility] CLIA [id number] [address] [place] [address] [place] AMERICAMCHC (RBC) [Mass/Vol]32.4 g/aMOowswj96.5-36.0[facility] on above:Order Comment: Specimen Type: BLOOD SPECIMEN Ordering Facility: [facility] Address: [address] [place], [place] [address]Performed By: #### 09861-3 #### [facility] CLIA [id number] [address] [place] [address] [place] AMERICAMCV (RBC) [Entitic vol]84.3 xPVhgdmp76.0-100.0[facility] on above:Order Comment: Specimen Type: BLOOD SPECIMEN Ordering Facility: [facility] Address: [address] [place], [place] [address]Performed By: #### 17345-1 #### [facility] CLIA [id number] [address] [place] [address] [place] AMERICANucleated RBC (Bld) [#/Vol] 10*3/uLNormal<0.01[facility] on above:Order Comment: Specimen Type: BLOOD SPECIMEN Ordering Facility: [facility] Address: [address] [place], [place] [address]Performed By: #### 23671-6 #### [facility] CLIA [id number] [address] [place] [address] [place] AMERICAPlatelet mean volume (Bld) [Entitic vol]9.6 fLNormal9.0-12.7CHenry County Hospital on above: Order Comment: Specimen Type: BLOOD SPECIMEN [facility] Facility[facility] Address: [address] [place], [place] [address]Performed By: #### 37696-4 #### [facility] CLIA [id number] [address] [place] [address] [place] AMERICAPlatelets (Bld) [#/Vol]268 10*3/fIXtaubw568-424HqxphgzhoMercy Health West Hospital on above:Order Comment: Specimen Type: BLOOD SPECIMEN [facility] Facility[facility] Address: [address] [place], [place] [address]Performed By: #### 64305-8 #### [facility] CLIA [id number] [address] [place] [address] AMERICARBC (Bld) [#/Vol]5.30 10*6/uLNormal4.20-6.00[facility] on above:Order Comment: Specimen Type: BLOOD SPECIMEN [facility] Facility[facility] Address: [address] [place], [place] [address]Performed By: #### 15559-4 #### [facility] CLIA [id number] [address] [place], [place] [address]W (Bld) [#/Vol]13.43 10*3/uLHigh3.70-11.00[facility] on above:Order Comment: Specimen Type: BLOOD SPECIMEN [facility] Facility[facility] Address: [address] [place], [place] [address]Performed By: #### 66666-8 #### [facility] CLIA [id number] [address] [place], [place] [address]CNAvita [facility] System 09-10-4322ZJILIOE ID: [id number] Author: JIAN ALBERTO MD Service: Urology Author Type: Resident Type: Discharge Summary Filed: 07/29/2023 12:28 Note Text: Attestation signed by Jian Alberto MD at 07/29/2023 12:28 PM Discussed with resident, agree with claudia Alberto M.D. 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) Operations During Hospitalization: CYSTOSCOPY FLEXIBLE: 78194 (CPT?) SCROTOPLASTY V-Y: 73907 (CPT?) EXCISION, EXCESSIVE SKIN AND SUBCUTANEOUS TISSUE, OTHER AREA prepubic lipectomy with fixation of skin to pubic region: 48384 (CPT?) EXCISION LYSIS PENILE POST-CIRCUMCISION ADHESIONS: 02965 (CPT?) Procedures Performed While Hospitalized: Intubation Reason [...] OiL 100-160-1,000 mg Cap Generic drug: omega 7-sxf-mev-fish oil insulin aspart U-100 100 unit/mL Commonly [...] These [id number] [place] [address] [facility] [address] [facility] - [phone] [facility] [address] [facility] [address] acetaminophen 325 mg tablet cephALEXin 500 mg capsule docusate sodium 100 mg capsule oxyCODONE IR 5 mg immediate release tablet Future Appointments: No future appointments. Electronically STEPHANIE (more content not included)...NormalCleveland ClinicvelandANES POSTPROC EVALon 74-03-1358WCPO POSTPROC EVALHNO ID: [id number] Author: CHILANGO CURIEL MD Service: ? Author Type: Anesthesiologist Type: Anesthesia Postprocedure Evaluation Filed: 07/28/2023 13:45 Note Text: POST ANESTHESIA EVALUATION NOTE : 1960 Procedure Summary Date: 07/28/23 [address] Anesthesia Start: 0950 Anesthesia Stop: 1254 Procedures: [...] July 28, 2023 TIME: 1:45 PM CSN: [id number] [facility] PRE-OPon 28-93-3498LGTX PRE-OPHNO ID: [id number] Author: CHILANGO CURIEL MD Service: ? 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 - omega 3-hpc-emg-fish oil (FISH OIL) 100-160-1,000 mg cap Take 1,000 mg by mouth. I have interviewed and examined the patient. I have reviewed the medical record and/or the pre-anesthesia evaluation, pertinent labs, and test results. This contains updated information obtained within 48 hours of Surgery/Procedure. SIGNATURE: Chilango Curiel MD PATIENT NAME: Caden Wills DATE: July 28, 2023 TIME: 9:53 AM CSN: [id number]h [facility] OP NOTon [id number] OP NOTHNO ID: [id number] Author: JUICE GEE MD Service: Urology Author Type: Resident Type: Brief Op Note Filed: 07/28/2023 12:38 Note Text: BRIEF OPERATIVE / PROCEDURE NOTE LOG ID: [id number] SURGERY/PROCEDURE DATE: 07/28/2023 INCISION/PROCEDURE START TIME: 10:32 AM INCISION CLOSE/PROCEDURE END TIME: 12:25 PM SURGEON(S)/PROCEDURALIST(S) AND PRESSER COTTON GINNING(S): Surgeon(s) and Role: * Jian Alberto MD [...] CLOSURE TECHNIQUE: Primary PRE-OP/PRE-PROCEDURE DIAGNOSIS: Buried penis POST-OP/POST-PROCEDURE DIAGNOSIS: Same as Preop SIGNATURE: Juice Gee MD PATIENT NAME: Caden Wills DATE: July 28, 2023 TIME: 12:36 PMNormalMedina Hospital metabolic 2000 panelon 86-75-8901Atgpg gap [Moles/Vol]13 mmol/LNormal9-18[facility] Comment on above:Order Comment: Specimen Type: BLOOD SPECIMEN [facility] Address: [address] [place], [place] [address]Performed By: #### 18745-7 #### [facility] CLIA [id number] [address] [place] [address] [place] OF AMERICACalcium [Mass/Vol]9.3 mg/dL Normal8.5-10.2CHenry County Hospital on above:Order Comment: Specimen Type: BLOOD SPECIMEN [facility] Facility[facility] Address: [address] [place], [place] [address]Performed By: #### 03508-5 #### [facility] CLIA [id number] [address] [place] [address] [place] AMERICAChloride [Moles/Vol]104 mmol/WZotelj78-967MjxgrzfidTuscarawas HospitalCommclaren central [place] on above:Order Comment: Specimen Type: BLOOD SPECIMEN [facility] Facility[facility] Address: [address] [place], [place] [address]Performed By: #### 32081-5 #### [facility] CLIA [id number] [address] [place] [address] [place] AMERICACO2 [Moles/Vol]23 mmol/L Uaossp81-21PhedutlunTuscarawas HospitalCommclaren central [place] on above:Order Comment: Specimen Type: BLOOD SPECIMEN [facility] Facility[facility] Address: [address] [place], [place] [address]Performed By: #### 30166-2 #### [facility] CLIA [id number] [address] [place], [place] [address] [place] AMERICACreatinine [Mass/Vol]0.75 mg/dLNormal0.73-1.22[facility] on above:Order Comment: Specimen Type: BLOOD SPECIMEN [facility] Address: [address] [place], [place] [address]Performed By: #### 52446-8 #### [facility] CLIA [id number] [address] [place] [address] [place] AMERICACreatinine and Glomerular filtration rate.predicted panel (S/P/Bld)103 mL/min/1.73m???Normal>=60[facility] on above:Order Comment: Specimen Type: BLOOD SPECIMEN [facility] Address: [address] [place], [place] [address]Result Comment: Estimated Glomerular Filtration Rate (eGFR) is calculated using the 2020 CKD-EPI cre atinine equation. This equation utilizes serum creatinine, sex, and age as parameters. The creatinine assay has traceable calibration to isotope dilution- mass spectrometry. Refer to KDIGO guidelines for clinical interpretation. In patients with unstable renal function, e.g. those with acute kidney injury, the eGFR may not accurately reflect actual GFR.Performed By: #### 54047-3 #### [facility] CLIA [id number] [address] [place] [address] [place] AMERICAGlucose [Mass/Vol]182 mg/dL Lrak90-22TwiaivyebMercy Health West Hospital on above:Order Comment: Specimen Type: BLOOD SPECIMEN [facility] Facility: [facility] Address: [address] [place] [address] Comment: The [place] Diabetes Association (ADA) provides guidance for cutoff [...] Standards of Medical Care in Diabetes 2016, [place] [employer]. Diabetes Care. 2016.39(Suppl 1).Performed By: #### 15495-7 #### [facility] CLIA [id number] [address] [place] [address] [place] AMERICAPotassium [Moles/Vol]4.7 mmol/LNormal3.7-5.1CHenry County Hospital on above:Order Comment: Specimen Type: BLOOD SPECIMEN [facility] Facility[facility] Address: [address] [place], [place] [address]Performed By: #### 04332-3 #### [facility] CLIA [id number] [address] [place] [address] [place] AMERICASodium [Moles/Vol]140 mmol/L Xxusgo734-392LsnvkqehxMercy Health West Hospital on above:Order Comment: Specimen Type: BLOOD SPECIMEN [facility] Facility[facility] Address: [address] [place], [place] [address]Performed By: #### 87260-3 #### [facility] CLIA [id number] [address] [place] [address] [place] AMERICAUrea nitrogen [Mass/Vol]16 mg/dLNormal9-24[facility] on above:Order Comment: Specimen Type: BLOOD SPECIMEN [facility] Facility[facility] Address: [address] [place], [place] [address]Performed By: #### 79657-5 #### [facility] CLIA [id number] [address] [place] [address] [place] AMERICACBC panel Auto (Bld)on 05-39-8768Hxlohqccdor distribution width (RBC) [Ratio]17.2 %High11.5-15.0 [facility] on above:Order Comment: Specimen Type: BLOOD SPECIMEN [facility] Facility[facility] Address: [address] [place], [place] [address]Performed By: #### 70648-7 #### [facility] CLIA [id number] [address] [place] [address] [place] OF AMERICAHematocrit (Bld) [Volume fraction]50.7 %Hebxyo85.0-51.0[facility] on above:Order Comment: Specimen Type: BLOOD SPECIMEN Ordering Facility: [facility] Address: [address] [place], [place] [address]Performed By: #### 14276-1 #### [facility] CLIA [id number] [address] [place] [address] OF [facility]GE MEDICAL CENTERHemoglobin (Bld) [Mass/Vol] 16.6 g/aSOhtgvb04.0-17.0[facility] on above:Order Comment: Specimen Type: BLOOD SPECIMEN Ordering Facility: [facility] Address: [address] [place], [place] [address]Performed By: #### 62557-2 #### [facility] CLIA [id number] [address] [place], [place] [address]H (RBC) [Entitic mass]27.7 ihIsjqjv78.0-34.0[facility] on above:Order Comment: Specimen Type: BLOOD SPECIMEN Ordering Facility: [facility] Address: [address] [place], [place] [address]Performed By: #### 62327-3 #### [facility] CLIA [id number] [address] [place] [address] [place] OF [facility]GE MEDICAL CENTERMCHC (RBC) [Mass/Vol]32.7 g/fBQgazsg72.5-36.0[facility] on above:Order Comment: Specimen Type: BLOOD SPECIMEN Ordering Facility: [facility] Address: [address] [place], [place] [address]Performed By: #### 71119-5 #### [facility] CLIA [id number] [address] [place] [address] OF [facility]P HOSPITALV (RBC) [Entitic vol]84.6 rAQhlxir45.0-100.0[facility] on above:Order Comment: Specimen Type: BLOOD SPECIMEN Ordering Facility: [facility] Address: [address] [place], [place] [address]Performed By: #### 96577-1 #### [facility] CLIA [id number] [address] [place] [address] [place] AMERICANucleated RBC (Bld) [#/Vol] 10*3/uLNormal<0.01[facility] on above:Order Comment: Specimen Type: BLOOD SPECIMEN Ordering Facility: [facility] Address: [address] [place], [place] [address]Performed By: #### 05215-3 #### [facility] CLIA [id number] [address] [place] [address] [place] AMERICAPlatelet mean volume (Bld) [Entitic vol]9.5 fLNormal9.0-12.7CHenry County Hospital on above: Order Comment: Specimen Type: BLOOD SPECIMEN Ordering Facility: [facility] Address: [address] [place], [place] [address]Performed By: #### 81155-8 #### [facility] CLIA [id number] [address] [place] [address] [place] AMERICAPlatelets (Bld) [#/Vol]284 10*3/sQPwleqx489-501UyfcixyddMercy Health West Hospital on above:Order Comment: Specimen Type: BLOOD SPECIMEN Ordering Facility: [facility] Address: [address] [place], [place] [address]Performed By: #### 54932-5 #### [facility] CLIA [id number] [address] [place], [place] [address] [place] OF AMERICARBC (Bld) [#/Vol]5.99 10*6/uLNormal4.20-6.00[facility] on above:Order Comment: Specimen Type: BLOOD SPECIMEN Ordering Facility: [facility] Address: [address] [place], [place] [address]Performed By: #### 72097-1 #### [facility] CLIA [id number] [address] [place] [address] [place] AMERICAWBC (Bld) [#/Vol]10.10 10*3/uLNormal3.70-11.00[facility] on above:Order Comment: Specimen Type: BLOOD SPECIMEN Ordering Facility: [facility] Address: [address] [place], [place] [address]Performed By: #### 56115-3 #### [facility] CLIA [id number] [address] [place] [address] OF AMERICANURSING PROGon 07-28-2023 NURSING PRONO ID: [id number] Author: DAVID MCLAUGHLIN RN Service: ? Author Type: Registered Nurse Type: Nursing Progress Note Filed: 07/28/2023 14:53 Note Text: Admission/Transfer Note PATIENT NAME: Caden Wills Patient Location: [place] [address]/[facility]- Room: [place] [address] Patient admitted from PACU via bed in stable condition. Actions taken: Patient oriented to room, call light function, prescribed activities, Patient rights, and Quiet at night. Patient belongings with patient. This note was completed by: David MclaughlinCommunity Memorial HospitalAL PATHOLOGYon [id number] REPORTNormMercy Health [facility] on above:Order Comment: Specimen Type: BLOOD SPECIMEN [facility]ing Facility: [facility] Address: [address] [place], [place] [address]Result Comment: Surgical Pathology Report Case: [id number] Authorizing Provider: Jian Alberto MD Collected: 07/28/2023 10:42 AM Ordering Location: Admitting Received: 07/28/2023 12:18 PM Pathologist: Rajat Corbin MD Specimen: Soft Tissue (Not otherwise specified), penile skinPerformed By: #### 32452-3 #### [facility] CLIA [id number] [address] [place] [address] [place] AMERICACLINICAL HISTORYNormal [facility] on above:Order Comment: Specimen Type: BLOOD SPECIMEN Ordering Facility: [facility] Address: [address] [place], [place] [address]Result Comment: 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 An immunohistochemical stain for T. pallidum is negative. These findings support the above diagnosis. Laboratory Developed Test (LDT) Disclaimer: Performance characteristics of immunohistochemical, immunofluorescent and chromogenic in-situ hybridization tests have been determined by the performing laboratory within [facility]???s [facility] Pathology and Laboratory Medicine Department ([facility], [place], [facility], [facility], [facility], [facility], [facility], or [facility]) in a manner consistent with CLIA requirements. One or more of these tests havenot been cleared or approved by the FDA. RT[facility] is regulated under CLIA as qualified to perform high-complexity testing. These tests are used for clinical purposes. They should not be regarded as investigational or for research. Positive and negative controls stain appropriately.Performed By: #### 68848-2 #### [facility] CLIA [id number] [address] [place], [place] [address]FINAL DIAGNOSISNormal [facility] on above:Order Comment: Specimen Type: BLOOD SPECIMEN Ordering Facility: [facility] Address: [address] [place], [place] [address]Result Comment: Penile skin, excision: - Benign skin with acute and chronic inflammation and rare fungal organisms morphologically consistent with Sydnee species. Performed By: #### 21866-5 #### [facility] CLIA [id number] [address] [place] [address] PERFORMING LABNormal [facility] on above:Order Comment: Specimen Type: BLOOD SPECIMEN Ordering Facility: [facility] Address: [address] [place], [place] [address]Result Comment: Diagnostic interpretation performed at [facility], [address] [place], [place] [address] CLIA# [id number] Rescue Worker: Jose Power M.D.Performed By: #### 02020-6 #### [facility] CLIA [id number] [address] [place] [address] DESCRIPTIONNoSelect [facility] on above:Order Comment: Specimen Type: BLOOD SPECIMEN [facility]ing Facility: [facility] Address: [address] [place], [place] [address]Result Comment: A. Soft Tissue (Not otherwise specified) Received fresh labeled penile skin is a rectangular excision of pink skin measuring 4.5 x 2.5 x 0.3 cm. The skin surface is smooth and glistening without lesion. The resection margin is cauterized and roughened. The cut surfaces are soft and glistening. Automatic Spooler Operator sections are submitted in cassette A1. OLIVA July 28, 2023 12:39 PM Gross examination performed at [place] [address] CLIA# [id number] By: #### 99745-8 #### [facility] CLIA [id number] [address] [place], [place] [address]CB panel Auto (Bld)on 93-31-2887Jbctxxvfwpr distribution width (RBC) [Ratio]16.1 %High11.5-15.0 [facility] on above:Order Comment: Specimen Type: BLOOD SPECIMEN Ordering Facility: [facility] Address: [address] [place], [place] [address]Performed By: #### 70254-7 #### [facility] CLIA [id number] [address] [place] [address] [place] AMERICAHematocrit (Bld) [Volume fraction]51.6 %High39.0-51.0[facility] on above:Order Comment: Specimen Type: BLOOD SPECIMEN Ordering Facility: [facility] Address: [address] [place], [place] [address]Performed By: #### 10830-8 #### [facility] CLIA [id number] [address] [place] [address] STATES OF AMERICAHemoglobin (Bld) [Mass/Vol] 16.6 g/yLCmsqfs16.0-17.0[facility] on above:Order Comment: Specimen Type: BLOOD SPECIMEN Ordering Facility: [facility] Address: [address] [place], [place] [address]Performed By: #### 64790-0 #### [facility] CLIA [id number] [address] [place] [address] OF DI[facility] RIDGE MEDICAL CENTERMCH (RBC) [Entitic mass]27.6 hyVttwzb84.0-34.0[facility] on above:Order Comment: Specimen Type: BLOOD SPECIMEN Ordering Facility: [facility] Address: [address] [place], [place] [address]Performed By: #### 52173-5 #### [facility] CLIA [id number] [address] [place] [address] (RBC) [Mass/Vol]32.2 g/sNLvazig84.5-36.0[facility] on above:Order Comment: Specimen Type: BLOOD SPECIMEN Ordering Facility: [facility] Address: [address] [place], [place] [address]Performed By: #### 76606-7 #### [facility] CLIA [id number] [address] [place] [address] [place] AMERICAMCV (RBC) [Entitic vol]85.7 fIOgmfec63.0-100.0[facility] on above:Order Comment: Specimen Type: BLOOD SPECIMEN Ordering Facility: [facility] Address: [address] [place], [place] [address]Performed By: #### 83332-2 #### [facility] CLIA [id number] [address] [place] [address] [place] AMERICANucleated RBC (Bld) [#/Vol] 10*3/uLNormal<0.01[facility] on above:Order Comment: Specimen Type: BLOOD SPECIMEN Ordering Facility: [facility] Address: [address] [place], [place] [address]Performed By: #### 04891-1 #### [facility] IA [id number] [address] [place] [address] [place] AMERICAPlatelet mean volume (Bld) [Entitic vol]10.3 fLNormal9.0-12.7CHenry County Hospital on above: Order Comment: Specimen Type: BLOOD SPECIMEN [facility] Facility: [facility] Address: [address] [place], [place] [address]Performed By: #### 99084-8 #### [facility] CLIA [id number] [address] [place] [address] [place] AMERICAPlatelets (Bld) [#/Vol]264 10*3/dOPiqjfu067-687DhuzxpakjMercy Health West Hospital on above:Order Comment: Specimen Type: BLOOD SPECIMEN [facility] Facility: [facility] Address: [address] [place], [place] [address]Performed By: #### 17848-7 #### [facility] CLIA [id number] [address] [place] [address] [place] AMERICARBC (Bld) [#/Vol]6.02 10*6/uLHigh4.20-6.00[facility] on above:Order Comment: Specimen Type: BLOOD SPECIMEN [facility] Facility[facility] Address: [address] [place], [place] [address]Performed By: #### 48097-1 #### [facility] CLIA [id number] [address] [place] [address] [place] AMERICAWBC (Bld) [#/Vol]10.12 10*3/uLNormal3.70-11.00[facility] on above:Order Comment: Specimen Type: BLOOD SPECIMEN Ordering Facility: [facility] Address: [address] [place], [place] [address]Performed By: #### 86233-9 #### [facility] CLIA [id number] [address] [place] [address] [place] AMERICAComprehensive metabolic 2000 panelon 33-91-8294Qlmkbeo [Mass/Vol]4.3 g/dLNormal3.9-4.9CHenry [facility] Hospital on above:Order Comment: Specimen Type: BLOOD SPECIMEN Ordering Facility: [facility] Address: [address] [place], [place] [address]Performed By: #### 21514-6 #### [facility] CLIA [id number] [address] [place] [address] [place] AMERICAALP [Catalytic activity/Vol] 100 U/SUmyclo99-861WeuqzimqbMercy Health West Hospital on above:Order Comment: Specimen Type: BLOOD SPECIMEN Ordering Facility: [facility] Address: [address] [place], [place] [address]Performed By: #### 03038-6 #### [facility] CLIA [id number] [address] [place] [address] [place] AMERICAALT [Catalytic activity/Vol] 33 U/HGfdkre19-57DhdxefjbyMercy Health West Hospital on above:Order Comment: Specimen Type: BLOOD SPECIMEN Ordering Facility: [facility] Address: [address] [place], [place] [address]Performed By: #### 64789-0 #### [facility] CLIA [id number] [address] [place] [address] [place] AMERICAAnion gap [Moles/Vol]14 mmol/LNormal9-18[facility] on above:Order Comment: Specimen Type: BLOOD SPECIMEN Ordering Facility: [facility] Address: [address] [place], [place] [address]Performed By: #### 80280-5 #### [facility] CLIA [id number] [address] [place] [address] [place] AMERICAAST [Catalytic activity/Vol] 26 U/OVmtefk76-34WrlkfttxmMercy Health West Hospital on above:Order Comment: Specimen Type: BLOOD SPECIMEN Ordering Facility: [facility] Address: [address] [place], [place] [address]Performed By: #### 01280-4 #### [facility] CLIA [id number] [address] [place] [address] [place] AMERICABilirubin [Mass/Vol]0.2 mg/dLNormal0.2-1.3CHenry County Hospital on above:Order Comment: Specimen Type: BLOOD SPECIMEN Ordering Facility: [facility] Address: [address] [place], [place] [address]Performed By: #### 22787-7 #### [facility] CLIA [id number] [address] [place], [place] [address] [place] AMERICACalcium [Mass/Vol]10.5 mg/dL High8.5-10.2CHenry [facility] Hospital on above:Order Comment: Specimen Type: BLOOD SPECIMEN Ordering Facility: [facility] Address: [address] [place], [place] [address]Performed By: #### 59013-6 #### [facility] CLIA [id number] [address] [place] [address] [place] AMERICAChloride [Moles/Vol]101 mmol/SRmywlr04-392CzpsitrlrMercy Health West Hospital on above:Order Comment: Specimen Type: BLOOD SPECIMEN [facility]ing Facility: [facility] Address: [address] [place], [place] [address]Performed By: #### 88703-0 #### [facility] CLIA [id number] [address] [place] [address] [place] AMERICACO2 [Moles/Vol]25 mmol/L Kttfqg03-64VlwrdoqkrMercy Health West Hospital on above:Order Comment: Specimen Type: BLOOD SPECIMEN [facility]ing Facility: [facility] Address: [address] [place], [place] [address]Performed By: #### 34755-0 #### [facility] CLIA [id number] [address] [place] [address] [place] AMERICACreatinine [Mass/Vol]0.73 mg/dLNormal0.73-1.22[facility] on above:Order Comment: Specimen Type: BLOOD SPECIMEN Ordering Facility: [facility] Address: [address] [place], [place] [address]Performed By: #### 14520-0 #### [facility] IA [id number] [address] [place] [address] [place] AMERICACreatinine and Glomerular filtration rate.predicted panel (S/P/Bld)104 mL/min/1.73m???Normal>=60[facility] on above:Order Comment: Specimen Type: BLOOD SPECIMEN [facility] Facility[facility] Address: [address] [place], [place] [address]Result Comment: Estimated Glomerular Filtration Rate (eGFR) is calculated using the 2020 CKD-EPI cre atinine equation. This equation utilizes serum creatinine, sex, and age as parameters. The creatinine assay has traceable calibration to isotope dilution- mass spectrometry. Refer to KDIGO guidelines for clinical interpretation. In patients with unstable renal function, e.g. those with acute kidney injury, the eGFR may not accurately reflect actual GFR.Performed By: #### 53593-3 #### [facility] IA [id number] [address] [place] [address] [place] AMERICAGlucose [Mass/Vol]82 mg/dL Izmsdt31-80XxbhggximMercy Health West Hospital on above:Order Comment: Specimen Type: BLOOD SPECIMEN Ordering Facility: [facility] Address: [address] [place], [place] [address]Result Comment: The [place] Diabetes Association (ADA) provides guidance for cutoff [...] Standards of Medical Care in Diabetes 2016, [place] Diabetes Association. Diabetes Care. 2016.39(Suppl 1).Performed By: #### 12509-8 #### [facility] IA [id number] [address] [place] [address] [place] AMERICAPotassium [Moles/Vol]4.1 mmol/LNormal3.7-5.1CHenry County Hospital on above:Order Comment: Specimen Type: BLOOD SPECIMEN Ordering Facility[facility] Address: [address] [place], [place] [address]Performed By: #### 82419-9 #### [facility] IA [id number] [address] [place] [address] [place] AMERICAProtein [Mass/Vol]7.6 g/dL Normal6.3-8.0[facility] on above:Order Comment: Specimen Type: BLOOD SPECIMEN [facility] Address: [address] [place], [place] [address]Performed By: #### 29480-1 #### [facility] CLIA [id number] [address] [place] [address] [place] AMERICASodium [Moles/Vol]140 mmol/L Eecfnq360-856OyfzfhfqoMercy Health West Hospital on above:Order Comment: Specimen Type: BLOOD SPECIMEN [facility]ing Facility: [facility] Address: [address] [place], [place] [address]Performed By: #### 49326-0 #### [facility] CLIA [id number] [address] [place] [address] [place] AMERICAUrea nitrogen [Mass/Vol]17 mg/dLNormal9-24[facility] on above:Order Comment: Specimen Type: BLOOD SPECIMEN [facility] Facility[facility] Address: [address] [place], [place] [address]Performed By: #### 09462-9 #### [facility] CLIA [id number] [address] [place] [address] [place] AMERICAErythrocyte distribution width Auto (RBC) [Ratio]on 42-73-7180Fyegeqmkkdo distribution width (RBC) [Ratio]16.1 %High11.5-15.0[facility] HospitalGlucose mean value [Mass/volume] in Blood Estimated from glycated hemoglobinon 64-62-8398Yotdibg glucose Estimated from glycated hemoglobin (Bld) [Mass/Vol]157 mg/dLCleveland Clinic Medina HospitalComment on above:eAG: (Estimated average glucose) is a calculated value from HgbA1c and is front desk representative of the average blood glucose level in the last 2-3 month period.HISTORY PHYSICALon 07-42-8790JMDTCEP PHYSICAL HNO ID: [id number] Author: KEVIN GOLDSMITH APRN.CHROME TANNER Service: ? Author Type: Nurse Practitioner Type: [...] artery disease involving coronary bypass graft of yurok heart without angina pectoris CAD, hx of CT s/p CABG x 5 in Dec 2021. [...] cardiac events (< 1% chance of , CT, CHF, malignant ventricular arrhythmias or high grade [...] note 06/19/23 notes the following, Echo 03/30/22 ([facility]) - Global LV systolic function is difficult [...] have a large neck STOP-Bang Score: 5 KUO3WJ7-JUTk Score: Age: <65 Sex: male CHF history: Yes Hypertension history: Yes Stroke/TIA/thromboembolism history: No Vascular disease history: Yes Diabetes history: Yes EFZ3ZM9-TAMh Score: 4 ARISCAT Score: Age: 51-80 Preoperative [...] DOS review of labs. (more content not included)...NormalTuscarawas HospitalHbA1c (Bld)on 29-76-8130Tnknjsw glucose Estimated from glycated hemoglobin (Bld) [Mass/Vol]157 mg/dLAvita Health System Galion HospitalHbA1c (Bld) [Mass fraction]7.1 %High4.3 - 5.6 %[facility] glucose Estimated from glycated hemoglobin (Bld) [Mass/Vol]157 mg/dLNormalCHenry County Hospital on above:Order Comment: Specimen Type: BLOOD SPECIMEN Ordering Facility[facility] Address: [address] [place], [place] [address]Result Comment: eAG: (Estimated average glucose) is a calculated value from HgbA1c and is front desk representative of the average blood glucose level in the last 2-3 month period.Performed By: #### 27018-7 #### [facility] CLIA [id number] [address] [place] [address] STATES OF CUVHZWEBzY6u (Bld) [Mass fraction] 7.1 %High4.3-5.6CHenry County Hospital on above:Order Comment: Specimen Type: BLOOD SPECIMEN [facility] Address: [address] [place], [place] [address]Result Comment: [place] Diabetes Association guidelines indicate that patients with HgbA1c in the range 5.7-6.4% are at increased risk for development of diabetes, and intervention by lifestyle modification may be beneficial. HgbA1c greater or equal to 6.5% is considered diagnostic of diabetes.Performed By: #### 31196-2 #### [facility] CLIA [id number] [address] [place] [address] [place] AMERICAHematocrit Auto (Bld) [Volume fraction]on 36-05-9810Ordpsuaztl (Bld) [Volume fraction]51.6 %High 39.0-51.0[facility] HospitalHemoglobin [Mass/volume] in Bloodon 23-18-4371Hvvtnyqhol (Bld) [Mass/Vol]16.6 g/dL13.0-17.0[facility] HospitalLaboratory - Chemistry and Chemistry - challengeon 07-27-2023 Albumin [Mass/Vol]4.3 g/dL3.9-4.9[facility] HospitalALP [Catalytic activity/Vol]100 U/B18-256OurgzievuCleveland Clinic Medina HospitalALT [Catalytic activity/Vol]33 U/O49-22CkcfaquiqCleveland Clinic Medina HospitalAST [Catalytic activity/Vol]26 U/O19-33EmfoiqdfkCleveland Clinic Medina HospitalBilirubin [Mass/Vol]0.2 mg/dL0.2-1.3FKettering Health MiamisburgCalcium [Mass/Vol]10.5 mg/dLHigh 8.5-10.2FKettering Health MiamisburgChloride [Moles/Vol]101 mmol/L97-105 [facility] HospitalCO2 [Moles/Vol]25 mmol/K07-52OvvngnoaxCleveland Clinic Medina HospitalCreatinine [Mass/Vol]0.73 mg/dL0.73-1.22[facility] HospitalGlucose [Mass/Vol]82 mg/rK20-90QvsjsusjeCleveland Clinic Medina Hospital Comment on above:The [place] Diabetes Association (ADA) provides guidance for cutoff values for fasting glucose andrandom glucose. The ADA defines fasting as no caloric intake for at least 8 hours. Fasting plasma glucose results between 100 to 125 mg/dL indicate increased risk for diabetes (prediabetes).Fasting pl asma glucose results greater than or equal to 126 mg/dL meet the criteria for diagnosis of diabetes. In the absence of unequivocal hyperglycemia, results should be confirmed by repeat testing. In a patient with classic symptoms of hyperglycemia or hyperglycemic crisis, random plasma glucose resultsgreater than or equal to 200 mg/dL meet the criteria for diagnosis of diabetes.Reference: Standardsof Medical Care in Diabetes 2016, [place] Diabetes Association. Diabetes Care. 2016.39(Suppl 1).Potassium [Moles/Vol]4.1 mmol/L3.7-5.1FMercy Health Clermont Hospitalodium [Moles/Vol]140 mmol/J579-107PnkylkbjaCleveland Clinic Medina HospitalUrea nitrogen [Mass/Vol]17 mg/dL9-24[facility] HospitalLaboratory - Hematology and Cell countson 64-01-1418UwL2v (Bld) [Mass fraction]7.1 %High4.3-5.6FKettering Health MiamisburgComment on above: [place] Diabetes Association guidelines indicate that patients with HgbA1c in the range 5.7-6.4% are at increased risk for development of diabetes, and intervention by lifestyle modification may be beneficial. HgbA1c greater or equal to 6.5% is considered diagnostic of diabetes.Leukocytes [#/volume] corrected for nucleated erythrocytes in Blood by Automated counon 37-86-1134DPG corrected for nucl RBC Auto (Bld) [#/Vol]10.12 k/uL3.70-11.00[facility] Auto (RBC) [Entitic mass]on 57-34-9916NEN (RBC) [Entitic mass] 27.6 pg26.0-34.0[facility] Auto (RBC) [Mass/Vol]on 56-54-7136QPLH (RBC) [Mass/Vol]32.2 g/dL30.5-36.0[facility]HealthV Auto (RBC) [Entitic vol]on 59-12-9857NBN (RBC) [Entitic vol]85.7 fL 80.0-100.0[facility] HospitalNo Panel Informationon 07-27-2023 Estimated GFR (CKD-EPI)104 mL/min/1.73m???>=60[facility] Comment on above:Estimated Glomerular Filtration Rate (eGFR) is calculated using the 2020 CKD-EPI creatinine equation. This equation utilizes serum creatinine, sex, and age as parameters. The creatinine assay has traceable calibration to isotope dilution-mass spectrometry. Refer to KDIGO guidelines for clinical inte rpretation. In patients with unstable renal function, e.g. those with acute kidney injury, the eGFRmay not accurately reflect actual GFR.Nucleated RBC Auto (Bld) [#/Vol]on 81-04-6889Bqhnxcncy RBC (Bld) [#/Vol]10*3/uL<0.01[facility] HospitalPlatelet mean volume Auto (Bld) [Entitic vol]on 70-89-2764Awyuxnwf mean volume (Bld) [Entitic vol]10.3 fL9.0-12.7FKettering Health MiamisburgPlatelets Auto (Bld) [#/Vol]on 42-40-9244Mlsxzogzy (Bld) [#/Vol]264 10*3/jM488-238QdfywdxxvCleveland Clinic Medina HospitalProtein [Mass/volume] in Serum or Plasmaon 00-52-3561Prjvtvq [Mass/Vol]7.6 g/dL6.3-8.0[facility] HospitalRBC Auto (Bld) [#/Vol]on 47-91-3974MJX (Bld) [#/Vol]6.02 10*6/uLHigh4.20-6.00[facility] Hospitalerum or plasma anion gap determinationon 94-60-7081Hzufs gap [Moles/Vol]14 mmol/L9-18FKettering Health MiamisburgCNPNon 24-65-8329ANMVMmpcgnztk (RICKEY) CADEN WILLS ([id number]) 1960 M Date Time Provider Department 07/18/23 [...] 6:00 arrival time at [facility]. States that he will be going home after pre ops on 07/26 and coming back the following day. No other questions or concerns expressed. Noy Mary RN Allergies As of Date: 07/18/2023 (No Known Allergies) Date Reviewed: 06/19/2023 Reviewed by: Jessica Ordaz RN - Fully Assessed Reason for Visit: Hand Bulldozer - Other [3602] Prescriptions as of 07/18/2023 [...] Take 20 mEq by mouth. - omega 4-whp-ntx-fish oil (FISH OIL) 100-160-1,000 mg cap Take 1,000 mg by mouth. - bumetanide (BUMEX ORAL) Take by mouth. 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] 05/03/2023 Scarring of penis [N48.6] 05/03/2023 Erectile dysfunction associated with type 2 beverley*05/03/2023 Encounter Status:Closed by NOY MARY on 07/18/23[facility] HospitalHbA1c HPLC (Bld) [Mass fraction]on 58-89-9671JlF8i (Bld) [Mass fraction]7.4 %[facility] HospitalNo Panel Informationon 06-21-2023 Bedside Rkbldap661XsgkklalkCleveland Clinic Medina HospitalCNPNon 72-53-2300URWU Telephone (RICKEY) CADEN WILLS ([id number]) 1960 M Date Time Provider Department 06/20/23 NOY MARY During your visit today, we recorded the following information about you: Noy Mary SELIN 06/20/2023 12:26 PM Signed Called Caden Wills and LVM to confirm surgery date of 07/[address] Alberto. Discussed pre op testing on 07/26 in [place]. Cardiology clearance appointment on 06/18 with Ligia Colmenares MD Local cardiology clearance appointment on 06/18 with Simba Kasper MD ([facility] - ph [phone], fx [phone]) Will send urine culture via regular mail [...] RN - Fully Assessed Reason for Visit: Hand Bulldozer - Other [3602] Prescriptions as of 06/20/2023 [...] Take 20 mEq by mouth. - omega 9-ymu-ixr-fish oil (FISH OIL) 100-160-1,000 mg cap Take 1,000 mg by mouth. - bumetanide (BUMEX ORAL) Take by mouth. 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] 05/03/2023 Scarring of penis [N48.6] 05/03/2023 Erectile dysfunction associated with type 2 beverley*05/03/2023 Encounter Status:Closed by NOY MARY on 06/20/23[facility] 74-23-6598VFBFDizpzq TextBrecksville [facility] 55-89-8991CPKZVemsuj Visit (CARDWH) CADEN WILLS ([id number]) 1960 M Date Time Provider Department 06/19/23 1:00 PM LIGIA COLMENARES During your visit today, we recorded the following information about you: Pulse Blood pressure Weight 68/minute 112/68 124.3 kg Ligia Colmenares MD 06/19/2023 1:23 PM Signed [facility] [place] [facility] [place] Department of Cardiovascular Medicine SECTION [...] furniture (8.00 METs). 12/06/2022 Robyn Miller Cardiology- [facility] HPI Pleasant 62-year-old man with prior [...] 1 tablet by mouth every afternoon. omega 6-rek-tzk-fish oil (FISH OIL) 100-160-1,000 mg cap Take [...] 05/03/2023 67 Last 3 (more content not included)...NormalAvita Health System Galion Hospital ClevelandCholesterol in LDL Calc [Mass/Vol]on 94-14-3964Qmfehjkbnvi in LDL [Mass/Vol]66.0 mg/dLCleveland Clinic Medina HospitalComment on above:<100 mg/dl HOTTYEP380-676 mg/dl NEAR OR ABOVE IXWESBL084-130 mg/dl BORDERLINE JDBB142-007 mg/dl HIGH>190 mg/dl VERY HIGHCholesterol in VLDL Calc [Mass/Vol]on 06-19-2023 Cholesterol in VLDL [Mass/Vol]43.0 mg/dLCleveland Clinic Medina HospitalECG COMPLETEon 62-36-7659Oefvfw Rate68 BPMAvita Health System Galion HospitalCalculated P Axis53 degreesAvita Health System Galion HospitalCalculated R Axis20 degreesAvita Health System Galion HospitalCalculated T Axis86 degreesAvita Health System Galion HospitalP-R Wkijdgac730 msCleveland ClinicQRS Bvdekrmy97 msCleveland ClinicQT Rdlokzcd907 msCleveland ClinicQTC Calculation (Bazett)440 msCleveland ClinicVentricular Rate68 BPMAvita Health System Galion HospitalEC COMPLETEVentricular Rate : 68 BPM Atrial Rate : 68 BPM P-R Interval : 188 ms QRS Duration : 88 ms Q-T Interval : 414 ms QTC Calculation(Bazett) : 440 ms Calculated P [place] : 53 degrees Calculated R [place] : 20 degrees Calculated T [place] : 86 degrees NORMAL SINUS RHYTHM LOW VOLTAGE QRS NONSPECIFIC ST ABNORMALITY ABNORMAL ECG Confirmed by LIGIA COLMENARES M.D. ([id number]), film editor Lainey Agee ([id number]) on 06/19/2023 2:11:39 PM NAME : CADEN WILLS PID : [id number] : 1960 Gender : Male Race : Unknown ORD : [id number] Procedure Date : Jun 19 2023 13:03:26 Edit Date : Jun 19 2023 14:11:40 Diagnosis: NORMAL SINUS RHYTHM LOW VOLTAGE QRS NONSPECIFIC ST ABNORMALITY ABNORMAL ECG Confirmed by LIGIA COLMENARES M.D. ([id number]), film editor Lainey Agee ([id number]) on 06/19/2023 2:11:39 PM Test Reason : Location : 105 : CAR Overread By : LIGIA COLMENARES M.D. Edited By : Lainey Agee Referred By : LIGIA COLMENARES Acquired by : ArnaldoTuscarawas HospitalEstimated glomerular filtration rate (GFR) non- Americanon 54-84-7009GNI/1.73 sq M.predicted among non- blacks MDRD (S/P/Bld) [Vol rate/Area]mL/min/{1.73_m2}>=60[facility] HospitalLaboratory - Chemistry and Chemistry - challengeon 06-19-2023 Calcium [Mass/Vol]8.7 mg/dL8.5-10.1FKettering Health MiamisburgChloride [Moles/Vol]103 mmol/B41-615EwneuosteCleveland Clinic Medina HospitalCholesterol [Mass/Vol]141 mg/dL<=200[facility] HospitalCholesterol in HDL [Mass/Vol]32 mg/fP42-67SigrhsuxoCleveland Clinic Medina HospitalComment on above:> or =60 mg/dl - LOW CARDIOVASCULAR RISK<40 mg/dl - HIGH CARDIOVASCULAR RISKCO2 [Moles/Vol]29.5 mmol/L21.0-32.0[facility] HospitalCreatinine [Mass/Vol]0.86 mg/dL0.70-1.30[facility] HospitalGFR/1.73 sq M.predicted MDRD (S/P/Bld) [Vol rate/Area]mL/min/{1.73_m2}>=60[facility] HospitalGlucose [Mass/Vol]143 mg/xC31-192JhnmjrmgzC[facility] Clinic [facility] Hospital Potassium [Moles/Vol]4.2 mmol/L3.5-5.1FMercy Health Clermont Hospitalodium [Moles/Vol]141 mmol/H147-466FumimhsjjCleveland Clinic Medina HospitalTriglyceride [Mass/Vol]215 mg/dL<=150C[facility] HospitalUrea nitrogen [Mass/Vol]15.0 mg/dL7.0-18.0[facility] HospitalUrea nitrogen/Creatinine [Mass ratio]17.4 mg/mgGeorgetown Behavioral Hospitalerum or plasma anion gap determinationon 31-09-0742Dyoov gap [Moles/Vol]12.7 mmol/L [facility] Behavioral Hospitalerum or plasma total cholesterol/high density lipoprotein (HDL) cholesterol mass evelyn 29-31-9779Jotrhnjhkdi.total/Cholesterol in HDL [Mass ratio]4.4 {ratio}[facility] HospitalComment on above:3.3 - 4.4 LOW RISK4.4 - 7.1 AVERAGE RISK7.1 - 11.0 MODERATE RISK>11.0 HIGH RISKCNPNon 67-53-0779XQDGPzxpdrvpp (BEATAN) CADEN WILLS ([id number]) 1960 M Date Time Provider Department 06/14/23 NOY MARY During your visit today, we recorded the following information about you: Noy Mary RN 06/14/2023 9:45 AM Signed Called Caden Wills and KIM to confirm surgery date of 07/[address] Alberto. Discussed pre op testing on 07/26 in [place], or he could make two trips. Asked him to confirm Asked patient to confirm receipt, and voice any questions or concerns. Number provided. Noy Mary RN Allergies As of Date: 06/14/2023 (No Known Allergies) Date Reviewed: 05/03/2023 Reviewed by: Claudia Burt OCCA - Fully Assessed Reason for Visit: Hand Bulldozer - Other [3602] Prescriptions as of 06/14/2023 [...] tablet by mouth every afternoon. - omega 1-bcf-bns-fish oil (FISH OIL) 100-160-1,000 mg cap Take 1,000 mg by mouth. - bumetanide (BUMEX ORAL) Take by mouth. 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 - omega 1-oyh-mnu-fish oil (FISH OIL) 100-160-1,000 mg cap Take 1,000 mg by mouth. - bumetanide (BUMEX ORAL) Take by mouth. 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] 05/03/2023 Scarring of penis [N48.6] 05/03/2023 Erectile dysfunction associated with type 2 beverley*05/03/2023 Encounter Status:Closed by NOY MARY on 06/14/23NoFisher-Titus Medical CenterConsultation Noteon 52-13-9120Ydzhuchcbedf Note [id number]#1.00TIFParkview Health Montpelier HospitalCNOVon 02-79-3951YNZQCotztk Visit (UROLMN) CADEN WILLS ([id number]) 1960 M Date Time Provider Department 05/03/23 2:00 PM JIAN ALBERTO During your visit today, we recorded the following information about you: Pulse Blood pressure Weight Height 67/minute 137/78 123.4 kg 1.778 m Jian Alberto MD 05/03/2023 2:28 PM Signed [facility] NEW PATIENT HISTORY AND PHYSICAL EXAM PATIENT INFO: Caden Wills 63 year old REFERRING M.D.: Antonia Bush MD [address] [address] This consult was requested by Dr. Bush for an opinion regarding buried penis and erectile dysfunction, and my final recommendations will be communicated to the requesting health care provider by way of the shared medical record for internal providers or letter via the [employer] for external providers. 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 , interested in future sexual life. MEDICATIONS: [...] pending PVR noted ASSESSMENT/PLAN: (more content not included)...NormalCleveland ClinicvelandURINALYSIS, REFLEX MICROSCOPICon 20-32-1947Xhkpgsqfs Ql (U)NegativeNegativeAvita Health System Galion HospitalClarity (Unsp spec)ClearClearCleveland ClinicColor (U)Light YellowYellowAvita Health System Galion HospitalGlucose Test strip (U) [Mass/Vol]4+AbnormalTrace, NegativeAvita Health System Galion Hospital Hemoglobin Ql (U)NegativeNegative, TraceAvita Health System Galion HospitalKetones Ql (U)Negative Negative, TraceAvita Health System Galion HospitalLeukocyte esterase Test strip Ql (U)25 Quintin/uL Negative, 25 Quintin/uLAvita Health System Galion HospitalNitrite Ql (U)NegativeNegativeS[place] ClinicpH (U)5.5 [pH]5.0 - 8.0Av[facility] HospitalProtein (U) [Mass/Vol]Negative Trace, NegativeHarrison Community Hospitalpecific gravity (U) [Rel density]1.332Dxda9.005 - 1.030Av[facility] System Gal[facility] HospitalUrobilinogen Ql (U)NegativeNegativeAvita Health System Galion Hospital Bilirubin Ql (U)NegativeNormalNegativeMercy Health West Hospital on above:Order Comment: Specimen Type: BLOOD SPECIMEN Ordering Facility: [facility] Address: [address] [place], [place] [address]Performed By: #### 92522-6 #### [facility] CLIA [id number] [address] [id number] [place] OF AMERICAClarity (Unsp spec)Clear NormalClearCHenry County Hospital on above:Order Comment: Specimen Type: BLOOD SPECIMEN Ordering Facility: [facility] Address: [address] [place], [place] [address]Performed By: #### 42537-5 #### [facility] CLIA [id number] [address] [place] [address] [place] AMERICAColor (U)Light YellowNormal YellowMercy Health West Hospital on above:Order Comment: Specimen Type: BLOOD SPECIMEN Ordering Facility: [facility] Address: [address] [place], [place] [address]Performed By: #### 18360-5 #### [facility] CLIA [id number] [address] [place] [address] [place] AMERICAGlucose Test strip (U) [Mass/Vol]4+AbnormalTrace, NegativeMercy Health West Hospital on above: Order Comment: Specimen Type: BLOOD SPECIMEN Ordering Facility: [facility] Address: [address] [place], [place] [address]Performed By: #### 84536-1 #### [facility] CLIA [id number] [address] [place], [place] [id number] [place] OF AMERICAHemoglobin Ql (U)Negative NormalNegative, TraceMercy Health West Hospital on above:Order Comment: Specimen Type: BLOOD SPECIMEN Ordering Facility: [facility] Address: [address] [place], [place] [address]Performed By: #### 65949-2 #### [facility] CLIA [id number] [address] [place] [address] [place] AMERICAKetones Ql (U)NegativeNormal Negative, TraceMercy Health West Hospital on above:Order Comment: Specimen Type: BLOOD SPECIMEN Ordering Facility: [facility] Address: [address] [place], [place] [address]Performed By: #### 79910-5 #### [facility] CLIA [id number] [address] [place] [address] [place] AMERICALeukocyte esterase Test strip Ql (U)25 Quintin/uLNormalNegative, 25 Quintin/uLMercy Health West Hospital on above:Order Comment: Specimen Type: BLOOD SPECIMEN Ordering Facility: [facility] Address: [address] [place], [place] [address]Performed By: #### 18536-7 #### [facility] CLIA [id number] [address] [place] [address] [place] AMERICANitrite Ql (U)NegativeNormal NegativeMercy Health West Hospital on above:Order Comment: Specimen Type: BLOOD SPECIMEN Ordering Facility: [facility] Address: [address] [place], [place] [address]Performed By: #### 26212-5 #### [facility] CLIA [id number] [address] [place] [address] [place] AMERICApH (U)5.5 [pH]Normal5.0-8.0 [facility] on above:Order Comment: Specimen Type: BLOOD SPECIMEN Ordering Facility: [facility] Address: [address] [place], [place] [address]Performed By: #### 01859-2 #### [facility] CLIA [id number] [address] [place] [address] [place] AMERICAProtein (U) [Mass/Vol] NegativeNormalTrace, NegativeMercy Health West Hospital on above:Order Comment: Specimen Type: BLOOD SPECIMEN Ordering Facility: [facility] Address: [address] [place], [place] [address]Performed By: #### 21871-6 #### [facility] CLIA [id number] [address] [place] [address] [place] AMERICASpecific gravity (U) [Rel density]1.522Pkkh7.005-1.030[facility] on above:Order Comment: Specimen Type: BLOOD SPECIMEN Ordering Facility: [facility] Address: [address] [place], [place] [address]Performed By: #### 61113-1 #### [facility] CLIA [id number] [address] [place] [address] [place] [facility] MEDICAL CENTERUrobilinogen Ql (U)Negative NormalNegativeMercy Health West Hospital on above:Order Comment: Specimen Type: BLOOD SPECIMEN Ordering Facility: [facility] Address: [address] [place], [place] [address]Performed By: #### 10152-0 #### [facility] CLIA [id number] [address] [place] [address] [place] AMERICAPhysician Referralon 22-83-2667Prkydyfut [id number]#1.00TIFF [facility] HospitalPhysician Referralon 17-14-9411Befhqxbia [id number]#1.00TIFFNormalMercy Health Tiffin HospitalPhysician Referralon 77-86-9794Bjykvwatc Referral [id number]#1.00TIFFNormUniversity Hospitals Cleveland Medical Centercreenson 83-07-8275Yglbcuk [id number]#1.00TIFParkview Health Montpelier HospitalAmbulatory Visit Summaryon 34-66-2303Afbsjwempn Visit Summary CADEN WILLS:1960 Visit Date:03/22/2023 Ambulatory Visit Instructions Your Diagnosis ED (erectile dysfunction) Phimosis Hidden penis Balanoposthitis Anticoagulated Tests Performed Urnls Dip Stick Auto w/o Microscopy POC 12141 Your Care Team Attending Physician - Antonia [...] Schedule the Following Appointments Follow Up with ELEAZAR BARR, Antonia Sharma, ALICIA When: Where: [address] [place] [address]- Someone Will Contact You Regarding These Appointments [facility] External Ambulatory Referral, Urology, Dr. Alberto, 03/22/23 11:49:00 EST, PhiwasisNormSelect Medical Specialty Hospital - CincinnatiPatient Educationon 03-22-2023 Patient EducationUrology Erectile Dysfunction Erectile dysfunction (ED) is the inability to get or keep an erection in order to have sexual intercourse. ED is considered a symptom of an underlying disorder and is not considered a disease. ED mayinclude: ? Inability to get an erection. ? [...] The tube is inserted into the opening atthe tip of the penis, which is the opening of the urethra. A tiny pellet of medicine is put in the urethra. The pellet dissolves and enhances erectile function. This is also called MUSE (medicated urethral system for erections) therapy. ? Vacuum pump. This is a pump with a ring on it. The pump and ring are placed on the penis and usedto create pressure that helps the penis become [...] these instructions at home: Medicines ? Take ubwj-vga-whqldge and prescription medicines only as told by [...] to prevent headaches while taking ED medicines. Thesemedicines may cause a sudden headache due to the increase in blood flow in your body. General instructions ? Exercise regularly, as directed by your health care provider. Work with your health care providerto lose weight, if needed. ? Do not use any products that contain nicotine or tobacco. These products include cig (more content not included)...[facility] Office/Clinic Noteon 69-65-4753Dnvlbtw Office/Clinic NoteHPI Staff 63 yo male referred by Yamilex Foster CNP for ED. Never seen in our office before pt. states he had a heart attack in 2021 had spent 15 days in the hospital had bypass x5 camehome with a uti and states after that he has been having issues with ED. Patient is unsure if he iscircumcised states the skin on his penis is [...] addressed prior to treating ED. Pt to researchpenile ring. Recommended weight loss. 2. Phimosis (N47.1: [...] became exacerbated after that. Physical examination reveals ahidden penis with associated phimosis and irritated inner prepuce. Unable to retract. This will be a difficult circumcision. Is my recommendation that he be seen by Dr. Jian Alberto at the [facility] for his opinion. He can utilize jzyz-ldc-dcualee Monistat cream/triple antibiotic on a as needed [...] with voice recognition artificial intelligence software, specifically [employer], Nutritics and o (more content not included)...[facility] HospitalComment on above: Result Comment: Electronically Signed By: Antonia BUSH MD\.br\Date and Time Signed: 03/22/23 12:07 EST\.br\Electronically Co-Signed By: Maria M Campos\.br\Date and Time Co-Signed: 03/22/23 11:53 ESTA1C HEMOGLOBINon 03-08-2023 HbA1c (Bld) [Mass fraction]7.2 %[employer] Other Glucose - FINGER STICKon 75-45-6582Keptjah [Mass/Vol] 187 mg/dLNoGoodGuide Other HbA1c (Bld) [Mass fraction]on 02-54-2376L3T HEMOGLOBIN [employer] Other a1c HEMOGLOBINon 16-02-4899AkI0h (Bld) [Mass fraction] 6.6 %[employer] Other Glucose - FINGER STICKon 82-37-6264Kpuksus [Mass/Vol] 102 mg/dLNoGoodGuide Other HbA1c (Bld) [Mass fraction]on 08-17-6639Y2T HEMOGLOBIN [employer] Other a1c HEMOGLOBINon 58-68-5952VhP8w (Bld) [Mass fraction] 6.5 %[employer] Other Glucose - FINGER STICKon 58-58-3106Mlwgpzj [Mass/Vol] 159 mg/dLNoGoodGuide Other HbA1c (Bld) [Mass fraction]on 68-73-8067G7Y HEMOGLOBIN [employer] Other A1C HEMOGLOBINon 36-26-4732GxS4u (Bld) [Mass fraction] 6.9 %[employer] Other Glucose - FINGER STICKon 69-33-3932Xmckepz [Mass/Vol] 206 mg/dLNoGoodGuide Other HbA1c (Bld) [Mass fraction]on 75-82-6999W0L HEMOGLOBIN [facility] Ininal Other UA RANDOMon 65-87-5561Bgwsjkenr Ql (U)NegativeNormal NEGATIVEDayton Va Medical Center HospitalComment on above:Performed By: #### UA #### [facility] [address] [address] [address] Jose Ghosh (U)CLOUDYAbnormalCLEARThe Andrews Air Force Base HospitalComment on above:Performed By: #### UA #### [facility] [address] [address] [address] Jose Kong (U)LT. YELLOWNormalYELLOWKettering Memorial HospitalComment on above:Performed By: #### UA #### [facility] [address] [place] [address] Dr. Jose RojasGlucose Ql (U)>1000AbnormalNEGATIVEKettering Memorial HospitalComment on above:Performed By: #### UA #### [facility] [address] [address] [address] Jose RojasHemoglobin Ql (U)MODERATEAbnormalNEGATIVEWhite Hospital on above:Performed By: #### UA #### [facility] [address] [address] [address] Jose RojasKetones Ql (U)NegativeNormalNEGATIVEKettering Memorial HospitalComment on above:Performed By: #### UA #### [facility] [address] [address] [address] Jose RojasLEUKOCYTESMODERATEAbnormalNEGATIVEKettering Memorial HospitalComment on above:Performed By: #### UA #### [facility] [address] [address] [address] Jose RojasNitrite Ql (U)NegativeNormalNEGATIVEKettering Memorial HospitalComment on above:Performed By: #### UA #### [facility] [address] [address] [address] Jose RojaspH (U)5.5 [pH]Normal5-9[facility] HospitalComment on above: Performed By: #### UA #### [facility] [address] [place] [address] Dr. Jose RojsaSPEC GRAVITY<=1.267Aornhmyh3.005-<=1.025[facility] Comment on above:Performed By: #### UA #### [facility] [address] [place] [address] Dr. Jose Noel PROTEINNegativeNormalNEGATIVE/ TRACEThe [facility] Comment on above:Performed By: #### UA #### [facility] [address] [place] [address] Dr. Jose Rodríguezbilinogen Qn (U)0.2 {Ritu'U}/dLNormal0.2 - 1.0[facility] HospitalComment on above:Performed By: #### UA #### [facility] [address] [place] [address] Dr. Garcia ChangECHOCARDIO M/2D COMPLETEon 63-29-3524UVPNZJTIEE M/2D COMPLETE Patient: CADEN WILLS Exam Date: 03/30/2022 : 1960 Gender:M Ordering : DR SIMBA KASPER M.D. Admission #: [id number] Family : DR FAHAD ACEVES D.O. Order #: [id number] CLICK HERE TO VIEW EXAM ECHOCARDIOGRAM REPORT [...] by: Tomás Muniz M.D. on 03/31/2022 at 14:44[facility] HospitalBNPon 46-12-5060Fyasgquqpha peptide B (Bld) [Mass/Vol]335.0 pg/mLNormal <=900.0The [facility] HospitalComment on above:Performed By: #### BNP #### [facility] [address] [place] [address] Dr. Jose Toscano AUTO DIFFon [id number] #0.1 103/ulNormal0.0-0.1The [facility] HospitalComment on above:Performed By: #### DATCBC #### [facility] [address] [place] [address] Dr. Jose Salassophils/100 WBC (Bld)0.7 %Normal0.2-2.0[facility] Comment on above:Performed By: #### DATCBC #### [facility] [address] [place] [address] Dr. Jose Adan #0.4 103/ulNormal0.0-0.7The [facility] HospitalComment on above: Performed By: #### DATCBC #### [facility] [address] [place] [address] Dr. Jose Padillaosinophils/100 WBC (Bld)3.9 %Normal0.9-7.0[facility] Comment on above:Performed By: #### DATCBC #### [facility] [address] [place] [address] Dr. Jose Padillarythrocyte distribution width (RBC) [Ratio]16.5 %Critically high 11.0-15.0The [facility] HospitalComment on above:Performed By: #### DATCBC #### [facility] [address] [place] [address] Dr. Jose RojasHematocrit (Bld) [Volume fraction]44.9 %Rvftos79.0-54.0The [facility] HospitalComment on above:Performed By: #### DATCBC #### [facility] [address] [address] [address] Jose RojasHemoglobin (Bld) [Mass/Vol]14.3 g/yCXvltum72.0-18.0The [facility] HospitalComment on above:Performed By: #### DATCBC #### [facility] [address] [address] [address] Jose Laura #0.33 10e3/ulCritically high0.00-0.03The [facility] Comment on above:Performed By: #### DATCBC #### [facility] [address] [place] [address] Dr. Jose Laura %3.5 %Critically high0.0-0.5The [facility] HospitalComment on above:Performed By: #### DATCBC #### [facility] [address] [address] [address] Jose CastanedaH #1.9 103/ulNormal1.2-3.8The [facility] HospitalComment on above:Performed By: #### DATCBC #### [facility] [address] [address] [address] Jose Rodriguezmphocytes/100 WBC (Bld)19.8 %Critically low20.5-60.0The [facility] HospitalComment on above:Performed By: #### DATCBC #### [facility] [address] [address] [address] Jose EvansH (RBC) [Entitic mass]27.1 puOzuqcm15.9-34.0The [facility] HospitalComment on above:Performed By: #### DATCBC #### [facility] [address] [place] [address] Dr. Jose Evans (RBC) [Mass/Vol]31.8 g/xNXnvzpq68.9-35.2The [facility] HospitalComment on above:Performed By: #### DATCBC #### [facility] [address] [place] [address] Dr. Jose Graves (RBC) [Entitic vol]85.0 nJLkclmw75.0-94.0The [facility] HospitalComment on above:Performed By: #### DATCBC #### [facility] [address] [place] [address] Dr. Jose Hardin #0.9 103/ulCritically high0.3-0.8The [facility] Comment on above:Performed By: #### DATCBC #### [facility] [address] [place] [address] Dr. Jose Templetonocytes/100 WBC (Bld)9.1 %Normal1.7-12.0[facility] Comment on above:Performed By: #### DATCBC #### [facility] [address] [place] [address] Dr. Jose Galvan #6.0 103/ulNormal1.4-6.5The [facility] HospitalComment on above:Performed By: #### DATCBC #### [facility] [address] [place] [address] Dr. Jose Edwardutrophils/100 WBC (Bld)63.0 %Hptggq56.0-75.0The [facility] HospitalComment on above:Performed By: #### DATCBC #### [facility] [address] [place] [address] Dr. Jose Davidlet mean volume (Bld) [Entitic vol]9.2 fLCritically low 9.5-13.5The [facility] HospitalComment on above:Performed By: #### DATCBC #### [facility] [address] [place] [address] Dr. Jose LowT485 103/ulCritically dzew723-825Kko [facility] HospitalComment on above:Performed By: #### DATCBC #### [facility] [address] [place] [address] Dr. Jose RojasRBC5.28 106/ulNormal4.70-6.10The [facility] HospitalComment on above:Performed By: #### DATCBC #### [facility] [address] [address] [address] Jose RojasWBC9.6 103/ulNormal4.0-11.0The [facility] HospitalComment on above: Performed By: #### DATCBC #### [facility] [address] [address] [address] Jose Bowser- BMP WITH LIPIDon 73-77-5054Cbkfc gap [Moles/Vol]14.3 mmol/L NormalThe [facility] HospitalComment on above:Performed By: #### DATBMP #### [facility] [address] [place] [address] Dr. Jose RojasCalcium [Mass/Vol]9.9 mg/dLNormal8.5-10.1The [facility] Comment on above:Performed By: #### DATBMP #### [facility] [address] [address] [address] Jose RojasChloride [Moles/Vol]101 mmol/ETwkkbi84-735Wjx [facility] Comment on above:Performed By: #### DATBMP #### [facility] [address] [place] [address] Dr. Jose RojasCholesterol [Mass/Vol]110 mg/dLNormal<=200The [facility] Comment on above:Performed By: #### DATBMP #### [facility] [address] [place] [address] Dr. Jose RojasCholesterol in HDL [Mass/Vol]28 mg/dLCritically jwe03-62Umo [facility] HospitalComment on above:Performed By: #### DATBMP #### [facility] [address] [place] [address] Dr. Jose RojasCholesterol in LDL [Mass/Vol]21.2 mg/dLNormalThe [facility] HospitalComment on above:Performed By: #### DATBMP #### [facility] [address] [address] [address] Jose RojasCO2 [Moles/Vol]28.2 mmol/HLujxmw60.0-32.0The [facility] Comment on above:Performed By: #### DATBMP #### [facility] [address] [address] [address] Jose RojasCreatinine [Mass/Vol]1.14 mg/dLNormal0.70-1.30The [facility] HospitalComment on above:Performed By: #### DATBMP #### [facility] [address] [place] [address] Dr. Garcia ChangEGFR-AF SINGAPOREAN>60Normal>=60The [facility] HospitalComment on above:Performed By: #### DATBMP #### [facility] [address] [place] [address] Dr. Jose PadillaGFR-NON AF SINGAPOREAN>60Normal>=60The [facility] HospitalComment on above:Performed By: #### DATBMP #### [facility] [address] [place] [address] Dr. Jose RojasGlucose [Mass/Vol]254 mg/dLCritically vqhw25-660Tzm [facility] Centerment on above:Performed By: #### DATBMP #### [facility] [address] [place] [address] Dr. Jose RojasHDNikky NORMAL> or = 60 mg/dl - LOW CARDIOVASCULAR RISK <40 mg/dl - HIGH CARDIOVASCULAR RISKLima City HospitalComment on above:Performed By: #### DATBMP #### [facility] [address] [place] [address] Dr. Jose RojasLDL CALC NORMALSEE [facility] HospitalCommclaren central [place] on above:Result Comment: <100 mg/dl OPTIMAL 100 - 129 mg/dl NEAR OR ABOVE OPTIMAL 130 - 159 mg/dl BORDERLINE HIGH 160 - 189 mg/dl HIGH >190 mg/dl VERY HIGH Performed By: #### DATBMP #### [facility] [address] [place] [address] Dr. Jose RojasPotassium [Moles/Vol]4.5 mmol/LNormal3.5-5.1The [facility] Comment on above:Performed By: #### DATBMP #### [facility] [address] [address] [address] Jose RojasSodium [Moles/Vol]139 mmol/LGszkfx547-972Rrn [facility] Comment on above:Performed By: #### DATBMP #### [facility] [address] [address] [address] Jose RjoasTriglyceride [Mass/Vol]304 mg/dLCritically high<=150The [facility] HospitalComment on above:Performed By: #### DATBMP #### [facility] [address] [address] [address] Jose RojasUrea nitrogen [Mass/Vol]21.0 mg/dLCritically high7.0-18.0The [facility] HospitalComment on above:Performed By: #### DATBMP #### [facility] [address] [address] [address] Jose RojasUrea nitrogen/Creatinine [Mass ratio]18.4 mg/mgNoAccess Hospital DaytonComment on above:Performed By: #### DATBMP #### [facility] [address] [address] [address] Jose RojasVLDL CALC60.8 mg/dLNoAccess Hospital DaytonComment on above: Performed By: #### DATBMP #### [facility] [address] [address] [address] Jose RojasAlbumin [Mass/volume] in Serum or PlasmaOrdered By: Yamilex Foster on 38-56-0342Ahmbykc [Mass/Vol]3.5 g/dL3.2-5.5FKettering Health [facility]amis[facility] Cholesterol [Mass/volume] in Serum or PlasmaOrdered By: Yamilex Foster on 86-70-8862Kiwnyhqufyq [Mass/Vol]96 mg/zC764-716VcwlctoctC[facility] Clinic [facility] Hospital Comment on above:Chol less than 200 mg/dl low riskChol 201-239 mg/dl borderline riskChol 240 mg/dl and greater high riskCholesterol in LDL Calc [Mass/Vol] Ordered By: Yamilex Foster on 37-59-0215Kdtqghymevn in LDL [Mass/Vol]34 mg/dL0-100 [facility] HospitalComment on above:LDL ATP III CLASSIFICATIONLDL less than 100 mg/dL OptimalLDL 100-129 mg/dL Near or above pneoxyaQZD540-314 mg/dL Borderline highLDL 160-189 mg/dL HighLDL greater than 189 mg/dL Very high Cholesterol in VLDL Calc [Mass/Vol]Ordered By: Yamilex Foster on 02-11-2022 Cholesterol in VLDL [Mass/Vol]28 mg/dLCleveland Clinic Medina Hospital Creatinine [Mass/volume] in UrineOrdered By: Yamilex Foster on 02-11-2022 Creatinine (U) [Mass/Vol]49.7 mg/dLCleveland Clinic Medina HospitalComment on above:No reference range establishedCreatinine and Glomerular filtration rate.predicted panel (S/P/Bld)Ordered By: Yamilex Foster on 07-01-7188Kdqjhosxnt [Mass/Vol]0.85 mg/dL0.64-1.27[facility] HospitalEstimated glomerular filtration rate (GFR) non- AmericanOrdered By: Yamilex Foster on 02-44-1994EBO/1.73 sq M.predicted among non-blacks MDRD (S/P/Bld) [Vol rate/Area]> 60 mL/MinCleveland Clinic Medina HospitalGlobulin Calc (S) [Mass/Vol]Ordered By: Yamilex Foster on 72-94-2457Uhfbeztq (S) [Mass/Vol]3.2 g/dL [facility] HospitalLaboratory - Chemistry and Chemistry - challengeOrdered By: Yamilex Foster on 43-93-5089Jcquxfocb (Vitamin B12) [Mass/Vol]227 pg/oO311-225RvekkjtfhCleveland Clinic Medina HospitalNo Panel Information Ordered By: Yamilex Foster on 67-41-3365Xiyzmxdbs GFR ()> 60 mL/MinCleveland Clinic Medina HospitalComment on above:GFR estimated reference range: According to KDOQI guidelines, <60 ml/min/1.73m2 is sufficient todiagnose a patient with chronic kidney disease.Pharmacy Creatinine Clearance (ChemN/A [facility] HospitalProtein [Mass/volume] in Serum or PlasmaOrdered By: Yamilex Foster on 31-32-3190Mchwvnh [Mass/Vol]6.7 g/dL6.1-7.9[facility] Hospitalerum or plasma alanine aminotransferase measurement without P-5'-P (enzymatic activiOrdered By: Yamilex Foster on 57-71-0852OTA No additional P-5'-P [Catalytic activity/Vol]23 U/D09-50BpfhlbgysGeorgetown Behavioral Hospitalerum or plasma albumin/globulin mass ratioOrdered By: Yamilex Foster on 38-27-9672Lbychvn/Globulin [Mass ratio]1.1 {ratio}[facility] Hospitalerum or plasma alkaline phosphatase measurement (enzymatic activity/volume)Ordered By: Yamilex Foster on 56-37-1549HLM [Catalytic activity/Vol]82 U/K48-75ZieqmmhaeGeorgetown Behavioral Hospitalerum or plasma anion gap determinationOrdered By: Yamilex Foster on 67-22-5567Qmlnd gap [Moles/Vol]15.4 mmol/L6.0-15.0[facility] Hospitalerum or plasma aspartate aminotransferase measurement (enzymatic activity/volume)Ordered By: Yamilex Foster on 36-03-3047ZRG [Catalytic activity/Vol]22 U/V87-78BreymjtkoGeorgetown Behavioral Hospitalerum or plasma calcium measurement (mass/volume)Ordered By: Yamilex Foster on 18-25-5645Qhzilcl [Mass/Vol]9.7 mg/dL8.2-10.2FMercy Health Clermont Hospitalerum or plasma chloride measurement (moles/volume)Ordered By: Yamilex Foster on 72-31-8944Hzcetpfj [Moles/Vol]101 mmol/N67-156MytchanoeGeorgetown Behavioral Hospitalerum or plasma glucose measurement (mass/volume)Ordered By: Yamilex Foster on 37-27-7108Pjozuez [Mass/Vol]85 mg/dN45-307ZivovxtavCleveland Clinic Medina HospitalComment on above:ADA recommended reference rangeRandom Glucose Reference Range is dependent on time and content of last meal. Glucose of more than 200 mg/dL in a nonstressed, ambulatory subject supports the diagnosisof Diabetes Mellitus.Serum or plasma high density lipoprotein (HDL) cholesterol measurementOrdered By: Yamilex Foster on 93-91-8772Wbcniceewiz in HDL [Mass/Vol]34 mg/xB87-74MktkmlekoCleveland Clinic Medina HospitalComment on above:HDL CHOL ATP-III CLASSIFICATION Cardiovascular RiskHDL > or equal to 60 mg/dL LOWHDL < 40 mg/dL HIGHSerum or plasma potassium measurement (moles/volume)Ordered By: Yamilex Foster on 94-98-3466Lbleqfcgy [Moles/Vol]4.2 mmol/L3.5-5.1FMercy Health Clermont Hospitalerum or plasma sodium measurement (moles/volume)Ordered By: Yamilex Foster on 68-54-3412Twkzuq [Moles/Vol]138 mmol/O716-295FgcxmjoxrGeorgetown Behavioral Hospitalerum or plasma total bilirubin measurement (mass/volume)Ordered By: Yamilex Foster on 75-70-6161Yluugrrzv [Mass/Vol]0.7 mg/dL0.3-1.2FMercy Health Clermont Hospitalerum or plasma total carbon dioxide measurement (moles/volume) Ordered By: Yamilex Foster on 32-59-4323NE2 [Moles/Vol]25.8 mmol/L22.0-30.0 [facility] Hospitalerum or plasma total cholesterol/high density lipoprotein (HDL) cholesterol mass ratOrdered By: Yamilex Foster on 02-11-2022 Cholesterol.total/Cholesterol in HDL [Mass ratio]2.8 {ratio}<5.0[facility] Hospitalerum or plasma urea nitrogen measurement (mass/volume) Ordered By: Yamilex Foster on 30-54-4399Zfti nitrogen [Mass/Vol]16 mg/dL9-23 [facility] HospitalTriglyceride [Mass/volume] in Serum or Plasma Ordered By: Yamilex Foster on 85-27-7897Enzjemotwdng [Mass/Vol]140 mg/hM77-941 [facility] HospitalComment on above:TRIG ATP III CLASSIFICATIONTRIG less than 150 mg/dL NormalTRIG 150-199 mg/dL Borderline highTRIG 200-500 mg/dL High TRIG greater than 500 mg/dL Very highStandard traceable to the Center for Disease Conrtrol and Prevention (CDC) test method. Urine microalbumin measurement with detection limit of 20 mg/L or less (mass/volume)Ordered By: Yamilex Culverus on 76-78-4088Lysqyqh DL <= 20 mg/L (U) [Mass/Vol]3.4 mg/dL0.0-1.8[facility] HospitalUrine microalbumin/creatinine mass ratioOrdered By: Tondra Mapus on 02-11-2022 Albumin/Creatinine DL <= 20 mg/L (U) [Mass ratio]68.0 mg/g0.0-30.0[facility] HospitalComment on above:30-300 mg/g indicates an increased risk for diabetic nephropathy. Greater than 300 mg/g is consistent with clinical nephropathy. (Am. J. Kidney Disease 1995, 25:107)BNPon 78-93-0354Sikrkdmhica peptide B (Bld) [Mass/Vol]229.0 pg/mLNormal<=900.0The [facility] HospitalComment on above:Performed By: #### BNP #### [facility] [address] [place] [address] Dr. Jose Toscano AUTO DIFFon 94-41-8048EWBR #0.1 103/ulNormal0.0-0.1The [facility] HospitalComment on above:Performed By: #### DATCBC #### [facility] [address] [place] [address] Dr. Jose RojasBasophils/100 WBC (Bld)0.5 %Normal0.2-2.0The [facility] Comment on above:Performed By: #### DATCBC #### [facility] [address] [place] [address] Dr. Jose Adan #0.1 103/ulNormal0.0-0.7The [facility] HospitalComment on above: Performed By: #### DATCBC #### [facility] [address] [place] [address] Dr. Jose Padillaosinophils/100 WBC (Bld)1.0 %Normal0.9-7.0The [facility] Comment on above:Performed By: #### DATCBC #### [facility] [address] [place] [address] Dr. Jose Padillarythrocyte distribution width (RBC) [Ratio]15.1 %Critically high 11.0-15.0The [facility] Centerment on above:Performed By: #### DATCBC #### [facility] [address] [place] [address] Dr. Jose RojasHematocrit (Bld) [Volume fraction]49.2 %Flnute81.0-54.0The [facility] HospitalComment on above:Performed By: #### DATCBC #### [facility] [address] [place] [address] Dr. Jose RojasHemoglobin (Bld) [Mass/Vol]16.1 g/hWKtxytc74.0-18.0The [facility] HospitalComment on above:Performed By: #### DATCBC #### [facility] [address] [place] [address] Dr. Jose Laura #0.07 10e3/ulCritically high0.00-0.03The [facility] Comment on above:Performed By: #### DATCBC #### [facility] [address] [place] [address] Dr. Jose Laura %0.7 %Critically high0.0-0.5The [facility] Centerment on above:Performed By: #### DATCBC #### [facility] [address] [place] [address] Dr. Jose Lyn #2.1 103/ulNormal1.2-3.8The [facility] Centerment on above:Performed By: #### DATCBC #### [facility] [address] [place] [address] Dr. Jose Castanedahocytes/100 WBC (Bld)22.2 %Laygcr33.5-60.0The [facility] Centerment on above:Performed By: #### DATCBC #### [facility] [address] [place] [address] Dr. Jose FernandezUAL DIFF REQNONormalThe [facility] HospitalComment on above: Performed By: #### DATCBC #### [facility] [address] [place] [address] Dr. Jose Evans (RBC) [Entitic mass]28.0 liKiaeii45.9-34.0The [facility] HospitalComment on above:Performed By: #### DATCBC #### [facility] [address] [place] [address] Dr. Jose Evans (RBC) [Mass/Vol]32.7 g/qYZbujfs07.9-35.2The [facility] HospitalComment on above:Performed By: #### DATCBC #### [facility] [address] [place] [address] Dr. Jose Graves (RBC) [Entitic vol]85.6 gDGlqdwv84.0-94.0The [facility] HospitalComment on above:Performed By: #### DATCBC #### [facility] [address] [place] [address] Dr. Jose Hardin #1.0 103/ulCritically high0.3-0.8The [facility] Comment on above:Performed By: #### DATCBC #### [facility] [address] [place] [address] Dr. Jose Templetonocytes/100 WBC (Bld)10.2 %Normal1.7-12.0[facility] Comment on above:Performed By: #### DATCBC #### [facility] [address] [place] [address] Dr. Jose Galvan #6.3 103/ulNormal1.4-6.5The [facility] HospitalComment on above:Performed By: #### DATCBC #### [facility] [address] [place] [address] Dr. Jose Edwardutrophils/100 WBC (Bld)65.4 %Aslvqa16.0-75.0The [facility] HospitalComment on above:Performed By: #### DATCBC #### [facility] [address] [address] [address] Jose RojasPlatelet mean volume (Bld) [Entitic vol]9.4 fLCritically low 9.5-13.5The [facility] HospitalComment on above:Performed By: #### DATCBC #### [facility] [address] [place] [address] Dr. Jose RojasPLT353 103/biNxopio353-824Syc [facility] HospitalComment on above: Performed By: #### DATCBC #### [facility] [address] [place] [address] Dr. Jose RojasRBC5.75 106/ulNormal4.70-6.10The [facility] HospitalComment on above:Performed By: #### DATCBC #### [facility] [address] [place] [address] Dr. Jose RojasWBC9.6 103/ulNormal4.0-11.0The [facility] HospitalComment on above: Performed By: #### DATCBC #### [facility] [address] [place] [address] Dr. Jose RojasCovid-19 PCR ([facility])on 80-98-2580SRCR-CoV-2 (COVID-19) RNA PRASHANT+probe Ql (Unsp spec)Not detectedNormalNOT DETECTEDThe [facility] Comment on above:Result Comment: When diagnostic testing is negative, the [...] for this test is supported by the [place] of Health and Human Service's declaration that circumstances exist to justify the emergency use of in vitro diagnostics for the detection and/or diagnosis of the virus that causes COVID-19. This EUA will remain in effect for the duration of the COVID-19 declaration justifying emergency of IVDs, unless it is terminated or revoked by the FDA (after which the test may no longer be used).Performed By: #### CVDTBH #### [facility] [address] [place] [address] Dr. Jose KellerF CHEM 8 (BAS METB)on 83-46-1919Qipuz gap [Moles/Vol]14.0 mmol/LNormalThe [facility] HospitalComment on above:Performed By: #### HSTROPN, BMP #### [facility] [address] [place] [address] Dr. Jose RojasCalcium [Mass/Vol]9.5 mg/dLNormal8.5-10.1The [facility] Comment on above:Performed By: #### HSTROPN, BMP #### [facility] [address] [place] [address] Dr. Jose RojasChloride [Moles/Vol]100 mmol/HGhqtou65-031QzgKettering Memorial Hospital Comment on above:Performed By: #### HSTROPN, BMP #### [facility] [address] [place] [address] Dr. Jose RojasCO2 [Moles/Vol]26.9 mmol/NLzgrjj27.0-32.0[facility] Comment on above:Performed By: #### HSTROPN, BMP #### [facility] [address] [place] [address] Dr. Jose RojasCreatinine [Mass/Vol]1.06 mg/dLNormal0.70-1.30The [facility] HospitalComment on above:Performed By: #### HSTROPN, BMP #### [facility] [address] [place] [address] Dr. Garcia ChangEGFR-AF SINGAPOREAN>60Normal>=60The [facility] HospitalComment on above:Performed By: #### HSTROPN, BMP #### [facility] [address] [place] [address] Dr. Garcia ChangEGFR-NON AF SINGAPOREAN>60Normal>=60The [facility] HospitalComment on above:Performed By: #### HSTROPN, BMP #### [facility] [address] [address] [address] Jose RojasGlucose [Mass/Vol]152 mg/dLCritically hqhc34-238Oin [facility] HospitalComment on above:Performed By: #### HSTROPN, BMP #### [facility] [address] [address] [address] Jose RojasPotassium [Moles/Vol]3.9 mmol/LNormal3.5-5.1The [facility] Comment on above:Performed By: #### HSTROPN, BMP #### [facility] [address] [address] [address] Jose RojasSodium [Moles/Vol]137 mmol/UXdcjji797-003Nar [facility] Comment on above:Performed By: #### HSTROPN, BMP #### [facility] [address] [place] [address] Dr. Jose RojasUrea nitrogen [Mass/Vol]19.0 mg/dLCritically high7.0-18.0The [facility] HospitalComment on above:Performed By: #### HSTROPN, BMP #### [facility] [address] [address] [address] Jose Liang nitrogen/Creatinine [Mass ratio]17.9 mg/mgNormalThe [facility] HospitalComment on above:Performed By: #### HSTROPN, BMP #### [facility] [address] [address] [address] Jose Rosas, HIGH SENSITIVITYon 15-22-3879DEMLBI3281.5 pg/mL Critically high4.0-76.1[facility] HospitalComment on above:Result Comment: CUT-OFF POINTS HAVE BEEN ESTABLISHED BASED ON THE FOURTH UNIVERSAL DEFINITIONS OF MYOCARDIAL INFARCTION. THE UPPER REFERENCE LIMIT (URL) OF TROPONIN, DEFINED THE 99TH PERCENTILE OF cTnI DISTRIBUTION IN A REFERENCE POPULATION, HAS BEEN CONFIRMED THE DECISION THRESHOLD FOR CT DIAGNOSIS.Performed By: #### HSTROPN #### [facility] [address] [place] [address] Dr. Jose RojasHSTROP142.5 pg/mLCritically high4.0-76.1The [facility] Comment on above:Result Comment: CUT-OFF POINTS HAVE BEEN ESTABLISHED BASED ON THE FOURTH UNIVERSAL DEFINITIONS OF MYOCARDIAL INFARCTION. THE UPPER REFERENCE LIMIT (URL) OF TROPONIN, DEFINED THE 99TH PERCENTILE OF cTnI DISTRIBUTION IN A REFERENCE POPULATION, HAS BEEN CONFIRMED THE DECISION THRESHOLD FOR CT DIAGNOSIS.Performed By: #### HSTROPN, BMP #### [facility] [address] [address] [address] Jose RojasXR CHEST 1 Von [id number] CHEST 1 VEXAMINATION: XR CHEST 1 V HISTORY: CHEST PAIN, UNSPECIFIED COMPARISON: [...] Electronically authenticated by: STORM CONDE Date: 2021-12-31 13:54[facility] HospitalXR LSPINE 2_3 VIEWSon [id number] LSPINE 2_3 VIEWSEXAMINATION: XR LSPINE 2_3 VIEWS HISTORY: Low back [...] Electronically authenticated by: HEAVENLY LOUIS Date: 2021-10-31 08:51[place] HospitalA1C HEMOGLOBINon 59-80-8810JnG9l (Bld) [Mass fraction]7.5 % [employer] Other Glucose - FINGER STICKon 81-67-2817Jlaawvb [Mass/Vol] 107 mg/dLNew [place] [facility] Other HbA1c (Bld) [Mass fraction]on 08-48-0106H3H HEMOGLOBIN [employer] Other Urinalysis - AUTOMATEDon 95-75-6712Gbmuybnekn (U) cloudyNsullivan county memorial hospital [employer] Other Bilirubin Ql (U)NegativeBablic [employer] Other Color (U)yellowBablic [employer] Other Glucose Ql (U)500Nothe [facility] [employer] Other Hemoglobin Ql (U)[facility]ly [facility] Hospital[facility] [employer] Other Ketones Ql (U)NegativeBablic [employer] Other Leukocyte esterase Test strip Ql (U)[facility]ly [facility] Hospital[facility] [employer] Other Nitrite Ql (U)PositiveBablic [employer] Other pH (U)6.0 [pH][employer] Other Protein Ql (U)traceNew Britain [employer] [employer] Other Specific gravity (U) [Rel density]1.025[place] [employer] Other Urobilinogen (U) [Mass/Vol]0.2 mg/dLNew Britain [facility] Other Urinalysis - AUTOMATEDBablic [employer] Other Urine Cultureon 44-91-6835Ppuuqxnz identified Cx Nom (U)[employer] Other A1C HEMOGLOBINon 42-26-8640MaY2g (Bld) [Mass fraction] 7.4 %[employer] Other Glucose - FINGER STICKon 33-39-5375Jwagbbz [Mass/Vol] 168 mg/dLBablic [employer] Other HbA1c (Bld) [Mass fraction]on 90-31-7855I2R HEMOGLOBIN [facility] Other A1C HEMOGLOBINon 70-88-3852JuX3h (Bld) [Mass fraction] 6.6 %[facility] Other Glucose - FINGER STICKon 82-58-1173Dhbdsfe [Mass/Vol] 171 mg/dLNortSuburban Community Hospital Ininal Other HbA1c (Bld) [Mass fraction]on 05-42-5949V1Y HEMOGLOBIN [facility] Other Vital Signs Date TimeVital SignValuePerforming OstyjdhmuMtsmivuk26-07-9363 09:16-0400Body .8 cmBenjamin Ball DO Work Phone: [facility]10-21-2025 09:16-0400 Body mass index (BMI) [Ratio]37.6 kg/g0Qdhatere Ball DO Work Phone: [phone]10-21-2025 09:16-0400 Body .03 kgBenjamin Ball DO Work Phone: [phone]10-21-2025 09:16-0400 Diastolic blood dxbauhbd55 mm[Hg]Fahad Ball DO Work Phone: [phone]10-21-2025 09:16-0400 Heart rate68 /minBenjamin Ball DO Work Phone: [phone]10-21-2025 09:16-0400 Respiratory rate12 /minBenjamin Ball DO Work Phone: [phone]10-21-2025 09:16-0400 Systolic blood efyhekff393 mm[Hg]Fahad Ball DO Work Phone: [phone]08-13-2025 16:05-0400 Body .8 cmBenjamin Ball DO Work Phone: [phone]08-13-2025 16:05-0400 Body mass index (BMI) [Ratio]37.7 kg/q9Pzsossrw Ball DO Work Phone: [phone])[facility] [place], [place] 2437008-13-2025 16:05-0400 Body gaykgh737.2 kgBenjamin Ball DO Work Phone: [phone] [place], [place] 8505408-13-2025 16:05-0400 Diastolic blood olzqeufj44 mm[Hg]Fahad Ball DO Work Phone: [phone] [place], [place] 2437008-13-2025 16:05-0400 Heart rate70 /minBenjamin Ball DO Work Phone: [phone] [place], [place] 8505408-13-2025 16:05-0400 Respiratory rate18 /minBenjamin Ball DO Work Phone: [phone] [place], [place] 8505408-13-2025 16:05-0400 SaO2% (BldA) [Mass fraction]96 %Fahad Ball DO Work Phone: [phone])[facility] [place], [place] 2437008-13-2025 16:05-0400 Systolic blood mm[Hg]Fahad Ball DO Work Phone: [phone] [place], [place] 8505407-09-2025 15:49-0400 Body ihtoul375.8 cmBenjamin Ball DO Work Phone: [phone] [place], [place] 8505407-09-2025 15:49-0400 Body mass index (BMI) [Ratio]38.3 kg/p4Tbhtriua Ball DO Work Phone: 1(682)[facility] [place], [place] 2437007-09-2025 15:49-0400 Body eglqvg170.27 kgBenjamin Ball DO Work Phone: [phone] [place], [place] 8505407-09-2025 15:49-0400 Diastolic blood ieqtpeed26 mm[Hg]Fahad Ball DO Work Phone: 1(870)[facility] [place], [place] 2437007-09-2025 15:49-0400 Heart rate73 /minBenjamin Ball DO Work Phone: [facility]07-09-2025 15:49-0400 Respiratory rate12 /minBenjamin Ball DO Work Phone: [facility]07-09-2025 15:49-0400 Systolic blood mm[Hg]Fahad Ball DO Work Phone: [facility]05-07-2025 16:14-0400 Body opzjdm938.8 cmC[facility]05-07-2025 16:14-0400Body mass index (BMI) [Ratio]38.2 kg/x7HtbynvjbdC[facility] Clinic [facility]05-07-2025 16:14-0400Body niiavx263.7 [place]05-07-2025 16:14-0400Diastolic blood omfqvywu67 mm[Hg][facility] 08-21-2024 16:14-0400Heart rate73 /[facility] 08-21-2024 16:14-0400Respiratory rate18 /[facility] 08-21-2024 16:14-0552SiH0% (BldA) [Mass fraction]94 %[facility]05-07-2025 16:14-0400Systolic blood sgijpgyb441 mm[Hg][facility]01-29-2025 16:05-0500Body mhuxyd511.8 cmC[facility]01-29-2025 16:05-0500Body mass index (BMI) [Ratio]38.7 kg/u0KuxihigehC[facility] Clinic [facility] Hospital01-29-2025 16:05-0500Body gayhms613.24 kgC[facility]01-29-2025 16:05-0500Diastolic blood wneuacyl15 mm[Hg] [facility]01-29-2025 16:05-0500Heart rate70 /[facility]01-29-2025 16:05-0500Respiratory rate18 /[facility]01-29-2025 16:05-8282QuP1% (BldA) [Mass fraction]95 % [facility]01-29-2025 16:05-0500Systolic blood pmvcneix251 mm[Hg][facility]01-07-2025 15:52-0500Body .8 cm [facility]01-07-2025 15:52-0500Body mass index (BMI) [Ratio]39.8 kg/m9IckhiccgmC[facility] Clinic [facility]01-07-2025 15:52-0500Body .81 kgC[facility]01-07-2025 15:52-0500Diastolic blood thaqwrcm70 mm[Hg][facility]01-07-2025 15:52-0500 Heart rate76 /[facility]01-07-2025 15:52-0500 Respiratory rate12 /[facility]01-07-2025 15:52-0500 Systolic blood gxrtuhos271 mm[Hg][facility]10-23-2024 16:30-0400Body ydgkgp370.8 cmC[facility]10-23-2024 16:30-0400Body mass index (BMI) [Ratio]38.5 kg/t9HqnwguxltC[facility] Clinic [facility] Hospital10-23-2024 16:30-0400Body .78 kgC[facility] 02-07-2024 16:30-0400Diastolic blood jrwluyrz70 mm[Hg][facility]10-23-2024 16:30-0400Heart rate74 /[facility] 02-07-2024 16:30-0400Respiratory rate18 /[facility] 02-07-2024 16:30-1882TgX5% (BldA) [Mass fraction]97 %[facility]10-23-2024 16:30-0400Systolic blood mm[Hg][facility]07-17-2024 16:16-0400Body hyvxxh494.8 cmC[facility]07-17-2024 16:16-0400Body mass index (BMI) [Ratio]39.2 kg/w9FeafqksjfC[facility] Clinic [facility] Hospital07-17-2024 16:16-0400Body .83 kgC[facility]07-17-2024 16:16-0400Diastolic blood vxchqaat28 mm[Hg] [facility]07-17-2024 16:16-0400Respiratory rate16 /min [facility]07-17-2024 16:16-8698HhU6% (BldA) [Mass fraction]93 %[facility]07-17-2024 16:16-0400Systolic blood chuesxil672 mm[Hg][facility]07-03-2024 15:43-0400 Body aupqju421.8 cmC[facility]07-03-2024 15:43-0400Body mass index (BMI) [Ratio]39.2 kg/l7JhspejaijC[facility] Clinic [facility] Hospital07-03-2024 15:43-0400Body yfqjgr889.94 kgC[facility]07-03-2024 15:43-0400Diastolic blood dkeqzllj80 mm[Hg][facility] 10-18-2023 15:43-0400Heart rate77 /[facility] 10-18-2023 15:43-0400Respiratory rate12 /[facility] 10-18-2023 15:43-0400Systolic blood qbjaltte225 mm[Hg][facility]05-29-2024 13:15-0400Body mass index (BMI) [Ratio]39.86 kg/h0ExvpgpaJian Alberto MD Work Phone: [facility]burgGyuekt20-19-2525 13:15-0400Body fyqyas072 kg Jian Alberto MD Work Phone: [place] Hflrwd50-81-4410 13:15-0400Diastolic blood xzenzlrm54 mm[Hg]Jian Alberto MD Work Phone: [place] Yiasaz39-34-5559 13:15-0400Heart rate72 /min Jian Alberto MD Work Phone: [place] Brmiwy43-11-2340 13:15-0400Systolic blood wjysyxmo590 mm[Hg]Jian Alberto MD Work Phone: [place] Hwnnyf60-35-6383 13:51-0400Body icwwwc691.8 cmGiovanni Mulligan MD Work Phone: [facility]04-19-2024 13:51-0400Body gisyip081.29 Althea Mulligan MD Work Phone: [facility]04-11-2024 12:44-0400Respiratory rate 18 /minPacc 6 Work Phone: [facility]03-26-2024 15:26-0400Body basdwr220.8 cmC[facility]03-26-2024 15:26-0400Body mass index (BMI) [Ratio]39.4 kg/i7GxsehdkjyC[facility] Clinic [facility] Hospital03-26-2024 15:26-0400Body iotzzx850.73 [place]03-26-2024 15:26-0400Diastolic blood nhrwsxuf45 mm[Hg][facility]03-26-2024 15:26-0400 Heart rate73 /[facility]03-26-2024 15:26-0400Systolic blood usmhjvnu746 mm[Hg][facility]03-06-2024 16:14-0500 Body fzoypn139.8 cmC[facility]03-06-2024 16:14-0500Body mass index (BMI) [Ratio]39.4 kg/d4CcoesfbzzC[facility] Clinic [facility]03-06-2024 16:14-0500Body oexdlx654.73 kgC[facility]03-06-2024 16:14-0500Diastolic blood kbobfgyp91 mm[Hg][facility] 06-21-2023 16:14-0500Heart rate70 /[facility] 06-21-2023 16:14-0500Respiratory rate18 /[facility] 06-21-2023 16:14-2283CkC9% (BldA) [Mass fraction]95 %[facility]03-06-2024 16:14-0500Systolic blood pwyakzsu591 mm[Hg][facility]03-04-2024 13:05-0500Body pzlefh498.29 Baldev Colmenares MD Work Phone: [facility]03-04-2024 13:05-0500Diastolic blood vbaywviw48 mm[Hg]Ligia Colmenares MD Work Phone: [facility]03-04-2024 13:05-0500Heart rate68 /min Ligia Colmenares MD Work Phone: [facility]03-04-2024 13:05-0500Systolic blood kooubard834 mm[Hg]Ligia Colmenares MD Work Phone: [facility]01-03-2024 15:30-0500Body .8 cmBenjamin Ball Other [facility]01-03-2024 15:30-0500 Body mass index (BMI) [Ratio]39.91 kg/h0Hzpoueln Ball Other [employer] Other 01-03-2024 15:30-0500Body ugtihk152.19 kgBenjamin Ball Other [employer] Other 01-03-2024 15:30-0500Body dmcdex321.18 kgDO Fahad Ball Work Phone: [facility]01-03-2024 15:30-0500 Diastolic blood jlilgkps53 mm[Hg]Fahad Ball Other [facility]01-03-2024 15:30-0500 Respiratory rate16 /minBenjamin Ball Other [employer] Other 01-03-2024 15:30-0500Systolic blood uluwpwrm234 mm[Hg] Fahad Ball Other [facility]12-06-2023 11:46-0500 Blood Pressure LocationGregohio state [facility] CytoPherx Exaprwzgl [facility] [place] 279982-06-2023 11:46-0500Diastolic blood mm[Hg]Antonia BUSH Executive [facility] [place] 279982-06-2023 11:46-0500Heart rate69 /minAntonia BUSH [facility] [place] 279982-06-2023 11:46-0500Systolic blood qebqvlku686 mm[Hg]Antonia BUSH [facility] [place] 279981-22-2023 16:15-0500Body yajjzi105.8 cmTondra Mapus Other [facility]11-22-2023 16:15-0500 Body mass index (BMI) [Ratio]39.65 kg/t6Mkvjsh [employer] Other [employer] Other 11-22-2023 16:15-0500Body yvmfzg448.38 kgTondra Mapus Other [employer] Other 11-22-2023 16:15-0500Body izpoya216.37 kgDO Fahad Aceves Work Phone: [facility]11-22-2023 16:15-0500 Diastolic blood phuwligm89 mm[Hg]Tondra Mapus Other [facility]11-22-2023 16:15-0500 Respiratory rate18 /minTondra Mapus Other [employer] Other 11-22-2023 16:15-1706FgT6% (BldA) [Mass fraction]96 % Tondra Mapus Other [employer] Other 11-22-2023 16:15-0500Systolic blood vtivqtoa749 mm[Hg] Tondra Mapus Other [facility]10-06-2023 14:45-0400 Body wjslqu432.8 cmBenjamin Ball Other [employer] Other 10-06-2023 14:45-0400Body mass index (BMI) [Ratio] 39.17 kg/i1Kbuvnrry Ball Other [employer] Other 10-06-2023 14:45-0400Body xeluin410.83 kgBenjamin Ball Other [employer] Other 10-06-2023 14:45-0400Diastolic blood sgfnuljm30 mm[Hg] Fahad Ball Other [employer] Other 10-06-2023 14:45-0400Respiratory rate18 /minBenjamin Ball Other [employer] Other 10-06-2023 14:45-0400Systolic blood mm[Hg] Fahad Ball Other [employer] Other 08-10-2023 15:30-0400Body fjsofd901.8 cmTondra Mapus Other [facility] [employer] Other 08-10-2023 15:30-0400Body mass index (BMI) [Ratio] 39.22 kg/w9Firbrp [employer] Other [employer] Other 08-10-2023 15:30-0400Body jvnkqa977.01 kgTondra Mapus Other [employer] Other 08-10-2023 15:30-0400Diastolic blood jtujttef98 mm[Hg] Tondra Mapus Other [employer] Other 08-10-2023 15:30-0400Respiratory rate18 /minTondra Mapus Other [employer] Other 08-10-2023 15:30-3735LzE9% (BldA) [Mass fraction]95 % Tondra Mapus Other [employer] Other 08-10-2023 15:30-0400Systolic blood mm[Hg] Tondra Mapus Other [employer] Other 07-03-2023 15:30-0400Body .8 cmBenjamin Ball Other [employer] Other 07-03-2023 15:30-0400Body mass index (BMI) [Ratio]39.6 kg/j5Ndtcasgc Ball Other [employer] Other 07-03-2023 15:30-0400Body .19 kgBenjamin Ball Other [employer] Other 07-03-2023 15:30-0400Diastolic blood mm[Hg] Fahad Ball Other [employer] Other 07-03-2023 15:30-0400Respiratory rate16 /minBenjamin Ball Other [employer] Other 07-03-2023 15:30-0400Systolic blood mm[Hg] Fahad Ball Other [employer] Other 05-08-2023 16:30-0400Body .8 cmTondra Mapus Other [employer] Other 05-08-2023 16:30-0400Body mass index (BMI) [Ratio] 39.93 kg/q9Xzbuds Mapus Other [employer] Other 05-08-2023 16:30-0400Body qhtepj724.24 kgTondra Mapus Other [employer] Other 05-08-2023 16:30-0400Diastolic blood mm[Hg] Tondra Mapus Other [employer] Other 05-08-2023 16:30-0400Respiratory rate18 /minTondra Mapus Other [employer] Other 05-08-2023 16:30-4321KpG7% (BldA) [Mass fraction]94 % Tondra Mapus Other [employer] Other 05-08-2023 16:30-0400Systolic blood ryhodjtf759 mm[Hg] Tondra Mapus Other [employer] Other 04-03-2023 16:30-0400Body mjxdoy642.8 cmBenjamin Ball Other [employer] Other 04-03-2023 16:30-0400Body mass index (BMI) [Ratio]40.2 kg/d5Bsamryuu Ball Other [employer] Other 04-03-2023 16:30-0400Body rnloih053.1 kgBenjorge Ball Other [employer] Other 04-03-2023 16:30-0400Diastolic blood lcezbwmb43 mm[Hg] Fahad Ball Other [employer] Other 04-03-2023 16:30-0400Respiratory rate16 /minBenjamin Ball Other [employer] Other 04-03-2023 16:30-0400Systolic blood ngkixxsa969 mm[Hg] Fahad Ball Other [employer] Other 02-02-2023 16:15-0500Body iizdam681.8 cmTondra Mapus Other [employer] Other 02-02-2023 16:15-0500Body mass index (BMI) [Ratio] 40.79 kg/r5Tymbfh Mapus Other [employer] Other 02-02-2023 16:15-0500Body ejsibs017.96 kgTondra Mapus Other [employer] Other 02-02-2023 16:15-0500Diastolic blood azphedxt18 mm[Hg] Tondra Mapus Other [employer] Other 02-02-2023 16:15-0500Respiratory rate18 /minTondra Mapus Other [employer] Other 02-02-2023 16:15-5845FvO0% (BldA) [Mass fraction]93 % Tondra Mapus Other [employer] Other 02-02-2023 16:15-0500Systolic blood wzzgqaqt794 mm[Hg] Tondra Mapus Other [facility] [employer] Other 01-18-2023 16:30-0500Body wckehr593.8 cmBenjamin Ball Other [facility] [employer] Other 01-18-2023 16:30-0500Body mass index (BMI) [Ratio] 41.23 kg/g6Efcfhhhh Ball Other [employer] Other 01-18-2023 16:30-0500Body .36 kgBenjamin Ball Other [employer] Other 01-18-2023 16:30-0500Diastolic blood mm[Hg] Fahad Ball Other [employer] Other 01-18-2023 16:30-0500Respiratory rate20 /minBenjamin Ball Other [employer] Other 01-18-2023 16:30-0500Systolic blood acmptvsf841 mm[Hg] Fahad Ball Other [employer] Other 07-07-2022 14:45-0400Body fdberr774.8 cmTondra Mapus Other [employer] Other 07-07-2022 14:45-0400Body mass index (BMI) [Ratio] 40.31 kg/g1Knnvpj [employer] Other [facility] Other 07-07-2022 14:45-0400Body tgzxox005.46 kgTondra Mapus Other [facility] Other 07-07-2022 14:45-0400Diastolic blood tqdcocgw53 mm[Hg] Tondra Mapus Other [employer] Other 07-07-2022 14:45-0400Respiratory rate20 /minTondra Palomous Other [employer] Other 07-07-2022 14:45-5238FnY3% (BldA) [Mass fraction]96 % Tondra Palomous Other [employer] Other 07-07-2022 14:45-0400Systolic blood voijwnaa549 mm[Hg] Tondra Mapus Other [employer] Other 04-27-2022 15:15-0400Body cjkycb305.8 cmPamela Ramona Other [employer] Other 04-27-2022 15:15-0400Body mass index (BMI) [Ratio] 38.74 kg/n9Tekuvz Ramona Other [employer] Other 04-27-2022 15:15-0400Body diljttfozkd65.2 [degF]Celestina Ramona Other [employer] Other 04-27-2022 15:15-0400Body hijxed874.47 kgPamela Ramnoa Other [employer] Other 04-27-2022 15:15-0400Diastolic blood coasigbq58 mm[Hg] Celestina Ramona Other [employer] Other 04-27-2022 15:15-0400Respiratory rate18 /minPayisel Greene Other [employer] Other 04-27-2022 15:15-7570TjR5% (BldA) [Mass fraction]99 % Celestina Greene Other [employer] Other 04-27-2022 15:15-0400Systolic blood hqjlmfci522 mm[Hg] Celestina Greene Other [employer] Other 03-15-2022 15:30-0400Body .8 cmTondra Mapus Other [employer] Other 03-15-2022 15:30-0400Body mass index (BMI) [Ratio] 40.89 kg/s5Jjnpis Mapus Other [employer] Other 03-15-2022 15:30-0400Body wzesre559.28 kgTondra Mapus Other [employer] Other 03-15-2022 15:30-0400Diastolic blood adsoulga52 mm[Hg] Tondra Mapus Other [employer] Other 03-15-2022 15:30-0400Respiratory rate20 /minTondra Mapus Other [employer] Other 03-15-2022 15:30-6684KjO3% (BldA) [Mass fraction]95 % Tondra Mapus Other [employer] Other 03-15-2022 15:30-0400Systolic blood awwbwanm796 mm[Hg] Tondra Mapus Other [employer] Other 12-08-2021 16:15-0500Body rtmaoa455.8 cmTondra Mapus Other [employer] Other 12-08-2021 16:15-0500Body mass index (BMI) [Ratio] 40.89 kg/t2Yjjzqm Mapus Other [employer] Other 12-08-2021 16:15-0500Body .28 kgTondra Mapus Other [employer] Other 12-08-2021 16:15-0500Diastolic blood rncaqzvr09 mm[Hg] Tondra Mapus Other [employer] Other 12-08-2021 16:15-0500Respiratory rate20 /minTondra Mapus Other [employer] Other 12-08-2021 16:15-2619LpD4% (BldA) [Mass fraction]97 % Tondra Mapus Other [employer] Other 12-08-2021 16:15-0500Systolic blood jexvqvrb047 mm[Hg] Tondra Mapus Other [employer] Other 09-22-2021 15:00-0400Body vjnvyl977.8 cmTondra Mapus Other [employer] Other 09-22-2021 15:00-0400Body mass index (BMI) [Ratio] 39.81 kg/m3AtkocxYamilex Foster Other [employer] Other [id number] 15:00-0400Body .87 kgYamilex Foster Other [facility] [employer] Other Encounters Encounter DateEncounter TypeCare ProviderFacilregency hospital [place] eastStart: 02-04-2025 End: 70-41-7717xphebrtsqeImzgbyvc Ball DO Work Phone: [facility]: 02-04-2025 End: 87-37-4313Rsypqog encounter procedureBenjorge Aceves DO-FP[facility] Work Phone: Start: 11-27-2024 End: 60-22-0786wlsfbmdzraKttbcbga Ball DO Work Phone: [facility] Work Phone: Start: 11-27-2024 End: 62-01-0757Iflwlsl encounter procedureYamilex Foster [facility] Work Phone: Start: 10-23-2024 End: 32-84-2038chrbljbmmgIxpivjyw Ball DO Work Phone: [facility] Work Phone: Start: 10-23-2024 End: 18-41-1201Umhhumr encounter procedureBenjorge Aceves DO-FP[facility] Work Phone: Start: 10-23-2024 End: 04-87-5705Nogaxpi encounter statusBenjorge Med[facility] Hospitaltart: [phone]-patient / Non-visitOutside Provider-[place] [employer] Work Phone: Start: 08-21-2024 End: 38-25-5516pytgviurtwCvjtnltrmSelect [facility] [place] Work Phone: Start: 08-21-2024 End: 85-91-6124Bfyroia encounter procedureC[facility] Work Phone: Start: 84-67-5043Fty-patient / Non-visitCone Health Women'S Hospital Physician Group-[facility] Work Phone: Start: 07-12-2024 End: 96-21-5149vvbqzmhlazJNSNHR MOUKARBOhioHealth Doctors Hospital Start: 05-15-2024 End: 13-04-5632grfhrmdocaIiabhxqyuSelect [facility] [place] Work Phone: Start: 05-15-2024 End: 64-95-9755Acckaab encounter procedureC[facility] Health [facility] Physician [facility] Work Phone: Start: 04-23-2024 End: 75-37-3440agvmvwdjysFgovwpassOhioHealth Grady Memorial Hospital Work Phone: Start: 04-23-2024 End: 79-32-2062Tnyqpgz encounter procedureC[facility] Health [facility] Hospital Physician [facility] Work Phone: Start: 02-07-2024 End: 88-86-7420usgpcwmlivMzibkzlnfOhioHealth Grady Memorial Hospital Work Phone: Start: 02-07-2024 End: 16-12-6824Xfuepdt encounter procedureC[facility] Health [facility] Physician [facility] Work Phone: Start: 87-99-4345xoihkwtvcnGYURTGSChillicothe Hospitaltart: 51-82-3701Xhe-patient / Non-visit [facility] Phys[facility] GroupWays[facility] Professional [facility] Work Phone: Start: 01-15-2024 End: 62-40-8818Hquzbivkf encounterJada Wilkins APRN.CHROME TANNER Work Phone: UrologyStart: 11-01-2023 End: 03-79-6958iexnsvglfzNtuhkajmpOhioHealth Grady [facility] Hospital Work Phone: Start: 11-01-2023 End: 77-18-0017Gtzlihp encounter procedureCone Health Women'S Hospital Physician GroupINSPIR[facility] Work Phone: Start: 10-18-2023 End: 63-18-8240jrcmaxdhteVdyzecxciSelect Medical [facility] [place] Work Phone: Start: 10-18-2023 End: 32-60-0797Vehbyzpqz for general adult medical examination without abnormal findingsGeorgetown Behavioral Hospitaltart: 10-18-2023 End: 95-22-9593Qhqbgmv encounter procedureCone Health Women'S Hospital Physician GroupMer[facility] Health [facility] Work Phone: Start: 95-53-0937Vkuijdkhv encounterJada Wilkins APRN.CNP Work Phone: UrologyStart: 09-13-2023 End: 99-93-2841gmytmmawseDkrtpxp W Angermeier MD Work Phone: UrologyStart: 09-13-2023 End: 68-05-7532Zjtbnsh encounter procedureJian Alberto MD Work Phone: UrologyComment on above:Acquired buried penis (Primary Dx); Scarring of penisStart: 08-04-2023 End: 49-51-5125Lyrdzeo encounter Sherie Mulligan MD Work Phone: UrologyComment on above:Acquired buried penis (Primary Dx)Start: 08-04-2023 End: 78-78-9383nuwuzrdqhuFSBEJW SANTIAGOFacility:[facility] Campustart: 07-28-2023 End: 74-10-4767paaoacrmcpLNSJPEQMelinda Nolascocility:[facility] Start: 77-64-2721Azu-patient / Non-visitC[facility] Health [facility] Professional [facility] Work Phone: Start: 07-27-2023 End: 19-84-3411Yslwogvdl to establishmentEastern State Hospital Main 6 Work Phone: [facility]INStart: 07-27-2023 End: 71-75-3228Omzvfjfmsduby examination donePa Main 6 Work Phone: [facility] Work Phone: Start: 07-27-2023 End: 74-72-0199dstawlecbpEkve Main 6 Work Phone: Pre AnesthesiaComment on above:Pre-operative examination (Primary Dx); Primary hypertension; Hyperlipidemia, unspecified hyperlipidemia type; 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; Chronic systolic CHF (congestive heart failure) (HCC); Paroxysmal atrial fibrillation (HCC); Gastroesophageal reflux disease, unspecified whether esophagitis present; Type 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 with other specified complication, with long-term current use of insulin ([facility]); Class 2 obesity due to excess calories without serious comorbidity with body mass index (BMI) of 39.0 to 39.9 in adultStart: 05-39-6770Qfwuejawg for other preprocedural examinationBENJAMIN [facility] HospitalStart: 56-83-6153Rokosixew encounterNoy Mary RN Work Phone: UrologyComment on above:Hand Bulldozer - OtherStart: 07-11-2023 End: 38-69-2592zcuxsmiwdrXxfnxglciOhioHealth [facility]ady [facility] Work Phone: Start: 07-11-2023 End: 59-13-1811Xyrkzth encounter procedureCone Health Women'[facility] Work Phone: Start: 06-21-2023 End: 99-93-1019Ubmlkgf encounter procedureCone Health Women'S Hospital Physician GroupINSP[facility] Work Phone: Start: 06-19-2023 End: 44-75-2422psnwtdtgyaIHUMO RIAD M.D.Facility:[facility] Campustart: 06-19-2023 End: 50-36-7170Hadlxgh encounter Lauri Colmenares MD Work Phone: CardiologyComment on above:Coronary artery disease involving yurok coronary artery of yurok heart, unspecified whether angina present (Primary Dx); History of non-ST elevation myocardial infarction (NSTEMI); Hx of CABG; Primary hypertension; Other hyperlipidemiaStart: 98-91-6102Pgx-patient / Non-visitFirthee Physician Group-[facility] Professional [employer] Work Phone: Start: 26-25-4741Pdtbujpop encounterNoy Mary RN Work Phone: UrologyComment on above:Hand Bulldozer - OtherStart: 05-03-2023 End: 68-96-4117yicnwghjuvDwpwjxiMelinda Alberto MD Work Phone: UrologyStart: 05-02-2023 End: 10-40-5025giipchofbkZtwgiql Calvey Other [employer]lic [employer] Other Start: 37-31-2108Xqeovp outpatient visit 10 minutes Yarelis CalvDamariG Malini OrthopedicsStart: 05-02-2023 End: 12-43-8719Adkfghq encounter procedureDO Fahad Aceves Work Phone: [facility]-Start: 04-19-2023 End: 36-52-8052peumotrfvfLlmgwdvp Yola Other [employer] Other Start: 12-54-6606Sbcxot outpatient visit 25 minutes Fahad Aceves [facility] ClinicStart: 04-19-2023 End: 41-84-2205Fsmcoan encounter procedureDO Fahad Aceves Work Phone: [facility] Work Phone: Start: 03-30-2023 End: 47-77-1365hdfsapefsdGanudhs Calvalyse Other [employer] Other Start: 55-34-8617Iaqjfjgfs encounterColleen CalveyFPG Referral CoordinatorStart: 03-28-2023 End: 25-75-9310xbjvjsciejOhleewc Calvey Other [employer] Other Start: 38-98-0310Jzpkvu outpatient visit 15 minutes Yarelis NeetaCARMENG Malini OrthopedicsStart: 03-22-2023 End: 22-74-0983undrdejjfgNQIVCZ K MAPUSFacility:EU Dioniciotart: 03-22-2023 End: 33-02-8769Enrbnjx encounter procedureAntonia BUSH [facility] Start: 03-08-2023 End: 08-45-0416Sbujmrqkip RecurringDO Fahad Aceves Work Phone: [facility] Work Phone: Start: 03-08-2023(DM) DiabetesTondra BullCone Health Women'S Hospital Coordinated Care ClinicStart: 03-08-2023 End: 29-37-6274shkdurlhlhLI Fahad Aceves Work Phone: [employer]Bablic [employer] Other Start: 03-08-2023 End: 49-21-0106Fqqwgom encounter procedureDO Fahad Aceves Work Phone: [facility] Work Phone: Start: 02-22-2023 End: 40-77-1817exvchhrqroXyyvtrx Calvalyse Other noBablic [employer] Other Start: 85-40-8704Rvonuq outpatient visit 15 minutes Yarelis BeebealyseCELESTINA Malini OrthopedicsStart: 01-20-2023 End: 17-56-0263nwokpaxcjzRugfocwo Ball Other [employer] Other Start: 24-42-7300Vfqlaz outpatient visit 15 minutes Fahad Acevse Medical ClinicStart: 12-09-2022 End: 97-39-5445rekfvkpqdqUmcsxv Bull Other [employer]Bablic [employer] Other Start: 12-57-2939Mukfkqabh encounterTondra Bull Fortune [facility] Care ClinicStart: 47-53-1638rsgdmouqhqVMVKAF MAPUS Facility:[facility] Centertart: 11-24-2022(DM) DiabetesTondra Jerodelandarabella Coordinated Care ClinicStart: 11-24-2022 End: 69-92-0518njowcyupooBzyard Mapus Other [employer] Other Start: 82-79-5983Ijgsbvdvi encounterTondra ElidaG EndocrinologyStart: 10-17-2022 End: 84-61-9150msfhfydtymRcpiyour Yola Other [employer] Other Start: 61-36-8679Kuizaqhem for general adult medical examination without abnormal findingsFahad YolaB[facility]ayson [facility] Medical ClinicStart: 12-69-9675Ldjvfhji preventive med est patient 40-64yrsBejorge AcevesPRESCOTT VA MED[facility] Yola Medical ClinicStart: 87-09-0540sxohfbynykPG FAHAD BALLFacility:W2Onceh: 08-24-2022 End: 43-08-9460tbdwkewqtzSXLPO D [facility] GLENDALEFacility:T1Nxhkc: 08-22-2022(DM) DiabetesTondra Claudia Coordinated Care ClinicStart: 08-22-2022 End: 51-13-8384hnjuwyynoiOsueen Palomous Other [employer] Other Start: 07-18-2022 End: 03-12-8641iarsgubwfpHfpjixef Ball Other [employer] Other Start: 89-39-3999Ukmvcw outpatient visit 15 minutes Fahad Aceves Medical ClinicStart: 05-19-2022(DM) DiabetesTondra Bull [facility] ClinicStart: 05-19-2022 End: 81-38-4186kzbuxbgqbzJkmvef Palomous Other [employer] Other Start: 05-04-2022 End: 38-26-4394egoncwkpisRpqvzwlc Ball Other [place] [employer] Other Start: 17-11-7592Cjfagn outpatient visit 25 minutes Fahad Aceves Medical ClinicStart: 04-19-2022 End: 50-23-9896udntkejzuaBM FAHAD BALLFacility:J1Lwozk: 04-05-2022 End: 76-22-8692rqrbuqhszoDT FAHAD BALLFacility:V1Ycgml: 03-30-2022 End: 16-64-9824uuvfhieafgYJ FAHAD YOLAFacility:Z7Byhre: 02-24-2022 End: 26-37-2527wgrzjkcdtpBZ FAHAD BALLFacility:Q3Tkdlk: 02-17-2022 End: 27-40-1120npbdvqcpblGU FAHAD YOLAFacility:A5Kvjqr: 02-16-2022 End: 30-82-9243zsafblngwzBU FAHAD BALLFacility:X4Hohhz: 02-14-2022 End: 31-99-6326ahdxedehplIycval Mapus Other [place] [employer] Other Start: 19-46-9298Mpxbrbsix encounterTondra MapusFPG EndocrinologyStart: 02-11-2022 End: 65-81-7970xduubaplddZL Fahad Aceves Work Phone: [facility] Work Phone: Start: 02-11-2022 End: 55-90-3715Udhnius encounter procedureDO Fahad Aceves Work Phone: [facility] Main CampusStart: 02-10-2022 End: 04-72-7585aboumdbssqPM SIMBA MOUKARBELFacility:P7Galwl: 02-01-2022 Registered RecurringDO Fahad Aceves Work Phone: [facility] Start: 02-01-2022 End: 01-48-7455ncuucwwzxlYpyxna Mapus Other [employer] Other Start: 62-83-8705Njfjffuwc encounterTondra PalomousFPG EndocrinologyStart: 32-98-3561sqpgvheaqqFN FAHAD BALLFacility:C5Ysjwu: 12-31-2021 End: 16-88-2902obqpoaoqqsXHWLXLX D KATKOFacility:A1Nhraf: 71-26-7913chzsnzbsby PETER D HIGHLANDERFacility:X8Tttyd: 11-15-2021 End: 49-50-4597decmlmijchDQ FAHAD BALLFacility:L6Jpbht: 10-29-2021 End: 67-70-2543enqjyccmpmVV FAHAD BALLFacility:X4Tcngc: 10-21-2021(DM) DiabetesTondra MapusFirelands Coordinated Care ClinicStart: 10-21-2021 End: 49-41-5420inbddrzgcyQxzbop Mapus Other [employer] Other Start: 09-09-2021 End: 46-61-7860ftmpzkfyycDBSCA D HIGHLANDERFacility:N2Elupr: 08-11-2021 End: 46-53-8250llvtbeqmunDogqjx Ramona Other [employer] Other Start: 24-11-5763Bbeppy outpatient visit 25 minutes Celestina GreeneFPSiomara Urgent Care ClydeStart: 06-29-2021(DM) DiabetesTondra Mapus [facility] Coord[facility] Care ClinicStart: 06-29-2021 End: 88-65-1678dcyumfceocNrgcxh Mapus Other [employer] Other Start: 05-12-2021 End: 04-00-5869urdygklypyFafmrj Mapus Other [employer] Other Start: 69-71-4218Hhvdahlbg encounterTondra Mapus FireRacine County [facility] Care ClinicStart: 05-04-2021 End: 93-19-1190hsndbvqehaPkhhry Mapus Other [facility] [employer] Other Start: 21-87-4378Dyqdkejhe encounterAbrazo Scottsdale Campusdra Foster [facility] ClinicStart: 03-24-2021(DM) DiabetesTondra [facility] ClinicStart: 03-24-2021 End: 56-88-0464slpnxnblfgWhfaeo Mapus Other [facility] [employer] Other Start: 54-37-1169Eaqyetq evaluation of patient and reportYamilex Taylor [facility] Procedures DateProcedureProcedure DetailPerforming ClinicianStart: 41-86-4638Cib routine ecg w/least 12 lds i&r onlyLigia Colmenares MD Work Phone: Start: 93-94-9067Vqtkn dip stick/tablet rgnt auto w/o microscopyBulk Order ProviderStart: 21-50-5137Zpuflwxh artery bypass grafts x 5 Antonia ELEAZAR Coronary artery bypass graftBenjorge Aceves Other History of coronary artery bypass graftingHx of CABG Ligia Colmenares MD Work Phone: Plan of Treatment DateCare ActivityDetailAuthorStart: 39-66-0522PS Controlled (<130/80)BP Controlled (<130/80)[place] ClinicStart: 84-06-8391IT Controlled (<130/80)BP Controlled (<130/80)[facility] Hospitaltart: 02-14-2024 End: 31-28-8594Ssgvpnb encounter gvgtoggnm00/30/2024 10:15 AM EDT Office Visit Urology [address] [address] Jian Alberto MD [address] [place] [address] 5 month f/u ED per cc chartUrologyComment on above:5 month f/u ED per cc chart Start: 52-98-9461Cfufodhmsi A1c luxxibvxkhfIgA6MQusuppfbi ClinicStart: 93-67-6186Vqvvq-19 Vaccine ( season)Covid-19 Vaccine ( season)[facility] Hospitaltart: 06-25-4501Zitkvyrxj vaccinationAv[facility] Start: 62-36-9001Iysykvyhlu Health ScreeningBehavioral Health ScreeningHarrison Community Hospitaltart: 30-09-0346Elxfmgjgol AssessmentDepression AssessmentHarrison Community Hospitaltart: 58-96-8836Kmhjsnunf B surface antibody levelLDL Cholesterol [facility] Hospitaltart: 75-25-0597Llvdj-19 Vaccine ( season)Covid-19 Vaccine ( season)[facility] Hospitaltart: 76-25-0300Pcvhtruzv vaccinationInfluenza Vaccine (#1)[facility] Hospitaltart: 29-54-3456Tkpeltqueb A1c vtplqucnhrgDiZ0VAojozrwia ClinicStart: 87-12-2719WBV Vaccine (1 - 1-dose 60+ series)RSV Vaccine (1 - 1-dose 60+ series)[facility] Hospitaltart: 22-11-8501MPT Vaccine (1 - Risk 60-74 years 1-dose series)RSV Vaccine (1 - Risk 60-74 years 1- dose series)[facility] Hospitalt[facility]: 47-95-2199Qqfccheq specific antigen measurementProstate Cancer Screening DiscussionHarrison Community Hospitaltart: 01-11-2012 Shingrix Vaccine (1 of 2)Shingrix Vaccine (1 of 2)[facility] Hospital[facility]: 38-70-4064Ritoyzyso for malignant neoplasm of colonHarrison Community Hospitaltart: 91-16-9070Njfda microalbumin profileDTaP,Tdap,Td Vaccine (1 - Tdap)[facility] Hospitaltart: 99-50-7519Fngvtf PCP Team Chronic Disease VisitAnnual PCP Team Chronic Disease VisitHarrison Community Hospitaltart: 43-41-8277Zoirioa ScreeningAnxiety ScreeningHarrison Community Hospitaltart: 32-18-7866Czlmsejudx ScreeningDepression ScreeningHarrison Community Hospitaltart: 87-66-9628Iozgjnmxh C screeningHepatitis C ScreeningHarrison Community Hospitaltart: 97-35-2011KMP screeningHIV ScreeningHarrison Community Hospitaltart: 88-77-6917Qzstplhv foot examinationDiabetic Foot ExamHarrison Community Hospitaltart: 66-92-1631Wicmxzgi screeningDilated Retinal ExamAvita Health System [facility] Start: 23-96-8884Hszipqyfw B screeningUrine Albumin:Creatinine RatioHarrison Community Hospitaltart: 75-99-3205Exwnotubavrp vaccinationPneumococcal Vaccine (1 of 2 - PCV)[facility] Hospitaltart: 85-90-3176Pyynm-19 Vaccine (#1)Covid-19 Vaccine (#1) [facility] HospitalComprehensive metabolic 2000 panel - Serum or PlasmaCleveland Clinic Medina HospitalPatient EducationBarnesville Hospital Work Phone: URINALYSIS, REFLEX MICROSCOPICURINALYSIS, REFLEX MICROSCOPIC Lab Routine Screening for genitourinary condition Ordered: 09/13/2023[facility] Work Phone: comment on above:Ordered: 09/13/2023XR [facility] 2 [facility] Lumbar [facility] 2 or 3 [facility] Immunizations Immunization DateImmunizationNotesCare UrtasdatJxfnizrl15-08-9466TYDFV-59 Pfizer (bivalent)Fahad Aceves Other [facility]12-07-2021COVID-19 Vaccine Pfizer - Documentation Purposes OnlyBejorge Aceves Other [facility]04-19-2021COVID-19 Vaccine Pfizer - Documentation Purposes OnlyBenjorge Aceves Other [facility]03-29-2021COVID-19 Vaccine Pfizer - Documentation Purposes OnlyFahad Aceves Other [facility] Payers DatePayer CategoryPayerPolicy [id number] Health InsuranceFIRELANDS REG[facility] UMR CHOICE PLUS [id number] 2015-Present [phone] [address] [address] [place] [address] [facility] [id number] 2.16.840.1.110214.3.57[id number] 2.16.840.1.946590.3.57[id number] 2.16.840.1.919050.3.57[id number] 2.16.840.1.987232.3.57[id number] 2.16.840.1.846449.3.57[id number] 2.16.840.1.553687.3.57[id number] 2.16.840.1.867059.3.57[id number] 2.16.840.1.859008.3.57[id number] 2.16.840.1.434422.3.57[id number] 2.16.840.1.650679.3.57[id number] 2.16.840.1.174916.3.57[id number] 2.16.840.1.291229.3.57[id number] 2.16.840.1.432725.3.57[id number] 2.16.840.1.046785.3.57[id number] 2.16.840.1.394887.3.579.2.93734-61-9605Xiky-deq 9uk36976-v824-6477-k1j8-618hw[id number] 2.1[id number] 2.16.840.1.6[id number] 2.16840.1.498786.3.579.2.531 Social History DateTypeDetailFacilityUnknown if ever smokedNort [employer] Other Start: 05-03-2023 End: 01-15-3344Ser Assigned At [facility] Hospitaltart: 47-47-4791Obm Assigned At [facility]tart: 03-22-2023 End: 98-31-5758Enhhulq smoking statusNever smoked tobacco (finding)[facility] Hospitaltart: 57-93-9970Wanlyys use and exposureSmokeless tobacco non-userHarrison Community Hospitaltart: 05-03-2023 End: 06-82-7864Qfrtvgv of Social functionHarrison Community Hospitaltart: 34-23-3320Yki Assigned At [facility] HospitalNot on fileHarrison Community Hospitaltart: 07-27-2023 End: 76-97-6394Dutyzta intakeCurrent drinker of alcohol (finding)[facility] Hospitaltart: 04-23-2024 End: 54-70-3444DetIjmn (finding)[facility] Medical Equipment Procedure CodeEquipment CodeEquipment Original TextEquipment IdentifierDates Functional Status PjgwTgornakfxiIwasmpDvfxvuwj22-56-1566Wwtgscitch StatusN/AExec[facility] Clinical Notes 01-06-2021 to 11-27-2024 Note Date & NsdkOwkbZdbiztfm28-94-1518 Evaluation note* Diagnosis Onset Date Resolution Status Admit Date BMI 37.0-37.9, adult acuteAugust 2024 3:59pmDietary counseling and surveillanceacuteAugust 2024 3:59pmMixed hyperlipidemiaacuteAugust 2024 3:59pmVitamin B 12 deficiencyacuteAugust 2024 3:59pmHTN (hypertension)deletedAugust 2024 3:59pmType 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deletedAugust 2024 3:59pmAccidental fallacuteOctober 2024 9:04amLow back painacuteOctober 2024 9:04am Pain in joint involving left pelvic region and thighacuteOctober 2024 9:04am [facility] Work Phone: 1(717) 325-537807-09-2025 Evaluation note* Diagnosis Onset Date Resolution Status Admit Date Chronic HFrEF (heart failure with reduce d ejection fraction) acuteJuly 2024 3:43pmHypertensionacuteJuly 2024 3:43pmIschemic cardiomyopathyacuteJuly 2024 3:43pmLeft leg painacuteJuly 2024 3:43pm Mixed hyperlipidemiaacuteJuly 2024 3:43pmObesityacuteJuly 2024 3:43pm Type 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 with diabetic polyneuropathyacuteJuly 2024 3:43pm Type 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 with hyperglycemiaacuteJuly 2024 3:43pmScreening PSA (prostate specific antigen)noneactiveJuly 2024 3:43pmWellness examinationnoneactiveJuly 2024 3:43pmBMI 38.0-38.9,adultacuteAugust 2024 3:59pmDietary counseling and surveillanceacuteAugust 2024 3:59pmMixed hyperlipidemiaacuteAugust 2024 3:59pmVitamin B 12 deficiencyacuteAugust 2024 3:59pmHTN (hypertension)deletedAugust 2024 3:59pmType 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deletedAugust 2024 3:59pm [facility] Work Phone: 1(855) 574-719005-07-2025 Evaluation note* Diagnosis Onset Date Resolution Status Admit Date BMI 38.0-38.9,adult acuteMay 2024 4:01pmDietary counseling and surveillanceacuteAugust 21, 2024 4:01pmMixed hyperlipidemiaacuteMa2024 4:01pmVitamin B 12 deficiencyacute May 2024 4:01pmHTN (hypertension)deletedAugust 21, 2024 4:01pmType 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deletedMa2024 4:01pmChronic HFrEF (heart failure with reduced ejection fraction)acuteJuly 2024 3:43pmHypertensionacuteJuly 2024 3:43pmIschemic cardiomyopathyacuteJuly 2024 3:43pmLeft leg painacuteJuly 2024 3:43pmMixed hyperlipidemiaacuteJuly 2024 3:43pmObesityacuteJuly 2024 3:43pmType 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 with diabetic polyneuropathyacuteJuly 2024 3:43pmType 2 diabetes mellitus with hyperglycemiaacuteJuly 2024 3:43pmScreening PSA (prostate specific antigen)noneactiveJuly 2024 3:43pm Wellness examinationnoneactiveJuly 2024 3:43pm [facility] Work Phone: 1(923) 871-973103-28-2025 NoteUT Cardiology - [facility] Subjective Caden Wills is a 64 y.o. year old male patient being seen for 1 year follow up. Patient had Echo. Patient states he has no new complaints. Patient Active Problem List Diagnosis Chest pain NSTEMI (non-ST elevated myocardial infarction) (CMS/HCC) Obesity Diabetes mellitus, type II, insulin dependent (CMS/HCC) Respiratory insufficiency Hypomagnesemia Hypertension Hyperlipidemia Postoperative atrial fibrillation (CMS/HCC) Coronary artery disease involving yurok coronary artery of yurok heart without angina pectoris Chronic systolic heart failure (CMS/HCC) History of coronary artery bypass graft Acquired buried penis Erectile dysfunction associated with type 2 diabetes mellitus (CMS/HCC) Scarring of penis Anticoagulated Balanoposthitis GERD (gastroesophageal reflux disease) Hidden penis Phimosis Type 1 diabetes ([facility]) Family History Problem Relation Name Age of Onset Coronary artery disease Father Social History Tobacco Use Smoking status: Never Smokeless tobacco: Never Vaping Use Vaping status: Never Used Substance Use Topics Alcohol use: Not Currently Alcohol/week: 2.0 standard drinks of alcohol Types: 2 Cans of beer per week Drug use: Never HPI This is a 64-year-old man with prior history of coronary disease [...] of atrial fibrillation. Meanwhile continue Eliquis. I saw him on 05/23/2022 and due to [...] He appears to be in NYHA class I symptoms at this time. He does not have lower extremity edema. He denies palpitations. He has pain in the legs that he says is related to neuropathy. Review of Systems Cardiovascular: Negative for leg swelling. Objective Visit Vitals BP 109/64 (BP Location: Right arm, Patient Position: Sitting) Pulse 75 Ht 1.778 m (5' 10 ) Wt 121 kg (267 lb) SpO2 94% BMI 38.31 kg/m??? Smoking Status Never BSA 2.44 m??? Physical Exam Constitutional: Appearance: He is [...] side and 2+ on the left side. Dorsalis pedis pulses are 2+ on the right side [...] Affect: Mood normal. Behavior: Behavior is cooperative. Judgmen (more content not included)...[facility] 04-23-2024 Evaluation note* Diagnosis Onset Date Resolution Status Admit Date Chronic HFrEF (heart failure with reduce d ejection fraction) acuteJanuary 2024 3:40pmHypertensionacuteJanuary 2024 3:40pmIschemic cardiomyopathyacuteJanuary 2024 3:40pmLeft leg painacuteJanuary 2024 3:40pmMixed hyperlipidemiaacuteJanuary 2024 3:40pmObesityacuteJanuary 2024 3:40pmType 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 with diabetic polyneuropathyacuteJanuary 2024 3:40pmType 2 diabetes mellitus with hyperglycemiaacuteJanuary 2024 3:40pmBMI 38.0-38.9,adultacuteJanuary 2024 4:00pmDietary counseling and surveillanceacuteJanuary 2024 4:00pmMixed hyperlipidemiaacuteJanuary 2024 4:00pmVitamin B 12 deficiencyacuteJanuary 2024 4:00pmHTN (hypertension)deletedJanuary 2024 4:00pmType 2 diabetes mellitusdeleted May 15, 2024 4:00pm [facility] Work Phone: 1(240) 815-388310-23-2024 Evaluation note* Diagnosis Onset Date Resolution Status Admit Date BMI 38.0-38.9,adult acuteOctober 2023 4:26pmDietary counseling and surveillanceacuteOctober 2023 4:26pmMixed hyperlipidemiaacuteOctober 2023 4:26pmVitamin B 12 deficiencyacuteOctober 2023 4:26pmHTN (hypertension)deletedOctober 2023 4:26pmType 2 diabetes mellitusdeletedOctober 2023 4:26pmChronic HFrEF (heart failure with reduced ejection fraction)acuteJanuary 2024 3:40pm HypertensionacuteJanuary 2024 3:40pmIschemic cardiomyopathyacuteJanuary 2024 3:40pmMixed hyperlipidemiaacuteJanuary 2024 3:40pmType 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 with diabetic polyneuropathyacuteApruary 2024 3:40pmType 2 diabetes mellitus with hyperglycemiaacuteJanuary 2024 3:40pm [facility] Work Phone: 1(847) 294-389510-08-2024 NoteI was available for discussion and questions prior to patient visit. Plan was discussed prior to implementation and I was present for delivery of the plan. I agree with the assessment and plan and have modified the documentation as necessary. Caroline Silva, PharmD Cardiology Outpatient Clinical Pharmacist 01/23/24[facility]10-08-2024 NotePatient contacted clinic and updated labs were reviewed with patient. Stated he has been having leg pain (for 2-3 years); discussed high-risk of PAD due to severe CAD and DM. Will relay information to Dr. Kasper and discuss possibility of DVT/PAD work-up with imaging. Will continue to follow-up with patient regarding above issues. Caroline Silva PharmD Cardiology Outpatient Clinical Pharmacist 01/23/24[facility]10-08-2024 NotePharmacist Visit - Lipid Phone Consult Provider: Dr. Kasper Department: [facility] Cardiology SUBJECTIVE/OBJECTIVE Caden Wills is a [...] reschedule telephone visit for 01/23. Opal Peña, PharmD, PGY1 [employer] 01/23/24 [place] [facility]-2024 Telephone encounter Note* Telephone Encounter - Jada Wilkins APRN.CNP - 01/15/2024 2:53 PM EDT See previous telephone encounter from 10/04/2023. Keflex has been on auto refill, and [facility] has already been asked to cancel this request. Jada Wilkins APRN.CNP [facility] Work Phone: 1(205) 381-750909-30-2024 Telephone encounter Note* Telephone Encounter - Jada Wilkins APRN.CNP - 01/15/2024 2:53 PM EDT ----- Message from Kourtney Sena sent at 01/15/2024 9:13 AM EDT ----- Regarding: [facility] medication [facility] [employer] [facility]ed [facility] refill request for Cephalexin - it is not on his current med list. Please advise and thank you, Kourtney [facility]09-30-2024 Miscellaneous Notes* Telephone Encounter - Jada Wilkins APRN.CNP - 01/15/2024 2:53 PM EDT See previous telephone encounter from 10/04/2023. Keflex has been on auto refill, and [facility] has already been asked to [facility] this request. Jada Wilkins APRN.CNP * Telephone Encounter - Jada Wilkins APRN.CNP - 01/15/2024 2:53 PM EDT ----- Message from Kourtney Sena sent at 01/15/2024 9:13 AM EDT ----- Regarding: [facility] [employer] faxed over a refill request for Cephalexin - it is not on his current med list. Please advise and thank you, Kourtney documented in this encounterAvita [facility] System [facility]09-30-2024 NotePharmD Cardiology Consult - Lipids Provider: Dr. Kasper Department: [facility] Cardiology Caden Wills is a 64 [...] Caroline Silva PharmD Cardiology Outpatient Clinical Pharmacist 01/15/2024[facility]09-30-2024 NotePatient returned call; will complete labs by end of the week. Requested call back on Sunday 01/21 for follow-up. Orders placed. Caroline Silva PharmD Cardiology Outpatient Clinical Pharmacist 01/16/2024[facility]06-19-2024 Telephone encounter Note * Telephone Encounter - Jada Wilkins APRN.CHROME TANNER - 10/04/2023 4:24 PM EDT Keflex was prescribed for 1 month after buried penis surgery on 07/28/2023. Called Caden Wills. He reports trying to cancel refill request for Keflex with [facility] but was unsuccessful. Denies concerns about infection. Reminded him that he should follow up with Dr. Alberto in the fall. Left voicemail at [facility] in [employer], advising that Caden A Elio does NOT need refill on Keflexand asking them to take it off auto refill. Jada Wilkins APRN.CNP [facility] Work Phone: [phone] Miscellaneous Notes* Telephone Encounter - Jada Wilkins APRN.CNP - 10/04/2023 4:24 PM EDT Keflex was prescribed for 1 month after buried penis surgery on 07/28/2023. Called Caden Wills. He reports trying to cancel refill request for K[facility]lex with [facility] but was unsuccessful. Denies concerns about infection. Reminded him that he should follow up with Dr. Alberto in the fall. Left voicemail at [facility] in [employer], advising that Caden A Tyler does NOT need refill on Keflexand asking them to take it off auto refill. Jada Wilkins APRN.CNP * Telephone Encounter - Jada iWlkins APRN.CNP - 10/04/2023 4:18 PM EDT ----- Message from Kourtney Hodge Patient Service Spec sent at 10/04/2023 7:36 AM EDT ----- Regarding: Medication refill [facility] faxed over a refill request for Cephalexin 500 mg- it is not listed in his med list . Please advise and thank you, Kourtney documented in this encounterAvita [facility]06-19-2024 Telephone encounter Note * Telephone Encounter - Jada Wilkins APRN.CNP - 10/04/2023 4:18 PM EDT ----- Message from Kourtney Hodge Patient Service Spec sent at 10/04/2023 7:36 AM EDT ----- Regarding: Medication refill [facility] refill request for Cephalexin 500 mg- it is not listed in his med list . Please advise and thank you, Kourtney [facility]05-29-2024 NoteHNO ID: [id number] Author: JIAN ALBERTO MD Service: ? Author [...] tablet Take 20 mEq by mouth. omega 5-gqa-jkn-fish oil (FISH OIL) 100-160-1,000 mg cap Take [...] in the fall for recheck. Jian Alberto [facility]05-29-2024 History of Present illness Narrative* Jian Alberto [...] tablet Take 20 mEq by mouth. omega 8-eff-wrm-fish oil (FISH OIL) 100-160-1,000 mg cap Take 1,000 mg by mouth. No current facility-administered medications on file prior to visit. DATA/OR LABS TO BE REVIEWED: (Simple=1 data point; Complex= 2 or more) No results found for: PSA Creatinine (mg/dL) Date Value 07/29/2023 0.71 07/28/2023 0.75 07/27/2023 0.73 No results found for: TESTOST Noy Mary, cold reduction roller Staff Note: I performed a face to [...] recheck. Jian Alberto MD documented in this encounterAvita Health System [facility]05-29-2024 NotePatient Outreach (UROLMN) CADEN WILLS ([id number]) 1960 M Date Time Provider Department 09/13/23 JIAN ALBERTO During your visit today, we recorded the following information about you: Allergies As of Date: 09/13/2023 (No Known Allergies) Date Reviewed: 09/13/2023 Reviewed by: Rafal Mulligan MA - Fully Assessed Visit Diagnosis:Screening for genitourinary condition [Z13.89] Order(s):URINALYSIS, REFLEX MICROSCOPIC [[id number]] Order #: [id number] Prescriptions as of 09/18/2023 - amiodarone (PACERONE) [...] Take 20 mEq by mouth. - omega 0-xxb-pjd-fish oil (FISH OIL) 100-160-1,000 mg cap Take [...] excess calories without *07/27/2023 Encounter Status:Closed by [employer], PRODUSER on 09/18/23[facility] History of Present illness Narrative* Giovanni [...] & Prosthetic Surgery Fellow documented in this encounterAvita Health System [facility]04-19-2024 NoteHNO ID: [id number] Author: GIOVANNI MULLIGAN MD Service: ? Author [...] MD Male Genitourinary Reconstruction AND Prosthetic Surgery FellowTuscarawas Hospital04-13-2024 NoteHNO ID: [id number] Author: GRAZYNA PURDY MD Service: Urology Author Type: Resident Type: Progress Notes Filed: 07/29/2023 08:41 Note Text: [facility] UROLOGY PROGRESS NOTE Name: Caden Wills Bed: Main - Periop OR/Main - * Date: 07/29/2023 After Hours [facility] Urology Service Pager: [phone] ASSESSMENT AND PLAN Caden Wills is a [...] SSI inpatient Grazyna Purdy MD Urology Resident [facility] Pager [phone] For weekend or after hours issues [place] [phone] 6:53 AM 07/29/2023 Subjective SUBJECTIVE - See [...] 182* 82 Imaging All relevant recent imaging reviewedTuscarawas Hospital04-12-2024 NoteHNO ID: [id number] Author: JUICE GEE MD Service: Urology Author Type: Resident Type: Progress Notes Filed: 07/28/2023 16:17 Note Text: [facility] UROLOGY PROGRESS NOTE Name: Caden Wills Bed: Main - Periop OR/Main - * Date: 07/28/2023 After Hours [facility] Urology Service Pager: [phone] ASSESSMENT AND PLAN Caden Wills is a [...] SSI inpatient Juice Gee MD Urology Resident [facility] Pager [phone] For weekend or after hours issues please page the on-call urology pager [phone] 07/28/2023 4:16 PM Subjective SUBJECTIVE - See [...] nieto catheter draining clear light yellow urine, ETJ draining sanguinous fluid Neuro: Alert and Oriented x3 Recent Labs 07/28/23 1302 07/27/23 1324 WBC 10.10 10.12 HB 16.6 16.6 HCT 50.7 51.6* PLT 284 264 NA 140 140 K 4.7 4.1 CHLOR 104 101 CO2 23 25 BUN 16 17 CREAT 0.75 0.73 GLUC 182* 82 Imaging All relevant recent imaging reviewedTuscarawas Hospital04-12-2024 NoteHNO ID: [id number] Author: JEFFY MARTINEZ SRNA Service: ? 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 Alberto has scheduled you for your procedure at this surgery center: [facility] [place] Scheduling Office: [phone] --[address] [place] [address]. Please read below carefully for your personalized [...] not take the day of surgery omega 2-wrh-ewv-fish oil (FISH OIL) 100-160-1,000 mg cap Do [...] or other anticoagulants without consulting with your medical laboratory technicians or prescribing physician. - Stop Vitamin E, [...] Procedures: - YOU MUST HAVE A RESPONSIBLE EDITOR TAKE YOU HOME. A FLYING SHEAR OPERATOR OR QUARTER LINING SMOOTHER CANNOT BE MADE A RESPONSIBLE EDITOR. - We recommend that a responsible person [...] call the Monday before. Your surgeon s machine farmworker will tell you what time to call the office. - If you have not reached the departmental machine farmworker by 5 P.M., call [phone] after 5 P.M. the day before your surgery. Please be aware that emergency situations arise, which may delay or change your surgical time. If this happens, we will notify you as soon as possible and regret any inconvenience. If you already have an Advance Directive, please fax a copy to [phone] or email to for it to be [...] day. Kevin Goldsmith APRN.CNP documented in this encounterAvita Health [facility]04-11-2024 History and physical note * Kevin Goldsmith APRN.CNP - 07/27/2023 1:00 PM EDT Images from [...] artery disease involving coronary bypass graft of [place] heart without angina pectoris CAD, hx of CT s/p CABG x 5 in Dec 2021. [...] cardiac events (< 1% chance of , CT, CHF, malignant ventricular arrhythmias or high grade [...] note 06/19/23 notes the following, Echo 03/30/22 ([facility]) - Global LV systolic function is difficult [...] have a large neck STOP-Bang Score: 5 [id number] Score: Age: <65 Sex: male CHF history: Yes Hypertension history: Yes Stroke/TIA/thromboembolism history: No Vascular disease history: Yes Diabetes history: Yes [id number] Score: 4 ARISCAT Score: Age: 51-80 Preoperative [...] Associated With Type 2 Diabetes Mellitus (Hcc) ([facility]) Primary Hypertension Hyperlipidemia Coronary Artery Disease Involving Coronary Bypass Graft of [place] Heart Without Angina Pectoris Chronic Systolic Chf (Congestive Heart Failure) ([facility]) Paroxysmal Atrial Fibrillation (Hcc) Gerd (Gastroesophageal Reflux Disease) Type 2 Diabetes Mellitus, With Long-Term Current Use of Insulin ([facility]) Class 2 Obesity Due to Excess Calories [...] 20 mEq by mouth. Taking Yes omega 4-ysb-qvd-fish oil (FISH OIL) 100-160-1,000 mg cap Take [...] 414 QTC Calculation (Bazett) 440 Calculated P [place] 53 Calculated R [place] 20 Calculated T [place] 86 Impression NORMAL SINUS RHYTHM LOW VOLTAGE QRS NONSPECIFIC ST ABNORMALITY ABNORMAL ECG Confirmed by LIGIA COLMENARES M.D. ([id number]), film editor Lainey Agee ([id number]) on 06/19/2023 2:11:39 PM 03/30/2022 Echo- [facility] Global LV systolic function is difficult [...] 2:46 PM PAGER/CONTACT #: documented in this encounterAvita Health System [facility]04-02-2024 Miscellaneous Notes* Telephone Encounter - Noy Mary RN - 07/18/2023 3:38 PM EDT Called and spoke to Caden Wills regarding pre op issues. Instructed patient to take last dose of Farxiga on 07/23. Informed patient that his case is currently scheduled as first round with a 6:00 arrival time at [facility]. States that he will be going home after pre ops on 07/26 and coming back the following day. No other questions or concerns expressed. Noy Mary RN documented in this encounterAvita Health System [facility]03-04-2024 History of Present illness Narrative* Ligia Colmenares MD - 06/19/2023 1:00 PM EST Images from the original note were not included. [facility] [place] Rob Borden Department of Cardiovascular Medicine SECTION [...] furniture (8.00 METs). 12/06/2022 Robyn Miller Cardiology- [facility] HPI Pleasant 62-year-old man with prior [...] 1 tablet by mouth every afternoon. omega 4-ydo-dfo-fish oil (FISH OIL) 100-160-1,000 mg cap Take [...] JVD, carotids well felt, no bruits. CARDIAC: Omar palpable in the 5th intercostal space mid [...] reviewed from the reports only: 03/30/2022 Echo- [facility] Global LV systolic function is difficult [...] upper normal limits in size. 01/07/2022 CABGx5- [facility] CABG X 5; CPB; LEFT LEG VEIN HARVEST; INTRAOP FREDI Coronary artery bypass grafting x5, AGARWAL to LAD, saphenous vein graft to diagonal and obtuse marginal branches, and saphenous vein graft to PDA and right posterolateral ventricular branch. 01/05/2022 Cardiac Cath- [facility] Mid RCA lesion is 99% stenosed. [...] infiltrated over the right radial artery. A 6-[place]izen [place] Terumo Glidesheath slender was placed in right radial artery. Radial anti-vasospasm cocktail of verapamil 2.5 mg and nitroglycerin 200 mcg was administered through the sheath. All catheter exchanges were made over the [employer] Torque guidewire. JL3.5 was used to engage [...] cardiac events (< 1% chance of , CT, CHF, malignant ventricular arrhythmias or high grade [...] the patient follows up with an outside medical laboratory technicians. 5. Diabetes mellitus: Managed by PCP. 6. [...] the follow up visit. Ligia Colmenares MD, [facility], [facility] CC: To use this Smartlink, specify the provider ID whose address you want to display, e.g., .PROVADDR[1 (where 1 is the provider ID). documented in this encounterAvita Health System [facility]03-04-2024 NoteHNO ID: [id number] Author: LIGIA COLMENARES MD Service: ? Author Type: Physician Type: Progress Notes Filed: 06/19/2023 13:23 Note Text: [facility] [place] [facility] Department of Cardiovascular Medicine SECTION [...] furniture (8.00 METs). 12/06/2022 Robyn Miller Cardiology- [facility] HPI Pleasant 62-year-old man with prior [...] 1 tablet by mouth every afternoon. omega 5-jwq-nkm-fish oil (FISH OIL) 100-160-1,000 mg cap Take [...] JVD, carotids well felt, no bruits. CARDIAC: Omar palpable in the 5th intercostal space mid clavicular line, (more content not included)...[facility]02-28-2024 Miscellaneous Notes * Telephone Encounter - Noy Mary RN - 06/14/2023 10:03 AM EST error documented in this encounterAvita Health System [facility]02-28-2024 Miscellaneous Notes* Telephone Encounter - Noy Mary RN - 06/14/2023 9:44 AM EST Called Caden Wills and LVM to confirm surgery date of 07/[address] Alberto. Discussed pre op testing on 07/26 in [place], or he could make two trips. Asked him to confirm Asked patient to confirm receipt, and voice any questions or concerns. Number provided. Noy Mary RN documented in this encounterAvita Health System [facility]01-17-2024 NoteHNO ID: [id number] Author: JIAN ALBERTO MD Service: ? Author Type: Physician Type: Progress Notes Filed: 05/03/2023 14:28 Note Text: [facility] NEW PATIENT HISTORY AND PHYSICAL EXAM PATIENT INFO: Caden Wills 63 year old REFERRING M.D.: Antonia Bush MD [address] [place] [phone] This consult was requested by Dr. Bush for an opinion regarding buried penis and erectile dysfunction, and my final recommendations will be communicated to the requesting health care provider by way of the shared medical record for internal providers or letter via the [employer] for external providers. 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 , interested in future sexual life. MEDICATIONS: [...] excision of the sc (more content not included)...[facility]01-17-2024 NotePatient Outreach (UROCARMEN) CADEN WILLS ([id number]) 1960 M Date Time Provider Department 05/03/23 JIAN ALBERTO During your visit today, we recorded the following information about you: Allergies As of Date: 05/03/2023 (No Known Allergies) Date Reviewed: 05/03/2023 Reviewed by: Claudia Burt OCCA - Fully Assessed Visit Diagnosis:Screening for genitourinary condition [Z13.89] Order(s):URINALYSIS, REFLEX MICROSCOPIC [[id number]] Order #: [id number]. #:[id number] Prescriptions as of 05/08/2023 - metFORMIN ER [...] tablet by mouth every afternoon. - omega 9-suq-jiw-fish oil (FISH OIL) 100-160-1,000 mg cap Take 1,000 mg by mouth. - bumetanide (BUMEX ORAL) Take by mouth. Problem List As Of Date 05/03/2023 Noted Resolved Acquired buried penis [N48.83] 05/03/2023 Scarring of penis [N48.6] 05/03/2023 Erectile dysfunction associated with type 2 beverley*05/03/2023 Encounter Status:Closed by LUISA LEWISUSER on 05/08/23[facility] Evaluation note* Encounter Date Diagnosis Assessment Notes Treatment Notes Treatment Clinical Notes Apr, Subungual hematoma o f finger of right hand, initial encounter (ICD- 10 - S60.10XA) Patient instructed on washing with soap and applying ointment to help soften remaining callused area. Progress activity as tolerated [employer] Other 01-03-2024 Evaluation note* Encounter Date Diagnosis Assessment Notes Treatment Notes Treatment Clinical Notes Apr, ASHD (arteriosclerotic heart dis ease) (ICD-10 - I25.10) This patient is stable without activity related CP, dyspnea or lightheadedness. They are instructedto continue exercise and AHA diet plan. Continue secondary prevention measures. Apr,hronic HFrEF (heart failure with reduced ejection fraction) (ICD-10 - I50.22) Apr,Type 2 diabetes mellitus with hyperglycemia (ICD-10 - E11.65)This patient is following a comprehensive diabetic treatment [...] Microalbumin, Dilated eye exam and Foot exam Apr,Type 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 with diabetic polyneuropathy (ICD-10 - E11.42)Inspect feet daily for cuts and calluses.Recommend diabetic shoes and inserts to prevent callus formation.Fall precautions. Apr,rimary hypertension (ICD-10 - I10)This patient is instructed to consume a healthy, low-fat, low-salt diet. They are also encouraged to continue exercise to achieve/maintain a normal BMI. Apr,Hyperlipidemia type II (ICD-10 - E78.01)Instructed on diet and exercise with continued statin therapy.Discussed the beneficial effects of lo wering cholesterol in reducing the risk for cerebrovascular and cardiovascular disease. Recently added Zetia - LDL chol 100 w/ goal < 70 Apr,aroxysmal atrial fibrillation (ICD-10 - I48.0)This patient is in NSR or rate controlled. This patient is anticoagulated to prevent thromboembolic events. They are maintaining regular scheduled appts with their medical laboratory technicians. Post operative AF Amiodarone and Eliquis d/c and remains in NSR Apr,hronic venous insufficiency of lower extremity (ICD-10 - I87.2) Avoid salt and elevate lower extremities, support stockings, inspect legs and feet daily for blisters and ulcerations. Apr,Gastroesophageal reflux disease with esophagitis without hemorrhage (ICD-10 - K21.00)Avoid lying flat after eating. Avoid eating 2 hours prior to bedtime. Smaller, frequent meals may be better tolerated.Weight loss if overweight.PPI with any heartburn.Monitor for dysphagia. Apr,Erectile dysfunction due to arterial insufficiency (ICD-10 - N52.01) Dr. Bush offered injections. Referred to [facility] for evaluation and treatment [facility] Other 12-12-2023 Evaluation note* Encounter Date Diagnosis Assessment Notes Treatment Notes Treatment Clinical Notes Mar, Subungual hematoma o f finger of right hand, initial encounter (ICD- 10 - S60.10XA) Patient instructed on washing with soap and applying ointment to help soften scab area. [facility] Other 12-06-2023 Hospital Discharge instructions Patient Education [...] Follow these instructions at home: Medicines Take srqn-gid-croelnj and prescription medicines only as told by [...] provider. Document Revised: 06/30/2021 Document Reviewed: 06/30/2021 [employer] Patient Education 2022 [employer]. Follow Up Care 11/25/2022 08:22:24 With:ELEAZAR BARR, Antonia Sharma, URL Address: [address] [place], [place] [id number]- When: Unknown [facility] 11-22-2023 Evaluation note* Encounter Date Diagnosis Assessment Notes Treatment Notes Treatment Clinical Notes Feb, Type 2 diabetes mellitus with hy perglycemia (ICD-10 - E11.65) 1. Uncontrolled, a Type 2 diabetes with A1c of 7.2% 2. Blood glucose levels according to [employer] 2 cgm download 02/23/23-03/08/23: Avg glucose 183. [...] pattern, changes in treatment plan, with this timespent in counseling and coordination of care related to diabetes, risks, and benefits of treatment,medications, and side effects. TOPICS REVIEWED: 1. Time [...] or sores that do not appear to behealing. 4. Meter: Plan to check blood glucose: [...] provider. Refills should be requested at the timeof your visit. Feb,ietary counseling and surveillance (ICD-10 - Z71.3) see above Feb,HTN (hypertension) (ICD-10 - I10) On arb. 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 Reviewed importance of glucose/bp control to prevent further nephropathy Feb,MI 39.0-39.9,adult (ICD-10 - Z68.39) see above [employer] Other 11-08-2023 Evaluation note* Encounter Date Diagnosis Assessment Notes Treatment Notes Treatment Clinical Notes Feb, Subungual hematoma o f finger of right hand, initial encounter (ICD- 10 - S60.10XA) Patient instructed to continue with daily soaking. Keep covered while at work [employer] Other 10-06-2023 Evaluation note* Encounter Date Diagnosis Assessment Notes Treatment Notes Treatment Clinical Notes Jan, Crushing injury of r ight index finger, initial encounter (ICD-10 - S67.190A) Elevated and rest. XR for FB, abscess, fx Jan,bscess of finger of right hand (ICD-10 - L02.511)Warm soaks and elevate. Begin antibiotics. Jan,Type 2 diabetes mellitus with hyperglycemia (ICD-10 - E11.65) Increases risk of serious infection. [employer] Other 08-25-2023 Evaluation note* Encounter Date Diagnosis Assessment Notes Treatment Notes Treatment Clinical Notes Nov, Type 2 diabetes mellitus with hy perglycemia (ICD-10 - E11.65) [facility] Other 08-14-2023 Reason for visit NarrativeTKM - REFERRAL UROLOGY - NEED TO INFORM PATIENT 11/28/22[employer] Other 08-10-2023 Evaluation note* Encounter Date Diagnosis Assessment Notes Treatment Notes Treatment Clinical Notes Nov, Type 2 diabetes mellitus with hy perglycemia (ICD-10 - E11.65) 1. Controlled, a Type 2 diabetes with A1c of 6.6% 2. Blood glucose levels according to [employer] 2 cgm download 11/11/22-11/24/22: Avg glucose 172. [...] pattern, changes in treatment plan, with this timespent in counseling and coordination of care related to diabetes, risks, and benefits of treatment,medications, and side effects. TOPICS REVIEWED: 1. Time [...] or sores that do not appear to behealing. 4. Meter: Plan to check blood glucose: [...] provider. Refills should be requested at the timeof your visit. Nov,ietary counseling and surveillance (ICD-10 - Z71.3) see above Nov,HTN (hypertension) (ICD-10 - I10) On arb. 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 Reviewed importance of glucose/bp control to prevent further nephropathy Nov,MI 39.0-39.9,adult (ICD-10 - Z68.39) 5 pound weight loss from last visit, continue with weight loss efforts Nov,Erectile dysfunction (ICD-10 - N52.9) referral to urology [facility] Other 08-10-2023 Evaluation note* Encounter Date Diagnosis Assessment Notes Treatment Notes Treatment Clinical Notes Nov, Erectile dysfunction (ICD-10 - N 52.9) [employer] Other 07-03-2023 Evaluation note* Encounter Date Diagnosis Assessment Notes Treatment Notes Treatment Clinical Notes Oct, Wellness examination (ICD-10 - Z 00.00) Healthy diet and exercise. Reviewed age-appropriate preventive testing recommended. Oct,SHD (arteriosclerotic heart disease) (ICD-10 - I25.10)This patient is stable without activity related CP, dyspnea or lightheadedness. They are instructedto continue exercise and AHA diet plan. Oct,hronic HFrEF (heart failure with reduced ejection fraction) (ICD-10 - I50.22) Oct,aroxysmal atrial fibrillation (ICD-10 - I48.0)This patient is in NSR or rate controlled. This patient is anticoagulated to prevent thromboembolic events. They are maintaining regular scheduled appts with their medical laboratory technicians. No bleeding complications Oct,Type 2 diabetes mellitus with hyperglycemia (ICD-10 - E11.65)This patient is following a comprehensive diabetic treatment [...] Microalbumin, Dilated eye exam and Foot exam Oct,Type 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 with diabetic polyneuropathy (ICD-10 - E11.42)Inspect feet daily for cuts and calluses.Recommend diabetic shoes and inserts to prevent callus formation.Fall precautions. Oct,rimary hypertension (ICD-10 - I10)This patient is instructed to consume a healthy, low-fat, low-salt diet. They are also encouraged to continue exercise to achieve/maintain a normal BMI. Oct,Hyperlipidemia type II (ICD-10 - E78.01)Instructed on diet and exercise with continued statin therapy.Discussed the beneficial effects of lo wering cholesterol in reducing the risk for cerebrovascular and cardiovascular disease. Oct,hronic venous insufficiency of lower extremity (ICD-10 - I87.2) Avoid salt and elevate lower extremities, support stockings, inspect legs and feet daily for blisters and ulcerations. Oct,astroesophageal reflux disease with esophagitis without hemorrhage (ICD-10 - K21.00) Oct,Erectile dysfunction due to arterial insufficiency (ICD-10 - N52.01) Discussed etiology and treatment Multifactorial w/ age, medications and DM contributing Trial of Sildenafil - he is not taking any NTG at the present time - he is aware it may lower his BP monitor - he is to avoid use if results in low BP, CP or lightheadedness Oct,Screening PSA (prostate specific antigen) (ICD-10 - Z12.5)Yearly LADAN and PSA [facility] Other 05-08-2023 Evaluation note* Encounter Date Diagnosis Assessment Notes Treatment Notes Treatment Clinical Notes August, Type 2 diabetes mellitus with hy perglycemia (ICD-10 - E11.65) 1. Controlled, a Type 2 diabetes with A1c of 6.5% 2. Blood glucose levels according to [employer] 2 cgm download 08/09/22-08/22/22: Avg glucose 157. >250-0%, >180-26%, 70-180-74 %, <70-0%, <54-0%. CV 24%. Reviewed download with pt., conern withglucose dropping after breakfast- recommend reducing breakfast dose from 32 to 30 units. Readings above target from missed meal dose if eating out. Encouraged to prebolus 15 minutes ac for improved po stprandial glycemia. Reviewed with pt how to titrate basal/bolus insulin according to fasting am/meal to meal glucose pattern. Pt verbalizes understanding. Pt with history of pancreatitis eliminates using dpp4/glp1. 3. Patient is alert, oriented and receptive to making changes or counseling. Notes: Seen for an assessment of current glucose pattern, changes in treatment plan, with this timespent in counseling and coordination of care related to diabetes, risks, and benefits of treatment,medications, and side effects. TOPICS REVIEWED: 1. Time [...] or sores that do not appear to behealing. 4. Meter: Plan to check blood glucose: [...] provider. Refills should be requested at the timeof your visit. 22 August, ietary counseling and surveillance (ICD-10 - Z71.3) see above August,HTN (hypertension) (ICD-10 - I10) On arb. 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 Reviewed importance of glucose/bp control to prevent further nephropathy August,lister (nonthermal), left great toe, initial encounter (ICD-10 - S90.422A) Referral to Dr. Ontiveros apt 08/24/22 2:00 pm August,MI 39.0-39.9,adult (ICD-10 - Z68.39) 2 pound weight loss from last visit, continue with weight loss efforts [facility] Other 04-03-2023 Evaluation note* Encounter Date Diagnosis Assessment Notes Treatment Notes Treatment Clinical Notes Jul, ASHD (arteriosclerotic heart dis ease) (ICD-10 - I25.10) This patient is stable without activity related CP, dyspnea or lightheadedness. They are instructedto continue exercise and AHA diet plan. Instructed to continue exercise 2-3x weekly. After completiong CR plans on continuing at [facility] Jul,rimary hypertension (ICD-10 - I10)This patient is instructed to consume a healthy, low-fat, low-salt diet. They are also encouraged to continue exercise to achieve/maintain a normal BMI. Jul,astroesophageal reflux disease with esophagitis without hemorrhage (ICD-10 - K21.00)Diet instructions: Smaller portions, avoid eating and laying flat, avoid eating or drinking prior to bedtime. Weight loss. Famotidine as needed, if used frequently is to restart PPI and notify office Discussed EGD for recurrent symptoms Jul,S/P CABG (coronary artery bypass graft) (ICD-10 - Z95.1) [facility] Other 02-02-2023 Evaluation note* Encounter Date Diagnosis Assessment Notes Treatment Notes Treatment Clinical Notes May, Type 2 diabetes mellitus with hy perglycemia (ICD-10 - E11.65) 1. Controlled, a Type 2 diabetes with A1c of 6.9% 2. Blood glucose levels according to [employer] 2 cgm download 05/06/22-05/19/22: Avg glucose 189. >250-7%, >180-49%, 70-180-44 %, <70-0%, <54-0%. CV 20.6%. [...] eat many carbs while at work. He willsee medical laboratory technicians Monday to see if he will be going back to work. Pt with history of pancreatitis eliminates using dpp4/glp1. 3. Patient is alert, oriented and receptive to making changes or counseling. Notes: Seen for an assessment of current glucose pattern, changes in treatment plan, with this timespent in counseling and coordination of care related to diabetes, risks, and benefits of treatment,medications, and side effects. TOPICS REVIEWED: 1. Time [...] or sores that do not appear to behealing. 4. Meter: Plan to check blood glucose: [...] provider. Refills should be requested at the timeof your visit. May,ietary counseling and surveillance (ICD-10 - Z71.3) see above May,HTN (hypertension) (ICD-10 - I10) On arb. 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 Reviewed importance of glucose/bp control to prevent further nephropathy [facility] Other 01-18-2023 Evaluation note* Encounter Date Diagnosis Assessment Notes Treatment Notes Treatment Clinical Notes Apr, ASHD (arteriosclerotic heart dis ease) (ICD-10 - I25.10) This patient is stable without activity related CP, dyspnea or lightheadedness. They are instructedto continue exercise and AHA diet plan. Apr,HTN (hypertension) (ICD-10 - I10)This patient is instructed to consume a healthy, low-fat, low-salt diet. They are also encouraged to continue exercise to achieve/maintain a normal BMI. Apr,aroxysmal atrial fibrillation (ICD-10 - I48.0)This patient is in NSR. This patient is anticoagulated to prevent thromboembolic events. Recently completed 30 day event monitor w/ results pending. - may determine if requires lifelong AC Apr,Mixed hyperlipidemia (ICD-10 - E78.2)Diet and exercise with continued statin therapy. Apr,Type 2 diabetes mellitus with hyperglycemia (ICD-10 - E11.65)This patient is following a comprehensive diabetic treatment plan. They are checking their feet daily for calluses and nonhealing ulcers. They are being seen for yearly dilated eye examinations. Goals: SBP less than 130, LDL less than 100, FBS less than 140, AC and A1C less than 7%. They are checking their BS daily, will which are reviewed at the office visit. Apr,yspepsia (ICD-10 - R10.13)Diet instructions, avoiding NSAIDs due to AC and CKD. Initiate Pepcid at HS. No improvement, may warrant EGD to r/o H. Pylori [facility] Other 11-11-2022 NotePROCEDURE: XR FOOT RT MIN [...] acute bone abnormality. Electronically authenticated by: HEAVENLY Subramanian: 2022-02-25 06:39[facility]07-07-2022 Evaluation note* Encounter Date Diagnosis Assessment Notes Treatment Notes Treatment Clinical Notes Oct, Type 2 diabetes mellitus with hy perglycemia (ICD-10 - E11.65) 1. Uncontrolled, a Type 2 diabetes with A1c of 7.5% 2. Blood glucose levels above target. According to [employer] 2 cgm download 10/08/21- 10/21/21: Avg . >250- 13%, >180-48%, 70-180-39%, <70-0%, <54-0%. CV [...] pattern, changes in treatment plan, with this timespent in counseling and coordination of care related to diabetes, risks, and benefits of treatment,medications, and side effects. TOPICS REVIEWED: 1. Time [...] or sores that do not appear to behealing. 4. Meter: Plan to check blood glucose: [...] lyumjev x2 vials/syringes, shivani 2 x1 cgm. Oct,ietary counseling and surveillance (ICD-10 - Z71.3) see above Oct,HTN (hypertension) (ICD-10 - I10) On jonathan. Oct,Long term current use of insulin (ICD-10 - Z79.4) Oct,Mixed hyperlipidemia (ICD-10 - E78.2) 11/2020 LDL 97.6 Triglycerides 347, on fenofibrate, Recommend moderate intensity statin f/u with pcpfor further recommendation. Oct,MI 40.0-44.9, adult (ICD-10 - Z68.41) 4 pound weight loss from last visit, continue with weight loss efforts Oct,Vitamin B 12 deficiency (ICD-10 - E53.8) [facility] Other 04-27-2022 Evaluation note* Encounter Date Diagnosis Assessment Notes Treatment Notes Treatment Clinical Notes Jul, Dysuria (ICD-10 - R30.0) Jul,Urinary tract infection, site not specified (ICD-10 - N39.0)Drink plenty fluids, get plenty of rest. Take the ciprofloxacin as prescribed until gone. Follow-upwith your family physician when you complete the antibiotic, follow-up sooner if no improvement in your symptoms in 2 to 3 days. Jul,Hematuria, unspecified (ICD-10 - R31.9) [facility] Other 03-15-2022 Evaluation note* Encounter Date Diagnosis Assessment Notes Treatment Notes Treatment Clinical Notes Jun, Type 2 diabetes mellitus with hy perglycemia (ICD-10 - E11.65) 1. Uncontrolled, a Type 2 diabetes with A1c of 7.4% 2. Blood glucose levels above target. According to [employer] 2 cgm download 06/16/21- 06/29/21: Avg . >250- 1%, >180-38%, 70-180-61%, <70-0%, <54-0%. CV [...] urination is caused from lyumjev. Will modify basaldosing, see above. Pt verbalizes understanding. Pt with history of pancreatitis eliminates using dpp4/glp1. 3. Patient is alert, oriented and receptive to making changes or counseling. Notes: Seen for an assessment of current glucose pattern, changes in treatment plan, with this timespent in counseling and coordination of care related to diabetes, risks, and benefits of treatment,medications, and side effects. TOPICS REVIEWED: 1. Time [...] or sores that do not appear to behealing. 4. Meter: Plan to check blood glucose: Please check blood glucose levels 4 times/day. Back to back meals reveal effectiveness of bolus dosing. 5. [facility] Contact office if any issues or concerns with patterns of hypoglycemia, hyperglycemia, or diabetes medication issues. 6. Prescriptions: None needed. Jun,ietary counseling and surveillance (ICD-10 - Z71.3) see above Jun,HTN (hypertension) (ICD-10 - I10) On jonathan. Jun,Long term current use of insulin (ICD-10 - Z79.4) Jun,Mixed hyperlipidemia (ICD-10 - E78.2) 11/2020 LDL 97.6 Triglycerides 347, on fenofibrate, Recommend moderate intensity statin f/u with pcpfor further recommendation. Jun,MI 40.0-44.9, adult (ICD-10 - Z68.41) see above [facility] Other 01-18-2022 Evaluation note* Encounter Date Diagnosis Assessment Notes Treatment Notes Treatment Clinical Notes Apr, Type 2 diabetes mellitus with hy perglycemia (ICD-10 - E11.65) [facility] Other 12-08-2021 Evaluation note* Encounter Date Diagnosis Assessment Notes Treatment Notes Treatment Clinical Notes Mar, Type 2 diabetes mellitus with hy perglycemia (ICD-10 - E11.65) 1. Controlled, a Type 2 diabetes with A1c of 6.6% 2. Blood glucose levels improved from last visit. According to [employer] 2 cgm download 03/11/21-03/24/21: Avg glucose 162. >250- 1%, >180-29%, 70-180-70%, <70- 0%, <54-0%. CV 22.5%. Reviewed download with pt. readings above target from missed meal dose or late meal dose. Discussed with pt trial lyumjev which he could take 5 minutes before meal up to 20 minutes after meal. He is agreeable, r staniewed this would take place of [employer]. He verbalizes understanding. Pt with history of pancreatitis eliminates using dpp4/glp1. 3. Patient is alert, oriented and receptive to making changes or counseling. Notes: Seen for an assessment of current glucose pattern, changes in treatment plan, with this timespent in counseling and coordination of care related to diabetes, risks, and benefits of treatment,medications, and side effects. TOPICS REVIEWED: 1. Time [...] or sores that do not appear to behealing. 4. Meter: Plan to check blood glucose: [...] like to continue he is to notify officewill switch to u200 d/t large volume of bolus he takes. Also given sample toujoe max x2 pens. Sample shivani 2 cgm given today. Mar,ietary counseling and surveillance (ICD-10 - Z71.3) see above Mar,HTN (hypertension) (ICD-10 - I10) On jonathan. Mar,ong term current use of insulin (ICD-10 - Z79.4) Mar,Mixed hyperlipidemia (ICD-10 - E78.2) 11/2020 LDL 97.6 Triglycerides 347, on fenofibrate, Recommend moderate intensity statin. Mar,MI 40.0-44.9, adult (ICD-10 - Z68.41) see above [facility] Other 09-22-2021 Evaluation note* Encounter Date Diagnosis Assessment Notes Treatment Notes Treatment Clinical Notes Dec, Type 2 diabetes mellitus with hy perglycemia (ICD-10 - E11.65) Erwin came in today for evaluation of his Shivani report after returning to work and continuing to usethe device. Erwin is happy with the system and wants us to send a prescription to [facility] in [employer]. Erwin's BG has averaged 163 for the last 14 days, 69% in range, 27% high, 4% very high, and 0% low. Hehad a few moments of BG below 70 [...] at MidNight. No further changes. Valery JOSEPH, DRAPERY EXAMINER-C, BC-ADM [facility] Other Chief complaint+Reason for visit Narrative* Reason for Visit BMI 38.0-38.9,adult Dietary counseling and surveillance Mixed hyperlipidemia Vitamin B 12 deficiency [facility] Work Phone: Evaluation + Plan noteExecutive Urology of [facility] Evaluation noteNo InformationNortSuburban Community Hospital Ininal Other Evaluation noteNo assessment information available [facility] Work Phone: Evaluation note* Diagnosis Screening for genitourinary condition Screening for other and unspecified genitourinary condition documented [facility] this [facility]* Diagnosis Coronary artery disease involving yurok coronary artery of yurok heart, unspecified whether angina present- Primary History of non-ST elevation myocardial infarction (NSTEMI) Old myocardial infarction Hx of CABG Postsurgical aortocoronary bypass status Primary hypertension Unspecified essential hypertension Other hyperlipidemia documented in this [facility]* Diagnosis Onset Date Resolution Status BMI 39.0-39.9,adult acuteDietary counseling and surveillanceacuteMixed hyperlipidemiaacuteVitamin B 12 deficiencyacuteChronic HFrEF (heart failure with reduced ejection fraction) acuteHypertensionacuteIschemic cardiomyopathyacuteParoxysmal atrial fibrillation acuteType 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 with diabetic polyneuropathyacuteType 2 diabetes mellitus with hyperglycemiaacute [facility] Work Phone: Evaluation note* Diagnosis Pre-operative examination- Primary Preoperative examination, unspecified Primary hypertension Unspecified essential hypertension Hyperlipidemia, unspecified hyperlipidemia type 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 Chronic systolic CHF (congestive heart failure) (HCC) Chronic systolic heart failure Paroxysmal atrial fibrillation (HCC) Atrial fibrillation Gastroesophageal reflux disease, unspecified whether esophagitis present Type 2 diabetes mellitus with other specified complication, with long-term current use of insulin ([facility]) Class 2 obesity due to excess calories [...] mellitus, with long-term current use of insulin ([facility]) Stable on Insulin glargine 60 units daily, [...] note 06/19/23 notes the following, Echo 03/30/22 ([facility]) - Global LV systolic function is difficult to assess but appears preserved, estimated ejection fraction is 55 to 60%, unable to accurately evaluate wall motion abnormalities. * Assessment & Plan Note - Kevin Goldsmith APRN.CNP - 07/27/2023 2:29 PM EDT Associated Problem(s): 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 CAD, hx of CT s/p CABG x 5 in Dec 2021. [...] cardiac events (< 1% chance of , CT, CHF, malignant ventricular arrhythmias or high grade [...] BP today 114/66. documented in this encounter [facility]* Diagnosis Acquired buried penis- Primary Other specified disorder of penis documented in this [facility]* Diagnosis Acquired buried penis- Primary Other specified disorder of penis Scarring of penis Other specified disorder of penis documented in this [facility]* Diagnosis Screening for genitourinary condition Screening for other and unspecified genitourinary condition documented in this encounter [facility]Eval[facility] note* Diagnosis Onset Date Resolution Status Chronic HFrEF (heart failure with reduce d ejection fraction) acuteHypertensionacuteIschemic cardiomyopathyacuteMixed hyperlipidemiaacuteType 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 with diabetic polyneuropathyacuteType 2 diabetes mellitus with hyperglycemiaacuteScreening PSA (prostate specific antigen)noneactive Wellness examinationnon[facility] Work Phone: Evaluation note* Diagnosis Onset Date Resolution Status Chronic HFrEF (heart failure with reduce d ejection fraction) acuteHypertensionacuteIschemic cardiomyopathyacuteMixed hyperlipidemiaacuteType 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 with diabetic polyneuropathyacuteType 2 diabetes mellitus with hyperglycemiaacuteScreening PSA (prostate specific antigen)noneactive Wellness examinationnoneactiveBMI 39.0-39.9,adultacuteDietary counseling and surveillanceacuteMixed hyperlipidemiaacuteVitamin B 12 deficiencyacute [facility] Work Phone: Evaluation note* Diagnosis Onset Date Resolution Status BMI 38.0-38.9,adult acuteDietary counseling and surveillanceacuteMixed hyperlipidemiaacuteVitamin B 12 deficiencyacute [facility] Work Phone: Evaluation note* Diagnosis Onset Date Resolution Status Admit Date BMI 38.0-38.9,adult acuteMay 2024 4:01pmDietary counseling and surveillanceacuteMa2024 4:01pmMixed hyperlipidemiaacuteMay 2024 4:01pmVitamin B 12 deficiencyacute May 2024 4:01pmHTN (hypertension)deletedAugust 21, 2024 4:01pmType 2 diabetes mellitusdeletedMa2024 4:01pm [facility] Work Phone: Hisqfzd general Narrative - Reported* Type Description Date Medical History diabetes mellitus Medical HistoryhypertensionMedical HistorypancreatitisMedical HistoryHLPMedical HistoryR foot ulcerSurgical Historyheart stentSurgical HistoryRIGHT FOOT SECOND TOE AMPUTATED07/03Hospitalization Historysee aboveHospitalization HistoryGastric epvfwo28/2017 [facility] Other Hiskoty general Narrative - Reported* Type Description Date Medical History diabetes mellitus Medical HistoryhypertensionMedical HistorypancreatitisMedical HistoryHLPMedical HistoryR foot ulcerSurgical Historyheart stentSurgical HistoryRIGHT FOOT SECOND TOE AMPUTATED07/03Surgical History[address] [facility]12/31/2021 Hospitalization Historysee aboveHospitalization HistoryGastric rcurfw11/2017 [facility] Other History general Narrative - Reported* Type Description Date Medical History Heart failure with preserved eje ction fraction Medical HistoryAcute prostatitisMedical HistoryASHD (arteriosclerotic heart disease)Medical HistoryBalanitisMedical HistoryTransient atrial fibrillation Medical HistoryUnspecified open wound of unspecified toe(s) with damage to nail, subsequent encounterMedical HistoryType 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 with diabetic polyneuropathy, unspecified whether half-way insulin useMedical HistoryLong term current use of insulinMedical HistoryS/P CABG (coronary artery bypass graft)Medical HistoryMorbid obesityMedical HistoryChronic venous insufficiency of lower extremityMedical HistoryLumbosacral spondylosis with radiculopathy Medical HistoryCharcot's joint of left footMedical HistoryRight foot painMedical HistoryType 2 diabetes mellitus with hyperglycemiaMedical HistoryHyperlipidemia type IIMedical HistoryEssential hypertensionMedical HistoryCrushing injury of left foot, subsequent encounterMedical HistoryDepression screeningMedical HistoryType 2 diabetes mellitus with foot ulcerMedical HistoryFoot ulcer, left, with fat layer exposedMedical HistoryIschemic cardiomyopathyMedical History Dilated cardiomyopathyMedical HistoryTinea crurisMedical HistoryLisfranc dislocation, left, initial encounterMedical HistoryCharcot's joint arthropathy in type 2 diabetes mellitusMedical HistoryObesityMedical HistoryStrain of lumbar region, initial encounterMedical HistoryHammer toe of left footMedical History History of nephrolithiasisMedical HistoryHistory of pancreatitisSurgical History LAP [id number] HistoryRIGHT FOOT SECOND TOE AMPUTATED07/03 Surgical History[address] [facility], CABG.4-5 [facility]12/31/2021 Surgical HistoryLHC PTCA/STENT [id number] HistoryCOLONOSCOPYHospitalization Historysee aboveHospitalization HistoryGastric /2017Hospitalization HistoryUnGal[facility] Hospital-[facility]12/2021 [facility] Other Hospital course Narrative No data available for this section [facility] Progress note No data available for this section [facility] Reason for referral (narrative) Referred by: ELEAZAR BARR, Antonia Sharma [facility] Reeyup for referral (narrative)* Outpatient Procedure (Routine) - ClosedSpecialtyDiagnoses / ProceduresReferred By ContactReferred To ContactSUBURBAN COMM[facility] Diagnoses Coronary artery disease involving yurok coronary artery of yurok heart, unspecified whether angina present History of non-ST elevation myocardial infarction (NSTEMI) Hx of CABG Primary hypertension Other hyperlipidemia Procedures ECG COMPLETE ECG ROUTINE ECG W/LEAST 12 LDS W/I&R Ligia Colmenares MD [address] [place] [address] [facility] [address] [place] [address] Referral IDStatusReasonStart DateExpiration DateVisits RequestedVisits [id number] Auto-Generated Referral / [facility] WestReason for referral (narrative)No reason for referral information availableBarnesville Hospital Work Phone: Chief Complaint and Reason for Visit Chief Complaint e11.65 E11.65 Chief Complaint Dm e11.65 6 Month Follow Up 4-5 Weeks Chief Complaint 6 Month Follow Up 4-5 Weeks METER FMLA PaperworkReason for VisitBMI 39.0-39.9,adult Dietary counseling and surveillance Mixed hyperlipidemia [...] 6 month follow up 3 month follow upReason for VisitChronic HFrEF (heart failure with reduced ejection fraction) [...] 4 :26pm Dietary counseling and surveillance Octo maren 2023 4:26pm Mixed hyperlipidemia February 07, 2024 [...] 4 :00pm Dietary counseling and surveillance Jose evelio 2024 4:00pm Mixed hyperlipidemia May 15, 2024 4:00pm Vitamin B 12 deficiency May 15 4:00pm HTN (hypertension) May 15, 2024 4 :00pm Type 2 diabetes mellitus May 15, 2 025 4:00pm Chief Complaint Admit Date METER August 21, 2024 4:01pm Reason for Visit Admit Date BMI 38.0-38.9,adult August 21, 2024 4:01pm Dietary counseling and surveillance August 21, 2024 4:01pm Mixed hyperlipidemia August 21, 2024 4:01p m Vitamin B 12 deficiency August 21, 2024 4: 01pm HTN (hypertension) August 21, 2024 4:01pm Type 2 diabetes mellitus August 21, 2024 4 :01pm Chief Complaint Admit Date METER August 21, 2024 4:01pm 6 month f/u 10/14 lm to r/s October 23 3:43pm Reason for Visit Admit Date BMI 38.0-38.9,adult August 21, 2024 4:01pm Dietary counseling and surveillance August 21, 2024 4:01pm Mixed hyperlipidemia August 21, 2024 4:01p m Vitamin B 12 deficiency August 21, 2024 4: 01pm HTN (hypertension) August 21, 2024 4:01pm Type 2 diabetes mellitus August 21, 2024 4 :01pm Chronic HFrEF (heart failure with reduce d ejection fraction) October 23, 2024 3:43pm Hypertension October 23, 2024 3:43p m Ischemic cardiomyopathy October 23, 2024 3 :43pm Left leg pain October 23, 2024 3:43p m Mixed hyperlipidemia October 23, 2024 3:43 pm Obesity October 23, 2024 3:43p m Type 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 with diabetic p olyneuropathy October 23, 2024 3:43pm Type 2 diabetes mellitus with hyperglyce stephanie October 23, 2024 3:43pm Screening PSA (prostate specific antigen ) October 23, 2024 3:43pm Wellness examination October 23, 2024 3:43 pm Chief Complaint Admit Date 6 month f/u 10/14 lm to r/s October 23 3:43pm Reason for Visit Admit Date Chronic HFrEF (heart failure with reduce d ejection fraction) October 23, 2024 3:43pm Hypertension October 23, 2024 3:43p m Ischemic cardiomyopathy October 23, 2024 3 :43pm Left leg pain October 23, 2024 3:43p m Mixed hyperlipidemia October 23, 2024 3:43 pm Obesity October 23, 2024 3:43p m Type 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 with diabetic p olyneuropathy October 23, 2024 3:43pm Type 2 diabetes mellitus with hyperglyce stephanie October 23, 2024 3:43pm Screening PSA (prostate specific antigen ) October 23, 2024 3:43pm Wellness examination October 23, 2024 3:43 pm BMI 38.0-38.9,adult November 27, 2024 3: 59pm Dietary counseling and surveillance [facility] 2024 3:59pm Mixed hyperlipidemia November 27, 2024 3 :59pm Vitamin B 12 deficiency November 27 3:59pm HTN (hypertension) November 27, 2024 3: 59pm Type 2 diabetes mellitus November 27 3:59pm Chief Complaint Admit Date back pain/possible broken pelvis February 04, 2025 9:04am Reason for Visit Admit Date BMI 37.0-37.9, adult November 27, 2024 3 :59pm Dietary counseling and surveillance Novu 2024 3:59pm Mixed hyperlipidemia November 27, 2024 3 :59pm Vitamin B 12 deficiency November 27 3:59pm HTN (hypertension) November 27, 2024 3: 59pm Type 2 diabetes mellitus November 27 3:59pm Accidental fall February 04, 2025 9 :04am Low back pain February 04, 2025 9 :04am Pain in joint involving left pelvic stephan on and thigh February 04, 2025 9:04am Advance Directives Advance Directive Response Recorded Date/ [...] finger of right hand (L02.511) Referral Organization [facility] Referring Provider First Name Fahad Referring Provider Last Name Yola Referring Provider Specialty Internal Me dicine Referred Organization [facility] Referred Provider Yarelis Santacruz Referred Address [address] [place],[address] Referred Provider Specialty Orthopedic S urgery Referral [...] is being referred for possible I&D procedure. RamirolindseyKrista 01/23/2023 12:21:08 PM >received today, sent P2P Reason Erectile Dysfunction ; patient needs appt after 330pm. Diagnosis 1 Erectile dysfunction (N52.9) Referral Organization [facility] Referring Provider First Name Yamilex Referring Provider Last Name Bull Referring Provider Specialty Nurse Pract itioner Referred Organization Unknown Facility Referred Provider Antonia Bush Referred Provider Specialty Urology Referral Priority Routine Referral Appointment Date 2023-03-22 General Notes Tracie Alvarado 11/15 08:20:19 AM >Spoke to Poonam and patient scheduled for [place] office on 03/22/23 at 11am at [address] [place] [address] [address] in [employer] [facility]. Tracie Alvarado 11/28/2022 09:35:22 AM >Text message sent to patient requesting he call me for Referral details. Tracie Alvarado 11/28/2022 12:00:13 PM >Patient returns my call and is informed of appt. Reason Left great toe wound from new work boots - appt needs to be after 2pm Diagnosis 1 Type 2 diabetes david itus with hyperglycemia (E11.65) Referral Organization [facility] Referring Provider First Name Michellekrys Referring Provider Last Name Bull Referring Provider [...] Recorded Date/T naz father Unknown HypertensionUnknownHistory of strokeUnknownNot SpecifiedDeceasedUnknownDiabetes mellitusUnknown Relationship Condition Age at Onset Recorded Date/T naz father Unknown HypertensionUnknownHistory of strokeUnknownmotherDeceasedUnknownDiabetes mellitusUnknown Additional Source Comments REASON FOR VISIT (unrecogniz ed section and content) ReasonCommentsCare Coordinator - OtherReasonCommentsCardiac Clearance and new patientSpecialtyDiagnoses / ProceduresReferred By ContactReferred To Contact [facility] Diagnoses Coronary artery disease involving yurok coronary artery of yurok heart, unspecified whether angina present History of non-ST elevation myocardial infarction (NSTEMI) Hx of CABG Primary hypertension Other hyperlipidemia Procedures ECG COMPLETE ECG ROUTINE ECG W/LEAST 12 LDS W/I&R Ligia Colmenares MD [address] [place] [address] [facility] [address] [place] [address] Referral IDStatusReasonStart DateExpiration DateVisits RequestedVisits [id number] Auto-Generated Referral /[id number] VisitReasonCommentsPost-Op Visit Care Teams (unrecognized sec tion and content) Team Status: Active Member Role Status Dates Fahad Aceves DO Primary Care Provider Active Team Status: Active Member Role Status Dates Fahad Aceves DO Primary Care Provider Active Start: September 19, 2024 Outside ProviderAttending ProviderActiveStart: September 19, 2024 Team Status: Inactive Member Role Status Dates Fahad Aceves DO Primary Care Provider Active Start: October 23, 2024 End: October 23rodney Aceves DOAttending ProviderActiveStart: October 23, 2024 End: October 23, 2024 Team Status: Inactive Member Role Status Dates Fahad Aceves DO Primary Care Provider Active Start: November 27, 2024 End: November 27, 2024Thaddeus Orellana ProviderActiveStart: November 27, 2024 End: November 27, 2024 Team Status: Inactive Member Role Status Dates Fahad Aceves DO Primary Care Provider Active Start: August 21, 2024 End: August 21, 2024Thaddeus Orellana ProviderActiveStart: August 21, 2024 End: August 21, 2024 Team Status: Active Member Role Status Dates Fahad Aceves DO Primary Care Provider Active Start: July 13, 2024 Simba Kasper MDAttlatrice ProviderActiveStart: July 13, 2024 Team Status: Inactive Member Role Status Dates Fahad Aceves DO Primary Care Provider Active Start: February 07, 2024 End: February 07, 2024Tondra K Mapus , APRNAttending ProviderActiveStart: February 07, 2024 End: February 07, 2024 Team Status: Inactive Member Role Status Dates Fahad Aceves DO Primary Care Provide r, Attending Provider Active Start: April 23, 2024 End: April 23, 2024 Team Status: Active Member Role Status Dates Fahad Aceves DO Primary Care Provider Active Start: January 20, 2024 Brent Mayesending ProviderActiveStart: January 20, 2024 Team Status: Inactive Member Role Status Dates Fahad Aceves DO Primary Care Provide r, Attending Provider Active Start: October 18, 2023 End: October 18, 2023 Team Status: Inactive Member Role Status Dates Fahad Aceves DO Primary Care Provider Active Start: November 01, 2023 End: November 01, 2023Tondra K Mapus , APRNAttending ProviderActiveStart: November 01, 2023 End: November 01, 2023 Team Status: Active Member Role Status Dates Fahad Aceves DO Primary Care Provide r, Attending Provider Active Start: July 27, 2023 Team Status: Inactive Member Role Status Dates Tondra Nba Foster , CARPENTER [employer]OLD Attending Provider Active Start: March 08, 2023 End: March 08, 2023 Team Status: Inactive Member Role Status Dates Fahad Aceves DO Primary Care Provider Active Start: March 08, 2023 End: March 08, 2023Tondra K Mapus , APRNAttending ProviderActiveStart: March 08, 2023 End: March 08, 2023 [...] Care Provider Active Tondra K Mapus , APRNAttending ProviderActive Team Status: Active Member Role Status Dates Fahad Aceves DO Primary Care Provider Active Tondra K Mapus , APRNAttending ProviderActiveTeam MemberRelationshipSpecialty Start DateEnd Date Antonia Bush [address] [place] [address] XjozvzldpTqmttxn79/9/23Team MemberRelationshipSpecialtyStart DateEnd Date EleazarAntonia Zachary [address] [place] [address] GpapztfkpLmwhurr72/9/23Team MemberRelationshipSpecialtyStart DateEnd Date EleazarMitchelAntonia P [address] [place] [address] HvseezkexSeyackp69/9/23 Team Status: Active Member Role Status Dates Fahad Aceves DO Primary Care Provider Active Start: June 19, 2023 Thaddeus Orellana ProviderActiveStart: June 19, 2023 Team Status: Inactive Member Role Status Dates Fahad Aceves DO Primary Care Provider Active Start: June 21, 2023 End: June 21, 2023Tondra Nba Foster APRNAttentammi ProviderActiveStart: June 21, 2023 End: June 21, 2023 Team Status: Inactive Member Role Status Dates Fahad Aceves DO Primary Care Provide r, Attending Provider Active Start: July 11, 2023 End: July 11, 2023Team MemberRelationshipSpecialtyStart DateEnd Date Fahad Aceves DO [address] [place] [address] PCP - GeneralInternal Medicine07/18/23 Antonia Bush [address] [place] [address] ZdomheiahVxximrs19/9/23Team MemberRelationshipSpecialtyStart DateEnd Date Fahad Aceves DO [address] [place] [address] PCP - GeneralInternal [facility]07/18/23 Antonia Bush MD [address] [place] [address] MhayajelwSporguz13/9/23Te MemberRelationshipSpecialtyStart DateEnd Date Fahad Aceves, DO [address] [place] [address] PCP - [facility]07/18/23 Antonia Bush MD [address] [place] [address] KsjrgutylSkkokkn99/9/23Te MemberRelationshipSpecialtyStart DateEnd Date Fahad Aceves, DO [address] [place] [address] PCP - [facility]07/18/23 Antonia Bush MD [address] [place] [address] WsvhmuijaJyprnew40/9/23Te MemberRelationshipSpecialtyStart DateEnd Date Fahad Aceves, DO [address] [place] [address] PCP - [facility]07/18/23 Antonia Bush MD [address] [place] [address] AjthrrbnvCqminhu12/9/23Te MemberRelationshipSpecialtyStart DateEnd Date Fahad Aceves, DO [address] [place] [address] PCP - GeneralInternal Medicine07/18/23 Antonia Bush MD [address] [address] LdfsiqpgzHoovzjk61/9/23 Team Status: Inactive Member Role Status Dates Fahad Aceves DO Primary Care Provider Active Start: May 15, 2024 End: May 15, 2024Thaddeus Orellana ProviderActiveStart: May 15, 2024 End: May 15, 2024 Team Status: Active Member Role/Relationship Status Dates Fahad Aceves DO Primary Care Provider Active Team Status: Inactive Member Role/Relationship Status Dates Fahad Aceves DO Primary Care Provider Active Start: November 27, 2024 End: November 27, 2024Yamilex Foster APRNAtdoris ProviderActiveStart: November 27, 2024 End: November 27, 2024 Team Status: Inactive Member Role/Relationship Status Dates Fahad Aceves DO Primary Care Provider Active Start: February 04, 2025 End: February 04enjorge Aceves DOAttending ProviderActiveStart: February 04, 2025 End: February 04, 2025 Goals (unrecognized section and content) Goals may be documented in a n alternate section (unrecognized sect ion and content) No Status Records FoundNo Status Records FoundNo Status Records FoundNo Status Records FoundNo Status Records Found INFORMATION SOURCE (unrecogn ized section and content) DATE CREATED AUTHOR 08/31/2022 [facility] DATE CREATED AUTHOR AUTHOR'S ORGANIZ ATION 06/01/2023 [facility] DATE CREATED AUTHOR AUTHOR'S ORGANIZ ATION 09/19/2023 [facility] DATE CREATED AUTHOR AUTHOR'S ORGANIZ ATION 01/16/2024 [facility] DATE CREATED AUTHOR AUTHOR'S ORGANIZ ATION 07/13/2024 [facility] Source Comments (unrecognize d section and content) In the event this informatio n is protected by the Federal Confidentiality of Alcohol and Drug Abuse Patient Records regulations: The Federal rules restrict any use of the information to criminally investigate or prosecute any alcohol or drug abuse patient.[facility] Hospital[facility] the event this information is protected by the Federal Confidentiality of Alcohol and Drug Abuse Patient Records regulations: The Federal rules restrict any use of the information to criminally investigate or prosecute any alcohol or drug abuse patient.[facility] HospitalIn the event this information is protected by the Federal Confidentiality of Alcohol and Drug Abuse Patient Records regulations: The Federal rules restrict any use of the information to criminally investigate or prosecute any alcohol or drug abuse patient.[facility] HospitalIn the event this information is protected by the Federal Confidentiality of Alcohol and Drug Abuse Patient Records regulations: The Federal rules restrict any use of the information to criminally investigate or prosecute any alcohol or drug abuse patient.[facility] HospitalIn the event this information is protected by the Federal Confidentiality of Alcohol and Drug Abuse Patient Records regulations: The Federal rules restrict any use of the information to criminally investigate or prosecute any alcohol or drug abuse patient.[facility] HospitalIn the event this information is protected by the Federal Confidentiality of Alcohol and Drug Abuse Patient Records regulations: The Federal rules restrict any use of the information to criminally investigate or prosecute any alcohol or drug abuse patient.[facility] HospitalIn the event this information is protected by the Federal Confidentiality of Alcohol and Drug Abuse Patient Records regulations: The Federal rules restrict any use of the information to criminally investigate or prosecute any alcohol or drug abuse patient.[facility] HospitalIn the event this information is protected by the Federal Confidentiality of Alcohol and Drug Abuse Patient Records regulations: The Federal rules restrict any use of the information to criminally investigate or prosecute any alcohol or drug abuse patient.[facility] HospitalIn the event this information is protected by the Federal Confidentiality of Alcohol and Drug Abuse Patient Records regulations: The Federal rules restrict any use of the information to criminally investigate or prosecute any alcohol or drug abuse patient.[facility] HospitalIn the event this information is protected by the Federal Confidentiality of Alcohol and Drug Abuse Patient Records regulations: The Federal rules restrict any use of the information to criminally investigate or prosecute any alcohol or drug abuse patient.[facility] HospitalIn the event this information is protected by the Federal Confidentiality of Alcohol and Drug Abuse Patient Records regulations: The Federal rules restrict any use of the information to criminally investigate or prosecute any alcohol or drug abuse patient.[facility] FOR RECORDS PERTAINING TO PATIENTS WHO [...] BE BASED ON THE PRIMARY CLINICAL RECORDS. [facility] [employer] [facility]. provides no warranty or guarantee of the accuracy or completeness of information in this document.
== END 2025-02-04 09:56 | disposition home or self-care (01) ==
LOC: RAD 09:55
PROVIDERS: PCP Internal Medicine; Visit Provider Internal Medicine
DX: M25.552 Pain in left hip (principal); M54.50 Low back pain, unspecified; W19.XXXA Unspecified fall, initial encounter; M16.12 Unilateral primary osteoarthritis, left hip; M51.369 Other intervertebral disc degeneration, lumbar region without mention of lumbar back pain or lower extremity pain
CPT/HCPCS: 72100; 73502

== ENCOUNTER 2025-03-04 08:59 | Outpatient (OUT) | payer OTHER, SELFPAY ==
--- NOTE | 2025-03-04 09:04 | ECG_ITS ---
[facility] Test Date: 2025-03-04 Pat Name: CADEN WILLS Department: Room: - Gender: Male Barmaid: : [id number] Requested By: [id number] Order Number: [id number] Reading MD: SIMBA CURRAN M.D. Measurements Intervals [place] Rate: 68 P: 2 NC: 173 QRS: -2 QRSD: 100 T: 73 QT: 413 QTc: 440 Interpretive Statements SINUS RHYTHM POSSIBLE ANTERIOR MYOCARDIAL INFARCTION [30 ms Q WAVE IN V3/V4, OR R < 0.2 mV IN V4], OF INDETERMINATE AGE Abnormal ECG Compared to ECG 12/31/2021 13:19:57 Myocardial infarct finding now present Sinus tachycardia no longer present ST (T wave) deviation no longer present Possible ischemia no longer present Electronically Signed On 03-04-2025 21:33:08 EST by SIMBA CURRAN M.D.
--- OUTSIDE RECORDS SUMMARY | 2025-03-04 09:20 | XMS_ITS | CCD ---
Author Organization [facility] Care Team Providers Care Sponge Fisherman Name Role Phone Yamilex Foster Unavailable Celestina [...] Santacruz Unavailable YAMILEX FOSTER Primary Care Physician [phone] Antonia Bush Unavailable DO Fahad Aceves Primary Care Provider MapusJAKE Attending Provider Yamilex Foster Attending Unavailable Yamilex [...] Unavailable Ball Fahad ROMERO Primary Care Provider Mapus DISPLAY MECHANICYamilex Ponce Attending Provider [phone] Provider, Outside Attending Provider Unavailable Fahad Aceves DO Attending Provider Fahad Aceves DO Primary Care Provider Yamilex Foster APRN Attending Provider [phone] Fahad Aceves DO Primary Care Provider Fahad Aceves DO Attending Provider MarleneRashel nye DO Attending Provider [phone] Allergies Allergy ClassificationReported Allergen(s)Allergy TypeDate of OnsetReaction(s) Facility (20 sources)empagliflozinDrug Bpnsjhe02-97-2619eifUkkgphdptGalion Hospital (20 sources)icosapent ethylDrug Xdgoixr78-16-8697s/[facility] (1 source)empagliflozinDrug Tdqlgpj69-29-4528DbioesxavTrinity Health [facility] (1 source)icosapent ethylDrug Hjcfgzn33-81-7451DmfvcerdeTrinity Health System [facility] Medications Current Medications MedicationDrug Class(es)DatesSig (Normalized)Sig (Original)acetaminophen 325 mg oral tablet (11 sources)Start: 06-50-1957ymsn 2 tablets by mouth every six hours as needed acetaminophen (TYLENOL) 325 mg tablet Take 650 mg by mouth every 6 hours as needed. 01/15/2022 ActiveComment on above:Take 650 mg by mouth every 6 hours as needed.amiodarone hydrochloride 200 mg oral tablet (20 sources)AntiarrhythmicStart: 54-69-8077hqhh 1 tablet by mouth once daily Amiodarone 200 mg tablet Active 0 .ROUTE .COMPLEX 90 3 June 13, 2024 8:37am TAKE 1 TABLET BY MOUTH EVERY DAY Complies with drug therapyStart: 02-07-2024 End: 70-99-0414gvri 1 tablet by mouth once dailyAmiodarone 200 mg tablet Discontinued 200 MG PO Daily February 07, 2024 12:00am June 13, 2024 8:37amStart: 14-15-5820crxv 1 tablet by mouth once dailyamiodarone (PACERONE) 200 mg tablet Take 1 tablet by mouth once daily. 06/21/2023 ActiveStart: 03-24-2023 End: 53-86-3069smjl 1 tablet by mouth onceamiodarone (PACERONE) 200 mg tablet Take 1 tablet by mouth every afternoon. 0 03/24/2023 06/19/2023iscontinued Comment on above:Take 1 tablet by mouth every afternoon.Take 1 tablet by mouth once daily.amoxicillin 875 mg / clavulanate 125 mg oral tablet (2 sources)Penicillin-class AntibacterialStart: 83-00-6196jbfq 1 tablet by mouth every twelve hoursAmoxicillin-Pot Clavulanate 875-125 MG 1 tablet Orally every 12 hrs for 7 days Jan, Activeapixaban 5 mg oral tablet (16 sources)Factor Xa Inhibitortake 1 tablet by mouth every twelve hoursEliquis 5 MG 1 tablet Orally Twice a day Activeaspirin 81 mg delayed release oral tablet (20 sources)Platelet Aggregation Inhibitor, Nonsteroidal Anti-inflammatory Drug Start: 28-05-5330Yfllaoi (Lucio Low Dose Aspirin) 81 mg Tablet,Delayed [...] tablet (20 sources)HMG-CoA Reductase InhibitorStart: 12-18-2023 End: 47-43-4563qhiu 1 tablet by mouth once daily in the eveningAtorvastatin 80 mg tablet Active 0 .ROUTE .COMPLEX 90 3 December 11, 2024 7:40am TAKE 1 TABLET BY MOUTH EVERY DAY IN THE EVENING Complies with drug therapyStart: 03-22-2023 End: 77-22-2375smhc 1 tablet by mouth once dailyAtorvastatin 80 mg tablet Discontinued 80 MG PO Daily June 21, 2023 1:00am December 18, 2023 8:42am Comment on above:Take 80 mg by mouth every evening.Blood-Glucose Sensor (Freestyle Shivani 2 Plus Sensor) device (3 sources)Start: 22-17-3342Gvzds-Glucose Sensor (Freestyle Shivani 2 Plus Sensor) device Active 0 .Route 6 3 November 01, 2024 12:00am Type 2 diabetes mellitus with hyperglycemia Type 2 diabetes mellitus with hyperglycemia 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 0 07/27/2023 Discontinued (Discontinued by Patient)bumetanide (BUMEX ORAL) Take by mouth. 0 Activetake 1 tablet by mouth once dailyBumex 1 MG 1 tablet Orally Once a day ActiveComment on above:Take by mouth.cephalexin 500 mg oral capsule (1 source)Cephalosporin AntibacterialStart: 07-29-2023 End: 88-11-7362jrit 1 capsule by mouth twice dailycephALEXin (KEFLEX) 500 mg capsule Take 1 capsule by mouth two times a day. 60 capsule 0 07/29/2023 08/28/2023 ActiveComment on above:Take 1 capsule by mouth two times a day. cinnamon bark 500 mg oral capsule (13 sources)Start: 96-73-7386rjvf 1 capsule by mouth twice dailyCinnamon Bark (Cinnamon) 500 mg Capsule Active 500 MG PO Twice daily June 26, 2018 12:00am DM Complies with drug therapyclopidogrel 75 mg oral tablet (20 sources)P2Y12 Platelet InhibitorStart: 43-59-6307vtiw 1 tablet by mouth once dailyClopidogrel 75 mg tablet Active 75 MG PO Daily May 15, 2024 1:00am Complies with drug therapyStart: 06-26-2018 End: 50-26-2403Zykqguvigdk 75 mg tablet Discontinued 75 MG PO 1200 June 26, 2018 12:00am June 21, 2023 5:28pmdocusate sodium 100 mg oral capsule (1 source)Start: 07-29-2023 End: 09-20-2496ylxz 1 capsule by mouth twice dailydocusate sodium (COLACE) 100 mg capsule Take 1 capsule by mouth two times a day. 60 capsule 0 07/29/2023 08/28/2023 ActiveComment on above:Take 1 capsule by mouth two times a day. ezetimibe 10 mg oral tablet (20 sources)Dietary Cholesterol Absorption InhibitorStart: 69-96-2660yiyo 1 tablet by mouth once dailyEzetimibe 10 mg tablet Active 10 MG PO Daily June 21, 2023 1:00am Complies with drug therapyStart: 25-75-0030lmre 1 tablet by mouth every twenty-four hoursEzetimibe 10 MG 1 tablet Orally Once a day for 30 days Apr, ActiveComment on above:Take 10 mg by mouth every morning. famotidine 40 mg oral tablet (20 sources)Histamine-2 Receptor AntagonistStart: 49-16-6788qfgo 1 tablet by mouth once daily at bedtimeFamotidine 40 mg tablet Active 40 MG PO Daily at bedtime June 21, 2023 1:00am Complies with drug therapyStart: 62-83-9808szfy 1 tablet by mouth every twenty-four hoursFamotidine 40 MG 1 tablet at bedtime Orally Once a day Apr, ActiveFish Oils (19 sources)Fish Oil ActiveFreeStyle Shivani 2 Sensor - (20 sources)Start: 20-86-0270UdkhIckpw Shivani 2 Sensor - as directed In Vitro Change Every 14 days for 84 days Dec, ActiveFreeStyle Shivani 2 Sensor - CHANGE EVERY 14 DAYS for 84 Activegabapentin 100 mg oral capsule (20 sources)Anti-epileptic AgentStart: 94-23-8232vdqf 2 capsules by mouth once dailyGabapentin 100 mg capsule Active 200 MG PO Daily 60 13 09July 10, 2024 12:18pm Complies with drug therapyStart: 06-17-2024 End: 31-67-2004pnyz 1 capsule by mouth at bedtimeGabapentin 100 mg capsule Discontinued 0 .ROUTE .COMPLEX 30 June 17, 2024 8:44am July 10, 2024 12:19pm TAKE 1 CAPSULE BY MOUTH AT BEDTIMEStart: 04-23-2024 End: 88-70-3216onre 1 capsule by mouth once daily at bedtimeGabapentin 100 mg capsule Discontinued 100 MG PO Daily at bedtime 30 30 0 April 23, 2024 5:24pm June 17, 2024 8:44amInsulin Glargine U-300 Conc (8 sources)Start: 08-23-6931tssszr 70 [IU] by subcutaneous injection once daily at bedtimeInsulin Glargine U-300 Conc Active 70 UNIT SUBCUT Daily at bedtime February 07, 2024 5:11pmStart: 02-07-2024 End: 54-62-8850xfdyyv 70 [IU] by subcutaneous injection once daily at bedtime Insulin Glargine U-300 Conc Discontinued 70 UNIT SUBCUT Daily at bedtime February 07, 2024 4:39pm February 07, 2024 5:15pmStart: 11-01-2023 End: 51-99-1077gnbkeh 74 [IU] by subcutaneous injection once daily at bedtime Insulin Glargine U-300 Conc Discontinued 74 UNIT SUBCUT Daily at bedtime November 01, 2023 5:07pm February 07, 2024 4:43pmStart: 95-65-0818ctanzy 74 [IU] by subcutaneous injection once daily at bedtimeInsulin Glargine U-300 Conc Active 74 UNIT SUBCUT Daily at bedtime November 01, 2023 5:07pmStart: 06-21-2023 End: 15-14-1647vjncar 72 [IU] by subcutaneous injection once daily at bedtime Insulin Glargine U-300 Conc Discontinued 72 UNIT SUBCUT Daily at bedtime June 21, 2023 5:18pm November 01, 2023 5:07pmStart: 87-17-7206zgfdse 72 [IU] by subcutaneous injection once daily at bedtimeInsulin Glargine U-300 Conc Active 72 UNIT SUBCUT Daily at bedtime June 21, 2023 5:18pmInsulin Glargine U-300 Conc 300 unit/mL (1.5 mL) insulin pen (15 sources)Start: 31-55-5414Dudcslh Glargine U-300 Conc 300 unit/mL (1.5 mL) insulin pen Active 70 UNIT SUBCUT Daily at [id number] March 19, 2024 1:35pm Start: 69-94-8371Zzmrcag Glargine U-300 Conc 300 unit/mL (1.5 mL) insulin pen Active 70 UNIT SUBCUT Daily at [email or web address] March 19, 2024 12:35pmStart: 02-07-2024 End: 54-21-9360Tatrfkm Glargine U-300 Conc 300 unit/mL (1.5 mL) insulin pen Discontinued 70 UNIT SUBCUT Daily at bedtime February 07, 2024 5:11pm March 19, 2024 1:35pmStart: 02-07-2024 End: 16-95-4709Irmeesb Glargine U-300 Conc 300 unit/mL (1.5 mL) insulin pen Discontinued 70 UNIT SUBCUT Daily at bedtime February 07, 2024 4:11pm March 19, 2024 12:35pmStart: 02-07-2024 End: 59-74-6041Fptwapn Glargine U-300 Conc 300 unit/mL (1.5 mL) insulin pen Discontinued 70 UNIT SUBCUT Daily at bedtime February 07, 2024 4:39pm February 07, 2024 5:15pmStart: 02-07-2024 End: 87-12-1225Vwlnysq Glargine U-300 Conc 300 unit/mL (1.5 mL) insulin pen Discontinued 70 UNIT SUBCUT Daily at bedtime February 07, 2024 3:39pm February 07, 2024 4:15pmStart: 11-01-2023 End: 93-29-3608Nfkawwk Glargine U-300 Conc 300 unit/mL (1.5 mL) insulin pen Discontinued 74 UNIT SUBCUT Daily at bedtime November 01, 2023 5:07pm February 07, 2024 4:43pmStart: 11-01-2023 End: 24-36-4813Campgec Glargine U-300 Conc 300 unit/mL (1.5 mL) insulin pen Discontinued 74 UNIT SUBCUT Daily at bedtime November 01, 2023 4:07pm February 07, 2024 3:43pmStart: 06-21-2023 End: 74-37-3670Qyapcfs Glargine U-300 Conc 300 unit/mL (1.5 mL) insulin pen Discontinued 72 UNIT SUBCUT Daily at bedtime June 21, 2023 5:18pm November 01, 2023 5:07pmStart: 06-21-2023 End: 64-92-0691Ugnznyo Glargine U-300 Conc 300 unit/mL (1.5 mL) insulin pen Discontinued 72 UNIT SUBCUT Daily at bedtime June 21, 2023 4:18pm November 01, 2023 4:07pmInsulin Lispro-Aabc (6 sources)Start: 67-97-8969Unwanbs Lispro-Aabc Active 0 SUBCUT .COMPLEX 54 February 07, 2024 5:12pm USE 36 UNITS BEFORE BREAKFAST/lunch, 38 BEFORE SUPPER PLUS ISS 1:10 BEFORE MEALS (AT BEDTIME IF >200 HALF DOSE) *UP TO 120UNITS PER DAY* SubcutaneousStart: 02-07-2024 End: 56-51-8580Brfblig Lispro-Aabc Discontinued 0 SUBCUT .COMPLEX February 07, 2024 4:40pm February 07, 2024 5:15pm USE 36 UNITS BEFORE BREAKFAST, 38 BEFORE SUPPER PLUS ISS 1:10 BEFORE MEALS (AT BEDTIME IF >200 HALF DOSE) *UP TO 100 UNITS PER DAY* Subcutaneous (expect up to 100 units/day)Start: 06-21-2023 End: 81-47-6697Vdjbwmf Lispro-Aabc Discontinued 0 SUBCUT .COMPLEX June 21, 2023 1:00am February 07, 2024 4:43pmUSE 32 UNITS BEFORE BREAKFAST, 38 BEFORE SUPPER PLUS ISS 1:10 BEFORE MEALS (AT BEDTIME IF >200 HALF DOSE) *UP TO 100 UNITS PER DAY* Subcutaneous (expect up to 100 units/day)Start: 62-41-7495Fmkgtve Lispro-Aabc Active 0 SUBCUT .COMPLEX June 21, 2023 1:00am USE 32 UNITS BEFORE BREAKFAST, 38 BEFORE SUPPER PLUS ISS 1:10 BEFORE MEALS (AT BEDTIME IF >200 HALF DOSE) *UP TO 100 UNITS PER DAY* Subcutaneous (expect up to 100 units/day) Insulin Lispro-Aabc 200 unit/mL (3 mL) insulin pen (9 sources)Start: 67-27-4812Kqbldon Lispro-Aabc 200 unit/mL (3 mL) insulin pen Active 0 SUBCUT .COMPLEX 54 February 07, 2024 5:12pm USE 36 UNITS BEFORE BREAKFAST/lunch, 38 BEFORE SUPPER PLUS ISS 1:10 BEFORE MEALS (AT BEDTIME IF >200 HALF DOSE) *UP TO 120 UNITS PER DAY* SubcutaneousStart: 64-21-2836Bwjwffw Lispro-Aabc 200 unit/mL (3 mL) insulin pen Active 0 SUBCUT .COMPLEX 54 February 07, 2024 4:12pm USE 36 UNITS BEFORE BREAKFAST/lunch, 38 BEFORE SUPPER PLUS ISS 1:10 BEFORE MEALS (AT BEDTIME IF >200 HALF DOSE) *UP TO 120 UNITS PER DAY* SubcutaneousStart: 02-07-2024 End: 72-23-6751Kxmyqga Lispro-Aabc 200 unit/mL (3 mL) insulin pen Discontinued 0 SUBCUT .COMPLEX February 07, 2024 4:40pm February 07, 2024 5:15pm USE 36 UNITS BEFORE BREAKFAST, 38 BEFORE SUPPER PLUS ISS 1:10 BEFORE MEALS (AT BEDTIME IF >200 HALF DOSE) *UP TO 100 UNITS PER DAY* Subcutaneous (expect up to 100 units/day)Start: 02-07-2024 End: 51-48-5107Qsvbbgw Lispro-Aabc 200 unit/mL (3 mL) insulin pen Discontinued 0 SUBCUT .COMPLEX February 07, 2024 3:40pm February 07, 2024 4:15pm USE 36 UNITS BEFORE BREAKFAST, 38 BEFORE SUPPER PLUS ISS 1:10 BEFORE MEALS (AT BEDTIME IF >200 HALF DOSE) *UP TO 100 UNITS PER DAY* Subcutaneous (expect up to 100 units/day)Start: 06-21-2023 End: 24-10-9322Nykfryx Lispro-Aabc 200 unit/mL (3 mL) insulin pen Discontinued 0 SUBCUT .COMPLEX June 21, 2023 1:00am February 07, 2024 4:43pm USE 32 UNITS BEFORE BREAKFAST, 38 BEFORE SUPPER PLUS ISS 1:10 BEFOREMEALS (AT BEDTIME IF >200 HALF DOSE) *UP TO 100 UNITS PER DAY* Subcutaneous (expect up to 100 units/day) Start: 06-21-2023 End: 78-20-2421Icnnnvp Lispro-Aabc 200 unit/mL (3 mL) insulin pen [...] oxide 400 mg oral tablet (20 sources)Start: 97-28-2224ifum 1 tablet by mouth once dailyMagnesium Oxide 400 mg (241.3 mg magnesium) tablet Active 400 MG PO Daily June 21, 2023 1:00am Complies with drug therapytake 1 tablet by mouth every twenty-four hours Magnesium Oxide 400 MG 1 tablet as needed Orally Once a day Rpvklj56 hr metoprolol succinate 100 mg extended release oral tablet (20 sources)beta-Adrenergic BlockerStart: 58-75-1369imnd 1 tablet by mouth twice dailyMetoprolol Succinate [...] 1 TABLET AT BEDTIMEMultivitamin preparation (6 sources)Start: 53-98-9948gtza 1 tablet by mouth once dailyMultivitamin Active 1 TAB PO Daily June 25, 2018 11:00pmStart: 56-48-7630voht 1 tablet by mouth once dailyMultivitamin Active 1 TAB PO Daily June 26, 2018 12:00am Multivitamin Tablet (7 sources)Start: 21-85-0137ynbj 1 tablet by mouth once dailyMultivitamin Tablet Active 1 TAB PO Daily June 26, 2018 12:00am Complies with drug therapyStart: 44-51-6619yxjz 1 tablet by mouth once dailyMultivitamin Tablet Active 1 TAB PO Daily June 26, 2018 12:00amStart: 19-68-8775pnrc 1 tablet by mouth once daily Multivitamin Tablet Active 1 TAB PO Daily June 25, 2018 11:00pmniacin 500 mg oral tablet (13 sources)Nicotinic AcidStart: 84-96-4015wifr 1 tablet by mouth once daily at bedtimeNiacin 500 mg Tablet Active 500 MG PO Daily at bedtime June 26, 2018 12:00am Complies with drug therapyomega 2-jeg-zrt-fish oil (FISH OIL) 100-160-1,000 mg cap (11 sources)omega 6-tcy-egm-fish oil (FISH OIL) 100-160-1,000 mg cap Take 1,000 mg by mouth. Activeomega 2-pcq-nhe-fish oil (FISH OIL) 100-160-1,000 mg cap Take 1,000 mg by mouth. 0 ActiveComment on above:Take 1,000 mg by mouth.pantoprazole 40 mg delayed release oral tablet (20 sources)Proton Pump InhibitorStart: 08-25-2023 End: 95-83-7162wsir 1 tablet by mouth once daily at breakfastPantoprazole 40 mg tablet,delayed release (DR/EC) Active 0 .ROUTE .COMPLEX 90 3 August 19, 2024 7:45am TAKE 1 TABLET BY MOUTH ONCE A DAY ON EMPTY STOMACH FOLLOWED IN 30 MINUTES WITH BREAKFAST 90 Complies with drug therapyStart: 05-29-2023 End: 92-80-2463hyvd 1 tablet by mouth once dailyPantoprazole 40 mg tablet,delayed release (DR/EC) Discontinued 40 MG PO Daily June 21, 2023 1:00am August 25, 2023 1:04pmStart: 25-48-6774Yplftvboizsh [address] Tab Refills(s) 0 Start Date: 03/22/23 Status: OrderedComment on above:TAKE 1 TABLET BY MOUTH ONCE A DAY ON EMPTY STOMACH FOLLOWED IN 30 MINUTES WITH BREAKFAST 90pen needle, diabetic (BD Ultra-Fine Georgina Pen Needle) (11 sources)Start: 97-51-0800fwf needle, diabetic (BD Ultra-Fine Georgina Pen Needle) Active .Route June 21, 2023 12:00amStart: 74-51-8197sdh needle, diabetic (BD Ultra-Fine Georgina Pen Needle) Active .Route June 21, 2023 1:00am microencapsulated potassium chloride 20 meq extended release oral tablet (11 sources)Start: 70-47-8504kpgscizsw chloride ER (KLOR-CON) 20 mEq tablet Take 20 mEq by mouth. 03/02/2022 ActiveComment on above:Take 20 mEq by mouth. sacubitril 24 mg / valsartan 26 mg oral tablet (20 sources)Angiotensin 2 Receptor BlockerStart: 33-61-8035qzkp 1 tablet by mouth in the morningENTRESTO 24-26 mg tablet TAKE 1 TABLET BY MOUTH IN THE MORNING AND IN THE EVENING 07/03/2023 ActiveStart: 49-57-0784srau 1 tablet by mouth twice dailySacubitril-Valsartan (Entresto) [...] mg oral tablet (20 sources)Phosphodiesterase 5 InhibitorStart: 89-13-5005Rjsiwumrpv 100 mg tablet Active 100 MG PO as needed June 21, 2023 1:00am Complies with drug therapyStart: 66-54-5996dgbc 1 tablet by mouth once daily as neededSildenafil Citrate 100 MG 1 tablet Orally Once a day, as needed for ED for 30 days Oct, Activespironolactone 25 mg oral tablet (20 sources)Aldosterone AntagonistStart: 77-15-5775rvxj 1 tablet by mouth once dailySpironolactone 25 mg tablet Active 25 MG PO Daily June 21, 2023 1:00am Complies with drug therapyStart: 78-08-8727imdxieczpkkavf 25 mg Tab Refills(s) 0 Start Date: 03/22/23 Status: OrderedComment on above:Take 25 mg by mouth every morning.tiZANidine 4 mg oral tablet (20 sources)Central alpha-2 Adrenergic AgonistStart: 09-11-1753jrtb 0.5-2 tablets by mouth once daily at bedtimeTizanidine 4 mg tablet Active 0 PO .COMPLEX June 21, 2023 1:00am TAKE 1/2 TO 2 TABLETS BY MOUTH EVERY DAY AT BEDTIME; Complies with drug therapyStart: 53-61-5457qvFTWyjzub 4 mg Tab Refills(s) 0 Start Date: 03/22/23 Status: Ordered Completed/Discontinued Medications MedicationDrug Class(es)DatesSig (Normalized)Sig (Original)atenolol 25 mg oral tablet (20 sources)beta-Adrenergic BlockerStart: 06-26-2018 End: 46-40-0695Dccdhhqf 25 mg tablet Discontinued 25 MG PO 1200 June 26, 2018 12:00am June 21, 2023 5:28pm HTNcanagliflozin 300 mg oral tablet (13 sources)Sodium-Glucose Cotransporter 2 InhibitorStart: 06-26-2018 End: 25-12-8641Ohahljbaozpqm 300 mg tablet Discontinued 300 MG PO 1200 June 26, 2018 12:00am June 21, 2023 5:28pm DMciprofloxacin 500 mg oral tablet (5 sources)Quinolone AntimicrobialStart: 60-40-7100yuey 1 tablet by mouth every twelve hoursCipro 500 MG 1 tablet Orally every 12 hrs for 7 days Jul, Not-Takingdapagliflozin 10 mg oral tablet (20 sources)Sodium-Glucose Cotransporter 2 InhibitorStart: 06-21-2023 End: 77-48-1951nlty 1 tablet by mouth once dailyDapagliflozin Propanediol (Farxiga) 10 mg tablet Discontinued 10 MG PO Daily 90 3 February 07, 2024 5:15pm November 27, 2024 4:43pm Type 2 diabetes mellitus with hyperglycemia Type 2 diabetes mellitus with hyperglycemia 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Start: 85-54-2928Metlpsv 10 mg oral tablet Refills(s) 0 Start Date: 03/22/23 Status: OrderedComment on above:Take 10 mg by mouth every morning.empagliflozin 10 mg oral tablet (10 sources)Sodium-Glucose Cotransporter 2 Inhibitortake 1 tablet by mouth every twenty-four hoursJardiance 10 MG 1 tablet Orally Once a day for 30 day(s) Not-Takingfenofibrate 145 mg oral tablet (20 sources)Peroxisome Proliferator Receptor alpha AgonistStart: 06-26-2018 End: 55-04-8378Aumibysbncd Nanocrystallized 145 mg tablet Discontinued 145 MG PO 1200 June 26, 2018 12:00am June 21, 2023 5:29pm high cholesterolflash glucose sensor (FreeStyle Shivani 2 Sensor) (11 sources)Start: 06-21-2023 End: 44-15-8760uudjh glucose sensor (FreeStyle Shivani 2 Sensor) Discontinued .Route June 21, 2023 12:00am November 15, 2023 6:58amStart: 06-21-2023 End: 71-39-6886yaoil glucose sensor (FreeStyle Shivani 2 Sensor) Discontinued .Route June 21, 2023 1:00am November 15, 2023 7:58amStart: 17-57-6584cwyyj glucose sensor (FreeStyle Shivani 2 Sensor) Active .Route June 21, 2023 1:00am Flash Glucose Sensor (Freestyle Shivani 2 Sensor) kit (8 sources)Start: 11-15-2023 End: 06-75-1870Rpjke Glucose Sensor (Freestyle Shivani 2 Sensor) kit Discontinued 0 .ROUTE .COMPLEX 6 3 November 15, 2023 7:58am November 01, 2024 8:33am CHANGE EVERY 14 DAYSStart: 11-15-2023 End: 28-24-6510Bmncl Glucose Sensor (Freestyle Shivani 2 Sensor) kit Discontinued 0 .ROUTE .COMPLEX November 15, 2023 7:58am November 01, 2024 8:33am CHANGE EVERY 14 DAYSStart: 28-06-3033Crupu Glucose Sensor (Freestyle Shivani 2 Sensor) kit Active 0 .ROUTE .COMPLEX November 15, 2023 6:58am CHANGE EVERY 14 DAYSStart: 17-72-0904Azzbl Glucose Sensor (Freestyle Shivani 2 Sensor) kit Active 0 .ROUTE .COMPLEX November 15, 2023 7:58am CHANGE EVERY 14 DAYSfluconazole 150 mg oral tablet (10 sources)Azole AntifungalStart: 19-07-1079Secsjbga 150 MG 1 tablet Orally Once, repeat in 3 days if needed for 3 days August, Not-Taking hydroCHLOROthiazide 25 mg oral tablet (20 sources)Thiazide DiureticStart: 06-26-2018 End: 58-25-1645Fflbrvhdknvyjtzjjur 25 mg tablet Discontinued 25 MG PO 1200 June 26, 2018 12:00am June 21, 2023 5:29pm htn3 ml insulin aspart, human 100 unt/ml pen injector (20 sources)Insulin AnalogStart: 06-26-2018 End: 32-02-3548Hkkhkkf Aspart U-100 100 unit/mL insulin pen Discontinued [...] pen injector (20 sources)Insulin AnalogStart: 02-07-2024 End: 32-91-6196Pswhabe Glargine U-300 Conc 300 unit/mL (1.5 mL) insulin pen Discontinued 70 UNIT SUBCUT Daily at bedtime 08 07February 07, 2024 5:11pm March 19, 2024 1:35pm Type 2 diabetes mellitus with hyperglycemia Type 2 diabetes mellitus with hyperglycemia group home (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 DMStart: 11-01-2023 End: 17-28-2524Lwrdcwl Glargine U-300 Conc 300 unit/mL (1.5 mL) insulin pen Discontinued 74 UNIT SUBCUT Daily at bedtime November 01, 2023 5:07pm February 07, 2024 4:43pm DMStart: 06-21-2023 End: 56-48-3714Qwtdvxn Glargine U-300 Conc 300 unit/mL (1.5 mL) insulin pen Discontinued 72 UNIT SUBCUT Daily at bedtime June 21, 2023 5:18pm November 01, 2023 5:07pm DMStart: 03-76-6754euohzkc glargine U-300 conc (TOUJEO MAX U-300 SOLOSTAR) 300 unit/mL (3 mL) inpn Inject 60 Units subcutaneously once daily. 03/22/2023 ActiveStart: 17-16-4084jfjdmbz glargine U-300 conc (TOUJEO MAX U-300 SOLOSTAR) 300 unit/mL (3 mL) inpn Refills(s) 0 0 03/22/2023 ActiveStart: 86-39-6300Filain Max SoloStar 300 units/mL subcutaneous solution Refills(s) 0 Start Date: 03/22/23 Status: OrderedStart: 06-26-2018 End: 47-98-8213Xafikka Glargine U-300 Conc 300 unit/mL (1.5 mL) [...] above: Refills(s) 0Inject 60 Units subcutaneously once daily.3 ml insulin lispro-aabc 200 unt/ml pen injector (20 sources)Insulin AnalogStart: 02-07-2024 End: 40-21-8875Sdyzlpr Lispro-Aabc 200 unit/mL (3 mL) insulin pen Discontinued 0 SUBCUT .COMPLEX 54 3 February 07, 2024 5:12pm November 27, 2024 4:43pm Type 2 diabetes mellitus with hyperglycemia Type 2 diabetes mellitus with hyperglycemia group home (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 USE 36 UNITS BEFORE BREAKFAST/lunch, 38 BEFORE SUPPER PLUS ISS 1:10 BEFORE MEALS (AT BEDTIME IF >200 HALF DOSE) *UP TO 120 UNITS PER DAY* SubcutaneousStart: 06-21-2023 End: 58-68-0866Rwcdrgz Lispro-Aabc 200 unit/mL (3 mL) insulin pen Discontinued 0 SUBCUT .COMPLEX June 21, 2023 1:00am February 07, 2024 4:43pm USE 32 UNITS BEFORE BREAKFAST, 38 BEFORE SUPPER PLUS ISS 1:10 BEFOREMEALS (AT BEDTIME IF >200 HALF DOSE) *UP TO 100 UNITS PER DAY* Subcutaneous (expect up to 100 units/day) Start: 49-32-2698Wromzuw KwikPen 100 units/mL injectable solution Refills(s) 0 Start Date: 03/22/23 Status: OrderedStart: 30-30-5064Ezkyfcy KwikPen 100 UNIT/ML 32 units ac breakfast , 38 supper plus ISS 1: 10 ac, (hs if >200 half dose) (expect daily dose 80 units) Subcutaneous ACHS Apr, Activelisinopril 10 mg oral tablet (20 sources)Angiotensin Converting Enzyme InhibitorStart: 06-26-2018 End: 32-61-4464Qfhruvarmn 10 mg tablet Discontinued 10 MG PO 1200 June 26, 2018 12:00am June 21, 2023 5:29pm HTNMagnesium, Zinc, Vitamin D (13 sources)Start: 06-26-2018 End: 82-80-7647vafs 1 tablet by mouth once daily at bedtimeMagnesium, Zinc, Vitamin D Discontinued 1 TAB PO Daily at bedtime June 25, 2018 11:00pm June 21, 2023 4:29pmStart: 06-26-2018 End: 76-83-6273wvhj 1 tablet by mouth once daily at bedtimeMagnesium, Zinc, Vitamin D Discontinued 1 TAB PO Daily at bedtime June 26, 2018 12:00am June 21, 2023 5:29pmStart: 85-22-7495xrst 1 tablet by mouth once daily at bedtime Magnesium, Zinc, Vitamin D Active 1 TAB PO Daily at bedtime June 25, 2018 11:00pmStart: 30-56-5005wogu 1 tablet by mouth once daily at bedtimeMagnesium, Zinc, Vitamin D Active 1 TAB PO Daily at bedtime June 26, 2018 12:00am24 hr metFORMIN hydrochloride 500 mg extended release oral tablet (20 sources)BiguanideStart: 02-01-2023 End: 63-76-4735sdgr 1 tablet by mouth three times dailyMetformin 500 mg tablet extended release 24 hr Discontinued 500 MG PO Three times daily June 21, 2023 1:00am December 19, 2023 7:09amStart: 55-70-8066aryn 1 tablet by mouth every twelve hoursmetFORMIN ER (GLUCOPHAGE XR) 500 mg 24 hr tablet Take 1 tablet by mouth every 12 hours. 0 02/01/2023 ActiveStart: 06-26-2018 End: 69-38-9254Qrlvwdyfe (Glucophage) 500 mg Tablet Discontinued 1000 MG PO 1800 June 26, 2018 12:00am June 21, 2023 5:21pm DMStart: 06-26-2018 End: 27-64-5514Vstwbazlc (Glucophage) 500 mg Tablet Discontinued 500 MG [...] times a day.omega-3 fatty acids (Fish Oil) (11 sources)Start: 06-21-2023 End: 74-78-5439ians 1 capsule by mouth once dailyomega-3 fatty acids (Fish Oil) Discontinued 1 CAP PO Daily June 21, 2023 12:00am February 07, 2024 3:40pm Start: 06-21-2023 End: 99-85-5567mtaz 1 capsule by mouth once dailyomega-3 fatty acids (Fish Oil) Discontinued 1 CAP PO Daily June 21, 2023 1:00am February 07, 2024 4:40pm Start: 91-96-3322jeqi 1 capsule by mouth once dailyomega-3 fatty [...] infarction; Translations: [NON- ST ELEVATION MYOCARDIAL INFARCT]Onset: 87-69-6891OvdmjplBiwmmcjylbavlv/social admission (20 sources)Dietary management surveillance; Translations: [Dietary counseling and surveillance]Onset: 03-24-2021 Resolved: 70-55-4514PflbnaahJggkvma dysrhythmias (20 sources)Atrial fibrillation; Translations: [Unspecified atrial fibrillation] Onset: 83-29-1953WehauzzIsorayk ulcer of skin (1 source)Non-pressure chronic ulcer of other part of left foot limited to breakdown of skin; Translations: [N-PRS ULCR OTH PRT LT FT BRKDWN SKN]Onset: 48-90-1671ShfdxdiNsavopqflwow of device; implant or graft (8 sources)Arteriosclerosis of coronary artery bypass graft; Translations: [Atherosclerosis of coronary arterybypass graft(s) without angina pectoris] Onset: 426172-02-2962JnwoianUvcahfbgkkwbe of surgical procedures or medical care (2 sources)Other postprocedural complications and disorders of the circulatory system, not elsewhere classified; Translations: [Other postprocedural complications and disorders of the circulatory system, not elsewhere classified] Onset: 50-11-9328DeveerqkRiittgexeb heart failure; nonhypertensive (20 sources)Heart failure with normal ejection fraction; Translations: [Unspecified diastolic (congestive) heart failure]Onset: 51-94-7744Mbarual Comment on above:Echo: LVEF 50%, WARREN, normal RV size/function - oronary atherosclerosis and other heart disease (20 sources)Coronary arteriosclerosis; Translations: [Atherosclerotic heart disease of [place] coronary artery without angina pectoris]Onset: 01-06-2022 ChronicComment on above:PCI/stent LAD - 2007, CABG x - 12/2021, Echo: LVEF 50%, normal RV size/function - 06/2024,Coronary atherosclerosis and other heart disease (9 sources)Presence of aortocoronary bypass graft; Translations: [PRESENCE AORTOCORONARY BYPASS GRAFT]Onset: 93-35-7475OtksiqirRflfxbjy injury or internal injury (8 sources)Crushing injury of right index finger, initial encounter; Translations: [Crushing injury of foot]EpisodicDiabetes mellitus with complications (20 sources)Hyperglycemia due to type 2 diabetes mellitus; Translations: [Type 2 diabetes mellitus with hyperglycemia]Onset: 01-06-2021 Resolved: 80-31-1366IhcmnshXhtkzzpx mellitus without complication (20 sources)Type 2 diabetes mellitus without complication; Translations: [Type 2 diabetes mellitus without complications]Onset: hronic Disorders of lipid metabolism (20 sources)Hypertriglyceridemia; Translations: [Pure hyperglyceridemia]Onset: 03-24-2021 Resolved: 46-32-6163YdjrhnfM Codes: Fall (4 sources)Accidental fall ; Translations: [Unspecified fall, initial encounter] 82-15-7153WwbqjreqFdjfbooiea disorders (20 sources)Gastro-esophageal reflux disease with esophagitis; Translations: [Gastroesophageal reflux disease with esophagitis without hemorrhage]Onset: 114977-14-6867ZoxnahzLypmsqbiv hypertension (20 sources)Essential hypertension; Translations: [Essential (primary) hypertension]Onset: 03-24-2021 Resolved: 05-72-5444WrmcbewTmlgrsn on above:Carotid US: < 50% B/L - 12/2021 Genitourinary congenital anomalies (2 sources)Congenital buried penis; 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]Onset: 51-92-4981GfpxcifYjysjxvhzavpk symptoms and ill-defined conditions (12 sources)Dysuria; Translations: [Hematuria, unspecified]Onset: 08-11-2021 Resolved: 02-25-8810TdtgfzrdQtqpjfyfrfhx conditions of male genital organs (19 sources)Balanitis; Translations: [Balanitis]Onset: 12-40-4505Flhvosl Inflammatory conditions of male genital organs (17 sources)Acute prostatitis; Translations: [Acute prostatitis]Episodic Intestinal infection (1 source)Jhmsypcrrlcdv67-54-8431AkstvelzTxkzrpqvocb deficiencies (20 sources)Vitamin D deficiency; Translations: [Vitamin D deficiency, unspecified]ChronicNutritional deficiencies (20 sources)Deficiency of other specified B group vitamins; Translations: [Cobalamin deficiency]Onset: 10-21-2021 Resolved: 83-69-3268UxyehnbeXyxp wounds of extremities (17 sources)Open wound of toe(s) with damage to nail; Translations: [Unspecified open wound of unspecified toe(s) with damage to nail, subsequent encounter] EpisodicOsteoarthritis (6 sources)Osteoarthritis of left foot; Translations: [Primary osteoarthritis, left ankle and foot]33-71-7951XuuqdlrFozwy aftercare (20 sources)Long-term current use of insulin; Translations: [group home (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]EpisodicOther aftercare (1 source)Long-term current use of anticoagulant; Translations: [group home (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 of anticoagulants]Onset: 91-90-0084EwnaprlrWymwj and ill-defined heart disease (1 source)Heart oooetvj96-03-0161TzixqbySeukn bone disease and musculoskeletal deformities (2 sources)Avascular necrosis of bone of hip; Translations: [Idiopathic aseptic necrosis of left femur]69-87-9969XatzjjwFgqmu connective tissue disease (18 sources)Pain in right foot; Translations: [Pain in right foot]Onset: 85-49-0209YkeinzfmZcaar connective tissue disease (8 sources)Pain in left lower limb; Translations: [Pain in left leg]04-23-2024 EpisodicOther connective tissue disease (1 source)Pain in left leg; Translations: [Pain in limb]10-16-4319WxeprvwwUuoih diseases of veins and lymphatics (17 sources)Peripheral venous insufficiency; Translations: [Venous insufficiency (chronic) (peripheral)]EpisodicOther diseases of veins and lymphatics (3 sources)Venous insufficiency (chronic) (peripheral)EpisodicOther hereditary and degenerative nervous system conditions (1 source)Other idiopathic peripheral autonomic neuropathy; Translations: [OTH IDIO PERIPH AUTONOM NEUROPATHY]Onset: 85-73-6293QmhcmudVgzis lower respiratory disease (1 source)Chronic pulmonary edema; Translations: [CHRONIC PULMONARY EDEMA]Onset: 17-29-7896SqjjsyrVtsxs male genital disorders (13 sources)Erectile dysfunction co-occurrent and due to arterial insufficiency; Translations: [Erectile dysfunction due to arterial insufficiency]ChronicOther male genital disorders (3 sources)Erectile dysfunction due to arterial insufficiencyChronicOther male genital disorders (15 sources)Male erectile dysfunction, unspecified; Translations: [Erectile dysfunction]Onset: 46-82-5529ZbuilohXikob male genital disorders (13 sources)Acquired buried penis; 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]Onset: 796706-86-3230RksldvsCkzjh male genital disorders (12 sources)Fibrosis of corpus cavernosum; Translations: [Induration penis plastica]Onset: 864258-00-8724MwccjpbKbndi male genital disorders (1 source)Acquired buried penis; 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]Onset: 46-82-1196UtnpuckYgrmm male genital disorders (1 source)Induration penis plastica; Translations: [Scarring of penis]Onset: 70-35-3691YaguysjCkhfb male genital disorders (1 source)Erectile dysfunction due to diseases classified elsewhere; Translations: [Erectile dysfunction associated with type 2 diabetes mellitus (HCC) (HCC)]Onset: 46-59-4639SusgdxuRopjm male genital disorders (12 sources)Phimosis; Translations: [Phimosis]Onset: 02-66-9821IwcmrbhmHrvor non-traumatic joint disorders (17 sources)Arthropathy associated with a neurological disorder; Translations: [Charcot's joint, left ankle andfoot]ChronicOther non-traumatic joint disorders (4 sources)Arthralgia of the pelvic region and thigh; Translations: [Pain in left hip]30-27-7807DpcqadepJdvpz nutritional; endocrine; and metabolic disorders (20 sources)Obese class II; Translations: [Body mass index (BMI) 37.0-37.9, adult]ChronicOther nutritional; endocrine; and metabolic disorders (20 sources)Obesity; Translations: [Obesity, unspecified]32-02-5223QtomifiKkbpg nutritional; endocrine; and metabolic disorders (20 sources)Body mass index 40+ - severely obese; Translations: [Body mass index (BMI) 40.0-44.9, adult]ChronicOther nutritional; endocrine; and metabolic disorders (5 sources)Body mass index (BMI) 40.0-44.9, adult; Translations: [BODY MASS INDEX BMI 40.0-44.9 ADULT]Onset: 03-24-2021 Resolved: 09-04-1837OtydmhoYoups nutritional; endocrine; and metabolic disorders (17 sources)Morbid obesity; Translations: [Morbid (severe) obesity due to excess calories]ChronicOther nutritional; endocrine; and metabolic disorders (6 sources)Body mass index (BMI) 39.0-39.9, adult; Translations: [Body Mass Index 39.0-39.9, adult]Onset: 97-35-2832VucamikOshyj nutritional; endocrine; and metabolic disorders (2 sources)Obesity, unspecified; Translations: [Obesity, unspecified]Onset: 543859-63-2342QucojryYdsby nutritional; endocrine; and metabolic disorders (20 sources)Body mass index 30+ - obesity; Translations: [Body mass index (BMI) 39.0-39.9, adult]42-97-8344AbeietsKfnft nutritional; endocrine; and metabolic disorders (7 sources)Obesity caused by energy imbalance; Translations: [Other obesity due to excess calories]Onset: 002339-63-7335BzwebwuEpcar nutritional; endocrine; and metabolic disorders (1 source)Other obesity due to excess calories; Translations: [Class 2 obesity due to excess calories withoutserious comorbidity with body mass index (BMI) of 39.0 to 39.9 in adult]Onset: 22-84-8281TuyszdaEqilf nutritional; endocrine; and metabolic disorders (4 sources)Body mass index (BMI) 38.0-38.9, adult; Translations: [Body Mass Index 38.0-38.9, adult]48-53-9462SaynmqqIhxxa screening for suspected conditions (not mental disorders or infectious disease) (9 sources)Encounter for screening for malignant neoplasm of prostate; Translations: [Patient encounter status]EpisodicComment on above:PSA: 0.52 - 01/2025Skin and subcutaneous tissue infections (2 sources)Cutaneous abscess of right handEpisodicSpondylosis; intervertebral disc disorders; other back problems (18 sources)Lumbosacral spondylosis with radiculopathy; Translations: [Other spondylosis with radiculopathy, lumbosacral region]Onset: 22-96-2645Uxvqwmd Spondylosis; intervertebral disc disorders; other back problems (4 sources)Low back pain; Translations: [Low back pain]44-24-9873Drjoystu Superficial injury; contusion (15 sources)Blister (nonthermal), left great toe, initial encounter; Translations: [Contusion of unspecified finger with damage to nail, initial encounter]EpisodicUnclassified (1 source)CONTACT W/AND (SUSP) EXPOS COVID-19; Translations: [CONTACT W/AND (SUSP) EXPOS COVID-19]Onset: 28-73-2211Lpxmeqjgfwda (1 source)Drug therapy -85-7381 Past or Other Problems Problem ClassificationProblemDateDocumented DateEpisodic/ChronicEsophageal disorders (4 sources)Esophageal disordersMycoses (1 source)Tinea unguium; Translations: [TINEA UNGUIUM]Onset: 79-88-8751Ixjtwyqw Nonspecific chest pain (3 sources)Chest pain, unspecified; Translations: [CHEST PAIN UNSPECIFIED]Onset: 93-91-0195ZautzlfuXizdt aftercare (9 sources)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; Translations: [LONGTERM CURRENT USE OF INSULIN]Onset: 03-24-2021 Resolved: 19-05-6853IrudgnfnZzfyi aftercare (1 source)parts counterman (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 of oral hypoglycemic drugs; Translations: [LONGTERM USE ORAL HYPOGLYCEMIC DX]Onset: 60-55-5738CjqjhwppLrgfh connective tissue disease (3 sources)Pain in right foot; Translations: [PAIN IN RIGHT FOOT]Onset: 82-60-4983TexrmijvTrvwn connective tissue disease (1 source)Pain in left foot; Translations: [PAIN IN LEFT FOOT]Onset: 09-20-2021 EpisodicOther nervous system disorders (1 source)Other acute postprocedural pain; Translations: [Acute post-operative pain]Onset: 55-62-1006EbyarbkhIflbc skin disorders (4 sources)Nail dystrophy; Translations: [NAIL DYSTROPHY]Onset: 09-09-2021 EpisodicSprains and strains (8 sources)Strain of muscle, fascia and tendon of lower back, subsequent encounter; Translations: [Strain of muscle, fascia and tendon of lower back, initial encounter]Onset: 71-23-3618YwitwqvlGrsuhct tract infections (2 sources)Urinary tract infection, site not specifiedOnset: 08-11-2021 Resolved: 24-25-5423Xwvsucwl Results Test NameValueInterpretationReference RangeFacilityBasophils Auto (Bld) [#/Vol] Ordered By: Outside Provider on 56-67-2494Iqkovwvky (Bld) [#/Vol]0.1 10 3/uL 0.0-0.1FOur Lady of Mercy HospitalBasophils/100 WBC Auto (Bld)Ordered By: Outside Provider on 07-00-3744Qeqogsnte/100 WBC (Bld)0.6 %0.2-2.0[facility] CenterCholesterol in LDL Calc [Mass/Vol]Ordered By: Outside Provider on 62-26-6048Zwnlpwhxuis in LDL [Mass/Vol]67.0 mg/dLTrinity Health System Twin City Medical CenterComment on above:<100 mg/dl IVYNQFY121-381 mg/dl NEAR OR ABOVE QWMPFFH298-635 mg/dl BORDERLINE XVXO446-752 mg/dl HIGH>190 mg/dl VERY HIGH Cholesterol in VLDL Calc [Mass/Vol]Ordered By: Outside Provider on 02-04-2025 Cholesterol in VLDL [Mass/Vol]50.2 mg/dLTrinity Health System [facility] Center Eosinophils/100 WBC Auto (Bld)Ordered By: Outside Provider on 02-04-2025 Eosinophils/100 WBC (Bld)2.7 %0.9-7.0[facility] Erythrocyte distribution width Auto (RBC) [Ratio]Ordered By: Outside Provider on 13-61-6843Xbctwfornfr distribution width (RBC) [Ratio]16.2 %High11.0-15.0 [facility] CenterGlobulin Calc (S) [Mass/Vol]Ordered By: Outside Provider on 42-97-2774Fzdihujl (S) [Mass/Vol]4.6 g/dLTrinity Health System Twin City Medical CenterGlomerular filtration rate (GFR) estimation in non- Ordered By: Outside Provider on 37-86-8669XDP/1.73 sq M.predicted among non- blacks MDRD (S/P/Bld) [Vol rate/Area]mL/min/{1.73_m2}>=60 mL/min/1.73m 2 [facility] CenterHematocrit Auto (Bld) [Volume fraction]Ordered By: Outside Provider on 53-22-6540Xbwvqsrmzw (Bld) [Volume fraction]51.6 % 42.0-54.0[facility] CenterHemoglobin [Mass/volume] in Blood Ordered By: Outside Provider on 45-90-4886Hlicjhabuj (Bld) [Mass/Vol]17.0 g/dL 14.0-18.0[facility] CenterLaboratory - Chemistry and Chemistry - challengeOrdered By: Outside Provider on 23-07-7351Cjtixxj [Mass/Vol]4.2 g/dL 3.4-5.0[facility] CenterALP [Catalytic activity/Vol]120 U/LHigh 46-116[facility] CenterALT [Catalytic activity/Vol]39 U/L16-63 [facility] CenterAST [Catalytic activity/Vol]27 U/L15-37 [facility] CenterBilirubin [Mass/Vol]0.3 mg/dL0.2-1.0[facility] CenterCalcium [Mass/Vol]9.4 mg/dL8.5-10.1FOur Lady of Mercy HospitalChloride [Moles/Vol]101 mmol/H62-064UvdwdsxxqTrinity Health System [facility] CenterCholesterol [Mass/Vol]154 mg/dL<=200[facility] Cholesterol in HDL [Mass/Vol]37 mg/aWJte35-22VfopladaeTr[facility] Comment on above:> or =60 mg/dl - LOW CARDIOVASCULAR RISK<40 mg/dl - HIGH CARDIOVASCULAR RISKCO2 [Moles/Vol]27.9 mmol/L21.0-32.0[facility] CenterCreatinine [Mass/Vol]0.69 mg/dLLow0.70-1.30[facility] CenterGFR/1.73 sq M.predicted MDRD (S/P/Bld) [Vol rate/Area]mL/min/{1.73_m2}>=60 mL/min/1.73m 2FOur Lady of Mercy HospitalGlucose [Mass/Vol]109 mg/dLHigh 74-106[facility] CenterPotassium [Moles/Vol]4.0 mmol/L3.5-5.1 [facility] CenterProtein [Mass/Vol]8.8 g/dLHigh6.4-8.2FSCCI Hospital Limaodium [Moles/Vol]138 mmol/C541-138DjkxlfebdTrinity Health System Twin City Medical CenterTriglyceride [Mass/Vol]251 mg/dLHigh<=150[facility] CenterUrea nitrogen [Mass/Vol]15.0 mg/dL7.0-18.0[facility] CenterUrea nitrogen/Creatinine [Mass ratio]21.7 mg/mgTrinity Health System [facility] Medical CenterLaboratory - Hematology and Cell countsOrdered By: Outside Provider on 29-70-7511Qnudesze granulocytes/100 WBC (Bld)0.5 %0.0-0.5FOur Lady of Mercy HospitalLeukocytes [#/volume] corrected for nucleated erythrocytes in Blood by Automated counOrdered By: Outside Provider on 74-27-7704GQI corrected for nucl RBC Auto (Bld) [#/Vol]9.9 10 3/uL4.0-11.0 [facility] CenterLymphocytes Auto (Bld) [#/Vol]Ordered By: Outside Provider on 26-05-5523Ojhzfbyzhtt (Bld) [#/Vol]2.4 10 3/uL1.2-3.8 [facility] CenterLymphocytes/100 WBC Auto (Bld)Ordered By: Outside Provider on 42-96-5630Yyyvxxxsena/100 WBC (Bld)24.5 %20.5-60.0[facility] CenterMCH Auto (RBC) [Entitic mass]Ordered By: Outside Provider on 19-02-4877DTM (RBC) [Entitic mass]28.0 pg25.9-34.0[facility] CenterMCHC Auto (RBC) [Mass/Vol]Ordered By: Outside Provider on 02-69-3703SNVD (RBC) [Mass/Vol]32.9 g/dL29.9-35.2FOur Lady of Mercy HospitalMCV Auto (RBC) [Entitic vol]Ordered By: Outside Provider on 32-99-5430TLJ (RBC) [Entitic vol]85.0 fL80.0-94.0[facility] CenterMonocytes Auto (Bld) [#/Vol]Ordered By: Outside Provider on 39-86-5463Lidszjdqq (Bld) [#/Vol]1.0 10 3/uLHigh0.3-0.8[facility] CenterMonocytes/100 WBC Auto (Bld) Ordered By: Outside Provider on 41-10-1618Rctnjvatg/100 WBC (Bld)10.0 %1.7-12.0 [facility] CenterNeutrophils Auto (Bld) [#/Vol]Ordered By: Outside Provider on 37-18-0542Cottoazwaff (Bld) [#/Vol]6.1 10 3/uL1.4-6.5 [facility] CenterNeutrophils/100 WBC Auto (Bld)Ordered By: Outside Provider on 19-39-1990Tkzkoqzlyhu/100 WBC (Bld)61.7 %43.0-75.0[facility] CenterNo Panel InformationOrdered By: Outside Provider on 92-52-6346Vhgperrcblh # (Auto)0.3 10 3/uL0.0-0.7FOur Lady of Mercy HospitalImmature Granulocyte # (Auto)0.05 10 3/uLHigh0.00-0.03[facility] CenterNucleated Red Blood Cells/100 ZDS8ZipnopikiTrinity Health System [facility] CenterProstate Specific Antigen Screen0.52 ng/mL<=4.00[facility] CenterPlatelet mean volume Auto (Bld) [Entitic vol]Ordered By: Outside Provider on 09-20-1465Lqbflmfe mean volume (Bld) [Entitic vol]9.5 fL9.5-13.5FOur Lady of Mercy HospitalPlatelets Auto (Bld) [#/Vol]Ordered By: Outside Provider on 47-14-3480Fhmqnmdpt (Bld) [#/Vol]313 10 3/fM578-094FasdsyomqTrinity Health System Twin City Medical CenterRBC Auto (Bld) [#/Vol]Ordered By: Outside Provider on 87-01-1385IBY (Bld) [#/Vol]6.07 10 6/uL4.70-6.10[facility] Centererum or plasma albumin/globulin mass ratioOrdered By: Outside Provider on 02-04-2025 Albumin/Globulin [Mass ratio]0.9 {ratio}[facility] Centererum or plasma anion gap determinationOrdered By: Outside Provider on 94-94-1720Atdog gap [Moles/Vol]13.1 mmol/LFSCCI Hospital Limaerum or plasma total cholesterol/high density lipoprotein (HDL) cholesterol mass ratOrdered By: Outside Provider on 13-13-0578Leajjvbuhnb.total/Cholesterol in HDL [Mass ratio] 4.2 {ratio}[facility] CenterComment on above:3.3 - 4.4 LOW RISK4.4 - 7.1 AVERAGE RISK7.1 - 11.0 MODERATE RISK>11.0 HIGH UNSLWrB8w HPLC (Bld) [Mass fraction]Ordered By: Yamilex Foster on 21-07-8084EbJ1q (Bld) [Mass fraction]7.0 %[facility] CenterNo Panel InformationOrdered By: Yamilex Foster on 96-89-3323Avlpdrb Wyvyfzv504IrucvbwvuTrinity Health System [facility] Center Laboratory - Chemistry and Chemistry - challengeon 21-36-1294Zvlwgzsci (Vitamin B12) [Mass/Vol]601 pg/wT480-0480QdiwfdqqdTr[facility] Health System Twin City Medical CenterComment on above:Performed at: [facility] [id number] Director: Toy Conroy PhD, Phone: [phone] [Mass/volume] in Urineon 01-64-0681Zgxyfch DL <= 20 mg/L (U) [Mass/Vol]2.3 mg/dL<=30.0[facility] CenterNo Panel Informationon 61-96-8665Bynit Random Creatinine 78.24 mg/dL20.00-300.00[facility] CenterUrine microalbumin/creatinine mass ratioon 25-32-3014Vsjwloi/Creatinine DL <= 20 mg/L (U) [Mass ratio]29.3 mg/g0.0-29.9[facility] CenterComment on above:NO MICROALBUMINURIA 0-29 MG/GCLINICAL MICROALBUMINURIA 30-300 MG/GMACROALBUMINURIA >300 MG/GHbA1c HPLC (Bld) [Mass fraction]on 20-21-4129DbJ8b (Bld) [Mass fraction]6.9 %[facility] CenterNo Panel Information on 41-64-7790Hbotmnx Xmkwufg741UydsockwqTr[facility] System [facility] CenterBasophils Auto (Bld) [#/Vol]on 89-15-4924Bdmmvzovi (Bld) [#/Vol]Automated basophil count0.0-0.1 [facility] CenterBasophils/100 WBC Auto (Bld)on 07-13-2024 Basophils/100 WBC (Bld)Automated basophil %0.2-2.0[facility] CenterCholesterol in LDL Calc [Mass/Vol]on 42-09-9328Cllhuxfjewg in LDL [Mass/Vol]Cholesterol in LDL [Mass/volume] in Serum or Plasma by calculation [facility] CenterComment on above:<100 mg/dl XXXAWBU178-419 mg/dl NEAR OR ABOVE MGLAUFZ722-294 mg/dl BORDERLINE GFJA253-406 mg/dl HIGH>190 mg/dl VERY HIGHCholesterol in VLDL Calc [Mass/Vol]on 60-59-6219Simlfrqfmtr in VLDL [Mass/Vol]Cholesterol in VLDL [Mass/volume] in Serum or Plasma by calculationTrinity Health System [facility] Medical CenterEosinophils/100 WBC Auto (Bld)on 00-57-9007Puuiyopjtqz/100 WBC (Bld)Automated eosinophil %0.9-7.0[facility] CenterErythrocyte distribution width Auto (RBC) [Ratio]on 92-62-3295Odxlolpkdpc distribution width (RBC) [Ratio]Erythrocyte distribution width [Ratio] by Automated trxokUpuv15.0-15.0[facility] Estimated glomerular filtration rate (GFR) non- Americanon 07-13-2024 GFR/1.73 sq M.predicted among non-blacks MDRD (S/P/Bld) [Vol rate/Area]Estimated glomerular filtration rate (GFR) non->=60 mL/min/1.73m 2 [facility] CenterGlobulin Calc (S) [Mass/Vol]on 07-13-2024 Globulin (S) [Mass/Vol]Serum globulin measurement by calculation (mass/volume) [facility] CenterHematocrit Auto (Bld) [Volume fraction]on 98-15-1097Pzebrrssvk (Bld) [Volume fraction]Hematocrit [Volume Fraction] of Blood by Automated count42.0-54.0[facility] CenterHemoglobin [Mass/volume] in Bloodon 20-15-0622Lomiltwzey (Bld) [Mass/Vol]Hemoglobin [Mass/volume] in Blood14.0-18.0[facility] CenterLaboratory - Chemistry and Chemistry - challengeon 95-22-6930Stvgkhz [Mass/Vol]3.3 g/dLLow 3.4-5.0[facility] CenterALP [Catalytic activity/Vol]135 U/LHigh 46-116[facility] CenterALT [Catalytic activity/Vol]30 U/L16-63 [facility] [facility] CenterAST [Catalytic activity/Vol]19 U/L15-37 [facility] CenterBilirubin [Mass/Vol]0.4 mg/dL0.2-1.0[facility] CenterCalcium [Mass/Vol]9.2 mg/dL8.5-10.1FOur Lady of Mercy HospitalChloride [Moles/Vol]104 mmol/U89-542UoasopzsjTrinity Health System [facility] CenterCholesterol [Mass/Vol]111 mg/dL<=200[facility] Cholesterol in HDL [Mass/Vol]35 mg/kVCqc45-95DbtkilpukTrinity Health System [facility] Comment on above:> or =60 mg/dl - LOW CARDIOVASCULAR RISK<40 mg/dl - HIGH CARDIOVASCULAR RISKCO2 [Moles/Vol]29.1 mmol/L21.0-32.0[facility] CenterCreatinine [Mass/Vol]0.93 mg/dL0.70-1.30[facility] GFR/1.73 sq M.predicted MDRD (S/P/Bld) [Vol rate/Area]mL/min/{1.73_m2}>=60 mL/min/1.73m 2FOur Lady of Mercy HospitalGlucose [Mass/Vol]168 mg/dLHigh 74-106[facility] CenterPotassium [Moles/Vol]4.0 mmol/L3.5-5.1 [facility] CenterProtein [Mass/Vol]7.5 g/dL6.4-8.2FSCCI Hospital Limaodium [Moles/Vol]142 mmol/R231-622DatjbkgncTrinity Health System [facility] CenterTriglyceride [Mass/Vol]198 mg/dLHigh<=150[facility] CenterUrea nitrogen [Mass/Vol]17.0 mg/dL7.0-18.0[facility] CenterUrea nitrogen/Creatinine [Mass ratio]18.3 mg/mgTrinity Health System [facility] CenterLaboratory - Hematology and Cell countson 18-88-7013Tsxexegi granulocytes/100 WBC (Bld)0.5 %0.0-0.5FOur Lady of Mercy Hospital Leukocytes [#/volume] corrected for nucleated erythrocytes in Blood by Automated counon 49-75-1641EGX corrected for nucl RBC Auto (Bld) [#/Vol]Leukocytes [#/volume] corrected for nucleated erythrocytes in Blood by Automated coun 4.0-11.0[facility] CenterLymphocytes Auto (Bld) [#/Vol]on 44-64-0572Drxneqinlro (Bld) [#/Vol]Lymphocytes [#/volume] in Blood by Automated count1.2-3.8[facility] CenterLymphocytes/100 WBC Auto (Bld)on 52-46-5466Xgmhonfdqwr/100 WBC (Bld)Lymphocytes/100 leukocytes in Blood by Automated count20.5-60.0[facility] CenterH Auto (RBC) [Entitic mass]on 48-51-0676OGD (RBC) [Entitic mass]MCH [Entitic mass] by Automated count 25.9-34.0[facility] CenterMCHC Auto (RBC) [Mass/Vol]on 68-21-1968AVRP (RBC) [Mass/Vol]MCHC [Mass/volume] by Automated count29.9-35.2 [facility] CenterMCV Auto (RBC) [Entitic vol]on 77-04-4390GWJ (RBC) [Entitic vol]MCV [Entitic volume] by Automated count80.0-94.0[facility] CenterMonocytes Auto (Bld) [#/Vol]on 30-82-8279Pzvpqwkkh (Bld) [#/Vol]Automated blood monocyte countHigh0.3-0.8[facility] CenterMonocytes/100 WBC Auto (Bld)on 53-63-0977Gqlqifdnc/100 WBC (Bld)Automated monocyte %1.7-12.0[facility] CenterNeutrophils Auto (Bld) [#/Vol]on 02-73-6836Etifycqssqt (Bld) [#/Vol]Neutrophils [#/volume] in Blood by Automated count1.4-6.5FOur Lady of Mercy HospitalNeutrophils/100 WBC Auto (Bld)on 53-73-1609Nwdauarxzvd/100 WBC (Bld)Automated neutrophil %43.0-75.0 [facility] CenterNo Panel Informationon 17-04-2078Mupwwarqzge # (Auto)0.3 10 3/uL0.0-0.7FOur Lady of Mercy HospitalImmature Granulocyte # (Auto)0.04 10 3/uLHigh0.00-0.03[facility] CenterPlatelet mean volume Auto (Bld) [Entitic vol]on 21-30-8438Ygijszqw mean volume (Bld) [Entitic vol]Platelet mean volume [Entitic volume] in Blood by Automated count9.5-13.5 [facility] CenterPlatelets Auto (Bld) [#/Vol]on 07-13-2024 Platelets (Bld) [#/Vol]Platelets [#/volume] in Blood by Automated yyhxb274-838 [facility] CenterRBC Auto (Bld) [#/Vol]on 25-13-7872GSH (Bld) [#/Vol]Erythrocytes [#/volume] in Blood by Automated count4.70-6.10[facility] Centererum or plasma albumin/globulin mass ratioon 07-13-2024 Albumin/Globulin [Mass ratio]Serum or plasma albumin/globulin mass ratio [facility] Medical Centererum or plasma anion gap determinationon 92-06-2827Cbtvq gap [Moles/Vol]Serum or plasma anion gap determinationUniversity Hospitals Geneva Medical Centererum or plasma total cholesterol/high density lipoprotein (HDL) cholesterol mass evelyn 40-97-5031Azhswsazndy.total/Cholesterol in HDL [Mass ratio]Serum or plasma total cholesterol/high density lipoprotein (HDL) cholesterol mass ratTrinity Health System [facility] Medical CenterComment on above:3.3 - 4.4 LOW RISK4.4 - 7.1 AVERAGE RISK7.1 - 11.0 MODERATE RISK>11.0 HIGH RISK Office Visiton 75-66-1989Qpriew-up [id number] Caden Wills 1960 M Date Provider Department Center 07/12/2024 SIMBA REYEZ [facility]OB [facility] Family History Problem Relation Age of Onset Coronary artery disease Father Family Status - Relation Status Age at Father Level of Service:[address] [place] OFFICE/OUTPATIENT ESTABLISHED MOD MDM 30 [facility]Bld[facility] [Mass fraction]on 02-07-2024 HbA1c (Bld) [Mass fraction]Hemoglobin A1c/Hemoglobin.total in Blood by HPLC [facility] CenterNo Panel Informationon 99-56-5884Zzfsmyo Sxcdzbd380GfvzjpjegTrinity Health System [facility] CenterTelemedicineon 81-16-5358Vzhvprikbqvh [id number] Caden Wills 1960 M Date Provider Department Center 01/23/2024 CAROLINE MARRERO HVCANTICOAG [place] [facility] Family History Problem Relation Age of Onset Coronary artery disease Father Family Status - Relation Status Age at Father Level of Service:NOCHG [place] 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NormalUniversKettering Memorial HospitalCholesterol in LDL Calc [Mass/Vol]on 42-61-7410Bkbinxxckoy in LDL [Mass/Vol]49.0 mg/dLTrinity Health System [facility] CenterComment on above:<100 mg/dl UZHDXSM219-945 mg/dl NEAR OR ABOVE HWCMENM959-746 mg/dl BORDERLINE SBES274-790 mg/dl HIGH>190 mg/dl VERY HIGHCholesterol in VLDL Calc [Mass/Vol]on 01-20-2024 Cholesterol in VLDL [Mass/Vol]26.6 mg/dLTrinity Health System [facility] Laboratory - Chemistry and Chemistry - challengeon 20-00-1940Agxddaqwbme [Mass/Vol]107 mg/dL<=200[facility] CenterCholesterol in HDL [Mass/Vol]32 mg/fWKnu20-12QvqzjgsevTrinity Health System [facility] CenterComment on above:> or =60 mg/dl - LOW CARDIOVASCULAR RISK<40 mg/dl - HIGH CARDIOVASCULAR RISK Triglyceride [Mass/Vol]133 mg/dL<=150[facility] CenterNo Panel Informationon 05-83-0077Tsgqxdvqyhdlf TestCOMMENT.[facility] CenterComment on above:Test Ordered: [id number] Apolipoprotein BApolipoprotein B 68 mg/dL BN Reference Range: <90 Desirable< 90 Borderline High 90 - 99 High 100 - 130 Very High >130 ASCVD RISK THERAPEUTIC TARGET CATEGORY APO B (mg/dL) Very High Risk <80 (if extreme risk <70) High Risk <90 Moderate Risk <90Performed at: [facility] [address] [place], [place] [id number] Director: Fletcher Patel MD, Phone: [phone] at: [facility] [id number] Director: Toy Conroy PhD, Phone: [phone] or plasma total cholesterol/high density lipoprotein (HDL) cholesterol mass evelyn 97-70-7809Qcmexpnwkan.total/Cholesterol in HDL [Mass ratio]3.3 {ratio}[facility] CenterComment on above:3.3 - 4.4 LOW RISK4.4 - 7.1 AVERAGE RISK7.1 - 11.0 MODERATE RISK>11.0 HIGH HOXA29gk 70-95-265466Sknifqrs by: CAROLINE SILVA on: 01/16/2024 12:14 PM Modules accepted: OrdersNormalUniversity of Memorial [facility]29Addended by: OPAL PEÑA on: 01/16/2024 10:44 AM Modules accepted: OrdersNormalUniversity of Memorial Hermann [facility] City Medical CenterCNPNon 29-45-0328YLFRGlnmryjit (BEATAN) CADEN WILLS ([id number]) 1960 M Date Time Provider Department 01/15/24 JADA WILKINS During your visit today, we recorded the following information about you: Jada Wilkins, JAKE.ASP NET DEVELOPER 01/15/2024 2:53 PM Signed ----- Message from Kourtney Sena sent at 01/15/2024 9:13 AM EDT ----- Regarding: Refill medication [facility] [place] [facility]ill request for Cephalexin - it is not on his current med list. Please advise and thank you, Kourtney Wilkins, Jada Sharma APRN.ASP NET DEVELOPER 01/15/2024 2:54 PM Signed See previous telephone encounter from 10/04/2023. Keflex has been on auto refill, and [facility] has already been asked to [facility] this request. Jada Wilkins APRN.ASP NET DEVELOPER Allergies As of Date: 01/15/2024 (No Known [...] Take 20 mEq by mouth. - omega 8-lzr-qyh-fish oil (FISH OIL) 100-160-1,000 mg cap Take [...] *07/27/2023 Encounter Status:Closed by JADA WILKINS on 01/15/24[facility] [id number] Caden Wills 1960 M Date Provider Department Center 01/15/2024 CAROLINE MARRERO [facility] [place] [facility] Family History Problem Relation Age of Onset Coronary artery disease Father Family Status - Relation Status Age at Father Reason for Visit and Comments: PharmD Cardiology Consult [Other][facility] HospitalCNPNon 27-84-8431JEJUHkjyrrjmr (BEATAN) CADEN WILLS ([id number]) 1960 M Date Time Provider Department 10/04/23 JADA WILKINS During your visit today, we recorded the following information about you: Jada Wilkins, JAKE.ASP NET DEVELOPER 10/04/2023 4:18 PM Signed ----- Message from Kourtney Hodge Patient Service Spec sent at 10/04/2023 7:36 AM EDT ----- Regarding: Medication refill [facility] faxed over a refill request for Cephalexin 500 mg- it is not listed in his med list . Please advise and thank you, Kourtney Wilkins, Jada Sharma APRN.ASP NET DEVELOPER 10/04/2023 4:25 PM Signed Keflex was prescribed for 1 month after buried penis surgery on 07/28/2023. Called Caden Wills. He reports trying to cancel refill [facility] for [facility] with [facility] but was unsuccessful. Denies concerns about infection. Reminded him that he should follow up with Dr. Alberto in the fall. Left voicemail at [facility] in [place], advising that Caden Wills does NOT need refill on Keflex and asking them to take it off auto refill. Jada Wilkins APRN.ASP NET DEVELOPER Allergies As of Date: 10/04/2023 (No Known [...] Take 20 mEq by mouth. - omega 3-wyc-ygd-fish oil (FISH OIL) 100-160-1,000 mg cap Take [...] *07/27/2023 Encounter Status:Closed by JADA WILKINS on 10/04/23NoLima City HospitalConsultation Noteon 57-21-3134Vmbwymifoybg Note [id number]#1.00[facility] CenterCNOVon 94-37-9078GLBSLkpqlk Visit (RICKEY) CADEN WILLS ([id number]) 1960 M Date Time Provider Department 09/13/23 [...] tablet Take 20 mEq by mouth. omega 2-qkk-yug-fish oil (FISH OIL) 100-160-1,000 mg cap Take 1,000 mg by mouth. No current facility-administered medications on file prior to visit. DATA/OR LABS TO BE REVIEWED: (Simple=1 data point; Complex= 2 or more) No results found for: PSA Creatinine (mg/dL) Date Value 07/29/2023 0.71 07/28/2023 0.75 07/27/2023 0.73 No results found for: TESTOST Noy Mary spray applicator Staff Note: I performed a face to [...] Jian Alberto MD Referring Provider: GIOVANNI MULLIGAN [[id number]] Allergies As of Date: 09/13/2023 (No Known [...] (TOUJEO MAX U-300 SOLOST (more content not included)...NormalUniversity Hospitals Samaritan Medical CenterOVon 19-86-1231QBVXQwjqbz Visit (RICKEY) CADEN WILLS ([id number]) 1960 M Date Time Provider Department 08/04/23 2:30 PM GIOVANNI MULLIGAN During your visit today, we recorded the following information about you: Weight Height 124.3 kg 1.778 m Giovanni Mulligan MD 08/04/2023 5:46 PM Signed HPI Caden Wick Elio is a 63 year old male with [...] Take 20 mEq by mouth. - omega 1-hcm-wtr-fish oil (FISH OIL) 100-160-1,000 mg cap Take [...] *07/27/2023 Encounter Status:Closed by GIOVANNI MULLIGAN on 08/04/23NormalCTrumbull Regional Medical CenterBaten broeck hospital metabolic 2000 panelon 72-31-6781Ypzun gap [Moles/Vol]14 mmol/L Normal9-18[facility] on above:Order Comment: Specimen Type: BLOOD SPECIMEN Ordering Facility: [facility] Address: [address] [place], [place] [address]Performed By: #### 61978-6 #### [facility] CLIA [id number] [address] [place] [address] [place] OF AMERICACalcium [Mass/Vol]8.9 mg/dL Normal8.5-10.2CMiddletown Hospital on above:Order Comment: Specimen Type: BLOOD SPECIMEN Ordering Facility: [facility] Address: [address] [place], [place] [address]Performed By: #### 22719-3 #### [facility] CLIA [id number] [address] [place] [address] [place] AMERICAChloride [Moles/Vol]102 mmol/DYbfkqp61-703GydghmiviWadsworth-Rittman Hospital on above:Order Comment: Specimen Type: BLOOD SPECIMEN Ordering Facility[facility] Address: [address] [place], [place] [address]Performed By: #### 74620-9 #### [facility] CLIA [id number] [address] [place] [address] [place] AMERICACO2 [Moles/Vol]23 mmol/L Eyaujk50-78NvjxlcjqlWadsworth-Rittman Hospital on above:Order Comment: Specimen Type: BLOOD SPECIMEN Ordering Facility[facility] Address: [address] [place], [place] [address]Performed By: #### 05128-4 #### [facility] CLIA [id number] [address] [place] [address] [place] AMERICACreatinine [Mass/Vol]0.71 mg/dLLow0.73-1.22[facility] on above:Order Comment: Specimen Type: BLOOD SPECIMEN Ordering Facility[facility] Address: [address] [place], [place] [address]Performed By: #### 49030-0 #### [facility] CLIA [id number] [address] [place] [address] [place] AMERICACreatinine and Glomerular filtration rate.predicted panel (S/P/Bld)104 mL/min/1.73m???Normal>=60[facility] on above:Order Comment: Specimen Type: BLOOD SPECIMEN Ordering Facility: [facility] Address: [address] [place], [place] [address]Result Comment: Estimated Glomerular Filtration Rate (eGFR) is [...] not accurately reflect actual GFR.Performed By: #### 02834-0 #### [facility] [place] [id number] [address] [place] [address] [place] AMERICAGlucose [Mass/Vol]173 mg/dL Elbg23-83MgukpbfihWadsworth-Rittman Hospital on above:Order Comment: Specimen Type: BLOOD SPECIMEN Ordering Facility: [facility] Address: [address] [place], [place] [address]Result Comment: The [place] Diabetes Association (ADA) provides guidance for cutoff [...] Standards of Medical Care in Diabetes 2016, [place] Diabetes Association. Diabetes Care. 2016.39(Suppl 1).Performed By: #### 48945-6 #### [facility] [place] [id number] [address] [place] [address] [place] AMERICAPotassium [Moles/Vol]4.3 mmol/LNormal3.7-5.1CMiddletown Hospital on above:Order Comment: Specimen Type: BLOOD SPECIMEN Ordering [facility] Address: [address] [place], [place] [address]Performed By: #### 94448-2 #### [facility] [place] [id number] [address] [place] [address] [place] AMERICASodium [Moles/Vol]139 mmol/L Iwjzea120-437AazhxmwmzWadsworth-Rittman Hospital on above:Order Comment: Specimen Type: BLOOD SPECIMEN Ordering [facility] Address: [address] [place], [place] [address]Performed By: #### 03428-2 #### [facility] CLIA [id number] [address] [place] [address] [place] AMERICAUrea nitrogen [Mass/Vol]18 mg/dLNormal9-24[facility] on above:Order Comment: Specimen Type: BLOOD SPECIMEN Ordering Facility[facility] Address: [address] [place], [place] [address]Performed By: #### 55252-8 #### [facility] CLIA [id number] [address] [place] [address] [place] AMERICACBC panel Auto (Bld)on 32-00-5658Ghjqtblnsfh distribution width (RBC) [Ratio]15.8 %High11.5-15.0 [facility] on above:Order Comment: Specimen Type: BLOOD SPECIMEN Ordering [facility] Address: [address] [place], [place] [address]Performed By: #### 35752-8 #### [facility] CLIA [id number] [address] [place] [address] [place] AMERICAHematocrit (Bld) [Volume fraction]44.7 %Veeioq75.0-51.0[facility] on above:Order Comment: Specimen Type: BLOOD SPECIMEN Ordering [facility] Address: [address] [place], [place] [address]Performed By: #### 87947-8 #### [facility] CLIA [id number] [address] [place], [place] [address] [place] OF AMERICAHemoglobin (Bld) [Mass/Vol] 14.5 g/qTAqbvmz56.0-17.0[facility] on above:Order Comment: Specimen Type: BLOOD SPECIMEN Ordering [facility] Address: [address] [place], [place] [address]Performed By: #### 01473-3 #### [facility] CLIA [id number] [address] [place], [place] [address]H (RBC) [Entitic mass]27.4 rgCkdqva10.0-34.0[facility] on above:Order Comment: Specimen Type: BLOOD SPECIMEN Ordering [facility] Address: [address] [place], [place] [address]Performed By: #### 82965-4 #### [facility] CLIA [id number] [address] [place] [address] (RBC) [Mass/Vol]32.4 g/yRJrrxoj84.5-36.0[facility] on above:Order Comment: Specimen Type: BLOOD SPECIMEN Order[facility] Address: [address] [place], [place] [address]Performed By: #### 72366-1 #### [facility] CLIA [id number] [address] [place], [place] [address]V (RBC) [Entitic vol]84.3 rEQupjqz99.0-100.0[facility] on above:Order Comment: Specimen Type: BLOOD SPECIMEN Order[facility] Address: [address] [place], [place] [address]Performed By: #### 23339-0 #### [facility] CLIA [id number] [address] [place] [address] RBC (Bld) [#/Vol] 10*3/uLNormal<0.01[facility] on above:Order Comment: Specimen Type: BLOOD SPECIMEN Order[facility] Address: [address] [place], [place] [address]Performed By: #### 50338-2 #### [facility] CLIA [id number] [address] [place], [place] [address]Platelet mean volume (Bld) [Entitic vol]9.6 fLNormal9.0-12.7CMiddletown Hospital on above: Order Comment: Specimen Type: BLOOD SPECIMEN [facility] Address: [address] [place], [place] [address]Performed By: #### 96380-5 #### [facility] CLIA [id number] [address] [place] [address] AMERICAPlatelets (Bld) [#/Vol]268 10*3/wTKqggyx750-199BdwwfyuvcWadsworth-Rittman Hospital on above:Order Comment: Specimen Type: BLOOD SPECIMEN [facility] Address: [address] [place], [place] [address]Performed By: #### 71215-3 #### [facility] CLIA [id number] [address] [place], [place] [address]RB (Bld) [#/Vol]5.30 10*6/uLNormal4.20-6.00[facility] on above:Order Comment: Specimen Type: BLOOD SPECIMEN [facility] Address: [address] [place], [place] [address]Performed By: #### 76091-3 #### [facility] CLIA [id number] [address] [place], [place] [address]W (Bld) [#/Vol]13.43 10*3/uLHigh3.70-11.00[facility] on above:Order Comment: Specimen Type: BLOOD SPECIMEN Order[facility] Address: [address] [place], [place] [address]Performed By: #### 29452-4 #### [facility] CLIA [id number] [address] [place], [place] [address]CNDSon [id number] ID: [id number] Author: JIAN ALBERTO MD Service: Urology Author Type: Resident Type: Discharge Summary Filed: 07/29/2023 12:28 Note Text: Attestation signed by Jian Alberto MD at 07/29/2023 12:28 PM Discussed with resident, agree with claudia Alberto M.D. 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) Operations During Hospitalization: CYSTOSCOPY FLEXIBLE: 61159 (CPT?) SCROTOPLASTY V-Y: 73384 (CPT?) EXCISION, EXCESSIVE SKIN AND SUBCUTANEOUS TISSUE, OTHER AREA prepubic lipectomy with fixation of skin to pubic region: 50461 (CPT?) EXCISION LYSIS PENILE POST-CIRCUMCISION ADHESIONS: 77187 (CPT?) Procedures Performed While Hospitalized: Intubation Reason [...] OiL 100-160-1,000 mg Cap Generic drug: omega 2-jjd-rgw-fish oil insulin aspart U-100 100 unit/mL Commonly [...] [facility] [address] [phone] [place] [id number] acetaminophen 325 mg tablet cephALEXin 500 mg capsule docusate sodium 100 mg capsule oxyCODONE IR 5 mg immediate release tablet Future Appointments: No future appointments. Electronically STEPHANIE (more content not included)...NormalOhiohealth Hardin Memorial HospitalANES POSTPROC EVALon 21-58-5584PHTT POSTPROC EVALHNO ID: [id number] Author: CHILANGO CURIEL MD Service: ? Author Type: Anesthesiologist Type: Anesthesia Postprocedure Evaluation Filed: 07/28/2023 13:45 Note Text: POST ANESTHESIA EVALUATION NOTE : 1960 Procedure Summary Date: 07/28/23 Room / Location: [address] [facility] Anesthesia Start: 0950 Anesthesia [...] July 28, 2023 TIME: 1:45 PM CSN: [id number] [facility] PRE-OPon 42-61-0363RUOL PRE-OPHNO ID: [id number] Author: CHILANGO CURIEL MD Service: ? Author [...] artery disease involving coronary bypass graft of [place] heart without angina pectoris (+) Paroxysmal atrial [...] ?F) 07/28/23 0751 SpO2 96 % 07/28/23 0751 Facility-Administered Medications as of 07/28/2023 Medication Dose [...] Take 20 mEq by mouth. - omega 9-pzq-pnv-fish oil (FISH OIL) 100-160-1,000 mg cap Take 1,000 mg by mouth. I have interviewed and examined the patient. I have reviewed the medical record and/or the pre-anesthesia evaluation, pertinent labs, and test results. This contains updated information obtained within 48 hours of Surgery/Procedure. SIGNATURE: Chilango Curiel MD PATIENT NAME: Caden Wills DATE: July 28, 2023 TIME: 9:53 AM CSN: [id number]-[facility] OP NOTon [id number] OP NOTHNO ID: [id number] Author: JUICE GEE MD Service: Urology Author Type: Resident Type: Brief Op Note Filed: 07/28/2023 12:38 Note Text: BRIEF OPERATIVE / PROCEDURE NOTE LOG ID: [id number] SURGERY/PROCEDURE DATE: 07/28/2023 INCISION/PROCEDURE START TIME: 10:32 AM INCISION CLOSE/PROCEDURE END TIME: 12:25 PM SURGEON(S)/PROCEDURALIST(S) AND BURLAP MAN(S): Surgeon(s) and Role: * Jian Alberto MD [...] Wills DATE: July 28, 2023 TIME: 12:36 PMNormalOhiohealth Hardin Memorial HospitalBaten broeck hospital metabolic 2000 panelon 21-75-1768Uxvmh gap [Moles/Vol]13 mmol/LNormal9-18[facility] Comment on above:Order Comment: Specimen Type: BLOOD SPECIMEN [facility] Address: [address] [place], [place] [address]Performed By: #### 61944-7 #### [facility] CLIA [id number] [address] [place] [address] [place] AMERICACalcium [Mass/Vol]9.3 mg/dL Normal8.5-10.2CMiddletown Hospital on above:Order Comment: Specimen Type: BLOOD SPECIMEN [facility] Address: [address] [place], [place] [address]Performed By: #### 36087-4 #### [facility] CLIA [id number] [address] [place] [address] [place] AMERICAChloride [Moles/Vol]104 mmol/VWfjexf31-419LqidmotlzWadsworth-Rittman [facility] on above:Order Comment: Specimen Type: BLOOD SPECIMEN [facility] Address: [address] [place], [place] [address]Performed By: #### 14477-8 #### [facility] CLIA [id number] [address] [place] [address] [place] OF AMERICACO2 [Moles/Vol]23 mmol/L Sttrom63-44SdckaqeulWadsworth-Rittman Hospital on above:Order Comment: Specimen Type: BLOOD SPECIMEN [facility] Address: [address] [place], [place] [address]Performed By: #### 86715-1 #### [facility] CLIA [id number] [address] [place] [address] [place] AMERICACreatinine [Mass/Vol]0.75 mg/dLNormal0.73-1.22[facility] on above:Order Comment: Specimen Type: BLOOD SPECIMEN [facility] Address: [address] [place], [place] [address]Performed By: #### 32473-6 #### [facility] CLIA [id number] [address] [place] [address] OF AMERICACreatinine and Glomerular filtration rate.predicted panel (S/P/Bld)103 mL/min/1.73m???Normal>=60[facility] on above:Order Comment: Specimen Type: BLOOD SPECIMEN [facility] Address: [address] [place], [place] [address]Result Comment: Estimated Glomerular Filtration Rate (eGFR) is [...] not accurately reflect actual GFR.Performed By: #### 42893-4 #### [facility] CLIA [id number] [address] [place] [address] [place] AMERICAGlucose [Mass/Vol]182 mg/dL Zpyh36-80SlckftdkfWadsworth-Rittman Hospital on above:Order Comment: Specimen Type: BLOOD SPECIMEN [facility] Address: [address] [place], [place] [address]Result Comment: The [place] Diabetes Association (ADA) provides guidance for cutoff [...] Standards of Medical Care in Diabetes 2016, [place] Diabetes Association. Diabetes Care. 2016.39(Suppl 1).Performed By: #### 13088-1 #### [facility] IA [id number] [address] [place] [address] [place] AMERICAPotassium [Moles/Vol]4.7 mmol/LNormal3.7-5.1CMiddletown Hospital on above:Order Comment: Specimen Type: BLOOD SPECIMEN [facility] Address: [address] [place], [place] [address]Performed By: #### 44818-3 #### [facility] CLIA [id number] [address] [place] [address] [place] AMERICASodium [Moles/Vol]140 mmol/L Mupujg558-304HttwtvtyqWadsworth-Rittman Hospital on above:Order Comment: Specimen Type: BLOOD SPECIMEN [facility] Address: [address] [place], [place] [address]Performed By: #### 14401-1 #### [facility] CLIA [id number] [address] [place] [address] [place] AMERICAUrea nitrogen [Mass/Vol]16 mg/dLNormal9-24[facility] on above:Order Comment: Specimen Type: BLOOD SPECIMEN [facility] Address: [address] [place], [place] [address]Performed By: #### 44253-7 #### [facility] CLIA [id number] [address] [place], [place] [address] [place] OF AMERICACBC panel Auto (Bld)on 54-53-1947Tmdgpvlaoue distribution width (RBC) [Ratio]17.2 %High11.5-15.0 [facility] on above:Order Comment: Specimen Type: BLOOD SPECIMEN [facility] Address: [address] [place], [place] [address]Performed By: #### 76971-1 #### [facility] CLIA [id number] [address] [place] [address] [place] AMERICAHematocrit (Bld) [Volume fraction]50.7 %Frtbzo15.0-51.0[facility] on above:Order Comment: Specimen Type: BLOOD SPECIMEN [facility] Address: [address] [place], [place] [address]Performed By: #### 45410-9 #### [facility] IA [id number] [address] [place] [address] [place] AMERICAHemoglobin (Bld) [Mass/Vol] 16.6 g/fXLvuqnp35.0-17.0[facility] on above:Order Comment: Specimen Type: BLOOD SPECIMEN [facility] Address: [address] [place], [place] [address]Performed By: #### 71688-9 #### [facility] CLIA [id number] [address] [place] [address] [place] AMERICAMCH (RBC) [Entitic mass]27.7 itVthgmz41.0-34.0[facility] on above:Order Comment: Specimen Type: BLOOD SPECIMEN [facility] Address: [address] [place], [place] [address]Performed By: #### 33998-9 #### [facility] IA [id number] [address]MCHC (RBC) [Mass/Vol]32.7 g/dBPtbcey73.5-36.0[facility] on above:Order Comment: Specimen Type: BLOOD SPECIMEN [facility] Address: [address] [place], [place] [address]Performed By: #### 56541-9 #### [facility] CLIA [id number] [address] [place], [place] [address]MCV (RBC) [Entitic vol]84.6 dQYgigpk49.0-100.0[facility] on above:Order Comment: Specimen Type: BLOOD SPECIMEN [facility] Address: [address] [place], [place] [address]Performed By: #### 27975-8 #### [facility] CLIA [id number] [address] [place] [address] AMERICANucleated RBC (Bld) [#/Vol] 10*3/uLNormal<0.01[facility] on above:Order Comment: Specimen Type: BLOOD SPECIMEN [facility] Address: [address] [place], [place] [address]Performed By: #### 03931-8 #### [facility] CLIA [id number] [address] [place] [address] [place] AMERICAPlatelet mean volume (Bld) [Entitic vol]9.5 fLNormal9.0-12.7CMiddletown Hospital on above: Order Comment: Specimen Type: BLOOD SPECIMEN [facility] Address: [address] [place], [place] [address]Performed By: #### 82970-6 #### [facility] CLIA [id number] [address] [place] [address] [place] AMERICAPlatelets (Bld) [#/Vol]284 10*3/sOGiegam407-120Urpuqdgbt Clinic ClevelandComment on above:Order Comment: Specimen Type: BLOOD SPECIMEN [facility] Address: [address] [place], [place] [address]Performed By: #### 78603-5 #### [facility] CLIA [id number] [address] [place] [address] AMERICARB (Bld) [#/Vol]5.99 10*6/uLNormal4.20-6.00[facility] on above:Order Comment: Specimen Type: BLOOD SPECIMEN [facility] Address: [address] [place], [place] [address]Performed By: #### 49807-1 #### [facility] CLIA [id number] [address] [place], [place] [address]W (Bld) [#/Vol]10.10 10*3/uLNormal3.70-11.00[facility] on above:Order Comment: Specimen Type: BLOOD SPECIMEN [facility] Address: [address] [place], [place] [address]Performed By: #### 47756-2 #### [facility] CLIA [id number] [address] [place] [address] PROGon 07-28-2023 NURSING PRONO ID: [id number] Author: DAVID MCLAUGHLIN, RN Service: ? Author Type: Registered Nurse Type: Nursing Progress Note Filed: 07/28/2023 14:53 Note Text: Admission/Transfer Note PATIENT NAME: Caden Wills Patient Location: [place] [address]/[id number]- Room: [place] [address] Patient admitted from PACU via bed in stable condition. Actions taken: Patient oriented to room, call light function, prescribed activities, Patient rights, and Quiet at night. Patient belongings with patient. This note was completed by: David GonzalezLake County [facility] PATHOLOGYon [id number] REPORTNormalCMiddletown Hospital on above:Order Comment: Specimen Type: BLOOD SPECIMEN [facility] Address: [address] [place] [address] Comment: Surgical Pathology Report Case: [id number] Authorizing Provider: Jian Alberto MD Collected: 07/28/2023 10:42 AM Ordering Location: Admitting Received: 07/28/2023 12:18 PM Pathologist: Rajat Corbin MD Specimen: Soft Tissue (Not otherwise specified), penile skinPerformed By: #### 97943-0 #### [facility] CLIA [id number] [address] [place] [address] [place] AMERICACLINICAL HISTORYNormal [facility] on above:Order Comment: Specimen Type: BLOOD SPECIMEN [facility] Address: [address] [place] [address] Comment: 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 An immunohistochemical stain for T. pallidum is negative. These findings support the above diagnosis. Laboratory Developed Test (LDT) Disclaimer: Performance characteristics of immunohistochemical, immunofluorescent and chromogenic in-situ hybridization tests have been determined by the performing laboratory within [facility]???s [place] Pathology and Laboratory Medicine Department ([facility], [facility], [facility], [facility], [facility], [facility], or [facility]) in a manner consistent with CLIA requirements. One or more of these tests havenot been cleared or approved by the FDA. [facility] is regulated under CLIA as qualified to perform high-complexity testing. These tests are used for clinical purposes. They should not be regarded as investigational or for research. Positive and negative controls stain appropriately.Performed By: #### 40960-7 #### [facility] CLIA [id number] [address] [place] [address] on above:Order Comment: Specimen Type: BLOOD SPECIMEN Order[facility] Address: [address] [place], [place] [address]Result Comment: Penile skin, excision: - Benign skin with acute and chronic inflammation and rare fungal organisms morphologically consistent with Sydnee species. Performed By: #### 05777-4 #### [facility] CLIA [id number] [address] [place] [address] LABNoMercy Health [facility] on above:Order Comment: Specimen Type: BLOOD SPECIMEN [facility] Address: [address] [place], [place] [address]Result Comment: Diagnostic interpretation performed at [facility], [address] [place], [place] [id number] CLIA# [id number] Multimedia Teacher: Jose Power M.D.Performed By: #### 00080-4 #### [facility] CLIA [id number] [address] [place] [address] DESCRIPTIONOhioHealth Nelsonville Health Center on above:Order Comment: Specimen Type: BLOOD SPECIMEN [facility] Address: [address] [place], [place] [address]Result Comment: A. Soft Tissue (Not otherwise specified) Received fresh labeled penile skin is a rectangular excision of pink skin measuring 4.5 x 2.5 x 0.3 cm. The skin surface is smooth and glistening without lesion. The resection margin is cauterized and roughened. The cut surfaces are soft and glistening. Case Liner sections are submitted in cassette A1. OLIVA July 28, 2023 12:39 PM Gross examination performed at [facility], [address] [place] [address] CLIA# [id number] By: #### 35767-9 #### [facility] CLIA [id number] [address] [place] [address] STATES OF AMERICACBC panel Auto (Bld)on 16-47-3567Ssdofcbxioj distribution width (RBC) [Ratio]16.1 %High11.5-15.0 [facility] on above:Order Comment: Specimen Type: BLOOD SPECIMEN [facility] Address: [address] [place], [place] [address]Performed By: #### 92067-9 #### [facility] CLIA [id number] [address] [place] [address] STATES OF AMERICAHematocrit (Bld) [Volume fraction]51.6 %High39.0-51.0[facility] on above:Order Comment: Specimen Type: BLOOD SPECIMEN [facility] Address: [address] [place], [place] [address]Performed By: #### 20867-2 #### [facility] CLIA [id number] [address] [place] [address] [place] AMERICAHemoglobin (Bld) [Mass/Vol] 16.6 g/yQPdfpss11.0-17.0[facility] on above:Order Comment: Specimen Type: BLOOD SPECIMEN [facility] Address: [address] [place] [address]Performed By: #### 21984-9 #### [facility] CLIA [id number] [address] [place] [address] [place] AMERICAMCH (RBC) [Entitic mass]27.6 cuTfpnqd83.0-34.0[facility] on above:Order Comment: Specimen Type: BLOOD SPECIMEN [facility] Address: [address] [place], [place] [address]Performed By: #### 53478-1 #### [facility] CLIA [id number] [address] [place], [place] [address]MCHC (RBC) [Mass/Vol]32.2 g/nYOjguyf11.5-36.0[facility] on above:Order Comment: Specimen Type: BLOOD SPECIMEN [facility] Address: [address] [place], [place] [address]Performed By: #### 76779-4 #### [facility] CLIA [id number] [address] [place] [address] STATES OF [facility] CLEVEL[facility] EASTMCV (RBC) [Entitic vol]85.7 vHPjjsdp08.0-100.0[facility] on above:Order Comment: Specimen Type: BLOOD SPECIMEN [facility] Address: [address] [place] [address]Performed By: #### 23024-5 #### [facility] CLIA [id number] [address] [place], [place] [address]ucleated RBC (Bld) [#/Vol] 10*3/uLNormal<0.01[facility] on above:Order Comment: Specimen Type: BLOOD SPECIMEN [facility] Address: [address] [place] [address]Performed By: #### 15814-0 #### [facility] CLIA [id number] [address] [place] [address] [facility], MANHATTANPlatelet mean volume (Bld) [Entitic vol]10.3 fLNormal9.0-12.7CMiddletown Hospital on above: Order Comment: Specimen Type: BLOOD SPECIMEN [facility] Address: [address] [place], [place] [address]Performed By: #### 08718-4 #### [facility] CLIA [id number] [address] [place], [place] [address]Platelets (Bld) [#/Vol]264 10*3/rXWcwoki437-747DbvirthabWadsworth-Rittman Hospital on above:Order Comment: Specimen Type: BLOOD SPECIMEN [facility] Address: [address] [place], [place] [address]Performed By: #### 16458-8 #### [facility] CLIA [id number] [address] [place], [place] [address]RB (d) [#/Vol]6.02 10*6/uLHigh4.20-6.00[facility] on above:Order Comment: Specimen Type: BLOOD SPECIMEN [facility] Address: [address] [place] [address]Performed By: #### 83594-9 #### [facility] IA [id number] [address] [place], [place] [address]W (Bld) [#/Vol]10.12 10*3/uLNormal3.70-11.00[facility] on above:Order Comment: Specimen Type: BLOOD SPECIMEN [facility] Address: [address] [place], [place] [address]Performed By: #### 45234-8 #### [facility] IA [id number] [address] [place] [address] [place] AMERICAComprehensive metabolic 2000 panelon 58-70-9308Fibfxnu [Mass/Vol]4.3 g/dLNormal3.9-4.9CMiddletown Hospital on above:Order Comment: Specimen Type: BLOOD SPECIMEN [facility] Address: [address] [place], [place] [address]Performed By: #### 95268-7 #### [facility] CLIA [id number] [address] [place] [address] [place] OF AMERICAALP [Catalytic activity/Vol] 100 U/FMimqgt86-955TmcyyeqmbWadsworth-Rittman Hospital on above:Order Comment: Specimen Type: BLOOD SPECIMEN [facility] Address: [address] [place], [place] [address]Performed By: #### 28592-4 #### [facility] CLIA [id number] [address] [place], [place] [address] [place] AMERICAALT [Catalytic activity/Vol] 33 U/TZcdrfv57-42FxiunhczcWadsworth-Rittman Hospital on above:Order Comment: Specimen Type: BLOOD SPECIMEN [facility] Address: [address] [place], [place] [address]Performed By: #### 34183-1 #### [facility] CLIA [id number] [address] [place] [address] [place] AMERICAAnion gap [Moles/Vol]14 mmol/LNormal9-18[facility] on above:Order Comment: Specimen Type: BLOOD SPECIMEN [facility] Address: [address] [place] [address]Performed By: #### 01968-9 #### [facility] CLIA [id number] [address] [place], [place] [address] [place] OF AMERICAAST [Catalytic activity/Vol] 26 U/ECdxtyt70-80AoettfglcWadsworth-Rittman Hospital on above:Order Comment: Specimen Type: BLOOD SPECIMEN [facility] Address: [address] [place], [place] [address]Performed By: #### 78185-8 #### [facility] CLIA [id number] [address] [place] [address] [place] OF AMERICABilirubin [Mass/Vol]0.2 mg/dLNormal0.2-1.3CMiddletown Hospital on above:Order Comment: Specimen Type: BLOOD SPECIMEN [facility] Address: [address] [place], [place] [address]Performed By: #### 27558-3 #### [facility] CLIA [id number] [address] [address] [place] OF AMERICACalcium [Mass/Vol]10.5 mg/dL High8.5-10.2CMiddletown Hospital on above:Order Comment: Specimen Type: BLOOD SPECIMEN [facility] Address: [address] [place], [place] [address]Performed By: #### 15524-4 #### [facility] CLIA [id number] [address] [place], [place] [address] [place] OF AMERICAChloride [Moles/Vol]101 mmol/HSwzmxn06-739BsqbcqokdWadsworth-Rittman Hospital on above:Order Comment: Specimen Type: BLOOD SPECIMEN [facility] Address: [address] [place], [place] [address]Performed By: #### 20853-7 #### [facility] CLIA [id number] [address] [place] [address] [place] AMERICACO2 [Moles/Vol]25 mmol/L Zvsoiz68-34YajjczupoWadsworth-Rittman Hospital on above:Order Comment: Specimen Type: BLOOD SPECIMEN [facility] Address: [address] [place], [place] [address]Performed By: #### 84860-4 #### [facility] CLIA [id number] [address] [place] [address] [place] OF AMERICACreatinine [Mass/Vol]0.73 mg/dLNormal0.73-1.22[facility] on above:Order Comment: Specimen Type: BLOOD SPECIMEN [facility] Address: [address] [place], [place] [address]Performed By: #### 36842-4 #### [facility] CLIA [id number] [address] [place] [address] [place] AMERICACreatinine and Glomerular filtration rate.predicted panel (S/P/Bld)104 mL/min/1.73m???Normal>=60[facility] on above:Order Comment: Specimen Type: BLOOD SPECIMEN [facility] Address: [address] [place], [place] [address]Result Comment: Estimated Glomerular Filtration Rate (eGFR) is [...] not accurately reflect actual GFR.Performed By: #### 65357-6 #### [facility] CLIA [id number] [address] [place] [address] [place] AMERICAGlucose [Mass/Vol]82 mg/dL Cbgntv31-30PmosvgbgjWadsworth-Rittman Hospital on above:Order Comment: Specimen Type: BLOOD SPECIMEN [facility] Address: [address] [place] [address] Comment: The [place] Diabetes Association (ADA) provides guidance for cutoff [...] Standards of Medical Care in Diabetes 2016, [place] Diabetes [employer]. Diabetes Care. 2016.39(Suppl 1).Performed By: #### 17586-2 #### [facility] CLIA [id number] [address] [place] [address] [place] AMERICAPotassium [Moles/Vol]4.1 mmol/LNormal3.7-5.1CMiddletown Hospital on above:Order Comment: Specimen Type: BLOOD SPECIMEN [facility] Address: [address] [place], [place] [address]Performed By: #### 09282-9 #### [facility] CLIA [id number] [address] [place] [address] [place] AMERICAProtein [Mass/Vol]7.6 g/dL Normal6.3-8.0[facility] on above:Order Comment: Specimen Type: BLOOD SPECIMEN [facility] Address: [address] [place], [place] [address]Performed By: #### 16114-2 #### [facility] CLIA [id number] [address] [place] [address] [place] AMERICASodium [Moles/Vol]140 mmol/L Upwziy668-151XsbbycjvuWadsworth-Rittman Hospital on above:Order Comment: Specimen Type: BLOOD SPECIMEN [facility] Address: [address] [place], [place] [address]Performed By: #### 97007-2 #### [facility] CLIA [id number] [address] [place] [address] [place] AMERICAUrea nitrogen [Mass/Vol]17 mg/dLNormal9-24[facility] on above:Order Comment: Specimen Type: BLOOD SPECIMEN [facility] Address: [address] [place] [address]Performed By: #### 70502-3 #### [facility] CLIA [id number] [address] [place] [address] [place] AMERICAErythrocyte distribution width Auto (RBC) [Ratio]on 05-23-6917Xsfwcbnbbvk distribution width (RBC) [Ratio]16.1 %High11.5-15.0[facility] Medical CenterGlucose mean value [Mass/volume] in Blood Estimated from glycated hemoglobinon 80-09-1424[place] glucose Estimated from glycated hemoglobin (Bld) [Mass/Vol]157 mg/dLTrinity Health System Twin City Medical CenterComment on above:eAG: (Estimated average glucose) is a calculated value from HgbA1c and is outbound call center representative of the average blood glucose level in the last 2-3 month period.HISTORY PHYSICALon 43-26-8922HQIASOL PHYSICAL HNO ID: [id number] Author: KEVIN GOLDSMITH APRN.[employer] DEVELOPER Service: ? Author Type: Nurse Practitioner Type: [...] artery disease involving coronary bypass graft of [place] heart without angina pectoris CAD, hx of DE s/p CABG x 5 in Dec 2021. [...] cardiac events (< 1% chance of , DE, CHF, malignant ventricular arrhythmias or high grade [...] note 06/19/23 notes the following, Echo 03/30/22 ([facility]) - Global LV systolic function is [...] have a large neck STOP-Bang Score: 5 HDT3JU3-FNMw Score: Age: <65 Sex: male CHF history: Yes Hypertension history: Yes Stroke/TIA/thromboembolism history: No Vascular disease history: Yes Diabetes history: Yes LRZ6TQ4-QOEd Score: 4 ARISCAT Score: Age: 51-80 Preoperative [...] DOS review of labs. (more content not included)...NormalOhiohealth Hardin Memorial HospitalHbA1c (Bld)on 07-03-8631Anaqmkm glucose Estimated from glycated hemoglobin (Bld) [Mass/Vol]157 mg/dLDiley Ridge Medical CenterHbA1c (Bld) [Mass fraction]7.1 %High4.3 - 5.6 %[facility] glucose Estimated from glycated hemoglobin (Bld) [Mass/Vol]157 mg/dLNormalCMiddletown Hospital on above:Order Comment: Specimen Type: BLOOD SPECIMEN [facility] Address: [address] [place], [place] [address]Result Comment: eAG: (Estimated average glucose) is a calculated value from HgbA1c and is outbound call center representative of the average blood glucose level in the last 2-3 month period.Performed By: #### 96534-9 #### [facility] CLIA [id number] [address] [place], [place] [address]K [address] STATES OF ADIHLOULcI7a (Bld) [Mass fraction] 7.1 %High4.3-5.6CMiddletown Hospital on above:Order Comment: Specimen Type: BLOOD SPECIMEN Ordering Facility: [facility] Address: [address] [place], [place] [address]Result Comment: [place] Diabetes Association guidelines indicate that patients with HgbA1c in the range 5.7-6.4% are at increased risk for development of diabetes, and intervention by lifestyle modification may be beneficial. HgbA1c greater or equal to 6.5% is considered diagnostic of diabetes.Performed By: #### 88689-5 #### [facility] CLIA [id number] [address] [place] [address] [place] STATES OF AMERICAHematocrit Auto (Bld) [Volume fraction]on 15-95-7898Wkjgsjclta (Bld) [Volume fraction]51.6 %High 39.0-51.0[facility] Medical CenterHemoglobin [Mass/volume] in Bloodon 00-92-5918Eusurjsoju (Bld) [Mass/Vol]16.6 g/dL13.0-17.0[facility] CenterLaboratory - Chemistry and Chemistry - challengeon 07-27-2023 Albumin [Mass/Vol]4.3 g/dL3.9-4.9[facility] CenterALP [Catalytic activity/Vol]100 U/D94-722UtlbqtteeTrinity Health System Twin City Medical CenterALT [Catalytic activity/Vol]33 U/Q03-70OfwucisciTrinity Health System Twin City Medical CenterAST [Catalytic activity/Vol]26 U/R23-68KqzjjtigbTrinity Health System Twin City Medical CenterBilirubin [Mass/Vol]0.2 mg/dL0.2-1.3FOur Lady of Mercy HospitalCalcium [Mass/Vol]10.5 mg/dLHigh 8.5-10.2FOur Lady of Mercy HospitalChloride [Moles/Vol]101 mmol/L97-105 [facility] Medical CenterCO2 [Moles/Vol]25 mmol/B48-32EmldkhypnTrinity Health System Twin City Medical CenterCreatinine [Mass/Vol]0.73 mg/dL0.73-1.22[facility] Medical CenterGlucose [Mass/Vol]82 mg/oT64-51PsmynipiaTrinity Health System [facility] Center Comment on above:The [place] Diabetes Association (ADA) provides guidance for cutoff [...] diabetes.Reference: Standardsof Medical Care in Diabetes 2016, [place] Diabetes Association. Diabetes Care. 2016.39(Suppl 1).Potassium [Moles/Vol]4.1 mmol/L3.7-5.1FSCCI Hospital Limaodium [Moles/Vol]140 mmol/E587-258YbqyqycvkTrinity Health System Twin City Medical CenterUrea nitrogen [Mass/Vol]17 mg/dL9-24[facility] CenterLaboratory - Hematology and Cell countson 84-43-7681QpX4d (Bld) [Mass fraction]7.1 %High4.3-5.6FOur Lady of Mercy HospitalComment on above: [place] Diabetes Association guidelines indicate that patients with HgbA1c in the range 5.7-6.4% are at increased risk for development of diabetes, and intervention by lifestyle modification may be beneficial. HgbA1c greater or equal to 6.5% is considered diagnostic of diabetes.Leukocytes [#/volume] corrected for nucleated erythrocytes in Blood by Automated counon 88-21-8874HPO corrected for nucl RBC Auto (Bld) [#/Vol]10.12 k/uL3.70-11.00[facility] Medical CenterH Auto (RBC) [Entitic mass]on 75-86-1330IRX (RBC) [Entitic mass] 27.6 pg26.0-34.0[facility] Medical CenterMCHC Auto (RBC) [Mass/Vol]on 80-17-9165DNJY (RBC) [Mass/Vol]32.2 g/dL30.5-36.0[facility] Medical CenterMCV Auto (RBC) [Entitic vol]on 95-63-8120FUX (RBC) [Entitic vol]85.7 fL 80.0-100.0[facility] CenterNo Panel Informationon 07-27-2023 Estimated GFR (CKD-EPI)104 mL/min/1.73m???>=60[facility] Comment on above:Estimated Glomerular Filtration Rate (eGFR) [...] reflect actual GFR.Nucleated RBC Auto (Bld) [#/Vol]on 90-78-4911Jkwfhgiab RBC (Bld) [#/Vol]10*3/uL<0.01[facility] Medical CenterPlatelet mean volume Auto (Bld) [Entitic vol]on 06-68-8603Kjiufyua mean volume (Bld) [Entitic vol]10.3 fL9.0-12.7FOur Lady of Mercy HospitalPlatelets Auto (Bld) [#/Vol]on 61-64-1028Zxpjgnjtn (Bld) [#/Vol]264 10*3/bL129-809AhkriefijTrinity Health System Twin City Medical CenterProtein [Mass/volume] in Serum or Plasmaon 62-77-1028Xbfzgix [Mass/Vol]7.6 g/dL6.3-8.0[facility] Medical CenterRBC Auto (Bld) [#/Vol]on 28-37-3168VUU (Bld) [#/Vol]6.02 10*6/uLHigh4.20-6.00[facility] Centererum or plasma anion gap determinationon 34-71-4316Gdsco gap [Moles/Vol]14 mmol/L9-18FOur Lady of Mercy HospitalCNPNon 93-47-3507OACPUbqvcawxx (RICKEY) CADEN WILLS ([id number]) 1960 M Date Time Provider Department 07/18/23 [...] round with a 6:00 arrival time at [facility]. States that he will be going home after pre ops on 07/26 and coming back the following day. No other questions or concerns expressed. Noy Mary RN Allergies As of Date: 07/18/2023 (No Known Allergies) Date Reviewed: 06/19/2023 Reviewed by: Jessica Ordaz RN - Fully Assessed Reason for Visit: Copper Etcher - Other [3602] Prescriptions as of 07/18/2023 [...] Take 20 mEq by mouth. - omega 0-hzy-aeh-fish oil (FISH OIL) 100-160-1,000 mg cap Take 1,000 mg by mouth. - bumetanide (BUMEX ORAL) Take by mouth. 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] 05/03/2023 Scarring of penis [N48.6] 05/03/2023 Erectile dysfunction associated with type 2 beverley*05/03/2023 Encounter Status:Closed by NOY MARY on 07/18/23NoLima City HospitalHbA1c HPLC (Bld) [Mass fraction]on 38-15-6822YrG3w (Bld) [Mass fraction]7.4 %[facility] CenterNo Panel Informationon 06-21-2023 Bedside Rmdwnrr669NqodvjjkiTrinity Health System Twin City Medical CenterCNPNon 71-99-5249YLZK Telephone (UROCARMEN) CADEN WILLS ([id number]) 1960 M Date Time Provider Department 06/20/23 NOY MARY During your visit today, we recorded the following information about you: Noy Mary RN 06/20/2023 12:26 PM Signed Called Caden [facility]ills and [facility] to confirm surgery date of 07/[address] Alberto. Discussed pre op testing on 07/26 in [place]. Cardiology clearance appointment on 06/18 with Ligia Colmenares MD Local cardiology clearance appointment on 06/18 with Simba Kasper MD ([facility] - ph [phone], fx [phone]) Will send urine culture via regular mail [...] RN - Fully Assessed Reason for Visit: Copper Etcher - Other [0707] Prescriptions as of 06/20/2023 - insulin glargine [...] Take 20 mEq by mouth. - omega 2-drq-gkq-fish oil (FISH OIL) 100-160-1,000 mg cap Take 1,000 mg by mouth. - bumetanide (BUMEX ORAL) Take by mouth. 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] 05/03/2023 Scarring of penis [N48.6] 05/03/2023 Erectile dysfunction associated with type 2 beverley*05/03/2023 Encounter Status:Closed by NOY MARY on 06/20/23NormalCHolmes County Joel [facility] 46-12-2070JSZPWdiaxc TextNormGalion Community Hospital 60-80-9221YAJLArvhtm Visit (CARD) CADEN WILLS ([id number]) 1960 M Date Time Provider Department 06/19/23 1:00 PM LIGIA COLMENARES [facility] During your visit today, we recorded the following information about you: Pulse Blood pressure Weight 68/minute 112/68 124.3 kg Ligia Colmenares MD 06/19/2023 1:23 PM Signed [facility] [place] Rob [place] Department of Cardiovascular Medicine SECTION [...] METs). 12/06/2022 Robyn Miller Cardiology- [facility] HPI Pleasant 62-year-old man with prior history of coronary disease status post percutaneous intervention to chronically occluded LAD in 2007. Additional history includes diabetes, hypertension and hyperlipidemia. He was admitted in December 2021 to [facility] with chest pain and diagnosed with [...] 1 tablet by mouth every afternoon. omega 4-rac-tty-fish oil (FISH OIL) 100-160-1,000 mg cap Take [...] 05/03/2023 67 Last 3 (more content not included)...NormalDiley Ridge Medical Center ClevelandCholesterol in LDL Calc [Mass/Vol]on 83-48-1066Vyxhieyifdc in LDL [Mass/Vol]66.0 mg/dLTrinity Health System Twin City Medical CenterComment on above:<100 mg/dl ORMRQPY540-311 mg/dl NEAR OR ABOVE VEHLJBV684-317 mg/dl BORDERLINE XNLJ633-462 mg/dl HIGH>190 mg/dl VERY HIGHCholesterol in VLDL Calc [Mass/Vol]on 06-19-2023 Cholesterol in VLDL [Mass/Vol]43.0 mg/dLTrinity Health System Twin City Medical CenterECG COMPLETEon 05-79-5865Wmiguo Rate68 BPMDiley Ridge Medical CenterCalculated P Axis53 degreesDiley Ridge Medical CenterCalculated R Axis20 degreesDiley Ridge Medical CenterCalculated T Axis86 degreesDiley Ridge Medical CenterP-R Atnrsuny184 msCleveland ClinicQRS Axakdshj88 msCleveland ClinicQT Lmbytjaq407 msCleveland ClinicQTC Calculation (Bazett)440 msCleveland ClinicVentricular Rate68 BPMSycamore Medical Center COMPLETEVentricular Rate : 68 BPM Atrial Rate : 68 BPM P-R Interval : 188 ms QRS Duration : 88 ms Q-T Interval : 414 ms QTC Calculation(Bazett) : 440 ms Calculated P Sanford : 53 degrees Calculated R Sanford : 20 degrees Calculated T Sanford : 86 degrees NORMAL SINUS RHYTHM LOW VOLTAGE QRS NONSPECIFIC ST ABNORMALITY ABNORMAL ECG Confirmed by LIGIA COLMENARES M.D. ([id number]), general expeditor Lainey Agee ([id number]) on 06/19/2023 2:11:39 PM NAME : CADEN WILLS PID : [id number] : 1960 Gender : Male Race : Unknown ORD : [id number] Procedure Date : Jun 19 2023 13:03:26 Edit Date : Jun 19 2023 14:11:40 Diagnosis: NORMAL SINUS RHYTHM LOW VOLTAGE QRS NONSPECIFIC ST ABNORMALITY ABNORMAL ECG Confirmed by LIGIA COLMENARES M.D. ([id number]), general expeditor Lainey Agee ([id number]) on 06/19/2023 2:11:39 PM Test Reason : Location : 105 : [facility] Overread By : LIGIA COLMENARES M.D. Edited By : Lainey Agee Referred By : LIGIA COLMENARES Acquired by : ,[facility] CenterEstimated glomerular filtration rate (GFR) non- Americanon 76-52-1160QUF/1.73 sq M.predicted among non- blacks MDRD (S/P/Bld) [Vol rate/Area]mL/min/{1.73_m2}>=60[facility] CenterLaboratory - Chemistry and Chemistry - challengeon 06-19-2023 Calcium [Mass/Vol]8.7 mg/dL8.5-10.1FOur Lady of Mercy HospitalChloride [Moles/Vol]103 mmol/I61-766UinnbhndyTrinity Health System Twin City Medical CenterCholesterol [Mass/Vol]141 mg/dL<=200[facility] CenterCholesterol in HDL [Mass/Vol]32 mg/kV73-66PpbhfodivTrinity Health System Twin City Medical CenterComment on above:> or =60 mg/dl - LOW CARDIOVASCULAR RISK<40 mg/dl - HIGH CARDIOVASCULAR RISKCO2 [Moles/Vol]29.5 mmol/L21.0-32.0[facility] Medical CenterCreatinine [Mass/Vol]0.86 mg/dL0.70-1.30[facility] Medical CenterGFR/1.73 sq M.predicted MDRD (S/P/Bld) [Vol rate/Area]mL/min/{1.73_m2}>=60[facility] Medical CenterGlucose [Mass/Vol]143 mg/kH84-815TnztazckzTrinity Health System [facility] Potassium [Moles/Vol]4.2 mmol/L3.5-5.1FSCCI Hospital Limaodium [Moles/Vol]141 mmol/A322-360MbcuronreTrinity Health System Twin City Medical CenterTriglyceride [Mass/Vol]215 mg/dL<=150[facility] Medical CenterUrea nitrogen [Mass/Vol]15.0 mg/dL7.0-18.0[facility] Medical CenterUrea nitrogen/Creatinine [Mass ratio]17.4 mg/mgUniversity Hospitals Geneva Medical Centererum or plasma anion gap determinationon 54-00-1316Vfokd gap [Moles/Vol]12.7 mmol/L [facility] Medical Centererum or plasma total cholesterol/high density lipoprotein (HDL) cholesterol mass evelyn 00-92-5105Ctreccgouzg.total/Cholesterol in HDL [Mass ratio]4.4 {ratio}[facility] Medical CenterComment on above:3.3 - 4.4 LOW RISK4.4 - 7.1 AVERAGE RISK7.1 - 11.0 MODERATE RISK>11.0 HIGH RISKCNPNon 85-11-7138POLULiovvacym (UROLMN) CADEN WILLS ([id number]) 1960 M Date Time Provider Department 06/14/23 NOY MARY During your visit today, we recorded the following information about you: Noy Mary RN 06/14/2023 9:45 AM Signed Called Caden Wills and L[facility] to confirm surgery date of 07/[address] Alberto. Discussed pre op testing on 07/26 in [place], or he could make two trips. Asked him to confirm Asked patient to confirm receipt, and voice any questions or concerns. Number provided. 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 - omega 8-swh-lrz-fish oil (FISH OIL) 100-160-1,000 mg cap Take 1,000 mg by mouth. - bumetanide (BUMEX ORAL) Take by mouth. 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 - omega 4-jty-nrf-fish oil (FISH OIL) 100-160-1,000 mg cap Take 1,000 mg by mouth. - bumetanide (BUMEX ORAL) Take by mouth. 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] 05/03/2023 Scarring of penis [N48.6] 05/03/2023 Erectile dysfunction associated with type 2 beverley*05/03/2023 Encounter Status:Closed by USMANNOY on 06/14/23Adena Health Systemation Noteon 98-19-7336Uzataepdkkun Note [id number]#1.00TIFFNormalPromedica Bay Park HospitalCNOVon 61-30-4487QRQTNnmgea Visit (UROLMN) CADEN WILLS ([id number]) 1960 M Date Time Provider Department 05/03/23 2:00 PM JIAN ALBERTO During your visit today, we recorded the following information about you: Pulse Blood pressure Weight Height 67/minute 137/78 123.4 kg 1.778 m Jian Alberto MD 05/03/2023 2:28 PM Signed [facility] NEW PATIENT HISTORY AND PHYSICAL EXAM PATIENT INFO: Caden Wills 63 year old REFERRING M.D.: Antonia Bush MD [address] [place] [address] This consult was requested by Dr. Bush for an opinion regarding buried penis and erectile dysfunction, and my final recommendations will be communicated to the requesting health care provider by way of the shared medical record for internal providers or letter via the [employer] for external providers. 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 , interested in future sexual life. MEDICATIONS: [...] pending PVR noted ASSESSMENT/PLAN: (more content not included)...NormalDiley Ridge Medical Center ClevelandURINALYSIS, REFLEX MICROSCOPICon 25-02-4009Wiavzhcju Ql (U)NegativeNegativeCleveland ClinicClarity (Unsp spec)ClearClearCleveland ClinicColor (U)Light YellowYellowCleACMC Healthcare SystemGlucose Test strip (U) [Mass/Vol]4+AbnormalTrace, NegativeDiley Ridge Medical Center Hemoglobin Ql (U)NegativeNegative, TraceDiley Ridge Medical CenterKetones Ql (U)Negative Negative, TraceDiley Ridge Medical CenterLeukocyte esterase Test strip Ql (U)25 Quintin/uL Negative, 25 Quintin/uLCleACMC Healthcare SystemNitrite Ql (U)NegativeNegativeDiley Ridge Medical CenterpH (U)5.5 [pH]5.0 - 8.0Diley Ridge Medical CenterProtein (U) [Mass/Vol]Negative Trace, NegativeOhio State University Wexner Medical Centerpecific gravity (U) [Rel density]1.161Iwmh7.005 - 1.030CleACMC Healthcare SystemUrobilinogen Ql (U)NegativeNegativeDiley Ridge Medical Center Bilirubin Ql (U)NegativeNormalNegativeDiley Ridge Medical Center ClevelandComment on above:Order Comment: Specimen Type: BLOOD SPECIMEN [facility] Address: [address] [place], [place] [address]Performed By: #### 86435-0 #### [facility] CLIA [id number] [address] [place] [address] [place] OF AMERICAClarity (Unsp spec)Clear NormalClearCThe Surgical Hospital at SouthwoodsvelandCox Branson on above:Order Comment: Specimen Type: BLOOD SPECIMEN [facility] Address: [address] [place], [place] [address]Performed By: #### 22695-7 #### [facility] CLIA [id number] [address] [place] [address] [place] AMERICAColor (U)Light YellowNormal YellowCleSelect Medical OhioHealth Rehabilitation HospitalCommunson healthcare [facility] on above:Order Comment: Specimen Type: BLOOD SPECIMEN [facility] Address: [address] [place], [place] [address]Performed By: #### 08378-7 #### [facility] CLIA [id number] [address] [place] [address] [place] OF AMERICAGlucose Test strip (U) [Mass/Vol]4+AbnormalTrace, NegativeWadsworth-Rittman Hospital on above: Order Comment: Specimen Type: BLOOD SPECIMEN [facility] Address: [address] [place], [place] [address]Performed By: #### 71117-3 #### [facility] CLIA [id number] [address] [place] [address] [place] OF AMERICAHemoglobin Ql (U)Negative NormalNegative, TraceWadsworth-Rittman Hospital on above:Order Comment: Specimen Type: BLOOD SPECIMEN [facility] Address: [address] [place], [place] [address]Performed By: #### 93621-2 #### [facility] CLIA [id number] [address] [place] [address] [place] AMERICAKetones Ql (U)NegativeNormal Negative, TraceWadsworth-Rittman Hospital on above:Order Comment: Specimen Type: BLOOD SPECIMEN [facility] Address: [address] [place], [place] [address]Performed By: #### 70670-9 #### [facility] CLIA [id number] [address] [place] [address] [place] OF AMERICALeukocyte esterase Test strip Ql (U)25 Quintin/uLNormalNegative, 25 Quintin/uLCleMercy Hospital on above:Order Comment: Specimen Type: BLOOD SPECIMEN [facility] Address: [address] [place], [place] [address]Performed By: #### 21320-5 #### [facility] CLIA [id number] [address] [place] [address] [place] OF AMERICANitrite Ql (U)NegativeNormal NegativeWadsworth-Rittman Hospital on above:Order Comment: Specimen Type: BLOOD SPECIMEN [facility] Address: [address] [place], [place] [address]Performed By: #### 34712-3 #### [facility] CLIA [id number] [address] [place] [address] [place] AMERICApH (U)5.5 [pH]Normal5.0-8.0 [facility] on above:Order Comment: Specimen Type: BLOOD SPECIMEN [facility] Address: [address] [place], [place] [address]Performed By: #### 32803-2 #### [facility] CLIA [id number] [address] [place] [address] [place] AMERICAProtein (U) [Mass/Vol] NegativeNormalTrace, NegativeWadsworth-Rittman Hospital on above:Order Comment: Specimen Type: BLOOD SPECIMEN [facility] Address: [address] [place], [place] [address]Performed By: #### 28916-7 #### [facility] [place] [id number] [address] [place] [address] [place] OF AMERICASpecific gravity (U) [Rel density]1.878Hphh8.005-1.030[facility] on above:Order Comment: Specimen Type: BLOOD SPECIMEN [facility] Address: [address] [place], [place] [address]Performed By: #### 56864-4 #### [facility] [place] [id number] [address] [place] [address] [place] OF AMERICAUrobilinogen Ql (U)Negative NormalNegativeWadsworth-Rittman Hospital on above:Order Comment: Specimen Type: BLOOD SPECIMEN [facility] Address: [address] [place], [place] [address]Performed By: #### 27435-1 #### [facility] [place] [id number] [address] [place] [address] [place] AMERICAPhysician Referralon 68-57-7179Kikhvbhux [id number] NormalPromedica Bay Park HospitalPhysician Referralon 92-28-2844Krfrkcawo [id number]#1.00TIFFNormalPromedica Bay Park HospitalPhysician Referralon 52-84-5992Bisssqpfm Referral [id number]#1.00TIFFNormalBrown Memorial Hospitalcreenson 54-99-1364Hveehna [id number]#1.00TIFFNormTwin City HospitalAmbulatory Visit Summaryon 75-57-5298Oyoiyemlam Visit Summary CADEN WILLS [place] :1960 Visit Date:03/22/2023 Ambulatory Visit Instructions Your Diagnosis ED (erectile dysfunction) Phimosis Hidden penis Balanoposthitis Anticoagulated Tests Performed Urnls Dip Stick Auto w/o Microscopy POC 32295 Your Care Team Attending Physician - Antonia [...] with Antonia BUSH MD, URL When: Where: [address] [place] [address]- Someone Will Contact You Regarding These Appointments [facility] External Ambulatory Referral, Urology, Dr. Alberto, 03/22/23 11:49:00 FAM, [facility] HospitalPatient Educationon 03-22-2023 Patient EducationUrology Erectile Dysfunction Erectile [...] these instructions at home: Medicines ? 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 Anticoagulated (Z79.01: group home (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 of anticoagulants) Plavix. S/p bypass [...] seen by Dr. Jian Alberto at the [facility] for his opinion. He can utilize mnki-cnt-qtxyyrd Monistat cream/triple antibiotic on a as needed [...] with voice recognition artificial intelligence software, specifically [employer] and [employer] (more content not included)...[facility] HospitalComment on above: Result Comment: Electronically Signed By: Antonia BUSH MD\.br\Date and Time Signed: 03/22/23 12:07 EST\.br\Electronically Co-Signed By: Maria M Campos\.br\Date and Time Co-Signed: 03/22/23 11:53 ESTA1C HEMOGLOBINon 03-08-2023 HbA1c (Bld) [Mass fraction]7.2 %[employer] Other Glucose - FINGER STICKon 42-58-5525Wqmycyb [Mass/Vol] 187 mg/dLNoMaulSoup Other HbA1c (Bld) [Mass fraction]on 82-53-1586P1F HEMOGLOBIN [employer] Other A1C HEMOGLOBINon 53-79-6672DvV5g (Bld) [Mass fraction] 6.6 %[employer] Other Glucose - FINGER STICKon 98-35-9140Szbrmwx [Mass/Vol] 102 mg/dLNoMaulSoup Other HbA1c (Bld) [Mass fraction]on 32-59-5355X3E HEMOGLOBIN [employer] Other a1c HEMOGLOBINon 47-74-2320KqN4d (Bld) [Mass fraction] 6.5 %[employer] Other Glucose - FINGER STICKon 54-75-6934Euktlak [Mass/Vol] 159 mg/dLNoMaulSoup Other HbA1c (Bld) [Mass fraction]on 97-31-4114Q5F HEMOGLOBIN [employer] Other a1c HEMOGLOBINon 80-05-9456GlM8r (Bld) [Mass fraction] 6.9 %[employer] Other Glucose - FINGER STICKon 09-99-4005Iesmtns [Mass/Vol] 206 mg/dLNoMaulSoup Other HbA1c (Bld) [Mass fraction]on 55-36-4599C2B HEMOGLOBIN [employer] Other UA RANDOMon 62-86-0699Jehdfhtfs Ql (U)NegativeNormal NEGATIVEGalion Community HospitalComment on above:Performed By: #### UA #### [facility] [address] [address] [address] Jose RojasCljena (U)CLOUDYAbnormalCLEARThKettering Health TroyComment on above:Performed By: #### UA #### [facility] [address] [address] [address] Jose Kong (U)LT. YELLOWNormalYELLOWGalion Community HospitalComment on above:Performed By: #### UA #### [facility] [address] [address] [address] Jose RojasGlucose Ql (U)>1000AbnormalNEGATIVEGalion Community HospitalComment on above:Performed By: #### UA #### [facility] [address] [address] [address] Jose RojasHemoglobin Ql (U)MODERATEAbnormalNEGATIVEGalion Community Hospital Comment on above:Performed By: #### UA #### [facility] [address] [place] [address] Dr. Jose Marinelli Ql (U)NegativeNormalNEGATIVEThe [facility] HospitalComment on above:Performed By: #### UA #### [facility] [address] [place] [address] Dr. Jose RojasLEUKOCYTESMODERATEAbnormalNEGATIVEThe [facility] HospitalComment on above:Performed By: #### UA #### [facility] [address] [place] [address] Dr. Jose Thrashertrite Ql (U)NegativeNormalNEGATIVEThe [facility] HospitalComment on above:Performed By: #### UA #### [facility] [address] [place] [address] Dr. Jose RojaspH (U)5.5 [pH]Normal5-9The [facility] HospitalComment on above: Performed By: #### UA #### [facility] [address] [place] [address] Dr. Jose RojasSPEC GRAVITY<=1.918Owazivlm4.005-<=1.025[facility] Comment on above:Performed By: #### UA #### [facility] [address] [place] [address] Dr. Jose Noel PROTEINNegativeNormalNEGATIVE/ TRACEThe [facility] Comment on above:Performed By: #### UA #### [facility] [address] [place] [address] Dr. Jose Rodríguezbilinogen Qn (U)0.2 {Ritu'U}/dLNormal0.2 - 1.0The [facility] HospitalComment on above:Performed By: #### UA #### [facility] [address] [place] [address] Dr. Jose Wright M/2D COMPLETEon [id number] M/2D COMPLETE Patient: CADEN WILLS Exam Date: 03/30/2022 : 1960 Gender:M Ordering : DR SIMBA KASPER M.D. Admission #: [id number] Family : DR FAHAD Medrano.O. Order #: [id number] CLICK HERE TO VIEW EXAM ECHOCARDIOGRAM REPORT [...] by: Tomás Muniz M.D. on 03/31/2022 at 14:44[facility] HospitalBNPon [id number] peptide B (Bld) [Mass/Vol]335.0 pg/mLNormal <=900.0The [facility] HospitalComment on above:Performed By: #### BNP #### [facility] [address] [place] [address] Dr. Jose Toscano AUTO DIFFon [id number] #0.1 103/ulNormal0.0-0.1The [facility] HospitalComment on above:Performed By: #### DATCBC #### [facility] [address] [place] [address] Dr. Jose Rodriguezphils/100 WBC (Bld)0.7 %Normal0.2-2.0[facility] Comment on above:Performed By: #### DATCBC #### [facility] [address] [place] [address] Dr. Jose Adan #0.4 103/ulNormal0.0-0.7The [facility] HospitalComment on above: Performed By: #### DATCBC #### [facility] [address] [place] [address] Dr. Jose Padillaosinophils/100 WBC (Bld)3.9 %Normal0.9-7.0The [facility] Comment on above:Performed By: #### DATCBC #### [facility] [address] [place] [address] Dr. Jose Padillarythrocyte distribution width (RBC) [Ratio]16.5 %Critically high 11.0-15.0The [facility] HospitalComment on above:Performed By: #### DATCBC #### [facility] [address] [place] [address] Dr. Jose RojasHematocrit (Bld) [Volume fraction]44.9 %Xjlpjm46.0-54.0The [facility] HospitalComment on above:Performed By: #### DATCBC #### [facility] [address] [place] [address] Dr. Jose RojasHemoglobin (Bld) [Mass/Vol]14.3 g/pZNlpxbu84.0-18.0The [facility] HospitalComment on above:Performed By: #### DATCBC #### [facility] [address] [place] [address] Dr. Jose Laura #0.33 10e3/ulCritically high0.00-0.03The [facility] Comment on above:Performed By: #### DATCBC #### [facility] [address] [place] [address] Dr. Jose Laura %3.5 %Critically high0.0-0.5The [facility] HospitalComment on above:Performed By: #### DATCBC #### [facility] [address] [place] [address] Dr. Jose Lyn #1.9 103/ulNormal1.2-3.8The [facility] HospitalComment on above:Performed By: #### DATCBC #### [facility] [address] [place] [address] Dr. Jose Rodriguezmphocytes/100 WBC (Bld)19.8 %Critically low20.5-60.0The [facility] HospitalComment on above:Performed By: #### DATCBC #### [facility] [address] [place] [address] Dr. Jose EvansH (RBC) [Entitic mass]27.1 zaZavjvv26.9-34.0The [facility] HospitalComment on above:Performed By: #### DATCBC #### [facility] [address] [place] [address] Dr. Jose EvansHC (RBC) [Mass/Vol]31.8 g/dUCpviiu98.9-35.2The [facility] HospitalComment on above:Performed By: #### DATCBC #### [facility] [address] [place] [address] Dr. Jose EvansV (RBC) [Entitic vol]85.0 oZDgihbl18.0-94.0The [facility] HospitalComment on above:Performed By: #### DATCBC #### [facility] [address] [place] [address] Dr. Jose Hardin #0.9 103/ulCritically high0.3-0.8The [facility] Comment on above:Performed By: #### DATCBC #### [facility] [address] [place] [address] Dr. Jose Templetonocytes/100 WBC (Bld)9.1 %Normal1.7-12.0[facility] Comment on above:Performed By: #### DATCBC #### [facility] [address] [place] [address] Dr. Jose Galvan #6.0 103/ulNormal1.4-6.5The [facility] HospitalComment on above:Performed By: #### DATCBC #### [facility] [address] [place] [address] Dr. oJse Monroeutrophils/100 WBC (Bld)63.0 %Ewabox03.0-75.0The [facility] HospitalComment on above:Performed By: #### DATCBC #### [facility] [address] [place] [address] Dr. Jose Davidlet mean volume (Bld) [Entitic vol]9.2 fLCritically low 9.5-13.5The [facility] HospitalComment on above:Performed By: #### DATCBC #### [facility] [address] [place] [address] Dr. Jose LowT485 103/ulCritically kovp697-958Eao [facility] HospitalComment on above:Performed By: #### DATCBC #### [facility] [address] [place] [address] Dr. Jose RojasRBC5.28 106/ulNormal4.70-6.10The [facility] HospitalComment on above:Performed By: #### DATCBC #### [facility] [address] [place] [address] Dr. Jose RojasWBC9.6 103/ulNormal4.0-11.0The [facility] HospitalComment on above: Performed By: #### DATCBC #### [facility] [address] [place] [address] Dr. Jose Bowser- BMP WITH LIPIDon 92-09-9527Hfmbz gap [Moles/Vol]14.3 mmol/L NormalThe [facility] HospitalComment on above:Performed By: #### DATBMP #### [facility] [address] [place] [address] Dr. Jose RojasCalcium [Mass/Vol]9.9 mg/dLNormal8.5-10.1The [facility] Comment on above:Performed By: #### DATBMP #### [facility] [address] [place] [address] Dr. Jose RojasChloride [Moles/Vol]101 mmol/LJayhfh95-784Dui [facility] Comment on above:Performed By: #### DATBMP #### [facility] [address] [address] [address] Jose RojasCholesterol [Mass/Vol]110 mg/dLNormal<=200The [facility] Comment on above:Performed By: #### DATBMP #### [facility] [address] [address] [address] Jose RojasCholesterol in HDL [Mass/Vol]28 mg/dLCritically kps85-26Nhb [facility] HospitalComment on above:Performed By: #### DATBMP #### [facility] [address] [address] [address] Jose RojasCholesterol in LDL [Mass/Vol]21.2 mg/dLNormalThe [facility] HospitalComment on above:Performed By: #### DATBMP #### [facility] [address] [place] [address] Dr. Jose RojasCO2 [Moles/Vol]28.2 mmol/OXwtyxp13.0-32.0The [facility] Comment on above:Performed By: #### DATBMP #### [facility] [address] [address] [address] Jose RojasCreatinine [Mass/Vol]1.14 mg/dLNormal0.70-1.30The [facility] HospitalComment on above:Performed By: #### DATBMP #### [facility] [address] [place] [address] Dr. Garcia ChangEGFR-AF DANISH>60Normal>=60The [facility] HospitalComment on above:Performed By: #### DATBMP #### [facility] [address] [place] [address] Dr. Garcia ChangEGFR-NON AF DANISH>60Normal>=60The [facility] HospitalComment on above:Performed By: #### DATBMP #### [facility] [address] [place] [address] Dr. Jose RojasGlucose [Mass/Vol]254 mg/dLCritically zcsd98-543Bif [facility] HospitalComment on above:Performed By: #### DATBMP #### [facility] [address] [address] [address] Jose Marrufo NORMAL> or = 60 mg/dl - LOW CARDIOVASCULAR RISK <40 mg/dl - HIGH CARDIOVASCULAR RISKParma Community General HospitalComment on above:Performed By: #### DATBMP #### [facility] [address] [address] [address] Jose Ricks CALC NORMALSEE BELOWParma Community General HospitalComment on above:Result Comment: <100 mg/dl OPTIMAL 100 - 129 mg/dl NEAR OR ABOVE OPTIMAL 130 - 159 mg/dl BORDERLINE HIGH 160 - 189 mg/dl HIGH >190 mg/dl VERY HIGH Performed By: #### DATBMP #### [facility] [address] [address] [address] Jose RojasPotassium [Moles/Vol]4.5 mmol/LNormal3.5-5.1The [facility] Comment on above:Performed By: #### DATBMP #### [facility] [address] [address] [address] Jose RojasSodium [Moles/Vol]139 mmol/IWfmpxu613-802Jbp [facility] Comment on above:Performed By: #### DATBMP #### [facility] [address] [place] [address] Dr. Jose RojasTriglyceride [Mass/Vol]304 mg/dLCritically high<=150The [facility] HospitalComment on above:Performed By: #### DATBMP #### [facility] [address] [address] [address] Jose RojasUrea nitrogen [Mass/Vol]21.0 mg/dLCritically high7.0-18.0The [facility] HospitalComment on above:Performed By: #### DATBMP #### [facility] [address] [place] [address] Dr. Jose Liang nitrogen/Creatinine [Mass ratio]18.4 mg/mgNoThe MetroHealth SystemComment on above:Performed By: #### DATBMP #### [facility] [address] [place] [address] Dr. Yilan ChangVLDL CALC60.8 mg/dLParma Community General HospitalComment on above: Performed By: #### DATBMP #### [facility] [address] [place], [place] [address] Dr. Jose RojasAlbumin [Mass/volume] in Serum or PlasmaOrdered By: Yamilex Foster on 12-07-2979Qfhvgdw [Mass/Vol]3.5 g/dL3.2-5.5FOur Lady of Mercy Hospital Cholesterol [Mass/volume] in Serum or PlasmaOrdered By: Yamilex Foster on 53-21-7386Jqgergslszx [Mass/Vol]96 mg/fV199-917QihwpxlynTrinity Health [facility] Comment on above:Chol less than 200 mg/dl low riskChol 201-239 mg/dl borderline riskChol 240 mg/dl and greater high riskCholesterol in LDL Calc [Mass/Vol] Ordered By: Yamilex Foster on 92-11-6570Jnmmpnzcyij in LDL [Mass/Vol]34 mg/dL0-100 [facility] CenterComment on above:LDL ATP III CLASSIFICATIONLDL less than 100 mg/dL OptimalLDL 100-129 mg/dL Near or above sbheawcEHF740-047 mg/dL Borderline highLDL 160-189 mg/dL HighLDL greater than 189 mg/dL Very high Cholesterol in VLDL Calc [Mass/Vol]Ordered By: Yamilex Foster on 02-11-2022 Cholesterol in VLDL [Mass/Vol]28 mg/dLTrinity Health System [facility] Creatinine [Mass/volume] in UrineOrdered By: Yamilex Foster on 02-11-2022 Creatinine (U) [Mass/Vol]49.7 mg/dLTrinity Health System Twin City Medical CenterComment on above:No reference range establishedCreatinine and Glomerular filtration rate.predicted panel (S/P/Bld)Ordered By: Yamilex Foster on 03-00-2010Lcenvsyotm [Mass/Vol]0.85 mg/dL0.64-1.27[facility] CenterEstimated glomerular filtration rate (GFR) non- AmericanOrdered By: Yamilex Foster on 08-36-5981WRS/1.73 sq M.predicted among non-blacks MDRD (S/P/Bld) [Vol rate/Area]> 60 mL/MinTrinity Health System Twin City Medical CenterGlobulin Calc (S) [Mass/Vol]Ordered By: Yamilex Foster on 97-22-6810Zrtrzsqh (S) [Mass/Vol]3.2 g/dL [facility] CenterLaboratory - Chemistry and Chemistry - challengeOrdered By: Yamilex Foster on 24-41-0133Nemwxqtsn (Vitamin B12) [Mass/Vol]227 pg/yD087-826HrmfogjteTrinity Health System Twin City Medical CenterNo Panel Information Ordered By: Yamilex Foster on 19-46-9119Xcvbypvie GFR ()> 60 mL/MinTrinity Health System Twin City Medical CenterComment on above:GFR estimated reference range: According to KDOQI guidelines, <60 ml/min/1.73m2 is sufficient todiagnose a patient with chronic kidney disease.Pharmacy Creatinine Clearance (ChemN/A [facility] CenterProtein [Mass/volume] in Serum or PlasmaOrdered By: Yamilex Foster on 06-17-2996Gjxrjoe [Mass/Vol]6.7 g/dL6.1-7.9[facility] Medical Centererum or plasma alanine aminotransferase measurement without P-5'-P (enzymatic activiOrdered By: Yamilex Foster on 31-19-6580IUC No additional P-5'-P [Catalytic activity/Vol]23 U/C59-27HetrftljaUniversity Hospitals Geneva Medical Centererum or plasma albumin/globulin mass ratioOrdered By: Yamilex Foster on 91-42-4832Ouimgfs/Globulin [Mass ratio]1.1 {ratio}[facility] Centererum or plasma alkaline phosphatase measurement (enzymatic activity/volume)Ordered By: Yamilex Foster on 68-31-4328KAC [Catalytic activity/Vol]82 U/V65-03DwhonwcwpUniversity Hospitals Geneva Medical Centererum or plasma anion gap determinationOrdered By: Yamilex Foster on 81-48-5835Mneeb gap [Moles/Vol]15.4 mmol/L6.0-15.0[facility] Centererum or plasma aspartate aminotransferase measurement (enzymatic activity/volume)Ordered By: Yamilex Foster on 37-92-0427QFQ [Catalytic activity/Vol]22 U/K72-33GdokhviwtUniversity Hospitals Geneva Medical Centererum or plasma calcium measurement (mass/volume)Ordered By: Yamilex Foster on 33-87-9673Omttvmf [Mass/Vol]9.7 mg/dL8.2-10.2FSCCI Hospital Limaerum or plasma chloride measurement (moles/volume)Ordered By: Yamilex Foster on 46-41-1276Kbudilni [Moles/Vol]101 mmol/Y86-937PelxbozryUniversity Hospitals Geneva Medical Centererum or plasma glucose measurement (mass/volume)Ordered By: Yamilex Foster on 33-22-5320Xnobgmg [Mass/Vol]85 mg/uS70-207QqcdxreqrTrinity Health System Twin City Medical CenterComment on above:ADA recommended reference rangeRandom Glucose Reference Range is dependent on time and content of last meal. Glucose of more than 200 mg/dL in a nonstressed, ambulatory subject supports the diagnosisof Diabetes Mellitus.Serum or plasma high density lipoprotein (HDL) cholesterol measurementOrdered By: Yamilex Foster on 53-53-6706Bfclvzvonnp in HDL [Mass/Vol]34 mg/kC63-01JgdfdwxfnTrinity Health System Twin City Medical CenterComment on above:HDL CHOL ATP-III CLASSIFICATION Cardiovascular RiskHDL > or equal to 60 mg/dL LOWHDL < 40 mg/dL HIGHSerum or plasma potassium measurement (moles/volume)Ordered By: Yamilex Foster on 96-06-2974Ubietrcpf [Moles/Vol]4.2 mmol/L3.5-5.1FSCCI Hospital Limaerum or plasma sodium measurement (moles/volume)Ordered By: Yamilex Foster on 40-83-0551Bnfofl [Moles/Vol]138 mmol/P174-442VtueskogsUniversity Hospitals Geneva Medical Centererum or plasma total bilirubin measurement (mass/volume)Ordered By: Yamilex Foster on 4351Metuootew [Mass/Vol]0.7 mg/dL0.3-1.2FSCCI Hospital Limaerum or plasma total carbon dioxide measurement (moles/volume) Ordered By: Yamilex Foster on 80-04-0213TV4 [Moles/Vol]25.8 mmol/L22.0-30.0 [facility] Centererum or plasma total cholesterol/high density lipoprotein (HDL) cholesterol mass ratOrdered By: Yamilex Foster on 02-11-2022 Cholesterol.total/Cholesterol in HDL [Mass ratio]2.8 {ratio}<5.0[facility] Centererum or plasma urea nitrogen measurement (mass/volume) Ordered By: Yamilex Foster on 41-93-2190Uicm nitrogen [Mass/Vol]16 mg/dL9-23 [facility] Medical CenterTriglyceride [Mass/volume] in Serum or Plasma Ordered By: Yamilex Foster on 74-73-7419Ljcvvumzmxmt [Mass/Vol]140 mg/kQ41-806 [facility] CenterComment on above:TRIG ATP III CLASSIFICATIONTRIG less than 150 mg/dL NormalTRIG 150-199 mg/dL Borderline highTRIG 200-500 mg/dL High TRIG greater than 500 mg/dL Very highStandard traceable to the Center for Disease Conrtrol and Prevention (CDC) test method. Urine microalbumin measurement with detection limit of 20 mg/L or less (mass/volume)Ordered By: Yamilex Foster on 12-57-7061Nnlztoo DL <= 20 mg/L (U) [Mass/Vol]3.4 mg/dL0.0-1.8[facility] Medical CenterUrine microalbumin/creatinine mass ratioOrdered By: [facility] Centerdelano [facility] on 02-11-2022 Albumin/Creatinine DL <= 20 mg/L (U) [Mass ratio]68.0 mg/g0.0-30.0[facility] Medical CenterComment on above:30-300 mg/g indicates an increased risk for diabetic nephropathy. Greater than 300 mg/g is consistent with clinical nephropathy. (Am. J. Kidney Disease 1994, 25:107)BNPon 82-61-5382Dglggzgcrqh peptide B (Bld) [Mass/Vol]229.0 pg/mLNormal<=900.0The [facility] HospitalComment on above:Performed By: #### BNP #### [facility] [address] [place] [address] [address] [address] Jose Toscano AUTO DIFFon 40-87-3644WAMR #0.1 103/ulNormal0.0-0.1The [facility] HospitalComment on above:Performed By: #### DATCBC #### [facility] [address] [address] [address] Jose RojasBasophils/100 WBC (Bld)0.5 %Normal0.2-2.0The [facility] Comment on above:Performed By: #### DATCBC #### [facility] [address] [place] [address] Dr. Jose Adan #0.1 103/ulNormal0.0-0.7The [facility] HospitalComment on above: Performed By: #### DATCBC #### [facility] [address] [place] [address] Dr. Jose Padillaosinophils/100 WBC (Bld)1.0 %Normal0.9-7.0The [facility] Comment on above:Performed By: #### DATCBC #### [facility] [address] [place] [address] Dr. Jose Padillarythrocyte distribution width (RBC) [Ratio]15.1 %Critically high 11.0-15.0The [facility] HospitalComment on above:Performed By: #### DATCBC #### [facility] [address] [place] [address] Dr. Jose RojasHematocrit (Bld) [Volume fraction]49.2 %Bwrbky70.0-54.0The [facility] HospitalComment on above:Performed By: #### DATCBC #### [facility] [address] [place] [address] Dr. Jose RojasHemoglobin (Bld) [Mass/Vol]16.1 g/wDCuqzpn67.0-18.0The [facility] HospitalComment on above:Performed By: #### DATCBC #### [facility] [address] [place] [address] Dr. Jose Laura #0.07 10e3/ulCritically high0.00-0.03The [facility] Comment on above:Performed By: #### DATCBC #### [facility] [address] [place] [address] Dr. Jose Laura %0.7 %Critically high0.0-0.5The [facility] HospitalComment on above:Performed By: #### DATCBC #### [facility] [address] [place] [address] Dr. Jose Lyn #2.1 103/ulNormal1.2-3.8The [facility] HospitalComment on above:Performed By: #### DATCBC #### [facility] [address] [place] [address] Dr. Jose Hdezhocytes/100 WBC (Bld)22.2 %Pyxrft40.5-60.0The [facility] HospitalComment on above:Performed By: #### DATCBC #### [facility] [address] [place] [address] Dr. Jose Mills DIFF REQNONormalThe [facility] HospitalComment on above: Performed By: #### DATCBC #### [facility] [address] [place] [address] Dr. Jose Mondragon (RBC) [Entitic mass]28.0 csTjibew42.9-34.0The [facility] HospitalComment on above:Performed By: #### DATCBC #### [facility] [address] [place] [address] Dr. Jose Evans (RBC) [Mass/Vol]32.7 g/zQZwnclt19.9-35.2The [facility] HospitalComment on above:Performed By: #### DATCBC #### [facility] [address] [place] [address] Dr. Jose Graves (RBC) [Entitic vol]85.6 bMWrqiba89.0-94.0The [facility] HospitalComment on above:Performed By: #### DATCBC #### [facility] [address] [place] [address] Dr. Jose Hardin #1.0 103/ulCritically high0.3-0.8The [facility] Comment on above:Performed By: #### DATCBC #### [facility] [address] [place] [address] Dr. Jose Templetonocytes/100 WBC (Bld)10.2 %Normal1.7-12.0The [facility] Comment on above:Performed By: #### DATCBC #### [facility] [address] [place] [address] Dr. Jose MonroeUT #6.3 103/ulNormal1.4-6.5The [facility] HospitalComment on above:Performed By: #### DATCBC #### [facility] [address] [place] [address] Dr. Jose Monroeutrophils/100 WBC (Bld)65.4 %Zjscqs98.0-75.0The [facility] HospitalComment on above:Performed By: #### DATCBC #### [facility] [address] [place] [address] Dr. Jose RojasPlatelet mean volume (Bld) [Entitic vol]9.4 fLCritically low 9.5-13.5The [facility] HospitalComment on above:Performed By: #### DATCBC #### [facility] [address] [place] [address] Dr. Jose RojasPLT353 103/laBjomdq736-932Cye [facility] HospitalComment on above: Performed By: #### DATCBC #### [facility] [address] [place] [address] Dr. Jose RojasRBC5.75 106/ulNormal4.70-6.10The [facility] HospitalComment on above:Performed By: #### DATCBC #### [facility] [address] [place] [address] Dr. Jose RojasWBC9.6 103/ulNormal4.0-11.0The [facility] HospitalComment on above: Performed By: #### DATCBC #### [facility] [address] [place] [address] Dr. Jose Chovid-19 PCR (CVDTB)on 82-68-2674WMJQ-CoV-2 (COVID-19) RNA PRASHANT+probe Ql (Unsp spec)Not detectedNormalNOT DETECTEDThe [facility] Comment on above:Result Comment: When diagnostic [...] for this test is supported by the [employer] Ch[employer] of Health and Human Service's declaration that [...] may no longer be used).Performed By: #### CVDTB #### [facility] [address] [place] [address] Dr. Jose RojasPROF CHEM 8 (BAS METB)on 53-16-6718Sycfb gap [Moles/Vol]14.0 mmol/LNormalGalion Community HospitalComment on above:Performed By: #### BRYN BMP #### [facility] [address] [place] [address] Dr. Jose RojasCalcium [Mass/Vol]9.5 mg/dLNormal8.5-10.1[facility] Comment on above:Performed By: #### BRYN, BMP #### [facility] [address] [place] [address] Dr. Jose RojasChloride [Moles/Vol]100 mmol/GCnbtbo02-709MomGalion Community Hospital Comment on above:Performed By: #### BRYN BMP #### [facility] [address] [place] [address] Dr. Jose RojasCO2 [Moles/Vol]26.9 mmol/RLwzauk73.0-32.0[facility] Comment on above:Performed By: #### ANDRESTRJAVED, BMP #### [facility] [address] [place], [place] [id number] Dr. Jose RojasCreatinine [Mass/Vol]1.06 mg/dLNormal0.70-1.30The [facility] HospitalComment on above:Performed By: #### HSTROPN, BMP #### [facility] [address] [address] [address] Jose PadillaGFR-AF DANISH>60Normal>=60The [facility] HospitalComment on above:Performed By: #### HSTROPN, BMP #### [facility] [address] [address] [address] Jose PadillaGFR-NON AF DANISH>60Normal>=60The [facility] HospitalComment on above:Performed By: #### HSTROPN, BMP #### [facility] [address] [place] [address] Dr. Jose RojasGlucose [Mass/Vol]152 mg/dLCritically zcdy83-892Llx [facility] HospitalComment on above:Performed By: #### HSTROPN, BMP #### [facility] [address] [address] [address] Jose RojasPotassium [Moles/Vol]3.9 mmol/LNormal3.5-5.1[facility] Comment on above:Performed By: #### HSTROPN, BMP #### [facility] [address] [place] [address] Dr. Jose RojasSodium [Moles/Vol]137 mmol/SRhzqfn431-509[facility] Comment on above:Performed By: #### HSTROPN, BMP #### [facility] [address] [address] [address] Jose RojasUrea nitrogen [Mass/Vol]19.0 mg/dLCritically high7.0-18.0[facility] HospitalComment on above:Performed By: #### HSTROPN, BMP #### [facility] [address] [address] [address] Jose RojasUrea nitrogen/Creatinine [Mass ratio]17.9 mg/mgNormalThe [facility] HospitalComment on above:Performed By: #### HSTROPN, BMP #### [facility] [address] [place], [place] [address] Dr. Jose Rosas, [employer] SENSITIVITYon 03-33-0393VDPUKB5096.5 pg/mL Critically high4.0-76.1[facility] HospitalComment on above:Result Comment: CUT-OFF POINTS HAVE BEEN ESTABLISHED BASED ON THE FOURTH UNIVERSAL DEFINITIONS OF MYOCARDIAL INFARCTION. THE UPPER REFERENCE LIMIT (URL) OF TROPONIN, DEFINED THE 99TH PERCENTILE OF cTnI DISTRIBUTION IN A REFERENCE POPULATION, HAS BEEN CONFIRMED THE DECISION THRESHOLD FOR DE DIAGNOSIS.Performed By: #### HSTROPN #### [facility] [address] [address] [address] Jose RojasHSTROP142.5 pg/mLCritically high4.0-76.1[facility] Comment on above:Result Comment: CUT-OFF POINTS HAVE BEEN ESTABLISHED BASED ON THE FOURTH UNIVERSAL DEFINITIONS OF MYOCARDIAL INFARCTION. THE UPPER REFERENCE LIMIT (URL) OF TROPONIN, DEFINED THE 99TH PERCENTILE OF cTnI DISTRIBUTION IN A REFERENCE POPULATION, HAS BEEN CONFIRMED THE DECISION THRESHOLD FOR DE DIAGNOSIS.Performed By: #### HSTROPN, BMP #### [facility] [address] [place] [address] Dr. Jose RojasXR CHEST 1 Von [id number] CHEST 1 VEXAMINATION: XR CHEST 1 V [...] Electronically authenticated by: STORM CONDE Date: 2021-12-31 13:[address] [place], [place] [address]XR LSPINE 2_3 VIEWSon [id number] LSPINE 2_3 VIEWSEXAMINATION: XR LSPINE 2_3 VIEWS [...] Electronically authenticated by: HEAVENLY LOUIS Date: 2021-10-31 08:[address] [place], [place] [address]A1C HEMOGLOBINon [id number] (Bld) [Mass fraction]7.5 % [employer] Other Glucose - FINGER STICKon 32-79-0314Oujvfpk [Mass/Vol] 107 mg/dLMarlette Dejamor Other HbA1c (Bld) [Mass fraction]on 98-78-4681L2D HEMOGLOBIN [employer] Other Urinalysis - AUTOMATEDon 27-83-0912Ytovbtjeay (U) cloudyNssm [facility] Dejam[facility] Other Bilirubin Ql (U)NegativePivotal Software [place] Other Color (U)yellowPivotal Software [place] Other Glucose Ql (U)500Marlette Dejamor Other Hemoglobin Ql (U)moderatePivotal Software [place] Other Ketones Ql (U)NegativeP[employer] [place] Other Leukocyte esterase Test strip Ql (U)moderateMaulSoup Other Nitrite Ql (U)PositivePiv[employer] [place] Other pH (U)6.0 [pH][employer] Other Protein Ql (U)traceMaulSoup Other Specific gravity (U) [Rel density]1.025[facility] Other Urobilinogen (U) [Mass/Vol]0.2 mg/dLMarlette Dejamor Other Urinalysis - AUTOMATEDNosaint luke's [facility] hospital [facility] Other Urine Cultureon 92-36-2046Hlteomab identified Cx Nom (U)[employer] Other A1C HEMOGLOBINon 95-01-8800YnU6l (Bld) [Mass fraction] 7.4 %[employer] Other Glucose - FINGER STICKon 96-54-5757Orrsivw [Mass/Vol] 168 mg/dLMarlette Dejamor Other HbA1c (Bld) [Mass fraction]on 04-42-2745L5H HEMOGLOBIN [employer] Other a1c HEMOGLOBINon 29-71-9906SjB4y (Bld) [Mass fraction] 6.6 %[employer] Other Glucose - FINGER STICKon 39-03-1516Dhszoqk [Mass/Vol] 171 mg/dLNoPivotal Software Dejamor Other HbA1c (Bld) [Mass fraction]on 01-40-9257P8P HEMOGLOBIN [employer] Other Vital Signs Date TimeVital SignValuePerforming IrpsszxlaIltztppp64-68-4454 08:57-0400Body ozupmx568.8 cmBenjamin Ball DO Work Phone: [facility]10-27-2025 08:57-0400 Body mass index (BMI) [Ratio]39.3 kg/h7Pdscsocv Ball DO Work Phone: [facility]10-27-2025 08:57-0400 Body okiogv089.28 kgBenjamin Ball DO Work Phone: [facility]10-21-2025 09:16-0400 Body tmaclu677.8 cmBenjamin Ball DO Work Phone: [phone] [place], [place] 4411910-21-2025 09:16-0400 Body mass index (BMI) [Ratio]37.6 kg/d3Dhbzztxy Ball DO Work Phone: 1([phone])[address] [place], [place] 4411910-21-2025 09:16-0400 Body hquyee393.03 kgBenjamin Ball DO Work Phone: 1(419)[address] [place], [place] 4411910-21-2025 09:16-0400 Diastolic blood hovptvtl12 mm[Hg]Fahad Ball DO Work Phone: 1(419)[address] [place], [place] 441[address]10-21-2025 09:16-0400 Heart rate68 /minBenjamin Ball DO Work Phone: 1(419)[address] [place], [place] 4411910-21-2025 09:16-0400 Respiratory rate12 /minBenjamin Ball DO Work Phone: 1(419)[address] [place], [place] 4411910-21-2025 09:16-0400 Systolic blood mm[Hg]Fahad Ball DO Work Phone: 1(419)[address] [place], [place] 4411908-13-2025 16:05-0400 Body evosfh980.8 cmBenjamin Ball DO Work Phone: 1([phone])[address] [place], [place] 441[address]08-13-2025 16:05-0400 Body mass index (BMI) [Ratio]37.7 kg/q9Wlojejwj Ball DO Work Phone: 1(419)[address] [place], [place] 441[address]08-13-2025 16:05-0400 Body .2 kgBenjamin Ball DO Work Phone: 1(419)[address] [place], [place] 441[address]08-13-2025 16:05-0400 Diastolic blood aobvhdgp80 mm[Hg]Fahad Ball DO Work Phone: 1(419)[address] [place], [place] 441[address]08-13-2025 16:05-0400 Heart rate70 /minBenjamin Ball DO Work Phone: 1(419)[address] [place], [place] 441[address]08-13-2025 16:05-0400 Respiratory rate18 /minBenjamin Ball DO Work Phone: [phone]08-13-2025 16:05-0400 SaO2% (BldA) [Mass fraction]96 %Fahad Ball DO Work Phone: [phone] [place], [place] 0796108-13-2025 16:05-0400 Systolic blood oeeylbbd219 mm[Hg]Fahad Ball DO Work Phone: [phone] [place], [place] 0796107-09-2025 15:49-0400 Body guvtaq410.8 cmBenjamin Ball DO Work Phone: 1(689)[facility] [place], [place] 0796107-09-2025 15:49-0400 Body mass index (BMI) [Ratio]38.3 kg/l2Avgwehxt Ball DO Work Phone: 1([phone])[address] [place], [place] 441[address]07-09-2025 15:49-0400 Body ilhlao925.27 kgBenjamin Ball DO Work Phone: 1(413)[facility] [place], [place] 0796107-09-2025 15:49-0400 Diastolic blood paxqzktw08 mm[Hg]Fahad Ball DO Work Phone: 1([phone] [place], [place] 0796107-09-2025 15:49-0400 Heart rate73 /minBenjamin Ball DO Work Phone: 1(106)[facility] [place], [place] 0796107-09-2025 15:49-0400 Respiratory rate12 /minBenjamin Ball DO Work Phone: 1(309)[facility] [place], [place] 0796107-09-2025 15:49-0400 Systolic blood kgwuuouj140 mm[Hg]Fahad Ball DO Work Phone: 1(773)[facility] [place], [place] 0796105-07-2025 16:14-0400 Body bmelgy720.8 cmTr[facility]05-07-2025 16:14-0400Body mass index (BMI) [Ratio]38.2 kg/z1JzlymepcyTr[facility]05-07-2025 16:14-0400Body axfaux098.7 kgTr[facility]05-07-2025 16:14-0400Diastolic blood renxkgxu90 mm[Hg][facility] 08-21-2024 16:14-0400Heart rate73 /[facility] 08-21-2024 16:14-0400Respiratory rate18 /[facility] 08-21-2024 16:14-8178XpH2% (BldA) [Mass fraction]94 %[facility]05-07-2025 16:14-0400Systolic blood qlwegucv412 mm[Hg][facility]01-29-2025 16:05-0500Body aabzsj524.8 cmTr[facility]01-29-2025 16:05-0500Body mass index (BMI) [Ratio]38.7 kg/b4SeqckdomgTr[facility]01-29-2025 16:05-0500Body legeks957.24 kgTr[facility]01-29-2025 16:05-0500Diastolic blood jnmjehoy42 mm[Hg] [facility]01-29-2025 16:05-0500Heart rate70 /[facility]01-29-2025 16:05-0500Respiratory rate18 /[facility]01-29-2025 16:05-5478JgL3% (BldA) [Mass fraction]95 % [facility]01-29-2025 16:05-0500Systolic blood luaqjwrl038 mm[Hg][facility]01-07-2025 15:52-0500Body neuihu478.8 cm [facility]01-07-2025 15:52-0500Body mass index (BMI) [Ratio]39.8 kg/y5WanymqmqgTr[facility]01-07-2025 15:52-0500Body agszni459.81 kgTr[facility]01-07-2025 15:52-0500Diastolic blood ltahlnct86 mm[Hg][facility]01-07-2025 15:52-0500 Heart rate76 /[facility]01-07-2025 15:52-0500 Respiratory rate12 /[facility]01-07-2025 15:52-0500 Systolic blood poxgteed334 mm[Hg][facility]10-23-2024 16:30-0400Body mjobmx446.8 cmTr[facility]10-23-2024 16:30-0400Body mass index (BMI) [Ratio]38.5 kg/v5GaekjmcslTr[facility]10-23-2024 16:30-0400Body lxbysy419.78 kgTr[facility] 02-07-2024 16:30-0400Diastolic blood mm[Hg][facility]10-23-2024 16:30-0400Heart rate74 /[facility] 02-07-2024 16:30-0400Respiratory rate18 /[facility] 02-07-2024 16:30-3675NeB1% (BldA) [Mass fraction]97 %[facility]10-23-2024 16:30-0400Systolic blood hvxcnqhu142 mm[Hg][facility]07-17-2024 16:16-0400Body ydfqpv915.8 cmTr[facility]07-17-2024 16:16-0400Body mass index (BMI) [Ratio]39.2 kg/g6VngsewjgvTrinity [facility]07-17-2024 16:16-0400Body opmrul609.83 [facility]07-17-2024 16:16-0400Diastolic blood ibhaleop45 mm[Hg] [facility]07-17-2024 16:16-0400Respiratory rate16 /min [facility]07-17-2024 16:16-0146WsU6% (BldA) [Mass fraction]93 %[facility]07-17-2024 16:16-0400Systolic blood odjpjtqa776 mm[Hg][facility]07-03-2024 15:43-0400 Body myjnsb513.8 cmTr[facility]07-03-2024 15:43-0400Body mass index (BMI) [Ratio]39.2 kg/f4ZgpisknxmTr[facility]07-03-2024 15:43-0400Body irvmxk206.94 kgTr[facility]07-03-2024 15:43-0400Diastolic blood dkakqfdh60 mm[Hg][facility] 10-18-2023 15:43-0400Heart rate77 /[facility] 10-18-2023 15:43-0400Respiratory rate12 /[facility] 10-18-2023 15:43-0400Systolic blood usqqguml477 mm[Hg][facility]05-29-2024 13:15-0400Body mass index (BMI) [Ratio]39.86 kg/n5IaugfrsJian Alberto MD Work Phone: [facility] HospitalInhjaa53-29-5671 13:15-0400Body aavcou381 kg Jian Alberto MD Work Phone: c[facility] HospitalVlntki35-89-9706 13:15-0400Diastolic blood cacxqpwv03 mm[Hg]Jian Alberto MD Work Phone: c[facility] HospitalEzbbmu68-10-8976 13:15-0400Heart rate72 /min Jian Alberto MD Work Phone: c[facility] HospitalOvrzoj76-41-9661 13:15-0400Systolic blood ketefuiv621 mm[Hg]Jian Alberto MD Work Phone: c[facility] HospitalKyrhjt25-91-5345 13:51-0400Body auaegm941.8 cmGiovanni Mulligan MD Work Phone: [facility]04-19-2024 13:51-0400Body .29 kgGiovanni Mulligan MD Work Phone: [facility]04-11-2024 12:44-0400Respiratory rate 18 /minPacc 6 Work Phone: [facility]03-26-2024 15:26-0400Body hucdlc537.8 cmTr[facility]03-26-2024 15:26-0400Body mass index (BMI) [Ratio]39.4 kg/z8ZedrkjgxuTr[facility]03-26-2024 15:26-0400Body jmtawj126.73 kgTr[facility]03-26-2024 15:26-0400Diastolic blood yimkdgxz84 mm[Hg][facility]03-26-2024 15:26-0400 Heart rate73 /[facility]03-26-2024 15:26-0400Systolic blood nhbijazw446 mm[Hg][facility]03-06-2024 16:14-0500 Body ofsxef137.8 cmTr[facility]03-06-2024 16:14-0500Body mass index (BMI) [Ratio]39.4 kg/l2WnceeuxczTr[facility]03-06-2024 16:14-0500Body oefhqk005.73 kgTr[facility]03-06-2024 16:14-0500Diastolic blood vyjtsuww49 mm[Hg][facility] 06-21-2023 16:14-0500Heart rate70 /[facility] 06-21-2023 16:14-0500Respiratory rate18 /[facility] 06-21-2023 16:14-9939NsT8% (BldA) [Mass fraction]95 %[facility]03-06-2024 16:14-0500Systolic blood foaoauir359 mm[Hg][facility]03-04-2024 13:05-0500Body aybkeo288.29 kgLigia Colmenares MD Work Phone: [facility]03-04-2024 13:05-0500Diastolic blood panbnhjx92 mm[Hg]Ligia Colmenares MD Work Phone: [facility]03-04-2024 13:05-0500Heart rate68 /min Ligia Colmenares MD Work Phone: [facility]03-04-2024 13:05-0500Systolic blood kxmotnxb882 mm[Hg]Ligia Colmenares MD Work Phone: [facility]01-03-2024 15:30-0500Body ulmqpl570.8 cmBenjamin Ball Other [facility]01-03-2024 15:30-0500 Body mass index (BMI) [Ratio]39.91 kg/s2Mekmtutc Ball Other [facility] Other 01-03-2024 15:30-0500Body mtrdxa183.19 kgBenjorge Aceves Other [facility] Other 01-03-2024 15:30-0500Body biebuh906.18 kgDO Fahad Aceves Work Phone: [facility]01-03-2024 15:30-0500 Diastolic blood vhvafrag17 mm[Hg]Fahad Aceves Other [facility]01-03-2024 15:30-0500 Respiratory rate16 /minBenjorge Aceves Other [facility] Other 01-03-2024 15:30-0500Systolic blood ycgjqomo903 mm[Hg] Fahad Aceves Other [facility]12-06-2023 11:46-0500 Blood Pressure LocationAntonia [facility] [place] [address]162-06-2023 11:46-0500Diastolic blood ptwqmees28 mm[Hg]Antonia [facility] [place] [address]162-06-2023 11:46-0500Heart rate69 /minAntonia [facility] [place] [address]162-06-2023 11:46-0500Systolic blood yenwitns619 mm[Hg]Antonia [facility] [place] [address]161-22-2023 16:15-0500Body ugrcef984.8 cmTondra Mapus Other [facility]11-22-2023 16:15-0500 Body mass index (BMI) [Ratio]39.65 kg/g8Rpeltu Mapus Other [employer] Other 11-22-2023 16:15-0500Body bisepx594.38 kgTondra Mapus Other [facility] Other 11-22-2023 16:15-0500Body .37 kgDO Fahad Ball Work Phone: [facility]11-22-2023 16:15-0500 Diastolic blood xwvrpodh74 mm[Hg]Tondra Mapus Other [facility]11-22-2023 16:15-0500 Respiratory rate18 /minTondra Mapus Other [employer] [facility] Other 11-22-2023 16:15-7450GxA3% (BldA) [Mass fraction]96 % Tondra Mapus Other [employer] [facility] [employer] Other 11-22-2023 16:15-0500Systolic blood zkiamzwi847 mm[Hg] Tondra Mapus Other [facility]10-06-2023 14:45-0400 Body joqdim520.8 cmBenjamin Ball Other [facility] Other 10-06-2023 14:45-0400Body mass index (BMI) [Ratio] 39.17 kg/o8Vnapinis Ball Other [employer] Other 10-06-2023 14:45-0400Body ulgdqe974.83 kgBenjamin Ball Other [employer] Other 10-06-2023 14:45-0400Diastolic blood ieaqesfy38 mm[Hg] Fahad Ball Other [employer] Other 10-06-2023 14:45-0400Respiratory rate18 /minBenjamin Ball Other [employer] Other 10-06-2023 14:45-0400Systolic blood neqkquwf924 mm[Hg] Fahad Aceves Other [employer] Other 08-10-2023 15:30-0400Body ljewxv673.8 cmTondra Mapus Other [employer] Other 08-10-2023 15:30-0400Body mass index (BMI) [Ratio] 39.22 kg/w0Fgndqx Mapus Other [employer] Other 08-10-2023 15:30-0400Body .01 kgTondra Mapus Other [employer] Other 08-10-2023 15:30-0400Diastolic blood mm[Hg] Tondra Mapus Other [employer] Other 08-10-2023 15:30-0400Respiratory rate18 /minTondra Mapus Other [employer] Other 08-10-2023 15:30-9514LcE3% (BldA) [Mass fraction]95 % Tondra Mapus Other [employer] Other 08-10-2023 15:30-0400Systolic blood yhjflapr082 mm[Hg] Tondra Mapus Other [employer] Other 07-03-2023 15:30-0400Body utxpep641.8 cmBenjamin Ball Other [employer] Other 07-03-2023 15:30-0400Body mass index (BMI) [Ratio]39.6 kg/e2Mgciwwug Ball Other [employer] Other 07-03-2023 15:30-0400Body hfmaoh392.19 kgBenjamin Ball Other [employer] Other 07-03-2023 15:30-0400Diastolic blood zgzeuuun97 mm[Hg] Fahad Ball Other [employer] Other 07-03-2023 15:30-0400Respiratory rate16 /minBenjamin Ball Other [employer] Other 07-03-2023 15:30-0400Systolic blood ahndutqi057 mm[Hg] Fahad Ball Other [employer] Other 05-08-2023 16:30-0400Body .8 cmTondra Mapus Other [employer] Other 05-08-2023 16:30-0400Body mass index (BMI) [Ratio] 39.93 kg/t3Rzkqtn [employer] Other [employer] Other 05-08-2023 16:30-0400Body mvluet868.24 kgTondra Mapus Other [employer] Other 05-08-2023 16:30-0400Diastolic blood vvsizasy63 mm[Hg] Tondra Mapus Other [employer] Other 05-08-2023 16:30-0400Respiratory rate18 /minTondra Mapus Other [employer] Other 05-08-2023 16:30-5368IbW3% (BldA) [Mass fraction]94 % Tondra Mapus Other [employer] Other 05-08-2023 16:30-0400Systolic blood gtbbawsy563 mm[Hg] Tondra Mapus Other [employer] Other 04-03-2023 16:30-0400Body amdnwo892.8 cmBenjamin Ball Other [employer] Other 04-03-2023 16:30-0400Body mass index (BMI) [Ratio]40.2 kg/c4Auhapewu Ball Other [employer] Other 04-03-2023 16:30-0400Body aphexl394.1 kgBenjamin Ball Other [employer] Other 04-03-2023 16:30-0400Diastolic blood znwhxgiz10 mm[Hg] Fahad Ball Other [employer] Other 04-03-2023 16:30-0400Respiratory rate16 /minBenjamin Ball Other [employer] Other 04-03-2023 16:30-0400Systolic blood acfwcgrz629 mm[Hg] Fahad Ball Other [employer] Other 02-02-2023 16:15-0500Body .8 cmTondra Mapus Other [employer] Other 02-02-2023 16:15-0500Body mass index (BMI) [Ratio] 40.79 kg/b4Bpzwva [employer] Other [employer] Other 02-02-2023 16:15-0500Body xwayjz610.96 kgTondra Mapus Other [employer] Other 02-02-2023 16:15-0500Diastolic blood ufvddpbk25 mm[Hg] Tondra Mapus Other [employer] Other 02-02-2023 16:15-0500Respiratory rate18 /minTondra Mapus Other [employer] Other 02-02-2023 16:15-4356BsA8% (BldA) [Mass fraction]93 % Tondra Mapus Other [employer] Other 02-02-2023 16:15-0500Systolic blood kgrqkxmy379 mm[Hg] Tondra Mapus Other [employer] Other 01-18-2023 16:30-0500Body cuccft466.8 cmBenjamin Ball Other [employer] Other 01-18-2023 16:30-0500Body mass index (BMI) [Ratio] 41.23 kg/w9Qebbiver Ball Other [employer] Other 01-18-2023 16:30-0500Body grquoi877.36 kgBenjamin Ball Other [employer] Other 01-18-2023 16:30-0500Diastolic blood pbnyytgo92 mm[Hg] Fahad Ball Other [employer] Other 01-18-2023 16:30-0500Respiratory rate20 /minBenjamin Ball Other [employer] Other 01-18-2023 16:30-0500Systolic blood acxghral979 mm[Hg] Fahad Ball Other [employer] Other 07-07-2022 14:45-0400Body xnepov191.8 cmTondra Mapus Other [employer] Other 07-07-2022 14:45-0400Body mass index (BMI) [Ratio] 40.31 kg/b4Lzuyve Mapus Other [employer] Other 07-07-2022 14:45-0400Body .46 kgTondra Mapus Other [employer] Other 07-07-2022 14:45-0400Diastolic blood qffkscne62 mm[Hg] Tondra Mapus Other [employer] Other 07-07-2022 14:45-0400Respiratory rate20 /minTondra Mapus Other [employer] Other 07-07-2022 14:45-9145RfR0% (BldA) [Mass fraction]96 % Tondra Mapus Other [employer] Other 07-07-2022 14:45-0400Systolic blood pzeamcdn506 mm[Hg] Yamilex Foster Other [employer] Other 04-27-2022 15:15-0400Body xiccoy133.8 cmPdang Greene Other [employer] Other 04-27-2022 15:15-0400Body mass index (BMI) [Ratio] 38.74 kg/h2Tpskjpyisel Greene Other [employer] Other 04-27-2022 15:15-0400Body omqpmwzansx98.2 [degF]Celestina Ramona Other [employer] Other 04-27-2022 15:15-0400Body fydfou086.47 kgPayisel Greene Other [employer] Other 04-27-2022 15:15-0400Diastolic blood mm[Hg] Celestina Ramona Other [employer] Other 04-27-2022 15:15-0400Respiratory rate18 /minPayisel Ramona Other [employer] Other 04-27-2022 15:15-6097NlK1% (BldA) [Mass fraction]99 % Celestina Ramona Other [employer] Other 04-27-2022 15:15-0400Systolic blood bjxlnbjy260 mm[Hg] Celestinajcarlos Greene Other [employer] Other 03-15-2022 15:30-0400Body vcykhl917.8 cmTondra Mapus Other [employer] Other 03-15-2022 15:30-0400Body mass index (BMI) [Ratio] 40.89 kg/m8Ewwdsf Mapus Other [employer] Other 03-15-2022 15:30-0400Body asthoz490.28 kgTondra Mapus Other [employer] Other 03-15-2022 15:30-0400Diastolic blood onxambfx58 mm[Hg] Tondra Mapus Other [employer] Other 03-15-2022 15:30-0400Respiratory rate20 /minTondra Mapus Other [employer] Other 03-15-2022 15:30-3207JrT1% (BldA) [Mass fraction]95 % Tondra Mapus Other [employer] Other 03-15-2022 15:30-0400Systolic blood mm[Hg] Tondra Mapus Other [employer] Other 12-08-2021 16:15-0500Body ytxtmn390.8 cmTondra Mapus Other [employer] Other 12-08-2021 16:15-0500Body mass index (BMI) [Ratio] 40.89 kg/t7Vspgpa Mapus Other [employer] Other 12-08-2021 16:15-0500Body jvriap415.28 kgTondra Mapus Other [employer] Other 12-08-2021 16:15-0500Diastolic blood izzosgxm93 mm[Hg] Tondra Mapus Other [employer] Other 12-08-2021 16:15-0500Respiratory rate20 /minTondra Mapus Other [employer] Other 12-08-2021 16:15-6611NsJ8% (BldA) [Mass fraction]97 % Tondra Mapus Other [employer] Other 12-08-2021 16:15-0500Systolic blood slloloke583 mm[Hg] Tondra Mapus Other [employer] Other 09-22-2021 15:00-0400Body icmapk004.8 cmTondra Mapus Other [employer] Other 09-22-2021 15:00-0400Body mass index (BMI) [Ratio] 39.81 kg/d4Hwntwa Mapus Other [employer] Other 09-22-2021 15:00-0400Body ykquup146.87 kgTondra Mapus Other [employer] Other Encounters Encounter DateEncounter TypeCare ProviderFacilityStart: 02-10-2025 End: 24-71-2870pdsjzftmwuPiuroxiw Ball DO Work Phone: [facility]: 02-10-2025 End: 66-48-6892Yzpstqn encounter procedureJustin Delano Rosario DO-[facility] Work Phone: Start: 02-04-2025 End: 04-18-3427gypvfirktsQqspgbxi Ball DO [facility]2025 End: [id number] encounter procedureBenjorge Aceves DO-[facility] Work Phone: Start: 11-27-2024 End: 71-24-7406ifuhngvyapJfvksdhq Ball DO Work Phone: [facility] Work Phone: Start: 11-27-2024 End: [id number] encounter procedureYamilex Nba Bull [facility] Work Phone: Start: 10-23-2024 End: 31-32-0641xdwtbncxnuIxhadocm Ball DO Work Phone: [facility] Work Phone: Start: 10-23-2024 End: 32-08-1766Lpmlgfk encounter procedureBejorge Aceves DO-[facility] Work Phone: Start: 10-23-2024 End: 93-72-8139Eggvnfk encounter statusBejorge Aceves [facility]tart: [id number]-patient / Non-visitOutside Provider-[facility] Work Phone: Start: 08-21-2024 End: 52-61-6217bpeytlfwieMlflldybnAvita Health System [facility] Work Phone: Start: 08-21-2024 End: 50-08-4707Qwpwnwk encounter procedureFirsthealth [facility] Physician GroupACUTECARE [facility] Work Phone: Start: 82-98-6603Dew-patient / Non-visitFirelands Physician Group-[facility] Work Phone: Start: 07-12-2024 End: 38-19-4895exjaaeboceDCKTPM MOUKACleveland [facility] Start: 05-15-2024 End: 28-40-9167pbwljhvwthZxevtvmhfToledo Hospital Work Phone: Start: 05-15-2024 End: 20-98-7976Zscldhw encounter procedureFirsthealth [facility] Hospital Physician [facility] Work Phone: Start: 04-23-2024 End: 09-15-8306cnciefhatcQxqatgikjToledo Hospital Work Phone: Start: 04-23-2024 End: 26-20-4876Pjgeejp encounter procedureFirsthealth [facility] Hospital Physician [facility] Work Phone: Start: 02-07-2024 End: 08-41-3033hlsxftjhluLklquvgtfToledo Hospital Work Phone: Start: 02-07-2024 End: 71-60-8241Ruwtqmz encounter procedureFirsthealth [facility] Physician [facility] Work Phone: Start: 22-48-1255ypvptkesquISCYGHMCleveland Clinictart: 68-95-1041Qeg-patient / Non-visit [facility] Physician [facility] Work Phone: Start: 01-15-2024 End: 05-30-5534Kmigstyqs encounterJada Wilkins APRN.CNP Work Phone: UrologyStart: 11-01-2023 End: 10-71-1035uszwpbcpqrIuygvwlioToledo Hospital Work Phone: Start: 11-01-2023 End: 53-44-0889Pnwrzia encounter procedureFirsthealth [facility] Physician [facility] Work Phone: Start: 10-18-2023 End: 38-07-5564rllpdtbphuYpypertakToledo Hospital Work Phone: Start: 10-18-2023 End: 32-02-3651Nnrvvifcb for general adult medical examination without abnormal findingsUniversity Hospitals Geneva Medical Centertart: 10-18-2023 End: 11-18-2946Ybcnnzd encounter procedureFirsthealth [facility] Hospital Physician GroupRegency [facility] Work Phone: Start: 83-71-3258Twrmhhmpk encounterJada Wilkins APRN.CNP Work Phone: UrologyStart: 09-13-2023 End: 45-00-0108lwycqaphzoBwpdtml W Angermeier MD Work Phone: UrologyStart: 09-13-2023 End: 20-90-6932Nbvodlz encounter procedureJian Alberto MD Work Phone: UrologyComment on above:Acquired buried penis (Primary Dx); Scarring of penisStart: 08-04-2023 End: 43-49-4488Clahwot encounter procedureGiovanni Mulligan MD Work Phone: UrologyComment on above:Acquired buried penis (Primary Dx)Start: 08-04-2023 End: 76-47-0288mfnycsbrbeKJRZCH SANTIAGOFacility:[facility] Hospitaltart: 07-28-2023 End: 89-89-5114gmucwlelisCRSAMZLMarin ALBERTOFacility:[facility] Start: 27-91-2735Udl-patient / Non-visitFirsthealth Montgomery Memorial Hospital Physician Group-[facility] Work Phone: Start: 07-27-2023 End: 03-64-2019Mpesuxdgx to establishmentConfluence Health Main 6 Work Phone: [facility] MAINStart: 07-27-2023 End: 85-26-9751Lwbfaljuqokfl examination donePa Main 6 Work Phone: [facility] Work Phone: Start: 07-27-2023 End: 12-02-1034vfvmfbpgrjUldq Main 6 Work Phone: Pre AnesthesiaComment on above:Pre-operative examination (Primary Dx); Primary hypertension; Hyperlipidemia, unspecified hyperlipidemia type; Coronary artery disease involving coronary bypass graft of [place] heart without angina pectoris; Chronic systolic CHF (congestive heart failure) (HCC); Paroxysmal atrial fibrillation (HCC); Gastroesophageal reflux disease, unspecified whether esophagitis present; Type 2 diabetes mellitus with other specified complication, with long-term current use of insulin (HCC); Class 2 obesity due to excess calories without serious comorbidity with body mass index (BMI) of 39.0 to 39.9 in adultStart: 24-86-6629Uorotjjxb for other preprocedural examinationFAHAD [facility] NorthStart: 95-40-9266Rtadthkjh encounterNoy Mary RN Work Phone: UrologyComment on above:Copper Etcher - OtherStart: 07-11-2023 End: 75-40-1629pnqbaizuhvUvtuelqkyAvita Health System [facility] Hospital Work Phone: Start: 07-11-2023 End: 99-56-0828Cjbqnop encounter procedureDevika Physician GroupRegency Hospital [facility] West Work Phone: Start: 06-21-2023 End: 54-32-9132Vqxdkqf encounter procedureFormerly [facility], [facility] Hospitalnoam Physician GroupACUTECARE HEALTH SYSTEM Work Phone: Start: 06-19-2023 End: 11-26-3672jannphgttcRTUCM RIAD M.D.Facility:[facility] Hospitaltart: 06-19-2023 End: 07-24-7464Itwkwsd encounter Lauri Colmenares MD Work Phone: CardiologyComment on above:Coronary artery disease involving [place] coronary artery of [place] heart, unspecified whether angina present (Primary Dx); History of non-ST elevation myocardial infarction (NSTEMI); Hx of CABG; Primary hypertension; Other hyperlipidemiaStart: 14-12-3870Jqz-patient / Non-visitOscarsentara martha [facility] Physician GroupMulticare [facility] Work Phone: Start: 60-43-9048Cxmitixzc encounterNoy Mary RN Work Phone: UrologyComment on above:Copper Etcher - OtherStart: 05-03-2023 End: 14-59-3217mxcrnuugkoSpuveep W Angermeier MD Work Phone: UrologyStart: 05-02-2023 End: 36-25-7417krswlfepxeWmvnrvn Calvalyse Other noMaulSoup Other Start: 54-60-0046Jmoomg outpatient visit 10 minutes Yarelis CalveyFPG Malini OrthopedicsStart: 05-02-2023 End: 94-63-7627Mfspesc encounter procedureDO Fahad Aceves Work Phone: firAxxana Physician Group-Start: 04-19-2023 End: 67-77-8396qhzohghvyiOuzhydbu Yola Other noMaulSoup Other Start: 74-88-8829Abqwma outpatient visit 25 minutes Fahad AcevesBanner [facility] Hospital West Medical ClinicStart: 04-19-2023 End: 84-03-5565Pywqxcw encounter procedureDO Fahad Aceves Work Phone: firAxxana Physician Group-[facility] Work Phone: Start: 03-30-2023 End: 78-38-1273ezomdaonwxGnnjddf Neeta Other [facility] Dejamor Other Start: 42-82-0100Vdecmgksu encounterColleen CalvalyseFPG Referral CoordinatorStart: 03-28-2023 End: 21-51-7595nolmzljkucJzmxfqr Calvalyse Other [facility] Other Start: 55-03-5123Cvvtwi outpatient visit 15 minutes Yarelis CalveyFPG [facility] OrthopedicsStart: 03-22-2023 End: 49-64-0748hvqkwxgzzfESLNZO K MAPUSFacility:EU RickkStart: 03-22-2023 End: 93-50-2133Ygeikse encounter procedureGregbrandt BUSH [facility] Start: 03-08-2023 End: 98-36-9177Pqbcspaxbj RecurringDO Fahad Aceves Work Phone: [facility] Work Phone: Start: 03-08-2023(DM) DiabetesTondra MapusFirelands Coordinated Care ClinicStart: 03-08-2023 End: 65-79-9938uoudmsepytCL Fahad Aceves Work Phone: [employer] Dejamor Other Start: 03-08-2023 End: 90-15-2147Lstwhxy encounter procedureDO Fahad Aceves Work Phone: [facility] Work Phone: Start: 02-22-2023 End: 89-33-7864pdkredqcqiJypwmhg Calvey Other [facility] Dejamor Other Start: 54-91-1492Tsntss outpatient visit 15 minutes Yarelis Nayak OrthopedicsStart: 01-20-2023 End: 19-25-9549jcyypjvilwMsqxdhgt Ball Other [employer] Dejamor Other Start: 84-61-3904Ljzgdt outpatient visit 15 minutes Fahad Aceves Medical ClinicStart: 12-09-2022 End: 86-46-0164yhfpoqrbexSqqplt Mapus Other [employer] Computersaint luke's east hospital Dejamor Other Start: 15-27-0010Rbgdwgvlh encounterTondra Palomo [facility]inated Care ClinicStart: 58-47-2159kndnpifiboMGRWOA MAPUS Facility:[facility]tart: 11-24-2022(DM) DiabetesTondra MapusFirelands Coordinated Care ClinicStart: 11-24-2022 End: 62-99-9216uzknivysjsZftssr Mapus Other noMaulSoup Other Start: 25-07-1053Kxpjykekd encounterTondra ElidaG EndocrinologyStart: 10-17-2022 End: 93-76-0520rlpcymvysyMqlubrgk Ball Other noMaulSoup Other Start: 31-64-1063Btanuhoan for general adult medical examination without abnormal findingsFahad Aceves Medical ClinicStart: 67-20-7356Wbvccksj preventive med est patient 40-64yrsBenjorge Aceves Medical ClinicStart: 79-49-8565notcsvdeigCY FAHAD BALLFacility:A1Ftiqg: 08-24-2022 End: 52-84-5326hdjxmwdxifREQLA D [facility]EEFacility:F2Btqox: 08-22-2022(DM) DiabetesTondra MapusFirelands Coordinated Care ClinicStart: 08-22-2022 End: 08-87-8107ezxwovupivHkaqdd Mapus Other noMa[employer] Other Start: 07-18-2022 End: 89-20-2456aszwghpxemUzurozsq Ball Other noMa[employer] Other Start: 75-63-7055Sqwgkb outpatient visit 15 minutes Fahad Rosalinda Aceves Medical ClinicStart: 05-19-2022(DM) DiabetesTondra Mapus [facility] ClinicStart: 05-19-2022 End: 55-43-0768enmdgskqmcHojsxi Mapus Other noMa[employer] Other Start: 05-04-2022 End: 30-59-5658bxpsdtymipUjodscyp Ball Other noMa[employer] Other Start: 79-55-6361Oxxtop outpatient visit 25 minutes Fahad Aceves Medical ClinicStart: 04-19-2022 End: 33-59-4517vufdqblbijUV FAHAD BALLFacility:H4Zdeyi: 04-05-2022 End: 39-08-5875wiuhonprdtYI FAHAD BALLFacility:D8Womdp: 03-30-2022 End: 07-15-0456tpvtmknfcyGQ FAHAD BALLFacility:Q4Lnpai: 02-24-2022 End: 09-67-8484phtmjpbhfdAP FAHAD BALLFacility:J4Ezoyk: 02-17-2022 End: 47-19-3106mvmwrmxvtsKS FAHAD BALLFacility:J0Igewp: 02-16-2022 End: 31-72-1081jmgxzvlfuaWK FAHAD BALLFacility:D3Haxtc: 02-14-2022 End: 52-94-7714rhzyqgxxwrRkbilg Mapus Other [employer] Other Start: 29-29-9084Ayqwcozip encounterTondra MapusFPG EndocrinologyStart: 02-11-2022 End: 72-75-8598fwmddzdrcaDY Fahad Aceves Work Phone: [facility] Work Phone: Start: 02-11-2022 End: 37-00-1156Pkbjpay encounter procedureDO Fahad Aceves Work Phone: [facility] Main CampusStart: 02-10-2022 End: 12-23-8430ztxbkfukldGD SIMBA TSAIRBELFacility:A3Fsxqg: 02-01-2022 Registered RecurringDO Fahad Aceves Work Phone: [facility] Start: 02-01-2022 End: 58-42-9103nivctcgbazFssibx Mapus Other [employer] Other Start: 70-33-8866Hwdokthwp encounterTondra MapusFPG EndocrinologyStart: 81-30-8196yyxvcdmduvXK FAHAD BALLFacility:K9Ojpjq: 12-31-2021 End: 31-38-1016aovowiyyedKPXVRZF D KATKOFacility:K4Motml: 09-24-5212chgymaxmqr PETER D HIGHLANDERFacility:D8Zsjdo: 11-15-2021 End: 93-41-3998ttninrgnwxCF FAHAD BALLFacility:J0Qwben: 10-29-2021 End: 38-95-8216inajlfrvqoBW FAHAD BALLFacility:X0Crdnl: 10-21-2021(DM) DiabetesTondra MapusDevika Coordinated Care ClinicStart: 10-21-2021 End: 81-17-0252cxbqenuwsgTngkva Mapus Other [employer] Dejam[employer] Other Start: 09-09-2021 End: 77-62-0420voydvzcrfkGJHFP D ERIKANDERFacility:X5Quyio: 08-11-2021 End: 22-84-5419xptvomqpjmYisqbp Dymond Other [employer] Dejamor Other Start: 63-60-3998Fcgtfb outpatient visit 25 minutes [facility] ClydeStart: 06-29-2021(DM) DiabetesTondra Bull [facility] Care ClinicStart: 06-29-2021 End: 04-12-3373eenjezhqnaFwjryt Mapus Other [employer] Dejamor Other Start: 05-12-2021 End: 22-45-1137dtargslywtJhcedu Mapus Other [employer] Other Start: 85-82-2128Qbbhxthay encounterTondra Palomous [facility] Care ClinicStart: 05-04-2021 End: 93-79-6198fqkjhuqowmHeqjfp Mapus Other [employer]Ma[employer] Other Start: 28-70-7497Xccedtyff encounterTondra Bull [facility] Care ClinicStart: 03-24-2021(DM) DiabetesTondra Bull [facility] Care ClinicStart: 03-24-2021 End: 81-39-3981exgnwbpdybCndghi Mapus Other Nort Dejamor Other Start: 28-42-8419Ekixqmm evaluation of patient and reportYamilex [facility] Procedures DateProcedureProcedure DetailPerforming ClinicianStart: 06-72-7710LJ lumbar spine 2-3V*Fahad Aceves DO Work Phone: Start: 04-22-6709Ysh routine ecg w/least 12 lds i&r onlyLigia Colmenares MD Work Phone: Start: 19-40-9384Rsbmt dip stick/tablet rgnt auto w/o microscopyBulk Order ProviderStart: 06-27-6053Ujzralgf artery bypass grafts x 5 Antonia BUSH Coronary artery bypass graftBenjorge Aceves Other History of coronary artery bypass graftingHx of CABG Ligia Colmenares MD Work Phone: Plan of Treatment DateCare ActivityDetailAuthorStart: 29-33-0729UO Controlled (<130/80)BP Controlled (<130/80)[facility]art: 79-68-5509CM Controlled (<130/80)BP Controlled (<130/80)[facility] Centertart: 02-14-2024 End: 47-21-5526Isauira encounter migmwviwa29/30/2024 10:15 AM EDT Office Visit Urology [address] [address] Jian Alberto MD [address] [place] [address] 5 month f/u ED per cc chartUrologyComment on above:5 month f/u ED per cc chart Start: 55-79-6756Uzfiotmwzz A1c cbijmzjkkdgAtU9KKwbviyloy ClinicStart: 47-35-3875Mowsk-19 Vaccine ( season)Covid-19 Vaccine ( season)[facility] Centertart: 19-66-9330Bgbflizol vaccinationDiley Ridge Medical Center Start: 68-96-9176Oarapwqbzh Health ScreeningBehavioral Health ScreeningOhio State University Wexner Medical Centertart: 63-16-4280Xwthrptnvc AssessmentDepression AssessmentOhio State University Wexner Medical Centertart: 01-46-8875Lfyrhkdsu B surface antibody levelLDL Cholesterol [facility] Centertart: 84-47-2776Vuefw-19 Vaccine ( season)Covid-19 Vaccine ()[facility] Centertart: 83-39-8929Cxxtiuyvq vaccinationInfluenza Vaccine (#1)[facility] Centertart: 34-31-5979Aadkurfbov A1c qpugqnzfzhqJmK2PAljcfksvx ClinicStart: 24-19-3499TKS Vaccine (1 - 1-dose 60+ series)RSV Vaccine (1 - 1-dose 60+ series)[facility]art: 17-66-4037TJP Vaccine (1 - Risk 60-74 years 1-dose series)RSV Vaccine (1 - Risk 60-74 years 1- dose series)[facility] Centertart: 39-75-2659Sgalyszl specific antigen measurementProstate Cancer Screening DiscussionOhio State University Wexner Medical Centertart: 01-11-2012 Shingrix Vaccine (1 of 2)Shingrix Vaccine (1 of 2)[facility] Centertart: 98-13-8556Xodvxfjqf for malignant neoplasm of colonOhio State University We[facility]ner Medical Centertart: 06-78-4579Xxigc microalbumin profileDTaP,Tdap,Td Vaccine (1 - Tdap)[facility] Centertart: 23-17-5489Qgaeih PCP Team Chronic Disease VisitAnnual PCP Team Chronic Disease VisitOhio State University [facility] Medical Centertart: 81-32-8460Cgsvtfb ScreeningAnxiety ScreeningOhio State University [facility] Medical Centertart: 97-32-0865Rcvtabmbor ScreeningDepression ScreeningOhio State University [facility] Medical Centertart: 46-55-9021Injkhcrmu C screeningHepatitis C ScreeningOhio State University [facility] Medical Centertart: 12-35-8809QJB screeningHIV ScreeningOhio State University [facility] Medical Centertart: 95-43-8397Oauqbimu foot examinationDiabetic Foot ExamOhio State University [facility] Medical Centertart: 49-14-1243Ringbzmy screeningDilated Retinal ExamDiley Ridge Medical Center Start: 59-78-9712Kmncptfyv B screeningUrine Albumin:Creatinine RatioOhio State University Wexner Medical Centertart: 26-14-0599Towtieccesab vaccinationPneumococcal Vaccine (1 of 2 - PCV)[facility] Centertart: 67-43-3158Chqew-19 Vaccine (#1)Covid-19 Vaccine (#1) [facility] CenterComprehensive metabolic 2000 panel - Serum or PlasmaTrinity Health System Twin City Medical CenterPatient EducationUniversity Hospitals [facility] Work Phone: URINALYSIS, REFLEX MICROSCOPICURINALYSIS, REFLEX MICROSCOPIC Lab Routine Screening for genitourinary condition Ordered: 09/13/2023[facility] Work Phone: comment on above:Ordered: 09/13/2023XR Hip - left 2 [facility]XR Lumbar spine 2 or 3 [facility] Immunizations Immunization DateImmunizationNotesCare RoaoxvgfYvzjbmtv78-61-1404ODYMK-20 Pfizer (bivalent)Fahad Aceves Other [facility]12-07-2021COVID-19 Vaccine Pfizer - Documentation Purposes OnlyBejorge Aceves Other [facility]04-19-2021COVID-19 Vaccine Pfizer - Documentation Purposes OnlyBenjorge Aceves Other [facility]03-29-2021COVID-19 Vaccine Pfizer - Documentation Purposes OnlyBenjorge Ball Other [facility] Payers DatePayer CategoryPayerPolicy [id number] Health InsuranceC[facility] [id number] 2015-Present [phone] [address] [address] [place] [address] O [id number] 2.16.840.1.649429.3.57[id number] 2.16.840.1.751181.3.57[id number] 2.16.840.1.020985.3.579.[id number] 2.16.840.1.135956.3.579.2.[id number] 2.16.840.1.215986.3.579.[id number] 2.16.840.1.521714.3.579.[id number] 2.16.840.1.568833.3.579.2.1[id number] 2.16.840.1.594833.3.579.2.64162-34-5952Zhkeqwg3334490 2.16.840.1.916452.3.579.2.78900-73-1404Ldlzmfp7472112 2.16.840.1.709149.3.579.2.82942-68-3944Zxbluhc1344179 2.16.840.1.882809.3.579.2.20778-43-5089Znttaab9190878 2.16.840.1.004506.3.579.2.27696-71-8411Hqxyhlk0029945 2.16.840.1.999758.3.579.[id number] 2.16.840.1.827872.3.579.[id number] 2.16.840.1.283617.3.579.2.77108-95-4986Dlzu-jyq 7sx86910-s071-1081-j1a5-924ki[id number] 2.16.840.1.990882.59Fsovmnt9159529 2.16.840.1.170588.[id number] 2.16.840.1.470883.3.579.2.531 Social History DateTypeDetailFacilityUnknown if ever smokedNorth Dejamor Other Start: 05-03-2023 End: 54-60-3079Viy Assigned At [facility] Hospitaltart: 26-35-9057Atj Assigned At [facility] Hospitaltart: 03-22-2023 End: 10-72-9361Caghcoz smoking statusNever smoked tobacco (finding)[facility] Hospitaltart: 16-98-3019Pirppiq use and exposureSmokeless tobacco non-userOhio State University Wexner Medical Centertart: 05-03-2023 End: 81-38-8106Iiqlbkw of Social functionOhio State University Wexner Medical Centertart: 47-83-6720Sby Assigned At BirthNot on fileOhio State University Wexner Medical Centertart: 07-27-2023 End: 10-43-7211Qwxdema intakeCurrent drinker of alcohol (finding)[facility] Centertart: 04-23-2024 End: 38-89-9496DbyUcle (finding)[facility] Medical Equipment Procedure CodeEquipment CodeEquipment Original TextEquipment IdentifierDates Functional Status UpkmMqwgrsouyeQuroqsDeawcrgl81-38-3132Dopqkytjgl StatusN/AExec[facility] Clinical Notes 01-06-2021 to 11-27-2024 Note Date & RbntCmxtAwzqvxav66-36-9155 Evaluation note* Diagnosis Onset Date Resolution Status Admit Date BMI 37.0-37.9, adult acuteAugust 2024 3:59pmDietary counseling and surveillanceacuteAugust 2024 3:59pmMixed hyperlipidemiaacuteAugust 2024 3:59pmVitamin B 12 deficiencyacuteAugust 2024 3:59pmHTN (hypertension)deletedAugust 2024 3:59pmType 2 diabetes mellitusdeletedAugust 2024 3:59pmAccidental fallacuteOctober 2024 9:04amLow back painacuteOctober 2024 9:04am Pain in joint involving left pelvic region and thighacuteOctober 2024 9:04am [facility] Work Phone: 1(464) 894-994808-13-2025 Evaluation note* Diagnosis Onset Date Resolution Status Admit Date BMI 37.0-37.9, adult acuteAugust 2024 3:59pmDietary counseling and surveillanceacuteAugust 2024 3:59pmMixed hyperlipidemiaacuteAugust 2024 3:59pmVitamin B 12 deficiencyacuteAugust 2024 3:59pmHTN (hypertension)deletedAugust 2024 3:59pmType 2 diabetes mellitusdeletedAugust 2024 3:59pmAccidental fallacuteOctober 2024 9:04amLow back painacuteOctober 2024 9:04am Pain in joint involving left pelvic region and thighacuteOctober 2024 9:04amAvascular necrosis of bone of left hipacuteOctober 2024 8:56am [facility] Work Phone: 1(401) 313-883407-09-2025 Evaluation note* Diagnosis Onset Date Resolution Status [...] 2024 3:59pmType 2 diabetes mellitusdeletedAugust 2024 3:59pm [facility] Work Phone: 1(879) 748-938405-07-2025 Evaluation note* Diagnosis Onset Date Resolution Status Admit Date BMI 38.0-38.9,adult acuteMay 2024 4:01pmDietary counseling and surveillanceacuteMa2024 4:01pmMixed hyperlipidemiaacuteMay 2024 4:01pmVitamin B 12 deficiencyacute May 2024 4:01pmHTN (hypertension)deletedMa2024 4:01pmType 2 diabetes mellitusdeletedMay 2024 4:01pmChronic HFrEF (heart failure with reduced ejection fraction)acuteJuly 2024 3:43pmHypertensionacuteJuly 2024 3:43pmIschemic cardiomyopathyacuteJuly 2024 3:43pmLeft leg painacuteJuly 2024 3:43pmMixed hyperlipidemiaacuteJuly 2024 3:43pmObesityacuteJuly 2024 3:43pmType 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 with diabetic polyneuropathyacuteJuly 2024 3:43pmType 2 diabetes mellitus with hyperglycemiaacuteJuly 2024 3:43pmScreening PSA (prostate specific antigen)noneactiveJuly 2024 3:43pm Wellness examinationnoneactiveJuly 2024 3:43pm [facility] Work Phone: 1(880) 995-109703-28-2025 NoteUT Cardiology - [facility] Subjective Caden Wills is a 64 y.o. year old male patient being seen for 1 year follow up. Patient had Echo. Patient states he has no new complaints. Patient Active Problem List Diagnosis Chest pain NSTEMI (non-ST elevated myocardial infarction) ([facility]/HCC) Obesity Diabetes mellitus, type II, insulin dependent (CMS/HCC) Respiratory insufficiency Hypomagnesemia Hypertension Hyperlipidemia Postoperative atrial fibrillation (CMS/HCC) Coronary artery disease involving [place] coronary artery of [place] heart without angina pectoris Chronic systolic heart failure (CMS/HCC) History of coronary artery bypass graft Acquired buried penis Erectile dysfunction associated with type 2 diabetes mellitus (CMS/HCC) Scarring of penis Anticoagulated Balanoposthitis GERD (gastroesophageal reflux disease) Hidden penis Phimosis Type 1 diabetes ([facility]/HCC) Family History Problem Relation Name Age of [...] was admitted in December 2021 [facility] with chest pain and diagnosed with [...] Behavior is cooperative. Judgmen (more content not included)...[facility] 04-23[facility] Evaluation note* Diagnosis Onset Date Resolution [...] 2 diabetes mellitusdeleted May 15, 2024 4:00pm [facility] Work Phone: 1(759) 225-447910-23-2024 Evaluation note* Diagnosis Onset Date Resolution Status [...] 2 diabetes mellitus with hyperglycemiaacuteJanuary 2024 3:40pm [facility] Work Phone: 1(647) 669-944310-08-2024 NoteI was available for discussion and questions prior to patient visit. Plan was discussed prior to implementation and I was present for delivery of the plan. I agree with the assessment and plan and have modified the documentation as necessary. Caroline Silav PharmD Cardiology Outpatient Clinical Pharmacist 01/23/24[facility]10-08-2024 NotePatient contacted clinic and updated labs were reviewed with patient. Stated he has been having leg pain (for 2-3 years); discussed high-risk of PAD due to severe CAD and DM. Will relay information to Dr. Kasper and discuss possibility of DVT/PAD work-up with imaging. Will continue to follow-up with patient regarding above issues. Caroline Silva PharmD Cardiology Outpatient Clinical Pharmacist 01/23/24[facility]10-08-2024 NotePharmacist Visit - Lipid Phone Consult Provider: Dr. Kasper Department: [facility] Cardiology SUBJECTIVE/OBJECTIVE Caden Wills is [...] visit for 01/23. Opal Peña, PharmD, PGY1 [employer] 01/23/24 [place] [facility]iologyAC[facility]09-30-2024 Telephone encounter Note* Telephone Encounter - Jada Wilkins APRN.CNP - 01/15/2024 2:53 PM EDT See previous telephone encounter from 10/04/2023. Keflex has been on auto refill, and [facility] request. Jada Wilkins APRN.CNP [facility] Work Phone: 1(367) 470-779309-30-2024 Telephone encounter Note* Telephone Encounter - Jada Wilkins APRN.CNP - 01/15/2024 2:53 PM EDT ----- Message from Kourtney Sena sent at 01/15/2024 9:13 AM EDT ----- Regarding: [facility] [place] [facility] refill request for Cephalexin - it is not on his current med list. Please advise and thank you, Kourtney [facility]09-30-2024 Miscellaneous Notes* Telephone Encounter - Jada Wilkins [...] EDT ----- Regarding: [facility] [place] [facility] refill request for Cephalexin - it is not on his current med list. Please advise and thank you, Kourtney documented in this encounterDiley Ridge Medical Center09-30-2024 NotePharmD Cardiology Consult - Lipids Provider: Dr. Kasper Department: [facility] Cardiology Caden Wills is a [...] for PCSK9. Rx will be sent to [facility] to determine coverage and provide [...] Caroline Silva PharmD Cardiology Outpatient Clinical Pharmacist 01/15/2024[facility]09-30-2024 NotePatient returned call; will complete labs by end of the week. Requested call back on Sunday 01/21 for follow-up. Orders placed. Caroline Silva PharmD Cardiology Outpatient Clinical Pharmacist 01/16/2024[facility]06-19-2024 Telephone encounter Note * Telephone Encounter - [...] Alberto in the fall. Left voicemail at [facility] in [place], advising that Caden A Elio does NOT need refill on Keflexand asking them to take it off auto refill. Jada Wilkins APRN.CHUY [facility] Work Phone: 1(700) 939-260506-19-2024 Miscellaneous Notes* Telephone Encounter - Jada Wilkins APRN.CNP - 10/04/2023 4:24 PM EDT Keflex was prescribed for 1 month after buried penis surgery on 07/28/2023. Called Caden Wills. He reports trying to cancel ref[facility] but was unsuccessful. Denies concerns about infection. Reminded him that he should follow up with Dr. Alberto in the fall. Left voicemail at [facility] in [place], advising that Caden A Kilmichael does NOT need refill on Keflexand asking [...] and thank you, Kourtney documented in this encounterDiley Ridge Medical Center06-19-2024 Telephone encounter Note * Telephone Encounter - Jada Wilkins APRN.CNP - 10/04/2023 4:18 PM EDT ----- Message from Kourtney Hodge Patient Service Spec sent at 10/04/2023 7:36 AM EDT ----- Regarding: [facility] for Cephalexin 500 mg- it is not listed in his med list . Please advise and thank you, Kourtney [facility]05-29-2024 NoteHNO ID: [id number] Author: JIAN ALBERTO MD Service: ? Author [...] tablet Take 20 mEq by mouth. omega 2-pbb-kil-fish oil (FISH OIL) 100-160-1,000 mg cap Take 1,000 mg by mouth. No current facility-administered medications on file prior to visit. DATA/OR LABS TO BE REVIEWED: (Simple=1 data point; Complex= 2 or more) No results found for: PSA Creatinine (mg/dL) Date Value 07/29/2023 0.71 07/28/2023 0.75 07/27/2023 0.73 No results found for: TESTOST Noy Mary spray applicator Staff Note: I performed a face to [...] fall for recheck. Jian Alberto, [facility]05-29-2024 History of Present illness Narrative* Jian Alberto [...] tablet Take 20 mEq by mouth. omega 4-ijk-evq-fish oil (FISH OIL) 100-160-1,000 mg cap Take 1,000 mg by mouth. No current facility-administered medications on file prior to visit. DATA/OR LABS TO BE REVIEWED: (Simple=1 data point; Complex= 2 or more) No results found for: PSA Creatinine (mg/dL) Date Value 07/29/2023 0.71 07/28/2023 0.75 07/27/2023 0.73 No results found for: TESTOST Noy Mary, spray applicator Staff Note: I performed a face to [...] recheck. Jian Alberto MD documented in this encounterDiley Ridge Medical Center05-29-2024 NotePatient Outreach (UROLMN) CADEN WILLS ([id number]) 1960 M Date Time Provider Department 09/13/23 JIAN ALBERTO During your visit today, we recorded the following information about you: Allergies As of Date: 09/13/2023 (No Known Allergies) Date Reviewed: 09/13/2023 Reviewed by: Rafal Mulligan MA - Fully Assessed Visit Diagnosis:Screening for genitourinary condition [Z13.89] Order(s):URINALYSIS, REFLEX MICROSCOPIC [[id number]] Order #: [id number] Prescriptions as of 09/18/2023 - amiodarone (PACERONE) [...] Take 20 mEq by mouth. - omega 0-ubt-vpn-fish oil (FISH OIL) 100-160-1,000 mg cap Take [...] excess calories without *07/27/2023 Encounter Status:Closed by Syrenaica Fidelis Security SystemsUSER on 09/18/23[facility] 08-04-2023 History of Present illness Narrative* Giovanni Mulligan MD - 08/04/2023 2:30 PM EDT RUBY Wills is a 63 year old [...] & Prosthetic Surgery Fellow documented in this encounterDiley Ridge Medical Center04-19-2024 NoteHNO ID: [id number] Author: GIOVANNI MULLIGAN MD Service: ? Author [...] MD Male Genitourinary Reconstruction AND Prosthetic Surgery FellowOhiohealth Hardin Memorial Hospital04-13-2024 NoteHNO ID: [id number] Author: GRAZYNA PURDY MD Service: Urology Author Type: Resident Type: Progress Notes Filed: 07/29/2023 08:41 Note Text: [facility] UROLOGY PROGRESS NOTE Name: Caden Wills Bed: Main - Periop OR/Main - * Date: 07/29/2023 After Hours [facility] Urology Service Pager: [phone] ASSESSMENT AND PLAN Caden Wills is a [...] SSI inpatient Grazyna Purdy MD Urology Resident [facility] Pager [phone] For weekend or after hours issues [place] [phone] 6:53 AM 07/29/2023 Subjective SUBJECTIVE - See [...] 182* 82 Imaging All relevant recent imaging reviewedOhiohealth Hardin [facility] Hospital04-12-2024 NoteHNO ID: [id number] Author: JUICE GEE MD Service: Urology Author Type: Resident Type: Progress Notes Filed: 07/28/2023 16:17 Note Text: [facility] UROLOGY PROGRESS NOTE Name: Caden Wills Bed: Main - Periop OR/Main - * Date: 07/28/2023 After Hours [facility] Urology Service Pager: [phone] ASSESSMENT AND PLAN Caden Wills is a [...] SSI inpatient Juice Gee MD Urology Resident [facility] Pager [phone] For weekend or after hours issues please page the on-call urology pager [phone] 07/28/2023 4:16 PM Subjective SUBJECTIVE - See [...] 182* 82 Imaging All relevant recent imaging reviewedOhiohealth Hardin [facility]04-12-2024 NoteHNO ID: [id number] Author: JEFFY MARTINEZ SRNA Service: ? 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, arm band and care steam blocker Staffing Anesthesiologist: Chilango Curiel MD SRNA: Jeffy [...] July 28, 2023 TIME: 10:48 AM CSN: [id number] Hardin [facility]04-11-2024 Instructions* Patient Instructions* Kevin Goldsmith APRN.ASP NET DEVELOPER - 07/27/2023 1:04 PM EDT PATIENT PREOPERATIVE INSTRUCTIONS Dr. Alberto has scheduled you for your procedure at this surgery center: [facility] Scheduling Office: [phone] [place] [address]. Please read below carefully for your personalized [...] not take the day of surgery omega 8-uzz-dml-fish oil (FISH OIL) 100-160-1,000 mg cap Do [...] or other anticoagulants without consulting with your agency operator or prescribing physician. - Stop Vitamin E, [...] Procedures: - YOU MUST HAVE A RESPONSIBLE TOWER OPERATOR TAKE YOU HOME. A PLANNING MANAGER OR TREATMENT PLANT OPERATOR CANNOT BE MADE A RESPONSIBLE TOWER OPERATOR. - We recommend that a responsible person [...] call the Monday before. Your surgeon s surgical scheduler will tell you what time to call the office. - If you have not reached the departmental surgical scheduler by 5 P.M., call [phone] after 5 P.M. the day before your surgery. Please be aware that emergency situations arise, which may delay or change your surgical time. If this happens, we will notify you as soon as possible and regret any inconvenience. If you already have an Advance Directive, please fax a copy to [phone] or email to for it to be [...] day. Kevin Goldsmith APRN.CNP documented in this encounterDiley Ridge Medical Center04-11-2024 History and physical note * Kevin Goldsmith [...] artery disease involving coronary bypass graft of [place] heart without angina pectoris CAD, hx of DE s/p CABG x 5 in Dec 2021. [...] cardiac events (< 1% chance of , DE, CHF, malignant ventricular arrhythmias or high grade [...] note 06/19/23 notes the following, Echo 03/30/22 ([facility]) - Global LV systolic function is [...] have a large neck STOP-Bang Score: 5 [id number] Score: Age: <65 Sex: male CHF history: Yes Hypertension history: Yes Stroke/TIA/thromboembolism history: No Vascular disease history: Yes Diabetes history: Yes [id number] Score: 4 ARISCAT Score: Age: 51-80 Preoperative [...] POST-CIRCUMCISION ADHESIONS (N/A) at the request of Dr. Alberto, Jian Barrera MD for consultation. My final recommendation will be communicated back to the requesting physicianby way of shared medical record or letter. Subjective The patient has the following: ACTIVE PROBLEM LIST Acquired Buried Penis Scarring of Penis Erectile Dysfunction Associated With Type 2 Diabetes Mellitus (Hcc) (Hcc) Primary Hypertension Hyperlipidemia Coronary Artery Disease Involving Coronary Bypass Graft of [place] Heart Without Angina Pectoris Chronic Systolic Chf [...] 20 mEq by mouth. Taking Yes omega 4-cim-iut-fish oil (FISH OIL) 100-160-1,000 mg cap Take [...] 414 QTC Calculation (Bazett) 440 Calculated P Sanford 53 Calculated R Sanford 20 Calculated T Sanford 86 Impression NORMAL SINUS RHYTHM LOW VOLTAGE QRS NONSPECIFIC ST ABNORMALITY ABNORMAL ECG Confirmed by LIGIA COLMENARES M.D. ([id number]), general expeditor Juan MTitus nicoleie ([id number]) on 06/19/2023 2:11:39 PM 03/30/2022 Echo- [facility] Global LV systolic function is [...] 2:46 PM PAGER/CONTACT #: documented in this encounterDiley Ridge Medical Center04-02-2024 Miscellaneous Notes* Telephone Encounter - Noy Mary RN - 07/18/2023 3:38 PM EDT Called and spoke to Caden Wills regarding pre op issues. Instructed patient to take last dose of Farxiga on 07/23. Informed patient that his case is currently scheduled as first round with a 6:00 arrival time at [facility]. States that he will be going home after pre ops on 07/26 and coming back the following day. No other questions or concerns expressed. Noy Mary RN documented in this encounterDiley Ridge Medical Center03-04-2024 History of Present illness Narrative* Ligia Colmenares MD - 06/19/2023 1:00 PM EST Images from the original note were not included. [facility] Rob Borden Department of Cardiovascular Medicine SECTION [...] METs). 12/06/2022 Robyn Miller Cardiology- [facility] HPI Pleasant 62-year-old man with prior history of coronary disease status post percutaneous intervention to chronically occluded LAD in 2007. Additional history includes diabetes, hypertension and hyperlipidemia. He was admitted in December 2021 to [facility] with chest pain and diagnosed with [...] 1 tablet by mouth every afternoon. omega 2-dif-tij-fish oil (FISH OIL) 100-160-1,000 mg cap Take [...] JVD, carotids well felt, no bruits. CARDIAC: [place] palpable in the 5th intercostal space mid [...] the reports only: 03/30/2022 Echo- [facility] Global LV systolic function is [...] limits in size. 01/07/2022 CABGx5- [facility] CABG X 5; CPB; LEFT LEG VEIN HARVEST; INTRAOP FREDI Coronary artery bypass grafting x5, AGARWAL to LAD, saphenous vein graft to diagonal and obtuse marginal branches, and saphenous vein graft to PDA and right posterolateral ventricular branch. 01/05/2022 Cardiac Cath- [facility] Mid RCA lesion is 99% [...] infiltrated over the right radial artery. A 6-Frisian Terumo Glidesheath slender was placed in right radial artery. Radial anti-vasospasm cocktail of verapamil 2.5 mg and nitroglycerin 200 mcg was administered through the sheath. All catheter exchanges were made over the [employer] guidewire. JL3.5 was used to engage the [...] cardiac events (< 1% chance of , [place], CHF, malignant ventricular arrhythmias or high grade [...] the patient follows up with an outside agency operator. 5. Diabetes mellitus: Managed by PCP. 6. [...] the follow up visit. Ligia Colmenares MD, FAC, [facility] CC: To use this Smartlink, specify the provider ID whose address you want to display, e.g., .PROVADDR[1 (where 1 is the provider ID). documented in this encounterDiley Ridge Medical Center03-04-2024 NoteHNO ID: [id number] Author: LIGIA COLMENARES MD Service: ? Author Type: Physician Type: Progress Notes Filed: 06/19/2023 13:23 Note Text: [facility] Rob Borden Department of Cardiovascular Medicine SECTION [...] METs). 12/06/2022 Robyn Miller Cardiology- [facility] HPI Pleasant 62-year-old man with prior history of coronary disease status post percutaneous intervention to chronically occluded LAD in 2007. Additional history includes diabetes, hypertension and hyperlipidemia. He was admitted in December 2021 to [facility] with chest pain and diagnosed with [...] 1 tablet by mouth every afternoon. omega 6-wry-yfj-fish oil (FISH OIL) 100-160-1,000 mg cap Take [...] JVD, carotids well felt, no bruits. CARDIAC: [place] palpable in the 5th intercostal space mid clavicular line, (more content not included)...[facility]02-28-2024 Miscellaneous Notes * Telephone Encounter - Noy Mary RN - 06/14/2023 10:03 AM EST error documented in this encounterDiley Ridge Medical Center02-28-2024 Miscellaneous Notes* Telephone Encounter - Noy Mary RN - 06/14/2023 9:44 AM EST Called Caden Wills and LVM to confirm surgery date of 07/[address] Alberto. Discussed pre op testing on 07/26 in [place], or he could make two trips. Asked him to confirm Asked patient to confirm receipt, and voice any questions or concerns. Number provided. Noy Mary RN documented in this encounterDiley Ridge Medical Center01-17-2024 NoteHNO ID: [id number] Author: JIAN ALBERTO MD Service: ? Author Type: Physician Type: Progress Notes Filed: 05/03/2023 14:28 Note Text: [facility] NEW PATIENT HISTORY AND PHYSICAL EXAM PATIENT INFO: Caden Wills 63 year old REFERRING M.D.: Antonia Bush MD [address] [address] This consult was requested by Dr. Bush for an opinion regarding buried penis and erectile dysfunction, and my final recommendations will be communicated to the requesting health care provider by way of the shared medical record for internal providers or letter via the [employer] for external providers. 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 , interested in future sexual life. MEDICATIONS: [...] excision of the sc (more content not included)...[facility]01-17-2024 NotePatient Outreach (UROLMN) CADEN WILLS ([id number]) 1960 M Date Time Provider Department 05/03/23 JIAN ALBERTO During your visit today, we recorded the following information about you: Allergies As of Date: 05/03/2023 (No Known Allergies) Date Reviewed: 05/03/2023 Reviewed by: Claudia Burt OCCA - Fully Assessed Visit Diagnosis:Screening for genitourinary condition [Z13.89] Order(s):URINALYSIS, REFLEX MICROSCOPIC [[id number]] Order #: [id number]. #:[id number] Prescriptions as of 05/08/2023 - metFORMIN ER [...] tablet by mouth every afternoon. - omega 5-sux-ltg-fish oil (FISH OIL) 100-160-1,000 mg cap Take 1,000 mg by mouth. - bumetanide (BUMEX ORAL) Take by mouth. Problem List As Of Date 05/03/2023 Noted Resolved Acquired buried penis [N48.83] 05/03/2023 Scarring of penis [N48.6] 05/03/2023 Erectile dysfunction associated with type 2 beverley*05/03/2023 Encounter Status:Closed by Syrenaica, PRODUSER on 05/08/23[facility] 05-02-2023 Evaluation note* Encounter Date Diagnosis [...] are maintaining regular scheduled appts with their agency operator. Post operative AF Amiodarone and Eliquis d/c [...] Follow these instructions at home: Medicines Take kvzh-dfb-cxzuksg and prescription medicines only as told by [...] provider. Document Revised: 06/30/2021 Document Reviewed: 06/30/2021 [employer] Patient Education 2022 [employer] Follow Up Care 11/25/2022 08:22:24 With:ROXANN BARR, Antonia Sharma, URL Address: [address] [place] [address]- When: Unknown [facility] 11-22-2023 Evaluation note* Encounter Date Diagnosis [...] or diabetes medication issues. 6. Prescriptions: [facility]: Sample toujeo max x1 pen given [...] Feb,MI 39.0-39.9,adult (ICD-10 - Z68.39) see above [facility] [...] Increases risk of serious infection. [facility] Other 08-25-2023 Evaluation note* Encounter Date Diagnosis Assessment Notes Treatment Notes Treatment Clinical Notes Nov, Type 2 diabetes mellitus with hy perglycemia (ICD-10 - E11.65) [facility] Other 08-14-2023 Reason for visit NarrativeTKM - REFERRAL UROLOGY - NEED TO INFORM PATIENT 11/28/22[facility] Other 08-10-2023 Evaluation note* Encounter Date Diagnosis [...] be requested at the timeof your visit. 10 Aug, 2023Dietary counseling and surveillance (ICD-10 - Z71.3) see [...] Nov, Erectile dysfunction (ICD-10 - N 52.9) [facility] Other 07-03-2023 Evaluation note* Encounter Date [...] are maintaining regular scheduled appts with their agency operator. No bleeding complications Oct,Type 2 diabetes mellitus [...] antigen) (ICD-10 - Z12.5)Yearly LADAN and PSA [facility] Other 05-08-2023 Evaluation note* Encounter Date Diagnosis Assessment Notes Treatment Notes Treatment Clinical Notes August, Type 2 diabetes mellitus with hy perglycemia (ICD-10 - E11.65) 1. Controlled, a Type 2 diabetes with A1c of 6.5% 2. Blood glucose levels according to [facility] Records 2 cgm download 08/09/22-08/22/22: Avg glucose 157. >250-0%, >180-26%, 70-180-74 %, <70-0%, <54-0%. CV 24%. Reviewed download with pt., frandyrn withglucose dropping after breakfast- recommend reducing breakfast [...] or diabetes medication issues. 6. Prescriptions: VERNA SHAWEVUE: None at this time. 7. Prescriptions will not be filled unless you are compliant with follow up appointments or have a follow up appointment scheduled as ordered by your provider. Refills should be requested at the timeof your visit. August,ietary counseling and surveillance (ICD-10 - Z71.3) see [...] After completiong CR plans [facility] Jul,rimary hypertension (ICD-10 - I10)This [...] bypass graft) (ICD-10 - Z95.1) [facility] Other 02-02-2023 Evaluation note* Encounter Date Diagnosis Assessment Notes Treatment Notes Treatment Clinical Notes May, Type 2 diabetes mellitus with hy perglycemia (ICD-10 - E11.65) 1. Controlled, a Type 2 diabetes with A1c of 6.9% 2. Blood glucose levels according to [facility] Records 2 cgm download 05/06/22-05/19/22: Avg glucose 189. [...] many carbs while at work. He willsee agency operator Monday to see if he will be [...] and surveillance (ICD-10 - Z71.3) see above 02 Feb, 2023HTN (hypertension) (ICD-10 - I10) On arb. 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 Pylori [facility] Other [id number] NotePROCEDURE: XR FOOT RT MIN 3 VIEWS [...] Electronically authenticated by: HEAVENLY LOUIS Date: 2022-02-25 06:39[facility]07-07-2022 Evaluation note* Encounter Date Diagnosis Assessment Notes Treatment Notes Treatment Clinical Notes Oct, Type 2 diabetes mellitus with hy perglycemia (ICD-10 - E11.65) 1. Uncontrolled, a Type 2 diabetes with A1c of 7.5% 2. Blood glucose levels above target. According to [facility] Records 2 cgm download 10/08/21- 10/21/21: Avg [id number]. >250- 13%, >180-48%, 70-180-39%, <70-0%, <54-0%. CV [...] x2 vials/syringes, shivani 2 x1 cgm. Oct, ietary counseling and surveillance (ICD-10 - Z71.3) [...] Oct,Vitamin B 12 deficiency (ICD-10 - E53.8) [facility] [...] 3 days. Jul,Hematuria, unspecified (ICD-10 - R31.9) [facility] Other 03-15-2022 Evaluation note* Encounter Date Diagnosis Assessment Notes Treatment Notes Treatment Clinical Notes Jun, Type 2 diabetes mellitus with hy perglycemia (ICD-10 - E11.65) 1. Uncontrolled, a Type 2 diabetes with A1c of 7.4% 2. Blood glucose levels above target. According to [facility] Records 2 cgm download 06/16/21- 06/29/21: Avg [id number]. >250- 1%, >180-38%, 70-180-61%, <70-0%, <54-0%. CV [...] medication issues. 6. Prescriptions: None needed. Jun, 2Dietary counseling and surveillance (ICD-10 - Z71.3) see [...] mellitus with hy perglycemia (ICD-10 - E11.65) [facility] Other 12-08-2021 Evaluation note* Encounter Date Diagnosis Assessment Notes Treatment Notes Treatment Clinical Notes Mar, Type 2 diabetes mellitus with hy perglycemia (ICD-10 - E11.65) 1. Controlled, a Type 2 diabetes with A1c of 6.6% 2. Blood glucose levels improved from last visit. According to [facility] Records 2 cgm download 03/11/21-03/24/21: Avg glucose 162. >250- 1%, >180-29%, 70-180-70%, <70- 0%, <54-0%. CV 22.5%. Reviewed download with pt. readings above target from missed meal dose or late meal dose. Discussed with pt trial lyumjev which he could take 5 minutes before meal up to 20 minutes after meal. He is agreeable, r eviewed this would take place of Ghostery. He verbalizes understanding. Pt with history of [...] 40.0-44.9, adult (ICD-10 - Z68.41) see above [facility] Other 09-22-2021 Evaluation note* Encounter Date Diagnosis Assessment Notes Treatment Notes Treatment Clinical Notes Dec, Type 2 diabetes mellitus with hy perglycemia (ICD-10 - E11.65) Erwin came in today for evaluation of his Shivani report after returning to work and continuing to usethe device. Erwin is happy with the system and wants us to send a prescription to [facility] in [place]. Erwin's BG has averaged 163 for the [...] at MidNight. No further changes. TMapus JAKE, RELIABILITY TECHNOLOGIST-C, BC-ADM [facility] [employer] Other Chief complaint+Reason for visit Narrative* Reason for Visit BMI 38.0-38.9,adult Dietary counseling and surveillance Mixed hyperlipidemia Vitamin B 12 deficiency [facility] Work Phone: Evaluation + Plan noteExec[facility] Evaluation noteNo InformationNortEllwood Medical Center [employer] Other Evaluation noteNo assessment information available [facility] Work Phone: Evaluation note* Diagnosis Screening for genitourinary condition Screening for other and unspecified genitourinary condition documented in this encounter [facility] Center[facility]* Diagnosis Coronary artery disease involving [place] coronary artery of [place] heart, unspecified whether angina present- Primary History of non-ST elevation myocardial infarction (NSTEMI) Old myocardial infarction Hx of CABG Postsurgical aortocoronary bypass status Primary hypertension Unspecified essential hypertension Other hyperlipidemia [facility] in this encounter [facility] Diagnosis Onset Date Resolution Status BMI 39.0-39.9,adult acuteDietary counseling and surveillanceacuteMixed hyperlipidemiaacuteVitamin B 12 deficiencyacuteChronic HFrEF (heart failure with reduced ejection fraction) acuteHypertensionacuteIschemic cardiomyopathyacuteParoxysmal atrial fibrillation acuteType 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 with diabetic polyneuropathyacuteType 2 diabetes mellitus with hyperglycemiaacute [facility] Work Phone: Evaluation note* Diagnosis Pre-operative examination- Primary Preoperative examination, unspecified Primary hypertension Unspecified essential hypertension Hyperlipidemia, unspecified hyperlipidemia type Coronary artery disease involving coronary bypass graft of [place] heart without angina pectoris Chronic systolic CHF [...] note 06/19/23 notes the following, Echo 03/30/22 ([facility]) - Global LV systolic function is difficult to assess but appears preserved, estimated ejection fraction is 55 to 60%, unable to accurately evaluate wall motion abnormalities. * Assessment & Plan Note - Kevin Goldsmith APRN.CNP - 07/27/2023 2:29 PM EDT Associated Problem(s): Coronary artery disease involving coronary bypass graft of [place] heart without angina pectoris CAD, hx of DE s/p CABG x 5 in Dec 2021. [...] cardiac events (< 1% chance of , DE, CHF, malignant ventricular arrhythmias or high grade [...] BP today 114/66. documented in this encounter [facility]* Diagnosis Acquired buried penis- Primary Other specified disorder of penis documented in this encounter [facility] note* Diagnosis Acquired buried penis- Primary Other specified disorder of penis Scarring of penis Other specified disorder of penis documented in this encounter [facility] note* Diagnosis Screening for genitourinary condition Screening for other and unspecified genitourinary condition documented in this encounter [facility] note* Diagnosis Onset Date Resolution Status Chronic HFrEF (heart failure with reduce d ejection fraction) acuteHypertensionacuteIschemic cardiomyopathyacuteMixed hyperlipidemiaacuteType 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 with diabetic polyneuropathyacuteType 2 diabetes mellitus with hyperglycemiaacuteScreening PSA (prostate specific antigen)noneactive Wellness examinationnoneactive [facility] Work Phone: Evaluation note* Diagnosis Onset Date Resolution Status Chronic HFrEF (heart failure with reduce d ejection fraction) acuteHypertensionacuteIschemic cardiomyopathyacuteMixed hyperlipidemiaacuteType 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 with diabetic polyneuropathyacuteType 2 diabetes mellitus with hyperglycemiaacuteScreening PSA (prostate specific antigen)noneactive Wellness examinationnoneactiveBMI 39.0-39.9,adultacuteDietary counseling and surveillanceacuteMixed hyperlipidemiaacuteVitamin B 12 [facility] Work Phone: Evaluation note* Diagnosis Onset Date Resolution Status BMI 38.0-38.9,adult acuteDietary counseling and surveillanceacuteMixed hyperlipidemiaacuteVitamin B 12 [facility] Work Phone: Evaluation note* Diagnosis Onset Date Resolution Status Admit Date BMI 38.0-38.9,adult acuteMay 2024 4:01pmDietary counseling and surveillanceacuteMa2024 4:01pmMixed hyperlipidemiaacuteMa2024 4:01pmVitamin B 12 deficiencyacute May 2024 4:01pmHTN (hypertension)deletedAugust 21, 2024 4:01pmType 2 diabetes mellitusdeletedMa2024 4:01pm [facility] Work Phone: History general Narrative - Reported* Type Description Date Medical History diabetes mellitus Medical HistoryhypertensionMedical HistorypancreatitisMedical HistoryHLPMedical HistoryR foot ulcerSurgical Historyheart stentSurgical HistoryRIGHT FOOT SECOND TOE AMPUTATED07/03Hospitalization Historysee aboveHospitalization HistoryGastric /2017 [facility] Other HisMojostreet general Narrative - Reported* Type Description Date Medical History diabetes mellitus Medical HistoryhypertensionMedical HistorypancreatitisMedical HistoryHLPMedical HistoryR foot ulcerSurgical Historyheart stentSurgical HistoryRIGHT FOOT SECOND TOE AMPUTATED07/03Surgical History5 Bypass surgery [facility]12/31/2021 Hospitalization Historysee aboveHospitalization HistoryGastric muzaop67/2017 [facility] Other HisMojostreet general Narrative - Reported* Type Description Date Medical History Heart failure with preserved eje ction fraction Medical HistoryAcute prostatitisMedical HistoryASHD (arteriosclerotic heart disease)Medical HistoryBalanitisMedical HistoryTransient atrial fibrillation Medical HistoryUnspecified open wound of unspecified toe(s) with damage to nail, subsequent encounterMedical HistoryType 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 with diabetic polyneuropathy, unspecified whether terminal press operator insulin useMedical HistoryLong term current use of [...] of nephrolithiasisMedical HistoryHistory of pancreatitisSurgical History LAP [id number] HistoryRIGHT FOOT SECOND TOE AMPUTATED07/03 Surgical History5 Bypass surgery [facility], CABG.4-5 [facility]12/31/2021 Surgical HistoryLHC PTCA/STENT [id number] HistoryCOLONOSCOPYHospitalization Historysee aboveHospitalization HistoryGastric xjjyqp25/2017[facility]2021 [facility] Other Hospital course Narrative No data available for this section [facility] Progress note No data available for this section [facility] Reason for referral (narrative) Referred by: Antonia BUSH MD [facility] Rehbhc for referral (narrative)* Outpatient Procedure (Routine) - ClosedSpecialtyDiagnoses / ProceduresReferred By ContactReferred To ContactUNIVERSITY [facility] Diagnoses Coronary artery disease involving [place] coronary artery of [place] heart, unspecified whether angina present History of non-ST elevation myocardial infarction (NSTEMI) Hx of CABG Primary hypertension Other hyperlipidemia Procedures ECG COMPLETE ECG ROUTINE ECG W/LEAST 12 LDS W/I&R Ligia Colmenares MD [address] [place] [address] [facility] [address] [place] [address] Referral IDStatusReasonStart DateExpiration DateVisits RequestedVisits [id number] Auto-Generated Referral / [facility] (narrative)No reason for referral information availableUniversity [facility] Work Phone: Chief Complaint and Reason for [...] :26pm Type 2 diabetes mellitus February 06, 024 4:26pm Chronic HFrEF (heart failure with [...] :00pm Type 2 diabetes mellitus May 15, 025 4:00pm Chief Complaint Admit Date METER [...] Chief Complaint Admit Date 6 month f/u 30 lm to r/s October 23 3:43pm Reason [...] 2024 3: 59pm Dietary counseling and surveillance 2024 3:59pm Mixed hyperlipidemia November 27, 2024 3 :59pm Vitamin B 12 deficiency November 27 3:59pm HTN (hypertension) November 27, 2024 3: 59pm Type 2 diabetes mellitus November 27 3:59pm Chief Complaint Admit Date back pain/possible broken pelvis February 04, 2025 9:04am Reason for Visit Admit Date BMI 37.0-37.9, adult November 27, 2024 3 :59pm Dietary counseling and surveillance 2024 3:59pm Mixed hyperlipidemia November 27, 2024 3 :59pm Vitamin B 12 deficiency November 27 3:59pm HTN (hypertension) November 27, 2024 3: 59pm Type 2 diabetes mellitus November 27 3:59pm Accidental fall February 04, 2025 9 :04am Low back pain February 04, 2025 9 :04am Pain in joint involving left pelvic stephan on and thigh February 04, 2025 9:04am Chief Complaint Admit Date back pain/possible broken pelvis February 04, 2025 9:04am [facility] ACEVES LT HIP AVASCULAR NEC ROSIS WX February 10, 2025 8:56am Reason for Visit Admit Date BMI 37.0-37.9, adult November 27, 2024 3 :59pm Dietary counseling and surveillance [facility] 2024 3:59pm Mixed hyperlipidemia November 27, 2024 3 :59pm Vitamin B 12 deficiency November 27 3:59pm HTN (hypertension) November 27, 2024 3: 59pm Type 2 diabetes mellitus November 27 3:59pm Accidental fall February 04, 2025 9 :04am Low back pain February 04, 2025 9 :04am Pain in joint involving left pelvic stephan on and thigh February 04, 2025 9:04am Avascular necrosis of bone of left hip O ctober 2024 8:56am Advance Directives Advance Directive Response Recorded Date/ [...] Referred Provider Yarelis Santacruz Referred Address [address] [facility] [place] [place] Referred Provider Specialty Orthopedic S urgery Referral [...] Diagnosis 1 Erectile dysfunction (N52.9) Referral Organization [facility] Referring Provider First Name Yamilex Referring Provider Last Name Bull Referring Provider Specialty Nurse Pract itioner Referred Organization Unknown Facility Referred Provider Antonia Bush Referred Provider Specialty Urology Referral Priority Routine Referral Appointment Date 2023-03-22 General Notes Tracie Alvarado 11/15 08:20:19 AM >Spoke to Poonam and patient scheduled for [place] office on 03/22/23 at 11am at [address] [facility] [address] in [place] [employer]. Jenny Tracie 11/28/2022 09:35:22 AM >Text message sent to patient requesting he call me for Referral details. Tracie Alvarado 11/28/2022 12:00:13 PM >Patient returns my call and is informed of appt. Reason Left great toe wound from new work boots - appt needs to be after 2pm Diagnosis 1 Type 2 diabetes david itus with hyperglycemia (E11.65) Referral Organization [facility] Referring Provider First Name Yamilex Referring [...] [facility] Diagnoses Coronary artery disease involving [place] coronary artery of [place] heart, unspecified whether angina present History of non-ST elevation myocardial infarction (NSTEMI) Hx of CABG Primary hypertension Other hyperlipidemia Procedures ECG COMPLETE ECG ROUTINE ECG W/LEAST 12 LDS W/I&R Ligia Colmenares MD [address] [address] [facility] [address] [place] [address] Referral IDStatusReasonStart DateExpiration DateVisits RequestedVisits [id number] Auto-Generated Referral [id number]-Bm VisitReasonCommentsPost-Op Visit Care Teams (unrecognized sec tion [...] Active Start: October 23, 2024 End: October 23enjorge Aceves DOAttending ProviderActiveStart: October 23, 2024 End: October 23, 2024 Team Status: Inactive Member Role Status Vianca Aceves DO Primary Care Provider Active Start: November 27, 2024 End: November 27, 2024Tona Nba Foster , APRNAttending ProviderActiveStart: November 27, 2024 End: November 27, 2024 Team Status: Inactive Member Role Status Dates Fahad Aceves DO Primary Care Provider Active Start: August 21, 2024 End: August 21, 2024Tondra Nba Mapus , APRNAttending ProviderActiveStart: August 21, 2024 End: August 21, 2024 Team Status: Active Member Role Status Vianca Aceves DO Primary Care Provider Active Start: July 13, 2024 Simba Kasper , MDAttending ProviderActiveStart: July 13, 2024 Team Status: Inactive Member Role Status Vianca Aceves DO Primary Care Provider Active Start: February 07, 2024 End: February 07, 2024Tondra K Mapus , APRNAttending ProviderActiveStart: February 07, 2024 End: February 07, 2024 Team Status: Inactive Member Role Status Vianca Aceves DO Primary Care Provide r, Attending Provider Active Start: April 23, 2024 End: April 23, 2024 Team Status: Active Member Role Status Vianca Aceves DO Primary Care Provider Active Start: January 20, 2024 Simba Kasper , MDAttending ProviderActiveStart: January 20, 2024 Team Status: Inactive Member Role Status Vianca Aceves DO Primary Care Provide r, Attending Provider Active Start: October 18, 2023 End: October 18, 2023 Team Status: Inactive Member Role Status Dates Fahad Aceves DO Primary Care Provider Active Start: November 01, 2023 End: November 01, 2023Tondra Nba Foster , APRNAttending ProviderActiveStart: November 01, 2023 End: November 01, 2023 Team Status: Active Member Role Status Dates Fahad Aceves DO Primary Care Provide r, Attending Provider Active Start: July 27, 2023 Team Status: Inactive Member Role Status Dates Tona Nba Foster , DISPLAY MECHANIC Attending Provider Active Start: March 08, 2023 End: March 08, 2023 Team Status: Inactive Member Role Status Dates Fahad Aceves , Primary Care Provider Active Start: March 08, 2023 End: March 08, 2023Tondra Nba Foster , APRNAttending ProviderActiveStart: March 08, 2023 End: March 08, 2023 Team Status: Inactive Member Role Status Dates Fahad Aceves DO Attending Provider Active Sta rt: April 19, 2023 End: April 19, 2023 Team Status: Inactive Member Role Status Dates Yarelis Santacruz MD Attending Provider Active Start: May 02, 2023 End: May 02, 2023 Team Status: Inactive Member Role Status Dates Fahad Aceves , Primary Care Provider Active Tondra Nba Foster , APRNAttending ProviderActive Team Status: Active Member Role Status Dates Fahad Aceves DO Primary Care Provider Active Tondra K Mapus , APRNAttending ProviderActiveTeam MemberRelationshipSpecialty Start DateEnd Date Antonia Bsuh [address] [place] [address] HjvaxqgadYajxurd64/9/23Team MemberRelationshipSpecialtyStart DateEnd Date Antonia Bush [address] [place] [address] HqukgyiuyLewbxws20/9/23Team MemberRelationshipSpecialtyStart DateEnd Date Antonia Bush [address] [place] [address] ZzoggbjokSnehqhj02/9/23 Team Status: Active Member Role Status Dates Fahad Aceves DO Primary Care Provider Active Start: June 19, 2023 Yamilex Foster APRNAtdoris ProviderActiveStart: June 19, 2023 Team Status: Inactive Member Role Status Dates Fahad Aceves DO Primary Care Provider Active Start: June 21, 2023 End: June 21, 2023Yamilex Foster APRNAtdoris ProviderActiveStart: June 21, 2023 End: June 21, 2023 Team Status: Inactive Member Role Status Dates Fahad Aceves DO Primary Care Provide r, Attending Provider Active Start: July 11, 2023 End: July 11, 2023Team MemberRelationshipSpecialtyStart DateEnd Date Fahad Aceves DO [address] [place] [address] PCP - GeneralInternal Medicine07/18/23 Antonia Bush [address] [address] BuaxmznjiWhorcte12/9/23Team MemberRelationshipSpecialtyStart DateEnd Date Fahad Aceves DO [address] [place] [address] PCP - GeneralInternal Medicine07/18/23 Antonia Bush MD [address] [address] DmfbqqqeoFdguvbw65/9/23Team MemberRelationshipSpecialtyStart DateEnd Date Fahad Aceves DO [address] [place] [address] PCP - GeneralInternal Medicine07/18/23 Antonia Bush MD [address] [place] [address] PakjucnlsTbhvoyk26/9/23Team MemberRelationshipSpecialtyStart DateEnd Date Fahad Aceves DO [address] [place] [address] PCP - GeneralSierra Tucsonnal Medicine07/18/23 Antonia Bush MD [address] [place] [address] DcllrmecgSqtljho81/9/23Team MemberRelationshipSpecialtyStart DateEnd Date Fahad Aceves DO [address] [place] [address] PCP - [facility]07/18/23 Antonia Bush MD [address] [address] JrhyyducyCjmbogj42/9/23Team MemberRelationshipSpecialtyStart DateEnd Date Fahad Aceves DO [address] [place] [address] PCP - [facility]07/18/23 Antonia Bush MD [address] [address] VhlhbsbgmEryuvxq42/9/23 Team Status: Inactive Member Role Status Dates Fahad Aceves DO Primary Care Provider Active Start: May 15, 2024 End: May 15, 2024Thaddeus Orellana ProviderActiveStart: May 15, 2024 End: May 15, 2024 Team Status: Active Member Role/Relationship Status Dates Fahad Aceves DO Primary Care Provider Active Team Status: Inactive Member Role/Relationship Status Dates Fahad DO Yola Primary Care Provider Active Start: November 27, 2024 End: November 27, 2024Thaddeus Orellana ProviderActiveStart: November 27, 2024 End: November 27, 2024 Team Status: Inactive Member Role/Relationship Status Dates Fahad Aceves DO Primary Care Provider Active Start: February 04, 2025 End: February 04magdajorge Aceves DOAttending ProviderActiveStart: February 04, 2025 End: February 04, 2025 Team Status: Inactive Member Role/Relationship Status Dates Fahad Yola Primary Care Provider Active Start: February 10, 2025 End: February 10, 2025Rashel Delano Marlene , Attending ProviderActiveStart: February 10, 2025 End: February 10, 2025 Goals (unrecognized section and content) Goals may be documented in a n alternate section (unrecognized sect ion and content) No Status Records FoundNo Status Records FoundNo Status Records FoundNo Status Records FoundNo Status Records Found INFORMATION SOURCE (unrecogn ized section and content) DATE CREATED AUTHOR 08/31/2022 [facility] DATE CREATED AUTHOR AUTHOR'S ORGANIZ ATION 06/01/2023 [facility] DATE CREATED AUTHOR AUTHOR'S ORGANIZ ATION 09/19/2023 [facility] DATE CREATED AUTHOR AUTHOR'S ORGANIZ ATION 01/16/2024 [facility] DATE CREATED AUTHOR AUTHOR'S ORGANIZ ATION 07/13/2024 [facility] Source Comments (unrecognize d section and content) In the event this informatio n is protected by the Federal Confidentiality of Alcohol and Drug Abuse Patient Records regulations: The Federal rules restrict any use of the information to criminally investigate or prosecute any alcohol or drug abuse patient.[facility] CenterIn the event this information is protected by the Federal Confidentiality of Alcohol and Drug Abuse Patient Records regulations: The Federal rules restrict any use of the information to criminally investigate or prosecute any alcohol or drug abuse patient.[facility] CenterIn the event this information is protected by the Federal Confidentiality of Alcohol and Drug Abuse Patient Records regulations: The Federal rules restrict any use of the information to criminally investigate or prosecute any alcohol or drug abuse patient.[facility] CenterIn the event this information is protected by the Federal Confidentiality of Alcohol and Drug Abuse Patient Records regulations: The Federal rules restrict any use of the information to criminally investigate or prosecute any alcohol or drug abuse patient.[facility] CenterIn the event this information is protected by the Federal Confidentiality of Alcohol and Drug Abuse Patient Records regulations: The Federal rules restrict any use of the information to criminally investigate or prosecute any alcohol or drug abuse patient.[facility] CenterIn the event this information is protected by the Federal Confidentiality of Alcohol and Drug Abuse Patient Records regulations: The Federal rules restrict any use of the information to criminally investigate or prosecute any alcohol or drug abuse patient.[facility] CenterIn the event this information is protected by the Federal Confidentiality of Alcohol and Drug Abuse Patient Records regulations: The Federal rules restrict any use of the information to criminally investigate or prosecute any alcohol or drug abuse patient.[facility] CenterIn the event this information is protected by the Federal Confidentiality of Alcohol and Drug Abuse Patient Records regulations: The Federal rules restrict any use of the information to criminally investigate or prosecute any alcohol or drug abuse patient.[facility] CenterIn the event this information is protected by the Federal Confidentiality of Alcohol and Drug Abuse Patient Records regulations: The Federal rules restrict any use of the information to criminally investigate or prosecute any alcohol or drug abuse patient.[facility] CenterIn the event this information is protected by the Federal Confidentiality of Alcohol and Drug Abuse Patient Records regulations: The Federal rules restrict any use of the information to criminally investigate or prosecute any alcohol or drug abuse patient.[facility] CenterIn the event this information is protected by the Federal Confidentiality of Alcohol and Drug Abuse Patient Records regulations: The Federal rules restrict any use of the information to criminally investigate or prosecute any alcohol or drug abuse patient.[facility] FOR RECORDS PERTAINING TO PATIENTS [...] BE BASED ON THE PRIMARY CLINICAL RECORDS. [facility]. provides no warranty or guarantee of the accuracy or completeness of information in this document.
--- NOTE | 2025-03-04 10:12 | XR_ITS ---
The [address] [address] Patient Name: CADEN WILLS MRN: [id number] date: 1960 Sex: M Assigned Patient Location: [place] Current Patient Location: [place] Accession/Order Number: [id number] Exam Date: 03/04/2025 10:05 Report Date: 03/04/2025 10:34 At the request of: SHAYAN OSBORN DO Procedure: XR chest 2V PA AND LATERAL CHEST: CLINICAL HISTORY: Preoperative clearance COMPARISON: 12/31/2021 Median sternotomy wires are present. There is no focal parenchymal consolidation, effusion or pneumothorax. The cardiac, hilar and mediastinal silhouettes are within normal limits. There is no vascular congestion. The visualized bony thorax is intact. Endplate spurring and slight dextroscoliotic curvature are present at the spine. XR/XR chest 2V IMPRESSION: NO ACUTE CARDIOPULMONARY ABNORMALITY. Impression dictated by: Shannon Parra M.D. 03/04/2025 10:34 AM Dictation Location: [place] [address] Electronically authenticated by: [id number] Date: 03/04/2025 10:34
[2025-03-04 10:15] LABS: Hematocrit 49.7 % (42.0-54.0); Hemoglobin 16.6 g/dL (14.0-18.0); Immature Granulocytes Abs Auto 0.06 10^3/uL (0.00-0.03); Immature Granulocytes Pct Auto 0.7 % (0.0-0.5); Lymphocytes Absolute Auto 1.6 10^3/uL (1.2-3.8); Mean Corpuscular HGB Conc 33.4 g/dL (29.9-35.2); Mean Corpuscular Hemoglobin 28.4 pg (25.9-34.0); Mean Corpuscular Volume 85.1 fL (80.0-94.0); Platelet Count 249 10^3/uL (150-450); Red Blood Count 5.84 10^6/uL (4.70-6.10); White Blood Count 8.2 10^3/uL (4.0-11.0)
[2025-03-04 10:33] LABS: Alanine Aminotransferase 36 U/L (16-63); Albumin Globulin Ratio 0.9; Albumin Level 3.5 g/dL (3.4-5.0); Alkaline Phosphatase 99 U/L (46-116); Anion Gap 14.9; Aspartate Amino Transferase 23 U/L (15-37); Blood Urea Nitrogen 18.0 mg/dL (7.0-18.0); Calcium 8.9 mg/dL (8.5-10.1); Carbon Dioxide 26.4 mmol/L (21.0-32.0); Chloride 103 mmol/L (98-107); Estimated GFR (African America >60 (>=60 mL/min/1.73m^2); Estimated GFR (Non-African Ame >60 (>=60 mL/min/1.73m^2); Globulin 3.8 g/dL; Glucose 195 mg/dL (74-106); Potassium 4.3 mmol/L (3.5-5.1); Sodium 140 mmol/L (136-145); Total Protein 7.3 g/dL (6.4-8.2)
[2025-03-04 11:34] LABS: INR 1.03; Partial Thromboplastin Time 28.0 sec (22.3-36.2); Prothrombin Time 10.9 sec (9.0-11.6)
== END 2025-03-04 09:00 | disposition home or self-care (01) ==
LOC: PST 09:00
PROVIDERS: PCP Internal Medicine; Visit Provider Orthopaedic Surgery Orthopaedic Trauma
DX: Z01.810 Encounter for preprocedural cardiovascular examination (principal); Z01.812 Encounter for preprocedural laboratory examination; M25.552 Pain in left hip; M87.9 Osteonecrosis, unspecified
CPT/HCPCS: 36415; 71046; 80053; 85025; 85610; 85730; 93005

== ENCOUNTER 2025-03-20 09:54 | Outpatient (OUT) | payer OTHER, SELFPAY ==
--- OUTSIDE RECORDS SUMMARY | 2025-03-10 04:42 | XMS_ITS | Continuity of Care Document ---
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 Name Role Phone Brad Fahad ROMERO Primary Care Provider Fahad Aceves DO Attending Provider Rashel Rosario DO Attending Provider Rhona Gottlieb APRN Attending Provider [phone] Care Teams Patient Care Team Team Status: Active Member Role/Relationship Status Dates Fahad Aceves DO Primary Care Provider Active Visit Care Team Team Status: Inactive Member Role/Relationship Status Dates Fahad Aceves DO Primary Care Provider Active Start: February 04, 2025 End: February 04enJennifer Rojas ProviderActiveStart: February 04, 2025 End: February 04, 2025 Visit Care Team Team Status: Inactive Member Role/Relationship Status Dates Fahad Aceves DO Primary Care Provider Active Start: February 10, 2025 End: February 10, 2025Jennifer Marie ProviderActiveStart: February 10, 2025 End: February 10, 2025 Visit Care Team Team Status: Active Member Role/Relationship Status Dates Fahad Aceves DO Primary Care Provider Active Start: March 04, 2025 Jennifer Marie ProviderActiveStart: March 04, 2025 Visit Care Team Team Status: Inactive Member Role/Relationship Status Dates Fahad Aceves DO Primary Care Provider Active Start: March 05, 2025 End: March 05, 2025Thaddeus Orellana ProviderActiveStart: March 05, 2025 End: March 05, 2025 Visit Care Team Team Status: Inactive Member Role/Relationship Status Dates Fahad Aceves DO Primary Care Provider Active Start: March 07, 2025 End: March 07, 2025Jucatie Rosario DOAttending ProviderActiveStart: March 07, 2025 End: March 07, 2025 Visit Care Team Team Status: Active Member Role/Relationship Status Dates Fahad Aceves DO Primary Care Provider Active Start: March 07, 2025 Rashelyevgeniy Rosario DOAttending ProviderActiveStart: March 07, 2025 Visit Care Team Team Status: Inactive Member Role/Relationship Status Dates Fahad Aceves DO Primary Care Provider Active Start: March 07, 2025 End: March 07, 2025Justyevgeniy Rosario DOAttending ProviderActiveStart: March 07, 2025 End: March 07, 2025 Patient Care Team Team Status: Inactive Member Role/Relationship Status Dates Fahad Aceves DO Primary Care Provider Active Start: March 10, 2025 End: March 10enjorge Aceves DOAttending ProviderActiveStart: March 10, 2025 End: March 10, 2025 Chief Complaint and Reason for Visit Chief Complaint Admit Date back pain/possible broken pelvis February 04, 2025 9:04am [facility] CONSULT DR ACEVES LT HIP AVASCULAR NEC ROSIS WX February 10, 2025 8:56am 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 Farrell) March 10, 2025 8:48am Reason for Visit Admit Date Accidental fall February 04, 2025 9 :04am Low back pain February 04, 2025 9 :04am Pain in joint involving left pelvic stephan on and thigh February 04, 2025 9:04am Avascular necrosis of bone of left hip O ctober 2024 8:56am Dietary counseling and surveillance Santhosh hwang 2024 4:27pm Mixed hyperlipidemia March 05, 2025 4:27pm Obesity, Class II, BMI 35-39.9 March 05, 2025 4:27pm Vitamin B 12 deficiency March 05, 2 025 4:27pm HTN (hypertension) March 05, 2025 4:27pm Type 2 diabetes mellitus March 05, 2025 4:27pm Avascular necrosis of bone of left hip N ovember 2024 8:51am Allergies, Adverse Reactions, Alerts Allergen Type Severity Reaction Last Updated Verified Status empagliflozin Allergy Unknown uti March 10, 2025 8:59am Yes Active icosapent ethyl Allergy Unknown n/v March 10, 2025 8:59 am Yes Active No Known Allergies Allergy Unknown March 10, 2025 8:59amYesActive Social History Smoking Status Status Start Date [...] improved ejection fraction (HFimpEF) July 15, 2024 5:17pm Unknown Active Echo: LVEF 50%, WARREN, normal RV size/function - 06/2024 Screening PSA (prostate specific antigen) February 05, 2025 6:28am Unknown Active PSA: 0.52 - 01/2025 Type 2 diabetes mellitus with hyperglycemia July 09, 2023 5:43pm Unknown Active Type 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 with diabetic polyneuropathyMarch 2023 5:43pm UnknownActiveLow back painOctober 2024 8:28amUnknownActiveCrush injury of footJanuary 2024 8:38pmUnknownActiveVitamin B 12 deficiencyMarch 2023 2:47pmUnknownActiveDietary counseling and surveillanceMarch 2023 2:44pm UnknownActiveAvascular necrosis of bone of left hipOctober 2024 5:36pm UnknownActivePain in joint involving left pelvic region and thighOctober 2024 8:28amUnknownActiveLeft leg painJanuary 2024 5:19pmUnknownActiveMixed hyperlipidemiaFebruary 2023 9:05amUnknownActiveIschemic cardiomyopathy June 12, 2023 9:05amUnknownActivePCI/stent LAD - 2007, CABG x - 12/2021, Echo: LVEF 50%, normal RV size/function - 06/2024,Chronic HFrEF (heart failure with reduced ejection fraction)June 12, 2023 9:05amUnknownActiveEcho: LVEF 50%, WARREN, normal RV size/function - 06/2024Obesity, Class II, BMI 35-39.9November 2024 4:42pmUnknownActiveBMI 38.0-38.9,adultOctober 2023 4:17pm UnknownActiveParoxysmal atrial fibrillationFebruary 2023 9:05amUnknown ActiveAccidental fallOctober 2024 8:30amUnknownActiveHypertensionMarch 2023 5:43pmUnknownActiveCarotid US: < 50% B/L - besityJanuary 2024 5:17pmUnknownActiveOsteoarthritis of foot, leftJanuary 2024 8:39pm UnknownActiveInactive/Resolved Problems Problem Diagnosis/Recorded Date Onset Date Status C omments Phimosis of penis July 11, 2023 2:58pm Unknown Resol marya Contusion of finger with damage to nailFebruary 2023 9:09amUnknownResolved BMI 37.0-37.9, adultAugust 2024 4:13pmUnknownResolvedBMI 39.0-39.9,adult June 21, 2023 4:32pmUnknownResolved Medications Medication Status Dose Units Route Directions Qty Days Refills S tart Date Stop Date End Date Reason(s) Instructions Adherence Pantoprazole 40 mg tablet,delayed release (DR/EC) Disc ontinued 0 .ROUTE.EHVYDZB712Mgr 10th, 2024 12:04pmMay 2024 6:45amTAKE 1 TABLET BY MOUTH ONCE A DAY ON EMPTY STOMACH FOLLOWED IN 30 MINUTES WITH BREAKFAST 90Flash Glucose Sensor (Freestyle Addie 2 Sensor) kitDiscontinued0.ROUTE.HNATTNK11Ykid 2023 6:58amJuly 2024 7:33amCHANGE EVERY 14 DAYSAtorvastatin 80 mg tabletDiscontinued0.ROUTE.JPAYWXI869Afamvrpiv 2nd, 2024 7:42amAugust 2024 6:40amTAKE 1 TABLET BY MOUTH EVERY DAY IN THE EVENINGMetformin 500 mg tablet extended release 24 lmCrwrffbyafey558XCZCHfjyz times dlttn0192Zgufmwuxs 3rd, 2024 6:07amNovember 2024 5:08pmType 2 diabetes mellitus with hyperglycemia Type 2 diabetes mellitus with hyperglycemia USP (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Insulin Glargine U-300 Conc 300 unit/mL (1.5 mL) insulin wkcUssckiggyfaz90FXBTIFRZCRMbunb at djfqcqm294Axopswmj 2023 12:35pmAugust 2024 3:43pmType 2 diabetes mellitus with hyperglycemia Type 2 diabetes mellitus with hyperglycemia USP (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 DMAmiodarone 200 mg tabletActive0.ROUTE.AKKDKTW771Jiniihrz 2024 7:37amTAKE 1 TABLET BY MOUTH EVERY DAYComplies with drug therapyGabapentin 100 mg capsule Discontinued0.ROUTE.YMRZVQS498Iwojq 2024 7:44amMarch 2024 11:19amTAKE 1 CAPSULE BY MOUTH AT BEDTIMEGabapentin 100 mg ifnzpqsEgjwaf954RIKRGcvwc11351 July 10, 2024 11:18amComplies with drug therapyPantoprazole 40 mg tablet,delayed release (DR/EC)Active0.ROUTE.GHOPDLT757Iul 2024 6:45amTAKE 1 TABLET BY MOUTH ONCE A DAY ON EMPTY STOMACH FOLLOWED IN 30 MINUTES WITH BREAKFAST 90Complies with drug therapyBlood-Glucose Sensor (Freestyle Addie 2 Plus Sensor) deviceActive0.Uqhyw16Gwbg 2024 11:00pmType 2 diabetes mellitus with hyperglycemia Type 2 diabetes mellitus with hyperglycemia USP (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Use to monitor BG, Change every 15 days Atorvastatin 80 mg tabletActive0.ROUTE.CLLQPXH276Fcxmes 2024 6:40amTAKE 1 TABLET BY MOUTH EVERY DAY IN THE EVENINGComplies with drug therapyMetformin (Glucophage) 500 mg MhgmsmHshocvrgqbmd2337BHFO8838Boloa 2018 11:00pmT[facility] 2023 4:21pmDMAtenolol 25 mg boazejLdzabrzbgrfs24JTII0783Lnwic 2018 11:00pmT[facility] 2023 4:28pmHTNClopidogrel 75 mg kzgptdXytpbrrivasw03BYXX3723 June 25, 2018 11:00pmT[facility] 2023 4:28pmLisinopril 10 mg tablet Ooyaqcouvziu79RMVX8578Vaemf 2018 11:00pmT[facility] 2023 4:29pmHTN Hydrochlorothiazide 25 mg fhslvcFqczufoqtpjf00RJFU6610Tudwd 2018 11:00pm June 21, 2023 4:29pmhtnInsulin Aspart U-100 100 unit/mL insulin pen DiscontinuedTuscarawas Hospital 2018 11:00pm[facility] 2023 4:18pmFenofibrate Nanocrystallized 145 mg qhkqmhHhpsufsvgbuv682USYT7804Qkkkk 2018 11:00pm June 21, 2023 4:29pmhigh cholesterolCanagliflozin 300 mg cfenyrSayuqvwyevvy080 QIQD4865Aycmd 2018 11:pmT[facility] 2023 4:28pmDMInsulin Glargine U-300 Conc 300 unit/mL (1.5 mL) insulin dvrWqyeaklkucpb44SGAOLTXFCRZkazv at bedtime June 25, 2018 11:00pmT[facility] 2023 4:27pmDMMetformin (Glucophage) 500 mg XvrvdmKtrzdtdfuqcz621AHDY3819Cwxep 2018 11:00pmT[facility] Hospital 2023 4:29pmDM Aspirin (Lucio Low Dose Aspirin) 81 mg Tablet,Delayed Release (Dr/Ec)Fylvik98NF PODailyMuab hospital 2018 11:00pmComplies with drug therapyMagnesium, Zinc, Vitamin MMxzxvdfppeeg5VITTIBnfrq at bedtimeTuscarawas Hospital 2018 11:00pm[facility] 2023 4:29pmMultivitamin NnlesyLhnree2EXJANPkrkcGrwkw 2018 11:00pmComplies with drug therapyCinnamon Bark (Cinnamon) 500 mg XatztssDphefm913YEQPPpllt daily June 25, 2018 11:00pmDMComplies with drug therapyNiacin 500 mg TabletActive 500MGPODaily at bedtimeTuscarawas Hospital 2018 11:00pmComplies with drug therapyInsulin Glargine U-300 Conc 300 unit/mL (1.5 mL) insulin wnwOtkxiqgbpydg93ASBMBWSMXD Daily at bedtimeMar 2023 4:18pmJuly 2023 4:07pmDMInsulin Glargine U-300 Conc 300 unit/mL (1.5 mL) insulin ryjRzabifsbuxpe95CVLKENVPWBRbxov at bedtimeJuly 2023 4:07pmOctober 2023 3:43pmDMInsulin Glargine U-300 Conc 300 unit/mL (1.5 mL) insulin yshKmhxitsuqbch81CQGMBRUOOQXffck at bedtime February 07, 2024 3:39pmOctober 2023 4:15pmDMGabapentin 100 mg capsule Pqxpdotncptl178JXQDFkivt at vbibefj70034Elnsbll 2024 12:00amJanuary 2024 4:24pmGabapentin 100 mg heutltuOwkmrsrgdcoq011JHZPLpfrx at wawhwab39215 April 23, 2024 4:24pmMar 2024 7:44amAmiodarone 200 mg tablet Efobjdixnpeq494UXYMAbzomObqzeur 2023 11:00pmFebruary 2024 7:37am Insulin Glargine U-300 Conc 300 unit/mL (1.5 mL) insulin uwcPocfzbymtaoo21RMZI SUBCUTDaily at wgqvgzg343Wexibbh 2023 4:11pmDeceer 2023 12:35pmType 2 diabetes mellitus with hyperglycemia Type 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 mellitus with hyperglycemia 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 DMInsulin Lispro-Aabc 200 unit/mL (3 mL) insulin gbbEvivwfozklpi4BCCZBK.COMPLEX 543October 2023 4:12pmAugust 2024 3:43pmType 2 diabetes mellitus with hyperglycemia Type 2 diabetes mellitus with hyperglycemia USP (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USE 36 UNITS BEFORE BREAKFAST/lunch, 38 BEFORE SUPPER PLUS ISS 1:10 BEFORE MEALS (AT BEDTIME IF >200 HALF DOSE) *UP TO 120 UNITS PER DAY* SubcutaneousDapagliflozin Propanediol (Farxiga) 10 mg tablet Hntykdhxxmkt83SXDGYbnxt546Yuidiso 2023 4:15pmAugust 2024 3:43pmType 2 diabetes mellitus with hyperglycemia Type 2 diabetes mellitus with hyperglycemia USP (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Insulin Glargine U-300 Conc (Toujeo Max U-300 Solostar) 300 unit/mL (3 mL) insulin srfWeedfu4DXNVZIFo Nrimpnsi683Sjqufysk 19th, 2025 12:00am68 units subcutaneously as directed;Complies with drug therapy Insulin Lispro-Aabc 200 unit/mL (3 mL) insulin gxkXyfkyj8OXBDIP.RPCKQDA354 March 05, 2025 5:07pmType 2 diabetes mellitus with hyperglycemia Type 2 diabetes mellitus with hyperglycemia USP (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USE 36 UNITS BEFORE BREAKFAST/lunch, 38 BEFORE SUPPER PLUS ISS 1:10 BEFORE MEALS (AT BEDTIME IF >200 HALF DOSE) *UP TO 120 UNITS PER DAY* SubcutaneousComplies with drug therapyMetformin 500 mg tablet extended release 24 wwFzbetd473VBGKOnify times fmtuz7598JgeiiecvMarch 05, 2025 5:07pmType 2 diabetes mellitus with hyperglycemia Type 2 diabetes mellitus with hyperglycemia 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Complies with drug therapyPen Needle, Diabetic 32 gauge x 5/32 hncqrxReakwv8MLHNONFESR.DJCCYZWUL2197Fvakawxg 19th, 2025 12:00amqidAcetaminophen 500 mg fjwziaXfoxmm9342NQESY7G003211Hifagxax 21st, 2025 12:00amComplies with drug therapyDocusate Sodium (Colace) 100 mg capsuleActive 100MGPOTwice cveom87130HzmtasoqMarch 07, 2025 12:00amComplies with drug therapy Aspirin 81 mg tablet,vnpaohevDgvszl02EFZZSqbla dunym38780WlrqmgvuMarch 07, 2025 12:00amComplies with drug therapyOxycodone 5 mg hkuwhcUbwxsi7KETJQ1N as needed for Muaz2039Mjaanjpy 21stvascular necrosis of bone of left hip Idiopathic aseptic necrosis of left femurdispense 42 (forty-two) tablets diagnosis M87.052 DO NOT FILL UNTIL 5Complies with drug therapyCyclobenzaprine 10 mg tabletActive5 - 63ZZYYX6H98249Ysgnvgob 2024 12:00amComplies with drug therapyTramadol 50 mg tjjuxxWytqty23EJXRJ1P as needed for Gjaj7594Qhxaapuh 2024 12:00amAvascular necrosis of bone of left hip Idiopathic aseptic necrosis of left femurdispense 42 (forty-two) tablets diagnosis M87.052 DO NOT FILL UNTIL 5Complies with drug therapyDoxycycline Hyclate 100 mg xustxiNokgsv023LYDPRifvn vbrkp9063PscrsvypMarch 07, 2025 12:00amComplies with drug therapyInsulin Lispro-Aabc 200 unit/mL (3 mL) insulin szdRlbacpnujxwn8BACHFT .COMPLEXTuscarawas Hospital 2023 12:00amOctober 2023 3:43pmUSE 32 UNITS BEFORE BREAKFAST, 38 BEFORE SUPPER PLUS ISS 1:10 BEFORE MEALS (AT BEDTIME IF >200 HALF DOSE) *UP TO 100 UNITS PER DAY* Subcutaneous (expect up to 100 units/day) Sacubitril-Valsartan (Entresto) 24-26 mg hosjjlUncwgi7SVIFEGcnls dailyTuscarawas Hospital 2023 12:00amComplies with drug therapyDapagliflozin Propanediol (Farxiga) 10 mg hccjbhIcynwebyeazc45XEIVDwlzkYkfrx 2023 12:00amOctober 2023 4:15pm Metformin 500 mg tablet extended release 24 vvXesgtzjnoydb928XZYWQvibn times dailyTuscarawas Hospital 2023 12:00amSepthavasu regional medical center 2023 6:09amPantoprazole 40 mg tablet,delayed release (DR/EC)Pdepdzsiytzo19PWEBVbhujNwvcd 2023 12:00amMay 2023 12:04pmMagnesium Oxide 400 mg (241.3 mg magnesium) yycwbbQowbsy139SL PODailyMuab hospital 2023 12:00amComplies with drug therapySpironolactone 25 mg sfxhivGriokx37OIBSVuwmuYteki 2023 12:00amComplies with drug therapy Metoprolol Succinate 100 mg tablet extended release 24 wcLleuxf904XKAUFxcpm dailyTuscarawas Hospital 2023 12:00amComplies with drug therapyTizanidine 4 mg tablet Sfkkkj1GU.COMPLEXMarch 2023 12:00amTAKE 1/2 TO 2 TABLETS BY MOUTH EVERY DAY AT BEDTIME;Complies with drug therapyAtorvastatin 80 mg hfevxfCmaukondffmz14GXUN DailyMarch 2023 12:00amSeptember 2023 7:42amflash glucose sensor (FreeStyle Addie 2 Sensor)Discontinued.RouteMarch 2023 12:00amJuly 2023 6:58ampen needle, diabetic (BD Ultra-Fine Georgina Pen Needle)Active.RouteMarch 2023 12:00amomega-3 fatty acids (Fish Oil)Nxrkxzhpbiui3LOFIGZfvozFlgnw 6th, 2024 12:00amOctober 2023 3:40pmEzetimibe 10 mg uinbavRleckh74GBKGInwxg June 21, 2023 12:00amComplies with drug therapyBumetanide 1 mg uomznoCfdjyc6SK PODailyMarch 2023 12:00amComplies with drug therapySildenafil 100 mg tablet Oktxkt861CPDIbq neededMarch 2023 12:00amComplies with drug therapy Famotidine 40 mg hoxnyhRrtlxa58QJRFEaqva at bedtimeMar 2023 12:00am Complies with drug therapyInsulin Lispro-Aabc 200 unit/mL (3 mL) insulin pen Jgteqaqhjllu1ATYQNG.COMPLEXOctober 2023 3:40pmOctober 2023 4:15pmUSE 36 UNITS BEFORE BREAKFAST, 38 BEFORE SUPPER PLUS ISS 1:10 BEFORE MEALS (AT BEDTIME IF >200 HALF DOSE) *UP TO 100 UNITS PER DAY* Subcutaneous (expect up to 100 units/day)Clopidogrel 75 mg zwskjfIcuvhi74EXRKZhrteYgjqklb 2024 12:00amComplies with drug therapyInsulin Glargine U-300 Conc 300 unit/mL (1.5 mL) insulin wevXecpgyapxdia46VYVJFNMTOOCttvj at qtvputc881Cwjxth 2024 3:41pmNovember 2024 5:06pmType 2 diabetes mellitus with hyperglycemia Type 2 diabetes mellitus with hyperglycemia USP (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 DMInsulin Lispro-Aabc 200 unit/mL (3 mL) insulin tlfYbsebkgpqugm3LLJATX.COMPLEX 540August 2024 3:42pmNovember 2024 5:08pmType 2 diabetes mellitus with hyperglycemia Type 2 diabetes mellitus with hyperglycemia 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USE 36 UNITS BEFORE BREAKFAST/lunch, 38 BEFORE SUPPER PLUS ISS 1:10 BEFORE MEALS (AT BEDTIME IF >200 HALF DOSE) *UP TO 120 UNITS PER DAY* SubcutaneousDapagliflozin Propanediol (Farxiga) 10 mg tablet Sdbqxf52WDZGGgzul940Bmxnsk 2024 3:43pmType 2 diabetes mellitus with hyperglycemia Type 2 diabetes mellitus with hyperglycemia 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Complies with drug therapy Immunizations Immunization Event Date Not Given Reason Dose Number Grant Manager Lot Number Reason(s) Given Vaccine Information Statement (VIS) Detail Administration Location COVID-19 mRNA, Comirnaty ([employer]) July 13 COVID-19 mRNA, Comirnaty ([employer])August 03OVID-19 mRNA, Comirnaty ([employer])March 23OVID-19 mRNA Bivalent Booster ([employer])February 24, 2022 Procedures Procedure Date Performed Status XR pelvis 1-2V March 07, 2025 8:11am compl eted XR lumbar spine 2-3V* February 04, 2025 8:26am completed Relevant Diagnostic Tests and/or Laboratory Data Laboratory Results Test Collection Date/Time Result Date/Time Result Interpretation Reference Range Result Comment Performing Site Basophils # (Auto) February 04, 2025 3:04pm January 162024 3:04pm 0.1 10 3/uL 0.0-0.1Cholesterol/HDL RatioFebruary 04, 2025 3:04pmOct2024 3:04pm 4.23.3 - 4.4 LOW RISK4.4 - 7.1 AVERAGE RISK7.1 - 11.0 MODERATE RISK>11.0 HIGH RISKAnion GapOct2024 3:04pmOct2024 3:04pm13.1Prostate Specific Antigen ScreenFebruary 04, 2025 3:04pmOct2024 3:04pm0.52 ng/mL<=4.00Activated Partial Thromboplast TimeNov2024 9:50amNovember 2024 9:50am28.0 sec22.3-36.2Prothromb Time International RatioNove2024 9:50amNovember 2024 9:50am1.03DESIRED INR:2.0-3.0 CONDITIONS NOT LISTED BELOW2.5-3.5 FOR PROSTHETIC HEART VALVE REPLACEMENT2.5-3.5 RECURRENT THROMBOSISAnion GapNov2024 9:50amNovember 2024 9:50am14.9 Basophils # (Auto)March 04, 2025 9:50amNovember 2024 9:50am0.1 10 3/uL0.0-0.1Bedside Hemoglobin Y6hBxcpzdux2024 4:45pmNov2024 4:45pm7.2 %Bedside GlucoseNov2024 4:45pmNovhavasu regional medical center 2024 4:45pm 160Basophils (%) (Auto)February 04, 2025 3:04pmOctober 2024 3:04pm0.6 % 0.2-2.0Cholesterol LevelOct2024 3:04pmOctober 2024 3:52ym132 mg/dL<=200Albumin/Globulin RatioOct2024 3:04pmOctober 2024 3:04pm0.9Prothrombin TimeFormerly [facility]2024 9:50amNovember 2024 9:50am 10.9 sec9.0-11.6Albumin/Globulin RatioNove2024 9:50amNovember 2024 9:50am0.9Basophils (%) (Auto)March 04, 2025 9:50amNovember 2024 9:50am0.6 %0.2-2.0Eosinophils # (Auto)February 04, 2025 3:04pmOctober 2024 3:04pm0.3 10 3/uL0.0-0.7HDL CholesterolOct2024 3:04pmOctober 2024 3:04pm37 mg/dLBelow low fanidw19-12> or =60 mg/dl - LOW CARDIOVASCULAR RISK<40 mg/dl - HIGH CARDIOVASCULAR RISKAlbuminFebruary 04, 2025 3:04pmFebruary 04, 2025 3:04pm4.2 g/dL3.4-5.0AlbuminNovember 2024 9:50am March 04, 2025 9:50am3.5 g/dL3.4-5.0Eosinophils # (Auto)March 04, 2025 9:50amNovemb2024 9:50am0.2 10 3/uL0.0-0.7Eosinophils (%) (Auto)February 04, 2025 3:04pmFebruary 04, 2025 3:04pm2.7 %0.9-7.0LDL Cholesterol, CalculatedFebruary 04, 2025 3:04pmOct2024 3:04pm67.0 mg/dL<100 mg/dl QEEIPEL781-912 mg/dl NEAR OR ABOVE VZWVZJM958-796 mg/dl BORDERLINE QPRY601-439 mg/dl HIGH>190 mg/dl VERY HIGHAlkaline PhosphataseFebruary 04, 2025 3:04pm February 04, 2025 3:76hu410 U/LAbove high txwfob98-491Rfghwizg Phosphatase March 04, 2025 9:50amNovemb2024 9:50am99 U/D40-928Txpqelxcmwk (%) (Auto)March 04, 2025 9:50amNovember 2024 9:50am2.8 %0.9-7.0Hematocrit February 04, 2025 3:04pmFebruary 04, 2025 3:04pm51.6 %42.0-54.0Triglycerides LevelFebruary 04, 2025 3:04pmOct2024 3:54fg128 mg/dLAbove high normal<=150Alanine Aminotransferase (ALT/SGPT)February 04, 2025 3:04pmFebruary 04, 2025 3:04pm39 U/N68-72Gyikhtv Aminotransferase (ALT/SGPT)March 04, 2025 9:50amNovember 2024 9:50am36 U/E42-88LczzzwgionRiajbczu 18th, 2025 9:50amNovember 2024 9:50am49.7 %42.0-54.0HemoglobinOct2024 3:04pmOct2024 3:04pm17.0 g/dL14.0-18.0VLDL CholesterolOct2024 3:04pmOct2024 3:04pm50.2 mg/dLAspartate Amino Transf (AST/SGOT) February 04, 2025 3:04pmOct2024 3:04pm27 U/J74-78Itwyaflcb Amino Transf (AST/SGOT)March 04, 2025 9:50amNovember 2024 9:50am23 U/L15-37 HemoglobinNov2024 9:50amNovember 2024 9:50am16.6 g/dL14.0-18.0 Immature Granulocyte # (Auto)February 04, 2025 3:04pmOct2024 3:04pm 0.05 10 3/uLAbove high normal0.00-0.03BUN/Creatinine RatioOct2024 3:04pmOct2024 3:04pm21.7BUN/Creatinine RatioNove2024 9:50amNovember 2024 9:50am20.2Immature Granulocyte # (Auto)March 04, 2025 9:50amNovember 2024 9:50am0.06 10 3/uLAbove high normal0.00-0.03 Immature Granulocyte % (Auto)February 04, 2025 3:04pmOct2024 3:04pm 0.5 %0.0-0.5Blood Urea NitrogenOct2024 3:04pmOct2024 3:04pm15.0 mg/dL7.0-18.0Blood Urea NitrogenNov2024 9:50amNovember 2024 9:50am18.0 mg/dL7.0-18.0Immature Granulocyte % (Auto)March 04, 2025 9:50amNovember 2024 9:50am0.7 %Above high normal0.0-0.5Lymphocytes # (Auto)February 04, 2025 3:04pmOctober 2024 3:04pm2.4 10 3/uL1.2-3.8 Calcium LevelOct2024 3:04pmOctober 2024 3:04pm9.4 mg/dL8.5-10.1 Calcium LevelNov2024 9:50amNovember 2024 9:50am8.9 mg/dL 8.5-10.1Lymphocytes # (Auto)March 04, 2025 9:50amNovember 2024 9:50am 1.6 10 3/uL1.2-3.8Lymphocytes (%) (Auto)February 04, 2025 3:04pmOctober 2024 3:04pm24.5 %20.5-60.0Chloride LevelOct2024 3:04pmOct2024 3:90be760 mmol/Y66-431Ebgukrxf LevelNovember 2024 9:50amNovember 2024 9:79ys212 mmol/P31-367Ysmpkwycuya (%) (Auto)March 04, 2025 9:50amNovember 2024 9:50am19.9 %Below low .5-60.0Mean Corpuscular HemoglobinOct2024 3:04pmOct2024 3:04pm28.0 pg25.9-34.0 Carbon Dioxide LevelOct2024 3:04pmOct2024 3:04pm27.9 mmol/L21.0-32.0Carbon Dioxide LevelNovember 2024 9:50amNovember 2024 9:50am26.4 mmol/L21.0-32.0Mean Corpuscular HemoglobinNovember 2024 9:50am March 04, 2025 9:50am28.4 pg25.9-34.0Mean Corpuscular Hemoglobin Concent February 04, 2025 3:04pmOct2024 3:04pm32.9 g/dL29.9-35.2Creatinine February 04, 2025 3:04pmOct2024 3:04pm0.69 mg/dLBelow low normal 0.70-1.30CreatinineMarch 04, 2025 9:50amNovember 2024 9:50am0.89 mg/dL0.70-1.30Mean Corpuscular Hemoglobin ConcentNov2024 9:50am March 04, 2025 9:50am33.4 g/dL29.9-35.2Mean Corpuscular VolumeFebruary 04, 2025 3:04pmOct2024 3:04pm85.0 fL80.0-94.0Estimated GFR ()February 04, 2025 3:04pmOct2024 3:04pm>60>=60 mL/min/1.73m 2Estimated GFR ()March 04, 2025 9:50amNove2024 9:50am>60>=60 mL/min/1.73m 2Mean Corpuscular VolumeMarch 04, 2025 9:50am March 04, 2025 9:50am85.1 fL80.0-94.0Monocytes # (Auto)February 04, 2025 3:04pmOct2024 3:04pm1.0 10 3/uLAbove high normal0.3-0.8Estimated GFR (Non- AmericanFebruary 04, 2025 3:04pmOct2024 3:04pm>60>=60 mL/min/1.73m 2Estimated GFR (Non- AmericanNov2024 9:50am March 04, 2025 9:50am>60>=60 mL/min/1.73m 2Monocytes # (Auto)March 04, 2025 9:50amNovember 2024 9:50am0.8 10 3/uL0.3-0.8Monocytes (%) (Auto) February 04, 2025 3:04pmOct2024 3:04pm10.0 %1.7-12.0GlobulinOct2024 3:04pmOctober 2024 3:04pm4.6 g/dLGlobulinNovember 2024 9:50amNovember 2024 9:50am3.8 g/dLMonocytes (%) (Auto)March 04, 2025 9:50amNovember 2024 9:50am10.2 %1.7-12.0Mean Platelet VolumeOct2024 3:04pmOctober 2024 3:04pm9.5 fL9.5-13.5Glucose LevelFebruary 04, 2025 3:04pmOctober 2024 3:69ru874 mg/dLAbove high uoqmhp68-486Afezlhs LevelNovember 2024 9:50amNovember 2024 9:98eq537 mg/dLAbove high kqamoe51-765Eysn Platelet VolumeNovember 2024 9:50amNovember 2024 9:50am9.7 fL9.5-13.5Neutrophils # (Auto)February 04, 2025 3:04pmOct2024 3:04pm6.1 10 3/uL1.4-6.5Potassium LevelFebruary 04, 2025 3:04pmOctober 2024 3:04pm4.0 mmol/L3.5-5.1Potassium LevelNovember 2024 9:50am March 04, 2025 9:50am4.3 mmol/L3.5-5.1Neutrophils # (Auto)March 04, 2025 9:50amNovember 2024 9:50am5.4 10 3/uL1.4-6.5Neutrophils (%) (Auto) February 04, 2025 3:04pmOctober 2024 3:04pm61.7 %43.0-75.0Sodium Level February 04, 2025 3:04pmOct2024 3:79qw387 mmol/S571-127Efpdbj Level March 04, 2025 9:50amNovember 2024 9:22tw721 mmol/N769-230Naxkadpjnxk (%) (Auto)March 04, 2025 9:50amNovember 2024 9:50am65.8 %43.0-75.0 Nucleated Red Blood Cells/100 WBCOctober 2024 3:04pmOctober 2024 3:87tt0Igohu BilirubinOctober 2024 3:04pmOct2024 3:04pm0.3 mg/dL0.2-1.0Total BilirubinNovember 2024 9:50amNovember 2024 9:50am 0.4 mg/dL0.2-1.0Platelet CountNovember 2024 9:50amNovember 2024 9:62pc477 10 3/oU765-144Xmjqaiqz CountOctober 2024 3:04pmOct2024 3:42kg578 10 3/tD569-960Qccvm ProteinOctober 2024 3:04pmOct2024 3:04pm8.8 g/dLAbove high normal6.4-8.2Total ProteinNovember 2024 9:50amNovember 2024 9:50am7.3 g/dL6.4-8.2Red Blood CountNovember 2024 9:50amNovember 2024 9:50am5.84 10 6/uL4.70-6.10Red Blood CountOctober 2024 3:04pmOct2024 3:04pm6.07 10 6/uL4.70-6.10Red Cell Distribution WidthNovember 2024 9:50amNovember 2024 9:50am16.1 % Above high coipyt22.0-15.0Red Cell Distribution WidthOctober 2024 3:04pm February 04, 2025 3:04pm16.2 %Above high ebzust80.0-15.0Corrected White Blood CountNovember 2024 9:50amNovember 2024 9:50am8.2 10 3/uL4.0-11.0 Corrected White Blood CountOctober 2024 3:04pmOctober 2024 3:04pm9.9 10 3/uL4.0-11.0 Diagnostic Imaging Reports Author Bentley Rain [facility] HospitalAuthoredNov2024 11:21amReport Dictated Date/TimeDictated ByStatusRadiology ReportNov2024 11:21am Bentley Rain Jr DOcompProtestant [facility] Rad[facility] [address] [place] [address] XRay Report Signed Patient: Dominik Ballard MR#: [id number] : 1960 Acct:[id number] Age/Sex: 65 / M ADM Date: 5 [place] [facility] [place]: Type: [facility] Attending Dr: Rashel Rosario DO Copies to: Rashel Rosario DO~ Ordering Provider: Rashel Rosario DO Date of Service: 03/07/25 XR/XR pelvis 1-2V: 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 Moderate degenerative changes involving the right hip. No acute bony process. XR/XR pelvis 1-2V IMPRESSION: SEVERE DEGENERATIVE CHANGES LEFT HIP. Impression dictated by: Bentley Rain Jr., D.O. 03/07/2025 11:21 AM Dictation Location: [place] [address] Transcribed By: [facility] 03/07/25 1121 Dictated By: Bentley Rain Jr, DO 03/07/25 1121 Signed By: <Electronically signed by Bentley Rain Jr, DO in OV> 03/07/25 1121 Vital Signs Vital Reading Result Reference Range Collection Date/Time Height 70 [in_i] February 04, 2025 8:46rwVdquyx965.03 kgOctober 2024 8:16amHeart Rate68 /edl82-235Lwxnqlz 2024 8:16amRespiratory rate12 /wyc41-58Kxkuhbi 2024 8:16amBP Cbidsgre240 mm[Hg]100-140October 2024 8:16amBP Dqwfxpulm22 mm[Hg]60-100Octt.[facility] 2024 8:16amBMI (Body Mass Index)37.6 kg/m8Hkcdvkf 2024 8:44hyTkdsoh25 [in_i]February 10, 2025 7:90myJlupfa885.28 kgOctt.j. [facility] community [facility] 2024 7:57amBMI (Body Mass Index)39.3 kg/y4Qjxohjb 2024 7:57amHeight 70 [in_i]March 05, 2025 4:31wkKrxepw781.90 kgNovhavasu regional medical center 2024 4:31pm Heart Rate67 /xjy21-314LpqsxwazMarch 05, 2025 4:31pmRespiratory rate18 /wwm90-64 March 05, 2025 4:31pmOxygen saturation by Pulse %95-100March 05, 2025 4:31pmBP Fjzrjyzb014 mm[Hg]100-140Nov2024 4:31pmBP Valqnhzvl86 mm[Hg]60-100November 2024 4:31pmBMI (Body Mass Index)38.2 kg/g9Qbalpftf 2024 4:01qcMmufpt27 [in_i]March 10, 2025 9:03amWeight 120.76 kgFormerly [facility]2024 9:03amHeart Rate69 /zoh05-514FuhyjopdMarch 10, 2025 9:03amRespiratory rate12 /wcq47-57Hikgnfgt 24th, 2025 9:03amBP Otrczhfc232 mm[Hg]100-140March 10, 2025 9:03amBP Atfxcxgkd44 mm[Hg]60-100Nov2024 9:03amBMI (Body Mass Index)38.2 kg/c2Kvjqptle2024 9:03am Advance Directives Advance Directive Response Recorded Date/ Time Advance Directives No September 28 12:24pm Insurance Providers Guarantor Dominik Ballard Address [address] [place] [id number] Info.Home Phone: Payer Group Member ID Coverage Type Subscriber Relationship to Subscriber Effective Date Expiration Date [facility] [employer] Supervisor Maintenance Id: [id number] Encounters Encounter Location(s) Arrival/Admit Date Discharge/Departure Date Discharge/Departure Disposition Provider(s) Departed Physician/ Provider Office Visit -[facility] February 04, 2025 9:04am February 04, 2025 9:36am Discharged to home care or self care (routine discharge) Fahad Aceves DO Departed Physician/ Provider Office Visit -[facility] [place] February 10, 2025 8:56am February 10, 2025 9:40am Discharged to home care or self care (routine discharge) Rashel Rosario DO Non-patient / Non-visit -[facility] 2024 9:50am Brook Marieed Physician/Provider Office Visit-[facility] 2024 4:27pmMarch 05, 2025 11:59pmDischarged to home care or self care (routine discharge)JOHN Orellana-CDeparted Clinical-[facility] March 07, 2025 8:11am[facility] 2024 8:12amDischarged to home care or self care (routine discharge)Donna Marie [facility]March [facility], 2025 8:16amJuGeovanny Barbosa Physician/Provider [facility] 8:51amNovember 2024 9:31amDischarged to home care or self care (routine discharge)Geovanny Marie Physician/Provider Office Visit-[facility] 2024 8:48am[facility] 2024 9:33amDischarged to home care or self care (routine discharge)Fahad Aceves DO Recent Diagnosis Onset Date Admit Date Accidental fall Unknown February 04 9:04am Low back pain Unknown February 04 9:04am Pain in joint involving left pelvic region and thigh Unknown February 04, 2025 9:04am Avascular necrosis of bone of left hip Unknown February 10, 2025 8:56am Dietary counseling and surveillance Unknown March 05, 2025 4:27pm Mixed hyperlipidemia Unknown March 052024 4:27pm Obesity, Class II, BMI 35-39.9 Unknown N ovember 2024 4:27pm Vitamin B 12 deficiency Unknown March 05, 2025 4:27pm HTN (hypertension) Unknown February 4:27pm Type 2 diabetes mellitus Unknown Novembe r 2024 4:27pm Avascular necrosis of bone of left hip Unknown March 07, 2025 8:51am Assessments Diagnosis Onset Date Resolution Status Admit Date Accidental fall acuteOctober 2024 9:04amLow back painacuteOctober 2024 9:04amPain in joint involving left pelvic region and thighacuteOctober 2024 9:04am Avascular necrosis of bone of left hipacuteOctober 2024 8:56amDietary counseling and surveillanceacuteMarch 05, 2025 4:27pmMixed hyperlipidemia acuteNovember 2024 4:27pmObesity, Class II, BMI 35-39.9acuteNovember 2024 4:27pmVitamin B 12 deficiencyacuteNovember 2024 4:27pmHTN (hypertension)deletedNov2024 4:27pmType 2 diabetes mellitusdeleted March 05, 2025 4:27pmAvascular necrosis of bone of left hipacuteNov2024 8:51am Plan of Treatment Author Rhona Gottlieb [facility] HospitalAuthoredNovember 2024 5:11pmType 2 diabetes mellitus ? Clinical Notes: 1. Controlled, a Type 2 diabetes with A1c of 7.2% 2. Blood glucose levels slightly higher. According to addie 2 cgm review 02/20- 03/05/25: AVG SG 165. >250-3%, >180-36%, 70-180-59%, <70-1%, <70-1%. CV 27.6%. GMI 7.3%. Reviewed download with pt, incidence of hypoglycemia overnight and from overestimation of insulin for carb load. Glucose above target postprandial lunch from missed meal dose when at work. Continue: Decrease Toujeo max 70 to 68 units qhs. Lyumjev u200 36 units ac [...] or diabetes medication issues. 6. Prescriptions: [facility]- metformin, pen needles, Toujeo max, Lyumjev u200 sent. 7. Prescriptions will not be filled unless you are compliant with follow up appointments or have a follow up appointment scheduled as ordered by your provider. Refills should be requested at the time of your visit. controlled, on arb; managed by pcp 2024 ADA Guidelines- target blood pressure < 130/80, if it can be safely attained. 02/08 ldl 67/trig 251- on statin; managed by cardiology 2024 ADA [...] vit b12 601 at target see above see above Author Fahad Aceves [facility] 2024 8:33amAccidental fall in bathroom, striking his left pelvis/hip on the toilet. Pain w/ walking and sitting. XR to r/o pelvic/hip/lumbar vertebrae fx Pain after fall w/ radiation into thigh. Pain w/ activity and relieved by rest. XR to r/o vertebral fx Pain after fall Unable to sit or stand w/o increasing pain XR to r/o fx Author Rashel Rosario [facility] HospitalAuthoredOctt.[facility] 2024 8:49amDouglas presents with advanced left hip DJD due to AVN. At this juncture we have discussed the findings and diagnosis as well as personally reviewed appropriate imaging and performed interpretation of related testing and examination with the patient in office today. Prior medical notes from Fahad Aceves , and history have been reviewed. Today we have discussed degenerative joint disease of the hip and its treatment. Imaging was explained and discussed with the patient. We discussed recommended conservative therapies including physical therapy, anti-inflammatory medications, and weight loss strategies. We also discussed other treatment options including cortisone injections. I have laid out the course of hip DJD including the end-stage treatment of total joint arthroplasty. The patient recognizes and understands our options and goals and we will move forward with our treatment. At this juncture we have discussed the findings and diagnosis. Surgical intervention is recommended. Surgical versus non-operative management have been discussed in detail and non- operative management was given as an option and exhausted. The risks of surgical intervention in the form of total joint arthroplasty were given. Pre-operative optimization will be done prior to surgical procedure to limit tigre-operative risks. I have discussed the planned procedure, how and who performs the procedure, and the personnel involved. We discussed the hospital procedure for total joint replacements. Cardiovascular, pulmonary, and other life-threatening episodes can occur during surgery although there is a low risk of these happening. Surgical risks including bleeding, neurovascular injury, wound closure problems and infection were discussed. Tigre- operative risks including infection, bleeding, wound healing problems, and need for further surgery were discussed. It was discussed that there is a possibility of blood transfusion with any surgical procedure and the risks involved in receiving a blood transfusion. The surgical procedure including anesthesia, staff, and hospitalization have been discussed in detail. Possibility of, and need for, future bracing or DME use, physical or occupational therapy, mental therapy, rehabilitation, pain management and need for secondary procedures was discussed. There is possibility of component malfunction or wear and tear requiring future procedures. I have warned against smoking and the use of tobacco products due to the risks associated with them, in particular, poor healing. Obtaining or maintaining a healthy BMI was discussed. I have advised against the half-way use of narcotic pain medication. I have advised to follow all post-operative instructions in order to obtain the best outcome. Informed consent has been verbally affirmed and signed as indicated. Plan for same-day discharge: Outpatient with bed, same-day discharge Antibiotics: Doxycycline 100 mg twice daily x7 days Anticoagulation: ASA 81 mg twice daily Follow-up: 2 weeks postoperatively Same Day Discharge- In my medical opinion, this patient does not have medical comorbidities prohibiting them from going home the same day as their joint replacement surgery although cardiovascular monitoring has been discussed. The patient also has family/friends that are willing/able to help them in the postoperative period. Patient would like to have his surgery at [facility] if possible. We will work on preoperative clearance and discussion with anesthesia The patient has been involved in our cooperative treatment plan and agrees to move forward with treatment at this time. We discussed exam findings, symptoms, and imaging and likely etiologies of the patient's pain. We discussed conservative management vs surgical intervention. The patient wishes to proceed with surgery in the form of left total hip replacement. We discussed the risks, benefits, and alternatives to surgery in general, including the potential outcomes with foregoing treatment altogether. The risks include, but are not limited to, the risk of anesthesia up to and including , infection, bleeding, tendon damage, nerve damage, vascular damage, stiffness, weakness, loss of range of motion, arthrofibrosis, failure to alleviate symptoms, worsening of symptoms, continued pain, continued mechanical symptoms, arthritic pain, post traumatic arthritis, wound healing problems, formation of cutaneous scars secondary to surgical incisions, deep venous thrombosis, pulmonary embolism, reflex sympathetic dystrophy, unforeseen complications and the need for further surgery. Procedure: Left Total Hip Arthroplasty Antibiotics: Ancef post op abx DVT ppx: Aspirin 81mg BID x 4 weeks Same Day Surgery: Yes Bed: Regular OR bed Instruments needed: Author Lucero La [facility] HospitalAuthoredNovember 2024 9:26amDougalma presents with advanced left hip DJD due to AVN. At this juncture we have discussed the findings and diagnosis as well as personally reviewed appropriate imaging and performed interpretation of related testing and examination with the patient in office today. Prior medical notes from Fahad Aceves DO and history have been reviewed. Today we have discussed degenerative joint disease of the hip and its treatment. Imaging was explained and discussed with the patient. We discussed recommended conservative therapies including physical therapy, anti-inflammatory medications, and weight loss strategies. We also discussed other treatment options including cortisone injections. I have laid out the course of hip DJD including the end-stage treatment of total joint arthroplasty. The patient recognizes and understands our options and goals and we will move forward with our treatment. At this juncture we have discussed the findings and diagnosis. Surgical intervention is recommended. Surgical versus non-operative management have been discussed in detail and non- operative management was given as an option and exhausted. The risks of surgical intervention in the form of total joint arthroplasty were given. Pre-operative optimization will be done prior to surgical procedure to limit tigre-operative risks. I have discussed the planned procedure, how and who performs the procedure, and the personnel involved. We discussed the hospital procedure for total joint replacements. Cardiovascular, pulmonary, and other life-threatening episodes can occur during surgery although there is a low risk of these happening. Surgical risks including bleeding, neurovascular injury, wound closure problems and infection were discussed. Tigre- operative risks including infection, bleeding, wound healing problems, and need for further surgery were discussed. It was discussed that there is a possibility of blood transfusion with any surgical procedure and the risks involved in receiving a blood transfusion. The surgical procedure including anesthesia, staff, and hospitalization have been discussed in detail. Possibility of, and need for, future bracing or DME use, physical or occupational therapy, mental therapy, rehabilitation, pain management and need for secondary procedures was discussed. There is possibility of component malfunction or wear and tear requiring future procedures. I have warned against smoking and the use of tobacco products due to the risks associated with them, in particular, poor healing. Obtaining or maintaining a healthy BMI was discussed. I have advised against the buttermaker use of narcotic pain medication. I have advised to follow all post-operative instructions in order to obtain the best outcome. Informed consent has been verbally affirmed and signed as indicated. Plan for same-day discharge: Outpatient with bed, same-day discharge Antibiotics: Doxycycline 100 mg twice daily x7 days Anticoagulation: ASA 81 mg twice daily Follow-up: 2 weeks postoperatively Same Day Discharge- In my medical opinion, this patient does not have medical comorbidities prohibiting them from going home the same day as their joint replacement surgery although cardiovascular monitoring has been discussed. The patient also has family/friends that are willing/able to help them in the postoperative period. Patient would like to have his surgery at [facility] if possible. We will work on preoperative clearance and discussion with anesthesia The patient has been involved in our cooperative treatment plan and agrees to move forward with treatment at this time. Patient has failed conservative treatment and decided to proceed with total hip arthroplasty. Pre-op work-up completed. The risks, benefits, alternatives, and complications of the procedure have been fully explained to the patient. Patient understands and agrees to proceed. Plan is for a total hip arthroplasty with press-fit acetabular and femoral components using the minimally invasive surgical technique. List of patient's current medications was reviewed. Patient has been instructed to stop taking Aspirin and NSAID products. Medications to be taken the morning of surgery have also been discussed. All the questions that the patient had have been answered to the patient's satisfaction. Consent signed and all paperwork handled. Patient given post op prescriptions and medication information sheet. Patient is to follow up as scheduled after surgery. Note scribed by ELVIRA Jung, reviewed and amended by myself Rashel Rosario D.O. Future Tests Future scheduled test information is unavailable Pending Tests Test Name Ordered Date Scheduled Date XR hip LT min 2V(w/wo pelvis)* February 04 8:26am Future Visits Future appointment information is unavailable Future Procedures Future procedure information is unavailable Future Medications Future medication information is unavailable Patient Instructions Instruction Admit Date Low back pain in adults February 04 9:04am Diabetes and diet March 05, 2025 4:27pm
--- OUTSIDE RECORDS SUMMARY | 2025-03-12 14:00 | XMS_ITS | Encounter Summary ---
Author Organization [facility] Address [address] [place] [address] Care Team Providers Care Manager Pool Name Role Phone Fahad Salinas DO Primary Care Provider [phone] Reason for Visit * ReasonCommentsFollow-upPatient is here today for a follow up along with surgery clearance for left hip replacement with Dr. Rosario. Patient states he feels pretty good. Patient denies chest pain, SOB/NDIAYE, lightheaded/dizziness, racing heart/palpitations, fatigueNSTEMIHypertensionHyperlipidemiaAtrial FibrillationPost opCoronary Artery DiseaseCongestive Heart Failure Encounter Details DateTypeDepartmentCare Team (Latest Contact Info)Csezqvmwngy98/26/2025 2:00 PM ESTOffice Visit [facility] [address] [phone] Rosa Lino CNP [address] [place] [phone] Coronary artery disease involving cheesh-na coronary artery of cheesh-na heart without angina pectoris (Primary Dx); History [...] week12/31/2021How often do you attend mu-ism or zoroastrianism services?1 to 4 times per year2Do you belong to any clubs or organizations such as mu-ism groups, unions, fraTianjin [employer] or athletic groups, or school groups?No12/31/2021How often do you attend meetings of the clubs or organizations you belong to?Never12/31/2021re you , , , , never , or living with a partner?Xsltuie1312/31/2021UDIT-C AnswerDate RecordedQ1: How often do you have [...] housing, medical care, and heating?Not hard at all12/31/2021[facility] - Occupational Stress QuestionnaireAnswerDate [...] steady place to sleep or slept in [facility] (including now)?12/31/2021UT Safety & EnvironmentAnswerDate RecordedFear of Current or Ex-PartnerNot on 06/08/2023Emotionally AbusedNot on file06/08/2023hysically AbusedNot on file06/08/2023Sexually AbusedNot on file06/08/2023hysically or Sexually AbusedNot on file06/08/2023Sex and Gender InformationValueDate RecordedSex Assigned at CyigoHjvx66/16/2022 10:49 PM EDT Legal YleWofp2512/31/2021 2:52 PM EDTGender YotogpkvNxkh32/16/2022 10:49 PM EDT Sexual OrientationHeterosexual or Nyrhsglv04/16/2022 10:49 PM EDTdocumented as of this encounter Last Filed Vital Signs Vital SignReadingTime TakenCommentsBlood Vnmelsqj684/6711 2:11 PM EST Nhzxr662803/12/2025 2:11 PM ESTTemperature--Respiratory Rate--Oxygen Bepwdzywcc73% 03/12/2025 2:11 PM ESTInhaled Oxygen Concentration--Akylhl214 kg (268 lb) 03/12/2025 2:11 PM XYSQhstbd563.8 cm (5' 10 )03/12/2025 2:11 PM ESTBody [...] original note were not included. Cardiovascular Medicine [facility] SUBJECTIVE Chief Complaint Patient presents with [...] He was admitted in December 2021 to [facility] with chest pain and diagnosed [...] for this visit: Coronary artery disease involving cheesh-na coronary artery of cheesh-na heart without angina pectoris History of coronary artery bypass graft Pre-op evaluation Postoperative atrial fibrillation (CMS/HCC) Heart failure with improved ejection fraction (HFimpEF) ([facility]) History of myocardial infarction Mixed hyperlipidemia [...] up in about 1 year (around 03/12/2026). oRsa Lino CNP [facility] Cardiovascular Medicine [1] Patient Active Problem List Diagnosis Chest pain NSTEMI (non-ST elevated myocardial infarction) ([facility]) Obesity Diabetes mellitus, type II, insulin dependent ([facility]) Respiratory insufficiency Hypomagnesemia Hypertension Hyperlipidemia Postoperative atrial fibrillation ([facility]) Coronary artery disease involving cheesh-na coronary artery of cheesh-na heart without angina pectoris Chronic systolic heart failure ([facility]) History of coronary artery bypass graft Acquired buried penis Erectile dysfunction associated with type 2 diabetes mellitus ([facility]) Scarring of penis Anticoagulated Balanoposthitis GERD (gastroesophageal reflux disease) Hidden penis Phimosis Type 1 diabetes ([facility]) Accidental fall Acquired hammer toe of left foot Acquired hammer toe of right foot Avascular necrosis of bone of left hip ([facility]) Balantidiasis Callosity Cellulitis of right toe Contusion of finger with damage to nail Crush injury of foot Heart failure with improved ejection fraction (HFimpEF) ([facility]) 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 Low back pain Non-pressure chronic ulcer of other part of right foot limited to breakdown of skin ([facility]) Osteoarthritis of foot, left Pain in joint involving left pelvic region and thigh Dietary counseling and surveillance Screening PSA (prostate specific antigen) Non-pressure chronic ulcer of other part of right foot with fat layer exposed ([facility]) Type 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 with diabetic polyneuropathy ([facility]) Type 2 diabetes mellitus with foot ulcer ([facility]) Type 2 diabetes mellitus with hyperglycemia ([facility]) Vitamin B 12 deficiency [2] Past Medical History: Diagnosis Date Coronary artery disease Diabetes mellitus ([facility]/HCC) Hyperlipidemia Hypertension Myocardial infarction ([facility]) 2008 [3] Family History Problem Relation [...] ProblemsRecent ProgressPatient-Stated?Author Blood Pressure < 140/90 Blood Lavegyqm861/67(03/12/2025 2:11 PM EST)Ozzie Avendano CNPdocumented as of this encounter Visit Diagnoses Diagnosis Coronary artery disease involving cheesh-na coronary artery of cheesh-na heart without angina pectoris- Primary History of coronary artery bypass graft Postsurgical aortocoronary bypass status Pre-op evaluation Postoperative atrial fibrillation (CMS/HCC) Heart failure with improved ejection fraction (HFimpEF) (CMS/HCC) History of myocardial infarction Mixed hyperlipidemia Chronic systolic congestive heart failure (CMS/HCC) documented in this encounter Care Teams Team MemberRelationshipSpecialtyStart DateEnd Date Fahad Salinas DO [address] [place] [phone] [facility] - General12/31/21documented as of this encounter
--- OUTSIDE RECORDS SUMMARY | 2025-03-20 09:57 | XMS_ITS | Clinical Summary ---
Author Organization [facility] Address [address] [place], [place] [id number] Care Team Providers Care Cable Worker Helper Name Role Phone Isaak Bush MD Unavailable [phone] Fahad Salinas DO Primary Care Provider [phone] Allergies No known active allergies Medications MedicationSigDispense [...] IN THE MORNING AND 1 TABLET AT LFGMXQO2603/05/2023ctive potassium chloride ER (KLOR-CON) 20 mEq tablet Take 20 mEq by mouth.03/02/2022ctive omega 7-twn-phy-fish oil (FISH OIL) 100-160-1,000 mg cap Take [...] MOUTH IN THE MORNING AND IN THE QSEYXMX6007/03/2023ctive pantoprazole DR (PROTONIX) 40 mg tablet TAKE 1 TABLET BY MOUTH ONCE A DAY ON EMPTY STOMACH FOLLOWED IN 30 MINUTES WITH BREAKFAST 90005/29/2023ctive spironolactone (ALDACTONE) 25 mg tablet Take 25 mg by mouth every morning.05/29/2023ctive Active Problems ProblemNoted DateDiagnosed DatePrimary wtrcenpbbmqc79/11/2024 Assessment & Plan (07/27/2023 2:29 PM EDT): Stable on Amiodarone 200 mg daily, Metoprolol 100 mg BID, and Spironolactone 25 mg daily. BP today 114/66. Hpmcdvyhdymxro53/11/2024 Assessment & Plan (07/27/2023 2:29 PM EDT): Stable on Ezetimibe 10 mg daily. Coronary artery disease involving coronary bypass graft of [place] heart without angina uvwogbzn40/11/2024 Assessment & Plan (07/27/2023 2:32 PM EDT): CAD, hx of MN s/p CABG x 5 in Dec 2021. [...] cardiac events (< 1% chance of , [place], CHF, malignant ventricular arrhythmias or high grade [...] 06/19/23 notes the following, Echo 03/30/22 ([facility]) - Global LV systolic function is difficult to assess but appears preserved, estimated ejection fraction is 55 to 60%, unable to accurately evaluate wall motion abnormalities. Paroxysmal atrial rjiznapgqvyc83/11/2024 Assessment & Plan (07/27/2023 2:35 PM EDT): Hx of post-op atrial fibrillation, treated with amiodarone and converted back to NSR. Stable on Amiodarone 200 mg daily and Metoprolol 100 mg BID. GERD (gastroesophageal reflux disease)07/27/2023 Assessment & Plan (07/27/2023 2:36 PM EDT): Stable on Pantoprazole 40 mg daily. Type 2 diabetes mellitus, with long-term current use of jshptxc5707/27/2023 Assessment & Plan (07/27/2023 2:38 PM EDT): [...] penis05/03/2023Erectile dysfunction associated with type 2 diabetes jecfxyre47/17/2024 Family History Medical HistoryRelationCommentsAnesthesia ProblemsNo Family History Social History Tobacco UseTypesPacks/DayYears UsedDateSmoking Tobacco: NeverSmokeless Tobacco: Never Tobacco Cessation:Counseling Given: Not Answered Alcohol UseStandard Drinks/WeekCommentsYes2 (1 standard drink = 0.6 oz pure alcohol)Sex and Gender InformationValueDate RecordedSex Assigned at BirthNot on fileLegal WflHagn28/09/2023 1:32 PM ESTGender IdentityNot on fileSexual OrientationNot on file Last Filed Vital Signs Vital SignReadingTime TakenCommentsBlood Dcvgxgxc875/71009/13/2023 1:15 PM EDT Rhgxa7124/29/2024 1:15 PM BPGQvivrdmirtd58.6 ??C (97.9 ??F)07/29/2023 4:12 AM EDTRespiratory Fcai843007/29/2023 8:22 AM EDTOxygen Exfyzoksxk40%07/29/2023 8:22 AM EDTInhaled Oxygen Concentration--Fvdxtc481 kg (277 lb 12.5 oz)09/13/2023 1:15 PM EJFPdleqs918.8 cm (5' 10 )08/04/2023 1:51 PM EDTBody Mass Index39.86 08/04/2023 1:51 PM EDT Plan of Treatment Health MaintenanceDue DateLast DoneCommentsDiabetic Foot Exam01/11/1972Dilated Retinal Exam01/11/1972Urine Albumin:Creatinine Ratio01/11/1972Annual PCP Team Chronic Disease Visit01/11/1980Anxiety Corhxeffo08/26/1980Depression Screening 01/11/1980HIV Nfgwubejf97/26/1980Hepatitis C Voiqtobcy28/26/1980DTaP,Tdap,Td Vaccine (1 - Tdap)1981Pneumococcal Vaccine: 50+ (1 of 2 - PCV)1981CT Wluwszaihozp92/26/2007Cologuard (FIT-DNA)01/10/20070116Tzlmjzjsswz18/26/2007 Colorectal Cancer Oiuofwnwn83/26/2007Fecal Occult Blood2007Prostate Cancer Screening Vjsfbhtwif24/26/8618Uvdxdtasgskww78/26/2007Shingrix Vaccine (1 of 2) 01/11/2012RSV Vaccine (1 - Risk 60-74 years 1-dose series)2022LDL Qzqmxvqhahi18/309/5564AiF1G88//02/2024, 01/04/2022ovid-19 Vaccine (2024- season)/10/2020, 08/03/2020, 07/13/2020 Influenza Vaccine (#1)2024 Medical Devices ImplantedTypeAreaManufacturerDevice IdentifierShelf Expiration DateModel / Serial / LotWireWireBone - Sternum Procedures Procedure NamePriorityDate/TimeAssociated DiagnosisCommentsHEMOGLOBIN W0OThlscum 07/27/2023 1:24 PM EDT Type 2 diabetes mellitus with other specified complication, with long-term current use of insulin (HCC) from Last 3 Months or Most Recently Relevant to Health Maintenance Results * (ABNORMAL) HEMOGLOBIN A1C (07/27/2023 1:24 PM EDT)ComponentValueRef RangeTest MethodAnalysis TimePerformed AtPathologist SignatureHemoglobin A1C7.1(H)4.3 - 5.6 %07/27/2023 7:24 PM [facility]:[place] Diabetes Association guidelines indicate that patients with HgbA1c in the range 5.7-6.4% are at increased risk for development of diabetes, and intervention by lifestyle modification may be beneficial. HgbA1c greater or equal to 6.5% is considered diagnostic of diabetes.Estimated Average Glucose 157mg/dL07/27/2023 7:24 PM [facility]Comment:eAG: (Estimated average glucose) is a calculated value from HgbA1c and is employee representative of the average blood glucose level in the last 2-3 month period.Specimen (Source)Anatomical Location / LateralityCollection Method / VolumeCollection TimeReceived TimeBloodBLOOD SPECIMEN / UnknownVenipuncture / Puvslsc7807/27/2023 1:24 PM EDT07/27/2023 1:25 PM EDT Narrative Authorizing ProviderResult TypeResult StatusKillian Rupal GERMAINCNPLABORATORY Final ResultPerforming OrganizationAddressCity/State/ZIP CodePhone Number [facility] [address] [place] [address] [address] [place] [address], from Last 3 Months or Most Recently Relevant to Health Maintenance Insurance [address] [place] [address] Care Teams Team MemberRelationshipSpecialtyStart DateEnd Date Fahad Salinas DO [address] [place] [address] PCP - GeneralInternal Medicine07/18/23 Isaak Bush MD [address] [place] [address] IhyuoajsjEcekblq88/9/23
--- OUTSIDE RECORDS SUMMARY | 2025-03-20 09:57 | XMS_ITS | Patient Health Record ---
Author Organization [facility] Address [address] [place] [address] [place] [address] Care Team Providers Care Buckle Stapler Name Role Phone Fahad Salinas MD Primary Care Provider Unavaila Manny Timmons Unavailable [phone] Reason For Referral No Information Medications Medication SIG (Take, Route, Frequency, Duration) Notes Start Date End Date Status metFORMIN HCl ER 500 MG Tablet Extended Release 24 Hour 3-4 tablets Orally qd ActiveFenofibrate 145 MG Tablet1 tablet Orally Once a dayActiveClopidogrel Bisulfate 75 MG Tablet1 tablet Orally Once a dayActiveLisinopril 10 MG Tablet OrallyActiveAtenolol 25 MG Tablet1 tablet Orally Once a dayActive hydroCHLOROthiazide 25 MG Tablet1 tablet Orally Once a dayActive Social History Tobacco Use: Social History Observation Description Date Details (start date - stop date) Never Smoker NA - NA Social History Social HistorySocial InfoQuestionAnswerNotestobacco usePatient is a:non smoker Problems Problem Type SNOMED Code ICD Code Onset Dates Problem Status W/U Status Risk Notes Problem Polyneuropathy due t o type 2 diabetes mellitus (227930772) Type 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 with diabetic polyneuropathy (E11.42) ActiveconfirmedProblemFoot ulcer due to type 2 diabetes mellitus (3607843192660) Type 2 diabetes mellitus with foot ulcer (E11.621)ActiveconfirmedProblem Cellulitis of right toe (7990230542)Cellulitis of right toe (L03.031)Active confirmedProblemNon-pressure chronic ulcer of other part of right foot limited to breakdown of skin (L97.511)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 with fat layer exposed (L97.512)Activeconfirmed ProblemAcquired hammer toe of right foot (4300570196996384)Other hammer toe(s) (acquired), right foot (M20.41)ActiveconfirmedProblemAcquired hammer toe of left foot (2026173190207609)Other hammer toe(s) (acquired), left foot (M20.42)Active confirmedProblemCallosity (563308129)Corns and callosities (L84)Activeconfirmed ProblemLong-term current use of drug therapy (994619596)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 drugs (Z79.84)Activeconfirmed Plan Of Treatment Pending Test Test Name Order Date Wound Culture (Deep) 05/21/2018 Wound Culture (Deep) 06/04/2018 Wound Culture (Deep) 06/26/2018 Wound Culture (Deep) 08/07/2018 XR foot RT min 3V* 05/21/2018 Insurance Providers Payer Name Payer Address Payer Phone Subscriber Number Group Number Insured Name Patient Relationship to Insured Coverage Start Date Coverage End Date [facility] [address] [address] [place] [address] [id number], DouglasSelf - patient is the insured Medical (General) History Medical History History ICD Code diabetes high blood pressureSurgical History Surgery Date(Month/Year) gallbladder removed 2008 toe removal- rt foot 06/2018
--- OUTSIDE RECORDS SUMMARY | 2025-03-20 09:57 | XMS_ITS | Clinical Summary ---
Author Organization [facility] Address [address] [place] [address] Care Team Providers Care Clinical Staff Educator Name Role Phone Fahad Salinas DO Primary Care Provider [phone] Allergies Active AllergyReactionsCriticalityNoted DateCommentsEmpagliflozinUnknown 03/10/2025Icosapent ZalpvKrzddoi80/24/2025 Medications MedicationSigDispense QuantityRefillsLast FilledStart DateEnd DateStatus insulin [...] bedtime for 184 doses. 10 mL 01/15/2022ctive Additional Information Patient not taking.Reported on 03/12/2025 potassium chloride CR (Klor-Con M20) 20 mEq [...] EVERY DAY IN THE MORNING 90 tablet ctive clopidogrel (Plavix) 75 mg tablet Take 75 mg by mouth in the morning.Active gabapentin (Neurontin) 100 mg capsule Take 100 mg by mouth at bedtime.06/17/2024tive pantoprazole (ProtoNix) 40 mg EC tablet Take 40 mg by mouth before breakfast.Active Clifton Vaughn U-200 Insulin 200 unit/mL (3 mL) insulin pen PLEASE SEE ATTACHED FOR DETAILED UMIGGOPXAP62/19/2025tive spironolactone (Aldactone) 25 mg tablet Indications:Chronic systolic heart failure (CMS/HCC)TAKE 1 TABLET BY MOUTH EVERY DAY IN THE MORNING 90 tablet tive metoprolol succinate XL (Toprol-XL) 100 mg 24 hr tablet Indications:Chronic systolic heart failure (CMS/HCC),Coronary artery disease involving cap[place] grande coronary artery of cap[place] grande heart without angina pectoris, Postoperative atrial fibrillation (CMS/HCC)TAKE 1 TABLET BY MOUTH IN THE MORNING AND 1 TABLET AT BEDTIME 180 tablet tive ezetimibe (Zetia) 10 mg tablet Indications:Mixed hyperlipidemia,Coronary artery disease involving [place] coronary artery of cap[place] heart without angina pectorisTAKE 1 TABLET BY MOUTH EVERY DAY IN THE MORNING 90 tablet tive sacubitril-valsartan (Entresto) 24-26 mg tablet Indications:Chronic systolic heart failure (CMS/HCC)TAKE 1 TABLET BY MOUTH TWICE A DAY IN THE MORNING AND IN THE EVENING 60 tablet 5Active insulin glargine (Toujeo Max Solostar, 2 unit dial,) 300 unit/mL (3 mL) injection Inject 300 Units under the skin at bedtime.03/22/2023ctive sildenafil (Viagra) 100 mg tablet Take 100 mg by mouth if needed.06/21/2023ctive amiodarone (Pacerone) 200 mg tablet Take 200 mg by mouth in the morning.03/12/2025Discontinued(Med List Cleanup) Active Problems ProblemNoted DateDiagnosed DateAccidental fall5Acquired hammer toe of left foot03/12/2025quired hammer toe of right foot03/12/2025vascular necrosis of bone of left hip03/12/20252942Dsvpyxumpcizj21/26/1519Zftgsgqyf90/26/2025 Cellulitis of right toe03/12/2025ontusion of finger with damage to nail 03/12/2025rush injury of foot03/12/2025Heart failure with improved ejection fraction (HFimpEF)03/12/2025 Overview (03/12/2025): Echo: LVEF 50%, WARREN, normal RV size/function - 06/2024 Ischemic jzmadkzdjdsccs16/26/2025 Overview (03/12/2025): PCI/stent LAD - 2007, CABG x - 12/2021, Echo: LVEF 50%, normal RV size/function - 06/2024, Left leg pain03/12/2025Long term (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 of oral hypoglycemic drugs 03/12/2025Low back pain03/12/2025Non-pressure chronic ulcer of other part of right foot limited to breakdown of skin03/12/2025Osteoarthritis of foot, left 03/12/2025Pain in joint involving left pelvic region and thigh03/12/2025Dietary counseling and nujfunvoczkl99/26/2025Screening PSA (prostate specific antigen) 03/12/2025 Overview (03/12/2025): PSA: 0.52 - 01/2025 Non-pressure chronic ulcer of other part of right foot with fat layer exposed 03/12/2025Type 2 diabetes mellitus with diabetic pjwabaheqmhdab37/26/2025Type 2 diabetes mellitus with foot ulcer03/12/2025Type 2 diabetes mellitus with mbynsawdbndyn67/26/2025Vitamin B 12 ctjdythvqi03/26/2117Zeynjvvxxtmvci46/28/2025 Yudwiywkqgrvwwg32/28/2025Hidden penis07/12/20248711Ohhpihzd98/28/2025Type 1 diabetes 07/12/2024GERD (gastroesophageal reflux disease)07/27/2023cquired buried penis /07/2023Erectile dysfunction associated with type 2 diabetes ghdnuthk46/07/2023Scarring of penishronic systolic heart qmoiosa3001/31/2022 Assessment & Plan (12/06/2022 4:51 PM EDT): [facility] II Continue GDMT- ASA, lipitor, farxiga, entresto, aldactone and toprol Diuretic therapy- farxiga and he remains euvolemic currently Monitor daily weights, I&O, fluid restriction 1.5-2L/day, renal function and electrolytes- History of coronary artery bypass graft01/31/2022 Assessment & Plan (12/06/2022 4:53 PM EDT): Remains stable Coronary artery disease involving cap[place] coronary artery of [place] heart without angina xhpnjgol40/27/2022 Assessment & Plan (12/06/2022 4:52 PM EDT): Coronary artery disease is stable without concerning symptoms Continue GDMT- asa, lipitor and toprol continue risk factor modifications- heart healthy diet, regular exercise as tolerated and continue all medications. Postoperative atrial cneopkkfzzvk38/26/2022 Assessment & Plan (12/06/2022 4:52 PM EDT): resolved Diabetes mellitus, type II, insulin uomjpusvk18/24/2022espiratory insufficiency 01/08/20224772Elbesucflntmbf59/24/4059Owxduzxuynph10/24/2022 Assessment & Plan (12/06/2022 4:52 PM EDT): Hypertension is well controlled 102/63 Renal function stable Ucnvzwatrtpbjb33/24/2022 Assessment & Plan (12/06/2022 4:52 PM EDT): Continue statin and repeat LFT and lipid level. Hwtdnst9801/04/2022hest pain12/31/2021NSTEMI (non-ST elevated myocardial infarction)12/31/2021 Resolved Problems ProblemNoted DateDiagnosed DateResolved YmdlAuxhvr24 Encounters DateTypeDepartmentCare NlmrBzxjngigufy19/26/2025 2:00 PM ESTOffice Visit [facility] [place] [address] [place] [address] Rosa Lino CNP Coronary artery disease involving cap[place] grande coronary artery of cap[place] heart without angina pectoris (Primary Dx); History of coronary artery bypass graft; Pre-op evaluation; Postoperative atrial fibrillation (CMS/HCC); Heart failure with improved ejection fraction (HFimpEF) (CMS/HCC); History of myocardial infarction; Mixed hyperlipidemia; Chronic systolic congestive heart failure (CMS/HCC)01/28/2025Refill [place] [address] [place] [address] Charbel Kasper MD Chronic systolic heart failure (CMS/HCC)from Last 3 Months Family History Medical HistoryRelationNameCommentsCoronary artery diseaseFatherRelationName StatusCommentsFatherDeceasedMotherDeceased Social History Tobacco UseTypesPacks/DayYears UsedDateSmoking Tobacco: NeverSmokeless [...] relatives?Twice a week12/31/2021How often do you attend zoroastrianism or nondenominational services?1 to 4 times per year12/31/2021o you belong to any clubs or organizations such as zoroastrianism groups, unions, fraternal or athletic groups, or school groups?No12/31/2021How often do you attend meetings of the clubs or organizations you belong to?Never12/31/2021re you , , , , never , or living with a partner?Uprhxdh4812/31/2021UDIT-C AnswerDate RecordedQ1: How often do you have [...] housing, medical care, and heating?Not hard at all12/31/2021[facility] [place] [facility] - Occupational Stress QuestionnaireAnswerDate [...] steady place to sleep or slept in [place] (including now)?No12/31/2021UT Safety & EnvironmentAnswerDate RecordedFear of Current or Ex-PartnerNot on file06/08/2023Emotionally AbusedNot on file4Physically AbusedNot on file06/08/2023Sexually AbusedNot on file06/08/2023hysically or Sexually AbusedNot on file06/08/2023Sex and Gender InformationValueDate RecordedSex Assigned at TubuwUjcj11/16/2022 10:49 PM EDT Legal HkdIrbi8712/31/2021 2:52 PM EDTGender QkcaeqcpUcuh57/16/2022 10:49 PM EDT Sexual OrientationHeterosexual or Epxixyob19/16/2022 10:49 PM EDT Last Filed Vital Signs Vital SignReadingTime TakenCommentsBlood Npltavws699/6703/12/2025 2:11 PM EST Pfsvd295003/12/2025 2:11 PM PLYKyiatgpbrhn96.4 ??C (97.6 ??F)01/20/2022 1:20 PM EDTRespiratory Vrot7953 1:20 PM EDTOxygen Kkcgieqpdp48%03/12/2025 2:11 PM ESTInhaled Oxygen Concentration--Nbgtkb945 kg (268 lb)03/12/2025 2:11 PM EST Tfzeau654.8 cm (5' 10 )03/12/2025 2:11 PM ESTBody Mass Index38.45105/12/2024 2:11 PM EST Plan of Treatment Health MaintenanceDue DateLast DoneCommentsCT Ocqqlndukugl1962Colonoscopy 2Colorectal Cancer Nvkfybblk1962FIT-DNA1962FIT1962 FOBT5489Zelaufbwrjley1962Diabetes: Retinopathy Tzhjmswus82/26/1972 Depression Nyffdhzor79/26/1974Diabetes: Urine Protein Ycxoffauo66/26/1981 Pneumococcal Vaccine: Pediatrics (0 to 5 Years) and At-Risk Patients (6 to 64 Years) (1 of 2 - PCV)1981Adult Mgmqccv9201/11/1984Zoster Vaccines (1 of 2) 01/11/2012Diabetes: Hemoglobin A1C/OVID-19 Vaccine ( season)511/, 02/12/2023, 02/24/2022, Additional history existsInfluenza MvfyvaoGtgsjvaor12/22/2025, 03/08/2024, 02/02/2023, Additional history existsHIB VaccinesAged OutNo longer eligible based on patient's age to complete this topicHPV VaccinesAged OutNo longer eligible based on patient's age to complete this topicIPV VaccinesAged OutNo longer eligible based on patient's age to complete this topicMeningococcal B VaccineAged OutNo longer eligible based on patient's age to complete this topicMeningococcal VaccineAged OutNo longer eligible based on patient's age to complete this topicRotavirus Vaccines Aged OutNo longer eligible based on patient's age to complete this topic Goals GoalPatient Goal TypeAssociated ProblemsRecent ProgressPatient-Stated?Author Blood Pressure < 140/90 Blood Oxodjffg094/67(03/12/2025 2:11 PM EST)Ozzie Avendano CNP Medical Devices ImplantedTypeAreaManufacturerDevice IdentifierShelf Expiration DateModel / Serial / LotStent Implanted:Qty: 3StentHeart Procedures Procedure NamePriorityDate/TimeAssociated DiagnosisCommentsHEMOGLOBIN O7RFjbvrty Jlqeejjdo56/20/2022 7:54 PM EDT from Last 3 Months or Most Recently Relevant to Health Maintenance Results * (ABNORMAL) Hemoglobin A1c (01/04/2022 7:54 PM EDT)ComponentValueRef RangeTest MethodAnalysis TimePerformed AtPathologist SignatureHemoglobin A1C6.6(H)4.0 - 6.0 %01/05/2022 1:19 PM [facility] ([place])Estimated Average Glucose 142.72mg/dL01/05/2022 1:19 PM [facility] ([place])Specimen (Source) Anatomical Location / LateralityCollection Method / VolumeCollection Time Received TimeBloodVenous blood specimen / UnknownArterial Line / Unknown 01/04/2022 7:54 PM EDT01/04/2022 8:42 PM EDT Narrative Authorizing ProviderResult TypeResult StatusWaleed KassaboLAB BLOOD ORDERABLES Final ResultPerforming OrganizationAddressCity/State/ZIP CodePhone Number [facility] ([place]) [address] [place] [address] from Last 3 Months or Most Recently Relevant to Health Maintenance Insurance [address] [place] [address] Advance Directives * Full Code (Latest Code Status on File) Date ActivatedDate InactivatedComments12/31/2021 8:54 PM10 5:11 PM Care Teams Team MemberRelationshipSpecialtyStart DateEnd Date Fahad Salinas DO [address] [place] [address] PCP - General12/31/21
--- OUTSIDE RECORDS SUMMARY | 2025-03-20 09:59 | XMS_ITS | CCD ---
Author Organization [facility] CliniSytn Care Team Providers Care System Support Specialist Name Role Phone Yamilex Foster Unavailable Celestina Greene Unavailable DO Fahad Aceves Primary Care Provider JAKE Foster Attending Provider [phone] Fahad Aceves Unavailable YOLA, DR GUSTAFSON Primary [...] Santacruz Unavailable YAMILEX FOSTER Primary Care Physician [phone] Antonia Bush Unavailable DO Fahad Aceves Primary Care Provider [phone] MapusJAKE Attending Provider Yamilex Foster Attending Unavailable Yamilex Foster Admitting Unavailable Fahad Aceves Primary Care Unavailable Fahad Aceves DO Primary Care Provider Antonia Bush MD Unavailable [phone] Fahad Aceves DO Primary Care Provider YAMILEX [...] Ball Fahad ROMERO Primary Care Provider [place] J[employer] WORKERYamilex Ponce Attending Provider Provider, Outside Attending Provider Unavailable Fahad Aceves DO Attending Provider Fahad Aceves DO Primary Care Provider Yamilex Foster APRN Attending Provider Fahad Aceves DO Primary Care Provider Fahad Aceves DO Attending Provider MarleneRashel nye DO Attending Provider Allergies Allergy ClassificationReported Allergen(s)Allergy TypeDate of OnsetReaction(s) Facility (20 sources)empagliflozinDrug Qdosjmn08-16-1888srfXqvyyltgySelect [facility] ([facility] sources)icosapent ethylDrug Fueyatf32-06-2002j/[facility] (1 source)empagliflozinDrug Faoxboy97-23-4420QkqjlpupaK[facility]tering [facility] (1 source)icosapent ethylDrug Ecotzqx69-67-5334CqbnbeqzeKettering [facility] Hospital Repository Medications Current Medications MedicationDrug Class(es)DatesSig (Normalized)Sig (Original)acetaminophen 325 mg oral tablet (11 sources)Start: 44-39-7950ndzt 2 tablets by mouth every six hours as needed acetaminophen (TYLENOL) 325 mg tablet Take 650 mg by mouth every 6 hours as needed. 01/15/2022 ActiveComment on above:Take 650 mg by mouth every 6 hours as needed.amiodarone hydrochloride 200 mg oral tablet (20 sources)AntiarrhythmicStart: 72-93-3357hwlr 1 tablet by mouth once daily Amiodarone 200 mg tablet Active 0 .ROUTE .COMPLEX 90 3 June 13, 2024 8:37am TAKE 1 TABLET BY MOUTH EVERY DAY Complies with drug therapyStart: 02-07-2024 End: 67-42-0142dzna 1 tablet by mouth once dailyAmiodarone 200 mg tablet Discontinued 200 MG PO Daily February 07, 2024 12:00am June 13, 2024 8:37amStart: 54-58-6966rywq 1 tablet by mouth once dailyamiodarone (PACERONE) 200 mg tablet Take 1 tablet by mouth once daily. 06/21/2023 ActiveStart: 03-24-2023 End: 25-33-9168hifa 1 tablet by mouth onceamiodarone (PACERONE) 200 mg tablet Take 1 tablet by mouth every afternoon. 0 03/24/2023 06/19/2023iscontinued Comment on above:Take 1 tablet by mouth every afternoon.Take 1 tablet by mouth once daily.amoxicillin 875 mg / clavulanate 125 mg oral tablet (2 sources)Penicillin-class AntibacterialStart: 84-87-6072ltqa 1 tablet by mouth every twelve hoursAmoxicillin-Pot Clavulanate 875-125 MG 1 tablet Orally every 12 hrs for 7 days Jan, Activeapixaban 5 mg oral tablet (16 sources)Factor Xa Inhibitortake 1 tablet by mouth every twelve hoursEliquis 5 MG 1 tablet Orally Twice a day Activeaspirin 81 mg delayed release oral tablet (20 sources)Platelet Aggregation Inhibitor, Nonsteroidal Anti-inflammatory Drug Start: 84-28-0783Mcfiiqn (Lucio Low Dose Aspirin) 81 mg Tablet,Delayed [...] tablet (20 sources)HMG-CoA Reductase InhibitorStart: 12-18-2023 End: 70-49-5272vngj 1 tablet by mouth once daily in the eveningAtorvastatin 80 mg tablet Active 0 .ROUTE .COMPLEX 90 3 December 11, 2024 7:40am TAKE 1 TABLET BY MOUTH EVERY DAY IN THE EVENING Complies with drug therapyStart: 03-22-2023 End: 30-06-8159xdjj 1 tablet by mouth once dailyAtorvastatin 80 mg tablet Discontinued 80 MG PO Daily June 21, 2023 1:00am December 18, 2023 8:42am Comment on above:Take 80 mg by mouth every evening.Blood-Glucose Sensor (Freestyle Shivani 2 Plus Sensor) device (3 sources)Start: 75-70-8931Rvpyf-Glucose Sensor (Freestyle Shivani 2 Plus Sensor) device Active 0 .Route 6 3 November 01, 2024 12:00am Type 2 diabetes mellitus with hyperglycemia Type 2 diabetes mellitus with hyperglycemia intermediate (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 Use to monitor BG, Change every 15 daysStart: 08-85-1491Zrzvf- Glucose Sensor (Freestyle Shivani 2 Plus Sensor) device Active 0 .Route 6 November 01, 2024 12:00am Use to monitor BG, Change every 15 daysbumetanide 1 mg oral tablet (20 sources)Loop DiureticStart: 03-28-3790vxhm 1 tablet by mouth once daily Bumetanide 1 mg tablet Active 1 MG PO Daily June 21, 2023 1:00am Complies with drug therapyStart: 50-83-4486ronu 1 tablet by mouth every twenty-four hours Bumetanide 1 MG 1 tablet Orally Once a day for 30 days Apr, Active End: 60-23-5493chzjipqqou (BUMEX ORAL) Take by mouth. 0 07/27/2023 Discontinued (Discontinued by Patient)bumetanide (BUMEX ORAL) Take by mouth. 0 Activetake 1 tablet by mouth once dailyBumex 1 MG 1 tablet Orally Once a day ActiveComment on above:Take by mouth.cephalexin 500 mg oral capsule (1 source)Cephalosporin AntibacterialStart: 07-29-2023 End: 35-50-0815paot 1 capsule by mouth twice dailycephALEXin (KEFLEX) 500 mg capsule Take 1 capsule by mouth two times a day. 60 capsule 0 07/29/2023 08/28/2023 ActiveComment on above:Take 1 capsule by mouth two times a day. cinnamon bark 500 mg oral capsule (13 sources)Start: 22-18-9690dsrf 1 capsule by mouth twice dailyCinnamon Bark (Cinnamon) 500 mg Capsule Active 500 MG PO Twice daily June 26, 2018 12:00am DM Complies with drug therapyclopidogrel 75 mg oral tablet (20 sources)P2Y12 Platelet InhibitorStart: 63-30-4680mhxi 1 tablet by mouth once dailyClopidogrel 75 mg tablet Active 75 MG PO Daily May 15, 2024 1:00am Complies with drug therapyStart: 06-26-2018 End: 51-75-1001Fudoipunddf 75 mg tablet Discontinued 75 MG PO 1200 June 26, 2018 12:00am June 21, 2023 5:28pmdocusate sodium 100 mg oral capsule (1 source)Start: 07-29-2023 End: 77-25-0333jhjp 1 capsule by mouth twice dailydocusate sodium (COLACE) 100 mg capsule Take 1 capsule by mouth two times a day. 60 capsule 0 07/29/2023 08/28/2023 ActiveComment on above:Take 1 capsule by mouth two times a day. ezetimibe 10 mg oral tablet (20 sources)Dietary Cholesterol Absorption InhibitorStart: 19-76-1010ralu 1 tablet by mouth once dailyEzetimibe 10 mg tablet Active 10 MG PO Daily June 21, 2023 1:00am Complies with drug therapyStart: 09-48-2471zidm 1 tablet by mouth every twenty-four hoursEzetimibe 10 MG 1 tablet Orally Once a day for 30 days Apr, ActiveComment on above:Take 10 mg by mouth every morning. famotidine 40 mg oral tablet (20 sources)Histamine-2 Receptor AntagonistStart: 76-50-4994zykl 1 tablet by mouth once daily at bedtimeFamotidine 40 mg tablet Active 40 MG PO Daily at bedtime June 21, 2023 1:00am Complies with drug therapyStart: 33-99-3450aiul 1 tablet by mouth every twenty-four hoursFamotidine 40 MG 1 tablet at bedtime Orally Once a day Apr, ActiveFish Oils (19 sources)Fish Oil ActiveFreeStyle Shivani 2 Sensor - (20 sources)Start: 13-52-7356CjazDbcpw Shivani 2 Sensor - as directed In Vitro Change Every 14 days for 84 days Dec, ActiveFreeStyle Shivani 2 Sensor - CHANGE EVERY 14 DAYS for 84 Activegabapentin 100 mg oral capsule (20 sources)Anti-epileptic AgentStart: 04-57-8268vkbm 2 capsules by mouth once dailyGabapentin 100 mg capsule Active 200 MG PO Daily 60 13 09July 10, 2024 12:18pm Complies with drug therapyStart: 06-17-2024 End: 68-50-6880tgrn 1 capsule by mouth at bedtimeGabapentin 100 mg capsule Discontinued 0 .ROUTE .COMPLEX 30 June 17, 2024 8:44am July 10, 2024 12:19pm TAKE 1 CAPSULE BY MOUTH AT BEDTIMEStart: 04-23-2024 End: 26-25-4387airb 1 capsule by mouth once daily at bedtimeGabapentin 100 mg capsule Discontinued 100 MG PO Daily at bedtime 30 30 0 April 23, 2024 5:24pm June 17, 2024 8:44amInsulin Glargine U-300 Conc (8 sources)Start: 01-45-0180khcnct 70 [IU] by subcutaneous injection once daily at bedtimeInsulin Glargine U-300 Conc Active 70 UNIT SUBCUT Daily at bedtime February 07, 2024 5:11pmStart: 02-07-2024 End: 50-55-3807zvhzon 70 [IU] by subcutaneous injection once daily at bedtime Insulin Glargine U-300 Conc Discontinued 70 UNIT SUBCUT Daily at bedtime February 07, 2024 4:39pm February 07, 2024 5:15pmStart: 11-01-2023 End: 42-46-8767onnknb 74 [IU] by subcutaneous injection once daily at bedtime Insulin Glargine U-300 Conc Discontinued 74 UNIT SUBCUT Daily at bedtime November 01, 2023 5:07pm February 07, 2024 4:43pmStart: 38-71-2001rissoz 74 [IU] by subcutaneous injection once daily at bedtimeInsulin Glargine U-300 Conc Active 74 UNIT SUBCUT Daily at bedtime November 01, 2023 5:07pmStart: 06-21-2023 End: 78-68-1286djnrqc 72 [IU] by subcutaneous injection once daily at bedtime Insulin Glargine U-300 Conc Discontinued 72 UNIT SUBCUT Daily at bedtime June 21, 2023 5:18pm November 01, 2023 5:07pmStart: 50-01-2050bqbpxm 72 [IU] by subcutaneous injection once daily at bedtimeInsulin Glargine U-300 Conc Active 72 UNIT SUBCUT Daily at bedtime June 21, 2023 5:18pmInsulin Glargine U-300 Conc 300 unit/mL (1.5 mL) insulin pen (15 sources)Start: 26-63-6758Zxfjmmh Glargine U-300 Conc 300 unit/mL (1.5 mL) insulin pen Active 70 UNIT SUBCUT Daily at [id number] March 19, 2024 1:35pm Start: 89-05-9973Blnnyla Glargine U-300 Conc 300 unit/mL (1.5 mL) insulin pen Active 70 UNIT SUBCUT Daily at qfhymjx16 March 19, 2024 12:35pmStart: 02-07-2024 End: 77-95-7412Uhusdut Glargine U-300 Conc 300 unit/mL (1.5 mL) insulin pen Discontinued 70 UNIT SUBCUT Daily at bedtime February 07, 2024 5:11pm March 19, 2024 1:35pmStart: 02-07-2024 End: 93-37-5736Rlzyxgg Glargine U-300 Conc 300 unit/mL (1.5 mL) insulin pen Discontinued 70 UNIT SUBCUT Daily at bedtime February 07, 2024 4:11pm March 19, 2024 12:35pmStart: 02-07-2024 End: 79-07-0844Fxuktpz Glargine U-300 Conc 300 unit/mL (1.5 mL) insulin pen Discontinued 70 UNIT SUBCUT Daily at bedtime February 07, 2024 4:39pm February 07, 2024 5:15pmStart: 02-07-2024 End: 07-18-8440Gtnxgzg Glargine U-300 Conc 300 unit/mL (1.5 mL) insulin pen Discontinued 70 UNIT SUBCUT Daily at bedtime February 07, 2024 3:39pm February 07, 2024 4:15pmStart: 11-01-2023 End: 87-62-9794Csneopo Glargine U-300 Conc 300 unit/mL (1.5 mL) insulin pen Discontinued 74 UNIT SUBCUT Daily at bedtime November 01, 2023 5:07pm February 07, 2024 4:43pmStart: 11-01-2023 End: 53-37-0485Evezdjq Glargine U-300 Conc 300 unit/mL (1.5 mL) insulin pen Discontinued 74 UNIT SUBCUT Daily at bedtime November 01, 2023 4:07pm February 07, 2024 3:43pmStart: 06-21-2023 End: 21-74-3341Rsxxzoi Glargine U-300 Conc 300 unit/mL (1.5 mL) insulin pen Discontinued 72 UNIT SUBCUT Daily at bedtime June 21, 2023 5:18pm November 01, 2023 5:07pmStart: 06-21-2023 End: 11-69-0788Yjuvlbq Glargine U-300 Conc 300 unit/mL (1.5 mL) insulin pen Discontinued 72 UNIT SUBCUT Daily at bedtime June 21, 2023 4:18pm November 01, 2023 4:07pmInsulin Lispro-Aabc (6 sources)Start: 65-18-6033Hpeqvif Lispro-Aabc Active 0 SUBCUT .COMPLEX 54 February 07, 2024 5:12pm USE 36 UNITS BEFORE BREAKFAST/lunch, 38 BEFORE SUPPER PLUS ISS 1:10 BEFORE MEALS (AT BEDTIME IF >200 HALF DOSE) *UP TO 120UNITS PER DAY* SubcutaneousStart: 02-07-2024 End: 23-30-8942Phbrize Lispro-Aabc Discontinued 0 SUBCUT .COMPLEX February 07, 2024 4:40pm February 07, 2024 5:15pm USE 36 UNITS BEFORE BREAKFAST, 38 BEFORE SUPPER PLUS ISS 1:10 BEFORE MEALS (AT BEDTIME IF >200 HALF DOSE) *UP TO 100 UNITS PER DAY* Subcutaneous (expect up to 100 units/day)Start: 06-21-2023 End: 61-89-3257Mvfzmzw Lispro-Aabc Discontinued 0 SUBCUT .COMPLEX June 21, 2023 1:00am February 07, 2024 4:43pmUSE 32 UNITS BEFORE BREAKFAST, 38 BEFORE SUPPER PLUS ISS 1:10 BEFORE MEALS (AT BEDTIME IF >200 HALF DOSE) *UP TO 100 UNITS PER DAY* Subcutaneous (expect up to 100 units/day)Start: 72-23-6217Stoemcs Lispro-Aabc Active 0 SUBCUT .COMPLEX June 21, 2023 1:00am USE 32 UNITS BEFORE BREAKFAST, 38 BEFORE SUPPER PLUS ISS 1:10 BEFORE MEALS (AT BEDTIME IF >200 HALF DOSE) *UP TO 100 UNITS PER DAY* Subcutaneous (expect up to 100 units/day) Insulin Lispro-Aabc 200 unit/mL (3 mL) insulin pen (9 sources)Start: 68-00-4343Tvxrqun Lispro-Aabc 200 unit/mL (3 mL) insulin pen Active 0 SUBCUT .COMPLEX 54 February 07, 2024 5:12pm USE 36 UNITS BEFORE BREAKFAST/lunch, 38 BEFORE SUPPER PLUS ISS 1:10 BEFORE MEALS (AT BEDTIME IF >200 HALF DOSE) *UP TO 120 UNITS PER DAY* SubcutaneousStart: 37-30-0999Jlhguyj Lispro-Aabc 200 unit/mL (3 mL) insulin pen Active 0 SUBCUT .COMPLEX 54 February 07, 2024 4:12pm USE 36 UNITS BEFORE BREAKFAST/lunch, 38 BEFORE SUPPER PLUS ISS 1:10 BEFORE MEALS (AT BEDTIME IF >200 HALF DOSE) *UP TO 120 UNITS PER DAY* SubcutaneousStart: 02-07-2024 End: 38-15-3771Fpshetm Lispro-Aabc 200 unit/mL (3 mL) insulin pen Discontinued 0 SUBCUT .COMPLEX February 07, 2024 4:40pm February 07, 2024 5:15pm USE 36 UNITS BEFORE BREAKFAST, 38 BEFORE SUPPER PLUS ISS 1:10 BEFORE MEALS (AT BEDTIME IF >200 HALF DOSE) *UP TO 100 UNITS PER DAY* Subcutaneous (expect up to 100 units/day)Start: 02-07-2024 End: 58-36-6117Txnundg Lispro-Aabc 200 unit/mL (3 mL) insulin pen Discontinued 0 SUBCUT .COMPLEX February 07, 2024 3:40pm February 07, 2024 4:15pm USE 36 UNITS BEFORE BREAKFAST, 38 BEFORE SUPPER PLUS ISS 1:10 BEFORE MEALS (AT BEDTIME IF >200 HALF DOSE) *UP TO 100 UNITS PER DAY* Subcutaneous (expect up to 100 units/day)Start: 06-21-2023 End: 34-19-6642Cdwamjp Lispro-Aabc 200 unit/mL (3 mL) insulin pen Discontinued 0 SUBCUT .COMPLEX June 21, 2023 1:00am February 07, 2024 4:43pm USE 32 UNITS BEFORE BREAKFAST, 38 BEFORE SUPPER PLUS ISS 1:10 BEFOREMEALS (AT BEDTIME IF >200 HALF DOSE) *UP TO 100 UNITS PER DAY* Subcutaneous (expect up to 100 units/day) Start: 06-21-2023 End: 05-99-0378Bsmjwse Lispro-Aabc 200 unit/mL (3 mL) insulin pen [...] oxide 400 mg oral tablet (20 sources)Start: 20-24-0404hzxw 1 tablet by mouth once dailyMagnesium Oxide 400 mg (241.3 mg magnesium) tablet Active 400 MG PO Daily June 21, 2023 1:00am Complies with drug therapytake 1 tablet by mouth every twenty-four hours Magnesium Oxide 400 MG 1 tablet as needed Orally Once a day Rsnutz30 hr metoprolol succinate 100 mg extended release oral tablet (20 sources)beta-Adrenergic BlockerStart: 18-20-4574fvcv 1 tablet by mouth twice dailyMetoprolol Succinate [...] 1 TABLET AT BEDTIMEMultivitamin preparation (6 sources)Start: 51-76-7218qevs 1 tablet by mouth once dailyMultivitamin Active 1 TAB PO Daily June 25, 2018 11:00pmStart: 47-04-0088xqki 1 tablet by mouth once dailyMultivitamin Active 1 TAB PO Daily June 26, 2018 12:00am Multivitamin Tablet (7 sources)Start: 81-12-0023eoze 1 tablet by mouth once dailyMultivitamin Tablet Active 1 TAB PO Daily June 26, 2018 12:00am Complies with drug therapyStart: 80-07-3702jtlk 1 tablet by mouth once dailyMultivitamin Tablet Active 1 TAB PO Daily June 26, 2018 12:00amStart: 49-85-2585bict 1 tablet by mouth once daily Multivitamin Tablet Active 1 TAB PO Daily June 25, 2018 11:00pmniacin 500 mg oral tablet (13 sources)Nicotinic AcidStart: 51-28-1360tpfu 1 tablet by mouth once daily at bedtimeNiacin 500 mg Tablet Active 500 MG PO Daily at bedtime June 26, 2018 12:00am Complies with drug therapyomega 5-czq-sin-fish oil (FISH OIL) 100-160-1,000 mg cap (11 sources)omega 6-scd-eja-fish oil (FISH OIL) 100-160-1,000 mg cap Take 1,000 mg by mouth. Activeomega 0-voc-cab-fish oil (FISH OIL) 100-160-1,000 mg cap Take 1,000 mg by mouth. 0 ActiveComment on above:Take 1,000 mg by mouth.pantoprazole 40 mg delayed release oral tablet (20 sources)Proton Pump InhibitorStart: 08-25-2023 End: 17-91-2150dxoq 1 tablet by mouth once daily at breakfastPantoprazole 40 mg tablet,delayed release (DR/EC) Active 0 .ROUTE .COMPLEX 90 3 August 19, 2024 7:45am TAKE 1 TABLET BY MOUTH ONCE A DAY ON EMPTY STOMACH FOLLOWED IN 30 MINUTES WITH BREAKFAST 90 Complies with drug therapyStart: 05-29-2023 End: 99-30-1540mtdo 1 tablet by mouth once dailyPantoprazole 40 mg tablet,delayed release (DR/EC) Discontinued 40 MG PO Daily June 21, 2023 1:00am August 25, 2023 1:04pmStart: 95-77-6605Onytxljoszan [address] Tab Refills(s) 0 Start Date: 03/22/23 Status: OrderedComment on above:TAKE 1 TABLET BY MOUTH ONCE A DAY ON EMPTY STOMACH FOLLOWED IN 30 MINUTES WITH BREAKFAST 90pen needle, diabetic (BD Ultra-Fine Georgina Pen Needle) (11 sources)Start: 85-78-9825oxa needle, diabetic (BD Ultra-Fine Georgina Pen Needle) Active .Route June 21, 2023 12:00amStart: 57-97-5845byd needle, diabetic (BD Ultra-Fine Georgina Pen Needle) Active .Route June 21, 2023 1:00am microencapsulated potassium chloride 20 meq extended release oral tablet (11 sources)Start: 79-91-0465epkffhbyw chloride ER (KLOR-CON) 20 mEq tablet Take 20 mEq by mouth. 03/02/2022 ActiveComment on above:Take 20 mEq by mouth. sacubitril 24 mg / valsartan 26 mg oral tablet (20 sources)Angiotensin 2 Receptor BlockerStart: 14-99-5150rqrs 1 tablet by mouth in the morningENTRESTO 24-26 mg tablet TAKE 1 TABLET BY MOUTH IN THE MORNING AND IN THE EVENING 07/03/2023 ActiveStart: 65-98-7971virf 1 tablet by mouth twice dailySacubitril-Valsartan (Entresto) [...] mg oral tablet (20 sources)Phosphodiesterase 5 InhibitorStart: 89-15-4434Nylbfdvjhi 100 mg tablet Active 100 MG PO as needed June 21, 2023 1:00am Complies with drug therapyStart: 32-92-5052vaqc 1 tablet by mouth once daily as neededSildenafil Citrate 100 MG 1 tablet Orally Once a day, as needed for ED for 30 days Oct, Activespironolactone 25 mg oral tablet (20 sources)Aldosterone AntagonistStart: 83-98-4165wxrs 1 tablet by mouth once dailySpironolactone 25 mg tablet Active 25 MG PO Daily June 21, 2023 1:00am Complies with drug therapyStart: 09-12-2605rsuiopyjdmlkxw 25 mg Tab Refills(s) 0 Start Date: 03/22/23 Status: OrderedComment on above:Take 25 mg by mouth every morning.tiZANidine 4 mg oral tablet (20 sources)Central alpha-2 Adrenergic AgonistStart: 41-49-9232dbzf 0.5-2 tablets by mouth once daily at bedtimeTizanidine 4 mg tablet Active 0 PO .COMPLEX June 21, 2023 1:00am TAKE 1/2 TO 2 TABLETS BY MOUTH EVERY DAY AT BEDTIME; Complies with drug therapyStart: 18-44-2434hvKTEftkup 4 mg Tab Refills(s) 0 Start Date: 03/22/23 Status: Ordered Completed/Discontinued Medications MedicationDrug Class(es)DatesSig (Normalized)Sig (Original)atenolol 25 mg oral tablet (20 sources)beta-Adrenergic BlockerStart: 06-26-2018 End: 93-65-3807Fcrmdnhr 25 mg tablet Discontinued 25 MG PO 1200 June 26, 2018 12:00am June 21, 2023 5:28pm HTNcanagliflozin 300 mg oral tablet (13 sources)Sodium-Glucose Cotransporter 2 InhibitorStart: 06-26-2018 End: 34-51-1715Tfomvwxvfaijn 300 mg tablet Discontinued 300 MG PO 1200 June 26, 2018 12:00am June 21, 2023 5:28pm DMciprofloxacin 500 mg oral tablet (5 sources)Quinolone AntimicrobialStart: 08-25-3525rgfo 1 tablet by mouth every twelve hoursCipro 500 MG 1 tablet Orally every 12 hrs for 7 days Jul, Not-Takingdapagliflozin 10 mg oral tablet (20 sources)Sodium-Glucose Cotransporter 2 InhibitorStart: 06-21-2023 End: 95-54-2784yunr 1 tablet by mouth once dailyDapagliflozin Propanediol (Farxiga) 10 mg tablet Discontinued 10 MG PO Daily 90 3 February 07, 2024 5:15pm November 27, 2024 4:43pm Type 2 diabetes mellitus with hyperglycemia Type 2 diabetes mellitus with hyperglycemia 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Start: 96-42-7683Dwmpeoh 10 mg oral tablet Refills(s) 0 Start Date: 03/22/23 Status: OrderedComment on above:Take 10 mg by mouth every morning.empagliflozin 10 mg oral tablet (10 sources)Sodium-Glucose Cotransporter 2 Inhibitortake 1 tablet by mouth every twenty-four hoursJardiance 10 MG 1 tablet Orally Once a day for 30 day(s) Not-Takingfenofibrate 145 mg oral tablet (20 sources)Peroxisome Proliferator Receptor alpha AgonistStart: 06-26-2018 End: 50-96-8543Lscixemhqsn Nanocrystallized 145 mg tablet Discontinued 145 MG PO 1200 June 26, 2018 12:00am June 21, 2023 5:29pm high cholesterolflash glucose sensor (FreeStyle Shivani 2 Sensor) (11 sources)Start: 06-21-2023 End: 23-71-1056vntvm glucose sensor (FreeStyle Shivani 2 Sensor) Discontinued .Route June 21, 2023 12:00am November 15, 2023 6:58amStart: 06-21-2023 End: 14-84-3563hzhyo glucose sensor (FreeStyle Shivani 2 Sensor) Discontinued .Route June 21, 2023 1:00am November 15, 2023 7:58amStart: 57-70-7646vkbvg glucose sensor (FreeStyle Shivani 2 Sensor) Active .Route June 21, 2023 1:00am Flash Glucose Sensor (Freestyle Shivani 2 Sensor) kit (8 sources)Start: 11-15-2023 End: 56-73-0496Kiaej Glucose Sensor (Freestyle Shivani 2 Sensor) kit Discontinued 0 .ROUTE .COMPLEX 6 3 November 15, 2023 7:58am November 01, 2024 8:33am CHANGE EVERY 14 DAYSStart: 11-15-2023 End: 67-97-6285Rwymb Glucose Sensor (Freestyle Shivani 2 Sensor) kit Discontinued 0 .ROUTE .COMPLEX November 15, 2023 7:58am November 01, 2024 8:33am CHANGE EVERY 14 DAYSStart: 07-72-1580Vobyg Glucose Sensor (Freestyle Shivani 2 Sensor) kit Active 0 .ROUTE .COMPLEX November 15, 2023 6:58am CHANGE EVERY 14 DAYSStart: 50-54-4738Wgtzx Glucose Sensor (Freestyle Shivani 2 Sensor) kit Active 0 .ROUTE .COMPLEX November 15, 2023 7:58am CHANGE EVERY 14 DAYSfluconazole 150 mg oral tablet (10 sources)Azole AntifungalStart: 87-33-8418Huarbbdp 150 MG 1 tablet Orally Once, repeat in 3 days if needed for 3 days August, Not-Taking hydroCHLOROthiazide 25 mg oral tablet (20 sources)Thiazide DiureticStart: 06-26-2018 End: 79-61-3876Yuuifbqbeoudzxnvidq 25 mg tablet Discontinued 25 MG PO 1200 June 26, 2018 12:00am June 21, 2023 5:29pm htn3 ml insulin aspart, human 100 unt/ml pen injector (20 sources)Insulin AnalogStart: 06-26-2018 End: 15-48-9972Fyeinwn Aspart U-100 100 unit/mL insulin pen Discontinued [...] pen injector (20 sources)Insulin AnalogStart: 02-07-2024 End: 13-89-9731Qograji Glargine U-300 Conc 300 unit/mL (1.5 mL) insulin pen Discontinued 70 UNIT SUBCUT Daily at bedtime 08 07February 07, 2024 5:11pm March 19, 2024 1:35pm Type 2 diabetes mellitus with hyperglycemia Type 2 diabetes mellitus with hyperglycemia intermediate (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 DMStart: 11-01-2023 End: 13-76-8621Mhuxmhr Glargine U-300 Conc 300 unit/mL (1.5 mL) insulin pen Discontinued 74 UNIT SUBCUT Daily at bedtime November 01, 2023 5:07pm February 07, 2024 4:43pm DMStart: 06-21-2023 End: 59-19-5644Foceyan Glargine U-300 Conc 300 unit/mL (1.5 mL) insulin pen Discontinued 72 UNIT SUBCUT Daily at bedtime June 21, 2023 5:18pm November 01, 2023 5:07pm DMStart: 85-29-8772sinxzaw glargine U-300 conc (TOUJEO MAX U-300 SOLOSTAR) 300 unit/mL (3 mL) inpn Inject 60 Units subcutaneously once daily. 03/22/2023 ActiveStart: 78-88-5299bighjqb glargine U-300 conc (TOUJEO MAX U-300 SOLOSTAR) 300 unit/mL (3 mL) inpn Refills(s) 0 0 03/22/2023 ActiveStart: 96-27-7121Xhpohz Max SoloStar 300 units/mL subcutaneous solution Refills(s) 0 Start Date: 03/22/23 Status: OrderedStart: 06-26-2018 End: 24-16-1760Tqvhzly Glargine U-300 Conc 300 unit/mL (1.5 mL) [...] pen injector (20 sources)Insulin AnalogStart: 02-07-2024 End: 20-27-7286Aqwfpaz Lispro-Aabc 200 unit/mL (3 mL) insulin pen Discontinued 0 SUBCUT .COMPLEX 54 3 February 07, 2024 5:12pm November 27, 2024 4:43pm Type 2 diabetes mellitus with hyperglycemia Type 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 with hyperglycemia 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 USE 36 UNITS BEFORE BREAKFAST/lunch, 38 BEFORE SUPPER PLUS ISS 1:10 BEFORE MEALS (AT BEDTIME IF >200 HALF DOSE) *UP TO 120 UNITS PER DAY* SubcutaneousStart: 06-21-2023 End: 58-55-6241Qwdkzby Lispro-Aabc 200 unit/mL (3 mL) insulin pen Discontinued 0 SUBCUT .COMPLEX June 21, 2023 1:00am February 07, 2024 4:43pm USE 32 UNITS BEFORE BREAKFAST, 38 BEFORE SUPPER PLUS ISS 1:10 BEFOREMEALS (AT BEDTIME IF >200 HALF DOSE) *UP TO 100 UNITS PER DAY* Subcutaneous (expect up to 100 units/day) Start: 18-37-3949Sxppizq KwikPen 100 units/mL injectable solution Refills(s) 0 Start Date: 03/22/23 Status: OrderedStart: 04-76-6004Khmwhap KwikPen 100 UNIT/ML 32 units ac breakfast , 38 supper plus ISS 1: 10 ac, (hs if >200 half dose) (expect daily dose 80 units) Subcutaneous ACHS Apr, Activelisinopril 10 mg oral tablet (20 sources)Angiotensin Converting Enzyme InhibitorStart: 06-26-2018 End: 17-54-7586Sqzllrfblh 10 mg tablet Discontinued 10 MG PO 1200 June 26, 2018 12:00am June 21, 2023 5:29pm HTNMagnesium, Zinc, Vitamin D (13 sources)Start: 06-26-2018 End: 16-60-3244ryyv 1 tablet by mouth once daily at bedtimeMagnesium, Zinc, Vitamin D Discontinued 1 TAB PO Daily at bedtime June 25, 2018 11:00pm June 21, 2023 4:29pmStart: 06-26-2018 End: 00-58-6996tmkd 1 tablet by mouth once daily at bedtimeMagnesium, Zinc, Vitamin D Discontinued 1 TAB PO Daily at bedtime June 26, 2018 12:00am June 21, 2023 5:29pmStart: 17-84-2434dsqx 1 tablet by mouth once daily at bedtime Magnesium, Zinc, Vitamin D Active 1 TAB PO Daily at bedtime June 25, 2018 11:00pmStart: 82-48-8617dsoh 1 tablet by mouth once daily at bedtimeMagnesium, Zinc, Vitamin D Active 1 TAB PO Daily at bedtime June 26, 2018 12:00am24 hr metFORMIN hydrochloride 500 mg extended release oral tablet (20 sources)BiguanideStart: 02-01-2023 End: 17-50-7890bype 1 tablet by mouth three times dailyMetformin 500 mg tablet extended release 24 hr Discontinued 500 MG PO Three times daily June 21, 2023 1:00am December 19, 2023 7:09amStart: 86-98-0259kpuk 1 tablet by mouth every twelve hoursmetFORMIN ER (GLUCOPHAGE XR) 500 mg 24 hr tablet Take 1 tablet by mouth every 12 hours. 0 02/01/2023 ActiveStart: 06-26-2018 End: 73-70-9944Krgcmexfx (Glucophage) 500 mg Tablet Discontinued 1000 MG PO 1800 June 26, 2018 12:00am June 21, 2023 5:21pm DMStart: 06-26-2018 End: 64-86-4817Yawnhjcuk (Glucophage) 500 mg Tablet Discontinued 500 MG [...] acids (Fish Oil) (11 sources)Start: 06-21-2023 End: 79-86-4604kaek 1 capsule by mouth once dailyomega-3 fatty acids (Fish Oil) Discontinued 1 CAP PO Daily June 21, 2023 12:00am February 07, 2024 3:40pm Start: 06-21-2023 End: 76-66-4811fkli 1 capsule by mouth once dailyomega-3 fatty acids (Fish Oil) Discontinued 1 CAP PO Daily June 21, 2023 1:00am February 07, 2024 4:40pm Start: 62-56-9688ehdl 1 capsule by mouth once dailyomega-3 fatty [...] infarction; Translations: [NON- ST ELEVATION MYOCARDIAL INFARCT]Onset: 64-09-3205ZjacbaiCsoyhstgpafxea/social admission (20 sources)Dietary management surveillance; Translations: [Dietary counseling and surveillance]Onset: 03-24-2021 Resolved: 16-93-7737EusejqjfTxwbfqx dysrhythmias (20 sources)Atrial fibrillation; Translations: [Unspecified atrial fibrillation] Onset: 06-01-4388VdejxuuHsicfcx ulcer of skin (1 source)Non-pressure chronic ulcer of other part of left foot limited to breakdown of skin; Translations: [N-PRS ULCR OTH PRT LT FT BRKDWN SKN]Onset: 94-32-7531XjbaywiQaouqaoandnp of device; implant or graft (8 sources)Arteriosclerosis of coronary artery bypass graft; Translations: [Atherosclerosis of coronary arterybypass graft(s) without angina pectoris] Onset: 212091-13-3264EuwvtvbXjfbhrgqfrimk of surgical procedures or medical care (2 sources)Other postprocedural complications and disorders of the circulatory system, not elsewhere classified; Translations: [Other postprocedural complications and disorders of the circulatory system, not elsewhere classified] Onset: 03-61-9933YpggkpxkNtxnnqtdhq heart failure; nonhypertensive (20 sources)Heart failure with normal ejection fraction; Translations: [Unspecified diastolic (congestive) heart failure]Onset: 66-75-3249Swcnxfd Comment on above:Echo: LVEF 50%, WARREN, normal RV size/function - oronary atherosclerosis and other heart disease (20 sources)Coronary arteriosclerosis; Translations: [Atherosclerotic heart disease of [place] coronary artery without angina pectoris]Onset: 01-06-2022 ChronicComment on above:PCI/stent LAD - 2007, CABG x - 12/2021, Echo: LVEF 50%, normal RV size/function - 06/2024,Coronary atherosclerosis and other heart disease (9 sources)Presence of aortocoronary bypass graft; Translations: [PRESENCE AORTOCORONARY BYPASS GRAFT]Onset: 27-70-1076HoiutyhmHgncdvfa injury or internal injury (8 sources)Crushing injury of right index finger, initial encounter; Translations: [Crushing injury of foot]EpisodicDiabetes mellitus with complications (20 sources)Hyperglycemia due to type 2 diabetes mellitus; Translations: [Type 2 diabetes mellitus with hyperglycemia]Onset: 01-06-2021 Resolved: 38-20-6929YwclfhjJjgdvpbv mellitus without complication (20 sources)Type 2 diabetes mellitus without complication; Translations: [Type 2 diabetes mellitus without complications]Onset: hronic Disorders of lipid metabolism (20 sources)Hypertriglyceridemia; Translations: [Pure hyperglyceridemia]Onset: 03-24-2021 Resolved: 34-21-2907QhmyzypQ Codes: Fall (4 sources)Accidental fall ; Translations: [Unspecified fall, initial encounter] 30-48-8342GzsbxgtsVnsietubkg disorders (20 sources)Gastro-esophageal reflux disease with esophagitis; Translations: [Gastroesophageal reflux disease with esophagitis without hemorrhage]Onset: [id number]fdbeo hypertension (20 sources)Essential hypertension; Translations: [Essential (primary) hypertension]Onset: 03-24-2021 Resolved: 45-67-4645ElrdsbyFwuphun on above:Carotid US: < 50% B/L - 12/2021 Genitourinary congenital anomalies (2 sources)Congenital buried penis; 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]Onset: 31-25-0963VaxioduXsemnrwpwtgnh symptoms and ill-defined conditions (12 sources)Dysuria; Translations: [Hematuria, unspecified]Onset: 08-11-2021 Resolved: 43-54-6597KndlqavjMzpaunrksuzv conditions of male genital organs (19 sources)Balanitis; Translations: [Balanitis]Onset: 80-03-0405Rfzwkul Inflammatory conditions of male genital organs (17 sources)Acute prostatitis; Translations: [Acute prostatitis]Episodic Intestinal infection (1 source)Vgtodwlvjliny91-67-8499WvbiigjwRazzmgewyxa deficiencies (20 sources)Vitamin D deficiency; Translations: [Vitamin D deficiency, unspecified]ChronicNutritional deficiencies (20 sources)Deficiency of other specified B group vitamins; Translations: [Cobalamin deficiency]Onset: 10-21-2021 Resolved: 87-58-4497OefuyqonRlxx wounds of extremities (17 sources)Open wound of toe(s) with damage to nail; Translations: [Unspecified open wound of unspecified toe(s) with damage to nail, subsequent encounter] EpisodicOsteoarthritis (6 sources)Osteoarthritis of left foot; Translations: [Primary osteoarthritis, left ankle and foot]55-42-3209OegwubdNvbrs aftercare (20 sources)Long-term current use of insulin; Translations: [intermediate (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]EpisodicOther aftercare (1 source)Long-term current use of anticoagulant; Translations: [intermediate (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 of anticoagulants]Onset: 65-87-3821TqumimryWfzyp and ill-defined heart disease (1 source)Heart vyetnja64-75-1473YflrwgiWpjdo bone disease and musculoskeletal deformities (2 sources)Avascular necrosis of bone of hip; Translations: [Idiopathic aseptic necrosis of left femur]07-34-0160JntplsfJdbiq connective tissue disease (18 sources)Pain in right foot; Translations: [Pain in right foot]Onset: 16-74-1577ZpknjidzBwktf connective tissue disease (8 sources)Pain in left lower limb; Translations: [Pain in left leg]04-23-2024 EpisodicOther connective tissue disease (1 source)Pain in left leg; Translations: [Pain in limb]79-14-3690BabtssjtUwylf diseases of veins and lymphatics (17 sources)Peripheral venous insufficiency; Translations: [Venous insufficiency (chronic) (peripheral)]EpisodicOther diseases of veins and lymphatics (3 sources)Venous insufficiency (chronic) (peripheral)EpisodicOther hereditary and degenerative nervous system conditions (1 source)Other idiopathic peripheral autonomic neuropathy; Translations: [OTH IDIO PERIPH AUTONOM NEUROPATHY]Onset: 65-95-8966XsatcudLycny lower respiratory disease (1 source)Chronic pulmonary edema; Translations: [CHRONIC PULMONARY EDEMA]Onset: 48-82-6239RwuwuvkWnphd male genital disorders (13 sources)Erectile dysfunction co-occurrent and due to arterial insufficiency; Translations: [Erectile dysfunction due to arterial insufficiency]ChronicOther male genital disorders (3 sources)Erectile dysfunction due to arterial insufficiencyChronicOther male genital disorders (15 sources)Male erectile dysfunction, unspecified; Translations: [Erectile dysfunction]Onset: 34-80-2670NhpelvcXbbks male genital disorders (13 sources)Acquired buried penis; 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]Onset: 177089-91-4313AlqabxjEtaxx male genital disorders (12 sources)Fibrosis of corpus cavernosum; Translations: [Induration penis plastica]Onset: 806231-49-9682GfitswiMoijf male genital disorders (1 source)Acquired buried penis; 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]Onset: 49-05-3654CnecatjIxviq male genital disorders (1 source)Induration penis plastica; Translations: [Scarring of penis]Onset: 38-34-2563ZwdenrvBtobi male genital disorders (1 source)Erectile dysfunction due to diseases classified elsewhere; Translations: [Erectile dysfunction associated with type 2 diabetes mellitus (HCC) (HCC)]Onset: 45-55-6260IsgtbgsXkvwd male genital disorders (12 sources)Phimosis; Translations: [Phimosis]Onset: 85-13-2960EyjdgcueNmruo non-traumatic joint disorders (17 sources)Arthropathy associated with a neurological disorder; Translations: [Charcot's joint, left ankle andfoot]ChronicOther non-traumatic joint disorders (4 sources)Arthralgia of the pelvic region and thigh; Translations: [Pain in left hip]64-49-0089HksdaxccCzciw nutritional; endocrine; and metabolic disorders (20 sources)Obese class II; Translations: [Body mass index (BMI) 37.0-37.9, adult]ChronicOther nutritional; endocrine; and metabolic disorders (20 sources)Obesity; Translations: [Obesity, unspecified]35-81-6094XzfefrxFkfzh nutritional; endocrine; and metabolic disorders (20 sources)Body mass index 40+ - severely obese; Translations: [Body mass index (BMI) 40.0-44.9, adult]ChronicOther nutritional; endocrine; and metabolic disorders (5 sources)Body mass index (BMI) 40.0-44.9, adult; Translations: [BODY MASS INDEX BMI 40.0-44.9 ADULT]Onset: 03-24-2021 Resolved: 54-11-4864MzsklukGwllr nutritional; endocrine; and metabolic disorders (17 sources)Morbid obesity; Translations: [Morbid (severe) obesity due to excess calories]ChronicOther nutritional; endocrine; and metabolic disorders (6 sources)Body mass index (BMI) 39.0-39.9, adult; Translations: [Body Mass Index 39.0-39.9, adult]Onset: 40-35-7326IvgxavbXssla nutritional; endocrine; and metabolic disorders (2 sources)Obesity, unspecified; Translations: [Obesity, unspecified]Onset: 883946-23-5691ZwsojsqQmmqo nutritional; endocrine; and metabolic disorders (20 sources)Body mass index 30+ - obesity; Translations: [Body mass index (BMI) 39.0-39.9, adult]28-19-6074DcqhsbsRydpp nutritional; endocrine; and metabolic disorders (7 sources)Obesity caused by energy imbalance; Translations: [Other obesity due to excess calories]Onset: 063902-83-7805YekyfjlQqwoy nutritional; endocrine; and metabolic disorders (1 source)Other obesity due to excess calories; Translations: [Class 2 obesity due to excess calories withoutserious comorbidity with body mass index (BMI) of 39.0 to 39.9 in adult]Onset: 20-46-6669KhgwxlqEtype nutritional; endocrine; and metabolic disorders (4 sources)Body mass index (BMI) 38.0-38.9, adult; Translations: [Body Mass Index 38.0-38.9, adult]34-91-9066HrwkecoGwjff screening for suspected conditions (not mental disorders or infectious disease) (9 sources)Encounter for screening for malignant neoplasm of prostate; Translations: [Patient encounter status]EpisodicComment on above:PSA: 0.52 - 01/2025Skin and subcutaneous tissue infections (2 sources)Cutaneous abscess of right handEpisodicSpondylosis; intervertebral disc disorders; other back problems (18 sources)Lumbosacral spondylosis with radiculopathy; Translations: [Other spondylosis with radiculopathy, lumbosacral region]Onset: 04-19-7277Uxowtdi Spondylosis; intervertebral disc disorders; other back problems (4 sources)Low back pain; Translations: [Low back pain]40-15-5269Juavkocl Superficial injury; contusion (15 sources)Blister (nonthermal), left great toe, initial encounter; Translations: [Contusion of unspecified finger with damage to nail, initial encounter]EpisodicUnclassified (1 source)CONTACT W/AND (SUSP) EXPOS COVID-19; Translations: [CONTACT W/AND (SUSP) EXPOS COVID-19]Onset: 84-99-2245Ejbrmyivxcos (1 source)Drug therapy ucxtgoa92-76-3342 Past or Other Problems Problem ClassificationProblemDateDocumented DateEpisodic/ChronicEsophageal disorders (4 sources)Esophageal disordersMycoses (1 source)Tinea unguium; Translations: [TINEA UNGUIUM]Onset: 06-70-3538Sejvwpbf Nonspecific chest pain (3 sources)Chest pain, unspecified; Translations: [CHEST PAIN UNSPECIFIED]Onset: 90-04-8115RdfxllttElcnq aftercare (9 sources)intermediate (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; Translations: [STRINGED INSTRUMENT TUNER CURRENT USE OF INSULIN]Onset: 03-24-2021 Resolved: 02-53-7450JchemtdhIigpp aftercare (1 source)intermediate (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 of oral hypoglycemic drugs; Translations: [MCFP USE ORAL HYPOGLYCEMIC DX]Onset: 04-39-2640SedpylaxCpztt connective tissue disease (3 sources)Pain in right foot; Translations: [PAIN IN RIGHT FOOT]Onset: 15-76-0991EwheiwwxJjmzo connective tissue disease (1 source)Pain in left foot; Translations: [PAIN IN LEFT FOOT]Onset: 09-20-2021 EpisodicOther nervous system disorders (1 source)Other acute postprocedural pain; Translations: [Acute post-operative pain]Onset: 01-08-1490SngplrrvOhday skin disorders (4 sources)Nail dystrophy; Translations: [NAIL DYSTROPHY]Onset: 09-09-2021 EpisodicSprains and strains (8 sources)Strain of muscle, fascia and tendon of lower back, subsequent encounter; Translations: [Strain of muscle, fascia and tendon of lower back, initial encounter]Onset: 72-36-4101NizlrlrvAwptsyn tract infections (2 sources)Urinary tract infection, site not specifiedOnset: 08-11-2021 Resolved: 53-87-9157Xuarnnfa Results Test NameValueInterpretationReference RangeFacilityBasophils Auto (Bld) [#/Vol] Ordered By: Outside Provider on 80-26-9927Flecojred (Bld) [#/Vol]0.1 10 3/uL 0.0-0.1FSelect Medical Specialty Hospital - Columbus SouthBasophils/100 WBC Auto (Bld)Ordered By: Outside Provider on 88-27-9106Vuthmfaxm/100 WBC (Bld)0.6 %0.2-2.0[facility] HospitalCholesterol in LDL Calc [Mass/Vol]Ordered By: Outside Provider on 66-47-6353Krzxcdnioyt in LDL [Mass/Vol]67.0 mg/dLKettering Memorial HospitalComment on above:<100 mg/dl SCYATNZ782-033 mg/dl NEAR OR ABOVE VTCZKVO691-593 mg/dl BORDERLINE BHVE860-030 mg/dl HIGH>190 mg/dl VERY HIGH Cholesterol in VLDL Calc [Mass/Vol]Ordered By: Outside Provider on 02-04-2025 Cholesterol in VLDL [Mass/Vol]50.2 mg/dLKettering Memorial Hospital Eosinophils/100 WBC Auto (Bld)Ordered By: Outside Provider on 02-04-2025 Eosinophils/100 WBC (Bld)2.7 %0.9-7.0[facility] Erythrocyte distribution width Auto (RBC) [Ratio]Ordered By: Outside Provider on 80-35-5490Lzhhkweknsh distribution width (RBC) [Ratio]16.2 %High11.0-15.0 [facility] HospitalGlobulin Calc (S) [Mass/Vol]Ordered By: Outside Provider on 95-33-7310Flndqfcj (S) [Mass/Vol]4.6 g/dLKettering Memorial HospitalGlomerular filtration rate (GFR) estimation in non- Ordered By: Outside Provider on 73-51-0420XVK/1.73 sq M.predicted among non- blacks MDRD (S/P/Bld) [Vol rate/Area]mL/min/{1.73_m2}>=60 mL/min/1.73m 2 [facility] HospitalHematocrit Auto (Bld) [Volume fraction]Ordered By: Outside Provider on 36-61-7684Dvtbsvvtho (Bld) [Volume fraction]51.6 % 42.0-54.0[facility] HospitalHemoglobin [Mass/volume] in Blood Ordered By: Outside Provider on 88-14-5754Htpgrtvmpj (Bld) [Mass/Vol]17.0 g/dL 14.0-18.0[facility] HospitalLaboratory - Chemistry and Chemistry - challengeOrdered By: Outside Provider on 50-88-5935Orijayr [Mass/Vol]4.2 g/dL 3.4-5.0[facility] HospitalALP [Catalytic activity/Vol]120 U/LHigh 46-116[facility] HospitalALT [Catalytic activity/Vol]39 U/L16-63 [facility] HospitalAST [Catalytic activity/Vol]27 U/L15-37 [facility] HospitalBilirubin [Mass/Vol]0.3 mg/dL0.2-1.0[facility] HospitalCalcium [Mass/Vol]9.4 mg/dL8.5-10.1FSelect Medical Specialty Hospital - Columbus SouthChloride [Moles/Vol]101 mmol/L90-311VknlgpvrcKettering Memorial HospitalCholesterol [Mass/Vol]154 mg/dL<=200[facility] Cholesterol in HDL [Mass/Vol]37 mg/cEFmb37-38JepxfrvckK[facility]tering Memorial Hospital Comment on above:> or =60 mg/dl - LOW CARDIOVASCULAR RISK<40 mg/dl - HIGH CARDIOVASCULAR RISKCO2 [Moles/Vol]27.9 mmol/L21.0-32.0[facility] HospitalCreatinine [Mass/Vol]0.69 mg/dLLow0.70-1.30[facility] HospitalGFR/1.73 sq M.predicted MDRD (S/P/Bld) [Vol rate/Area]mL/min/{1.73_m2}>=60 mL/min/1.73m 2FSelect Medical Specialty Hospital - Columbus SouthGlucose [Mass/Vol]109 mg/dLHigh 74-106[facility] HospitalPotassium [Moles/Vol]4.0 mmol/L3.5-5.1 [facility] HospitalProtein [Mass/Vol]8.8 g/dLHigh6.4-8.2FCleveland Clinic Marymount Hospitalodium [Moles/Vol]138 mmol/H815-275SdahgbbhaKettering Memorial HospitalTriglyceride [Mass/Vol]251 mg/dLHigh<=150[facility] HospitalUrea nitrogen [Mass/Vol]15.0 mg/dL7.0-18.0[facility] HospitalUrea nitrogen/Creatinine [Mass ratio]21.7 mg/mgKettering Memorial HospitalLaboratory - Hematology and Cell countsOrdered By: Outside Provider on 04-89-3597Dbwvufrn granulocytes/100 WBC (Bld)0.5 %0.0-0.5FSelect Medical Specialty Hospital - Columbus SouthLeukocytes [#/volume] corrected for nucleated erythrocytes in Blood by Automated counOrdered By: Outside Provider on 49-99-2302LBU corrected for nucl RBC Auto (Bld) [#/Vol]9.9 10 3/uL4.0-11.0 [facility] HospitalLymphocytes Auto (Bld) [#/Vol]Ordered By: Outside Provider on 99-00-3301Fyafhyajnsp (Bld) [#/Vol]2.4 10 3/uL1.2-3.8 [facility] HospitalLymphocytes/100 WBC Auto (Bld)Ordered By: Outside Provider on 42-05-4049Pyoacdjoggu/100 WBC (Bld)24.5 %20.5-60.0[facility] HospitalMCH Auto (RBC) [Entitic mass]Ordered By: Outside Provider on 21-97-3016GDL (RBC) [Entitic mass]28.0 pg25.9-34.0[facility] HospitalMCHC Auto (RBC) [Mass/Vol]Ordered By: Outside Provider on 66-06-3698MKSA (RBC) [Mass/Vol]32.9 g/dL29.9-35.2FSelect Medical Specialty Hospital - Columbus SouthMCV Auto (RBC) [Entitic vol]Ordered By: Outside Provider on 03-28-8735ELS (RBC) [Entitic vol]85.0 fL80.0-94.0[facility] HospitalMonocytes Auto (Bld) [#/Vol]Ordered By: Outside Provider on 12-43-4650Dpgkkggmz (Bld) [#/Vol]1.0 10 3/uLHigh0.3-0.8[facility] HospitalMonocytes/100 WBC Auto (Bld) Ordered By: Outside Provider on 02-31-3498Zowfhvgii/100 WBC (Bld)10.0 %1.7-12.0 [facility] HospitalNeutrophils Auto (Bld) [#/Vol]Ordered By: Outside Provider on 66-53-5770Zxxsgsmcahr (Bld) [#/Vol]6.1 10 3/uL1.4-6.5 [facility] HospitalNeutrophils/100 WBC Auto (Bld)Ordered By: Outside Provider on 39-43-9255Mdbkrstimco/100 WBC (Bld)61.7 %43.0-75.0[facility] HospitalNo Panel InformationOrdered By: Outside Provider on 44-01-9981Pmnaoeyenpj # (Auto)0.3 10 3/uL0.0-0.7FSelect Medical Specialty Hospital - Columbus SouthImmature Granulocyte # (Auto)0.05 10 3/uLHigh0.00-0.03[facility] HospitalNucleated Red Blood Cells/100 IQR0FppwfgbecKettering Memorial HospitalProstate Specific Antigen Screen0.52 ng/mL<=4.00[facility] HospitalPlatelet mean volume Auto (Bld) [Entitic vol]Ordered By: Outside Provider on 14-29-6660Mpiucxhg mean volume (Bld) [Entitic vol]9.5 fL9.5-13.5FSelect Medical Specialty Hospital - Columbus SouthPlatelets Auto (Bld) [#/Vol]Ordered By: Outside Provider on 14-64-9109Dbbqjnupg (Bld) [#/Vol]313 10 3/pQ379-279ElrjbhkoyKettering Memorial HospitalRBC Auto (Bld) [#/Vol]Ordered By: Outside Provider on 20-70-6942JSR (Bld) [#/Vol]6.07 10 6/uL4.70-6.10[facility] Hospitalerum or plasma albumin/globulin mass ratioOrdered By: Outside Provider on 02-04-2025 Albumin/Globulin [Mass ratio]0.9 {ratio}[facility] Hospitalerum or plasma anion gap determinationOrdered By: Outside Provider on 21-50-0740Mykmx gap [Moles/Vol]13.1 mmol/LFCleveland Clinic Marymount Hospitalerum or plasma total cholesterol/high density lipoprotein (HDL) cholesterol mass ratOrdered By: Outside Provider on 94-94-9475Oepwbnbnxyh.total/Cholesterol in HDL [Mass ratio] 4.2 {ratio}[facility] HospitalComment on above:3.3 - 4.4 LOW RISK4.4 - 7.1 AVERAGE RISK7.1 - 11.0 MODERATE RISK>11.0 HIGH FHCKQrO0s HPLC (Bld) [Mass fraction]Ordered By: Yamilex Foster on 24-84-7238KoA8s (Bld) [Mass fraction]7.0 %[facility] HospitalNo Panel InformationOrdered By: Yamilex Foster on 70-72-0647Fyzgftx Xiojpqx454OxpddeozsKettering Memorial Hospital Laboratory - Chemistry and Chemistry - challengeon 45-24-7544Vzbsjlsud (Vitamin B12) [Mass/Vol]601 pg/cZ053-6364FobucuygqKettering Memorial HospitalComment on above:Performed at: [facility] [id number] Director: Toy Conroy PhD, Phone: [phone] [Mass/volume] in Urineon 08-22-5682Kuvreoz DL <= 20 mg/L (U) [Mass/Vol]2.3 mg/dL<=30.0[facility] HospitalNo Panel Informationon 53-60-0306Gnlku Random Creatinine 78.24 mg/dL20.00-300.00[facility] HospitalUrine microalbumin/creatinine mass ratioon 87-79-8239Pgdnqta/Creatinine DL <= 20 mg/L (U) [Mass ratio]29.3 mg/g0.0-29.9[facility] HospitalComment on above:NO MICROALBUMINURIA 0-29 MG/GCLINICAL MICROALBUMINURIA 30-300 MG/GMACROALBUMINURIA >300 MG/GHbA1c HPLC (Bld) [Mass fraction]on 43-16-9787XuF3v (Bld) [Mass fraction]6.9 %[facility] HospitalNo Panel Information on 27-86-4831Lkszhpq Zlgyvzd980UatmegjzlKettering Memorial HospitalBasophils Auto (Bld) [#/Vol]on 29-21-9382Udysmnhij (Bld) [#/Vol]Automated basophil count0.0-0.1 [facility] HospitalBasophils/100 WBC Auto (Bld)on 07-13-2024 Basophils/100 WBC (Bld)Automated basophil %0.2-2.0[facility] HospitalCholesterol in LDL Calc [Mass/Vol]on 00-28-8118Zbhbvjufgfe in LDL [Mass/Vol]Cholesterol in LDL [Mass/volume] in Serum or Plasma by calculation [facility] HospitalComment on above:<100 mg/dl CIFVSOC886-992 mg/dl NEAR OR ABOVE OUGLNZC830-589 mg/dl BORDERLINE EUOJ999-746 mg/dl HIGH>190 mg/dl VERY HIGHCholesterol in VLDL Calc [Mass/Vol]on 66-02-2153Oiltcvoauyp in VLDL [Mass/Vol]Cholesterol in VLDL [Mass/volume] in Serum or Plasma by calculationKettering Memorial HospitalEosinophils/100 WBC Auto (Bld)on 73-22-7674Hrxxhhpnxob/100 WBC (Bld)Automated eosinophil %0.9-7.0[facility] HospitalErythrocyte distribution width Auto (RBC) [Ratio]on 35-66-4341Jjwklflxkee distribution width (RBC) [Ratio]Erythrocyte distribution width [Ratio] by Automated yqhzpKsei22.0-15.0[facility] Estimated glomerular filtration rate (GFR) non- Americanon 07-13-2024 GFR/1.73 sq M.predicted among non-blacks MDRD (S/P/Bld) [Vol rate/Area]Estimated glomerular filtration rate (GFR) non->=60 mL/min/1.73m 2 [facility] HospitalGlobulin Calc (S) [Mass/Vol]on 07-13-2024 Globulin (S) [Mass/Vol]Serum globulin measurement by calculation (mass/volume) [facility] HospitalHematocrit Auto (Bld) [Volume fraction]on 69-56-7238Mjbtbdpjui (Bld) [Volume fraction]Hematocrit [Volume Fraction] of Blood by Automated count42.0-54.0[facility] HospitalHemoglobin [Mass/volume] in Bloodon 41-85-0183Fxelqefehk (Bld) [Mass/Vol]Hemoglobin [Mass/volume] in Blood14.0-18.0[facility] HospitalLaboratory - Chemistry and Chemistry - challengeon 09-34-1080Alcvmcf [Mass/Vol]3.3 g/dLLow 3.4-5.0[facility] HospitalALP [Catalytic activity/Vol]135 U/LHigh 46-116[facility] HospitalALT [Catalytic activity/Vol]30 U/L16-63 [facility] HospitalAST [Catalytic activity/Vol]19 U/L15-37 [facility] HospitalBilirubin [Mass/Vol]0.4 mg/dL0.2-1.0[facility] HospitalCalcium [Mass/Vol]9.2 mg/dL8.5-10.1FSelect Medical Specialty Hospital - [facility] SouthChloride [Moles/Vol]104 mmol/Q95-863SsbomtyneKettering Memorial HospitalCholesterol [Mass/Vol]111 mg/dL<=200[facility] Cholesterol in HDL [Mass/Vol]35 mg/vQQyx04-66OqcrkpqawK[facility] Hospital Comment on above:> or =60 mg/dl - LOW CARDIOVASCULAR RISK<40 mg/dl - HIGH CARDIOVASCULAR RISKCO2 [Moles/Vol]29.1 mmol/L21.0-32.0[facility] HospitalCreatinine [Mass/Vol]0.93 mg/dL0.70-1.30[facility] GFR/1.73 sq M.predicted MDRD (S/P/Bld) [Vol rate/Area]mL/min/{1.73_m2}>=60 mL/min/1.73m 2FSelect Medical Specialty Hospital - Columbus SouthGlucose [Mass/Vol]168 mg/dLHigh 74-106[facility] HospitalPotassium [Moles/Vol]4.0 mmol/L3.5-5.1 [facility] HospitalProtein [Mass/Vol]7.5 g/dL6.4-8.2FCleveland Clinic Marymount Hospitalodium [Moles/Vol]142 mmol/S981-132ZrqsekfxtKettering Memorial HospitalTriglyceride [Mass/Vol]198 mg/dLHigh<=150[facility] HospitalUrea nitrogen [Mass/Vol]17.0 mg/dL7.0-18.0[facility] HospitalUrea nitrogen/Creatinine [Mass ratio]18.3 mg/mgKettering Memorial HospitalLaboratory - Hematology and Cell countson 73-18-3054Miizqoco granulocytes/100 WBC (Bld)0.5 %0.0-0.5FSelect Medical Specialty Hospital - Columbus South Leukocytes [#/volume] corrected for nucleated erythrocytes in Blood by Automated counon 36-07-3197ZZE corrected for nucl RBC Auto (Bld) [#/Vol]Leukocytes [#/volume] corrected for nucleated erythrocytes in Blood by Automated coun 4.0-11.0[facility] HospitalLymphocytes Auto (Bld) [#/Vol]on 26-49-9478Chuudwdvcea (Bld) [#/Vol]Lymphocytes [#/volume] in Blood by Automated count1.2-3.8[facility] HospitalLymphocytes/100 WBC Auto (Bld)on 68-40-3351Xwjxzbffpic/100 WBC (Bld)Lymphocytes/100 leukocytes in Blood by Automated count20.5-60.0[facility] CenterH Auto (RBC) [Entitic mass]on 93-03-7159SQY (RBC) [Entitic mass]MCH [Entitic mass] by Automated count 25.9-34.0[facility] HospitalMCHC Auto (RBC) [Mass/Vol]on 91-72-3740NPTR (RBC) [Mass/Vol]MCHC [Mass/volume] by Automated count29.9-35.2 [facility] HospitalMCV Auto (RBC) [Entitic vol]on 95-41-9091DYF (RBC) [Entitic vol]MCV [Entitic volume] by Automated count80.0-94.0[facility] HospitalMonocytes Auto (Bld) [#/Vol]on 39-16-5142Gtllbgehj (Bld) [#/Vol]Automated blood monocyte countHigh0.3-0.8[facility] HospitalMonocytes/100 WBC Auto (Bld)on 49-88-4193Levetdegi/100 WBC (Bld)Automated monocyte %1.7-12.0[facility] HospitalNeutrophils Auto (Bld) [#/Vol]on 01-47-8648Xnjmzalwkfb (Bld) [#/Vol]Neutrophils [#/volume] in Blood by Automated count1.4-6.5FSelect Medical Specialty Hospital - Columbus SouthNeutrophils/100 WBC Auto (Bld)on 21-46-1065Yixavjsvgog/100 WBC (Bld)Automated neutrophil %43.0-75.0 [facility] HospitalNo Panel Informationon 33-33-1859Cqxtwyvywee # (Auto)0.3 10 3/uL0.0-0.7FSelect Medical Specialty Hospital - Columbus SouthImmature Granulocyte # (Auto)0.04 10 3/uLHigh0.00-0.03[facility] HospitalPlatelet mean volume Auto (Bld) [Entitic vol]on 35-24-3937Zlwwxjzq mean volume (Bld) [Entitic vol]Platelet mean volume [Entitic volume] in Blood by Automated count9.5-13.5 [facility] HospitalPlatelets Auto (Bld) [#/Vol]on 07-13-2024 Platelets (Bld) [#/Vol]Platelets [#/volume] in Blood by Automated -472 [facility] HospitalRBC Auto (Bld) [#/Vol]on 96-13-2839RLF (Bld) [#/Vol]Erythrocytes [#/volume] in Blood by Automated count4.70-6.10[facility] Hospitalerum or plasma albumin/globulin mass ratioon 07-13-2024 Albumin/Globulin [Mass ratio]Serum or plasma albumin/globulin mass ratio [facility] Hospitalerum or plasma anion gap determinationon 42-73-0015Jbcmo gap [Moles/Vol]Serum or plasma anion gap determinationCleveland Clinic Akron General Lodi Hospitalerum or plasma total cholesterol/high density lipoprotein (HDL) cholesterol mass evelyn 80-94-5110Ultmcmktvjl.total/Cholesterol in HDL [Mass ratio]Serum or plasma total cholesterol/high density lipoprotein (HDL) cholesterol mass ratKettering Memorial HospitalComment on above:3.3 - 4.4 LOW RISK4.4 - 7.1 AVERAGE RISK7.1 - 11.0 MODERATE RISK>11.0 HIGH RISK Office Visiton 52-68-3759Yskzuc-up [id number] Caden Wills 1960 M Date Provider Department Center 07/12/2024 SIMBA REYEZ BOB [facility] Family History Problem Relation Age of Onset Coronary artery disease Father Family Status - Relation Status Age at Father Level of Service:60903 [place] OFFICE/OUTPATIENT ESTABLISHED MOD MDM 30 [facility] HospitalHbA1c HPLC (Bld) [Mass fraction]on 02-07-2024 HbA1c (Bld) [Mass fraction]Hemoglobin A1c/Hemoglobin.total in Blood by HPLC [facility] HospitalNo Panel Informationon 34-59-8187Rrygzky Awqwqyp949ThgszxjvgKettering Memorial HospitalTelemedicineon 17-62-3663Pywouskdcunf [id number] Caden Wills 1960 M Date Provider Department Center 01/23/2024 CAROLINE MARRERO [facility] Family History Problem Relation Age of Onset Coronary artery disease Father Family Status - Relation Status Age at Father Level of Service:NOCHG [place] 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NormalUniversTuscarawas HospitalCholesterol in LDL Calc [Mass/Vol]on 42-28-8056Azmkbxtsnvv in LDL [Mass/Vol]49.0 mg/dLKettering Memorial HospitalComment on above:<100 mg/dl UJWKBQK551-435 mg/dl NEAR OR ABOVE UVDRBYC259-231 mg/dl BORDERLINE PCHV918-536 mg/dl HIGH>190 mg/dl VERY HIGHCholesterol in VLDL Calc [Mass/Vol]on 01-20-2024 Cholesterol in VLDL [Mass/Vol]26.6 mg/dLKettering Memorial Hospital Laboratory - Chemistry and Chemistry - challengeon 98-27-6200Apjrnvyxqqw [Mass/Vol]107 mg/dL<=200[facility] HospitalCholesterol in HDL [Mass/Vol]32 mg/cDHdp93-74SywzaziifKettering Memorial HospitalComment on above:> or =60 mg/dl - LOW CARDIOVASCULAR RISK<40 mg/dl - HIGH CARDIOVASCULAR RISK Triglyceride [Mass/Vol]133 mg/dL<=150[facility] HospitalNo Panel Informationon 77-37-4802Linqsqufpupca TestCOMMENT.[facility] HospitalComment on above:Test Ordered: [id number] Apolipoprotein BApolipoprotein B 68 mg/dL BN Reference Range: <90 Desirable< 90 Borderline High 90 - 99 High 100 - 130 Very High >130 ASCVD RISK THERAPEUTIC TARGET CATEGORY APO B (mg/dL) Very High Risk <80 (if extreme risk <70) High Risk <90 Moderate Risk <90Performed at: [facility] [place], [place] [address]Txg Director: Fletcher Patel MD, Phone: [phone] at: [employer] [id number] Director: Toy Conroy PhD, Phone: [phone] or plasma total cholesterol/high density lipoprotein (HDL) cholesterol mass evelyn 95-73-8411Vdbjeegvupu.total/Cholesterol in HDL [Mass ratio]3.3 {ratio}[facility] HospitalComment on above:3.3 - 4.4 LOW RISK4.4 - 7.1 AVERAGE RISK7.1 - 11.0 MODERATE RISK>11.0 HIGH ZMTM99nk 75-42-237519Axxkvmzz by: CAROLINE SILVA on: 01/16/2024 12:14 PM Modules accepted: OrdersNormalUniversity of Cedar [facility] Center29Addended by: OPAL PEÑA on: 01/16/2024 10:44 AM Modules accepted: OrdersNormalUniversity of Cedar Park Regional Medical CenterCNPNon 49-22-6225HXEEKwkctzdxp (BEATAN) CADEN WILLS ([id number]) 1960 M Date Time Provider Department 01/15/24 JADA WILKINS During your visit today, we recorded the following information about you: Jada Wilkins, JAKE.HELP DESK ENGINEER 01/15/2024 2:53 PM Signed ----- Message from Kourtney Sena sent at 01/15/2024 9:13 AM EDT ----- Regarding: Refill medication [facility] [place] [facility]ill request for Cephalexin - it is not on his current med list. Please advise and thank you, Kourtney Wilkins, Jada Sharma APRN.HELP DESK ENGINEER 01/15/2024 2:54 PM Signed See previous telephone encounter from 10/04/2023. Keflex has been on auto refill, and [facility] has already been asked to [facility] this request. Jada Wilkins APRN.HELP DESK ENGINEER Allergies As of Date: 01/15/2024 (No Known [...] Take 20 mEq by mouth. - omega 8-lmy-brf-fish oil (FISH OIL) 100-160-1,000 mg cap Take [...] *07/27/2023 Encounter Status:Closed by JADA WILKINS on 01/15/24[facility] [id number] Caden Wills 1960 M Date Provider Department Center 01/15/2024 CAROLINE MARRERO [facility] Family History Problem Relation Age of Onset Coronary artery disease Father Family Status - Relation Status Age at Father Reason for Visit and Comments: PharmD Cardiology Consult [Other][facility] for RehabilitationCNPNon 26-61-7598EUJCTpledpody (BEATAN) CADEN WILLS ([id number]) 1960 M Date Time Provider Department 10/04/23 JADA WILKINS During your visit today, we recorded the following information about you: Jada Wilkins, JAKE.HELP DESK ENGINEER 10/04/2023 4:18 PM Signed ----- Message from Kourtney Hodge Patient Service Spec sent at 10/04/2023 7:36 AM EDT ----- Regarding: Medication refill [facility] faxed over a refill request for Cephalexin 500 mg- it is not listed in his med list . Please advise and thank you, Kourtney Wilkins, Jada Sharma APRN.HELP DESK ENGINEER 10/04/2023 4:25 PM Signed Keflex was prescribed for 1 month after buried penis surgery on 07/28/2023. Called Caden Wills. He reports trying to cancel refill [facility] for [facility] but was unsuccessful. Denies concerns about infection. Reminded him that he should follow up with Dr. Alberto in the fall. Left voicemail at [facility] in [place], advising that Caden Wills does NOT need refill on Keflex and asking them to take it off auto refill. Jada Wilkins APRN.HELP DESK ENGINEER Allergies As of Date: 10/04/2023 (No Known [...] Take 20 mEq by mouth. - omega 1-lgh-pgi-fish oil (FISH OIL) 100-160-1,000 mg cap Take [...] *07/27/2023 Encounter Status:Closed by JADA WILKINS on 10/04/23NoSelect Medical Specialty Hospital - CantonConsultation Noteon 42-20-3156Uabdfcphqsua Note [id number]#1.00[facility]'s Medical CenterCNOVon 02-97-8586EMIUFhkvzy Visit (RICKEY) CADEN WILLS ([id number]) 1960 M Date Time Provider Department 09/13/23 [...] tablet Take 20 mEq by mouth. omega 6-res-whv-fish oil (FISH OIL) 100-160-1,000 mg cap Take 1,000 mg by mouth. No current facility-administered medications on file prior to visit. 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 - omega 1-asg-hqa-fish oil (FISH OIL) 100-160-1,000 mg cap Take [...] *07/27/2023 Encounter Status:Closed by GIOVANNI MULLIGAN on 08/04/23NormalCCleveland Clinic South Pointe HospitalBauofl health - peace hospital metabolic 2000 panelon 01-81-2539Xudgt gap [Moles/Vol]14 mmol/L Normal9-18[facility] on above:Order Comment: Specimen Type: BLOOD SPECIMEN Ordering Facility: [facility] Address: [address] [place], [place] [address]Performed By: #### 09501-4 #### [facility] CLIA [id number] [address] [place] [address] [place] OF AMERICACalcium [Mass/Vol]8.9 mg/dL Normal8.5-10.2CRegency Hospital [facility]edo on above:Order Comment: Specimen Type: BLOOD SPECIMEN Ordering Facility: [facility] Address: [address] [place], [place] [address]Performed By: #### 10026-2 #### [facility] CLIA [id number] [address] [place] [address] [place] AMERICAChloride [Moles/Vol]102 mmol/ULwbmuh90-434BanwgwkueLima City Hospital on above:Order Comment: Specimen Type: BLOOD SPECIMEN Ordering Facility: [facility] Address: [address] [place], [place] [address]Performed By: #### 43740-1 #### [facility] CLIA [id number] [address] [place] [address] [place] AMERICACO2 [Moles/Vol]23 mmol/L Bvgxgy23-99IlbfseafyLima City Hospital on above:Order Comment: Specimen Type: BLOOD SPECIMEN Ordering Facility: [facility] Address: [address] [place], [place] [address]Performed By: #### 11652-0 #### [facility] CLIA [id number] [address] [place] [address] [place] AMERICACreatinine [Mass/Vol]0.71 mg/dLLow0.73-1.22[facility] on above:Order Comment: Specimen Type: BLOOD SPECIMEN Ordering Facility: [facility] Address: [address] [place], [place] [address]Performed By: #### 07373-9 #### [facility] CLIA [id number] [address] [place] [address] [place] AMERICACreatinine and Glomerular filtration rate.predicted panel (S/P/Bld)104 mL/min/1.73m???Normal>=60[facility] on above:Order Comment: Specimen Type: BLOOD SPECIMEN Ordering Facility: [facility] Address: [address] [place], [place] [address]Result Comment: Estimated Glomerular Filtration Rate (eGFR) is [...] not accurately reflect actual GFR.Performed By: #### 49709-9 #### [facility] [place] [id number] [address] [place] [address] [place] AMERICAGlucose [Mass/Vol]173 mg/dL Cpre07-95VrdktnluiLima City Hospital on above:Order Comment: Specimen Type: BLOOD SPECIMEN Ordering Facility: [facility] Address: [address] [place], [place] [address]Result Comment: The [place] Diabetes Association (ADA) provides guidance for cutoff [...] Standards of Medical Care in Diabetes 2016, [place] Diabetes Association. Diabetes Care. 2016.39(Suppl 1).Performed By: #### 65034-6 #### [facility] [place] [id number] [address] [place] [address] [place] AMERICAPotassium [Moles/Vol]4.3 mmol/LNormal3.7-5.1CRegency Hospital [place] on above:Order Comment: Specimen Type: BLOOD SPECIMEN Ordering Facility: [facility] Address: [address] [place], [place] [address]Performed By: #### 00028-6 #### [facility] [place] [id number] [address] [place] [address] [place] AMERICASodium [Moles/Vol]139 mmol/L Cffxam871-940DterjvvwfLima City Hospital on above:Order Comment: Specimen Type: BLOOD SPECIMEN Ordering Facility: [facility] Address: [address] [place], [place] [address]Performed By: #### 93523-2 #### [facility] CLIA [id number] [address] [place] [address] [place] AMERICAUrea nitrogen [Mass/Vol]18 mg/dLNormal9-24[facility] on above:Order Comment: Specimen Type: BLOOD SPECIMEN Ordering Facility: [facility] Address: [address] [place], [place] [address]Performed By: #### 02593-7 #### [facility] CLIA [id number] [address] [place] [address] [place] AMERICACBC panel Auto (Bld)on 69-29-2553Knushkafsvq distribution width (RBC) [Ratio]15.8 %High11.5-15.0 [facility] on above:Order Comment: Specimen Type: BLOOD SPECIMEN Ordering Facility: [facility] Address: [address] [place], [place] [address]Performed By: #### 55073-9 #### [facility] CLIA [id number] [address] [place] [address] [place] AMERICAHematocrit (Bld) [Volume fraction]44.7 %Mutxuw04.0-51.0[facility] on above:Order Comment: Specimen Type: BLOOD SPECIMEN Ordering Facility: [facility] Address: [address] [place], [place] [address]Performed By: #### 93721-6 #### [facility] CLIA [id number] [address] [place], [place] [address] [place] OF AMERICAHemoglobin (Bld) [Mass/Vol] 14.5 g/mXHshpsl59.0-17.0[facility] on above:Order Comment: Specimen Type: BLOOD SPECIMEN Ordering Facility: [facility] Address: [address] [place], [place] [address]Performed By: #### 76216-4 #### [facility] CLIA [id number] [address] [place], [place] [address]H (RBC) [Entitic mass]27.4 cmNewlnb03.0-34.0[facility] on above:Order Comment: Specimen Type: BLOOD SPECIMEN Ordering Facility: [facility] Address: [address] [place], [place] [address]Performed By: #### 60151-0 #### [facility] CLIA [id number] [address] [place] [address] (RBC) [Mass/Vol]32.4 g/dBYvzdlx24.5-36.0[facility] on above:Order Comment: Specimen Type: BLOOD SPECIMEN Ordering Facility: [facility] Address: [address] [place], [place] [address]Performed By: #### 92474-1 #### [facility] CLIA [id number] [address] [place], [place] [address]V (RBC) [Entitic vol]84.3 jGPchunj75.0-100.0[facility] on above:Order Comment: Specimen Type: BLOOD SPECIMEN Ordering Facility: [facility] Address: [address] [place], [place] [address]Performed By: #### 34898-2 #### [facility] CLIA [id number] [address] [place] [address] RBC (Bld) [#/Vol] 10*3/uLNormal<0.01[facility] on above:Order Comment: Specimen Type: BLOOD SPECIMEN Ordering Facility: [facility] Address: [address] [place], [place] [address]Performed By: #### 41040-3 #### [facility] CLIA [id number] [address] [place], [place] [address]Platelet mean volume (Bld) [Entitic vol]9.6 fLNormal9.0-12.7CRegency Hospital [facility] on above: Order Comment: Specimen Type: BLOOD SPECIMEN Ordering Facility: [facility] Address: [address] [place], [place] [address]Performed By: #### 19043-9 #### [facility] CLIA [id number] [address] [place] [address] AMERICAPlatelets (Bld) [#/Vol]268 10*3/tMJximpi178-259ZwfmwmuxgLima City Hospital on above:Order Comment: Specimen Type: BLOOD SPECIMEN Ordering Facility: [facility] Address: [address] [place], [place] [address]Performed By: #### 23086-6 #### [facility] CLIA [id number] [address] [place], [place] [address]RB (Bld) [#/Vol]5.30 10*6/uLNormal4.20-6.00[facility] on above:Order Comment: Specimen Type: BLOOD SPECIMEN Ordering Facility: [facility] Address: [address] [place], [place] [address]Performed By: #### 30445-4 #### [facility] CLIA [id number] [address] [place], [place] [address]W (Bld) [#/Vol]13.43 10*3/uLHigh3.70-11.00[facility] on above:Order Comment: Specimen Type: BLOOD SPECIMEN Ordering Facility: [facility] Address: [address] [place], [place] [address]Performed By: #### 34100-3 #### [facility] CLIA [id number] [address] [place], [place] [address]CNDSon 74-61-3607VVVMSGA ID: [id number] Author: JIAN ALBERTO MD Service: Urology Author Type: Resident Type: Discharge Summary Filed: 07/29/2023 12:28 Note Text: Attestation signed by Jian Alberto MD at 07/29/2023 12:28 PM Discussed with resident, agree with claudia Alberto M.D. 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) Operations During Hospitalization: CYSTOSCOPY FLEXIBLE: 32306 (CPT?) SCROTOPLASTY V-Y: 40003 (CPT?) EXCISION, EXCESSIVE SKIN AND SUBCUTANEOUS TISSUE, OTHER AREA prepubic lipectomy with fixation of skin to pubic region: 78228 (CPT?) EXCISION LYSIS PENILE POST-CIRCUMCISION ADHESIONS: 58512 (CPT?) Procedures Performed While Hospitalized: Intubation Reason [...] OiL 100-160-1,000 mg Cap Generic drug: omega 1-kmb-ock-fish oil insulin aspart U-100 100 unit/mL Commonly [...] [facility] [address] [phone] [place] [phone] acetaminophen 325 mg tablet cephALEXin 500 mg capsule docusate sodium 100 mg capsule oxyCODONE IR 5 mg immediate release tablet Future Appointments: No future appointments. Electronically STEPHANIE (more content not included)...NormalOhiohealth Berger HospitalANES POSTPROC EVALon 28-58-2593KIBS POSTPROC EVALHNO ID: [id number] Author: CHILANGO CURIEL MD Service: ? Author Type: Anesthesiologist Type: Anesthesia Postprocedure Evaluation Filed: 07/28/2023 13:45 Note Text: POST ANESTHESIA EVALUATION NOTE : 1960 Procedure Summary Date: 07/28/23 Room / Location: [address] [facility] Anesthesia Start: 0950 Anesthesia [...] July 28, 2023 TIME: 1:45 PM CSN: [id number] County Hospital PRE-OPon 05-50-9927DPPF PRE-OPHNO ID: [id number] Author: CHILANGO CURIEL MD Service: ? Author [...] artery disease involving coronary bypass graft of [place] heart without angina pectoris (+) Paroxysmal atrial [...] Take 20 mEq by mouth. - omega 5-rlu-rig-fish oil (FISH OIL) 100-160-1,000 mg cap Take 1,000 mg by mouth. I have interviewed and examined the patient. I have reviewed the medical record and/or the pre-anesthesia evaluation, pertinent labs, and test results. This contains updated information obtained within 48 hours of Surgery/Procedure. SIGNATURE: Chilango Curiel MD PATIENT NAME: Caden Wills DATE: July 28, 2023 TIME: 9:53 AM CSN: [id number] Memorial Hospital OP NOTon 51-99-3623RFQEW OP NOTHNO ID: [id number] Author: JUICE GEE MD Service: Urology Author Type: Resident Type: Brief Op Note Filed: 07/28/2023 12:38 Note Text: BRIEF OPERATIVE / PROCEDURE NOTE LOG ID: [id number] SURGERY/PROCEDURE DATE: 07/28/2023 INCISION/PROCEDURE START TIME: 10:32 AM INCISION CLOSE/PROCEDURE END TIME: 12:25 PM SURGEON(S)/PROCEDURALIST(S) AND DATA VISUALIZATION DEVELOPER(S): Surgeon(s) and Role: * Jian Alberto MD [...] DATE: July 28, 2023 TIME: 12:36 PMNormalOhiohealth Berger HospitalBauofl health - peace hospital metabolic 2000 panelon 51-73-2398Qvova gap [Moles/Vol]13 mmol/LNormal9-18[facility] Comment on above:Order Comment: Specimen Type: BLOOD SPECIMEN Ordering Facility: [facility] Address: [address] [place], [place] [address]Performed By: #### 08441-7 #### [facility] CLIA [id number] [address] [place] [address] [place] AMERICACalcium [Mass/Vol]9.3 mg/dL Normal8.5-10.2CRegency Hospital [facility] on above:Order Comment: Specimen Type: BLOOD SPECIMEN Ordering Facility: [facility] Address: [address] [place], [place] [address]Performed By: #### 70998-0 #### [facility] CLIA [id number] [address] [place] [address] [place] AMERICAChloride [Moles/Vol]104 mmol/LGjeeul67-122TtchfhopeLima City Hospital on above:Order Comment: Specimen Type: BLOOD SPECIMEN Ordering Facility: [facility] Address: [address] [place], [place] [address]Performed By: #### 31460-1 #### [facility] CLIA [id number] [address] [place] [address] [place] AMERICACO2 [Moles/Vol]23 mmol/L Qlalep78-18JkcrnsjgrLima City Hospital on above:Order Comment: Specimen Type: BLOOD SPECIMEN Ordering Facility: [facility] Address: [address] [place], [place] [address]Performed By: #### 28054-2 #### [facility] CLIA [id number] [address] [place] [address] [place] AMERICACreatinine [Mass/Vol]0.75 mg/dLNormal0.73-1.22[facility] on above:Order Comment: Specimen Type: BLOOD SPECIMEN Ordering Facility: [facility] Address: [address] [place], [place] [address]Performed By: #### 02334-8 #### [facility] CLIA [id number] [address] [place] [address] OF AMERICACreatinine and Glomerular filtration rate.predicted panel (S/P/Bld)103 mL/min/1.73m???Normal>=60[facility] on above:Order Comment: Specimen Type: BLOOD SPECIMEN Ordering Facility: [facility] Address: [address] [place], [place] [address]Result Comment: Estimated Glomerular Filtration Rate (eGFR) is [...] not accurately reflect actual GFR.Performed By: #### 02757-5 #### [facility] CLIA [id number] [address] [place] [address] [place] AMERICAGlucose [Mass/Vol]182 mg/dL Zqhm59-90CvnrwmjlsLima City Hospital on above:Order Comment: Specimen Type: BLOOD SPECIMEN Ordering Facility: [facility] Address: [address] [place], [place] [address]Result Comment: The [place] Diabetes Association (ADA) provides guidance for cutoff [...] Standards of Medical Care in Diabetes 2016, [place] Diabetes Association. Diabetes Care. 2016.39(Suppl 1).Performed By: #### 39660-7 #### [facility] [place] [id number] [address] [place] [address] [place] AMERICAPotassium [Moles/Vol]4.7 mmol/LNormal3.7-5.1CRegency Hospital [facility] on above:Order Comment: Specimen Type: BLOOD SPECIMEN Ordering Facility: [facility] Address: [address] [place], [place] [address]Performed By: #### 35405-9 #### [facility] CLIA [id number] [address] [place] [address] [place] AMERICASodium [Moles/Vol]140 mmol/L Saigun489-484LmpxgptnkLima City Hospital on above:Order Comment: Specimen Type: BLOOD SPECIMEN Ordering Facility: [facility] Address: [address] [place], [place] [address]Performed By: #### 43898-6 #### [facility] CLIA [id number] [address] [place] [address] [place] AMERICAUrea nitrogen [Mass/Vol]16 mg/dLNormal9-24[facility] on above:Order Comment: Specimen Type: BLOOD SPECIMEN Ordering Facility: [facility] Address: [address] [place], [place] [address]Performed By: #### 05573-0 #### [facility] CLIA [id number] [address] [place], [place] [address] [place] OF AMERICACBC panel Auto (Bld)on 96-58-5926Zhvuoaclykm distribution width (RBC) [Ratio]17.2 %High11.5-15.0 [facility] on above:Order Comment: Specimen Type: BLOOD SPECIMEN Ordering Facility: [facility] Address: [address] [place], [place] [address]Performed By: #### 16302-8 #### [facility] CLIA [id number] [address] [place] [address] [place] AMERICAHematocrit (Bld) [Volume fraction]50.7 %Fpvnaj94.0-51.0[facility] on above:Order Comment: Specimen Type: BLOOD SPECIMEN Ordering Facility: [facility] Address: [address] [place], [place] [address]Performed By: #### 26153-8 #### [facility] [place] [id number] [address] [place] [address] [place] AMERICAHemoglobin (Bld) [Mass/Vol] 16.6 g/uQAdnens52.0-17.0[facility] on above:Order Comment: Specimen Type: BLOOD SPECIMEN Ordering Facility: [facility] Address: [address] [place], [place] [address]Performed By: #### 74645-5 #### [facility] CLIA [id number] [address] [place] [address] [place] AMERICAMCH (RBC) [Entitic mass]27.7 eoQvuayz23.0-34.0[facility] on above:Order Comment: Specimen Type: BLOOD SPECIMEN Ordering Facility: [facility] Address: [address] [place], [place] [address]Performed By: #### 18319-6 #### [facility] IA [id number] [address]ETMCHC (RBC) [Mass/Vol]32.7 g/xECsgyqy62.5-36.0[facility] on above:Order Comment: Specimen Type: BLOOD SPECIMEN Ordering Facility: [facility] Address: [address] [place], [place] [address]Performed By: #### 20389-4 #### [facility] CLIA [id number] [address] [place], [place] [address]MCV (RBC) [Entitic vol]84.6 hYJkeypc59.0-100.0[facility] on above:Order Comment: Specimen Type: BLOOD SPECIMEN Ordering Facility: [facility] Address: [address] [place], [place] [address]Performed By: #### 96252-1 #### [facility] CLIA [id number] [address] [place] [address] AMERICANucleated RBC (Bld) [#/Vol] 10*3/uLNormal<0.01[facility] on above:Order Comment: Specimen Type: BLOOD SPECIMEN Ordering Facility: [facility] Address: [address] [place], [place] [address]Performed By: #### 19056-9 #### [facility] CLIA [id number] [address] [place] [address] [place] AMERICAPlatelet mean volume (Bld) [Entitic vol]9.5 fLNormal9.0-12.7CRegency Hospital [facility] on above: Order Comment: Specimen Type: BLOOD SPECIMEN Ordering Facility: [facility] Address: [address] [place], [place] [address]Performed By: #### 89632-3 #### [facility] CLIA [id number] [address] [place] [address] [place] AMERICAPlatelets (Bld) [#/Vol]284 10*3/iTMhooeq989-636Epvnmajlh Clinic ClevelandComment on above:Order Comment: Specimen Type: BLOOD SPECIMEN Ordering Facility: [facility] Address: [address] [place], [place] [address]Performed By: #### 44871-7 #### [facility] CLIA [id number] [address] [place] [address] AMERICARB (Bld) [#/Vol]5.99 10*6/uLNormal4.20-6.00[facility] on above:Order Comment: Specimen Type: BLOOD SPECIMEN Ordering Facility: [facility] Address: [address] [place], [place] [address]Performed By: #### 08005-8 #### [facility] CLIA [id number] [address] [place], [place] [address]W (Bld) [#/Vol]10.10 10*3/uLNormal3.70-11.00[facility] on above:Order Comment: Specimen Type: BLOOD SPECIMEN Ordering Facility: [facility] Address: [address] [place], [place] [address]Performed By: #### 69128-8 #### [facility] CLIA [id number] [address] [place] [address] PROGon 07-28-2023 NURSING PRONO ID: [id number] Author: DAVID MCLAUGHLIN, RN Service: ? Author Type: Registered Nurse Type: Nursing Progress Note Filed: 07/28/2023 14:53 Note Text: Admission/Transfer Note PATIENT NAME: Caden Wills Patient Location: [place] [address]- Room: [place] [address] Patient admitted from PACU via bed in stable condition. Actions taken: Patient oriented to room, call light function, prescribed activities, Patient rights, and Quiet at night. Patient belongings with patient. This note was completed by: David GonzalezKettering Health PATHOLOGYon [id number] REPORTNormalCRegency Hospital Toledo on above:Order Comment: Specimen Type: BLOOD SPECIMEN Ordering Facility: [facility] Address: [address] [place] [address] Comment: Surgical Pathology Report Case: [id number] Authorizing Provider: Jian Alberto MD Collected: 07/28/2023 10:42 AM Ordering Location: Admitting Received: 07/28/2023 12:18 PM Pathologist: Rajat Corbin MD Specimen: Soft Tissue (Not otherwise specified), penile skinPerformed By: #### 26327-6 #### [facility] CLIA [id number] [address] [place] [address] [place] AMERICACLINICAL HISTORYNormal [facility] on above:Order Comment: Specimen Type: BLOOD SPECIMEN Ordering Facility: 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 Address: [address] [place], [place] [address]Result Comment: A PAS stain performed on block A1 to assist in evaluating the inflamed skin demonstrates rare organisms consistent with Sydnee species in the stratum corneum. An immunohistochemical stain for T. pallidum is negative. These findings support the above diagnosis. Laboratory Developed Test (LDT) Disclaimer: Performance characteristics of immunohistochemical, immunofluorescent and chromogenic in-situ hybridization tests have been determined by the performing laboratory within [facility]???s e[facility] [place] Medicine Department ([facility], [facility], [facility], [facility], [facility], [facility], or [facility]) in a manner consistent with CLIA requirements. One or more of these tests havenot been cleared or approved by the FDA. RT-PLM is regulated under CLIA as qualified to perform high-complexity testing. These tests are used for clinical purposes. They should not be regarded as investigational or for research. Positive and negative controls stain appropriately.Performed By: #### 92786-4 #### [facility] CLIA [id number] [address] [place] [address] on above:Order Comment: Specimen Type: BLOOD SPECIMEN Ordering Facility: [facility] Address: [address] [place], [place] [address]Result Comment: Penile skin, excision: - Benign skin with acute and chronic inflammation and rare fungal organisms morphologically consistent with Sydnee species. Performed By: #### 39044-1 #### [facility] CLIA [id number] [address] [place] [address] LABNoKettering Health – [facility] on above:Order Comment: Specimen Type: BLOOD SPECIMEN Ordering Facility: [facility] Address: [address] [place], [place] [address]Result Comment: Diagnostic interpretation performed at [facility], [address] [place], [place] [id number] CLIA# [id number] Movie Shot Cameraman: Jose Power M.D.Performed By: #### 45948-2 #### [facility] CLIA [id number] [address] [place] [address] DESCRIPTIONSelect Medical Specialty [facility] on above:Order Comment: Specimen Type: BLOOD SPECIMEN Ordering Facility: [facility] Address: [address] [place], [place] [address]Result Comment: A. Soft Tissue (Not otherwise specified) Received fresh labeled penile skin is a rectangular excision of pink skin measuring 4.5 x 2.5 x 0.3 cm. The skin surface is smooth and glistening without lesion. The resection margin is cauterized and roughened. The cut surfaces are soft and glistening. Language Teacher sections are submitted in cassette A1. OLIVA July 28, 2023 12:39 PM Gross examination performed at [facility], [address] [place] [address] CLIA# [id number] By: #### 45423-9 #### [facility] CLIA [id number] [address] [place] [address] STATES OF AMERICACBC panel Auto (Bld)on 65-48-2659Pbsjjlcsuhd distribution width (RBC) [Ratio]16.1 %High11.5-15.0 [facility] on above:Order Comment: Specimen Type: BLOOD SPECIMEN Ordering Facility: [facility] Address: [address] [place], [place] [address]Performed By: #### 45823-9 #### [facility] CLIA [id number] [address] [place] [address] STATES OF AMERICAHematocrit (Bld) [Volume fraction]51.6 %High39.0-51.0[facility] on above:Order Comment: Specimen Type: BLOOD SPECIMEN Ordering Facility: [facility] Address: [address] [place], [place] [address]Performed By: #### 78220-9 #### [facility] CLIA [id number] [address] [place] [address] [place] AMERICAHemoglobin (Bld) [Mass/Vol] 16.6 g/mKZipryv72.0-17.0[facility] on above:Order Comment: Specimen Type: BLOOD SPECIMEN Ordering Facility: [facility] Address: [address] [place], [place] [address]Performed By: #### 09827-5 #### [facility] CLIA [id number] [address] [place] [address] [place] AMERICAMCH (RBC) [Entitic mass]27.6 eeHbeidk73.0-34.0[facility] on above:Order Comment: Specimen Type: BLOOD SPECIMEN Ordering Facility: [facility] Address: [address] [place], [place] [address]Performed By: #### 00790-4 #### [facility] CLIA [id number] [address] [place], [place] [address]MCHC (RBC) [Mass/Vol]32.2 g/kJEvlext76.5-36.0[facility] on above:Order Comment: Specimen Type: BLOOD SPECIMEN Ordering Facility: [facility] Address: [address] [place], [place] [address]Performed By: #### 65389-8 #### [facility] CLIA [id number] [address] [place] [address] STATES OF COMMUNITY MEMORIAL HOSPITALMCV (RBC) [Entitic vol]85.7 dSYenubs71.0-100.0[facility] on above:Order Comment: Specimen Type: BLOOD SPECIMEN Ordering Facility: [facility] Address: [address] [place], [place] [address]Performed By: #### 77285-8 #### [facility] CLIA [id number] [address] [place], [place] [address]ucleated RBC (Bld) [#/Vol] 10*3/uLNormal<0.01[facility] on above:Order Comment: Specimen Type: BLOOD SPECIMEN Ordering Facility: [facility] Address: [address] [place], [place] [address]Performed By: #### 20139-2 #### [facility] CLIA [id number] [address] [place] [address] STATES SAMARITAN HOSPITALPlatelet mean volume (Bld) [Entitic vol]10.3 fLNormal9.0-12.7CRegency Hospital [facility] on above: Order Comment: Specimen Type: BLOOD SPECIMEN Ordering Facility: [facility] Address: [address] [place], [place] [address]Performed By: #### 18074-2 #### [facility] CLIA [id number] [address] [place], [place] [address]Platelets (Bld) [#/Vol]264 10*3/bUVootlt842-425CahcjlszdLima City Hospital on above:Order Comment: Specimen Type: BLOOD SPECIMEN Ordering Facility: [facility] Address: [address] [place], [place] [address]Performed By: #### 49927-2 #### [facility] CLIA [id number] [address] [place], [place] [address]RB (d) [#/Vol]6.02 10*6/uLHigh4.20-6.00[facility] on above:Order Comment: Specimen Type: BLOOD SPECIMEN Ordering Facility: [facility] Address: [address] [place], [place] [address]Performed By: #### 65748-4 #### [facility] IA [id number] [address] [place], [place] [address]W (Bld) [#/Vol]10.12 10*3/uLNormal3.70-11.00[facility] on above:Order Comment: Specimen Type: BLOOD SPECIMEN Ordering Facility: [facility] Address: [address] [place], [place] [address]Performed By: #### 01726-1 #### [facility] IA [id number] [address] [place] [address] [place] AMERICAComprehensive metabolic 2000 panelon 34-96-0575Fdskdca [Mass/Vol]4.3 g/dLNormal3.9-4.9CRegency Hospital [facility] on above:Order Comment: Specimen Type: BLOOD SPECIMEN Ordering Facility: [facility] Address: [address] [place], [place] [address]Performed By: #### 27070-6 #### [facility] CLIA [id number] [address] [place] [address] [place] OF AMERICAALP [Catalytic activity/Vol] 100 U/MBcampr40-308XjvavwdwjLima City Hospital on above:Order Comment: Specimen Type: BLOOD SPECIMEN Ordering Facility: [facility] Address: [address] [place], [place] [address]Performed By: #### 98237-0 #### [facility] CLIA [id number] [address] [place], [place] [address] [place] AMERICAALT [Catalytic activity/Vol] 33 U/NHcxwcu57-20EmkhkscpiLima City Hospital on above:Order Comment: Specimen Type: BLOOD SPECIMEN Ordering Facility: [facility] Address: [address] [place], [place] [address]Performed By: #### 79611-2 #### [facility] CLIA [id number] [address] [place] [address] [place] AMERICAAnion gap [Moles/Vol]14 mmol/LNormal9-18[facility] on above:Order Comment: Specimen Type: BLOOD SPECIMEN Ordering Facility: [facility] Address: [address] [place], [place] [address]Performed By: #### 06893-9 #### [facility] CLIA [id number] [address] [place], [place] [address] [place] AMERICAAST [Catalytic activity/Vol] 26 U/FOxxvim39-73RjyoesgxyLima City Hospital on above:Order Comment: Specimen Type: BLOOD SPECIMEN Ordering Facility: [facility] Address: [address] [place], [place] [address]Performed By: #### 74353-4 #### [facility] CLIA [id number] [address] [place] [address] [place] AMERICABilirubin [Mass/Vol]0.2 mg/dLNormal0.2-1.3CRegency Hospital [facility] on above:Order Comment: Specimen Type: BLOOD SPECIMEN Ordering Facility: [facility] Address: [address] [place], [place] [address]Performed By: #### 85729-3 #### [facility] CLIA [id number] [address] [address] [place] AMERICACalcium [Mass/Vol]10.5 mg/dL High8.5-10.2CRegency Hospital [facility]edo on above:Order Comment: Specimen Type: BLOOD SPECIMEN Ordering Facility: [facility] Address: [address] [place], [place] [address]Performed By: #### 83368-8 #### [facility] CLIA [id number] [address] [place], [place] [address] [place] OF AMERICAChloride [Moles/Vol]101 mmol/TTvsfup11-252JugjeheyaLima City Hospital on above:Order Comment: Specimen Type: BLOOD SPECIMEN Ordering Facility: [facility] Address: [address] [place], [place] [address]Performed By: #### 04805-7 #### [facility] CLIA [id number] [address] [place] [address] [place] AMERICACO2 [Moles/Vol]25 mmol/L Qlzybo03-79OuqxnvniwLima City Hospital on above:Order Comment: Specimen Type: BLOOD SPECIMEN Ordering Facility: [facility] Address: [address] [place], [place] [address]Performed By: #### 77195-8 #### [facility] CLIA [id number] [address] [place] [address] [place] AMERICACreatinine [Mass/Vol]0.73 mg/dLNormal0.73-1.22[facility] on above:Order Comment: Specimen Type: BLOOD SPECIMEN Ordering Facility: [facility] Address: [address] [place], [place] [address]Performed By: #### 99091-4 #### [facility] CLIA [id number] [address] [place] [address] [place] AMERICACreatinine and Glomerular filtration rate.predicted panel (S/P/Bld)104 mL/min/1.73m???Normal>=60[facility] on above:Order Comment: Specimen Type: BLOOD SPECIMEN Ordering Facility: [facility] Address: [address] [place], [place] [address]Result Comment: Estimated Glomerular Filtration Rate (eGFR) is [...] not accurately reflect actual GFR.Performed By: #### 24912-1 #### [facility] CLIA [id number] [address] [place] [address] [place] AMERICAGlucose [Mass/Vol]82 mg/dL Tiimyj54-22QwxkyebxgLima City Hospital on above:Order Comment: Specimen Type: BLOOD SPECIMEN Ordering Facility: [facility] Address: [address] [place] [address] Comment: The [place] Diabetes Association (ADA) provides guidance for cutoff [...] Standards of Medical Care in Diabetes 2016, [place] Diabetes Association. Diabetes Care. 2016.39(Suppl 1).Performed By: #### 95680-8 #### [facility] CLIA [id number] [address] [place] [address] [place] AMERICAPotassium [Moles/Vol]4.1 mmol/LNormal3.7-5.1CRegency Hospital [facility] on above:Order Comment: Specimen Type: BLOOD SPECIMEN Ordering Facility: [facility] Address: [address] [place], [place] [address]Performed By: #### 31742-3 #### [facility] CLIA [id number] [address] [place] [address] [place] AMERICAProtein [Mass/Vol]7.6 g/dL Normal6.3-8.0[facility] on above:Order Comment: Specimen Type: BLOOD SPECIMEN Ordering Facility: [facility] Address: [address] [place], [place] [address]Performed By: #### 60319-2 #### [facility] CLIA [id number] [address] [place] [address] [place] AMERICASodium [Moles/Vol]140 mmol/L Xalruv296-259YsrivluvsLima City Hospital on above:Order Comment: Specimen Type: BLOOD SPECIMEN Ordering Facility: [facility] Address: [address] [place], [place] [address]Performed By: #### 01896-0 #### [facility] CLIA [id number] [address] [place] [address] [place] AMERICAUrea nitrogen [Mass/Vol]17 mg/dLNormal9-24[facility] on above:Order Comment: Specimen Type: BLOOD SPECIMEN Ordering Facility: [facility] Address: [address] [place], [place] [address]Performed By: #### 09133-6 #### [facility] CLIA [id number] [address] [place] [address] [place] AMERICAErythrocyte distribution width Auto (RBC) [Ratio]on 16-37-4097Mhbnknwakfn distribution width (RBC) [Ratio]16.1 %High11.5-15.0[facility] Memorial HospitalGlucose mean value [Mass/volume] in Blood Estimated from glycated hemoglobinon 23-52-3750Xttvhuu glucose Estimated from glycated hemoglobin (Bld) [Mass/Vol]157 mg/dLKettering Memorial HospitalComment on above:eAG: (Estimated average glucose) is a calculated value from HgbA1c and is farm loan representative of the average blood glucose level in the last 2-3 month period.HISTORY PHYSICALon 57-52-8156FCERBHA PHYSICAL HNO ID: [id number] Author: KEVIN GOLDSMITH APRN.HELP DESK ENGINEER Service: ? Author Type: Nurse Practitioner Type: [...] artery disease involving coronary bypass graft of [place] heart without angina pectoris CAD, hx of [place] s/p CABG x 5 in Dec 2021. [...] cardiac events (< 1% chance of , NM, CHF, malignant ventricular arrhythmias or high grade [...] note 06/19/23 notes the following, Echo 03/30/22 ([facility]) - Global LV systolic function [...] have a large neck STOP-Bang Score: 5 ZLL2WJ6-IOKn Score: Age: <65 Sex: male CHF history: Yes Hypertension history: Yes Stroke/TIA/thromboembolism history: No Vascular disease history: Yes Diabetes history: Yes UGS2DO5-TDWb Score: 4 ARISCAT Score: Age: 51-80 Preoperative [...] review of labs. (more content not included)...NormalOhiohealth Berger HospitalHbA1c (Bld)on 67-41-3319Lwkljmb glucose Estimated from glycated hemoglobin (Bld) [Mass/Vol]157 mg/dLSamaritan HospitalHbA1c (Bld) [Mass fraction]7.1 %High4.3 - 5.6 %[facility] glucose Estimated from glycated hemoglobin (Bld) [Mass/Vol]157 mg/dLNormalCRegency Hospital [place] on above:Order Comment: Specimen Type: BLOOD SPECIMEN Ordering Facility: [facility] Address: [address] [place], [place] [address] Comment: eAG: (Estimated average glucose) is a calculated value from HgbA1c and is farm loan representative of the average blood glucose level in the last 2-3 month period.Performed By: #### 08171-1 #### [facility] CLIA [id number] [address] [place], [place] [address] [address] STATES OF MLDIRLCVuO9k (Bld) [Mass fraction] 7.1 %High4.3-5.6CRegency Hospital [facility]edo on above:Order Comment: Specimen Type: BLOOD SPECIMEN Ordering Facility: [facility] Address: [address] [place], [place] [address] Comment: [place] Diabetes Association guidelines indicate that patients with HgbA1c in the range 5.7-6.4% are at increased risk for development of diabetes, and intervention by lifestyle modification may be beneficial. HgbA1c greater or equal to 6.5% is considered diagnostic of diabetes.Performed By: #### 15581-4 #### [facility] CLIA [id number] [address] [place] [address] [place] AMERICAHematocrit Auto (Bld) [Volume fraction]on 75-31-5579Jjqyxpbpqx (Bld) [Volume fraction]51.6 %High 39.0-51.0[facility] Memorial HospitalHemoglobin [Mass/volume] in Bloodon 18-99-9005Ucobyuhnhp (Bld) [Mass/Vol]16.6 g/dL13.0-17.0[facility] HospitalLaboratory - Chemistry and Chemistry - challengeon 07-27-2023 Albumin [Mass/Vol]4.3 g/dL3.9-4.9[facility] Memorial HospitalALP [Catalytic activity/Vol]100 U/D10-143DpsgurbkrKettering Memorial HospitalALT [Catalytic activity/Vol]33 U/K57-29BpfsbdcmdKettering Memorial HospitalAST [Catalytic activity/Vol]26 U/I28-37DqitkogfrKettering Memorial HospitalBilirubin [Mass/Vol]0.2 mg/dL0.2-1.3FSelect Medical Specialty Hospital - Columbus SouthCalcium [Mass/Vol]10.5 mg/dLHigh 8.5-10.2FSelect Medical Specialty Hospital - Columbus SouthChloride [Moles/Vol]101 mmol/L97-105 [facility] HospitalCO2 [Moles/Vol]25 mmol/O62-58BhtcglknbKettering Memorial HospitalCreatinine [Mass/Vol]0.73 mg/dL0.73-1.22[facility] HospitalGlucose [Mass/Vol]82 mg/yC68-77UdiwzlhmxKettering Memorial Hospital Comment on above:The [place] Diabetes Association (ADA) provides guidance for cutoff [...] diabetes.Reference: Standardsof Medical Care in Diabetes 2016, [place] Diabetes Association. Diabetes Care. 2016.39(Suppl 1).Potassium [Moles/Vol]4.1 mmol/L3.7-5.1FCleveland Clinic Marymount Hospitalodium [Moles/Vol]140 mmol/E684-290JcdczbarjKettering Memorial HospitalUrea nitrogen [Mass/Vol]17 mg/dL9-24[facility] HospitalLaboratory - Hematology and Cell countson 12-74-9419SiK1k (Bld) [Mass fraction]7.1 %High4.3-5.6FSelect Medical Specialty Hospital - Columbus SouthComment on above: [place] Diabetes Association guidelines indicate that patients with HgbA1c in the range 5.7-6.4% are at increased risk for development of diabetes, and intervention by lifestyle modification may be beneficial. HgbA1c greater or equal to 6.5% is considered diagnostic of diabetes.Leukocytes [#/volume] corrected for nucleated erythrocytes in Blood by Automated counon 78-88-7866TZD corrected for nucl RBC Auto (Bld) [#/Vol]10.12 k/uL3.70-11.00[facility] CenterH Auto (RBC) [Entitic mass]on 66-22-2651NVX (RBC) [Entitic mass] 27.6 pg26.0-34.0K[facility] HospitalMCHC Auto (RBC) [Mass/Vol]on 94-63-7645WGXJ (RBC) [Mass/Vol]32.2 g/dL30.5-36.0[facility] HospitalMCV Auto (RBC) [Entitic vol]on 86-86-2264NGO (RBC) [Entitic vol]85.7 fL 80.0-100.0K[facility] HospitalNo Panel Informationon 07-27-2023 Estimated GFR (CKD-EPI)104 mL/min/1.73m???>=60[facility] Comment on above:Estimated Glomerular Filtration Rate [...] reflect actual GFR.Nucleated RBC Auto (Bld) [#/Vol]on 19-62-1941Sosubovbi RBC (Bld) [#/Vol]10*3/uL<0.01K[facility] HospitalPlatelet mean volume Auto (Bld) [Entitic vol]on 64-85-3728Echcsbjd mean volume (Bld) [Entitic vol]10.3 fL9.0-12.7FSelect Medical Specialty Hospital - Columbus SouthPlatelets Auto (Bld) [#/Vol]on 27-10-7136Hhphrjjkn (Bld) [#/Vol]264 10*3/nK076-855KgzabupmwKettering Memorial HospitalProtein [Mass/volume] in Serum or Plasmaon 19-36-2734Qdoyelc [Mass/Vol]7.6 g/dL6.3-8.0K[facility] HospitalRBC Auto (Bld) [#/Vol]on 70-47-2774HAD (Bld) [#/Vol]6.02 10*6/uLHigh4.20-6.00[facility] Lodi Hospitalerum or plasma anion gap determinationon 12-26-2517Mpehr gap [Moles/Vol]14 mmol/L9-18FSelect Medical Specialty Hospital - Columbus SouthCNPNon 02-32-3007JTCSXydxbdfgx (RICKEY) CADEN WILLS ([id number]) 1960 M Date Time Provider Department 07/18/23 [...] with a 6:00 arrival time at [facility]. States that he will be going home after pre ops on 07/26 and coming back the following day. No other questions or concerns expressed. 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 - omega 7-auq-vsd-fish oil (FISH OIL) 100-160-1,000 mg cap Take 1,000 mg by mouth. - bumetanide (BUMEX ORAL) Take by mouth. 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] 05/03/2023 Scarring of penis [N48.6] 05/03/2023 Erectile dysfunction associated with type 2 beverley*05/03/2023 Encounter Status:Closed by NOY MARY on 07/18/23NoSelect Medical Specialty Hospital - CantonHbA1c HPLC (Bld) [Mass fraction]on 20-67-9956RmP9z (Bld) [Mass fraction]7.4 %[facility] HospitalNo Panel Informationon 06-21-2023 Bedside Bjhnlwb652GqlzfizunKettering Memorial HospitalCNPNon 09-51-6503CWYQ Telephone (UROCARMEN) CADEN WILLS ([id number]) 1960 M Date Time Provider Department 06/20/23 NOY MARY During your visit today, we recorded the following information about you: Noy Mary RN 06/20/2023 12:26 PM Signed Called Caden iWlls and [facility] to confirm surgery date of 07/[address] Alberto. Discussed pre op testing on 07/26 in [facility] [place]. 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 - omega 1-kts-oqv-fish oil (FISH OIL) 100-160-1,000 mg cap Take 1,000 mg by mouth. - bumetanide (BUMEX ORAL) Take by mouth. 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] 05/03/2023 Scarring of penis [N48.6] 05/03/2023 Erectile dysfunction associated with type 2 beverley*05/03/2023 Encounter Status:Closed by NOY MARY on 06/20/23NormalCGreene Memorial Hospital 93-52-2736NGMSGbjzxx TextNormMedina Hospital 03-72-6390WFVJInydjo Visit (CARD) CADEN WILLS ([id number]) 1960 M Date Time Provider Department 06/19/23 1:00 PM LIGIA COLMENARES [facility] During your visit today, we recorded the following information about you: Pulse Blood pressure Weight 68/minute 112/68 124.3 kg Ligia Colmenares MD 06/19/2023 1:23 PM Signed [facility] [place] Rob Borden Department of Cardiovascular Medicine SECTION [...] furniture (8.00 METs). 12/06/2022 Robyn Miller Cardiology- [facility] HPI Pleasant 62-year-old man with prior history of coronary disease status post percutaneous intervention to chronically occluded LAD in 2007. Additional history includes diabetes, hypertension and hyperlipidemia. He was admitted in December 2021 to [facility] with chest pain and diagnosed [...] 1 tablet by mouth every afternoon. omega 2-bqi-jkc-fish oil (FISH OIL) 100-160-1,000 mg cap Take [...] 05/03/2023 67 Last 3 (more content not included)...NormalSamaritan Hospital ClevelandCholesterol in LDL Calc [Mass/Vol]on 83-33-1581Nrffhfhpswa in LDL [Mass/Vol]66.0 mg/dLKettering Memorial HospitalComment on above:<100 mg/dl DPHGSHT763-518 mg/dl NEAR OR ABOVE OGRWLDN902-591 mg/dl BORDERLINE QWNN887-983 mg/dl HIGH>190 mg/dl VERY HIGHCholesterol in VLDL Calc [Mass/Vol]on 06-19-2023 Cholesterol in VLDL [Mass/Vol]43.0 mg/dLKettering Memorial HospitalECG COMPLETEon 04-08-6633Otmbwb Rate68 BPMSamaritan HospitalCalculated P Axis53 degreesSamaritan HospitalCalculated R Axis20 degreesSamaritan HospitalCalculated T Axis86 degreesSamaritan HospitalP-R Zbilmpfe692 msCleveland ClinicQRS Icnrjldv35 msCleveland ClinicQT Veazuucj947 msCleveland ClinicQTC Calculation (Bazett)440 msCleveland ClinicVentricular Rate68 BPMBrecksville VA / Crille Hospital COMPLETEVentricular Rate : 68 BPM Atrial Rate : 68 BPM P-R Interval : 188 ms QRS Duration : 88 ms Q-T Interval : 414 ms QTC Calculation(Bazett) : 440 ms Calculated P Pe Ell : 53 degrees Calculated R Pe Ell : 20 degrees Calculated T Pe Ell : 86 degrees NORMAL SINUS RHYTHM LOW VOLTAGE QRS NONSPECIFIC ST ABNORMALITY ABNORMAL ECG Confirmed by LIGIA COLMENARES M.D. ([id number]), marketing editor Lainey Agee ([id number]) on 06/19/2023 2:11:39 PM NAME : CADEN WILLS PID : [id number] : 1960 Gender : Male Race : Unknown ORD : [id number] Procedure Date : Jun 19 2023 13:03:26 Edit Date : Jun 19 2023 14:11:40 Diagnosis: NORMAL SINUS RHYTHM LOW VOLTAGE QRS NONSPECIFIC ST ABNORMALITY ABNORMAL ECG Confirmed by LIGIA COLMENARES M.D. ([id number]), marketing editor Lainey Agee ([id number]) on 06/19/2023 2:11:39 PM Test Reason : Location : 105 : [facility] Overread By : LIGIA COLMENARES M.D. Edited By : Lainey Agee Referred By : LIGIA COLMENARES Acquired by : ,[facility] Medical CenterEstimated glomerular filtration rate (GFR) non- Americanon 04-62-3656FFF/1.73 sq M.predicted among non- blacks MDRD (S/P/Bld) [Vol rate/Area]mL/min/{1.73_m2}>=60[facility] HospitalLaboratory - Chemistry and Chemistry - challengeon 06-19-2023 Calcium [Mass/Vol]8.7 mg/dL8.5-10.1FSelect Medical Specialty Hospital - Columbus SouthChloride [Moles/Vol]103 mmol/D38-347YtaakdjujKettering Memorial HospitalCholesterol [Mass/Vol]141 mg/dL<=200K[facility] Memorial HospitalCholesterol in HDL [Mass/Vol]32 mg/bA46-73BdyfmvocmKettering Memorial HospitalComment on above:> or =60 mg/dl - LOW CARDIOVASCULAR RISK<40 mg/dl - HIGH CARDIOVASCULAR RISKCO2 [Moles/Vol]29.5 mmol/L21.0-32.0K[facility] HospitalCreatinine [Mass/Vol]0.86 mg/dL0.70-1.30K[facility] HospitalGFR/1.73 sq M.predicted MDRD (S/P/Bld) [Vol rate/Area]mL/min/{1.73_m2}>=60K[facility] HospitalGlucose [Mass/Vol]143 mg/eO49-670KhdweqcabKettering Memorial Hospital Potassium [Moles/Vol]4.2 mmol/L3.5-5.1FCleveland Clinic Marymount Hospitalodium [Moles/Vol]141 mmol/B817-967PabtedwxvKettering Memorial HospitalTriglyceride [Mass/Vol]215 mg/dL<=150K[facility] Memorial HospitalUrea nitrogen [Mass/Vol]15.0 mg/dL7.0-18.0K[facility] HospitalUrea nitrogen/Creatinine [Mass ratio]17.4 mg/mgCleveland Clinic Akron General Lodi Hospitalerum or plasma anion gap determinationon 49-16-3568Zbfyy gap [Moles/Vol]12.7 mmol/L [facility] General Lodi Hospitalerum or plasma total cholesterol/high density lipoprotein (HDL) cholesterol mass evelyn 48-08-6040Pitomljjyws.total/Cholesterol in HDL [Mass ratio]4.4 {ratio}[facility] HospitalComment on above:3.3 - 4.4 LOW RISK4.4 - 7.1 AVERAGE RISK7.1 - 11.0 MODERATE RISK>11.0 HIGH RISKCNPNon 18-60-7384VFAZKjmffaxhs (UROLMN) CADEN WILLS ([id number]) 1960 M Date Time Provider Department 06/14/23 NOY MARY During your visit today, we recorded the following information about you: Noy Mary RN 06/14/2023 9:45 AM Signed Called Caden Wills and [facility]VM to confirm surgery date of 07/[address] Alberto. Discussed pre op testing on 07/26 in [facility] [place], or he could make two trips. Asked him to confirm Asked patient to confirm receipt, and voice any questions or concerns. Number provided. 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 - omega 1-tmz-hyg-fish oil (FISH OIL) 100-160-1,000 mg cap Take 1,000 mg by mouth. - bumetanide (BUMEX ORAL) Take by mouth. 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 - omega 2-vvc-idw-fish oil (FISH OIL) 100-160-1,000 mg cap Take 1,000 mg by mouth. - bumetanide (BUMEX ORAL) Take by mouth. 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 Mary'S Medical Center, Ironton CampusCNOVon 99-49-6777NWCNIrxpfm Visit (UROLMN) CADEN WILLS ([id number]) 1960 M Date Time Provider Department 05/03/23 2:00 PM JIAN ALBERTO During your visit today, we recorded the following information about you: Pulse Blood pressure Weight Height 67/minute 137/78 123.4 kg 1.778 m Jian Alberto MD 05/03/2023 2:28 PM Signed [facility] NEW PATIENT HISTORY AND PHYSICAL EXAM PATIENT INFO: Caden Wills 63 year old REFERRING M.D.: Antonia Bush MD [address] [place] [address] This consult was requested by Dr. Bush for an opinion regarding buried penis and erectile dysfunction, and my final recommendations will be communicated to the requesting health care provider by way of the shared medical record for internal providers or letter via the [employer] for external providers. 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 , interested in future sexual life. MEDICATIONS: [...] pending PVR noted ASSESSMENT/PLAN: (more content not included)...NormalSamaritan Hospital ClevelandURINALYSIS, REFLEX MICROSCOPICon 32-16-9029Kclkmizpl Ql (U)NegativeNegativeCleveland ClinicClarity (Unsp spec)ClearClearCleveland ClinicColor (U)Light YellowYellowCleFisher-Titus Medical CenterGlucose Test strip (U) [Mass/Vol]4+AbnormalTrace, NegativeSamaritan Hospital Hemoglobin Ql (U)NegativeNegative, TraceSamaritan HospitalKetones Ql (U)Negative Negative, TraceSamaritan HospitalLeukocyte esterase Test strip Ql (U)25 Quintin/uL Negative, 25 Quintin/uLCleFisher-Titus Medical CenterNitrite Ql (U)NegativeNegativeSamaritan HospitalpH (U)5.5 [pH]5.0 - 8.0Samaritan HospitalProtein (U) [Mass/Vol]Negative Trace, NegativeUniversity Hospitals Beachwood Medical Centerpecific gravity (U) [Rel density]1.997Waxz2.005 - 1.030CleFisher-Titus Medical CenterUrobilinogen Ql (U)NegativeNegativeSamaritan Hospital Bilirubin Ql (U)NegativeNormalNegativeSamaritan Hospital ClevelandComment on above:Order Comment: Specimen Type: BLOOD SPECIMEN Ordering Facility: [facility] Address: [address] [place], [place] [address]Performed By: #### [id number] #### [facility] CLIA [id number] [address] [place] [address] [place] STATES OF AMERICAClarity (Unsp spec)Clear NormalClearCCleveland Clinic Children's Hospital for RehabilitationvelandCrittenton Behavioral Health on above:Order Comment: Specimen Type: BLOOD SPECIMEN Ordering Facility: [facility] Address: [address] [place], [place] [address]Performed By: #### 88800-3 #### [facility] CLIA [id number] [address] [place] [address] [place] OF AMERICAColor (U)Light YellowNormal YellowCleMercy Health Urbana HospitalCommckenzie memorial hospital on above:Order Comment: Specimen Type: BLOOD SPECIMEN Ordering Facility: [facility] Address: [address] [place], [place] [address]Performed By: #### 52309-4 #### [facility] CLIA [id number] [address] [place] [address] [place] OF AMERICAGlucose Test strip (U) [Mass/Vol]4+AbnormalTrace, NegativeLima City Hospital on above: Order Comment: Specimen Type: BLOOD SPECIMEN Ordering Facility: [facility] Address: [address] [place], [place] [address]Performed By: #### 18843-9 #### [facility] CLIA [id number] [address] [place] [address] [place] OF AMERICAHemoglobin Ql (U)Negative NormalNegative, TraceLima City Hospital on above:Order Comment: Specimen Type: BLOOD SPECIMEN Ordering Facility: [facility] Address: [address] [place], [place] [address]Performed By: #### 31022-7 #### [facility] CLIA [id number] [address] [place] [address] [place] OF AMERICAKetones Ql (U)NegativeNormal Negative, TraceLima City Hospital on above:Order Comment: Specimen Type: BLOOD SPECIMEN Ordering Facility: [facility] Address: [address] [place], [place] [address]Performed By: #### 36835-0 #### [facility] CLIA [id number] [address] [place] [address] [place] OF AMERICALeukocyte esterase Test strip Ql (U)25 Quintin/uLNormalNegative, 25 Quintin/uLCleProtestant Hospital on above:Order Comment: Specimen Type: BLOOD SPECIMEN Ordering Facility: [facility] Address: [address] [place], [place] [address]Performed By: #### 17062-2 #### [facility] CLIA [id number] [address] [place] [address] [place] AMERICANitrite Ql (U)NegativeNormal NegativeLima City Hospital on above:Order Comment: Specimen Type: BLOOD SPECIMEN Ordering Facility: [facility] Address: [address] [place], [place] [address]Performed By: #### 03800-7 #### [facility] CLIA [id number] [address] [place] [address] [place] AMERICApH (U)5.5 [pH]Normal5.0-8.0 [facility] on above:Order Comment: Specimen Type: BLOOD SPECIMEN Ordering Facility: [facility] Address: [address] [place], [place] [address]Performed By: #### 77361-2 #### [facility] CLIA [id number] [address] [place] [address] [place] AMERICAProtein (U) [Mass/Vol] NegativeNormalTrace, NegativeLima City Hospital on above:Order Comment: Specimen Type: BLOOD SPECIMEN Ordering Facility: [facility] Address: [address] [place], [place] [address]Performed By: #### 55785-8 #### [facility] IA [id number] [address] [place] [address] [place] OF AMERICASpecific gravity (U) [Rel density]1.557Rrjp6.005-1.030[facility] on above:Order Comment: Specimen Type: BLOOD SPECIMEN Ordering Facility: [facility] Address: [address] [place], [place] [address]Performed By: #### 46949-8 #### [facility] [place] [id number] [address] [place] [address] [place] OF AMERICAUrobilinogen Ql (U)Negative NormalNegativeLima City Hospital on above:Order Comment: Specimen Type: BLOOD SPECIMEN Ordering Facility: [facility] Address: [address] [place], [place] [address]Performed By: #### 10827-2 #### [facility] [place] [id number] [address] [place] [address] [place] OF AMERICAPhysician Referralon 92-15-7394Whznhprtp [id number]#1.00TIFF NormalSt. Mary'S Medical Center, Ironton CampusPhysician Referralon 44-97-5953Drgjusgnt [id number]#1.00TIFFNormalSt. Mary'S Medical Center, Ironton CampusPhysician Referralon 31-06-9756Hfsbusihl Referral [id number]#1.00TIFFNormalLouis Stokes Cleveland VA Medical Centercreenson 23-43-5588Formekj [id number]#1.00TIFFNormRiverview Health InstituteAmbulatory Visit Summaryon 99-11-4562Bngupyyjiu Visit Summary CADEN WILLS [place] :1960 Visit Date:03/22/2023 Ambulatory Visit Instructions Your Diagnosis ED (erectile dysfunction) Phimosis Hidden penis Balanoposthitis Anticoagulated Tests Performed Urnls Dip Stick Auto w/o Microscopy POC 17564 Your Care Team Attending Physician - Antonia [...] Antonia BUSH MD, URL When: Where: [address] [place] [address]- Someone Will Contact You Regarding These Appointments [facility] External Ambulatory Referral, Urology, Dr. Alberto, 03/22/23 11:49:00 [facility] CenterPatient Educationon 03-22-2023 Patient EducationUrology Erectile Dysfunction Erectile [...] these instructions at home: Medicines ? 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 Anticoagulated (Z79.01: intermediate (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 of anticoagulants) Plavix. S/p bypass [...] seen by Dr. Jian Alberto at the [facility] for his opinion. He can utilize kiqq-ttj-jegpanv Monistat cream/triple antibiotic on a as needed [...] with voice recognition artificial intelligence software, specifically [employer], [employer] and [employer] (more content not included)...CentervilleComment on above: Result Comment: Electronically Signed By: Antonia BUSH MD\.br\Date and Time Signed: 03/22/23 12:07 EST\.br\Electronically Co-Signed By: Maria M Campos\.br\Date and Time Co-Signed: 03/22/23 11:53 ESTA1C HEMOGLOBINon 03-08-2023 HbA1c (Bld) [Mass fraction]7.2 %[employer] Other Glucose - FINGER STICKon 41-03-3275Scqrqil [Mass/Vol] 187 mg/dLNoDiamond Mind Other HbA1c (Bld) [Mass fraction]on 82-27-4201Q8Q HEMOGLOBIN [employer] Other A1C HEMOGLOBINon 46-27-8692AfB4d (Bld) [Mass fraction] 6.6 %[employer] Other Glucose - FINGER STICKon 66-36-2361Vqkweqs [Mass/Vol] 102 mg/dLNoDiamond Mind Other HbA1c (Bld) [Mass fraction]on 63-79-3265L4J HEMOGLOBIN [employer] Other a1c HEMOGLOBINon 20-26-1069MeK0o (Bld) [Mass fraction] 6.5 %[employer] Other Glucose - FINGER STICKon 65-08-4402Qrnevgj [Mass/Vol] 159 mg/dLNoDiamond Mind Other HbA1c (Bld) [Mass fraction]on 24-00-0960L6V HEMOGLOBIN [employer] Other a1c HEMOGLOBINon 52-56-1739GeR4b (Bld) [Mass fraction] 6.9 %[employer] Other Glucose - FINGER STICKon 02-72-1144Piufglf [Mass/Vol] 206 mg/dLNoDiamond Mind Other HbA1c (Bld) [Mass fraction]on 06-36-2452I2G HEMOGLOBIN [employer] Other UA RANDOMon 77-79-7175Yoxmvqsvi Ql (U)NegativeNormal NEGATIVETrinity Health System West CampusComment on above:Performed By: #### UA #### [facility] [address] [address] [address] Jose RojasCljena (U)CLOUDYAbnormalCLEARThPremier Health Miami Valley Hospital NorthComment on above:Performed By: #### UA #### [facility] [address] [address] [address] Jose Kong (U)LT. YELLOWNormalYELLOWTrinity Health System West CampusComment on above:Performed By: #### UA #### [facility] [address] [address] [address] Jose RojasGlucose Ql (U)>1000AbnormalNEGATIVETrinity Health System West CampusComment on above:Performed By: #### UA #### [facility] [address] [address] [address] Jose RojasHemoglobin Ql (U)MODERATEAbnormalNEGATIVETrinity Health System West Campus Comment on above:Performed By: #### UA #### [facility] [address] [place] [address] Dr. Jose Marinelli Ql (U)NegativeNormalNEGATIVEThe [place] [facility] Health SystemComment on above:Performed By: #### UA #### [facility] [address] [place] [address] Dr. Jose RojasLEUKOCYTESMODERATEAbnormalNEGATIVEThe [place] [facility] Health SystemComment on above:Performed By: #### UA #### [facility] [address] [place] [address] Dr. Jose Thrashertrite Ql (U)NegativeNormalNEGATIVEThe [place] [facility] Health SystemComment on above:Performed By: #### UA #### [facility] [address] [place] [address] Dr. Jose RojaspH (U)5.5 [pH]Normal5-9The [place] [facility] Health SystemComment on above: Performed By: #### UA #### [facility] [address] [place] [address] Dr. Jose RojasSPEC GRAVITY<=1.985Nybikhrp7.005-<=1.025Tr[facility] Comment on above:Performed By: #### UA #### [facility] [address] [place] [address] Dr. Jose Noel PROTEINNegativeNormalNEGATIVE/ TRACEThe [place] [facility] Comment on above:Performed By: #### UA #### [facility] [address] [place] [address] Dr. Jose Rodríguezbilinogen Qn (U)0.2 {Ritu'U}/dLNormal0.2 - 1.0The [place] State Health SystemComment on above:Performed By: #### UA #### [facility] [address] [place] [address] Dr. Jsoe Wright M/2D COMPLETEon 68-72-2299FTMUKBRLNN M/2D COMPLETE Patient: CADEN WILLS Exam Date: 03/30/2022 : 1960 Gender:M Ordering : DR SIMBA KASPER M.D. Admission #: [id number] Family : DR FAHAD Medrano.O. Order #: [id number] CLICK HERE TO VIEW EXAM ECHOCARDIOGRAM REPORT [...] by: Tomás Muniz M.D. on 03/31/2022 at 14:44Regency Hospital ToledoBNPon 30-94-3503Zfveefynqii peptide B (Bld) [Mass/Vol]335.0 pg/mLNormal <=900.0The [place] State Health SystemComment on above:Performed By: #### BNP #### [facility] [address] [place] [address] Dr. Jose Toscano AUTO DIFFon 30-65-9890APBD #0.1 103/ulNormal0.0-0.1The [place] State Health SystemComment on above:Performed By: #### DATCBC #### [facility] [address] [place] [address] Dr. Jose Rodriguezphils/100 WBC (Bld)0.7 %Normal0.2-2.0[facility] Comment on above:Performed By: #### DATCBC #### [facility] [address] [place] [address] Dr. Jose Adan #0.4 103/ulNormal0.0-0.7The [place] State Health SystemComment on above: Performed By: #### DATCBC #### [facility] [address] [place] [address] Dr. Jose Padillaosinophils/100 WBC (Bld)3.9 %Normal0.9-7.0The [facility] Comment on above:Performed By: #### DATCBC #### [facility] [address] [place] [address] Dr. Jose Padillarythrocyte distribution width (RBC) [Ratio]16.5 %Critically high 11.0-15.0The [place] State Health SystemComment on above:Performed By: #### DATCBC #### [facility] [address] [place] [address] Dr. Jose RojasHematocrit (Bld) [Volume fraction]44.9 %Gadiks78.0-54.0The [place] [facility] Health SystemComment on above:Performed By: #### DATCBC #### [facility] [address] [place] [address] Dr. Jose RojasHemoglobin (Bld) [Mass/Vol]14.3 g/eXOuypbs86.0-18.0The [place] [facility] SystemComment on above:Performed By: #### DATCBC #### [facility] [address] [place] [address] Dr. Jose Laura #0.33 10e3/ulCritically high0.00-0.03The [place] [facility] Comment on above:Performed By: #### DATCBC #### [facility] [address] [place] [address] Dr. Jose Laura %3.5 %Critically high0.0-0.5The [place] [facility] SystemComment on above:Performed By: #### DATCBC #### [facility] [address] [place] [address] Dr. Jose Lyn #1.9 103/ulNormal1.2-3.8The [place] [facility] SystemComment on above:Performed By: #### DATCBC #### [facility] [address] [place] [address] Dr. Jose Rodriguezmphocytes/100 WBC (Bld)19.8 %Critically low20.5-60.0The [place] [facility] SystemComment on above:Performed By: #### DATCBC #### [facility] [address] [place] [address] Dr. Jose EvansH (RBC) [Entitic mass]27.1 ddLadarf43.9-34.0The Shepherd HospitalComment on above:Performed By: #### DATCBC #### [facility] [address] [place] [address] Dr. Jose EvansHC (RBC) [Mass/Vol]31.8 g/pYJttqam49.9-35.2The [place] [facility] SystemComment on above:Performed By: #### DATCBC #### [facility] [address] [place] [address] Dr. Jose EvansV (RBC) [Entitic vol]85.0 xORzpxys33.0-94.0The [place] [facility] SystemComment on above:Performed By: #### DATCBC #### [facility] [address] [place] [address] Dr. Jose Hardin #0.9 103/ulCritically high0.3-0.8The [facility] Comment on above:Performed By: #### DATCBC #### [facility] [address] [place] [address] Dr. Jose Templetonocytes/100 WBC (Bld)9.1 %Normal1.7-12.0[facility] Comment on above:Performed By: #### DATCBC #### [facility] [address] [place] [address] Dr. Jose Galvan #6.0 103/ulNormal1.4-6.5The [place] [facility] SystemComment on above:Performed By: #### DATCBC #### [facility] [address] [place] [address] Dr. Jose Monroeutrophils/100 WBC (Bld)63.0 %Citnsq07.0-75.0The [place] [facility] SystemComment on above:Performed By: #### DATCBC #### [facility] [address] [place] [address] Dr. Jose Davidlet mean volume (Bld) [Entitic vol]9.2 fLCritically low 9.5-13.5The [place] [facility] SystemComment on above:Performed By: #### DATCBC #### [facility] [address] [place] [address] Dr. Jose LowT485 103/ulCritically kgnv856-781Hkq [place] [facility] SystemComment on above:Performed By: #### DATCBC #### [facility] [address] [place] [address] Dr. Jose RojasRBC5.28 106/ulNormal4.70-6.10The [place] [facility] SystemComment on above:Performed By: #### DATCBC #### [facility] [address] [place] [address] Dr. Jose RojasWBC9.6 103/ulNormal4.0-11.0The [place] [facility] SystemComment on above: Performed By: #### DATCBC #### [facility] [address] [place] [address] Dr. Jose Bowser- BMP WITH LIPIDon 45-89-6920Vbkbk gap [Moles/Vol]14.3 mmol/L NormalThe [place] State Health SystemComment on above:Performed By: #### DATBMP #### [facility] [address] [place] [address] Dr. Jose RojasCalcium [Mass/Vol]9.9 mg/dLNormal8.5-10.1The [facility] Comment on above:Performed By: #### DATBMP #### [facility] [address] [place] [address] Dr. Jose RojasChloride [Moles/Vol]101 mmol/DCnfydr38-143Dgw [facility] Comment on above:Performed By: #### DATBMP #### [facility] [address] [address] [address] Jose RojasCholesterol [Mass/Vol]110 mg/dLNormal<=200The [place] [facility] Comment on above:Performed By: #### DATBMP #### [facility] [address] [address] [address] Jose RojasCholesterol in HDL [Mass/Vol]28 mg/dLCritically ggd27-76Rvo [place] [facility] SystemComment on above:Performed By: #### DATBMP #### [facility] [address] [address] [address] Jose RojasCholesterol in LDL [Mass/Vol]21.2 mg/dLNormalThe [place] [facility] Health SystemComment on above:Performed By: #### DATBMP #### [facility] [address] [place] [address] Dr. Jose RojasCO2 [Moles/Vol]28.2 mmol/GAukaxv79.0-32.0The [facility] Comment on above:Performed By: #### DATBMP #### [facility] [address] [address] [address] Jose RojasCreatinine [Mass/Vol]1.14 mg/dLNormal0.70-1.30The [place] [facility] SystemComment on above:Performed By: #### DATBMP #### [facility] [address] [place] [address] Dr. Garcia ChangEGFR-AF MALDIVIAN>60Normal>=60The [place] [facility] SystemComment on above:Performed By: #### DATBMP #### [facility] [address] [place] [address] Dr. Garcia ChangEGFR-NON AF MALDIVIAN>60Normal>=60The [place] [facility] SystemComment on above:Performed By: #### DATBMP #### [facility] [address] [place] [address] Dr. Jose RojasGlucose [Mass/Vol]254 mg/dLCritically nuqy41-710Eze [place] [facility] SystemComment on above:Performed By: #### DATBMP #### [facility] [address] [address] [address] Jose Marrufo NORMAL> or = 60 mg/dl - LOW CARDIOVASCULAR RISK <40 mg/dl - HIGH CARDIOVASCULAR RISKRegency Hospital ToledoComment on above:Performed By: #### DATBMP #### [facility] [address] [address] [address] Jose Ricks CALC NORMALSEE BELOWRegency Hospital ToledoComment on above:Result Comment: <100 mg/dl OPTIMAL 100 - 129 mg/dl NEAR OR ABOVE OPTIMAL 130 - 159 mg/dl BORDERLINE HIGH 160 - 189 mg/dl HIGH >190 mg/dl VERY HIGH Performed By: #### DATBMP #### [facility] [address] [address] [address] Jose RojasPotassium [Moles/Vol]4.5 mmol/LNormal3.5-5.1The [facility] Comment on above:Performed By: #### DATBMP #### [facility] [address] [address] [address] Jose RojasSodium [Moles/Vol]139 mmol/MVdeesg974-633Xcs [facility] Comment on above:Performed By: #### DATBMP #### [facility] [address] [place] [address] Dr. Jose RojasTriglyceride [Mass/Vol]304 mg/dLCritically high<=150The [place] [facility] SystemComment on above:Performed By: #### DATBMP #### [facility] [address] [address] [address] Jose RojasUrea nitrogen [Mass/Vol]21.0 mg/dLCritically high7.0-18.0The [place] [facility] SystemComment on above:Performed By: #### DATBMP #### [facility] [address] [place] [address] Dr. Jose Liang nitrogen/Creatinine [Mass ratio]18.4 mg/mgNoAdena Health SystemComment on above:Performed By: #### DATBMP #### [facility] [address] [place] [address] Dr. Yilan ChangVLDL CALC60.8 mg/dLRegency Hospital ToledoComment on above: Performed By: #### DATBMP #### [facility] [address] [place], [place] [address] Dr. Jose RojasAlbumin [Mass/volume] in Serum or PlasmaOrdered By: Yamilex Foster on 80-09-9557Hqkvzir [Mass/Vol]3.5 g/dL3.2-5.5FSelect Medical Specialty Hospital [facility] South Cholesterol [Mass/volume] in Serum or PlasmaOrdered By: Yamilex Foster on 15-33-6466Ejxrtydgysy [Mass/Vol]96 mg/nX734-175KehyzqoxmK[facility] Hospital Comment on above:Chol less than 200 mg/dl low riskChol 201-239 mg/dl borderline riskChol 240 mg/dl and greater high riskCholesterol in LDL Calc [Mass/Vol] Ordered By: Yamilex Foster on 65-55-6451Bhyggucjycg in LDL [Mass/Vol]34 mg/dL0-100 [facility] HospitalComment on above:LDL ATP III CLASSIFICATIONLDL less than 100 mg/dL OptimalLDL 100-129 mg/dL Near or above aexkdncYLH696-377 mg/dL Borderline highLDL 160-189 mg/dL HighLDL greater than 189 mg/dL Very high Cholesterol in VLDL Calc [Mass/Vol]Ordered By: Yamilex Foster on 02-11-2022 Cholesterol in VLDL [Mass/Vol]28 mg/dLKettering Memorial Hospital Creatinine [Mass/volume] in UrineOrdered By: Yamilex Foster on 02-11-2022 Creatinine (U) [Mass/Vol]49.7 mg/dLKettering Memorial HospitalComment on above:No reference range establishedCreatinine and Glomerular filtration rate.predicted panel (S/P/Bld)Ordered By: Yamilex Foster on 53-08-2638Insplmgziv [Mass/Vol]0.85 mg/dL0.64-1.27[facility] HospitalEstimated glomerular filtration rate (GFR) non- AmericanOrdered By: Yamilex Foster on 56-88-7336QZB/1.73 sq M.predicted among non-blacks MDRD (S/P/Bld) [Vol rate/Area]> 60 mL/MinKettering Memorial HospitalGlobulin Calc (S) [Mass/Vol]Ordered By: Yamilex Foster on 31-38-5236Zzfoawbb (S) [Mass/Vol]3.2 g/dL [facility] HospitalLaboratory - Chemistry and Chemistry - challengeOrdered By: Yamilex Foster on 17-82-9077Fhhnrqnrm (Vitamin B12) [Mass/Vol]227 pg/fT850-123HkhwflcxlKettering Memorial HospitalNo Panel Information Ordered By: Yamilex Foster on 14-15-6366Xtaqtqiua GFR ()> 60 mL/MinKettering Memorial HospitalComment on above:GFR estimated reference range: According to KDOQI guidelines, <60 ml/min/1.73m2 is sufficient todiagnose a patient with chronic kidney disease.Pharmacy Creatinine Clearance (ChemN/A [facility] HospitalProtein [Mass/volume] in Serum or PlasmaOrdered By: Yamilex Foster on 34-99-3768Ixwjkfg [Mass/Vol]6.7 g/dL6.1-7.9[facility] Hospitalerum or plasma alanine aminotransferase measurement without P-5'-P (enzymatic activiOrdered By: Yamilex Foster on 80-18-3321XOU No additional P-5'-P [Catalytic activity/Vol]23 U/P73-63ZheqrpoyhCleveland Clinic [facility] General Lodi Hospitalerum or plasma albumin/globulin mass ratioOrdered By: Yamilex Foster on 43-18-8671Uoirsya/Globulin [Mass ratio]1.1 {ratio}[facility] Hospitalerum or plasma alkaline phosphatase measurement (enzymatic activity/volume)Ordered By: Yamilex Foster on 25-99-4185PYB [Catalytic activity/Vol]82 U/G98-51VvzczhyiuCleveland Clinic Akron General Lodi Hospitalerum or plasma anion gap determinationOrdered By: Yamilex Foster on 06-83-4720Lyhoe gap [Moles/Vol]15.4 mmol/L6.0-15.0[facility] Hospitalerum or plasma aspartate aminotransferase measurement (enzymatic activity/volume)Ordered By: Yamilex Foster on 32-18-7934SNJ [Catalytic activity/Vol]22 U/Z91-05PiqxmmlcmCleveland Clinic [facility] Hospitalerum or plasma calcium measurement (mass/volume)Ordered By: Yamilex Foster on 37-93-1662Rvyaqzh [Mass/Vol]9.7 mg/dL8.2-10.2FC[facility] Clinic Mary[facility] Hospitalerum or plasma chloride measurement (moles/volume)Ordered By: Yamilex Foster on 06-25-6602Fwncwgkl [Moles/Vol]101 mmol/X86-100RcdggfkhtCleveland Clinic [facility] Hospitalerum or plasma glucose measurement (mass/volume)Ordered By: Yamilex Foster on 31-98-8368Nqcqdia [Mass/Vol]85 mg/vV02-712CdreccrrmKettering Memorial HospitalComment on above:ADA recommended reference rangeRandom Glucose Reference Range is dependent on time and content of last meal. Glucose of more than 200 mg/dL in a nonstressed, ambulatory subject supports the diagnosisof Diabetes Mellitus.Serum or plasma high density lipoprotein (HDL) cholesterol measurementOrdered By: Yamilex Foster on 39-22-9902Lkmeworquau in HDL [Mass/Vol]34 mg/yH99-92BwbiqasojKettering Memorial HospitalComment on above:HDL CHOL ATP-III CLASSIFICATION Cardiovascular RiskHDL > or equal to 60 mg/dL LOWHDL < 40 mg/dL HIGHSerum or plasma potassium measurement (moles/volume)Ordered By: Yamilex Foster on 00-74-1710Qeozvexfr [Moles/Vol]4.2 mmol/L3.5-5.1FCleveland Clinic Marymount Hospitalerum or plasma sodium measurement (moles/volume)Ordered By: Yamilex Foster on 42-10-9626Vrqbeu [Moles/Vol]138 mmol/S763-570JybgyzgymCleveland Clinic [facility] Hospitalerum or plasma total bilirubin measurement (mass/volume)Ordered By: Yamilex Foster on 93-52-4864Ffjsmnjep [Mass/Vol]0.7 mg/dL0.3-1.2FCleveland Clinic Marymount Hospitalerum or plasma total carbon dioxide measurement (moles/volume) Ordered By: Yamilex Foster on 60-40-3691SU8 [Moles/Vol]25.8 mmol/L22.0-30.0 [facility] Hospitalerum or plasma total cholesterol/high density lipoprotein (HDL) cholesterol mass ratOrdered By: Yamilex Foster on 02-11-2022 Cholesterol.total/Cholesterol in HDL [Mass ratio]2.8 {ratio}<5.0[facility] Hospitalerum or plasma urea nitrogen measurement (mass/volume) Ordered By: Yamilex Foster on 54-77-4034Lpvm nitrogen [Mass/Vol]16 mg/dL9-23 [facility] HospitalTriglyceride [Mass/volume] in Serum or Plasma Ordered By: Yamilex Foster on 99-98-5409Pyphjcqsstvz [Mass/Vol]140 mg/lA38-630 [facility] HospitalComment on above:TRIG ATP III CLASSIFICATIONTRIG less than 150 mg/dL NormalTRIG 150-199 mg/dL Borderline highTRIG 200-500 mg/dL High TRIG greater than 500 mg/dL Very highStandard traceable to the Center for Disease Conrtrol and Prevention (CDC) test method. Urine microalbumin measurement with detection limit of 20 mg/L or less (mass/volume)Ordered By: Yamilex Foster on 67-90-6122Uhhweix DL <= 20 mg/L (U) [Mass/Vol]3.4 mg/dL0.0-1.8[facility] HospitalUrine microalbumin/creatinine mass ratioOrdered By: [facility]del[facility] on 02-11-2022 Albumin/Creatinine DL <= 20 mg/L (U) [Mass ratio]68.0 mg/g0.0-30.0[facility] HospitalComment on above:30-300 mg/g indicates an increased risk for diabetic nephropathy. Greater than 300 mg/g is consistent with clinical nephropathy. (Am. J. Kidney Disease 1994, 25:107)BNPon 70-63-8246Dxeliqkenfi peptide B (Bld) [Mass/Vol]229.0 pg/mLNormal<=900.0The [place] [facility] SystemComment on above:Performed By: #### BNP #### [facility] [address] [place] [address] [address] [address] Jose Toscano AUTO DIFFon 20-15-9150TREZ #0.1 103/ulNormal0.0-0.1The [place] [facility] SystemComment on above:Performed By: #### DATCBC #### [facility] [address] [address] [address] Jose RojasBasophils/100 WBC (Bld)0.5 %Normal0.2-2.0The [facility] Comment on above:Performed By: #### DATCBC #### [facility] [address] [place] [address] Dr. Jose Adan #0.1 103/ulNormal0.0-0.7The [place] [facility] SystemComment on above: Performed By: #### DATCBC #### [facility] [address] [place] [address] Dr. Jose Padillaosinophils/100 WBC (Bld)1.0 %Normal0.9-7.0The [facility] Comment on above:Performed By: #### DATCBC #### [facility] [address] [place] [address] Dr. Jose Padillarythrocyte distribution width (RBC) [Ratio]15.1 %Critically high 11.0-15.0The [place] [facility] Health SystemComment on above:Performed By: #### DATCBC #### [facility] [address] [place] [address] Dr. Jose RojasHematocrit (Bld) [Volume fraction]49.2 %Lliswl86.0-54.0The [place] [facility] Health SystemComment on above:Performed By: #### DATCBC #### [facility] [address] [place] [address] Dr. Jose RojasHemoglobin (Bld) [Mass/Vol]16.1 g/cJQrzltf94.0-18.0The [place] [facility] SystemComment on above:Performed By: #### DATCBC #### [facility] [address] [place] [address] Dr. Jose Laura #0.07 10e3/ulCritically high0.00-0.03The [facility] Comment on above:Performed By: #### DATCBC #### [facility] [address] [place] [address] Dr. Jose Laura %0.7 %Critically high0.0-0.5The [place] [facility] SystemComment on above:Performed By: #### DATCBC #### [facility] [address] [place] [address] Dr. Jose Lyn #2.1 103/ulNormal1.2-3.8The [place] [facility] SystemComment on above:Performed By: #### DATCBC #### [facility] [address] [place] [address] Dr. Jose Hdezhocytes/100 WBC (Bld)22.2 %Jdfrdd97.5-60.0The [place] [facility] SystemComment on above:Performed By: #### DATCBC #### [facility] [address] [place] [address] Dr. Jose Mills DIFF REQNONormalThe [place] [facility] SystemComment on above: Performed By: #### DATCBC #### [facility] [address] [place] [address] Dr. Jose Mondragon (RBC) [Entitic mass]28.0 ouFpxcxl22.9-34.0The [place] [facility] SystemComment on above:Performed By: #### DATCBC #### [facility] [address] [place] [address] Dr. Jose Evans (RBC) [Mass/Vol]32.7 g/tRMxjhaj85.9-35.2The [place] [facility] SystemComment on above:Performed By: #### DATCBC #### [facility] [address] [place] [address] Dr. Jose Graves (RBC) [Entitic vol]85.6 xCOaixtt06.0-94.0The [place] [facility] SystemComment on above:Performed By: #### DATCBC #### [facility] [address] [place] [address] Dr. Jose Hardin #1.0 103/ulCritically high0.3-0.8The [facility] Comment on above:Performed By: #### DATCBC #### [facility] [address] [place] [address] Dr. Jose Templetonocytes/100 WBC (Bld)10.2 %Normal1.7-12.0The [facility] Comment on above:Performed By: #### DATCBC #### [facility] [address] [place] [address] Dr. Jose MonroeUT #6.3 103/ulNormal1.4-6.5The [place] [facility] SystemComment on above:Performed By: #### DATCBC #### [facility] [address] [place] [address] Dr. Jose Monroeutrophils/100 WBC (Bld)65.4 %Hvjvih90.0-75.0The [place] [facility] SystemComment on above:Performed By: #### DATCBC #### [facility] [address] [place] [address] Dr. Jose RojasPlatelet mean volume (Bld) [Entitic vol]9.4 fLCritically low 9.5-13.5The [place] [facility] SystemComment on above:Performed By: #### DATCBC #### [facility] [address] [place] [address] Dr. Jose RojasPLT353 103/tdQlwhwa968-254Ukw [place] [facility] SystemComment on above: Performed By: #### DATCBC #### [facility] [address] [place] [address] Dr. Jose RojasRBC5.75 106/ulNormal4.70-6.10The [place] [facility] SystemComment on above:Performed By: #### DATCBC #### [facility] [address] [place] [address] Dr. Jose RojasWBC9.6 103/ulNormal4.0-11.0The [place] [facility] SystemComment on above: Performed By: #### DATCBC #### [facility] [address] [place] [address] Dr. Jose Chovid-19 PCR (CVDTB)on 69-21-4100RXNB-CoV-2 (COVID-19) RNA PRASHANT+probe Ql (Unsp spec)Not detectedNormalNOT DETECTEDThe [facility] Comment on above:Result Comment: When diagnostic testing [...] for this test is supported by the Decorating Consultant of Health and Human Service's declaration that [...] longer be used).Performed By: #### CVDTB #### [facility] [address] [place] [address] Dr. Jose RojasPROF CHEM 8 (BAS METB)on 02-94-6884Sfmuk gap [Moles/Vol]14.0 mmol/LNormalTrinity Health System West CampusComment on above:Performed By: #### BRYN BMP #### [facility] [address] [place] [address] Dr. Jose RojasCalcium [Mass/Vol]9.5 mg/dLNormal8.5-10.1[facility] Comment on above:Performed By: #### BRYN, BMP #### [facility] [address] [place] [address] Dr. Jose RojasChloride [Moles/Vol]100 mmol/RFtufzy35-872LfsTrinity Health System [facility] Campus Comment on above:Performed By: #### BRYN BMP #### [facility] [address] [place] [address] Dr. Jose RojasCO2 [Moles/Vol]26.9 mmol/RUggdra22.0-32.0[facility] Comment on above:Performed By: #### ANDRESTRJAVED, BMP #### [facility] [address] [place], [place] [address] Dr. Jose RojasCreatinine [Mass/Vol]1.06 mg/dLNormal0.70-1.30The [place] [facility] SystemComment on above:Performed By: #### HSTROPN, BMP #### [facility] [address] [address] [address] Jose PadillaGFR-AF MALDIVIAN>60Normal>=60The [place] [facility] SystemComment on above:Performed By: #### HSTROPN, BMP #### [facility] [address] [address] [address] Jose PadillaGFR-NON AF MALDIVIAN>60Normal>=60The [place] [facility] SystemComment on above:Performed By: #### HSTROPN, BMP #### [facility] [address] [place] [address] Dr. Jose RojasGlucose [Mass/Vol]152 mg/dLCritically dbqc84-142Mim [place] [facility] SystemComment on above:Performed By: #### HSTROPN, BMP #### [facility] [address] [address] [address] Jose RojasPotassium [Moles/Vol]3.9 mmol/LNormal3.5-5.1[facility] Comment on above:Performed By: #### HSTROPN, BMP #### [facility] [address] [place] [address] Dr. Jose RojasSodium [Moles/Vol]137 mmol/VYhetsi490-515Uau [facility] Comment on above:Performed By: #### HSTROPN, BMP #### [facility] [address] [address] [address] Jose RojasUrea nitrogen [Mass/Vol]19.0 mg/dLCritically high7.0-18.0The [place] [facility] SystemComment on above:Performed By: #### HSTROPN, BMP #### [facility] [address] [address] [address] Jose RojasUrea nitrogen/Creatinine [Mass ratio]17.9 mg/mgNormalThe [place] [facility] SystemComment on above:Performed By: #### HSTROPN, BMP #### [facility] [address] [place], [place] [address] Dr. Jose Rosas, [facility] SENSITIVITYon 29-50-4814TNTJAS6388.5 pg/mL Critically high4.0-76.1[facility] CampusComment on above:Result Comment: CUT-OFF POINTS HAVE BEEN ESTABLISHED BASED ON THE FOURTH UNIVERSAL DEFINITIONS OF MYOCARDIAL INFARCTION. THE UPPER REFERENCE LIMIT (URL) OF TROPONIN, DEFINED THE 99TH PERCENTILE OF cTnI DISTRIBUTION IN A REFERENCE POPULATION, HAS BEEN CONFIRMED THE DECISION THRESHOLD FOR NM DIAGNOSIS.Performed By: #### HSTROPN #### [facility] [address] [address] [address] Jose RojasHSTROP142.5 pg/mLCritically high4.0-76.1[facility] Comment on above:Result Comment: CUT-OFF POINTS HAVE BEEN ESTABLISHED BASED ON THE FOURTH UNIVERSAL DEFINITIONS OF MYOCARDIAL INFARCTION. THE UPPER REFERENCE LIMIT (URL) OF TROPONIN, DEFINED THE 99TH PERCENTILE OF cTnI DISTRIBUTION IN A REFERENCE POPULATION, HAS BEEN CONFIRMED THE DECISION THRESHOLD FOR NM DIAGNOSIS.Performed By: #### HSTROPN, BMP #### [facility] [address] [place] [address] Dr. Jose RojasXR CHEST 1 Von [id number] CHEST 1 VEXAMINATION: XR CHEST 1 V [...] Electronically authenticated by: STORM CONDE Date: 2021-12-31 13:[address] [place], [place] [address]XR LSPINE 2_3 VIEWSon 26-48-5269ZO LSPINE 2_3 VIEWSEXAMINATION: XR LSPINE 2_3 VIEWS [...] Electronically authenticated by: HEAVENLY LOUIS Date: 2021-10-31 08:66 [address] [place], [place] [address]A1C HEMOGLOBINon 44-00-1818KyR6p (Bld) [Mass fraction]7.5 % [employer] Other Glucose - FINGER STICKon 27-35-1904Nyewlyq [Mass/Vol] 107 mg/dLSarasota Downtown Other HbA1c (Bld) [Mass fraction]on 16-99-6970C0Z HEMOGLOBIN [facility] Other Urinalysis - AUTOMATEDon 03-11-1524Bhkuiqjsvp (U) cloudyNray [facility] Other Bilirubin Ql (U)NegativeKONUX [facility] Other Color (U)yellowKONUX [facility] Other Glucose Ql (U)500[place] Other Hemoglobin Ql (U)moderateKONUX [place] Other Ketones Ql (U)NegativeKONUX [place] Other Leukocyte esterase Test strip Ql (U)moderateDiamond Mind Other Nitrite Ql (U)PositiveKONUX [place] Other pH (U)6.0 [pH][facility] Other Protein Ql (U)traceDiamond Mind Other Specific gravity (U) [Rel density]1.025[facility] Other Urobilinogen (U) [Mass/Vol]0.2 mg/dLSarasota Downtown Other Urinalysis - AUTOMATEDNosaint [facility] Other Urine Cultureon 40-43-5666Tfperklo identified Cx Nom (U)[facility] Other A1C HEMOGLOBINon 16-73-2640HqP3y (Bld) [Mass fraction] 7.4 %[facility] Other Glucose - FINGER STICKon 20-01-4094Pzwvczi [Mass/Vol] 168 mg/dLSarasota Downtown Other HbA1c (Bld) [Mass fraction]on 73-56-8003X6V HEMOGLOBIN [facility] Other a1c HEMOGLOBINon 01-54-6857OjU3g (Bld) [Mass fraction] 6.6 %[facility] Other Glucose - FINGER STICKon 08-98-6826Amcljuw [Mass/Vol] 171 mg/dLNoKONUX [place] Other HbA1c (Bld) [Mass fraction]on 38-06-1044I4T HEMOGLOBIN [employer] Other Vital Signs Date TimeVital SignValuePerforming TxlzbjwjjBnitomrl87-39-8882 08:57-0400Body .8 cmBenjamin Ball DO Work Phone: [facility]10-27-2025 08:57-0400 Body mass index (BMI) [Ratio]39.3 kg/k4Hozcgmzn Ball DO Work Phone: [facility]10-27-2025 08:57-0400 Body ohptqj675.28 kgBenjamin Ball DO Work Phone: [facility]10-21-2025 09:16-0400 Body khivvt627.8 cmBenjamin Ball DO Work Phone: 1(419)[address] [place], [place] 7412910-21-2025 09:16-0400 Body mass index (BMI) [Ratio]37.6 kg/n8Miurirpa Ball DO Work Phone: 1(419)[address] [place], [place] 7412910-21-2025 09:16-0400 Body tlmaoe235.03 kgBenjamin Ball DO Work Phone: 1(419)[address] [place], [place] 7412910-21-2025 09:16-0400 Diastolic blood mm[Hg]Fahad Ball DO Work Phone: 1(419)[address] [place], [place] 7412910-21-2025 09:16-0400 Heart rate68 /minBenjamin Ball DO Work Phone: 1(419)[address] [place], [place] 7412910-21-2025 09:16-0400 Respiratory rate12 /minBenjamin Ball DO Work Phone: 1(419)[address] [place], [place] 7412910-21-2025 09:16-0400 Systolic blood hpmqpmui688 mm[Hg]Fahad Ball DO Work Phone: 1(419)[address] [place], [place] 7412908-13-2025 16:05-0400 Body oadxlf622.8 cmBenjamin Ball DO Work Phone: 1(419)[address] [place], [place] 7412908-13-2025 16:05-0400 Body mass index (BMI) [Ratio]37.7 kg/u9Xkomtsqj Ball DO Work Phone: 1(419)[address] [place], [place] 7412908-13-2025 16:05-0400 Body .2 kgBenjamin Ball DO Work Phone: 1(419)[address] [place], [place] 7412908-13-2025 16:05-0400 Diastolic blood mm[Hg]Fahad Ball DO Work Phone: 1(419)[address] [place], [place] 7412908-13-2025 16:05-0400 Heart rate70 /minBenjamin Ball DO Work Phone: 1(419)[address] [place], [place] 7412908-13-2025 16:05-0400 Respiratory rate18 /minBenjamin Ball DO Work Phone: [phone]08-13-2025 16:05-0400 SaO2% (BldA) [Mass fraction]96 %Fahad Ball DO Work Phone: 1(230)648-[address] [place], [place] 2900908-13-2025 16:05-0400 Systolic blood ifvprfxd785 mm[Hg]Afhad Ball DO Work Phone: 1(939)818-[address] [place], [place] 2900907-09-2025 15:49-0400 Body .8 cmBenjamin Ball DO Work Phone: 1(374)[facility] [place], [place] 2900907-09-2025 15:49-0400 Body mass index (BMI) [Ratio]38.3 kg/w9Iiaazwao Ball DO Work Phone: 1(392)[address] [place], [place] 7412907-09-2025 15:49-0400 Body nkagvg861.27 kgBenjamin Ball DO Work Phone: 1(295)[facility] [place], [place] 2900907-09-2025 15:49-0400 Diastolic blood dumrxoxg04 mm[Hg]Fahad Ball DO Work Phone: 1(876)288-[address] [place], [place] 2900907-09-2025 15:49-0400 Heart rate73 /minBenjamin Ball DO Work Phone: 1(163)[facility] [place], [place] 2900907-09-2025 15:49-0400 Respiratory rate12 /minBenjamin Ball DO Work Phone: 1(442)[facility] [place], [place] 2900907-09-2025 15:49-0400 Systolic blood cxqwyffi024 mm[Hg]Fahad Ball DO Work Phone: 1(825)[facility] [place], [place] 2900905-07-2025 16:14-0400 Body ofxqsd252.8 cmK[facility]05-07-2025 16:14-0400Body mass index (BMI) [Ratio]38.2 kg/j5NzvpchbtkKettering [facility] Hospital05-07-2025 16:14-0400Body .7 kgK[facility]05-07-2025 16:14-0400Diastolic blood aecdppvo60 mm[Hg][facility] 08-21-2024 16:14-0400Heart rate73 /[facility] 08-21-2024 16:14-0400Respiratory rate18 /[facility] 08-21-2024 16:14-3843UdX1% (BldA) [Mass fraction]94 %[facility]05-07-2025 16:14-0400Systolic blood qntayzak723 mm[Hg][facility]01-29-2025 16:05-0500Body acwbyn723.8 cmK[facility]01-29-2025 16:05-0500Body mass index (BMI) [Ratio]38.7 kg/l7TclamobdjK[facility]tering [facility] Hospital01-29-2025 16:05-0500Body rhforo386.24 kgK[facility] Hospital01-29-2025 16:05-0500Diastolic blood tqlwamup90 mm[Hg] [facility]01-29-2025 16:05-0500Heart rate70 /[facility]01-29-2025 16:05-0500Respiratory rate18 /[facility]01-29-2025 16:05-2462CdO1% (BldA) [Mass fraction]95 % [facility]01-29-2025 16:05-0500Systolic blood exhkgdun896 mm[Hg][facility]01-07-2025 15:52-0500Body .8 cm [facility]01-07-2025 15:52-0500Body mass index (BMI) [Ratio]39.8 kg/h1WtrhvevvfKettering Memorial Hospital01-07-2025 15:52-0500Body ykyfbv994.81 kgK[facility] Hospital01-07-2025 15:52-0500Diastolic blood eimozchy10 mm[Hg][facility]01-07-2025 15:52-0500 Heart rate76 /[facility]01-07-2025 15:52-0500 Respiratory rate12 /[facility]01-07-2025 15:52-0500 Systolic blood zyasozzb743 mm[Hg][facility]10-23-2024 16:30-0400Body fazera481.8 cmK[facility] Hospital10-23-2024 16:30-0400Body mass index (BMI) [Ratio]38.5 kg/b3YhuekilxrKettering Memorial Hospital10-23-2024 16:30-0400Body vlcaaf200.78 kgK[facility] 02-07-2024 16:30-0400Diastolic blood sxjijant13 mm[Hg][facility]10-23-2024 16:30-0400Heart rate74 /[facility] 02-07-2024 16:30-0400Respiratory rate18 /[facility] 02-07-2024 16:30-0900WxJ3% (BldA) [Mass fraction]97 %[facility]10-23-2024 16:30-0400Systolic blood xsersbie001 mm[Hg][facility]07-17-2024 16:16-0400Body mudapj275.8 cmK[facility]07-17-2024 16:16-0400Body mass index (BMI) [Ratio]39.2 kg/u9RbgedblinKettering Memorial Hospital07-17-2024 16:16-0400Body mxhaec577.83 [facility]07-17-2024 16:16-0400Diastolic blood eafzligu99 mm[Hg] [facility]07-17-2024 16:16-0400Respiratory rate16 /min [facility]07-17-2024 16:16-7009GwN3% (BldA) [Mass fraction]93 %[facility]07-17-2024 16:16-0400Systolic blood rpmhazqx725 mm[Hg][facility]07-03-2024 15:43-0400 Body izxbyp683.8 cmK[facility] Hospital07-03-2024 15:43-0400Body mass index (BMI) [Ratio]39.2 kg/u9AtwogzykcKettering Memorial Hospital07-03-2024 15:43-0400Body .94 kgK[facility]07-03-2024 15:43-0400Diastolic blood gmssyjch74 mm[Hg][facility] 10-18-2023 15:43-0400Heart rate77 /[facility] 10-18-2023 15:43-0400Respiratory rate12 /[facility] 10-18-2023 15:43-0400Systolic blood rowstdxj681 mm[Hg][facility]05-29-2024 13:15-0400Body mass index (BMI) [Ratio]39.86 kg/r5CgnbzslJian Alberto MD Work Phone: c[facility] HospitalMwnhqb40-44-2421 13:15-0400Body hnhabj245 kg Jian Alberto MD Work Phone: cMi[facility] HospitalNiynbt50-33-8179 13:15-0400Diastolic blood qhxazato93 mm[Hg]Jian Alberto MD Work Phone: cMi[facility] HospitalJtmsef63-69-0542 13:15-0400Heart rate72 /min Jian Alberto MD Work Phone: c[facility] HospitalNbhusg48-16-1409 13:15-0400Systolic blood rvewsklc528 mm[Hg]Jian Alberto MD Work Phone: cMi[facility] HospitalCstdca77-32-2187 13:51-0400Body hltoke817.8 cmGiovanni Mulligan MD Work Phone: [facility]04-19-2024 13:51-0400Body ijmtyf610.29 kgGiovanni Mulligan MD Work Phone: [facility]04-11-2024 12:44-0400Respiratory rate 18 /minPacc 6 Work Phone: [facility]03-26-2024 15:26-0400Body tmwibf109.8 cmK[facility]03-26-2024 15:26-0400Body mass index (BMI) [Ratio]39.4 kg/p2SbpdgcdlkK[facility] Hospital03-26-2024 15:26-0400Body nmddxa447.73 kgK[facility] Hospital03-26-2024 15:26-0400Diastolic blood mm[Hg][facility]03-26-2024 15:26-0400 Heart rate73 /[facility]03-26-2024 15:26-0400Systolic blood mm[Hg][facility]03-06-2024 16:14-0500 Body .8 cmK[facility]03-06-2024 16:14-0500Body mass index (BMI) [Ratio]39.4 kg/l4PcmzgkzarK[facility]tering [facility] Hospital03-06-2024 16:14-0500Body yiyuqg289.73 kgK[facility]03-06-2024 16:14-0500Diastolic blood dodlcghh99 mm[Hg][facility] 06-21-2023 16:14-0500Heart rate70 /[facility] 06-21-2023 16:14-0500Respiratory rate18 /[facility] 06-21-2023 16:14-4818BaG6% (BldA) [Mass fraction]95 %[facility]03-06-2024 16:14-0500Systolic blood xsnvatoh022 mm[Hg][facility]03-04-2024 13:05-0500Body bxsipa047.29 kgLigia Colmenares MD Work Phone: [facility]03-04-2024 13:05-0500Diastolic blood npgnbjon41 mm[Hg]Ligia Colmenares MD Work Phone: [facility]03-04-2024 13:05-0500Heart rate68 /min Ligia Colmenares MD Work Phone: [facility]03-04-2024 13:05-0500Systolic blood yfpyehnn545 mm[Hg]Ligia Colmenares MD Work Phone: [facility]01-03-2024 15:30-0500Body yhzrsu917.8 cmBenjamin Ball Other [facility]01-03-2024 15:30-0500 Body mass index (BMI) [Ratio]39.91 kg/n3Oyvyxrcn Ball Other [facility] Other 01-03-2024 15:30-0500Body ukjtcp076.19 kgBenjorge Aceves Other [facility] Other 01-03-2024 15:30-0500Body .18 kgDO Fahad Aceves Work Phone: [facility]01-03-2024 15:30-0500 Diastolic blood ljehoaia12 mm[Hg]Fahad Aceves Other [facility]01-03-2024 15:30-0500 Respiratory rate16 /minBenjorge Aceves Other [facility] Other 01-03-2024 15:30-0500Systolic blood wiwjekzw610 mm[Hg] Fahad Aceves Other [facility]12-06-2023 11:46-0500 Blood Pressure LocationAntonia Familytic [facility] [place] 833532-06-2023 11:46-0500Diastolic blood zreqktzc64 mm[Hg]Antonia Familytic [facility] [place] 833532-06-2023 11:46-0500Heart rate69 /minAntonia Familytic [facility] [place] 833532-06-2023 11:46-0500Systolic blood mm[Hg]Antonia Familytic [facility] 833531-22-2023 16:15-0500Body jtpjcu140.8 cmTondra Mapus Other [facility]11-22-2023 16:15-0500 Body mass index (BMI) [Ratio]39.65 kg/b6Ycfzrs [facility] Other [facility] [place] Other 11-22-2023 16:15-0500Body mwooet681.38 kgTondra Mapus Other [facility] Other 11-22-2023 16:15-0500Body axdgoq914.37 kgDO Fahad Ball Work Phone: [facility]11-22-2023 16:15-0500 Diastolic blood qnqykada10 mm[Hg]Tondra Mapus Other [facility]11-22-2023 16:15-0500 Respiratory rate18 /minTondra Mapus Other LegalGurusaint [facility] Other 11-22-2023 16:15-1438ZwI4% (BldA) [Mass fraction]96 % Tondra Mapus Other LegalGurusaint [facility] Other 11-22-2023 16:15-0500Systolic blood cvoiulrj527 mm[Hg] Tondra Mapus Other [facility]10-06-2023 14:45-0400 Body ezindw820.8 cmBenjamin Ball Other [facility] Other 10-06-2023 14:45-0400Body mass index (BMI) [Ratio] 39.17 kg/e8Nhnumomm Ball Other [facility] Other 10-06-2023 14:45-0400Body cpykjm066.83 kgBenjamin Ball Other [facility] Other 10-06-2023 14:45-0400Diastolic blood upnztsvo00 mm[Hg] Fahad Ball Other [facility] Other 10-06-2023 14:45-0400Respiratory rate18 /minBenjamin Ball Other [facility] Other 10-06-2023 14:45-0400Systolic blood nljezkab884 mm[Hg] Fahad Aceves Other [facility] Other 08-10-2023 15:30-0400Body jtbiul844.8 cmTondra Mapus Other [facility] Other 08-10-2023 15:30-0400Body mass index (BMI) [Ratio] 39.22 kg/v2Pajesc Mapus Other [facility] Other 08-10-2023 15:30-0400Body .01 kgTondra Mapus Other [facility] Other 08-10-2023 15:30-0400Diastolic blood bermwikb81 mm[Hg] Tondra Mapus Other [facility] Other 08-10-2023 15:30-0400Respiratory rate18 /minTondra Mapus Other [facility] Other 08-10-2023 15:30-4498OiO0% (BldA) [Mass fraction]95 % Tondra Mapus Other [facility] Other 08-10-2023 15:30-0400Systolic blood oroyaoft893 mm[Hg] Tondra Mapus Other [facility] Other 07-03-2023 15:30-0400Body klbpoy681.8 cmBenjamin Ball Other [facility] Other 07-03-2023 15:30-0400Body mass index (BMI) [Ratio]39.6 kg/k1Jwfwlwjp Ball Other [facility] Other 07-03-2023 15:30-0400Body .19 kgBenjamin Ball Other [facility] Other 07-03-2023 15:30-0400Diastolic blood rqmyqmaw18 mm[Hg] Fahad Ball Other [facility] Other 07-03-2023 15:30-0400Respiratory rate16 /minBenjamin Ball Other [facility] Other 07-03-2023 15:30-0400Systolic blood pkstdwej018 mm[Hg] Fahad Ball Other [facility] Other 05-08-2023 16:30-0400Body .8 cmTondra Mapus Other [facility] Other 05-08-2023 16:30-0400Body mass index (BMI) [Ratio] 39.93 kg/l6Nduxpt [facility] Other [facility] Other 05-08-2023 16:30-0400Body zboqol203.24 kgTondra Mapus Other [facility] Other 05-08-2023 16:30-0400Diastolic blood ycmpmwtd77 mm[Hg] Tondra Mapus Other [facility] Other 05-08-2023 16:30-0400Respiratory rate18 /minTondra Mapus Other [facility] Other 05-08-2023 16:30-4387YuM1% (BldA) [Mass fraction]94 % Tondra Mapus Other [facility] Other 05-08-2023 16:30-0400Systolic blood bxehopgm136 mm[Hg] Tondra Mapus Other [facility] Other 04-03-2023 16:30-0400Body .8 cmBenjamin Ball Other [facility] Other 04-03-2023 16:30-0400Body mass index (BMI) [Ratio]40.2 kg/a6Fkefqssv Ball Other [facility] Other 04-03-2023 16:30-0400Body yduvux312.1 kgBenjamin Ball Other [facility] Other 04-03-2023 16:30-0400Diastolic blood lhylaezz82 mm[Hg] Fahad Ball Other [facility] Other 04-03-2023 16:30-0400Respiratory rate16 /minBenjamin Ball Other [facility] Other 04-03-2023 16:30-0400Systolic blood tdcfissp745 mm[Hg] Fahad Ball Other [facility] Other 02-02-2023 16:15-0500Body roqirn177.8 cmTondra Mapus Other [facility] Other 02-02-2023 16:15-0500Body mass index (BMI) [Ratio] 40.79 kg/t6Mjwisk [employer] Other [facility] Other 02-02-2023 16:15-0500Body gpmegg009.96 kgTondra Mapus Other [facility] Other 02-02-2023 16:15-0500Diastolic blood asucojrt75 mm[Hg] Tondra Mapus Other [facility] Other 02-02-2023 16:15-0500Respiratory rate18 /minTondra Mapus Other [facility] Other 02-02-2023 16:15-6508ZyD1% (BldA) [Mass fraction]93 % Tondra Mapus Other [facility] Other 02-02-2023 16:15-0500Systolic blood zzvtwjep977 mm[Hg] Tondra Mapus Other [facility] Other 01-18-2023 16:30-0500Body ygbrze566.8 cmBenjamin Ball Other [facility] Other 01-18-2023 16:30-0500Body mass index (BMI) [Ratio] 41.23 kg/a7Hkywwqat Ball Other [facility] Other 01-18-2023 16:30-0500Body djudqy946.36 kgBenjamin Ball Other [facility] Other 01-18-2023 16:30-0500Diastolic blood jzhafgtz44 mm[Hg] Fahad Ball Other [facility] Other 01-18-2023 16:30-0500Respiratory rate20 /minBenjamin Ball Other [facility] Other 01-18-2023 16:30-0500Systolic blood mm[Hg] Fahad Ball Other [facility] Other 07-07-2022 14:45-0400Body .8 cmTondra Mapus Other [facility] Other 07-07-2022 14:45-0400Body mass index (BMI) [Ratio] 40.31 kg/i2Biftmo Mapus Other [facility] Other 07-07-2022 14:45-0400Body nmurvy416.46 kgTondra Mapus Other [facility] Other 07-07-2022 14:45-0400Diastolic blood cbubdhys66 mm[Hg] Tondra Mapus Other [facility] Other 07-07-2022 14:45-0400Respiratory rate20 /minTondra Mapus Other [facility] Other 07-07-2022 14:45-0067ToY3% (BldA) [Mass fraction]96 % Tondra Mapus Other [facility] Other 07-07-2022 14:45-0400Systolic blood kcnegumy900 mm[Hg] Yamilex Foster Other [facility] Other 04-27-2022 15:15-0400Body avznga940.8 cmPdang Greene Other [facility] Other 04-27-2022 15:15-0400Body mass index (BMI) [Ratio] 38.74 kg/q1Rigycwyisel Greene Other [facility] Other 04-27-2022 15:15-0400Body asykvuhfgza32.2 [degF]Celestina Ramona Other [facility] Other 04-27-2022 15:15-0400Body iyjzrn572.47 kgPayisel Greene Other [facility] Other 04-27-2022 15:15-0400Diastolic blood dmcaonmn90 mm[Hg] Celestina Ramona Other [facility] Other 04-27-2022 15:15-0400Respiratory rate18 /minPayisel Ramona Other [facility] Other 04-27-2022 15:15-3453NuN9% (BldA) [Mass fraction]99 % Celestina Ramona Other [facility] Other 04-27-2022 15:15-0400Systolic blood ahniirna081 mm[Hg] Celestinajcarlos Greene Other [facility] Other 03-15-2022 15:30-0400Body cjxsek155.8 cmTondra Mapus Other [facility] Other 03-15-2022 15:30-0400Body mass index (BMI) [Ratio] 40.89 kg/f6Ztedbf [facility] Other [facility] Other 03-15-2022 15:30-0400Body syjysx699.28 kgTondra Mapus Other [facility] Other 03-15-2022 15:30-0400Diastolic blood vtaiowau00 mm[Hg] Tondra Mapus Other [facility] Other 03-15-2022 15:30-0400Respiratory rate20 /minTondra Mapus Other [facility] Other 03-15-2022 15:30-5431XtS9% (BldA) [Mass fraction]95 % Tondra Mapus Other [facility] Other 03-15-2022 15:30-0400Systolic blood hwfamdqo796 mm[Hg] Tondra Mapus Other [facility] Other 12-08-2021 16:15-0500Body vgbkeu871.8 cmTondra Mapus Other [facility] Other 12-08-2021 16:15-0500Body mass index (BMI) [Ratio] 40.89 kg/d8Haxfnr Mapus Other [facility] Other 12-08-2021 16:15-0500Body fmuihp761.28 kgTondra Mapus Other [facility] Other 12-08-2021 16:15-0500Diastolic blood mhfyohlr68 mm[Hg] Tondra Mapus Other [facility] Other 12-08-2021 16:15-0500Respiratory rate20 /minTondra Mapus Other [facility] Other 12-08-2021 16:15-7235AdY6% (BldA) [Mass fraction]97 % Tondra Mapus Other [facility] Other 12-08-2021 16:15-0500Systolic blood mivlxmac778 mm[Hg] Tondra Mapus Other [facility] Other 09-22-2021 15:00-0400Body zuvimw605.8 cmTondra Mapus Other [facility] Other 09-22-2021 15:00-0400Body mass index (BMI) [Ratio] 39.81 kg/f2Gtbhbe Mapus Other [facility] Other 09-22-2021 15:00-0400Body desuwn232.87 kgTondra Mapus Other [facility] Other Encounters Encounter DateEncounter TypeCare ProviderFacilityStart: 02-10-2025 End: 12-51-8453gztensuejrCcxweuer Ball DO Work Phone: [facility]Start: 02-10-2025 End: 03-45-7960Diyqjun encounter procedureJustin Delano Rosario DO-[facility] Work Phone: Start: 02-04-2025 End: 95-80-9160rclpaelyvkIfsybbmu Ball DO Work Phone: [facility] 02-04-2025 End: 63-79-8242Rphfzrh encounter procedureBenjorge Aceves DO-[facility] Work Phone: Start: 11-27-2024 End: 56-77-2842krikmulxnbEddsrhjs Ball DO Work Phone: [facility] Work Phone: Start: 11-27-2024 End: 65-10-1683Iasbbkh encounter procedureYamilex Nba Bull [facility] Work Phone: Start: 10-23-2024 End: 28-96-1618vrsricwtgmBeqjinzv Ball DO Work Phone: [facility] Work Phone: Start: 10-23-2024 End: 32-27-7818Oqjnxtr encounter procedureBejorge Aceves DO-[facility] Work Phone: Start: 10-23-2024 End: 12-59-1896Rzuesgr encounter statusBejorge Aceves [facility]: 66-86-2354Kox-patient / Non-visitOutside Provider-[facility] Work Phone: Start: 08-21-2024 End: 65-67-9133yglttaporbEogzeorxmBarberton Citizens Hospital Work Phone: Start: 08-21-2024 End: 88-71-3549Yyhlkbk encounter procedureE[facility] Work Phone: Start: 39-63-2559Xkz-patient / Non-visitFirelands Physician [facility] Work Phone: Start: 07-12-2024 End: 09-76-6400dsrunhmkkqVLIMYJ MOUKAUniversity [facility] Start: 05-15-2024 End: 89-64-4806ewdnfrqpllSucguujzgC[facility] Clinic [facility] Work Phone: Start: 05-15-2024 End: 90-95-6421Phjciqj encounter procedureE[facility] Work Phone: Start: 04-23-2024 End: 55-51-0443qgrrrjqnruHcmghihlxCleveland Clinic [facility] Work Phone: Start: 04-23-2024 End: 22-86-0558Bkpcxou encounter procedureE[facility] Physician [facility] Work Phone: Start: 02-07-2024 End: 29-43-4520gdznrcjfipKftbykawvC[facility] Clinic [facility] Work Phone: Start: 02-07-2024 End: 43-43-4290Hdnwvvd encounter procedureE[facility] Physician [facility] Work Phone: Start: 94-08-5125fsgooszenmFHCWEIYCincinnati Shriners Hospitaltart: 70-73-1462Wdv-patient / Non-visit [facility] Physician [facility] Work Phone: Start: 01-15-2024 End: 61-20-7906Obnrnoavy encounterJada Wilkins APRN.CNP Work Phone: UrologyStart: 11-01-2023 End: 98-02-8694ntrnohvaqnPukpipphjCleveland Clinic [facility] Work Phone: Start: 11-01-2023 End: 75-28-6219Puokkes encounter procedureE[facility] Work Phone: Start: 10-18-2023 End: 77-69-0180aujtmxqxmqTktikxvlcC[facility] Clinic [facility] Work Phone: Start: 10-18-2023 End: 86-26-9890Xrpdbcbfp for general adult medical examination without abnormal findingsC[facility] Clinic [facility] Hospitaltart: 10-18-2023 End: 94-31-8091Jnlteeo encounter procedureE[facility] Health [facility] Physician GroupAshtab[facility] Work Phone: Start: 32-54-0064Fwtbvxqph encounterJada Wilkins APRN.CNP Work Phone: UrologyStart: 09-13-2023 End: 65-17-4214yqnzyquklxOifkszm W Angermeier MD Work Phone: UrologyStart: 09-13-2023 End: 50-85-1769Qjclzjq encounter procedureJian Alberto MD Work Phone: UrologyComment on above:Acquired buried penis (Primary Dx); Scarring of penisStart: 08-04-2023 End: 20-55-1894Eyslayv encounter procedureGiovanni Mulligan MD Work Phone: UrologyComment on above:Acquired buried penis (Primary Dx)Start: 08-04-2023 End: 52-23-7974bdaoxwjshaMGXSQR SANTIAGOFacility:[facility]art: 07-28-2023 End: 58-32-0620vwsyanvlocYQUMNRXMarin ALBERTOFacility:[facility] Start: 24-54-1078Lml-patient / Non-[facility] Work Phone: Start: 07-27-2023 End: 28-79-6267Jslcltzuo to establishmentEvergreenhealth [facility] [address] Work Phone: [facility] MAINStart: 07-27-2023 End: 79-21-3394Mhpfslzcibddb examination donePa [address] Work Phone: [facility] Work Phone: Start: 07-27-2023 End: 05-83-4905lvsdlbpnnaSzle [address] Work Phone: Pre AnesthesiaComment on above:Pre-operative examination (Primary Dx); Primary hypertension; Hyperlipidemia, unspecified hyperlipidemia type; Coronary artery disease involving coronary bypass graft of [place] heart without angina pectoris; Chronic systolic CHF (congestive heart failure) (HCC); Paroxysmal atrial fibrillation (HCC); Gastroesophageal reflux disease, unspecified whether esophagitis present; Type 2 diabetes mellitus with other specified complication, with long-term current use of insulin (HCC); Class 2 obesity due to excess calories without serious comorbidity with body mass index (BMI) of 39.0 to 39.9 in adultStart: 11-70-2778Bybqeycgx for other preprocedural examinationFAHAD [facility] HospitalStart: 28-90-7601Vzuvfxlqh encounterNoy Mary RN Work Phone: UrologyComment on above:Skein Winding Operator - OtherStart: 07-11-2023 End: 11-92-9428rvipqpksplEmcxadvkdBarberton Citizens Hospital Work Phone: Start: 07-11-2023 End: 07-00-0235Sruxzbs encounter procedureDevika Physician GroupAshtabula [facility] Work Phone: Start: 06-21-2023 End: 29-50-0570Pmvaqwr encounter procedureCritical Access Hospitalnoam Physician GroupP[facility] Work Phone: Start: 06-19-2023 End: 80-48-9627neglpipvkeOHYZR RIAD M.D.Facility:[facility]tart: 06-19-2023 End: 75-74-1074Ysiynzj encounter Lauri Colmenares MD Work Phone: CardiologyComment on above:Coronary artery disease involving [place] coronary artery of [place] heart, unspecified whether angina present (Primary Dx); History of non-ST elevation myocardial infarction (NSTEMI); Hx of CABG; Primary hypertension; Other hyperlipidemiaStart: 96-73-0740Vdd-patient / Non-visitOscarsovah health - [facility] Physician GroupMulticare Health Professional Or Work Phone: Start: 05-24-6282Wwuzlavmy encounterNoy Mary RN Work Phone: UrologyComment on above:Skein Winding Operator - OtherStart: 05-03-2023 End: 77-19-7632jhkrmoogxfConfjvh W Angermeier MD Work Phone: UrologyStart: 05-02-2023 End: 83-85-8383yyhiltrbwpHxsohsm Calvalyse Other [facility]Di[facility] Other Start: 69-84-5336Wmsqkd outpatient visit 10 minutes Yarelsi CalveyFPG [facility] OrthopedicsStart: 05-02-2023 End: 71-23-6525Wkdgnhj encounter procedureDO Fahad Aceves Work Phone: firTaste Kitchen Physician Group-Start: 04-19-2023 End: 53-52-8659qjtmnnyrygBisawmyp Yola Other noDi[facility] Other Start: 23-04-1545Htxjbr outpatient visit 25 minutes Fahad AcevesEncompass Health [facility] ClinicStart: 04-19-2023 End: 25-18-6862Axbvtjx encounter procedureDO Fahad Aceves Work Phone: firTaste Kitchen Physician Group-[facility] Work Phone: Start: 03-30-2023 End: 47-39-0163czackzzyigGrgfnxr Neeta Other [facility] Other Start: 39-69-3723Ibjjfnkpa encounterColleen CalvalyseFPG Referral CoordinatorStart: 03-28-2023 End: 28-52-6582rsuzlzmvbhYrxuirt Calvalyse Other noSpecialty Physicians [facility] Other Start: 18-43-0734Gewlqy outpatient visit 15 minutes Yarelis CalveyFPG [facility] OrthopedicsStart: 03-22-2023 End: 88-81-1463rsrrzbnacmEQPKDO K MAPUSFacility:EU RickkStart: 03-22-2023 End: 97-70-1490Yewgcqr encounter procedureGregbrandt BUSH [facility] Start: 03-08-2023 End: 00-69-3485Aexincljnt RecurringDO Fahad Aceves Work Phone: [facility] Work Phone: Start: 03-08-2023(DM) DiabetesTondra MapusFirelands Coordinated Care ClinicStart: 03-08-2023 End: 83-42-8564xhtjvwmkbyRM Fahad Aceves Work Phone: noKONUX [place] Other Start: 03-08-2023 End: 60-02-2942Rlvaphl encounter procedureDO Fahad Aceves Work Phone: [facility] Work Phone: Start: 02-22-2023 End: 14-21-2070savrmguviaWrribav Calvey Other [facility] Other Start: 52-92-4134Mnachy outpatient visit 15 minutes Yarelis Nayak OrthopedicsStart: 01-20-2023 End: 16-06-3436nbffievaiyHibgqfrx Ball Other noKONUX [place] Other Start: 11-91-0144Mbotti outpatient visit 15 minutes Fahad [facility] ClinicStart: 12-09-2022 End: 22-54-4333dwiwhntjleSlwomd Mapus Other LegalGurusaint mary's [facility] Other Start: 49-01-3642Avibtoyuk encounterTondra Palomo [facility]inated Care ClinicStart: 89-56-6797jeilmndgpcMNLMDX MAPUS [facility]tart: 11-24-2022(DM) DiabetesTondra MapusFirelands Coordinated Care ClinicStart: 11-24-2022 End: 46-42-6896myqesngcnnMtobom Mapus Other [facility]Di[facility] Other Start: 50-39-1780Aqbrlmikx encounterTondra ElidaG EndocrinologyStart: 10-17-2022 End: 12-28-2223uqkvfqmjrpBhoztjug Ball Other [facility]Di[facility] Other Start: 57-94-7398Dbpzhcpxd for general adult medical examination without abnormal findingsFahad Aceves Medical ClinicStart: 10-34-2146Omcchhxd preventive med est patient 40-64yrsBenjorge Aceves Medical ClinicStart: 90-91-5503xtummpgjdyKF FAHAD BALLFacility:I7Zpkxi: 08-24-2022 End: 12-79-3865ubachcteftFUGYJ D [facility] BURLINGTONFacility:V9Zzafp: 08-22-2022(DM) DiabetesTondra MapusFirelands Coordinated Care ClinicStart: 08-22-2022 End: 88-25-3620kmsvkmbgpgRkkltq Mapus Other [facility] Other Start: 07-18-2022 End: 74-23-1852mxwrryhmrnAvzqmdhz Ball Other [facility]Di[facility] Other Start: 52-54-5944Minunb outpatient visit 15 minutes Fahad Rosalinda Aceves Medical ClinicStart: 05-19-2022(DM) DiabetesTondra Mapus [facility] ClinicStart: 05-19-2022 End: 36-35-8213ghkyhdfsnbGdheoa Mapus Other [facility] Other Start: 05-04-2022 End: 47-13-0588wxihausixuKhdzgqnl Ball Other [employer] [employer] Other Start: 20-10-6510Pkuraq outpatient visit 25 minutes Fahad Aceves [facility] ClinicStart: 04-19-2022 End: 99-56-7375cntsnkghdnCS FAHAD BALLFacility:Z4Mmuoz: 04-05-2022 End: 81-89-2819tylminnnbiGK FAHAD BALLFacility:U7Zhzmn: 03-30-2022 End: 70-72-2043wxxxqpltmcSU FAHAD BALLFacility:N8Uzspa: 02-24-2022 End: 18-34-4353hhaxfpudrjXA FAHAD BALLFacility:R0Slspv: 02-17-2022 End: 91-66-9026irebfuvbjjWJ FAHAD BALLFacility:F4Vumkl: 02-16-2022 End: 55-88-0975wmmuoffpkiAL FAHAD BALLFacility:Y4Vvuhi: 02-14-2022 End: 34-79-2045inyljjlvskErkdhx Mapus Other [employer] [place] Other Start: 68-09-1746Cljuxxkog encounterTondra MapusFPG EndocrinologyStart: 02-11-2022 End: 32-49-9343rdiitavkncMS Fahad Aceves Work Phone: [facility] Work Phone: Start: 02-11-2022 End: 35-30-6449Jisylwi encounter procedureDO Fahad Aceves Work Phone: [facility]-Lab Main CampusStart: 02-10-2022 End: 36-04-5054defrcdvlfsIU SIMBA TSAIRBELFacility:R2Kghvr: 02-01-2022 Registered RecurringDO Fahad Aceves Work Phone: [facility] Start: 02-01-2022 End: 12-14-9837riamisuhizIchwtn Mapus Other [employer] Other Start: 44-31-7595Dlxrciywi encounterTondra MapusFPG EndocrinologyStart: 78-95-4304zikxaobaucZS FAHAD BALLFacility:S8Roicu: 12-31-2021 End: 26-50-9537iezmvboxtiDYQXQDB D KATKOFacility:F1Lgyzm: 06-97-5814qvcfwinlqs PETER D HIGHLANDERFacility:K0Rtsfg: 11-15-2021 End: 01-68-3689gjjbrtarztTN FAHAD BALLFacility:Z2Inlsc: 10-29-2021 End: 70-68-8684uuppnklxiiIQ FAHAD BALLFacility:N1Qsjpb: 10-21-2021(DM) DiabetesTondra MapusDevika Coordinated Care ClinicStart: 10-21-2021 End: 04-25-3741ahcrldrauwHwmyqi Mapus Other noK[facility] [place] Other Start: 09-09-2021 End: 31-89-9940syvnmmpihrXYKNX D ERIKANDERFacility:F6Vkjrm: 08-11-2021 End: 30-68-2213zfyxfdhjnqRzicmt Dymond Other noK[facility]UX [place] Other Start: 34-33-3566Lugwtj outpatient visit 25 minutes Celestina [facility] ClydeStart: 06-29-2021(DM) DiabetesTondra Bull [facility] Coord[facility] Care ClinicStart: 06-29-2021 End: 62-64-3263judndezpqvSzlnrr Mapus Other no[facility] [place] Other Start: 05-12-2021 End: 26-23-2042xtbylqehmrPebkzu Mapus Other [employer] Other Start: 23-69-6487Qvlijeyhg encounterTondra Palomous [facility] Coordinated Care ClinicStart: 05-04-2021 End: 53-01-6263akcrntttwjKvpden Mapus Other [employer] Other Start: 52-16-5023Kxcbsnxje encounterTondra Bull [facility] Coord[facility] Care ClinicStart: 03-24-2021(DM) DiabetesTondra Bull [facility] Coordinated Care ClinicStart: 03-24-2021 End: 07-22-5579loevrmardiFvvwsg Mapus Other [place] Other Start: 92-09-3121Mthslsn evaluation of patient and reportYamilex [facility] Procedures DateProcedureProcedure DetailPerforming ClinicianStart: 05-55-6128AN lumbar spine 2-3V*Fahad Aceves DO Work Phone: Start: 97-01-5148Ctf routine ecg w/least 12 lds i&r onlyLigia Colmenares MD Work Phone: Start: 44-72-9434Adumx dip stick/tablet rgnt auto w/o microscopyBulk Order ProviderStart: 07-33-7836Miywmfgl artery bypass grafts x 5 Antonia BUSH Coronary artery bypass graftBenjorge Aceves Other History of coronary artery bypass graftingHx of CABG Ligia Colmenares MD Work Phone: Plan of Treatment DateCare ActivityDetailAuthorStart: 87-27-1643UX Controlled (<130/80)BP Controlled (<130/80)[facility]ertart: 42-56-9514HD Controlled (<130/80)BP Controlled (<130/80)[facility] Centertart: 02-14-2024 End: 47-51-8504Swykllj encounter lolcjqgof60/30/2024 10:15 AM EDT Office Visit Urology [address] [address] Jian Alberto MD [address] [place] [address] 5 month f/u ED per cc chartUrologyComment on above:5 month f/u ED per cc chart Start: 14-07-9952Lvjijwragb A1c plvyvucdqdxUfG9TQyxcammhg ClinicStart: 62-31-9771Dmweq-19 Vaccine ( season)Covid-19 Vaccine ( season)[facility] Centertart: 69-67-2076Gzabmxnje vaccinationSamaritan Hospital Start: 46-93-6283Lfuorsrkea Health ScreeningBehavioral Health ScreeningUniversity Hospitals Beachwood Medical Centertart: 67-03-1191Zhwxxicnmx AssessmentDepression AssessmentUniversity Hospitals Beachwood Medical Centertart: 80-55-3051Ohvwfwldo B surface antibody levelLDL Cholesterol [facility] Centertart: 28-48-4990Mtrha-19 Vaccine ( season)Covid-19 Vaccine ()[facility] Centertart: 60-33-5133Jgvngkdge vaccinationInfluenza Vaccine (#1)[facility] Centertart: 34-33-4433Ilfmrqfopr A1c czfrasayjccZfD5LKuumjnyhw ClinicStart: 25-84-2390BCC Vaccine (1 - 1-dose 60+ series)RSV Vaccine (1 - 1-dose 60+ series)[facility] Centertart: 90-40-3420LIW Vaccine (1 - Risk 60-74 years 1-dose series)RSV Vaccine (1 - Risk 60-74 years 1- dose series)[facility] Centertart: 48-74-0734Bezgsnri specific antigen measurementProstate Cancer Screening DiscussionUniversity Hospitals Beachwood Medical Centertart: 01-11-2012 Shingrix Vaccine (1 of 2)Shingrix Vaccine (1 of 2)[facility] Centertart: 17-93-7914Guuaorvcs for malignant neoplasm of colonUniversity Hospitals Beachwood Medical Centertart: 76-81-8192Wqdwg microalbumin profileDTaP,Tdap,Td Vaccine (1 - Tdap)[facility] Centertart: 75-29-3443Zyppbz PCP Team Chronic Disease VisitAnnual PCP Team Chronic Disease VisitUniversity Hospitals Beachwood Medical Centertart: 44-28-0526Blbvdap ScreeningAnxiety ScreeningUniversity Hospitals Beachwood Medical Centertart: 95-59-1837Nskpjwmmbh ScreeningDepression ScreeningUniversity Hospitals Beachwood Medical Centertart: 33-92-1864Kzkohzrlk C screeningHepatitis C ScreeningUniversity Hospitals Beachwood Medical Centertart: 40-19-6897DQU screeningHIV ScreeningUniversity Hospitals Beachwood Medical Centertart: 02-96-5383Bggsedvg foot examinationDiabetic Foot ExamUniversity Hospitals Beachwood Medical Centertart: 55-53-2799Whadcgtg screeningDilated Retinal ExamSamaritan Hospital Start: 81-08-8593Lgmpmsogs B screeningUrine Albumin:Creatinine RatioUniversity Hospitals Beachwood Medical Centertart: 90-53-2158Ulravbgzzeyi vaccinationPneumococcal Vaccine (1 of 2 - PCV)[facility] Centertart: 89-68-9343Magzm-19 Vaccine (#1)Covid-19 Vaccine (#1) [facility] HospitalComprehensive metabolic 2000 panel - Serum or PlasmaKettering Memorial HospitalPatient EducationTrinity Health System Work Phone: URINALYSIS, REFLEX MICROSCOPICURINALYSIS, REFLEX MICROSCOPIC Lab Routine Screening for genitourinary condition [facility]: [facility]23[facility] Work Phone: comment on above:Ordered: 09/13/2023XR Hip - left 2 [facility] Lumbar spine 2 or 3 [facility] Immunizations Immunization DateImmunizationNotesCare HcuuzkqxIuvmgaeb23-33-4272OIUPE-60 Pfizer (bivalent)Fahad Aceves Other [facility]12-07-2021COVID-19 Vaccine Pfizer - Documentation Purposes OnlyBejorge Aceves Other [facility]04-19-2021COVID-19 Vaccine Pfizer - Documentation Purposes OnlyBenjorge Aceves Other [facility]03-29-2021COVID-19 Vaccine Pfizer - Documentation Purposes OnlyBenjorge Ball Other [facility] Payers DatePayer CategoryPayerPolicy [id number] Health InsuranceDAY[facility] PL[facility] [id number] 2015-Present [phone] [address] [address] [place] [address] O [id number] 2.16.840.1.445886.3.57[id number] 2.16.840.1.564104.3.57[id number] 2.16.840.1.378638.3.57[id number] 2.16.840.1.114739.3.57[id number] 2.16.840.1.092811.3.57[id number] 2.16.840.1.129357.3.579.[id number] 2.16.840.1.175855.3.579.[id number] 2.16.840.1.763908.3.57[id number] 2.16.840.1.504434.3.57[id number] 2.16.840.1.097214.3.579.2.70221-00-9066Glzdpcv1401259 2.16.840.1.784856.3.579.2.44380-97-1632Htwewlf5413495 2.16.840.1.649836.3.579.[id number] 2.16.840.1.758589.3.579.2.80280-17-7319Qjdwmus3872164 2.16.840.1.356540.3.57[id number] 2.16.840.1.371129.3.579.2.76786-77-8251Dhsi-rbm 1la61040-y157-2114-d4s8-325nw[id number] 2.16.840.1.538165.43Ycdpvpb9956795 2.16.840.1.5[id number] 2.16.840.1.776430.3.579.2.531 Social History DateTypeDetailFacilityUnknown if ever smokedNorth Downtown Other Start: 05-03-2023 End: 17-42-4314Qrb [facility]igned At [facility]tart: 81-85-3495Hza [facility]igned At [facility]tart: 03-22-2023 End: 63-05-3877Emxbmwl smoking statusNever smoked tobacco (finding)[facility]red Healthcaretart: 55-53-6532Yrykgks use and exposureSmokeless tobacco non-userUniversity Hospitals Beachwood Medical Centertart: 05-03-2023 End: 68-97-3647Nucduys of Social functionUniversity Hospitals Beachwood Medical Centertart: 30-37-2556Trb Assigned At BirthNot on fileUniversity Hospitals Beachwood Medical Centertart: 07-27-2023 End: 77-49-4453Fdvsnvl intakeCurrent drinker of alcohol (finding)[facility] Centertart: 04-23-2024 End: 11-53-0757GnjXdss (finding)[facility] Medical Equipment Procedure CodeEquipment CodeEquipment Original TextEquipment IdentifierDates Functional Status ThinFqwumarbxlBmanejDmhwlqlf75-74-4977Aiokmjsshy StatusN/AExec[facility] Clinical Notes 01-06-2021 to 11-27-2024 Note Date & MlpyVmaxEptevguy38-51-1217 Evaluation note* Diagnosis Onset Date Resolution Status Admit Date BMI 37.0-37.9, adult acuteAugust 2024 3:59pmDietary counseling and surveillanceacuteAugust 2024 3:59pmMixed hyperlipidemiaacuteAugust 2024 3:59pmVitamin B 12 deficiencyacuteAugust 2024 3:59pmHTN (hypertension)deletedAugust 2024 3:59pmType 2 diabetes mellitusdeletedAugust 2024 3:59pmAccidental fallacuteOctober 2024 9:04amLow back painacuteOctober 2024 9:04am Pain in joint involving left pelvic region and thighacuteOctober 2024 9:04am [facility] Work Phone: 1(420) 917-760408-13-2025 Evaluation note* Diagnosis Onset Date Resolution Status Admit Date BMI 37.0-37.9, adult acuteAugust 2024 3:59pmDietary counseling and surveillanceacuteAugust 2024 3:59pmMixed hyperlipidemiaacuteAugust 2024 3:59pmVitamin B 12 deficiencyacuteAugust 2024 3:59pmHTN (hypertension)deletedAugust 2024 3:59pmType 2 diabetes mellitusdeletedAugust 2024 3:59pmAccidental fallacuteOctober 2024 9:04amLow back painacuteOctober 2024 9:04am Pain in joint involving left pelvic region and thighacuteOctober 2024 9:04amAvascular necrosis of bone of left hipacuteOctober 2024 8:56am [facility] Work Phone: 1(472) 823-488207-09-2025 Evaluation note* Diagnosis Onset Date Resolution Status [...] 2024 3:59pmType 2 diabetes mellitusdeletedAugust 2024 3:59pm [facility] Work Phone: 1(217) 505-321705-07-2025 Evaluation note* Diagnosis Onset Date Resolution Status [...] antigen)noneactiveJuly 2024 3:43pm Wellness examinationnoneactiveJuly 2024 3:43pm [facility] Work Phone: 1(704) 675-850303-28-2025 NoteUT Cardiology - [facility] Subjective Caden Wills is a 64 y.o. year old male patient being seen for 1 year follow up. Patient had Echo. Patient states he has no new complaints. Patient Active Problem List Diagnosis Chest pain NSTEMI (non-ST elevated myocardial infarction) ([facility]/HCC) Obesity Diabetes mellitus, type II, insulin dependent (CMS/HCC) Respiratory insufficiency Hypomagnesemia Hypertension Hyperlipidemia Postoperative atrial fibrillation (CMS/HCC) Coronary artery disease involving [place] coronary artery of [place] heart without angina pectoris Chronic systolic heart failure (CMS/HCC) History of coronary artery bypass graft Acquired buried penis Erectile dysfunction associated with type 2 diabetes mellitus (CMS/HCC) Scarring of penis Anticoagulated Balanoposthitis GERD (gastroesophageal reflux disease) Hidden penis Phimosis Type 1 diabetes ([facility]/HCC) Family History Problem Relation Name Age [...] He was admitted in December 2021 to [facility] with chest pain and diagnosed [...] Behavior is cooperative. Judgmen (more content not included)...[facility] 04-23-2024 Evaluation note* Diagnosis Onset Date Resolution [...] 2 diabetes mellitusdeleted May 15, 2024 4:00pm [facility] Work Phone: 1(544) 738-634610-23-2024 Evaluation note* Diagnosis Onset Date Resolution Status [...] 2 diabetes mellitus with hyperglycemiaacuteJanuary 2024 3:40pm [facility] Work Phone: 1(585) 736-952110-08-2024 NoteI was available for discussion and questions prior to patient visit. Plan was discussed prior to implementation and I was present for delivery of the plan. I agree with the assessment and plan and have modified the documentation as necessary. Caroline Silva PharmD Cardiology Outpatient Clinical Pharmacist 01/23/24[facility]10-08-2024 NotePatient contacted clinic and updated labs were reviewed with patient. Stated he has been having leg pain (for 2-3 years); discussed high-risk of PAD due to severe CAD and DM. Will relay information to Dr. Kasper and discuss possibility of DVT/PAD work-up with imaging. Will continue to follow-up with patient regarding above issues. Caroline Silva PharmD Cardiology Outpatient Clinical Pharmacist 01/23/24[facility]10-08-2024 NotePharmacist Visit - Lipid Phone Consult Provider: Dr. Kasper Department: [facility] Cardiology SUBJECTIVE/OBJECTIVE Caden Wills is a [...] visit for 01/23. Opal Peña, PharmD, PGY1 Exercise Planner 01/23/24 [place] [facility]09-30-2024 Telephone encounter Note* Telephone Encounter - Jada Wilkins APRN.CNP - 01/15/2024 2:53 PM EDT See previous telephone encounter from 10/04/2023. Keflex has been on auto refill, and [facility] has already been asked to cancel this request. Jada Wilkins APRN.CNP [facility] Work Phone: 1(754) 918-234009-30-2024 Telephone encounter Note* Telephone Encounter - Jada Wilkins APRN.CNP - 01/15/2024 2:53 PM EDT ----- Message from Kourtney Sena sent at 01/15/2024 9:13 AM EDT ----- Regarding: [facility] medication [facility] [place] [facility] refill request for Cephalexin - it is not on his current med list. Please advise and thank you, Kourtney [facility]09-30-2024 Miscellaneous Notes* Telephone Encounter - Jada [...] EDT ----- Regarding: [facility] medication [facility] [place] [facility] refill request for Cephalexin - it is not on his current med list. Please advise and thank you, Kourtney documented in this encounterSamaritan Hospital09-30-2024 NotePharmD Cardiology Consult - Lipids Provider: Dr. Kasper Department: [facility] Cardiology Caden Wills is a 64 [...] for PCSK9. Rx will be sent to [facility] to determine coverage and provide education to patient. Recommendation: Complete updated lipid panel, ApoB, and Lp(a) prior to initiation of PCSK9 to assess ASCVD risk. Will call patient to get labs drawn. 01/15/2024: Left voicemail, requested call back. Follow-up: Labs to be completed; PCSK9 coverage Treatment plan and management of the patient was discussed with Dr. Kasper prior to implementation. Caroilne Silva PharmD Cardiology Outpatient Clinical Pharmacist 01/15/2024[facility]09-30-2024 NotePatient returned call; will complete labs by end of the week. Requested call back on Sunday 01/21 for follow-up. Orders placed. Caroline Silav PharmD Cardiology Outpatient Clinical Pharmacist 01/16/2024[facility]06-19-2024 Telephone encounter Note * Telephone Encounter [...] Alberto in the fall. Left voicemail at [facility] in [place], advising that Caden A Elio does NOT need refill on Keflexand asking them to take it off auto refill. Jada Wilkins APRN.CHUY [facility] Work Phone: 1(638) 246-119806-19-2024 Miscellaneous Notes* Telephone Encounter - Jada Wilkins APRN.CNP - 10/04/2023 4:24 PM EDT Keflex was prescribed for 1 month after buried penis surgery on 07/28/2023. Called Cadne Wills. He reports trying to cancel refill request for [facility] with [facility] but was unsuccessful. Denies concerns about infection. Reminded him that he should follow up with Dr. Alberto in the fall. Left voicemail at [facility] in [place], advising that Caden A Elio does NOT [...] and thank you, Kourtney documented in this encounterSamaritan Hospital06-19-2024 Telephone encounter Note * Telephone Encounter - Jada Wilkins APRN.CNP - 10/04/2023 4:18 PM EDT ----- Message from Kourtney Hodge Patient Service Spec sent at 10/04/2023 7:36 AM EDT ----- Regarding: Medication refill [facility] refill request for Cephalexin 500 mg- it is not listed in his med list . Please advise and thank you, Kourtney [facility]05-29-2024 NoteHNO ID: [id number] Author: JIAN ALBERTO MD Service: ? Author [...] tablet Take 20 mEq by mouth. omega 6-zyc-lhv-fish oil (FISH OIL) 100-160-1,000 mg cap Take 1,000 mg by mouth. No current facility-administered medications on file prior to visit. 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 Jian Alberto, [facility]05-29-2024 History of Present illness Narrative* Jian [...] tablet Take 20 mEq by mouth. omega 5-kkz-weh-fish oil (FISH OIL) 100-160-1,000 mg cap Take 1,000 mg by mouth. No current facility-administered medications on file prior to visit. 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 Jian Alberto MD documented in this encounterSamaritan Hospital05-29-2024 NotePatient Outreach (UROLMN) CADEN WILLS ([id number]) 1960 M Date Time Provider Department 09/13/23 JIAN ALBEROT During your visit today, we recorded the following information about you: Allergies As of Date: 09/13/2023 (No Known Allergies) Date Reviewed: 09/13/2023 Reviewed by: Rafal Mulligan MA - Fully Assessed Visit Diagnosis:Screening for genitourinary condition [Z13.89] Order(s):URINALYSIS, REFLEX MICROSCOPIC [FOF8022] Order #: [id number] Prescriptions as of 09/18/2023 - amiodarone (PACERONE) [...] Take 20 mEq by mouth. - omega 5-lbw-uyk-fish oil (FISH OIL) 100-160-1,000 mg cap Take [...] excess calories without *07/27/2023 Encounter Status:Closed by [place] SANpulse TechnologiesUSER on 09/18/23[facility] 08-04[facility] History of Present illness Narrative* [...] & Prosthetic Surgery Fellow documented in this encounterSamaritan Hospital04-19-2024 NoteHNO ID: [id number] Author: GIOVANNI MULLIGAN MD Service: ? Author [...] Male Genitourinary Reconstruction AND Prosthetic Surgery FellowOhiohealth Berger Hospital04-13-2024 NoteHNO ID: [id number] Author: GRAZYNA PURDY MD Service: Urology Author Type: Resident Type: Progress Notes Filed: 07/29/2023 08:41 Note Text: [facility] UROLOGY PROGRESS NOTE Name: Caden Wills Bed: Main - Periop OR/Main - * Date: 07/29/2023 After Hours [facility] Urology Service Pager: [phone] ASSESSMENT AND PLAN Caden Wills is a [...] Grazyna Purdy MD Urology Resident [facility] [place] Pager [phone] For weekend or after hours issues [place] [phone] 6:53 AM 07/29/2023 Subjective SUBJECTIVE - See [...] 82 Imaging All relevant recent imaging reviewedOhiohealth Berger Hospital04-12-2024 NoteHNO ID: [id number] Author: JUICE GEE MD Service: Urology Author Type: Resident Type: Progress Notes Filed: 07/28/2023 16:17 Note Text: [facility] UROLOGY PROGRESS NOTE Name: Caden Wills Bed: Main - Periop OR/Main - * Date: 07/28/2023 After Hours [facility] Urology Service Pager: [phone] ASSESSMENT AND PLAN Caden Wills is a [...] SSI inpatient Juice Gee MD Urology Resident [facility] Pager [phone] For weekend or after hours issues please page the on-call urology pager [phone] 07/28/2023 4:16 PM Subjective SUBJECTIVE - See [...] 82 Imaging All relevant recent imaging reviewedOhiohealth Berger Hospital04-12-2024 NoteHNO ID: [id number] Author: JEFFY MARTINEZ SRNA Service: ? 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 Alberto has scheduled you for your procedure at this surgery center: Main [place] Scheduling Office: [phone] [place] [address]. Please read below carefully for your personalized [...] not take the day of surgery omega 3-euo-yxj-fish oil (FISH OIL) 100-160-1,000 mg cap Do [...] or other anticoagulants without consulting with your rock crushing machine operator or prescribing physician. - Stop Vitamin [...] Procedures: - YOU MUST HAVE A RESPONSIBLE CERTIFIED ORTHOPTIST TAKE YOU HOME. A TOOL MECHANIC OR SWIMMING POOL CLEANER CANNOT BE MADE A RESPONSIBLE CERTIFIED ORTHOPTIST. - We recommend that a responsible person [...] call the Monday before. Your surgeon s production control scheduler will tell you what time to call the office. - If you have not reached the departmental production control scheduler by 5 P.M., call [phone] after 5 P.M. the day before your surgery. Please be aware that emergency situations arise, which may delay or change your surgical time. If this happens, we will notify you as soon as possible and regret any inconvenience. If you already have an Advance Directive, please fax a copy to [phone] or email to for it to be [...] day. Kevin Goldsmith APRN.CNP documented in this encounterSamaritan Hospital04-11-2024 History and physical note * Kevin [...] artery disease involving coronary bypass graft of [place] heart without angina pectoris CAD, hx of NM s/p CABG x 5 in Dec 2021. [...] cardiac events (< 1% chance of , NM, CHF, malignant ventricular arrhythmias or high grade [...] note 06/19/23 notes the following, Echo 03/30/22 ([facility]) - Global LV systolic function [...] have a large neck STOP-Bang Score: 5 [id number] Score: Age: <65 Sex: male CHF history: Yes Hypertension history: Yes Stroke/TIA/thromboembolism history: No Vascular disease history: Yes Diabetes history: Yes [id number] Score: 4 ARISCAT Score: Age: 51-80 Preoperative [...] Artery Disease Involving Coronary Bypass Graft of [place] Heart Without Angina Pectoris Chronic Systolic Chf [...] 20 mEq by mouth. Taking Yes omega 2-uqd-bga-fish oil (FISH OIL) 100-160-1,000 mg cap Take [...] 414 QTC Calculation (Bazett) 440 Calculated P Pe Ell 53 Calculated R Pe Ell 20 Calculated T Pe Ell 86 Impression NORMAL SINUS RHYTHM LOW VOLTAGE QRS NONSPECIFIC ST ABNORMALITY ABNORMAL ECG Confirmed by LIGIA COLMENARES M.D. ([id number]), marketing editor Juan MTitus nicoleie ([id number]) on 06/19/2023 2:11:39 PM 03/30/2022 Echo- [facility] Global LV systolic function is difficult [...] 2:46 PM PAGER/CONTACT #: documented in this encounterSamaritan Hospital04-02-2024 Miscellaneous Notes* Telephone Encounter - Noy Mary RN - 07/18/2023 3:38 PM EDT Called and spoke to Caden Wills regarding pre op issues. Instructed patient to take last dose of Farxiga on 07/23. Informed patient that his case is currently scheduled as first round with a 6:00 arrival time at [facility]. States that he will be going home after pre ops on 07/26 and coming back the following day. No other questions or concerns expressed. Noy Mary RN documented in this encounterSamaritan Hospital03-04-2024 History of Present illness Narrative* Ligia Colmenares MD - 06/19/2023 1:00 PM EST Images from the original note were not included. [facility] [place] Rob Borden Department of Cardiovascular Medicine SECTION [...] furniture (8.00 METs). 12/06/2022 Robyn Miller Cardiology- [facility] HPI Pleasant 62-year-old man with prior history of coronary disease status post percutaneous intervention to chronically occluded LAD in 2007. Additional history includes diabetes, hypertension and hyperlipidemia. He was admitted in December 2021 to [facility] with chest pain and diagnosed [...] 1 tablet by mouth every afternoon. omega 7-mai-lzk-fish oil (FISH OIL) 100-160-1,000 mg cap Take [...] JVD, carotids well felt, no bruits. CARDIAC: [place] palpable in the 5th intercostal space mid [...] reviewed from the reports only: 03/30/2022 Echo- [facility] Global LV systolic function is difficult [...] upper normal limits in size. 01/07/2022 CABGx5- [facility] CABG X 5; CPB; LEFT LEG VEIN HARVEST; INTRAOP FREDI Coronary artery bypass grafting x5, AGARWAL to LAD, saphenous vein graft to diagonal and obtuse marginal branches, and saphenous vein graft to PDA and right posterolateral ventricular branch. 01/05/2022 Cardiac Cath- [facility] Mid RCA lesion is 99% stenosed. [...] infiltrated over the right radial artery. A 6-Croatian Terumo Glidesheath slender was placed in right radial artery. Radial anti-vasospasm cocktail of verapamil 2.5 mg and nitroglycerin 200 mcg was administered through the sheath. All catheter exchanges were made over the [employer] guidewire. JL3.5 was used to engage the [...] cardiac events (< 1% chance of , NM, CHF, malignant ventricular arrhythmias or high grade [...] the patient follows up with an outside rock crushing machine operator. 5. Diabetes mellitus: Managed by PCP. [...] follow up visit. Ligia Colmenares MD, FAC, [facility] CC: To use this Smartlink, specify the provider ID whose address you want to display, e.g., .PROVADDR[1 (where 1 is the provider ID). documented in this encounterSamaritan Hospital03-04-2024 NoteHNO ID: [id number] Author: LIGIA COLMENARES MD Service: ? Author Type: Physician Type: Progress Notes Filed: 06/19/2023 13:23 Note Text: [facility] [place] Rob Borden Department of Cardiovascular Medicine SECTION [...] furniture (8.00 METs). 12/06/2022 Robyn Miller Cardiology- [facility] HPI Pleasant 62-year-old man with prior history of coronary disease status post percutaneous intervention to chronically occluded LAD in 2007. Additional history includes diabetes, hypertension and hyperlipidemia. He was admitted in December 2021 to [facility] with chest pain and diagnosed [...] 1 tablet by mouth every afternoon. omega 0-fqp-dzq-fish oil (FISH OIL) 100-160-1,000 mg cap Take [...] JVD, carotids well felt, no bruits. CARDIAC: [place] palpable in the 5th intercostal space mid clavicular line, (more content not included)...[facility]02-[facility] Miscellaneous Notes * Telephone Encounter - Noy Mary RN - 06/14/2023 10:03 AM EST error documented in this encounterSamaritan Hospital02-28-2024 Miscellaneous Notes* Telephone Encounter - Noy Mary RN - 06/14/2023 9:44 AM EST Called Caden Wills and LVM to confirm surgery date of 07/[address] Alberto. Discussed pre op testing on 07/26 in [place], or he could make two trips. Asked him to confirm Asked patient to confirm receipt, and voice any questions or concerns. Number provided. Noy Mary RN documented in this encounterSamaritan Hospital01-17-2024 NoteHNO ID: [id number] Author: JIAN ALBERTO MD Service: ? Author Type: Physician Type: Progress Notes Filed: 05/03/2023 14:28 Note Text: [facility] NEW PATIENT HISTORY AND PHYSICAL EXAM PATIENT INFO: Caden Wills 63 year old REFERRING M.D.: Antonia Bush MD [address] [address] This consult was requested by Dr. Bush for an opinion regarding buried penis and erectile dysfunction, and my final recommendations will be communicated to the requesting health care provider by way of the shared medical record for internal providers or letter via the [employer] for external providers. 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 , interested in future sexual life. MEDICATIONS: [...] of the sc (more content not included)...[facility]01-17-2024 NotePatient Outreach (UROLMN) CADEN WILLS ([id number]) 1960 M Date Time Provider Department 05/03/23 JIAN ALBERTO During your visit today, we recorded the following information about you: Allergies As of Date: 05/03/2023 (No Known Allergies) Date Reviewed: 05/03/2023 Reviewed by: Claudia Burt OCCA - Fully Assessed Visit Diagnosis:Screening for genitourinary condition [Z13.89] Order(s):URINALYSIS, REFLEX MICROSCOPIC [[id number]] Order #: [id number]. #:[id number] Prescriptions as of 05/08/2023 - metFORMIN ER [...] tablet by mouth every afternoon. - omega 3-etj-qnl-fish oil (FISH OIL) 100-160-1,000 mg cap Take 1,000 mg by mouth. - bumetanide (BUMEX ORAL) Take by mouth. Problem List As Of Date 05/03/2023 Noted Resolved Acquired buried penis [N48.83] 05/03/2023 Scarring of penis [N48.6] 05/03/2023 Erectile dysfunction associated with type 2 beverley*05/03/2023 Encounter Status:Closed by [place], PRODUSER on 05/08/23[facility] 05-02-20[facility] Evaluation note* Encounter Date Diagnosis Assessment Notes Treatment Notes Treatment Clinical Notes Apr, Subungual hematoma o f finger of right hand, initial encounter (ICD- 10 - S60.10XA) Patient instructed on washing with soap and applying ointment to help soften remaining callused area. Progress activity as tolerated [facility] Other 01-03-2024 Evaluation note* Encounter Date Diagnosis [...] are maintaining regular scheduled appts with their rock crushing machine operator. Post operative AF Amiodarone and Eliquis [...] Referred to [facility] for evaluation and treatment [facility] Other 12-12-2023 Evaluation note* Encounter Date Diagnosis Assessment Notes Treatment Notes Treatment Clinical Notes Mar, Subungual hematoma o f finger of right hand, initial encounter (ICD- 10 - S60.10XA) Patient instructed on washing with soap and applying ointment to help soften scab area. [facility] Other 12-06-2023 Hospital Discharge instructions Patient Education [...] Follow these instructions at home: Medicines Take fukb-ufy-owxkvnh and prescription medicines only as told by [...] provider. Document Revised: 06/30/2021 Document Reviewed: 06/30/2021 [employer] Patient Education 2022 [employer] Follow Up Care 11/25/2022 08:22:24 With:ROXANN BARR, Antonia Sharma, URL Address: [address] [employer] [address] [place] [address]- When: Unknown [facility] 11-22-2023 Evaluation note* Encounter Date Diagnosis [...] Feb,MI 39.0-39.9,adult (ICD-10 - Z68.39) see above [facility] Other 11-08-2023 Evaluation note* Encounter Date Diagnosis Assessment Notes Treatment Notes Treatment Clinical Notes Feb, Subungual hematoma o f finger of right hand, initial encounter (ICD- 10 - S60.10XA) Patient instructed to continue with daily soaking. Keep covered while at work [facility] Other 10-06-2023 Evaluation note* Encounter Date Diagnosis Assessment Notes Treatment Notes Treatment Clinical Notes Jan, Crushing injury of r ight index finger, initial encounter (ICD-10 - S67.190A) Elevated and rest. XR for FB, abscess, fx Jan,bscess of finger of right hand (ICD-10 - L02.511)Warm soaks and elevate. Begin antibiotics. Jan,Type 2 diabetes mellitus with hyperglycemia (ICD-10 - E11.65) Increases risk of serious infection. [facility] Other 08-25-2023 Evaluation note* Encounter Date Diagnosis Assessment Notes Treatment Notes Treatment Clinical Notes Nov, Type 2 diabetes mellitus with hy perglycemia (ICD-10 - E11.65) [facility] Other 08-14-2023 Reason for visit NarrativeTKM - REFERRAL UROLOGY - NEED TO INFORM PATIENT 11/28/22[facility] Other 08-10-2023 Evaluation note* Encounter Date Diagnosis [...] dysfunction (ICD-10 - N52.9) referral to urology [facility] Other 08-10-2023 Evaluation note* Encounter Date Diagnosis Assessment Notes Treatment Notes Treatment Clinical Notes Nov, Erectile dysfunction (ICD-10 - N 52.9) [facility] Other 07-03-2023 Evaluation note* Encounter Date Diagnosis [...] are maintaining regular scheduled appts with their rock crushing machine operator. No bleeding complications Oct,Type 2 diabetes [...] antigen) (ICD-10 - Z12.5)Yearly LADAN and PSA [facility] Other 05-08-2023 Evaluation note* Encounter Date Diagnosis Assessment Notes Treatment Notes Treatment Clinical Notes August, Type 2 diabetes mellitus with hy perglycemia (ICD-10 - E11.65) 1. Controlled, a Type 2 diabetes with A1c of 6.5% 2. Blood glucose levels according to Your Office Agent 2 cgm download 08/09/22-08/22/22: Avg glucose 157. [...] last visit, continue with weight loss efforts [facility] Other 04-03-2023 Evaluation note* Encounter Date Diagnosis Assessment Notes Treatment Notes Treatment Clinical Notes Jul, ASHD (arteriosclerotic heart dis ease) (ICD-10 - I25.10) This patient is stable without activity related CP, dyspnea or lightheadedness. They are instructedto continue exercise and AHA diet plan. Instructed to continue exercise 2-3x weekly. After completiong CR plans on continuing at [facility] Jul,rimary hypertension (ICD-10 - I10)This patient [...] (coronary artery bypass graft) (ICD-10 - Z95.1) [facility] Other 02-02-2023 Evaluation note* Encounter Date Diagnosis Assessment Notes Treatment Notes Treatment Clinical Notes May, Type 2 diabetes mellitus with hy perglycemia (ICD-10 - E11.65) 1. Controlled, a Type 2 diabetes with A1c of 6.9% 2. Blood glucose levels according to Your Office Agent 2 cgm download 05/06/22-05/19/22: Avg glucose 189. [...] many carbs while at work. 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 Pylori [facility] Other [id number] NotePROCEDURE: XR FOOT RT MIN 3 VIEWS [...] Electronically authenticated by: HEAVENLY LOUIS Date: 2022-02-25 06:39[facility]07-07-2022 Evaluation note* Encounter Date Diagnosis Assessment Notes Treatment Notes Treatment Clinical Notes Oct, Type 2 diabetes mellitus with hy perglycemia (ICD-10 - E11.65) 1. Uncontrolled, a Type 2 diabetes with A1c of 7.5% 2. Blood glucose levels above target. According to Your Office Agent 2 cgm download 10/08/21- 10/21/21: Avg [id number]. >250- 13%, >180-48%, 70-180-39%, <70-0%, <54-0%. CV [...] Oct,Vitamin B 12 deficiency (ICD-10 - E53.8) [facility] Other 04-27-2022 Evaluation note* Encounter Date Diagnosis [...] 3 days. Jul,Hematuria, unspecified (ICD-10 - R31.9) [facility] Other 03-15-2022 Evaluation note* Encounter Date Diagnosis Assessment Notes Treatment Notes Treatment Clinical Notes Jun, Type 2 diabetes mellitus with hy perglycemia (ICD-10 - E11.65) 1. Uncontrolled, a Type 2 diabetes with A1c of 7.4% 2. Blood glucose levels above target. According to Your Office Agent 2 cgm download 06/16/21- 06/29/21: Avg [id number]. >250- 1%, >180-38%, 70-180-61%, <70-0%, <54-0%. CV [...] 40.0-44.9, adult (ICD-10 - Z68.41) see above [facility] Other 01-18-2022 Evaluation note* Encounter Date Diagnosis Assessment Notes Treatment Notes Treatment Clinical Notes Apr, Type 2 diabetes mellitus with hy perglycemia (ICD-10 - E11.65) [facility] Other 12-08-2021 Evaluation note* Encounter Date Diagnosis Assessment Notes Treatment Notes Treatment Clinical Notes Mar, Type 2 diabetes mellitus with hy perglycemia (ICD-10 - E11.65) 1. Controlled, a Type 2 diabetes with A1c of 6.6% 2. Blood glucose levels improved from last visit. According to Your Office Agent 2 cgm download 03/11/21-03/24/21: Avg glucose 162. >250- 1%, >180-29%, 70-180-70%, <70- 0%, <54-0%. CV 22.5%. Reviewed download with pt. readings above target from missed meal dose or late meal dose. Discussed with pt trial lyumjev which he could take 5 minutes before meal up to 20 minutes after meal. He is agreeable, r eviewed this would take place of [employer]. He verbalizes understanding. Pt with history of [...] 40.0-44.9, adult (ICD-10 - Z68.41) see above [facility] Other 09-22-2021 Evaluation note* Encounter Date Diagnosis Assessment Notes Treatment Notes Treatment Clinical Notes Dec, Type 2 diabetes mellitus with hy perglycemia (ICD-10 - E11.65) Erwin came in today for evaluation of his Shivani report after returning to work and continuing to usethe device. Erwin is happy with the system and wants us to send a prescription to [facility] in [place]. Erwin's BG has averaged 163 for the [...] at MidNight. No further changes. [employer]Mapus JAKE, ORDER MANAGEMENT SPECIALIST-C, BC-ADM [facility] [employer] Other Chief complaint+Reason for visit Narrative* Reason for Visit BMI 38.0-38.9,adult Dietary counseling and surveillance Mixed hyperlipidemia Vitamin B 12 deficiency [facility] Work Phone: Evaluation + Plan noteExec[facility] Evaluation noteNo InformationNortLECOM Health [facility] [employer] Other Evaluation noteNo assessment information available [facility] Work Phone: Evaluation note* Diagnosis Screening for genitourinary condition Screening for other and unspecified genitourinary condition documented [facility] encounter [facility]* Diagnosis Coronary artery disease involving [place] coronary artery of [place] heart, unspecified whether angina present- Primary History of non-ST elevation myocardial infarction (NSTEMI) Old myocardial infarction Hx of CABG Postsurgical aortocoronary bypass status Primary hypertension Unspecified essential hypertension Other hyperlipidemia documented [facility]* Diagnosis Onset Date Resolution Status BMI 39.0-39.9,adult acuteDietary counseling and surveillanceacuteMixed hyperlipidemiaacuteVitamin B 12 deficiencyacuteChronic HFrEF (heart failure with reduced ejection fraction) acuteHypertensionacuteIschemic cardiomyopathyacuteParoxysmal atrial fibrillation acuteType 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 with diabetic polyneuropathyacuteType 2 diabetes mellitus with hyperglycemiaacute [facility] Work Phone: Evaluation note* Diagnosis Pre-operative examination- Primary Preoperative examination, unspecified Primary hypertension Unspecified essential hypertension Hyperlipidemia, unspecified hyperlipidemia type Coronary artery disease involving coronary bypass graft of [place] heart without angina pectoris Chronic systolic CHF [...] note 06/19/23 notes the following, Echo 03/30/22 ([facility]) - Global LV systolic function is difficult to assess but appears preserved, estimated ejection fraction is 55 to 60%, unable to accurately evaluate wall motion abnormalities. * Assessment & Plan Note - Kevin Goldsmith APRN.CNP - 07/27/2023 2:29 PM EDT Associated Problem(s): Coronary artery disease involving coronary bypass graft of [place] heart without angina pectoris CAD, hx of NM s/p CABG x 5 in Dec 2021. [...] cardiac events (< 1% chance of , NM, CHF, malignant ventricular arrhythmias or high grade [...] BP today 114/66. documented in this encounter [facility]* Diagnosis Acquired buried penis- Primary Other specified disorder of penis documented in this encounter [facility] note* Diagnosis Acquired buried penis- Primary Other specified disorder of penis Scarring of penis Other specified disorder of penis documented in this encounter [facility] note* Diagnosis Screening for genitourinary condition Screening for other and unspecified genitourinary condition documented in this encounter [facility] note* Diagnosis Onset Date Resolution Status Chronic HFrEF (heart failure with reduce d ejection fraction) acuteHypertensionacuteIschemic cardiomyopathyacuteMixed hyperlipidemiaacuteType 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 with diabetic polyneuropathyacuteType 2 diabetes mellitus with hyperglycemiaacuteScreening PSA (prostate specific antigen)noneactive Wellness examinationnoneactive [facility] Work Phone: Evaluation note* Diagnosis Onset Date Resolution Status Chronic HFrEF (heart failure with reduce d ejection fraction) acuteHypertensionacuteIschemic cardiomyopathyacuteMixed hyperlipidemiaacuteType 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 with diabetic polyneuropathyacuteType 2 diabetes mellitus with hyperglycemiaacuteScreening PSA (prostate specific antigen)noneactive Wellness examinationnoneactiveBMI 39.0-39.9,adultacuteDietary counseling and surveillanceacuteMixed hyperlipidemiaacuteVitamin B 12 [facility] Work Phone: Evaluation note* Diagnosis Onset Date Resolution Status BMI 38.0-38.9,adult acuteDietary counseling and surveillanceacuteMixed hyperlipidemiaacuteVitamin B 12 [facility] Work Phone: Evaluation note* Diagnosis Onset Date Resolution Status Admit Date BMI 38.0-38.9,adult acuteMay 2024 4:01pmDietary counseling and surveillanceacuteMa2024 4:01pmMixed hyperlipidemiaacuteMa2024 4:01pmVitamin B 12 deficiencyacute May 2024 4:01pmHTN (hypertension)deletedAugust 21, 2024 4:01pmType 2 diabetes mellitusdeletedMa2024 4:01pm [facility] Work Phone: History general Narrative - Reported* Type Description Date Medical History diabetes mellitus Medical HistoryhypertensionMedical HistorypancreatitisMedical HistoryHLPMedical HistoryR foot ulcerSurgical Historyheart stentSurgical HistoryRIGHT FOOT SECOND TOE AMPUTATED07/03Hospitalization Historysee aboveHospitalization HistoryGastric qpugqm95/2017 [facility] Other [employer] general Narrative - Reported* Type Description Date Medical History diabetes mellitus Medical HistoryhypertensionMedical HistorypancreatitisMedical HistoryHLPMedical HistoryR foot ulcerSurgical Historyheart stentSurgical HistoryRIGHT FOOT SECOND TOE AMPUTATED07/03Surgical History5 Bypass surgery [facility]12/31/2021 Hospitalization Historysee aboveHospitalization HistoryGastric uicsrt63/2017 [facility] [employer] Other [employer] general Narrative - Reported* Type Description Date Medical History Heart failure with preserved eje ction fraction Medical HistoryAcute prostatitisMedical HistoryASHD (arteriosclerotic heart disease)Medical HistoryBalanitisMedical HistoryTransient atrial fibrillation Medical HistoryUnspecified open wound of unspecified toe(s) with damage to nail, subsequent encounterMedical HistoryType 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 with diabetic polyneuropathy, unspecified whether skilled nursing insulin useMedical HistoryLong term current use of [...] of nephrolithiasisMedical HistoryHistory of pancreatitisSurgical History LAP [id number] HistoryRIGHT FOOT SECOND TOE AMPUTATED07/03 Surgical History5 Bypass surgery [facility], CABG.4-5 [facility]12/31/2021 Surgical HistoryLHC PTCA/STENT [id number] HistoryCOLONOSCOPYHospitalization Historysee aboveHospitalization HistoryGastric wahyjg52/2017[facility]20[facility] [employer] Other Hospital course Narrative No data available for this section [facility] Progress note No data available for this section [facility] Reason for referral (narrative) Referred by: Antonia BUSH MD [facility] Relrbs for referral (narrative)* Outpatient Procedure (Routine) - ClosedSpecialtyDiagnoses / ProceduresReferred By ContactReferred To ContactST. [facility] Diagnoses Coronary artery disease involving [place] coronary artery of [place] heart, unspecified whether angina present History of non-ST elevation myocardial infarction (NSTEMI) Hx of CABG Primary hypertension Other hyperlipidemia Procedures ECG COMPLETE ECG ROUTINE ECG W/LEAST 12 LDS W/I&R Ligia Colmenares MD [address] [place] [address] [facility] [address] [place] [address] Referral IDStatusReasonStart DateExpiration DateVisits RequestedVisits [id number] Auto-Generated Referral / [facility] CenterReason for referral (narrative)No reason for referral information availableTrinity Health System Work Phone: Chief Complaint and Reason for [...] pain/possible broken pelvis February 04, 2025 9:04am [facility] ACEVES LT HIP AVASCULAR NEC ROSIS WX February 10, 2025 8:56am Reason for Visit Admit Date BMI 37.0-37.9, adult November 27, 2024 3 :59pm Dietary counseling and surveillance [facility] 2024 3:59pm Mixed hyperlipidemia November 27, [...] finger of right hand (L02.511) Referral Organization [facility] Referring Provider First Name Fahad Referring Provider Last Name Yola Referring Provider Specialty Internal Me dicine Referred Organization [facility] Referred Provider Yarelis Santacruz Referred Address [address] [place],[address] Referred Provider Specialty Orthopedic S urgery Referral [...] Diagnosis 1 Erectile dysfunction (N52.9) Referral Organization [facility] Referring Provider First Name Yamilex Referring Provider Last Name Bull Referring Provider Specialty Nurse Pract itioner Referred Organization Unknown Facility Referred Provider Antonia Bush Referred Provider Specialty Urology Referral Priority Routine Referral Appointment Date 2023-03-22 General Notes Tracie Alvarado 11/15 08:20:19 AM >Spoke to Poonam and patient scheduled for Guy office on 03/22/23 at 11am at [address] in [facility]. Jenny Tracie 11/28/2022 09:35:22 AM >Text message sent to patient requesting he call me for Referral details. Tracie Alvarado 11/28/2022 12:00:13 PM >Patient returns my call and is informed of appt. Reason Left great toe wound from new work boots - appt needs to be after 2pm Diagnosis 1 Type 2 diabetes david itus with hyperglycemia (E11.65) Referral Organization [facility] Referring Provider First Name Yamilex Referring [...] [facility] Diagnoses Coronary artery disease involving [place] coronary artery of [place] heart, unspecified whether angina present History of non-ST elevation myocardial infarction (NSTEMI) Hx of CABG Primary hypertension Other hyperlipidemia Procedures ECG COMPLETE ECG ROUTINE ECG W/LEAST 12 LDS W/I&R Ligia Colmenares MD [address] [address] [facility] [address] [place] [address] Referral IDStatusReasonStart DateExpiration DateVisits RequestedVisits [id number] Auto-Generated Referral [id number] VisitReasonCommentsPost-Op Visit Care Teams (unrecognized sec tion [...] 2024 Team Status: Inactive Member Role Status Vainca Aceves DO Primary Care Provide r, Attending [...] Role Status Dates Tona Nba Foster , [employer] WORKER Attending Provider Active Start: March 08, 2023 [...] Antonia Bush [address] [place] [address] UmkqjdhwmIrlqsvj60/9/23Team MemberRelationshipSpecialtyStart DateEnd Date Antonia Bush [address] [place] [address] JbmliutteGahqeyp67/9/23Team MemberRelationshipSpecialtyStart DateEnd Date Antonia Bush [address] [place] [address] IroiuecnyIqicyzg15/9/23 Team Status: Active Member Role Status Dates [...] Fahad Aceves DO [address] [place] [address] PCP - GeneralInternal Medicine07/18/23 Antonia Bush [address] [address] BsdxozadgLbsxyce66/9/23Team MemberRelationshipSpecialtyStart DateEnd Date Fahad Aceves DO [address] [place] [address] PCP - GeneralInternal Medicine07/18/23 Antonia Bush MD [address] [address] JzbjxllhlQnetmok87/9/23Team MemberRelationshipSpecialtyStart DateEnd Date Fahad Aceves DO [address] [place] [address] PCP - GeneralInternal Medicine07/18/23 Antonia Bush MD [address] [place] [address] NvahmippgVslxwjv50/9/23Team MemberRelationshipSpecialtyStart DateEnd Date Fahad Aceves DO [address] [place] [address] [facility] - [facility]23 Antonia Bush MD [address] [place] [address] CztturvwhEdflwsm27/9/23Team MemberRelationshipSpecialtyStart DateEnd Date Fahad Aceves DO [address] [place] [address] PCP - [facility]07/18/23 Antonia Bush MD [address] [address] MbiecvhbaJdepopg45/9/23Team MemberRelationshipSpecialtyStart DateEnd Date Fahad Aceves DO [address] [place] [address] PCP - [facility]07/18/23 Antonia Bush MD [address] [address] JloanzvjfLjqjujd66/9/23 Team Status: Inactive Member Role Status Dates [...] section and content) DATE CREATED AUTHOR 08/31/2022 [facility] DATE CREATED AUTHOR AUTHOR'S ORGANIZ ATION 06/01/2023 [facility] DATE CREATED AUTHOR AUTHOR'S ORGANIZ ATION 09/19/2023 [facility] DATE CREATED AUTHOR AUTHOR'S ORGANIZ ATION 01/16/2024 [facility] DATE CREATED AUTHOR AUTHOR'S ORGANIZ ATION 07/13/2024 [facility] Source Comments (unrecognize d section and content) In the event this informatio n is protected by the Federal Confidentiality of Alcohol and Drug Abuse Patient Records regulations: The Federal rules restrict any use of the information to criminally investigate or prosecute any alcohol or drug abuse patient.[facility] HospitalIn the event this information is protected by the Federal Confidentiality of Alcohol and Drug Abuse Patient Records regulations: The Federal rules restrict any use of the information to criminally investigate or prosecute any alcohol or drug abuse patient.[facility] HospitalIn the event this information is protected by the Federal Confidentiality of Alcohol and Drug Abuse Patient Records regulations: The Federal rules restrict any use of the information to criminally investigate or prosecute any alcohol or drug abuse patient.[facility] HospitalIn the event this information is protected by the Federal Confidentiality of Alcohol and Drug Abuse Patient Records regulations: The Federal rules restrict any use of the information to criminally investigate or prosecute any alcohol or drug abuse patient.[facility] HospitalIn the event this information is protected by the Federal Confidentiality of Alcohol and Drug Abuse Patient Records regulations: The Federal rules restrict any use of the information to criminally investigate or prosecute any alcohol or drug abuse patient.[facility] HospitalIn the event this information is protected by the Federal Confidentiality of Alcohol and Drug Abuse Patient Records regulations: The Federal rules restrict any use of the information to criminally investigate or prosecute any alcohol or drug abuse patient.[facility] HospitalIn the event this information is protected by the Federal Confidentiality of Alcohol and Drug Abuse Patient Records regulations: The Federal rules restrict any use of the information to criminally investigate or prosecute any alcohol or drug abuse patient.[facility] HospitalIn the event this information is protected by the Federal Confidentiality of Alcohol and Drug Abuse Patient Records regulations: The Federal rules restrict any use of the information to criminally investigate or prosecute any alcohol or drug abuse patient.[facility] HospitalIn the event this information is protected by the Federal Confidentiality of Alcohol and Drug Abuse Patient Records regulations: The Federal rules restrict any use of the information to criminally investigate or prosecute any alcohol or drug abuse patient.[facility] HospitalIn the event this information is protected by the Federal Confidentiality of Alcohol and Drug Abuse Patient Records regulations: The Federal rules restrict any use of the information to criminally investigate or prosecute any alcohol or drug abuse patient.[facility] HospitalIn the event this information is protected by the Federal Confidentiality of Alcohol and Drug Abuse Patient Records regulations: The Federal rules restrict any use of the information to criminally investigate or prosecute any alcohol or drug abuse patient.[facility] FOR RECORDS PERTAINING TO PATIENTS WHO [...] BASED ON THE PRIMARY CLINICAL RECORDS. [facility]. provides no warranty or guarantee of the accuracy or completeness of information in this document.
== END 2025-03-20 09:55 | disposition home or self-care (01) ==
LOC: LAB 09:54
PROVIDERS: PCP Internal Medicine; Visit Provider Orthopaedic Surgery Orthopaedic Trauma
DX: Z01.812 Encounter for preprocedural laboratory examination (principal); M25.552 Pain in left hip; M87.88 Other osteonecrosis, other site; I10 Essential (primary) hypertension; E11.9 Type 2 diabetes mellitus without complications; I25.10 Atherosclerotic heart disease of native coronary artery without angina pectoris; I25.2 Old myocardial infarction
CPT/HCPCS: 36415; 86850; 86900; 86901

== ENCOUNTER 2025-03-24 06:10 | Day surgery (SDC) | payer OTHER, SELFPAY ==
[2025-03-04 09:54] VITALS: BP 125/76; PULSE 72; TEMP 36.3; O2SAT 97; BMI 36.8
--- OUTSIDE RECORDS SUMMARY | 2025-03-12 14:00 | XMS_ITS | Encounter Summary ---
Author Organization [facility] Address [address] [place] [address] Care Team Providers Care Supervisor Prepress Name Role Phone Fahad Salinas DO Primary Care Provider [phone] Reason for Visit * ReasonCommentsFollow-upPatient is here today for a follow up along with surgery clearance for left hip replacement with Dr. Rosario. Patient states he feels pretty good. Patient denies chest pain, SOB/NDIAYE, lightheaded/dizziness, racing heart/palpitations, fatigueNSTEMIHypertensionHyperlipidemiaAtrial FibrillationPost opCoronary Artery DiseaseCongestive Heart Failure Encounter Details DateTypeDepartmentCare Team (Latest Contact Info)Whzvqqjmkji34/26/2025 2:00 PM ESTOffice Visit [facility] [address] [phone] Rosa Lino CNP [address] [place] [id number] Coronary artery disease involving [place] coronary artery of [place] heart without angina pectoris (Primary Dx); History of coronary artery bypass graft; Pre-op evaluation; Postoperative atrial fibrillation (CMS/HCC); Heart failure with improved ejection fraction (HFimpEF) (CMS/HCC); History of myocardial infarction; Mixed hyperlipidemia; Chronic systolic congestive heart failure (CMS/HCC) Social History Tobacco UseTypesPacks/DayYears [...] part ner or ex-partner?No12/31/2021ocial Connection and Isolation PanelAnswerDate RecordedIn a typical week, how many times do you talk on the phone with family, friends, or neighbors?Twice a week12/31/2021How often do you get together with friends or relatives?Twice a week12/31/2021How often do you attend worship or latter day services?1 to 4 times per year2Do you belong to any clubs or organizations such as worship groups, unions, fraEverdream or athletic groups, or school groups?No12/31/2021How often do you attend meetings of the clubs or organizations you belong to?Never12/31/2021re you , , , , never , or living with a partner?Bisnrrm3712/31/2021UDIT-C AnswerDate RecordedQ1: How often do you have a drink containing alcohol?Monthly or less12/31/2021Q2: How many drinks containing alcohol do you have on a typical day when you are drinking?1 or Q3: How often do you have six or more drinks on one occasion?Never12/31/2021verall Financial Resource Strain (CARDIA) AnswerDate RecordedHow hard is it for you to pay for the very basics like food, housing, medical care, and heating?Not hard at all12/31/2021[facility] [place] [facility] Occup[facility] - Occupational Stress QuestionnaireAnswerDate RecordedDo you feel stress - tense, restless, nervous, or anxious, or unable to sleep at night because yourmind is troubled all the time - these days?Not at all12/31/2021 Exercise Vital SignAnswerDate RecordedOn average, how many days per week do you engage in moderate to strenuous exercise (like a brisk walk)?0 days12/31/2021n average, how many minutes do you engage in exercise at this level?0 min 12/31/2021Hunger Vital SignAnswerDate RecordedWithin the past 12 months, you worried that your food would run out before you got the money to buymore.Never true12/31/2021an Out of Food in the Last YearNot [...] steady place to sleep or slept in [facility] (including now)?12/31/2021UT Safety & EnvironmentAnswerDate RecordedFear of Current or Ex-PartnerNot on 06/08/2023Emotionally AbusedNot on file06/08/2023hysically AbusedNot on file06/08/2023Sexually AbusedNot on file06/08/2023hysically or Sexually AbusedNot on file06/08/2023Sex and Gender InformationValueDate RecordedSex Assigned at GbrjnCzql74/16/2022 10:49 PM EDT Legal GgiWwgs4312/31/2021 2:52 PM EDTGender UmkotyonJyky06/16/2022 10:49 PM EDT Sexual OrientationHeterosexual or Hrfoiouv51/16/2022 10:49 PM EDTdocumented as of this encounter Last Filed Vital Signs Vital SignReadingTime TakenCommentsBlood Fmgtxuda753/6711 2:11 PM EST Otpny250503/12/2025 2:11 PM ESTTemperature--Respiratory Rate--Oxygen Jisovtankk96% 03/12/2025 2:11 PM ESTInhaled Oxygen Concentration--Uxbvun775 kg (268 lb) 03/12/2025 2:11 PM VALJilwjc987.8 cm (5' 10 )03/12/2025 2:11 PM ESTBody Mass Index38.45105/12/2024 2:11 PM ESTdocumented in this encounter Patient Instructions * Patient Instructions* Rosa Lino CNP - 03/12/2025 2:00 PM EST *Ok to hold plavix 5-7 days prior to surgery *Recommend to continue aspirin prior to surgery unless surgeon feels bleeding risk is too high thenmay hold 5 days prior. documented in this encounter Progress Notes * Rosa Lino CNP - 03/12/2025 2:00 PM EST Images from the original note were not included. Cardiovascular Medicine [facility] SUBJECTIVE Chief Complaint Patient presents with Follow-up Patient is here today for a follow up along with surgery clearance for left hip replacement with Dr. Rosario. Patient states he feels pretty good. Patient denies chest pain, SOB/NDIAYE, lightheaded/dizziness, racing heart/palpitations, fatigue NSTEMI Hypertension Hyperlipidemia Atrial Fibrillation Post op Coronary Artery Disease Congestive Heart Failure Dominik Ballard is a 65 y.o. male here for follow-up. PMHx: coronary disease status post percutaneous intervention to chronically occluded LAD in 2007. Additional history includes diabetes, hypertension and hyperlipidemia. He was admitted in December 2021 to [facility] with chest pain and diagnosed with NSTEMI. Cardiac catheterization on 01/03/2022 showed severe three- vessel coronary artery disease. He was referred for bypass surgery. This was performed on 01/07/2022. Postoperatively he developed atrial fibrillation and was treated with amiodarone. He converted to sinus rhythm. HPI 03/12/2025 He denies any changes from a cardiac standpoint. He is pending left hip replacement on 03/24/25. He states he could walk a flight of stairs without feeling SOB or chest pain. Denies c/o CP, dyspnea, orthopnea, PND, LE edema, dizziness/LH, palpitations, syncope. Problem List[1] Medical History[2] Family History[3] Social History[4] Allergies[5] OBJECTIVE Visit Vitals BP 121/67 (BP Location: Right arm, Patient Position: Sitting) Pulse 70 Ht 1.778 m (5' 10 ) Wt 122 kg (268 lb) SpO2 94% BMI 38.45 kg/m?? Smoking Status Never BSA 2.45 m?? Medications: Current Medications[6] Physical Exam Constitutional: Appearance: He is well-developed. [...] Behavior: Behavior is cooperative. Judgment: Judgment normal. Labs: Lab Results Component Value Date BNP 276 (H) 01/01/2022 No visits with results within 6 Month(s) from this visit. Latest known visit with results is: No results displayed because visit has over 200 results. 02/04/2025 Hgb 17, plt 313 Cr 0.69, BUN 15, eGFR > 60, K 4, Na 138, AST 27, ALT 39 Chol 154, trig 251, LDL 67, HDL 37 Blood testing 01/20/2024: Apolipoprotein B 68 [desirable less than 90]. LP(a) less than 8.4. Triglycerides 133, cholesterol 107, HDL 32, LDL 49. Blood testing 06/19/2023: Triglycerides 215, cholesterol 141, LDL 66, HDL 32. Blood testing 2023: Hemoglobin 16.4, platelets 329. LFTs normal, potassium 4.3, BUN 20, creatinine 0.84, EGFR more than 60, triglycerides 257, cholesterol 184, HDL 33, LDL 100. Blood testing 02/16/2022: NT-proBNP 335. Hemoglobin 14.3, platelets 485, potassium 4.5, BUN 21, creatinine 1.14, cholesterol 110, HDL 28, triglycerides 304, LDL 21. Testing/Procedures: Echocardiogram 06/20/2024: The left ventricle is normal in size and exhibits low normal systolic function. Estimated LVEF is 50%. Normal right ventricular size and systolic function. No significant valvular dysfunction. Unable to assess right-sided pressures due to lack of measurable tricuspid regurgitation. Event monitor 04/05/2022 - 05/04/2022: Sinus rhythm with no significant arrhythmias seen Echocardiogram 03/30/2022: Global LV systolic function is difficult to assess but appears preserved, estimated ejection fraction is 55 to 60%, unable to accurately evaluate wall motion abnormalities.Consider contrast study for better delineation of some endocardial borders. Diastolic function is indeterminate. Biatrial enlargement. The right ventricle is normal in size and systolic function. Valves are poorly seen, no significant valvular abnormalities. The ascending aorta is upper normal limits in size. Echocardiogram 01/03/2022: Left Ventricle: The left ventricular apex appears akinetic. The left ventricle appears enlarged. Global left ventricular systolic function is difficult to assess but appears reduced. Left ventricular wall thickness is normal. Regional wall motion abnormalities (see diagram). Diastolic dysfunction was indeterminate. No left ventricular hypertrophy. Right Ventricle: The right ventricle appears normal in size. Right ventricular systolic function appears normal. Left Atrium: The left atrium appears normal in size. Overall Conclusions: Due to suboptimal imaging Lumason contrast was administered for opacification and better delineation of endocardial borders. No significant valvular abnormalities Carotid duplex 01/04/2022: Right: The ICA is in the range of 0 to 15 percent with intiminal thickening. There is no significant spectral Doppler or color flow disturbances. Antegrade vertebral artery flow. Left: Stenosis in the left internal carotid artery (83/19 cm/sec) in the range of 1-49 percent. Antegrade vertebral artery flow. ECG 01/12/2022: Normal sinus rhythm, Low voltage QRS, Cannot rule out Anterior infarct (cited on or before 08-JAN-2022) Abnormal ECG CABG 01/07/2022: * CABG X 5; CPB; LEFT LEG VEIN HARVEST; INTRAOP FREDI Coronary artery bypass grafting x5, AGARWAL to LAD, saphenous vein graft to diagonal and obtuse marginal branches, and saphenous vein graft to PDA and right posterolateral ventricular branch. Intra-Operative FREDI 01/07/2022: Right Ventricle: Cavity size normal. Hypertrophy not present. Thrombus not present. Global function severely impaired. Ejection Fraction 35%. Left Ventricle: Cavity size normal. Hypertrophy not present. Thrombus not present. Global Function severely impaired. ASSESSMENT/PLAN: Diagnoses and all orders for this visit: Coronary artery disease involving [place] coronary artery of [place] heart without angina pectoris History of coronary artery bypass graft Pre-op evaluation Postoperative atrial fibrillation (CMS/HCC) Heart failure with improved ejection fraction (HFimpEF) ([facility]) History of myocardial infarction Mixed hyperlipidemia Chronic systolic congestive heart failure (CMS/HCC) #CAD status post bypass surgery 2021 -He denies c/o CP or dyspnea -Continue aspirin, statin, ezetimibe 10 mg daily, plavix, Toprol 100mg daily #Postoperative atrial fibrillation -event monitor March 2022 did not show any recurrence of atrial fibrillation and given that thiswas a postoperative atrial fibrillation, anticoagulation and amio stopped. -currently maintained on aspirin 81 mg daily. #HTN -well controlled -Continue Entresto, Toprol #Heart failure with improved ejection fraction -Recent echocardiogram June 2024 that showed LVEF 50% with no significant valvular abnormalities. -He appears compensated/euvolemic on eam -GDMT: Continue current spironolactone, metoprolol succinate, Farxiga and Entresto. -Yearly follow-up ECHO due in 6 months #Cardiac risk stratification -RCRI: 2 points, RCRI Score 5 % Risk of major cardiac event -s/p CABG 2021 -ECHO 06/2024: preserved LVEF, no significant valve dysfunction -EKG 03/04/2025 with no ischemic changes -He reports METS >4 -He is low to intermediate risk for cardiovascular complication for an intermediate risk procedure.No objections to his upcoming hip surgery. -Okay to hold plavix 5-7 days prior and resume as soon as cleared by surgeon. Recommend continuing aspirin tigre-op unless bleeding risk is too high, then may hold for 5 days prior. Please avoid largeamounts of IV fluids given hx of heart failure. If he is doing well after surgery and ECHO is unremarkable, Follow up in about 1 year (around 03/12/2026). Rosa Lino CNP [facility] Cardiovascular Medicine [1] Patient Active Problem List Diagnosis Chest pain NSTEMI (non-ST elevated myocardial infarction) ([facility]) Obesity Diabetes mellitus, type II, insulin dependent ([facility]) Respiratory insufficiency Hypomagnesemia Hypertension Hyperlipidemia Postoperative atrial fibrillation ([facility]) Coronary artery disease involving [place] coronary artery of [place] heart without angina pectoris Chronic systolic heart failure ([facility]) History of coronary artery bypass graft Acquired buried penis Erectile dysfunction associated with type 2 diabetes mellitus ([facility]) Scarring of penis Anticoagulated Balanoposthitis GERD (gastroesophageal reflux disease) Hidden penis Phimosis Type 1 diabetes ([facility]) Accidental fall Acquired hammer toe of left foot Acquired hammer toe of right foot Avascular necrosis of bone of left hip ([facility]) Balantidiasis Callosity Cellulitis of right toe Contusion of finger with damage to nail Crush injury of foot Heart failure with improved ejection fraction (HFimpEF) ([facility]) Ischemic cardiomyopathy 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 Low back pain Non-pressure chronic ulcer of other part of right foot limited to breakdown of skin ([facility]) Osteoarthritis of foot, left Pain in joint involving left pelvic region and thigh Dietary counseling and surveillance Screening PSA (prostate specific antigen) Non-pressure chronic ulcer of other part of right foot with fat layer exposed ([facility]) Type 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 with diabetic polyneuropathy ([facility]) Type 2 diabetes mellitus with foot ulcer ([facility]) Type 2 diabetes mellitus with hyperglycemia ([facility]) Vitamin B 12 deficiency [2] Past Medical History: Diagnosis Date Coronary artery disease Diabetes mellitus ([facility]/HCC) Hyperlipidemia Hypertension Myocardial infarction ([facility]) 2008 [3] Family History Problem Relation Name Age of Onset Coronary artery disease Father [4] Social History Tobacco Use Smoking status: Never Smokeless tobacco: Never Vaping Use Vaping status: Never Used Substance Use Topics Alcohol use: Not Currently Alcohol/week: 2.0 standard drinks of alcohol Types: 2 Cans of beer per week Drug use: Never [5] Allergies Allergen Reactions Empagliflozin Unknown Icosapent Ethyl Unknown [6] Current Outpatient Medications: acetaminophen (Tylenol) 325 mg tablet, Take 2 tablets (650 mg) by mouth every 6 (six) hours if needed for mild pain (1-3 pain score) for up to 278 doses., Disp: 30 tablet, Rfl: 0 aspirin 81 mg EC tablet, Take 81 mg by mouth in the morning., Disp: , Rfl: atorvastatin (Lipitor) 80 mg tablet, Take 1 tablet (80 mg) by mouth at bedtime for 92 doses., Disp:30 tablet, Rfl: 0 clopidogrel (Plavix) 75 mg tablet, Take 75 mg by mouth in the morning., Disp: , Rfl: ezetimibe (Zetia) 10 mg tablet, TAKE 1 TABLET BY MOUTH EVERY DAY IN THE MORNING, Disp: 90 tablet, Rfl: 3 famotidine (Pepcid) 40 mg tablet, TAKE 1 TABLET BY MOUTH EVERY DAY AT BEDTIME FOR 90 DAYS, Disp: , Rfl: Farxiga 10 mg, TAKE 1 TABLET BY MOUTH EVERY DAY IN THE MORNING, Disp: 90 tablet, Rfl: 3 gabapentin (Neurontin) 100 mg capsule, Take 100 mg by mouth at bedtime., Disp: , Rfl: insulin aspart (NovoLOG) 100 unit/mL injection, Inject 25 Units under the skin in the morning, at noon, and at bedtime. Patient states always uses 25 units, but sometimes will add 2 units per blood sugar parameters., Disp: , Rfl: insulin glargine (Toujeo Max Solostar, 2 unit dial,) 300 unit/mL (3 mL) injection, Inject 300 Unitsunder the skin at bedtime., Disp: , Rfl: Clifton Vaughn U-200 Insulin 200 unit/mL (3 mL) insulin pen, PLEASE SEE ATTACHED FOR DETAILED DIRECTIONS, Disp: , Rfl: metFORMIN (Glucophage) 500 mg tablet, Take 500 mg by mouth with breakfast and with evening meal. With lunch and supper, Disp: , Rfl: metoprolol succinate XL (Toprol-XL) 100 mg 24 hr tablet, TAKE 1 TABLET BY MOUTH IN THE MORNING AND 1 TABLET AT BEDTIME, Disp: 180 tablet, Rfl: 3 pantoprazole (ProtoNix) 40 mg EC tablet, Take 40 mg by mouth before breakfast., Disp: , Rfl: potassium chloride CR (Klor-Con M20) 20 mEq ER tablet, Take 1 tablet (20 mEq) by mouth in the morning and at bedtime. Do not crush or chew., Disp: 180 tablet, Rfl: 3 sacubitril-valsartan (Entresto) 24-26 mg tablet, TAKE 1 TABLET BY MOUTH TWICE A DAY IN THE MORNING AND IN THE EVENING, Disp: 60 tablet, Rfl: 4 sildenafil (Viagra) 100 mg tablet, Take 100 mg by mouth if needed., Disp: , Rfl: spironolactone (Aldactone) 25 mg tablet, TAKE 1 TABLET BY MOUTH EVERY DAY IN THE MORNING, Disp: 90 tablet, Rfl: 3 docosahexaenoic acid/epa (FISH OIL ORAL), Take 1,000 mg by mouth in the morning. (Patient not taking: Reported on 03/12/2025), Disp: , Rfl: insulin detemir (Levemir) 100 unit/mL injection, Inject 40 Units under the skin in the morning and at bedtime for 184 doses. (Patient not taking: Reported on 03/12/2025), Disp: 10 mL, Rfl: 0 documented in this encounter Plan of Treatment Not on file documented as of this encounter Goals GoalPatient Goal TypeAssociated ProblemsRecent ProgressPatient-Stated?Author Blood Pressure < 140/90 Blood Nkfgazzj661/67(03/12/2025 2:11 PM EST)Ozzie Avendano CNPdocumented as of this encounter Visit Diagnoses Diagnosis Coronary artery disease involving [place] coronary artery of [place] heart without angina pectoris- Primary History of coronary artery bypass graft Postsurgical aortocoronary bypass status Pre-op evaluation Postoperative atrial fibrillation (CMS/HCC) Heart failure with improved ejection fraction (HFimpEF) (CMS/HCC) History of myocardial infarction Mixed hyperlipidemia Chronic systolic congestive heart failure (CMS/HCC) documented in this encounter Care Teams Team MemberRelationshipSpecialtyStart DateEnd Date Fahad Salinas DO [address] [place] [phone] [facility] - General12/31/21documented as of this encounter
[2025-03-24] VITALS (16 sets, daily range): BP systolic 95–137; BP diastolic 53–80; PULSE 58–71; TEMP 36.3–36.8; O2SAT 93–100; BMI 38.5
--- OUTSIDE RECORDS SUMMARY | 2025-03-24 06:14 | XMS_ITS | CCD ---
Author Organization [facility] Care Team Providers Care Punch Press Feeder Name Role Phone Yamilex Foster Unavailable Celestina Greene Unavailable DO Fahad Aceves Primary Care Provider JAKE Foster Attending Provider [phone] Fahad Aceves Unavailable YOLA, DR GUSTAFSON Primary [...] Santacruz Unavailable YAMILEX FOSTER Primary Care Physician [phone] Antonia Bush Unavailable DO Fahad Aceves Primary Care Provider MapusJAKE Attending Provider [phone] Yamilex Foster Attending Unavailable Yamilex Foster Admitting Unavailable Fahad Aceves Primary Care Unavailable Fahad Aceves DO Primary Care Provider Antonia Bush MD Unavailable [phone] Fahad Aceves DO Primary Care Provider YAMILEX [...] YOLA, FAHAD E Primary Care Unavailable BALL, FAAHD E Primary Care Unavailable JIAN ALBERTO Admitting UnavailJIAN Omalley Attending Unavailabl e BINA, SIMBA Attending Unavailable CAROLINE SILVA Attending Unavailable Ball Fahad ROMERO Primary Care Provider [facility] ENRICH[facility] DIRECTORYamilex Ponce Attending Provider Provider, Outside Attending Provider Unavailable Fahad Aceves DO Attending Provider Fahad Aceves DO Primary Care Provider Yamilex Foster APRN Attending Provider Fahad Aceves DO Primary Care Provider Fahad Aceves DO Attending Provider MarleneRashel nye DO Attending Provider Allergies Allergy ClassificationReported Allergen(s)Allergy TypeDate of OnsetReaction(s) Facility (20 sources)empagliflozinDrug Jqsbmtf34-97-3659dlyKzjjfcytwUniversity [facility]als [facility] (20 sources)icosapent ethylDrug Tgbchnn78-37-5981t/[facility] (1 source)empagliflozinDrug Dmspzfv65-90-4650SzyxjgwgfAv[facility] (1 source)icosapent ethylDrug Irtclln10-72-5358WfnnrusxoAvita Health System Repository Medications Current Medications MedicationDrug Class(es)DatesSig (Normalized)Sig (Original)acetaminophen 325 mg oral tablet (11 sources)Start: 66-71-5039dacc 2 tablets by mouth every six hours as needed acetaminophen (TYLENOL) 325 mg tablet Take 650 mg by mouth every 6 hours as needed. 01/15/2022 ActiveComment on above:Take 650 mg by mouth every 6 hours as needed.amiodarone hydrochloride 200 mg oral tablet (20 sources)AntiarrhythmicStart: 90-22-9243ozpb 1 tablet by mouth once daily Amiodarone 200 mg tablet Active 0 .ROUTE .COMPLEX 90 3 June 13, 2024 8:37am TAKE 1 TABLET BY MOUTH EVERY DAY Complies with drug therapyStart: 02-07-2024 End: 46-15-8033oqgt 1 tablet by mouth once dailyAmiodarone 200 mg tablet Discontinued 200 MG PO Daily February 07, 2024 12:00am June 13, 2024 8:37amStart: 08-10-5260bbmp 1 tablet by mouth once dailyamiodarone (PACERONE) 200 mg tablet Take 1 tablet by mouth once daily. 06/21/2023 ActiveStart: 03-24-2023 End: 90-23-6285ysrj 1 tablet by mouth onceamiodarone (PACERONE) 200 mg tablet Take 1 tablet by mouth every afternoon. 0 03/24/2023 06/19/2023iscontinued Comment on above:Take 1 tablet by mouth every afternoon.Take 1 tablet by mouth once daily.amoxicillin 875 mg / clavulanate 125 mg oral tablet (2 sources)Penicillin-class AntibacterialStart: 11-50-4872ujpp 1 tablet by mouth every twelve hoursAmoxicillin-Pot Clavulanate 875-125 MG 1 tablet Orally every 12 hrs for 7 days Jan, Activeapixaban 5 mg oral tablet (16 sources)Factor Xa Inhibitortake 1 tablet by mouth every twelve hoursEliquis 5 MG 1 tablet Orally Twice a day Activeaspirin 81 mg delayed release oral tablet (20 sources)Platelet Aggregation Inhibitor, Nonsteroidal Anti-inflammatory Drug Start: 69-87-8546Ofgumdp (Lucio Low Dose Aspirin) 81 mg Tablet,Delayed [...] tablet (20 sources)HMG-CoA Reductase InhibitorStart: 12-18-2023 End: 74-33-6862jjmv 1 tablet by mouth once daily in the eveningAtorvastatin 80 mg tablet Active 0 .ROUTE .COMPLEX 90 3 December 11, 2024 7:40am TAKE 1 TABLET BY MOUTH EVERY DAY IN THE EVENING Complies with drug therapyStart: 03-22-2023 End: 49-05-0705ngng 1 tablet by mouth once dailyAtorvastatin 80 mg tablet Discontinued 80 MG PO Daily June 21, 2023 1:00am December 18, 2023 8:42am Comment on above:Take 80 mg by mouth every evening.Blood-Glucose Sensor (Freestyle Shivani 2 Plus Sensor) device (3 sources)Start: 21-78-1353Iuwgg-Glucose Sensor (Freestyle Shivani 2 Plus Sensor) device Active 0 .Route 6 3 November 01, 2024 12:00am Type 2 diabetes mellitus with hyperglycemia Type 2 diabetes mellitus with hyperglycemia residential (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 Use to monitor BG, Change every 15 daysStart: 88-25-1942Bozav- Glucose Sensor (Freestyle Shivani 2 Plus Sensor) device Active 0 .Route 6 November 01, 2024 12:00am Use to monitor BG, Change every 15 daysbumetanide 1 mg oral tablet (20 sources)Loop DiureticStart: 85-29-1669iunb 1 tablet by mouth once daily Bumetanide 1 mg tablet Active 1 MG PO Daily June 21, 2023 1:00am Complies with drug therapyStart: 39-85-5174czol 1 tablet by mouth every twenty-four hours Bumetanide 1 MG 1 tablet Orally Once a day for 30 days Apr, Active End: 22-39-6853lvmjvyqzwd (BUMEX ORAL) Take by mouth. 0 07/27/2023 Discontinued (Discontinued by Patient)bumetanide (BUMEX ORAL) Take by mouth. 0 Activetake 1 tablet by mouth once dailyBumex 1 MG 1 tablet Orally Once a day ActiveComment on above:Take by mouth.cephalexin 500 mg oral capsule (1 source)Cephalosporin AntibacterialStart: 07-29-2023 End: 69-80-9852nzxe 1 capsule by mouth twice dailycephALEXin (KEFLEX) 500 mg capsule Take 1 capsule by mouth two times a day. 60 capsule 0 07/29/2023 08/28/2023 ActiveComment on above:Take 1 capsule by mouth two times a day. cinnamon bark 500 mg oral capsule (13 sources)Start: 68-95-9791nqvx 1 capsule by mouth twice dailyCinnamon Bark (Cinnamon) 500 mg Capsule Active 500 MG PO Twice daily June 26, 2018 12:00am DM Complies with drug therapyclopidogrel 75 mg oral tablet (20 sources)P2Y12 Platelet InhibitorStart: 38-76-9215rkfu 1 tablet by mouth once dailyClopidogrel 75 mg tablet Active 75 MG PO Daily May 15, 2024 1:00am Complies with drug therapyStart: 06-26-2018 End: 13-00-8517Ldnujvaainu 75 mg tablet Discontinued 75 MG PO 1200 June 26, 2018 12:00am June 21, 2023 5:28pmdocusate sodium 100 mg oral capsule (1 source)Start: 07-29-2023 End: 21-26-4038igyr 1 capsule by mouth twice dailydocusate sodium (COLACE) 100 mg capsule Take 1 capsule by mouth two times a day. 60 capsule 0 07/29/2023 08/28/2023 ActiveComment on above:Take 1 capsule by mouth two times a day. ezetimibe 10 mg oral tablet (20 sources)Dietary Cholesterol Absorption InhibitorStart: 12-42-3310xwdp 1 tablet by mouth once dailyEzetimibe 10 mg tablet Active 10 MG PO Daily June 21, 2023 1:00am Complies with drug therapyStart: 37-65-9160mhkr 1 tablet by mouth every twenty-four hoursEzetimibe 10 MG 1 tablet Orally Once a day for 30 days Apr, ActiveComment on above:Take 10 mg by mouth every morning. famotidine 40 mg oral tablet (20 sources)Histamine-2 Receptor AntagonistStart: 83-73-1811ahqo 1 tablet by mouth once daily at bedtimeFamotidine 40 mg tablet Active 40 MG PO Daily at bedtime June 21, 2023 1:00am Complies with drug therapyStart: 30-63-3262lebr 1 tablet by mouth every twenty-four hoursFamotidine 40 MG 1 tablet at bedtime Orally Once a day Apr, ActiveFish Oils (19 sources)Fish Oil ActiveFreeStyle Shivani 2 Sensor - (20 sources)Start: 06-13-3118OpxiRummy Shivani 2 Sensor - as directed In Vitro Change Every 14 days for 84 days Dec, ActiveFreeStyle Shivani 2 Sensor - CHANGE EVERY 14 DAYS for 84 Activegabapentin 100 mg oral capsule (20 sources)Anti-epileptic AgentStart: 38-63-8785iaqq 2 capsules by mouth once dailyGabapentin 100 mg capsule Active 200 MG PO Daily 60 13 09July 10, 2024 12:18pm Complies with drug therapyStart: 06-17-2024 End: 67-73-0216smmj 1 capsule by mouth at bedtimeGabapentin 100 mg capsule Discontinued 0 .ROUTE .COMPLEX 30 June 17, 2024 8:44am July 10, 2024 12:19pm TAKE 1 CAPSULE BY MOUTH AT BEDTIMEStart: 04-23-2024 End: 07-59-6996dsny 1 capsule by mouth once daily at bedtimeGabapentin 100 mg capsule Discontinued 100 MG PO Daily at bedtime 30 30 0 April 23, 2024 5:24pm June 17, 2024 8:44amInsulin Glargine U-300 Conc (8 sources)Start: 97-43-7853jzneoc 70 [IU] by subcutaneous injection once daily at bedtimeInsulin Glargine U-300 Conc Active 70 UNIT SUBCUT Daily at bedtime February 07, 2024 5:11pmStart: 02-07-2024 End: 41-79-8538thznpg 70 [IU] by subcutaneous injection once daily at bedtime Insulin Glargine U-300 Conc Discontinued 70 UNIT SUBCUT Daily at bedtime February 07, 2024 4:39pm February 07, 2024 5:15pmStart: 11-01-2023 End: 49-00-3770ketcse 74 [IU] by subcutaneous injection once daily at bedtime Insulin Glargine U-300 Conc Discontinued 74 UNIT SUBCUT Daily at bedtime November 01, 2023 5:07pm February 07, 2024 4:43pmStart: 77-37-2394kejcxb 74 [IU] by subcutaneous injection once daily at bedtimeInsulin Glargine U-300 Conc Active 74 UNIT SUBCUT Daily at bedtime November 01, 2023 5:07pmStart: 06-21-2023 End: 69-59-8791avpiqx 72 [IU] by subcutaneous injection once daily at bedtime Insulin Glargine U-300 Conc Discontinued 72 UNIT SUBCUT Daily at bedtime June 21, 2023 5:18pm November 01, 2023 5:07pmStart: 65-54-6777wruscd 72 [IU] by subcutaneous injection once daily at bedtimeInsulin Glargine U-300 Conc Active 72 UNIT SUBCUT Daily at bedtime June 21, 2023 5:18pmInsulin Glargine U-300 Conc 300 unit/mL (1.5 mL) insulin pen (15 sources)Start: 54-91-2284Wdvqenc Glargine U-300 Conc 300 unit/mL (1.5 mL) insulin pen Active 70 UNIT SUBCUT Daily at [id number] March 19, 2024 1:35pm Start: 32-58-8845Gbqknvf Glargine U-300 Conc 300 unit/mL (1.5 mL) insulin pen Active 70 UNIT SUBCUT Daily at [id number] March 19, 2024 12:35pmStart: 02-07-2024 End: 28-62-7332Wuzfsuc Glargine U-300 Conc 300 unit/mL (1.5 mL) insulin pen Discontinued 70 UNIT SUBCUT Daily at bedtime February 07, 2024 5:11pm March 19, 2024 1:35pmStart: 02-07-2024 End: 93-61-3678Ynyrodo Glargine U-300 Conc 300 unit/mL (1.5 mL) insulin pen Discontinued 70 UNIT SUBCUT Daily at bedtime February 07, 2024 4:11pm March 19, 2024 12:35pmStart: 02-07-2024 End: 86-00-4844Ozqbesx Glargine U-300 Conc 300 unit/mL (1.5 mL) insulin pen Discontinued 70 UNIT SUBCUT Daily at bedtime February 07, 2024 4:39pm February 07, 2024 5:15pmStart: 02-07-2024 End: 97-57-0350Rxyjhsx Glargine U-300 Conc 300 unit/mL (1.5 mL) insulin pen Discontinued 70 UNIT SUBCUT Daily at bedtime February 07, 2024 3:39pm February 07, 2024 4:15pmStart: 11-01-2023 End: 30-55-6202Tmcxukn Glargine U-300 Conc 300 unit/mL (1.5 mL) insulin pen Discontinued 74 UNIT SUBCUT Daily at bedtime November 01, 2023 5:07pm February 07, 2024 4:43pmStart: 11-01-2023 End: 06-24-4308Fmzzeng Glargine U-300 Conc 300 unit/mL (1.5 mL) insulin pen Discontinued 74 UNIT SUBCUT Daily at bedtime November 01, 2023 4:07pm February 07, 2024 3:43pmStart: 06-21-2023 End: 63-85-9043Djujntl Glargine U-300 Conc 300 unit/mL (1.5 mL) insulin pen Discontinued 72 UNIT SUBCUT Daily at bedtime June 21, 2023 5:18pm November 01, 2023 5:07pmStart: 06-21-2023 End: 68-88-1753Cmytzyu Glargine U-300 Conc 300 unit/mL (1.5 mL) insulin pen Discontinued 72 UNIT SUBCUT Daily at bedtime June 21, 2023 4:18pm November 01, 2023 4:07pmInsulin Lispro-Aabc (6 sources)Start: 50-04-5612Plhseci Lispro-Aabc Active 0 SUBCUT .COMPLEX 54 February 07, 2024 5:12pm USE 36 UNITS BEFORE BREAKFAST/lunch, 38 BEFORE SUPPER PLUS ISS 1:10 BEFORE MEALS (AT BEDTIME IF >200 HALF DOSE) *UP TO 120UNITS PER DAY* SubcutaneousStart: 02-07-2024 End: 18-64-0920Tbdijam Lispro-Aabc Discontinued 0 SUBCUT .COMPLEX February 07, 2024 4:40pm February 07, 2024 5:15pm USE 36 UNITS BEFORE BREAKFAST, 38 BEFORE SUPPER PLUS ISS 1:10 BEFORE MEALS (AT BEDTIME IF >200 HALF DOSE) *UP TO 100 UNITS PER DAY* Subcutaneous (expect up to 100 units/day)Start: 06-21-2023 End: 75-94-0986Aujzbdk Lispro-Aabc Discontinued 0 SUBCUT .COMPLEX June 21, 2023 1:00am February 07, 2024 4:43pmUSE 32 UNITS BEFORE BREAKFAST, 38 BEFORE SUPPER PLUS ISS 1:10 BEFORE MEALS (AT BEDTIME IF >200 HALF DOSE) *UP TO 100 UNITS PER DAY* Subcutaneous (expect up to 100 units/day)Start: 58-05-8486Kmsxgys Lispro-Aabc Active 0 SUBCUT .COMPLEX June 21, 2023 1:00am USE 32 UNITS BEFORE BREAKFAST, 38 BEFORE SUPPER PLUS ISS 1:10 BEFORE MEALS (AT BEDTIME IF >200 HALF DOSE) *UP TO 100 UNITS PER DAY* Subcutaneous (expect up to 100 units/day) Insulin Lispro-Aabc 200 unit/mL (3 mL) insulin pen (9 sources)Start: 61-39-6357Narvrub Lispro-Aabc 200 unit/mL (3 mL) insulin pen Active 0 SUBCUT .COMPLEX 54 February 07, 2024 5:12pm USE 36 UNITS BEFORE BREAKFAST/lunch, 38 BEFORE SUPPER PLUS ISS 1:10 BEFORE MEALS (AT BEDTIME IF >200 HALF DOSE) *UP TO 120 UNITS PER DAY* SubcutaneousStart: 03-21-4727Louexwq Lispro-Aabc 200 unit/mL (3 mL) insulin pen Active 0 SUBCUT .COMPLEX 54 February 07, 2024 4:12pm USE 36 UNITS BEFORE BREAKFAST/lunch, 38 BEFORE SUPPER PLUS ISS 1:10 BEFORE MEALS (AT BEDTIME IF >200 HALF DOSE) *UP TO 120 UNITS PER DAY* SubcutaneousStart: 02-07-2024 End: 99-80-5010Qfcxeih Lispro-Aabc 200 unit/mL (3 mL) insulin pen Discontinued 0 SUBCUT .COMPLEX February 07, 2024 4:40pm February 07, 2024 5:15pm USE 36 UNITS BEFORE BREAKFAST, 38 BEFORE SUPPER PLUS ISS 1:10 BEFORE MEALS (AT BEDTIME IF >200 HALF DOSE) *UP TO 100 UNITS PER DAY* Subcutaneous (expect up to 100 units/day)Start: 02-07-2024 End: 63-02-4841Ovelhea Lispro-Aabc 200 unit/mL (3 mL) insulin pen Discontinued 0 SUBCUT .COMPLEX February 07, 2024 3:40pm February 07, 2024 4:15pm USE 36 UNITS BEFORE BREAKFAST, 38 BEFORE SUPPER PLUS ISS 1:10 BEFORE MEALS (AT BEDTIME IF >200 HALF DOSE) *UP TO 100 UNITS PER DAY* Subcutaneous (expect up to 100 units/day)Start: 06-21-2023 End: 55-91-8314Yokgise Lispro-Aabc 200 unit/mL (3 mL) insulin pen Discontinued 0 SUBCUT .COMPLEX June 21, 2023 1:00am February 07, 2024 4:43pm USE 32 UNITS BEFORE BREAKFAST, 38 BEFORE SUPPER PLUS ISS 1:10 BEFOREMEALS (AT BEDTIME IF >200 HALF DOSE) *UP TO 100 UNITS PER DAY* Subcutaneous (expect up to 100 units/day) Start: 06-21-2023 End: 05-31-9484Eoqzqka Lispro-Aabc 200 unit/mL (3 mL) insulin pen [...] oxide 400 mg oral tablet (20 sources)Start: 80-00-7658dsqo 1 tablet by mouth once dailyMagnesium Oxide 400 mg (241.3 mg magnesium) tablet Active 400 MG PO Daily June 21, 2023 1:00am Complies with drug therapytake 1 tablet by mouth every twenty-four hours Magnesium Oxide 400 MG 1 tablet as needed Orally Once a day Ifiwjf01 hr metoprolol succinate 100 mg extended release oral tablet (20 sources)beta-Adrenergic BlockerStart: 21-89-5059ldum 1 tablet by mouth twice dailyMetoprolol Succinate [...] 1 TABLET AT BEDTIMEMultivitamin preparation (6 sources)Start: 30-48-6611jyam 1 tablet by mouth once dailyMultivitamin Active 1 TAB PO Daily June 25, 2018 11:00pmStart: 13-24-7695ymmw 1 tablet by mouth once dailyMultivitamin Active 1 TAB PO Daily June 26, 2018 12:00am Multivitamin Tablet (7 sources)Start: 58-73-6524ayeu 1 tablet by mouth once dailyMultivitamin Tablet Active 1 TAB PO Daily June 26, 2018 12:00am Complies with drug therapyStart: 14-25-6801znbf 1 tablet by mouth once dailyMultivitamin Tablet Active 1 TAB PO Daily June 26, 2018 12:00amStart: 88-68-8563cbrh 1 tablet by mouth once daily Multivitamin Tablet Active 1 TAB PO Daily June 25, 2018 11:00pmniacin 500 mg oral tablet (13 sources)Nicotinic AcidStart: 00-30-4269lrlk 1 tablet by mouth once daily at bedtimeNiacin 500 mg Tablet Active 500 MG PO Daily at bedtime June 26, 2018 12:00am Complies with drug therapyomega 2-eps-vgk-fish oil (FISH OIL) 100-160-1,000 mg cap (11 sources)omega 3-lrr-jva-fish oil (FISH OIL) 100-160-1,000 mg cap Take 1,000 mg by mouth. Activeomega 0-qao-llx-fish oil (FISH OIL) 100-160-1,000 mg cap Take 1,000 mg by mouth. 0 ActiveComment on above:Take 1,000 mg by mouth.pantoprazole 40 mg delayed release oral tablet (20 sources)Proton Pump InhibitorStart: 08-25-2023 End: 69-99-3350uyvu 1 tablet by mouth once daily at breakfastPantoprazole 40 mg tablet,delayed release (DR/EC) Active 0 .ROUTE .COMPLEX 90 3 August 19, 2024 7:45am TAKE 1 TABLET BY MOUTH ONCE A DAY ON EMPTY STOMACH FOLLOWED IN 30 MINUTES WITH BREAKFAST 90 Complies with drug therapyStart: 05-29-2023 End: 88-75-5363myev 1 tablet by mouth once dailyPantoprazole 40 mg tablet,delayed release (DR/EC) Discontinued 40 MG PO Daily June 21, 2023 1:00am August 25, 2023 1:04pmStart: 66-88-7554Rkmwpawqjwmn [address] Tab Refills(s) 0 Start Date: 03/22/23 Status: OrderedComment on above:TAKE 1 TABLET BY MOUTH ONCE A DAY ON EMPTY STOMACH FOLLOWED IN 30 MINUTES WITH BREAKFAST 90pen needle, diabetic (BD Ultra-Fine Georgina Pen Needle) (11 sources)Start: 00-40-2487day needle, diabetic (BD Ultra-Fine Georgina Pen Needle) Active .Route June 21, 2023 12:00amStart: 51-58-1966wok needle, diabetic (BD Ultra-Fine Georgina Pen Needle) Active .Route June 21, 2023 1:00am microencapsulated potassium chloride 20 meq extended release oral tablet (11 sources)Start: 80-16-6461lgasetgck chloride ER (KLOR-CON) 20 mEq tablet Take 20 mEq by mouth. 03/02/2022 ActiveComment on above:Take 20 mEq by mouth. sacubitril 24 mg / valsartan 26 mg oral tablet (20 sources)Angiotensin 2 Receptor BlockerStart: 22-20-2774ytxj 1 tablet by mouth in the morningENTRESTO 24-26 mg tablet TAKE 1 TABLET BY MOUTH IN THE MORNING AND IN THE EVENING 07/03/2023 ActiveStart: 78-91-2111mrxp 1 tablet by mouth twice dailySacubitril-Valsartan (Entresto) [...] mg oral tablet (20 sources)Phosphodiesterase 5 InhibitorStart: 92-65-7815Ejgymusqpr 100 mg tablet Active 100 MG PO as needed June 21, 2023 1:00am Complies with drug therapyStart: 35-64-1949ebvq 1 tablet by mouth once daily as neededSildenafil Citrate 100 MG 1 tablet Orally Once a day, as needed for ED for 30 days Oct, Activespironolactone 25 mg oral tablet (20 sources)Aldosterone AntagonistStart: 02-50-8403qdxs 1 tablet by mouth once dailySpironolactone 25 mg tablet Active 25 MG PO Daily June 21, 2023 1:00am Complies with drug therapyStart: 55-06-8684ypsnbpzciotadj 25 mg Tab Refills(s) 0 Start Date: 03/22/23 Status: OrderedComment on above:Take 25 mg by mouth every morning.tiZANidine 4 mg oral tablet (20 sources)Central alpha-2 Adrenergic AgonistStart: 40-82-9025wkxl 0.5-2 tablets by mouth once daily at bedtimeTizanidine 4 mg tablet Active 0 PO .COMPLEX June 21, 2023 1:00am TAKE 1/2 TO 2 TABLETS BY MOUTH EVERY DAY AT BEDTIME; Complies with drug therapyStart: 81-98-0351fcVNTngqgg 4 mg Tab Refills(s) 0 Start Date: 03/22/23 Status: Ordered Completed/Discontinued Medications MedicationDrug Class(es)DatesSig (Normalized)Sig (Original)atenolol 25 mg oral tablet (20 sources)beta-Adrenergic BlockerStart: 06-26-2018 End: 19-83-5247Virsywod 25 mg tablet Discontinued 25 MG PO 1200 June 26, 2018 12:00am June 21, 2023 5:28pm HTNcanagliflozin 300 mg oral tablet (13 sources)Sodium-Glucose Cotransporter 2 InhibitorStart: 06-26-2018 End: 68-93-0374Flkclpgdrierc 300 mg tablet Discontinued 300 MG PO 1200 June 26, 2018 12:00am June 21, 2023 5:28pm DMciprofloxacin 500 mg oral tablet (5 sources)Quinolone AntimicrobialStart: 02-95-5858qxxo 1 tablet by mouth every twelve hoursCipro 500 MG 1 tablet Orally every 12 hrs for 7 days Jul, Not-Takingdapagliflozin 10 mg oral tablet (20 sources)Sodium-Glucose Cotransporter 2 InhibitorStart: 06-21-2023 End: 63-35-9833yvmx 1 tablet by mouth once dailyDapagliflozin Propanediol (Farxiga) 10 mg tablet Discontinued 10 MG PO Daily 90 3 February 07, 2024 5:15pm November 27, 2024 4:43pm Type 2 diabetes mellitus with hyperglycemia Type 2 diabetes mellitus with hyperglycemia 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Start: 40-01-4106Calciiv 10 mg oral tablet Refills(s) 0 Start Date: 03/22/23 Status: OrderedComment on above:Take 10 mg by mouth every morning.empagliflozin 10 mg oral tablet (10 sources)Sodium-Glucose Cotransporter 2 Inhibitortake 1 tablet by mouth every twenty-four hoursJardiance 10 MG 1 tablet Orally Once a day for 30 day(s) Not-Takingfenofibrate 145 mg oral tablet (20 sources)Peroxisome Proliferator Receptor alpha AgonistStart: 06-26-2018 End: 77-01-3766Crxxkpwtzwj Nanocrystallized 145 mg tablet Discontinued 145 MG PO 1200 June 26, 2018 12:00am June 21, 2023 5:29pm high cholesterolflash glucose sensor (FreeStyle Shivani 2 Sensor) (11 sources)Start: 06-21-2023 End: 52-30-0972jbvee glucose sensor (FreeStyle Shivani 2 Sensor) Discontinued .Route June 21, 2023 12:00am November 15, 2023 6:58amStart: 06-21-2023 End: 49-93-6202bngas glucose sensor (FreeStyle Shivani 2 Sensor) Discontinued .Route June 21, 2023 1:00am November 15, 2023 7:58amStart: 29-33-7306okjau glucose sensor (FreeStyle Hsivani 2 Sensor) Active .Route June 21, 2023 1:00am Flash Glucose Sensor (Freestyle Shivani 2 Sensor) kit (8 sources)Start: 11-15-2023 End: 75-07-1029Ndzhz Glucose Sensor (Freestyle Shivani 2 Sensor) kit Discontinued 0 .ROUTE .COMPLEX 6 3 November 15, 2023 7:58am November 01, 2024 8:33am CHANGE EVERY 14 DAYSStart: 11-15-2023 End: 38-13-1783Izeeb Glucose Sensor (Freestyle Shivani 2 Sensor) kit Discontinued 0 .ROUTE .COMPLEX November 15, 2023 7:58am November 01, 2024 8:33am CHANGE EVERY 14 DAYSStart: 09-62-1917Wdail Glucose Sensor (Freestyle Shivani 2 Sensor) kit Active 0 .ROUTE .COMPLEX November 15, 2023 6:58am CHANGE EVERY 14 DAYSStart: 11-27-5794Gkbgt Glucose Sensor (Freestyle Shivani 2 Sensor) kit Active 0 .ROUTE .COMPLEX November 15, 2023 7:58am CHANGE EVERY 14 DAYSfluconazole 150 mg oral tablet (10 sources)Azole AntifungalStart: 19-79-2409Hgonpjat 150 MG 1 tablet Orally Once, repeat in 3 days if needed for 3 days August, Not-Taking hydroCHLOROthiazide 25 mg oral tablet (20 sources)Thiazide DiureticStart: 06-26-2018 End: 75-36-1799Jnvzggnbghedcznlmpj 25 mg tablet Discontinued 25 MG PO 1200 June 26, 2018 12:00am June 21, 2023 5:29pm htn3 ml insulin aspart, human 100 unt/ml pen injector (20 sources)Insulin AnalogStart: 06-26-2018 End: 90-70-5763Bqvazrh Aspart U-100 100 unit/mL insulin pen Discontinued [...] pen injector (20 sources)Insulin AnalogStart: 02-07-2024 End: 72-80-1926Xfwvdrl Glargine U-300 Conc 300 unit/mL (1.5 mL) insulin pen Discontinued 70 UNIT SUBCUT Daily at bedtime 08 07February 07, 2024 5:11pm March 19, 2024 1:35pm Type 2 diabetes mellitus with hyperglycemia Type 2 diabetes mellitus with hyperglycemia residential (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 DMStart: 11-01-2023 End: 95-14-7671Gyxdjzd Glargine U-300 Conc 300 unit/mL (1.5 mL) insulin pen Discontinued 74 UNIT SUBCUT Daily at bedtime November 01, 2023 5:07pm February 07, 2024 4:43pm DMStart: 06-21-2023 End: 40-96-1223Jnzxqsr Glargine U-300 Conc 300 unit/mL (1.5 mL) insulin pen Discontinued 72 UNIT SUBCUT Daily at bedtime June 21, 2023 5:18pm November 01, 2023 5:07pm DMStart: 15-68-2621hhyblzm glargine U-300 conc (TOUJEO MAX U-300 SOLOSTAR) 300 unit/mL (3 mL) inpn Inject 60 Units subcutaneously once daily. 03/22/2023 ActiveStart: 90-79-2572ncunogi glargine U-300 conc (TOUJEO MAX U-300 SOLOSTAR) 300 unit/mL (3 mL) inpn Refills(s) 0 0 03/22/2023 ActiveStart: 71-05-6427Odfdlt Max SoloStar 300 units/mL subcutaneous solution Refills(s) 0 Start Date: 03/22/23 Status: OrderedStart: 06-26-2018 End: 80-77-2694Huuugrh Glargine U-300 Conc 300 unit/mL (1.5 mL) [...] pen injector (20 sources)Insulin AnalogStart: 02-07-2024 End: 30-92-6409Xdcmouy Lispro-Aabc 200 unit/mL (3 mL) insulin pen Discontinued 0 SUBCUT .COMPLEX 54 3 February 07, 2024 5:12pm November 27, 2024 4:43pm Type 2 diabetes mellitus with hyperglycemia Type 2 diabetes mellitus with hyperglycemia 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 USE 36 UNITS BEFORE BREAKFAST/lunch, 38 BEFORE SUPPER PLUS ISS 1:10 BEFORE MEALS (AT BEDTIME IF >200 HALF DOSE) *UP TO 120 UNITS PER DAY* SubcutaneousStart: 06-21-2023 End: 74-53-1550Cmqkyji Lispro-Aabc 200 unit/mL (3 mL) insulin pen Discontinued 0 SUBCUT .COMPLEX June 21, 2023 1:00am February 07, 2024 4:43pm USE 32 UNITS BEFORE BREAKFAST, 38 BEFORE SUPPER PLUS ISS 1:10 BEFOREMEALS (AT BEDTIME IF >200 HALF DOSE) *UP TO 100 UNITS PER DAY* Subcutaneous (expect up to 100 units/day) Start: 04-78-0360Zcimxuv KwikPen 100 units/mL injectable solution Refills(s) 0 Start Date: 03/22/23 Status: OrderedStart: 87-86-2776Axmburw KwikPen 100 UNIT/ML 32 units ac breakfast , 38 supper plus ISS 1: 10 ac, (hs if >200 half dose) (expect daily dose 80 units) Subcutaneous [facility] Apr, Activelisinopril 10 mg oral tablet (20 sources)Angiotensin Converting Enzyme InhibitorStart: 06-26-2018 End: 38-99-3483Woxhunekzq 10 mg tablet Discontinued 10 MG PO 1200 June 26, 2018 12:00am June 21, 2023 5:29pm HTNMagnesium, Zinc, Vitamin D (13 sources)Start: 06-26-2018 End: 49-70-9398enss 1 tablet by mouth once daily at bedtimeMagnesium, Zinc, Vitamin D Discontinued 1 TAB PO Daily at bedtime June 25, 2018 11:00pm June 21, 2023 4:29pmStart: 06-26-2018 End: 44-33-1254ucsf 1 tablet by mouth once daily at bedtimeMagnesium, Zinc, Vitamin D Discontinued 1 TAB PO Daily at bedtime June 26, 2018 12:00am June 21, 2023 5:29pmStart: 86-63-2271utfr 1 tablet by mouth once daily at bedtime Magnesium, Zinc, Vitamin D Active 1 TAB PO Daily at bedtime June 25, 2018 11:00pmStart: 58-52-9179djww 1 tablet by mouth once daily at bedtimeMagnesium, Zinc, Vitamin D Active 1 TAB PO Daily at bedtime June 26, 2018 12:00am24 hr metFORMIN hydrochloride 500 mg extended release oral tablet (20 sources)BiguanideStart: 02-01-2023 End: 76-34-6926xylf 1 tablet by mouth three times dailyMetformin 500 mg tablet extended release 24 hr Discontinued 500 MG PO Three times daily June 21, 2023 1:00am December 19, 2023 7:09amStart: 10-52-2452gvyj 1 tablet by mouth every twelve hoursmetFORMIN ER (GLUCOPHAGE XR) 500 mg 24 hr tablet Take 1 tablet by mouth every 12 hours. 0 02/01/2023 ActiveStart: 06-26-2018 End: 15-25-1063Vgyjieith (Glucophage) 500 mg Tablet Discontinued 1000 MG PO 1800 June 26, 2018 12:00am June 21, 2023 5:21pm DMStart: 06-26-2018 End: 67-25-5165Gipasfczr (Glucophage) 500 mg Tablet Discontinued 500 MG [...] acids (Fish Oil) (11 sources)Start: 06-21-2023 End: 38-86-5765pfzg 1 capsule by mouth once dailyomega-3 fatty acids (Fish Oil) Discontinued 1 CAP PO Daily June 21, 2023 12:00am February 07, 2024 3:40pm Start: 06-21-2023 End: 12-52-1973ctxy 1 capsule by mouth once dailyomega-3 fatty acids (Fish Oil) Discontinued 1 CAP PO Daily June 21, 2023 1:00am February 07, 2024 4:40pm Start: 59-27-5830vjnj 1 capsule by mouth once dailyomega-3 fatty [...] infarction; Translations: [NON- ST ELEVATION MYOCARDIAL INFARCT]Onset: 32-84-3329PmdgdgiZympvhgosgbagi/social admission (20 sources)Dietary management surveillance; Translations: [Dietary counseling and surveillance]Onset: 03-24-2021 Resolved: 37-45-6986JmwcvwyuKqoorle dysrhythmias (20 sources)Atrial fibrillation; Translations: [Unspecified atrial fibrillation] Onset: 80-83-6418FfykwplDmyiltl ulcer of skin (1 source)Non-pressure chronic ulcer of other part of left foot limited to breakdown of skin; Translations: [N-PRS ULCR OTH PRT LT FT BRKDWN SKN]Onset: 97-88-4842WhexxwhQfykibfedixs of device; implant or graft (8 sources)Arteriosclerosis of coronary artery bypass graft; Translations: [Atherosclerosis of coronary arterybypass graft(s) without angina pectoris] Onset: 109237-81-7124RmxpycsGpkrhpnkaujdx of surgical procedures or medical care (2 sources)Other postprocedural complications and disorders of the circulatory system, not elsewhere classified; Translations: [Other postprocedural complications and disorders of the circulatory system, not elsewhere classified] Onset: 30-57-7142XojivqcdGgkqxkurdw heart failure; nonhypertensive (20 sources)Heart failure with normal ejection fraction; Translations: [Unspecified diastolic (congestive) heart failure]Onset: 64-65-0436Ocoybdt Comment on above:Echo: LVEF 50%, WARREN, normal RV size/function - oronary atherosclerosis and other heart disease (20 sources)Coronary arteriosclerosis; Translations: [Atherosclerotic heart disease of [place] coronary artery without angina pectoris]Onset: 01-06-2022 ChronicComment on above:PCI/stent LAD - 2007, CABG x - 12/2021, Echo: LVEF 50%, normal RV size/function - 06/2024,Coronary atherosclerosis and other heart disease (9 sources)Presence of aortocoronary bypass graft; Translations: [PRESENCE AORTOCORONARY BYPASS GRAFT]Onset: 59-96-8713QpddeijaOcdxvfap injury or internal injury (8 sources)Crushing injury of right index finger, initial encounter; Translations: [Crushing injury of foot]EpisodicDiabetes mellitus with complications (20 sources)Hyperglycemia due to type 2 diabetes mellitus; Translations: [Type 2 diabetes mellitus with hyperglycemia]Onset: 01-06-2021 Resolved: 23-01-6536LkbhvkkCfnfeowp mellitus without complication (20 sources)Type 2 diabetes mellitus without complication; Translations: [Type 2 diabetes mellitus without complications]Onset: hronic Disorders of lipid metabolism (20 sources)Hypertriglyceridemia; Translations: [Pure hyperglyceridemia]Onset: 03-24-2021 Resolved: 33-74-5057EkrfgkcE Codes: Fall (4 sources)Accidental fall ; Translations: [Unspecified fall, initial encounter] 66-23-4302ZdlcfymiCvbusraels disorders (20 sources)Gastro-esophageal reflux disease with esophagitis; Translations: [Gastroesophageal reflux disease with esophagitis without hemorrhage]Onset: 350845-16-7525OzchvcvUgpfztzis hypertension (20 sources)Essential hypertension; Translations: [Essential (primary) hypertension]Onset: 03-24-2021 Resolved: 95-01-0834YsxamfkHybqvdy on above:Carotid US: < 50% B/L - 12/2021 Genitourinary congenital anomalies (2 sources)Congenital buried penis; 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]Onset: 16-80-2274JnecbtiCzsdswwnzcahb symptoms and ill-defined conditions (12 sources)Dysuria; Translations: [Hematuria, unspecified]Onset: 08-11-2021 Resolved: 14-46-2068JewbuaahZbscnbsdmlay conditions of male genital organs (19 sources)Balanitis; Translations: [Balanitis]Onset: 93-96-4919Igqipsn Inflammatory conditions of male genital organs (17 sources)Acute prostatitis; Translations: [Acute prostatitis]Episodic Intestinal infection (1 source)Jtayjoeyarzzs15-80-0110QorfnsrtAvozrymfvtu deficiencies (20 sources)Vitamin D deficiency; Translations: [Vitamin D deficiency, unspecified]ChronicNutritional deficiencies (20 sources)Deficiency of other specified B group vitamins; Translations: [Cobalamin deficiency]Onset: 10-21-2021 Resolved: 90-81-2049SoekhafzIzzi wounds of extremities (17 sources)Open wound of toe(s) with damage to nail; Translations: [Unspecified open wound of unspecified toe(s) with damage to nail, subsequent encounter] EpisodicOsteoarthritis (6 sources)Osteoarthritis of left foot; Translations: [Primary osteoarthritis, left ankle and foot]55-93-8393QvibqmlOpgat aftercare (20 sources)Long-term current use of insulin; Translations: [residential (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]EpisodicOther aftercare (1 source)Long-term current use of anticoagulant; Translations: [residential (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 of anticoagulants]Onset: 59-18-2040SsuejdllNmwko and ill-defined heart disease (1 source)Heart qqalrim62-80-7648VtrphfpVyust bone disease and musculoskeletal deformities (2 sources)Avascular necrosis of bone of hip; Translations: [Idiopathic aseptic necrosis of left femur]15-18-3269RpvvhbcVuylz connective tissue disease (18 sources)Pain in right foot; Translations: [Pain in right foot]Onset: 35-43-1288AdkgyfltSwmqk connective tissue disease (8 sources)Pain in left lower limb; Translations: [Pain in left leg]04-23-2024 EpisodicOther connective tissue disease (1 source)Pain in left leg; Translations: [Pain in limb]46-38-8714RitryooyQwhkr diseases of veins and lymphatics (17 sources)Peripheral venous insufficiency; Translations: [Venous insufficiency (chronic) (peripheral)]EpisodicOther diseases of veins and lymphatics (3 sources)Venous insufficiency (chronic) (peripheral)EpisodicOther hereditary and degenerative nervous system conditions (1 source)Other idiopathic peripheral autonomic neuropathy; Translations: [OTH IDIO PERIPH AUTONOM NEUROPATHY]Onset: 17-16-1061VhghpgpEamyl lower respiratory disease (1 source)Chronic pulmonary edema; Translations: [CHRONIC PULMONARY EDEMA]Onset: 85-17-5917HxhoudnElddb male genital disorders (13 sources)Erectile dysfunction co-occurrent and due to arterial insufficiency; Translations: [Erectile dysfunction due to arterial insufficiency]ChronicOther male genital disorders (3 sources)Erectile dysfunction due to arterial insufficiencyChronicOther male genital disorders (15 sources)Male erectile dysfunction, unspecified; Translations: [Erectile dysfunction]Onset: 32-13-3418RewdfyjWvnrz male genital disorders (13 sources)Acquired buried penis; 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]Onset: 311925-55-0195KxmgspwJloxy male genital disorders (12 sources)Fibrosis of corpus cavernosum; Translations: [Induration penis plastica]Onset: 352977-40-7596VbxjajsYaodr male genital disorders (1 source)Acquired buried penis; 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]Onset: 70-56-5222ZurahwlBuvuj male genital disorders (1 source)Induration penis plastica; Translations: [Scarring of penis]Onset: 58-12-4650DvkefhlNlwma male genital disorders (1 source)Erectile dysfunction due to diseases classified elsewhere; Translations: [Erectile dysfunction associated with type 2 diabetes mellitus (HCC) (HCC)]Onset: 76-14-1350VtqyvwsZaobd male genital disorders (12 sources)Phimosis; Translations: [Phimosis]Onset: 23-70-4395FjjsvcziYbzig non-traumatic joint disorders (17 sources)Arthropathy associated with a neurological disorder; Translations: [Charcot's joint, left ankle andfoot]ChronicOther non-traumatic joint disorders (4 sources)Arthralgia of the pelvic region and thigh; Translations: [Pain in left hip]92-24-9485HahlzpbcNgvlv nutritional; endocrine; and metabolic disorders (20 sources)Obese class II; Translations: [Body mass index (BMI) 37.0-37.9, adult]ChronicOther nutritional; endocrine; and metabolic disorders (20 sources)Obesity; Translations: [Obesity, unspecified]54-10-5172NrkvwdtIwxov nutritional; endocrine; and metabolic disorders (20 sources)Body mass index 40+ - severely obese; Translations: [Body mass index (BMI) 40.0-44.9, adult]ChronicOther nutritional; endocrine; and metabolic disorders (5 sources)Body mass index (BMI) 40.0-44.9, adult; Translations: [BODY MASS INDEX BMI 40.0-44.9 ADULT]Onset: 03-24-2021 Resolved: 43-22-2545StxvzwnVqwcj nutritional; endocrine; and metabolic disorders (17 sources)Morbid obesity; Translations: [Morbid (severe) obesity due to excess calories]ChronicOther nutritional; endocrine; and metabolic disorders (6 sources)Body mass index (BMI) 39.0-39.9, adult; Translations: [Body Mass Index 39.0-39.9, adult]Onset: 96-81-3128YaxcsqyWveno nutritional; endocrine; and metabolic disorders (2 sources)Obesity, unspecified; Translations: [Obesity, unspecified]Onset: 624196-75-5816HenyikkWoeif nutritional; endocrine; and metabolic disorders (20 sources)Body mass index 30+ - obesity; Translations: [Body mass index (BMI) 39.0-39.9, adult]36-87-3238FwxlbhjGhhse nutritional; endocrine; and metabolic disorders (7 sources)Obesity caused by energy imbalance; Translations: [Other obesity due to excess calories]Onset: 102769-42-2897TzbdaokWmgag nutritional; endocrine; and metabolic disorders (1 source)Other obesity due to excess calories; Translations: [Class 2 obesity due to excess calories withoutserious comorbidity with body mass index (BMI) of 39.0 to 39.9 in adult]Onset: 85-97-3391MsiyzcgOmvqh nutritional; endocrine; and metabolic disorders (4 sources)Body mass index (BMI) 38.0-38.9, adult; Translations: [Body Mass Index 38.0-38.9, adult]53-82-7026RgooadjKiaqx screening for suspected conditions (not mental disorders or infectious disease) (9 sources)Encounter for screening for malignant neoplasm of prostate; Translations: [Patient encounter status]EpisodicComment on above:PSA: 0.52 - 01/2025Skin and subcutaneous tissue infections (2 sources)Cutaneous abscess of right handEpisodicSpondylosis; intervertebral disc disorders; other back problems (18 sources)Lumbosacral spondylosis with radiculopathy; Translations: [Other spondylosis with radiculopathy, lumbosacral region]Onset: 78-73-0240Cfurjir Spondylosis; intervertebral disc disorders; other back problems (4 sources)Low back pain; Translations: [Low back pain]41-64-0549Xbhewgkx Superficial injury; contusion (15 sources)Blister (nonthermal), left great toe, initial encounter; Translations: [Contusion of unspecified finger with damage to nail, initial encounter]EpisodicUnclassified (1 source)CONTACT W/AND (SUSP) EXPOS COVID-19; Translations: [CONTACT W/AND (SUSP) EXPOS COVID-19]Onset: 65-12-8194Eshuktztjwuf (1 source)Drug therapy ghelyjo94-02-9661 Past or Other Problems Problem ClassificationProblemDateDocumented DateEpisodic/ChronicEsophageal disorders (4 sources)Esophageal disordersMycoses (1 source)Tinea unguium; Translations: [TINEA UNGUIUM]Onset: 88-80-0298Jucjtdhd Nonspecific chest pain (3 sources)Chest pain, unspecified; Translations: [CHEST PAIN UNSPECIFIED]Onset: 12-68-7999EuzfekqhBpxtn aftercare (9 sources)residential (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; 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]Onset: 03-24-2021 Resolved: 40-50-5288GtjafpdbTvyxn aftercare (1 source)residential (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 of oral hypoglycemic drugs; Translations: [LONGTERM USE ORAL HYPOGLYCEMIC DX]Onset: 78-28-6028QhzywnkyUvxqg connective tissue disease (3 sources)Pain in right foot; Translations: [PAIN IN RIGHT FOOT]Onset: 79-22-1164OaqbxunmTxzds connective tissue disease (1 source)Pain in left foot; Translations: [PAIN IN LEFT FOOT]Onset: 09-20-2021 EpisodicOther nervous system disorders (1 source)Other acute postprocedural pain; Translations: [Acute post-operative pain]Onset: 03-74-9494EiupbvnsEswdv skin disorders (4 sources)Nail dystrophy; Translations: [NAIL DYSTROPHY]Onset: 09-09-2021 EpisodicSprains and strains (8 sources)Strain of muscle, fascia and tendon of lower back, subsequent encounter; Translations: [Strain of muscle, fascia and tendon of lower back, initial encounter]Onset: 68-51-2924GlbabumbRcibebv tract infections (2 sources)Urinary tract infection, site not specifiedOnset: 08-11-2021 Resolved: 66-14-2741Fhqzotby Results Test NameValueInterpretationReference RangeFacilityBasophils Auto (Bld) [#/Vol] Ordered By: Outside Provider on 30-57-2885Xxigiivmw (Bld) [#/Vol]0.1 10 3/uL 0.0-0.1FThe Bellevue HospitalBasophils/100 WBC Auto (Bld)Ordered By: Outside Provider on 86-03-7292Dkqnzlpxu/100 WBC (Bld)0.6 %0.2-2.0[facility] SystemCholesterol in LDL Calc [Mass/Vol]Ordered By: Outside Provider on 79-63-2969Oefzrmjylpl in LDL [Mass/Vol]67.0 mg/dLAvita Health SystemComment on above:<100 mg/dl RZMALJF655-886 mg/dl NEAR OR ABOVE USGKDRE053-648 mg/dl BORDERLINE LKNC143-454 mg/dl HIGH>190 mg/dl VERY HIGH Cholesterol in VLDL Calc [Mass/Vol]Ordered By: Outside Provider on 02-04-2025 Cholesterol in VLDL [Mass/Vol]50.2 mg/dLAvita Health System Eosinophils/100 WBC Auto (Bld)Ordered By: Outside Provider on 02-04-2025 Eosinophils/100 WBC (Bld)2.7 %0.9-7.0[facility] Erythrocyte distribution width Auto (RBC) [Ratio]Ordered By: Outside Provider on 28-98-1931Wlisghiachc distribution width (RBC) [Ratio]16.2 %High11.0-15.0 [facility] SystemGlobulin Calc (S) [Mass/Vol]Ordered By: Outside Provider on 10-25-9851Ochereyd (S) [Mass/Vol]4.6 g/dLAvita Health SystemGlomerular filtration rate (GFR) estimation in non- Ordered By: Outside Provider on 77-10-5742JNE/1.73 sq M.predicted among non- blacks MDRD (S/P/Bld) [Vol rate/Area]mL/min/{1.73_m2}>=60 mL/min/1.73m 2 [facility] SystemHematocrit Auto (Bld) [Volume fraction]Ordered By: Outside Provider on 52-72-5922Cuyauypnls (Bld) [Volume fraction]51.6 % 42.0-54.0[facility] SystemHemoglobin [Mass/volume] in Blood Ordered By: Outside Provider on 74-24-8371Vochgepzcd (Bld) [Mass/Vol]17.0 g/dL 14.0-18.0[facility] SystemLaboratory - Chemistry and Chemistry - challengeOrdered By: Outside Provider on 82-73-4102Fhbabdo [Mass/Vol]4.2 g/dL 3.4-5.0[facility] SystemALP [Catalytic activity/Vol]120 U/LHigh 46-116[facility] SystemALT [Catalytic activity/Vol]39 U/L16-63 [facility] SystemAST [Catalytic activity/Vol]27 U/L15-37 [facility] SystemBilirubin [Mass/Vol]0.3 mg/dL0.2-1.0[facility] SystemCalcium [Mass/Vol]9.4 mg/dL8.5-10.1FThe Bellevue HospitalChloride [Moles/Vol]101 mmol/X04-119TsbiqrgziAvita Health SystemCholesterol [Mass/Vol]154 mg/dL<=200[facility] Cholesterol in HDL [Mass/Vol]37 mg/jMRcc08-94IedgxxdgcAvita Health System Comment on above:> or =60 mg/dl - LOW CARDIOVASCULAR RISK<40 mg/dl - HIGH CARDIOVASCULAR RISKCO2 [Moles/Vol]27.9 mmol/L21.0-32.0[facility] SystemCreatinine [Mass/Vol]0.69 mg/dLLow0.70-1.30[facility] SystemGFR/1.73 sq M.predicted MDRD (S/P/Bld) [Vol rate/Area]mL/min/{1.73_m2}>=60 mL/min/1.73m 2FThe Bellevue HospitalGlucose [Mass/Vol]109 mg/dLHigh 74-106[facility] SystemPotassium [Moles/Vol]4.0 mmol/L3.5-5.1 [facility] SystemProtein [Mass/Vol]8.8 g/dLHigh6.4-8.2FKing's Daughters Medical Center Ohioodium [Moles/Vol]138 mmol/F480-468GxjzoimkxAvita Health SystemTriglyceride [Mass/Vol]251 mg/dLHigh<=150[facility] SystemUrea nitrogen [Mass/Vol]15.0 mg/dL7.0-18.0[facility] SystemUrea nitrogen/Creatinine [Mass ratio]21.7 mg/mgAvita Health SystemLaboratory - Hematology and Cell countsOrdered By: Outside Provider on 14-47-6940Jmdvsoxf granulocytes/100 WBC (Bld)0.5 %0.0-0.5FThe Bellevue HospitalLeukocytes [#/volume] corrected for nucleated erythrocytes in Blood by Automated counOrdered By: Outside Provider on 47-92-5126GWC corrected for nucl RBC Auto (Bld) [#/Vol]9.9 10 3/uL4.0-11.0 [facility] SystemLymphocytes Auto (Bld) [#/Vol]Ordered By: Outside Provider on 39-18-2475Oemtcbcpnfj (Bld) [#/Vol]2.4 10 3/uL1.2-3.8 [facility] SystemLymphocytes/100 WBC Auto (Bld)Ordered By: Outside Provider on 83-47-4825Jrllhebaxcr/100 WBC (Bld)24.5 %20.5-60.0[facility] SystemMCH Auto (RBC) [Entitic mass]Ordered By: Outside Provider on 67-45-7484WKB (RBC) [Entitic mass]28.0 pg25.9-34.0[facility] SystemMCHC Auto (RBC) [Mass/Vol]Ordered By: Outside Provider on 43-13-6949IKIA (RBC) [Mass/Vol]32.9 g/dL29.9-35.2FThe Bellevue HospitalMCV Auto (RBC) [Entitic vol]Ordered By: Outside Provider on 51-18-3869TEN (RBC) [Entitic vol]85.0 fL80.0-94.0[facility] SystemMonocytes Auto (Bld) [#/Vol]Ordered By: Outside Provider on 49-11-3402Ebtffmyiz (Bld) [#/Vol]1.0 10 3/uLHigh0.3-0.8[facility] SystemMonocytes/100 WBC Auto (Bld) Ordered By: Outside Provider on 78-10-6843Lntbadzcr/100 WBC (Bld)10.0 %1.7-12.0 [facility] SystemNeutrophils Auto (Bld) [#/Vol]Ordered By: Outside Provider on 26-56-5482Fxylomadsli (Bld) [#/Vol]6.1 10 3/uL1.4-6.5 [facility] SystemNeutrophils/100 WBC Auto (Bld)Ordered By: Outside Provider on 69-73-1180Iuaedidjzcc/100 WBC (Bld)61.7 %43.0-75.0[facility] SystemNo Panel InformationOrdered By: Outside Provider on 26-71-1572Bkkwngswnmj # (Auto)0.3 10 3/uL0.0-0.7FThe Bellevue HospitalImmature Granulocyte # (Auto)0.05 10 3/uLHigh0.00-0.03[facility] SystemNucleated Red Blood Cells/100 EEG9OsnpgxzhaAvita Health SystemProstate Specific Antigen Screen0.52 ng/mL<=4.00[facility] SystemPlatelet mean volume Auto (Bld) [Entitic vol]Ordered By: Outside Provider on 37-27-0961Sicizljm mean volume (Bld) [Entitic vol]9.5 fL9.5-13.5FThe Bellevue HospitalPlatelets Auto (Bld) [#/Vol]Ordered By: Outside Provider on 17-01-5566Fkampdvcq (Bld) [#/Vol]313 10 3/nW018-436JkaslozxbAvita Health SystemRBC Auto (Bld) [#/Vol]Ordered By: Outside Provider on 23-77-9725IVJ (Bld) [#/Vol]6.07 10 6/uL4.70-6.10[facility]opedic Centererum or plasma albumin/globulin mass ratioOrdered By: Outside Provider on 02-04-2025 Albumin/Globulin [Mass ratio]0.9 {ratio}[facility]opedic Centererum or plasma anion gap determinationOrdered By: Outside Provider on 60-89-5338Bhxqv gap [Moles/Vol]13.1 mmol/LFKing's Daughters Medical Center Ohioerum or plasma total cholesterol/high density lipoprotein (HDL) cholesterol mass ratOrdered By: Outside Provider on 62-00-0259Ntpryiwlpof.total/Cholesterol in HDL [Mass ratio] 4.2 {ratio}[facility] SystemComment on above:3.3 - 4.4 LOW RISK4.4 - 7.1 AVERAGE RISK7.1 - 11.0 MODERATE RISK>11.0 HIGH ZOOXCpC8y HPLC (Bld) [Mass fraction]Ordered By: Yamilex Foster on 93-21-7747AnR1a (Bld) [Mass fraction]7.0 %[facility] SystemNo Panel InformationOrdered By: Yamilex Foster on 01-22-0875Rzutbeu Kgusopl661NogcygzotAvita Health System Laboratory - Chemistry and Chemistry - challengeon 07-53-0594Aunqcqhgb (Vitamin B12) [Mass/Vol]601 pg/zW291-4049ZjmujbsnpAvita Health SystemComment on above:Performed at: [facility] [id number] Director: Toy Conroy PhD, Phone: [phone] [Mass/volume] in Urineon 93-66-9381Yhqplrp DL <= 20 mg/L (U) [Mass/Vol]2.3 mg/dL<=30.0[facility] SystemNo Panel Informationon 80-10-5261Mngtd Random Creatinine 78.24 mg/dL20.00-300.00[facility] SystemUrine microalbumin/creatinine mass ratioon 35-19-1266Szhqmmx/Creatinine DL <= 20 mg/L (U) [Mass ratio]29.3 mg/g0.0-29.9[facility] SystemComment on above:NO MICROALBUMINURIA 0-29 MG/GCLINICAL MICROALBUMINURIA 30-300 MG/GMACROALBUMINURIA >300 MG/GHbA1c HPLC (Bld) [Mass fraction]on 51-34-6651VbT7w (Bld) [Mass fraction]6.9 %[facility] SystemNo Panel Information on 85-66-7948Ulcgsqx Lrqonxr150FnqhqbxauAvita Health SystemBasophils Auto (Bld) [#/Vol]on 43-24-3845Uyniewlxr (Bld) [#/Vol]Automated basophil count0.0-0.1 [facility] SystemBasophils/100 WBC Auto (Bld)on 07-13-2024 Basophils/100 WBC (Bld)Automated basophil %0.2-2.0[facility] SystemCholesterol in LDL Calc [Mass/Vol]on 73-66-7392Gfbcqdnvbnd in LDL [Mass/Vol]Cholesterol in LDL [Mass/volume] in Serum or Plasma by calculation [facility] SystemComment on above:<100 mg/dl DPFBXMK164-790 mg/dl NEAR OR ABOVE JYSTROC273-183 mg/dl BORDERLINE BEVV304-987 mg/dl HIGH>190 mg/dl VERY HIGHCholesterol in VLDL Calc [Mass/Vol]on 46-58-6931Ddgynjjswji in VLDL [Mass/Vol]Cholesterol in VLDL [Mass/volume] in Serum or Plasma by calculationAvita Health SystemEosinophils/100 WBC Auto (Bld)on 81-32-2003Uupurrfdtve/100 WBC (Bld)Automated eosinophil %0.9-7.0[facility] SystemErythrocyte distribution width Auto (RBC) [Ratio]on 95-79-7312Yptjuqtqpql distribution width (RBC) [Ratio]Erythrocyte distribution width [Ratio] by Automated hkqxpIajh77.0-15.0[facility] Estimated glomerular filtration rate (GFR) non- Americanon 07-13-2024 GFR/1.73 sq M.predicted among non-blacks MDRD (S/P/Bld) [Vol rate/Area]Estimated glomerular filtration rate (GFR) non->=60 mL/min/1.73m 2 [facility] SystemGlobulin Calc (S) [Mass/Vol]on 07-13-2024 Globulin (S) [Mass/Vol]Serum globulin measurement by calculation (mass/volume) [facility] SystemHematocrit Auto (Bld) [Volume fraction]on 82-73-3898Pzptvepitb (Bld) [Volume fraction]Hematocrit [Volume Fraction] of Blood by Automated count42.0-54.0[facility] SystemHemoglobin [Mass/volume] in Bloodon 22-60-5260Jwsbmmwkzi (Bld) [Mass/Vol]Hemoglobin [Mass/volume] in Blood14.0-18.0[facility] SystemLaboratory - Chemistry and Chemistry - challengeon 84-13-3917Bkecgjq [Mass/Vol]3.3 g/dLLow 3.4-5.0[facility] SystemALP [Catalytic activity/Vol]135 U/LHigh 46-116[facility] SystemALT [Catalytic activity/Vol]30 U/L16-63 [facility] SystemAST [Catalytic activity/Vol]19 U/L15-37 [facility] SystemBilirubin [Mass/Vol]0.4 mg/dL0.2-1.0[facility] SystemCalcium [Mass/Vol]9.2 mg/dL8.5-10.1FThe Bellevue HospitalChloride [Moles/Vol]104 mmol/L75-488DnkbvsbdyAvita Health SystemCholesterol [Mass/Vol]111 mg/dL<=200[facility] Cholesterol in HDL [Mass/Vol]35 mg/hARda77-19BkuxunyydAvita Health System Comment on above:> or =60 mg/dl - LOW CARDIOVASCULAR RISK<40 mg/dl - HIGH CARDIOVASCULAR RISKCO2 [Moles/Vol]29.1 mmol/L21.0-32.0[facility] SystemCreatinine [Mass/Vol]0.93 mg/dL0.70-1.30[facility] GFR/1.73 sq M.predicted MDRD (S/P/Bld) [Vol rate/Area]mL/min/{1.73_m2}>=60 mL/min/1.73m 2FThe Bellevue HospitalGlucose [Mass/Vol]168 mg/dLHigh 74-106[facility] SystemPotassium [Moles/Vol]4.0 mmol/L3.5-5.1 [facility] SystemProtein [Mass/Vol]7.5 g/dL6.4-8.2FKing's Daughters Medical Center Ohioodium [Moles/Vol]142 mmol/F626-105FdtanhqbkAvita Health SystemTriglyceride [Mass/Vol]198 mg/dLHigh<=150[facility] SystemUrea nitrogen [Mass/Vol]17.0 mg/dL7.0-18.0[facility] SystemUrea nitrogen/Creatinine [Mass ratio]18.3 mg/mgAvita Health SystemLaboratory - Hematology and Cell countson 10-11-0511Orfjzclc granulocytes/100 WBC (Bld)0.5 %0.0-0.5FThe [facility] Leukocytes [#/volume] corrected for nucleated erythrocytes in Blood by Automated counon 34-98-9899LAU corrected for nucl RBC Auto (Bld) [#/Vol]Leukocytes [#/volume] corrected for nucleated erythrocytes in Blood by Automated coun 4.0-11.0[facility] SystemLymphocytes Auto (Bld) [#/Vol]on 50-32-8468Jjncjqxetus (Bld) [#/Vol]Lymphocytes [#/volume] in Blood by Automated count1.2-3.8[facility] SystemLymphocytes/100 WBC Auto (Bld)on 46-39-9346Kidkwjjbzsx/100 WBC (Bld)Lymphocytes/100 leukocytes in Blood by Automated count20.5-60.0[facility] SystemH Auto (RBC) [Entitic mass]on 41-22-7108RNC (RBC) [Entitic mass]MCH [Entitic mass] by Automated count 25.9-34.0[facility] Health SystemMCHC Auto (RBC) [Mass/Vol]on 95-05-6402NISU (RBC) [Mass/Vol]MCHC [Mass/volume] by Automated count29.9-35.2 [facility] SystemMCV Auto (RBC) [Entitic vol]on 11-47-4281EVS (RBC) [Entitic vol]MCV [Entitic volume] by Automated count80.0-94.0[facility] SystemMonocytes Auto (Bld) [#/Vol]on 13-04-5445Rueucmjzb (Bld) [#/Vol]Automated blood monocyte countHigh0.3-0.8[facility] SystemMonocytes/100 WBC Auto (Bld)on 83-45-1405Rmhmckrue/100 WBC (Bld)Automated monocyte %1.7-12.0[facility] SystemNeutrophils Auto (Bld) [#/Vol]on 46-88-6476Yhmugzpvgwt (Bld) [#/Vol]Neutrophils [#/volume] in Blood by Automated count1.4-6.5FThe Bellevue HospitalNeutrophils/100 WBC Auto (Bld)on 92-31-7960Xaohubzgrks/100 WBC (Bld)Automated neutrophil %43.0-75.0 [facility] SystemNo Panel Informationon 35-00-2506Ivnffyswsju # (Auto)0.3 10 3/uL0.0-0.7FThe Bellevue HospitalImmature Granulocyte # (Auto)0.04 10 3/uLHigh0.00-0.03[facility] SystemPlatelet mean volume Auto (Bld) [Entitic vol]on 87-75-5840Mkkvdtit mean volume (Bld) [Entitic vol]Platelet mean volume [Entitic volume] in Blood by Automated count9.5-13.5 [facility] SystemPlatelets Auto (Bld) [#/Vol]on 07-13-2024 Platelets (Bld) [#/Vol]Platelets [#/volume] in Blood by Automated zutmf951-515 [facility] SystemRBC Auto (Bld) [#/Vol]on 57-83-7169KND (Bld) [#/Vol]Erythrocytes [#/volume] in Blood by Automated count4.70-6.10[facility] Centererum or plasma albumin/globulin mass ratioon 07-13-2024 Albumin/Globulin [Mass ratio]Serum or plasma albumin/globulin mass ratio [facility]opedic Centererum or plasma anion gap determinationon 01-98-1773Efjwe gap [Moles/Vol]Serum or plasma anion gap determinationCrystal Clinic Orthopedic Centererum or plasma total cholesterol/high density lipoprotein (HDL) cholesterol mass evelyn 55-60-3553Lvizywcmeud.total/Cholesterol in HDL [Mass ratio]Serum or plasma total cholesterol/high density lipoprotein (HDL) cholesterol mass ratAvita Health SystemComment on above:3.3 - 4.4 LOW RISK4.4 - 7.1 AVERAGE RISK7.1 - 11.0 MODERATE RISK>11.0 HIGH RISK Office Visiton 39-66-0143Bvmxuq-up [id number] Caden Wills 1960 M Date Provider Department Center 07/12/2024 SIMBA REYEZ BOB [facility] Family History Problem Relation Age of Onset Coronary artery disease Father Family Status - Relation Status Age at Father Level of Service:61667 [place] OFFICE/OUTPATIENT ESTABLISHED MOD MDM 30 [facility] SystemHbA[facility] (Bld) [Mass fraction]on 02-07-2024 HbA1c (Bld) [Mass fraction]Hemoglobin A1c/Hemoglobin.total in Blood by HPLC [facility] Health SystemNo Panel Informationon 85-78-9992Djbgygs Mvpnmma497QhphbanbtAvita Health SystemTelemedicineon 93-39-5923Quazyvssuiws [id number] Caden Wills 1960 M Date Provider Department Center 01/23/2024 CAROLINE MARRERO [facility] [place] [facility] Family History Problem Relation Age of Onset Coronary artery disease Father Family Status - Relation Status Age at Father Level of Service:NOCHG [place] 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NormalUniversSamaritan North Health CenterCholesterol in LDL Calc [Mass/Vol]on 06-44-4537Jupzclmzoam in LDL [Mass/Vol]49.0 mg/dLAvita Health SystemComment on above:<100 mg/dl JRBXSXJ926-088 mg/dl NEAR OR ABOVE CXBVTKM505-215 mg/dl BORDERLINE YSOG419-934 mg/dl HIGH>190 mg/dl VERY HIGHCholesterol in VLDL Calc [Mass/Vol]on 01-20-2024 Cholesterol in VLDL [Mass/Vol]26.6 mg/dLAvita Health System Laboratory - Chemistry and Chemistry - challengeon 81-37-8578Dwlngobwmxn [Mass/Vol]107 mg/dL<=200[facility] SystemCholesterol in HDL [Mass/Vol]32 mg/mMVcj11-91HontqnrzcAvita Health SystemComment on above:> or =60 mg/dl - LOW CARDIOVASCULAR RISK<40 mg/dl - HIGH CARDIOVASCULAR RISK Triglyceride [Mass/Vol]133 mg/dL<=150[facility] SystemNo Panel Informationon 05-59-1278Otemoezqyeina TestCOMMENT.[facility]ita Health SystemComment on above:Test Ordered: [id number] Apolipoprotein BApolipoprotein B 68 mg/dL BN Reference Range: <90 Desirable< 90 Borderline High 90 - 99 High 100 - 130 Very High >130 ASCVD RISK THERAPEUTIC TARGET CATEGORY APO B (mg/dL) Very High Risk <80 (if extreme risk <70) High Risk <90 Moderate Risk <90Performed at: Screen [address] [place], [place] [id number] Director: Fletcher Patel MD, Phone: [phone] at: [facility] [id number] Director: Toy Conroy PhD, Phone: [phone] or plasma total cholesterol/high density lipoprotein (HDL) cholesterol mass evelyn 80-46-2139Aszvcbgahag.total/Cholesterol in HDL [Mass ratio]3.3 {ratio}[facility] Health SystemComment on above:3.3 - 4.4 LOW RISK4.4 - 7.1 AVERAGE RISK7.1 - 11.0 MODERATE RISK>11.0 HIGH PBXD79zj 51-30-756315Xzknczvq by: CAROLINE SILVA on: 01/16/2024 12:14 PM Modules accepted: OrdersNormalUniversity of Corpus [facility] Area29Addended by: OPAL PEÑA on: 01/16/2024 10:44 AM Modules accepted: OrdersNormalUniversity of Corpus Christi Medical Center Bay AreaCNPNon 16-66-3489HWPIJebwnuffs (BEATAN) CADEN WILLS ([id number]) 1960 M Date Time Provider Department 01/15/24 JADA WILKINS During your visit today, we recorded the following information about you: Jada Wilkins, JAKE.CUBING MACHINE TENDER 01/15/2024 2:53 PM Signed ----- Message from Kourtney Sena sent at 01/15/2024 9:13 AM EDT ----- Regarding: [facility] medication [facility] [place] [facility] request for Cephalexin - it is not on his current med list. Please advise and thank you, Kourtney Wilkins, Jada Sharma APRN.CUBING MACHINE TENDER 01/15/2024 2:54 PM Signed See previous telephone encounter from 10/04/2023. Keflex has been on auto refill, and [facility] has already been asked to [facility] this request. Jada Wilkins APRN.CUBING MACHINE TENDER Allergies As of Date: 01/15/2024 (No Known [...] Take 20 mEq by mouth. - omega 9-quj-pmz-fish oil (FISH OIL) 100-160-1,000 mg cap Take [...] *07/27/2023 Encounter Status:Closed by JADA WILKINS on 01/15/24[facility] [id number] Caden Wills 1960 M Date Provider Department Center 01/15/2024 [facility] [place] [facility] Family History Problem Relation Age of Onset Coronary artery disease Father Family Status - Relation Status Age at Father Reason for Visit and Comments: PharmD Cardiology Consult [Other][facility] HospitalCNPNon 80-92-6430KCRMVuxlcqwwb (BEATAN) CADEN WILLS ([id number]) 1960 M Date Time Provider Department 10/04/23 JADA WILKINS During your visit today, we recorded the following information about you: Jada Wilkins, JAKE.CUBING MACHINE TENDER 10/04/2023 4:18 PM Signed ----- Message from Kourtney Hodge Patient Service Spec sent at 10/04/2023 7:36 AM EDT ----- Regarding: Medication refill [facility] faxed over a refill request for Cephalexin 500 mg- it is not listed in his med list . Please advise and thank you, Kuortney Wilkins, Jada Sharma APRN.CUBING MACHINE TENDER 10/04/2023 4:25 PM Signed Keflex was prescribed for 1 month after buried penis surgery on 07/28/2023. Called Caden Wills. He reports trying to cancel ref[facility] but was unsuccessful. Denies concerns about infection. Reminded him that he should follow up with Dr. Alberto in the fall. Left voicemail at [facility] in [place], advising that Caden Wills does NOT need refill on Keflex and asking them to take it off auto refill. Jada Wilkins APRN.CUBING MACHINE TENDER Allergies As of Date: 10/04/2023 (No Known [...] Take 20 mEq by mouth. - omega 8-wsf-teu-fish oil (FISH OIL) 100-160-1,000 mg cap Take [...] *07/27/2023 Encounter Status:Closed by JADA WILKINS on 10/04/23NoParkview HealthConsultation Noteon 67-41-3724Fpipvmmeegcc Note [id number]#1.00Tuscarawas HospitalCNOVon 10-71-4844PMPKEyzwoy Visit (RICKEY) CADEN WILLS ([id number]) 1960 M Date Time Provider Department 09/13/23 [...] tablet Take 20 mEq by mouth. omega 0-fnd-qut-fish oil (FISH OIL) 100-160-1,000 mg cap Take 1,000 mg by mouth. No current facility-administered medications on file prior to visit. DATA/OR LABS TO BE REVIEWED: (Simple=1 data point; Complex= 2 or more) No results found for: PSA Creatinine (mg/dL) Date Value 07/29/2023 0.71 07/28/2023 0.75 07/27/2023 0.73 No results found for: TESTOST Noy Mary bank representative Staff Note: I performed a face to [...] Jian Alberto MD Referring Provider: GIOVANNI MULLIGAN [[id number]] Allergies As of Date: 09/13/2023 (No Known [...] (TOUJEO MAX U-300 SOLOST (more content not included)...NormalJoint Township District Memorial HospitalOVon 82-13-6486YIVIAokhgv Visit (RICKEY) CADEN WILLS ([id number]) 1960 M Date Time Provider Department 08/04/23 [...] Take 20 mEq by mouth. - omega 2-syr-qhg-fish oil (FISH OIL) 100-160-1,000 mg cap Take [...] *07/27/2023 Encounter Status:Closed by GIOVANNI MULLIGAN on 08/04/23NormalCDayton Osteopathic HospitalBabaptist health [facility] metabolic 2000 panelon 39-82-1387Qofke gap [Moles/Vol]14 mmol/L Normal9-18[facility] on above:Order Comment: Specimen Type: BLOOD SPECIMEN Ordering Facility: [facility] Address: [address] [place], [place] [address]Performed By: #### 10519-9 #### [facility] CLIA [id number] [address] [place] [address] [place] OF AMERICACalcium [Mass/Vol]8.9 mg/dL Normal8.5-10.2CPremier Health [facility] on above:Order Comment: Specimen Type: BLOOD SPECIMEN Ordering Facility: [facility] Address: [address] [place], [place] [address]Performed By: #### 63280-4 #### [facility] CLIA [id number] [address] [place] [address] [place] AMERICAChloride [Moles/Vol]102 mmol/SOtgmeo91-945XefgenrrgLicking Memorial Hospital on above:Order Comment: Specimen Type: BLOOD SPECIMEN Ordering Facility: [facility] Address: [address] [place], [place] [address]Performed By: #### 87434-6 #### [facility] CLIA [id number] [address] [place] [address] [place] AMERICACO2 [Moles/Vol]23 mmol/L Bzgyqo05-66AndsskgpmLicking Memorial Hospital on above:Order Comment: Specimen Type: BLOOD SPECIMEN Ordering Facility: [facility] Address: [address] [place], [place] [address]Performed By: #### 95488-7 #### [facility] CLIA [id number] [address] [place] [address] [place] AMERICACreatinine [Mass/Vol]0.71 mg/dLLow0.73-1.22[facility] on above:Order Comment: Specimen Type: BLOOD SPECIMEN Ordering Facility: [facility] Address: [address] [place], [place] [address]Performed By: #### 61068-1 #### [facility] CLIA [id number] [address] [place] [address] [place] AMERICACreatinine and Glomerular filtration rate.predicted panel (S/P/Bld)104 mL/min/1.73m???Normal>=60[facility] on above:Order Comment: Specimen Type: BLOOD SPECIMEN Ordering Facility: [facility] Address: [address] [place], [place] [address]Result Comment: Estimated Glomerular Filtration Rate (eGFR) is [...] not accurately reflect actual GFR.Performed By: #### 25067-9 #### [facility] [place] [id number] [address] [place] [address] [place] AMERICAGlucose [Mass/Vol]173 mg/dL Ijbu70-82EcsktvzhmLicking Memorial Hospital on above:Order Comment: Specimen Type: BLOOD SPECIMEN Ordering Facility: [facility] Address: [address] [place], [place] [address]Result Comment: The [place] Diabetes Association (ADA) provides guidance for cutoff [...] Standards of Medical Care in Diabetes 2016, [place] Diabetes Association. Diabetes Care. 2016.39(Suppl 1).Performed By: #### 25240-9 #### [facility] [place] [id number] [address] [place] [address] [place] AMERICAPotassium [Moles/Vol]4.3 mmol/LNormal3.7-5.1CPremier Health [facility] on above:Order Comment: Specimen Type: BLOOD SPECIMEN Ordering Facility: [facility] Address: [address] [place], [place] [address]Performed By: #### 83538-7 #### [facility] [place] [id number] [address] [place] [address] [place] AMERICASodium [Moles/Vol]139 mmol/L Sdzaql327-884NygloiebzLicking Memorial Hospital on above:Order Comment: Specimen Type: BLOOD SPECIMEN Ordering Facility: [facility] Address: [address] [place], [place] [address]Performed By: #### 96110-8 #### [facility] CLIA [id number] [address] [place] [address] [place] AMERICAUrea nitrogen [Mass/Vol]18 mg/dLNormal9-24[facility] on above:Order Comment: Specimen Type: BLOOD SPECIMEN Ordering Facility: [facility] Address: [address] [place], [place] [address]Performed By: #### 28281-2 #### [facility] CLIA [id number] [address] [place] [address] [place] OF AMERICACBC panel Auto (Bld)on 43-57-3135Egfbphgzwem distribution width (RBC) [Ratio]15.8 %High11.5-15.0 [facility] on above:Order Comment: Specimen Type: BLOOD SPECIMEN Ordering Facility: [facility] Address: [address] [place], [place] [address]Performed By: #### 64652-7 #### [facility] CLIA [id number] [address] [place] [address] [place] AMERICAHematocrit (Bld) [Volume fraction]44.7 %Ksfwpn91.0-51.0[facility] on above:Order Comment: Specimen Type: BLOOD SPECIMEN Ordering Facility: [facility] Address: [address] [place], [place] [address]Performed By: #### 82324-2 #### [facility] CLIA [id number] [address] [place], [place] [address] [place] AMERICAHemoglobin (Bld) [Mass/Vol] 14.5 g/bRJhopzm89.0-17.0[facility] on above:Order Comment: Specimen Type: BLOOD SPECIMEN Ordering Facility: [facility] Address: [address] [place], [place] [address]Performed By: #### 88324-4 #### [facility] CLIA [id number] [address] [place], [place] [address]H (RBC) [Entitic mass]27.4 kbJikqfa29.0-34.0[facility] on above:Order Comment: Specimen Type: BLOOD SPECIMEN Ordering Facility: [facility] Address: [address] [place], [place] [address]Performed By: #### 40296-4 #### [facility] CLIA [id number] [address] [place] [address] (RBC) [Mass/Vol]32.4 g/zSIcoonw12.5-36.0[facility] on above:Order Comment: Specimen Type: BLOOD SPECIMEN Ordering Facility: [facility] Address: [address] [place], [place] [address]Performed By: #### 98918-7 #### [facility] CLIA [id number] [address] [place], [place] [address]V (RBC) [Entitic vol]84.3 tJZjcczk81.0-100.0[facility] on above:Order Comment: Specimen Type: BLOOD SPECIMEN Ordering Facility: [facility] Address: [address] [place], [place] [address]Performed By: #### 05614-0 #### [facility] CLIA [id number] [address] [place] [address] RBC (Bld) [#/Vol] 10*3/uLNormal<0.01[facility] on above:Order Comment: Specimen Type: BLOOD SPECIMEN Ordering Facility: [facility] Address: [address] [place], [place] [address]Performed By: #### 72757-4 #### [facility] CLIA [id number] [address] [place], [place] [address]Platelet mean volume (Bld) [Entitic vol]9.6 fLNormal9.0-12.7CPremier Health [facility] on above: Order Comment: Specimen Type: BLOOD SPECIMEN Ordering Facility: [facility] Address: [address] [place], [place] [address]Performed By: #### 36815-1 #### [facility] CLIA [id number] [address] [place] [address] AMERICAPlatelets (Bld) [#/Vol]268 10*3/yLHcxgju857-178PevcwiubtLicking Memorial Hospital on above:Order Comment: Specimen Type: BLOOD SPECIMEN Ordering Facility: [facility] Address: [address] [place], [place] [address]Performed By: #### 93204-8 #### [facility] CLIA [id number] [address] [place], [place] [address]RB (Bld) [#/Vol]5.30 10*6/uLNormal4.20-6.00[facility] on above:Order Comment: Specimen Type: BLOOD SPECIMEN Ordering Facility: [facility] Address: [address] [place], [place] [address]Performed By: #### 21623-9 #### [facility] CLIA [id number] [address] [place], [place] [address]W (Bld) [#/Vol]13.43 10*3/uLHigh3.70-11.00[facility] on above:Order Comment: Specimen Type: BLOOD SPECIMEN Ordering Facility: [facility] Address: [address] [place], [place] [address]Performed By: #### 48980-7 #### [facility] CLIA [id number] [address] [place], [place] [address]CNDSon 31-26-8215AWTTGLQ ID: [id number] Author: JIAN ALBERTO MD Service: Urology Author Type: Resident Type: Discharge Summary Filed: 07/29/2023 12:28 Note Text: Attestation signed by Jian Alberto MD at 07/29/2023 12:28 PM Discussed with resident, agree with claudia Alberto M.D. 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) Operations During Hospitalization: CYSTOSCOPY FLEXIBLE: 13626 (CPT?) SCROTOPLASTY V-Y: 81547 (CPT?) EXCISION, EXCESSIVE SKIN AND SUBCUTANEOUS TISSUE, OTHER AREA prepubic lipectomy with fixation of skin to pubic region: 20372 (CPT?) EXCISION LYSIS PENILE POST-CIRCUMCISION ADHESIONS: 40858 (CPT?) Procedures Performed While Hospitalized: Intubation Reason [...] OiL 100-160-1,000 mg Cap Generic drug: omega 8-ijl-xxj-fish oil insulin aspart U-100 100 unit/mL Commonly [...] [facility] [address] [phone] [place] [id number] acetaminophen 325 mg tablet cephALEXin 500 mg capsule docusate sodium 100 mg capsule oxyCODONE IR 5 mg immediate release tablet Future Appointments: No future appointments. Electronically STEPHANIE (more content not included)...NormalCleveland Clinic Children'S Hospital For RehabilitationANES POSTPROC EVALon 15-41-3012IYXM POSTPROC EVALHNO ID: [id number] Author: CHILANGO CURIEL MD Service: ? Author Type: Anesthesiologist Type: Anesthesia Postprocedure Evaluation Filed: 07/28/2023 13:45 Note Text: POST ANESTHESIA EVALUATION NOTE : 1960 Procedure Summary Date: 07/28/23 Room / Location: [address] [facility] Anesthesia Start: 0950 Anesthesia [...] July 28, 2023 TIME: 1:45 PM CSN: [id number] Campus Medical Center PRE-OPon 01-50-0143NBHE PRE-OPHNO ID: [id number] Author: CHILANGO CURIEL MD Service: ? Author [...] artery disease involving coronary bypass graft of [place] heart without angina pectoris (+) Paroxysmal atrial [...] and consent discussed: yes. Patient / Responsible Constitution Party agrees to proceed: yes Patient / [...] Take 20 mEq by mouth. - omega 5-agk-tda-fish oil (FISH OIL) 100-160-1,000 mg cap Take 1,000 mg by mouth. I have interviewed and examined the patient. I have reviewed the medical record and/or the pre-anesthesia evaluation, pertinent labs, and test results. This contains updated information obtained within 48 hours of Surgery/Procedure. SIGNATURE: Chilango Curiel MD PATIENT NAME: Caden Wills DATE: July 28, 2023 TIME: 9:53 AM CSN: [id number]h O[facility] OP NOTon 47-28-8685YKEII OP NOTHNO ID: [id number] Author: JUICE GEE MD Service: Urology Author Type: Resident Type: Brief Op Note Filed: 07/28/2023 12:38 Note Text: BRIEF OPERATIVE / PROCEDURE NOTE LOG ID: [id number] SURGERY/PROCEDURE DATE: 07/28/2023 INCISION/PROCEDURE START TIME: 10:32 AM INCISION CLOSE/PROCEDURE END TIME: 12:25 PM SURGEON(S)/PROCEDURALIST(S) AND RATE INSERTER(S): Surgeon(s) and Role: * Jian Alberto MD [...] Wills DATE: July 28, 2023 TIME: 12:36 PMNormalCleveland Clinic Children'S Hospital For RehabilitationBabaptist health [facility] metabolic 2000 panelon 21-00-2828Bwday gap [Moles/Vol]13 mmol/LNormal9-18[facility] Comment on above:Order Comment: Specimen Type: BLOOD SPECIMEN Ordering Facility: [facility] Address: [address] [place], [place] [address]Performed By: #### 06549-6 #### [facility] CLIA [id number] [address] [place] [address] [place] AMERICACalcium [Mass/Vol]9.3 mg/dL Normal8.5-10.2CPremier Health [facility] Valley [facility] on above:Order Comment: Specimen Type: BLOOD SPECIMEN Ordering Facility: [facility] Address: [address] [place], [place] [address]Performed By: #### 26693-1 #### [facility] CLIA [id number] [address] [place] [address] [place] AMERICAChloride [Moles/Vol]104 mmol/AGnqymh85-806IggsazuzfLicking Memorial Hospital on above:Order Comment: Specimen Type: BLOOD SPECIMEN Ordering Facility: [facility] Address: [address] [place], [place] [address]Performed By: #### 69954-9 #### [facility] CLIA [id number] [address] [place] [address] [place] AMERICACO2 [Moles/Vol]23 mmol/L Smbdnn07-28FnrziiwzwLicking Memorial Hospital on above:Order Comment: Specimen Type: BLOOD SPECIMEN Ordering Facility: [facility] Address: [address] [place], [place] [address]Performed By: #### 53771-3 #### [facility] CLIA [id number] [address] [place] [address] [place] AMERICACreatinine [Mass/Vol]0.75 mg/dLNormal0.73-1.22[facility] on above:Order Comment: Specimen Type: BLOOD SPECIMEN Ordering Facility: [facility] Address: [address] [place], [place] [address]Performed By: #### 80887-4 #### [facility] CLIA [id number] [address] [place] [address] OF AMERICACreatinine and Glomerular filtration rate.predicted panel (S/P/Bld)103 mL/min/1.73m???Normal>=60[facility] on above:Order Comment: Specimen Type: BLOOD SPECIMEN Ordering Facility: [facility] Address: [address] [place], [place] [address]Result Comment: Estimated Glomerular Filtration Rate (eGFR) is [...] not accurately reflect actual GFR.Performed By: #### 89596-0 #### [facility] CLIA [id number] [address] [place] [address] [place] AMERICAGlucose [Mass/Vol]182 mg/dL Uvvk29-48MbrfqsvnjLicking Memorial Hospital on above:Order Comment: Specimen Type: BLOOD SPECIMEN Ordering Facility: [facility] Address: [address] [place], [place] [address]Result Comment: The [place] Diabetes Association (ADA) provides guidance for cutoff [...] Standards of Medical Care in Diabetes 2016, [place] Diabetes Association. Diabetes Care. 2016.39(Suppl 1).Performed By: #### 93684-4 #### [facility] [place] [id number] [address] [place] [address] [place] OF AMERICAPotassium [Moles/Vol]4.7 mmol/LNormal3.7-5.1CPremier Health [facility] on above:Order Comment: Specimen Type: BLOOD SPECIMEN Ordering Facility: [facility] Address: [address] [place], [place] [address]Performed By: #### 29407-1 #### [facility] CLIA [id number] [address] [place] [address] [place] OF AMERICASodium [Moles/Vol]140 mmol/L Wflmmp054-792CsuhwicxaLicking Memorial Hospital on above:Order Comment: Specimen Type: BLOOD SPECIMEN Ordering Facility: [facility] Address: [address] [place], [place] [address]Performed By: #### 94669-2 #### [facility] CLIA [id number] [address] [place] [address] [place] AMERICAUrea nitrogen [Mass/Vol]16 mg/dLNormal9-24[facility] on above:Order Comment: Specimen Type: BLOOD SPECIMEN Ordering Facility: [facility] Address: [address] [place], [place] [address]Performed By: #### 58343-2 #### [facility] CLIA [id number] [address] [place], [place] [address] [place] OF AMERICACBC panel Auto (Bld)on 11-65-8038Hkwcrxfkbra distribution width (RBC) [Ratio]17.2 %High11.5-15.0 [facility] on above:Order Comment: Specimen Type: BLOOD SPECIMEN Ordering Facility: [facility] Address: [address] [place], [place] [address]Performed By: #### 96882-3 #### [facility] CLIA [id number] [address] [place] [address] [place] AMERICAHematocrit (Bld) [Volume fraction]50.7 %Pinukh78.0-51.0[facility] on above:Order Comment: Specimen Type: BLOOD SPECIMEN Ordering Facility: [facility] Address: [address] [place], [place] [address]Performed By: #### 79594-8 #### [facility] IA [id number] [address] [place] [address] [place] AMERICAHemoglobin (Bld) [Mass/Vol] 16.6 g/dTFeopad51.0-17.0[facility] on above:Order Comment: Specimen Type: BLOOD SPECIMEN Ordering Facility: [facility] Address: [address] [place], [place] [address]Performed By: #### 58057-7 #### [facility] CLIA [id number] [address] [place] [address] [place] AMERICAMCH (RBC) [Entitic mass]27.7 gtZkbpnc96.0-34.0[facility] on above:Order Comment: Specimen Type: BLOOD SPECIMEN Ordering Facility: [facility] Address: [address] [place], [place] [address]Performed By: #### 80828-2 #### [facility] IA [id number] [address]ETMCHC (RBC) [Mass/Vol]32.7 g/aBWmpwxc25.5-36.0[facility] on above:Order Comment: Specimen Type: BLOOD SPECIMEN Ordering Facility: [facility] Address: [address] [place], [place] [address]Performed By: #### 75627-8 #### [facility] CLIA [id number] [address] [place], [place] [address]MCV (RBC) [Entitic vol]84.6 iYVpzvmp75.0-100.0[facility] on above:Order Comment: Specimen Type: BLOOD SPECIMEN Ordering Facility: [facility] Address: [address] [place], [place] [address]Performed By: #### 73373-7 #### [facility] CLIA [id number] [address] [place] [address] AMERICANucleated RBC (Bld) [#/Vol] 10*3/uLNormal<0.01[facility] on above:Order Comment: Specimen Type: BLOOD SPECIMEN Ordering Facility: [facility] Address: [address] [place], [place] [address]Performed By: #### 34646-3 #### [facility] CLIA [id number] [address] [place] [address] [place] AMERICAPlatelet mean volume (Bld) [Entitic vol]9.5 fLNormal9.0-12.7CPremier [facility] on above: Order Comment: Specimen Type: BLOOD SPECIMEN Ordering Facility: [facility] Address: [address] [place], [place] [address]Performed By: #### 26987-4 #### [facility] CLIA [id number] [address] [place] [address] [place] AMERICAPlatelets (Bld) [#/Vol]284 10*3/kUOdqcuy460-971Urriwsqhe Clinic ClevelandComment on above:Order Comment: Specimen Type: BLOOD SPECIMEN Ordering Facility: [facility] Address: [address] [place], [place] [address]Performed By: #### 92925-0 #### [facility] CLIA [id number] [address] [place] [address] AMERICARB (Bld) [#/Vol]5.99 10*6/uLNormal4.20-6.00[facility] on above:Order Comment: Specimen Type: BLOOD SPECIMEN Ordering Facility: [facility] Address: [address] [place], [place] [address]Performed By: #### 59418-6 #### [facility] CLIA [id number] [address] [place], [place] [address]W (Bld) [#/Vol]10.10 10*3/uLNormal3.70-11.00[facility] on above:Order Comment: Specimen Type: BLOOD SPECIMEN Ordering Facility: [facility] Address: [address] [place], [place] [address]Performed By: #### 06665-1 #### [facility] CLIA [id number] [address] [place] [address] PROGon 07-28-2023 NURSING PRONO ID: [id number] Author: DAVID MCLAUGHLIN, RN Service: ? Author Type: Registered Nurse Type: Nursing Progress Note Filed: 07/28/2023 14:53 Note Text: Admission/Transfer Note PATIENT NAME: Caden Wills Patient Location: [place] [address]/M081- Room: [place] [address] Patient admitted from PACU via bed in stable condition. Actions taken: Patient oriented to room, call light function, prescribed activities, Patient rights, and Quiet at night. Patient belongings with patient. This note was completed by: David GonzalezCleveland Clinic [facility] PATHOLOGYon [id number] REPORTNormalCPremier Health [facility] on above:Order Comment: Specimen Type: BLOOD SPECIMEN Ordering Facility: [facility] Address: [address] [place] [address] Comment: Surgical Pathology Report Case: [id number] Authorizing Provider: Jian Alberto MD Collected: 07/28/2023 10:42 AM Ordering Location: Admitting Received: 07/28/2023 12:18 PM Pathologist: Rajat Corbin MD Specimen: Soft Tissue (Not otherwise specified), penile skinPerformed By: #### 35985-8 #### [facility] CLIA [id number] [address] [place] [address] [place] AMERICACLINICAL HISTORYNormal [facility] on above:Order Comment: Specimen Type: BLOOD SPECIMEN Ordering Facility: [facility] Address: [address] [place] [address] Comment: 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 An immunohistochemical stain for T. pallidum is negative. These findings support the above diagnosis. Laboratory Developed Test (LDT) Disclaimer: Performance characteristics of immunohistochemical, immunofluorescent and chromogenic in-situ hybridization tests have been determined by the performing laboratory within [facility]???s [place] Pathology and Laboratory Medicine Department ([facility], [facility] [place] [place], [facility], [facility], [facility], [facility], or [facility]) in a manner consistent with CLIA requirements. One or more of these tests havenot been cleared or approved by the FDA. [facility] is regulated under CLIA as qualified to perform high-complexity testing. These tests are used for clinical purposes. They should not be regarded as investigational or for research. Positive and negative controls stain appropriately.Performed By: #### 65354-3 #### [facility] CLIA [id number] [address] [place] [address] on above:Order Comment: Specimen Type: BLOOD SPECIMEN Ordering Facility: [facility] Address: [address] [place], [place] [address]Result Comment: Penile skin, excision: - Benign skin with acute and chronic inflammation and rare fungal organisms morphologically consistent with Sydnee species. Performed By: #### 26296-6 #### [facility] CLIA [id number] [address] [place] [address] LABNoDayton VA Medical Center on above:Order Comment: Specimen Type: BLOOD SPECIMEN Ordering Facility: [facility] Address: [address] [place], [place] [address]Result Comment: Diagnostic interpretation performed at [facility], [address] [place], [place] [id number] CLIA# [id number] Sample Shoe Inspector And Reworker: Jose Power M.D.Performed By: #### 91266-0 #### [facility] CLIA [id number] [address] [place] [address] DESCRIPTIONChillicothe Hospital on above:Order Comment: Specimen Type: BLOOD SPECIMEN Ordering Facility: [facility] Address: [address] [place], [place] [address]Result Comment: A. Soft Tissue (Not otherwise specified) Received fresh labeled penile skin is a rectangular excision of pink skin measuring 4.5 x 2.5 x 0.3 cm. The skin surface is smooth and glistening without lesion. The resection margin is cauterized and roughened. The cut surfaces are soft and glistening. Seasoning Mixer sections are submitted in cassette A1. OLIVA July 28, 2023 12:39 PM Gross examination performed at [facility], [address] [place] [address] CLIA# [id number] By: #### 27056-4 #### [facility] CLIA [id number] [address] [place] [address] STATES OF AMERICACBC panel Auto (Bld)on 70-96-4508Nlckcaztqyn distribution width (RBC) [Ratio]16.1 %High11.5-15.0 [facility] on above:Order Comment: Specimen Type: BLOOD SPECIMEN Ordering Facility: [facility] Address: [address] [place], [place] [address]Performed By: #### 17921-4 #### [facility] CLIA [id number] [address] [place] [address] STATES OF AMERICAHematocrit (Bld) [Volume fraction]51.6 %High39.0-51.0[facility] on above:Order Comment: Specimen Type: BLOOD SPECIMEN Ordering Facility: [facility] Address: [address] [place], [place] [address]Performed By: #### 59145-7 #### [facility] CLIA [id number] [address] [place] [address] [place] AMERICAHemoglobin (Bld) [Mass/Vol] 16.6 g/uLEddniy96.0-17.0[facility] on above:Order Comment: Specimen Type: BLOOD SPECIMEN Ordering Facility: [facility] Address: [address] [place], [place] [address]Performed By: #### 33158-6 #### [facility] CLIA [id number] [address] [place] [address] [place] AMERICAMCH (RBC) [Entitic mass]27.6 hzOwdaxg47.0-34.0[facility] on above:Order Comment: Specimen Type: BLOOD SPECIMEN Ordering Facility: [facility] Address: [address] [place], [place] [address]Performed By: #### 53288-4 #### [facility] CLIA [id number] [address] [place], [place] [address]MCHC (RBC) [Mass/Vol]32.2 g/sLKzmzdd39.5-36.0[facility] on above:Order Comment: Specimen Type: BLOOD SPECIMEN Ordering Facility: [facility] Address: [address] [place], [place] [address]Performed By: #### 78847-6 #### [facility] CLIA [id number] [address] [place] [address] STATES OF [facility] MEDICAL CENTERMCV (RBC) [Entitic vol]85.7 cPUqenls54.0-100.0[facility] on above:Order Comment: Specimen Type: BLOOD SPECIMEN Ordering Facility: [facility] Address: [address] [place], [place] [address]Performed By: #### 93063-2 #### [facility] CLIA [id number] [address] [place], [place] [address]ucleated RBC (Bld) [#/Vol] 10*3/uLNormal<0.01[facility] on above:Order Comment: Specimen Type: BLOOD SPECIMEN Ordering Facility: [facility] Address: [address] [place], [place] [address]Performed By: #### 42893-5 #### [facility] CLIA [id number] [address] [place] [address] STATES AUB[facility] COMMUNITY HOSPITALPlatelet mean volume (Bld) [Entitic vol]10.3 fLNormal9.0-12.7CPremier Health [facility] on above: Order Comment: Specimen Type: BLOOD SPECIMEN Ordering Facility: [facility] Address: [address] [place], [place] [address]Performed By: #### 96388-6 #### [facility] CLIA [id number] [address] [place], [place] [address]Platelets (Bld) [#/Vol]264 10*3/rAOzsves910-239UtvocjvloLicking Memorial Hospital on above:Order Comment: Specimen Type: BLOOD SPECIMEN Ordering Facility: [facility] Address: [address] [place], [place] [address]Performed By: #### 09939-8 #### [facility] CLIA [id number] [address] [place], [place] [address]RB (d) [#/Vol]6.02 10*6/uLHigh4.20-6.00[facility] on above:Order Comment: Specimen Type: BLOOD SPECIMEN Ordering Facility: [facility] Address: [address] [place], [place] [address]Performed By: #### 63579-1 #### [facility] IA [id number] [address] [place], [place] [address]W (Bld) [#/Vol]10.12 10*3/uLNormal3.70-11.00[facility] on above:Order Comment: Specimen Type: BLOOD SPECIMEN Ordering Facility: [facility] Address: [address] [place], [place] [address]Performed By: #### 18398-3 #### [facility] IA [id number] [address] [place] [address] [place] OF AMERICAComprehensive metabolic 2000 panelon 31-09-3426Zvhocjr [Mass/Vol]4.3 g/dLNormal3.9-4.9CPremier Health [facility] on above:Order Comment: Specimen Type: BLOOD SPECIMEN Ordering Facility: [facility] Address: [address] [place], [place] [address]Performed By: #### 46741-8 #### [facility] CLIA [id number] [address] [place] [address] [place] OF AMERICAALP [Catalytic activity/Vol] 100 U/GYyhbxd16-662GtlsuamikLicking Memorial Hospital on above:Order Comment: Specimen Type: BLOOD SPECIMEN Ordering Facility: [facility] Address: [address] [place], [place] [address]Performed By: #### 72305-4 #### [facility] CLIA [id number] [address] [place], [place] [address] [place] AMERICAALT [Catalytic activity/Vol] 33 U/QNrpesk43-41CcuadtcviLicking Memorial Hospital on above:Order Comment: Specimen Type: BLOOD SPECIMEN Ordering Facility: [facility] Address: [address] [place], [place] [address]Performed By: #### 00779-8 #### [facility] CLIA [id number] [address] [place] [address] [place] AMERICAAnion gap [Moles/Vol]14 mmol/LNormal9-18[facility] on above:Order Comment: Specimen Type: BLOOD SPECIMEN Ordering Facility: [facility] Address: [address] [place], [place] [address]Performed By: #### 56398-3 #### [facility] CLIA [id number] [address] [place], [place] [address] [place] AMERICAAST [Catalytic activity/Vol] 26 U/UWagwbd92-58FueqkrxmlLicking Memorial Hospital on above:Order Comment: Specimen Type: BLOOD SPECIMEN Ordering Facility: [facility] Address: [address] [place], [place] [address]Performed By: #### 59483-8 #### [facility] CLIA [id number] [address] [place] [address] [place] AMERICABilirubin [Mass/Vol]0.2 mg/dLNormal0.2-1.3CPremier Health [facility] on above:Order Comment: Specimen Type: BLOOD SPECIMEN Ordering Facility: [facility] Address: [address] [place], [place] [address]Performed By: #### 31834-2 #### [facility] CLIA [id number] [address] [address] [place] AMERICACalcium [Mass/Vol]10.5 mg/dL High8.5-10.2CPremier Health [facility] on above:Order Comment: Specimen Type: BLOOD SPECIMEN Ordering Facility: [facility] Address: [address] [place], [place] [address]Performed By: #### 79232-5 #### [facility] CLIA [id number] [address] [place], [place] [address] [place] OF AMERICAChloride [Moles/Vol]101 mmol/QPcemkl65-064QrrohrrfrLicking Memorial Hospital on above:Order Comment: Specimen Type: BLOOD SPECIMEN Ordering Facility: [facility] Address: [address] [place], [place] [address]Performed By: #### 46910-0 #### [facility] CLIA [id number] [address] [place] [address] [place] AMERICACO2 [Moles/Vol]25 mmol/L Ssrvdo62-12AlgdydjxqLicking Memorial Hospital on above:Order Comment: Specimen Type: BLOOD SPECIMEN Ordering Facility: [facility] Address: [address] [place], [place] [address]Performed By: #### 14484-2 #### [facility] CLIA [id number] [address] [place] [id number] [place] AMERICACreatinine [Mass/Vol]0.73 mg/dLNormal0.73-1.22[facility] on above:Order Comment: Specimen Type: BLOOD SPECIMEN Ordering Facility: [facility] Address: [address] [place], [place] [address]Performed By: #### 83756-6 #### [facility] CLIA [id number] [address] [place] [address] [place] AMERICACreatinine and Glomerular filtration rate.predicted panel (S/P/Bld)104 mL/min/1.73m???Normal>=60[facility] on above:Order Comment: Specimen Type: BLOOD SPECIMEN Ordering Facility: [facility] Address: [address] [place], [place] [address]Result Comment: Estimated Glomerular Filtration Rate (eGFR) is [...] not accurately reflect actual GFR.Performed By: #### 52666-1 #### [facility] CLIA [id number] [address] [place] [address] [place] AMERICAGlucose [Mass/Vol]82 mg/dL Nkvuou12-70QcabktpqcLicking Memorial Hospital on above:Order Comment: Specimen Type: BLOOD SPECIMEN Ordering Facility: [facility] Address: [address] [place] [address] Comment: The [place] Diabetes Association (ADA) provides guidance for cutoff [...] Standards of Medical Care in Diabetes 2016, [place] Diabetes Association. Diabetes Care. 2016.39(Suppl 1).Performed By: #### 86087-4 #### [facility] CLIA [id number] [address] [place] [address] [place] AMERICAPotassium [Moles/Vol]4.1 mmol/LNormal3.7-5.1CPremier [facility] on above:Order Comment: Specimen Type: BLOOD SPECIMEN Ordering Facility: [facility] Address: [address] [place], [place] [address]Performed By: #### 25885-9 #### [facility] CLIA [id number] [address] [place] [address] [place] AMERICAProtein [Mass/Vol]7.6 g/dL Normal6.3-8.0[facility] on above:Order Comment: Specimen Type: BLOOD SPECIMEN Ordering Facility: [facility] Address: [address] [place], [place] [address]Performed By: #### 07150-1 #### [facility] CLIA [id number] [address] [place] [address] [place] AMERICASodium [Moles/Vol]140 mmol/L Bqesau152-057EqgypkdglLicking Memorial Hospital on above:Order Comment: Specimen Type: BLOOD SPECIMEN Ordering Facility: [facility] Address: [address] [place], [place] [address]Performed By: #### 73759-4 #### [facility] CLIA [id number] [address] [place] [address] [place] AMERICAUrea nitrogen [Mass/Vol]17 mg/dLNormal9-24[facility] on above:Order Comment: Specimen Type: BLOOD SPECIMEN Ordering Facility: [facility] Address: [address] [place], [place] [address]Performed By: #### 52157-7 #### [facility] CLIA [id number] [address] [place] [address] [place] AMERICAErythrocyte distribution width Auto (RBC) [Ratio]on 25-21-2248Hlkjbdtntij distribution width (RBC) [Ratio]16.1 %High11.5-15.0Avita Health SystemGlucose mean value [Mass/volume] in Blood Estimated from glycated hemoglobinon 41-96-2748Cllgldi glucose Estimated from glycated hemoglobin (Bld) [Mass/Vol]157 mg/dLAvita Health SystemComment on above:eAG: (Estimated average glucose) is a calculated value from HgbA1c and is promotions representative of the average blood glucose level in the last 2-3 month period.HISTORY PHYSICALon 71-94-4278ADNXHIM PHYSICAL HNO ID: [id number] Author: KEVIN GOLDSMITH APRN.CUBING MACHINE TENDER Service: ? Author Type: Nurse Practitioner Type: [...] artery disease involving coronary bypass graft of [place] heart without angina pectoris CAD, hx of [place] s/p CABG x 5 in Dec 2021. [...] cardiac events (< 1% chance of , [place], CHF, malignant ventricular arrhythmias or high grade [...] note 06/19/23 notes the following, Echo 03/30/22 ([facility]) - Global LV systolic function is [...] have a large neck STOP-Bang Score: 5 WWC7GK1-CTSq Score: Age: <65 Sex: male CHF history: Yes Hypertension history: Yes Stroke/TIA/thromboembolism history: No Vascular disease history: Yes Diabetes history: Yes IQN6LX8-MRIx Score: 4 ARISCAT Score: Age: 51-80 Preoperative [...] DOS review of labs. (more content not included)...NormalCleveland Clinic Children'S Hospital For RehabilitationHbA1c (Bld)on 40-68-8894Lsngueq glucose Estimated from glycated hemoglobin (Bld) [Mass/Vol]157 mg/dLWayne HospitalHbA1c (Bld) [Mass fraction]7.1 %High4.3 - 5.6 %[facility] glucose Estimated from glycated hemoglobin (Bld) [Mass/Vol]157 mg/dLNormalCPremier Health [facility] on above:Order Comment: Specimen Type: BLOOD SPECIMEN Ordering Facility: [facility] Address: [address] [place], [place] [address]Result Comment: eAG: (Estimated average glucose) is a calculated value from HgbA1c and is promotions representative of the average blood glucose level in the last 2-3 month period.Performed By: #### 26700-4 #### [facility] CLIA [id number] [address] [place], [place] [address] [address] STATES OF PEEEZZXYxY3s (Bld) [Mass fraction] 7.1 %High4.3-5.6CPremier Health [facility] on above:Order Comment: Specimen Type: BLOOD SPECIMEN Ordering Facility: [facility] Address: [address] [place], [place] [address] Comment: [place] Diabetes Association guidelines indicate that patients with HgbA1c in the range 5.7-6.4% are at increased risk for development of diabetes, and intervention by lifestyle modification may be beneficial. HgbA1c greater or equal to 6.5% is considered diagnostic of diabetes.Performed By: #### 91462-6 #### [facility] CLIA [id number] [address] [place] [address] [place] AMERICAHematocrit Auto (Bld) [Volume fraction]on 74-37-1635Cihskwlhlw (Bld) [Volume fraction]51.6 %High 39.0-51.0Avita Health SystemHemoglobin [Mass/volume] in Bloodon 44-07-0566Ylkewamdby (Bld) [Mass/Vol]16.6 g/dL13.0-17.0[facility] Health SystemLaboratory - Chemistry and Chemistry - challengeon 07-27-2023 Albumin [Mass/Vol]4.3 g/dL3.9-4.9[facility] Health SystemALP [Catalytic activity/Vol]100 U/W58-486AplgkdmdrAvita Health SystemALT [Catalytic activity/Vol]33 U/O25-10VhesvubjsAvita Health SystemAST [Catalytic activity/Vol]26 U/F36-65AybjbwenlAvita Health SystemBilirubin [Mass/Vol]0.2 mg/dL0.2-1.3FThe Bellevue HospitalCalcium [Mass/Vol]10.5 mg/dLHigh 8.5-10.2FThe Bellevue HospitalChloride [Moles/Vol]101 mmol/L97-105 [facility] SystemCO2 [Moles/Vol]25 mmol/P79-18UteoxgatpAvita Health SystemCreatinine [Mass/Vol]0.73 mg/dL0.73-1.22[facility] SystemGlucose [Mass/Vol]82 mg/tQ97-32PvzvjerzaAvita Health System Comment on above:The [place] Diabetes Association (ADA) provides guidance for cutoff [...] diabetes.Reference: Standardsof Medical Care in Diabetes 2016, [place] Diabetes Association. Diabetes Care. 2016.39(Suppl 1).Potassium [Moles/Vol]4.1 mmol/L3.7-5.1FKing's Daughters Medical Center Ohioodium [Moles/Vol]140 mmol/M107-674OyzpkdozlAvita Health SystemUrea nitrogen [Mass/Vol]17 mg/dL9-24Av[facility] SystemLaboratory - Hematology and Cell countson 45-11-0291UfK1o (Bld) [Mass fraction]7.1 %High4.3-5.6FThe Bellevue HospitalComment on above: [place] Diabetes Association guidelines indicate that patients with HgbA1c in the range 5.7-6.4% are at increased risk for development of diabetes, and intervention by lifestyle modification may be beneficial. HgbA1c greater or equal to 6.5% is considered diagnostic of diabetes.Leukocytes [#/volume] corrected for nucleated erythrocytes in Blood by Automated counon 25-77-6949NCM corrected for nucl RBC Auto (Bld) [#/Vol]10.12 k/uL3.70-11.00[facility] SystemH Auto (RBC) [Entitic mass]on 95-30-6827ACZ (RBC) [Entitic mass] 27.6 pg26.0-34.0[facility] Health SystemMCHC Auto (RBC) [Mass/Vol]on 82-30-1294MBKN (RBC) [Mass/Vol]32.2 g/dL30.5-36.0[facility] SystemMCV Auto (RBC) [Entitic vol]on 43-80-4656QCD (RBC) [Entitic vol]85.7 fL 80.0-100.0[facility] Health SystemNo Panel Informationon 07-27-2023 Estimated GFR (CKD-EPI)104 mL/min/1.73m???>=60[facility] Comment on above:Estimated Glomerular Filtration Rate (eGFR) [...] reflect actual GFR.Nucleated RBC Auto (Bld) [#/Vol]on 14-66-1546Ygpxodmcp RBC (Bld) [#/Vol]10*3/uL<0.01Avita Health SystemPlatelet mean volume Auto (Bld) [Entitic vol]on 45-23-2693Iwotljrq mean volume (Bld) [Entitic vol]10.3 fL9.0-12.7FThe Bellevue HospitalPlatelets Auto (Bld) [#/Vol]on 04-21-6174Zfaoixcxx (Bld) [#/Vol]264 10*3/bS759-751GlvzbuzkgAvita Health SystemProtein [Mass/volume] in Serum or Plasmaon 82-09-6996Yfvwnbx [Mass/Vol]7.6 g/dL6.3-8.0[facility] Health SystemRBC Auto (Bld) [#/Vol]on 18-77-5535WKI (Bld) [#/Vol]6.02 10*6/uLHigh4.20-6.00[facility] Orthopedic Centererum or plasma anion gap determinationon 26-40-6617Nzbrw gap [Moles/Vol]14 mmol/L9-18FThe Bellevue HospitalCNPNon 42-92-3576BJINOprpwsvkq (RICKEY) CADEN WILLS ([id number]) 1960 M Date Time Provider Department 07/18/23 [...] round with a 6:[address] [facility]. States that he will be going home after pre ops on 07/26 and coming back the following day. No other questions or concerns expressed. Noy Mary RN Allergies As of Date: 07/18/2023 (No Known Allergies) Date Reviewed: 06/19/2023 Reviewed by: Jessica Ordaz RN - Fully Assessed Reason for Visit: Direct Mail Marketer - Other [3602] Prescriptions as of 07/18/2023 [...] Take 20 mEq by mouth. - omega 7-sss-jwl-fish oil (FISH OIL) 100-160-1,000 mg cap Take 1,000 mg by mouth. - bumetanide (BUMEX ORAL) Take by mouth. 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] 05/03/2023 Scarring of penis [N48.6] 05/03/2023 Erectile dysfunction associated with type 2 beverley*05/03/2023 Encounter Status:Closed by NOY MARY on 07/18/23NoParkview HealthHbA1c HPLC (Bld) [Mass fraction]on 70-86-4234IoA4i (Bld) [Mass fraction]7.4 %[facility]ita Health SystemNo Panel Informationon 06-21-2023 Bedside Anwlrbf070ZqizsfehbAvita Health SystemCNPNon 52-66-3000CGOD Telephone (UROCARMEN) CADEN WILLS ([id number]) 1960 M Date Time Provider Department 06/20/23 NOY MARY During your visit today, we recorded the following information about you: Noy Mary RN 06/20/2023 12:26 PM Signed Called Caden Wills and [facility] to confirm surgery date of 07/[address] Alberto. Discussed pre op testing on 07/26 in [place]. Cardiology clearance appointment on 06/18 with Ligia Colmenares MD Local cardiology clearance appointment on 06/18 with Simba Kasper MD ([facility] - ph [phone], fx [phone]) Will send urine culture via regular mail [...] RN - Fully Assessed Reason for Visit: Direct Mail Marketer - Other [1794] Prescriptions as of 06/20/2023 - insulin glargine [...] Take 20 mEq by mouth. - omega 2-oov-mvj-fish oil (FISH OIL) 100-160-1,000 mg cap Take 1,000 mg by mouth. - bumetanide (BUMEX ORAL) Take by mouth. 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] 05/03/2023 Scarring of penis [N48.6] 05/03/2023 Erectile dysfunction associated with type 2 beverley*05/03/2023 Encounter Status:Closed by NOY MARY on 06/20/23NormalCRiverview Health Institute 60-39-9845BYJZMlasjp TextNormWyandot Memorial Hospital 45-82-7699MSPPVcwqyz Visit (CARD) CADEN WILLS ([id number]) 1960 M Date Time Provider Department 06/19/23 1:00 PM [facility]IA [facility]MENARES [facility] During your visit today, we recorded the following information about you: Pulse Blood pressure Weight 68/minute 112/68 124.3 kg Ligia Colmenares MD 06/19/2023 1:23 PM Signed [facility] V[facility] [place] Rob [place]orden Department of Cardiovascular Medicine SECTION [...] furniture (8.00 METs). 12/06/2022 Robyn Miller Cardiology- [facility] HPI Pleasant 62-year-old man with [...] 1 tablet by mouth every afternoon. omega 2-obr-qnd-fish oil (FISH OIL) 100-160-1,000 mg cap Take [...] 05/03/2023 67 Last 3 (more content not included)...NormalWayne Hospital ClevelandCholesterol in LDL Calc [Mass/Vol]on 90-66-4781Fcuuqfbbzik in LDL [Mass/Vol]66.0 mg/dLAvita Health SystemComment on above:<100 mg/dl JFWDRSM643-756 mg/dl NEAR OR ABOVE EGIARPS626-093 mg/dl BORDERLINE QDHM633-817 mg/dl HIGH>190 mg/dl VERY HIGHCholesterol in VLDL Calc [Mass/Vol]on 06-19-2023 Cholesterol in VLDL [Mass/Vol]43.0 mg/dLAvita Health SystemECG COMPLETEon 10-82-2923Jxlxey Rate68 BPMWayne HospitalCalculated P Axis53 degreesWayne HospitalCalculated R Axis20 degreesWayne HospitalCalculated T Axis86 degreesWayne HospitalP-R Daposomp612 msCleveland ClinicQRS Jnnwdvjg63 msCleveland ClinicQT Wbooylva358 msCleveland ClinicQTC Calculation (Bazett)440 msCleveland ClinicVentricular Rate68 BPMFayette County Memorial Hospital COMPLETEVentricular Rate : 68 BPM Atrial Rate : 68 BPM P-R Interval : 188 ms QRS Duration : 88 ms Q-T Interval : 414 ms QTC Calculation(Bazett) : 440 ms Calculated P [employer] [place] : 53 degrees Calculated R [employer] [place] : 20 degrees Calculated T [employer] [place] : 86 degrees NORMAL SINUS RHYTHM LOW VOLTAGE QRS NONSPECIFIC ST ABNORMALITY ABNORMAL ECG Confirmed by LIGIA COLMENARES M.D. ([id number]), material expeditor Lainey Agee ([id number]) on 06/19/2023 2:11:39 PM NAME : CADEN WILLS PID : [id number] : 1960 Gender : Male Race : Unknown ORD : [id number] Procedure Date : Jun 19 2023 13:03:26 Edit Date : Jun 19 2023 14:11:40 Diagnosis: NORMAL SINUS RHYTHM LOW VOLTAGE QRS NONSPECIFIC ST ABNORMALITY ABNORMAL ECG Confirmed by LIGIA COLMENARES M.D. ([id number]), material expeditor Lainey Agee ([id number]) on 06/19/2023 2:11:39 PM Test Reason : Location : 105 : [facility] Overread By : LIGIA COLMENARES M.D. Edited By : Lainey Agee Referred By : LIGIA COLMENARES Acquired by : ,[facility] - DublinEstimated glomerular filtration rate (GFR) non- Americanon 25-83-8802BQX/1.73 sq M.predicted among non- blacks MDRD (S/P/Bld) [Vol rate/Area]mL/min/{1.73_m2}>=60[facility] SystemLaboratory - Chemistry and Chemistry - challengeon 06-19-2023 Calcium [Mass/Vol]8.7 mg/dL8.5-10.1FThe Bellevue HospitalChloride [Moles/Vol]103 mmol/Z89-137JovicpzbxAvita Health SystemCholesterol [Mass/Vol]141 mg/dL<=200Av[facility] Health SystemCholesterol in HDL [Mass/Vol]32 mg/qD36-19YupdiibhyAvita Health SystemComment on above:> or =60 mg/dl - LOW CARDIOVASCULAR RISK<40 mg/dl - HIGH CARDIOVASCULAR RISKCO2 [Moles/Vol]29.5 mmol/L21.0-32.0[facility] SystemCreatinine [Mass/Vol]0.86 mg/dL0.70-1.30Avita Health SystemGFR/1.73 sq M.predicted MDRD (S/P/Bld) [Vol rate/Area]mL/min/{1.73_m2}>=60[facility] SystemGlucose [Mass/Vol]143 mg/gJ30-568GtkuqxlxrAvita Health System Potassium [Moles/Vol]4.2 mmol/L3.5-5.1FKing's Daughters Medical Center Ohioodium [Moles/Vol]141 mmol/D008-582GrineqrqyAvita Health SystemTriglyceride [Mass/Vol]215 mg/dL<=150Av[facility] Health SystemUrea nitrogen [Mass/Vol]15.0 mg/dL7.0-18.0Avita Health SystemUrea nitrogen/Creatinine [Mass ratio]17.4 mg/mgCrystal Clinic Orthopedic Centererum or plasma anion gap determinationon 33-74-0668Mikbg gap [Moles/Vol]12.7 mmol/L [facility] Orthopedic Centererum or plasma total cholesterol/high density lipoprotein (HDL) cholesterol mass evelyn 48-58-2591Ooxqqiblvsm.total/Cholesterol in HDL [Mass ratio]4.4 {ratio}Avita Health SystemComment on above:3.3 - 4.4 LOW RISK4.4 - 7.1 AVERAGE RISK7.1 - 11.0 MODERATE RISK>11.0 HIGH RISKCNPNon 31-82-9331YGKJViksoyvar (UROLMN) CADEN WILLS ([id number]) 1960 M Date Time Provider Department 06/14/23 NOY MARY During your visit today, we recorded the following information about you: Noy Mary RN 06/14/2023 9:45 AM Signed Called Caden Wills and LVM to confirm surgery date of 07/[address] Alberto. Discussed pre op testing on 07/26 in [place], or he could make two trips. Asked him to confirm Asked patient to confirm receipt, and voice any questions or concerns. Number provided. 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 - omega 8-tbd-mzw-fish oil (FISH OIL) 100-160-1,000 mg cap Take 1,000 mg by mouth. - bumetanide (BUMEX ORAL) Take by mouth. 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 - omega 2-nlh-mhf-fish oil (FISH OIL) 100-160-1,000 mg cap Take 1,000 mg by mouth. - bumetanide (BUMEX ORAL) Take by mouth. 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 Hospitalation Noteon 62-73-5010Wukmxuyjfpvb Note [id number]#1.00TIFFNormalSt. Charles HospitalCNOVon 98-27-5882RRTJVetupl Visit (UROLMN) CADEN WILLS ([id number]) 1960 M Date Time Provider Department 05/03/23 2:00 PM JIAN ALBERTO During your visit today, we recorded the following information about you: Pulse Blood pressure Weight Height 67/minute 137/78 123.4 kg 1.778 m Jian Alberto MD 05/03/2023 2:28 PM Signed [facility] NEW PATIENT HISTORY AND PHYSICAL EXAM PATIENT INFO: Caden Wills 63 year old REFERRING M.D.: Antonia Bush MD [address] [place] [address] This consult was requested by Dr. Bush for an opinion regarding buried penis and erectile dysfunction, and my final recommendations will be communicated to the requesting health care provider by way of the shared medical record for internal providers or letter via the [employer] for external providers. 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 , interested in future sexual life. MEDICATIONS: [...] pending PVR noted ASSESSMENT/PLAN: (more content not included)...NormalWayne Hospital ClevelandURINALYSIS, REFLEX MICROSCOPICon 45-31-7566Elahiaqwv Ql (U)NegativeNegativeCleveland ClinicClarity (Unsp spec)ClearClearCleveland ClinicColor (U)Light YellowYellowCleBarberton Citizens HospitalGlucose Test strip (U) [Mass/Vol]4+AbnormalTrace, NegativeWayne Hospital Hemoglobin Ql (U)NegativeNegative, TraceWayne HospitalKetones Ql (U)Negative Negative, TraceWayne HospitalLeukocyte esterase Test strip Ql (U)25 Quintin/uL Negative, 25 Quintin/uLCleBarberton Citizens HospitalNitrite Ql (U)NegativeNegativeWayne HospitalpH (U)5.5 [pH]5.0 - 8.0Wayne HospitalProtein (U) [Mass/Vol]Negative Trace, NegativeCincinnati Children's Hospital Medical Centerpecific gravity (U) [Rel density]1.587Kkth2.005 - 1.030CleBarberton Citizens HospitalUrobilinogen Ql (U)NegativeNegativeWayne Hospital Bilirubin Ql (U)NegativeNormalNegativeWayne Hospital ClevelandComment on above:Order Comment: Specimen Type: BLOOD SPECIMEN Ordering Facility: [facility] Address: [address] [place], [place] [address]Performed By: #### [id number] #### [facility] CLIA [id number] [address] [place] [address] [place] OF AMERICAClarity (Unsp spec)Clear NormalClearCMiddletown HospitalvelandI-70 Community Hospital on above:Order Comment: Specimen Type: BLOOD SPECIMEN Ordering Facility: [facility] Address: [address] [place], [place] [address]Performed By: #### 17106-9 #### [facility] CLIA [id number] [address] [place] [address] [place] AMERICAColor (U)Light YellowNormal YellowCleDunlap Memorial HospitalComcovenant medical center on above:Order Comment: Specimen Type: BLOOD SPECIMEN Ordering Facility: [facility] Address: [address] [place], [place] [address]Performed By: #### 42588-9 #### [facility] CLIA [id number] [address] [place] [address] [place] OF AMERICAGlucose Test strip (U) [Mass/Vol]4+AbnormalTrace, NegativeLicking Memorial Hospital on above: Order Comment: Specimen Type: BLOOD SPECIMEN Ordering Facility: [facility] Address: [address] [place], [place] [address]Performed By: #### 21055-1 #### [facility] CLIA [id number] [address] [place] [address] [place] OF AMERICAHemoglobin Ql (U)Negative NormalNegative, TraceLicking Memorial Hospital on above:Order Comment: Specimen Type: BLOOD SPECIMEN Ordering Facility: [facility] Address: [address] [place], [place] [address]Performed By: #### 34364-7 #### [facility] CLIA [id number] [address] [place] [address] [place] OF AMERICAKetones Ql (U)NegativeNormal Negative, TraceLicking Memorial Hospital on above:Order Comment: Specimen Type: BLOOD SPECIMEN Ordering Facility: [facility] Address: [address] [place], [place] [address]Performed By: #### 69424-8 #### [facility] CLIA [id number] [address] [place] [address] [place] OF AMERICALeukocyte esterase Test strip Ql (U)25 Quintin/uLNormalNegative, 25 Quintin/uLCleFairfield Medical Center on above:Order Comment: Specimen Type: BLOOD SPECIMEN Ordering Facility: [facility] Address: [address] [place], [place] [address]Performed By: #### 48441-1 #### [facility] CLIA [id number] [address] [place] [address] [place] AMERICANitrite Ql (U)NegativeNormal NegativeLicking Memorial Hospital on above:Order Comment: Specimen Type: BLOOD SPECIMEN Ordering Facility: [facility] Address: [address] [place], [place] [address]Performed By: #### 02322-5 #### [facility] CLIA [id number] [address] [place] [address] [place] AMERICApH (U)5.5 [pH]Normal5.0-8.0 [facility] on above:Order Comment: Specimen Type: BLOOD SPECIMEN Ordering Facility: [facility] Address: [address] [place], [place] [address]Performed By: #### 09492-6 #### [facility] CLIA [id number] [address] [place] [address] [place] AMERICAProtein (U) [Mass/Vol] NegativeNormalTrace, NegativeLicking Memorial Hospital on above:Order Comment: Specimen Type: BLOOD SPECIMEN Ordering Facility: [facility] Address: [address] [place], [place] [address]Performed By: #### 77447-9 #### [facility] [place] [id number] [address] [place] [address] [place] AMERICASpecific gravity (U) [Rel density]1.197Ppbw5.005-1.030[facility] on above:Order Comment: Specimen Type: BLOOD SPECIMEN Ordering Facility: [facility] Address: [address] [place], [place] [address]Performed By: #### 84739-5 #### [facility] [place] [id number] [address] [place] [address] [place] AMERICAUrobilinogen Ql (U)Negative NormalNegativeLicking Memorial Hospital on above:Order Comment: Specimen Type: BLOOD SPECIMEN Ordering Facility: [facility] Address: [address] [place], [place] [address]Performed By: #### 92481-2 #### [facility] [place] [id number] [address] [place] [address] [place] AMERICAPhysician Referralon 89-47-7946Sivzkvuwp [id number]#1.00TIFF NormalSt. Charles HospitalPhysician Referralon 15-88-3147Lvsbobokj [id number]#1.00TIFFNormalSt. Charles HospitalPhysician Referralon 21-23-4240Fucijaphd Referral [id number]#1.00TIFFNormalMercer County Community Hospitalcreenson 90-28-8704Fdwiazm [id number]#1.00TIFFNormKettering Health TroyAmbulatory Visit Summaryon 78-49-5154Rtiphhglba Visit Summary CADEN WILLS [place] :1960 Visit Date:03/22/2023 Ambulatory Visit Instructions Your Diagnosis ED (erectile dysfunction) Phimosis Hidden penis Balanoposthitis Anticoagulated Tests Performed Urnls Dip Stick Auto w/o Microscopy POC 55237 Your Care Team Attending Physician - Antonia [...] with Antonia BUSH MD, URL When: Where: [address] [place] [address]- Someone Will Contact You Regarding These Appointments [facility] External Ambulatory Referral, Urology, Dr. Alberto, 03/22/23 11:49:00 [facility] MarylandPatient Educationon 03-22-2023 Patient EducationUrology Erectile Dysfunction Erectile [...] these instructions at home: Medicines ? 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 Anticoagulated (Z79.01: residential (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 of anticoagulants) Plavix. S/p bypass [...] by Dr. Jian Alberto at the [facility] for his opinion. He can utilize lttk-unj-dotjuxs Monistat cream/triple antibiotic on a as needed [...] with voice recognition artificial intelligence software, specifically [employer], [employer] and [employer] (more content not included)...[facility] Medical CenterComment on above: Result Comment: Electronically Signed By: Antonia BUSH MD\.br\Date and Time Signed: 03/22/23 12:07 EST\.br\Electronically Co-Signed By: Maria M Campos\.br\Date and Time Co-Signed: 03/22/23 11:53 ESTA1C HEMOGLOBINon 03-08-2023 HbA1c (Bld) [Mass fraction]7.2 %[facility] Other Glucose - FINGER STICKon 87-33-2002Xssvnvo [Mass/Vol] 187 mg/dLNoPLAYSTUDIOS Other HbA1c (Bld) [Mass fraction]on 47-67-8656B2J HEMOGLOBIN [facility] Other A1C HEMOGLOBINon 42-73-3801KkR3d (Bld) [Mass fraction] 6.6 %[facility] Other Glucose - FINGER STICKon 26-76-5561Ksrtaqx [Mass/Vol] 102 mg/dLNoPLAYSTUDIOS Other HbA1c (Bld) [Mass fraction]on 47-49-9856L2D HEMOGLOBIN [facility] Other a1c HEMOGLOBINon 68-98-4799DuK9o (Bld) [Mass fraction] 6.5 %[facility] Other Glucose - FINGER STICKon 77-30-8254Zuzjmkx [Mass/Vol] 159 mg/dLNoPLAYSTUDIOS Other HbA1c (Bld) [Mass fraction]on 39-41-3662V7H HEMOGLOBIN [facility] Other a1c HEMOGLOBINon 30-83-8441AgU6o (Bld) [Mass fraction] 6.9 %[facility] Other Glucose - FINGER STICKon 60-57-8266Ambkkhq [Mass/Vol] 206 mg/dLNoPLAYSTUDIOS Other HbA1c (Bld) [Mass fraction]on 85-03-6047D5W HEMOGLOBIN [facility] Other UA RANDOMon 26-73-9534Tmqbegqtq Ql (U)NegativeNormal NEGATIVEMansfield HospitalComment on above:Performed By: #### UA #### [facility] [address] [address] [address] Jose RojasCljena (U)CLOUDYAbnormalCLEARThSelect Medical OhioHealth Rehabilitation Hospital - DublinComment on above:Performed By: #### UA #### [facility] [address] [address] [address] Jose Kong (U)LT. YELLOWNormalYELLOWMansfield HospitalComment on above:Performed By: #### UA #### [facility] [address] [address] [address] Jose RojasGlucose Ql (U)>1000AbnormalNEGATIVEMansfield HospitalComment on above:Performed By: #### UA #### [facility] [address] [address] [address] Jose RojasHemoglobin Ql (U)MODERATEAbnormalNEGATIVEMansfield Hospital Comment on above:Performed By: #### UA #### [facility] [address] [place] [address] Dr. Jose Marinelli Ql (U)NegativeNormalNEGATIVEThe [facility] Luther[facility] HospitalComment on above:Performed By: #### UA #### [facility] [address] [place] [address] Dr. Jose RojasLEUKOCYTESMODERATEAbnormalNEGATIVEThe [facility] Luther[facility] HospitalComment on above:Performed By: #### UA #### [facility] [address] [place] [address] Dr. Jose Thrashertrite Ql (U)NegativeNormalNEGATIVEThe [facility] Lutheran HospitalComment on above:Performed By: #### UA #### [facility] [address] [place] [address] Dr. Jose RojaspH (U)5.5 [pH]Normal5-9The [facility] Luther[facility] HospitalComment on above: Performed By: #### UA #### [facility] [address] [place] [address] Dr. Jose RojasSPEC GRAVITY<=1.855Rvijbikv1.005-<=1.025[facility] Comment on above:Performed By: #### UA #### [facility] [address] [place] [address] Dr. Jose Noel PROTEINNegativeNormalNEGATIVE/ TRACEThe [facility] Comment on above:Performed By: #### UA #### [facility] [address] [place] [address] Dr. Jose Rodríguezbilinogen Qn (U)0.2 {Ritu'U}/dLNormal0.2 - 1.0The [facility] Luther[facility] HospitalComment on above:Performed By: #### UA #### [facility] [address] [place] [address] Dr. Jose Wright M/2D COMPLETEon 89-80-7923GCQDIVWOQB M/2D COMPLETE Patient: CADEN WILLS Exam Date: 03/30/2022 : 1960 Gender:M Ordering : DR SIMBA KASPER M.D. Admission #: [id number] Family : DR FAHAD Medrano.O. Order #: [id number] CLICK HERE TO VIEW EXAM ECHOCARDIOGRAM REPORT [...] by: Tomás Muniz M.D. on 03/31/2022 at 14:44[facility]. Bing, MD, Cancer CenterBNPon 44-91-3510Udgwlxqybvh peptide B (Bld) [Mass/Vol]335.0 pg/mLNormal <=900.0The [facility] Luther[facility] HospitalComment on above:Performed By: #### BNP #### [facility] [address] [place] [address] Dr. Jose Toscano AUTO DIFFon 46-70-3637WDAX #0.1 103/ulNormal0.0-0.1The [facility] Lutheran HospitalComment on above:Performed By: #### DATCBC #### [facility] [address] [place] [address] Dr. Jose Rodriguezphils/100 WBC (Bld)0.7 %Normal0.2-2.0[facility] Comment on above:Performed By: #### DATCBC #### [facility] [address] [place] [address] Dr. Jose Adan #0.4 103/ulNormal0.0-0.7The [facility] HospitalComment on above: Performed By: #### DATCBC #### [facility] [address] [place] [address] Dr. Jose Padillaosinophils/100 WBC (Bld)3.9 %Normal0.9-7.0The [facility] Comment on above:Performed By: #### DATCBC #### [facility] [address] [place] [address] Dr. Jose Padillarythrocyte distribution width (RBC) [Ratio]16.5 %Critically high 11.0-15.0The [facility] HospitalComment on above:Performed By: #### DATCBC #### [facility] [address] [place] [address] Dr. Jose RojasHematocrit (Bld) [Volume fraction]44.9 %Lglaxq23.0-54.0The [facility] HospitalComment on above:Performed By: #### DATCBC #### [facility] [address] [place] [address] Dr. Jose RojasHemoglobin (Bld) [Mass/Vol]14.3 g/kVXayhyr59.0-18.0The [facility] HospitalComment on above:Performed By: #### DATCBC #### [facility] [address] [place] [address] Dr. Jose Laura #0.33 10e3/ulCritically high0.00-0.03The [facility] Comment on above:Performed By: #### DATCBC #### [facility] [address] [place] [address] Dr. Jose Laura %3.5 %Critically high0.0-0.5The [facility] HospitalComment on above:Performed By: #### DATCBC #### [facility] [address] [place] [address] Dr. Jose Lyn #1.9 103/ulNormal1.2-3.8The [facility] HospitalComment on above:Performed By: #### DATCBC #### [facility] [address] [place] [address] Dr. Jose Rodriguezmphocytes/100 WBC (Bld)19.8 %Critically low20.5-60.0The [facility] HospitalComment on above:Performed By: #### DATCBC #### [facility] [address] [place] [address] Dr. Jose EvansH (RBC) [Entitic mass]27.1 qfGvjexd22.9-34.0The [facility]inwood HospitalComment on above:Performed By: #### DATCBC #### [facility] [address] [place] [address] Dr. Jose EvansHC (RBC) [Mass/Vol]31.8 g/mHCimbut39.9-35.2The [facility] HospitalComment on above:Performed By: #### DATCBC #### [facility] [address] [place] [address] Dr. Jose EvansV (RBC) [Entitic vol]85.0 dDOlawmh33.0-94.0The [facility] HospitalComment on above:Performed By: #### DATCBC #### [facility] [address] [place] [address] Dr. Jose Hardin #0.9 103/ulCritically high0.3-0.8The [facility] Comment on above:Performed By: #### DATCBC #### [facility] [address] [place] [address] Dr. Jose Templetonocytes/100 WBC (Bld)9.1 %Normal1.7-12.0[facility] Comment on above:Performed By: #### DATCBC #### [facility] [address] [place] [address] Dr. Jose Galvan #6.0 103/ulNormal1.4-6.5The [facility] HospitalComment on above:Performed By: #### DATCBC #### [facility] [address] [place] [address] Dr. Jose Monroeutrophils/100 WBC (Bld)63.0 %Mgkqmp90.0-75.0The [facility] HospitalComment on above:Performed By: #### DATCBC #### [facility] [address] [place] [address] Dr. Jose Davidlet mean volume (Bld) [Entitic vol]9.2 fLCritically low 9.5-13.5The [facility] HospitalComment on above:Performed By: #### DATCBC #### [facility] [address] [place] [address] Dr. Jose LowT485 103/ulCritically lwns362-573Uer [facility] HospitalComment on above:Performed By: #### DATCBC #### [facility] [address] [place] [address] Dr. Jose RojasRBC5.28 106/ulNormal4.70-6.10The [facility] HospitalComment on above:Performed By: #### DATCBC #### [facility] [address] [place] [address] Dr. Jose RojasWBC9.6 103/ulNormal4.0-11.0The [facility] HospitalComment on above: Performed By: #### DATCBC #### [facility] [address] [place] [address] Dr. Jose Bowser- BMP WITH LIPIDon 23-61-2376Gqekm gap [Moles/Vol]14.3 mmol/L NormalThe [facility] HospitalComment on above:Performed By: #### DATBMP #### [facility] [address] [place] [address] Dr. Jose RojasCalcium [Mass/Vol]9.9 mg/dLNormal8.5-10.1The [facility] Comment on above:Performed By: #### DATBMP #### [facility] [address] [place] [address] Dr. Jose RojasChloride [Moles/Vol]101 mmol/CVfopcx40-966Zht [facility] Comment on above:Performed By: #### DATBMP #### [facility] [address] [address] [address] Jose RojasCholesterol [Mass/Vol]110 mg/dLNormal<=200The [facility] Comment on above:Performed By: #### DATBMP #### [facility] [address] [address] [address] Jose RojasCholesterol in HDL [Mass/Vol]28 mg/dLCritically vuu42-90Akq [facility] HospitalComment on above:Performed By: #### DATBMP #### [facility] [address] [address] [address] Jose RojasCholesterol in LDL [Mass/Vol]21.2 mg/dLNormalThe [facility] HospitalComment on above:Performed By: #### DATBMP #### [facility] [address] [place] [address] Dr. Jose RojasCO2 [Moles/Vol]28.2 mmol/LFcrgps55.0-32.0The [facility] Comment on above:Performed By: #### DATBMP #### [facility] [address] [address] [address] Jose RojasCreatinine [Mass/Vol]1.14 mg/dLNormal0.70-1.30The [facility] HospitalComment on above:Performed By: #### DATBMP #### [facility] [address] [place] [address] Dr. Garcia ChangEGFR-AF CROATIAN>60Normal>=60The [facility] HospitalComment on above:Performed By: #### DATBMP #### [facility] [address] [place] [address] Dr. Garcia ChangEGFR-NON AF CROATIAN>60Normal>=60The [facility] HospitalComment on above:Performed By: #### DATBMP #### [facility] [address] [place] [address] Dr. Jose RojasGlucose [Mass/Vol]254 mg/dLCritically npfu33-744Fnr [facility] HospitalComment on above:Performed By: #### DATBMP #### [facility] [address] [address] [address] Jose Marrufo NORMAL> or = 60 mg/dl - LOW CARDIOVASCULAR RISK <40 mg/dl - HIGH CARDIOVASCULAR RISKOhioHealth Arthur G.H. Bing, MD, Cancer CenterComment on above:Performed By: #### DATBMP #### [facility] [address] [address] [address] Jose Ricks CALC NORMALSEE BELOWOhioHealth Arthur G.H. Bing, MD, Cancer CenterComment on above:Result Comment: <100 mg/dl OPTIMAL 100 - 129 mg/dl NEAR OR ABOVE OPTIMAL 130 - 159 mg/dl BORDERLINE HIGH 160 - 189 mg/dl HIGH >190 mg/dl VERY HIGH Performed By: #### DATBMP #### [facility] [address] [address] [address] Jose RojasPotassium [Moles/Vol]4.5 mmol/LNormal3.5-5.1The [facility] Comment on above:Performed By: #### DATBMP #### [facility] [address] [address] [address] Jose RojasSodium [Moles/Vol]139 mmol/TLlcvml715-321Gkx [facility] Comment on above:Performed By: #### DATBMP #### [facility] [address] [place] [address] Dr. Jose RojasTriglyceride [Mass/Vol]304 mg/dLCritically high<=150The [facility] HospitalComment on above:Performed By: #### DATBMP #### [facility] [address] [address] [address] Jose RojasUrea nitrogen [Mass/Vol]21.0 mg/dLCritically high7.0-18.0The [facility] HospitalComment on above:Performed By: #### DATBMP #### [facility] [address] [place] [address] Dr. Jose Liang nitrogen/Creatinine [Mass ratio]18.4 mg/mgNoPeoples HospitalComment on above:Performed By: #### DATBMP #### [facility] [address] [place] [address] Dr. Yilan ChangVLDL CALC60.8 mg/dLOhioHealth Arthur G.H. Bing, MD, Cancer CenterComment on above: Performed By: #### DATBMP #### [facility] [address] [place], [place] [address] Dr. Jose RojasAlbumin [Mass/volume] in Serum or PlasmaOrdered By: Yamilex Foster on 08-62-1864Juxalym [Mass/Vol]3.5 g/dL3.2-5.5FThe [facility] Cholesterol [Mass/volume] in Serum or PlasmaOrdered By: Yamilex Foster on 87-34-2126Zdcawvvmqth [Mass/Vol]96 mg/sV474-681KglkfuycoAvita Health System Comment on above:Chol less than 200 mg/dl low riskChol 201-239 mg/dl borderline riskChol 240 mg/dl and greater high riskCholesterol in LDL Calc [Mass/Vol] Ordered By: Yamilex Foster on 02-31-6836Moitwnqnzqe in LDL [Mass/Vol]34 mg/dL0-100 [facility] SystemComment on above:LDL ATP III CLASSIFICATIONLDL less than 100 mg/dL OptimalLDL 100-129 mg/dL Near or above xxnvqfrEPD172-371 mg/dL Borderline highLDL 160-189 mg/dL HighLDL greater than 189 mg/dL Very high Cholesterol in VLDL Calc [Mass/Vol]Ordered By: Yamilex Foster on 02-11-2022 Cholesterol in VLDL [Mass/Vol]28 mg/dLAvita Health System Creatinine [Mass/volume] in UrineOrdered By: Yamilex Foster on 02-11-2022 Creatinine (U) [Mass/Vol]49.7 mg/dLAvita Health SystemComment on above:No reference range establishedCreatinine and Glomerular filtration rate.predicted panel (S/P/Bld)Ordered By: Yamilex Foster on 88-04-6902Ifauhgixwe [Mass/Vol]0.85 mg/dL0.64-1.27[facility] Health SystemEstimated glomerular filtration rate (GFR) non- AmericanOrdered By: Yamilex Foster on 15-29-7541DAN/1.73 sq M.predicted among non-blacks MDRD (S/P/Bld) [Vol rate/Area]> 60 mL/MinAvita Health SystemGlobulin Calc (S) [Mass/Vol]Ordered By: Yamilex Foster on 06-23-4189Vvvlyndj (S) [Mass/Vol]3.2 g/dL [facility] SystemLaboratory - Chemistry and Chemistry - challengeOrdered By: Yamilex Foster on 62-30-2686Dalfinafn (Vitamin B12) [Mass/Vol]227 pg/xV497-291FwlucsufqAvita Health SystemNo Panel Information Ordered By: Yamilex Foster on 71-64-7636Rukkmynwe GFR ()> 60 mL/MinAvita Health SystemComment on above:GFR estimated reference range: According to KDOQI guidelines, <60 ml/min/1.73m2 is sufficient todiagnose a patient with chronic kidney disease.Pharmacy Creatinine Clearance (ChemN/A [facility] SystemProtein [Mass/volume] in Serum or PlasmaOrdered By: Yamilex Foster on 88-22-4546Xrpsbxp [Mass/Vol]6.7 g/dL6.1-7.9[facility]opedic Centererum or plasma alanine aminotransferase measurement without P-5'-P (enzymatic activiOrdered By: Yamilex Foster on 05-17-0904ZWD No additional P-5'-P [Catalytic activity/Vol]23 U/Z67-19KoawnhcuvCrystal Clinic Orthopedic Centererum or plasma albumin/globulin mass ratioOrdered By: Yamilex Foster on 70-17-6120Gxcipyb/Globulin [Mass ratio]1.1 {ratio}[facility]opedic Centererum or plasma alkaline phosphatase measurement (enzymatic activity/volume)Ordered By: Yamilex Foster on 23-05-8726WVK [Catalytic activity/Vol]82 U/Z37-45AcavktlujCrystal Clinic Orthopedic Centererum or plasma anion gap determinationOrdered By: Ymailex Foster on 43-51-2109Vgmkh gap [Moles/Vol]15.4 mmol/L6.0-15.0[facility] Centererum or plasma aspartate aminotransferase measurement (enzymatic activity/volume)Ordered By: Yamilex Foster on 98-52-4097QVM [Catalytic activity/Vol]22 U/A29-81VnionpkarCrystal Clinic Orthopedic Centererum or plasma calcium measurement (mass/volume)Ordered By: Yamilex Foster on 24-92-8124Wyrikks [Mass/Vol]9.7 mg/dL8.2-10.2FKing's Daughters Medical Center Ohioerum or plasma chloride measurement (moles/volume)Ordered By: Yamilex Foster on 23-27-4938Moqaeajj [Moles/Vol]101 mmol/E65-003NpkqllykbCrystal Clinic Orthopedic Centererum or plasma glucose measurement (mass/volume)Ordered By: Yamilex Foster on 01-86-0328Efssfyg [Mass/Vol]85 mg/sG85-746VwmdmqlfaAvita Health SystemComment on above:ADA recommended reference rangeRandom Glucose Reference Range is dependent on time and content of last meal. Glucose of more than 200 mg/dL in a nonstressed, ambulatory subject supports the diagnosisof Diabetes Mellitus.Serum or plasma high density lipoprotein (HDL) cholesterol measurementOrdered By: Yamilex Foster on 34-63-4907Ssfzudkzzlo in HDL [Mass/Vol]34 mg/rC16-95KfelceszsAvita Health SystemComment on above:HDL CHOL ATP-III CLASSIFICATION Cardiovascular RiskHDL > or equal to 60 mg/dL LOWHDL < 40 mg/dL HIGHSerum or plasma potassium measurement (moles/volume)Ordered By: Yamilex Foster on 30-78-9255Edrgoufzz [Moles/Vol]4.2 mmol/L3.5-5.1FKing's Daughters Medical Center Ohioerum or plasma sodium measurement (moles/volume)Ordered By: Yamilex Foster on 16-36-5175Idqfhz [Moles/Vol]138 mmol/L760-104DmoxnwfxeCrystal Clinic Orthopedic Centererum or plasma total bilirubin measurement (mass/volume)Ordered By: Yamilex Foster on 90-83-6443Zmthqxiue [Mass/Vol]0.7 mg/dL0.3-1.2FKing's Daughters Medical Center Ohioerum or plasma total carbon dioxide measurement (moles/volume) Ordered By: Yamilex Foster on 15-60-0526QR0 [Moles/Vol]25.8 mmol/L22.0-30.0 [facility] Centererum or plasma total cholesterol/high density lipoprotein (HDL) cholesterol mass ratOrdered By: Yamilex Foster on 02-11-2022 Cholesterol.total/Cholesterol in HDL [Mass ratio]2.8 {ratio}<5.0[facility] Centererum or plasma urea nitrogen measurement (mass/volume) Ordered By: Yamilex Foster on 41-67-0164Gjnv nitrogen [Mass/Vol]16 mg/dL9-23 [facility] SystemTriglyceride [Mass/volume] in Serum or Plasma Ordered By: Yamilex Foster on 88-75-6716Nejcvpgltquh [Mass/Vol]140 mg/oQ01-609 [facility] SystemComment on above:TRIG ATP III CLASSIFICATIONTRIG less than 150 mg/dL NormalTRIG 150-199 mg/dL Borderline highTRIG 200-500 mg/dL High TRIG greater than 500 mg/dL Very highStandard traceable to the Center for Disease Conrtrol and Prevention (CDC) test method. Urine microalbumin measurement with detection limit of 20 mg/L or less (mass/volume)Ordered By: Yamilex Foster on 69-42-8129Lnylqqc DL <= 20 mg/L (U) [Mass/Vol]3.4 mg/dL0.0-1.8[facility] Health SystemUrine microalbumin/creatinine mass ratioOrdered By: [facility] Centerdelano [facility] on 02-11-2022 Albumin/Creatinine DL <= 20 mg/L (U) [Mass ratio]68.0 mg/g0.0-30.0[facility] SystemComment on above:30-300 mg/g indicates an increased risk for diabetic nephropathy. Greater than 300 mg/g is consistent with clinical nephropathy. (Am. J. Kidney Disease 1994, 25:107)BNPon 31-65-4229Gdbjrseghgi peptide B (Bld) [Mass/Vol]229.0 pg/mLNormal<=900.0The [facility] HospitalComment on above:Performed By: #### BNP #### [facility] [address] [place] [address] [address] [address] Jose Toscano AUTO DIFFon 48-70-1391EDVL #0.1 103/ulNormal0.0-0.1The [facility] HospitalComment on above:Performed By: #### DATCBC #### [facility] [address] [address] [address] Jose RojasBasophils/100 WBC (Bld)0.5 %Normal0.2-2.0[facility] Comment on above:Performed By: #### DATCBC #### [facility] [address] [place] [address] Dr. Jose Adan #0.1 103/ulNormal0.0-0.7The [facility] HospitalComment on above: Performed By: #### DATCBC #### [facility] [address] [place] [address] Dr. Jose Padillaosinophils/100 WBC (Bld)1.0 %Normal0.9-7.0[facility] Comment on above:Performed By: #### DATCBC #### [facility] [address] [place] [address] Dr. Jose Padillarythrocyte distribution width (RBC) [Ratio]15.1 %Critically high 11.0-15.0The [facility] HospitalComment on above:Performed By: #### DATCBC #### [facility] [address] [place] [address] Dr. Jose RojasHematocrit (Bld) [Volume fraction]49.2 %Rltbzb83.0-54.0The [facility] HospitalComment on above:Performed By: #### DATCBC #### [facility] [address] [place] [address] Dr. Jose RojasHemoglobin (Bld) [Mass/Vol]16.1 g/zRWupszh93.0-18.0The [facility] HospitalComment on above:Performed By: #### DATCBC #### [facility] [address] [place] [address] Dr. Jose Laura #0.07 10e3/ulCritically high0.00-0.03The [facility] Comment on above:Performed By: #### DATCBC #### [facility] [address] [place] [address] Dr. Jose Laura %0.7 %Critically high0.0-0.5The [facility] HospitalComment on above:Performed By: #### DATCBC #### [facility] [address] [place] [address] Dr. Jose Lyn #2.1 103/ulNormal1.2-3.8The [facility] HospitalComment on above:Performed By: #### DATCBC #### [facility] [address] [place] [address] Dr. Jose Hdezhocytes/100 WBC (Bld)22.2 %Pruuvx04.5-60.0The [facility] HospitalComment on above:Performed By: #### DATCBC #### [facility] [address] [place] [address] Dr. Jose Mills DIFF REQNONormalThe [facility] HospitalComment on above: Performed By: #### DATCBC #### [facility] [address] [place] [address] Dr. Jose Mondragon (RBC) [Entitic mass]28.0 kxBetvxi37.9-34.0The [facility] HospitalComment on above:Performed By: #### DATCBC #### [facility] [address] [place] [address] Dr. Jose Evans (RBC) [Mass/Vol]32.7 g/fGRjjles37.9-35.2The [facility] HospitalComment on above:Performed By: #### DATCBC #### [facility] [address] [place] [address] Dr. Jose Graves (RBC) [Entitic vol]85.6 cDGawhkm99.0-94.0The [facility] HospitalComment on above:Performed By: #### DATCBC #### [facility] [address] [place] [address] Dr. Jose Hardin #1.0 103/ulCritically high0.3-0.8The [facility] Comment on above:Performed By: #### DATCBC #### [facility] [address] [place] [address] Dr. Jose Templetonocytes/100 WBC (Bld)10.2 %Normal1.7-12.0[facility] Comment on above:Performed By: #### DATCBC #### [facility] [address] [place] [address] Dr. Jose MonroeUT #6.3 103/ulNormal1.4-6.5The [facility] HospitalComment on above:Performed By: #### DATCBC #### [facility] [address] [place] [address] Dr. Jose Monroeutrophils/100 WBC (Bld)65.4 %Laydns90.0-75.0The [facility] HospitalComment on above:Performed By: #### DATCBC #### [facility] [address] [place] [address] Dr. Jose RojasPlatelet mean volume (Bld) [Entitic vol]9.4 fLCritically low 9.5-13.5The [facility] HospitalComment on above:Performed By: #### DATCBC #### [facility] [address] [place] [address] Dr. Jose RojasPLT353 103/adTwxzlz725-732Svp [facility] HospitalComment on above: Performed By: #### DATCBC #### [facility] [address] [place] [address] Dr. Jose RojasRBC5.75 106/ulNormal4.70-6.10The [facility] HospitalComment on above:Performed By: #### DATCBC #### [facility] [address] [place] [address] Dr. Jose RojasWBC9.6 103/ulNormal4.0-11.0The [facility] HospitalComment on above: Performed By: #### DATCBC #### [facility] [address] [place] [address] Dr. Jose Chovid-19 PCR (CVDTB)on 33-86-9684JTHZ-CoV-2 (COVID-19) RNA PRASHANT+probe Ql (Unsp spec)Not detectedNormalNOT DETECTEDThe [facility] Comment on above:Result Comment: When diagnostic [...] for this test is supported by the Claim Investigator of Health and Human Service's declaration that [...] longer be used).Performed By: #### CVDTB #### [facility] [address] [place] [address] Dr. oJse RojasPROF CHEM 8 (BAS METB)on 69-61-5431Fvidi gap [Moles/Vol]14.0 mmol/LNormalMansfield HospitalComment on above:Performed By: #### BRYN BMP #### [facility] [address] [place] [address] Dr. Jose RojasCalcium [Mass/Vol]9.5 mg/dLNormal8.5-10.1[facility] Comment on above:Performed By: #### BRYN, BMP #### [facility] [address] [place] [address] Dr. Jose RojasChloride [Moles/Vol]100 mmol/VPglofm28-240NlnMansfield Hospital Comment on above:Performed By: #### BRYN BMP #### [facility] [address] [place] [address] Dr. Jose RojasCO2 [Moles/Vol]26.9 mmol/TOsbwer54.0-32.0[facility] Comment on above:Performed By: #### ANDRESTRJAVED, BMP #### [facility] [address] [place], [place] [address] Dr. Jose RojasCreatinine [Mass/Vol]1.06 mg/dLNormal0.70-1.30The [facility] HospitalComment on above:Performed By: #### HSTROPN, BMP #### [facility] [address] [address] [address] Jose PadillaGFR-AF CROATIAN>60Normal>=60The [facility] HospitalComment on above:Performed By: #### HSTROPN, BMP #### [facility] [address] [address] [address] Jose PadillaGFR-NON AF CROATIAN>60Normal>=60The [facility] HospitalComment on above:Performed By: #### HSTROPN, BMP #### [facility] [address] [place] [address] Dr. Jose RojasGlucose [Mass/Vol]152 mg/dLCritically pega53-754Tpq [facility] HospitalComment on above:Performed By: #### HSTROPN, BMP #### [facility] [address] [address] [address] Jose RojasPotassium [Moles/Vol]3.9 mmol/LNormal3.5-5.1[facility] Comment on above:Performed By: #### HSTROPN, BMP #### [facility] [address] [place] [address] Dr. Jose RojasSodium [Moles/Vol]137 mmol/SOgwdim886-571Bow [facility] Comment on above:Performed By: #### HSTROPN, BMP #### [facility] [address] [address] [address] Jose RojasUrea nitrogen [Mass/Vol]19.0 mg/dLCritically high7.0-18.0The [facility] HospitalComment on above:Performed By: #### HSTROPN, BMP #### [facility] [address] [address] [address] Jose RojasUrea nitrogen/Creatinine [Mass ratio]17.9 mg/mgNormalThe [facility] HospitalComment on above:Performed By: #### HSTROPN, BMP #### [facility] [address] [place], [place] [address] Dr. Jose Rosas, [facility] SENSITIVITYon 97-34-4374AUKUJT2777.5 pg/mL Critically high4.0-76.1[facility]field HospitalComment on above:Result Comment: CUT-OFF POINTS HAVE BEEN ESTABLISHED BASED ON THE FOURTH UNIVERSAL DEFINITIONS OF MYOCARDIAL INFARCTION. THE UPPER REFERENCE LIMIT (URL) OF TROPONIN, DEFINED THE 99TH PERCENTILE OF cTnI DISTRIBUTION IN A REFERENCE POPULATION, HAS BEEN CONFIRMED THE DECISION THRESHOLD FOR [place] DIAGNOSIS.Performed By: #### HSTROPN #### [facility] [address] [address] [address] Jose RojasHSTROP142.5 pg/mLCritically high4.0-76.1[facility] Comment on above:Result Comment: CUT-OFF POINTS HAVE BEEN ESTABLISHED BASED ON THE FOURTH UNIVERSAL DEFINITIONS OF MYOCARDIAL INFARCTION. THE UPPER REFERENCE LIMIT (URL) OF TROPONIN, DEFINED THE 99TH PERCENTILE OF cTnI DISTRIBUTION IN A REFERENCE POPULATION, HAS BEEN CONFIRMED THE DECISION THRESHOLD FOR [place] DIAGNOSIS.Performed By: #### HSTROPN, BMP #### [facility] [address] [place] [address] Dr. Jose RojasXR CHEST 1 Von [id number] CHEST 1 VEXAMINATION: XR CHEST 1 V [...] Electronically authenticated by: STORM CONDE Date: 2021-12-31 13:[address] [place], [place] [address]XR LSPINE 2_3 VIEWSon [id number] LSPINE 2_3 VIEWSEXAMINATION: XR LSPINE 2_3 VIEWS [...] Electronically authenticated by: HEAVENLY LOUIS Date: 2021-10-31 08:[address] [place], [place] [address]A1C HEMOGLOBINon 89-50-7993ToY1g (Bld) [Mass fraction]7.5 % [facility] Other Glucose - FINGER STICKon 86-22-9838Qlenhrl [Mass/Vol] 107 mg/dLNantucket [employer] Other HbA1c (Bld) [Mass fraction]on 22-90-3851I5A HEMOGLOBIN [facility] Other Urinalysis - AUTOMATEDon 57-26-7026Nvbkfiqzww (U) cloudyNsaint luke's health system [facility] Other Bilirubin Ql (U)NegativeScreen [employer] Other Color (U)yellowScreen [employer] Other Glucose Ql (U)500[place] [employer] Other Hemoglobin Ql (U)moderateScreen [employer] Other Ketones Ql (U)NegativeScreen [employer] Other Leukocyte esterase Test strip Ql (U)moderatePLAYSTUDIOS Other Nitrite Ql (U)PositiveScreen [employer] Other pH (U)6.0 [pH][facility] Other Protein Ql (U)tracePLAYSTUDIOS Other Specific gravity (U) [Rel density]1.025[facility] Other Urobilinogen (U) [Mass/Vol]0.2 mg/dLNantucket [facility] Other Urinalysis - AUTOMATEDNocameron regional medical center [facility] Other Urine Cultureon 36-19-3050Hbzfaqlo identified Cx Nom (U)[facility] Other A1C HEMOGLOBINon 38-61-2844QyU5c (Bld) [Mass fraction] 7.4 %[facility] Other Glucose - FINGER STICKon 57-27-2446Atngxfb [Mass/Vol] 168 mg/dLNantucket [facility] Other HbA1c (Bld) [Mass fraction]on 38-06-6405S5Y HEMOGLOBIN [facility] Other a1c HEMOGLOBINon 87-43-1306FsC9e (Bld) [Mass fraction] 6.6 %[facility] Other Glucose - FINGER STICKon 13-92-1934Tiestdi [Mass/Vol] 171 mg/dLNoScreen [facility] Other HbA1c (Bld) [Mass fraction]on 75-46-5030F8U HEMOGLOBIN [facility] Other Vital Signs Date TimeVital SignValuePerforming OfifbckfzRyywpbvj91-78-5752 08:57-0400Body cbsqiw088.8 cmBenjamin Ball DO Work Phone: [facility]10-27-2025 08:57-0400 Body mass index (BMI) [Ratio]39.3 kg/c2Ffvfnjgb Ball DO Work Phone: [facility]10-27-2025 08:57-0400 Body iiorcj268.28 kgBenjamin Ball DO Work Phone: [facility]10-21-2025 09:16-0400 Body trfemu575.8 cmBenjamin Ball DO Work Phone: [phone] [place], [place] 6187610-21-2025 09:16-0400 Body mass index (BMI) [Ratio]37.6 kg/z2Ktwqqyds Ball DO Work Phone: 1(419)[address] [place], [place] 6187610-21-2025 09:16-0400 Body ezgrdl006.03 kgBenjamin Ball DO Work Phone: 1(419)[address] [place], [place] 6187610-21-2025 09:16-0400 Diastolic blood yqatvohr18 mm[Hg]Fahad Ball DO Work Phone: 1(419)[address] [place], [place] 6187610-21-2025 09:16-0400 Heart rate68 /minBenjamin Ball DO Work Phone: 1(419)[address] [place], [place] 6187610-21-2025 09:16-0400 Respiratory rate12 /minBenjamin Ball DO Work Phone: 1(419)[address] [place], [place] 6187610-21-2025 09:16-0400 Systolic blood mm[Hg]Faahd Ball DO Work Phone: 1(419)[address] [place], [place] 6187608-13-2025 16:05-0400 Body ibbuvg822.8 cmBenjamin Ball DO Work Phone: 1(419)[address] [place], [place] 6187608-13-2025 16:05-0400 Body mass index (BMI) [Ratio]37.7 kg/s4Nhsnalhn Ball DO Work Phone: 1(419)[address] [place], [place] 6187608-13-2025 16:05-0400 Body lizhmr942.2 kgBenjamin Ball DO Work Phone: 1(419)[address] [place], [place] 6187608-13-2025 16:05-0400 Diastolic blood thkhyqka53 mm[Hg]Fahad Ball DO Work Phone: 1(419)[address] [place], [place] 6187608-13-2025 16:05-0400 Heart rate70 /minBenjamin Ball DO Work Phone: 1(419)[address] [place], [place] 6187608-13-2025 16:05-0400 Respiratory rate18 /minBenjamin Ball DO Work Phone: [phone]08-13-2025 16:05-0400 SaO2% (BldA) [Mass fraction]96 %Fahad Ball DO Work Phone: [phone])579-[address] [place], [place] 7940708-13-2025 16:05-0400 Systolic blood wpmutfvj064 mm[Hg]Fahad Ball DO Work Phone: 1(477)954-[address] [place], [place] 7940707-09-2025 15:49-0400 Body .8 cmBenjamin Ball DO Work Phone: 1(305)[facility] [place], [place] 7940707-09-2025 15:49-0400 Body mass index (BMI) [Ratio]38.3 kg/d5Lftvimiy Ball DO Work Phone: 1(401)[address] [place], [place] 6187607-09-2025 15:49-0400 Body gmkerz070.27 kgBenjamin Ball DO Work Phone: 1(178)[facility] [place], [place] 7940707-09-2025 15:49-0400 Diastolic blood mbjvsifu49 mm[Hg]Fahad Ball DO Work Phone: 1(976)597-[address] [place], [place] 7940707-09-2025 15:49-0400 Heart rate73 /minBenjamin Ball DO Work Phone: 1(152)[facility] [place], [place] 7940707-09-2025 15:49-0400 Respiratory rate12 /minBenjamin Ball DO Work Phone: 1(389)[facility] [place], [place] 7940707-09-2025 15:49-0400 Systolic blood mm[Hg]Fahad Ball DO Work Phone: 1(131)[facility] [place], [place] 7940705-07-2025 16:14-0400 Body lmnoys802.8 cmAv[facility]05-07-2025 16:14-0400Body mass index (BMI) [Ratio]38.2 kg/u7QxlpingmiAvita Health System05-07-2025 16:14-0400Body sozblx214.7 kgAv[facility] Health System05-07-2025 16:14-0400Diastolic blood ohxzmmna17 mm[Hg][facility] 08-21-2024 16:14-0400Heart rate73 /[facility] 08-21-2024 16:14-0400Respiratory rate18 /[facility] 08-21-2024 16:14-5161KyJ7% (BldA) [Mass fraction]94 %[facility]05-07-2025 16:14-0400Systolic blood axzdiqhe282 mm[Hg][facility]01-29-2025 16:05-0500Body .8 cmAv[facility] System01-29-2025 16:05-0500Body mass index (BMI) [Ratio]38.7 kg/d4XiuxxnxzuAvita Health System01-29-2025 16:05-0500Body ugoega506.24 kgAv[facility] Health System01-29-2025 16:05-0500Diastolic blood uwximphv41 mm[Hg] [facility]01-29-2025 16:05-0500Heart rate70 /[facility]01-29-2025 16:05-0500Respiratory rate18 /[facility]01-29-2025 16:05-6470JkE8% (BldA) [Mass fraction]95 % [facility]01-29-2025 16:05-0500Systolic blood xvyzcfym710 mm[Hg][facility]01-07-2025 15:52-0500Body vucbhh339.8 cm [facility]01-07-2025 15:52-0500Body mass index (BMI) [Ratio]39.8 kg/j9LxfcsyvfhAvita Health System01-07-2025 15:52-0500Body vaxmrj775.81 kgAv[facility] Health System01-07-2025 15:52-0500Diastolic blood mm[Hg][facility]01-07-2025 15:52-0500 Heart rate76 /[facility]01-07-2025 15:52-0500 Respiratory rate12 /[facility]01-07-2025 15:52-0500 Systolic blood mm[Hg][facility]10-23-2024 16:30-0400Body ybmfof930.8 cmAv[facility] System10-23-2024 16:30-0400Body mass index (BMI) [Ratio]38.5 kg/o2SxdltmoniAvita Health System10-23-2024 16:30-0400Body rwzxiq279.78 kg[facility] 02-07-2024 16:30-0400Diastolic blood lprzxlro08 mm[Hg][facility]10-23-2024 16:30-0400Heart rate74 /[facility] 02-07-2024 16:30-0400Respiratory rate18 /[facility] 02-07-2024 16:30-9264WvB7% (BldA) [Mass fraction]97 %[facility]10-23-2024 16:30-0400Systolic blood msjqtixh423 mm[Hg][facility]07-17-2024 16:16-0400Body piztvr989.8 cmAv[facility] Health System07-17-2024 16:16-0400Body mass index (BMI) [Ratio]39.2 kg/m7ChmernqtuAvita Health System07-17-2024 16:16-0400Body qbnhcy876.83 [facility]07-17-2024 16:16-0400Diastolic blood qtjupxke18 mm[Hg] [facility]07-17-2024 16:16-0400Respiratory rate16 /min [facility]07-17-2024 16:16-9691WeN9% (BldA) [Mass fraction]93 %[facility]07-17-2024 16:16-0400Systolic blood moxsxqso517 mm[Hg][facility]07-03-2024 15:43-0400 Body obusjk546.8 cmAv[facility] Health System07-03-2024 15:43-0400Body mass index (BMI) [Ratio]39.2 kg/f3HdpxoyztvAvita Health System07-03-2024 15:43-0400Body vivffg674.94 kgAv[facility] Health System07-03-2024 15:43-0400Diastolic blood caydpcye31 mm[Hg][facility] 10-18-2023 15:43-0400Heart rate77 /[facility] 10-18-2023 15:43-0400Respiratory rate12 /[facility] 10-18-2023 15:43-0400Systolic blood woljcsqs970 mm[Hg][facility]05-29-2024 13:15-0400Body mass index (BMI) [Ratio]39.86 kg/e4PbjtkjwJian Alberto MD Work Phone: [facility] HospitalXunvkz98-93-8827 13:15-0400Body ozhlcy939 kg Jian Alberto MD Work Phone: [facility] HospitalBhglqq86-83-4730 13:15-0400Diastolic blood acgfbewz78 mm[Hg]Jian Alberto MD Work Phone: [facility] HospitalXtjpsh59-28-8514 13:15-0400Heart rate72 /min Jian Alberto MD Work Phone: [facility] HospitalHzdomz83-68-0795 13:15-0400Systolic blood wldjkwvi115 mm[Hg]Jian Alberto MD Work Phone: [facility] HospitalVwdwxk35-66-9428 13:51-0400Body dyxdxe119.8 cmGiovanni Mulligan MD Work Phone: [facility]04-19-2024 13:51-0400Body ykhdup175.29 kgGiovanni Mulligan MD Work Phone: [facility]04-11-2024 12:44-0400Respiratory rate 18 /minPacc 6 Work Phone: [facility]03-26-2024 15:26-0400Body nhfaqm752.8 cmAv[facility]03-26-2024 15:26-0400Body mass index (BMI) [Ratio]39.4 kg/i5TmjxqhkclAvita Health System03-26-2024 15:26-0400Body kyubna098.73 kgAv[facility] Health System03-26-2024 15:26-0400Diastolic blood limprbtt54 mm[Hg][facility]03-26-2024 15:26-0400 Heart rate73 /[facility]03-26-2024 15:26-0400Systolic blood wzcetgif351 mm[Hg][facility]03-06-2024 16:14-0500 Body .8 cmAv[facility]03-06-2024 16:14-0500Body mass index (BMI) [Ratio]39.4 kg/r8ZqzstiswiAvita Health System03-06-2024 16:14-0500Body vjeziz154.73 kgAv[facility] Health System03-06-2024 16:14-0500Diastolic blood rlsxgoys64 mm[Hg][facility] 06-21-2023 16:14-0500Heart rate70 /[facility] 06-21-2023 16:14-0500Respiratory rate18 /[facility] 06-21-2023 16:14-4281TfF2% (BldA) [Mass fraction]95 %[facility]03-06-2024 16:14-0500Systolic blood eseicpcr616 mm[Hg][facility]03-04-2024 13:05-0500Body fkakur864.29 kgLigia Colmenares MD Work Phone: [facility]03-04-2024 13:05-0500Diastolic blood lyxvcgto84 mm[Hg]Ligia Colmenares MD Work Phone: [facility]03-04-2024 13:05-0500Heart rate68 /min Ligia Colmenares MD Work Phone: [facility]03-04-2024 13:05-0500Systolic blood nbgywxkr095 mm[Hg]Ligia Colmenares MD Work Phone: [facility]01-03-2024 15:30-0500Body keooji553.8 cmBenjamin Ball Other [facility]01-03-2024 15:30-0500 Body mass index (BMI) [Ratio]39.91 kg/u6Oyyopgpo Ball Other [facility] [employer] Other 01-03-2024 15:30-0500Body lwmwon873.19 kgBenjorge Aceves Other [facility] [employer] Other 01-03-2024 15:30-0500Body .18 kgDO Fahad Aceves Work Phone: [facility]01-03-2024 15:30-0500 Diastolic blood olmfqhkq66 mm[Hg]Fahad Aceves Other [facility]01-03-2024 15:30-0500 Respiratory rate16 /minBenjorge Aceves Other [facility] [employer] Other 01-03-2024 15:30-0500Systolic blood axugevlj177 mm[Hg] Fahad Aceves Other [facility]12-06-2023 11:46-0500 Blood Pressure LocationAntonia Declara [facility] [place] 633032-06-2023 11:46-0500Diastolic blood kwayviur77 mm[Hg]Antonia Declara [facility] [place] 633032-06-2023 11:46-0500Heart rate69 /minAntonia Declara [facility] [place] 633032-06-2023 11:46-0500Systolic blood nfbnulzh674 mm[Hg]Antonia Declara [facility] [place] 633031-22-2023 16:15-0500Body owtock213.8 cmTondra Mapus Other [facility]11-22-2023 16:15-0500 Body mass index (BMI) [Ratio]39.65 kg/o0Tzpzqq [employer] Other [employer] Other 11-22-2023 16:15-0500Body rvemqg277.38 kgTondra Mapus Other [facility] [employer] Other 11-22-2023 16:15-0500Body omuzbm357.37 kgDO Fahad Ball Work Phone: [facility]11-22-2023 16:15-0500 Diastolic blood roagqofg39 mm[Hg]Tondra Mapus Other [facility]11-22-2023 16:15-0500 Respiratory rate18 /minTondra Mapus Other [facility] [employer] Other 11-22-2023 16:15-4200QdB4% (BldA) [Mass fraction]96 % Tondra Mapus Other [facility] [employer] Other 11-22-2023 16:15-0500Systolic blood lnjwuzfl337 mm[Hg] Tondra Mapus Other [facility]10-06-2023 14:45-0400 Body ijntoj214.8 cmBenjamin Ball Other [facility] [employer] Other 10-06-2023 14:45-0400Body mass index (BMI) [Ratio] 39.17 kg/x6Nhsxoyck Ball Other [employer] Other 10-06-2023 14:45-0400Body tvxiix320.83 kgBenjamin Ball Other [facility] Other 10-06-2023 14:45-0400Diastolic blood auyvzaai12 mm[Hg] Fahad Ball Other [employer] Other 10-06-2023 14:45-0400Respiratory rate18 /minBenjamin Ball Other [employer] Other 10-06-2023 14:45-0400Systolic blood ucwadila385 mm[Hg] Fahad Aceves Other [employer] Other 08-10-2023 15:30-0400Body xhorzf438.8 cmTondra Mapus Other [facility] Other 08-10-2023 15:30-0400Body mass index (BMI) [Ratio] 39.22 kg/s9Dmijbn Mapus Other [facility] Other 08-10-2023 15:30-0400Body uzkihb577.01 kgTondra Mapus Other [facility] Other 08-10-2023 15:30-0400Diastolic blood kdxlcuhi97 mm[Hg] Tondra Mapus Other [facility] Other 08-10-2023 15:30-0400Respiratory rate18 /minTondra Mapus Other [employer] Other 08-10-2023 15:30-5217LbX9% (BldA) [Mass fraction]95 % Tondra Mapus Other [facility] Other 08-10-2023 15:30-0400Systolic blood wlgllspi112 mm[Hg] Tondra Mapus Other [facility] Other 07-03-2023 15:30-0400Body dgfutp809.8 cmBenjamin Ball Other [facility] Other 07-03-2023 15:30-0400Body mass index (BMI) [Ratio]39.6 kg/k3Rmlwusbq Ball Other [facility] Other 07-03-2023 15:30-0400Body iflepb388.19 kgBenjamin Ball Other [facility] Other 07-03-2023 15:30-0400Diastolic blood vdovbeyk40 mm[Hg] Fahad Ball Other [facility] Other 07-03-2023 15:30-0400Respiratory rate16 /minBenjamin Ball Other [facility] Other 07-03-2023 15:30-0400Systolic blood erfkmlzb262 mm[Hg] Fahad Ball Other [facility] Other 05-08-2023 16:30-0400Body uztlff307.8 cmTondra Mapus Other [facility] Other 05-08-2023 16:30-0400Body mass index (BMI) [Ratio] 39.93 kg/s7Rwmevd Mapus Other [facility] Other 05-08-2023 16:30-0400Body ejaggz068.24 kgTondra Mapus Other [facility] Other 05-08-2023 16:30-0400Diastolic blood yasvixou99 mm[Hg] Tondra Mapus Other [employer] Other 05-08-2023 16:30-0400Respiratory rate18 /minTondra Mapus Other [facility] Other 05-08-2023 16:30-1013UoQ2% (BldA) [Mass fraction]94 % Tondra Mapus Other [facility] Other 05-08-2023 16:30-0400Systolic blood ygdthyli122 mm[Hg] Tondra Mapus Other [facility] Other 04-03-2023 16:30-0400Body xwbikm902.8 cmBenjamin Ball Other [facility] Other 04-03-2023 16:30-0400Body mass index (BMI) [Ratio]40.2 kg/l1Aniyhbxf Ball Other [employer] Other 04-03-2023 16:30-0400Body zbrurk154.1 kgBenjamin Ball Other [employer] Other 04-03-2023 16:30-0400Diastolic blood knlbhowk08 mm[Hg] Fahad Ball Other [employer] Other 04-03-2023 16:30-0400Respiratory rate16 /minBenjamin Ball Other [facility] Other 04-03-2023 16:30-0400Systolic blood epafkzql091 mm[Hg] Fahad Ball Other [facility] Other 02-02-2023 16:15-0500Body eocyqn725.8 cmTondra Mapus Other [employer] Other 02-02-2023 16:15-0500Body mass index (BMI) [Ratio] 40.79 kg/y7Dxaslc [employer] Other [employer] Other 02-02-2023 16:15-0500Body yfjsab631.96 kgTondra Mapus Other [facility] Other 02-02-2023 16:15-0500Diastolic blood tvlciyss73 mm[Hg] Tondra Mapus Other [facility] Other 02-02-2023 16:15-0500Respiratory rate18 /minTondra Mapus Other [facility] Other 02-02-2023 16:15-2807QsT9% (BldA) [Mass fraction]93 % Tondra Mapus Other [facility] Other 02-02-2023 16:15-0500Systolic blood mm[Hg] Tondra Mapus Other [facility] Other 01-18-2023 16:30-0500Body pxqfli539.8 cmBenjamin Ball Other [employer] Other 01-18-2023 16:30-0500Body mass index (BMI) [Ratio] 41.23 kg/g7Pvfkkend Ball Other [employer] Other 01-18-2023 16:30-0500Body .36 kgBenjamin Ball Other [employer] Other 01-18-2023 16:30-0500Diastolic blood puxyfbkv31 mm[Hg] Fahad Ball Other [employer] Other 01-18-2023 16:30-0500Respiratory rate20 /minBenjamin Ball Other [employer] Other 01-18-2023 16:30-0500Systolic blood mm[Hg] Fahad Ball Other [facility] Other 07-07-2022 14:45-0400Body iufibd626.8 cmTondra Mapus Other [facility] Other 07-07-2022 14:45-0400Body mass index (BMI) [Ratio] 40.31 kg/l9Vtcgkm Mapus Other [facility] Other 07-07-2022 14:45-0400Body frypiz562.46 kgTondra Mapus Other [facility] Other 07-07-2022 14:45-0400Diastolic blood jshrehlu19 mm[Hg] Tondra Mapus Other [facility] Other 07-07-2022 14:45-0400Respiratory rate20 /minTondra Mapus Other [facility] Other 07-07-2022 14:45-2612XbN8% (BldA) [Mass fraction]96 % Tondra Mapus Other [facility] Other 07-07-2022 14:45-0400Systolic blood mm[Hg] Yamilex Foster Other [facility] Other 04-27-2022 15:15-0400Body rgqeeb516.8 cmPdang Greene Other [facility] Other 04-27-2022 15:15-0400Body mass index (BMI) [Ratio] 38.74 kg/j9Fwgpovyisel Greene Other [facility] Other 04-27-2022 15:15-0400Body tthegdhyvml16.2 [degF]Celestina Ramona Other [facility] Other 04-27-2022 15:15-0400Body iudaox900.47 kgPayisel Greene Other [facility] Other 04-27-2022 15:15-0400Diastolic blood bmaoemld87 mm[Hg] Celestina Ramona Other [facility] Other 04-27-2022 15:15-0400Respiratory rate18 /minPayisel Ramona Other [facility] Other 04-27-2022 15:15-8569EtT9% (BldA) [Mass fraction]99 % Celestina Ramona Other [facility] Other 04-27-2022 15:15-0400Systolic blood qragztbg908 mm[Hg] Celestinajcalros Greene Other [facility] Other 03-15-2022 15:30-0400Body .8 cmTondra Mapus Other [facility] Other 03-15-2022 15:30-0400Body mass index (BMI) [Ratio] 40.89 kg/d3Fvhyoc [facility] Other [employer] Other 03-15-2022 15:30-0400Body .28 kgTondra Mapus Other [facility] Other 03-15-2022 15:30-0400Diastolic blood xdsmbiva14 mm[Hg] Tondra Mapus Other [facility] Other 03-15-2022 15:30-0400Respiratory rate20 /minTondra Mapus Other [facility] Other 03-15-2022 15:30-4490JtV5% (BldA) [Mass fraction]95 % Tondra Mapus Other [facility] Other 03-15-2022 15:30-0400Systolic blood uqlidkdr097 mm[Hg] Tondra Mapus Other [facility] Other 12-08-2021 16:15-0500Body uovshq590.8 cmTondra Mapus Other [facility] Other 12-08-2021 16:15-0500Body mass index (BMI) [Ratio] 40.89 kg/r5Dxcofo Mapus Other [facility] Other 12-08-2021 16:15-0500Body oqevrr721.28 kgTondra Mapus Other [employer] Other 12-08-2021 16:15-0500Diastolic blood dlozfzdt65 mm[Hg] Tondra Mapus Other [facility] Other 12-08-2021 16:15-0500Respiratory rate20 /minTondra Mapus Other [facility] Other 12-08-2021 16:15-3307XyH6% (BldA) [Mass fraction]97 % Tondra Mapus Other [facility] Other 12-08-2021 16:15-0500Systolic blood jhnsgtto855 mm[Hg] Tondra Mapus Other [facility] Other 09-22-2021 15:00-0400Body .8 cmTondra Mapus Other [facility] Other 09-22-2021 15:00-0400Body mass index (BMI) [Ratio] 39.81 kg/g9Vezxku Mapus Other [facility] Other 09-22-2021 15:00-0400Body .87 kgTondra Mapus Other [facility] Other Encounters Encounter DateEncounter TypeCare ProviderFacilityStart: 02-10-2025 End: 59-07-2925egcixylpxyOaxesxut Ball DO Work Phone: [facility]: 02-10-2025 End: 74-08-1974Rehttbm encounter procedureJustin Delano Rosario DO-[facility] Work Phone: Start: 02-04-2025 End: 19-86-2410vaxgtzvrlpNbxgfour Ball DO Work Phone: [facility] 02-04-2025 End: 33-25-9865Divdfwg encounter procedureBenjorge Aceves DO-[facility] Work Phone: Start: 11-27-2024 End: 84-12-6990ateoqvfoawBmqtuxpe Ball DO Work Phone: [facility] [place] Work Phone: Start: 11-27-2024 End: 67-49-9083Yesfpeq encounter procedureYamilex Nba Bull [facility] Work Phone: Start: 10-23-2024 End: 35-62-0055rbuhgnitphTcmvzbch Ball DO Work Phone: [facility] [place] Work Phone: Start: 10-23-2024 End: 14-34-6309Ieunigd encounter procedureBejorge Aceves DO-[facility] Work Phone: Start: 10-23-2024 End: 20-68-9525Wiqfjwa encounter statusBejorge Aceves [facility]: 12-57-1062Ona-patient / Non-visitOutside Provider-[facility] Work Phone: Start: 08-21-2024 End: 55-56-0061eqseqjkxzgUmlpjhuhcE[facility] Work Phone: Start: 08-21-2024 End: 15-36-0448Zmuylif encounter procedureSt. [facility] Work Phone: Start: 48-44-5646Ayq-patient / Non-visitFirelands [facility] Work Phone: Start: 07-12-2024 End: 19-47-4917pvqevwugwaGTQIUT MOUKACleveland Clinic [facility] Start: 05-15-2024 End: 13-85-5418ywmcxignzvAjliviebmAvita Health [facility] Work Phone: Start: 05-15-2024 End: 67-14-1677Xlwodpt encounter procedureSt. [facility] Work Phone: Start: 04-23-2024 End: 98-62-5616tmeahllctoSzzibrcmxAv[facility] Work Phone: Start: 04-23-2024 End: 98-69-6069Zaksgdq encounter procedureSt. [facility] Work Phone: Start: 02-07-2024 End: 86-84-4400nvmtuatpfiCifjutszfAvita Health [facility] Work Phone: Start: 02-07-2024 End: 61-85-5459Qkoqhtf encounter procedureSt. [facility] Work Phone: Start: 48-10-8142kyymdcbhysFRRFSSCBarnesville Hospitaltart: 18-55-2681Nbd-patient / Non-visit [facility] Work Phone: Start: 01-15-2024 End: 66-47-8562Fqltlpakt encounterJada Wilkins APRN.CNP Work Phone: UrologyStart: 11-01-2023 End: 25-88-0500rlddnqnecjJqxihpbdkAvita [facility] Work Phone: Start: 11-01-2023 End: 92-40-9804Ytkvrpf encounter procedureSt. [facility] Work Phone: Start: 10-18-2023 End: 85-91-5958yxodayschwKrqljrxmlAv[facility] Work Phone: Start: 10-18-2023 End: 22-36-4375Tomequidv for general adult medical examination without abnormal findingsCrystal Clinic Orthopedic Centertart: 10-18-2023 End: 48-63-9578Fzgeblb encounter procedureSt. [facility]ician GroupMer[facility] Work Phone: Start: 60-88-5699Ebfanndvi encounterJada Wilkins APRN.CNP Work Phone: UrologyStart: 09-13-2023 End: 14-72-5498numbsafgldVdmzeql W Angermeier MD Work Phone: UrologyStart: 09-13-2023 End: 73-95-4082Jwnztay encounter procedureJian Alberto MD Work Phone: UrologyComment on above:Acquired buried penis (Primary Dx); Scarring of penisStart: 08-04-2023 End: 98-68-4001Crwqbvg encounter procedureGiovanni Mulligan MD Work Phone: UrologyComment on above:Acquired buried penis (Primary Dx)Start: 08-04-2023 End: 39-94-0644cqcctwgzumVENSTD SANTIAGOFacility:[address] Hospitaltart: 07-28-2023 End: 17-32-0402ybahcsrakuSWIYNDIMarin ALBERTOFacility:[facility] Start: 66-30-5733Vza-patient / Non-visitSt. 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; Chronic systolic CHF (congestive heart failure) (HCC); Paroxysmal atrial fibrillation (HCC); Gastroesophageal reflux disease, unspecified whether esophagitis present; Type 2 diabetes mellitus with other specified complication, with long-term current use of insulin (HCC); Class 2 obesity due to excess calories without serious comorbidity with body mass index (BMI) of 39.0 to 39.9 in adultStart: 26-74-8579Rkjkyadyc for other preprocedural examinationFAHAD [facility] CenterStart: 65-05-6344Yxacaoqxk encounterNoy Mary RN Work Phone: UrologyComment on above:[employer]eter - OtherStart: 07-11-2023 End: 47-72-8880uxnevonhjeGeyjvbxtcElyria Memorial Hospital Work Phone: Start: 07-11-2023 End: 00-13-9819Sororgq encounter procedureDevika Physician GroupMercy Health – [facility] Work Phone: Start: 06-21-2023 End: 34-23-3211Mmotowf encounter procedureCritical Access Hospitalnoam Physician GroupANN [facility] Work Phone: Start: 06-19-2023 End: 01-96-0028rtxcgzrtnzGMOJM RIAD M.D.Facility:[address] Hospitaltart: 06-19-2023 End: 40-35-4273Veosatp encounter Lauri Colmenares MD Work Phone: CardiologyComment on above:Coronary artery disease involving angoon coronary artery of angoon heart, unspecified whether angina present (Primary Dx); History of non-ST elevation myocardial infarction (NSTEMI); Hx of CABG; Primary hypertension; Other hyperlipidemiaStart: 88-08-3997Mod-patient / Non-visitOscarinova [facility] Phys[facility] GroupOd[facility] Professional Me Work Phone: Start: 76-84-1646Eybbhqdbb encounterNoy Mary RN Work Phone: UrologyComment on above:[employer] Mail Marketer - OtherStart: 05-03-2023 End: 43-95-6752otmbciypwfCllflkz W Angermeier MD Work Phone: UrologyStart: 05-02-2023 End: 80-79-7061swmtqhuclkMbyjgdj Calvalyse Other noPLAYSTUDIOS Other Start: 35-57-9216Asrzgo outpatient visit 10 minutes Yarelis CalveyFPG Malini OrthopedicsStart: 05-02-2023 End: 84-41-2370Ctpejql encounter procedureDO Fahad Aceves Work Phone: [employer] Physician [facility]-Start: 04-19-2023 End: 54-55-4197izsgprstbvSgcbpezb Yola Other noPLAYSTUDIOS Other Start: 26-40-2830Omjiju outpatient visit 25 minutes Fahad AcevesPres[facility] Medical ClinicStart: 04-19-2023 End: 41-54-5960Nkmhmii encounter procedureDO Fahad Aceves Work Phone: [employer]Al[employer] Physician [facility] Work Phone: Start: 03-30-2023 End: 05-26-3529zbdomjzwamXvhfqsu Neeta Other [facility] [employer] Other Start: 86-50-0609Bbihmwcxh encounterColleen CalvalyseFPG Referral CoordinatorStart: 03-28-2023 End: 50-20-5354phrizyxcedWrwtwdb Calvalyse Other noStorwize Other Start: 86-52-9325Bmlqxf outpatient visit 15 minutes Yarelis CalveyFPG [facility] OrthopedicsStart: 03-22-2023 End: 04-27-8978gpvijmrgifBTNKDP K MAPUSFacility:EU RickkStart: 03-22-2023 End: 64-29-3505Gtdwddf encounter procedureGregbrandt BUSH [facility] Start: 03-08-2023 End: 24-25-4013Kskyvgqtkc RecurringDO Fahad Aceves Work Phone: [facility] Work Phone: Start: 03-08-2023(DM) DiabetesTondra MapusFirelands Coordinated Care ClinicStart: 03-08-2023 End: 55-29-5556pyaolnosqkNT Fahad Aceves Work Phone: noScreen [employer] Other Start: 03-08-2023 End: 38-03-9444Kunkril encounter procedureDO Fahad Aceves Work Phone: [facility] Work Phone: Start: 02-22-2023 End: 83-47-8979sesqdiqzocCwmjgmu Calvey Other [facility] [employer] Other Start: 32-21-4560Zpqyrx outpatient visit 15 minutes Yarelis Nayak OrthopedicsStart: 01-20-2023 End: 02-48-8718ilfemjybwqGycdipbg Ball Other noScreen [employer] Other Start: 57-35-8046Tsvhoj outpatient visit 15 minutes Fahad Ace[facility] ClinicStart: 12-09-2022 End: 90-80-4211oaksbfbzocEojwut Mapus Other [facility] [employer] Other Start: 53-80-9990Pmdytkuko encounterTondra Palomo [facility] Coordinated Care ClinicStart: 31-83-8841gkpgcgxtniRLQRAB MAPUS [facility]: 11-24-2022(DM) DiabetesTondra MapusFirelands Coordinated Care ClinicStart: 11-24-2022 End: 85-87-9453mbzwinpjpuOhuyly Mapus Other noPLAYSTUDIOS Other Start: 55-18-6260Whmwjfxsw encounterTondra ElidaG EndocrinologyStart: 10-17-2022 End: 57-48-1353uvkwewvbpbZhfgsbih Ball Other noPLAYSTUDIOS Other Start: 46-20-6192Wujtmrqer for general adult medical examination without abnormal findingsFahad Aceves Medical ClinicStart: 90-41-6915Ytosfazh preventive med est patient 40-64yrsBenjorge Aceves Medical ClinicStart: 42-58-7435rfnptevolsWX FAHAD BALLFacility:T3Sctdm: 08-24-2022 End: 02-99-1431duihzumhmjNODQW D [facility]OSPITALFacility:R1Mwdrq: 08-22-2022(DM) DiabetesTondra MapusFirelands Coordinated Care ClinicStart: 08-22-2022 End: 96-74-6969utlztdnagaMwvxjx Mapus Other noPLAYSTUDIOS Other Start: 07-18-2022 End: 76-60-9550oidsdjaqabGbvgsxmn Ball Other noPLAYSTUDIOS Other Start: 54-72-7772Xdwsjo outpatient visit 15 minutes Fahad Rosalinda Aceves Medical ClinicStart: 05-19-2022(DM) DiabetesTondra Mapus [facility] ClinicStart: 05-19-2022 End: 28-41-0338lroqmfgxdyEhtyhv Mapus Other noPLAYSTUDIOS Other Start: 05-04-2022 End: 48-30-6286kaibpopjdpTplvibfh Ball Other noPLAYSTUDIOS Other Start: 61-14-9841Enskwf outpatient visit 25 minutes Fahad Aceves [facility] ClinicStart: 04-19-2022 End: 49-85-7893fmsbjeyiwnDM FAHAD BALLFacility:W0Ailpo: 04-05-2022 End: 23-86-7969wekhhfxfojQW FAHAD BALLFacility:O9Eyady: 03-30-2022 End: 28-96-7352hdtyrfsxsjGR FAHAD BALLFacility:D0Yofxr: 02-24-2022 End: 47-44-8371vveljbgmuqCH FAHAD BALLFacility:K4Gjfft: 02-17-2022 End: 96-94-1479xotwqbkgvzVD FAHAD BALLFacility:V5Odnig: 02-16-2022 End: 24-54-5795wuynqtcgpeQT FAHAD BALLFacility:S3Zjvey: 02-14-2022 End: 86-99-0885hzibfgskysAeocdd Mapus Other [employer] Other Start: 56-76-1901Scyfvjobf encounterTondra MapusFPG EndocrinologyStart: 02-11-2022 End: 17-21-5491nkljnpuzdaEZ Fahad Aceves Work Phone: [facility] Work Phone: Start: 02-11-2022 End: 47-23-5317Uhxsybo encounter procedureDO Fahad Aceves Work Phone: [facility]-Lab Main CampusStart: 02-10-2022 End: 16-21-9827iopeeubmplCT SIMBA TSAIRBELFacility:C9Dwknv: 02-01-2022 Registered RecurringDO Fahad Aceves Work Phone: [facility] Start: 02-01-2022 End: 20-30-7861tdjothuukdDgsxkn Mapus Other [facility] Other Start: 36-46-8524Pxkbgwdik encounterTondra MapusFPG EndocrinologyStart: 53-03-0648xiqiaiwnilEM FAHAD BALLFacility:E6Pnjqh: 12-31-2021 End: 48-92-4688yxdolbofmkWSFQCNX D KATKOFacility:O9Yzvcv: 59-02-3457uzvtfkjofo PETER D HIGHLANDERFacility:D2Bynuu: 11-15-2021 End: 55-55-8104exzkkjmlcpUZ FAHAD BALLFacility:H7Ledwm: 10-29-2021 End: 51-40-7872ygecvpudgwCR FAHAD BALLFacility:J7Wctyx: 10-21-2021(DM) DiabetesTondra MapusDevika Coordinated Care ClinicStart: 10-21-2021 End: 93-15-1035pupqbpvaygAejelm Mapus Other noScreen [employer] Other Start: 09-09-2021 End: 87-21-9781zbvgdkaglaMXVPP D ERIKANDERFacility:S1Tnofu: 08-11-2021 End: 17-31-9871tvzvxsiqajNmkasn Dymond Other noScreen [employer] Other Start: 40-62-5238Aenklv outpatient visit 25 minutes Celestina [facility] ClydeStart: 06-29-2021(DM) DiabetesTondra Bull [facility] Care ClinicStart: 06-29-2021 End: 68-59-5690obfsammtpxSmjpqk Mapus Other noScreen [employer] Other Start: 05-12-2021 End: 46-58-7511ykciwuxtacLpkabx Mapus Other noPLAYSTUDIOS Other Start: 03-17-7243Jfhjkwtgu encounterTondra Palomous [facility] ClinicStart: 05-04-2021 End: 13-23-9455bszzsgyihrWrqeka Mapus Other noPLAYSTUDIOS Other Start: 57-04-0729Kcrpvqppa encounterTondra Bull [facility] ClinicStart: 03-24-2021(DM) DiabetesTondra Bull [facility] ClinicStart: 03-24-2021 End: 60-19-9894tsegnhqizcQqitfj Mapus Other Nort [employer] Other Start: 69-50-1313Mcwwsly evaluation of patient and reportYamilex [facility] Procedures DateProcedureProcedure DetailPerforming ClinicianStart: 29-64-2618HE lumbar spine 2-3V*Fahad Aceves DO Work Phone: Start: 31-77-7790Nbz routine ecg w/least 12 lds i&r onlyLigia Colmenares MD Work Phone: Start: 27-87-8095Kbxtv dip stick/tablet rgnt auto w/o microscopyBulk Order ProviderStart: 81-74-5380Thqrvrqh artery bypass grafts x 5 Antonia BUSH Coronary artery bypass graftBenjorge Aceves Other History of coronary artery bypass graftingHx of CABG Ligia Colmenares MD Work Phone: Plan of Treatment DateCare ActivityDetailAuthorStart: 62-56-8296WN Controlled (<130/80)BP Controlled (<130/80)[facility] Centertart: 62-41-3519DZ Controlled (<130/80)BP Controlled (<130/80)[facility] Centertart: 02-14-2024 End: 96-46-4998Eftmoug encounter /30/2024 10:15 AM EDT Office Visit Urology [address] [address] Jian Alberto MD [address] [place] [address] 5 month f/u ED per cc chartUrologyComment on above:5 month f/u ED per cc chart Start: 58-68-3066Klbxkluwsf A1c efhpftlctjzCsU9WOaxndcnpe ClinicStart: 71-02-1483Qwtyn-19 Vaccine ( season)Covid-19 Vaccine ( season)[facility] Centertart: 63-61-5772Zijcjlhbf vaccinationWayne Hospital Start: 66-57-6299Rhmijlxnrr Health ScreeningBehavioral Health ScreeningCincinnati Children's Hospital Medical Centertart: 95-72-5057Lembwmabgw AssessmentDepression AssessmentCinc[facility] Hospital Medical Centertart: 20-48-6178Cwbzofyhk B surface antibody levelLDL Cholesterol [facility] Centertart: 35-04-4123Rtfqu-19 Vaccine ( season)Covid-19 Vaccine ()[facility] Centertart: 55-34-7008Rcnobdtrx vaccinationInfluenza Vaccine (#1)[facility] Centertart: 93-38-1713Suvjagkjnn A1c rbtkmpihlxhXkY2PMfifankoa ClinicStart: 78-80-8993FKR Vaccine (1 - 1-dose 60+ series)RSV Vaccine (1 - 1-dose 60+ series)[facility] Centertart: 89-47-0483PAZ Vaccine (1 - Risk 60-74 years 1-dose series)RSV Vaccine (1 - Risk 60-74 years 1- dose series)[facility] Centertart: 52-67-5713Wktduzjh specific antigen measurementProstate Cancer Screening DiscussionC[facility] Hospital Medical Centertart: 01-11-2012 Shingrix Vaccine (1 of 2)Shingrix Vaccine (1 of 2)[facility] Centertart: 72-34-5807Ecxsqdlxo for malignant neoplasm of colonC[facility] Hospital Medical Centertart: 16-16-1342Aifbn microalbumin profileDTaP,Tdap,Td Vaccine (1 - Tdap)[facility] Centertart: 63-35-6530Zaugbm PCP Team Chronic Disease VisitAnnual PCP Team Chronic Disease VisitCincinnati [facility]'s Hospital Medical Centertart: 31-12-6234Ujingjq ScreeningAnxiety ScreeningCinc[facility] Medical Centertart: 99-56-7422Lzddtawwix ScreeningDepression ScreeningC[facility] Medical Centertart: 33-17-9286Nebqpvnxe C screeningHepatitis C ScreeningCinc[facility] Medical Centertart: 83-45-6263PMO screeningHIV ScreeningCinc[facility]'s [facility] Medical Centertart: 93-32-4680Bypbwgpg foot examinationDiabetic Foot ExamC[facility] Medical Centertart: 61-47-0893Iottypea screeningDilated Retinal ExamWayne Hospital Start: 90-04-5572Lyfcjhkhj B screeningUrine Albumin:Creatinine RatioCinc[facility]'s Hospital Medical Centertart: 78-21-7495Dlkevymgwamo vaccinationPneumococcal Vaccine (1 of 2 - PCV)[facility] Centertart: 77-09-0397Kcyag-19 Vaccine (#1)Covid-19 Vaccine (#1) [facility] HospitalComprehensive metabolic 2000 panel - Serum or PlasmaAvita Health SystemPatient EducationSelect Medical [facility] Work Phone: URINALYSIS, REFLEX MICROSCOPICURINALYSIS, REFLEX MICROSCOPIC Lab Routine Screening for genitourinary condition Ordered: 09/13/2023[facility] Work Phone: comment on above:Ordered: 09/13/2023XR Hip - left 2 [facility] CenterXR Lumbar spine 2 or 3 [facility] Immunizations Immunization DateImmunizationNotesCare LkxmqvwoAirvjdgt70-50-2819XHWPL-08 Pfizer (bivalent)Fahad Aceves Other [facility]12-07-2021COVID-19 Vaccine Pfizer - Documentation Purposes OnlyBejorge Aceves Other [facility]04-19-2021COVID-19 Vaccine Pfizer - Documentation Purposes OnlyBenjorge Aceves Other [facility]03-29-2021COVID-19 Vaccine Pfizer - Documentation Purposes OnlyBenjorge Ball Other [facility] Payers DatePayer CategoryPayerPolicy [id number] Health InsuranceMAIN [facility] UMR CHOICE PLUS [id number] 2015-Present [phone] [address] [address] [place] [address] O [id number] 2.16.840.1.162824.3.57[id number] 2.16.840.1.537001.3.57[id number] 2.16.840.1.370375.3.57[id number] 2.16.840.1.746511.3.57[id number] 2.16.840.1.894034.3.57[id number] 2.16.840.1.242786.3.57[id number] 2.16.840.1.049736.3.57[id number] 2.16.840.1.794616.3.57[id number] 2.16.840.1.949769.3.57[id number] 2.16.840.1.249852.3.57[id number] 2.16.840.1.720947.3.57[id number] 2.16.840.1.780659.3.57[id number] 2.16.840.1.871259.3.57[id number] 2.16.840.1.880178.3.57[id number] 2.16.840.1.500655.3.579.2.33359-76-2077Waof-tct 4zj15597-h414-8705-n1c4-193pp[id number] 2.1[id number] 2.16.840.1.8[id number] 2.16.840.1.613193.3.579.2.531 Social History DateTypeDetailFacilityUnknown if ever smokedNorth Tradeos Other Start: 05-03-2023 End: 32-05-8877Rng [facility]: 21-90-7296Awc [facility]igned At [facility]: 03-22-2023 End: 89-32-8322Dicbifk smoking statusNever smoked tobacco (finding)[facility] Hospitaltart: 88-25-1914Aclgyxe use and exposureSmokeless tobacco non-userC[facility]innati [facility]'s Hospital Medical Centertart: 05-03-2023 End: 54-56-4493Asdtjji of Social functionCincinnati Children's Hospital Medical Centertart: 46-42-2283Kpp Assigned At BirthNot on fileCincinnati Children's Hospital Medical Centertart: 07-27-2023 End: 55-95-3006Bgzokth intakeCurrent drinker of alcohol (finding)[facility] Centertart: 04-23-2024 End: 08-38-4551QdtKatm (finding)[facility] Medical Equipment Procedure CodeEquipment CodeEquipment Original TextEquipment IdentifierDates Functional Status UbloWszxszosfzLhotvqGaxxrjrs88-86-8580Qxwbjdqbuq StatusN/AExec[facility] Clinical Notes 01-06-2021 to 11-27-2024 Note Date & NaepEphzCwyxbiid27-63-3838 Evaluation note* Diagnosis Onset Date Resolution Status Admit Date BMI 37.0-37.9, adult acuteAugust 2024 3:59pmDietary counseling and surveillanceacuteAugust 2024 3:59pmMixed hyperlipidemiaacuteAugust 2024 3:59pmVitamin B 12 deficiencyacuteAugust 2024 3:59pmHTN (hypertension)deletedAugust 2024 3:59pmType 2 diabetes mellitusdeletedAugust 2024 3:59pmAccidental fallacuteOctober 2024 9:04amLow back painacuteOctober 2024 9:04am Pain in joint involving left pelvic region and thighacuteOctober 2024 9:04am [facility] Work Phone: 1(795) 322-123808-13-2025 Evaluation note* Diagnosis Onset Date Resolution Status Admit Date BMI 37.0-37.9, adult acuteAugust 2024 3:59pmDietary counseling and surveillanceacuteAugust 2024 3:59pmMixed hyperlipidemiaacuteAugust 2024 3:59pmVitamin B 12 deficiencyacuteAugust 2024 3:59pmHTN (hypertension)deletedAugust 2024 3:59pmType 2 diabetes mellitusdeletedAugust 2024 3:59pmAccidental fallacuteOctober 2024 9:04amLow back painacuteOctober 2024 9:04am Pain in joint involving left pelvic region and thighacuteOctober 2024 9:04amAvascular necrosis of bone of left hipacuteOctober 2024 8:56am [facility] Work Phone: 1(508) 902-154807-09-2025 Evaluation note* Diagnosis Onset Date Resolution Status [...] 2024 3:59pmType 2 diabetes mellitusdeletedAugust 2024 3:59pm [facility] Work Phone: 1(630) 589-196405-07-2025 Evaluation note* Diagnosis Onset Date Resolution Status [...] antigen)noneactiveJuly 2024 3:43pm Wellness examinationnoneactiveJuly 2024 3:43pm [facility] Work Phone: 1(742) 702-349103-28-2025 NoteUT Cardiology - [facility] Subjective Caden Wills is a 64 y.o. year old male patient being seen for 1 year follow up. Patient had Echo. Patient states he has no new complaints. Patient Active Problem List Diagnosis Chest pain NSTEMI (non-ST elevated myocardial infarction) ([facility]/HCC) Obesity Diabetes mellitus, type II, insulin dependent (CMS/HCC) Respiratory insufficiency Hypomagnesemia Hypertension Hyperlipidemia Postoperative atrial fibrillation (CMS/HCC) Coronary artery disease involving angoon coronary artery of angoon heart without angina pectoris Chronic systolic heart failure (CMS/HCC) History of coronary artery bypass graft Acquired buried penis Erectile dysfunction associated with type 2 diabetes mellitus (CMS/HCC) Scarring of penis Anticoagulated Balanoposthitis GERD (gastroesophageal reflux disease) Hidden penis Phimosis Type 1 diabetes ([facility]/HCC) Family History Problem Relation Name Age [...] Behavior is cooperative. Judgmen (more content not included)...[facility] 04-23-2024 Evaluation note* Diagnosis Onset Date Resolution [...] 2 diabetes mellitusdeleted May 15, 2024 4:00pm [facility] Work Phone: 1(823) 919-932610-23-2024 Evaluation note* Diagnosis Onset Date Resolution Status [...] 2 diabetes mellitus with hyperglycemiaacuteJanuary 2024 3:40pm [facility] Work Phone: 1(101) 493-186010-08-2024 NoteI was available for discussion and questions prior to patient visit. Plan was discussed prior to implementation and I was present for delivery of the plan. I agree with the assessment and plan and have modified the documentation as necessary. Caroline Silva PharmD Cardiology Outpatient Clinical Pharmacist 01/23/24[facility]10-08-2024 NotePatient contacted clinic and updated labs were reviewed with patient. Stated he has been having leg pain (for 2-3 years); discussed high-risk of PAD due to severe CAD and DM. Will relay information to Dr. Kasper and discuss possibility of DVT/PAD work-up with imaging. Will continue to follow-up with patient regarding above issues. Caroline Silva PharmD Cardiology Outpatient Clinical Pharmacist 01/23/24[facility]10-08-2024 NotePharmacist Visit - Lipid Phone Consult Provider: Dr. Kasper Department: [facility] Cardiology SUBJECTIVE/OBJECTIVE Caden Wills is [...] visit for 01/23. Opal Peña, PharmD, PGY1 Supervisor Dumping 01/23/24 [place] [facility]iologyOur [facility]09[facility]30-2024 Telephone encounter Note* Telephone Encounter - Jada Wilkins APRN.CNP - 01/15/2024 2:53 PM EDT See previous telephone encounter from 10/04/2023. Keflex has been on auto refill, and [facility] has already been asked to cancel this request. Jada Wilkins APRN.CNP [facility] Work Phone: 1(429) 791-221609-30-2024 Telephone encounter Note* Telephone Encounter - Jada Wilkins APRN.CNP - 01/15/2024 2:53 PM EDT ----- Message from Kourtney Sena sent at 01/15/2024 9:13 AM EDT ----- Regarding: Refill medication [facility] [place] [facility]ed over a refill request for Cephalexin - it is not on his current med list. Please advise and thank you, Kourtney [facility]09-30-2024 Miscellaneous Notes* Telephone Encounter - Jada Wilkins APRN.CNP - 01/15/2024 2:53 PM EDT See previous telephone encounter from 10/04/2023. Keflex has been on auto refill, and [facility] has already been asked to cancel this request. Jdaa Wilkins APRN.CNP * Telephone Encounter - Jada Wilkins APRN.CNP - 01/15/2024 2:53 PM EDT ----- Message from Kourtney Sena sent at 01/15/2024 9:13 AM EDT ----- Regarding: Ref[facility] medication [facility] [place] [facility] a refill request for Cephalexin - it is not on his current med list. Please advise and thank you, Kourtney documented in this encounterWayne Hospital09-30-2024 NotePharmD Cardiology Consult - Lipids Provider: Dr. Kasper Department: [facility] Cardiology Caden Wills is a [...] for PCSK9. Rx will be sent to [facility] to determine coverage and provide [...] Caroline Silva PharmD Cardiology Outpatient Clinical Pharmacist 01/15/2024[facility]09-30-2024 NotePatient returned call; will complete labs by end of the week. Requested call back on Sunday 01/21 for follow-up. Orders placed. Caroline Silva PharmD Cardiology Outpatient Clinical Pharmacist 01/16/2024[facility]06-19-2024 Telephone encounter Note * Telephone Encounter - Jada Wilkins APRN.CNP - 10/04/2023 4:24 PM EDT Keflex was prescribed for 1 month after buried penis surgery on 07/28/2023. Called Caedn Wills. He reports trying to cancel refill request for [facility] with [facility] but was unsuccessful. Denies concerns about infection. Reminded him that he should follow up with Dr. Alberto in the fall. Left voicemail at [facility] in [place], advising that Caden A Elio does NOT need refill on Keflexand asking them to take it off auto refill. Jada Wilkins APRN.CHUY [facility] Work Phone: 1(365) 276-364806-19-2024 Miscellaneous Notes* Telephone Encounter - Jada Wilkins APRN.CNP - 10/04/2023 4:24 PM EDT Keflex was prescribed for 1 month after buried penis surgery on 07/28/2023. Called Caden Wills. He reports trying to cancel refill request [facility] but was unsuccessful. Denies concerns about infection. Reminded him that he should follow up with Dr. Alberto in the fall. Left voicemail at [facility] in [place], advising that Caden A Elio does NOT [...] and thank you, Kourtney documented in this encounterWayne Hospital06-19-2024 Telephone encounter Note * Telephone Encounter - Jada Wilkins APRN.CNP - 10/04/2023 4:18 PM EDT ----- Message from Kourtney Hodge Patient Service Spec sent at 10/04/2023 7:36 AM EDT ----- Regarding: Medication refill [facility]ill request for Cephalexin 500 mg- it is not listed in his med list . Please advise and thank you, Kourtney [facility]05-29-2024 NoteHNO ID: [id number] Author: JIAN ALBERTO MD Service: ? Author [...] tablet Take 20 mEq by mouth. omega 1-nyx-dny-fish oil (FISH OIL) 100-160-1,000 mg cap Take 1,000 mg by mouth. No current facility-administered medications on file prior to visit. DATA/OR LABS TO BE REVIEWED: (Simple=1 data point; Complex= 2 or more) No results found for: PSA Creatinine (mg/dL) Date Value 07/29/2023 0.71 07/28/2023 0.75 07/27/2023 0.73 No results found for: TESTOST Noy Mary bank representative Staff Note: I performed a face to [...] in the fall for recheck. Jian Alberto, [facility]05-29-2024 History of Present illness Narrative* Jian [...] tablet Take 20 mEq by mouth. omega 0-sqv-vtb-fish oil (FISH OIL) 100-160-1,000 mg cap Take 1,000 mg by mouth. No current facility-administered medications on file prior to visit. DATA/OR LABS TO BE REVIEWED: (Simple=1 data point; Complex= 2 or more) No results found for: PSA Creatinine (mg/dL) Date Value 07/29/2023 0.71 07/28/2023 0.75 07/27/2023 0.73 No results found for: TESTOST Noy Mary, bank representative Staff Note: I performed a face to [...] recheck. Jian Alberto MD documented in this encounterWayne Hospital05-29-2024 NotePatient Outreach (UROLMN) CADEN WILLS ([id number]) 1960 M Date Time Provider Department 09/13/23 JIAN ALBERTO During your visit today, we recorded the following information about you: Allergies As of Date: 09/13/2023 (No Known Allergies) Date Reviewed: 09/13/2023 Reviewed by: Rafal Mulligan MA - Fully Assessed Visit Diagnosis:Screening for genitourinary condition [Z13.89] Order(s):URINALYSIS, REFLEX MICROSCOPIC [[id number]] Order #: [id number] Prescriptions as of 09/18/2023 - amiodarone (PACERONE) [...] Take 20 mEq by mouth. - omega 2-lsm-qrx-fish oil (FISH OIL) 100-160-1,000 mg cap Take [...] excess calories without *07/27/2023 Encounter Status:Closed by StarMobile Edison PharmaceuticalsUSER on 09/18/23[facility] 08-04-[facility] History of Present illness Narrative* Giovanni [...] & Prosthetic Surgery Fellow documented in this encounterWayne Hospital04-19-2024 NoteHNO ID: [id number] Author: GIOVANNI MULLIGAN MD Service: ? Author [...] MD Male Genitourinary Reconstruction AND Prosthetic Surgery FellowCleveland Clinic Children'S Hospital [facility]04-13-2024 NoteHNO ID: [id number] Author: GRAZYNA PURDY MD Service: Urology Author Type: Resident Type: Progress Notes Filed: 07/29/2023 08:41 Note Text: [facility] UROLOGY PROGRESS NOTE Name: Caden Wills Bed: Main - Periop OR/Main - * Date: 07/29/2023 After Hours [facility] Urology Service Pager: [phone] ASSESSMENT AND PLAN Caden Wills is a [...] SSI inpatient Grazyna Purdy MD Urology Resident [facility] [place] Pager [phone] For weekend or after hours issues [place] [phone] 6:53 AM 07/29/2023 Subjective SUBJECTIVE - See [...] 182* 82 Imaging All relevant recent imaging reviewedC[facility]04-12-2024 NoteHNO ID: [id number] Author: JUICE GEE MD Service: Urology Author Type: Resident Type: Progress Notes Filed: 07/28/2023 16:17 Note Text: [facility] UROLOGY PROGRESS NOTE Name: Caden Wills Bed: Main - Periop OR/Main - * Date: 07/28/2023 After Hours [facility] Urology Service Pager: [phone] ASSESSMENT AND PLAN Caden Wills is a [...] SSI inpatient Juice Gee MD Urology Resident [facility] Pager [phone] For weekend or after hours issues please page the on-call urology pager [phone] 07/28/2023 4:16 PM Subjective SUBJECTIVE - See [...] 182* 82 Imaging All relevant recent imaging reviewedC[facility]04-[facility]-2024 NoteHNO ID: [id number] Author: JEFFY MARTINEZ SRNA Service: ? 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, arm band and care team primary care physician Staffing Anesthesiologist: Chilango Curiel MD SRNA: Jeffy [...] July 28, 2023 TIME: 10:48 AM CSN: [id number] Clinic [facility]04-11-[facility] Instructions* Patient Instructions* Kevin Goldsmith APRN.CUBING MACHINE TENDER - 07/27/2023 1:04 PM EDT PATIENT PREOPERATIVE INSTRUCTIONS Dr. Alberto has scheduled you for your procedure at this surgery center: Main [place] Scheduling Office: [phone] [place] [address]. Please read below carefully for your personalized [...] not take the day of surgery omega 6-jlp-lpt-fish oil (FISH OIL) 100-160-1,000 mg cap Do [...] or other anticoagulants without consulting with your hazardous waste management specialist or prescribing physician. - Stop Vitamin E, [...] Procedures: - YOU MUST HAVE A RESPONSIBLE CORNER BLOCK CUTTER TAKE YOU HOME. A ORGAN TUNER OR SOLID STATE TESTER CANNOT BE MADE A RESPONSIBLE CORNER BLOCK CUTTER. - We recommend that a responsible person [...] call the Monday before. Your surgeon s health care analyst will tell you what time to call the office. - If you have not reached the departmental health care analyst by 5 P.M., call [phone] after 5 P.M. the day before your surgery. Please be aware that emergency situations arise, which may delay or change your surgical time. If this happens, we will notify you as soon as possible and regret any inconvenience. If you already have an Advance Directive, please fax a copy to [phone] or email to for it to be [...] day. Kevin Goldsmith APRN.CNP documented in this encounterWayne Hospital04-11-2024 History and physical note * Kevin [...] artery disease involving coronary bypass graft of [place] heart without angina pectoris CAD, hx of NH s/p CABG x 5 in Dec 2021. [...] cardiac events (< 1% chance of , NH, CHF, malignant ventricular arrhythmias or high grade [...] note 06/19/23 notes the following, Echo 03/30/22 ([facility]) - Global LV systolic function is [...] have a large neck STOP-Bang Score: 5 [id number] Score: Age: <65 Sex: male CHF history: Yes Hypertension history: Yes Stroke/TIA/thromboembolism history: No Vascular disease history: Yes Diabetes history: Yes [id number] Score: 4 ARISCAT Score: Age: 51-80 Preoperative [...] Artery Disease Involving Coronary Bypass Graft of [place] Heart Without Angina Pectoris Chronic Systolic Chf [...] 20 mEq by mouth. Taking Yes omega 3-cet-deg-fish oil (FISH OIL) 100-160-1,000 mg cap Take [...] 414 QTC Calculation (Bazett) 440 Calculated P [employer] 53 Calculated R [employer] 20 Calculated T [employer] 86 Impression NORMAL SINUS RHYTHM LOW VOLTAGE QRS NONSPECIFIC ST ABNORMALITY ABNORMAL ECG Confirmed by LIGIA COLMENARES M.D. ([id number]), material expeditor Juan MTitus nicoleie ([id number]) on 06/19/2023 2:11:39 PM 03/30/2022 Echo- [facility] Global LV systolic function is [...] 2:46 PM PAGER/CONTACT #: documented in this encounterWayne Hospital04-02-2024 Miscellaneous Notes* Telephone Encounter - Noy Mary RN - 07/18/2023 3:38 PM EDT Called and spoke to Caden Wills regarding pre op issues. Instructed patient to take last dose of Farxiga on 07/23. Informed patient that his case is currently scheduled as first round with a 6:[address] [facility]. States that he will be going home after pre ops on 07/26 and coming back the following day. No other questions or concerns expressed. Noy Mary RN documented in this encounterWayne Hospital03-04-2024 History of Present illness Narrative* Ligia Colmenares MD - 06/19/2023 1:00 PM EST Images from the original note were not included. [facility] [place] Rob Borden Department of Cardiovascular Medicine SECTION [...] furniture (8.00 METs). 12/06/2022 Robyn Miller Cardiology- [facility] HPI Pleasant 62-year-old man with [...] 1 tablet by mouth every afternoon. omega 7-xqy-nlb-fish oil (FISH OIL) 100-160-1,000 mg cap Take [...] JVD, carotids well felt, no bruits. CARDIAC: Raymond palpable in the 5th intercostal space mid [...] reviewed from the reports only: 03/30/2022 Echo- [facility] Global LV systolic function is [...] upper normal limits in size. 01/07/2022 CABGx5- [facility] CABG X 5; CPB; LEFT LEG VEIN HARVEST; INTRAOP FREDI Coronary artery bypass grafting x5, AGARWAL to LAD, saphenous vein graft to diagonal and obtuse marginal branches, and saphenous vein graft to PDA and right posterolateral ventricular branch. 01/05/2022 Cardiac Cath- [facility] Mid RCA lesion is 99% [...] infiltrated over the right radial artery. A 6-Azeri Terumo Glidesheath slender was placed in right radial artery. Radial anti-vasospasm cocktail of verapamil 2.5 mg and nitroglycerin 200 mcg was administered through the sheath. All catheter exchanges were made over the [employer] guidewire. JL3.5 was used to engage the [...] cardiac events (< 1% chance of , NH, CHF, malignant ventricular arrhythmias or high grade [...] the patient follows up with an outside hazardous waste management specialist. 5. Diabetes mellitus: Managed by PCP. 6. [...] follow up visit. Ligia Colmenares MD, FAC, [facility] CC: To use this Smartlink, specify the provider ID whose address you want to display, e.g., .PROVADDR[1 (where 1 is the provider ID). documented in this encounterWayne Hospital03-04-2024 NoteHNO ID: [id number] Author: LIGIA COLMENARES MD Service: ? Author Type: Physician Type: Progress Notes Filed: 06/19/2023 13:23 Note Text: [facility] [place] Rob Borden Department of Cardiovascular Medicine SECTION [...] furniture (8.00 METs). 12/06/2022 Robyn Miller Cardiology- [facility] HPI Pleasant 62-year-old man with [...] 1 tablet by mouth every afternoon. omega 1-tyf-jvx-fish oil (FISH OIL) 100-160-1,000 mg cap Take [...] JVD, carotids well felt, no bruits. CARDIAC: Raymond palpable in the 5th intercostal space mid clavicular line, (more content not included)...[facility]02-28-2024 Miscellaneous Notes * Telephone Encounter - Noy Mary RN - 06/14/2023 10:03 AM EST error documented in this encounterWayne Hospital02-28-2024 Miscellaneous Notes* Telephone Encounter - Noy Mary RN - 06/14/2023 9:44 AM EST Called Caden Wills and LVM to confirm surgery date of 07/[address] Alberto. Discussed pre op testing on 07/26 in [place], or he could make two trips. Asked him to confirm Asked patient to confirm receipt, and voice any questions or concerns. Number provided. Noy Mary RN documented in this encounterWayne Hospital01-17-2024 NoteHNO ID: [id number] Author: JIAN ALBERTO MD Service: ? Author Type: Physician Type: Progress Notes Filed: 05/03/2023 14:28 Note Text: [facility] NEW PATIENT HISTORY AND PHYSICAL EXAM PATIENT INFO: Caden Wills 63 year old REFERRING M.D.: Antonia Bush MD [address] [address] This consult was requested by Dr. Bush for an opinion regarding buried penis and erectile dysfunction, and my final recommendations will be communicated to the requesting health care provider by way of the shared medical record for internal providers or letter via the [employer] for external providers. 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 , interested in future sexual life. MEDICATIONS: [...] excision of the sc (more content not included)...[facility]01-17-2024 NotePatient Outreach (UROLMN) CADEN WILLS ([id number]) 1960 M Date Time Provider Department 05/03/23 JIAN ALBERTO During your visit today, we recorded the following information about you: Allergies As of Date: 05/03/2023 (No Known Allergies) Date Reviewed: 05/03/2023 Reviewed by: Claudia Burt OCCA - Fully Assessed Visit Diagnosis:Screening for genitourinary condition [Z13.89] Order(s):URINALYSIS, REFLEX MICROSCOPIC [[id number]] Order #: [id number]. #:[id number] Prescriptions as of 05/08/2023 - metFORMIN ER [...] tablet by mouth every afternoon. - omega 5-fuy-hbu-fish oil (FISH OIL) 100-160-1,000 mg cap Take 1,000 mg by mouth. - bumetanide (BUMEX ORAL) Take by mouth. Problem List As Of Date 05/03/2023 Noted Resolved Acquired buried penis [N48.83] 05/03/2023 Scarring of penis [N48.6] 05/03/2023 Erectile dysfunction associated with type 2 beverley*05/03/2023 Encounter Status:Closed by [employer], PRODUSER on 05/08/23[facility] 05-02-2023 Evaluation note* Encounter Date Diagnosis Assessment Notes Treatment Notes Treatment Clinical Notes Apr, Subungual hematoma o f finger of right hand, initial encounter (ICD- 10 - S60.10XA) Patient instructed on washing with soap and applying ointment to help soften remaining callused area. Progress activity as tolerated [facility] Other 01-03-2024 Evaluation note* Encounter Date Diagnosis [...] are maintaining regular scheduled appts with their hazardous waste management specialist. Post operative AF Amiodarone and Eliquis d/c [...] Referred to [facility] for evaluation and treatment [facility] Other 12-12-2023 Evaluation note* Encounter Date Diagnosis Assessment Notes Treatment Notes Treatment Clinical Notes Mar, Subungual hematoma o f finger of right hand, initial encounter (ICD- 10 - S60.10XA) Patient instructed on washing with soap and applying ointment to help soften scab area. [facility] Other 12-06-2023 Hospital Discharge instructions Patient Education [...] Follow these instructions at home: Medicines Take nxms-vdb-mxbuutz and prescription medicines only as told by [...] provider. Document Revised: 06/30/2021 Document Reviewed: 06/30/2021 [employer] Patient Education 2022 [employer] Follow Up Care 11/25/2022 08:22:24 With:ROXANN BARR, Antonia Sharma, URL Address: [address] [place] [address]- When: Unknown [facility] 11-22-2023 Evaluation note* Encounter Date Diagnosis Assessment [...] Feb,MI 39.0-39.9,adult (ICD-10 - Z68.39) see above [facility] Other 11-08-2023 Evaluation note* Encounter Date Diagnosis Assessment Notes Treatment Notes Treatment Clinical Notes Feb, Subungual hematoma o f finger of right hand, initial encounter (ICD- 10 - S60.10XA) Patient instructed to continue with daily soaking. Keep covered while at work [facility] Other 10-06-2023 Evaluation note* Encounter Date Diagnosis Assessment Notes Treatment Notes Treatment Clinical Notes Jan, Crushing injury of r ight index finger, initial encounter (ICD-10 - S67.190A) Elevated and rest. XR for FB, abscess, fx Jan,bscess of finger of right hand (ICD-10 - L02.511)Warm soaks and elevate. Begin antibiotics. Jan,Type 2 diabetes mellitus with hyperglycemia (ICD-10 - E11.65) Increases risk of serious infection. [facility] Other 08-25-2023 Evaluation note* Encounter Date Diagnosis Assessment Notes Treatment Notes Treatment Clinical Notes Nov, Type 2 diabetes mellitus with hy perglycemia (ICD-10 - E11.65) [facility] Other 08-14-2023 Reason for visit NarrativeTKM - REFERRAL UROLOGY - NEED TO INFORM PATIENT 11/28/22[facility] Other 08-10-2023 Evaluation note* Encounter Date Diagnosis [...] dysfunction (ICD-10 - N52.9) referral to urology [facility] Other 08-10-2023 Evaluation note* Encounter Date Diagnosis Assessment Notes Treatment Notes Treatment Clinical Notes Nov, Erectile dysfunction (ICD-10 - N 52.9) [facility] Other 07-03-2023 Evaluation note* Encounter Date Diagnosis [...] are maintaining regular scheduled appts with their hazardous waste management specialist. No bleeding complications Oct,Type 2 diabetes mellitus [...] antigen) (ICD-10 - Z12.5)Yearly LADAN and PSA [facility] Other 05-08-2023 Evaluation note* Encounter Date Diagnosis Assessment Notes Treatment Notes Treatment Clinical Notes August, Type 2 diabetes mellitus with hy perglycemia (ICD-10 - E11.65) 1. Controlled, a Type 2 diabetes with A1c of 6.5% 2. Blood glucose levels according to EpiBone 2 cgm download 08/09/22-08/22/22: Avg glucose 157. [...] last visit, continue with weight loss efforts [facility] Other 04-03-2023 Evaluation note* Encounter Date Diagnosis Assessment Notes Treatment Notes Treatment Clinical Notes Jul, ASHD (arteriosclerotic heart dis ease) (ICD-10 - I25.10) This patient is stable without activity related CP, dyspnea or lightheadedness. They are instructedto continue exercise and AHA diet plan. Instructed to continue exercise 2-3x weekly. After completiong CR plans on continuing at [facility] Jul,rimary hypertension (ICD-10 - I10)This patient [...] (coronary artery bypass graft) (ICD-10 - Z95.1) [facility] Other 02-02-2023 Evaluation note* Encounter Date Diagnosis Assessment Notes Treatment Notes Treatment Clinical Notes May, Type 2 diabetes mellitus with hy perglycemia (ICD-10 - E11.65) 1. Controlled, a Type 2 diabetes with A1c of 6.9% 2. Blood glucose levels according to EpiBone 2 cgm download 05/06/22-05/19/22: Avg glucose 189. [...] many carbs while at work. He willsee hazardous waste management specialist Monday to see if he will be [...] of glucose/bp control to prevent further nephropathy [facility] Other 01-18-2023 Evaluation note* Encounter Date Diagnosis [...] may warrant EGD to r/o H. Pylori [facility] Other [id number] NotePROCEDURE: XR FOOT RT MIN 3 VIEWS [...] Electronically authenticated by: HEAVENLY LOUIS Date: 2022-02-25 06:39[facility]07-07-2022 Evaluation note* Encounter Date Diagnosis Assessment Notes Treatment Notes Treatment Clinical Notes Oct, Type 2 diabetes mellitus with hy perglycemia (ICD-10 - E11.65) 1. Uncontrolled, a Type 2 diabetes with A1c of 7.5% 2. Blood glucose levels above target. According to EpiBone 2 cgm download 10/08/21- 10/21/21: Avg [id number]. >250- 13%, >180-48%, 70-180-39%, <70-0%, <54-0%. CV [...] Oct,Vitamin B 12 deficiency (ICD-10 - E53.8) [facility] Other 04-27-2022 Evaluation note* Encounter Date Diagnosis [...] 3 days. Jul,Hematuria, unspecified (ICD-10 - R31.9) [facility] Other 03-15-2022 Evaluation note* Encounter Date Diagnosis Assessment Notes Treatment Notes Treatment Clinical Notes Jun, Type 2 diabetes mellitus with hy perglycemia (ICD-10 - E11.65) 1. Uncontrolled, a Type 2 diabetes with A1c of 7.4% 2. Blood glucose levels above target. According to EpiBone 2 cgm download 06/16/21- 06/29/21: Avg [id number]. >250- 1%, >180-38%, 70-180-61%, <70-0%, <54-0%. CV [...] 40.0-44.9, adult (ICD-10 - Z68.41) see above [facility] Other 01-18-2022 Evaluation note* Encounter Date Diagnosis Assessment Notes Treatment Notes Treatment Clinical Notes Apr, Type 2 diabetes mellitus with hy perglycemia (ICD-10 - E11.65) [facility] Other 12-08-2021 Evaluation note* Encounter Date Diagnosis Assessment Notes Treatment Notes Treatment Clinical Notes Mar, Type 2 diabetes mellitus with hy perglycemia (ICD-10 - E11.65) 1. Controlled, a Type 2 diabetes with A1c of 6.6% 2. Blood glucose levels improved from last visit. According to EpiBone 2 cgm download 03/11/21-03/24/21: Avg glucose 162. >250- 1%, >180-29%, 70-180-70%, <70- 0%, <54-0%. CV 22.5%. Reviewed download with pt. readings above target from missed meal dose or late meal dose. Discussed with pt trial lyumjev which he could take 5 minutes before meal up to 20 minutes after meal. He is agreeable, r eviewed this would take place of [employer]. He verbalizes understanding. Pt with history of [...] 40.0-44.9, adult (ICD-10 - Z68.41) see above [employer] Other 09-22-2021 Evaluation note* Encounter Date Diagnosis Assessment Notes Treatment Notes Treatment Clinical Notes Dec, Type 2 diabetes mellitus with hy perglycemia (ICD-10 - E11.65) Erwin came in today for evaluation of his Shivani report after returning to work and continuing to usethe device. Erwin is happy with the system and wants us to send a prescription to [facility] in [place]. Erwin's BG has averaged 163 for the [...] at MidNight. No further changes. 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 [facility] [employer] Other Chief complaint+Reason for visit Narrative* Reason for Visit BMI 38.0-38.9,adult Dietary counseling and surveillance Mixed hyperlipidemia Vitamin B 12 deficiency [facility] Work Phone: Evaluation + Plan noteExec[facility] Evaluation noteNo InformationNortSCI-[facility] [employer] Other Evaluation noteNo assessment information available [facility] Work Phone: Evaluation note* Diagnosis Screening for genitourinary condition Screening for other and unspecified genitourinary condition [facility]* Diagnosis Coronary artery disease involving [place] coronary artery of [place] heart, unspecified whether angina present- Primary History of non-ST elevation myocardial infarction (NSTEMI) Old myocardial infarction Hx of CABG Postsurgical aortocoronary bypass status Primary hypertension Unspecified essential hypertension Other hyperlipidemia [facility]* Diagnosis Onset Date Resolution Status BMI 39.0-39.9,adult acuteDietary counseling and surveillanceacuteMixed hyperlipidemiaacuteVitamin B 12 deficiencyacuteChronic HFrEF (heart failure with reduced ejection fraction) acuteHypertensionacuteIschemic cardiomyopathyacuteParoxysmal atrial fibrillation acuteType 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 with diabetic polyneuropathyacuteType 2 diabetes mellitus with hyperglycemiaacute [facility] Work Phone: Evaluation note* Diagnosis Pre-operative examination- Primary Preoperative examination, unspecified Primary hypertension Unspecified essential hypertension Hyperlipidemia, unspecified hyperlipidemia type Coronary artery disease involving coronary bypass graft of [place] heart without angina pectoris Chronic systolic CHF [...] note 06/19/23 notes the following, Echo 03/30/22 ([facility]) - Global LV systolic function is difficult to assess but appears preserved, estimated ejection fraction is 55 to 60%, unable to accurately evaluate wall motion abnormalities. * Assessment & Plan Note - Kevin Goldsmith APRN.CNP - 07/27/2023 2:29 PM EDT Associated Problem(s): Coronary artery disease involving coronary bypass graft of [place] heart without angina pectoris CAD, hx of NH s/p CABG x 5 in Dec 2021. [...] cardiac events (< 1% chance of , NH, CHF, malignant ventricular arrhythmias or high grade [...] BP today 114/66. documented in this encounter [facility]* Diagnosis Acquired buried penis- Primary Other specified disorder of penis documented in this encounter [facility] note* Diagnosis Acquired buried penis- Primary Other specified disorder of penis Scarring of penis Other specified disorder of penis documented in this encounter [facility] note* Diagnosis Screening for genitourinary condition Screening for other and unspecified genitourinary condition documented in this encounter [facility] note* Diagnosis Onset Date Resolution Status Chronic HFrEF (heart failure with reduce d ejection fraction) acuteHypertensionacuteIschemic cardiomyopathyacuteMixed hyperlipidemiaacuteType 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 with diabetic polyneuropathyacuteType 2 diabetes mellitus with hyperglycemiaacuteScreening PSA (prostate specific antigen)noneactive Wellness examinationnoneactive [facility] Work Phone: Evaluation note* Diagnosis Onset Date Resolution Status Chronic HFrEF (heart failure with reduce d ejection fraction) acuteHypertensionacuteIschemic cardiomyopathyacuteMixed hyperlipidemiaacuteType 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 with diabetic polyneuropathyacuteType 2 diabetes mellitus with hyperglycemiaacuteScreening PSA (prostate specific antigen)noneactive Wellness examinationnoneactiveBMI 39.0-39.9,adultacuteDietary counseling and surveillanceacuteMixed hyperlipidemiaacuteVitamin B 12 [facility] Work Phone: Evaluation note* Diagnosis Onset Date Resolution Status BMI 38.0-38.9,adult acuteDietary counseling and surveillanceacuteMixed hyperlipidemiaacuteVitamin B 12 [facility] Work Phone: Evaluation note* Diagnosis Onset Date Resolution Status Admit Date BMI 38.0-38.9,adult acuteMay 2024 4:01pmDietary counseling and surveillanceacuteMa2024 4:01pmMixed hyperlipidemiaacuteMa2024 4:01pmVitamin B 12 deficiencyacute May 2024 4:01pmHTN (hypertension)deletedAugust 21, 2024 4:01pmType 2 diabetes mellitusdeletedMa2024 4:01pm [facility] [place] Work Phone: History general Narrative - Reported* Type Description Date Medical History diabetes mellitus Medical HistoryhypertensionMedical HistorypancreatitisMedical HistoryHLPMedical HistoryR foot ulcerSurgical Historyheart stentSurgical HistoryRIGHT FOOT SECOND TOE AMPUTATED07/03Hospitalization Historysee aboveHospitalization HistoryGastric oouhor36/2017 [facility] Other HisAmbient Devices general Narrative - Reported* Type Description Date Medical History diabetes mellitus Medical HistoryhypertensionMedical HistorypancreatitisMedical HistoryHLPMedical HistoryR foot ulcerSurgical Historyheart stentSurgical HistoryRIGHT FOOT SECOND TOE AMPUTATED07/03Surgical History5 Bypass surgery [facility]12/31/2021 Hospitalization Historysee aboveHospitalization HistoryGastric jdalxq64/2017 [facility] Other HisAmbient Devices general Narrative - Reported* Type Description Date Medical History Heart failure with preserved eje ction fraction Medical HistoryAcute prostatitisMedical HistoryASHD (arteriosclerotic heart disease)Medical HistoryBalanitisMedical HistoryTransient atrial fibrillation Medical HistoryUnspecified open wound of unspecified toe(s) with damage to nail, subsequent encounterMedical HistoryType 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 with diabetic polyneuropathy, unspecified whether group home insulin useMedical HistoryLong term current use of [...] of nephrolithiasisMedical HistoryHistory of pancreatitisSurgical History LAP BWMSDRBONXNFBHX4176Yhkppsvt HistoryRIGHT FOOT SECOND TOE AMPUTATED07/03 Surgical History5 Bypass surgery [facility], CABG.4-5 [facility]12/31/2021 Surgical HistoryLHC PTCA/STENT [id number] HistoryCOLONOSCOPYHospitalization Historysee aboveHospitalization HistoryGastric taqnvd92/2017[facility]12/2021 [facility] Other Hospital course Narrative No data available for this section [facility] Progress note No data available for this section [facility] Reason for referral (narrative) Referred by: Antonia BUSH MD [facility] Remtxh for referral (narrative)* Outpatient Procedure (Routine) - ClosedSpecialtyDiagnoses / ProceduresReferred By ContactReferred To ContactUNIVERSITY [facility] Diagnoses Coronary artery disease involving [place] coronary artery of [place] heart, unspecified whether angina present History of non-ST elevation myocardial infarction (NSTEMI) Hx of CABG Primary hypertension Other hyperlipidemia Procedures ECG COMPLETE ECG ROUTINE ECG W/LEAST 12 LDS W/I&R Ligia Colmenares MD [address] [place] [address] [facility] [place] [address] [place] [address] Referral IDStatusReasonStart DateExpiration DateVisits RequestedVisits [id number] Auto-Generated Referral / [facility] [place]Reason for referral (narrative)No reason for referral information availableSelect [facility] [place] Work Phone: Chief Complaint and Reason for [...] pain/possible broken pelvis February 04, 2025 9:04am [facility] DR ACEVES LT HIP AVASCULAR NEC ROSIS WX February 10, 2025 8:56am Reason for Visit Admit Date BMI 37.0-37.9, adult November 27, 2024 3 :59pm Dietary counseling and surveillance [facility] 2024 3:59pm Mixed hyperlipidemia November 27, [...] finger of right hand (L02.511) Referral Organization [facility] C linsahil Referring Provider First Name Fahad Referring Provider Last Name Yola Referring Provider Specialty Internal Me dicine Referred Organization [facility] Malini Ortho pedics Referred Provider Yarelis Santacruz Referred Address [address] [facility],[address] Referred Provider Specialty Orthopedic S urgery Referral [...] Diagnosis 1 Erectile dysfunction (N52.9) Referral Organization [facility] Referring Provider First Name Yamilex Referring Provider Last Name Bull Referring Provider Specialty Nurse Pract itioner Referred Organization Unknown Facility Referred Provider Antonia Bush Referred Provider Specialty Urology Referral Priority Routine Referral Appointment Date 2023-03-22 General Notes Tracie Alvarado 11/15 08:20:19 AM >Spoke to Poonam and patient scheduled for [place] office on 03/22/23 at 11am at [address] in [employer]. Jenny Tracie 11/28/2022 09:35:22 AM >Text message sent to patient requesting he call me for Referral details. Tracie Alvarado 11/28/2022 12:00:13 PM >Patient returns my call and is informed of appt. Reason Left great toe wound from new work boots - appt needs to be after 2pm Diagnosis 1 Type 2 diabetes david itus with hyperglycemia (E11.65) Referral Organization [facility] Referring Provider First Name Yamilex Referring [...] [facility] Diagnoses Coronary artery disease involving [place] coronary artery of [place] heart, unspecified whether angina present History of non-ST elevation myocardial infarction (NSTEMI) Hx of CABG Primary hypertension Other hyperlipidemia Procedures ECG COMPLETE ECG ROUTINE ECG W/LEAST 12 LDS W/I&R Ligia Colmenares MD [address] [place] [address] [facility] [place] [address] [place] [address] Referral IDStatusReasonStart DateExpiration DateVisits RequestedVisits [id number] Auto-Generated Referral [id number]-Nn VisitReasonCommentsPost-Op Visit Care Teams (unrecognized sec tion [...] Role Status Dates Tona Nba Foster , LIFE ENRICHMENT DIRECTOR Attending Provider Active Start: March 08, 2023 [...] Antonia Bush [address] [place] [address] GrcdvvxnqSjcdunr48/9/23Team MemberRelationshipSpecialtyStart DateEnd Date Antonia Bush [address] [place] [address] UvgkbpqzmYavkavz54/9/23Team MemberRelationshipSpecialtyStart DateEnd Date Antonia Bush [address] [place] [address] UlghngrvuMlztnjg66/9/23 Team Status: Active Member Role Status Dates [...] Fahad Aceves DO [address] [place] [address] PCP - GeneralInternal Medicine07/18/23 Antonia Bush [address] [address] GlideabmaSiuxxms84/9/23Team MemberRelationshipSpecialtyStart DateEnd Date Fahad Aceves DO [address] [place] [address] PCP - GeneralInternal Medicine07/18/23 Antonia Bush MD [address] [address] JymldopzsLpqmyaj19/9/23Team MemberRelationshipSpecialtyStart DateEnd Date Fahad Aceves DO [address] [place] [address] PCP - GeneralInternal Medicine07/18/23 Antonia Bush MD [address] [place] [address] KqnlcnwfmLcexbwu84/9/23Team MemberRelationshipSpecialtyStart DateEnd Date Fahad Aceves DO [address] [place] [address] [facility] - [facility]07/18/23 Antonia Bush MD [address] [place] [address] BombfmrgqBioznld55/9/23Team MemberRelationshipSpecialtyStart DateEnd Date Fahad Aceves DO [address] [place] [address] PCP - [facility]07/18/23 Antonia Bush MD [address] [address] UulbzxpoiTgsjtfu75/9/23Team MemberRelationshipSpecialtyStart DateEnd Date Fahad Aceves DO [address] [place] [address] PCP - [facility]07/18/23 Antonia Bush MD [address] [address] QepdlqqirEckdpqw42/9/23 Team Status: Inactive Member Role Status Dates [...] section and content) DATE CREATED AUTHOR 08/31/2022 [facility] DATE CREATED AUTHOR AUTHOR'S ORGANIZ ATION 06/01/2023 [facility] DATE CREATED AUTHOR AUTHOR'S ORGANIZ ATION 09/19/2023 [facility] DATE CREATED AUTHOR AUTHOR'S ORGANIZ ATION 01/16/2024 [facility] DATE CREATED AUTHOR AUTHOR'S ORGANIZ ATION 07/13/2024 [facility] Source Comments (unrecognize d section and content) In the event this informatio n is protected by the Federal Confidentiality of Alcohol and Drug Abuse Patient Records regulations: The Federal rules restrict any use of the information to criminally investigate or prosecute any alcohol or drug abuse patient.[facility] HospitalIn the event this information is protected by the Federal Confidentiality of Alcohol and Drug Abuse Patient Records regulations: The Federal rules restrict any use of the information to criminally investigate or prosecute any alcohol or drug abuse patient.[facility] HospitalIn the event this information is protected by the Federal Confidentiality of Alcohol and Drug Abuse Patient Records regulations: The Federal rules restrict any use of the information to criminally investigate or prosecute any alcohol or drug abuse patient.[facility] HospitalIn the event this information is protected by the Federal Confidentiality of Alcohol and Drug Abuse Patient Records regulations: The Federal rules restrict any use of the information to criminally investigate or prosecute any alcohol or drug abuse patient.[facility] HospitalIn the event this information is protected by the Federal Confidentiality of Alcohol and Drug Abuse Patient Records regulations: The Federal rules restrict any use of the information to criminally investigate or prosecute any alcohol or drug abuse patient.[facility] HospitalIn the event this information is protected by the Federal Confidentiality of Alcohol and Drug Abuse Patient Records regulations: The Federal rules restrict any use of the information to criminally investigate or prosecute any alcohol or drug abuse patient.[facility] HospitalIn the event this information is protected by the Federal Confidentiality of Alcohol and Drug Abuse Patient Records regulations: The Federal rules restrict any use of the information to criminally investigate or prosecute any alcohol or drug abuse patient.[facility] HospitalIn the event this information is protected by the Federal Confidentiality of Alcohol and Drug Abuse Patient Records regulations: The Federal rules restrict any use of the information to criminally investigate or prosecute any alcohol or drug abuse patient.[facility] HospitalIn the event this information is protected by the Federal Confidentiality of Alcohol and Drug Abuse Patient Records regulations: The Federal rules restrict any use of the information to criminally investigate or prosecute any alcohol or drug abuse patient.[facility] HospitalIn the event this information is protected by the Federal Confidentiality of Alcohol and Drug Abuse Patient Records regulations: The Federal rules restrict any use of the information to criminally investigate or prosecute any alcohol or drug abuse patient.[facility] HospitalIn the event this information is protected by the Federal Confidentiality of Alcohol and Drug Abuse Patient Records regulations: The Federal rules restrict any use of the information to criminally investigate or prosecute any alcohol or drug abuse patient.[facility] FOR RECORDS PERTAINING TO PATIENTS WHO [...] BE BASED ON THE PRIMARY CLINICAL RECORDS. [facility]. provides no warranty or guarantee of the accuracy or completeness of information in this document.
--- OUTSIDE RECORDS SUMMARY | 2025-03-24 06:15 | XMS_ITS | Patient Health Record ---
Author Organization [facility] Address [address] [place] [address] [place] [address] Care Team Providers Care Cake Tester Name Role Phone Fahad Salinas MD Primary Care Provider Unavaila Manny Timmons Unavailable [phone] Reason For Referral No Information Medications Medication [...] due t o type 2 diabetes mellitus (598421064) Type 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 with diabetic polyneuropathy (E11.42) ActiveconfirmedProblemFoot ulcer due to type 2 diabetes mellitus (1830146926040) Type 2 diabetes mellitus with foot ulcer (E11.621)ActiveconfirmedProblem Cellulitis of right toe (6033479609)Cellulitis of right toe (L03.031)Active confirmedProblemNon-pressure chronic ulcer of other part of right foot limited to breakdown of skin (L97.511)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 with fat layer exposed (L97.512)Activeconfirmed ProblemAcquired hammer toe of right foot (1705243503392980)Other hammer toe(s) (acquired), right foot (M20.41)ActiveconfirmedProblemAcquired hammer toe of left foot (0263192869876365)Other hammer toe(s) (acquired), left foot (M20.42)Active confirmedProblemCallosity (272690877)Corns and callosities (L84)Activeconfirmed ProblemLong-term current use of drug therapy (256521417)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 of 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 hypoglycemic drugs (Z79.84)Activeconfirmed Plan Of Treatment Pending Test Test Name Order Date Wound Culture (Deep) 05/21/2018 Wound Culture (Deep) 06/04/2018 Wound Culture (Deep) 06/26/2018 Wound Culture (Deep) 08/07/2018 XR foot RT min 3V* 05/21/2018 Insurance Providers Payer Name Payer Address Payer Phone Subscriber Number Group Number Insured Name Patient Relationship to Insured Coverage Start Date Coverage End Date [facility] [address] [address] [place] [address] [id number], DouglasSelf - patient is the insured Medical (General) History Medical History History ICD Code diabetes high blood pressureSurgical History Surgery Date(Month/Year) gallbladder removed 2008 toe removal- rt foot 06/2018
--- OUTSIDE RECORDS SUMMARY | 2025-03-24 06:15 | XMS_ITS | Clinical Summary ---
Author Organization [facility] Address [address] [place] [address] Care Team Providers Care Barn Worker Name Role Phone Fahad Salinas DO Primary Care Provider [phone] Allergies Active AllergyReactionsCriticalityNoted DateCommentsEmpagliflozinUnknown 03/10/2025Icosapent DqidfAjzpung22/24/2025 Medications MedicationSigDispense QuantityRefillsLast FilledStart DateEnd DateStatus insulin [...] insulin pen PLEASE SEE ATTACHED FOR DETAILED WQOHUJQKJL16/19/2025tive spironolactone (Aldactone) 25 mg tablet Indications:Chronic systolic heart failure (CMS/HCC)TAKE 1 TABLET BY MOUTH EVERY DAY IN THE MORNING 90 tablet tive metoprolol succinate XL (Toprol-XL) 100 mg 24 hr tablet Indications:Chronic systolic heart failure (CMS/HCC),Coronary artery disease involving [place] coronary artery of [place] heart without angina pectoris, Postoperative atrial fibrillation (CMS/HCC)TAKE 1 TABLET BY MOUTH IN THE MORNING AND 1 TABLET AT BEDTIME 180 tablet tive ezetimibe (Zetia) 10 mg tablet Indications:Mixed hyperlipidemia,Coronary artery disease involving [place] coronary artery of [place] heart without angina pectorisTAKE 1 TABLET BY [...] right foot03/12/2025vascular necrosis of bone of left hip03/12/20251602Hzkabdaqcgrxn81/26/1074Ibnlbmhfk91/26/2025 Cellulitis of right toe03/12/2025ontusion of finger with damage to nail 03/12/2025rush injury of foot03/12/2025Heart failure with improved ejection fraction (HFimpEF)03/12/2025 Overview (03/12/2025): Echo: LVEF 50%, W[place], normal RV size/function - 06/2024 Ischemic rnnqplmdeubmls27/26/2025 Overview (03/12/2025): PCI/stent LAD - 2007, CABG x - 12/2021, Echo: LVEF 50%, normal RV size/function - 06/2024, Left leg pain03/12/2025Long term (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 of oral hypoglycemic drugs 03/12/2025Low back pain03/12/2025Non-pressure chronic ulcer of other part of right foot limited to breakdown of skin03/12/2025Osteoarthritis of foot, left 03/12/2025Pain in joint involving left pelvic region and thigh03/12/2025Dietary counseling and lwfgrobcnbfm71/26/2025Screening PSA (prostate specific antigen) 03/12/2025 Overview (03/12/2025): PSA: 0.52 - 01/2025 Non-pressure chronic ulcer of other part of right foot with fat layer exposed 03/12/2025Type 2 diabetes mellitus with diabetic dvypaescqsdzlb55/26/2025Type 2 diabetes mellitus with foot ulcer03/12/2025Type 2 diabetes mellitus with iiyeuaiwfvken68/26/2025Vitamin B 12 /26/2464Himwwxckdhbeom96/28/2025 Iifedtrtawfapmd06/28/2025Hidden penis07/12/20242140Fgqtfeqn55/28/2025Type 1 diabetes 07/12/2024GERD (gastroesophageal reflux disease)07/27/2023cquired buried penis /07/2023Erectile dysfunction associated with type 2 diabetes mffihyet52/07/2023Scarring of penishronic systolic heart hewhhpj4401/31/2022 Assessment & Plan (12/06/2022 4:51 PM EDT): NYHC II Continue GDMT- ASA, lipitor, farxiga, entresto, aldactone and toprol Diuretic therapy- farxiga and he remains euvolemic currently Monitor daily weights, I&O, fluid restriction 1.5-2L/day, renal function and electrolytes- History of coronary artery bypass graft01/31/2022 Assessment & Plan (12/06/2022 4:53 PM EDT): Remains stable Coronary artery disease involving [place] coronary artery of [place] heart without angina zqqejfqg31/27/2022 Assessment & Plan (12/06/2022 4:52 PM EDT): Coronary artery disease is stable without concerning symptoms Continue GDMT- asa, lipitor and toprol continue risk factor modifications- heart healthy diet, regular exercise as tolerated and continue all medications. Postoperative atrial cblvezcxiszc53/26/2022 Assessment & Plan (12/06/2022 4:52 PM EDT): resolved Diabetes mellitus, type II, insulin wlbbedzeg46/24/2022espiratory insufficiency 01/08/20220690Xreymibwfrwigx24/24/6941Llhfbwaxecaf77/24/2022 Assessment & Plan (12/06/2022 4:52 PM EDT): Hypertension is well controlled 102/63 Renal function stable Uximexyxhhgvnt40/24/2022 Assessment & Plan (12/06/2022 4:52 PM EDT): Continue statin and repeat LFT and lipid level. Xqvifdl8101/04/2022hest pain12/31/2021NSTEMI (non-ST elevated myocardial infarction)12/31/2021 Resolved Problems ProblemNoted DateDiagnosed DateResolved NyzzTlogsi80 Encounters DateTypeDepartmentCare LsrwJekjcasbrqg43/26/2025 2:00 PM ESTOffice Visit [facility] [place] [address] [place] [address] Rosa Lino CNP Coronary artery disease involving [place] coronary artery of [place] heart without angina pectoris (Primary Dx); History of coronary artery bypass graft; Pre-op evaluation; Postoperative atrial fibrillation (CMS/HCC); Heart failure with improved ejection fraction (HFimpEF) (CMS/HCC); History of myocardial infarction; Mixed hyperlipidemia; Chronic systolic congestive heart failure (CMS/HCC)01/28/2025Refill [place] [address] [place] [address] Charbel Kasper MD Chronic systolic heart failure [...] relatives?Twice a week12/31/2021How often do you attend methodist or scientologist services?1 to 4 times per year12/31/2021o you belong to any clubs or organizations such as methodist groups, unions, fraternal or athletic groups, or school groups?No12/31/2021How often do you attend meetings of the clubs or organizations you belong to?Never12/31/2021re you , , , , never , or living with a partner?Ivfcnmi0312/31/2021UDIT-C AnswerDate RecordedQ1: How often do you have [...] housing, medical care, and heating?Not hard at all12/31/2021[facility] [place] of Occupational Health - Occupational Stress QuestionnaireAnswerDate [...] steady place to sleep or slept in loriselter (including now)?No12/31/2021UT Safety & EnvironmentAnswerDate RecordedFear of Current or Ex-PartnerNot on file06/08/2023Emotionally AbusedNot on file4Physically AbusedNot on file06/08/2023Sexually AbusedNot on file06/08/2023hysically or Sexually AbusedNot on file06/08/2023Sex and Gender InformationValueDate RecordedSex Assigned at FerbdCcoe75/16/2022 10:49 PM EDT Legal KiuCblg2812/31/2021 2:52 PM EDTGender MiibtdrwErgf71/16/2022 10:49 PM EDT Sexual OrientationHeterosexual or Wzkjgotp81/16/2022 10:49 PM EDT Last Filed Vital Signs Vital SignReadingTime TakenCommentsBlood Ohcaldnf030/6703/12/2025 2:11 PM EST Speyx545003/12/2025 2:11 PM HYHMaumjqqiocg88.4 ??C (97.6 ??F)01/20/2022 1:20 PM EDTRespiratory Bpcb8509 1:20 PM EDTOxygen Nzdpqepqka29%03/12/2025 2:11 PM ESTInhaled Oxygen Concentration--Wtzltk569 kg (268 lb)03/12/2025 2:11 PM EST Aostwy747.8 cm (5' 10 )03/12/2025 2:11 PM ESTBody Mass Index38.45105/12/2024 2:11 PM EST Plan of Treatment Health MaintenanceDue DateLast DoneCommentsCT Ubhlhhykerda1962Colonoscopy 2Colorectal Cancer Exnyeifyy1962FIT-DNA1962FIT1962 FOBT0557Afrvcstrcxblz1962Diabetes: Retinopathy Iramjrwzg75/26/1972 Depression Cbzambsag42/26/1974Diabetes: Urine Protein Zzxmdieur47/26/1981 Pneumococcal Vaccine: Pediatrics (0 to 5 Years) and At-Risk Patients (6 to 64 Years) (1 of 2 - PCV)1981Adult Vyqeags1201/11/1984Zoster Vaccines (1 of 2) 01/11/2012Diabetes: Hemoglobin A1C/OVID-19 Vaccine ( season)511/, 02/12/2023, 02/24/2022, Additional history existsInfluenza DdhrkgnQgwbnbrxa25/22/2025, 03/08/2024, 02/02/2023, Additional history existsHIB VaccinesAged OutNo [...] ProblemsRecent ProgressPatient-Stated?Author Blood Pressure < 140/90 Blood Wrwuimkc703/67(03/12/2025 2:11 PM EST)Ozzie Avendano CNP Medical Devices ImplantedTypeAreaManufacturerDevice IdentifierShelf Expiration DateModel / Serial / LotStent Implanted:Qty: 3StentHeart Procedures Procedure NamePriorityDate/TimeAssociated DiagnosisCommentsHEMOGLOBIN S6WLchojgb Wpcpdhxyl85/20/2022 7:54 PM EDT from Last 3 Months or Most Recently Relevant to Health Maintenance Results * (ABNORMAL) Hemoglobin A1c (01/04/2022 7:54 PM EDT)ComponentValueRef RangeTest MethodAnalysis TimePerformed AtPathologist SignatureHemoglobin A1C6.6(H)4.0 - 6.0 %01/05/2022 1:19 PM [facility]RE[facility] ([facility])Estimated Average Glucose 142.72mg/dL01/05/2022 1:19 PM [facility] ([place])Specimen (Source) Anatomical Location / LateralityCollection Method / VolumeCollection Time Received TimeBloodVenous blood specimen / UnknownArterial Line / Unknown 01/04/2022 7:54 PM EDT01/04/2022 8:42 PM EDT Narrative Authorizing ProviderResult TypeResult StatusWaleed KassaboLAB BLOOD ORDERABLES Final ResultPerforming OrganizationAddressCity/State/ZIP CodePhone Number [facility] ([place]) [address] [place] [address] from Last 3 Months or Most Recently Relevant to Health Maintenance Insurance [address] [place] [address] Advance Directives * Full Code (Latest Code Status on File) Date ActivatedDate InactivatedComments12/31/2021 8:54 PM10 5:11 PM Care Teams Team MemberRelationshipSpecialtyStart DateEnd Date Fahad Salinas DO [address] [place] [address] PCP - General12/31/21
--- NOTE | 2025-03-24 07:01 | W.PM.OPNOTE ---
Surgery Operative Note Operative Note Procedure Date: 03/24/25 Time Out Performed: yes Pre-op Diagnosis: Left hip DJD Post-op Diagnosis: same as pre-op Procedures performed: Left total hip arthroplasty Anesthesia: spinal Estimated blood loss (mL): 100 Findings: Advanced left hip DJD Detailed description of Procedure: OPERATIVE REPORT Dominik Ballard 1960 Preoperative Diagnosis: Left hip DJD Postoperative Diagnosis: Same Procedure: Left total hip arthroplasty using posterior approach Surgeon:Rashel Rosario DO Chief Underwriter: See EMR Anesthesiologist: See EMR OR Staff: See EMR Implants: Claire G7 [place] Ti 56 mm acetabulum with high wall liner, 15 mm Taperloc press-fit stem high offset, -3 Biolox ceramic head EBL: 100 mL Complications: None Dispostion: PACU in stable condition Indications: Dominik is a 65-year-old male presenting with left hip DJD and failure of conservative treatment options. The procedure is indicated to best obtain hip stability to allow early mobilization while decreasing pain. The patient is awake and alert. After thorough discussion of the risks, benefits, expected outcomes, and alternatives to surgical intervention, the patient agreed to proceed with surgical treatment. Specific risks discussed included, but were not limited to: superficial or deep infection, wound healing complications, DVT/PE, significant bleeding requiring transfusion, damage to named anatomic structures in the immediate area including named neurovascular structures, dislocation, iatrogenic or delayed fracture, and general risks of anesthesia. The patient voiced understanding and written as well as verbal consent was obtained by myself prior to the procedure. Findings: Advanced left hip DJD Procedure Note: The patient was brought back to the OR and placed supine on the OR table. After successful induction of anesthesia by anesthesia staff, the patient was positioned in the lateral decubitus position and all bony prominences were padded appropriately; an axillary roll was also utilized. The surgical field was then provisionally cleansed and then prepped and draped in the usual sterile fashion. At this time a time-out was performed, with the correct patient, site, and procedure identified. The universal time out as well as sign your site protocols were followed. Preoperative antibiotics were verified as administered. A posterior approach to the hip was utilized. Skin incision was made and subcutaneous tissues were dissected. Attention to hemostasis was paid using electrocautery. The gluteus emma was split in line with our incision and retractors were placed. We were able to tag the piriformis and short external rotator tendons for later repair. The sciatic nerve was visualized and protected throughout the procedure. A T-shaped capsulotomy was performed and retractors were repositioned the femoral neck cut was made as templated in the femoral head was removed without difficulty; this was sized on the back table. We irrigated the acetabulum and removed debris. The acetabular labrum was then removed followed by the pulvinar. Retractors were placed around the acetabulum taking care to protect neurovascular structures. Any overlying osteophytes removed at this time. Reaming was done first until the medial wall was identified. After this we began reaming up in a 40 degree abduction with 20 degree anteversion position. We did this until sclerotic bone of been removed and a good bleeding bone bed surrounded the clock face of the acetabulum. Appropriate size trialing was done until we appreciated a nice press fit. The final acetabular shell was opened then impacted into place with appropriate abduction and anteversion. Acetabular liner was in place and impacted in position. The proximal femur was then elevated into the surgical field and appropriate retractors were placed. The box osteotome was then used, followed by a canal finder. Lateralizing reamer was then used. We began serial broaching with appropriate lateralization as well as anteversion until a solid fit with axial and rotational stability was achieved. No iatrogenic fracture was appreciated upon inspection of the calcar. The broach was used to trial, and we then relocated the hip; we trialed various head/neck combinations based off of our preoperative templating until the hip was found to be stable and length appeared appropriate. We then dislocated the trial, removed the components, irrigated the surgical site using a copious amount of sterile saline, and then placed our definitive implants into position. Once again the calcar was inspected for any iatrogenic fracture. The hip was relocated and range of motion was found to be excellent, without dislocation. We then used 500cc 0.35% Betadine/saline irrigation to thoroughly cleanse and soak the wound and this was followed by saline irrigation. The tagged tendons were repaired through drill holes in the greater trochanter, and the incisions were then irrigated using copious sterile saline and then closed in layered fashion. The surgical sites were infiltrated using local anesthetic, and the leg was sterilely cleansed and dressed. The patient was placed back into a supine position. The patient was then subsequently extubated and transferred to PACU in a stable condition. All sponge and needle counts were correct at the end of the case. I was present and participated in all aspects of the procedure. X-rays and physical exam were performed in the postoperative care unit and found to be benign Prognosis: The patient will be kept WBAT on the ipsilateral extremity with 8 weeks of posterior hip precautions. DVT prophylaxis is indicated for this patient and procedure. Antibiotic prophylaxis is given as indicated. The patient is at risk of infection, pain, instability, and more, and this was discussed with the patient postoperatively. We will obtain PT/OT evaluations with discharge planning. Plan for follow-up 2 weeks postoperatively. Rashel Rosario, Attending Doc Confirm Attending Attestation: Yes
--- NOTE | 2025-03-24 07:29 | XR_ITS ---
The [address] [address] Patient Name: CADEN WILLS MRN: [id number] date: 1960 Sex: M Assigned Patient Location: [facility] Current Patient Location: [facility] Accession/Order Number: [id number] Exam Date: 03/24/2025 10:25 Report Date: 03/24/2025 11:25 At the request of: SHAYAN OSBORN DO Procedure: XR hip LT min 2V RIGHT HIP - 2 views: CLINICAL HISTORY: Follow-up after hip replacement COMPARISON: 02/04/2025 AP and crosstable lateral views were obtained. There is a new hip prosthesis. The hardware appears intact and in appropriate position. There is no acute fracture or dislocation. There are no significant soft tissue abnormalities. XR/XR hip LT min 2V IMPRESSION: SATISFACTORY POSTOPERATIVE APPEARANCE OF LEFT HIP PROSTHESIS Impression dictated by: Shannon Parra M.D. 03/24/2025 11:25 AM Dictation Location: [place] [address] Electronically authenticated by: [id number] Y Date: 03/24/2025 11:25
--- NOTE | 2025-03-24 07:34 | XR_ITS ---
The [address] [address] Patient Name: CADEN WILLS MRN: [id number] date: 1960 Sex: M Assigned Patient Location: [facility] Current Patient Location: [facility] Accession/Order Number: [id number] Exam Date: 03/24/2025 10:25 Report Date: 03/24/2025 11:44 At the request of: SHAYAN OSBORN DO Procedure: XR pelvis 1-2V AP PELVIS: CLINICAL HISTORY: Follow-up after left hip replacement COMPARISON: 02/04/2025 There is a new left hip prosthesis. The inferior aspect of the femoral stem is not included in its entirety. Otherwise, the hardware appears intact and in appropriate position. No acute fracture or dislocation is seen. There is slight narrowing of the right hip joint space and mild marginal spurring. The SI joints are intact and there is minimal sclerosis. There is also degenerative change at the lower imaged lumbar spine. There are no soft tissue abnormalities. Atherosclerotic plaque is noted. XR/XR pelvis 1-2V IMPRESSION: NEW LEFT HIP PROSTHESIS, WITHOUT OBVIOUS COMPLICATION GIVEN POSITIONING Impression dictated by: Shannon Parra M.D. 03/24/2025 11:44 AM Dictation Location: [place] [address] Electronically authenticated by: [id number] Y Date: 03/24/2025 11:44
[2025-03-24] MEDS: TRANEXAMIC ACID 1,000 MG in 0.9 % SODIUM CHLORIDE 100 ML 440 MG IV ×2 (07:35→09:27)
[2025-03-24] MEDS: BUPIVACAINE HCL 0.25% PF 25 MG/10 ML VIAL INJ (09:29)
--- NOTE | 2025-03-24 10:18 | PC.NURSE ---
PATIENT'S TOES ARE PINK AND WARM. PATIENT IS ABLE TO MOVE BOTH TOES/FEET SLIGHTLY UPON ARRIVAL TO PACU. ICE PACK APPLIED TOM ARRIVAL TO PACU. PATIENT IS COMFORTABLE.
--- NOTE | 2025-03-24 13:42 | PC.NURSE ---
Patient up and working with Physical Therapy ambulating ambulating, getting and out of the chair and did steps so he was able to be discharged. Patient tolerated all well and was discharged at this time
--- NOTE | 2025-03-24 13:57 | SWNOTE1 ---
MELISA sent pt's operative note, discharge packet, and dc med rec to [facility]. MELISA let [place] at [facility] know that it was faxed over. Pt was set up with [facility] prior to the surgery.
== END 2025-03-24 13:30 | disposition home or self-care (01) ==
PROVIDERS: PCP Internal Medicine; Visit Provider Orthopaedic Surgery Orthopaedic Trauma
PROC: (CPT 1214; principal; 2025-03-24 07:30)
DX: M16.12 Unilateral primary osteoarthritis, left hip (principal); M87.88 Other osteonecrosis, other site; M25.552 Pain in left hip; E78.2 Mixed hyperlipidemia; E11.9 Type 2 diabetes mellitus without complications; Z79.4 Long term (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; I25.10 Atherosclerotic heart disease of native coronary artery without angina pectoris; Z79.84 Long term (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 of oral hypoglycemic drugs; Z90.49 Acquired absence of other specified parts of digestive tract; I10 Essential (primary) hypertension; I48.91 Unspecified atrial fibrillation; Z95.5 Presence of coronary angioplasty implant and graft; Z95.1 Presence of aortocoronary bypass graft; K21.9 Gastro-esophageal reflux disease without esophagitis
CPT/HCPCS: 27130; 36415; 72170; 73502; 82948; 88305; 88311; 97116; 97161; C1776; J0665; J0690; J1100; J1885; J2003; J2250; J2405; J2704; J3010